=== PATIENT | female | born 1945 | race Caucasian/White ===

== ENCOUNTER 2019-04-04 02:26 | Inpatient (IN) | payer MEDICARE, OTHER, SELFPAY ==
[2019-04-04] VITALS (12 sets, daily range): BP systolic 114–198; BP diastolic 59–116; PULSE 65–83; RESP 18–20; TEMP 36.6–36.9; O2SAT 94–98; BMI 29.0
--- NOTE | 2019-04-04 02:32 | ED_ITS ---
Entered by Jeana Ware, acting as scribe for Gareth Messina DO HPI - Abdominal Pain General: Chief Complaint: Abdominal Pain Stated Complaint: abdomen pain Time Seen by Provider: 04/04/19 02:30 Source: patient Mode of arrival: wheelchair Limitations: no limitations History of Present Illness: HPI narrative: 74 yo f came to the er with spouse for abd pain. Onset was 4 hours ago. Pt states that whole abd along with epigastic. Pt states that she has a colostomy. Pt states that she has not had much output out of the colostomy. Pt states that she has had some nausea MD elicited complaint: abdominal pain Onset (ago): hour(s) (4 hours ago) Location: Epigastric, LUQ, RUQ, RLQ and LLQ Associated Symptoms: Reports nausea and vomiting; Denies chills, dysuria, fever(s), hematochezia, hematuria and melena Review of Systems Const: Denies: fever or chills Eyes: Denies: change in vision or blurry vision ENMT: Denies: painful swallowing, swelling of lips/tongue, bleeding gums, d ental pain, Change in hearing, nose bleeds, post nasal drip or facial/sinus pain Card: Denies: chest pain, palpitations, irregular heart rhythm, edema, swelling of feet/ankles, shortness of breath on exertion or shortness of breath when lying down Resp: Denies: shortness of breath, productive cough, non-productive cough or wheezing GI: Reports: nausea and vomiting; Denies: blood in stool or black tarry stool : Denies: painful urination or blood in urine Musc: Denies: neck pain, back pain, redness or joint warmth Skin/Breast: Denies: rash, itching or redness Neuro: Denies: headache, dizziness, vertigo, confusion or seizure-like activity Psych: Denies: anxiety, visual hallucinations or auditory hallucinations PFSH ED PFSH: Statuses (acute, chronic, etc) shown below reflect problem list status as previously entered and may not be historically accurate Medical History (Updated 04/04/19 @ 05:49 by Armando Downey MD) Colonic diverticular abscess (Acute) Coronary disease (Acute) Diabetes (Acute) GERD (gastroesophageal reflux disease) (Acute) Gout (Acute) Hypertension (Acute) Migraine (Acute) Myocardial infarction (Acute) Necrotizing fasciitis (Acute) Osteoarthritis (Acute) Pericarditis (Acute) Scleroderma (Acute) Surgical History (Updated 04/04/19 @ 05:49 by Armando Downey MD) H/O colectomy (Acute) S/P dilatation of esophageal stricture (Acute) S/P ANH-BSO (Acute) Family History (Updated 04/04/19 @ 05:50 by Armando Downey MD) Mother Congestive heart failure Social History (Updated 04/04/19 @ 05:51 by Armando Downey MD) Smoking and tobacco status: former smoker Alcohol intake: never Substance/Drug Use: never Physical Exam Const: GENERAL APPEARANCE: well developed ORIENTATION/CONSCIOUSNESS: Yes oriented to person, Yes oriented to place and Yes oriented to time HENMT: COMMON NORMALS: normocephalic, external ears normal and external nose normal HEAD & SCALP: normocephalic; no scalp tenderness FACE & SINUS: normal facial exam NOSE: external nose normal and no nasal discharge EXTERNAL EAR: Yes external ears normal Eye: COMMON NORMALS: PERRL, EOMs intact bilaterally and conjunctivae normal EYELID: eyelids normal CONJUNCTIVA: Yes conjunctivae normal PUPIL: Yes PERRL Neck/C-Spine: COMMON NORMALS: full ROM GENERAL: No tracheal deviation Chest: COMMONS NORMALS: inspection of chest normal CHEST: No tenderness Resp: COMMON NORMALS: clear to auscultation bilaterally EFFORT & INSPECTION: No tachypneic, No respiratory distress, No retractions, No uses accessory muscles and No tracheal deviation AUSCULTATION: clear to auscultation bilaterally, no rhonchi, no wheezes and lung sounds not diminished Cardio: COMMON NORMALS: regular rate and regular rhythm RATE: regular rate RHYTHM: regular rhythm HEART SOUNDS: no murmurs PERIPHERAL PULSES: radial pulses present GI: INSPECTION: Yes abdominal distension AUSCULTATION: No hyperactive bowel sounds and No hypoactive bowel sounds PALPATION: Yes tender, Yes guarding and No rigid PERCUSSION: no dullness to percussion and no tympanic to percussion : COMMON NORMALS: Yes no CVA tenderness BLADDER/KIDNEY EXAM: Yes no CVA tenderness Back/Pelvis: COMMON NORMALS: no CVA tenderness Neuro: SENSORIUM/ORIENTATION: Yes oriented to person, Yes oriented to place and Yes oriented to time Psych: COMMON NORMALS: mental status grossly normal Skin: COMMON NORMALS: no rashes or lesions noted GENERAL SKIN EXAM: no rashes or lesions noted Course ED course: 74-year-old female presents with significant belly pain, vomiting. She has a mild leukocytosis. Onset was sudden. She has a history of abdominal problems with diverticulitis requiring hemicolectomy and colostomy. No blood in the output. CT reveals multiple fluid-filled loops of small bowel with decompressed small bowel loops seen distally which could mean early obstruction. An NG tube was placed. She required multiple doses of pain and nausea medication in the ER. She will be admitted Vital Signs: Vital signs: Vital Signs Temperature 98.1 F 04/04/19 02:32 Pulse Rate 83 04/04/19 02:32 Respiratory Rate 18 04/04/19 06:10 Blood Pressure 196/78 04/04/19 06:10 Pulse Oximetry 98 04/04/19 06:10 MDM - Abdominal Pain Lab Data: Labs: Lab Results 04/04/19 04/04/19 Range/Units 02:49 02:49 WBC 10.6 H (4.0-10.0) 10^3/ uL RBC 5.44 H (4.1-5.3) 10^6/u L Hgb 16.6 H (11.5-15.3) g/dL Hct 49.4 H (37.0-47.0) % MCV 90.8 (81-99) fL MCH 30.5 (28.0-34.0) pg MCHC 33.6 (30.0-36.0) g/dL RDW 11.5 L (12.1-15.1) % Plt Count 255 (130-400) 10^3/c mm MPV 10.7 H (7.4-10.4) fL Neut % (Auto) 60.4 % Lymph % (Auto) 28.8 % Twiggs % (Auto) 7.3 % Eos % (Auto) 2.5 % Baso % (Auto) 0.5 % Neut # (Auto) 6.4 (1.8-7.7) 10^3/u L Lymph # (Auto) 3.1 (0.8-4.8) 10^3/u L Twiggs # (Auto) 0.8 (0.2-0.9) 10^3/u L Eos # (Auto) 0.3 (0.0-0.8) 10^3/u L Baso # (Auto) 0.1 (0.0-0.1) 10^3/u L Nucleated RBC % (a uto) 0 % Nucleated RBCs # 0.0 /100WBC Sodium 142 (136-145) mmol/L Potassium 3.7 (3.5-5.1) mmol/L Chloride 98 (98-107) mmol/L Carbon Dioxide 28 (22-29) mmol/L Anion Gap 19.7 H (5-19) BUN 16 (8-23) mg/dL Creatinine 0.9 (0.5-0.9) mg/dL Glucose 206 H (74-106) mg/dL Calcium 11.0 H (8.5-10.5) mg/dL Total Bilirubin 0.8 (0.15-1.2) mg/dL AST 19 (0-32) U/L ALT 13 (0-33) U/L Alkaline Phosphata se 75 (35-105) IU/L Total Protein 7.8 (6.6-8.7) g/dL Albumin 4.9 (3.5-5.2) g/dL Globulin 2.9 (1.3-4.6) g/dL Lipase 27 (13-60) U/L Imaging Data ^: CT Abd/Pel: Radiologist's impression: [place] [address] CT Scan Report Signed Patient: Ninoska Duffy #: [id number] : 7At#:[id number] Age/Sex: 74 / FADM Date: 04/04/19 Loc: ERRoom/Bed: Attending Dr: Ordering Provider/Ordering MD: Gareth Messina DO Date of Service: 04/04/19 Procedure(s): CT abdomen pelvis w con* [id number] Accession Number(s): [id number] Report Number: [id number] PROCEDURE INFORMATION: Exam: CT Abdomen And Pelvis With Contrast Exam date and time: 04/04/2019 4:05 AM Age: 74 years old Clinical indication: Nausea and vomiting; Abdominal pain; Acute; Prior surgery; Surgery date: 6+ months; Surgery type: Cholecystectomy, appendectomy, hysterectomy, colostomy, hernia repair. ; Additional info: Abd pain TECHNIQUE: Imaging protocol: Computed tomography of the abdomen and pelvis with intravenous contrast. Total DLP: 1127.95 mGy-cm Radiation optimization: All CT scans at this facility use at least one of these dose optimization techniques: automated exposure control; mA and/or kV adjustment per patient size (includes targeted exams where dose is matched to clinical indication); or iterative reconstruction. Contrast material: OMNI 300; Contrast volume: 95 ml; Contrast route: 20G; COMPARISON: CT abdomen pelvis w con* [id number] 01/20/2018 9:26 PM FINDINGS: Mediastinum: There is a small hiatal hernia present. Liver: Normal. No mass. Gallbladder and bile ducts: Status post cholecystectomy. There is intra and extrahepatic biliary dilatation, the common bile duct measuring 12.4 mm in its midportion tapering to normal caliber near the ampulla. Pancreas: Normal. No ductal dilation. Spleen: Calcifications are seen within the spleen compatible with calcified granulomas. Adrenals: Normal. No mass. Kidneys and ureters: There is a 4.2 mm hypoattenuation cystic lesions seen in the left kidney likely representing a simple cyst. Stomach and bowel: There is a colostomy seen in the left anterior flank. There are nondilated fluid-filled loops of small bowel seen within the abdomen, findings could represent ileus. Some desiccated bowel contents are seen within loops of small bowel in the lower abdomen possibly representing small bowel stasis and enteritis as well. There is several decompressed loops of small bowel seen distally. A partial small bowel obstruction cannot be entirely excluded. Appendix: No evidence of appendicitis. Intraperitoneal space: Unremarkable. No free air. No significant fluid collection. Vasculature: Unremarkable. No abdominal aortic aneurysm. Lymph nodes: Unremarkable. No enlarged lymph nodes. Bladder: Unremarkable as visualized. Reproductive: Unremarkable as visualized. Bones/joints: Unremarkable. No acute fracture. Soft tissues: Unremarkable. CT/CT abdomen pelvis w con* [id number] IMPRESSION: 1. There are nondilated fluid-filled loops of small bowel present within the abdomen, findings could represent ileus. Additionally, there are several loops of nondilated small bowel containing desiccated bowel contents, findings that may represent small bowel stasis. There are decompressed small bowel loops seen distally as well and a partial small bowel obstruction cannot be entirely excluded. 2. Tiny simple appearing left renal cyst measuring 4.2 mm. No further workup needed. 3. Small hiatal hernia 4. Stable colostomy seen in the left anterior flank. COMMENT: Consistent with the [employer]'s Incidental Findings Committee white paper (J Am Patricia Radiol 2018): Any incidental cystic renal lesion classified in this report as too small to characterize or simple appearing is likely a benign cyst. No follow-up imaging is recommended for these lesions per consensus recommendations based on imaging criteria. Radiation Dose CTDIVOL = (mGy): DLP = 1127.95 (mGy-cm) Dictated By:Jann Morrison MD Signed By:Jann Morrison MDSigned Date/Time:04/04/19500 DD/ 050 Discharge Plan Discharge Patient Disposition: Admitted As Inpatient Admit Provider: Armando Downey Clinical Impression: Small bowel obstruction Condition: Stable Referrals: Sharita Benjamin MD [Family Provider] - Discharge Date/Time: 04/04/19 06:35 Coding Level of Care Code ED Steward/Stewardess Deck for Chg Fwd The documentation recorded by the Chaz elise Stephanie Lyn, accurately reflects the service I personally performed and the decisions made by Siddharth prado Jeremy John, DO Apr 04, 2019 02:26
--- NOTE | 2019-04-04 02:45 | CTR_ITS ---
PROCEDURE INFORMATION: Exam: CT Abdomen And Pelvis With Contrast Exam date and time: 04/04/2019 4:05 AM Age: 74 years old Clinical indication: Nausea and vomiting; Abdominal pain; Acute; Prior surgery; Surgery date: 6+ months; Surgery type: Cholecystectomy, appendectomy, hysterectomy, colostomy, hernia repair. ; Additional info: Abd pain TECHNIQUE: Imaging protocol: Computed tomography of the abdomen and pelvis with intravenous contrast. Total DLP: 1127.95 mGy-cm Radiation optimization: All CT scans at this facility use at least one of these dose optimization techniques: automated exposure control; mA and/or kV adjustment per patient size (includes targeted exams where dose is matched to clinical indication); or iterative reconstruction. Contrast material: OMNI 300; Contrast volume: 95 ml; Contrast route: 20G; COMPARISON: CT abdomen pelvis w con* [id number] 01/20/2018 9:26 PM FINDINGS: Mediastinum: There is a small hiatal hernia present. Liver: Normal. No mass. Gallbladder and bile ducts: Status post cholecystectomy. There is intra and extrahepatic biliary dilatation, the common bile duct measuring 12.4 mm in its midportion tapering to normal caliber near the ampulla. Pancreas: Normal. No ductal dilation. Spleen: Calcifications are seen within the spleen compatible with calcified granulomas. Adrenals: Normal. No mass. Kidneys and ureters: There is a 4.2 mm hypoattenuation cystic lesions seen in the left kidney likely representing a simple cyst. Stomach and bowel: There is a colostomy seen in the left anterior flank. There are nondilated fluid-filled loops of small bowel seen within the abdomen, findings could represent ileus. Some desiccated bowel contents are seen within loops of small bowel in the lower abdomen possibly representing small bowel stasis and enteritis as well. There is several decompressed loops of small bowel seen distally. A partial small bowel obstruction cannot be entirely excluded. Appendix: No evidence of appendicitis. Intraperitoneal space: Unremarkable. No free air. No significant fluid collection. Vasculature: Unremarkable. No abdominal aortic aneurysm. Lymph nodes: Unremarkable. No enlarged lymph nodes. Bladder: Unremarkable as visualized. Reproductive: Unremarkable as visualized. Bones/joints: Unremarkable. No acute fracture. Soft tissues: Unremarkable. CT/CT abdomen pelvis w con* [id number] IMPRESSION: 1. There are nondilated fluid-filled loops of small bowel present within the abdomen, findings could represent ileus. Additionally, there are several loops of nondilated small bowel containing desiccated bowel contents, findings that may represent small bowel stasis. There are decompressed small bowel loops seen distally as well and a partial small bowel obstruction cannot be entirely excluded. 2. Tiny simple appearing left renal cyst measuring 4.2 mm. No further workup needed. 3. Small hiatal hernia 4. Stable colostomy seen in the left anterior flank. COMMENT: Consistent with the [employer]'s Incidental Findings Committee white paper (J Am Patricia Radiol 2018): Any incidental cystic renal lesion classified in this report as too small to characterize or simple appearing is likely a benign cyst. No follow-up imaging is recommended for these lesions per consensus recommendations based on imaging criteria. Radiation Dose CTDIVOL = (mGy): DLP = 1127.95 (mGy-cm)
[2019-04-04] MEDS: HYDROmorphone 1 mg/mL INJ 1 mL IVP ×3 (02:51→05:18)
[2019-04-04] MEDS: ondansetron 2 mg/ML SDV 2 mL 4 MG IVP ×2 (02:51→04:09)
[2019-04-04 02:52] LABS: Basophils # 0.1 10^3/uL (0.0-0.1); Basophils % 0.5 %; Eosinophils # 0.3 10^3/uL (0.0-0.8); Eosinophils % 2.5 %; Hematocrit 49.4 % (37.0-47.0); Hemoglobin 16.6 g/dL (11.5-15.3); Lymphocytes # 3.1 10^3/uL (0.8-4.8); Lymphocytes % 28.8 %; Mean Corpuscular HGB Conc 33.6 g/dL (30.0-36.0); Mean Corpuscular Hemoglobin 30.5 pg (28.0-34.0); Mean Corpuscular Volume 90.8 fL (81-99); Mean Platelet Volume 10.7 fL (7.4-10.4); Monocytes # 0.8 10^3/uL (0.2-0.9); Monocytes % 7.3 %; Neutrophils # 6.4 10^3/uL (1.8-7.7); Neutrophils % 60.4 %; Nucleated Red Blood Cells % 0 %; Platelet Count 255 10^3/cmm (130-400); Red Blood Count 5.44 10^6/uL (4.1-5.3); Red Cell Distribution Width 11.5 % (12.1-15.1); White Blood Count 10.6 10^3/uL (4.0-10.0)
[2019-04-04] MEDS: sodium chloride 0.9% 1,000 ML 999 ML IV (02:52)
[2019-04-04 03:11] LABS: Alanine Aminotransferase 13 U/L (0-33); Albumin Level 4.9 g/dL (3.5-5.2); Alkaline Phosphatase 75 IU/L (35-105); Anion Gap 19.7 (5-19); Aspartate Amino Transferase 19 U/L (0-32); Blood Urea Nitrogen 16 mg/dL (8-23); Carbon Dioxide 28 mmol/L (22-29); Chloride 98 mmol/L (98-107); Globulin 2.9 g/dL (1.3-4.6); Glucose 206 mg/dL (74-106); Lipase 27 U/L (13-60); Potassium 3.7 mmol/L (3.5-5.1); Sodium 142 mmol/L (136-145); Total Bilirubin 0.8 mg/dL (0.15-1.2); Total Protein 7.8 g/dL (6.6-8.7)
[2019-04-04] MEDS: iohexol 300 mg/mL 100 mL Btl IV (04:35)
[2019-04-04] MEDS: promethazine 25 mg/mL SDV 1 mL IM (05:10)
--- NOTE | 2019-04-04 05:42 | PM.HP ---
Providers/Chief Complaint Chief Complaint: abdomen pain History of Present Illness Anju Duffy is a 74 year old female who carries diagnosis of extensive abdominal surgeries, scleroderma, diverticular abscess status post colectomy (further complicated with necrotizing fasciitis) came in with chief complaint of abdominal pain nausea and vomiting. Patient is stating that for last 1 to 2 weeks she was experiencing epigastric discomfort, she took Tums which relieved her symptoms to some extent, she has been trying to drink a lot of fluid along with laxatives and stool softeners and tries to monitor output from her colostomy. Last night after she ate cereal around 6 PM she started having sudden onset of epigastric pain followed with nausea and vomiting x5. She also noticed that output from her colostomy bag is less liquidy in consistency and it is smaller in quantity (he normally empties 5-6 times a day). She denies any dysuria, chest pain, shortness of breath. Her last admission was also secondary to partial small obstruction and at that time lactulose flushed from colostomy and helped relieve her symptoms. Diagnostics in ER showed partial ileus with desiccated stool and small bowel. Currently patient has NG tube, no active symptoms of abdominal pain or vomiting She is hypertensive Review of Systems Const: Denies: fever, chills, body aches, change in appetite or change in weight Eyes: Denies: change in vision ENMT: Reports: throat pain Card: Denies: chest pain Resp: Denies: shortness of breath GI: Reports: abdominal pain, nausea, vomiting, cramping and change in stool character; Denies: vomiting blood, coffee grounds in vomit, difficulty swallowing or constipation : Denies: flank pain Musc: Denies: neck pain Skin/Breast: Denies: rash Neuro: Denies: headache Psych: Denies: anxiety Endo: Denies: excessive urination Juan Francisco/Lymph: Denies: easy bruising All/Imm: Denies: hives Medications/Allergies Allergies Allergy/AdvReac Type Severity Reaction Status Date / Time Latex, Natural Rubber Allergy ALGY-Rash Verified 04/04/19 02:39 PFSH Acute PFSH: Statuses (acute, chronic, etc) shown below reflect problem list status as previously entered and may not be historically accurate Medical History (Updated 04/04/19 @ 05:49 by Armando Downey MD) Colonic diverticular abscess (Acute) Coronary disease (Acute) Diabetes (Acute) GERD (gastroesophageal reflux disease) (Acute) Gout (Acute) Hypertension (Acute) Migraine (Acute) Myocardial infarction (Acute) Necrotizing fasciitis (Acute) Osteoarthritis (Acute) Pericarditis (Acute) Scleroderma (Acute) Surgical History (Updated 04/04/19 @ 05:49 by Armando Downey MD) H/O colectomy (Acute) S/P dilatation of esophageal stricture (Acute) S/P ANH-BSO (Acute) Family History (Updated 04/04/19 @ 05:50 by Armando Downey MD) Mother Congestive heart failure Social History (Updated 04/04/19 @ 05:51 by Armanod Downey MD) Smoking and tobacco status: former smoker Alcohol intake: never Substance/Drug Use: never Vitals/I&O/Wt Last Vital Signs Temp 98.1 F 04/04/19 02:32 Pulse 83 04/04/19 02:32 Resp 18 04/04/19 05:18 BP 155/73 04/04/19 05:18 Pulse Ox 98 04/04/19 03:38 Weight last 48 hrs Weight 72.121 kg Physical Exam Narrative: EXAM NARRATIVE: Elderly female lying flat in her bed without any active discomfort She has NG tube without any suction in ED Systolic blood pressure 170 millimeters mercury S1, S2 Lungs are clear to auscultation Abdomen, soft, nondistended, mild tenderness around epigastric region, colostomy bag is draining semisolid stool Fungal hyperemic reaction around colostomy site Lower extremity no signs of edema gangrene or ulcer Neurological nonfocal exam EOMI, PERRLA Data : 04/04/19 02:49 04/04/19 02:49 A&P Assessment and plan (1) Partial obstruction of colon: Partial small bowel obstruction Proximal partial obstruction with desiccated stool burden and small bowel without dilated loops distally N.p.o., NG to suction Reglan Considering extensive surgical history differentials would include desiccated stool burden causing proximal obstruction versus adhesions Consult general surgery Hypertensive: Needs medication reconciliation, for now I would use hydralazine IV if systolic blood pressure is below 180mmhg Avoid DVT prophylaxis with Lovenox in case patient goes for any intervention GI prophylaxis: Protonix 40 mg IV every day Fungal hyperemia around colostomy bag: Patient is using antifungal, she does not know the name will bring her medications in few hours She needs medication reconciliation in a.m. Full code Status: Acute Code(s): K56.600 - Partial intestinal obstruction, unspecified as to cause Attestations Medical Necessity Statement*: Anticipating her stay to cross more than 2 midnights because of partial small obstruction Time Spent in Patient Care: 50 Coding Level of Care Code Acute Classroom Monitor for Tad Fwtia Diagnoses Partial obstruction of colon K56.600
[2019-04-04] MEDS: cetacaine Spray 5 gm Can 1 SPRAY TOPICAL (05:59)
[2019-04-04] MEDS: morphine 4 mg/mL SDV 1 mL IVP (08:25)
[2019-04-04] MEDS: dextrose 5%-lactated ringers 1,000 ML 100 ML IV (10:10)
[2019-04-04] MEDS: metoclopramide 5 mg/mL SDV 2 mL IVP (10:20)
[2019-04-04] MEDS: nystatin cream 30 gm 1 APPLIC TOPICAL ×2 (10:21→17:47)
--- NOTE | 2019-04-04 12:53 | PM.PN ---
Subjective Subjective: Interval history: This morning patient states that she still has some abdominal pain, has not had a bowel movement, her colostomy output has decreased, no fevers, chills, nausea, vomiting, NG tube is in place, has orange/yellow output?, States that she feels a bit better, states that she has a dry mouth Vitals/I&O/Wt Last Vital Signs Temp 98.0 F 04/04/19 07:46 Pulse 65 04/04/19 07:46 Resp 20 H 04/04/19 08:25 BP 177/79 04/04/19 07:46 Pulse Ox 98 04/04/19 07:46 Weight last 48 hrs Weight 72.121 kg Physical Exam Const: COMMON NORMALS: no apparent distress and oriented x3 HENMT: COMMON NORMALS: normocephalic HEAD & SCALP: normocephalic Neck/C-Spine: COMMON NORMALS: no JVD Resp: COMMON NORMALS: normal respiratory effort, no retractions, no use of accessory muscles and clear to auscultation bilaterally AUSCULTATION: clear to auscultation bilaterally Cardio: COMMON NORMALS: no JVD, regular rate, regular rhythm, S1 normal heart sound and S2 normal heart sound RATE: regular rate RHYTHM: regular rhythm HEART SOUNDS: S1 normal and S2 normal GI: COMMON NORMALS: soft to palpation INSPECTION: Yes normal to inspection, Yes abdominal distension and Yes ostomy present AUSCULTATION: Yes hypoactive bowel sounds PALPATION: Yes soft and Yes tender Extremity: COMMON NORMALS: normal capillary refill, no clubbing, cyanosis or edema, no calf tenderness and no pedal edema Neuro: COMMON NORMALS: oriented x3 Psych: COMMON NORMALS: mental status grossly normal Data : 04/04/19 02:49 04/04/19 02:49 A&P Assessment and plan (1) Partial obstruction of colon: Partial small bowel obstruction secondary to adhesions from previous surgeries Colostomy in place NG tube in place Plan: -Continue IV hydration -Keep n.p.o. -Pain control nausea control -Monitor NG tube output, output seems yellow-orange? seems feculent. No recent antibiotic use, no recent illness. -Can try bowel stimulants Status: Acute Code(s): K56.600 - Partial intestinal obstruction, unspecified as to cause Attestations Medical Necessity Statement*: Patient requires continued hospitalization due to partial small bowel obstruction Coding Level of Care Code Acute Centerless Grinder Operator for Chg Fwd Diagnoses Partial obstruction of colon K56.600
--- NOTE | 2019-04-04 16:08 | PC.NURSE ---
pt ngt output is orange in appearance with sediment.
[2019-04-04] MEDS: fluconazole premix 200 MG/100 ML PREMIX 100 MG IV (17:46)
[2019-04-04] MEDS: SUMAtriptan 25 mg Tablet PO (20:35)
[2019-04-05] VITALS (8 sets, daily range): BP systolic 95–136; BP diastolic 59–72; PULSE 58–72; RESP 16–20; TEMP 36.3–37.1; O2SAT 93–99
[2019-04-05] MEDS: dextrose 5%-lactated ringers 1,000 ML 100 ML IV ×2 (00:45→11:00)
[2019-04-05 05:53] LABS: Basophils % 0.4 %; Eosinophils # 0.2 10^3/uL (0.0-0.8); Eosinophils % 2.5 %; Hematocrit 42.3 % (37.0-47.0); Hemoglobin 13.8 g/dL (11.5-15.3); Lymphocytes # 2.6 10^3/uL (0.8-4.8); Lymphocytes % 31.8 %; Mean Corpuscular HGB Conc 32.6 g/dL (30.0-36.0); Mean Corpuscular Hemoglobin 30.6 pg (28.0-34.0); Mean Corpuscular Volume 93.8 fL (81-99); Mean Platelet Volume 11.4 fL (7.4-10.4); Monocytes # 0.9 10^3/uL (0.2-0.9); Monocytes % 10.7 %; Neutrophils # 4.5 10^3/uL (1.8-7.7); Neutrophils % 54.2 %; Nucleated Red Blood Cells % 0 %; Platelet Count 203 10^3/cmm (130-400); Red Blood Count 4.51 10^6/uL (4.1-5.3); Red Cell Distribution Width 11.9 % (12.1-15.1); White Blood Count 8.3 10^3/uL (4.0-10.0)
[2019-04-05] MEDS: acetaminophen-codeine 120-12 mg/5 mL UDC 2.5 ML PO (06:07)
[2019-04-05 06:14] LABS: Alanine Aminotransferase 36 U/L (0-33); Albumin Level 3.9 g/dL (3.5-5.2); Alkaline Phosphatase 67 IU/L (35-105); Anion Gap 13.5 (5-19); Aspartate Amino Transferase 36 U/L (0-32); Blood Urea Nitrogen 11 mg/dL (8-23); Calcium 9.6 mg/dL (8.5-10.5); Carbon Dioxide 30 mmol/L (22-29); Chloride 101 mmol/L (98-107); Globulin 2.3 g/dL (1.3-4.6); Glucose 127 mg/dL (74-106); Potassium 3.5 mmol/L (3.5-5.1); Sodium 141 mmol/L (136-145); Total Bilirubin 1.6 mg/dL (0.15-1.2); Total Protein 6.2 g/dL (6.6-8.7)
[2019-04-05] MEDS: hydroCHLOROthiazide 25 mg Tablet 12.5 MG PO (09:07)
[2019-04-05] MEDS: BuSPIRONE 5 mg Tablet PO ×2 (09:07→17:07)
[2019-04-05] MEDS: fluconazole 100 mg Tablet 200 MG PO (09:09)
[2019-04-05] MEDS: magnesium oxide 400 mg tablet PO ×3 (09:10→21:07)
[2019-04-05] MEDS: carvedilol 25 mg Tablet PO ×2 (09:10→17:07)
[2019-04-05] MEDS: acetaminophen 325 mg Tablet 650 MG PO (09:18)
[2019-04-05] MEDS: ondansetron 2 mg/ML SDV 2 mL 4 MG IVP (09:19)
[2019-04-05] MEDS: nystatin cream 30 gm 1 APPLIC TOPICAL ×2 (09:22→17:08)
--- NOTE | 2019-04-05 11:04 | P.PN_ITS ---
Subjective Subjective: Interval history: This morning patient states that she is doing better, abdominal pain is very minimal, no fevers, no chills, she responded well to the milk of magnesia last night, had 350 cc out from the colostomy bag, her NG tube output for the last 24 hours is 650 cc, Vitals/I&O/Wt Last Vital Signs Temp 98.7 F 04/05/19 09:26 Pulse 67 04/05/19 09:26 Resp 18 04/05/19 09:26 BP 125/64 04/05/19 09:26 Pulse Ox 93 04/05/19 09:26 04/04/19 04/05/19 04/05/19 22:59 06:59 14:59 Intake Total 1000.000 / 0145.361 1944.000 / 1500.000 Output Total 800 / 800 650 / 1450 Balance 200.000 / 200.000 -650 / -691.232 7145.000 / 1500.000 Weight last 48 hrs Weight 72.121 kg Physical Exam Const: COMMON NORMALS: no apparent distress and oriented x3 HENMT: COMMON NORMALS: normocephalic HEAD & SCALP: normocephalic Neck/C-Spine: COMMON NORMALS: no JVD Resp: COMMON NORMALS: normal respiratory effort, no retractions, no use of accessory muscles and clear to auscultation bilaterally AUSCULTATION: clear to auscultation bilaterally Cardio: COMMON NORMALS: no JVD, regular rate, regular rhythm, S1 normal heart sound and S2 normal heart sound RATE: regular rate RHYTHM: regular rhythm HEART SOUNDS: S1 normal and S2 normal GI: COMMON NORMALS: normal to inspection, nondistended, normoactive bowel sounds and soft to palpation INSPECTION: Yes normal to inspection, Yes abdominal distension and Yes ostomy present PALPATION: Yes soft and Yes tender Extremity: COMMON NORMALS: normal capillary refill, no clubbing, cyanosis or edema, no calf tenderness and no pedal edema Neuro: COMMON NORMALS: oriented x3 Psych: COMMON NORMALS: mental status grossly normal Data : 04/05/19 05:00 04/05/19 05:00 A&P Assessment and plan (1) Partial obstruction of colon: Partial small bowel obstruction secondary to adhesions from previous surgeries Colostomy in place Remove NG tube, transition to clear liquid diet Plan: -Continue IV hydration -Liquid -Pain control nausea control -Can try bowel stimulants -We will start home hydrochlorothiazide, metoprolol, flucanazole, lisinopril, BuSpar, Ambien Status: Acute Code(s): K56.600 - Partial intestinal obstruction, unspecified as to cause Attestations Medical Necessity Statement*: She requires continued hospitalization due to partial small bowel obstruction Coding Level of Care Code Acute Interior Design Assistant for Chg Fwd Diagnoses Partial obstruction of colon K56.600
--- NOTE | 2019-04-05 12:00 | PC.NURSE ---
Spoke with Dr. Sewell about patient hx diagnosis of DM II, also spoke about patient having hard small bowel out of her colostomy. New orders obtained for accu checks achs, lactulose 20ml per stoma times one.
--- NOTE | 2019-04-05 12:27 | PC.CHAP ---
Pastoral Care Encounter/Spiritual Assessment Type of Contact [] Declined dye automation operator visit [] Patient/Family/Request visit [] Outpatient visit [] Follow-up visit [] Physician referral [] Code/Alert [] Routine visit [] Staff referral [] Actively dying [] Patient sleeping [] Family support [] [] Out of room [] Palliative care [] [] Receiving care in room [] Pre-surgical visit [] Trauma [] Long length of stay [] ICU visit [] Other: Relational/Emotional Strength [x] Patient feels connected with others/family/visitors/staff [] Distress [] Loneliness/isolation [] Abandonment Spirituality of Patient [x] Person of Martha [] Attends Latter Day of their Martha [x] Believes in Prayer [] Reads Bible or Yazidi materials [] There are Spiritual issues to be addressed Powerhouse Attendant Interventions [x] Prayer [x] Active listening [x] Non-anxious presence [x] Spiritual/emotional support [] Crisis/trauma care [] Spiritual counseling [] Bereavement support [] Provided bereavement packet [] Provided Bible/devotional materials [] Provided toy/stuffed animal, coloring book to patient or family member [x] Completed spiritual assessment [] Provided Communion [] Anointing/[place] [] Salvation [] Other: Impact on Illness or Injury [] Angry [] Fearful [] Anxious [] Often cries [] Exhaustion [] Unable to work [] Unable to attend mormonism [] Unable to walk/stand [] Unable to read [] Unable to drive [] Unable to eat/drink [] Unable to sleep [] Unable to be with family [] Other: Summary Powerhouse Attendant prayed with Patient. Time spent with patient 5 minutes.
[2019-04-05] MEDS: lactulose oral liq 20 gm/30 mL UDC PR (13:23)
[2019-04-05] MEDS: magnesium hydroxide 30 mL UDC XX ×2 (16:54→21:07)
[2019-04-05] MEDS: SUMAtriptan 25 mg Tablet PO (23:19)
[2019-04-06] MEDS: dextrose 5%-lactated ringers 1,000 ML 100 ML IV (02:40)
[2019-04-06 04:00] VITALS: BP 110/64; PULSE 58; RESP 24; TEMP 36.7; O2SAT 96
[2019-04-06 06:51] LABS: Glucose Point of Care 119 mg/dL (70-110)
[2019-04-06 07:49] VITALS: BP 111/66; PULSE 62; RESP 18; TEMP 36.9; O2SAT 95
[2019-04-06] MEDS: hydroCHLOROthiazide 25 mg Tablet 12.5 MG PO (08:20)
[2019-04-06] MEDS: magnesium oxide 400 mg tablet PO (08:20)
[2019-04-06] MEDS: fluconazole 100 mg Tablet 200 MG PO (08:20)
[2019-04-06] MEDS: carvedilol 25 mg Tablet PO (08:21)
[2019-04-06] MEDS: BuSPIRONE 5 mg Tablet PO (08:23)
[2019-04-06] MEDS: magnesium hydroxide 30 mL UDC XX (08:24)
[2019-04-06] MEDS: nystatin cream 30 gm 1 APPLIC TOPICAL (08:33)
[2019-04-06 10:03] LABS: Basophils % 0.5 %; Eosinophils # 0.4 10^3/uL (0.0-0.8); Eosinophils % 6.2 %; Hematocrit 40.8 % (37.0-47.0); Lymphocytes # 1.9 10^3/uL (0.8-4.8); Mean Corpuscular HGB Conc 31.9 g/dL (30.0-36.0); Mean Corpuscular Hemoglobin 31.3 pg (28.0-34.0); Mean Corpuscular Volume 98.1 fL (81-99); Mean Platelet Volume 11.6 fL (7.4-10.4); Monocytes # 0.7 10^3/uL (0.2-0.9); Monocytes % 11.2 %; Neutrophils # 3.2 10^3/uL (1.8-7.7); Neutrophils % 51.5 %; Nucleated Red Blood Cells % 0 %; Platelet Count 172 10^3/cmm (130-400); Red Blood Count 4.16 10^6/uL (4.1-5.3); Red Cell Distribution Width 11.5 % (12.1-15.1); White Blood Count 6.3 10^3/uL (4.0-10.0)
[2019-04-06 10:18] LABS: Alanine Aminotransferase 30 U/L (0-33); Albumin Level 3.4 g/dL (3.5-5.2); Alkaline Phosphatase 64 IU/L (35-105); Anion Gap 16.3 (5-19); Aspartate Amino Transferase 27 U/L (0-32); Blood Urea Nitrogen 6 mg/dL (8-23); Carbon Dioxide 24 mmol/L (22-29); Chloride 103 mmol/L (98-107); Globulin 2.4 g/dL (1.3-4.6); Glucose 140 mg/dL (74-106); Magnesium 1.6 mg/dL (1.7-2.3); Phosphorus 3.2 mg/dL (2.5-4.5); Potassium 3.3 mmol/L (3.5-5.1); Sodium 140 mmol/L (136-145); Total Bilirubin 0.9 mg/dL (0.15-1.2); Total Protein 5.8 g/dL (6.6-8.7)
[2019-04-06 10:58] LABS: Glucose Point of Care 123 mg/dL (70-110)
[2019-04-06 11:27] VITALS: BP 104/67; PULSE 62; RESP 18; TEMP 36.4; O2SAT 96
[2019-04-06 12:28] VITALS: BP 104/67; PULSE 62; RESP 18; TEMP 36.4; O2SAT 96
--- NOTE | 2019-04-06 20:01 | PM.DCS ---
Discharge Providers Date of Admission: 04/04/19 05:53 Date of Discharge: 04/06/19 Attending Provider at Admission: Armando Downey MD Attending Provider at Discharge: Gage Sewell MD Diagnoses at Discharge Discharge Diagnosis (1) Partial obstruction of colon: Status: Acute Reason for Visit Reason for Visit: Reason For Visit: abdomen pain Hospital Course Discharge Summary: This is a 74-year-old female with a past medical history of extensive abdominal surgeries, scleroderma, diverticular abscess status post colectomy (further complicated by necrotizing fasciitis) who presents to the emergency room for the chief complaint of abdominal pain, nausea, vomiting. Patient was admitted for partial small bowel obstruction secondary to adhesions from previous surgeries, she was kept n.p.o., had an NG tube placed, received IV hydration, IV electrolytes, she received laxatives through her colostomy. Patient clinically improved, had improved output through her colostomy, NG tube output reduced, and was removed, she is transition from a clear liquid to a general diet, and did well. Patient was discharged with instructions to drink plenty of electrolyte balance fluids, continue milk of molasses 4 times daily with stool softeners twice daily. In addition she was given MiraLAX and lactulose to be used if her colostomy output were to decrease, she would have recurrent abdominal pain. Patient was advised if she were to have abdominal pain, nausea, vomiting, fevers come back to emergency room. Patient is to follow-up with surgery in 1 month. Patient was also advised to follow-up with her primary care provider in 1 month. Physical Exam Const: COMMON NORMALS: no apparent distress and oriented x3 HENMT: COMMON NORMALS: normocephalic HEAD & SCALP: normocephalic Neck/C-Spine: COMMON NORMALS: no JVD Resp: COMMON NORMALS: normal respiratory effort, no retractions, no use of accessory muscles and clear to auscultation bilaterally AUSCULTATION: clear to auscultation bilaterally Cardio: COMMON NORMALS: no JVD, regular rate, regular rhythm, S1 normal heart sound and S2 normal heart sound RATE: regular rate RHYTHM: regular rhythm HEART SOUNDS: S1 normal and S2 normal GI: COMMON NORMALS: normal to inspection, nondistended, normoactive bowel sounds, soft to palpation and non-tender INSPECTION: Yes normal to inspection and Yes ostomy present AUSCULTATION: Yes normoactive bowel sounds PALPATION: Yes soft Extremity: COMMON NORMALS: normal capillary refill, no clubbing, cyanosis or edema, no calf tenderness and no pedal edema Neuro: COMMON NORMALS: oriented x3 Psych: COMMON NORMALS: mental status grossly normal Discharge Data Data Completed and Pending: Completed Studies During Hospitalization Category Date Time Status CT abdomen pelvis w con* [id number] Urge nt Cat Scan 04/04/19 02:45 Completed Pending at discharge Category Date Time Status Clostridium Diffi cile BY PCR Routin e Lab 04/04/19 13:09 Results Enteric Bacterial Panel by PCR Rout ine Lab 04/04/19 13:09 Results Enteric Parasite Panel by PCR Routi ne Lab 04/04/19 13:09 Results Immunochemical Fe jose OCB Routine Lab 04/04/19 13:09 Results Lactoferrin Routi ne Lab 04/04/19 13:09 Results Labs from last 24 hours 04/06/19 04/06/19 04/06/19 10:50 09:11 09:11 WBC 6.3 RBC 4.16 Hgb 13.0 Hct 40.8 MCV 98.1 MCH 31.3 MCHC 31.9 RDW 11.5 L Plt Count 172 MPV 11.6 H Neut % (Auto) 51.5 Lymph % (Auto) 30.0 [place] % (Auto) 11.2 Eos % (Auto) 6.2 Baso % (Auto) 0.5 Neut # (Auto) 3.2 Lymph # (Auto) 1.9 [place] # (Auto) 0.7 Eos # (Auto) 0.4 Baso # (Auto) 0.0 Nucleated RBC % (a uto) 0 Nucleated RBCs # 0.0 Sodium 140 Potassium 3.3 L Chloride 103 Carbon Dioxide 24 Anion Gap 16.3 BUN 6 L Creatinine 0.8 Glucose 140 H POC Glucose 123 Calcium 9.0 Phosphorus 3.2 Magnesium 1.6 L Total Bilirubin 0.9 AST 27 ALT 30 Alkaline Phosphata se 64 Total Protein 5.8 L Albumin 3.4 L Globulin 2.4 04/06/19 06:47 WBC RBC Hgb Hct MCV MCH MCHC RDW Plt Count MPV Neut % (Auto) Lymph % (Auto) [place] % (Auto) Eos % (Auto) Baso % (Auto) Neut # (Auto) Lymph # (Auto) [place] # (Auto) Eos # (Auto) Baso # (Auto) Nucleated RBC % (a uto) Nucleated RBCs # Sodium Potassium Chloride Carbon Dioxide Anion Gap BUN Creatinine Glucose POC Glucose 119 Calcium Phosphorus Magnesium Total Bilirubin AST ALT Alkaline Phosphata se Total Protein Albumin Globulin Vitals: Last Vital Signs Temp 97.5 F L 04/06/19 12:28 Pulse 62 04/06/19 12:28 Resp 18 04/06/19 12:28 BP 104/67 04/06/19 12:28 Pulse Ox 96 04/06/19 12:28 Discharge Plan Discharge Patient Disposition: Home, Self-Care Condition: Stable Prescriptions: New fluconazole 100 mg Tablet 200 mg PO DAILY 30 Days Qty: 1 RF: 0 buspirone 5 mg Tablet 5 mg PO BID 30 Days Qty: 60 RF: 0 carvedilol 25 mg Tablet 25 mg PO BID 30 Days Qty: 60 RF: 0 lisinopril 20 mg Tablet 20 mg PO BID 30 Days Qty: 60 RF: 0 magnesium oxide 400 mg (241.3 mg magnesium) Tablet 400 mg PO TID 30 Days Qty: 90 RF: 0 nystatin 100,000 unit/gram Cream 1 applic topical BID 30 Days Qty: 1 RF: 0 hydrochlorothiazide 25 mg Tablet 12.5 mg PO DAILY 30 Days Qty: 1 RF: 0 zolpidem 5 mg Tablet 5 mg PO BEDTIME PRN (Reason: Anxiety) 30 Days Qty: 1 RF: 0 Lanolin (HPA) 100 % Cream 1 applic topical PRN PRN (Reason: Dryness) 30 Days Qty: 1 RF: 0 Miralax 17 gram/dose powder 17 gm PO DAILY PRN (Reason: constipation) 30 Days Qty: 119 RF: 0 lactulose 20 gram/30 mL solution 20 gm PO DAILY PRN (Reason: constipation) 30 Days Qty: 1200 RF: 0 Milk of Magnesia 400 mg/5 mL Suspension 30 ml PO QID 30 Days Qty: 3600 RF: 0 Klor-Con M20 20 mEq tablet,ER particles/crystals 20 meq PO DAILY 30 Days Qty: 30 RF: 0 Discharge Orders: Discharge Order (Routine); Ordered 04/06/19 Ordered By: Gage Sewell Other Ambulatory Orders: Comprehensive Metabolic Panel (Routine) Timeframe: 1 Week Facility: [facility] - Location: Lab - Main Lab Ordered By: Gage Sewell Referrals: Sharita Benjamin MD [Family Provider] - (You have an appointment with Dr. Benjamin on Apr 10 at 230pm.) Amarjit Mnocada MD [Physician] - 1 month (You have an appointment on Apr 13 at 230pm) Gage Sewell MD [Hospitalist] - 1 month (Call urgent care and make an appointment with Dr. Sewell. [phone] to be seen within the next month.) Discharge Diet: GI Soft Discharge Activity: Resume usual activity Patient Instructions: Dehydration (DC), Soft Diet (GEN), Bowel Obstruction (DC) Activity Restrictions/Additional Instructions: -Please drink plenty of electrolyte balance fluids -Please use milk of magnesia 4 times daily, with home stool softener 2 times daily -If you do not have regular bowel movements through the colostomy, use MiraLAX once daily -If all above interventions fail, can try lactulose orally or through the colostomy -If you have recurrent abdominal pain, nausea, vomiting please come back to the emergency room -Please follow-up with general surgery in 1 month Discharge Date/Time: 04/06/19 12:30 Discharge Attestations Time Spent in Discharge Care*: less than 30 min Quality Metrics Clinical Quality Measures During this hospital stay, did patient experience: None Coding Level of Care Code Acute Shared Services Manager for Chg Fwd Diagnoses Partial obstruction of colon K56.600
== END 2019-04-06 12:30 | disposition home or self-care (01) | DRG 390 ==
LOC: ER 05:48 → MEDSURG 06:16
PROVIDERS: Physician Assistant; Admitting Provider Internal Medicine; Emergency Provider Emergency Medicine; Family Provider Family Medicine; Visit Provider Family Medicine
DX: K56.51 Intestinal adhesions [bands], with partial obstruction (principal); Z91.040 Latex allergy status; I10 Essential (primary) hypertension; K21.9 Gastro-esophageal reflux disease without esophagitis; I25.2 Old myocardial infarction; M19.90 Unspecified osteoarthritis, unspecified site; Z87.891 Personal history of nicotine dependence; Z93.3 Colostomy status; Z90.49 Acquired absence of other specified parts of digestive tract; Z79.899 Other long term (current) drug therapy
CPT/HCPCS: 12345; 36415; 36416; 45915; 74177; 80053; 82274; 82962; 83630; 83690; 83735; 84100; 85025; 87493; 87505; 96372; 96374; 96375; 99282; J1170; J1450; J2270; J2405; J2550; J2765; J7030; Q9967

== ENCOUNTER 2019-09-24 10:42 | Emergency (ER) | payer MEDICARE, OTHER, SELFPAY ==
[2019-09-24 11:24] VITALS: BP 194/86; PULSE 73; RESP 16; TEMP 36.7; O2SAT 99; BMI 29.2
[2019-09-24 12:51] VITALS: RESP 18
--- NOTE | 2019-09-24 13:27 | ED_ITS ---
HPI - Abdominal Pain General: Chief Complaint: Abdominal Pain Stated Complaint: ABD PAIN Time Seen by Provider: 09/24/19 12:25 History of Present Illness: HPI narrative: 74-year-old female in with concerns of decreased output in her ostomy. The patient's had this ostomy long-standing usually functions fine but she said several times now where it seemingly has gotten clogged backed up last time they gave her molasses enema that seemed to work to unclog this. She doesn't have any nausea or vomiting she'll intermittently have some abdominal pain. The patient denies any fever or chills she hasn't any dysuria. About 15 hours and she's had any output in her ostomy currently she has no abdominal pain she is not nauseated nor she vomiting she is just concerned about lack of output in her ostomy. Associated Symptoms: Reports change in bowel habits and constipation; Denies chills, excessive flatus, fever(s), nausea and vomiting Review of Systems General: Reports: 10 or more systems reviewed and unremarkable except in HPI and below Const: Denies: fever(s) or chills Eyes: Denies: change in vision ENMT: Denies: throat pain Card: Denies: chest pain Resp: Denies: dyspnea or productive cough GI: Reports: abdominal pain (Intermittent), constipation and change in bowel habits; Denies: nausea, vomiting or excessive flatus Musc: Denies: neck pain or back pain Skin/Breast: Denies: rash or pruritus PFSH ED PFSH: Medical History Colonic diverticular abscess Coronary disease Diabetes GERD (gastroesophageal reflux disease) Gout Hypertension Migraine Myocardial infarction Necrotizing fasciitis Osteoarthritis Pericarditis Scleroderma Surgical History H/O colectomy S/P dilatation of esophageal stricture S/P ANH-BSO Family History Mother Congestive heart failure Social History Smoking and tobacco status: former smoker Alcohol intake: never Physical Exam Const: COMMON NORMALS: no acute distress, average body habitus, patient oriented x3, no limitations, healthy appearing, alert and well nourished HENMT: COMMON NORMALS: normocephalic HEAD & SCALP: normocephalic Eye: COMMON NORMALS: Equal, round and reactive pupils present, EOMs intact bilaterally and conjunctivae normal CONJUNCTIVA: Yes conjunctivae normal PUPIL: Yes Equal, round and reactive pupils present Neck/C-Spine: COMMON NORMALS: full ROM, no lymphadenopathy, supple, no meningeal signs, no JVD, Thyroid normal and No carotid bruits THYROID: Thyroid normal Chest: COMMONS NORMALS: normal inspection of the chest and normal palpation of entire chest wall Resp: COMMON NORMALS: normal respiratory effort, No retractions, No use of accessory muscles, clear to auscultation bilaterally and percussion normal AUSCULTATION: clear to auscultation bilaterally PERCUSSION: percussion normal Cardio: COMMON NORMALS: no JVD GI: COMMON NORMALS: Normal to inspection, nondistended, normoactive bowel sounds present, Soft to palpation, non-tender, No hepatosplenomegaly present (Ostomy normal in appearance without stool in the bag. ), no masses and no bruits PALPATION: Yes Soft to palpation and Yes No hepatosplenomegaly present (Ostomy normal in appearance without stool in the bag. ) : COMMON NORMALS: Yes no CVA tenderness BLADDER/KIDNEY EXAM: Yes no CVA tenderness Back/Pelvis: COMMON NORMALS: no CVA tenderness Extremity: COMMON NORMALS: normal to inspection, full ROM, capillary refill normal, no joint enlargement, no clubbing, cyanosis or edema, no calf tenderness and no pedal edema Neuro: COMMON NORMALS: patient oriented x3 SENSORIUM/ORIENTATION: Yes alert MENINGEAL SIGNS: Yes no meningeal signs Skin: COMMON NORMALS: no rashes or lesions noted, no wounds, turgor normal, no jaundice, no petechiae and no mottling GENERAL SKIN EXAM: no rashes or lesions noted and turgor normal Course Vital Signs: Vital signs: Vital Signs Temperature 98.0 F 09/24/19 11:24 Pulse Rate 73 09/24/19 13:51 Respiratory Rate 18 09/24/19 14:00 Blood Pressure 138/73 09/24/19 13:51 Pulse Oximetry 98 09/24/19 13:51 MDM - Abdominal Pain MDM Narrative: Medical decision making narrative: 74-year-old female in with decreased output in her ostomy. Patient's had this previously and don't think she is totally obstructed but maybe has some harder stool just at the outlet of her ostomy. Check some routine labs may consider CT scan but at this point will check labs and we may consider an enema. Discharge Plan Discharge Prescriptions: No Action multivitamin Tablet 1 tab PO BEDTIME RF: 0 carvedilol 25 mg tablet 25 mg PO BID RF: 0 Senna-S 8.6-50 mg Tablet 4 tab-cap PO BEDTIME RF: 0 buspirone 10 mg tablet 5 mg PO BID RF: 0 docusate sodium 100 mg Capsule 100 mg PO BID RF: 0 Coding Level of Care Code ED Yarn Texture Machine Operator for Tad Fwd Exam Comprehensive
[2019-09-24 13:51] VITALS: BP 138/73; PULSE 73; RESP 18; O2SAT 98
[2019-09-24 14:00] VITALS: RESP 18
== END 2019-09-24 14:45 | disposition left against medical advice (07) ==
LOC: ER 12:57
PROVIDERS: Emergency Provider Family Medicine; PCP Family Medicine
DX: K94.09 Other complications of colostomy (principal); E11.9 Type 2 diabetes mellitus without complications; I10 Essential (primary) hypertension; I25.2 Old myocardial infarction; Z87.891 Personal history of nicotine dependence
CPT/HCPCS: 12345; 99281; 99282

== ENCOUNTER 2019-10-27 20:53 | Inpatient (IN) | payer MEDICARE, OTHER, SELFPAY ==
[2019-10-27 20:58] VITALS: BP 205/88; PULSE 82; RESP 18; TEMP 36.5; O2SAT 98; BMI 28.0
[2019-10-27 21:16] VITALS: BP 216/84; PULSE 69; RESP 20; O2SAT 97
--- NOTE | 2019-10-27 21:23 | CTR_ITS ---
PROCEDURE INFORMATION: Exam: CT Abdomen And Pelvis With Contrast Exam date and time: 10/27/2019 10:26 PM Age: 74 years old Clinical indication: Nausea; Abdominal pain; Prior surgery; Surgery type: Bowel, colostomy, gb, appy, hyst, hernia; Additional info: Abd pain TECHNIQUE: Imaging protocol: Computed tomography of the abdomen and pelvis with intravenous contrast. Radiation optimization: All CT scans at this facility use at least one of these dose optimization techniques: automated exposure control; mA and/or kV adjustment per patient size (includes targeted exams where dose is matched to clinical indication); or iterative reconstruction. Contrast material: OMNI 300; Contrast volume: 95 ml; Contrast route: INTRAVENOUS (IV); COMPARISON: CT abdomen pelvis w con* [id number] 04/04/2019 4:38 AM RADIATION DOSE METRICS: Total DLP (mGy-cm): 966.27 FINDINGS: Liver: There is no focal abnormality within the liver. Gallbladder and bile ducts: There has been a cholecystectomy. There is mild intrahepatic biliary tract dilatation. Common bile duct is mildly dilated measuring approximately 10 mm in diameter. This is related to the findings of cholecystectomy and not changed from previous. Pancreas: The pancreas is normal. Spleen: The spleen demonstrates punctate calcifications, consistent with remote granulomatous organism exposure. Adrenals: The adrenal glands are normal. Kidneys and ureters: There is a 5 mm simple cyst in the mid left kidney not changed from previous. The right kidney is normal. Stomach and bowel: Colostomy is again seen the left midline not changed from previous. There is moderate fluid dilatation of the stomach and there are nondilated distal small bowel loops as well as nondilated colon. There is also appears to be small bowel feces in loop of small bowel in the lower mid abdomen. The point of transition from dilated to nondilated bowel is not identified, however these findings are worrisome for distal small bowel obstruction. Appendix: Not identified Intraperitoneal space: There is no evidence of free intraperitoneal fluid. Vasculature: The aorta demonstrates mild atherosclerotic calcification. Lymph nodes: Unremarkable. No enlarged lymph nodes. Bladder: Unremarkable as visualized. Reproductive: There has been a hysterectomy. Bones/joints: The lumbar spine demonstrates moderate degenerative changes at multiple levels. Soft tissues: There are postsurgical changes in the anterior abdominal wall of looks to be hernia repair. CT/CT abdomen pelvis w con* [id number] IMPRESSION: Findings worrisome for small bowel obstruction. Radiation Dose CTDIVOL = (mGy): DLP = 966.27 (mGy-cm)
--- NOTE | 2019-10-27 21:28 | ED_ITS ---
HPI - Abdominal Pain General: Chief Complaint: Abdominal Pain Stated Complaint: high bp Time Seen by Provider: 10/27/19 21:20 Source: patient Mode of arrival: ambulatory Limitations: no limitations History of Present Illness: HPI narrative: 74-year-old female who has a history of colostomy and had multiple abdominal surgeries of multiple small bowel obstructions. Patient states that she started having abdominal pain again today and has been feeling nauseous. States pain is sharp in nature. She has had no vomiting but feels like she is in a vomit. She denies any worsening or improving factors. MD elicited complaint: abdominal pain Onset (ago): hour(s) Location: Diffuse Severity: moderate Quality: stabbing Radiation: none Migration to: no migration Exacerbating factors: nothing Relieving factors: nothing Associated Symptoms: Reports nausea; Denies chills, diarrhea, dysuria, fever(s) and vomiting Review of Systems Const: Denies: fever(s), chills, body aches or change in appetite Eyes: Denies: blurry vision or eye discomfort ENMT: Denies: throat pain or dental pain Card: Denies: chest pain Resp: Denies: dyspnea GI: Reports: abdominal pain and nausea; Denies: vomiting or diarrhea : Denies: dysuria Musc: Denies: neck pain or back pain Skin/Breast: Denies: rash Neuro: Denies: headache(s) Psych: Denies: depression Juan Francisco/Lymph: Denies: easy bruising All/Imm: Denies: urticaria PFSH ED PFSH: Medical History Colonic diverticular abscess Coronary disease Diabetes Diet controlled GERD (gastroesophageal reflux disease) Gout Hypertension Migraine Myocardial infarction Necrotizing fasciitis Osteoarthritis Pericarditis Scleroderma Surgical History H/O colectomy H/O hernia repair History of cholecystectomy S/P dilatation of esophageal stricture S/P ANH-BSO Family History Mother Congestive heart failure Social History Smoking and tobacco status: former smoker Alcohol intake: never Physical Exam Const: COMMON NORMALS: no acute distress, patient oriented x3 and healthy appearing HENMT: COMMON NORMALS: normocephalic and atraumatic HEAD & SCALP: normocephalic and atraumatic Eye: COMMON NORMALS: Equal, round and reactive pupils present and EOMs intact bilaterally PUPIL: Yes Equal, round and reactive pupils present Neck/C-Spine: COMMON NORMALS: full ROM and supple Chest: COMMONS NORMALS: normal inspection of the chest and normal palpation of entire chest wall Resp: COMMON NORMALS: normal respiratory effort, No retractions, No use of accessory muscles and clear to auscultation bilaterally AUSCULTATION: clear to auscultation bilaterally Cardio: COMMON NORMALS: regular rate, regular rhythm and No murmurs present (Cardio) RATE: regular rate RHYTHM: regular rhythm GI: COMMON NORMALS: Normal to inspection, nondistended, normoactive bowel sounds present, Soft to palpation and no masses PALPATION: Yes Soft to palpation OTHER: diffuse tenderness Extremity: COMMON NORMALS: normal to inspection and full ROM Neuro: COMMON NORMALS: patient oriented x3, moves all extremities and no focal motor deficits Psych: COMMON NORMALS: mental status grossly normal, Normal thought process present and cooperative THOUGHT PROCESS: Normal thought process present Skin: COMMON NORMALS: no rashes or lesions noted and no wounds GENERAL SKIN EXAM: no rashes or lesions noted Course Vital Signs: Vital signs: Vital Signs Temperature 97.7 F 10/27/19 20:58 Pulse Rate 98 10/27/19 23:14 Respiratory Rate 17 10/27/19 23:14 Blood Pressure 180/82 10/27/19 23:14 Pulse Oximetry 99 10/27/19 23:14 MDM - Abdominal Pain MDM Narrative: Medical decision making narrative: Patient presents with abdominal pain and CT shows a small bowel obstruction. She had an NG tube placed here. I spoke to the hospitalist and will admit. Surgery is also consulted as well. Lab Data: Labs: Lab Results 10/27/19 10/27/19 Range/Units 21:47 21:47 WBC 12.8 H (4.0-10.0) 10^3/ uL RBC 5.58 H (4.1-5.3) 10^6/u L Hgb 16.4 H (11.5-15.3) g/dL Hct 51.6 H (37.0-47.0) % MCV 92.5 (81-99) fL MCH 29.4 (28.0-34.0) pg MCHC 31.8 (30.0-36.0) g/dL RDW 12.6 (12.1-15.1) % Plt Count 204 (130-400) 10^3/c mm MPV 11.0 H (7.4-10.4) fL Neut % (Auto) 67.7 % Lymph % (Auto) 20.4 % Brule % (Auto) 7.0 % Eos % (Auto) 3.9 % Baso % (Auto) 0.5 % Neut # (Auto) 8.63 H (1.8-7.7) 10^3/u L Lymph # (Auto) 2.6 (0.8-4.8) 10^3/u L Brule # (Auto) 0.9 (0.2-0.9) 10^3/u L Eos # (Auto) 0.5 (0.0-0.8) 10^3/u L Baso # (Auto) 0.1 (0.0-0.1) 10^3/u L Nucleated RBC % (a uto) 0 % Nucleated RBCs # 0.0 /100WBC Sodium 142 (136-145) mmol/L Potassium 3.6 (3.5-5.1) mmol/L Chloride 103 (98-107) mmol/L Carbon Dioxide 26 (22-29) mmol/L Anion Gap 16.6 (5-19) BUN 16 (8-23) mg/dL Creatinine 0.9 (0.5-0.9) mg/dL GFR Calculation Not Reportable Glucose 113 (65-115) mg/dL Calculated Osmolal ity 291 (285-295) mOsm/k g Calcium 9.9 (8.5-10.5) mg/dL Total Bilirubin 0.9 (0.15-1.2) mg/dL AST 21 (0-32) U/L ALT 14 (0-33) U/L Alkaline Phosphata se 68 (35-105) IU/L Total Protein 7.0 (6.6-8.7) g/dL Albumin 4.4 (3.5-5.2) g/dL Globulin 2.6 (1.3-4.6) g/dL Lipase 30 (13-60) U/L Imaging Data ^: CT Abd/Pel: Radiologist's impression: [address] [place] [address] CT Scan Report Signed Patient: Anju Duffy Unit #: [id number] : 1945 Age/Sex: 74 / F ADM Date: 10/27/19 Loc: ER Room/Bed: Attending Dr: Ordering Provider/Ordering MD: Austen Martinez MD Date of Service: 10/27/19 Procedure(s): CT abdomen pelvis w con* [id number] Accession Number(s): [id number] Report Number: [id number] PROCEDURE INFORMATION: Exam: CT Abdomen And Pelvis With Contrast Exam date and time: 10/27/2019 10:26 PM Age: 74 years old Clinical indication: Nausea; Abdominal pain; Prior surgery; Surgery type: Bowel, colostomy, gb, appy, hyst, hernia; Additional info: Abd pain TECHNIQUE: Imaging protocol: Computed tomography of the abdomen and pelvis with intravenous contrast. Radiation optimization: All CT scans at this facility use at least one of these dose optimization techniques: automated exposure control; mA and/or kV adjustment per patient size (includes targeted exams where dose is matched to clinical indication); or iterative reconstruction. Contrast material: OMNI 300; Contrast volume: 95 ml; Contrast route: INTRAVENOUS (IV); COMPARISON: CT abdomen pelvis w con* [id number] 04/04/2019 4:38 AM RADIATION DOSE METRICS: Total DLP (mGy-cm): 966.27 FINDINGS: Liver: There is no focal abnormality within the liver. Gallbladder and bile ducts: There has been a cholecystectomy. There is mild intrahepatic biliary tract dilatation. Common bile duct is mildly dilated measuring approximately 10 mm in diameter. This is related to the findings of cholecystectomy and not changed from previous. Pancreas: The pancreas is normal. Spleen: The spleen demonstrates punctate calcifications, consistent with remote granulomatous organism exposure. Adrenals: The adrenal glands are normal. Kidneys and ureters: There is a 5 mm simple cyst in the mid left kidney not changed from previous. The right kidney is normal. Stomach and bowel: Colostomy is again seen the left midline not changed from previous. There is moderate fluid dilatation of the stomach and there are nondilated distal small bowel loops as well as nondilated colon. There is also appears to be small bowel feces in loop of small bowel in the lower mid abdomen. The point of transition from dilated to nondilated bowel is not identified, however these findings are worrisome for distal small bowel obstruction. Appendix: Not identified Intraperitoneal space: There is no evidence of free intraperitoneal fluid. Vasculature: The aorta demonstrates mild atherosclerotic calcification. Lymph nodes: Unremarkable. No enlarged lymph nodes. Bladder: Unremarkable as visualized. Reproductive: There has been a hysterectomy. Bones/joints: The lumbar spine demonstrates moderate degenerative changes at multiple levels. Soft tissues: There are postsurgical changes in the anterior abdominal wall of looks to be hernia repair. CT/CT abdomen pelvis w con* [id number] IMPRESSION: Findings worrisome for small bowel obstruction. Discharge Plan Discharge Patient Disposition: Admitted As Inpatient Admit Provider: Armando Downey Clinical Impression: Small bowel obstruction Condition: Stable Coding Level of Care Code ED Fitness Floor Attendant for Chg Fwd Exam Comprehensive
[2019-10-27 21:41] VITALS: RESP 16
[2019-10-27] MEDS: hyDRALAzine 20 mg/mL INJ 1 mL 10 MG IVP (21:41)
[2019-10-27] MEDS: ondansetron 2 mg/ML SDV 2 mL 4 MG IVP ×2 (21:41→22:08)
[2019-10-27] MEDS: morphine 4 mg/mL SDV 1 mL IVP (21:41)
[2019-10-27 21:54] LABS: Basophils # 0.1 10^3/uL (0.0-0.1); Basophils % 0.5 %; Eosinophils # 0.5 10^3/uL (0.0-0.8); Eosinophils % 3.9 %; Hematocrit 51.6 % (37.0-47.0); Hemoglobin 16.4 g/dL (11.5-15.3); Lymphocytes # 2.6 10^3/uL (0.8-4.8); Lymphocytes % 20.4 %; Mean Corpuscular HGB Conc 31.8 g/dL (30.0-36.0); Mean Corpuscular Hemoglobin 29.4 pg (28.0-34.0); Mean Corpuscular Volume 92.5 fL (81-99); Monocytes # 0.9 10^3/uL (0.2-0.9); Neutrophils # 8.63 10^3/uL (1.8-7.7); Neutrophils % 67.7 %; Nucleated Red Blood Cells % 0 %; Platelet Count 204 10^3/cmm (130-400); Red Blood Count 5.58 10^6/uL (4.1-5.3); Red Cell Distribution Width 12.6 % (12.1-15.1); White Blood Count 12.8 10^3/uL (4.0-10.0)
[2019-10-27 21:57] VITALS: BP 159/74; PULSE 77; RESP 16; O2SAT 97
[2019-10-27 22:09] VITALS: BP 153/72; PULSE 80; RESP 17; O2SAT 97
[2019-10-27 22:12] LABS: Alanine Aminotransferase 14 U/L (0-33); Albumin Level 4.4 g/dL (3.5-5.2); Alkaline Phosphatase 68 IU/L (35-105); Anion Gap 16.6 (5-19); Aspartate Amino Transferase 21 U/L (0-32); Blood Urea Nitrogen 16 mg/dL (8-23); Calcium 9.9 mg/dL (8.5-10.5); Carbon Dioxide 26 mmol/L (22-29); Chloride 103 mmol/L (98-107); Globulin 2.6 g/dL (1.3-4.6); Glucose 113 mg/dL (65-115); Lipase 30 U/L (13-60); Osmolality Calculated 291 mOsm/kg (285-295); Potassium 3.6 mmol/L (3.5-5.1); Sodium 142 mmol/L (136-145); Total Bilirubin 0.9 mg/dL (0.15-1.2)
[2019-10-27] MEDS: iohexol 300 mg/mL 100 mL Btl IV (22:37)
[2019-10-27 23:14] VITALS: BP 180/82; PULSE 98; RESP 17; O2SAT 99
[2019-10-27] MEDS: LORazepam 2 mg/mL INJ 1 mL 1 MG IVP (23:22)
--- NOTE | 2019-10-27 23:52 | P.HP_ITS ---
Providers/Chief Complaint Admitting Physician: Armando Downey MD Primary Care Provider: Sharita Benjamin MD Chief Complaint: high bp History of Present Illness Anju Duffy is a 74 year old female who has history of scleroderma, diverticular abscess status post colectomy, postoperative complication with necrotizing fasciitis, recurrent SBO, coming in today for chief complaint a bdominal pain. Patient is stating that she has had multiple abdominal surgeries since her 20s, she has had recurrent SBO episodes, her last episode was about 6 months ago. Today after her dinner she started experiencing abdominal discomfort and nausea which got worse over period of 2 to 3 hours hence decided to come to the ED for further evaluation, she did not experience any vomiting or high output from her colostomy bag. She is denying orthopnea, PND, chest pain, fever cough or dysuria. Diagnostics in the ER revealed distal SBO with proximal stool burden, at the time of my evaluation patient was feeling better and placement of NG tube to suction. Dr. Miller has been consulted. She had similar episode in March for which she was managed conservatively. Review of Systems Const: Reports: body aches and fatigue; Denies: fever(s) or chills Eyes: Denies: change in vision ENMT: Denies: throat pain Card: Denies: chest pain Resp: Denies: dyspnea GI: Reports: abdominal pain, nausea and constipation; Denies: vomiting or diarrhea : Denies: flank pain Musc: Denies: neck pain Skin/Breast: Denies: rash Neuro: Denies: headache(s) Psych: Reports: anxiety and depression Endo: Denies: polyuria Juan Francisco/Lymph: Denies: easy bruising All/Imm: Denies: urticaria Medications/Allergies Home Medications Medication Instructions Recorded Confirmed Last Taken Type carvedilol 25 mg PO BID 09/24/19 10/27/19 10/27/19 History docusate sodium 100 mg PO BID 09/24/19 10/27/19 10/27/19 History multivitamin 1 tab PO BEDTIME 09/24/19 10/27/19 10/26/19 History sennosides-docusate sodium 4 tab-cap PO BEDTIME 09/24/19 10/27/19 10/26/19 History [Senna-S] buspirone 5 mg tablet 5 mg PO BID PRN #90 tab 09/30/19 10/27/19 10/27/19 Rx hydrochlorothiazide 25 mg tablet 12.5 mg PO DAILY tab 09/30/19 10/27/19 Unknown History lisinopril 20 mg tablet 20 mg PO BID 09/30/19 10/27/19 10/27/19 History ondansetron HCl 4 mg tablet 4 mg PO Q12H PRN #60 tab 09/30/19 10/27/19 10/27/19 Rx sumatriptan succinate 100 mg tablet See Rx Instructions PO .COMPLEX 09/30/19 10/27/19 Unknown History magnesium 500 mg PO DAILY 10/27/19 10/27/19 10/27/19 History Allergies Allergy/AdvReac Type Severity Reaction Status Date / Time Latex, Natural Rubber Allergy ALGY-Rash Verified 09/30/19 14:40 PFSH Acute PFSH: Medical History Colonic diverticular abscess Coronary disease Diabetes Diet controlled GERD (gastroesophageal reflux disease) Gout Hypertension Migraine Myocardial infarction Necrotizing fasciitis Osteoarthritis Pericarditis Scleroderma Surgical History H/O colectomy H/O hernia repair History of cholecystectomy S/P dilatation of esophageal stricture S/P ANH-BSO Family History Mother Congestive heart failure Social History Smoking and tobacco status: former smoker Alcohol intake: never Vitals/I&O/Wt Last Vital Signs Temp 97.7 F 10/27/19 20:58 Pulse 98 10/27/19 23:14 Resp 17 10/27/19 23:14 BP 180/82 10/27/19 23:14 Pulse Ox 99 10/27/19 23:14 Weight last 48 hrs Weight 69.4 kg Physical Exam Narrative: EXAM NARRATIVE: Patient was sleeping when I entered the room On awakening patient was able to give me above-mentioned detail, she was very pleasant to communicate NG to suction with drainage of brown food particles, about 20-30 cc S1, S2 no tachycardia heart failure Abdomen shows colostomy bag with mild hyperemia around it, mild tenderness to de ep palpation around mid epigastric area, sluggish bowel sounds Lower extremity no edema gangrene ulcer EOMI, PERRLA No neurological deficit Lungs are clear to auscultation Patient seems a bit drowsy after opioids Data : 10/27/19 21:47 10/27/19 21:47 A&P Assessment and plan (1) Small bowel obstruction: Status: Acute (2) DM II (diabetes mellitus, type II), controlled: Status: Acute (3) Hypertension: Status: Chronic Additional A&P Information Recurrent small bowel obstruction Patient carries history of scleroderma, last SBO episode was in March which was managed conservatively, currently patient is doing well with NG to suction, potassium 3.6, I would obtain lactic acid, magnesium level Dr. Miller has been notified Clinically patient looks dehydrated which is evident with secondary polycythemia, mild stress leukocytosis, she is not septic I would hydrate her with IV fluids N.p.o. Analgesia Type 2 diabetes: Currently p.o. meds on hold We will start insulin once she starts eating I would avoid adding insulin regimen for now to avoid hypoglycemia Hypertension: P.o. medications on hold Patient is full code DVT prophylaxis: Lovenox N.p.o. Attestations Medical Necessity Statement*: Anticipating her stay to cross more than 2 midnights for recurrent SBO currently doing well on NG to suction regimen Time Spent in Patient Care: (>than 50% of time spent in counselling and/or direct pt care on unit) . 50mins Coding Level of Care Code Acute Telecommunications Linesworker for g Fwd Diagnoses Small bowel obstruction K56.609 DM II (diabetes mellitus, type II), controlled E11.9 Hypertension I10
[2019-10-28 00:09] VITALS: BP 129/74; PULSE 76; RESP 16; TEMP 36.6; O2SAT 96
[2019-10-28] MEDS: phenol oral Spray 177 mL 3 SPRAY MUCOUS MEM (01:38)
[2019-10-28] MEDS: sodium chloride 0.9% 1,000 ML 100 ML IV (02:07)
[2019-10-28] MEDS: dextrose 5%-sod chloride 0.45% 1,000 ML 75 ML IV (02:23)
[2019-10-28 04:00] VITALS: BP 137/74; PULSE 73; RESP 20; TEMP 36.7; O2SAT 97
[2019-10-28 05:01] LABS: Basophils # 0.1 10^3/uL (0.0-0.1); Basophils % 0.5 %; Eosinophils # 0.3 10^3/uL (0.0-0.8); Eosinophils % 3.1 %; Hematocrit 46.6 % (37.0-47.0); Hemoglobin 15.1 g/dL (11.5-15.3); Lymphocytes # 1.5 10^3/uL (0.8-4.8); Lymphocytes % 13.9 %; Mean Corpuscular HGB Conc 32.4 g/dL (30.0-36.0); Mean Corpuscular Hemoglobin 29.7 pg (28.0-34.0); Mean Corpuscular Volume 91.6 fL (81-99); Mean Platelet Volume 11.1 fL (7.4-10.4); Monocytes # 1.1 10^3/uL (0.2-0.9); Monocytes % 9.9 %; Neutrophils # 7.65 10^3/uL (1.8-7.7); Neutrophils % 72.2 %; Nucleated Red Blood Cells % 0 %; Platelet Count 194 10^3/cmm (130-400); Red Blood Count 5.09 10^6/uL (4.1-5.3); Red Cell Distribution Width 12.7 % (12.1-15.1); White Blood Count 10.6 10^3/uL (4.0-10.0)
[2019-10-28] MEDS: ondansetron 2 mg/ML SDV 2 mL 4 MG IVP (05:08)
[2019-10-28 05:22] LABS: Anion Gap 13.5 (5-19); Blood Urea Nitrogen 15 mg/dL (8-23); Calcium 8.7 mg/dL (8.5-10.5); Carbon Dioxide 26 mmol/L (22-29); Chloride 105 mmol/L (98-107); Glucose 151 mg/dL (65-115); Osmolality Calculated 291 mOsm/kg (285-295); Potassium 3.5 mmol/L (3.5-5.1); Sodium 141 mmol/L (136-145)
[2019-10-28 05:46] LABS: Magnesium 1.9 mg/dL (1.7-2.3); Phosphorus 4.1 mg/dL (2.5-4.5)
[2019-10-28 08:00] VITALS: BP 125/67; PULSE 71; RESP 18; TEMP 36.6; O2SAT 94
[2019-10-28] MEDS: enoxaparin 40 mg/0.4 mL Syringe SUBCUT (08:51)
[2019-10-28] MEDS: nystatin powder 15 gm Btl 1 APPLIC TOPICAL (08:51)
--- NOTE | 2019-10-28 09:27 | PM.CONSULT ---
Providers/Reason For Consult Consulting Physican/Specialty*: Loyd Miller MD Reason for Consult*: Bowel obstruction Attending Physician: Neto Moran MD Primary Care Provider: Sharita Benjamin MD History of Present Illness History of Present Illness Chief Complaint: Abdominal pain History of present illness: Ms Anju Duffy is a 74 year old female sense of surgical has history of scleroderma, diverticular abscess status post colectomy, postoperative complication with necrotizing fasciitis, recurrent SBO, presented to the emergency department with history of worsening abdominal pain. Overnight patient did receive appropriate IV fluid resuscitation and she does recall previous episodes of small bowel obstruction, patient is passing gas and having bowel movements and appears to have lots of corn seeds in her colostomy bag, patient denies any fevers chills nausea or vomiting. Patient previous episodes were treated conservatively and on morning rounds patient does feel better and NG fell out. Surgery was consulted for further evaluation potential intervention CT scan of the abdomen and pelvis showed FINDINGS: Liver: There is no focal abnormality within the liver. Gallbladder and bile ducts: There has been a cholecystectomy. There is mild intrahepatic biliary tract dilatation. Common bile duct is mildly dilated measuring approximately 10 mm in diameter. This is related to the findings of cholecystectomy and not changed from previous. Pancreas: The pancreas is normal. Spleen: The spleen demonstrates punctate calcifications, consistent with remote granulomatous organism exposure. Adrenals: The adrenal glands are normal. Kidneys and ureters: There is a 5 mm simple cyst in the mid left kidney not changed from previous. The right kidney is normal. Stomach and bowel: Colostomy is again seen the left midline not changed from previous. There is moderate fluid dilatation of the stomach and there are nondilated distal small bowel loops as well as nondilated colon. There is also appears to be small bowel feces in loop of small bowel in the lower mid abdomen. The point of transition from dilated to nondilated bowel is not identified, however these findings are worrisome for distal small bowel obstruction. Appendix: Not identified Intraperitoneal space: There is no evidence of free intraperitoneal fluid. Vasculature: The aorta demonstrates mild atherosclerotic calcification. Lymph nodes: Unremarkable. No enlarged lymph nodes. Bladder: Unremarkable as visualized. Reproductive: There has been a hysterectomy. Bones/joints: The lumbar spine demonstrates moderate degenerative changes at multiple levels. Soft tissues: There are postsurgical changes in the anterior abdominal wall of looks to be hernia repair. CT/CT abdomen pelvis w con* [id number] IMPRESSION: Findings worrisome for small bowel obstruction. Review of Systems General: Reports: 10 or more systems reviewed and unremarkable except in HPI and below Meds/Allergies Home Medications and Allergies Home Medications Medication Instructions Recorded Confirmed Last Taken Type carvedilol 25 mg PO BID 09/24/19 10/27/19 10/27/19 History docusate sodium 100 mg PO BID 09/24/19 10/27/19 10/27/19 History multivitamin 1 tab PO BEDTIME 09/24/19 10/27/19 10/26/19 History sennosides-docusate sodium 4 tab-cap PO BEDTIME 09/24/19 10/27/19 10/26/19 History [Senna-S] buspirone 5 mg tablet 5 mg PO BID PRN #90 tab 09/30/19 10/27/19 10/27/19 Rx hydrochlorothiazide 25 mg tablet 12.5 mg PO DAILY tab 09/30/19 10/27/19 Unknown History lisinopril 20 mg tablet 20 mg PO BID 09/30/19 10/27/19 10/27/19 History ondansetron HCl 4 mg tablet 4 mg PO Q12H PRN #60 tab 09/30/19 10/27/19 10/27/19 Rx sumatriptan succinate 100 mg tablet See Rx Instructions PO .COMPLEX 09/30/19 10/27/19 Unknown History magnesium 500 mg PO DAILY 10/27/19 10/27/19 10/27/19 History Allergies Allergy/AdvReac Type Severity Reaction Status Date / Time Latex, Natural Rubber Allergy ALGY-Rash Verified 09/30/19 14:40 Current Medications Current Medications Generic Name Dose Route Start Last Admin Trade Name Freq PRN Reason Stop Dose Admin Enoxaparin Sodium 40 mg 10/28/19 02:15 10/28/19 08:51 Lovenox SUBCUT 40 mg Q24H ROCIO Administration Dextrose/Sodium Chloride 1,000 mls @ 75 mls/hr 10/28/19 02:15 10/28/19 02:23 Dextrose 5%-Sod Chloride 0.45% IV 75 mls/hr .[id number] ROCIO Administration Nystatin 1 applic 10/28/19 09:00 10/28/19 08:51 Nystatin Powder TOPICAL 1 applic BID ROCIO Administration Ondansetron HCl 4 mg 10/28/19 02:11 10/28/19 05:08 Zofran IVP 4 mg Q6H PRN Administration NAUSEA AND VOMITING Phenol 3 spray 10/28/19 01:18 10/28/19 01:38 Phenaseptic MUCOUS MEM 1 dose Q2H PRN Administration SORE THROAT PFSH Acute PFSH: Medical History Colonic diverticular abscess Coronary disease Diabetes Diet controlled GERD (gastroesophageal reflux disease) Gout Hypertension Migraine Myocardial infarction Necrotizing fasciitis Osteoarthritis Pericarditis Scleroderma Surgical History H/O colectomy H/O hernia repair History of cholecystectomy S/P dilatation of esophageal stricture S/P ANH-BSO Family History Mother Congestive heart failure Social History Smoking and tobacco status: former smoker Alcohol intake: never Vitals/I&O/Wt Last Vital Signs Temp 97.8 F 10/28/19 08:00 Pulse 71 10/28/19 08:00 Resp 18 10/28/19 08:00 BP 125/67 10/28/19 08:00 Pulse Ox 94 10/28/19 08:00 10/27/19 10/28/19 10/28/19 22:59 06:59 14:59 Intake Total 28.333 / 28.333 Output Total 650 / 650 Balance -621.667 / -621.667 Weight last 48 hrs Weight 153 lb Physical Exam Narrative: EXAM NARRATIVE: Patient is conscious alert oriented X3 BMI 28 Head and neck examination PERRLA no masses no cervical lymphadenopathy no jaundice Cardiac examination audible S1-S2 no murmurs no gallops no arrhythmias Chest is clear bilateral,abscence of Rhonchi or wheezes,no surgical emphysema Abdomen nontender nondistended soft no organomegaly guarding or rigidity/no signs of peritonitis Ostomy in place with stool and gas Extremities no cyanosis no clubbing no edema A&P Assessment and plan (1) Small bowel obstruction: After thorough history physical examination and reviewing the chart and images with my personal interpretation I clear the patient got backed up with the quality of food that she ingested yesterday particularly corn, and she is responding to conservative measures. Once patient tolerates p.o. intake can be discharged and follow-up with surgery as needed No acute surgical intervention at this point, it was advised to avoid potential food that can constipate her and to have a food journal Assurance and education All questions have been answered and all concerns have been addressed to patient's satisfaction. Status: Resolved Consult Attestations Medical Necessity Statement: Per Hospitalist service Time Spent in Patient Care: (>than 50% of time spent in counselling and/or direct pt care on unit). Coding Level of Care Code Acute Seam Rubbing Machine Operator for Kennethg Kin Diagnoses Small bowel obstruction K56.609
[2019-10-28 10:56] VITALS: BP 132/55; PULSE 86; RESP 18; TEMP 36.7; O2SAT 96
--- NOTE | 2019-10-28 12:42 | PM.DCS ---
Discharge Providers Date of Admission: 10/27/19 23:13 Date of Discharge: October 28, 2019 Attending Provider at Admission: Armando Downey MD Attending Provider at Discharge: Neto Moran MD Primary Care Provider: Sharita Benjamin MD Diagnoses at Discharge Discharge Diagnosis (1) Small bowel obstruction: Status: Resolved Problem details: This is resolved. She is tolerating clear liquids with no abdominal symptoms. She has output out of her stoma. 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 She came in with abdominal pain. CT scan suggested small bowel obstruction without transition point. An NG was placed, and she was followed overnight. This morning she removed her NG tube, reporting she felt better. She was noted to have significant stool in her stoma. Her exam was normal. She reported she felt back to normal. Clear liquid diet was initiated, and tolerated well. It was thought she could discharge home. We discussed low residue foods. Surgical consult was also obtained which agreed with management. She will follow-up with her primary care provider. Physical Exam Narrative: EXAM NARRATIVE: General exam no apparent distress Cardiovascular regular in rhythm without murmur Lungs clear Abdomen is soft with positive bowel sounds. Stoma noted, pink and viable with stool in bag Extremities no cyanosis clubbing or edema Discharge Data Data Completed and Pending: Completed Studies During Hospitalization Category Date Time Status CT abdomen pelvis w con* [id number] Urge nt Cat Scan 10/27/19 21:23 Completed Labs from last 24 hours 10/28/19 10/28/19 10/28/19 04:46 04:46 04:46 WBC 10.6 H RBC 5.09 Hgb 15.1 Hct 46.6 MCV 91.6 MCH 29.7 MCHC 32.4 RDW 12.7 Plt Count 194 MPV 11.1 H Neut % (Auto) 72.2 Lymph % (Auto) 13.9 [place] % (Auto) 9.9 Eos % (Auto) 3.1 Baso % (Auto) 0.5 Neut # (Auto) 7.65 Lymph # (Auto) 1.5 [place] # (Auto) 1.1 H Eos # (Auto) 0.3 Baso # (Auto) 0.1 Nucleated RBC % (a uto) 0 Nucleated RBCs # 0.0 Sodium 141 Potassium 3.5 Chloride 105 Carbon Dioxide 26 Anion Gap 13.5 BUN 15 Creatinine 0.6 GFR Calculation Not Reportable Glucose 151 H Calculated Osmolal ity 291 Calcium 8.7 Phosphorus 4.1 Magnesium 1.9 Total Bilirubin AST ALT Alkaline Phosphata se Total Protein Albumin Globulin Lipase 10/27/19 10/27/19 21:47 21:47 WBC 12.8 H RBC 5.58 H Hgb 16.4 H Hct 51.6 H MCV 92.5 MCH 29.4 MCHC 31.8 RDW 12.6 Plt Count 204 MPV 11.0 H Neut % (Auto) 67.7 Lymph % (Auto) 20.4 [place] % (Auto) 7.0 Eos % (Auto) 3.9 Baso % (Auto) 0.5 Neut # (Auto) 8.63 H Lymph # (Auto) 2.6 [place] # (Auto) 0.9 Eos # (Auto) 0.5 Baso # (Auto) 0.1 Nucleated RBC % (a uto) 0 Nucleated RBCs # 0.0 Sodium 142 Potassium 3.6 Chloride 103 Carbon Dioxide 26 Anion Gap 16.6 BUN 16 Creatinine 0.9 GFR Calculation Not Reportable Glucose 113 Calculated Osmolal ity 291 Calcium 9.9 Phosphorus Magnesium Total Bilirubin 0.9 AST 21 ALT 14 Alkaline Phosphata se 68 Total Protein 7.0 Albumin 4.4 Globulin 2.6 Lipase 30 Vitals: Last Vital Signs Temp 98.0 F 10/28/19 10:56 Pulse 86 10/28/19 10:56 Resp 18 10/28/19 10:56 BP 132/55 10/28/19 10:56 Pulse Ox 96 10/28/19 10:56 Discharge Plan Discharge Patient Disposition: Home Condition: Stable Prescriptions: Continued lisinopril 20 mg tablet 20 mg PO BID RF: 0 hydrochlorothiazide 25 mg tablet 12.5 mg PO DAILY RF: 0 sumatriptan succinate 100 mg tablet See Rx Instructions PO .COMPLEX RF: 0 ondansetron HCl 4 mg tablet 4 mg PO Q12H PRN (Reason: nausea and vomiting) Qty: 60 RF: 0 magnesium 250 mg Tablet 500 mg PO DAILY RF: 0 multivitamin Tablet 1 tab PO BEDTIME RF: 0 carvedilol 25 mg tablet 25 mg PO BID RF: 0 sennosides-docusate sodium [Senna-S] 8.6-50 mg Tablet 4 tab-cap PO BEDTIME RF: 0 docusate sodium 100 mg Capsule 100 mg PO BID RF: 0 buspirone 5 mg tablet 5 mg PO BID PRN (Reason: anxiety) Qty: 90 RF: 0 Discharge Orders: Discharge Order (Routine); Ordered 10/28/19 Ordered By: Neto Moran Referrals: Krista Zhang DO [Physician] - 4-7 days Discharge Diet: As Directed Discharge Activity: Increase activity as tolerated Activity Restrictions/Additional Instructions: Resume your home medicines. Increase diet as instructed, soft mechanical Discharge Attestations Time Spent in Discharge Care*: greater than 30 min Quality Metrics Clinical Quality Measures During this hospital stay, did patient experience: None Coding Level of Care Code Acute Medical Recruiter for Tad Sanderson Diagnoses Small bowel obstruction K56.609
[2019-10-28 13:17] VITALS: BP 132/55; PULSE 86; RESP 18; TEMP 36.7; O2SAT 96
== END 2019-10-28 13:18 | disposition home or self-care (01) | DRG 390 ==
LOC: ER 23:15 → MEDSURG 23:36
PROVIDERS: Emergency Medicine; Admitting Provider Internal Medicine; PCP Family Medicine; Visit Provider Internal Medicine
DX: K56.609 Unspecified intestinal obstruction, unspecified as to partial versus complete obstruction (principal); I25.10 Atherosclerotic heart disease of native coronary artery without angina pectoris; K21.9 Gastro-esophageal reflux disease without esophagitis; E11.9 Type 2 diabetes mellitus without complications; I10 Essential (primary) hypertension; M19.90 Unspecified osteoarthritis, unspecified site; I25.2 Old myocardial infarction; Z93.3 Colostomy status; Z87.891 Personal history of nicotine dependence
CPT/HCPCS: 12345; 36415; 74177; 80048; 80053; 83690; 83735; 84100; 85025; 96375; 99283; J0360; J1650; J2060; J2270; J2405; J7030; J7799; Q9967

== ENCOUNTER → 2019-11-17 12:03 | Outpatient (BNVA) | payer MEDICARE, OTHER, SELFPAY | PROVIDERS: PCP Family Medicine; Visit Provider Family Medicine | DX: I10 Essential (primary) hypertension (principal); E11.9 Type 2 diabetes mellitus without complications; N64.4 Mastodynia; Z68.26 Body mass index [BMI] 26.0-26.9, adult; F17.211 Nicotine dependence, cigarettes, in remission | CPT/HCPCS: 80053; 80061; 82043; 83036; 85025; 87086 ==

== ENCOUNTER → 2019-12-03 10:04 | Outpatient (BNVA) | payer MEDICARE, OTHER, SELFPAY | PROVIDERS: PCP Family Medicine; Referring Provider Dermatology; Visit Provider Dermatology | DX: B35.4 Tinea corporis (principal) | CPT/HCPCS: 99203 ==

== ENCOUNTER 2020-01-11 14:42 | Outpatient (CLI) | payer MEDICARE, OTHER, SELFPAY ==
[2020-01-11 17:12] LABS: Hemoglobin 9.1 g/dL (11.5-15.3); Mean Corpuscular HGB Conc 31.4 g/dL (30.0-36.0); Mean Corpuscular Hemoglobin 28.3 pg (28.0-34.0); Mean Corpuscular Volume 90.3 fL (81-99); Mean Platelet Volume 10.7 fL (7.4-10.4); Platelet Count 564 10^3/cmm (130-400); Red Blood Count 3.21 10^6/uL (4.1-5.3); Red Cell Distribution Width 14.6 % (12.1-15.1); White Blood Count 16.9 10^3/uL (4.0-10.0)
[2020-01-11 17:50] LABS: Alanine Aminotransferase 17 U/L (0-33); Albumin Level 2.3 g/dL (3.5-5.2); Alkaline Phosphatase 244 IU/L (35-105); Anion Gap 15.1 (5-19); Aspartate Amino Transferase 21 U/L (0-32); Blood Urea Nitrogen 17 mg/dL (8-23); Calcium 8.4 mg/dL (8.5-10.5); Carbon Dioxide 26 mmol/L (22-29); Chloride 97 mmol/L (98-107); Globulin 3.8 g/dL (1.3-4.6); Glucose 84 mg/dL (65-115); Magnesium 1.8 mg/dL (1.7-2.3); Osmolality Calculated 279 mOsm/kg (285-295); Phosphorus 4.1 mg/dL (2.5-4.5); Potassium 4.1 mmol/L (3.5-5.1); Sodium 134 mmol/L (136-145); Total Bilirubin 1.3 mg/dL (0.15-1.2); Total Protein 6.1 g/dL (6.6-8.7)
[2020-01-11 19:30] LABS: Slide Review Slide Review Perform
[2020-01-11 19:33] LABS: Absolute Eosinophils 0.1 10^3/cmm (0.0-0.7); Absolute Segmented Neutrophil 12.8 10/cmm (1.6-7.1); Eosinophils 1 %; Lymphocytes 13 %; Monocytes Absolute 0.5 10^3/cmm (0.1-0.6); Segmented Neutrophils 76 %; Total Cells Counted 100 (0-100)
[2020-01-11 19:34] LABS: Absolute Neutrophil 12.8 10^3/cmm (1.4-6.5); Platelet Estimate Increased (Normal)
== END 2020-01-11 14:43 | disposition home or self-care (01) ==
LOC: LAB 14:45
PROVIDERS: PCP Family Medicine; Visit Provider Colon & Rectal Surgery
DX: K57.92 Diverticulitis of intestine, part unspecified, without perforation or abscess without bleeding (principal)
CPT/HCPCS: 80053; 83735; 84100; 85007; 85025

== ENCOUNTER 2020-01-12 17:52 | Emergency (ER) | payer MEDICARE, OTHER, SELFPAY ==
[2020-01-12 18:02] VITALS: BP 183/156; PULSE 98; RESP 18; TEMP 37; O2SAT 99; BMI 25.6
--- NOTE | 2020-01-12 18:15 | CTR_ITS ---
PROCEDURE INFORMATION: Exam: CT Abdomen And Pelvis Without Contrast Exam date and time: 01/12/2020 6:23 PM Age: 74 years old Clinical indication: Other: Feces leaking into body; Prior surgery; Surgery type: Gb, appy, bowel, hernia, colostomy, colostomy removal, drain; Additional info: Drain dislodged TECHNIQUE: Imaging protocol: Computed tomography of the abdomen and pelvis without contrast. Radiation optimization: All CT scans at this facility use at least one of these dose optimization techniques: automated exposure control; mA and/or kV adjustment per patient size (includes targeted exams where dose is matched to clinical indication); or iterative reconstruction. COMPARISON: CT abdomen pelvis w con* [id number] 10/27/2019 10:31 PM RADIATION DOSE METRICS: Total DLP (mGy-cm): 1032.46 FINDINGS: Tubes, catheters and devices: There is an anterior abdominal wall drainage catheter. Distal tip is in the subcutaneous fat. Lungs: The lung bases appear unremarkable. Liver: The liver is unremarkable in appearance. Gallbladder and bile ducts: The gallbladder is surgically absent. Pancreas: Unremarkable. No ductal dilation. Spleen: Calcified granulomas are noted in the spleen. Adrenal glands: The adrenal glands appear within normal limits. Kidneys and ureters: The kidneys are normal in morphology. No hydronephrosis. No solid mass. Stomach and bowel: No acute gastric abnormality demonstrated. Nondilated small bowel noted. No obstruction of the bowel. Postop changes of the colon. Appendix: No evidence of appendicitis. Intraperitoneal space: There is an air-fluid collection in the anterior peritoneal space, just deep to the surgical mesh at the umbilical level. The collection measures 8 cm transverse by 3 cm AP x 4 cm craniocaudal. Vasculature: The aorta is atherosclerotic. No aortic aneurysm. Lymph nodes: No enlarged lymph nodes. Urinary bladder: Small amount of air in the urinary bladder, likely related to recent catheterization. Reproductive: The uterus is not visualized, consistent with hysterectomy. Bones/joints: Degenerative spine changes are noted. No acute osseous abnormality. Soft tissues: Postop changes of the anterior abdominal wall. CT/CT abdomen pelvis wo con [id number] IMPRESSION: 1. There is an anterior abdominal wall drainage catheter. Distal tip is in the subcutaneous fat. Consider repositioning this catheter. 2. There is an air-fluid collection in the anterior peritoneal space, just deep to the surgical mesh at the umbilical level. The collection measures 8 cm transverse by 3 cm AP x 4 cm craniocaudal. This is consistent with a postop collection. Abscess not excluded. 3. Postop changes of the colon. Nondilated small bowel noted. No obstruction of the bowel. Radiation Dose CTDIVOL = (mGy): DLP = 1032.46 (mGy-cm)
--- NOTE | 2020-01-12 18:25 | ED_ITS ---
HPI - General Adult General: Chief complaint: Abdominal Pain Stated complaint: LEAKING FECES INTO BODY Time Seen by Provider: 01/12/20 18:03 Source: patient Mode of arrival: ambulatory Limitations: no limitations History of Present Illness: HPI narrative: 74-year-old female who presents here stating she has an abdominal drain that she popped a stitch on and had pulled out slightly. She has had multiple abdominal surgeries with adhesions. She had a surgery 20 days ago and has been admitted at [facility] for 16 days and has been home for 4 days. States she moved and popped a stitch on her drain pulled out with entry to. states that the bulb seems to fill with air now and has not been draining as much. She denies any pain or fevers. Associated symptoms: Deny chest pain, dyspnea, headache(s), nausea, rash or vomiting Review of Systems Const: Denies: fever(s), chills, body aches or change in appetite Eyes: Denies: blurry vision or eye discomfort ENMT: Denies: throat pain or dental pain Card: Denies: chest pain Resp: Denies: dyspnea GI: Denies: abdominal pain, nausea, vomiting or diarrhea : Denies: dysuria Musc: Denies: neck pain or back pain Skin/Breast: Denies: rash Neuro: Denies: headache(s) Psych: Denies: depression [place]/Lymph: Denies: easy bruising All/Imm: Denies: urticaria PFSH ED PFSH: Medical History Colonic diverticular abscess Coronary disease Diabetes Diet controlled GERD (gastroesophageal reflux disease) Gout Hypertension Migraine Myocardial infarction Necrotizing fasciitis Osteoarthritis Pericarditis Scleroderma Surgical History H/O colectomy H/O hernia repair History of cholecystectomy S/P dilatation of esophageal stricture S/P ANH-BSO Family History Mother Congestive heart failure Social History Smoking and tobacco status: former smoker Alcohol intake: never Physical Exam Const: COMMON NORMALS: no acute distress, patient oriented x3 and healthy appearing HENMT: COMMON NORMALS: normocephalic and atraumatic HEAD & SCALP: normocephalic and atraumatic Eye: COMMON NORMALS: Equal, round and reactive pupils present and EOMs intact bilaterally PUPIL: Yes Equal, round and reactive pupils present Neck/C-Spine: COMMON NORMALS: full ROM and supple Chest: COMMONS NORMALS: normal inspection of the chest and normal palpation of entire chest wall Resp: COMMON NORMALS: normal respiratory effort, No retractions, No use of accessory muscles and clear to auscultation bilaterally AUSCULTATION: clear to auscultation bilaterally Cardio: COMMON NORMALS: regular rate, regular rhythm and No murmurs present (Cardio) RATE: regular rate RHYTHM: regular rhythm GI: COMMON NORMALS: Soft to palpation, non-tender and no masses PALPATION: Yes Soft to palpation OTHER: Drain in place in the abdomen. Still is currently draining. The suture that was there has been pulled at this time. Extremity: COMMON NORMALS: normal to inspection and full ROM Neuro: COMMON NORMALS: patient oriented x3, moves all extremities and no focal motor deficits Psych: COMMON NORMALS: mental status grossly normal, Normal thought process present and cooperative THOUGHT PROCESS: Normal thought process present Skin: COMMON NORMALS: no rashes or lesions noted and no wounds GENERAL SKIN EXAM: no rashes or lesions noted Course Vital Signs: Vital signs: Vital Signs Temperature 98.6 F 01/12/20 18:02 Pulse Rate 98 01/12/20 18:02 Respiratory Rate 18 01/12/20 18:48 Blood Pressure 183/156 01/12/20 18:02 Pulse Oximetry 99 01/12/20 18:02 MDM - General Adult MDM Narrative: Medical decision making narrative: There presents here after movement of her surgical drain. I spoke to Dr. Del Rio who is on-call for Dr. Oliveira at [facility]. He knows this patient as well. I did go over CT findings with him and he informed me to tape the drain down as it is and she is to go there tomorrow to follow-up in Dr. Tirado's office and likely will have it repositioned by IR. Patient instructed to call first thing in the morning and is to follow-up tomorrow. She is return if worsening. She understands agrees to plan. Imaging Data^: CT Abd/Pel: Attestation: I personally reviewed and interpreted this imaging study as follows: Radiologist's impression: [facility] [address] [place] [address] CT Scan Report Signed Patient: Anju Duffy Unit #: [id number] : [id number] Age/Sex: 74 / F ADM Date: 01/12/20 Loc: ER Room/Bed: Attending Dr: Ordering Provider/Ordering MD: Austen Martinez MD Date of Service: 01/12/20 Procedure(s): CT abdomen pelvis wo con [id number] Accession Number(s): [id number] Report Number: [id number] PROCEDURE INFORMATION: Exam: CT Abdomen And Pelvis Without Contrast Exam date and time: 01/12/2020 6:23 PM Age: 74 years old Clinical indication: Other: Feces leaking into body; Prior surgery; Surgery type: Gb, appy, bowel, hernia, colostomy, colostomy removal, drain; Additional info: Drain dislodged TECHNIQUE: Imaging protocol: Computed tomography of the abdomen and pelvis without contrast. Radiation optimization: All CT scans at this facility use at least one of these dose optimization techniques: automated exposure control; mA and/or kV adjustment per patient size (includes targeted exams where dose is matched to clinical indication); or iterative reconstruction. COMPARISON: CT abdomen pelvis w con* [id number] 10/27/2019 10:31 PM RADIATION DOSE METRICS: Total DLP (mGy-cm): 1032.46 FINDINGS: Tubes, catheters and devices: There is an anterior abdominal wall drainage catheter. Distal tip is in the subcutaneous fat. Lungs: The lung bases appear unremarkable. Liver: The liver is unremarkable in appearance. Gallbladder and bile ducts: The gallbladder is surgically absent. Pancreas: Unremarkable. No ductal dilation. Spleen: Calcified granulomas are noted in the spleen. Adrenal glands: The adrenal glands appear within normal limits. Kidneys and ureters: The kidneys are normal in morphology. No hydronephrosis. No solid mass. Stomach and bowel: No acute gastric abnormality demonstrated. Nondilated small bowel noted. No obstruction of the bowel. Postop changes of the colon. Appendix: No evidence of appendicitis. Intraperitoneal space: There is an air-fluid collection in the anterior peritoneal space, just deep to the surgical mesh at the umbilical level. The collection measures 8 cm transverse by 3 cm AP x 4 cm craniocaudal. Vasculature: The aorta is atherosclerotic. No aortic aneurysm. Lymph nodes: No enlarged lymph nodes. Urinary bladder: Small amount of air in the urinary bladder, likely related to recent catheterization. Reproductive: The uterus is not visualized, consistent with hysterectomy. Bones/joints: Degenerative spine changes are noted. No acute osseous abnormality. Soft tissues: Postop changes of the anterior abdominal wall. CT/CT abdomen pelvis wo con [id number] IMPRESSION: 1. There is an anterior abdominal wall drainage catheter. Distal tip is in the subcutaneous fat. Consider repositioning this catheter. 2. There is an air-fluid collection in the anterior peritoneal space, just deep to the surgical mesh at the umbilical level. The collection measures 8 cm transverse by 3 cm AP x 4 cm craniocaudal. This is consistent with a postop collection. Abscess not excluded. 3. Postop changes of the colon. Nondilated small bowel noted. No obstruction of the bowel. Discharge Plan Discharge Patient Disposition: Home Clinical Impression: Drainage from surgical wound Condition: Stable Prescriptions: No Action lisinopril 20 mg tablet 20 mg PO BID RF: 0 sumatriptan succinate 100 mg tablet See Rx Instructions PO .COMPLEX PRN (Reason: Migraine Headache) RF: 0 ondansetron HCl 4 mg tablet 4 mg PO Q12H PRN (Reason: nausea and vomiting) Qty: 60 RF: 0 acetaminophen 325 mg Tablet 650 mg PO Q6H PRN (Reason: Pain) RF: 0 Aspirin Low Dose 81 mg Tablet,Delayed Release (Dr/Ec) 81 mg PO DAILY RF: 0 oxycodone 5 mg Tablet 5 mg PO Q6H PRN (Reason: Moderate Pain (Scale Score 5-6)) RF: 0 carvedilol 25 mg tablet 25 mg PO BID RF: 0 buspirone 5 mg tablet 5 mg PO BID PRN (Reason: anxiety) Qty: 90 RF: 0 Discharge Orders: Discharge Order (Routine); Ordered 01/12/20 Ordered By: Austen Martinez Referrals: Krista Zhang DO [Primary Care Provider] - Discharge Diet: Advance as tolerated Discharge Activity: Resume usual activity Patient Instructions: [facility] Care (ED) Coding Level of Care Code ED Deputy Program Manager for [facility] Fwd Exam Comprehensive
[2020-01-12 18:48] VITALS: RESP 18
[2020-01-12 19:53] VITALS: RESP 18
--- NOTE | 2020-01-12 20:00 | PC.NURSE ---
Offered to change abdominal dressing, refused and stated can change dressing at home
== END 2020-01-12 19:54 | disposition home or self-care (01) ==
PROVIDERS: Emergency Provider Emergency Medicine; PCP Family Medicine
DX: T81.89XA Other complications of procedures, not elsewhere classified, initial encounter (principal); Z79.82 Long term (current) use of aspirin; E11.9 Type 2 diabetes mellitus without complications; I10 Essential (primary) hypertension; I25.2 Old myocardial infarction; Z87.891 Personal history of nicotine dependence
CPT/HCPCS: 12345; 74176; 99281; 99282

== ENCOUNTER 2020-01-18 12:15 | Outpatient (CLI) | payer MEDICARE, OTHER, SELFPAY ==
[2020-01-18 12:36] LABS: Hematocrit 28.8 % (37.0-47.0); Hemoglobin 8.9 g/dL (11.5-15.3); Mean Corpuscular HGB Conc 30.9 g/dL (30.0-36.0); Mean Corpuscular Hemoglobin 28.1 pg (28.0-34.0); Mean Corpuscular Volume 90.9 fL (81-99); Mean Platelet Volume 10.5 fL (7.4-10.4); Platelet Count 554 10^3/cmm (130-400); Red Blood Count 3.17 10^6/uL (4.1-5.3); Red Cell Distribution Width 14.4 % (12.1-15.1); White Blood Count 8.3 10^3/uL (4.0-10.0)
[2020-01-18 12:48] LABS: Alanine Aminotransferase 17 U/L (0-33); Albumin Level 2.4 g/dL (3.5-5.2); Alkaline Phosphatase 208 IU/L (35-105); Anion Gap 13.2 (5-19); Aspartate Amino Transferase 16 U/L (0-32); Blood Urea Nitrogen 18 mg/dL (8-23); Calcium 8.1 mg/dL (8.5-10.5); Carbon Dioxide 27 mmol/L (22-29); Chloride 101 mmol/L (98-107); Globulin 3.4 g/dL (1.3-4.6); Glucose 150 mg/dL (65-115); Magnesium 1.9 mg/dL (1.7-2.3); Osmolality Calculated 289 mOsm/kg (285-295); Phosphorus 3.9 mg/dL (2.5-4.5); Potassium 4.2 mmol/L (3.5-5.1); Sodium 137 mmol/L (136-145); Total Bilirubin 0.6 mg/dL (0.15-1.2); Total Protein 5.8 g/dL (6.6-8.7)
[2020-01-18 13:41] LABS: Slide Review Slide Review Perform
[2020-01-18 13:53] LABS: Absolute Eosinophils 0.1 10^3/cmm (0.0-0.7); Absolute Segmented Neutrophil 4.5 10/cmm (1.6-7.1); Band Neutrophils Absolute 0.2 10^3/cmm (0.0-1.2); Eosinophils 2 %; Giant Platelets 1+; Lymphocytes 34 %; Monocytes Absolute 0.5 10^3/cmm (0.1-0.6); Segmented Neutrophils 54 %; Total Cells Counted 100 (0-100)
[2020-01-18 13:54] LABS: Absolute Neutrophil 4.7 10^3/cmm (1.4-6.5); Platelet Estimate Increased (Normal)
== END 2020-01-18 12:16 | disposition home or self-care (01) ==
LOC: LAB 12:19
PROVIDERS: PCP Family Medicine; Visit Provider Colon & Rectal Surgery
DX: K57.92 Diverticulitis of intestine, part unspecified, without perforation or abscess without bleeding (principal)
CPT/HCPCS: 80053; 83735; 84100; 85007; 85025

== ENCOUNTER 2020-01-23 12:13 | Emergency (ER) | payer MEDICARE, OTHER, SELFPAY ==
[2020-01-23] VITALS (8 sets, daily range): BP systolic 91–152; BP diastolic 46–74; PULSE 82–98; RESP 18–20; TEMP 37.1; O2SAT 94–100; BMI 25.6
--- NOTE | 2020-01-23 12:35 | ED_ITS ---
HPI - Wound/Laceration General: Chief Complaint: Wound/Laceration Stated Complaint: HOLE IN COLOSTOMY BAG Time Seen by Provider: 01/23/20 12:14 History of Present Illness: HPI narrative: This patient is a 74-year-old female who presents with abdominal pain and drainage from surgical sites. She has a complicated surgical history and was able to give the general details but asked that I wait for her to come to get any specifics of her history. The reason she is here today is that she noted drainage from a new spot on her abdomen. She says her surgical history became a problem about 2 years ago when she developed some sort of blockage of her intestine as a result of adherence to surgical hernia mesh. She required a colostomy due to removal of some intestine at that time. She developed some infectious complications that were successfully treated. About a year later she went back for a takedown of the colostomy and after that has had nothing but problems apparently. Her most recent surgeries have been done by Dr. Cazares at [facility] in [place]. She has several drains in her abdomen and actually has a colostomy bag over one area that is open and draining. It is not a colostomy however, according to the patient. One of the drains is to a BHARTI bulb and this is coming from roughly the left lower quadrant. There is another coming from the suprapubic area but apparently does not involve the bladder. That drain is attached to a large bag which is full of bilious appearing fluid. The new open area is to the right of the umbilicus and is a small hole but actively draining bubbling and greenish- brown fluid. She is having pain mostly in the left lower quadrant. When I took the dressing off and let the new hole drain is when her pain seem to get the worst. Review of records here shows that she was here 10 or 11 days ago after having a drain that became somewhat dislodged. It looks from that record like she only had 1 drain at that time and was supposed to follow-up with Dr. Cazares after that. When her arrives we will get more details of that. Onset (ago): day(s) (New area of drainage today) Location: abdomen Associated symptoms: Reports nausea; Denies chills, fever(s) or vomiting Review of Systems General: Reports: 10 or more systems reviewed and unremarkable except in HPI and below Const: Denies: fever(s), chills, fatigue or malaise Eyes: Denies: change in vision ENMT: Denies: odynophagia Card: Denies: chest pain or swelling of feet/ankles Resp: Denies: dyspnea, productive cough or non-productive cough GI: Reports: abdominal pain, nausea, early satiety (She is on full TPN for nutrition. She does take pills by mouth) and other (She has not had a bowel movement in several months she says. ); Denies: vomiting : Reports: urinary incontinence; Denies: flank pain or difficulty voiding Musc: Denies: neck pain or back pain Skin/Breast: Denies: rash Neuro: Denies: headache(s), numbness in extremities or weakness in extremities Juan Francisco/Lymph: Denies: easy bruising or easy bleeding PFSH ED PFSH: Medical History (Updated 01/23/20 @ 15:38 by Pari Hairston MD) Colonic diverticular abscess Coronary disease Diabetes Diet controlled GERD (gastroesophageal reflux disease) Gout Hypertension Migraine Myocardial infarction Necrotizing fasciitis Osteoarthritis Pericarditis Scleroderma Surgical History H/O colectomy H/O hernia repair History of cholecystectomy S/P dilatation of esophageal stricture S/P ANH-BSO Family History Mother Congestive heart failure Social History Smoking and tobacco status: former smoker Alcohol intake: never Physical Exam Const: COMMON NORMALS: no acute distress, patient oriented x3, no limitations and alert GENERAL APPEARANCE: cooperative and comfortable HENMT: HEAD & SCALP: normal to inspection FACE & SINUS: normal facial exam Eye: GENERAL EYE: appearance normal, both eyes and all related structures Neck/C-Spine: COMMON NORMALS: supple, no meningeal signs and no JVD Chest: COMMONS NORMALS: normal inspection of the chest Resp: COMMON NORMALS: normal respiratory effort, No use of accessory muscles and clear to auscultation bilaterally AUSCULTATION: clear to auscultation bilaterally Cardio: COMMON NORMALS: no JVD, regular rate, regular rhythm and No murmurs present (Cardio) RATE: regular rate RHYTHM: regular rhythm GI: PALPATION: Yes Tenderness to palpation present (GI) (Left lower quadrant) OTHER: See the description in the HPI as part of the abdominal exam. There are multiple surgical scars, multiple drains. There are areas of open drainage on the abdominal wall which I suspect represent fistulae. Back/Pelvis: COMMON NORMALS: thoracic and lumbar spine normal to inspection Extremity: COMMON NORMALS: normal to inspection Neuro: COMMON NORMALS: patient oriented x3, moves all extremities, no focal motor deficits and no sensory deficits noted SENSORIUM/ORIENTATION: Yes alert MENINGEAL SIGNS: Yes no meningeal signs Psych: COMMON NORMALS: mental status grossly normal, cooperative and normal affect Skin: COMMON NORMALS: no rashes or lesions noted and turgor normal GENERAL SKIN EXAM: no rashes or lesions noted and turgor normal Course ED course: I spoke with Dr. Machado about this patient. 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 As her exam is otherwise benign and her labs are otherwise benign we both feel that she is okay to go home. She can follow-up with Dr. Awad as an outpatient. The ER nurse was able to find a solution to the drainage. There was not enough room to put another ostomy bag over the new wound but she was able to adhere a pediatric urine collection bag over the area with some benzoin. She sent the patient home with some of the supplies as well. Vital Signs: Vital signs: Vital Signs Temperature 98.7 F 01/23/20 12:24 Pulse Rate 86 01/23/20 17:05 Respiratory Rate 18 01/23/20 16:31 Blood Pressure 124/56 01/23/20 17:18 Pulse Oximetry 98 01/23/20 17:05 MDM - Wound/Laceration Lab Data: Labs: Lab Results 01/23/20 01/23/20 01/23/20 Range/Units 13:25 13:25 13:25 WBC 11.3 H (4.0-10.0) 10^3/ uL RBC 3.96 L (4.1-5.3) 10^6/u L Hgb 11.3 L (11.5-15.3) g/dL Hct 36.3 L (37.0-47.0) % MCV 91.7 (81-99) fL MCH 28.5 (28.0-34.0) pg MCHC 31.1 (30.0-36.0) g/dL RDW 14.4 (12.1-15.1) % Plt Count 530 H (130-400) 10^3/c mm MPV 9.7 (7.4-10.4) fL Neut % (Auto) 58.5 % Lymph % (Auto) 26.1 % Madison % (Auto) 9.7 % Eos % (Auto) 3.4 % Baso % (Auto) 0.6 % Neut # (Auto) 6.60 (1.8-7.7) 10^3/u L Lymph # (Auto) 2.9 (0.8-4.8) 10^3/u L Madison # (Auto) 1.1 H (0.2-0.9) 10^3/u L Eos # (Auto) 0.4 (0.0-0.8) 10^3/u L Baso # (Auto) 0.1 (0.0-0.1) 10^3/u L Nucleated RBC % (a uto) 0 % Nucleated RBCs # 0.0 /100WBC Sodium 138 (136-145) mmol/L Potassium 4.2 (3.5-5.1) mmol/L Chloride 99 (98-107) mmol/L Carbon Dioxide 28 (22-29) mmol/L Anion Gap 15.2 (5-19) BUN 20 (8-23) mg/dL Creatinine 0.5 (0.5-0.9) mg/dL GFR Calculation Not Reportable Glucose 97 (65-115) mg/dL Calculated Osmolal ity 289 (285-295) mOsm/k g Lactic Acid 1.2 (0.5-2.2) mmol/L Calcium 9.0 (8.5-10.5) mg/dL Magnesium 1.9 (1.7-2.3) mg/dL Total Bilirubin 0.7 (0.15-1.2) mg/dL AST 19 (0-32) U/L ALT 21 (0-33) U/L Alkaline Phosphata se 234 H (35-105) IU/L Total Protein 6.6 (6.6-8.7) g/dL Albumin 3.0 L (3.5-5.2) g/dL Globulin 3.6 (1.3-4.6) g/dL Lipase 30 (13-60) U/L Discharge Plan Discharge Patient Disposition: Home Clinical Impression: Abdominal wall fistula Condition: Stable Prescriptions: No Action lisinopril 20 mg tablet 20 mg PO BID RF: 0 sumatriptan succinate 100 mg tablet See Rx Instructions PO .COMPLEX PRN (Reason: Migraine Headache) RF: 0 ondansetron HCl 4 mg tablet 4 mg PO Q12H PRN (Reason: nausea and vomiting) Qty: 60 RF: 0 acetaminophen 325 mg Tablet 650 mg PO Q6H PRN (Reason: Pain) RF: 0 aspirin [Aspirin Low Dose] 81 mg Tablet,Delayed Release (Dr/Ec) 81 mg PO DAILY RF: 0 oxycodone 5 mg Tablet 5 mg PO Q6H PRN (Reason: Moderate Pain (Scale Score 5-6)) RF: 0 carvedilol 25 mg tablet 25 mg PO BID RF: 0 buspirone 5 mg tablet 5 mg PO BID PRN (Reason: anxiety) Qty: 90 RF: 0 ertapenem 1 gram recon soln See Rx Instructions .ROUTE .COMPLEX RF: 0 TPN Electrolytes See Rx Instructions .ROUTE .COMPLEX RF: 0 Discharge Orders: Discharge Order (Routine); Ordered 01/23/20 Ordered By: Pari Hairston Referrals: Krista Zhang DO [Primary Care Provider] - Discharge Diet: Usual diet Discharge Activity: Resume usual activity Patient Instructions: [facility] Drain Care (ED) Activity Restrictions/Additional Instructions: Continue your IV antibiotics and TPN. Try to keep the ostomy bags over the draining areas if you can. If not then gauze dressings are fine but will need frequent changing. If you develop fever, worse pain, change in the fluid that is draining then please call your surgeon or return to the ER right away. If you call Dr. Cazares's office Saturday they should be able to schedule an appointment for you Saturday. Coding Level of Care Code ED Hand Filer Balance Wheel for Tad Fwtia Exam Comprehensive
[2020-01-23] MEDS: acetaminophen 500 mg Tablet 1000 MG PO (13:05)
[2020-01-23 13:41] LABS: Basophils # 0.1 10^3/uL (0.0-0.1); Basophils % 0.6 %; Eosinophils # 0.4 10^3/uL (0.0-0.8); Eosinophils % 3.4 %; Hematocrit 36.3 % (37.0-47.0); Hemoglobin 11.3 g/dL (11.5-15.3); Lymphocytes # 2.9 10^3/uL (0.8-4.8); Lymphocytes % 26.1 %; Mean Corpuscular HGB Conc 31.1 g/dL (30.0-36.0); Mean Corpuscular Hemoglobin 28.5 pg (28.0-34.0); Mean Corpuscular Volume 91.7 fL (81-99); Mean Platelet Volume 9.7 fL (7.4-10.4); Monocytes # 1.1 10^3/uL (0.2-0.9); Monocytes % 9.7 %; Neutrophils % 58.5 %; Nucleated Red Blood Cells % 0 %; Platelet Count 530 10^3/cmm (130-400); Red Blood Count 3.96 10^6/uL (4.1-5.3); Red Cell Distribution Width 14.4 % (12.1-15.1); White Blood Count 11.3 10^3/uL (4.0-10.0)
--- NOTE | 2020-01-23 13:45 | PC.NURSE ---
With movement there is noted large amount of green/brown drainage from wound/hole to the right abdomen.
[2020-01-23 14:13] LABS: Alanine Aminotransferase 21 U/L (0-33); Alkaline Phosphatase 234 IU/L (35-105); Anion Gap 15.2 (5-19); Aspartate Amino Transferase 19 U/L (0-32); Blood Urea Nitrogen 20 mg/dL (8-23); Carbon Dioxide 28 mmol/L (22-29); Chloride 99 mmol/L (98-107); Globulin 3.6 g/dL (1.3-4.6); Glucose 97 mg/dL (65-115); Lactic Sepsis W/Reflex 1.2 mmol/L (0.5-2.2); Lipase 30 U/L (13-60); Magnesium 1.9 mg/dL (1.7-2.3); Osmolality Calculated 289 mOsm/kg (285-295); Potassium 4.2 mmol/L (3.5-5.1); Sodium 138 mmol/L (136-145); Total Bilirubin 0.7 mg/dL (0.15-1.2); Total Protein 6.6 g/dL (6.6-8.7)
[2020-01-23] MEDS: oxyCODONE 5 mg IR Tab/Cap PO (16:31)
--- NOTE | 2020-01-23 17:00 | PC.NURSE ---
Pediatric urine collection bag used to catch drainage from wound/hole to the right abdomen while preparing pt for discharge. Pt sent home with collection bag in place to collect drainage. Pt sent home with extra supplies to change bag until appointment can be made on Saturday.
== END 2020-01-23 17:10 | disposition home or self-care (01) ==
PROVIDERS: Emergency Provider Emergency Medicine; PCP Family Medicine
DX: K63.2 Fistula of intestine (principal); Z79.82 Long term (current) use of aspirin; E11.9 Type 2 diabetes mellitus without complications; I10 Essential (primary) hypertension; I25.2 Old myocardial infarction; Z87.891 Personal history of nicotine dependence
CPT/HCPCS: 12345; 80053; 83605; 83690; 83735; 85025; 99282; 99283

== ENCOUNTER 2020-01-25 12:54 | Outpatient (RCR) | payer MEDICARE, OTHER, SELFPAY ==
[2020-01-25 13:08] LABS: Basophils # 0.1 10^3/uL (0.0-0.1); Basophils % 0.5 %; Eosinophils # 0.6 10^3/uL (0.0-0.8); Hematocrit 28.7 % (37.0-47.0); Hemoglobin 8.9 g/dL (11.5-15.3); Lymphocytes # 2.6 10^3/uL (0.8-4.8); Lymphocytes % 22.5 %; Mean Corpuscular Hemoglobin 28.3 pg (28.0-34.0); Mean Corpuscular Volume 91.4 fL (81-99); Mean Platelet Volume 10.6 fL (7.4-10.4); Monocytes # 0.9 10^3/uL (0.2-0.9); Monocytes % 7.8 %; Neutrophils # 7.29 10^3/uL (1.8-7.7); Neutrophils % 63.3 %; Nucleated Red Blood Cells % 0 %; Platelet Count 417 10^3/cmm (130-400); Red Blood Count 3.14 10^6/uL (4.1-5.3); Red Cell Distribution Width 14.7 % (12.1-15.1); White Blood Count 11.5 10^3/uL (4.0-10.0)
[2020-01-25 13:24] LABS: Alanine Aminotransferase 17 U/L (0-33); Albumin Level 2.6 g/dL (3.5-5.2); Alkaline Phosphatase 189 IU/L (35-105); Anion Gap 13.1 (5-19); Aspartate Amino Transferase 15 U/L (0-32); Blood Urea Nitrogen 20 mg/dL (8-23); Calcium 8.3 mg/dL (8.5-10.5); Carbon Dioxide 28 mmol/L (22-29); Chloride 101 mmol/L (98-107); Globulin 2.9 g/dL (1.3-4.6); Glucose 95 mg/dL (65-115); Magnesium 1.8 mg/dL (1.7-2.3); Osmolality Calculated 288 mOsm/kg (285-295); Phosphorus 4.3 mg/dL (2.5-4.5); Potassium 4.1 mmol/L (3.5-5.1); Sodium 138 mmol/L (136-145); Total Bilirubin 0.4 mg/dL (0.15-1.2); Total Protein 5.5 g/dL (6.6-8.7)
== END 2020-02-08 23:59 | disposition home or self-care (01) ==
LOC: LAB 12:54
PROVIDERS: PCP Family Medicine; Visit Provider Colon & Rectal Surgery
DX: K57.92 Diverticulitis of intestine, part unspecified, without perforation or abscess without bleeding (principal)
CPT/HCPCS: 80053; 83735; 84100; 85025

== ENCOUNTER 2020-02-01 13:28 | Outpatient (CLI) | payer MEDICARE, OTHER, SELFPAY ==
[2020-02-01 13:44] LABS: Basophils # 0.1 10^3/uL (0.0-0.1); Basophils % 0.7 %; Eosinophils # 0.3 10^3/uL (0.0-0.8); Hematocrit 30.8 % (37.0-47.0); Hemoglobin 9.5 g/dL (11.5-15.3); Lymphocytes # 2.7 10^3/uL (0.8-4.8); Lymphocytes % 24.5 %; Mean Corpuscular HGB Conc 30.8 g/dL (30.0-36.0); Mean Corpuscular Hemoglobin 27.9 pg (28.0-34.0); Mean Corpuscular Volume 90.3 fL (81-99); Mean Platelet Volume 10.9 fL (7.4-10.4); Monocytes # 1.1 10^3/uL (0.2-0.9); Monocytes % 10.1 %; Neutrophils # 6.58 10^3/uL (1.8-7.7); Neutrophils % 60.9 %; Nucleated Red Blood Cells % 0 %; Platelet Count 380 10^3/cmm (130-400); Red Blood Count 3.41 10^6/uL (4.1-5.3); Red Cell Distribution Width 14.4 % (12.1-15.1); White Blood Count 10.8 10^3/uL (4.0-10.0)
[2020-02-01 14:08] LABS: Alanine Aminotransferase 26 U/L (0-33); Alkaline Phosphatase 199 IU/L (35-105); Aspartate Amino Transferase 21 U/L (0-32); Blood Urea Nitrogen 17 mg/dL (8-23); Calcium 8.5 mg/dL (8.5-10.5); Carbon Dioxide 28 mmol/L (22-29); Chloride 102 mmol/L (98-107); Globulin 2.4 g/dL (1.3-4.6); Glucose 107 mg/dL (65-115); Magnesium 1.9 mg/dL (1.7-2.3); Osmolality Calculated 292 mOsm/kg (285-295); Sodium 140 mmol/L (136-145); Total Bilirubin 0.5 mg/dL (0.15-1.2); Total Protein 5.4 g/dL (6.6-8.7)
[2020-02-01 14:13] LABS: Anion Gap 14.2 (5-19); Potassium 4.2 mmol/L (3.5-5.1)
== END 2020-02-01 13:29 | disposition home or self-care (01) ==
LOC: LAB 13:31
PROVIDERS: PCP Family Medicine; Visit Provider Colon & Rectal Surgery
DX: K57.92 Diverticulitis of intestine, part unspecified, without perforation or abscess without bleeding (principal)
CPT/HCPCS: 80053; 83735; 84100; 85025

== ENCOUNTER 2020-02-08 14:07 | Outpatient (CLI) | payer MEDICARE, OTHER, SELFPAY ==
[2020-02-08 14:43] LABS: Basophils % 0.5 %; Eosinophils # 0.5 10^3/uL (0.0-0.8); Eosinophils % 5.5 %; Hematocrit 25.1 % (37.0-47.0); Hemoglobin 7.6 g/dL (11.5-15.3); Lymphocytes # 2.3 10^3/uL (0.8-4.8); Lymphocytes % 27.3 %; Mean Corpuscular HGB Conc 30.3 g/dL (30.0-36.0); Mean Corpuscular Hemoglobin 27.7 pg (28.0-34.0); Mean Corpuscular Volume 91.6 fL (81-99); Monocytes # 0.9 10^3/uL (0.2-0.9); Monocytes % 10.1 %; Neutrophils # 4.73 10^3/uL (1.8-7.7); Neutrophils % 55.9 %; Nucleated Red Blood Cells % 0 %; Platelet Count 270 10^3/cmm (130-400); Red Blood Count 2.74 10^6/uL (4.1-5.3); Red Cell Distribution Width 14.3 % (12.1-15.1); White Blood Count 8.4 10^3/uL (4.0-10.0)
[2020-02-08 15:01] LABS: Alanine Aminotransferase 12 U/L (0-33); Albumin Level 2.5 g/dL (3.5-5.2); Alkaline Phosphatase 135 IU/L (35-105); Blood Urea Nitrogen 17 mg/dL (8-23); Calcium 7.3 mg/dL (8.5-10.5); Carbon Dioxide 24 mmol/L (22-29); Chloride 108 mmol/L (98-107); Globulin 2.7 g/dL (1.3-4.6); Glucose 98 mg/dL (65-115); Magnesium 1.6 mg/dL (1.7-2.3); Osmolality Calculated 294 mOsm/kg (285-295); Phosphorus 3.4 mg/dL (2.5-4.5); Sodium 141 mmol/L (136-145); Total Bilirubin 0.4 mg/dL (0.15-1.2); Total Protein 5.2 g/dL (6.6-8.7)
[2020-02-08 15:03] LABS: Anion Gap 12.4 (5-19); Potassium 3.4 mmol/L (3.5-5.1)
[2020-02-08 15:04] LABS: Aspartate Amino Transferase 15 U/L (0-32)
== END 2020-02-08 14:08 | disposition home or self-care (01) ==
PROVIDERS: PCP Family Medicine; Visit Provider Colon & Rectal Surgery
DX: K57.92 Diverticulitis of intestine, part unspecified, without perforation or abscess without bleeding (principal)
CPT/HCPCS: 80053; 83735; 84100; 85025

== ENCOUNTER 2020-02-09 09:22 | Outpatient (CLI) | payer MEDICARE, OTHER, SELFPAY ==
[2020-02-09 09:38] LABS: Basophils # 0.1 10^3/uL (0.0-0.1); Basophils % 0.7 %; Eosinophils # 0.5 10^3/uL (0.0-0.8); Eosinophils % 6.6 %; Hematocrit 36.1 % (37.0-47.0); Lymphocytes # 1.8 10^3/uL (0.8-4.8); Lymphocytes % 23.3 %; Mean Corpuscular HGB Conc 30.5 g/dL (30.0-36.0); Mean Corpuscular Hemoglobin 27.7 pg (28.0-34.0); Mean Corpuscular Volume 90.9 fL (81-99); Mean Platelet Volume 11.7 fL (7.4-10.4); Monocytes # 0.9 10^3/uL (0.2-0.9); Monocytes % 11.3 %; Neutrophils # 4.37 10^3/uL (1.8-7.7); Neutrophils % 57.1 %; Nucleated Red Blood Cells % 0 %; Platelet Count 311 10^3/cmm (130-400); Red Blood Count 3.97 10^6/uL (4.1-5.3); White Blood Count 7.7 10^3/uL (4.0-10.0)
[2020-02-09 10:17] LABS: Alanine Aminotransferase 13 U/L (0-33); Albumin Level 3.1 g/dL (3.5-5.2); Alkaline Phosphatase 171 IU/L (35-105); Anion Gap 15.3 (5-19); Aspartate Amino Transferase 12 U/L (0-32); Blood Urea Nitrogen 19 mg/dL (8-23); Calcium 9.1 mg/dL (8.5-10.5); Carbon Dioxide 28 mmol/L (22-29); Chloride 100 mmol/L (98-107); Globulin 3.4 g/dL (1.3-4.6); Glucose 136 mg/dL (65-115); Osmolality Calculated 292 mOsm/kg (285-295); Phosphorus 4.3 mg/dL (2.5-4.5); Potassium 4.3 mmol/L (3.5-5.1); Sodium 139 mmol/L (136-145); Total Bilirubin 0.5 mg/dL (0.15-1.2); Total Protein 6.5 g/dL (6.6-8.7)
== END 2020-02-09 09:23 | disposition home or self-care (01) ==
PROVIDERS: PCP Family Medicine; Visit Provider Colon & Rectal Surgery
DX: K57.92 Diverticulitis of intestine, part unspecified, without perforation or abscess without bleeding (principal)
CPT/HCPCS: 80053; 83735; 84100; 85025

== ENCOUNTER 2020-02-15 12:57 | Outpatient (CLI) | payer MEDICARE, OTHER, SELFPAY ==
[2020-02-15 13:24] LABS: Basophils % 0.4 %; Eosinophils # 0.4 10^3/uL (0.0-0.8); Eosinophils % 4.2 %; Hematocrit 36.3 % (37.0-47.0); Hemoglobin 11.2 g/dL (11.5-15.3); Lymphocytes # 2.2 10^3/uL (0.8-4.8); Lymphocytes % 23.3 %; Mean Corpuscular HGB Conc 30.9 g/dL (30.0-36.0); Mean Corpuscular Hemoglobin 27.7 pg (28.0-34.0); Mean Corpuscular Volume 89.6 fL (81-99); Mean Platelet Volume 11.1 fL (7.4-10.4); Monocytes # 0.8 10^3/uL (0.2-0.9); Monocytes % 8.6 %; Neutrophils # 5.87 10^3/uL (1.8-7.7); Neutrophils % 62.8 %; Nucleated Red Blood Cells % 0 %; Platelet Count 300 10^3/cmm (130-400); Red Blood Count 4.05 10^6/uL (4.1-5.3); White Blood Count 9.4 10^3/uL (4.0-10.0)
[2020-02-15 13:41] LABS: Alanine Aminotransferase 33 U/L (0-33); Alkaline Phosphatase 189 IU/L (35-105); Aspartate Amino Transferase 25 U/L (0-32); Blood Urea Nitrogen 16 mg/dL (8-23); Calcium 9.2 mg/dL (8.5-10.5); Carbon Dioxide 30 mmol/L (22-29); Chloride 102 mmol/L (98-107); Globulin 3.5 g/dL (1.3-4.6); Glucose 141 mg/dL (65-115); Osmolality Calculated 294 mOsm/kg (285-295); Phosphorus 4.2 mg/dL (2.5-4.5); Sodium 140 mmol/L (136-145); Total Bilirubin 0.5 mg/dL (0.15-1.2); Total Protein 6.5 g/dL (6.6-8.7)
== END 2020-02-15 12:58 | disposition home or self-care (01) ==
LOC: LAB 13:01
PROVIDERS: PCP Family Medicine; Visit Provider Colon & Rectal Surgery
DX: K57.92 Diverticulitis of intestine, part unspecified, without perforation or abscess without bleeding (principal)
CPT/HCPCS: 80053; 83735; 84100; 85025

== ENCOUNTER 2020-02-22 12:51 | Outpatient (CLI) | payer MEDICARE, OTHER, SELFPAY ==
[2020-02-22 13:37] LABS: Alanine Aminotransferase 13 U/L (0-33); Albumin Level 3.6 g/dL (3.5-5.2); Alkaline Phosphatase 155 IU/L (35-105); Anion Gap 15.1 (5-19); Aspartate Amino Transferase 12 U/L (0-32); Blood Urea Nitrogen 16 mg/dL (8-23); Calcium 9.2 mg/dL (8.5-10.5); Carbon Dioxide 27 mmol/L (22-29); Chloride 101 mmol/L (98-107); Globulin 3.5 g/dL (1.3-4.6); Glucose 103 mg/dL (65-115); Magnesium 1.9 mg/dL (1.7-2.3); Osmolality Calculated 289 mOsm/kg (285-295); Potassium 4.1 mmol/L (3.5-5.1); Sodium 139 mmol/L (136-145); Total Bilirubin 0.6 mg/dL (0.15-1.2); Total Protein 7.1 g/dL (6.6-8.7)
[2020-02-22 13:38] LABS: Basophils # 0.1 10^3/uL (0.0-0.1); Basophils % 0.7 %; Eosinophils # 0.2 10^3/uL (0.0-0.8); Eosinophils % 2.5 %; Hematocrit 41.1 % (37.0-47.0); Hemoglobin 12.3 g/dL (11.5-15.3); Lymphocytes # 2.3 10^3/uL (0.8-4.8); Lymphocytes % 29.9 %; Mean Corpuscular HGB Conc 29.9 g/dL (30.0-36.0); Mean Corpuscular Hemoglobin 27.2 pg (28.0-34.0); Mean Corpuscular Volume 90.7 fL (81-99); Mean Platelet Volume 11.6 fL (7.4-10.4); Monocytes # 0.6 10^3/uL (0.2-0.9); Monocytes % 7.5 %; Nucleated Red Blood Cells % 0 %; Platelet Count 295 10^3/cmm (130-400); Red Blood Count 4.53 10^6/uL (4.1-5.3); Red Cell Distribution Width 13.8 % (12.1-15.1); White Blood Count 7.6 10^3/uL (4.0-10.0)
== END 2020-02-22 12:52 | disposition home or self-care (01) ==
PROVIDERS: PCP Family Medicine; Visit Provider Colon & Rectal Surgery
DX: K57.92 Diverticulitis of intestine, part unspecified, without perforation or abscess without bleeding (principal)
CPT/HCPCS: 80053; 83735; 84100; 85025

== ENCOUNTER 2020-02-29 12:51 | Outpatient (CLI) | payer MEDICARE, OTHER, SELFPAY ==
[2020-02-29 13:44] LABS: Basophils # 0.1 10^3/uL (0.0-0.1); Basophils % 0.6 %; Eosinophils # 0.4 10^3/uL (0.0-0.8); Eosinophils % 4.4 %; Hematocrit 39.8 % (37.0-47.0); Hemoglobin 12.3 g/dL (11.5-15.3); Lymphocytes # 2.1 10^3/uL (0.8-4.8); Lymphocytes % 26.4 %; Mean Corpuscular HGB Conc 30.9 g/dL (30.0-36.0); Mean Corpuscular Hemoglobin 27.2 pg (28.0-34.0); Mean Corpuscular Volume 88.1 fL (81-99); Mean Platelet Volume 11.9 fL (7.4-10.4); Monocytes # 0.6 10^3/uL (0.2-0.9); Monocytes % 7.1 %; Neutrophils # 4.92 10^3/uL (1.8-7.7); Neutrophils % 61.1 %; Nucleated Red Blood Cells % 0 %; Platelet Count 290 10^3/cmm (130-400); Red Blood Count 4.52 10^6/uL (4.1-5.3)
[2020-02-29 13:45] LABS: Alanine Aminotransferase 14 U/L (0-33); Albumin Level 3.3 g/dL (3.5-5.2); Alkaline Phosphatase 126 IU/L (35-105); Anion Gap 14.2 (5-19); Aspartate Amino Transferase 16 U/L (0-32); Blood Urea Nitrogen 20 mg/dL (8-23); Calcium 9.2 mg/dL (8.5-10.5); Carbon Dioxide 27 mmol/L (22-29); Chloride 103 mmol/L (98-107); Globulin 3.4 g/dL (1.3-4.6); Glucose 132 mg/dL (65-115); Osmolality Calculated 294 mOsm/kg (285-295); Phosphorus 3.6 mg/dL (2.5-4.5); Potassium 4.2 mmol/L (3.5-5.1); Sodium 140 mmol/L (136-145); Total Bilirubin 0.6 mg/dL (0.15-1.2); Total Protein 6.7 g/dL (6.6-8.7)
== END 2020-02-29 12:52 | disposition home or self-care (01) ==
LOC: LAB 12:54
PROVIDERS: PCP Family Medicine; Visit Provider Colon & Rectal Surgery
DX: K57.92 Diverticulitis of intestine, part unspecified, without perforation or abscess without bleeding (principal)
CPT/HCPCS: 80053; 83735; 84100; 85025

== ENCOUNTER 2020-03-14 12:20 | Outpatient (CLI) | payer MEDICARE, OTHER, SELFPAY ==
[2020-03-14 12:49] LABS: Basophils # 0.1 10^3/uL (0.0-0.1); Eosinophils # 0.5 10^3/uL (0.0-0.8); Eosinophils % 6.1 %; Hematocrit 43.9 % (37.0-47.0); Hemoglobin 13.4 g/dL (11.5-15.3); Lymphocytes # 2.7 10^3/uL (0.8-4.8); Lymphocytes % 34.2 %; Mean Corpuscular HGB Conc 30.5 g/dL (30.0-36.0); Mean Corpuscular Hemoglobin 26.9 pg (28.0-34.0); Mean Platelet Volume 12.6 fL (7.4-10.4); Monocytes # 0.6 10^3/uL (0.2-0.9); Monocytes % 8.1 %; Neutrophils # 3.86 10^3/uL (1.8-7.7); Nucleated Red Blood Cells % 0 %; Platelet Count 220 10^3/cmm (130-400); Red Blood Count 4.99 10^6/uL (4.1-5.3); Red Cell Distribution Width 14.9 % (12.1-15.1); White Blood Count 7.7 10^3/uL (4.0-10.0)
[2020-03-14 13:01] LABS: Alanine Aminotransferase 49 U/L (0-33); Albumin Level 3.7 g/dL (3.5-5.2); Alkaline Phosphatase 181 IU/L (35-105); Anion Gap 15.3 (5-19); Aspartate Amino Transferase 46 U/L (0-32); Blood Urea Nitrogen 22 mg/dL (8-23); Calcium 9.4 mg/dL (8.5-10.5); Carbon Dioxide 28 mmol/L (22-29); Chloride 100 mmol/L (98-107); Globulin 3.4 g/dL (1.3-4.6); Glucose 98 mg/dL (65-115); Magnesium 1.9 mg/dL (1.7-2.3); Osmolality Calculated 291 mOsm/kg (285-295); Phosphorus 4.2 mg/dL (2.5-4.5); Potassium 4.3 mmol/L (3.5-5.1); Sodium 139 mmol/L (136-145); Total Bilirubin 0.9 mg/dL (0.15-1.2); Total Protein 7.1 g/dL (6.6-8.7)
== END 2020-03-14 12:21 | disposition home or self-care (01) ==
LOC: LAB 12:23
PROVIDERS: PCP Family Medicine; Visit Provider Colon & Rectal Surgery
DX: K57.92 Diverticulitis of intestine, part unspecified, without perforation or abscess without bleeding (principal)
CPT/HCPCS: 80053; 83735; 84100; 85025

== ENCOUNTER 2020-03-21 14:06 | Outpatient (CLI) | payer MEDICARE, OTHER, SELFPAY ==
[2020-03-21 14:22] LABS: Basophils # 0.1 10^3/uL (0.0-0.1); Basophils % 0.8 %; Eosinophils # 0.3 10^3/uL (0.0-0.8); Hematocrit 41.1 % (37.0-47.0); Hemoglobin 12.6 g/dL (11.5-15.3); Lymphocytes # 2.2 10^3/uL (0.8-4.8); Lymphocytes % 33.2 %; Mean Corpuscular HGB Conc 30.7 g/dL (30.0-36.0); Mean Corpuscular Hemoglobin 27.5 pg (28.0-34.0); Mean Corpuscular Volume 89.7 fL (81-99); Mean Platelet Volume 12.7 fL (7.4-10.4); Monocytes # 0.6 10^3/uL (0.2-0.9); Monocytes % 9.1 %; Neutrophils % 52.4 %; Nucleated Red Blood Cells % 0 %; Platelet Count 166 10^3/cmm (130-400); Red Blood Count 4.58 10^6/uL (4.1-5.3); Red Cell Distribution Width 15.7 % (12.1-15.1); White Blood Count 6.5 10^3/uL (4.0-10.0)
[2020-03-21 14:46] LABS: Alanine Aminotransferase 114 U/L (0-33); Albumin Level 3.7 g/dL (3.5-5.2); Alkaline Phosphatase 333 IU/L (35-105); Anion Gap 10.7 (5-19); Aspartate Amino Transferase 89 U/L (0-32); Blood Urea Nitrogen 20 mg/dL (8-23); Calcium 9.5 mg/dL (8.5-10.5); Carbon Dioxide 29 mmol/L (22-29); Chloride 100 mmol/L (98-107); Globulin 3.2 g/dL (1.3-4.6); Glucose 105 mg/dL (65-115); Magnesium 1.9 mg/dL (1.7-2.3); Osmolality Calculated 285 mOsm/kg (285-295); Phosphorus 2.9 mg/dL (2.5-4.5); Potassium 3.7 mmol/L (3.5-5.1); Sodium 136 mmol/L (136-145); Total Bilirubin 1.9 mg/dL (0.15-1.2); Total Protein 6.9 g/dL (6.6-8.7)
== END 2020-03-21 14:07 | disposition home or self-care (01) ==
LOC: LAB 14:09
PROVIDERS: PCP Family Medicine; Visit Provider Colon & Rectal Surgery
DX: K57.92 Diverticulitis of intestine, part unspecified, without perforation or abscess without bleeding (principal)
CPT/HCPCS: 80053; 83735; 84100; 85025

== ENCOUNTER 2020-03-28 14:08 | Outpatient (CLI) | payer MEDICARE, OTHER, SELFPAY ==
[2020-03-28 14:35] LABS: Basophils % 0.6 %; Eosinophils # 0.3 10^3/uL (0.0-0.8); Eosinophils % 4.8 %; Hematocrit 40.6 % (37.0-47.0); Hemoglobin 12.5 g/dL (11.5-15.3); Lymphocytes # 2.2 10^3/uL (0.8-4.8); Lymphocytes % 33.5 %; Mean Corpuscular HGB Conc 30.8 g/dL (30.0-36.0); Mean Corpuscular Hemoglobin 27.2 pg (28.0-34.0); Mean Corpuscular Volume 88.3 fL (81-99); Mean Platelet Volume 13.4 fL (7.4-10.4); Monocytes # 0.5 10^3/uL (0.2-0.9); Monocytes % 8.1 %; Neutrophils # 3.54 10^3/uL (1.8-7.7); Neutrophils % 52.9 %; Nucleated Red Blood Cells % 0 %; Platelet Count 132 10^3/cmm (130-400); Red Cell Distribution Width 16.3 % (12.1-15.1); White Blood Count 6.7 10^3/uL (4.0-10.0)
[2020-03-28 15:11] LABS: Slide Review Slide Review Perform
[2020-03-28 15:16] LABS: Alanine Aminotransferase 101 U/L (0-33); Albumin Level 3.3 g/dL (3.5-5.2); Alkaline Phosphatase 420 IU/L (35-105); Aspartate Amino Transferase 87 U/L (0-32); Blood Urea Nitrogen 21 mg/dL (8-23); Calcium 9.4 mg/dL (8.5-10.5); Carbon Dioxide 23 mmol/L (22-29); Chloride 101 mmol/L (98-107); Globulin 3.4 g/dL (1.3-4.6); Glucose 98 mg/dL (65-115); Osmolality Calculated 287 mOsm/kg (285-295); Phosphorus 3.4 mg/dL (2.5-4.5); Sodium 137 mmol/L (136-145); Total Bilirubin 1.8 mg/dL (0.15-1.2); Total Protein 6.7 g/dL (6.6-8.7)
[2020-03-28 15:27] LABS: Anion Gap 17.3 (5-19); Potassium 4.3 mmol/L (3.5-5.1)
== END 2020-03-28 14:09 | disposition home or self-care (01) ==
PROVIDERS: PCP Family Medicine; Visit Provider Colon & Rectal Surgery
DX: K57.92 Diverticulitis of intestine, part unspecified, without perforation or abscess without bleeding (principal)
CPT/HCPCS: 80053; 83735; 84100; 85025

== ENCOUNTER 2020-04-04 15:31 | Outpatient (CLI) | payer MEDICARE, OTHER, SELFPAY ==
[2020-04-04 16:47] LABS: Basophils % 0.5 %; Eosinophils # 0.2 10^3/uL (0.0-0.8); Eosinophils % 2.7 %; Hematocrit 40.3 % (37.0-47.0); Hemoglobin 12.6 g/dL (11.5-15.3); Lymphocytes # 2.7 10^3/uL (0.8-4.8); Lymphocytes % 30.9 %; Mean Corpuscular HGB Conc 31.3 g/dL (30.0-36.0); Mean Corpuscular Hemoglobin 27.8 pg (28.0-34.0); Mean Corpuscular Volume 88.8 fL (81-99); Mean Platelet Volume 14.5 fL (7.4-10.4); Monocytes # 0.8 10^3/uL (0.2-0.9); Monocytes % 9.4 %; Neutrophils # 4.97 10^3/uL (1.8-7.7); Neutrophils % 56.2 %; Nucleated Red Blood Cells % 0 %; Platelet Count 192 10^3/cmm (130-400); Red Blood Count 4.54 10^6/uL (4.1-5.3); Red Cell Distribution Width 16.6 % (12.1-15.1); White Blood Count 8.8 10^3/uL (4.0-10.0)
[2020-04-04 17:21] LABS: Alanine Aminotransferase 82 U/L (0-33); Albumin Level 3.6 g/dL (3.5-5.2); Alkaline Phosphatase 449 IU/L (35-105); Anion Gap 15.9 (5-19); Aspartate Amino Transferase 54 U/L (0-32); Blood Urea Nitrogen 18 mg/dL (8-23); Carbon Dioxide 27 mmol/L (22-29); Chloride 101 mmol/L (98-107); Globulin 3.2 g/dL (1.3-4.6); Glucose 83 mg/dL (65-115); Magnesium 1.9 mg/dL (1.7-2.3); Osmolality Calculated 291 mOsm/kg (285-295); Phosphorus 4.1 mg/dL (2.5-4.5); Potassium 3.9 mmol/L (3.5-5.1); Sodium 140 mmol/L (136-145); Total Bilirubin 1.7 mg/dL (0.15-1.2); Total Protein 6.8 g/dL (6.6-8.7)
[2020-04-06 17:23] LABS: Calcium 9.6 mg/dL (8.5-10.5)
== END 2020-04-04 15:32 | disposition home or self-care (01) ==
PROVIDERS: PCP Family Medicine; Visit Provider Colon & Rectal Surgery
DX: K57.92 Diverticulitis of intestine, part unspecified, without perforation or abscess without bleeding (principal)
CPT/HCPCS: 80053; 83735; 84100; 85025

== ENCOUNTER 2020-04-11 11:22 | Outpatient (CLI) | payer MEDICARE, OTHER, SELFPAY ==
[2020-04-11 11:53] LABS: Basophils # 0.1 10^3/uL (0.0-0.1); Basophils % 1.1 %; Eosinophils # 0.4 10^3/uL (0.0-0.8); Eosinophils % 5.7 %; Hematocrit 43.1 % (37.0-47.0); Hemoglobin 13.2 g/dL (11.5-15.3); Lymphocytes # 2.3 10^3/uL (0.8-4.8); Lymphocytes % 38.3 %; Mean Corpuscular HGB Conc 30.6 g/dL (30.0-36.0); Mean Corpuscular Hemoglobin 27.4 pg (28.0-34.0); Mean Corpuscular Volume 89.4 fL (81-99); Mean Platelet Volume 12.9 fL (7.4-10.4); Monocytes # 0.6 10^3/uL (0.2-0.9); Monocytes % 9.7 %; Neutrophils # 2.72 10^3/uL (1.8-7.7); Neutrophils % 44.7 %; Nucleated Red Blood Cells % 0 %; Platelet Count 248 10^3/cmm (130-400); Red Blood Count 4.82 10^6/uL (4.1-5.3); Red Cell Distribution Width 16.3 % (12.1-15.1); White Blood Count 6.1 10^3/uL (4.0-10.0)
[2020-04-11 12:07] LABS: Alanine Aminotransferase 60 U/L (0-33); Albumin Level 3.8 g/dL (3.5-5.2); Alkaline Phosphatase 487 IU/L (35-105); Anion Gap 12.5 (5-19); Aspartate Amino Transferase 47 U/L (0-32); Blood Urea Nitrogen 19 mg/dL (8-23); Calcium 9.5 mg/dL (8.5-10.5); Carbon Dioxide 30 mmol/L (22-29); Chloride 102 mmol/L (98-107); Globulin 3.2 g/dL (1.3-4.6); Glucose 102 mg/dL (65-115); Magnesium 1.9 mg/dL (1.7-2.3); Osmolality Calculated 292 mOsm/kg (285-295); Potassium 4.5 mmol/L (3.5-5.1); Sodium 140 mmol/L (136-145); Total Bilirubin 0.7 mg/dL (0.15-1.2)
[2020-04-11 15:46] LABS: Phosphorus 4.5 mg/dL (2.5-4.5)
== END 2020-04-11 11:23 | disposition home or self-care (01) ==
PROVIDERS: PCP Family Medicine; Visit Provider Colon & Rectal Surgery
DX: K57.92 Diverticulitis of intestine, part unspecified, without perforation or abscess without bleeding (principal)
CPT/HCPCS: 80053; 83735; 84100; 85025

== ENCOUNTER 2020-04-18 11:09 | Outpatient (CLI) | payer MEDICARE, OTHER, SELFPAY ==
[2020-04-18 11:38] LABS: Basophils % 0.8 %; Eosinophils # 0.2 10^3/uL (0.0-0.8); Eosinophils % 4.4 %; Hematocrit 42.4 % (37.0-47.0); Hemoglobin 12.9 g/dL (11.5-15.3); Lymphocytes % 37.6 %; Mean Corpuscular HGB Conc 30.4 g/dL (30.0-36.0); Mean Corpuscular Hemoglobin 27.6 pg (28.0-34.0); Mean Corpuscular Volume 90.6 fL (81-99); Mean Platelet Volume 13.7 fL (7.4-10.4); Monocytes # 0.4 10^3/uL (0.2-0.9); Monocytes % 7.8 %; Neutrophils # 2.58 10^3/uL (1.8-7.7); Nucleated Red Blood Cells % 0 %; Platelet Count 154 10^3/cmm (130-400); Red Blood Count 4.68 10^6/uL (4.1-5.3); Red Cell Distribution Width 16.1 % (12.1-15.1); White Blood Count 5.3 10^3/uL (4.0-10.0)
[2020-04-18 11:45] LABS: Alanine Aminotransferase 57 U/L (0-33); Albumin Level 3.8 g/dL (3.5-5.2); Alkaline Phosphatase 432 IU/L (35-105); Anion Gap 11.9 (5-19); Aspartate Amino Transferase 51 U/L (0-32); Blood Urea Nitrogen 23 mg/dL (8-23); Calcium 9.3 mg/dL (8.5-10.5); Carbon Dioxide 29 mmol/L (22-29); Chloride 102 mmol/L (98-107); Globulin 3.1 g/dL (1.3-4.6); Glucose 86 mg/dL (65-115); Magnesium 1.9 mg/dL (1.7-2.3); Osmolality Calculated 289 mOsm/kg (285-295); Phosphorus 4.3 mg/dL (2.5-4.5); Potassium 4.9 mmol/L (3.5-5.1); Sodium 138 mmol/L (136-145); Total Bilirubin 0.9 mg/dL (0.15-1.2); Total Protein 6.9 g/dL (6.6-8.7)
== END 2020-04-18 11:10 | disposition home or self-care (01) ==
PROVIDERS: PCP Family Medicine; Visit Provider Colon & Rectal Surgery
DX: K57.92 Diverticulitis of intestine, part unspecified, without perforation or abscess without bleeding (principal)
CPT/HCPCS: 80053; 83735; 84100; 85025

== ENCOUNTER 2020-04-24 13:53 | Outpatient (CLI) | payer MEDICARE, OTHER, SELFPAY ==
[2020-04-24 14:29] LABS: Basophils % 0.7 %; Eosinophils # 0.2 10^3/uL (0.0-0.8); Eosinophils % 2.9 %; Hemoglobin 12.2 g/dL (11.5-15.3); Lymphocytes # 2.4 10^3/uL (0.8-4.8); Lymphocytes % 40.8 %; Mean Corpuscular HGB Conc 32.1 g/dL (30.0-36.0); Mean Corpuscular Hemoglobin 28.2 pg (28.0-34.0); Mean Platelet Volume 13.4 fL (7.4-10.4); Monocytes # 0.4 10^3/uL (0.2-0.9); Neutrophils # 2.89 10^3/uL (1.8-7.7); Neutrophils % 49.4 %; Nucleated Red Blood Cells % 0 %; Platelet Count 153 10^3/cmm (130-400); Red Blood Count 4.32 10^6/uL (4.1-5.3); White Blood Count 5.8 10^3/uL (4.0-10.0)
[2020-04-24 15:55] LABS: Alanine Aminotransferase 62 U/L (0-33); Albumin Level 3.6 g/dL (3.5-5.2); Alkaline Phosphatase 421 IU/L (35-105); Anion Gap 12.9 (5-19); Aspartate Amino Transferase 56 U/L (0-32); Blood Urea Nitrogen 18 mg/dL (8-23); Calcium 9.2 mg/dL (8.5-10.5); Carbon Dioxide 25 mmol/L (22-29); Chloride 101 mmol/L (98-107); Glucose 88 mg/dL (65-115); Magnesium 1.7 mg/dL (1.7-2.3); Osmolality Calculated 281 mOsm/kg (285-295); Phosphorus 3.4 mg/dL (2.5-4.5); Potassium 3.9 mmol/L (3.5-5.1); Sodium 135 mmol/L (136-145); Total Bilirubin 1.1 mg/dL (0.15-1.2); Total Protein 6.6 g/dL (6.6-8.7)
== END 2020-04-24 13:54 | disposition home or self-care (01) ==
LOC: LAB 14:05
PROVIDERS: PCP Family Medicine; Visit Provider Colon & Rectal Surgery
DX: K57.92 Diverticulitis of intestine, part unspecified, without perforation or abscess without bleeding (principal)
CPT/HCPCS: 80053; 83735; 84100; 85025

== ENCOUNTER 2020-05-02 12:47 | Outpatient (CLI) | payer MEDICARE, OTHER, SELFPAY ==
[2020-05-02 13:07] LABS: Basophils # 0.1 10^3/uL (0.0-0.1); Basophils % 0.8 %; Eosinophils # 0.2 10^3/uL (0.0-0.8); Eosinophils % 2.8 %; Hematocrit 39.7 % (37.0-47.0); Hemoglobin 12.3 g/dL (11.5-15.3); Lymphocytes # 2.2 10^3/uL (0.8-4.8); Lymphocytes % 35.8 %; Mean Corpuscular Volume 90.4 fL (81-99); Mean Platelet Volume 13.9 fL (7.4-10.4); Monocytes # 0.4 10^3/uL (0.2-0.9); Monocytes % 6.8 %; Neutrophils % 53.3 %; Nucleated Red Blood Cells % 0 %; Platelet Count 151 10^3/cmm (130-400); Red Blood Count 4.39 10^6/uL (4.1-5.3); Red Cell Distribution Width 16.3 % (12.1-15.1)
[2020-05-02 13:26] LABS: Alanine Aminotransferase 46 U/L (0-33); Albumin Level 3.4 g/dL (3.5-5.2); Alkaline Phosphatase 334 IU/L (35-105); Aspartate Amino Transferase 35 U/L (0-32); Blood Urea Nitrogen 19 mg/dL (8-23); Calcium 8.6 mg/dL (8.5-10.5); Carbon Dioxide 26 mmol/L (22-29); Chloride 104 mmol/L (98-107); Globulin 2.9 g/dL (1.3-4.6); Glucose 120 mg/dL (65-115); Magnesium 1.8 mg/dL (1.7-2.3); Osmolality Calculated 291 mOsm/kg (285-295); Phosphorus 3.5 mg/dL (2.5-4.5); Sodium 139 mmol/L (136-145); Total Bilirubin 0.6 mg/dL (0.15-1.2); Total Protein 6.3 g/dL (6.6-8.7)
[2020-05-06 11:07] LABS: Copper Level 94 mcg/dL (70-175); Zinc Level, Serum or Plasma 74 mcg/dL (60-130)
== END 2020-05-02 12:48 | disposition home or self-care (01) ==
PROVIDERS: PCP Family Medicine; Visit Provider Colon & Rectal Surgery
DX: K57.92 Diverticulitis of intestine, part unspecified, without perforation or abscess without bleeding (principal)
CPT/HCPCS: 80053; 82525; 83735; 84100; 84255; 84630; 85025

== ENCOUNTER 2020-05-09 12:53 | Outpatient (CLI) | payer MEDICARE, OTHER, SELFPAY ==
[2020-05-09 13:26] LABS: Basophils # 0.1 10^3/uL (0.0-0.1); Basophils % 0.7 %; Eosinophils # 0.3 10^3/uL (0.0-0.8); Eosinophils % 3.5 %; Hematocrit 42.3 % (37.0-47.0); Hemoglobin 13.1 g/dL (11.5-15.3); Lymphocytes # 2.4 10^3/uL (0.8-4.8); Lymphocytes % 32.4 %; Mean Corpuscular Hemoglobin 28.1 pg (28.0-34.0); Mean Corpuscular Volume 90.8 fL (81-99); Monocytes # 0.7 10^3/uL (0.2-0.9); Monocytes % 9.5 %; Neutrophils # 4.02 10^3/uL (1.8-7.7); Neutrophils % 53.5 %; Nucleated Red Blood Cells % 0 %; Platelet Count 173 10^3/cmm (130-400); Red Blood Count 4.66 10^6/uL (4.1-5.3); Red Cell Distribution Width 15.8 % (12.1-15.1); White Blood Count 7.5 10^3/uL (4.0-10.0)
[2020-05-09 13:54] LABS: Alanine Aminotransferase 77 U/L (0-33); Albumin Level 3.6 g/dL (3.5-5.2); Alkaline Phosphatase 386 IU/L (35-105); Anion Gap 15.3 (5-19); Aspartate Amino Transferase 79 U/L (0-32); Blood Urea Nitrogen 20 mg/dL (8-23); Calcium 9.3 mg/dL (8.5-10.5); Carbon Dioxide 24 mmol/L (22-29); Chloride 100 mmol/L (98-107); Glucose 112 mg/dL (65-115); Osmolality Calculated 283 mOsm/kg (285-295); Phosphorus 4.2 mg/dL (2.5-4.5); Potassium 4.3 mmol/L (3.5-5.1); Sodium 135 mmol/L (136-145); Total Bilirubin 0.9 mg/dL (0.15-1.2); Total Protein 6.6 g/dL (6.6-8.7)
== END 2020-05-09 12:54 | disposition home or self-care (01) ==
LOC: LAB 12:55
PROVIDERS: PCP Family Medicine; Visit Provider Colon & Rectal Surgery
DX: K57.92 Diverticulitis of intestine, part unspecified, without perforation or abscess without bleeding (principal)
CPT/HCPCS: 80053; 83735; 84100; 85025

== ENCOUNTER 2020-05-16 10:06 | Outpatient (CLI) | payer MEDICARE, OTHER, SELFPAY ==
[2020-05-16 10:19] LABS: Basophils # 0.1 10^3/uL (0.0-0.1); Basophils % 0.7 %; Eosinophils # 0.2 10^3/uL (0.0-0.8); Eosinophils % 3.4 %; Hematocrit 45.6 % (37.0-47.0); Hemoglobin 13.3 g/dL (11.5-15.3); Lymphocytes # 2.1 10^3/uL (0.8-4.8); Lymphocytes % 31.5 %; Mean Corpuscular HGB Conc 29.2 g/dL (30.0-36.0); Mean Corpuscular Hemoglobin 28.2 pg (28.0-34.0); Mean Corpuscular Volume 96.8 fL (81-99); Mean Platelet Volume 12.7 fL (7.4-10.4); Monocytes # 0.5 10^3/uL (0.2-0.9); Monocytes % 7.8 %; Neutrophils # 3.81 10^3/uL (1.8-7.7); Neutrophils % 56.2 %; Nucleated Red Blood Cells % 0 %; Platelet Count 85 10^3/cmm (130-400); Red Blood Count 4.71 10^6/uL (4.1-5.3); Red Cell Distribution Width 16.2 % (12.1-15.1); White Blood Count 6.8 10^3/uL (4.0-10.0)
[2020-05-16 10:43] LABS: Alanine Aminotransferase 63 U/L (0-33); Albumin Level 3.7 g/dL (3.5-5.2); Alkaline Phosphatase 367 IU/L (35-105); Anion Gap 14.9 (5-19); Aspartate Amino Transferase 49 U/L (0-32); Blood Urea Nitrogen 20 mg/dL (8-23); Calcium 9.3 mg/dL (8.5-10.5); Carbon Dioxide 26 mmol/L (22-29); Chloride 104 mmol/L (98-107); Glucose 97 mg/dL (65-115); Magnesium 1.8 mg/dL (1.7-2.3); Osmolality Calculated 293 mOsm/kg (285-295); Phosphorus 4.4 mg/dL (2.5-4.5); Potassium 4.9 mmol/L (3.5-5.1); Sodium 140 mmol/L (136-145); Total Bilirubin 0.6 mg/dL (0.15-1.2); Total Protein 6.7 g/dL (6.6-8.7)
== END 2020-05-16 10:07 | disposition home or self-care (01) ==
LOC: LAB 10:08
PROVIDERS: PCP Family Medicine; Visit Provider Colon & Rectal Surgery
DX: K57.92 Diverticulitis of intestine, part unspecified, without perforation or abscess without bleeding (principal)
CPT/HCPCS: 80053; 83735; 84100; 85025

== ENCOUNTER 2020-05-23 11:00 | Outpatient (CLI) | payer MEDICARE, OTHER, SELFPAY ==
[2020-05-23 11:26] LABS: Basophils # 0.1 10^3/uL (0.0-0.1); Basophils % 0.8 %; Eosinophils # 0.3 10^3/uL (0.0-0.8); Eosinophils % 4.5 %; Hematocrit 42.3 % (37.0-47.0); Hemoglobin 12.4 g/dL (11.5-15.3); Lymphocytes % 33.1 %; Mean Corpuscular HGB Conc 29.3 g/dL (30.0-36.0); Mean Corpuscular Hemoglobin 28.5 pg (28.0-34.0); Mean Corpuscular Volume 97.2 fL (81-99); Mean Platelet Volume 12.1 fL (7.4-10.4); Monocytes # 0.6 10^3/uL (0.2-0.9); Monocytes % 9.6 %; Neutrophils # 3.18 10^3/uL (1.8-7.7); Neutrophils % 51.5 %; Nucleated Red Blood Cells % 0 %; Red Blood Count 4.35 10^6/uL (4.1-5.3); Red Cell Distribution Width 16.3 % (12.1-15.1); White Blood Count 6.2 10^3/uL (4.0-10.0)
[2020-05-23 11:44] LABS: Alanine Aminotransferase 41 U/L (0-33); Albumin Level 3.6 g/dL (3.5-5.2); Alkaline Phosphatase 282 IU/L (35-105); Anion Gap 13.1 (5-19); Aspartate Amino Transferase 32 U/L (0-32); Blood Urea Nitrogen 21 mg/dL (8-23); Calcium 8.9 mg/dL (8.5-10.5); Carbon Dioxide 24 mmol/L (22-29); Chloride 102 mmol/L (98-107); Ferritin 68 ng/mL (15-150); Globulin 2.9 g/dL (1.3-4.6); Glucose 117 mg/dL (65-115); Iron 71 ug/dL (37-145); Magnesium 1.8 mg/dL (1.7-2.3); Osmolality Calculated 284 mOsm/kg (285-295); Phosphorus 4.6 mg/dL (2.5-4.5); Potassium 4.1 mmol/L (3.5-5.1); Sodium 135 mmol/L (136-145); Total Bilirubin 0.7 mg/dL (0.15-1.2); Total Iron Binding Capacity 373 mcg/dl; Total Protein 6.5 g/dL (6.6-8.7); Unsaturated Iron Binding 302 ug/dL (112-347)
[2020-05-26 10:30] LABS: Platelet Count 48 10^3/cmm (130-400)
== END 2020-05-23 11:01 | disposition home or self-care (01) ==
LOC: LAB 11:01
PROVIDERS: PCP Family Medicine; Visit Provider Colon & Rectal Surgery
DX: K57.92 Diverticulitis of intestine, part unspecified, without perforation or abscess without bleeding (principal)
CPT/HCPCS: 80053; 82728; 83540; 83550; 83735; 84100; 85025

== ENCOUNTER 2020-05-23 15:17 | Emergency (ER) | payer MEDICARE, OTHER, SELFPAY ==
[2020-05-23 15:17] VITALS: BP 156/68; PULSE 71; RESP 18; TEMP 37.1; O2SAT 99; BMI 27.8
[2020-05-23 17:09] LABS: Hematocrit 39.1 % (37.0-47.0); Hemoglobin 12.5 g/dL (11.5-15.3); Mean Corpuscular Hemoglobin 28.8 pg (28.0-34.0); Mean Corpuscular Volume 90.1 fL (81-99); Mean Platelet Volume 12.5 fL (7.4-10.4); Platelet Count 184 10^3/cmm (130-400); Red Blood Count 4.34 10^6/uL (4.1-5.3); Red Cell Distribution Width 15.9 % (12.1-15.1); White Blood Count 7.4 10^3/uL (4.0-10.0)
[2020-05-23 17:11] VITALS: O2SAT 98
[2020-05-23 17:20] LABS: Absolute Eosinophils 0.6 10^3/cmm (0.0-0.7); Absolute Segmented Neutrophil 3.5 10/cmm (1.6-7.1); Eosinophils 9 %; Lymphocytes 34 %; Monocytes Absolute 0.7 10^3/cmm (0.1-0.6); Segmented Neutrophils 47 %; Total Cells Counted 100 (0-100)
[2020-05-23 17:21] LABS: Absolute Neutrophil 3.5 10^3/cmm (1.4-6.5); Platelet Estimate Normal (Normal)
--- NOTE | 2020-05-23 17:24 | CTR_ITS ---
PROCEDURE INFORMATION: Exam: CT Abdomen And Pelvis With Contrast Exam date and time: 05/23/2020 5:33 PM Age: 75 years old Clinical indication: Abdominal pain; Localized; Left; Prior surgery; Surgery type: Appy, gb, drain, bowel, hernia, colsotomy TECHNIQUE: Imaging protocol: Computed tomography of the abdomen and pelvis with contrast. Radiation optimization: All CT scans at this facility use at least one of these dose optimization techniques: automated exposure control; mA and/or kV adjustment per patient size (includes targeted exams where dose is matched to clinical indication); or iterative reconstruction. Contrast material: OMNI 300; Contrast volume: 95 ml; Contrast route: INTRAVENOUS (IV); COMPARISON: CT abdomen pelvis wo con [id number] 01/12/2020 6:33 PM RADIATION DOSE METRICS: Total DLP (mGy-cm): 1297.66 FINDINGS: Tubes, catheters and devices: Percutaneous pigtail drainage catheter within the left lower quadrant. Liver: Normal. No mass. Gallbladder and bile ducts: Cholecystectomy. Mild ectasia of common bile duct stable from prior. Pancreas: Normal. No ductal dilation. Spleen: Granulomas in the spleen. No splenomegaly. Adrenal glands: Normal. No mass. Kidneys and ureters: Small left renal cortical cyst with simple CT features. No hydronephrosis. No perinephric inflammation. No calcified renal stones. Stomach and bowel: Stomach and duodenal sweep appear unremarkable. No evidence of small bowel obstruction. Negative for pneumoperitoneum. Small bowel anastomosis in the right lower abdomen with unremarkable appearance. Moderate fecal volume. No focal inflammatory wall thickening of bowel loops. Appendix: No evidence of appendicitis. Intraperitoneal space: Surgical clips across the anterior abdomen noted. Vasculature: Abdominopelvic vascular structures are patent. Large atherosclerotic plaque volume of the abdominal aorta. No aneurysm. Lymph nodes: Unremarkable. No enlarged lymph nodes. Urinary bladder: Unremarkable as visualized. Reproductive: Hysterectomy. Bones/joints: Bones are demineralized. No aggressive bone lesion. No acute fractures. Soft tissues: No abdominal wall fluid collection. Postoperative changes of the midline ventral abdominal wall noted. Lumbar paraspinal muscles are symmetric. Other findings: No intra-abdominal fluid collection. CT/CT abdomen pelvis w con* [id number] IMPRESSION: 1. Negative for acute abdominopelvic abnormality. 2. Left lower quadrant pigtail percutaneous drainage catheter is present with no residual focal intra-abdominal fluid collection identified. 3. Significant improvement from prior on 01/12/2020. COMMENTS: Consistent with the [employer]'s Incidental Findings Committee white paper (J Am Patricia Radiol 2018): Any incidental renal lesion less than 1 cm or classified as too small to characterize, or any incidental cystic renal lesion characterized as simple-appearing, is likely benign. No follow-up imaging is recommended for these lesions per consensus recommendations based on imaging criteria. Radiation Dose CTDIVOL = (mGy): DLP = 1297.66 (mGy-cm)
[2020-05-23 17:30] LABS: INR 0.96 (0.8-1.2)
[2020-05-23 17:34] LABS: Alanine Aminotransferase 40 U/L (0-33); Albumin Level 3.7 g/dL (3.5-5.2); Alkaline Phosphatase 297 IU/L (35-105); Anion Gap 10.9 (5-19); Aspartate Amino Transferase 30 U/L (0-32); Blood Urea Nitrogen 20 mg/dL (8-23); Carbon Dioxide 29 mmol/L (22-29); Chloride 100 mmol/L (98-107); Glucose 91 mg/dL (65-115); Osmolality Calculated 284 mOsm/kg (285-295); Potassium 3.9 mmol/L (3.5-5.1); Sodium 136 mmol/L (136-145); Total Bilirubin 0.6 mg/dL (0.15-1.2); Total Protein 6.7 g/dL (6.6-8.7)
[2020-05-23] MEDS: iohexol 300 mg/mL 100 mL Btl IV (18:11)
[2020-05-23 18:29] VITALS: BP 140/61; PULSE 68; RESP 14; O2SAT 100
[2020-05-23 19:00] VITALS: BP 126/63; PULSE 69; RESP 18; O2SAT 99
--- NOTE | 2020-05-23 19:59 | W.ED.RECABL ---
HPI - Recheck/Abnormal Lab/Rx General: Chief Complaint: Recheck/Abnormal Lab/Rx Stated Complaint: LOW PLATELET COUNT Time Seen by Provider: 05/23/20 16:34 History of Present Illness: HPI narrative: The patient is a 75-year-old female with extensive surgical history to her abdomen and drain on TPN for several months who comes to the ER complaining she was told to come here because of her low platelet count. She has her labs drawn weekly and today's platelet count came back at 48. She says this is all because this is the best she has felt in several months with her chronic medical problems as she is nearing being able to eat again on a regular basis. Her says the drain in her abdomen has been draining last the past 2 days and is wondering if it is clogged. He says he has been flushing both ends of it and it has been flushing and returning whenever he does that. 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 She has chronic abdominal pain by the site of her port but other than that she feels very well. Review of Systems General: Reports: 10 or more systems reviewed and unremarkable except in HPI and below Const: Denies: fatigue Eyes: Denies: change in vision, blurry vision or eye redness ENMT: Denies: throat pain, swelling of lips/tongue, ear or mastoid pain or nasal congestion Card: Denies: chest pain, palpitations, irregular heart rhythm, edema, dyspnea on exertion or orthopnea Resp: Denies: dyspnea, productive cough or non-productive cough GI: Reports: abdominal pain; Denies: diarrhea or GI cramping : Denies: flank pain, difficulty voiding, urinary frequency or urinary urgency Musc: Denies: neck pain, back pain, extremity pain, joint pain, joint redness, limited range of motion or muscle weakness Skin/Breast: Denies: rash, pruritus, erythema, skin pain or skin tenderness Neuro: Denies: headache(s), numbness in extremities, weakness in extremities, sensory changes, difficulty walking, dizziness, confusion or Slurred speech present Psych: Denies: anxiety or depression Endo: Denies: polyuria All/Imm: Denies: urticaria, throat swelling or tongue swelling PFS ED PFSH: Medical History (Updated 05/23/20 @ 19:58 by Varun Arnold MD) Colonic diverticular abscess Coronary disease Diabetes Diet controlled GERD (gastroesophageal reflux disease) Gout Hypertension Migraine Myocardial infarction Necrotizing fasciitis Osteoarthritis Pericarditis Scleroderma Surgical History H/O colectomy H/O hernia repair History of cholecystectomy S/P dilatation of esophageal stricture S/P ANH-BSO Family History Mother Congestive heart failure Social History Smoking and tobacco status: former smoker Alcohol intake: never Physical Exam Const: COMMON NORMALS: no acute distress, average body habitus, patient oriented x3, no limitations, healthy appearing, alert and well nourished GENERAL APPEARANCE: cooperative, comfortable, well kempt and well developed ORIENTATION/CONSCIOUSNESS: Yes awake, Yes oriented to person, Yes oriented to place and Yes oriented to time HENMT: COMMON NORMALS: normocephalic, external ears normal and Normal external nose present HEAD & SCALP: normal to inspection and normocephalic NOSE: Normal external nose present EXTERNAL EAR: Yes external ears normal MOUTH: Normal oral and palatal mucosa present THROAT: posterior oropharynx normal Eye: COMMON NORMALS: Equal, round and reactive pupils present and EOMs intact bilaterally GENERAL EYE: appearance normal, both eyes and all related structures PUPIL: Yes Equal, round and reactive pupils present Neck/C-Spine: COMMON NORMALS: full ROM, no lymphadenopathy, no meningeal signs and no JVD GENERAL: Yes normal visual inspection Lymph: LYMPHATIC: no lymphadenopathy noted Chest: COMMONS NORMALS: normal inspection of the chest and normal palpation of entire chest wall Resp: COMMON NORMALS: normal respiratory effort, No retractions, No use of accessory muscles, clear to auscultation bilaterally and percussion normal EFFORT & INSPECTION: Yes able to speak in complete sentences AUSCULTATION: clear to auscultation bilaterally PERCUSSION: percussion normal Cardio: COMMON NORMALS: no JVD, regular rate, regular rhythm, S1 normal heart sound present, S2 normal heart sound present and Peripheral pulses 2+ throughout RATE: regular rate RHYTHM: regular rhythm HEART SOUNDS: S1 normal heart sound present and S2 normal heart sound present PERIPHERAL PULSES: Peripheral pulses 2+ throughout GI: COMMON NORMALS: Soft to palpation, non-tender and no masses INSPECTION: Yes normal to inspection PALPATION: Yes Soft to palpation OTHER: Her belly is soft. She has multiple surgical scars which are healing appropriately aged months old. She has a port in her left mid abdomen draining clearish fluid. Mild associated tenderness to that area because it chronically hurts her. No cellulitis seen no drainage coming from any areas of her belly. The drainage from her port is clearish : COMMON NORMALS: Yes no CVA tenderness BLADDER/KIDNEY EXAM: Yes no CVA tenderness Back/Pelvis: COMMON NORMALS: no CVA tenderness, thoracic and lumbar spine normal to inspection, no thoracic nor lumbar tenderness and thoraco-lumbar ROM normal Extremity: COMMON NORMALS: normal to inspection, full ROM, capillary refill normal, no joint enlargement and no pedal edema GENERAL: Yes normal exam except as noted Neuro: COMMON NORMALS: patient oriented x3, CN's II-XII intact bilaterally, moves all extremities, no focal motor deficits, no sensory deficits noted and gait normal SENSORIUM/ORIENTATION: Yes alert, Yes oriented to person, Yes oriented to place and Yes oriented to time MENINGEAL SIGNS: Yes no meningeal signs Psych: COMMON NORMALS: mental status grossly normal, Normal thought process present, cooperative, normal affect and speech normal APPEARANCE: Yes well kempt ATTITUDE: Yes calm SPEECH: Yes normal speech THOUGHT PROCESS: Normal thought process present Skin: COMMON NORMALS: no rashes or lesions noted GENERAL SKIN EXAM: no rashes or lesions noted Course Vital Signs: Vital signs: Vital Signs Temperature 98.7 F 05/23/20 15:17 Pulse Rate 64 05/23/20 20:08 Respiratory Rate 16 05/23/20 20:08 Blood Pressure 133/71 05/23/20 20:08 Pulse Oximetry 96 05/23/20 20:08 MDM - Recheck/Abnormal Lab/Rx MDM Narrative: Medical decision making narrative: On recheck the patient's platelets were 184. Likely the previous sample platelets were clotted and giving a falsely lower number. The patient is stable for discharge. Recommended getting it rechecked in a week which she gets it rechecked every week because of her chronic medical conditions. Follow-up with primary care physician in a couple days. ER with worsening symptoms. Lab Data: Labs: Lab Results 05/23/20 05/23/20 05/23/20 Range/Units 17:00 17:00 17:00 WBC 7.4 (4.0-10.0) 10^3/ uL RBC 4.34 (4.1-5.3) 10^6/u L Hgb 12.5 (11.5-15.3) g/dL Hct 39.1 (37.0-47.0) % MCV 90.1 D (81-99) fL MCH 28.8 (28.0-34.0) pg MCHC 32.0 D (30.0-36.0) g/dL RDW 15.9 H (12.1-15.1) % Plt Count 184 (130-400) 10^3/c mm MPV 12.5 H (7.4-10.4) fL Total Counted 100 (0-100) Atypical Lymphs % 0.0 (0-5) % Absolute Neutrophi ls 3.5 (1.4-6.5) 10^3/c mm Segmented Neutroph ils 47 % Abs Segm Neuts (Ma n) 3.5 (1.6-7.1) 10/cmm Band Neutrophils 0.0 % Abs Band Neuts (Ma n) 0.0 (0.0-1.2) 10^3/c mm Lymphocytes (Manua l) 34 % Monocytes (Manual) 10.0 % Absolute Monocytes 0.7 H (0.1-0.6) 10^3/c mm Eosinophils (Manua l) 9 % Absolute Eosinophi ls 0.6 (0.0-0.7) 10^3/c mm Basophils (Manual) 0.0 % Absolute Basophils 0.0 (0.0-0.2) 10^3/c mm Platelet Estimate Normal (Normal) PT 13.10 (12.1-14.9) SECO NDS INR 0.96 (0.8-1.2) Sodium 136 (136-145) mmol/L Potassium 3.9 (3.5-5.1) mmol/L Chloride 100 (98-107) mmol/L Carbon Dioxide 29 (22-29) mmol/L Anion Gap 10.9 (5-19) BUN 20 (8-23) mg/dL Creatinine 0.7 (0.5-0.9) mg/dL GFR Calculation Not Reportable Glucose 91 (65-115) mg/dL Calculated Osmolal ity 284 L (285-295) mOsm/k g Calcium 9.0 (8.5-10.5) mg/dL Total Bilirubin 0.6 (0.15-1.2) mg/dL AST 30 (0-32) U/L ALT 40 H (0-33) U/L Alkaline Phosphata se 297 H (35-105) IU/L Total Protein 6.7 (6.6-8.7) g/dL Albumin 3.7 (3.5-5.2) g/dL Globulin 3.0 (1.3-4.6) g/dL Blood Type Rho(D) Type Antibody Screen 05/23/20 Range/Units 17:00 WBC (4.0-10.0) 10^3/ uL RBC (4.1-5.3) 10^6/u L Hgb (11.5-15.3) g/dL Hct (37.0-47.0) % MCV (81-99) fL MCH (28.0-34.0) pg MCHC (30.0-36.0) g/dL RDW (12.1-15.1) % Plt Count (130-400) 10^3/c mm MPV (7.4-10.4) fL Total Counted (0-100) Atypical Lymphs % (0-5) % Absolute Neutrophi ls (1.4-6.5) 10^3/c mm Segmented Neutroph ils % Abs Segm Neuts (Ma n) (1.6-7.1) 10/cmm Band Neutrophils % Abs Band Neuts (Ma n) (0.0-1.2) 10^3/c mm Lymphocytes (Manua l) % Monocytes (Manual) % Absolute Monocytes (0.1-0.6) 10^3/c mm Eosinophils (Manua l) % Absolute Eosinophi ls (0.0-0.7) 10^3/c mm Basophils (Manual) % Absolute Basophils (0.0-0.2) 10^3/c mm Platelet Estimate (Normal) PT (12.1-14.9) SECO NDS INR (0.8-1.2) Sodium (136-145) mmol/L Potassium (3.5-5.1) mmol/L Chloride (98-107) mmol/L Carbon Dioxide (22-29) mmol/L Anion Gap (5-19) BUN (8-23) mg/dL Creatinine (0.5-0.9) mg/dL GFR Calculation Glucose (65-115) mg/dL Calculated Osmolal ity (285-295) mOsm/k g Calcium (8.5-10.5) mg/dL Total Bilirubin (0.15-1.2) mg/dL AST (0-32) U/L ALT (0-33) U/L Alkaline Phosphata se (35-105) IU/L Total Protein (6.6-8.7) g/dL Albumin (3.5-5.2) g/dL Globulin (1.3-4.6) g/dL Blood Type O Positive Rho(D) Type Positive / 4+ Antibody Screen Negative Discharge Plan Discharge Patient Disposition: Home Clinical Impression: Abdominal pain Condition: Stable Prescriptions: No Action sumatriptan succinate 100 mg tablet See Rx Instructions PO .COMPLEX PRN (Reason: Migraine Headache) RF: 0 ondansetron HCl 4 mg tablet 4 mg PO Q12H PRN (Reason: nausea and vomiting) Qty: 60 RF: 0 aspirin [Aspirin Low Dose] 81 mg Tablet,Delayed Release (Dr/Ec) 81 mg PO DAILY@2199 RF: 0 oxycodone 5 mg Tablet 5 mg PO Q6H PRN (Reason: Moderate Pain (Scale Score 5-6)) RF: 0 carvedilol 25 mg tablet 12.5 mg PO BID@ RF: 0 TPN Electrolytes 35-20-5 mEq/20 mL Solution See Rx Instructions .ROUTE .COMPLEX RF: 0 buspirone 10 mg Tablet 5 mg PO BID PRN (Reason: Anxiety) RF: 0 lisinopril 20 mg tablet See Rx Instructions .ROUTE .COMPLEX PRN (Reason: Blood Pressure) RF: 0 Discharge Orders: Discharge ED (Routine); Ordered 05/23/20 Ordered By: Varun Arnold Referrals: Krista Zhang DO [Primary Care Provider] - Discharge Diet: Advance as tolerated Discharge Activity: Resume usual activity Patient Instructions: Abdominal Pain (ED), Opioid Safety Activity Restrictions/Additional Instructions: You came in because your platelet count was low however our lab here which is more accurate shows that your platelet count is normal. Please continue to follow-up with your outpatient providers as you normally have and get your blood rechecked weekly. Return to the ER with worsening symptoms otherwise follow-up with your surgeon and primary care doctor. Coding Level of Care Code ED Auxiliary Equipment Tender for Tad Sanderson
[2020-05-23 20:08] VITALS: BP 133/71; PULSE 64; RESP 16; O2SAT 96
== END 2020-05-23 20:06 | disposition home or self-care (01) ==
PROVIDERS: Nurse Practitioner Family; Emergency Provider Family Medicine; PCP Family Medicine
DX: R10.9 Unspecified abdominal pain (principal); Z79.82 Long term (current) use of aspirin; I25.10 Atherosclerotic heart disease of native coronary artery without angina pectoris; E11.9 Type 2 diabetes mellitus without complications; I10 Essential (primary) hypertension; I25.2 Old myocardial infarction; Z87.891 Personal history of nicotine dependence
CPT/HCPCS: 74177; 80053; 85007; 85027; 85610; 86850; 86900; 99283; Q9967

== ENCOUNTER 2020-05-30 11:21 | Outpatient (CLI) | payer MEDICARE, OTHER, SELFPAY ==
[2020-05-30 12:09] LABS: Basophils # 0.1 10^3/uL (0.0-0.1); Basophils % 0.8 %; Eosinophils # 0.3 10^3/uL (0.0-0.8); Eosinophils % 5.6 %; Hematocrit 43.2 % (37.0-47.0); Hemoglobin 13.8 g/dL (11.5-15.3); Lymphocytes # 2.2 10^3/uL (0.8-4.8); Lymphocytes % 36.8 %; Mean Corpuscular HGB Conc 31.9 g/dL (30.0-36.0); Mean Corpuscular Hemoglobin 29.1 pg (28.0-34.0); Mean Corpuscular Volume 90.9 fL (81-99); Mean Platelet Volume 12.8 fL (7.4-10.4); Monocytes # 0.6 10^3/uL (0.2-0.9); Monocytes % 9.5 %; Neutrophils # 2.86 10^3/uL (1.8-7.7); Neutrophils % 47.1 %; Nucleated Red Blood Cells % 0 %; Platelet Count 169 10^3/cmm (130-400); Red Blood Count 4.75 10^6/uL (4.1-5.3); Red Cell Distribution Width 15.2 % (12.1-15.1); White Blood Count 6.1 10^3/uL (4.0-10.0)
[2020-05-30 12:31] LABS: Alanine Aminotransferase 29 U/L (0-33); Alkaline Phosphatase 232 IU/L (35-105); Anion Gap 17.1 (5-19); Aspartate Amino Transferase 30 U/L (0-32); Blood Urea Nitrogen 21 mg/dL (8-23); Calcium 9.4 mg/dL (8.5-10.5); Carbon Dioxide 26 mmol/L (22-29); Chloride 103 mmol/L (98-107); Glucose 108 mg/dL (65-115); Magnesium 1.8 mg/dL (1.7-2.3); Osmolality Calculated 298 mOsm/kg (285-295); Phosphorus 4.3 mg/dL (2.5-4.5); Potassium 4.1 mmol/L (3.5-5.1); Sodium 142 mmol/L (136-145); Total Bilirubin 0.9 mg/dL (0.15-1.2)
== END 2020-05-30 11:22 | disposition home or self-care (01) ==
LOC: LAB 11:27
PROVIDERS: PCP Family Medicine; Visit Provider Colon & Rectal Surgery
DX: K57.92 Diverticulitis of intestine, part unspecified, without perforation or abscess without bleeding (principal)
CPT/HCPCS: 80053; 83735; 84100; 85025

== ENCOUNTER 2020-06-06 13:31 | Outpatient (CLI) | payer MEDICARE, OTHER, SELFPAY ==
[2020-06-06 13:46] LABS: Basophils % 0.7 %; Eosinophils # 0.2 10^3/uL (0.0-0.8); Eosinophils % 2.5 %; Hematocrit 41.3 % (37.0-47.0); Hemoglobin 13.3 g/dL (11.5-15.3); Lymphocytes # 1.7 10^3/uL (0.8-4.8); Lymphocytes % 27.7 %; Mean Corpuscular HGB Conc 32.2 g/dL (30.0-36.0); Mean Corpuscular Hemoglobin 29.4 pg (28.0-34.0); Mean Corpuscular Volume 91.2 fL (81-99); Mean Platelet Volume 12.6 fL (7.4-10.4); Monocytes # 0.3 10^3/uL (0.2-0.9); Monocytes % 5.2 %; Neutrophils # 3.79 10^3/uL (1.8-7.7); Neutrophils % 63.6 %; Nucleated Red Blood Cells % 0 %; Platelet Count 140 10^3/cmm (130-400); Red Blood Count 4.53 10^6/uL (4.1-5.3); Red Cell Distribution Width 14.6 % (12.1-15.1)
[2020-06-06 14:03] LABS: Alanine Aminotransferase 76 U/L (0-33); Albumin Level 3.9 g/dL (3.5-5.2); Alkaline Phosphatase 347 IU/L (35-105); Anion Gap 12.8 (5-19); Aspartate Amino Transferase 55 U/L (0-32); Blood Urea Nitrogen 19 mg/dL (8-23); Calcium 8.8 mg/dL (8.5-10.5); Carbon Dioxide 26 mmol/L (22-29); Chloride 100 mmol/L (98-107); Globulin 2.9 g/dL (1.3-4.6); Glucose 88 mg/dL (65-115); Magnesium 1.8 mg/dL (1.7-2.3); Osmolality Calculated 282 mOsm/kg (285-295); Phosphorus 3.7 mg/dL (2.5-4.5); Potassium 3.8 mmol/L (3.5-5.1); Sodium 135 mmol/L (136-145); Total Bilirubin 1.5 mg/dL (0.15-1.2); Total Protein 6.8 g/dL (6.6-8.7)
== END 2020-06-06 13:32 | disposition home or self-care (01) ==
LOC: LAB 13:34
PROVIDERS: PCP Family Medicine; Visit Provider Colon & Rectal Surgery
DX: K57.92 Diverticulitis of intestine, part unspecified, without perforation or abscess without bleeding (principal)
CPT/HCPCS: 80053; 83735; 84100; 85025

== ENCOUNTER 2020-06-13 12:47 | Outpatient (CLI) | payer MEDICARE, OTHER, SELFPAY ==
[2020-06-13 13:06] LABS: Basophils # 0.1 10^3/uL (0.0-0.1); Basophils % 0.7 %; Eosinophils # 0.2 10^3/uL (0.0-0.8); Eosinophils % 2.5 %; Hemoglobin 12.2 g/dL (11.5-15.3); Lymphocytes # 2.5 10^3/uL (0.8-4.8); Lymphocytes % 32.4 %; Mean Corpuscular HGB Conc 32.1 g/dL (30.0-36.0); Mean Corpuscular Volume 90.5 fL (81-99); Mean Platelet Volume 12.9 fL (7.4-10.4); Monocytes # 0.9 10^3/uL (0.2-0.9); Monocytes % 11.5 %; Neutrophils # 3.99 10^3/uL (1.8-7.7); Nucleated Red Blood Cells % 0 %; Platelet Count 170 10^3/cmm (130-400); Red Cell Distribution Width 14.6 % (12.1-15.1); White Blood Count 7.7 10^3/uL (4.0-10.0)
[2020-06-13 13:32] LABS: Alanine Aminotransferase 65 U/L (0-33); Albumin Level 3.3 g/dL (3.5-5.2); Alkaline Phosphatase 278 IU/L (35-105); Anion Gap 10.6 (5-19); Aspartate Amino Transferase 43 U/L (0-32); Blood Urea Nitrogen 18 mg/dL (8-23); Calcium 8.6 mg/dL (8.5-10.5); Carbon Dioxide 27 mmol/L (22-29); Chloride 105 mmol/L (98-107); Globulin 2.5 g/dL (1.3-4.6); Glucose 106 mg/dL (65-115); Magnesium 1.8 mg/dL (1.7-2.3); Osmolality Calculated 290 mOsm/kg (285-295); Phosphorus 3.5 mg/dL (2.5-4.5); Potassium 3.6 mmol/L (3.5-5.1); Sodium 139 mmol/L (136-145); Total Bilirubin 1.1 mg/dL (0.15-1.2); Total Protein 5.8 g/dL (6.6-8.7)
== END 2020-06-13 12:48 | disposition home or self-care (01) ==
PROVIDERS: PCP Family Medicine; Visit Provider Colon & Rectal Surgery
DX: K57.92 Diverticulitis of intestine, part unspecified, without perforation or abscess without bleeding (principal)
CPT/HCPCS: 80053; 83735; 84100; 85025

== ENCOUNTER 2020-06-20 13:40 | Outpatient (CLI) | payer MEDICARE, OTHER, SELFPAY ==
[2020-06-20 14:15] LABS: Basophils # 0.1 10^3/uL (0.0-0.1); Basophils % 0.7 %; Eosinophils # 0.1 10^3/uL (0.0-0.8); Eosinophils % 1.8 %; Hematocrit 41.8 % (37.0-47.0); Hemoglobin 13.2 g/dL (11.5-15.3); Lymphocytes # 2.3 10^3/uL (0.8-4.8); Lymphocytes % 30.7 %; Mean Corpuscular HGB Conc 31.6 g/dL (30.0-36.0); Mean Corpuscular Hemoglobin 28.9 pg (28.0-34.0); Mean Corpuscular Volume 91.5 fL (81-99); Mean Platelet Volume 12.5 fL (7.4-10.4); Monocytes # 0.9 10^3/uL (0.2-0.9); Neutrophils % 54.4 %; Nucleated Red Blood Cells % 0 %; Platelet Count 280 10^3/cmm (130-400); Red Blood Count 4.57 10^6/uL (4.1-5.3); White Blood Count 7.4 10^3/uL (4.0-10.0)
[2020-06-20 14:43] LABS: Alanine Aminotransferase 22 U/L (0-33); Albumin Level 3.8 g/dL (3.5-5.2); Alkaline Phosphatase 214 IU/L (35-105); Aspartate Amino Transferase 24 U/L (0-32); Blood Urea Nitrogen 19 mg/dL (8-23); Carbon Dioxide 24 mmol/L (22-29); Chloride 105 mmol/L (98-107); Globulin 2.8 g/dL (1.3-4.6); Glucose 96 mg/dL (65-115); Magnesium 2.1 mg/dL (1.7-2.3); Osmolality Calculated 292 mOsm/kg (285-295); Phosphorus 3.7 mg/dL (2.5-4.5); Sodium 140 mmol/L (136-145); Total Bilirubin 1.1 mg/dL (0.15-1.2); Total Protein 6.6 g/dL (6.6-8.7)
[2020-06-20 14:46] LABS: Anion Gap 15.2 (5-19); Potassium 4.2 mmol/L (3.5-5.1)
== END 2020-06-20 13:41 | disposition home or self-care (01) ==
LOC: LAB 13:47
PROVIDERS: PCP Family Medicine; Visit Provider Colon & Rectal Surgery
DX: K57.92 Diverticulitis of intestine, part unspecified, without perforation or abscess without bleeding (principal)
CPT/HCPCS: 80053; 83735; 84100; 85025

== ENCOUNTER 2020-06-27 13:23 | Outpatient (CLI) | payer MEDICARE, OTHER, SELFPAY ==
[2020-06-27 14:13] LABS: Basophils # 0.1 10^3/uL (0.0-0.1); Basophils % 0.9 %; Eosinophils # 0.2 10^3/uL (0.0-0.8); Eosinophils % 3.2 %; Hematocrit 41.6 % (37.0-47.0); Hemoglobin 13.2 g/dL (11.5-15.3); Lymphocytes # 2.1 10^3/uL (0.8-4.8); Mean Corpuscular HGB Conc 31.7 g/dL (30.0-36.0); Mean Corpuscular Hemoglobin 29.3 pg (28.0-34.0); Mean Corpuscular Volume 92.4 fL (81-99); Mean Platelet Volume 12.5 fL (7.4-10.4); Monocytes # 0.6 10^3/uL (0.2-0.9); Monocytes % 9.7 %; Neutrophils # 2.77 10^3/uL (1.8-7.7); Neutrophils % 48.8 %; Nucleated Red Blood Cells % 0 %; Platelet Count 221 10^3/cmm (130-400); Red Cell Distribution Width 13.6 % (12.1-15.1); White Blood Count 5.7 10^3/uL (4.0-10.0)
[2020-06-27 14:37] LABS: Alanine Aminotransferase 17 U/L (0-33); Albumin Level 3.5 g/dL (3.5-5.2); Alkaline Phosphatase 164 IU/L (35-105); Aspartate Amino Transferase 25 U/L (0-32); Blood Urea Nitrogen 16 mg/dL (8-23); Calcium 8.7 mg/dL (8.5-10.5); Carbon Dioxide 26 mmol/L (22-29); Chloride 105 mmol/L (98-107); Globulin 2.9 g/dL (1.3-4.6); Glucose 102 mg/dL (65-115); Magnesium 1.8 mg/dL (1.7-2.3); Osmolality Calculated 293 mOsm/kg (285-295); Phosphorus 3.3 mg/dL (2.5-4.5); Sodium 141 mmol/L (136-145); Total Bilirubin 0.8 mg/dL (0.15-1.2); Total Protein 6.4 g/dL (6.6-8.7)
== END 2020-06-27 13:24 | disposition home or self-care (01) ==
PROVIDERS: PCP Family Medicine; Visit Provider Colon & Rectal Surgery
DX: K57.92 Diverticulitis of intestine, part unspecified, without perforation or abscess without bleeding (principal)
CPT/HCPCS: 80053; 83735; 84100; 85025

== ENCOUNTER 2020-07-03 15:07 | Outpatient (CLI) | payer MEDICARE, OTHER, SELFPAY ==
[2020-07-03 16:40] LABS: Basophils % 0.6 %; Eosinophils # 0.4 10^3/uL (0.0-0.8); Eosinophils % 5.2 %; Hematocrit 42.7 % (37.0-47.0); Hemoglobin 13.2 g/dL (11.5-15.3); Lymphocytes # 2.7 10^3/uL (0.8-4.8); Lymphocytes % 38.1 %; Mean Corpuscular HGB Conc 30.9 g/dL (30.0-36.0); Mean Corpuscular Hemoglobin 29.3 pg (28.0-34.0); Mean Corpuscular Volume 94.7 fL (81-99); Mean Platelet Volume 12.5 fL (7.4-10.4); Monocytes # 0.7 10^3/uL (0.2-0.9); Monocytes % 9.3 %; Neutrophils # 3.31 10^3/uL (1.8-7.7); Neutrophils % 46.5 %; Nucleated Red Blood Cells % 0 %; Platelet Count 162 10^3/cmm (130-400); Red Blood Count 4.51 10^6/uL (4.1-5.3); Red Cell Distribution Width 13.5 % (12.1-15.1); White Blood Count 7.1 10^3/uL (4.0-10.0)
[2020-07-03 16:53] LABS: Alanine Aminotransferase 15 U/L (0-33); Albumin Level 3.5 g/dL (3.5-5.2); Alkaline Phosphatase 135 IU/L (35-105); Anion Gap 14.7 (5-19); Aspartate Amino Transferase 24 U/L (0-32); Blood Urea Nitrogen 21 mg/dL (8-23); Calcium 8.6 mg/dL (8.5-10.5); Carbon Dioxide 27 mmol/L (22-29); Chloride 105 mmol/L (98-107); Globulin 2.9 g/dL (1.3-4.6); Glucose 70 mg/dL (65-115); Magnesium 1.9 mg/dL (1.7-2.3); Osmolality Calculated 297 mOsm/kg (285-295); Phosphorus 3.5 mg/dL (2.5-4.5); Potassium 3.7 mmol/L (3.5-5.1); Sodium 143 mmol/L (136-145); Total Bilirubin 0.8 mg/dL (0.15-1.2); Total Protein 6.4 g/dL (6.6-8.7)
[2020-07-03 16:59] LABS: Estmated Average Glucose 108; Hemoglobin A1C 5.4 % (4.0-6.0)
== END 2020-07-03 15:08 | disposition home or self-care (01) ==
LOC: LAB 15:29
PROVIDERS: PCP Family Medicine; Visit Provider Colon & Rectal Surgery
DX: K57.92 Diverticulitis of intestine, part unspecified, without perforation or abscess without bleeding (principal); E11.9 Type 2 diabetes mellitus without complications
CPT/HCPCS: 80053; 83036; 83735; 84100; 85025

== ENCOUNTER 2020-07-11 12:42 | Outpatient (CLI) | payer MEDICARE, OTHER, SELFPAY ==
[2020-07-11 13:06] LABS: Basophils # 0.1 10^3/uL (0.0-0.1); Basophils % 0.7 %; Eosinophils # 0.3 10^3/uL (0.0-0.8); Hematocrit 41.7 % (37.0-47.0); Hemoglobin 13.3 g/dL (11.5-15.3); Mean Corpuscular HGB Conc 31.9 g/dL (30.0-36.0); Mean Corpuscular Hemoglobin 28.9 pg (28.0-34.0); Mean Corpuscular Volume 90.5 fL (81-99); Mean Platelet Volume 13.1 fL (7.4-10.4); Monocytes # 0.6 10^3/uL (0.2-0.9); Monocytes % 8.5 %; Neutrophils % 44.5 %; Nucleated Red Blood Cells % 0 %; Platelet Count 191 10^3/cmm (130-400); Red Blood Count 4.61 10^6/uL (4.1-5.3); Red Cell Distribution Width 13.3 % (12.1-15.1); White Blood Count 7.2 10^3/uL (4.0-10.0)
[2020-07-11 13:54] LABS: Alanine Aminotransferase 30 U/L (0-33); Albumin Level 3.8 g/dL (3.5-5.2); Alkaline Phosphatase 125 IU/L (35-105); Anion Gap 15.1 (5-19); Aspartate Amino Transferase 34 U/L (0-32); Blood Urea Nitrogen 21 mg/dL (8-23); Calcium 8.7 mg/dL (8.5-10.5); Carbon Dioxide 25 mmol/L (22-29); Chloride 103 mmol/L (98-107); Globulin 2.7 g/dL (1.3-4.6); Glucose 90 mg/dL (65-115); Magnesium 1.8 mg/dL (1.7-2.3); Osmolality Calculated 291 mOsm/kg (285-295); Phosphorus 4.1 mg/dL (2.5-4.5); Potassium 4.1 mmol/L (3.5-5.1); Sodium 139 mmol/L (136-145); Total Bilirubin 0.7 mg/dL (0.15-1.2); Total Protein 6.5 g/dL (6.6-8.7)
== END 2020-07-11 12:43 | disposition home or self-care (01) ==
PROVIDERS: PCP Family Medicine; Visit Provider Colon & Rectal Surgery
DX: K57.92 Diverticulitis of intestine, part unspecified, without perforation or abscess without bleeding (principal)
CPT/HCPCS: 80053; 83735; 84100; 85025

== ENCOUNTER 2020-07-13 13:05 | Outpatient (CLI) | payer MEDICARE, OTHER, SELFPAY ==
--- NOTE | 2020-07-13 13:00 | CT_ITS ---
WS: [id number] CT ABDOMEN AND PELVIS WITH CONTRAST HISTORY: DIVERTICULITIS, FISTULA TECHNIQUE: Imaging performed of the abdomen and pelvis with IV contrast. Single phase imaging of the abdomen. Coronal and sagittal reformats are submitted. All CT scans at [facility] use at least one of these dose optimization techniques: automated exposure control; mA and/or kV adjustment per patient size (includes targeted exams where dose is matched to clinical indication); or iterativ e reconstruction. IV CONTRAST: Omnipaque 300; 95 mL IV. Oral contrast: Yes. DLP: 1027.73 mGycm COMPARISON: 05/23/2020 and 01/12/2020 Lower thorax: Lung bases are clear. Heart is normal size. No hiatal hernia. Liver/biliary system: New pneumobilia is present. Moderate amount of pneumobilia and air extends thro ugh the common bile duct. There is now less common bile duct stent which appears patent. Gallbladder: Status post cholecystectomy. Pancreas: Pancreas is normal. There is a stent through the common bile duct. Spleen: Normal size spleen with several granulomata. Adrenal glands: Normal. Right kidney: Normal. Left kidney: Too small to characterize hypodensity. No obstruction. Aorta: Mild atherosclerosis with no aneurysm. Lymphadenopathy: None. Free fluid: None. GI tract: There is increased fluid and fecal material in the RIGHT colon, particularly the cecum. Dis ingris small bowel contains increased fluid and there is mild fecalization. No obstruction. Surgical sut ures are noted near the rectum. Prior appendectomy. Abdominal wall: There is a percutaneous drainage catheter entering to the LEFT abdominal wall. Cathet er is coiled in the anterior LEFT peritoneum but there is no associated drainable collection. Postsur gical changes are noted along the midline of the anterior abdominal wall. No complications or abscess . Pelvis: No free fluid or adenopathy within the pelvis. Prior hysterectomy. Bones: Moderate degenerative disc disease at L4-5. No osteoblastic or osteolytic bone disease. CT/CT abdomen pelvis w con* [id number] IMPRESSION: 1. Percutaneous drainage catheter enters the LEFT abdominal wall with no resid ual collection around the pigtail in the peritoneal space. 2. There is increased fecal material and fluid in the RIGHT colon and distal s mall bowel but no obstruction. 3. Interval placement of a CBD stent now with pneumobilia. No residual biliary 4. Prior cholecystectomy, appendectomy and hysterectomy.
[2020-07-13] MEDS: iohexol 300 mg/mL 50 mL Btl PO (13:53)
[2020-07-13] MEDS: iohexol 300 mg/mL 100 mL Btl IV (14:42)
== END 2020-07-13 13:06 | disposition home or self-care (01) ==
PROVIDERS: PCP Family Medicine; Visit Provider Surgery
DX: K57.92 Diverticulitis of intestine, part unspecified, without perforation or abscess without bleeding (principal); Z90.49 Acquired absence of other specified parts of digestive tract; Q42.8 Congenital absence, atresia and stenosis of other parts of large intestine; Z90.710 Acquired absence of both cervix and uterus
CPT/HCPCS: 74177; Q9967

== ENCOUNTER 2020-07-17 14:48 | Outpatient (CLI) | payer MEDICARE, OTHER, SELFPAY ==
[2020-07-17 16:20] LABS: Basophils # 0.1 10^3/uL (0.0-0.1); Basophils % 0.7 %; Eosinophils # 0.3 10^3/uL (0.0-0.8); Hemoglobin 13.8 g/dL (11.5-15.3); Lymphocytes # 2.7 10^3/uL (0.8-4.8); Lymphocytes % 37.2 %; Mean Corpuscular HGB Conc 32.1 g/dL (30.0-36.0); Mean Corpuscular Volume 90.3 fL (81-99); Mean Platelet Volume 12.9 fL (7.4-10.4); Monocytes # 0.7 10^3/uL (0.2-0.9); Monocytes % 9.2 %; Neutrophils # 3.53 10^3/uL (1.8-7.7); Neutrophils % 48.6 %; Nucleated Red Blood Cells % 0 %; Platelet Count 194 10^3/cmm (130-400); Red Blood Count 4.76 10^6/uL (4.1-5.3); Red Cell Distribution Width 13.5 % (12.1-15.1); White Blood Count 7.3 10^3/uL (4.0-10.0)
[2020-07-17 16:47] LABS: Alanine Aminotransferase 24 U/L (0-33); Albumin Level 3.7 g/dL (3.5-5.2); Alkaline Phosphatase 119 IU/L (35-105); Anion Gap 15.8 (5-19); Aspartate Amino Transferase 25 U/L (0-32); Blood Urea Nitrogen 18 mg/dL (8-23); Calcium 8.8 mg/dL (8.5-10.5); Carbon Dioxide 26 mmol/L (22-29); Chloride 102 mmol/L (98-107); Globulin 2.9 g/dL (1.3-4.6); Glucose 81 mg/dL (65-115); Magnesium 1.9 mg/dL (1.7-2.3); Osmolality Calculated 291 mOsm/kg (285-295); Phosphorus 3.7 mg/dL (2.5-4.5); Potassium 3.8 mmol/L (3.5-5.1); Sodium 140 mmol/L (136-145); Total Bilirubin 0.9 mg/dL (0.15-1.2); Total Protein 6.6 g/dL (6.6-8.7)
== END 2020-07-17 14:49 | disposition home or self-care (01) ==
LOC: LAB 15:07
PROVIDERS: PCP Family Medicine; Visit Provider Colon & Rectal Surgery
DX: K57.92 Diverticulitis of intestine, part unspecified, without perforation or abscess without bleeding (principal)
CPT/HCPCS: 80053; 83735; 84100; 85025

== ENCOUNTER 2020-08-01 12:40 | Outpatient (RCR) | payer MEDICARE, OTHER, SELFPAY ==
[2020-08-01 13:00] LABS: Basophils # 0.1 10^3/uL (0.0-0.1); Basophils % 0.7 %; Eosinophils # 0.3 10^3/uL (0.0-0.8); Eosinophils % 4.3 %; Hematocrit 42.4 % (37.0-47.0); Hemoglobin 13.5 g/dL (11.5-15.3); Lymphocytes # 2.7 10^3/uL (0.8-4.8); Lymphocytes % 38.2 %; Mean Corpuscular HGB Conc 31.8 g/dL (30.0-36.0); Mean Corpuscular Hemoglobin 28.9 pg (28.0-34.0); Mean Corpuscular Volume 90.8 fL (81-99); Monocytes # 0.6 10^3/uL (0.2-0.9); Monocytes % 7.9 %; Neutrophils # 3.44 10^3/uL (1.8-7.7); Neutrophils % 48.8 %; Nucleated Red Blood Cells % 0 %; Platelet Count 159 10^3/cmm (130-400); Red Blood Count 4.67 10^6/uL (4.1-5.3); Red Cell Distribution Width 13.7 % (12.1-15.1); White Blood Count 7.1 10^3/uL (4.0-10.0)
[2020-08-01 13:20] LABS: Alanine Aminotransferase 36 U/L (0-33); Albumin Level 3.9 g/dL (3.5-5.2); Alkaline Phosphatase 154 IU/L (35-105); Anion Gap 15.4 (5-19); Aspartate Amino Transferase 42 U/L (0-32); Blood Urea Nitrogen 19 mg/dL (8-23); Calcium 8.6 mg/dL (8.5-10.5); Carbon Dioxide 24 mmol/L (22-29); Chloride 108 mmol/L (98-107); Globulin 2.3 g/dL (1.3-4.6); Glucose 103 mg/dL (65-115); Magnesium 1.9 mg/dL (1.7-2.3); Osmolality Calculated 299 mOsm/kg (285-295); Phosphorus 4.1 mg/dL (2.5-4.5); Potassium 4.4 mmol/L (3.5-5.1); Sodium 143 mmol/L (136-145); Total Bilirubin 0.6 mg/dL (0.15-1.2); Total Protein 6.2 g/dL (6.6-8.7)
== END 2020-08-08 23:59 | disposition home or self-care (01) ==
LOC: LAB 12:40
PROVIDERS: PCP Family Medicine; Visit Provider Colon & Rectal Surgery
DX: K57.92 Diverticulitis of intestine, part unspecified, without perforation or abscess without bleeding (principal); K21.9 Gastro-esophageal reflux disease without esophagitis; E11.9 Type 2 diabetes mellitus without complications; I10 Essential (primary) hypertension; Z79.899 Other long term (current) drug therapy
CPT/HCPCS: 80053; 83735; 84100; 85025

== ENCOUNTER 2020-08-15 12:33 | Outpatient (CLI) | payer MEDICARE, OTHER, SELFPAY ==
[2020-08-15 13:09] LABS: Basophils # 0.1 10^3/uL (0.0-0.1); Basophils % 0.9 %; Eosinophils # 0.4 10^3/uL (0.0-0.8); Eosinophils % 5.7 %; Hematocrit 44.3 % (37.0-47.0); Lymphocytes # 2.8 10^3/uL (0.8-4.8); Lymphocytes % 40.8 %; Mean Corpuscular HGB Conc 31.6 g/dL (30.0-36.0); Mean Corpuscular Hemoglobin 28.6 pg (28.0-34.0); Mean Corpuscular Volume 90.6 fL (81-99); Mean Platelet Volume 12.5 fL (7.4-10.4); Monocytes # 0.6 10^3/uL (0.2-0.9); Monocytes % 8.9 %; Neutrophils % 43.6 %; Nucleated Red Blood Cells % 0 %; Platelet Count 185 10^3/cmm (130-400); Red Blood Count 4.89 10^6/uL (4.1-5.3); Red Cell Distribution Width 13.4 % (12.1-15.1); White Blood Count 6.9 10^3/uL (4.0-10.0)
[2020-08-15 13:24] LABS: Alanine Aminotransferase 37 U/L (0-33); Albumin Level 3.9 g/dL (3.5-5.2); Alkaline Phosphatase 140 IU/L (35-105); Anion Gap 15.2 (5-19); Aspartate Amino Transferase 53 U/L (0-32); Blood Urea Nitrogen 23 mg/dL (8-23); Calcium 8.9 mg/dL (8.5-10.5); Carbon Dioxide 27 mmol/L (22-29); Chloride 104 mmol/L (98-107); Globulin 2.9 g/dL (1.3-4.6); Glucose 96 mg/dL (65-115); Osmolality Calculated 298 mOsm/kg (285-295); Phosphorus 3.9 mg/dL (2.5-4.5); Potassium 4.2 mmol/L (3.5-5.1); Sodium 142 mmol/L (136-145); Total Bilirubin 0.9 mg/dL (0.15-1.2); Total Protein 6.8 g/dL (6.6-8.7)
== END 2020-08-15 12:34 | disposition home or self-care (01) ==
PROVIDERS: PCP Family Medicine; Visit Provider Colon & Rectal Surgery
DX: K57.92 Diverticulitis of intestine, part unspecified, without perforation or abscess without bleeding (principal)
CPT/HCPCS: 80053; 83735; 84100; 85025

== ENCOUNTER 2020-08-29 12:39 | Outpatient (CLI) | payer MEDICARE, OTHER, SELFPAY ==
[2020-08-29 12:59] LABS: Basophils # 0.1 10^3/uL (0.0-0.1); Basophils % 0.8 %; Eosinophils # 0.3 10^3/uL (0.0-0.8); Eosinophils % 4.4 %; Hemoglobin 12.9 g/dL (11.5-15.3); Lymphocytes # 2.7 10^3/uL (0.8-4.8); Lymphocytes % 42.4 %; Mean Corpuscular HGB Conc 32.3 g/dL (30.0-36.0); Mean Corpuscular Hemoglobin 29.2 pg (28.0-34.0); Mean Corpuscular Volume 90.5 fL (81-99); Mean Platelet Volume 13.1 fL (7.4-10.4); Monocytes # 0.6 10^3/uL (0.2-0.9); Neutrophils # 2.72 10^3/uL (1.8-7.7); Neutrophils % 43.2 %; Nucleated Red Blood Cells % 0 %; Platelet Count 161 10^3/cmm (130-400); Red Blood Count 4.42 10^6/uL (4.1-5.3); Red Cell Distribution Width 13.8 % (12.1-15.1); White Blood Count 6.3 10^3/uL (4.0-10.0)
[2020-08-29 13:27] LABS: Slide Review Slide Review Perform
[2020-08-29 13:55] LABS: Alanine Aminotransferase 50 U/L (0-33); Albumin Level 3.8 g/dL (3.5-5.2); Alkaline Phosphatase 219 IU/L (35-105); Anion Gap 14.9 (5-19); Aspartate Amino Transferase 32 U/L (0-32); Blood Urea Nitrogen 18 mg/dL (8-23); Carbon Dioxide 24 mmol/L (22-29); Chloride 107 mmol/L (98-107); Globulin 1.9 g/dL (1.3-4.6); Glucose 83 mg/dL (65-115); Magnesium 1.8 mg/dL (1.7-2.3); Osmolality Calculated 295 mOsm/kg (285-295); Phosphorus 3.6 mg/dL (2.5-4.5); Potassium 3.9 mmol/L (3.5-5.1); Sodium 142 mmol/L (136-145); Thyroid Stimulating Hormone 1.36 uIU/mL (0.27-4.20); Total Protein 5.7 g/dL (6.6-8.7)
[2020-08-29 13:56] LABS: Rapid Plasma Reagin Syphilis Nonreactive (Nonreactive)
[2020-08-29 14:30] LABS: Vitamin B12 994 pg/mL (232-1245)
== END 2020-08-29 12:40 | disposition home or self-care (01) ==
PROVIDERS: PCP Family Medicine; Visit Provider Colon & Rectal Surgery
DX: K57.92 Diverticulitis of intestine, part unspecified, without perforation or abscess without bleeding (principal)
CPT/HCPCS: 80053; 82248; 82607; 83735; 84100; 84443; 85025; 86592

== ENCOUNTER 2020-09-12 13:01 | Outpatient (CLI) | payer MEDICARE, OTHER, SELFPAY ==
[2020-09-12 13:43] LABS: Basophils # 0.1 10^3/uL (0.0-0.1); Basophils % 0.8 %; Eosinophils # 0.4 10^3/uL (0.0-0.8); Eosinophils % 5.6 %; Hematocrit 39.3 % (37.0-47.0); Hemoglobin 12.5 g/dL (11.5-15.3); Lymphocytes # 2.3 10^3/uL (0.8-4.8); Mean Corpuscular HGB Conc 31.8 g/dL (30.0-36.0); Mean Corpuscular Hemoglobin 29.1 pg (28.0-34.0); Mean Corpuscular Volume 91.6 fL (81-99); Mean Platelet Volume 12.3 fL (7.4-10.4); Monocytes # 0.6 10^3/uL (0.2-0.9); Neutrophils # 3.04 10^3/uL (1.8-7.7); Neutrophils % 48.3 %; Nucleated Red Blood Cells % 0 %; Platelet Count 172 10^3/cmm (130-400); Red Blood Count 4.29 10^6/uL (4.1-5.3); Red Cell Distribution Width 13.9 % (12.1-15.1); White Blood Count 6.3 10^3/uL (4.0-10.0)
[2020-09-12 14:04] LABS: Alanine Aminotransferase 32 U/L (0-33); Albumin Level 3.5 g/dL (3.5-5.2); Alkaline Phosphatase 172 IU/L (35-105); Anion Gap 11.7 (5-19); Aspartate Amino Transferase 29 U/L (0-32); Blood Urea Nitrogen 16 mg/dL (8-23); Calcium 9.1 mg/dL (8.5-10.5); Carbon Dioxide 26 mmol/L (22-29); Chloride 107 mmol/L (98-107); Globulin 2.4 g/dL (1.3-4.6); Glucose 81 mg/dL (65-115); Magnesium 1.6 mg/dL (1.7-2.3); Osmolality Calculated 292 mOsm/kg (285-295); Phosphorus 3.4 mg/dL (2.5-4.5); Potassium 3.7 mmol/L (3.5-5.1); Sodium 141 mmol/L (136-145); Total Bilirubin 0.6 mg/dL (0.15-1.2); Total Protein 5.9 g/dL (6.6-8.7)
== END 2020-09-12 13:02 | disposition home or self-care (01) ==
PROVIDERS: PCP Family Medicine; Visit Provider Surgery
DX: K57.92 Diverticulitis of intestine, part unspecified, without perforation or abscess without bleeding (principal)
CPT/HCPCS: 80053; 83735; 84100; 85025

== ENCOUNTER 2020-09-26 14:20 | Outpatient (CLI) | payer MEDICARE, OTHER, SELFPAY ==
[2020-09-26 15:04] LABS: Alanine Aminotransferase 33 U/L (0-33); Albumin Level 3.7 g/dL (3.5-5.2); Alkaline Phosphatase 196 IU/L (35-105); Anion Gap 14.7 (5-19); Aspartate Amino Transferase 37 U/L (0-32); Blood Urea Nitrogen 19 mg/dL (8-23); Calcium 8.7 mg/dL (8.5-10.5); Carbon Dioxide 26 mmol/L (22-29); Chloride 104 mmol/L (98-107); Globulin 2.8 g/dL (1.3-4.6); Glucose 72 mg/dL (65-115); Magnesium 1.8 mg/dL (1.7-2.3); Osmolality Calculated 293 mOsm/kg (285-295); Phosphorus 3.1 mg/dL (2.5-4.5); Potassium 3.7 mmol/L (3.5-5.1); Sodium 141 mmol/L (136-145); Total Bilirubin 0.6 mg/dL (0.15-1.2); Total Protein 6.5 g/dL (6.6-8.7)
[2020-09-26 15:07] LABS: Hematocrit 41.6 % (37.0-47.0); Hemoglobin 13.4 g/dL (11.5-15.3); Mean Corpuscular HGB Conc 32.2 g/dL (30.0-36.0); Mean Corpuscular Hemoglobin 29.3 pg (28.0-34.0); Mean Platelet Volume 12.2 fL (7.4-10.4); Platelet Count 159 10^3/cmm (130-400); Red Blood Count 4.57 10^6/uL (4.1-5.3); Red Cell Distribution Width 13.9 % (12.1-15.1); White Blood Count 6.3 10^3/uL (4.0-10.0)
[2020-09-26 15:17] LABS: Absolute Eosinophils 0.5 10^3/cmm (0.0-0.7); Absolute Neutrophil 2.5 10^3/cmm (1.4-6.5); Absolute Segmented Neutrophil 2.3 10/cmm (1.6-7.1); Band Neutrophils Absolute 0.2 10^3/cmm (0.0-1.2); Eosinophils 8 %; Giant Platelets Trace; Lymphocytes 36 %; Lymphocytes Absolute 2.3 10^3/cmm (1.2-3.4); Platelet Estimate Normal (Normal); Segmented Neutrophils 37 %; Total Cells Counted 100 (0-100)
== END 2020-09-26 14:21 | disposition home or self-care (01) ==
LOC: LAB 14:25
PROVIDERS: PCP Family Medicine; Visit Provider Surgery
DX: Z90.49 Acquired absence of other specified parts of digestive tract (principal); Z45.2 Encounter for adjustment and management of vascular access device
CPT/HCPCS: 80053; 83735; 84100; 85007; 85027

== ENCOUNTER 2020-10-10 10:40 | Outpatient (CLI) | payer MEDICARE, OTHER, SELFPAY ==
[2020-10-10 11:00] LABS: Basophils % 0.4 %; Eosinophils # 0.3 10^3/uL (0.0-0.8); Eosinophils % 3.5 %; Hematocrit 34.8 % (37.0-47.0); Hemoglobin 11.1 g/dL (11.5-15.3); Lymphocytes # 0.9 10^3/uL (0.8-4.8); Lymphocytes % 11.5 %; Mean Corpuscular HGB Conc 31.9 g/dL (30.0-36.0); Mean Corpuscular Hemoglobin 28.9 pg (28.0-34.0); Mean Corpuscular Volume 90.6 fL (81-99); Mean Platelet Volume 12.2 fL (7.4-10.4); Monocytes # 0.7 10^3/uL (0.2-0.9); Monocytes % 9.3 %; Neutrophils # 5.54 10^3/uL (1.8-7.7); Neutrophils % 74.8 %; Nucleated Red Blood Cells % 0 %; Platelet Count 146 10^3/cmm (130-400); Red Blood Count 3.84 10^6/uL (4.1-5.3); Red Cell Distribution Width 14.4 % (12.1-15.1); White Blood Count 7.4 10^3/uL (4.0-10.0)
[2020-10-10 11:18] LABS: Alanine Aminotransferase 82 U/L (0-33); Alkaline Phosphatase 480 IU/L (35-105); Anion Gap 12.4 (5-19); Aspartate Amino Transferase 50 U/L (0-32); Blood Urea Nitrogen 15 mg/dL (8-23); Carbon Dioxide 26 mmol/L (22-29); Chloride 103 mmol/L (98-107); Globulin 2.5 g/dL (1.3-4.6); Glucose 122 mg/dL (65-115); Magnesium 1.8 mg/dL (1.7-2.3); Osmolality Calculated 286 mOsm/kg (285-295); Phosphorus 3.7 mg/dL (2.5-4.5); Potassium 4.4 mmol/L (3.5-5.1); Sodium 137 mmol/L (136-145); Total Bilirubin 1.2 mg/dL (0.15-1.2); Total Protein 5.5 g/dL (6.6-8.7)
== END 2020-10-10 10:41 | disposition home or self-care (01) ==
PROVIDERS: PCP Family Medicine; Visit Provider Surgery
DX: K57.92 Diverticulitis of intestine, part unspecified, without perforation or abscess without bleeding (principal)
CPT/HCPCS: 80053; 83735; 84100; 85025

== ENCOUNTER 2020-10-11 17:14 | Emergency (ER) | payer MEDICARE, OTHER, SELFPAY ==
[2020-10-11 17:38] VITALS: BP 169/83; PULSE 77; RESP 24; TEMP 36.4; O2SAT 96; BMI 27.4
[2020-10-11 18:46] VITALS: BP 179/67; PULSE 85; RESP 20; O2SAT 97
--- NOTE | 2020-10-11 18:57 | ED_ITS ---
HPI - Neck Pain/Injury General: Chief Complaint: General Medical Stated Complaint: Pain in Uppper back/ neck, Cyst on neck Time Seen by Provider: 10/11/20 18:36 Source: patient and family () Mode of arrival: wheelchair Limitations: no limitations History of Present Illness: HPI Narrative: Patient is a nice 75-year-old female who presents to ED today along with her for complaints of severe neck pain. Patient tells me she has been diagnosed previously with a spinal cyst . She states several years ago she required some form of interventional radiology on the cyst that was performed by a neurosurgeon in [place]. states patient has had on and off problems with it since that time. She states over the past week pain has been unbearable. She saw Dr. Britt earlier this morning who prescribed morphine and muscle relaxers. Patient states she went home and took these and they did not help with her discomfort so was told to come to the ED. He is apparently trying to get her set up with an outpatient MRI for further evaluation. She is not complaining of numbness, tingling, loss of sensation, or weakness to her upper extremities. MD complaint: neck pain Onset (ago): day(s) Place: home Radiation: left lateral and occiput Severity: severe Severity scale (1-10): >10 Relieving factors: none Exacerbating factors: none Associated symptoms: Reports no associated symptoms; Denies headache(s) or nausea Review of Systems Const: Denies: fever(s), chills, body aches, fatigue or malaise Eyes: Denies: change in vision, blurry vision, photophobia, floaters or seeing flashes ENMT: Denies: throat pain, odynophagia, nasal discharge or nasal congestion Card: Denies: chest pain Resp: Denies: dyspnea GI: Denies: abdominal pain, nausea or vomiting Musc: Reports: neck pain; Denies: back pain, extremity pain, extremity swelling, joint pain or joint swelling Skin/Breast: Denies: rash Neuro: Denies: headache(s), numbness in extremities, weakness in extremities or sensory changes [facility] ED PFSH: Medical History (Updated 10/11/20 @ 21:11 by PILAR Villarreal) Colonic diverticular abscess Coronary disease Diabetes Diet controlled GERD (gastroesophageal reflux disease) Gout Hypertension Migraine Myocardial infarction Necrotizing fasciitis Osteoarthritis Pericarditis Scleroderma Surgical History H/O colectomy H/O hernia repair History of cholecystectomy S/P dilatation of esophageal stricture S/P ANH-BSO Family History Mother Congestive heart failure Social History Smoking and tobacco status: former smoker Alcohol intake: never Physical Exam Const: COMMON NORMALS: average body habitus, patient oriented x3, no limitations, healthy appearing, alert and well nourished GENERAL APPEARANCE: cooperative and in distress (appears very uncomfortable secondary to pain) ORIENTATION/CONSCIOUSNESS: Yes awake, Yes oriented to person, Yes oriented to place and Yes oriented to time HENMT: COMMON NORMALS: normocephalic and atraumatic HEAD & SCALP: normocephalic and atraumatic Neck/C-Spine: COMMON NORMALS: no lymphadenopathy NECK IMAGES: 1. severe pain Resp: COMMON NORMALS: normal respiratory effort and clear to auscultation bilaterally AUSCULTATION: clear to auscultation bilaterally Cardio: COMMON NORMALS: regular rate and regular rhythm RATE: regular rate RHYTHM: regular rhythm Extremity: NARRATIVE EXTREMITY EXAM: R UE PICC line appears clean Neuro: TRAMAINE COMA SCALE: document GCS findings Tramaine coma scale eye opening: Spontaneous Tramaine coma scale verbal response: Orientated Tramaine coma scale motor response: Obey commands Tramaine coma scale total score: 15 COMMON NORMALS: patient oriented x3, CN's II-XII intact bilaterally, moves all extremities, no focal motor deficits, no sensory deficits noted and gait normal SENSORIUM/ORIENTATION: Yes alert, Yes oriented to person, Yes oriented to place and Yes oriented to time Skin: COMMON NORMALS: no rashes or lesions noted GENERAL SKIN EXAM: no rashes or lesions noted Course Vital Signs: Vital signs: Vital Signs Temperature 97.5 F L 10/11/20 17:38 Pulse Rate 79 10/11/20 21:00 Respiratory Rate 18 10/11/20 21:00 Blood Pressure 137/56 10/11/20 21:00 Pulse Oximetry 93 10/11/20 21:00 MDM - Neck Pain/Injury MDM Narrative: Medical decision making narrative: Upon re-examination patient is resting comfortably asleep. When I wake her up she immediately begins complaining of 10/[address] scan does show a 6 mm lesion in the C4 vertebral body potentially a small hemangioma. Patient tells me her pain today is identi jose to pains she has had previously only worse. She has been prescribed oral morphine and flexeril by Dr. Britt. Recommend she follow-up with her neurosurgeon in [place] who performed the interventional procedure previously-states Dr. Britt was going to call there and try and get her an appo intment. Has been requesting additional pain medications along with the morphine as he does not feel this is working. I counseled patient on the risks of excessive narcotic use and potential side effects and adverse reactions including altered mental status, increased risk of falls, somnolence, co nstipation, etc. Recommended contact Dr. Britt tomorrow as he was the one the prescribed morphine to see if he feels like any additional pain medications are indicated. Will place patient on steroids. I do not feel patient needs emergent transfer or admission at this time-this would be extremely difficult given the current pandemic and bed situation across the [facility]. Of note patient was noted to have elevated liver enzymes. states patient has had multiple abdominal surgeries. She had some type of biliary stent placed 6 months ago and states it was removed one month ago. This was done by Dr. Del Rio in [place]. Most of these LFT elevations seem stable but her tbili is elevated at 1.5. She is status post cholecystectomy. Will have case management try to get her an appointment with Dr. Del Rio as soon as possible for re-evaluation in case stent needs to be replaced. She has no abdominal pain, jaundice, nausea/vomiting, or fevers at this time. Lab Data: Labs: Lab Results 10/11/20 10/11/20 Range/Units 19:32 19:32 WBC 9.7 (4.0-10.0) 10^3/ uL RBC 4.03 L (4.1-5.3) 10^6/u L Hgb 11.6 (11.5-15.3) g/dL Hct 36.6 L (37.0-47.0) % MCV 90.8 (81-99) fL MCH 28.8 (28.0-34.0) pg MCHC 31.7 (30.0-36.0) g/dL RDW 14.4 (12.1-15.1) % Plt Count 174 (130-400) 10^3/c mm MPV 11.6 H (7.4-10.4) fL Neut % (Auto) 68.0 % Lymph % (Auto) 15.3 % Ward % (Auto) 14.5 % Eos % (Auto) 1.4 % Baso % (Auto) 0.3 % Neut # (Auto) 6.57 (1.8-7.7) 10^3/u L Lymph # (Auto) 1.5 (0.8-4.8) 10^3/u L Ward # (Auto) 1.4 H (0.2-0.9) 10^3/u L Eos # (Auto) 0.1 (0.0-0.8) 10^3/u L Baso # (Auto) 0.0 (0.0-0.1) 10^3/u L Nucleated RBC % (a uto) 0 % Nucleated RBCs # 0.0 /100WBC Sodium 136 (136-145) mmol/L Potassium 4.3 (3.5-5.1) mmol/L Chloride 100 (98-107) mmol/L Carbon Dioxide 26 (22-29) mmol/L Anion Gap 14.3 (5-19) BUN 12 (8-23) mg/dL Creatinine 0.6 (0.5-0.9) mg/dL GFR Calculation Not Reportable Glucose 87 (65-115) mg/dL Calculated Osmolal ity 281 L (285-295) mOsm/k g Calcium 8.1 L (8.5-10.5) mg/dL Total Bilirubin 1.5 H (0.15-1.2) mg/dL AST 47 H (0-32) U/L ALT 76 H (0-33) U/L Alkaline Phosphata se 547 H (35-105) IU/L C-Reactive Protein 75.4 H (0.0-4.9) mg/L Total Protein 5.5 L (6.6-8.7) g/dL Albumin 3.1 L (3.5-5.2) g/dL Globulin 2.4 (1.3-4.6) g/dL Imaging Data^: CT cervical: Radiologist's impression: [facility] [place], [place] [address]FJ Scan ReportSigned Patient: Ninoska Duffy #: [id number]: 7Acct#:[id number]/Sex: 75 / FADM Date: 10/11/20Loc: ERRoom/Bed:Attending Dr: Ordering Provider/Ordering MD: Katerine Hart Date of Service: 10/11/20 Procedure(s): CT cervical spine w con [id number] Accession Number(s): [id number] Report Number: [id number] PROCEDURE INFORMATION: Exam: CT Cervical Spine With Contrast Exam date and time: 10/11/2020 6:57 PM Age: 75 years old Clinical indication: Neck pain; Additional info: HX of spinal cyst? Severe neck pain TECHNIQUE: Imaging protocol: Computed tomography images of the cervical spine with intravenous contrast. Radiation optimization: All CT scans at this facility use at least one of these dose optimization techniques: automated exposure control; mA and/or kV adjustment per patient size (includes targeted exams where dose is matched to clinical indication); or iterative reconstruction. Contrast material: OMNI 300; Contrast volume: 95 ml; Contrast route: INTRAVENOUS (IV); COMPARISON: CTA Neck [id number] 09/26/2018 8:16 AM RADIATION DOSE METRICS: Total DLP (mGy-cm): 405.35 FINDINGS: Bones/joints: No acute fracture. Well-circumscribed 6 mm lucent lesion in the C4 vertebral body, potentially a small hemangioma. No aggressive imaging features. Normal alignment. Discs/Spinal canal/Neural foramina: Moderate uncovertebral hypertrophy centered over the mid and lower cervical spine with corresponding mild to moderate bilateral facet arthropathy. Lungs: Lung apices are normal. Soft tissues: Unremarkable. CT/CT cervical spine w con [id number] IMPRESSION: 1. No acute osseous abnormalities of the cervical spine. 2. Degenerative changes of the cervical spine as described in the body of the report. Radiation Dose CTDIVOL = (mGy): DLP = 405.35 (mGy-cm) Dictated By:Chet Jones DOSigned By:Chet Jones DOSigned Date/ Time:10/11/201948DD/ 47 Discharge Plan Discharge Patient Disposition: Home Clinical Impression: Spinal hemangioma, Elevated LFTs Condition: Stable Prescriptions: New prednisone 10 mg tablet 60 mg PO DAILY 5 Days Qty: 30 RF: 0 No Action sumatriptan succinate 100 mg tablet See Rx Instructions PO .COMPLEX PRN (Reason: Migraine Headache) RF: 0 ondansetron HCl 4 mg tablet 4 mg PO Q12H PRN (Reason: nausea and vomiting) Qty: 60 RF: 0 aspirin [Aspirin Low Dose] 81 mg Tablet,Delayed Release (Dr/Ec) 81 mg PO DAILY@2199 RF: 0 oxycodone 5 mg Tablet 5 mg PO Q6H PRN (Reason: Moderate Pain (Scale Score 5-6)) RF: 0 carvedilol 25 mg tablet 12.5 mg PO BID@ RF: 0 TPN Electrolytes 35-20-5 mEq/20 mL Solution See Rx Instructions .ROUTE .COMPLEX RF: 0 buspirone 10 mg Tablet 5 mg PO BID PRN (Reason: Anxiety) RF: 0 lisinopril 20 mg tablet See Rx Instructions .ROUTE .COMPLEX PRN (Reason: Blood Pressure) RF: 0 Discharge Orders: Discharge ED (Routine); Ordered 10/11/20 Ordered By: Katerine Hart Referrals: Baldomero Britt MD [Primary Care Provider] - Patient Instructions: Opioid Safety Activity Restrictions/Additional Instructions: [facility] is committed to fighting the nationwide opiate epidemic. We are providing ALL patients with information regarding opiate safety. If you received opiate pain medication during your stay or if you received a prescription for opiate pain medication-please review this handout. If not, you may disregard. Thank you. As we discussed please contact Dr. Britt tomorrow for further instructions on pain management in addition to her morphine as well as the referral to her neurosurgeon in [place]. I have placed information with case management to get her set up with an appointment with her GI surgeon Dr. Del Rio. Coding Level of Care Code ED Delivery Room Supervisor for g Fwd Exam Detailed
[2020-10-11] MEDS: iohexol 300 mg/mL 100 mL Btl IV (19:13)
[2020-10-11 19:21] VITALS: BP 150/57; PULSE 87; RESP 18; O2SAT 94
[2020-10-11] MEDS: orphenadrine 30 mg/mL Inj 2 mL 60 MG IVP (19:31)
[2020-10-11] MEDS: dexamethasone 10 mg/mL INJ 6 MG IVP (19:31)
[2020-10-11] MEDS: HYDROmorphone 1 mg/mL INJ 1 mL IVP (19:31)
[2020-10-11 19:48] LABS: Basophils % 0.3 %; Eosinophils # 0.1 10^3/uL (0.0-0.8); Eosinophils % 1.4 %; Hematocrit 36.6 % (37.0-47.0); Hemoglobin 11.6 g/dL (11.5-15.3); Lymphocytes # 1.5 10^3/uL (0.8-4.8); Lymphocytes % 15.3 %; Mean Corpuscular HGB Conc 31.7 g/dL (30.0-36.0); Mean Corpuscular Hemoglobin 28.8 pg (28.0-34.0); Mean Corpuscular Volume 90.8 fL (81-99); Mean Platelet Volume 11.6 fL (7.4-10.4); Monocytes # 1.4 10^3/uL (0.2-0.9); Monocytes % 14.5 %; Neutrophils # 6.57 10^3/uL (1.8-7.7); Nucleated Red Blood Cells % 0 %; Platelet Count 174 10^3/cmm (130-400); Red Blood Count 4.03 10^6/uL (4.1-5.3); Red Cell Distribution Width 14.4 % (12.1-15.1); White Blood Count 9.7 10^3/uL (4.0-10.0)
[2020-10-11 20:09] LABS: Alanine Aminotransferase 76 U/L (0-33); Albumin Level 3.1 g/dL (3.5-5.2); Alkaline Phosphatase 547 IU/L (35-105); Anion Gap 14.3 (5-19); Aspartate Amino Transferase 47 U/L (0-32); Blood Urea Nitrogen 12 mg/dL (8-23); C Reactive Protein 75.4 mg/L (0.0-4.9); Calcium 8.1 mg/dL (8.5-10.5); Carbon Dioxide 26 mmol/L (22-29); Chloride 100 mmol/L (98-107); Globulin 2.4 g/dL (1.3-4.6); Glucose 87 mg/dL (65-115); Osmolality Calculated 281 mOsm/kg (285-295); Potassium 4.3 mmol/L (3.5-5.1); Sodium 136 mmol/L (136-145); Total Bilirubin 1.5 mg/dL (0.15-1.2); Total Protein 5.5 g/dL (6.6-8.7)
[2020-10-11 20:28] VITALS: BP 147/54; PULSE 73; RESP 18; O2SAT 93
[2020-10-11 21:00] VITALS: BP 137/56; PULSE 79; RESP 18; O2SAT 93
[2020-10-11] MEDS: ketorolac 30 mg/mL INJ IVP (21:03)
--- NOTE | 2020-10-12 12:41 | DCPLANNER ---
biofuels product manager had message to schedule a follow up appointment for patient with Dr. Stover, GI physician in [place]. biofuels product manager called the office of Dr. Del Rio, a follow up appointment was scheduled for Saturday October 31, 2020 at 2:[address] Del Rio. biofuels product manager called patient and gave patient the appointment information. biofuels product manager faxed patients information to the office of Dr. Del Rio.
--- NOTE | 2020-11-02 15:21 | DCPLANNER ---
Patient had a follow up appointment scheduled for 10.31.[address] Del Rio - appointment was cancelled.
== END 2020-10-11 22:33 | disposition home or self-care (01) ==
PROVIDERS: Emergency Provider Physician Assistant; PCP Family Medicine
DX: D18.09 Hemangioma of other sites (principal); R79.89 Other specified abnormal findings of blood chemistry; Z79.82 Long term (current) use of aspirin; I25.10 Atherosclerotic heart disease of native coronary artery without angina pectoris; E11.9 Type 2 diabetes mellitus without complications; I10 Essential (primary) hypertension; I25.2 Old myocardial infarction; Z87.891 Personal history of nicotine dependence
CPT/HCPCS: 72126; 80053; 85025; 86140; 96374; 96375; 99284; J1100; J1170; J1885; J2360; Q9967

== ENCOUNTER 2020-10-24 11:31 | Outpatient (CLI) | payer MEDICARE, OTHER, SELFPAY ==
[2020-10-24 11:57] LABS: Basophils % 0.2 %; Eosinophils # 0.1 10^3/uL (0.0-0.8); Eosinophils % 0.6 %; Hematocrit 39.8 % (37.0-47.0); Hemoglobin 12.6 g/dL (11.5-15.3); Lymphocytes % 16.2 %; Mean Corpuscular HGB Conc 31.7 g/dL (30.0-36.0); Mean Corpuscular Hemoglobin 28.4 pg (28.0-34.0); Mean Corpuscular Volume 89.8 fl (81-99); Mean Platelet Volume 10.3 fL (7.4-10.4); Monocytes # 0.9 10^3/uL (0.2-0.9); Monocytes % 7.4 %; Neutrophils # 9.27 10^3/uL (1.8-7.7); Neutrophils % 73.9 %; Nucleated Red Blood Cells % 0 %; Platelet Count 309 10^3/cmm (130-400); Red Blood Count 4.43 10^6/uL (4.1-5.3); Red Cell Distribution Width 14.2 % (12.1-15.1); White Blood Count 12.6 10^3/uL (4.0-10.0)
[2020-10-24 12:13] LABS: Alanine Aminotransferase 48 U/L (0-33); Albumin Level 2.7 g/dL (3.5-5.2); Alkaline Phosphatase 295 IU/L (35-105); Anion Gap 14.1 (5-19); Aspartate Amino Transferase 22 U/L (0-32); Blood Urea Nitrogen 24 mg/dL (8-23); Calcium 8.2 mg/dL (8.5-10.5); Carbon Dioxide 26 mmol/L (22-29); Chloride 102 mmol/L (98-107); Globulin 3.2 g/dL (1.3-4.6); Glucose 95 mg/dL (65-115); Magnesium 2.2 mg/dL (1.7-2.3); Osmolality Calculated 290 mOsm/kg (285-295); Phosphorus 2.7 mg/dL (2.5-4.5); Potassium 4.1 mmol/L (3.5-5.1); Sodium 138 mmol/L (136-145); Total Bilirubin 0.5 mg/dL (0.15-1.2); Total Protein 5.9 g/dL (6.6-8.7)
== END 2020-10-24 11:32 | disposition home or self-care (01) ==
PROVIDERS: PCP Family Medicine; Referring Provider Surgery; Visit Provider Family Medicine
DX: K57.92 Diverticulitis of intestine, part unspecified, without perforation or abscess without bleeding (principal)
CPT/HCPCS: 80053; 83735; 84100; 85025

== ENCOUNTER 2020-10-31 10:36 | Outpatient (CLI) | payer MEDICARE, OTHER, SELFPAY ==
[2020-10-31 11:41] LABS: Basophils % 0.5 %; Eosinophils # 0.1 10^3/uL (0.0-0.8); Eosinophils % 1.6 %; Hematocrit 45.8 % (37.0-47.0); Hemoglobin 14.4 g/dL (11.5-15.3); Lymphocytes % 11.8 %; Mean Corpuscular HGB Conc 31.4 g/dL (30.0-36.0); Mean Corpuscular Hemoglobin 28.1 pg (28.0-34.0); Mean Corpuscular Volume 89.5 fl (81-99); Mean Platelet Volume 10.7 fL (7.4-10.4); Monocytes # 0.6 10^3/uL (0.2-0.9); Monocytes % 6.8 %; Neutrophils # 6.45 10^3/uL (1.8-7.7); Neutrophils % 78.6 %; Nucleated Red Blood Cells % 0 %; Platelet Count 197 10^3/cmm (130-400); Red Blood Count 5.12 10^6/uL (4.1-5.3); Red Cell Distribution Width 14.1 % (12.1-15.1); White Blood Count 8.2 10^3/uL (4.0-10.0)
[2020-10-31 11:57] LABS: Alanine Aminotransferase 51 U/L (0-33); Albumin Level 2.8 g/dL (3.5-5.2); Alkaline Phosphatase 346 IU/L (35-105); Anion Gap 13.5 (5-19); Aspartate Amino Transferase 26 U/L (0-32); Blood Urea Nitrogen 20 mg/dL (8-23); Calcium 8.5 mg/dL (8.5-10.5); Carbon Dioxide 25 mmol/L (22-29); Chloride 105 mmol/L (98-107); Globulin 3.2 g/dL (1.3-4.6); Glucose 152 mg/dL (65-115); Magnesium 1.7 mg/dL (1.7-2.3); Osmolality Calculated 294 mOsm/kg (285-295); Phosphorus 3.4 mg/dL (2.5-4.5); Potassium 4.5 mmol/L (3.5-5.1); Sodium 139 mmol/L (136-145); Total Bilirubin 0.8 mg/dL (0.15-1.2)
== END 2020-10-31 10:37 | disposition home or self-care (01) ==
PROVIDERS: PCP Family Medicine; Visit Provider Surgery
DX: K57.92 Diverticulitis of intestine, part unspecified, without perforation or abscess without bleeding (principal)
CPT/HCPCS: 80053; 83735; 84100; 85025

== ENCOUNTER 2020-11-07 15:54 | Outpatient (CLI) | payer MEDICARE, OTHER, SELFPAY ==
--- NOTE | 2020-11-07 16:04 | MR_ITS ---
WS: [id number] MRI LUMBAR SPINE NONCONTRAST TECHNIQUE: Sagittal T1, T2 and STIR imaging. Axial T1 and T2 imaging. CLINICAL INFORMATION: LUMBAR SPONDYLOSIS COMPARISON: None. FINDINGS: Mild lumbar curve. No acute compression. No high-grade central canal stenosis. Mild disc bulging L3-L 4 and L4-L5. L1-L2: Mild annular bulging. Spinal canal and foramen are patent. Mild facet arthropathy. L2-L3: Mild annular bulging. Tiny left subarticular protrusion impinges the left subarticular recess and traversing left L3 nerve root. Mild central canal stenosis. Mild left and no significant right fo raminal narrowing. Moderate facet arthropathy. L3-L4: Mild disc bulging with slight effacement of ventral thecal sac. Narrowing of the right subarti cular recess. Mild right and no significant left foraminal narrowing. Moderate facet arthropathy. L4-L5: Disc desiccation with mild disc bulging. Narrowing of the subarticular recess bilaterally. Mod erate bilateral foraminal narrowing. This is worse in the right. Moderate facet arthropathy. L5-S1: Mild disc bulging with osteophytic ridging. Mild right and no significant left foraminal narro wing. Moderate facet arthropathy. Small bilateral renal cysts. MR/MR lumbar spine wo con* [id number] IMPRESSION: 1. Mild lumbar curve. No acute compression. No high-grade central canal stenos is. 2. Left pericentral protrusion L2-3 impinges the traversing left L3 nerve root in the subarticular recess. Small left foraminal protrusion contacts the exiti ng left L2 nerve root. 3. Mild annular bulging L3-4 impinges the traversing right L4 nerve root in th e subarticular recess. Mild right L3-4 foraminal narrowing. 4. Narrowing of the subarticular recess bilaterally L4-5 due to mild disc bulg ing with osteophytic ridging. Moderate bilateral foraminal narrowing right grea ter than left. 5. Moderate facet arthropathy L3-L5 worse L5-S1.
== END 2020-11-07 15:55 | disposition home or self-care (01) ==
PROVIDERS: PCP Family Medicine; Visit Provider Registered Nurse
DX: M47.812 Spondylosis without myelopathy or radiculopathy, cervical region (principal); M54.12 Radiculopathy, cervical region; M47.816 Spondylosis without myelopathy or radiculopathy, lumbar region; M51.26 Other intervertebral disc displacement, lumbar region
CPT/HCPCS: 72148

== ENCOUNTER 2020-11-10 09:52 | Outpatient (CLI) | payer MEDICARE, OTHER, SELFPAY ==
[2020-11-10 10:21] LABS: Hematocrit 30.3 % (37.0-47.0); Hemoglobin 9.5 g/dL (11.5-15.3); Mean Corpuscular HGB Conc 31.4 g/dL (30.0-36.0); Mean Corpuscular Volume 89.4 fl (81-99); Mean Platelet Volume 10.7 fL (7.4-10.4); Platelet Count 325 10^3/cmm (130-400); Red Blood Count 3.39 10^6/uL (4.1-5.3); Red Cell Distribution Width 13.4 % (12.1-15.1); White Blood Count 9.6 10^3/uL (4.0-10.0)
[2020-11-10 10:39] LABS: Alanine Aminotransferase 14 U/L (0-33); Albumin Level 2.9 g/dL (3.5-5.2); Alkaline Phosphatase 347 IU/L (35-105); Anion Gap 15.3 (5-19); Aspartate Amino Transferase 18 U/L (0-32); Blood Urea Nitrogen 17 mg/dL (8-23); C Reactive Protein 27.9 mg/L (0.0-4.9); Calcium 8.7 mg/dL (8.5-10.5); Carbon Dioxide 25 mmol/L (22-29); Chloride 97 mmol/L (98-107); Globulin 3.5 g/dL (1.3-4.6); Glucose 122 mg/dL (65-115); Osmolality Calculated 279 mOsm/kg (285-295); Potassium 4.3 mmol/L (3.5-5.1); Sodium 133 mmol/L (136-145); Total Bilirubin 0.6 mg/dL (0.15-1.2); Total Protein 6.4 g/dL (6.6-8.7)
[2020-11-10 13:06] LABS: Erythrocyte Sedimentation Rate 107 mm/hr (0-15)
[2020-11-10 15:16] LABS: Absolute Eosinophils 0.1 10^3/cmm (0.0-0.7); Absolute Segmented Neutrophil 6.4 10/cmm (1.6-7.1); Eosinophils 2 %; Lymphocytes 21 %; Lymphocytes Absolute 2.4 10^3/cmm (1.2-3.4); Monocytes Absolute 0.6 10^3/cmm (0.1-0.6); Platelet Estimate Normal (Normal); Segmented Neutrophils 67 %; Total Cells Counted 100 (0-100)
== END 2020-11-10 09:53 | disposition home or self-care (01) ==
LOC: LAB 09:56
PROVIDERS: PCP Family Medicine; Visit Provider Surgery
DX: K57.92 Diverticulitis of intestine, part unspecified, without perforation or abscess without bleeding (principal)
CPT/HCPCS: 80053; 85007; 85027; 85651; 86140

== ENCOUNTER 2020-12-01 10:53 | Outpatient (CLI) | payer MEDICARE, OTHER, SELFPAY ==
[2020-12-01 11:29] LABS: Basophils # 0.1 10^3/uL (0.0-0.1); Basophils % 0.7 %; Eosinophils # 0.3 10^3/uL (0.0-0.8); Eosinophils % 3.2 %; Hematocrit 37.4 % (37.0-47.0); Hemoglobin 11.7 g/dL (11.5-15.3); Lymphocytes # 2.2 10^3/uL (0.8-4.8); Lymphocytes % 20.7 %; Mean Corpuscular HGB Conc 31.3 g/dL (30.0-36.0); Mean Corpuscular Hemoglobin 27.7 pg (28.0-34.0); Mean Corpuscular Volume 88.4 fl (81-99); Mean Platelet Volume 10.3 fL (7.4-10.4); Monocytes # 1.2 10^3/uL (0.2-0.9); Monocytes % 11.5 %; Neutrophils # 6.62 10^3/uL (1.8-7.7); Neutrophils % 63.2 %; Nucleated Red Blood Cells % 0 %; Platelet Count 372 10^3/cmm (130-400); Red Blood Count 4.23 10^6/uL (4.1-5.3); Red Cell Distribution Width 14.6 % (12.1-15.1); White Blood Count 10.5 10^3/uL (4.0-10.0)
[2020-12-01 11:45] LABS: Alanine Aminotransferase 17 U/L (0-33); Albumin Level 3.3 g/dL (3.5-5.2); Alkaline Phosphatase 231 IU/L (35-105); Anion Gap 14.1 (5-19); Aspartate Amino Transferase 12 U/L (0-32); Blood Urea Nitrogen 11 mg/dL (8-23); C Reactive Protein 34.4 mg/L (0.0-4.9); Calcium 9.6 mg/dL (8.5-10.5); Carbon Dioxide 30 mmol/L (22-29); Chloride 97 mmol/L (98-107); Creatine Phosphokinase 17 U/L (26-192); Globulin 3.6 g/dL (1.3-4.6); Glucose 102 mg/dL (65-115); Osmolality Calculated 284 mOsm/kg (285-295); Potassium 4.1 mmol/L (3.5-5.1); Sodium 137 mmol/L (136-145); Total Bilirubin 0.5 mg/dL (0.15-1.2); Total Protein 6.9 g/dL (6.6-8.7)
== END 2020-12-01 10:54 | disposition home or self-care (01) ==
LOC: LAB 10:58
PROVIDERS: PCP Family Medicine; Visit Provider Family Medicine
DX: M46.20 Osteomyelitis of vertebra, site unspecified (principal)
CPT/HCPCS: 80053; 82550; 85025; 86140

== ENCOUNTER 2020-12-08 08:54 | Outpatient (CLI) | payer MEDICARE, OTHER, SELFPAY ==
[2020-12-08 09:17] LABS: Hematocrit 41.4 % (37.0-47.0); Hemoglobin 12.8 g/dL (11.5-15.3); Mean Corpuscular HGB Conc 30.9 g/dL (30.0-36.0); Mean Corpuscular Hemoglobin 26.9 pg (28.0-34.0); Mean Corpuscular Volume 87.2 fl (81-99); Mean Platelet Volume 9.8 fL (7.4-10.4); Platelet Count 237 10^3/cmm (130-400); Red Blood Count 4.75 10^6/uL (4.1-5.3); Red Cell Distribution Width 14.2 % (12.1-15.1); White Blood Count 7.1 10^3/uL (4.0-10.0)
[2020-12-08 09:44] LABS: Absolute Eosinophils 0.4 10^3/cmm (0.0-0.7); Absolute Neutrophil 5.1 10^3/cmm (1.4-6.5); Alanine Aminotransferase 8 U/L (0-33); Albumin Level 3.2 g/dL (3.5-5.2); Alkaline Phosphatase 152 IU/L (35-105); Anion Gap 14.7 (5-19); Aspartate Amino Transferase 11 U/L (0-32); Band Neutrophils Absolute 0.1 10^3/cmm (0.0-1.2); Blood Urea Nitrogen 10 mg/dL (8-23); C Reactive Protein 4.6 mg/L (0.0-4.9); Calcium 8.5 mg/dL (8.5-10.5); Carbon Dioxide 25 mmol/L (22-29); Chloride 103 mmol/L (98-107); Creatine Phosphokinase 19 U/L (26-192); Eosinophils 6 %; Globulin 3.1 g/dL (1.3-4.6); Glucose 122 mg/dL (65-115); Lymphocytes 18 %; Lymphocytes Absolute 1.3 10^3/cmm (1.2-3.4); Monocytes Absolute 0.3 10^3/cmm (0.1-0.6); Osmolality Calculated 288 mOsm/kg (285-295); Platelet Estimate Normal (Normal); Potassium 3.7 mmol/L (3.5-5.1); Segmented Neutrophils 70 %; Sodium 139 mmol/L (136-145); Total Bilirubin 0.3 mg/dL (0.15-1.2); Total Cells Counted 100 (0-100); Total Protein 6.3 g/dL (6.6-8.7)
== END 2020-12-08 08:55 | disposition home or self-care (01) ==
LOC: LAB 08:58
PROVIDERS: PCP Family Medicine; Visit Provider Family Medicine
DX: K57.92 Diverticulitis of intestine, part unspecified, without perforation or abscess without bleeding (principal)
CPT/HCPCS: 80053; 82550; 85007; 85027; 86140

== ENCOUNTER 2020-12-17 09:00 | Outpatient (RCR) | payer MEDICARE, OTHER, SELFPAY ==
[2020-12-15 09:30] VITALS: BP 108/49; PULSE 68; RESP 18; TEMP 36.8; O2SAT 98; BMI 25.7
[2020-12-15] MEDS: DAPTOmycin 500 MG in sodium chloride 0.9% (100 ml) 100 ML 100 MG IV (10:27)
[2020-12-15 10:35] LABS: Hemoglobin 13.3 g/dL (11.5-15.3); Mean Corpuscular HGB Conc 30.2 g/dL (30.0-36.0); Mean Corpuscular Hemoglobin 26.7 pg (28.0-34.0); Mean Corpuscular Volume 88.2 fl (81-99); Platelet Count 273 10^3/cmm (130-400); Red Blood Count 4.99 10^6/uL (4.1-5.3); Red Cell Distribution Width 14.4 % (12.1-15.1); White Blood Count 8.9 10^3/uL (4.0-10.0)
[2020-12-15 11:00] LABS: Alanine Aminotransferase 6 U/L (0-33); Albumin Level 3.5 g/dL (3.5-5.2); Alkaline Phosphatase 121 IU/L (35-105); Anion Gap 15.9 (5-19); Aspartate Amino Transferase 12 U/L (0-32); Blood Urea Nitrogen 12 mg/dL (8-23); C Reactive Protein 1.9 mg/L (0.0-4.9); Calcium 9.2 mg/dL (8.5-10.5); Carbon Dioxide 24 mmol/L (22-29); Chloride 102 mmol/L (98-107); Creatine Phosphokinase 31 U/L (26-192); Globulin 3.3 g/dL (1.3-4.6); Glucose 75 mg/dL (65-115); Osmolality Calculated 284 mOsm/kg (285-295); Potassium 3.9 mmol/L (3.5-5.1); Sodium 138 mmol/L (136-145); Total Bilirubin 0.4 mg/dL (0.15-1.2); Total Protein 6.8 g/dL (6.6-8.7)
[2020-12-15 11:18] LABS: Absolute Eosinophils 1.6 10^3/cmm (0.0-0.7); Absolute Segmented Neutrophil 3.7 10/cmm (1.6-7.1); Band Neutrophils Absolute 0.4 10^3/cmm (0.0-1.2); Eosinophils 18 %; Lymphocytes 28 %; Lymphocytes Absolute 2.8 10^3/cmm (1.2-3.4); Monocytes Absolute 0.4 10^3/cmm (0.1-0.6); Segmented Neutrophils 42 %; Total Cells Counted 100 (0-100)
[2020-12-15 11:20] LABS: Absolute Neutrophil 4.1 10^3/cmm (1.4-6.5); Platelet Estimate Normal (Normal)
[2020-12-16 08:55] VITALS: BP 134/50; PULSE 63; RESP 16; TEMP 36.4; O2SAT 99
[2020-12-16] MEDS: DAPTOmycin 500 MG in sodium chloride 0.9% (100 ml) 100 ML 100 MG IV (09:17)
[2020-12-17 09:10] VITALS: BP 135/70; PULSE 67; RESP 18; TEMP 36.3; O2SAT 97
[2020-12-17] MEDS: DAPTOmycin 500 MG in sodium chloride 0.9% (100 ml) 100 ML 100 MG IV (09:11)
== END 2020-12-17 14:40 | disposition home or self-care (01) ==
LOC: GILAB 09:00
PROVIDERS: PCP Family Medicine; Visit Provider Physician Assistant Medical
DX: M46.20 Osteomyelitis of vertebra, site unspecified (principal); R78.81 Bacteremia; B95.7 Other staphylococcus as the cause of diseases classified elsewhere
CPT/HCPCS: 36592; 80053; 82550; 85007; 85027; 86140; 96365; J0878

== ENCOUNTER 2020-12-17 14:45 | Inpatient (IN) | payer MEDICARE, OTHER, SELFPAY ==
[2020-12-17 14:52] VITALS: BP 190/108; PULSE 101; RESP 18; TEMP 36.5; O2SAT 100
--- NOTE | 2020-12-17 15:10 | XRR_ITS ---
PROCEDURE INFORMATION: Exam: XR Chest Exam date and time: 12/17/2020 3:10 PM Age: 75 years old Clinical indication: Pain; Chest pressure; Additional info: Chest pain TECHNIQUE: Imaging protocol: XR of the chest. Views: 1 view. COMPARISON: CT chest w con* [id number] 09/12/2018 8:44 AM FINDINGS: Tubes, catheters and devices: Left approach PICC line catheter with its tip in the proximal superior vena cava. Lungs: Unremarkable. No consolidation. Pleural spaces: Unremarkable. No pleural effusion. No pneumothorax. Heart/Mediastinum: Unremarkable. No cardiomegaly. Bones/joints: Unremarkable. XR/XR chest 1V portable [id number] IMPRESSION: No acute abnormality. Radiation Dose CTDIVOL = (mGy): DLP = (mGy-cm)
--- NOTE | 2020-12-17 15:10 | ECG_ITS ---
[facility] Test Date: 2020-12-17 Pat Name: Anju Duffy Department: Room: Gender: Female Analyst Sales: : 1945 Requested By: Cookie Foster Order Number: [id number] Lindsay MD: Ayush Johnson M.D. Measurements Intervals [place] Rate: 109 P: 92 [place]: 166 QRS: 3 QRSD: 125 T: 79 QT: 359 QTc: 484 Interpretive Statements SINUS TACHYCARDIA LEFT BUNDLE BRANCH BLOCK [120+ ms QRS DURATION, 80+ ms Q/S IN V1/V2, 85+ ms R IN I/aVL/V5/V6] Compared to ECG 03/14/2018 03:10:18 Left bundle-branch block now present Sinus rhythm no longer present Electronically Signed On 12-17-2020 21:26:41 CDT by Ayush Johnson M.D. [id number]
--- NOTE | 2020-12-17 15:10 | CTR_ITS ---
PROCEDURE INFORMATION: Exam: CT Abdomen And Pelvis With Contrast Exam date and time: 12/17/2020 3:10 PM Age: 75 years old Clinical indication: Abdominal pain; Epigastric; Prior surgery; Surgery date: 6+ months; Surgery type: Hyst, gb, hernia, colectomy; Patient HX: C/O severe upper abd/chest pain after antibiotic treatment for infection has a HX of recurrent sbo; Additional info: Abd infection TECHNIQUE: Imaging protocol: Computed tomography of the abdomen and pelvis with contrast. Radiation optimization: All CT scans at this facility use at least one of these dose optimization techniques: automated exposure control; mA and/or kV adjustment per patient size (includes targeted exams where dose is matched to clinical indication); or iterative reconstruction. Contrast material: OMNI 300; Contrast volume: 95 ml; Contrast route: INTRAVENOUS (IV); COMPARISON: CT abdomen pelvis w con* [id number] 07/13/2020 2:33 PM RADIATION DOSE METRICS: Total DLP (mGy-cm): 1209.02 FINDINGS: Liver: Normal. No mass. Gallbladder and bile ducts: Pneumobilia. Cholecystectomy clips. Pancreas: Normal. No ductal dilation. Spleen: Calcified granulomata of the spleen. Adrenal glands: Normal. No mass. Kidneys and ureters: Normal. No hydronephrosis. Stomach and bowel: Dilated small bowel loops. Few decompressed small bowel loops in the right lower quadrant. Appendix: No evidence of appendicitis. Intraperitoneal space: Unremarkable. No free air. No significant fluid collection. Vasculature: Atherosclerotic calcification of the abdominal aorta and bilateral iliac vessels. Lymph nodes: Unremarkable. No enlarged lymph nodes. Urinary bladder: Unremarkable as visualized. Reproductive: Unremarkable as visualized. Bones/joints: Unremarkable. No acute fracture. Soft tissues: Unremarkable. CT/CT abdomen pelvis w con* [id number] IMPRESSION: Small bowel is dilated with few decompressed small bowel loops in the right lower quadrant. Findings suggestive of small-bowel obstruction. Radiation Dose CTDIVOL = (mGy): DLP = 1209.02 (mGy-cm)
[2020-12-17 15:11] VITALS: BP 210/118; PULSE 110; RESP 19; TEMP 37.1; O2SAT 100
--- NOTE | 2020-12-17 15:30 | ED_ITS ---
HPI - General Adult General: Chief complaint: Chest Pain Stated complaint: CP, ABD PAIN, BP 218/124: INFUSION THIS AM Time Seen by Provider: 12/17/20 14:59 History of Present Illness: HPI narrative: Patient is a 75-year-old female with history of extensive abdominal surgery including diverticular abscess w/ prior colectomy, recurrent small bowel obstructions complicated by narcotizing infection, current MRSA bacteremia with L4 vertebral involvement on daily IV daptomycin via PICC presenting to the emergency room with acute onset of worsening abdominal pain x3-day now radiating towards the chest. Patient says that she has been having diffuse abdominal pain for the last 3 days now worsening today. Patient has not been able to pass gas today. The pain is 10 out of 10 in addition patient also reports radiating abdominal pain to the chest. She denies any shortness of breath, cough, runny nose sore throat, fever or chills. Patient denies any melena or hematochezia, no complaints at this time. No, patient underwent daptomycin infusion earlier today. Onset:3 days ago Duration:3 days Location:home Severity:severe Review of Systems Narrative: Constitutional: No fever, no chills. HEENT: No vision changes CV: +chest pain, no palpitations PULM: no cough, no dyspnea. GI: + diffuse abdominal pain, no N/V/D. : No dysuria MSKEL: No muscle pain SKIN: No new rashes, no lesions. NEURO: No headache, no focal weakness. HEME: No visible bruises PSYCH: Normal mood PFSH ED PFSH: Medical History (Updated 12/17/20 @ 20:25 by Cookie Foster MD) Adhesion of mesentery Colonic diverticular abscess Coronary disease Diabetes Diet controlled GERD (gastroesophageal reflux disease) Gout Hypertension Intermittent small bowel obstruction Migraine MRSA bacteremia Myocardial infarction Necrotizing fasciitis Osteoarthritis Pain of both breasts Pericarditis Scleroderma Surgical History H/O colectomy H/O hernia repair History of cholecystectomy S/P dilatation of esophageal stricture S/P ANH-BSO Family History Mother Congestive heart failure Social History Smoking and tobacco status: former smoker Alcohol intake: never Female Reproductive History: Date of last menstrual period: 06/02/20 Physical Exam Narrative: EXAM NARRATIVE: Head: Atraumatic Eyes: PERRL, conjunctiva without injection ENT: Mucous membrane moist NECK: Supple, ROM intact LUNGS: LCTAB, no crackles/rhonchi CV: RRR ABDOMEN: Soft, +diffuse tenderness to palpation. No guarding rebound, guarding, rigidity. No CVA tenderness to percussion. Neg Cisneros/Neg McBurney's point tenderness, no suprabupic tenderness to palpation. EXTREMITY: Normal ROM SKIN: No rash or erythema NEURO: Awake and alert, no focal motor deficits PSYCH: Normal mood and affect Course Vital Signs: Vital signs: Vital Signs Temperature 97.4 F L 12/17/20 18:37 Pulse Rate 114 H 12/17/20 18:37 Respiratory Rate 22 H 12/17/20 18:37 Blood Pressure 174/114 12/17/20 18:37 Pulse Oximetry 96 12/17/20 18:37 MDM - General Adult MDM Narrative: Medical decision making narrative: 75-year-old female with history of recurrent small bowel obstruction, prior diverticular abscess status post colectomy presented to emergency room with diffuse abdominal pain x3 days. Exam, patient is focal tenderness palpation diffusely. No guarding no rebound tenderness. CT is consistent with small bowel obstruction. I have discussed case with Dr. Moncada recommended medicine to admit and he will follow. S/p NG tube placement. Delta troponin of 240. Likely NSTEMI with SBO. S/p ASA on heparin. Disposition: Admission Lab Data: Labs: Lab Results 12/17/20 12/17/20 12/17/20 15:35 15:35 15:35 WBC 11.6 10^3/uL H 10 ^3/uL (4.0-10.0) RBC 5.63 10^6/uL H 10 ^6/uL (4.1-5.3) Hgb 14.7 g/dL g/dL (11.5-15.3) Hct 47.7 % H % (37.0-47.0) MCV 84.7 fl fl (81-99) MCH 26.1 pg L pg (28.0-34.0) MCHC 30.8 g/dL g/dL (30.0-36.0) RDW 13.9 % % (12.1-15.1) Plt Count 446 10^3/cmm H 10 ^3/cmm (130-400) MPV 9.5 fL fL (7.4-10.4) Neut % (Auto) 55.3 % % Lymph % (Auto) 26.7 % % Hock[place] % (Auto) 7.5 % % Eos % (Auto) 8.9 % % Baso % (Auto) 1.2 % % Neut # (Auto) 6.43 10^3/uL 10^3 /uL (1.8-7.7) Lymph # (Auto) 3.1 10^3/uL 10^3/ uL (0.8-4.8) Hockley # (Auto) 0.9 10^3/uL 10^3/ uL (0.2-0.9) Eos # (Auto) 1.0 10^3/uL H 10^ 3/uL (0.0-0.8) Baso # (Auto) 0.1 10^3/uL 10^3/ uL (0.0-0.1) Nucleated RBC % (a uto) 0 % % Nucleated RBCs # 0.0 /100WBC /100W BC PT 13.60 SECONDS SEC ONDS (12.1-14.9) INR 1.01 (0.8-1.2) APTT 34.7 SECONDS SECO NDS (23.9-36.7) Sodium 138 mmol/L mmol/L (136-145) Potassium 3.8 mmol/L mmol/L (3.5-5.1) Chloride 99 mmol/L mmol/L (98-107) Carbon Dioxide 25 mmol/L mmol/L (22-29) Anion Gap 17.8 (5-19) BUN 8 mg/dL mg/dL (8-23) Creatinine 0.6 mg/dL mg/dL (0.5-0.9) GFR Calculation Not Reportable Glucose 139 mg/dL H mg/dL (65-115) Calculated Osmolal ity 287 mOsm/kg mOsm/ kg (285-295) Lactate Calcium 9.8 mg/dL mg/dL (8.5-10.5) Phosphorus Magnesium Iron TIBC % Saturation Unsat Iron Binding Total Bilirubin 0.7 mg/dL mg/dL (0.15-1.2) AST 16 U/L U/L (0-32) ALT 8 U/L U/L (0-33) Alkaline Phosphata se 137 IU/L H IU/L (35-105) Troponin T Baselin e C-Reactive Protein Total Protein 6.8 g/dL g/dL (6.6-8.7) Albumin 4.0 g/dL g/dL (3.5-5.2) Globulin 2.8 g/dL g/dL (1.3-4.6) Lipase 17 U/L U/L (13-60) Procalcitonin TSH 12/17/20 12/17/20 12/17/20 15:35 15:35 15:35 WBC RBC Hgb Hct MCV MCH MCHC RDW Plt Count MPV Neut % (Auto) Lymph % (Auto) Hock[place] % (Auto) Eos % (Auto) Baso % (Auto) Neut # (Auto) Lymph # (Auto) [place]ock[place] # (Auto) Eos # (Auto) Baso # (Auto) Nucleated RBC % (a uto) Nucleated RBCs # PT INR APTT Sodium Potassium Chloride Carbon Dioxide Anion Gap BUN Creatinine GFR Calculation Glucose Calculated Osmolal ity Lactate 1.6 mmol/L mmol/L (0.5-2.2) Calcium Phosphorus Magnesium Iron 50 ug/dL ug/dL (37-145) TIBC 339 mcg/dl mcg/dl % Saturation 14.7 % L % (20-50) Unsat Iron Binding 289 ug/dL ug/dL (112-347) Total Bilirubin AST ALT Alkaline Phosphata se Troponin T Baselin e 26 ng/L H ng/L (0-10) C-Reactive Protein Total Protein Albumin Globulin Lipase Procalcitonin 0.05 ng/mL ng/mL (0-0.5) TSH 12/17/20 15:35 WBC RBC Hgb Hct MCV MCH MCHC RDW Plt Count MPV Neut % (Auto) Lymph % (Auto) [place] % (Auto) Eos % (Auto) Baso % (Auto) Neut # (Auto) Lymph # (Auto) [place] # (Auto) Eos # (Auto) Baso # (Auto) Nucleated RBC % (a uto) Nucleated RBCs # PT INR APTT Sodium Potassium Chloride Carbon Dioxide Anion Gap BUN Creatinine GFR Calculation Glucose Calculated Osmolal ity Lactate Calcium Phosphorus 2.8 mg/dL mg/dL (2.5-4.5) Magnesium 1.6 mg/dL L mg/dL (1.7-2.3) Iron TIBC % Saturation Unsat Iron Binding Total Bilirubin AST ALT Alkaline Phosphata se Troponin T Baselin e C-Reactive Protein 1.8 mg/L mg/L (0.0-4.9) Total Protein Albumin Globulin Lipase Procalcitonin TSH 2.24 uIU/mL uIU/m L (0.27-4.20) Imaging Data^: Other Imaging: Radiologist's impression: [employer] [place], [place] [address]HF Scan ReportSigned Patient: Ninoska Duffy #: [id number]: [id number]#:[id number]/Sex: 75 / FADM Date: 12/17/20Loc: [facility]/Bed:Attending Dr: Ordering Provider/Ordering MD: Cookie Foster MD Date of Service: 12/17/20 Procedure(s): CT abdomen pelvis w con* [id number] Accession Number(s): [id number] Report Number: [id number] PROCEDURE INFORMATION: Exam: CT Abdomen And Pelvis With Contrast Exam date and time: 12/17/2020 3:10 PM Age: 75 years old Clinical indication: Abdominal pain; Epigastric; Prior surgery; Surgery date: 6+ months; Surgery type: Hyst, gb, hernia, colectomy; Patient HX: C/O severe upper abd/chest pain after antibiotic treatment for infection has a HX of recurrent sbo; Additional info: Abd infection TECHNIQUE: Imaging protocol: Computed tomography of the abdomen and pelvis with contrast. Radiation optimization: All CT scans at this facility use at least one of these dose optimization techniques: automated exposure control; mA and/or kV adjustment per patient size (includes targeted exams where dose is matched to clinical indication); or iterative reconstruction. Contrast material: OMNI 300; Contrast volume: 95 ml; Contrast route: INTRAVENOUS (IV); COMPARISON: CT abdomen pelvis w con* [id number] 07/13/2020 2:33 PM RADIATION DOSE METRICS: Total DLP (mGy-cm): 1209.02 FINDINGS: Liver: Normal. No mass. Gallbladder and bile ducts: Pneumobilia. Cholecystectomy clips. Pancreas: Normal. No ductal dilation. Spleen: Calcified granulomata of the spleen. Adrenal glands: Normal. No mass. Kidneys and ureters: Normal. No hydronephrosis. Stomach and bowel: Dilated small bowel loops. Few decompressed small bowel loops in the right lower quadrant. Appendix: No evidence of appendicitis. Intraperitoneal space: Unremarkable. No free air. No significant fluid collection. Vasculature: Atherosclerotic calcification of the abdominal aorta and bilateral iliac vessels. Lymph nodes: Unremarkable. No enlarged lymph nodes. Urinary bladder: Unremarkable as visualized. Reproductive: Unremarkable as visualized. Bones/joints: Unremarkable. No acute fracture. Soft tissues: Unremarkable. CT/CT abdomen pelvis w con* [id number] IMPRESSION: Small bowel is dilated with few decompressed small bowel loops in the right lower quadrant. Findings suggestive of small-bowel obstruction. Radiation Dose CTDIVOL = (mGy): DLP = 1209.02 (mGy-cm) Dictated By:Denis Montoya MDSigned By:Denis Montoya MDSigned Date/Time:12/17/20 1617DD/ [address] [address]HT[address] ReportSigned Patient: Nionska Duffy #: [id number]: [id number]#:[id number]/Sex: 75 / FADM Date: 12/17/20Loc: [facility]/Bed:Attending Dr: Ordering Provider/Ordering MD: Cookie Foster MD Date of Service: 12/17/20 Procedure(s): XR chest 1V portable [id number] Accession Number(s): [id number] Report Number: [id number] PROCEDURE INFORMATION: Exam: XR Chest Exam date and time: 12/17/2020 3:10 PM Age: 75 years old Clinical indication: Pain; Chest pressure; Additional info: Chest pain TECHNIQUE: Imaging protocol: XR of the chest. Views: 1 view. COMPARISON: CT chest w con* [id number] 09/12/2018 8:44 AM FINDINGS: Tubes, catheters and devices: Left approach PICC line catheter with its tip in the proximal superior vena cava. Lungs: Unremarkable. No consolidation. Pleural spaces: Unremarkable. No pleural effusion. No pneumothorax. Heart/Mediastinum: Unremarkable. No cardiomegaly. Bones/joints: Unremarkable. XR/XR chest 1V portable [id number] IMPRESSION: No acute abnormality. Radiation Dose CTDIVOL = (mGy): DLP = (mGy-cm) Dictated By:Denis Montoya MDSigned By:Denis Montoya MDSigned Date/Time:12/17/20 1619DD/ 1510 Discharge Plan Discharge Patient Disposition: Admitted As Inpatient Admit Provider: Evans Aquino Clinical Impression: Small bowel obstruction, Abdominal pain, Nausea & vomiting, Chest pain, Non-ST elevation DC (NSTEMI) Condition: Stable Coding Level of Care Code ED Analysis Evaluator for Tad Sanderson
[2020-12-17] MEDS: ondansetron 2 mg/ML SDV 2 mL 4 MG IVP ×2 (15:40→20:43)
[2020-12-17] MEDS: sodium chloride 0.9% 500 ML IV (15:40)
[2020-12-17] MEDS: HYDROmorphone 1 mg/mL INJ 1 mL IVP (15:40)
[2020-12-17] MEDS: iohexol 300 mg/mL 100 mL Btl IV (15:49)
[2020-12-17 15:51] LABS: Basophils # 0.1 10^3/uL (0.0-0.1); Basophils % 1.2 %; Eosinophils % 8.9 %; Hematocrit 47.7 % (37.0-47.0); Hemoglobin 14.7 g/dL (11.5-15.3); Lymphocytes # 3.1 10^3/uL (0.8-4.8); Lymphocytes % 26.7 %; Mean Corpuscular HGB Conc 30.8 g/dL (30.0-36.0); Mean Corpuscular Hemoglobin 26.1 pg (28.0-34.0); Mean Corpuscular Volume 84.7 fl (81-99); Mean Platelet Volume 9.5 fL (7.4-10.4); Monocytes # 0.9 10^3/uL (0.2-0.9); Monocytes % 7.5 %; Neutrophils # 6.43 10^3/uL (1.8-7.7); Neutrophils % 55.3 %; Nucleated Red Blood Cells % 0 %; Platelet Count 446 10^3/cmm (130-400); Red Blood Count 5.63 10^6/uL (4.1-5.3); Red Cell Distribution Width 13.9 % (12.1-15.1); White Blood Count 11.6 10^3/uL (4.0-10.0)
[2020-12-17 16:11] LABS: INR 1.01 (0.8-1.2)
[2020-12-17 16:12] LABS: Partial Thromboplastin Time 34.7 SECONDS (23.9-36.7)
[2020-12-17 16:23] LABS: Lactate (Lactic Acid level) 1.6 mmol/L (0.5-2.2); Troponin(5th) Baseline 26 ng/L (0-10)
[2020-12-17 16:25] LABS: Alanine Aminotransferase 8 U/L (0-33); Alkaline Phosphatase 137 IU/L (35-105); Aspartate Amino Transferase 16 U/L (0-32); Blood Urea Nitrogen 8 mg/dL (8-23); Calcium 9.8 mg/dL (8.5-10.5); Carbon Dioxide 25 mmol/L (22-29); Chloride 99 mmol/L (98-107); Globulin 2.8 g/dL (1.3-4.6); Glucose 139 mg/dL (65-115); Lipase 17 U/L (13-60); Osmolality Calculated 287 mOsm/kg (285-295); Sodium 138 mmol/L (136-145); Total Bilirubin 0.7 mg/dL (0.15-1.2); Total Protein 6.8 g/dL (6.6-8.7)
[2020-12-17 16:32] LABS: Anion Gap 17.8 (5-19); Potassium 3.8 mmol/L (3.5-5.1)
--- NOTE | 2020-12-17 17:02 | XRR_ITS ---
PROCEDURE INFORMATION: Exam: XR Chest Exam date and time: 12/17/2020 5:02 PM Age: 75 years old Clinical indication: Device placement; Ng tube; Additional info: Ng tube placement TECHNIQUE: Imaging protocol: XR of the chest. Views: 1 view. COMPARISON: CR (CHEST, ) 12/17/2020 3:43 PM FINDINGS: Tubes, catheters and devices: Nasogastric tube with its tip in the stomach and side port at the level of the gastroesophageal junction. Advancement of the tube is recommended. Lungs: Unremarkable. No consolidation. Pleural spaces: Unremarkable. No pleural effusion. No pneumothorax. Heart/Mediastinum: Unremarkable. No cardiomegaly. Bones/joints: Unremarkable. XR/XR chest 1V portable [id number] IMPRESSION: Nasogastric tube with its side port at the level of the gastroesophageal junction. Advancement of the tube is recommended. Radiation Dose CTDIVOL = (mGy): DLP = (mGy-cm)
[2020-12-17 17:08] VITALS: BP 174/97; PULSE 107; RESP 24; TEMP 36.8; O2SAT 98
--- NOTE | 2020-12-17 17:10 | ECG_ITS ---
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 Measurements Intervals [place] Rate: 111 P: 41 SD: 166 QRS: -17 QRSD: 133 T: 94 QT: 366 QTc: 499 Interpretive Statements SINUS TACHYCARDIA WITH OCCASIONAL VENTRICULAR PREMATURE COMPLEXES LEFT BUNDLE BRANCH BLOCK [120+ ms QRS DURATION, 80+ ms Q/S IN V1/V2, 85+ ms R IN I/aVL/V5/V6] Compared to ECG 12/17/2020 15:08:28 Ventricular premature complex(es) now present Electronically Signed On 12-17-2020 21:33:40 CDT by Ayush Johnson M.D. [id number]
--- NOTE | 2020-12-17 17:14 | PC.NURSE ---
tried to call report call back in 15 minutes
--- NOTE | 2020-12-17 17:18 | P.HP_ITS ---
Providers/Chief Complaint Admitting Physician: Evans Aquino MD Primary Care Provider: Baldomero Britt MD Chief Complaint: CP, ABD PAIN, BP 218/124: INFUSION THIS AM History of Present Illness Anju Duffy is a 75 year old female with past medical history of extensive abdominal surgery, bowel obstruction, scleroderma, diverticular abscess s/p colectomy(which was further complicated by necrotizing fasciitis), adhesion lysis with reversal of colectomy last year with Dr. Oliveira at [facility], recent history of discitis, MRSA bacteremia on daptomycin since October 16 with plan to continue treatment for 3 months which is being followed by ID physician Dr. Brewer at [facility], CAD which is being followed up with Dr. Hoyt, type 2 diabetes mellitus. She was getting that her daptomycin infusion today when she had an episode of vomiting so was brought to the ER. In the ER patient states she has been having abdominal pain, nausea with occasional episode of vomiting for last 4 to 5 days with last bowel movement 3 days ago. She states she has had multiple bowel obstructions in the past and she thought she is getting 1 for last 3 days for which she has been taking aggressive bowel regimen at home without any help. She denies any nausea, vomiting, headache, fever, cough, swelling in any of the limbs, diarrhea, dysuria. States her lower limb radiculopathy has been getting better for last 1 month since starting of IV antibiotics. Blood work in the ER showed acute of 11.6, hemoglobin of 14.7, INR of 1, sodium of 138, creatinine of 0.6, lactate of 1.6, AST/ALT of 16/8, baseline troponin of [address] abdomen pelvis results as below. Review of Systems General: Reports: 10 or more systems reviewed and unremarkable except in HPI and below Const: Denies: fever(s), chills, body aches, change in appetite, change in weight, malaise, night sweats, diaphoresis, change in sleep pattern, daytime sleepiness or snoring Eyes: Denies: change in vision, blurry vision, photophobia, eye discomfort or eye discharge ENMT: Denies: throat pain, enlarged tonsils, hoarseness, mouth pain, oral sores, dry mouth, tinnitus, nasal congestion or post nasal drip Card: Denies: chest pain, palpitations, irregular heart rhythm, edema, swelli ng of feet/ankles, lightheadedness, syncope, pre-syncope, dyspnea on exertion, orthopnea, leg pain with exertion or acrocyanosis Resp: Denies: dyspnea, productive cough, non-productive cough, wheezing, stridor, pain on inspiration, change in phlegm color, hemoptysis or chest congestion GI: Denies: abdominal pain, nausea, vomiting, hematemesis, coffee ground emesis, dysphagia, heartburn, diarrhea, constipation, bloating, GI cramping, change in bowel habits, pain on defecation, hematochezia or melena : Denies: flank pain, dysuria, urinary frequency, urinary urgency, urinary hesitancy, nocturia or hematuria Musc: Denies: neck pain, back pain, extremity pain, joint pain, joint swelling, joint redness, joint stiffness or limited range of motion Neuro: Denies: headache(s), numbness in extremities, weakness in extremities, sensory changes, lack of coordination, difficulty walking, frequent falls, dizziness, vertigo, confusion, Slurred speech present, difficulty communicating thoughts or seizure-like activity Psych: Denies: anxiety, depression, mood swings, panic attacks, hopelessness or irritability Endo: Denies: polyuria, polydipsia, tired all the time, cold intolerance, excessive sweating, flushing or heat intolerance Juan Francisco/Lymph: Denies: easy bruising or easy bleeding All/Imm: Denies: tongue swelling, facial swelling or acute wheezing Medications/Allergies Home Medications Medication Instructions Recorded Confirmed Last Taken Type carvedilol 12.5 mg PO BID@09/24/19 12/17/20 12/17/20 History sumatriptan succinate 100 mg tablet See Rx Instructions PO .COMPLEX PRN 09/30/19 12/17/20 12/15/20 History ondansetron HCl 4 mg tablet 4 mg PO Q12H PRN #60 tab 11/04/19 12/17/20 12/15/20 Rx aspirin [Aspirin Low Dose] 81 mg PO DAILY@219901/12/20 12/17/20 12/16/20 History buspirone 5 mg PO BID PRN 05/23/20 12/17/20 12/17/20 History lisinopril 20 mg PO BID PRN 05/23/20 12/17/20 12/16/20 History docusate sodium [Colace] 50 mg PO BID 12/15/20 12/17/20 12/17/20 History hydrocodone-acetaminophen 1 tab PO Q8H PRN 12/15/20 12/17/20 12/16/20 History sennosides-docusate sodium [Senna 1 tab-cap PO BID 12/15/20 12/17/20 12/17/20 History Laxative-Stool Softener] daptomycin 500 mg IV DAILY MDD SEE PHARMACY 12/17/20 12/17/20 12/16/20 History COMMENT Allergies Allergy/AdvReac Type Severity Reaction Status Date / Time Latex, Natural Rubber Allergy ALGY-Rash Verified 05/23/20 16:55 PFSH Acute PFSH: Medical History (Updated 12/17/20 @ 17:29 by Evans Aquino MD) Adhesion of mesentery Colonic diverticular abscess Coronary disease Diabetes Diet controlled GERD (gastroesophageal reflux disease) Gout Hypertension Intermittent small bowel obstruction Migraine MRSA bacteremia Myocardial infarction Necrotizing fasciitis Osteoarthritis Pain of both breasts Pericarditis Scleroderma Surgical History H/O colectomy H/O hernia repair History of cholecystectomy S/P dilatation of esophageal stricture S/P ANH-BSO Family History Mother Congestive heart failure Social History Smoking and tobacco status: former smoker Alcohol intake: never Female Reproductive History: Date of last menstrual period: 06/02/20 Vitals/I&O/Wt Last Vital Signs Temp 98.2 F 12/17/20 17:08 Pulse 107 H 12/17/20 17:08 Resp 24 H 12/17/20 17:08 BP 174/97 12/17/20 17:08 Pulse Ox 98 12/17/20 17:08 Weight last 48 hrs Weight 63.503 kg Physical Exam Narrative: EXAM NARRATIVE: General: No acute distress, AO x3, NG tube in place, anxious, PICC line in left upper arm without any signs of cellulitis HEENT: PERRLA, pupils bilaterally equal and reactive Chest: Normal vesicular breath sounds, no added sounds, equal good air entry bilaterally CVS: S1-S2 regular, no murmurs, no tachycardia, no gallops, no rubs Abdomen: Soft, mild generalized tenderness, no organomegaly, sluggish bowel sounds Neuro: No focal deficits, no facial deformity, AO x3, power 5/5 in all limbs Data : 12/17/20 15:35 12/17/20 15:35 Micro: Microbiology 12/17/20 15:35 Blood Culture - Preliminary Blood SPECIMEN COLLECTED A&P Assessment and plan (1) Small bowel obstruction: Status: Acute (2) MRSA bacteremia: Status: Chronic (3) Discitis, unspecified, lumbar region: Status: Chronic (4) DM II (diabetes mellitus, type II), controlled: Status: Chronic Qualifiers: Diabetes mellitus fdc insulin use: without terminal makeup operator use Diabetes mellitus complication status: without complication Qualified Code(s): E11.9 - Type 2 diabetes mellitus without complications (5) GUILLAUME (generalized anxiety disorder): Status: Chronic (6) Hypertension: Status: Chronic Qualifiers: Hypertension type: essential hypertension Qualified Code(s): I10 - Essential (primary) hypertension Additional A&P Information 75-year-old female with past medical history of extensive bowel surgeries, and intermittent bowel obstruction present to the ER with nausea and vomiting along with abdominal pain found to have small bowel obstruction who is also been treated as an outpatient for lumbar discitis and MRSA bacteremia on IV daptomycin for last 1 month. Small bowel obstruction: NG tube placed. Surgery has been consulted. Bowel rest and conservative treatment. Early ambulation. N.p.o. except meds. Monitor electrolytes. IV fluids with D5 NS 20 mg of potassium at 50 cc/h. Zofran as needed. Protonix IV. Serial abdominal imaging. Discitis: MRSA bacteremia: Continue with IV daptomycin. Repeat CBC, CMP in a.m. Blood cultures. CT thoracolumbar spine with contrast tomorrow morning [address] scan with contrast. Check ESR, CRP. Type 2 diabetes mellitus: Insulin sliding scale low-dose protocol every 6 hours. Check HbA1c. Hypertension: Goal blood pressure less than 140/90 mmHg. Continue with home dose of Coreg. Hydralazine 5 mg IV every 6 hours as needed for systolic blood pressure of more than 160. Check iron panel, lipid panel, A1c, ESR, CRP, procalcitonin, TSH. CODE STATUS: Discussed with patient and at bedside. DNR/DNI. Protonix OPD prophylaxis. Heparin for DVT prophylaxis. We will request documentation from [facility] regarding prior abdominal surgery last year, ID notes regarding MRSA bacteremia and IV antibiotics. Attestations Medical Necessity Statement*: Admission for more than 2 midnights for manageme nt of small bowel obstruction in setting of extensive bowel surgeries, MRSA bacteremia in setting of lumbar discitis Time Spent in Patient Care: Greater than 35 minutes (>than 50% of time spent in counselling and/or direct pt care on unit) . Coding Level of Care Code Acute Terminal Makeup Operator for Chg Fwd Diagnoses Small bowel obstruction K56.609 MRSA bacteremia R78.81; B95.62 Discitis, unspecified, lumbar region M46.46 DM II (diabetes mellitus, type II), controlled E11.9 Diabetes mellitus terminal makeup operator insulin use: without terminal makeup operator use Diabetes mellitus complication status: without complication GUILLAUME (generalized anxiety disorder) F41.1 Hypertension I10 Hypertension type: essential hypertension
--- NOTE | 2020-12-17 18:05 | PC.NURSE ---
ng tube advanced 10 cm per
[2020-12-17 18:10] LABS: Iron 50 ug/dL (37-145); Percent Saturation 14.7 % (20-50); Total Iron Binding Capacity 339 mcg/dl; Unsaturated Iron Binding 289 ug/dL (112-347)
[2020-12-17 18:11] LABS: Troponin 5 2HR 259.2 ng/L (0-10)
[2020-12-17 18:12] LABS: Troponin 5 2HR Delta 233.2 ABS# (0-10)
[2020-12-17 18:15] LABS: C Reactive Protein 1.8 mg/L (0.0-4.9); Magnesium 1.6 mg/dL (1.7-2.3); Phosphorus 2.8 mg/dL (2.5-4.5); Thyroid Stimulating Hormone 2.24 uIU/mL (0.27-4.20)
[2020-12-17 18:16] LABS: Procalcitonin 0.05 ng/mL (0-0.5)
--- NOTE | 2020-12-17 18:16 | PC.NURSE ---
charge nurse of medsurg updated on 2 hour and 2 hour delta
[2020-12-17 18:37] VITALS: BP 174/114; PULSE 114; RESP 22; TEMP 36.3; O2SAT 96
[2020-12-17 20:00] VITALS: BP 174/114; PULSE 114; RESP 22; TEMP 36.3; O2SAT 96
--- NOTE | 2020-12-17 20:13 | PM.CONSULT ---
Providers/Reason For Consult Consulting Physician/Specialty*: Ayush Johnson MD/ Cardiology Reason for Consult*: NSTEMI Requesting Physician: Evans Aquino MD Attending Physician: Evans Aquino MD Primary Care Provider: Baldomero Britt MD History of Present Illness History of Present Illness Anju Duffy is a 75 year old female with past medical history of hypertension and multiple bowel obstructions and surgeries presented to the hospital with nausea, vomiting and constipation. Concern for bowel obstruction. Cardiology was consulted as patient has been having 2 to 3 days of on and off chest discomfort. Her initial troponin was 26 however trended up to 259 at 2 hours. She has been n.p.o. and has an NG tube for possibility of bowel obstruction. EKG has left bundle branch block on it. She is not having active chest pain at this time. No prior significant cardiac history. Review of Systems Narrative: CONSTITUTIONAL: No fever chills weight loss or gain or night sweats. [] HEENT: Normocephalic, atraumatic.[] RESPIRATORY: No cough, sputum, hemoptysis or wheezing.[] CARDIOVASCULAR: has on and off chest pain, no PND, orthopnea, lower extremity edema, presyncope or syncope. [] GI: no nausea vomiting diarrhea. [] STEWARD/STEWARDESS SECOND CLASS: No numbness, tingling, weakness or loss of function in any part of the body. [] MUSCULOSKELETAL: No knee or joint pain or rashes. [] Meds/Allergies Home Medications and Allergies Home Medications Medication Instructions Recorded Confirmed Last Taken Type carvedilol 12.5 mg PO BID@09/24/19 12/17/20 12/17/20 History sumatriptan succinate 100 mg tablet See Rx Instructions PO .COMPLEX PRN 09/30/19 12/17/20 12/15/20 History ondansetron HCl 4 mg tablet 4 mg PO Q12H PRN #60 tab 11/04/19 12/17/20 12/15/20 Rx aspirin [Aspirin Low Dose] 81 mg PO DAILY@219901/12/20 12/17/20 12/16/20 History buspirone 5 mg PO BID PRN 05/23/20 12/17/20 12/17/20 History lisinopril 20 mg PO BID PRN 0312/17/20 12/16/20 History docusate sodium [Colace] 50 mg PO BID 12/15/20 12/17/20 12/17/20 History hydrocodone-acetaminophen 1 tab PO Q8H PRN 12/15/20 12/17/20 12/16/20 History sennosides-docusate sodium [Senna 1 tab-cap PO BID 12/15/20 12/17/20 12/17/20 History Laxative-Stool Softener] daptomycin 500 mg IV DAILY MDD SEE PHARMACY 12/17/20 12/17/20 12/16/20 History COMMENT Allergies Allergy/AdvReac Type Severity Reaction Status Date / Time Latex, Natural Rubber Allergy ALGY-Rash Verified 05/23/20 16:55 PFSH Acute PFSH: Medical History Adhesion of mesentery Colonic diverticular abscess Coronary disease Diabetes Diet controlled GERD (gastroesophageal reflux disease) Gout Hypertension Intermittent small bowel obstruction Migraine MRSA bacteremia Myocardial infarction Necrotizing fasciitis Osteoarthritis Pain of both breasts Pericarditis Scleroderma Surgical History H/O colectomy H/O hernia repair History of cholecystectomy S/P dilatation of esophageal stricture S/P ANH-BSO Family History Mother Congestive heart failure Social History Smoking and tobacco status: former smoker Alcohol intake: never Female Reproductive History: Date of last menstrual period: 06/02/20 Vitals/I&O/Wt Last Vital Signs Temp 97.4 F L 12/17/20 18:37 Pulse 114 H 12/17/20 18:37 Resp 22 H 12/17/20 18:37 BP 174/114 12/17/20 18:37 Pulse Ox 96 12/17/20 18:37 Weight last 48 hrs Weight 140 lb Physical Exam Narrative: EXAM NARRATIVE: GENERAL: Patient is alert, awake and oriented x3. [] NECK: No jugular vein distension. [] HEENT: No cyanosis. No icterus. No pallor. [] HEART: Tachycardic, regular S1 and S2. Grade 2/6 systolic murmur, no rub or gallop. [] LUNGS: Clear to auscultate bilaterally. [] ABDOMEN: Soft CENTRAL NERVOUS SYSTEM: Grossly nonfocal. [] EXTREMITIES: Lower extremities with 1+ edema bilaterally. Pulses palpable in the lower extremities, both dorsalis pedis and posterior tibial. [] Data Micro: Micro: Microbiology 12/17/20 17:33 Blood Culture - Pr eliminary Blood SPECIMEN [facility] 12/17/20 15:35 Blood Culture - Pr eliminary Blood SPECIMEN [facility] A&P Assessment and plan (1) Non-ST elevation [place] (NSTEMI): Status: Acute (2) DM II (diabetes mellitus, type II), controlled: Status: Chronic Qualifiers: Diabetes mellitus dedicated intermodal truck driver insulin use: without dedicated intermodal truck driver use Diabetes mellitus complication status: without complication Qualified Code(s): E11.9 - Type 2 diabetes mellitus without complications (3) Hypertension: Status: Chronic Qualifiers: Hypertension type: essential hypertension Qualified Code(s): I10 - Essential (primary) hypertension (4) Small bowel obstruction: Status: Acute Patient has presented with small bowel obstruction. Getting conservative treatment at this time. She also has been having on and off chest pain for 2 to 3 days and her troponins have significantly gone up. Start aspirin and heparin drip. We will hold off on Plavix given there is a possibility of need for surgical intervention for bowel obstruction. Continue trending troponins. Order echocardiogram. If develops chest pain again, can be started on nitro. She will need invasive angiography however if PCI is done, it will complicate possible surgical intervention. Will have discussion with surgical team and follow on her progress regarding bowel obstruction, to determine best timing for angiography with possible percutaneous coronary intervention if needed. If echo shows significant reduction in LV systolic function/regional wall motion abnormalities and she continues having chest pain symptoms will need to proceed with coronary angiography. Thank you for involving us with care of this patient. We will continue to follow. Please call with questions. Coding Level of Care Code Acute Patternmaker Pressure Cast for Tad Sanderson Diagnoses Non-ST elevation [place] (NSTEMI) I21.4 DM II (diabetes mellitus, type II), controlled E11.9 Diabetes mellitus nursing home insulin use: without nursing home use Diabetes mellitus complication status: without complication Hypertension I10 Hypertension type: essential hypertension Small bowel obstruction K56.609
--- NOTE | 2020-12-17 21:10 | ECG_ITS ---
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 Measurements Intervals [place] Rate: 90 P: 72 AK: 192 QRS: -24 QRSD: 118 T: 62 QT: 411 QTc: 505 Interpretive Statements SINUS RHYTHM ANTEROSEPTAL MYOCARDIAL INFARCTION , age indeterminate [40+ ms Q WAVE IN V1-V4] Compared to ECG 12/17/2020 17:37:50 Myocardial infarct finding now present Sinus tachycardia no longer present Ventricular premature complex(es) no longer present Left bundle-branch block no longer present Electronically Signed On 12-18-2020 23:24:37 CDT by Ayush Johnson M.D. [id number]
[2020-12-17 21:40] LABS: Partial Thromboplastin Time 23.9 SECONDS (23.9-36.7)
[2020-12-17] MEDS: metoclopramide 5 mg/mL SDV 2 mL IVP (21:53)
--- NOTE | 2020-12-17 21:56 | PC.NURSE ---
Patient continues to c/o nausea with vomiting. Patient has NG tube in place to intermittent suction. Informed Dr Emerson and received telephone orders as documented. RBVO
[2020-12-17 22:00] VITALS: PULSE 95
[2020-12-17] MEDS: heparin drip 25,000 UNIT/500 ML PREMIX 20 UNIT IV (22:08)
[2020-12-17] MEDS: pantoprazole 40 mg SDV IVP (22:16)
[2020-12-17] MEDS: atorvastatin 40 mg Tablet 80 MG PO (22:19)
[2020-12-17] MEDS: D5-NS 0.45% + KCL 20 mEq 20 MEQ/1,000 ML BAG 50 MEQ IV (22:19)
[2020-12-17] MEDS: aspirin 325 mg EC Tablet PO (22:20)
[2020-12-17] MEDS: heparin 5,000 unit/mL INJ 1 mL IV (22:23)
[2020-12-17] MEDS: metoprolol tartrate 1 mg/1 mL SDV 5 mL 5 MG IVP (22:33)
[2020-12-17 22:55] LABS: Troponin 5 6HR 377.3 ng/L (0-10); Troponin 5 6HR Delta 351.3 ng/L (0-12)
[2020-12-18] VITALS (15 sets, daily range): BP systolic 93–153; BP diastolic 56–99; PULSE 86–104; RESP 17–26; TEMP 36.6–37.1; O2SAT 92–97
--- NOTE | 2020-12-18 | USCV_ITS ---
[facility] Age: 75 Gender: F : 1945 Exam Date: 12/18/2020 09:15 Ordering Phys: Evans Aquino MD Technologist: Rashida Chester Exam Location: [facility] [place] Indication: NSTEMI BP: 141 / 99 HR: 96 Rhythm: Sinus Technical Quality: Suboptimal MEASUREMENTS (Male / Female) Normal Values 2D ECHO LV Diastolic Diameter PLAX 4.3 cm 4.2 - 5.9 / 3.9 - 5.3 cm LV Systolic Diameter PLAX 3.1 cm LV Chamber Size 3.9 cm IVS Diastolic Thickness 1.0 cm 0.6 - 1.0 / 0.6 - 0.9 cm IVS Systolic Thickness 1.3 cm LVPW Diastolic Thickness 1.0 cm 0.6 - 1.0 / 0.6 - 0.9 cm LVPW Systolic Thickness 1.1 cm RV Chamber Size 2.3 cm LVOT Diameter 1.7 cm LV Ejection Fraction 2D Teich 51.9 % LV Ejection Fraction MOD 2C 46.2 % LV Ejection Fraction 2C AL 47.4 % LA Diameter 3.6 cm LA Width 2.8 cm LA Height 5.7 cm RA Width 2.4 cm RA Height 3.5 cm Aorta at Sinotubular Diameter 1.6 cm M-MODE LV Diastolic Diameter MM 5.5 cm 4.2 - 5.9 / 3.9 - 5.3 cm LV Systolic Diameter MM 4.5 cm LV Ejection Fraction MM Teich 37.6 % IVS Diastolic Thickness MM 1.5 cm 0.6 - 1.0 / 0.6 - 0.9 cm IVS Systolic Thickness MM 1.3 cm LVPW Diastolic Thickness MM 1.2 cm 0.6 - 1.0 / 0.6 - 0.9 cm LVPW Systolic Thickness MM 1.7 cm Aortic Annulus Diameter 2.8 cm LA Ao Ratio MM 1.5 DOPPLER AV Peak Velocity 108.0 cm/s LVOT Peak Velocity 73.0 cm/s AV Area Cont Eq vti 2.0 cm squared AV Area Cont Eq pk 1.6 cm squared MV Area PHT 8.1 cm squared MV E' Velocity 119.0 cm/s TR Peak Velocity 294.4 cm/s TR Peak Gradient 34.7 mmHg TR Mean Velocity 229.7 cm/s TR Mean Gradient 22.3 mmHg TR Velocity Time Integral 69.9 cm TV Peak E Velocity 66.0 cm/s Right Atrial Pressure 3.0 mmHg Pulmonary Artery Systolic Pressu 37.7 mmHg PV Peak Velocity 70.0 cm/s RV Acceleration Time 0.1 s RV Ejection Time 0.2 s RV AcT/ET 0.3 FINDINGS Left Ventricle Normal left ventricular size. LV systolic function is moderate to severely reduced with EF of 30-35%. There is moderate global hypokinesis with moderate to severe hypokinesis of the anterior wall. Diastolic function is indeterminate Right Ventricle The right ventricle is normal in size and function. Right Atrium The right atrium is normal in size. Left Atrium The left atrium is normal in size. Mitral Valve Moderate mitral annular calcification without significant stenosis or prolapse. There is mild mitral regurgitation. Aortic Valve Thickened without stenosis. There is no aortic regurgitation. Tricuspid Valve Structurally normal tricuspid valve without significant stenosis. Mild to moderate tricuspid regurgitation. RVSP is 35- 40mmHg. This is consistent with mild pulmonary hypertension Pulmonic Valve Structurally normal pulmonic valve without significant stenosis. There is no pulmonic regurgitation. Pericardium Normal pericardium without effusion. Aorta Normal ascending aorta dimension. CONCLUSIONS Limited quality echocardiogram because of poor ultrasonic windows. LV systolic function is moderate to severely reduced with EF of 30 to 35%. Above-mentioned regional wall motion maladies are seen. Mild mitral regurgitation. Mild to moderate tricuspid regurgitation. Mild pulmonary hypertension. Compared to prior echocardiogram from 01/14/2018 LV systolic function is now significantly reduced. Ayush Johnson MD (Electronically Signed) Final Date: 18 December 2020 11:40 S
[2020-12-18] MEDS: metoprolol tartrate 1 mg/1 mL SDV 5 mL 5 MG IVP ×5 (02:55→17:46)
[2020-12-18 06:00] LABS: Partial Thromboplastin Time 63.2 SECONDS (23.9-36.7)
[2020-12-18 06:28] LABS: Alanine Aminotransferase 10 U/L (0-33); Albumin Level 3.7 g/dL (3.5-5.2); Alkaline Phosphatase 134 IU/L (35-105); Aspartate Amino Transferase 40 U/L (0-32); Blood Urea Nitrogen 12 mg/dL (8-23); Calcium 9.1 mg/dL (8.5-10.5); Carbon Dioxide 20 mmol/L (22-29); Chloride 101 mmol/L (98-107); Cholesterol 191 mg/dL (0-200); Globulin 2.8 g/dL (1.3-4.6); Glucose 109 mg/dL (65-115); HDL Cholesterol 49 mg/dL (60-100); LDL Cholesterol Calculated 127 mg/dL (50-129); Magnesium 1.9 mg/dL (1.7-2.3); Osmolality Calculated 286 mOsm/kg (285-295); Phosphorus 4.3 mg/dL (2.5-4.5); Sodium 138 mmol/L (136-145); Total Bilirubin 0.7 mg/dL (0.15-1.2); Total Protein 6.5 g/dL (6.6-8.7); Triglycerides 75 mg/dL (0-150); VLDL Cholestrol Calculation 15 mg/dL (0-30)
[2020-12-18 06:56] LABS: Anion Gap 21.2 (5-19); Potassium 4.2 mmol/L (3.5-5.1)
[2020-12-18 07:21] LABS: Basophils # 0.1 10^3/uL (0.0-0.1); Basophils % 0.7 %; Eosinophils # 0.1 10^3/uL (0.0-0.8); Eosinophils % 0.6 %; Hematocrit 41.9 % (37.0-47.0); Hemoglobin 13.2 g/dL (11.5-15.3); Lymphocytes # 3.1 10^3/uL (0.8-4.8); Lymphocytes % 23.1 %; Mean Corpuscular HGB Conc 31.5 g/dL (30.0-36.0); Mean Corpuscular Hemoglobin 26.4 pg (28.0-34.0); Mean Corpuscular Volume 83.8 fl (81-99); Mean Platelet Volume 9.9 fL (7.4-10.4); Monocytes # 1.1 10^3/uL (0.2-0.9); Neutrophils # 8.96 10^3/uL (1.8-7.7); Neutrophils % 67.2 %; Nucleated Red Blood Cells % 0 %; Platelet Count 415 10^3/cmm (130-400); Red Cell Distribution Width 14.3 % (12.1-15.1); White Blood Count 13.4 10^3/uL (4.0-10.0)
--- NOTE | 2020-12-18 07:50 | XRR_ITS ---
PROCEDURE INFORMATION: Exam: XR Abdomen Exam date and time: 12/18/2020 7:50 AM Age: 75 years old Clinical indication: Condition or disease; Intestinal condition; Obstruction; Additional info: Sbo TECHNIQUE: Imaging protocol: XR of the abdomen. Views: 2 Views. Upright and supine views. COMPARISON: CT abdomen pelvis w con* [id number] 12/17/2020 3:45 PM FINDINGS: Tubes, catheters and devices: A nasogastric tube is present with the tip projecting on the stomach antrum. Multiple clips are present from old surgery. Gastrointestinal tract: Normal. No bowel dilation. Intraperitoneal space: Normal. No free air. Organs: Pneumobilia is seen consistent with prior sphincterotomy. Bones/joints: Degenerative changes are present in the spine with scattered sclerosis and osteophytes. XR/XR abdomen min 2V 42070 IMPRESSION: No acute abnormality. Radiation Dose CTDIVOL = (mGy): DLP = (mGy-cm)
[2020-12-18 07:57] LABS: Estmated Average Glucose 111; Hemoglobin A1C 5.5 % (4.0-6.0)
--- NOTE | 2020-12-18 08:46 | P.CONIM_ITS ---
Providers/Reason For Consult Consulting Physician/Specialty*: General Surgery Dr. Moncada Reason for Consult*: SBO Attending Physician: Evans Aquino MD Primary Care Provider: Baldomero Britt MD History of Present Illness History of Present Illness Anju Duffy is a 75 year old female who had previously developed a diverticular abscess for which she underwent sigmoid colectomy with colostomy and subsequent colostomy takedown. Patient's postop course was complicated by necrotizing fasciitis and she has had multiple hospitalizations for bowel obstruction in the past. Patient presented to the ER with chest pain and mild abdominal pain. Patient thought that she was getting constipated since she has not had a bowel movement in 4 days. She denies any nausea or vomiting. She is passing flatus. Review of Systems General: Reports: 10 or more systems reviewed and unremarkable except in HPI and below Meds/Allergies Home Medications and Allergies Home Medications Medication Instructions Recorded Confirmed Last Taken Type carvedilol 12.5 mg PO BID@08,2200 09/24/19 12/17/20 12/17/20 History sumatriptan succinate 100 mg tablet See Rx Instructions PO .COMPLEX PRN 09/30/19 12/17/20 12/15/20 History ondansetron HCl 4 mg tablet 4 mg PO Q12H PRN #60 tab 11/04/19 12/17/20 12/15/20 Rx aspirin [Aspirin Low Dose] 81 mg PO DAILY@2200 01/12/20 12/17/20 12/16/20 History buspirone 5 mg PO BID PRN 05/23/20 12/17/20 12/17/20 History lisinopril 20 mg PO BID PRN 05/23/20 12/17/20 12/16/20 History docusate sodium [Colace] 50 mg PO BID 12/15/20 12/17/20 12/17/20 History hydrocodone-acetaminophen 1 tab PO Q8H PRN 12/15/20 12/17/20 12/16/20 History sennosides-docusate sodium [Senna 1 tab-cap PO BID 12/15/20 12/17/20 12/17/20 History Laxative-Stool Softener] daptomycin 500 mg IV DAILY MDD SEE PHARMACY 12/17/20 12/17/20 12/16/20 History COMMENT Allergies Allergy/AdvReac Type Severity Reaction Status Date / Time Latex, Natural Rubber Allergy ALGY-Rash Verified 05/23/20 16:55 Current Medications Current Medications Generic Name Dose Route Start Last Admin Trade Name Garcíaq PRN Reason Stop Dose Admin Atorvastatin Calcium 80 mg 12/17/20 21:00 12/17/20 22:19 Atorvastatin 40 Mg Tablet PO 80 mg BEDTIME ROCIO Administration Heparin Sodium (Porcine) 0 unit 12/17/20 18:25 12/17/20 22:23 Heparin 5,000 Unit/Ml Inj 1 Ml IV 3,500 unit PRN PRN Administration Heparin weight-base protocol Protocol Potassium Chloride/Dextrose/Sod Cl 20 meq in 1,000 mls @ 50 mls/hr 12/17/20 17:49 12/17/20 22:19 D5-Ns 0.45% + Kcl 20 Meq IV 50 mls/hr .Q20H ROCIO Administration Heparin Sodium/Sodium Chloride 25,000 unit in 500 mls @ 0 mls/hr 12/17/20 18:30 12/17/20 22:08 Heparin Drip IV 15.75 unit/kg/hr .Q0M ROCIO 20 mls/hr Administration Protocol Per Protocol Metoclopramide HCl 5 mg 12/17/20 21:41 12/17/20 21:53 Metoclopramide 5 Mg/Ml Sdv 2 Ml IVP 5 mg Q6H PRN Administration NAUSEA AND VOMITING Metoprolol Tartrate 5 mg 12/17/20 22:00 12/18/20 06:07 Metoprolol Tartrate 1 Mg/1 Ml Sdv 5 Ml IVP 5 mg Q4H ROCIO Administration Pantoprazole Sodium 40 mg 12/17/20 18:00 12/17/20 22:16 Pantoprazole 40 Mg Sdv IVP 40 mg Q24H ROCIO Administration PFSH Acute PFSH: Medical History (Updated 12/17/20 @ 20:25 by Cookie Foster MD) Adhesion of mesentery Colonic diverticular abscess Coronary disease Diabetes Diet controlled GERD (gastroesophageal reflux disease) Gout Hypertension Intermittent small bowel obstruction Migraine MRSA bacteremia Myocardial infarction Necrotizing fasciitis Osteoarthritis Pain of both breasts Pericarditis Scleroderma Surgical History H/O colectomy H/O hernia repair History of cholecystectomy S/P dilatation of esophageal stricture S/P ANH-BSO Family History Mother Congestive heart failure Social History Smoking and tobacco status: former smoker Alcohol intake: never Female Reproductive History: Date of last menstrual period: 06/02/20 Vitals/I&O/Wt Last Vital Signs Temp 98.2 F 12/18/20 08:00 Pulse 97 12/18/20 08:00 Resp 17 12/18/20 08:00 BP 147/99 12/18/20 08:00 Pulse Ox 95 12/18/20 08:00 Weight last 48 hrs Weight 153 lb 8 oz Weight 154 lb Weight 140 lb Physical Exam Narrative: EXAM NARRATIVE: HEENT: Normocephalic, NG to LIS Eye: Sclera /conjunctiva normal Abdomen: Soft to palpation, well-healed midline laparotomy scar, mildly tender, mildly distended Neurological: Oriented to place person and time Skin: Intact, no lesions appreciated on gross exam Data Micro: Micro: Microbiology 12/17/20 17:33 Blood Culture - Pr eliminary Blood SPECIMEN [facility] 12/17/20 15:35 Blood Culture - Pr eliminary Blood SPECIMEN [facility] A&P Assessment and plan (1) Small bowel obstruction: 75-year-old female who had a complicated postop course after diverticular abscess requiring sigmoid colectomy with colostomy followed by takedown. She has had multiple abdominal surgeries but is unsure about the details. She had multiple hospitalizations for bowel obstruction. At present patient is hemodynamically stable with no evidence of peritonitis Continue NG to LIS Milk of molasses and tap water enema today 1 bottle magnesium citrate today Abdominal series in the morning Discussed with the patient that hopefully her bowel obstruction which is most likely secondary to adhesions should resolve in the next 48 to 72 hours with conservative measures, otherwise we might have to reexplore the abdomen. Status: Acute Consult Attestations Medical Necessity Statement: As per attending physician Coding Level of Care Code Acute Pharmacy Ancillary for Tad Sanderson Diagnoses Small bowel obstruction K56.609
[2020-12-18] MEDS: magnesium citrate Btl 296 mL 150 ML PO (09:49)
[2020-12-18] MEDS: aspirin 81 mg EC Tablet PO (09:50)
[2020-12-18 10:31] LABS: Add Urine Microscopic? YES; Bilirubin Urine 1+ (Negative); Blood Urine 2+ (Negative); Glucose Urine UA Norm (Normal); Ketones Urine 2+ (Negative); Leukocyte Esterase Urine Negative (Negative); Nitrate Urine Negative (Negative); Protein Urine Trace (Negative); Urine Appearance SL Hazy (CLEAR); Urine Color Yellow (Yellow); Urobilinogen Urine Norm (Negative); pH Urine 5 (5-7)
[2020-12-18 10:33] LABS: Bacteria Urine 2+ /hpf; Mucus Urine 2+ /hpf
[2020-12-18 10:34] LABS: Add Urine Culture? Yes
[2020-12-18] MEDS: DAPTOmycin 500 MG in sodium chloride 0.9% (100 ml) 100 ML 100 MG IV (10:58)
--- NOTE | 2020-12-18 11:30 | PC.NURSE ---
1000 cc twe given as ordered.return of clear fluid with small amt of hard,light brown stool noted.digital exam...no stool palpated in lower colon.
[2020-12-18] MEDS: morphine 4 mg/mL SDV 1 mL 1 MG IVP ×2 (12:15→15:30)
--- NOTE | 2020-12-18 12:43 | PM.PN ---
Subjective Subjective: Interval history: Patient had an episode of chest discomfort this morning. No active chest pain at this time. Her echocardiogram shows a moderate to severely reduced LV systolic function. Limited quality echocardiogram with regards to regional wall motion abnormality however anterior wall appears to be hypokinetic. Vitals/I&O/Wt Last Vital Signs Temp 97.8 F 12/18/20 11:52 Pulse 99 12/18/20 11:52 Resp 21 H 12/18/20 11:52 BP 153/87 12/18/20 11:52 Pulse Ox 96 12/18/20 11:52 Weight last 48 hrs Weight 153 lb 8 oz Weight 154 lb Weight 140 lb Physical Exam Narrative: EXAM NARRATIVE: GENERAL: Patient is alert, awake and oriented x3. [] NECK: No jugular vein distension. [] HEENT: No cyanosis. No icterus. No pallor. [] HEART: Tachycardic, regular S1 and S2. Grade 2/6 systolic murmur, no rub or gallop. [] LUNGS: Clear to auscultate bilaterally. [] ABDOMEN: Soft CENTRAL NERVOUS SYSTEM: Grossly nonfocal. [] EXTREMITIES: Lower extremities with 1+ edema bilaterally. Pulses palpable in the lower extremities, both dorsalis pedis and posterior tibial. 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 Getting conservative treatment at this time. She also has been having on and off chest pain for 2 to 3 days and her troponins have significantly gone up. 6-hour troponin went up to 377. On aspirin and heparin drip. Her echocardiogram shows moderate to severely reduced LV systolic function which is new for her. Limited quality echocardiogram. Cannot assess regional wall motion abilities accurately however LAD territory appears to be hypokinetic. Possibility of Takotsubo cardiomyopathy cannot be ruled out either. If develops chest pain again, can be started on nitro. We will tentatively schedule her for coronary angiography for tomorrow as has NSTEMI and LV systolic function has decreased. Will have a discussion with surgery team in the morning as well. They are hopeful bowel obstruction likely will resolve with conservative management. Thank you for involving us with care of this patient. We will continue to follow. Please call with questions. Attestations Medical Necessity Statement*: Care expected to cross 2 midnights. 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
[2020-12-18 13:32] LABS: Troponin T (5th) Once 289 ng/L (0-10)
[2020-12-18] MEDS: nitroglycerin drip 50 MG/250 ML PREMIX IV (13:50)
--- NOTE | 2020-12-18 13:57 | PM.PN ---
Subjective Subjective: Interval history: Yesterday post admission patient's troponin levels trended up with significant delta so was transferred over to CSU and started on a heparin drip with concerns of non-ST elevation AK. Patient has remained on NG tube with occasional episodes of nausea, 2 episodes of vomiting and occasional episodes of chest pain overnight. Blood pressures better controlled. NG tube in place. Denies any headache or dizziness. Vitals/I&O/Wt Last Vital Signs Temp 97.8 F 12/18/20 11:52 Pulse 99 12/18/20 11:52 Resp 21 H 12/18/20 11:52 BP 153/87 12/18/20 11:52 Pulse Ox 96 12/18/20 11:52 Weight last 48 hrs Weight 69.626 kg Weight 69.853 kg Weight 63.503 kg Physical Exam Narrative: EXAM NARRATIVE: General: No acute distress, AO x3, NG tube in place, anxious, PICC line in left upper arm without any signs of cellulitis HEENT: PERRLA, pupils bilaterally equal and reactive Chest: Normal vesicular breath sounds, no added sounds, equal good air entry bilaterally CVS: S1-S2 regular, no murmurs, no tachycardia, no gallops, no rubs Abdomen: Soft, mild generalized tenderness, no organomegaly, sluggish bowel sounds Neuro: No focal deficits, no facial deformity, AO x3, power 5/5 in all limbs Data : 12/18/20 07:00 12/18/20 05:10 Micro: Microbiology 12/17/20 17:33 Blood Culture - Preliminary Blood SPECIMEN COLLECTED 12/17/20 15:35 Blood Culture - Preliminary Blood SPECIMEN COLLECTED A&P Assessment and plan (1) Small bowel obstruction: Status: Acute (2) MRSA bacteremia: Status: Chronic (3) Discitis, unspecified, lumbar region: Status: Chronic (4) DM II (diabetes mellitus, type II), controlled: Status: Chronic Qualifiers: Diabetes mellitus termite control representative insulin use: without termite control representative use Diabetes mellitus complication status: without complication Qualified Code(s): E11.9 - Type 2 diabetes mellitus without complications (5) GUILLAUME (generalized anxiety disorder): Status: Chronic (6) Hypertension: Status: Chronic Qualifiers: Hypertension type: essential hypertension Qualified Code(s): I10 - Essential (primary) hypertension Additional A&P Information 75-year-old female with past medical history of extensive bowel surgeries, and intermittent bowel obstruction present to the ER with nausea and vomiting along with abdominal pain found to have small bowel obstruction who is also been treated as an outpatient for lumbar discitis and MRSA bacteremia on IV daptomycin for last 1 month. Non-ST elevation AK: Cardiology consulted. Possible early cardiac angiogram given on and off chest pain and low EF on echo. Echocardiogram results appreciated with EF of 30 to 35% with global LV hypokinesia with moderate to severe hypokinesis of anterior wall, mild to moderate TR with mild pulmonary hypertension. Continue with heparin drip. Can start patient on a nitro drip given frequent chest pains. Will titrate as per blood pressures. Appreciate A1c, lipid panel results. Aspirin, statin. IV metoprolol 5 mg every 4 hours as patient is n.p.o. Small bowel obstruction: NG tube placed. Appreciate surgery recommendations. Bowel rest and conservative treatment. Early ambulation. N.p.o. except meds. Monitor electrolytes. IV fluids with D5 NS 20 mg of potassium at 50 cc/h. Zofran as needed. Protonix IV. Serial abdominal imaging. Discitis: MRSA bacteremia: Continue with IV daptomycin. CRP normal. ESR pending. We will continue to follow blood cultures. For now hold off on lumbar CT scan as patient most likely will need angiogram to avoid excessive contrast exposure. Type 2 diabetes mellitus: Insulin sliding scale low-dose protocol every 6 hours. Hypertension: Goal blood pressure less than 140/90 mmHg. IV metoprolol 5 mg every 4 hours. Hydralazine 5 mg IV every 6 hours as needed for systolic blood pressure of more than 160. Check iron panel, lipid panel, A1c, ESR, CRP, procalcitonin, TSH. CODE STATUS: Discussed with patient and at bedside. DNR/DNI. Protonix OPD prophylaxis. Heparin for DVT prophylaxis. We will request documentation from [facility] regarding prior abdominal surgery last year, ID notes regarding MRSA bacteremia and IV antibiotics. Attestations Medical Necessity Statement*: Requires further hospitalization for management of non-ST elevation AK, small bowel obstruction, discitis and MRSA bacteremia Time Spent in Patient Care: Greater than 35 minutes (>than 50% of time spent in counselling and/or direct pt care on unit). Coding Level of Care Code Acute Watch Manufacturing Supervisor for [facility] Diagnoses Small bowel obstruction K56.609 MRSA bacteremia R78.81; B95.62 Discitis, unspecified, lumbar region M46.46 DM II (diabetes mellitus, type II), controlled E11.9 Diabetes mellitus termite control representative insulin use: without long-term use Diabetes mellitus complication status: without complication GUILLAUME (generalized anxiety disorder) F41.1 Hypertension I10 Hypertension type: essential hypertension
--- NOTE | 2020-12-18 15:28 | ECG_ITS ---
[facility] Test Date: 2020-12-18 Pat Name: Anju Duffy Department: Room: 103 Gender: Female Orthopedic Brace Maker: : 1945 Requested By: Ayush Johnson Order Number: [id number] Lindsay MD: Ayush Johnson M.D. Measurements Intervals [place] Rate: 98 P: 56 [place]: 161 QRS: -18 QRSD: 128 T: 97 QT: 367 QTc: 471 Interpretive Statements SINUS RHYTHM LEFT BUNDLE BRANCH BLOCK [120+ ms QRS DURATION, 80+ ms Q/S IN V1/V2, 85+ ms R IN I/aVL/V5/V6] Compared to ECG 12/18/2020 01:18:43 Left bundle-branch block now present Myocardial infarct finding no longer present Electronically Signed On 12-18-2020 23:17:45 CDT by Ayush Johnson M.D. [id number] f
[2020-12-18 15:57] LABS: Partial Thromboplastin Time 128.1 SECONDS (23.9-36.7)
--- NOTE | 2020-12-18 15:57 | XACV_ITS ---
Exam Room: [facility] Ht: 157 cm Wt: 69 kg BSA: 1.76 m2 Gender: Female : 1945 Any Known Allergies: Natural rubber and latex Exam Priority: Routine Procedure(s): Procedure Description: Diagnostic procedure Procedure Description: Left Heart Catheterization Procedure Description: Left ventriculography Procedure Description: Coronary Angiography Diagnostic Cath Status: Urgent Diagnostic Findings * INDICATION: NSTEMI. * Separate ostia of LAD and LCx. * No disease noted in the Left Main, Left Anterior Descending, Right, or Circumflex coronary arteries. * Coronary angiography shows right dominance. Conclusions 1. Symptoms and troponin elevation likely secondary to ramsey-pericarditis. 2. No disease noted in the Left Main, Left Anterior Descending, Right, or Circumflex coronary arteries. 3. Mild left ventricular systolic dysfunction. Ejection fraction of 40%. Recommendations * Aggressive risk factor modification. * Can start NSAIDs for chest discomfort. * Outpatient cardiology follow up in 1-2 weeks. Diagnostic RX Recommendation: medical therapy and/or counseling Ventriculography Ejection Fraction: 40.0 % Pressures Phase:Rest AO : 85 / 58 ( 71 ) @ 3:45:00 PM 120 / 65 ( 90 ) @ 3:55:00 PM 120 / 58 ( 86 ) @ 3:55:00 PM LV : 122 / 7 / 24 @ 3:54:00 PM 122 / 9 / 29 @ 3:55:00 PM 120 / 8 / 28 @ 3:55:00 PM Valves Phase:DefaultPhase AV : 2.0 @ 5:02:31 PM AV Mean Gradient: 0.0 @ 5:02:31 PM Clinical Evaluation EBL: 5mL-10mL Procedural Details Procedure Consent Obtained. Pre-Procedure Time Out. Identified patient by full name and date of as verbalized by the patient/guarantor. Does the consent match the physician's order: Yes. Accurate & Complete Informed Consent: Yes. Inpatient/Outpatient History & Physical on Chart: Yes. If H&P is completed, is and addenduem needed: No; If yes, is the addendum complete: N/A. Visualize and Verify Site with Patient/Guarantor: N/A. Relevant Radiology Images available: N/A. Pre-op teaching completed and patient verbalized understanding. The risks, benefits, and alternatives of sedation and/or procedure were discussed by physician. The patient agrees to continue. Procedure started. [facility] Clinical Fraility Score: 5: Mildly Frail. Vocational Training Instructor Indications: ACS > 24 hours. Chest Pain Symptom Assessment: Typical Angina Symptoms. Cardiovascular Instability: No, if yes, Persistant Ischemic Symptoms. Correct patient, site and procedure confirmed by cath team. Current diagnosis: NSTEMI. PERRLA. Strong, equal hand clinical informatics educator bilaterally. Lungs clear x 5 lobes. IV Site on Arrival: 20 gauge in the left hand. Pt has PICC line in left AC area. IV Fluids: 0.9% NaCl at KVO. 0 mL infused prior to sawyer cork slabs. Oxygen started at 2liters/min via nasal canula. Physician arrived. Equipment: 6F - Radial. Cardiac Cath Pack. ACIST Manifold Kit Model BT 2000. Heparinized Saline (2 units/mL), 1000 mL bag. right groin was prepped with chloroprep then draped in the usual sterile fashion. right radial was prepped with chloroprep then draped in the usual sterile fashion. Baseline sample Acquired. HR: 99 BPM. Physician scrubbed in. Immediate Pre-Procedure Time Out. Correct Patient: Yes; Correct Procedure: Yes; Correct Site: Yes; Correct Patient Position: Yes; Correct Supplies: Yes; Dried Flammable Prep: Yes; Blood Products Available: N/A;. Lidocaine 1% infiltrated to the right radial. Arterial access obtained. A 5 lao TIG catheter in over wire. Multiple views taken of left coronary artery. Catheter redirected to the RCA. Catheter redirected to the LCA. Multiple views taken of right coronary artery. Catheter removed over the exchange wire. A 5 lao Angled Pig catheter in over wire. EDP Sample taken: LV 122/7,24; HR: 97 BPM; SpO2: 97%. LV gram performed in LEONARD @ 10 mL/second for a total of 30 mL. EDP Sample taken: LV 122/9,29; HR: 95 BPM; SpO2: 97%. Pullback taken: LV 120/8,28; AO 120/65(90); Mean: 0mmHg, Peak to Peak: 2mmHg, SEP: 21sec/min; HR: 95 BPM; SpO2: 97%. Catheter removed over the exchange wire. Physician scrubbed out. A TR Band was successful obtaining hemostatsis at the Right Radial artery insertion site. TR band placed. Hemostasis obtained. Post Procedure: Pulses reassessed and unchanged. PERRLA. Strong, equal hand clinical informatics educator bilaterally. No VTE prophylaxis required. Post-op diagnosis: non obstructive CAD. Complications: none. Contrast type used: Omnipaque 300 mgI/mL, 500 mL bottle. Medication's Wasted: Lidocaine 1% = 18 mL. Medication's Wasted: Heparin = 1500 units. Total IV fluids: 26 mL. Estimated blood loss: 5mL-10mL. Procedure completed. Patient transferred by bed to 1st floor. Vital chart was stopped. Access Site Site: Right Radial artery Sheath Size: 6 Fr Hemostasis Method: TR Band Hemostasis Success: Successful Procedure Medications Start: 4:38 PM Stop: 4:38 PM Medication: Versed Amount: 1 mg Start: 4:40 PM Stop: 4:40 PM Medication: Versed Amount: 1 mg Start: 4:43 PM Stop: 4:43 PM Medication: Nitrogylcerin Amount: 200 mcg Route: I.A. Start: 4:46 PM Stop: 4:46 PM Medication: Heparin Amount: 2500 units Route: I.V. I, the attending physician, have reviewed and verified all procedure medications. Yes, all medications given per verbal order History/Risk Factors Hypertension: Yes Dyslipidemia: No Peripheral Arterial Disease (PAD): No Myocardial Infarction (PA): No Obesity: No Renal Disease: No Tobacco Use: Current/Recent(w/in 1 year) Prior Interventions PCI: No CABG: No Valve Surgery: No Report Signatures Finalized by Ayush Johnson MD on 01/02/2021 07:02 AM
--- NOTE | 2020-12-18 16:23 | P.HPUD_ITS ---
Surgery/Procedure H&P Update DATE OF PROCEDURE: December 18, 2020 DATE H&P PERFORMED: 12/17/20 H&P UPDATE INFORMATION: I have reviewed H&P completed within last 30 days, I have examined patient prior to procedure and Changes to prior documentation as noted here CHANGES TO PREVIOUS DOCUMENTATION: Initial plan was to perform coronary angiogram tomorrow. However, patient developed severe substernal chest pain. Given her drop in LVEF, troponin elevation and severe chest pain not relieved with nitro, we will proceed with supervisor dental laboratory activation and coronary angiogram with possible percutaneous coronary intervention. PREOP DIAGNOSIS: NSTEMI PRIMARY INDICATION FOR PROCEDURE: NSTEMI PLANNED PROCEDURE: Left heart cath with possible percutaneous coronary intervention PATIENT REASSESSED PRIOR TO SEDATION, WITH NO CHANGE NOTED: Yes PHYSICAL EXAM: alert, oriented x 3, clear to auscultation bilaterally and regular rate & rhythm AIRWAY EVAL/ANESTHESIA PLAN: ASA IV, Monitored Anesthesia, Local Anesthesia, Risks, benefits & alternatives of sedation and/or procedure discussed and Patient agrees to continue as planned
--- NOTE | 2020-12-18 17:15 | USR_ITS ---
PROCEDURE INFORMATION: Exam: US Duplex Lower Extremity Veins, Bilateral Exam date and time: 12/18/2020 5:15 PM Age: 75 years old Clinical indication: Swelling (edema) of limb; Lower extremity, bilateral; Additional info: R/O dvt TECHNIQUE: Imaging protocol: Real-time duplex ultrasound of the extremities with 2-D johnston scale, color Doppler flow and spectral waveform analysis with image documentation. Complete exam focused on the bilateral lower extremity veins. COMPARISON: MRI Knee w/o RIGHT* [id number] 12/14/2015 9:16 AM FINDINGS: Right deep veins: Unremarkable. The common femoral, femoral, proximal profunda femoral and popliteal veins are patent without thrombus. Normal Doppler waveforms. Normal compressibility and/or augmentation response. Right superficial veins: Saphenofemoral junction is patent without thrombus. Left deep veins: Unremarkable. The common femoral, femoral, proximal profunda femoral and popliteal veins are patent without thrombus. Normal Doppler waveforms. Normal compressibility and/or augmentation response. Left superficial veins: Saphenofemoral junction is patent without thrombus. Soft tissues: Unremarkable. US/CV venous duplex [facility] [id number] IMPRESSION: No evidence of deep vein thrombosis. Radiation Dose CTDIVOL = (mGy): DLP = (mGy-cm)
[2020-12-18] MEDS: ketorolac 30 mg/mL INJ 15 MG IVP (17:45)
[2020-12-18] MEDS: pantoprazole 40 mg SDV IVP (17:46)
--- NOTE | 2020-12-18 18:00 | XRR_ITS ---
PROCEDURE INFORMATION: Exam: XR Chest Exam date and time: 12/18/2020 6:00 PM Age: 75 years old Clinical indication: Pain; Chest pressure; Additional info: Chest pain, has ngt TECHNIQUE: Imaging protocol: XR of the chest. Views: 1 view. COMPARISON: CR (CHEST, ) 12/17/2020 5:10 PM FINDINGS: Tubes, catheters and devices: Enteric tube in the stomach. Left upper extremity PICC line terminates at the left innominate vein/SVC confluence stable in position from prior. Lungs: Emphysema. Hyperinflated lungs. Negative for focal airspace consolidation. Pleural spaces: Unremarkable. No pleural effusion. No pneumothorax. Heart/Mediastinum: Unremarkable. No cardiomegaly. Vasculature: Calcified plaques in the aortic arch. Bones/joints: Unremarkable. XR/XR chest 1V portable [id number] IMPRESSION: Enteric tube in the stomach. Radiation Dose CTDIVOL = (mGy): DLP = (mGy-cm)
[2020-12-18] MEDS: morphine 4 mg/mL SDV 1 mL 2 MG IVP (18:04)
--- NOTE | 2020-12-18 20:26 | PC.NURSE ---
at 1345 pt began c/o of increasing chest pain.vss.ekg obtained and dr cosby notified.pain continue to escalate to 10/10.ntg drip began at 1350 and titrated up with no relief obtained.mso4 given.dr cuenca came to assess pt and he ordered to take pt for angiogram.pt to ear mold laboratory technician at 1620 and returned to [facility] at 1715.report received.no intervention required.right wrist with tr band on and inflated.right hand warm to touch and with brisk capillary refill.no hematoma noted.palpable radial pulse noted distal to tr band.instructed pt in activity restrictions s/p radial artery procedure..and instructed pt to notify staff for any bleeding,numbness,brusing..or for any concerns at all.pt verb understanding of instructions.at approx 1720..pt's spouse reported that pt was again having severe chest pain.pt rated pain 10/10.dr cosby notified.he ordered pcxr.and mso4.dr cuenca assessed pt and ordered toradol and xanax.after approx 1/2 hour..pt reported that pain had relieved considerably.at frequent checks..pt was resting comfortably.
--- NOTE | 2020-12-18 22:42 | PC.NURSE ---
TR Band: removed 2ml of air Q15 starting at 1914. TR band removed at 2129. No bleeding/hematoma at this time. Patient tolerating removal of TR band well. VSS.
[2020-12-19] VITALS (9 sets, daily range): BP systolic 118–131; BP diastolic 66–81; PULSE 83–114; RESP 17–26; TEMP 36.7–37.1; O2SAT 92–98
[2020-12-19] MEDS: metoprolol tartrate 1 mg/1 mL SDV 5 mL 5 MG IVP ×4 (02:02→14:56)
[2020-12-19] MEDS: D5-NS 0.45% + KCL 20 mEq 20 MEQ/1,000 ML BAG 50 MEQ IV ×2 (04:27→09:53)
[2020-12-19] MEDS: ketorolac 30 mg/mL INJ 15 MG IVP ×2 (05:11→13:08)
--- NOTE | 2020-12-19 06:00 | XR_ITS ---
WS: [id number] XR abdomen min 2V [id number] REASON FOR EXAM: sbo FINDINGS: Nasogastric tube remains in place with a loop in the fundus and the tip in the mid body of the stomac h. No significant decompression of the small bowel loops compared to the previous day. Multiple small air-fluid levels persist. No free air. No retroperitoneal air. Air in the common bile duct and central intrahepatic bile ducts less prominent than on 12/18/2020. XR/XR abdomen min 2V [id number] IMPRESSION: Continued pattern of partial small bowel obstruction. Continued air in the bile ducts. Presumably this is secondary to sphincterotomy and exaggerated by small bowel obstruction.
[2020-12-19 06:27] LABS: Basophils # 0.1 10^3/uL (0.0-0.1); Basophils % 0.6 %; Eosinophils # 0.2 10^3/uL (0.0-0.8); Eosinophils % 2.4 %; Hematocrit 36.6 % (37.0-47.0); Hemoglobin 11.7 g/dL (11.5-15.3); Lymphocytes # 1.5 10^3/uL (0.8-4.8); Lymphocytes % 14.6 %; Mean Corpuscular Hemoglobin 26.5 pg (28.0-34.0); Mean Corpuscular Volume 82.8 fl (81-99); Monocytes # 1.6 10^3/uL (0.2-0.9); Monocytes % 15.2 %; Neutrophils # 6.77 10^3/uL (1.8-7.7); Neutrophils % 66.5 %; Nucleated Red Blood Cells % 0 %; Platelet Count 268 10^3/cmm (130-400); Red Blood Count 4.42 10^6/uL (4.1-5.3); Red Cell Distribution Width 14.4 % (12.1-15.1); White Blood Count 10.2 10^3/uL (4.0-10.0)
--- NOTE | 2020-12-19 06:27 | PC.NURSE ---
Shift Summary: Right radial site clean and dry, no signs of bleeding. Patient did complain of chest pain after walking the hallway, toradol given with relief. Xray this AM as ordered.
[2020-12-19 07:06] LABS: Alanine Aminotransferase 9 U/L (0-33); Alkaline Phosphatase 100 IU/L (35-105); Anion Gap 13.7 (5-19); Aspartate Amino Transferase 28 U/L (0-32); Blood Urea Nitrogen 9 mg/dL (8-23); Calcium 8.1 mg/dL (8.5-10.5); Carbon Dioxide 23 mmol/L (22-29); Chloride 104 mmol/L (98-107); Globulin 2.6 g/dL (1.3-4.6); Glucose 140 mg/dL (65-115); Osmolality Calculated 285 mOsm/kg (285-295); Potassium 3.7 mmol/L (3.5-5.1); Sodium 137 mmol/L (136-145); Total Protein 5.6 g/dL (6.6-8.7)
[2020-12-19 07:40] LABS: Troponin T (5th) Once 291 ng/L (0-10)
--- NOTE | 2020-12-19 08:08 | PM.PN ---
Subjective Subjective: Interval history: Patient underwent coronary angiogram yesterday urgently as she continued having chest pain with troponin elevation and decreasing LV systolic function. Coronary angiogram showed separate ostia of the LAD and left circumflex artery. No significant coronary artery disease was noted. Symptoms and troponin elevation with LV dysfunction likely secondary to ramsey-pericarditis. Vitals/I&O/Wt Last Vital Signs Temp 98.1 F 12/19/20 03:40 Pulse 92 12/19/20 07:23 Resp 19 H 12/19/20 07:23 BP 124/74 12/19/20 07:23 Pulse Ox 98 12/19/20 07:23 12/18/20 12/19/20 12/19/20 22:59 06:59 14:59 Intake Total 746.825 / 716.998 2580 / 1850.000 600 / 600 Output Total 200 / 200 300 / 500 Balance 546.825 / 550.000 800 / 1350.000 600 / 600 Weight last 48 hrs Weight 150 lb Weight 153 lb 8 oz Weight 154 lb Weight 140 lb Physical Exam Narrative: EXAM NARRATIVE: GENERAL: Patient is alert, awake and oriented x3. [] NECK: No jugular vein distension. [] HEENT: No cyanosis. No icterus. No pallor. [] HEART: Tachycardic, regular S1 and S2. Grade 2/6 systolic murmur, no rub or gallop. [] LUNGS: Clear to auscultate bilaterally. [] ABDOMEN: Soft CENTRAL NERVOUS SYSTEM: Grossly nonfocal. [] EXTREMITIES: Lower extremities with 1+ edema bilaterally. Pulses palpable in the lower extremities, both dorsalis pedis and posterior tibial. [] Data : 12/19/20 06:15 12/19/20 06:15 Micro: Microbiology 12/17/20 17:33 Blood Culture - Preliminary Blood NEGATIVE TO DATE 12/17/20 15:35 Blood Culture - Preliminary Blood NEGATIVE TO DATE A&P Assessment and plan (1) Non-ST elevation MT (NSTEMI): Status: Acute (2) DM II (diabetes mellitus, type II), controlled: Status: Chronic Qualifiers: Diabetes mellitus intermediate teacher insulin use: without intermediate teacher use Diabetes mellitus complication status: without complication Qualified Code(s): E11.9 - Type 2 diabetes mellitus without complications (3) Hypertension: Status: Chronic Qualifiers: Hypertension type: essential hypertension Qualified Code(s): I10 - Essential (primary) hypertension (4) Small bowel obstruction: Status: Acute (5) Congestive heart failure: Status: Acute (6) Myopericarditis: Status: Acute Patient has presented with small bowel obstruction. Getting conservative treatment at this time. She also has been having on and off chest pain for 2 to 3 days and her troponins have significantly gone up. 6-hour troponin went up to 377. Echocardiogram was a limited quality and showed moderate to severely reduced LV systolic function. Given her continued chest pain symptoms, along with elevated troponins and LV dysfunction,, she was taken to cardiac Field Artillery Senior Sergeant for urgent coronary angiogram yesterday. It revealed nonobstructive coronary artery disease and mildly reduced LV systolic function. Her symptoms likely are secondary to myopericarditis. As she is still n.p.o., we started Toradol for pain relief. Nitro and heparin drip stopped. Thank you for involving us with care of this patient. We will continue to follow. Please call with questions. Attestations Medical Necessity Statement*: Care expected to cross 2 midnights. Coding Level of Care Code Acute Animal Care Supervisor for [facility] Diagnoses Non-ST elevation MT (NSTEMI) I21.4 DM II (diabetes mellitus, type II), controlled E11.9 Diabetes mellitus care home insulin use: without intermediate teacher use Diabetes mellitus complication status: without complication Hypertension I10 Hypertension type: essential hypertension Small bowel obstruction K56.609 Congestive heart failure I50.9 Myopericarditis I31.9
[2020-12-19] MEDS: heparin 5,000 unit/mL INJ 1 mL 5000 UNIT SUBCUT ×2 (08:17→20:28)
--- NOTE | 2020-12-19 09:41 | P.PN_ITS ---
Subjective Subjective: Interval history: Patient had a large loose bowel movement today, abdominal pain is minimal, continues to have chest pain, had a cardiac cath yesterday Vitals/I&O/Wt Last Vital Signs Temp 98.0 F 12/19/20 08:00 Pulse 92 12/19/20 07:23 Resp 19 H 12/19/20 07:23 BP 124/74 12/19/20 07:23 Pulse Ox 98 12/19/20 07:23 12/18/20 12/19/20 12/19/20 22:59 06:59 14:59 Intake Total 746.825 / 7797.130 6222 / 1850.000 600 / 600 Output Total 200 / 500 300 / 500 Balance 546.825 / 1350.000 800 / 1350.000 600 / 600 Weight last 48 hrs Weight 150 lb Weight 153 lb 8 oz Weight 154 lb Weight 140 lb Physical Exam Narrative: EXAM NARRATIVE: Abdomen: Soft, not distended, minimally tender Data : 12/19/20 06:15 12/19/20 06:15 Micro: Microbiology 12/18/20 08:35 Urine Culture - Preliminary Urine,Clean Catch 12/17/20 17:33 Blood Culture - Preliminary Blood NEGATIVE TO DATE 12/17/20 15:35 Blood Culture - Preliminary Blood NEGATIVE TO DATE A&P Assessment and plan (1) Small bowel obstruction: 75-year-old female with multiple abdominal surgeries who has now developed small bowel obstruction. No evidence of peritonitis. Abdominal x-ray shows partial small bowel obstruction Clamp NG tube Start clear liquid diet 1 bottle of magnesium citrate We will also start her on senna S and lactulose twice daily for bowel regimen If patient tolerates clear liquid diet will try to remove the NG tube later today. Status: Acute Attestations Medical Necessity Statement*: As per primary Coding Level of Care Code Acute Bilingual Medical Receptionist for [facility] Diagnoses Small bowel obstruction K56.609
[2020-12-19] MEDS: aspirin 81 mg EC Tablet PO (09:50)
[2020-12-19] MEDS: magnesium citrate Btl 296 mL PO (09:50)
[2020-12-19] MEDS: lactulose oral liq 20 gm/30 mL UDC 10 GM PO ×2 (09:52→09:59)
[2020-12-19] MEDS: DAPTOmycin 500 MG in sodium chloride 0.9% (100 ml) 100 ML 100 MG IV (09:55)
[2020-12-19] MEDS: ondansetron 2 mg/ML SDV 2 mL 8 MG IVP ×2 (10:16→13:05)
[2020-12-19] MEDS: morphine 4 mg/mL SDV 1 mL 1 MG IVP ×2 (10:16→20:56)
--- NOTE | 2020-12-19 17:07 | PM.PN ---
Subjective Subjective: Interval history: Patient was seen and examined this morning. Continues to complain of chest pain with inspiration. Continue complaint of nausea. Having frequent pauses on telemetry Medications: Reviewed: Yes Vitals/I&O/Wt Last Vital Signs Temp 98.7 F 12/19/20 12:00 Pulse 101 H 12/19/20 16:41 Resp 17 12/19/20 16:41 BP 118/72 12/19/20 16:41 Pulse Ox 97 12/19/20 16:41 12/19/20 12/19/20 12/19/20 06:59 14:59 22:59 Intake Total 1100 / 2164.706 8141.667 / 1178.667 Output Total 300 / 500 Balance 800 / 0491.082 4349.667 / 1178.667 Weight last 48 hrs Weight 68.039 kg Weight 69.626 kg Weight 69.853 kg Physical Exam Const: COMMON NORMALS: patient oriented x3 HENMT: COMMON NORMALS: normocephalic and atraumatic HEAD & SCALP: normocephalic and atraumatic Resp: COMMON NORMALS: clear to auscultation bilaterally EFFORT & INSPECTION: Yes symmetric chest movement AUSCULTATION: clear to auscultation bilaterally Cardio: COMMON NORMALS: regular rate, regular rhythm, S1 normal heart sound present, S2 normal heart sound present, No gallops present (Cardio), No murmurs present (Cardio), No rub (Cardio) and Peripheral pulses 2+ throughout RATE: regular rate RHYTHM: regular rhythm HEART SOUNDS: S1 normal heart sound present and S2 normal heart sound present PERIPHERAL PULSES: Peripheral pulses 2+ throughout GI: COMMON NORMALS: Normal to inspection, nondistended, normoactive bowel sounds present, Soft to palpation, non-tender, No hepatosplenomegaly present and no masses AUSCULTATION: Yes normoactive bowel sounds PALPATION: Yes Soft to palpation and Yes No hepatosplenomegaly present RECTAL EXAM: deferred Extremity: COMMON NORMALS: no clubbing, cyanosis or edema and no pedal edema Neuro: COMMON NORMALS: patient oriented x3 Data : 12/19/20 06:15 12/19/20 06:15 Micro: Microbiology 12/18/20 08:35 Urine Culture - Preliminary Urine,Clean Catch 12/17/20 17:33 Blood Culture - Preliminary Blood NEGATIVE TO DATE 12/17/20 15:35 Blood Culture - Preliminary Blood NEGATIVE TO DATE A&P Assessment and plan (1) Small bowel obstruction: Status: Acute (2) MRSA bacteremia: Status: Chronic (3) Discitis, unspecified, lumbar region: Status: Chronic (4) DM II (diabetes mellitus, type II), controlled: Status: Chronic Qualifiers: Diabetes mellitus custodial insulin use: without exterminator helper use Diabetes mellitus complication status: without complication Qualified Code(s): E11.9 - Type 2 diabetes mellitus without complications (5) GUILLAUME (generalized anxiety disorder): Status: Chronic (6) Hypertension: Status: Chronic Qualifiers: Hypertension type: essential hypertension Qualified Code(s): I10 - Essential (primary) hypertension Additional A&P Information 75-year-old female with past medical history of extensive bowel surgeries, and intermittent bowel obstruction present to the ER with nausea and vomiting along with abdominal pain found to have small bowel obstruction who is also been treated as an outpatient for lumbar discitis and MRSA bacteremia on IV daptomycin for last 1 month. Non-ST elevation ND type II: Likely secondary to myopericarditis. S/p coronary angiogram: With nonocclusive coronary artery disease. Echocardiogram : EF of 30 to 35% with global LV hypokinesia with moderate to severe hypokinesis of anterior wall, mild to moderate TR with mild pulmonary hypertension. Initially she was on heparin drip, as well as nitro drip.Which has been discontinued. Continue aspirin, statin. IV metoprolol 5 mg every 4 hours has been stopped as the patient is having frequent significant pauses up to 5 seconds, with symptoms. Continue Toradol 15 mg IV every 6 as needed. Appreciate cardiology consult. Multiple frequent pauses: Maximum upto 5 seconds. Complains of lightheadedness during those episode. Denies any chest pain, shortness of breath. Hold I.V metoprolol. Continue to monitor on telemetry. Small bowel obstruction: NG tube placed. Appreciate surgery recommendations. Bowel rest and conservative treatment. Early ambulation. Initially n.p.o. except meds. Currently on clear liquids Monitor electrolytes. IV fluids with D5 NS 20 mg of potassium at 50 cc/h. Zofran as needed. Protonix IV. Serial abdominal imaging. Discitis: MRSA bacteremia: Continue with IV daptomycin. Blood culture:NTD CRP normal. ESR Patient will continue to follow with his ID physician as an outpatient. Will consider CT spine. Type 2 diabetes mellitus: Insulin sliding scale low-dose protocol every 6 hours. Hypertension: Hydralazine 5 mg IV every 6 hours as needed. Check iron panel, lipid panel, A1c, ESR, CRP, procalcitonin, TSH. CODE STATUS: Discussed with patient and at bedside. DNR/DNI. Protonix OPD prophylaxis. Heparin for DVT prophylaxis. We will request documentation from [facility] regarding prior abdominal surgery last year, ID notes regarding MRSA bacteremia and IV antibiotics. Attestations Medical Necessity Statement*: Patient needs to be in hospital for management of chest pain. 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
[2020-12-19] MEDS: pantoprazole 40 mg SDV IVP (17:38)
[2020-12-19] MEDS: sennosides-docusate Tablet 1 TAB PO (17:38)
--- NOTE | 2020-12-19 19:06 | PC.NURSE ---
NG tube removed. Pt tolerated well. Pt had no c/o pain or discomfort at the present time. No needs voiced. Call light in reach.
--- NOTE | 2020-12-19 22:39 | PC.NURSE ---
Dr. Downey notified of patient stating that she does not want to be a full code.
[2020-12-20] VITALS: BP 126/74; PULSE 115; RESP 24; O2SAT 95
[2020-12-20 04:00] VITALS: BP 129/77; PULSE 95; RESP 16; O2SAT 95
[2020-12-20 04:56] VITALS: PULSE 90; BMI 27.4
--- NOTE | 2020-12-20 07:34 | PM.PN ---
Subjective Subjective: Interval history: patient doing well, tolerating full liquid, had liquid BM Vitals/I&O/Wt Last Vital Signs Temp 98.3 F 12/19/20 19:14 Pulse 90 12/20/20 04:56 Resp 16 12/20/20 04:00 BP 129/77 12/20/20 04:00 Pulse Ox 95 12/20/20 04:00 12/19/20 12/20/20 12/20/20 22:59 06:59 14:59 Intake Total 60 / 1238.667 Balance 60 / 1238.667 Weight last 48 hrs Weight 150 lb Weight 150 lb Physical Exam Narrative: EXAM NARRATIVE: Abdomen: soft, NT, ND Data : 12/19/20 06:15 12/19/20 06:15 Micro: Microbiology 12/18/20 08:35 Urine Culture - Preliminary Urine,Clean Catch A&P Assessment and plan (1) Small bowel obstruction: 75-year-old female with multiple abdominal surgeries who has now developed small bowel obstruction. No evidence of peritonitis. tolerating full liquids, advance to GI soft later today OK to d/.c home from GI standpoint on aggressive bowel regimen. Informed the patient's discharge will be decided by Dr. Layne and Dr. Johnson F/u PRN Status: Acute Attestations Medical Necessity Statement*: as per primary Coding Level of Care Code Acute Rheostat Assembler for [facility] Fwd Diagnoses Small bowel obstruction K56.609
[2020-12-20] MEDS: heparin 5,000 unit/mL INJ 1 mL 5000 UNIT SUBCUT (08:15)
[2020-12-20] MEDS: aspirin 81 mg EC Tablet PO (08:15)
[2020-12-20] MEDS: sennosides-docusate Tablet 1 TAB PO (08:15)
[2020-12-20 08:55] VITALS: BP 137/77; PULSE 87; RESP 25; TEMP 36.8; O2SAT 98
[2020-12-20 08:59] LABS: Erythrocyte Sedimentation Rate 2 mm/hr (0-15)
[2020-12-20 09:17] LABS: Basophils # 0.1 10^3/uL (0.0-0.1); Eosinophils # 0.5 10^3/uL (0.0-0.8); Eosinophils % 5.8 %; Hematocrit 41.6 % (37.0-47.0); Lymphocytes # 1.6 10^3/uL (0.8-4.8); Lymphocytes % 20.3 %; Mean Corpuscular HGB Conc 31.3 g/dL (30.0-36.0); Mean Corpuscular Hemoglobin 26.3 pg (28.0-34.0); Mean Platelet Volume 10.9 fL (7.4-10.4); Monocytes # 0.7 10^3/uL (0.2-0.9); Monocytes % 9.6 %; Neutrophils # 4.85 10^3/uL (1.8-7.7); Neutrophils % 62.9 %; Nucleated Red Blood Cells % 0 %; Platelet Count 272 10^3/cmm (130-400); Red Blood Count 4.95 10^6/uL (4.1-5.3); Red Cell Distribution Width 14.5 % (12.1-15.1); White Blood Count 7.7 10^3/uL (4.0-10.0)
[2020-12-20] MEDS: DAPTOmycin 500 MG in sodium chloride 0.9% (100 ml) 100 ML 100 MG IV (09:19)
[2020-12-20 09:25] LABS: Blood Urea Nitrogen 7 mg/dL (8-23); Calcium 8.3 mg/dL (8.5-10.5); Carbon Dioxide 23 mmol/L (22-29); Chloride 105 mmol/L (98-107); Glucose 148 mg/dL (65-115); Magnesium 1.9 mg/dL (1.7-2.3); Osmolality Calculated 287 mOsm/kg (285-295); Sodium 138 mmol/L (136-145)
[2020-12-20 09:28] LABS: Anion Gap 13.6 (5-19); Potassium 3.6 mmol/L (3.5-5.1)
--- NOTE | 2020-12-20 09:43 | PC.SOCIAL ---
IMM Update Pg. 2 of IMM updated and reviewed with patient, who verbalized understanding. Copy provided.
--- NOTE | 2020-12-20 09:55 | P.PN_ITS ---
Subjective Subjective: Interval history: Patient states she feels better. She has been able to walk down the halls. Denies any pleuritic chest pain. Medications: Reviewed: Yes Vitals/I&O/Wt Last Vital Signs Temp 98.3 F 12/20/20 08:55 Pulse 87 12/20/20 08:55 Resp 25 H 12/20/20 08:55 BP 137/77 12/20/20 08:55 Pulse Ox 98 12/20/20 08:55 12/19/20 12/20/20 12/20/20 22:59 06:59 14:59 Intake Total 60 / 1238.667 400 / 400 Balance 60 / 1238.667 400 / 400 Weight last 48 hrs Weight 150 lb Weight 150 lb Physical Exam Narrative: EXAM NARRATIVE: GENERAL: Averagely built and averagely nourished in no acute distress HEENT: No pallor or icterus. NECK: central trachea,No JVD CARDIOVASCULAR SYSTEM: S1-S2 regular. No murmur or gallops. RESPIRATORY SYSTEM: Chest clear to auscultation. No wheezes rhonchi or rubs heard. ABDOMEN: Soft, nontender and nondistended. EXTREMITIES: No cyanosis or clubbing. [No edema]. No signs of chronic venous insufficiency. AIR EXPORT OPERATIONS AGENT: Patient is alert oriented ?3. No focal neurological deficits. Data : 12/20/20 08:32 12/20/20 08:32 Micro: Microbiology 12/18/20 08:35 Urine Culture - Final Urine,Clean Catch Attestation for Other Data: I personally reviewed and interpreted the following: Other data: Transthoracic echocardiogram 18 December 2020 CONCLUSIONS Limited quality echocardiogram because of poor ultrasonic windows. LV systolic function is moderate to severely reduced with EF of 30 to 35%. There is moderate global hypokinesis with moderate to severe hypokinesis of the anterior wall. Mild mitral regurgitation. Mild to moderate tricuspid regurgitation. Mild pulmonary hypertension. Compared to prior echocardiogram from 01/14/2018 LV systolic function is now significantly reduced. A&P Assessment and plan (1) Non-ST elevation VA (NSTEMI): Status: Acute (2) Congestive heart failure: Status: Acute (3) Myopericarditis: Status: Acute (4) Hypertension: Status: Chronic Qualifiers: Hypertension type: essential hypertension Qualified Code(s): I10 - Essential (primary) hypertension (5) Small bowel obstruction: Status: Acute (6) DM II (diabetes mellitus, type II), controlled: Status: Chronic Qualifiers: Diabetes mellitus complication status: without complication Diabetes mellitus residential insulin use: without residential use Qualified Code(s): E11.9 - Type 2 diabetes mellitus without complications Multiple pauses 2.5 to greater than 5 seconds on telemetry noted yesterday. This happened after she received metoprolol 5 mg IV x1. Last episode at 6 PM yesterday evening. No episodes overnight or this morning. Patient is insisting on going home today. Continue to hold off on Coreg (home med) on discharge. History of MRSA bacteremia and lumbar discitis: Leukocytosis has resolved. No fever or chills. Blood cultures x2 since 12/17/20 have been negative. Currently on daptomycin till 16 January. She is being followed by ID at [facility]. Patient has presented with small bowel obstruction. Getting conservative treatment at this time. She also has been having on and off chest pain for 2 to 3 days and her troponins have significantly gone up. 6-hour troponin went up to 377. Echocardiogram was TDS and showed moderate to severely reduced LV systolic function. Given her continued chest pain symptoms, along with elevated troponins and LV dysfunction,, she was taken to cardiac Research And Evaluation Analyst for urgent coronary angiogram. It revealed nonobstructive coronary artery disease. - Her symptoms could be secondary to myopericarditis. Takotsubo cardiomyopathy cannot be completely ruled out -Start on low-dose lisinopril on discharge with plan to uptitrate as an outpatient. May need to start on low-dose diuretic after the blood work. -May use NSAIDs as needed as an outpatient. f/u BMP, ESR, CRP in 1 week -f/u in echo limited with and w/o contrast in 4-6 weeks Thank you for involving us with care of this patient. We will continue to follow. Please call with questions. Attestations Medical Necessity Statement*: As per primary team Time Spent in Patient Care: 16 - 35 minutes (>than 50% of time spent in counselling and/or direct pt care on unit) . 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
--- NOTE | 2020-12-20 12:59 | P.DS_ITS ---
Discharge Providers Date of Admission: 12/17/20 16:21 Date of Discharge: December 20, 2020 Attending Provider at Admission: Evans Aquino MD Attending Provider at Discharge: Adiel Layne MD Primary Care Provider: Baldomero Britt MD Diagnoses at Discharge Discharge Diagnosis (1) Non-ST elevation MO (NSTEMI): Status: Acute (2) DM II (diabetes mellitus, type II), controlled: Status: Chronic Qualifiers: Diabetes mellitus complication status: without complication Diabetes mellitus [place] [facility] insulin use: without [place] [facility] use Qualified Code(s): E11.9 - Type 2 diabetes mellitus without complications (3) Hypertension: Status: Chronic Qualifiers: Hypertension type: essential hypertension Qualified Code(s): I10 - Essential (primary) hypertension (4) Small bowel obstruction: Status: Acute (5) Congestive heart failure: Status: Acute (6) Myopericarditis: Status: Acute Reason for Visit 2 Reason for Visit: CP, ABD PAIN, BP 218/124: INFUSION THIS AM Hospital Course Hospital Course HPI Done by Dr. 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 Oliveira at [facility], recent history of discitis, MRSA bacteremia on daptomycin since October 16 with plan to continue treatment for 3 months which is being followed by ID physician Dr. Brewer at [facility], CAD which is being followed up with Dr. Hoyt, type 2 diabetes mellitus. She was getting that her daptomycin infusion today when she had an episode of vomiting so was brought to the ER. In the ER patient states she has been having abdominal pain, nausea with occasional episode of vomiting for last 4 to 5 days with last bowel movement 3 days ago. She states she has had multiple bowel obstructions in the past and she thought she is getting 1 for last 3 days for which she has been taking aggressive bowel regimen at home without any help. She denies any nausea, vomiting, headache, fever, cough, swelling in any of the limbs, diarrhea, dysuria. States her lower limb radiculopathy has been getting better for last 1 month since starting of IV antibiotics. Blood work in the ER showed acute of 11.6, hemoglobin of 14.7, INR of 1, sodium of 138, creatinine of 0.6, lactate of 1.6, AST/ALT of 16/8, baseline troponin of [address] abdomen pelvis :Small bowel is dilated with few decompressed small bowel loops in the right lower quadrant. Findings suggestive of small-bowel o bstruction. During the hospital stay she was managed for NSTEMI type II likely secondary to myopericarditis, cannot conclusively rule out possible TCT, based on the 2D echo findings. She underwent cardiac cath: Which showed non occlusive coronary artery disease. 2D echo: EF of 30 to 35% with global LV hypokinesia with moderate to severe hypokinesis of anterior wall, mild to moderate TR with mild pulmonary hypertension. Initially she was managed as per ACS protocol she was kept on heparin drip as well as nitro drip which was later discontinued, she was also kept on aspirin statin and beta-blockers. Beta-eduardo was discontinued on discharge as she was having multiple significant pauses on telemetry. Maximum upto 5 seconds with lightheadedness, but no chest pain shortness of breath.She was discharged on event monitor for 2 weeks. For possible myopericarditis she was kept on Toradol during the hospital stay as needed, she is being discharged on ibuprofen as needed. Cardiology was on board. She will continue to follow cardiology as an outpatient. For small bowel obstruction she was managed conservatively NG tube was placed. Initially she was n.p.o. once she started passing stool and flatus, and abdominal pain resolved with no nausea and vomiting she was started on clear liquid diet at the time of discharge she was tolerating GI soft diet well. For her discitis and MRSA bacteremia She has been asked to continue with her daptomycin regimen which is ending on 16 of January. She will continue to follow with her ID physician in [place]. Blood cultures during the hospital stay has been negative, she remained afebrile and hemodynamically stable during the hospital stay, limited 2D echo done during the hospital stay: Failed to comment on possible endocarditis, but clinical suspicion for endocarditis was low hence no SHAHZAD was pursued. Given her soft blood pressure lisinopril dose has been decreased to 5 mg p.o. twice daily as compared to 20 mg p.o. twice daily. Patient responded well to the above medical management and is being discharged in stable condition. She will continue to follow-up with cardiology as an outpatient in a week time with repeat CBC ESR and CRP. Physical Exam Const: COMMON NORMALS: patient oriented x3 HENMT: COMMON NORMALS: normocephalic and atraumatic HEAD & SCALP: normocephalic and atraumatic Resp: COMMON NORMALS: clear to auscultation bilaterally EFFORT & INSPECTION: Yes symmetric chest movement AUSCULTATION: clear to auscultation bilaterally Cardio: COMMON NORMALS: regular rate, regular rhythm, S1 normal heart sound present, S2 normal heart sound present, No gallops present (Cardio), No murmurs present (Cardio), No rub (Cardio) and Peripheral pulses 2+ throughout RATE: regular rate RHYTHM: regular rhythm HEART SOUNDS: S1 normal heart sound present and S2 normal heart sound present PERIPHERAL PULSES: Peripheral pulses 2+ throughout GI: COMMON NORMALS: Normal to inspection, nondistended, normoactive bowel sounds present, Soft to palpation, non-tender, No hepatosplenomegaly present and no masses AUSCULTATION: Yes normoactive bowel sounds PALPATION: Yes Soft to palpation and Yes No hepatosplenomegaly present RECTAL EXAM: deferred Extremity: COMMON NORMALS: no clubbing, cyanosis or edema and no pedal edema Neuro: COMMON NORMALS: patient oriented x3 Discharge Data Data Completed and Pending: Completed Studies During Hospitalization Category Date Time Status CT abdomen pelvis w con* [id number] Urge nt Cat Scan 12/17/20 15:10 Completed CXRP [XR chest 1V portable [id number]] S tat Exams 12/17/20 17:02 Completed XR abdomen min 2V [id number] Routine Exams 12/18/20 07:50 Completed XR abdomen min 2V [id number] Routine Exams 12/19/20 06:00 Completed XR chest 1V chel ble [id number] Stat Exams 12/18/20 18:00 Completed XR chest 1V chel ble [id number] Urgent Exams 12/17/20 15:10 [place] [id number] Routin e Ultrasound 12/18/20 17:15 Completed CV. echo complete * [id number] Routine Ultrasound 12/18/20 Completed Pending at discharge Category Date Time Status BOARD HANDLER request for service Routin e Exams 12/18/20 15:57 Taken Basic Metabolic P kaye AM LABS Lab 12/21/20 04:00 Ordered Basic Metabolic P kaye AM LABS Lab 12/22/20 04:00 Ordered Basic Metabolic P kaye AM LABS Lab 12/23/20 04:00 Ordered Blood Culture Sta t Lab 12/17/20 17:33 Results CRP High Sensitiv ity Cardiac Routin e Lab 12/20/20 12:47 Ordered Complete Blood Co unt w/Auto AM LABS Lab 12/21/20 04:00 Ordered Complete Blood Co unt w/Auto AM LABS Lab 12/22/20 04:00 Ordered Complete Blood Co unt w/Auto AM LABS Lab 12/23/20 04:00 Ordered Erythrocyte Sedim entation Rate AM L ABS Lab 12/20/20 04:31 Received Erythrocyte Sedim entation Rate Rout ine Lab 12/20/20 12:47 Ordered Labs from last 24 hours 12/20/20 12/20/20 12/20/20 08:32 08:32 08:32 WBC 7.7 RBC 4.95 Hgb 13.0 Hct 41.6 MCV 84.0 MCH 26.3 L MCHC 31.3 RDW 14.5 Plt Count 272 MPV 10.9 H Neut % (Auto) 62.9 Lymph % (Auto) 20.3 Sharp % (Auto) 9.6 Eos % (Auto) 5.8 Baso % (Auto) 1.0 Neut # (Auto) 4.85 Lymph # (Auto) 1.6 Sharp # (Auto) 0.7 Eos # (Auto) 0.5 Baso # (Auto) 0.1 Nucleated RBC % (a uto) 0 Nucleated RBCs # 0.0 ESR Sodium 138 Potassium 3.6 Chloride 105 Carbon Dioxide 23 Anion Gap 13.6 BUN 7 L Creatinine 0.5 GFR Calculation Not Reportable Glucose 148 H Calculated Osmolal ity 287 Calcium 8.3 L Magnesium 1.9 C-React Prot High Sens Pending 12/20/20 12/19/20 12/18/20 04:31 06:15 07:00 WBC RBC Hgb Hct MCV MCH MCHC RDW Plt Count MPV Neut % (Auto) Lymph % (Auto) Sharp % (Auto) Eos % (Auto) Baso % (Auto) Neut # (Auto) Lymph # (Auto) Sharp # (Auto) Eos # (Auto) Baso # (Auto) Nucleated RBC % (a uto) Nucleated RBCs # ESR Pending 2 Cancelled Sodium Potassium Chloride Carbon Dioxide Anion Gap BUN Creatinine GFR Calculation Glucose Calculated Osmolal ity Calcium Magnesium C-React Prot High Sens Vitals: Last Vital Signs Temp 98.3 F 12/20/20 08:55 Pulse 87 12/20/20 08:55 Resp 25 H 12/20/20 08:55 BP 137/77 12/20/20 08:55 Pulse Ox 98 12/20/20 08:55 Discharge Plan Discharge Patient Disposition: Home Condition: Stable Prescriptions: New lisinopril 5 mg tablet 5 mg PO BID Qty: 30 RF: 0 ibuprofen 200 mg tablet 200 mg PO Q8H PRN (Reason: chest pain) Qty: 7 RF: 0 lactulose 20 gram/30 mL Solution 10 g PO Q12H Qty: 1200 RF: 0 Continued sumatriptan succinate 100 mg tablet See Rx Instructions PO .COMPLEX PRN (Reason: Migraine Headache) RF: 0 ondansetron HCl 4 mg tablet 4 mg PO Q12H PRN (Reason: nausea and vomiting) Qty: 60 RF: 0 aspirin [Aspirin Low Dose] 81 mg Tablet,Delayed Release (Dr/Ec) 81 mg PO DAILY@2199 RF: 0 hydrocodone-acetaminophen 5-325 mg Tablet 1 tab PO Q8H PRN (Reason: Pain) RF: 0 docusate sodium 50 mg Capsule 50 mg PO BID RF: 0 buspirone 10 mg Tablet 5 mg PO BID PRN (Reason: Anxiety) RF: 0 daptomycin 500 mg Recon Soln 500 mg IV DAILY MDD SEE PHARMACY COMMENT RF: 0 Discontinued sennosides-docusate sodium [Senna Laxative-Stool Softener] 8.6-50 mg Tablet 1 tab-cap PO BID RF: 0 carvedilol 25 mg tablet 12.5 mg PO BID@ RF: 0 lisinopril 20 mg tablet 20 mg PO BID PRN (Reason: Blood Pressure) RF: 0 Discharge Orders: Discharge Order (Routine); Ordered 12/20/20 Ordered By: Adiel Layne Other Ambulatory Orders: Complete Blood Count w/Auto (Routine) Timeframe: 1 Week Location: Determined by Patient Ordered By: Adiel Layne C Reactive Protein (Routine) Timeframe: 1 Week Facility: [facility] - Location: Lab - Main Lab Ordered By: Adiel Layne Erythrocyte Sedimentation Rate (Routine) Timeframe: 1 Week Facility: [facility] - Location: Lab - Main Lab Ordered By: Adiel Layne Referrals: Baldomero Britt MD [Primary Care Provider] - 4-7 days (Please follow-up Dr. Britt on at 1:30P.M. If you have any questions or need to reschedule. Please call ) Jacey Tran MD [Physician] - 2 weeks (Please follow-up Dr. Tran on at 2:15P.M. If you have any questions or need to reschedule. Please call Upon discharge you have an appointment at [facility]. To have an Evenet Moniter placed. ) Discharge Diet: Regular Discharge Activity: Resume usual activity Patient Instructions: Lisinopril (By mouth), Ibuprofen (By mouth), Lactulose (By mouth), Heart Failure (DC), Chest Pain (DC), CHF Stoplight, Opioid Safety Discharge Attestations Time Spent in Discharge Care*: less than 30 min Specific Discharge Activities: educating patient, educating and/or supporting family/caregiver, discussing with pcp/other providers, discussing with residential case manager/social workers/dc planners, documenting/other paperwork and evaluating patient/reviewing data Status at Discharge: Cognitive status at discharge: cognitively intact , B ehavioral status at discharge: cooperative , Functional status at discharge: independent ambulation Overall status at discharge: patient is back to baseline Quality Metrics Clinical Quality Measures During this hospital stay, did patient experience: None Coding Level of Care Code Acute Chg FW DC note Diagnoses Non-ST elevation MO (NSTEMI) I21.4 DM II (diabetes mellitus, type II), controlled E11.9 Diabetes mellitus complication status: without complication Diabetes mellitus bed bug exterminator insulin use: without [place] [facility] use Hypertension I10 Hypertension type: essential hypertension Small bowel obstruction K56.609 Congestive heart failure I50.9 Myopericarditis I31.9
[2020-12-20 13:38] VITALS: BP 119/70; PULSE 75; RESP 18; O2SAT 95
[2020-12-20 14:40] VITALS: BP 119/70; PULSE 75; RESP 18; O2SAT 95
--- NOTE | 2020-12-20 14:43 | PC.NURSE ---
pt escorted to [facility] via wheelchair to be fitted for event monitor. Pt education provided to her and spouse.
[2020-12-21 12:43] LABS: Erythrocyte Sedimentation Rate 9 mm/hr (0-15)
--- NOTE | 2020-12-22 09:15 | PC.SOCIAL ---
discharge follow up call made, spoke with patient and patients . patients takes care of her medications. he is aware of the new medications, discontinued and continued home medications. patient was currently on her way to have her daily antibiotic infusion. patient is aware of follow up appointment dates and times. per patients patient will have follow up labs drawn when she sees her pcp on saturday. patient denies any questions or concerns at this time.
== END 2020-12-20 14:45 | disposition home or self-care (01) | DRG 281 ==
LOC: ER 16:13 → MEDSURG 16:59 → CSU 18:46 → MEDSURG 12-19 13:22 → CSU 12-19 13:26
PROVIDERS: Internal Medicine; Internal Medicine Cardiovascular Disease; Admitting Provider Student in an Organized Health Care Education/Training Program; Emergency Provider Emergency Medicine; PCP Family Medicine; Visit Provider Internal Medicine
PROC: B205YZZ Plain Radiography of Left Heart using Other Contrast (ICD-10-PCS; principal; 2020-12-18 16:15)
DX: I21.A1 Myocardial infarction type 2 (principal); K56.609 Unspecified intestinal obstruction, unspecified as to partial versus complete obstruction; I51.81 Takotsubo syndrome; I31.9 Disease of pericardium, unspecified; I25.10 Atherosclerotic heart disease of native coronary artery without angina pectoris; Z90.49 Acquired absence of other specified parts of digestive tract; B95.62 Methicillin resistant Staphylococcus aureus infection as the cause of diseases classified elsewhere; E11.9 Type 2 diabetes mellitus without complications; K21.9 Gastro-esophageal reflux disease without esophagitis; M10.9 Gout, unspecified; I10 Essential (primary) hypertension; I25.2 Old myocardial infarction; M19.90 Unspecified osteoarthritis, unspecified site; Z87.891 Personal history of nicotine dependence; F41.1 Generalized anxiety disorder; M46.46 Discitis, unspecified, lumbar region; Z79.891 Long term (current) use of opiate analgesic; Z79.82 Long term (current) use of aspirin; K59.00 Constipation, unspecified; Z66 Do not resuscitate
CPT/HCPCS: 36415; 36592; 71045; 74019; 74177; 80048; 80053; 80061; 81001; 82550; 83036; 83540; 83550; 83605; 83690; 83735; 84100; 84145; 84443; 84484; 85007; 85025; 85027; 85610; 85651; 85730; 86140; 86141; 87040; 87086; 93005; 93306; 93458; 93970; 94664; 96361; 96365; 96372; 96374; 96375; 97116; 97162; 99285; C1769; C1887; C1894; C9113; J0878; J1170; J1644; J1885; J2250; J2270; J2405; J2765; J3490; J7040; J7050; Q9967

== ENCOUNTER 2021-01-08 09:00 | Outpatient (RCR) | payer MEDICARE, OTHER, SELFPAY ==
[2020-12-21 09:17] VITALS: BP 128/75; PULSE 100; RESP 18; TEMP 36.1; O2SAT 99; BMI 25.6
[2020-12-21] MEDS: DAPTOmycin 500 MG in sodium chloride 0.9% (100 ml) 100 ML 100 MG IV (09:24)
[2020-12-22] MEDS: DAPTOmycin 500 MG in sodium chloride 0.9% (100 ml) 100 ML 100 MG IV (09:42)
[2020-12-22 09:49] LABS: Basophils # 0.1 10^3/uL (0.0-0.1); Basophils % 0.9 %; Eosinophils # 0.7 10^3/uL (0.0-0.8); Eosinophils % 7.9 %; Hematocrit 41.4 % (37.0-47.0); Hemoglobin 13.1 g/dL (11.5-15.3); Lymphocytes # 1.9 10^3/uL (0.8-4.8); Lymphocytes % 21.9 %; Mean Corpuscular HGB Conc 31.6 g/dL (30.0-36.0); Mean Corpuscular Hemoglobin 26.4 pg (28.0-34.0); Mean Corpuscular Volume 83.5 fl (81-99); Mean Platelet Volume 10.3 fL (7.4-10.4); Monocytes # 0.8 10^3/uL (0.2-0.9); Monocytes % 9.1 %; Neutrophils # 5.18 10^3/uL (1.8-7.7); Neutrophils % 59.9 %; Nucleated Red Blood Cells % 0 %; Platelet Count 338 10^3/cmm (130-400); Red Blood Count 4.96 10^6/uL (4.1-5.3); Red Cell Distribution Width 14.6 % (12.1-15.1); White Blood Count 8.7 10^3/uL (4.0-10.0)
[2020-12-22 10:28] LABS: Alanine Aminotransferase 9 U/L (0-33); Albumin Level 3.4 g/dL (3.5-5.2); Alkaline Phosphatase 104 IU/L (35-105); Anion Gap 13.7 (5-19); Aspartate Amino Transferase 14 U/L (0-32); Blood Urea Nitrogen 7 mg/dL (8-23); C Reactive Protein 14.2 mg/L (0.0-4.9); Calcium 8.8 mg/dL (8.5-10.5); Carbon Dioxide 27 mmol/L (22-29); Chloride 105 mmol/L (98-107); Creatine Phosphokinase 50 U/L (26-192); Globulin 3.1 g/dL (1.3-4.6); Glucose 126 mg/dL (65-115); Osmolality Calculated 294 mOsm/kg (285-295); Potassium 3.7 mmol/L (3.5-5.1); Sodium 142 mmol/L (136-145); Total Bilirubin 0.5 mg/dL (0.15-1.2); Total Protein 6.5 g/dL (6.6-8.7)
--- NOTE | 2020-12-22 13:47 | XR_ITS ---
WS: [id number] XR lumbar spine min 4V [id number] REASON FOR EXAM: M54.9 - Dorsalgia, unspecified FINDINGS: Mild rotatory scoliosis of the lumbar spine convex left. No significant lumbar vertebral body abnormality. Significant narrowing of the L4-L5 disc space with mild narrowing of the L3-L4 disc space. No significant listhesis. No significant vertebral body shift with flexion or extension. XR/XR lumbar spine min 4V [id number] IMPRESSION: Degenerative spondylosis of the lumbar spine as above.
[2020-12-23] MEDS: DAPTOmycin 500 MG in sodium chloride 0.9% (100 ml) 100 ML 100 MG IV (09:29)
[2020-12-23 09:33] VITALS: BP 104/77; PULSE 94; RESP 18; TEMP 36.1; O2SAT 100
[2020-12-24] MEDS: DAPTOmycin 500 MG in sodium chloride 0.9% (100 ml) 100 ML 100 MG IV (09:25)
[2020-12-24 10:44] VITALS: BP 91/64; PULSE 104; RESP 16; TEMP 36.1; O2SAT 97
[2020-12-25 09:10] VITALS: BP 122/68; PULSE 100; RESP 18; TEMP 36.4; O2SAT 99
[2020-12-25] MEDS: DAPTOmycin 500 MG in sodium chloride 0.9% (100 ml) 100 ML 100 MG IV (09:10)
[2020-12-26] MEDS: DAPTOmycin 500 MG in sodium chloride 0.9% (100 ml) 100 ML 100 MG IV (08:50)
[2020-12-26 08:53] VITALS: BP 90/69; PULSE 100; RESP 18; TEMP 36.2; O2SAT 99
[2020-12-27] MEDS: DAPTOmycin 500 MG in sodium chloride 0.9% (100 ml) 100 ML 100 MG IV (09:28)
[2020-12-27 09:29] VITALS: BP 97/61; PULSE 82; RESP 18; TEMP 36.1; O2SAT 97
[2020-12-28 08:54] VITALS: BP 129/73; PULSE 83; RESP 18; TEMP 36.5; O2SAT 98
[2020-12-28] MEDS: DAPTOmycin 500 MG in sodium chloride 0.9% (100 ml) 100 ML 100 MG IV (08:57)
[2020-12-29] MEDS: DAPTOmycin 500 MG in sodium chloride 0.9% (100 ml) 100 ML 100 MG IV (09:00)
[2020-12-29 09:08] VITALS: BP 97/86; PULSE 80; RESP 18; TEMP 36.2; O2SAT 98
[2020-12-29 09:09] LABS: Hematocrit 43.5 % (37.0-47.0); Mean Corpuscular HGB Conc 29.9 g/dL (30.0-36.0); Mean Corpuscular Hemoglobin 25.6 pg (28.0-34.0); Mean Corpuscular Volume 85.6 fl (81-99); Mean Platelet Volume 10.2 fL (7.4-10.4); Platelet Count 306 10^3/cmm (130-400); Red Blood Count 5.08 10^6/uL (4.1-5.3); Red Cell Distribution Width 14.6 % (12.1-15.1); White Blood Count 7.8 10^3/uL (4.0-10.0)
[2020-12-29 09:40] LABS: Alanine Aminotransferase 9 U/L (0-33); Albumin Level 3.8 g/dL (3.5-5.2); Alkaline Phosphatase 96 IU/L (35-105); Anion Gap 13.3 (5-19); Aspartate Amino Transferase 18 U/L (0-32); Blood Urea Nitrogen 9 mg/dL (8-23); C Reactive Protein 1.4 mg/L (0.0-4.9); Calcium 8.9 mg/dL (8.5-10.5); Carbon Dioxide 27 mmol/L (22-29); Chloride 101 mmol/L (98-107); Creatine Phosphokinase 37 U/L (26-192); Globulin 2.9 g/dL (1.3-4.6); Glucose 190 mg/dL (65-115); Osmolality Calculated 288 mOsm/kg (285-295); Potassium 4.3 mmol/L (3.5-5.1); Sodium 137 mmol/L (136-145); Total Bilirubin 0.4 mg/dL (0.15-1.2); Total Protein 6.7 g/dL (6.6-8.7)
--- NOTE | 2020-12-29 09:47 | PC.NURSE ---
Sorbaview dressing used
[2020-12-29 10:26] LABS: Absolute Eosinophils 0.7 10^3/cmm (0.0-0.7); Absolute Segmented Neutrophil 4.4 10/cmm (1.6-7.1); Band Neutrophils Absolute 0.2 10^3/cmm (0.0-1.2); Eosinophils 9 %; Lymphocytes 31 %; Monocytes Absolute 0.1 10^3/cmm (0.1-0.6); Segmented Neutrophils 57 %; Total Cells Counted 100 (0-100)
[2020-12-29 10:27] LABS: Absolute Neutrophil 4.6 10^3/cmm (1.4-6.5); Lymphocytes Absolute 2.4 10^3/cmm (1.2-3.4); Platelet Estimate Normal (Normal)
[2020-12-30 08:50] VITALS: BP 112/51; PULSE 76; RESP 18; TEMP 36.2; O2SAT 100
[2020-12-30] MEDS: DAPTOmycin 500 MG in sodium chloride 0.9% (100 ml) 100 ML 100 MG IV (08:58)
[2020-12-31 08:54] VITALS: BP 119/59; PULSE 75; RESP 18; TEMP 36.5; O2SAT 94
[2020-12-31] MEDS: DAPTOmycin 500 MG in sodium chloride 0.9% (100 ml) 100 ML 100 MG IV (08:54)
[2021-01-01 12:56] VITALS: BP 161/75; PULSE 76; RESP 18; TEMP 36.6; O2SAT 99
[2021-01-01] MEDS: DAPTOmycin 500 MG in sodium chloride 0.9% (100 ml) 100 ML 100 MG IV (13:00)
[2021-01-02 07:56] VITALS: BP 123/59; PULSE 77; RESP 18; TEMP 36.3; O2SAT 97
[2021-01-02] MEDS: DAPTOmycin 500 MG in sodium chloride 0.9% (100 ml) 100 ML 100 MG IV (08:02)
[2021-01-03 08:58] VITALS: BP 128/63; PULSE 77; RESP 18; TEMP 36.3; O2SAT 97
[2021-01-03] MEDS: DAPTOmycin 500 MG in sodium chloride 0.9% (100 ml) 100 ML 100 MG IV (09:22)
[2021-01-04] MEDS: DAPTOmycin 500 MG in sodium chloride 0.9% (100 ml) 100 ML 100 MG IV (09:08)
[2021-01-04 09:09] VITALS: BP 120/54; PULSE 80; RESP 18; TEMP 36.1; O2SAT 98
[2021-01-05 08:50] VITALS: BP 127/76; PULSE 86; RESP 18; TEMP 36.2; O2SAT 97
[2021-01-05] MEDS: DAPTOmycin 500 MG in sodium chloride 0.9% (100 ml) 100 ML 100 MG IV (09:15)
[2021-01-05 09:18] LABS: Hematocrit 42.8 % (37.0-47.0); Hemoglobin 13.2 g/dL (11.5-15.3); Mean Corpuscular HGB Conc 30.8 g/dL (30.0-36.0); Mean Corpuscular Hemoglobin 26.1 pg (28.0-34.0); Mean Corpuscular Volume 84.8 fl (81-99); Mean Platelet Volume 10.3 fL (7.4-10.4); Platelet Count 271 10^3/cmm (130-400); Red Blood Count 5.05 10^6/uL (4.1-5.3); Red Cell Distribution Width 14.9 % (12.1-15.1); White Blood Count 8.6 10^3/uL (4.0-10.0)
[2021-01-05 09:54] LABS: Absolute Eosinophils 0.3 10^3/cmm (0.0-0.7); Absolute Neutrophil 5.4 10^3/cmm (1.4-6.5); Absolute Segmented Neutrophil 5.2 10/cmm (1.6-7.1); Band Neutrophils Absolute 0.3 10^3/cmm (0.0-1.2); Eosinophils 4 %; Lymphocytes 27 %; Lymphocytes Absolute 2.4 10^3/cmm (1.2-3.4); Monocytes Absolute 0.4 10^3/cmm (0.1-0.6); Platelet Estimate Normal (Normal); Segmented Neutrophils 60 %; Total Cells Counted 100 (0-100)
[2021-01-05 09:58] LABS: Alanine Aminotransferase 11 U/L (0-33); Albumin Level 3.9 g/dL (3.5-5.2); Alkaline Phosphatase 98 IU/L (35-105); Anion Gap 13.9 (5-19); Aspartate Amino Transferase 14 U/L (0-32); Blood Urea Nitrogen 11 mg/dL (8-23); C Reactive Protein 0.9 mg/L (0.0-4.9); Calcium 9.2 mg/dL (8.5-10.5); Carbon Dioxide 26 mmol/L (22-29); Chloride 104 mmol/L (98-107); Creatine Phosphokinase 46 U/L (26-192); Globulin 2.6 g/dL (1.3-4.6); Glucose 132 mg/dL (65-115); Osmolality Calculated 291 mOsm/kg (285-295); Potassium 3.9 mmol/L (3.5-5.1); Sodium 140 mmol/L (136-145); Total Bilirubin 0.5 mg/dL (0.15-1.2); Total Protein 6.5 g/dL (6.6-8.7)
[2021-01-06] MEDS: DAPTOmycin 500 MG in sodium chloride 0.9% (100 ml) 100 ML 100 MG IV (09:22)
[2021-01-06 09:27] VITALS: BP 152/82; PULSE 84; RESP 18; TEMP 36.1; O2SAT 100
[2021-01-07 08:55] VITALS: BP 116/52; PULSE 80; RESP 18; TEMP 36.6; O2SAT 98
[2021-01-07] MEDS: DAPTOmycin 500 MG in sodium chloride 0.9% (100 ml) 100 ML 100 MG IV (09:20)
[2021-01-07 10:25] VITALS: BP 116/54; PULSE 78; RESP 18; TEMP 36.6; O2SAT 99
[2021-01-08 09:00] VITALS: BP 140/63; PULSE 80; RESP 18; TEMP 36.6; O2SAT 99
[2021-01-08] MEDS: DAPTOmycin 500 MG in sodium chloride 0.9% (100 ml) 100 ML 100 MG IV (09:04)
== END 2021-01-08 23:59 | disposition home or self-care (01) ==
LOC: GILAB 09:00
PROVIDERS: PCP Family Medicine; Visit Provider Physician Assistant Medical
DX: M46.20 Osteomyelitis of vertebra, site unspecified (principal); R78.81 Bacteremia; B95.7 Other staphylococcus as the cause of diseases classified elsewhere
CPT/HCPCS: 36592; 72110; 80053; 82550; 85007; 85025; 85027; 86140; 96365; J0878

== ENCOUNTER 2021-01-16 08:56 | Outpatient (RCR) | payer MEDICARE, OTHER, SELFPAY ==
[2021-01-09] MEDS: DAPTOmycin 500 MG in sodium chloride 0.9% (100 ml) 100 ML 100 MG IV (08:55)
[2021-01-09 09:03] VITALS: BP 120/73; PULSE 83; RESP 18; TEMP 36.7; O2SAT 99
[2021-01-10] MEDS: DAPTOmycin 500 MG in sodium chloride 0.9% (100 ml) 100 ML 100 MG IV (08:52)
[2021-01-10 08:54] VITALS: BP 143/72; PULSE 78; RESP 18; TEMP 36.4; O2SAT 97
[2021-01-11] MEDS: DAPTOmycin 500 MG in sodium chloride 0.9% (100 ml) 100 ML 100 MG IV (09:00)
[2021-01-11 09:02] VITALS: BP 120/57; PULSE 77; RESP 18; TEMP 36.1; O2SAT 97
[2021-01-12] MEDS: DAPTOmycin 500 MG in sodium chloride 0.9% (100 ml) 100 ML 150 MG IV (08:54)
[2021-01-12 08:58] VITALS: BP 121/54; PULSE 84; RESP 18; TEMP 36.3; O2SAT 99
--- NOTE | 2021-01-12 09:20 | PC.NURSE ---
PICC dressing changed to left upper extremity per protocol. Labs drawn and faxed as requested.
[2021-01-12 09:25] LABS: Basophils # 0.1 10^3/uL (0.0-0.1); Basophils % 1.3 %; Eosinophils # 0.4 10^3/uL (0.0-0.8); Eosinophils % 4.9 %; Hematocrit 43.9 % (37.0-47.0); Hemoglobin 13.4 g/dL (11.5-15.3); Lymphocytes # 2.2 10^3/uL (0.8-4.8); Lymphocytes % 27.3 %; Mean Corpuscular HGB Conc 30.5 g/dL (30.0-36.0); Mean Corpuscular Hemoglobin 26.1 pg (28.0-34.0); Mean Corpuscular Volume 85.6 fl (81-99); Mean Platelet Volume 10.5 fL (7.4-10.4); Monocytes # 0.7 10^3/uL (0.2-0.9); Monocytes % 8.6 %; Neutrophils # 4.58 10^3/uL (1.8-7.7); Neutrophils % 57.3 %; Nucleated Red Blood Cells % 0 %; Platelet Count 268 10^3/cmm (130-400); Red Blood Count 5.13 10^6/uL (4.1-5.3); Red Cell Distribution Width 15.4 % (12.1-15.1)
[2021-01-12 09:35] LABS: Alanine Aminotransferase 11 U/L (0-33); Albumin Level 3.8 g/dL (3.5-5.2); Alkaline Phosphatase 97 IU/L (35-105); Anion Gap 16.3 (5-19); Aspartate Amino Transferase 18 U/L (0-32); Blood Urea Nitrogen 12 mg/dL (8-23); C Reactive Protein 0.7 mg/L (0.0-4.9); Calcium 9.1 mg/dL (8.5-10.5); Carbon Dioxide 25 mmol/L (22-29); Chloride 104 mmol/L (98-107); Creatine Phosphokinase 48 U/L (26-192); Globulin 2.5 g/dL (1.3-4.6); Glucose 117 mg/dL (65-115); Osmolality Calculated 293 mOsm/kg (285-295); Potassium 4.3 mmol/L (3.5-5.1); Sodium 141 mmol/L (136-145); Total Bilirubin 0.6 mg/dL (0.15-1.2); Total Protein 6.3 g/dL (6.6-8.7)
[2021-01-13 08:40] VITALS: BP 127/62; PULSE 76; RESP 18; TEMP 36.1; O2SAT 99
[2021-01-13] MEDS: DAPTOmycin 500 MG in sodium chloride 0.9% (100 ml) 100 ML 100 MG IV (09:13)
[2021-01-14] MEDS: DAPTOmycin 500 MG in sodium chloride 0.9% (100 ml) 100 ML 100 MG IV (06:55)
[2021-01-14 07:04] VITALS: BP 141/73; PULSE 83; RESP 18; TEMP 36.4; O2SAT 99
[2021-01-15 08:45] VITALS: BP 144/68; PULSE 78; RESP 18; TEMP 36.9; O2SAT 98
[2021-01-15] MEDS: DAPTOmycin 500 MG in sodium chloride 0.9% (100 ml) 100 ML 100 MG IV (08:50)
[2021-01-16 09:00] VITALS: BP 135/59; PULSE 76; RESP 18; TEMP 36.1; O2SAT 99
[2021-01-16] MEDS: DAPTOmycin 500 MG in sodium chloride 0.9% (100 ml) 100 ML 100 MG IV (09:01)
--- NOTE | 2021-01-16 10:15 | PC.NURSE ---
PICC line to left upper arm dc'd as ordered following last antibiotic infusion. Catheter intact upon removal. Site clear. Pressure held for approx 5 min. Pt educated on signs and symptoms of infection. Instructed to return to ER for SOB or chest pain.
== END 2021-02-07 23:59 | disposition home or self-care (01) ==
LOC: GILAB 08:56
PROVIDERS: PCP Family Medicine; Visit Provider Physician Assistant Medical
DX: R78.81 Bacteremia (principal); B95.7 Other staphylococcus as the cause of diseases classified elsewhere; M46.24 Osteomyelitis of vertebra, thoracic region; M46.26 Osteomyelitis of vertebra, lumbar region
CPT/HCPCS: 80053; 82550; 85025; 86140; 96365; J0878

== ENCOUNTER 2021-01-19 18:25 | Inpatient (IN) | payer MEDICARE, OTHER, SELFPAY ==
[2021-01-19] VITALS (20 sets, daily range): BP systolic 159–213; BP diastolic 86–115; PULSE 80–88; RESP 16–29; TEMP 36.6; O2SAT 90–100; BMI 25.7
--- NOTE | 2021-01-19 18:29 | ECG_ITS ---
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 Measurements Intervals [place] Rate: 102 P: 86 [place]: 162 QRS: 63 QRSD: 74 T: 136 QT: 333 QTc: 435 Interpretive Statements SINUS TACHYCARDIA NONSPECIFIC T-WAVE ABNORMALITY Compared to ECG 12/18/2020 15:17:51 T-wave abnormality now present Sinus rhythm no longer present Left bundle-branch block no longer present Electronically Signed On 01-19-2021 22:47:55 CANVAS GOODS MAKER by Gerri Sal M.D. [id number] f
--- NOTE | 2021-01-19 19:34 | XRR_ITS ---
PROCEDURE INFORMATION: Exam: XR Chest Exam date and time: 01/19/2021 7:34 PM Age: 75 years old Clinical indication: Chest pressure; Patient HX: Chest pain; Additional info: Cp TECHNIQUE: Imaging protocol: XR of the chest. Views: 1 view. COMPARISON: CR (CHEST, ) 12/18/2020 5:57 PM FINDINGS: Lungs: Unremarkable. No consolidation. Pleural spaces: Unremarkable. No pleural effusion. No pneumothorax. Heart/Mediastinum: Unremarkable. No cardiomegaly. Bones/joints: Unremarkable. XR/XR chest 1V portable [id number] IMPRESSION: No acute findings. Radiation Dose CTDIVOL = (mGy): DLP = (mGy-cm)
--- NOTE | 2021-01-19 19:34 | ECG_ITS ---
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 Measurements Intervals [place] Rate: 86 P: 26 [place]: 154 QRS: 17 QRSD: 89 T: 108 QT: 421 QTc: 504 Interpretive Statements SINUS RHYTHM POSSIBLE INFERIOR MYOCARDIAL INFARCTION , PROBABLY OLD [30 ms Q WAVE IN II/aVF] Normal T wave, suggestive of septal hypertrophy Compared to ECG 01/19/2021 18:44:47 Myocardial infarct finding now present Sinus tachycardia no longer present Electronically Signed On 01-19-2021 22:52:17 POWER GENERATION EQUIPMENT REPAIRER by Gerri Sal M.D. [id number] f
--- NOTE | 2021-01-19 20:27 | CTR_ITS ---
PROCEDURE INFORMATION: Exam: CT Abdomen And Pelvis With Contrast Exam date and time: 01/19/2021 8:27 PM Age: 75 years old Clinical indication: Abdominal pain; Prior surgery; Surgery type: Appy, gb, hernia, bowel, colostomy; Patient HX: HX of bowel obstruction; Additional info: Abd pain TECHNIQUE: Imaging protocol: Computed tomography of the abdomen and pelvis with contrast. Radiation optimization: All CT scans at this facility use at least one of these dose optimization techniques: automated exposure control; mA and/or kV adjustment per patient size (includes targeted exams where dose is matched to clinical indication); or iterative reconstruction. Contrast material: OMNI 350; Contrast volume: 95 ml; Contrast route: INTRAVENOUS (IV); COMPARISON: CT abdomen pelvis w con* [id number] 12/17/2020 3:45 PM RADIATION DOSE METRICS: Total DLP (mGy-cm): 1288.78 FINDINGS: Liver: Redemonstrated pneumobilia, likely secondary to a sphincterotomy. No mass. Gallbladder and bile ducts: Cholecystectomy. Pancreas: Normal. No ductal dilation. Spleen: Punctate calcified granulomas. No splenomegaly. Adrenal glands: Normal. No mass. Kidneys and ureters: Subcentimeter cysts noted in both kidneys. No hydronephrosis. Stomach and bowel: Sequela of prior bowel resection. Dilated loops of small bowel in the lower abdomen and pelvis measuring up to 3.5 cm in transverse dimension. Appendix: No evidence of appendicitis. Intraperitoneal space: No free air. No significant fluid collection. Vasculature: No abdominal aortic aneurysm. Lymph nodes: Unremarkable. No enlarged lymph nodes. Urinary bladder: Unremarkable as visualized. Reproductive: Hysterectomy. Bones/joints: No acute fracture. Soft tissues: Unremarkable. CT/CT abdomen pelvis w con* [id number] IMPRESSION: Dilated loops of small bowel within the lower abdomen and pelvis suspicious for bowel obstruction. COMMENTS: Consistent with the [place] [employer]'s Incidental Findings Committee white paper (J Am Patricia Radiol 2018): Any incidental renal lesion less than 1 cm or classified as too small to characterize, or any incidental cystic renal lesion characterized as simple-appearing, is likely benign. No follow-up imaging is recommended for these lesions per consensus recommendations based on imaging criteria. Radiation Dose CTDIVOL = (mGy): DLP = 1288.78 (mGy-cm)
--- NOTE | 2021-01-19 20:33 | W.ED.ABDPA2 ---
HPI - Abdominal Pain General: Chief Complaint: Abdominal Pain Stated Complaint: Sob, pressure under breasts Time Seen by Provider: 01/19/21 20:24 Source: patient Mode of arrival: ambulatory Limitations: no limitations History of Present Illness: HPI narrative: 75-year-old female who states she has had multiple bowel obstructions and surgeries in the past states that throughout the day she had increasing abdominal pain is currently in severe pain she rates a 10 out of 10 states this feels like her previous bowel obstruction she had nausea no vomiting she is had a bowel movement today. Pain is worse with movement improved with rest. Associated Symptoms: Reports nausea; Denies chills, dysuria and fever(s) Related Data: Date of Last Menstrual Period: 06/02/20 Review of Systems Const: Denies: fever(s), chills, body aches or change in appetite Eyes: Denies: blurry vision or eye discomfort ENMT: Denies: throat pain or dental pain Card: Denies: chest pain Resp: Denies: dyspnea GI: Reports: abdominal pain and nausea : Denies: dysuria Musc: Denies: neck pain or back pain Skin/Breast: Denies: rash Neuro: Denies: headache(s) Psych: Denies: depression [place]/Lymph: Denies: easy bruising All/Imm: Denies: urticaria PFSH ED PFSH: Medical History Abdominal pain Adhesion of mesentery Atrial fibrillation Chest pain Colonic diverticular abscess Congestive heart failure Coronary disease Diabetes Diet controlled Discitis, unspecified, lumbar region DM II (diabetes mellitus, type II), controlled GUILLAUME (generalized anxiety disorder) GERD (gastroesophageal reflux disease) Gout Hypertension Intermittent small bowel obstruction Migraine MRSA bacteremia Myocardial infarction Myopericarditis Nausea & vomiting Necrotizing fasciitis Non-ST elevation IA (NSTEMI) Osteoarthritis Pain of both breasts Pericarditis Scleroderma Small bowel obstruction Surgical History H/O colectomy H/O hernia repair History of cholecystectomy S/P dilatation of esophageal stricture S/P ANH-BSO Family History Mother Congestive heart failure Social History Smoking and tobacco status: former smoker Alcohol intake: never Female Reproductive History: Date of last menstrual period: 06/02/20 Physical Exam Const: COMMON NORMALS: no acute distress, patient oriented x3 and healthy appearing HENMT: COMMON NORMALS: normocephalic and atraumatic HEAD & SCALP: normocephalic and atraumatic Eye: COMMON NORMALS: Equal, round and reactive pupils present and EOMs intact bilaterally PUPIL: Yes Equal, round and reactive pupils present Neck/C-Spine: COMMON NORMALS: full ROM and supple Chest: COMMONS NORMALS: normal inspection of the chest and normal palpation of entire chest wall Resp: COMMON NORMALS: normal respiratory effort, No retractions, No use of accessory muscles and clear to auscultation bilaterally AUSCULTATION: clear to auscultation bilaterally Cardio: COMMON NORMALS: regular rate, regular rhythm and No murmurs present (Cardio) RATE: regular rate RHYTHM: regular rhythm GI: COMMON NORMALS: Normal to inspection, nondistended, normoactive bowel sounds present, Soft to palpation and no masses PALPATION: Yes Soft to palpation OTHER: diffuse tenderness Extremity: COMMON NORMALS: normal to inspection and full ROM Neuro: COMMON NORMALS: patient oriented x3, moves all extremities and no focal motor deficits Psych: COMMON NORMALS: mental status grossly normal, Normal thought process present and cooperative THOUGHT PROCESS: Normal thought process present Skin: COMMON NORMALS: no rashes or lesions noted and no wounds GENERAL SKIN EXAM: no rashes or lesions noted Course Vital Signs: Vital signs: Vital Signs Temperature 97.9 F 01/19/21 20:16 Pulse Rate 87 01/19/21 20:16 Respiratory Rate 20 H 01/19/21 20:16 Blood Pressure 192/109 01/19/21 20:16 Pulse Oximetry 100 01/19/21 20:16 MDM - Abdominal Pain MDM Narrative: Medical decision making narrative: Patient presents here with small bowel obstruction pain is much improved here NG tube start I spoke to hospitalist surgeon patient is admitted this time. Lab Data: Labs: Lab Results 01/19/21 01/19/21 01/19/21 20:56 20:56 20:56 WBC 14.1 10^3/uL H 10 ^3/uL (4.0-10.0) RBC 6.00 10^6/uL H 10 ^6/uL (4.1-5.3) Hgb 15.7 g/dL H g/dL (11.5-15.3) Hct 48.7 % H % (37.0-47.0) MCV 81.2 fl fl (81-99) MCH 26.2 pg L pg (28.0-34.0) MCHC 32.2 g/dL g/dL (30.0-36.0) RDW 15.9 % H % (12.1-15.1) Plt Count 299 10^3/cmm 10^3 /cmm (130-400) MPV 10.8 fL H fL (7.4-10.4) Neut % (Auto) 63.3 % % Lymph % (Auto) 26.0 % % [place] % (Auto) 7.4 % % Eos % (Auto) 2.4 % % Baso % (Auto) 0.5 % % Neut # (Auto) 8.90 10^3/uL H 10 ^3/uL (1.8-7.7) Lymph # (Auto) 3.7 10^3/uL 10^3/ uL (0.8-4.8) [place] # (Auto) 1.0 10^3/uL H 10^ 3/uL (0.2-0.9) Eos # (Auto) 0.3 10^3/uL 10^3/ uL (0.0-0.8) Baso # (Auto) 0.1 10^3/uL 10^3/ uL (0.0-0.1) Nucleated RBC % (a uto) 0 % % Nucleated RBCs # 0.0 /100WBC /100W BC PT INR Sodium 139 mmol/L mmol/L (136-145) Potassium 3.7 mmol/L mmol/L (3.5-5.1) Chloride 100 mmol/L mmol/L (98-107) Carbon Dioxide 23 mmol/L mmol/L (22-29) Anion Gap 19.7 H (5-19) BUN 14 mg/dL mg/dL (8-23) Creatinine 0.8 mg/dL mg/dL (0.5-0.9) GFR Calculation Not Reportable Glucose 124 mg/dL H mg/dL (65-115) Calculated Osmolal ity 290 mOsm/kg mOsm/ kg (285-295) Lactate Calcium 10.0 mg/dL mg/dL (8.5-10.5) Total Bilirubin 0.9 mg/dL mg/dL (0.15-1.2) AST 20 U/L U/L (0-32) ALT 14 U/L U/L (0-33) Alkaline Phosphata se 117 IU/L H IU/L (35-105) Troponin T Baselin e 28 ng/L H ng/L (0-10) Total Protein 7.7 g/dL g/dL (6.6-8.7) Albumin 4.4 g/dL g/dL (3.5-5.2) Globulin 3.3 g/dL g/dL (1.3-4.6) 01/19/21 01/19/21 20:56 20:56 WBC RBC Hgb Hct MCV MCH MCHC RDW Plt Count MPV Neut % (Auto) Lymph % (Auto) [place] % (Auto) Eos % (Auto) Baso % (Auto) Neut # (Auto) Lymph # (Auto) [place] # (Auto) Eos # (Auto) Baso # (Auto) Nucleated RBC % (a uto) Nucleated RBCs # PT 15.10 SECONDS H S ECONDS (12.1-14.9) INR 1.16 (0.8-1.2) Sodium Potassium Chloride Carbon Dioxide Anion Gap BUN Creatinine GFR Calculation Glucose Calculated Osmolal ity Lactate 1.5 mmol/L mmol/L (0.5-2.2) Calcium Total Bilirubin AST ALT Alkaline Phosphata se Troponin T Baselin e Total Protein Albumin Globulin Imaging Data ^: CT Abd/Pel: Attestation: I personally reviewed and interpreted this imaging study as follows: Radiologist's impression: [address] [address] [address] Scan Report Signed Patient: Anju Duffy Unit #: [id number] : 1945 Age/Sex: 75 / F ADM Date: 01/19/21 Loc: ER Room/Bed: Attending Dr: Ordering Provider/Ordering MD: Austen Martinez MD Date of Service: 01/19/21 Procedure(s): CT abdomen pelvis w con* [id number] Accession Number(s): [id number] Report Number: [id number] PROCEDURE INFORMATION: Exam: CT Abdomen And Pelvis With Contrast Exam date and time: 01/19/2021 8:27 PM Age: 75 years old Clinical indication: Abdominal pain; Prior surgery; Surgery type: Appy, gb, hernia, bowel, colostomy; Patient HX: HX of bowel obstruction; Additional info: Abd pain TECHNIQUE: Imaging protocol: Computed tomography of the abdomen and pelvis with contrast. Radiation optimization: All CT scans at this facility use at least one of these dose optimization techniques: automated exposure control; mA and/or kV adjustment per patient size (includes targeted exams where dose is matched to clinical indication); or iterative reconstruction. Contrast material: OMNI 350; Contrast volume: 95 ml; Contrast route: INTRAVENOUS (IV); COMPARISON: CT abdomen pelvis w con* [id number] 12/17/2020 3:45 PM RADIATION DOSE METRICS: Total DLP (mGy-cm): 1288.78 FINDINGS: Liver: Redemonstrated pneumobilia, likely secondary to a sphincterotomy. No mass. Gallbladder and bile ducts: Cholecystectomy. Pancreas: Normal. No ductal dilation. Spleen: Punctate calcified granulomas. No splenomegaly. Adrenal glands: Normal. No mass. Kidneys and ureters: Subcentimeter cysts noted in both kidneys. No hydronephrosis. Stomach and bowel: Sequela of prior bowel resection. Dilated loops of small bowel in the lower abdomen and pelvis measuring up to 3.5 cm in transverse dimension. Appendix: No evidence of appendicitis. Intraperitoneal space: No free air. No significant fluid collection. Vasculature: No abdominal aortic aneurysm. Lymph nodes: Unremarkable. No enlarged lymph nodes. Urinary bladder: Unremarkable as visualized. Reproductive: Hysterectomy. Bones/joints: No acute fracture. Soft tissues: Unremarkable. CT/CT abdomen pelvis w con* [id number] IMPRESSION: Dilated loops of small bowel within the lower abdomen and pelvis suspicious for bowel obstruction. COMMENTS: Consistent with the [place] [employer]'s Incidental Findings Committee white paper (J Am Patricia Radiol 2018): Any incidental renal lesion less than 1 cm or classified as too small to characterize, or any incidental cystic renal lesion characterized as simple-appearing, is likely benign. No follow-up imaging is recommended for these lesions per consensus recommendations based on imaging criteria. Radiation Dose CTDIVOL = (mGy): DLP = 1288.78 (mGy-cm) Dictated By: Chet Jones DO Signed By: Chet Jones DO Signed Date/Time: 01/19/212138 DD/ 26 Discharge Plan Discharge Patient Disposition: Admitted As Inpatient Clinical Impression: Small bowel obstruction Condition: Stable Coding Level of Care Code ED Nuclear Control Operator for Chg Fwd Exam Comprehensive
[2021-01-19 21:05] LABS: Basophils # 0.1 10^3/uL (0.0-0.1); Basophils % 0.5 %; Eosinophils # 0.3 10^3/uL (0.0-0.8); Eosinophils % 2.4 %; Hematocrit 48.7 % (37.0-47.0); Hemoglobin 15.7 g/dL (11.5-15.3); Lymphocytes # 3.7 10^3/uL (0.8-4.8); Mean Corpuscular HGB Conc 32.2 g/dL (30.0-36.0); Mean Corpuscular Hemoglobin 26.2 pg (28.0-34.0); Mean Corpuscular Volume 81.2 fl (81-99); Mean Platelet Volume 10.8 fL (7.4-10.4); Monocytes % 7.4 %; Neutrophils % 63.3 %; Nucleated Red Blood Cells % 0 %; Platelet Count 299 10^3/cmm (130-400); Red Cell Distribution Width 15.9 % (12.1-15.1); White Blood Count 14.1 10^3/uL (4.0-10.0)
[2021-01-19] MEDS: HYDROmorphone 1 mg/mL INJ 1 mL IVP (21:17)
[2021-01-19] MEDS: ondansetron 2 mg/ML SDV 2 mL 4 MG IVP (21:17)
[2021-01-19 21:20] LABS: INR 1.16 (0.8-1.2)
[2021-01-19] MEDS: iohexol 350 mg/mL 100 mL Btl IV (21:25)
[2021-01-19 21:31] LABS: Lactate (Lactic Acid level) 1.5 mmol/L (0.5-2.2)
[2021-01-19 21:32] LABS: Alanine Aminotransferase 14 U/L (0-33); Albumin Level 4.4 g/dL (3.5-5.2); Alkaline Phosphatase 117 IU/L (35-105); Anion Gap 19.7 (5-19); Aspartate Amino Transferase 20 U/L (0-32); Blood Urea Nitrogen 14 mg/dL (8-23); Carbon Dioxide 23 mmol/L (22-29); Chloride 100 mmol/L (98-107); Globulin 3.3 g/dL (1.3-4.6); Glucose 124 mg/dL (65-115); Osmolality Calculated 290 mOsm/kg (285-295); Potassium 3.7 mmol/L (3.5-5.1); Sodium 139 mmol/L (136-145); Total Bilirubin 0.9 mg/dL (0.15-1.2); Total Protein 7.7 g/dL (6.6-8.7)
[2021-01-19 21:33] LABS: Troponin(5th) Baseline 28 ng/L (0-10)
--- NOTE | 2021-01-19 21:34 | ECG_ITS ---
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 Measurements Intervals [place] Rate: 85 P: 39 [place]: 168 QRS: 32 QRSD: 81 T: 108 QT: 420 QTc: 501 Interpretive Statements SINUS RHYTHM MARKED T-WAVE ABNORMALITY, CONSIDER ANTERIOR ISCHEMIA [-0.5+ mV T-WAVE IN V3/V4] Compared to ECG 01/19/2021 22:37:19 T-wave abnormality now present Possible ischemia now present Myocardial infarct finding no longer present Electronically Signed On 01-20-2021 19:53:03 OPERATIONAL RISK ANALYST by Ayush Johnson M.D. [id number] f
[2021-01-19] MEDS: LORazepam 2 mg/mL INJ 1 mL 1 MG IVP (21:45)
--- NOTE | 2021-01-19 22:10 | XRR_ITS ---
PROCEDURE INFORMATION: Exam: XR Chest Exam date and time: 01/19/2021 10:10 PM Age: 75 years old Clinical indication: Device placement; Ng tube; Additional info: Ng tube placement TECHNIQUE: Imaging protocol: XR of the chest. Views: 1 view. COMPARISON: CR (CHEST, ) 01/19/2021 8:33 PM FINDINGS: Tubes, catheters and devices: Interval placement of NG tube which terminates in the stomach. Lungs: No consolidation. Pleural spaces: No pleural effusion. No pneumothorax. Heart/Mediastinum: No cardiomegaly. Bones/joints: Unremarkable. XR/XR chest 1V portable [id number] IMPRESSION: NG tube in proper positioning within the stomach. Radiation Dose CTDIVOL = (mGy): DLP = (mGy-cm)
--- NOTE | 2021-01-19 22:38 | P.HP_ITS ---
Providers/Chief Complaint Primary Care Provider: Baldomero Britt MD Chief Complaint: Sob, pressure under breasts History of Present Illness Anju Duffy is a 75 year old female with past medical history of prior abdominal surgeries and prior 5 episodes of small bowel obstruction requiring 2 surgeries in the past who is presenting to emergency room with complaints of abdominal pain and vomiting. This started earlier this afternoon. She suspects that it was due to her eating uncooked cauliflower. Currently she feels better. She reports having bowel movements earlier today. No diarrhea or constipation. No rectal blood. She denies fever or chills. Denies chest pain, shortness of breath, cough, palpitations. CT of the abdomen revealed small bowel obstruction. Review of Systems General: Reports: 10 or more systems reviewed and unremarkable except in HPI and below Medications/Allergies Home Medications Medication Instructions Recorded Confirmed Last Taken Type sumatriptan succinate 100 mg tablet See Rx Instructions PO .COMPLEX PRN 09/30/19 01/11/21 01/10/21 History ondansetron HCl 4 mg tablet 4 mg PO Q12H PRN #60 tab 11/04/19 01/11/21 01/10/21 Rx buspirone 5 mg PO BID PRN 05/23/20 01/11/21 01/10/21 History docusate sodium 50 mg PO BID 12/15/20 01/11/21 01/10/21 History daptomycin 500 mg IV DAILY MDD SEE PHARMACY 12/17/20 01/11/21 01/10/21 History COMMENT lisinopril 5 mg tablet 5 mg PO BID #180 tab 01/05/21 01/11/21 01/10/21 Rx apixaban 5 mg tablet 5 mg PO BID 90 Days #180 tab 01/09/21 01/11/21 01/10/21 Rx lactulose 20 gram/30 mL oral 15 g PO Q12H 30 Days #1500 ml 01/17/21 Unknown Rx solution carvedilol 12.5 mg tablet 12.5 mg PO BID #180 tab 01/19/21 Unknown Rx Allergies Allergy/AdvReac Type Severity Reaction Status Date / Time Latex, Natural Rubber Allergy ALGY-Rash Verified 01/09/21 12:56 PFSH Acute PFSH: Medical History Abdominal pain Adhesion of mesentery Atrial fibrillation Chest pain Colonic diverticular abscess Congestive heart failure Coronary disease Diabetes Diet controlled Discitis, unspecified, lumbar region DM II (diabetes mellitus, type II), controlled GUILLAUME (generalized anxiety disorder) GERD (gastroesophageal reflux disease) Gout Hypertension Intermittent small bowel obstruction Migraine MRSA bacteremia Myocardial infarction Myopericarditis Nausea & vomiting Necrotizing fasciitis Non-ST elevation [place] (NSTEMI) Osteoarthritis Pain of both breasts Pericarditis Scleroderma Small bowel obstruction Surgical History H/O colectomy H/O hernia repair History of cholecystectomy S/P dilatation of esophageal stricture S/P ANH-BSO Family History Mother Congestive heart failure Social History Smoking and tobacco status: former smoker Alcohol intake: never Female Reproductive History: Date of last menstrual period: 06/02/20 Vitals/I&O/Wt Last Vital Signs Temp 97.9 F 01/19/21 20:16 Pulse 87 01/19/21 20:16 Resp 20 H 01/19/21 20:16 BP 174/106 01/19/21 22:30 Pulse Ox 91 01/19/21 22:30 Weight last 48 hrs Weight 63.957 kg Physical Exam Narrative: EXAM NARRATIVE: Awake alert oriented. No acute distress. Mood and affect are appropriate. Responses are adequate. Skin is warm and dry. Dry mucous membranes Eyes PERRL, extraocular muscles are intact Neck supple. No JVD Lungs are clear to auscultation bilaterally. No wheeze or crackles Heart S1, S2, regular Abdomen is soft, mildly tender, no rebound, bowel sounds are present. Distended. Extremities. Bilateral lower extremity edema. No cyanosis no calf tenderness bilaterally Neuro examination is nonfocal. Normal speech. Data : 01/19/21 20:56 01/19/21 20:56 Other Labs: Laboratory Results WBC 14.1 10^3/uL (4.0-10.0) H 01/19/21 20:56 RBC 6.00 10^6/uL (4.1-5.3) H 01/19/21 20:56 Hgb 15.7 g/dL (11.5-15.3) H 01/19/21 20:56 Hct 48.7 % (37.0-47.0) H 01/19/21 20:56 MCV 81.2 fl (81-99) 01/19/21 20:56 MCH 26.2 pg (28.0-34.0) L 01/19/21 20:56 MCHC 32.2 g/dL (30.0-36.0) 01/19/21 20:56 RDW 15.9 % (12.1-15.1) H 01/19/21 20:56 Plt Count 299 10^3/cmm (130-400) 01/19/21 20:56 MPV 10.8 fL (7.4-10.4) H 01/19/21 20:56 Neut % (Auto) 63.3 % 01/19/21 20:56 Lymph % (Auto) 26.0 % 01/19/21 20:56 Teller % (Auto) 7.4 % 01/19/21 20:56 Eos % (Auto) 2.4 % 01/19/21 20:56 Baso % (Auto) 0.5 % 01/19/21 20:56 Neut # (Auto) 8.90 10^3/uL (1.8-7.7) H 01/19/21 20:56 Lymph # (Auto) 3.7 10^3/uL (0.8-4.8) 01/19/21 20:56 Teller # (Auto) 1.0 10^3/uL (0.2-0.9) H 01/19/21 20:56 Eos # (Auto) 0.3 10^3/uL (0.0-0.8) 01/19/21 20:56 Baso # (Auto) 0.1 10^3/uL (0.0-0.1) 01/19/21 20:56 Nucleated RBC % (auto) 0 % 01/19/21 20:56 Nucleated RBCs # 0.0 /100WBC 01/19/21 20:56 PT 15.10 SECONDS (12.1-14.9) H 01/19/21 20:56 INR 1.16 (0.8-1.2) 01/19/21 20:56 Sodium 139 mmol/L (136-145) 01/19/21 20:56 Potassium 3.7 mmol/L (3.5-5.1) 01/19/21 20:56 Chloride 100 mmol/L (98-107) 01/19/21 20:56 Carbon Dioxide 23 mmol/L (22-29) 01/19/21 20:56 Anion Gap 19.7 (5-19) H 01/19/21 20:56 BUN 14 mg/dL (8-23) 01/19/21 20:56 Creatinine 0.8 mg/dL (0.5-0.9) 01/19/21 20:56 GFR Calculation Not Reportable 01/19/21 20:56 Glucose 124 mg/dL (65-115) H 01/19/21 20:56 Calculated Osmolality 290 mOsm/kg (285-295) 01/19/21 20:56 Lactate 1.5 mmol/L (0.5-2.2) 01/19/21 20:56 Calcium 10.0 mg/dL (8.5-10.5) 01/19/21 20:56 Total Bilirubin 0.9 mg/dL (0.15-1.2) 01/19/21 20:56 AST 20 U/L (0-32) 01/19/21 20:56 ALT 14 U/L (0-33) 01/19/21 20:56 Alkaline Phosphatase 117 IU/L (35-105) H 01/19/21 20:56 Troponin T Baseline 28 ng/L (0-10) H 01/19/21 20:56 Total Protein 7.7 g/dL (6.6-8.7) 01/19/21 20:56 Albumin 4.4 g/dL (3.5-5.2) 01/19/21 20:56 Globulin 3.3 g/dL (1.3-4.6) 01/19/21 20:56 Impressions Abdomen/Pelvis CT 01/19/21 20:27 IMPRESSION: Dilated loops of small bowel within the lower abdomen and pelvis suspicious for bowel obstruction. COMMENTS: Consistent with the [place] [employer]'s Incidental Findings Committee white paper (J Am Patricia Radiol 2018): Any incidental renal lesion less than 1 cm or classified as too small to characterize, or any incidental cystic renal lesion characterized as simple-appearing, is likely benign. No follow-up imaging is recommended for these lesions per consensus recommendations based on imaging criteria. Radiation Dose CTDIVOL = (mGy): DLP = 1288.78 (mGy-cm) Chest X-Ray 01/19/21 22:10 IMPRESSION: NG tube in proper positioning within the stomach. Radiation Dose CTDIVOL = (mGy): DLP = (mGy-cm) A&P Assessment and plan (1) Small bowel obstruction: Status: Acute (2) Congestive heart failure: Status: Acute (3) Atrial fibrillation: Status: Acute Qualifiers: Atrial fibrillation type: paroxysmal Qualified Code(s): I48.0 - Paroxysmal atrial fibrillation (4) Hypertension: Status: Acute Qualifiers: Hypertension type: essential hypertension Qualified Code(s): I10 - Essential (primary) hypertension (5) Diabetes: Status: Acute (6) GERD (gastroesophageal reflux disease): Status: Acute Qualifiers: Esophagitis presence: esophagitis presence not specified Qualified Code(s): K21.9 - Gastro-esophageal reflux disease without esophagitis Additional A&P Information 75 year old female with past medical history of prior abdominal surgeries and prior 5 episodes of small bowel obstruction requiring 2 surgeries in the past who is presenting to emergency room with complaints of abdominal pain and vo miting. Recurrent small bowel obstruction. NG tube is placed. We will continue bowel rest, IV fluids. Will monitor and replace electrolytes as needed. Pain medications as needed. GI prophylaxis. Famotidine IV. CHF. Currently stable. Will need to be careful with IV fluids. We will continue close monitoring. Hypertension, uncontrolled. Will order as needed labetalol and as needed hydral azine. History of A. fib. Currently in sinus. Will order IV metoprolol since she cannot take her p.o. medication. DVT prophylaxis. We will start her on Lovenox. She cannot take her apixaban now CODE STATUS. She wants to be full code. The plan of care was discussed with the patient and her . They verbalized understanding and agreement. Attestations Medical Necessity Statement*: On my assessment of patient's condition, diagnosis and plan of care it is expected that the patient will spend more than 2 midnights in the hospital. Coding Level of Care Code Acute Central Supply Manager for [facility] Diagnoses Small bowel obstruction K56.609 Congestive heart failure I50.9 Atrial fibrillation I48.0 Atrial fibrillation type: paroxysmal Hypertension I10 Hypertension type: essential hypertension Diabetes E11.9 GERD (gastroesophageal reflux disease) K21.9 Esophagitis presence: esophagitis presence not specified
[2021-01-19] MEDS: metoprolol tartrate 1 mg/1 mL SDV 5 mL 2.5 MG IVP (23:03)
[2021-01-19 23:30] LABS: Troponin 5 2HR 45.62 ng/L (0-10)
[2021-01-19 23:37] LABS: Troponin 5 2HR Delta 17.62 ABS# (0-10)
[2021-01-19] MEDS: labetalol 5 mg/mL SDV 20mL 10 MG IVP (23:50)
[2021-01-20] VITALS (91 sets, daily range): BP systolic 143–229; BP diastolic 77–134; PULSE 76–101; RESP 15–29; TEMP 36.9; O2SAT 86–99
[2021-01-20] MEDS: famotidine 20 mg/2 mL INJ IVP ×3 (00:47→23:28)
[2021-01-20] MEDS: lactated ringers 1,000 ML 75 ML IV ×3 (00:47→18:31)
--- NOTE | 2021-01-20 01:34 | ECG_ITS ---
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 Measurements Intervals [place] Rate: 79 P: 13 CA: 162 QRS: 51 QRSD: 86 T: 102 QT: 417 QTc: 481 Interpretive Statements SINUS RHYTHM ST DEVIATION AND MARKED T-WAVE ABNORMALITY, CONSIDER ANTERIOR ISCHEMIA [-0.5+ mV T-WAVE IN V3/V4] Compared to ECG 01/19/2021 22:44:27 No significant changes Electronically Signed On 01-20-2021 19:52:35 PRECISION LENS TECHNICIAN by Ayush Johnson M.D. [id number]
[2021-01-20] MEDS: labetalol 5 mg/mL SDV 20mL 20 MG IVP (01:36)
[2021-01-20] MEDS: morphine 4 mg/mL SDV 1 mL 2 MG IVP ×5 (01:51→19:04)
[2021-01-20] MEDS: ondansetron 2 mg/ML SDV 2 mL 4 MG IVP ×2 (01:51→11:34)
--- NOTE | 2021-01-20 03:03 | PC.NURSE ---
Pt. resting quietly. Pt. blood pressure 160/82 after pain and nausea medication given.
[2021-01-20 03:26] LABS: Basophils # 0.1 10^3/uL (0.0-0.1); Basophils % 0.4 %; Eosinophils # 0.1 10^3/uL (0.0-0.8); Eosinophils % 0.5 %; Hemoglobin 14.6 g/dL (11.5-15.3); Lymphocytes # 1.5 10^3/uL (0.8-4.8); Lymphocytes % 13.4 %; Mean Corpuscular HGB Conc 31.7 g/dL (30.0-36.0); Mean Corpuscular Hemoglobin 26.4 pg (28.0-34.0); Mean Corpuscular Volume 83.3 fl (81-99); Mean Platelet Volume 10.5 fL (7.4-10.4); Monocytes # 0.8 10^3/uL (0.2-0.9); Monocytes % 6.7 %; Neutrophils # 8.79 10^3/uL (1.8-7.7); Neutrophils % 78.6 %; Nucleated Red Blood Cells % 0 %; Platelet Count 242 10^3/cmm (130-400); Red Blood Count 5.52 10^6/uL (4.1-5.3); Red Cell Distribution Width 15.9 % (12.1-15.1); White Blood Count 11.2 10^3/uL (4.0-10.0)
[2021-01-20 03:47] LABS: Troponin 5 6HR 60.67 ng/L (0-10)
[2021-01-20 03:49] LABS: Blood Urea Nitrogen 12 mg/dL (8-23); Calcium 9.5 mg/dL (8.5-10.5); Carbon Dioxide 24 mmol/L (22-29); Chloride 102 mmol/L (98-107); Glucose 175 mg/dL (65-115); Magnesium 1.7 mg/dL (1.7-2.3); Osmolality Calculated 292 mOsm/kg (285-295); Phosphorus 3.8 mg/dL (2.5-4.5); Sodium 139 mmol/L (136-145)
[2021-01-20 03:58] LABS: Troponin 5 6HR Delta 32.67 ng/L (0-12)
[2021-01-20] MEDS: enoxaparin 80 mg/0.8 mL Syringe 60 MG SUBCUT (04:35)
--- NOTE | 2021-01-20 04:49 | PC.NURSE ---
Pt. states that she is having left jaw and ear pain . Pt. has NG tube in place but is unsure of what is causing the pain.
[2021-01-20] MEDS: nitroglycerin 0.4 mg sublingual Tablet SUBLINGUAL ×2 (05:06→10:11)
--- NOTE | 2021-01-20 05:20 | PC.NURSE ---
Spoke with hospitalist about patient left jaw and ear pain. I asked to give morphine. He agreed and also states to use sublingual nitro due to the patients ekg changes. Pt. states that the nitro hurt her throat worse and gave her a headache.
[2021-01-20] MEDS: phenol oral Spray 177 mL 3 SPRAY MUCOUS MEM (05:30)
--- NOTE | 2021-01-20 05:37 | PC.NURSE ---
Spoke with Hospitalist, He ordered chloraseptic spray to help numb the patients throat and cancelled the nitro due to it causing burning in the throat and a headache.
[2021-01-20] MEDS: metoprolol tartrate 1 mg/1 mL SDV 5 mL 2.5 MG IVP ×4 (05:49→23:28)
[2021-01-20] MEDS: aspirin 300 mg Supp PR (05:55)
--- NOTE | 2021-01-20 06:26 | PC.NURSE ---
Pt. given aspirin early per dr. Cook. Pt. having ekg changes.
--- NOTE | 2021-01-20 08:38 | P.CONIM_ITS ---
Providers/Reason For Consult Consulting Physician/Specialty*: Ayush Johnson MD/Cardiology Reason for Consult*: Troponin elevation Requesting Physician: Dr Albert Attending Physician: Dr Albert Primary Care Provider: Baldomero Britt MD History of Present Illness History of Present Illness Anju Duffy is a 75 year old female with past medical history of nonischemic cardiomyopathy has presented with abdominal pain and vomiting. She was found to have small bowel obstructions. She had multiple small bowel obstructions in the past. She has atrial fibrillation and is on Eliquis. Cardiology was consulted as she had increasing troponins and had T wave inversions in anteroseptal leads. She denies active chest pain. Says that when she was anxious in the hospital had brief chest pain episode. She had coronary angiogram last month that did not reveal any significant CAD. Review of Systems Narrative: CONSTITUTIONAL: No fever chills weight loss or gain or night sweats. [] HEENT: Normocephalic, atraumatic.[] RESPIRATORY: No cough, sputum, hemoptysis or wheezing.[] CARDIOVASCULAR: No active chest pain GI: no nausea vomiting diarrhea. [] SECONDARY SCHOOL PRINCIPAL: No numbness, tingling, weakness or loss of function in any part of the body. [] MUSCULOSKELETAL: No knee or joint pain or rashes. [] Meds/Allergies Home Medications and Allergies Home Medications Medication Instructions Recorded Confirmed Last Taken Type sumatriptan succinate 100 mg tablet See Rx Instructions PO .COMPLEX PRN 09/30/19 01/20/21 01/10/21 History ondansetron HCl 4 mg tablet 4 mg PO Q12H PRN #60 tab 11/04/19 01/20/21 01/10/21 Rx buspirone 5 mg PO BID PRN 05/23/20 01/20/21 01/10/21 History lisinopril 5 mg tablet 5 mg PO BID #180 tab 01/05/21 01/20/21 01/10/21 Rx apixaban 5 mg tablet 5 mg PO BID 90 Days #180 tab 01/09/21 01/20/21 01/10/21 Rx lactulose 20 gram/30 mL oral 15 g PO Q12H 30 Days #1500 ml 01/17/21 01/20/21 Unknown Rx solution carvedilol 12.5 mg tablet 12.5 mg PO BID #180 tab 01/19/21 01/20/21 Unknown Rx docusate sodium 100 mg PO BID 01/20/21 01/20/21 Unknown History Allergies Allergy/AdvReac Type Severity Reaction Status Date / Time Latex, Natural Rubber Allergy ALGY-Rash Verified 01/09/21 12:56 Current Medications Current Medications Generic Name Dose Route Start Last Admin Trade Name Freq PRN Reason Stop Dose Admin Enoxaparin Sodium 60 mg 01/20/21 04:30 01/20/21 04:35 Enoxaparin 80 Mg/0.8 Ml Syringe SUBCUT 60 mg Q12H ROCIO Administration Famotidine 20 mg 01/20/21 00:16 01/20/21 00:47 Famotidine 20 Mg/2 Ml Inj IVP 20 mg Q12H ROCIO Administration Lactated Ringer's 1,000 mls @ 75 mls/hr 01/20/21 00:16 01/20/21 00:47 Lactated Ringers IV 75 mls/hr .[id number] ROCIO Administration Metoprolol Tartrate 2.5 mg 01/19/21 22:45 01/20/21 05:49 Metoprolol Tartrate 1 Mg/1 Ml Sdv 5 Ml IVP 2.5 mg Q6H ROCIO Administration Morphine Sulfate 2 mg 01/20/21 00:16 01/20/21 05:15 Morphine 4 Mg/Ml Sdv 1 Ml IVP 2 mg Q4H PRN Administration SEVERE PAIN Nitroglycerin 0.4 mg 01/20/21 04:53 01/20/21 05:06 Nitroglycerin 0.4 Mg Sublingual Tablet SUBLINGUAL 1 tab Q5M PRN Administration CHEST PAIN Ondansetron HCl 4 mg 01/20/21 00:16 01/20/21 01:51 Ondansetron 2 Mg/Ml Sdv 2 Ml IVP 4 mg Q6H PRN Administration vomiting, or N/V if npo PFSH Acute PFSH: Medical History Abdominal pain Adhesion of mesentery Atrial fibrillation Chest pain Colonic diverticular abscess Congestive heart failure Coronary disease Diabetes Diet controlled Discitis, unspecified, lumbar region DM II (diabetes mellitus, type II), controlled GUILLAUME (generalized anxiety disorder) GERD (gastroesophageal reflux disease) Gout Hypertension Intermittent small bowel obstruction Migraine MRSA bacteremia Myocardial infarction Myopericarditis Nausea & vomiting Necrotizing fasciitis Non-ST elevation [place] (NSTEMI) Osteoarthritis Pain of both breasts Pericarditis Scleroderma Small bowel obstruction Surgical History H/O colectomy H/O hernia repair History of cholecystectomy S/P dilatation of esophageal stricture S/P ANH-BSO Family History Mother Congestive heart failure Social History Smoking and tobacco status: former smoker Alcohol intake: never Female Reproductive History: Date of last menstrual period: 06/02/20 Vitals/I&O/Wt Last Vital Signs Temp 97.9 F 01/19/21 20:16 Pulse 86 01/20/21 04:35 Resp 20 H 01/20/21 05:15 BP 167/80 01/20/21 06:30 Pulse Ox 94 01/20/21 06:30 Weight last 48 hrs Weight 141 lb Physical Exam Narrative: EXAM NARRATIVE: GENERAL: Patient is alert, awake and oriented x3. [] NECK: No jugular vein distension. [] HEENT: No cyanosis. No icterus. No pallor. [] HEART: Tachycardic, regular S1 and S2. Grade 2/6 systolic murmur, no rub or gallop. [] LUNGS: Clear to auscultate bilaterally. [] ABDOMEN: Soft CENTRAL NERVOUS SYSTEM: Grossly nonfocal. [] EXTREMITIES: Lower extremities with 1+ edema bilaterally. Pulses palpable in the lower extremities, both dorsalis pedis and posterior tibial. [] A&P Assessment and plan (1) Non-ST elevation [place] (NSTEMI): (2) DM II (diabetes mellitus, type II), controlled: Qualifiers: Diabetes mellitus senior care insulin use: without senior care use Diabetes mellitus complication status: without complication Qualified Code(s): E11.9 - Type 2 diabetes mellitus without complications (3) Hypertension: Status: Acute Qualifiers: Hypertension type: essential hypertension Qualified Code(s): I10 - Essential (primary) hypertension (4) Small bowel obstruction: (5) Congestive heart failure: Status: Acute (6) Myopericarditis: Patient has again developed a small bowel obstruction. Her troponins have increased and had EKG changes. However she had a coronary angiogram last month that did not show any significant CAD. Medical management at this time. Can switch to Lovenox. Stop Eliquis. No plans for coronary angiogram again Can repeat limited echocardiogram to reassess LV systolic function. Thank you for involving us with care of this patient. We will continue to follow. Please call with questions. 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
--- NOTE | 2021-01-20 09:10 | PC.NURSE ---
Pt resting in room at this time with lights dimmed. Resp even and unlabored.
--- NOTE | 2021-01-20 10:37 | PC.NURSE ---
Dr. Layne called and notified of pts left sided jaw pain and HTN. EKG completed. Verbal order given for sublingual nitro. Pt's pain improves with nitro and HTN decreases.
[2021-01-20] MEDS: hyDRALAzine 20 mg/mL INJ 1 mL 10 MG IVP (13:12)
--- NOTE | 2021-01-20 13:46 | PC.NURSE ---
Pneumatic compression not available in the ER.
--- NOTE | 2021-01-20 14:20 | USCV_ITS ---
Anju Duffy Age: 75 Gender: F : 1945 Exam Date: 01/20/2021 14:47 Ordering Phys: Adiel Layne MD Technologist: Alexia Giordano [place] [facility] [place]: LV FUNCTION ASSESMENT BP: 137 / 74 HR: 90 Rhythm: Sinus Technical Quality: Adequate MEASUREMENTS (Male / Female) Normal Values 2D ECHO LV Diastolic Diameter PLAX 3.6 cm 4.2 - 5.9 / 3.9 - 5.3 cm LV Systolic Diameter PLAX 2.6 cm IVS Diastolic Thickness 1.1 cm 0.6 - 1.0 / 0.6 - 0.9 cm IVS Systolic Thickness 1.6 cm LVPW Diastolic Thickness 1.1 cm 0.6 - 1.0 / 0.6 - 0.9 cm LVPW Systolic Thickness 1.7 cm LVOT Diameter 2.0 cm LV Ejection Fraction 2D Teich 52.3 % LV Ejection Fraction MOD 2C 64.7 % LV Ejection Fraction 2C AL 67.0 % LA Diameter 2.9 cm LA Width 2.5 cm LA Height 4.5 cm RA Width 2.4 cm RA Height 3.9 cm Aorta at Sinotubular Diameter 2.0 cm M-MODE Aortic Annulus Diameter 2.6 cm LA Ao Ratio MM 1.4 DOPPLER Right Atrial Pressure 3.0 mmHg FINDINGS Left Ventricle Normal left ventricular size, systolic function and wall thickness, with no regional wall motion abnormalities. Left ventricular ejection fraction is estimated at 65 %. Right Ventricle Normal right ventricular size and systolic function. Right Atrium Normal right atrial size. Left Atrium Moderately increased left atrial size. Mitral Valve Structurally normal mitral valve. Aortic Valve Mildly thickened and calcified trileaflet aortic valve. Tricuspid Valve Structurally normal tricuspid valve. Pulmonic Valve Pulmonic valve not well visualized. Pericardium No pericardial effusion. Aorta Aorta not well visualized. CONCLUSIONS 1. Normal left ventricular size, systolic function and wall thickness, with no regional wall motion abnormalities. Left ventricular ejection fraction is estimated at 65 %. 2. Normal right ventricular size and systolic function. 3. Moderately increased left atrial size. 4. When compared to previous echocardiogram dated 12/18/20, left ventricular systolic function seems to have improved. Jacey Tran MD (Electronically Signed) Final Date: 20 January 2021 21:58 S
--- NOTE | 2021-01-20 14:22 | PM.PN ---
Subjective Subjective: Interval history: Patient was seen and examined this morning, continues to complain of nausea, vomiting, she is also complaining of left jaw pain. Medications: Reviewed: Yes Vitals/I&O/Wt Last Vital Signs Temp 97.9 F 01/19/21 20:16 Pulse 85 01/20/21 13:17 Resp 18 01/20/21 13:17 BP 161/79 01/20/21 13:17 Pulse Ox 97 01/20/21 13:17 01/19/21 01/20/21 01/20/21 22:59 06:59 14:59 Intake Total 931.25 / 931.25 Balance 931.25 / 931.25 Weight last 48 hrs Weight 63.957 kg Physical Exam Const: COMMON NORMALS: patient oriented x3 HENMT: COMMON NORMALS: normocephalic and atraumatic HEAD & SCALP: normocephalic and atraumatic Chest: CHEST: Yes Symmetrical chest wall rise Resp: COMMON NORMALS: clear to auscultation bilaterally EFFORT & INSPECTION: Yes symmetric chest movement AUSCULTATION: clear to auscultation bilaterally Cardio: COMMON NORMALS: regular rate, regular rhythm, S1 normal heart sound present, S2 normal heart sound present, No gallops present (Cardio), No murmurs present (Cardio), No rub (Cardio) and Peripheral pulses 2+ throughout RATE: regular rate RHYTHM: regular rhythm HEART SOUNDS: S1 normal heart sound present and S2 normal heart sound present PERIPHERAL PULSES: Peripheral pulses 2+ throughout GI: RECTAL EXAM: deferred OTHER: epigastric and left upper quadrant abdominal tenderness. No guarding no rigidity no rebound tenderness, normoactive bowel sounds Extremity: COMMON NORMALS: no clubbing, cyanosis or edema and no pedal edema Neuro: COMMON NORMALS: patient oriented x3 Data : 01/20/21 03:17 01/20/21 03:17 A&P Assessment and plan (1) Small bowel obstruction: NG tube to low intermittent suction. N.p.o. IV hydration Continue pain medication Zofran as needed Appreciate surgery input Status: Acute (2) Atrial fibrillation: History of atrial fib: Currently in sinus rhythm. Continue Lovenox therapeutic for anticoagulation.We will switch to to Eliquis on discharge. Metoprolol tartrate as needed Status: Acute Qualifiers: Atrial fibrillation type: paroxysmal Qualified Code(s): I48.0 - Paroxysmal atrial fibrillation (3) Congestive heart failure: HFrEF : Currently compensated Monitor intake output Daily weight K>4, MG>2 Status: Acute (4) Elevated troponin: Likely type II AK: Patient recently had cardiac cath:Which showed nonocclusive coronary artery disease. We will do a limited 2D echo to assess the LV function. S/L nitro as needed. Morphine as needed Status: Acute (5) Hypertension: Continue hydralazine and labetalol as needed Status: Acute Qualifiers: Hypertension type: essential hypertension Qualified Code(s): I10 - Essential (primary) hypertension (6) Diabetes: Status: Acute (7) GERD (gastroesophageal reflux disease): Status: Acute Qualifiers: Esophagitis presence: esophagitis presence not specified Qualified Code(s): K21.9 - Gastro-esophageal reflux disease without esophagitis Additional A&P Information 75 year old female with past medical history of prior abdominal surgeries and prior 5 episodes of small bowel obstruction requiring 2 surgeries in the past who is presenting to emergency room with complaints of abdominal pain and vomiting. Recurrent small bowel obstruction. NG tube is placed. We will continue bowel rest, IV fluids. Will monitor and replace electrolytes as needed. Pain medications as needed. GI prophylaxis. Famotidine IV. CHF. Currently stable. Will need to be careful with IV fluids. We will continue close monitoring. Hypertension, uncontrolled. Will order as needed labetalol and as needed hydralazine. History of A. fib. Currently in sinus. Will order IV metoprolol since she cannot take her p.o. medication. DVT prophylaxis. We will start her on Lovenox. She cannot take her apixaban now CODE STATUS. full code. The plan of care was discussed with the patient and her . They verbalized understanding and agreement. Attestations Medical Necessity Statement*: Patient is in hospital for management of above defined problems. Coding Level of Care Code Acute Hardware Installation Coordinator for [facility] Diagnoses Small bowel obstruction K56.609 Atrial fibrillation I48.0 Atrial fibrillation type: paroxysmal Congestive heart failure I50.9 Elevated troponin R77.8 Hypertension I10 Hypertension type: essential hypertension Diabetes E11.9 GERD (gastroesophageal reflux disease) K21.9 Esophagitis presence: esophagitis presence not specified
--- NOTE | 2021-01-20 15:54 | PM.CONSULT ---
Providers/Reason For Consult Consulting Physician/Specialty*: Loyd Miller MD Reason for Consult*: Bowel obstruction Requesting Physician: Dr Hughes Attending Physician: Filippo Albert Primary Care Provider: Baldomero Britt MD History of Present Illness History of Present Illness Chief Complaint: My tummy hurts History of present illness: Ms.Sara Duffy is a 75 year old female patient gives prior abdominal surgeries with recurrent episodes of bowel obstruction and she undergone couple of surgeries in the past. Apparently the patient presented to the emergency department complaining of abdominal pain and vomiting. Started yesterday afternoon. Patient had bowel movements earlier yesterday. No change in bowel habits and no evidence of bleeding per rectum. And no evidence of presence of constitutional symptoms. Further work-up in the emergency department was done and showed CT scan of the abdomen and pelvis showed Dilated loops of small bowel within the lower abdomen and pelvis suspicious for bowel obstruction. Blood work WC count of 14.1, sodium 139 potassium 3.7, serum creatinine 0.8. Patient was admitted to the hospitalist service and general surgery was consulted for further evaluation and potential management. General surgery was consulted for further evaluation and management Review of Systems General: Reports: 10 or more systems reviewed and unremarkable except in HPI and below Meds/Allergies Home Medications and Allergies Home Medications Medication Instructions Recorded Confirmed Last Taken Type sumatriptan succinate 100 mg tablet See Rx Instructions PO .COMPLEX PRN 09/30/19 01/20/21 01/10/21 History ondansetron HCl 4 mg tablet 4 mg PO Q12H PRN #60 tab 11/04/19 01/20/21 01/10/21 Rx buspirone 5 mg PO BID PRN 05/23/20 01/20/21 01/10/21 History lisinopril 5 mg tablet 5 mg PO BID #180 tab 01/05/21 01/20/21 01/10/21 Rx apixaban 5 mg tablet 5 mg PO BID 90 Days #180 tab 01/09/21 01/20/21 01/10/21 Rx lactulose 20 gram/30 mL oral 15 g PO Q12H 30 Days #1500 ml 01/17/21 01/20/21 Unknown Rx solution carvedilol 12.5 mg tablet 12.5 mg PO BID #180 tab 01/19/21 01/20/21 Unknown Rx docusate sodium 100 mg PO BID 01/20/21 01/20/21 Unknown History Allergies Allergy/AdvReac Type Severity Reaction Status Date / Time Latex, Natural Rubber Allergy ALGY-Rash Verified 01/20/21 15:59 Current Medications Current Medications Generic Name Dose Route Start Last Admin Trade Name Freq PRN Reason Stop Dose Admin Aspirin 300 mg 01/20/21 09:00 01/20/21 08:52 Aspirin 300 Mg Supp NH Not Given DAILY ROCIO Famotidine 20 mg 01/20/21 00:16 01/20/21 11:34 Famotidine 20 Mg/2 Ml Inj IVP 20 mg Q12H ROCIO Administration Hydralazine HCl 10 mg 01/20/21 00:16 01/20/21 13:12 Hydralazine 20 Mg/Ml Inj 1 Ml IVP 10 mg Q4H PRN Administration SBP above 160 Lactated Ringer's 1,000 mls @ 75 mls/hr 01/20/21 00:16 01/20/21 13:12 Lactated Ringers IV 75 mls/hr .[id number] ROCIO Administration Metoprolol Tartrate 2.5 mg 01/19/21 22:45 01/20/21 09:46 Metoprolol Tartrate 1 Mg/1 Ml Sdv 5 Ml IVP 2.5 mg Q6H ROCIO Administration Morphine Sulfate 2 mg 01/20/21 00:16 01/20/21 13:11 Morphine 4 Mg/Ml Sdv 1 Ml IVP 2 mg Q4H PRN Administration SEVERE PAIN Nitroglycerin 0.4 mg 01/20/21 04:53 01/20/21 10:11 Nitroglycerin 0.4 Mg Sublingual Tablet SUBLINGUAL 1 tab Q5M PRN Administration CHEST PAIN Ondansetron HCl 4 mg 01/20/21 00:16 01/20/21 11:34 Ondansetron 2 Mg/Ml Sdv 2 Ml IVP 4 mg Q6H PRN Administration vomiting, or N/V if npo PFSH Acute PFSH: Medical History Abdominal pain Adhesion of mesentery Atrial fibrillation Chest pain Colonic diverticular abscess Congestive heart failure Coronary disease Diabetes Diet controlled Discitis, unspecified, lumbar region DM II (diabetes mellitus, type II), controlled GUILLAUME (generalized anxiety disorder) GERD (gastroesophageal reflux disease) Gout Hypertension Intermittent small bowel obstruction Migraine MRSA bacteremia Myocardial infarction Myopericarditis Nausea & vomiting Necrotizing fasciitis Non-ST elevation [place] (NSTEMI) Osteoarthritis Pain of both breasts Pericarditis Scleroderma Small bowel obstruction Surgical History H/O colectomy H/O hernia repair History of cholecystectomy S/P dilatation of esophageal stricture S/P ANH-BSO Family History Mother Congestive heart failure Social History Smoking and tobacco status: former smoker Alcohol intake: never Female Reproductive History: Date of last menstrual period: 06/02/20 Vitals/I&O/Wt Last Vital Signs Temp 97.9 F 01/19/21 20:16 Pulse 85 01/20/21 13:17 Resp 18 01/20/21 13:17 BP 161/79 01/20/21 13:17 Pulse Ox 97 01/20/21 13:17 01/20/21 01/20/21 01/20/21 06:59 14:59 22:59 Intake Total 931.25 / 931.25 Balance 931.25 / 931.25 Weight last 48 hrs Weight 141 lb Physical Exam Narrative: EXAM NARRATIVE: Patient is conscious alert oriented X3 BMI 26 Head and neck examination PERRLA no masses no cervical lymphadenopathy no jaundice NG tube in place with gastric contents in the canister about 200 mL(patient's spouse reports that she had a full canister emptied when she came to the ER) Cardiac examination audible S1-S2 no murmurs no gallops no arrhythmias Chest is clear bilateral,abscence of Rhonchi or wheezes,no surgical emphysema Abdomen tender particularly on the left lower side nondistended soft no organomegaly guarding or rigidity/no signs of peritonitis A&P Assessment and plan (1) Small bowel obstruction: After thorough history physical exam and reviewing the CT scan images with my personal interpretation, I do believe that the patient likely have a bout a partial small bowel obstruction due to adhesive component yet the patient does have a large burden of stool in her bowels and I think that adds to her condition. Patient is not totally obstructed as she has been passing gas and having bowel movement I would recommend to continue NG to low intermittent wall suction IV fluid resuscitation Strict I's and O's Flush NG tube every 8 hours with 50 mL of saline Encourage ambulation Continue conservative measures for now Repeated physical examination Thank you for consulting general surgery to participate taking care Ms. Duffy Status: Acute Consult Attestations Medical Necessity Statement: Per admitting service Time Spent in Patient Care: (>than 50% of time spent in counselling and/or direct pt care on unit). Coding Level of Care Code Acute Oil Well Services Superintendent for [facility] F[facility] Diagnoses Small bowel obstruction K56.609
[2021-01-20] MEDS: enoxaparin 60 mg/0.6 mL Syringe SUBCUT (18:30)
[2021-01-21] VITALS (56 sets, daily range): BP systolic 111–179; BP diastolic 55–97; PULSE 67–100; RESP 16–18; TEMP 36.7–37.6; O2SAT 91–100
--- NOTE | 2021-01-21 03:33 | XRR_ITS ---
PROCEDURE INFORMATION: Exam: XR Chest Exam date and time: 01/21/2021 3:33 AM Age: 75 years old Clinical indication: Device placement; Ng tube; Patient HX: Check for ng placement. ; Additional info: Nasogastric tube placement TECHNIQUE: Imaging protocol: XR of the chest. Views: 1 view. COMPARISON: CR XR chest 1V portable [id number] 01/19/2021 10:16 PM FINDINGS: Tubes, catheters and devices: NG tube terminates in the stomach. Lungs: No consolidation. Pleural spaces: Unremarkable. No pleural effusion. No pneumothorax. Heart/Mediastinum: No cardiomegaly. Bones/joints: No acute fracture. XR/XR chest 1V portable [id number] IMPRESSION: Stable appearance of the lungs. Radiation Dose CTDIVOL = (mGy): DLP = (mGy-cm)
[2021-01-21] MEDS: morphine 4 mg/mL SDV 1 mL 2 MG IVP ×2 (03:37→21:49)
[2021-01-21] MEDS: ondansetron 2 mg/ML SDV 2 mL 4 MG IVP ×3 (03:37→12:48)
[2021-01-21] MEDS: enoxaparin 60 mg/0.6 mL Syringe SUBCUT ×2 (04:53→16:25)
[2021-01-21] MEDS: acetaminophen 1,000 MG/100 ML PIGGYBACK 400 MG IV (04:53)
[2021-01-21] MEDS: metoprolol tartrate 1 mg/1 mL SDV 5 mL 2.5 MG IVP ×4 (05:05→21:48)
[2021-01-21 05:28] LABS: Basophils % 0.4 %; Eosinophils # 0.1 10^3/uL (0.0-0.8); Eosinophils % 0.6 %; Hematocrit 46.7 % (37.0-47.0); Hemoglobin 14.5 g/dL (11.5-15.3); Lymphocytes # 1.6 10^3/uL (0.8-4.8); Lymphocytes % 14.7 %; Mean Corpuscular Volume 83.7 fl (81-99); Mean Platelet Volume 11.4 fL (7.4-10.4); Monocytes # 1.2 10^3/uL (0.2-0.9); Monocytes % 10.8 %; Neutrophils # 7.82 10^3/uL (1.8-7.7); Neutrophils % 72.9 %; Nucleated Red Blood Cells % 0 %; Platelet Count 227 10^3/cmm (130-400); Red Blood Count 5.58 10^6/uL (4.1-5.3); Red Cell Distribution Width 16.3 % (12.1-15.1); White Blood Count 10.7 10^3/uL (4.0-10.0)
[2021-01-21 05:47] LABS: Alanine Aminotransferase 12 U/L (0-33); Albumin Level 3.5 g/dL (3.5-5.2); Alkaline Phosphatase 99 IU/L (35-105); Aspartate Amino Transferase 21 U/L (0-32); Blood Urea Nitrogen 10 mg/dL (8-23); Calcium 8.9 mg/dL (8.5-10.5); Carbon Dioxide 23 mmol/L (22-29); Chloride 100 mmol/L (98-107); Globulin 2.9 g/dL (1.3-4.6); Glucose 108 mg/dL (65-115); Osmolality Calculated 284 mOsm/kg (285-295); Sodium 137 mmol/L (136-145); Total Bilirubin 1.9 mg/dL (0.15-1.2); Total Protein 6.4 g/dL (6.6-8.7)
[2021-01-21 05:49] LABS: Anion Gap 17.7 (5-19); Potassium 3.7 mmol/L (3.5-5.1)
[2021-01-21] MEDS: lactulose oral liq 20 gm/30 mL UDC 30 GM PO (07:49)
[2021-01-21] MEDS: aspirin 300 mg Supp PR (10:05)
[2021-01-21] MEDS: famotidine 20 mg/2 mL INJ IVP (11:10)
--- NOTE | 2021-01-21 14:04 | P.PN_ITS ---
Subjective Subjective: Interval history: She denies any shortness of breath. Mild chest discomfort yesterday which has since resolved. Medications: Reviewed: Yes Vitals/I&O/Wt Last Vital Signs Temp 98.1 F 01/21/21 08:00 Pulse 67 01/21/21 11:09 Resp 18 01/21/21 08:00 BP 179/91 01/21/21 11:09 Pulse Ox 94 01/21/21 08:00 01/20/21 01/21/21 01/21/21 22:59 06:59 14:59 Intake Total 398.75 / 1330.00 100 / 1430.00 1000 / 1000 Output Total 1575 / 1575 Balance 398.75 / 1330.00 100 / 1430.00 -575 / -575 Weight last 48 hrs Weight 141 lb Physical Exam Narrative: EXAM NARRATIVE: GENERAL: Averagely built and averagely nourished in no acute distress HEENT:Pupils equal round reactive to light. NECK: No JVD CARDIOVASCULAR SYSTEM: S1-S2 regular. No murmur rubs or gallops. RESPIRATORY SYSTEM: Chest clear to auscultation anteriorly. No wheezes rhonchi or rubs heard. EXTREMITIES: No cyanosis. No edema. No signs of chronic venous insufficiency. STEAM ROOM ATTENDANT: Patient is alert oriented ?3. No focal neurological deficits. Data : 01/21/21 04:29 01/21/21 04:29 A&P Assessment and plan (1) Non-ST elevation [place] (NSTEMI): (2) DM II (diabetes mellitus, type II), controlled: Qualifiers: Diabetes mellitus complication status: without complication Diabetes mellitus terminal supervisor insulin use: without terminal supervisor use Qualified Code(s): E11.9 - Type 2 diabetes mellitus without complications (3) Hypertension: Status: Acute Qualifiers: Hypertension type: essential hypertension Qualified Code(s): I10 - Essential (primary) hypertension (4) Small bowel obstruction: (5) Congestive heart failure: Status: Acute (6) Myopericarditis: Paroxysmal atrial fibrillation Patient has again developed a small bowel obstruction. Her troponins have increased and had EKG changes. However she had a coronary angiogram last month that did not show any significant CAD.She was diagnosed with Takotsubo vs myopaericarditis. Medical management at this time. No plans for coronary angiogram again Echocardiogram with normal LV function and no regional wall motion abnormality. -May resume patient back on Eliquis on discharge. Thank you for involving us with care of this patient. We will continue to follow. Please call with questions. Attestations Medical Necessity Statement*: As per primary team Time Spent in Patient Care: 16 - 35 minutes Coding Level of Care Code Acute Cracking And Fanning Machine Operator for g Fwd Diagnoses Non-ST elevation [place] (NSTEMI) I21.4 DM II (diabetes mellitus, type II), controlled E11.9 Diabetes mellitus complication status: without complication Diabetes mellitus mcfp insulin use: without terminal supervisor use Hypertension I10 Hypertension type: essential hypertension Small bowel obstruction K56.609 Congestive heart failure I50.9 Myopericarditis I31.9
[2021-01-21] MEDS: glycerin adult supp 1 EACH PR (15:50)
--- NOTE | 2021-01-21 15:51 | PC.NURSE ---
Pt passing gas while this nurse is in the room.
--- NOTE | 2021-01-21 16:02 | P.PN_ITS ---
Subjective Subjective: Interval history: Patient did encounter diffuse abdominal pain overnight. NG is functioning with dark enteric contents. No bowel movements or passage of gas. Medications: Reviewed: Yes Vitals/I&O/Wt Last Vital Signs Temp 98.1 F 01/21/21 08:00 Pulse 100 01/21/21 15:12 Resp 16 01/21/21 15:12 BP 173/84 01/21/21 15:12 Pulse Ox 95 01/21/21 15:12 01/21/21 01/21/21 01/21/21 06:59 14:59 22:59 Intake Total 100 / 1430.00 1000 / 1000 Output Total 1575 / 1575 Balance 100 / 1430.00 -575 / -575 Weight last 48 hrs Weight 141 lb Physical Exam Narrative: EXAM NARRATIVE: Patient is conscious alert oriented X3 BMI 26 Head and neck examination PERRLA no masses no cervical lymphadenopathy no jaundice NG in place and functioning Abdomen mildly and diffusely tender nondistended soft no organomegaly guarding or rigidity/no signs of peritonitis Data : 01/21/21 04:29 01/21/21 04:29 A&P Assessment and plan (1) Small bowel obstruction: Continue NG to low intermittent wall suction Flush NG with 50 mL of saline every 8 hours to maintain patency Repeated physical examination Correction of electrolytes Recommend glycerin suppository Likely will consider milk and molasses enema at some point Thank you for consulting general surgery to participate taking care Ms. Duffy Status: Acute Attestations Medical Necessity Statement*: Per admitting service Time Spent in Patient Care: (>than 50% of time spent in counselling and/or direct pt care on unit) . 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
--- NOTE | 2021-01-21 16:53 | P.PN_ITS ---
Subjective Subjective: Interval history: Patient was seen and examined this morning, continues to complain of nausea, vomiting. NG tube to low intermittent suction. 2D echo done during the hospital stay showed normal LVEF. Denies any chest pain. Medications: Reviewed: Yes Vitals/I&O/Wt Last Vital Signs Temp 98.1 F 01/21/21 08:00 Pulse 100 01/21/21 15:12 Resp 16 01/21/21 15:12 BP 173/84 01/21/21 15:12 Pulse Ox 95 01/21/21 15:12 01/21/21 01/21/21 01/21/21 06:59 14:59 22:59 Intake Total 100 / 1430.00 1000 / 1000 Output Total 1575 / 1575 Balance 100 / 1430.00 -575 / -575 Weight last 48 hrs Weight 63.957 kg Physical Exam Const: COMMON NORMALS: patient oriented x3 HENMT: COMMON NORMALS: normocephalic and atraumatic HEAD & SCALP: normocephalic and atraumatic Chest: CHEST: Yes Symmetrical chest wall rise Resp: COMMON NORMALS: clear to auscultation bilaterally EFFORT & INSPEC TION: Yes symmetric chest movement AUSCULTATION: clear to auscultation bilaterally Cardio: COMMON NORMALS: regular rate, regular rhythm, S1 normal heart sound present, S2 normal heart sound present, No gallops present (Cardio), No murmurs present (Cardio), No rub (Cardio) and Peripheral pulses 2+ throughout RATE: regular rate RHYTHM: regular rhythm HEART SOUNDS: S1 normal heart sound present and S2 normal heart sound present PERIPHERAL PULSES: Peripheral pulses 2+ throughout GI: RECTAL EXAM: deferred OTHER: epigastric and left upper quadrant abdominal tenderness. No guarding no rigidity no rebound tenderness, normoactive bowel sounds Extremity: COMMON NORMALS: no clubbing, cyanosis or edema and no pedal edema Neuro: COMMON NORMALS: patient oriented x3 Data : 01/21/21 04:29 01/21/21 04:29 A&P Assessment and plan (1) Small bowel obstruction: NG tube to low intermittent suction. N.p.o. IV hydration Continue pain medication Zofran as needed Appreciate surgery input Status: Acute (2) Atrial fibrillation: History of atrial fib: Currently in sinus rhythm. Continue Lovenox therapeutic for anticoagulation.We will switch to to Eliquis on discharge. Metoprolol tartrate as needed Status: Acute Qualifiers: Atrial fibrillation type: paroxysmal Qualified Code(s): I48.0 - Paroxysmal atrial fibrillation (3) Congestive heart failure: HFrEF : Currently compensated Monitor intake output Daily weight K>4, MG>2 Status: Acute (4) Elevated troponin: Likely type II [place]: Patient recently had cardiac cath:Which showed nonocclusive coronary artery disease. Repeat limited 2D echo to assess the LV function. Shows normalization of LV function. S/L nitro as needed. Morphine as needed Status: Acute (5) Hypertension: Continue hydralazine and labetalol as needed Status: Acute Qualifiers: Hypertension type: essential hypertension Qualified Code(s): I10 - Essential (primary) hypertension (6) Diabetes: Status: Acute (7) GERD (gastroesophageal reflux disease): Status: Acute Qualifiers: Esophagitis presence: esophagitis presence not specified Qualified Code(s): K21.9 - Gastro-esophageal reflux disease without esophagitis Additional A&P Information 75 year old female with past medical history of prior abdominal surgeries and prior 5 episodes of small bowel obstruction requiring 2 surgeries in the past who is presenting to emergency room with complaints of abdominal pain and vomiting. Recurrent small bowel obstruction. NG tube is placed. We will continue bowel rest, IV fluids. Will monitor and replace electrolytes as needed. Pain medications as needed. GI prophylaxis. Famotidine IV. CHF. Currently stable. Will need to be careful with IV fluids. We will continue close monitoring. Hypertension, uncontrolled. Will order as needed labetalol and as needed hydralazine. History of A. fib. Currently in sinus. Will order IV metoprolol since she cannot take her p.o. medication. DVT prophylaxis. We will start her on Lovenox. She cannot take her apixaban now CODE STATUS. full code. The plan of care was discussed with the patient and her . They verbalized understanding and agreement. Attestations Medical Necessity Statement*: Patient is to be in hospital for management of small bowel obstruction. Coding Level of Care Code Acute High Pressure Boiler Operator for [facility] Fwd Exam Detailed Diagnoses Small bowel obstruction K56.609 Atrial fibrillation I48.0 Atrial fibrillation type: paroxysmal Congestive heart failure I50.9 Elevated troponin R77.8 Hypertension I10 Hypertension type: essential hypertension Diabetes E11.9 GERD (gastroesophageal reflux disease) K21.9 Esophagitis presence: esophagitis presence not specified
[2021-01-21] MEDS: lidocaine 2% viscous 15 mL UDC 5 ML MUCOUS MEM (19:39)
[2021-01-21] MEDS: lactated ringers 1,000 ML 75 ML IV (21:41)
[2021-01-21] MEDS: scopolamine 1.5 Patch 1 PATCH TRANSDERMA (21:41)
[2021-01-22] VITALS (7 sets, daily range): BP systolic 116–189; BP diastolic 67–99; PULSE 88–101; RESP 16–18; TEMP 36.6–36.9; O2SAT 95–98
[2021-01-22] MEDS: famotidine 20 mg/2 mL INJ IVP ×3 (00:56→23:46)
[2021-01-22] MEDS: hyDRALAzine 20 mg/mL INJ 1 mL 10 MG IVP ×2 (00:56→09:03)
[2021-01-22] MEDS: lidocaine 2% viscous 15 mL UDC 5 ML MUCOUS MEM (02:04)
[2021-01-22] MEDS: enoxaparin 60 mg/0.6 mL Syringe SUBCUT ×2 (04:46→15:37)
[2021-01-22] MEDS: metoprolol tartrate 1 mg/1 mL SDV 5 mL 2.5 MG IVP ×4 (04:53→23:10)
--- NOTE | 2021-01-22 05:36 | PC.NURSE ---
patient turned light on and c/o upset stomach, stated I have been c/o upset stomach ever since I got here and no would do anything about it , patient reminded that she had not c/o upset stomach all this shift. zofran to be administered
[2021-01-22 05:50] LABS: Basophils % 0.4 %; Eosinophils # 0.1 10^3/uL (0.0-0.8); Eosinophils % 0.5 %; Hematocrit 43.7 % (37.0-47.0); Hemoglobin 13.9 g/dL (11.5-15.3); Lymphocytes # 1.8 10^3/uL (0.8-4.8); Lymphocytes % 16.5 %; Mean Corpuscular HGB Conc 31.8 g/dL (30.0-36.0); Mean Corpuscular Hemoglobin 26.3 pg (28.0-34.0); Mean Corpuscular Volume 82.8 fl (81-99); Mean Platelet Volume 12.2 fL (7.4-10.4); Monocytes # 1.4 10^3/uL (0.2-0.9); Neutrophils # 7.38 10^3/uL (1.8-7.7); Neutrophils % 69.2 %; Nucleated Red Blood Cells % 0 %; Platelet Count 213 10^3/cmm (130-400); Red Blood Count 5.28 10^6/uL (4.1-5.3); Red Cell Distribution Width 16.1 % (12.1-15.1); White Blood Count 10.7 10^3/uL (4.0-10.0)
[2021-01-22] MEDS: ondansetron 2 mg/ML SDV 2 mL 4 MG IVP ×2 (06:03→15:40)
[2021-01-22 06:16] LABS: Alanine Aminotransferase 10 U/L (0-33); Albumin Level 3.3 g/dL (3.5-5.2); Alkaline Phosphatase 99 IU/L (35-105); Aspartate Amino Transferase 16 U/L (0-32); Blood Urea Nitrogen 11 mg/dL (8-23); Calcium 8.1 mg/dL (8.5-10.5); Carbon Dioxide 25 mmol/L (22-29); Chloride 99 mmol/L (98-107); Globulin 2.8 g/dL (1.3-4.6); Glucose 100 mg/dL (65-115); Osmolality Calculated 287 mOsm/kg (285-295); Sodium 139 mmol/L (136-145); Total Bilirubin 1.5 mg/dL (0.15-1.2); Total Protein 6.1 g/dL (6.6-8.7)
--- NOTE | 2021-01-22 08:27 | PC.NURSE ---
Rounding with Dr. Sandoval, discussed patient plan of care with patient and spouse, verbalized understanding. Patient encouraged to ambulate, Dr. Sandoval will obtain x-ray imaging today.
--- NOTE | 2021-01-22 08:40 | PC.NURSE ---
NG tube clamped per Dr. De Anda orders resume suction in 2 hours per physician.
[2021-01-22] MEDS: aspirin 300 mg Supp PR (09:02)
[2021-01-22] MEDS: promethazine 25 mg/mL SDV 1 mL 12.5 MG IM (09:03)
[2021-01-22] MEDS: lactated ringers 1,000 ML 75 ML IV ×2 (09:15→22:43)
--- NOTE | 2021-01-22 09:57 | XRR_ITS ---
PROCEDURE INFORMATION: Exam: XR Abdomen Exam date and time: 01/22/2021 9:57 AM Age: 75 years old Clinical indication: Abdominal pain; Additional info: History of recurrent bowel obstruction/abdominal pain, erect and supine TECHNIQUE: Imaging protocol: XR of the abdomen. Views: 2 Views. Upright and supine views. COMPARISON: CT abdomen pelvis w con* [id number] 01/19/2021 9:21 PM FINDINGS: Tubes, catheters and devices: The feeding tube enters the stomach with the tip in the upper gastric body. Right anterior abdominal/upper pelvic wall mesh repair redemonstrated. Gastrointestinal tract: Improved/resolved prior small bowel distension. Intraperitoneal space: No pneumoperitoneum. No evidence of ascites. Organs: The gallbladder is likely surgically absent, with metallic clips overlying the gallbladder fossa. Mild intrahepatic pneumobilia. Bones/joints: Bilateral lower lumbar facet primary osteoarthritis. XR/XR abdomen min 2V [id number] IMPRESSION: 1. Prior cholecystectomy. 2. Mild intrahepatic pneumobilia. 3. Improved/resolved prior small bowel distension/partial obstruction. Radiation Dose CTDIVOL = (mGy): DLP = (mGy-cm)
--- NOTE | 2021-01-22 10:45 | PC.NURSE ---
Resumed low int. suction to NG tube after X-ray obtained, placement confirmed.
--- NOTE | 2021-01-22 12:13 | PM.PN ---
Subjective Subjective: Interval history: Patient was seen and examined this morning, continues to complain of nausea, vomiting. NG tube to low intermittent suction. She is passing flatus , no stool . . Medications: Reviewed: Yes Vitals/I&O/Wt Last Vital Signs Temp 98.4 F 01/22/21 07:08 Pulse 98 01/22/21 07:08 Resp 18 01/22/21 07:08 BP 162/67 01/22/21 07:08 Pulse Ox 96 01/22/21 07:08 01/21/21 01/22/21 01/22/21 22:59 06:59 14:59 Intake Total 867.5 / 867.5 Output Total 300 / 1875 500 / 2375 Balance -300 / -875 -500 / -1375 867.5 / 867.5 Physical Exam Const: COMMON NORMALS: patient oriented x3 HENMT: COMMON NORMALS: normocephalic and atraumatic HEAD & SCALP: normocephalic and atraumatic Chest: CHEST: Yes Symmetrical chest wall rise Resp: COMMON NORMALS: clear to auscultation bilaterally EFFORT & INSPECTION: Yes symmetric chest movement AUSCULTATION: clear to auscultation bilaterally Cardio: COMMON NORMALS: regular rate, regular rhythm, S1 normal heart sound present, S2 normal heart sound present, No gallops present (Cardio), No murmurs present (Cardio), No rub (Cardio) and Peripheral pulses 2+ throughout RATE: regular rate RHYTHM: regular rhythm HEART SOUNDS: S1 normal heart sound present and S2 normal heart sound present PERIPHERAL PULSES: Peripheral pulses 2+ throughout GI: RECTAL EXAM: deferred OTHER: epigastric and left upper quadrant abdominal tenderness. No guarding no rigidity no rebound tenderness, normoactive bowel sounds Extremity: COMMON NORMALS: no clubbing, cyanosis or edema and no pedal edema Neuro: COMMON NORMALS: patient oriented x3 Data : 01/22/21 05:10 01/22/21 05:10 A&P Assessment and plan (1) Small bowel obstruction: NG tube to low intermittent suction. N.p.o. IV hydration Continue pain medication Zofran as needed Appreciate surgery input Status: Acute (2) Atrial fibrillation: History of atrial fib: Currently in sinus rhythm. Continue Lovenox therapeutic for anticoagulation.We will switch to to Eliquis on discharge. Metoprolol tartrate as needed Status: Acute Qualifiers: Atrial fibrillation type: paroxysmal Qualified Code(s): I48.0 - Paroxysmal atrial fibrillation (3) Congestive heart failure: HFrEF : Currently compensated Monitor intake output Daily weight K>4, MG>2 Status: Acute (4) Elevated troponin: Likely type II [place]: Patient recently had cardiac cath:Which showed nonocclusive coronary artery disease. Repeat limited 2D echo to assess the LV function. Shows normalization of LV function. S/L nitro as needed. Morphine as needed Status: Acute (5) Hypertension: Continue hydralazine and labetalol as needed Status: Acute Qualifiers: Hypertension type: essential hypertension Qualified Code(s): I10 - Essential (primary) hypertension (6) Diabetes: Status: Acute (7) GERD (gastroesophageal reflux disease): Status: Acute Qualifiers: Esophagitis presence: esophagitis presence not specified Qualified Code(s): K21.9 - Gastro-esophageal reflux disease without esophagitis Additional A&P Information 75 year old female with past medical history of prior abdominal surgeries and prior 5 episodes of small bowel obstruction requiring 2 surgeries in the past who is presenting to emergency room with complaints of abdominal pain and vomiting. Recurrent small bowel obstruction. NG tube is placed. We will continue bowel rest, IV fluids. Will monitor and replace electrolytes as needed. Pain medications as needed. GI prophylaxis. Famotidine IV. CHF. Currently stable. Will need to be careful with IV fluids. We will continue close monitoring. Hypertension, uncontrolled. Will order as needed labetalol and as needed hydralazine. History of A. fib. Currently in sinus. Will order IV metoprolol since she cannot take her p.o. medication. DVT prophylaxis. We will start her on Lovenox. She cannot take her apixaban now CODE STATUS. full code. The plan of care was discussed with the patient and her . They verbalized understanding and agreement. Attestations Medical Necessity Statement*: Patient is in hospital for management small bowel obstruction. Coding Level of Care Code Acute Environmental Epidemiologist for [facility] Fwd Exam Detailed Diagnoses Small bowel obstruction K56.609 Atrial fibrillation I48.0 Atrial fibrillation type: paroxysmal Congestive heart failure I50.9 Elevated troponin R77.8 Hypertension I10 Hypertension type: essential hypertension Diabetes E11.9 GERD (gastroesophageal reflux disease) K21.9 Esophagitis presence: esophagitis presence not specified
[2021-01-22] MEDS: LORazepam 2 mg/mL INJ 1 mL IVP (15:39)
--- NOTE | 2021-01-22 16:20 | PM.PN ---
Subjective Subjective: Interval history: Patient seems to be very anxious today and restless, she continues to pass gas. Responded some to the milk and molasses enema. Medications: Reviewed: Yes Vitals/I&O/Wt Last Vital Signs Temp 98.4 F 01/22/21 16:00 Pulse 100 01/22/21 16:00 Resp 17 01/22/21 16:00 BP 161/68 01/22/21 16:00 Pulse Ox 97 01/22/21 16:00 01/22/21 01/22/21 01/22/21 06:59 14:59 22:59 Intake Total 867.5 / 867.5 Output Total 500 / 2375 300 / 300 950 / 1250 Balance -500 / -1375 567.5 / 567.5 -950 / -382.5 Physical Exam Narrative: EXAM NARRATIVE: Patient is conscious alert oriented X3 BMI 26 Head and neck examination PERRLA no masses no cervical lymphadenopathy no jaundice NG in place and functioning well. Reported 900 mL overnight Abdomen much less tender nondistended soft no organomegaly guarding or rigidity/no signs of peritonitis Data : 01/22/21 05:10 01/22/21 05:10 A&P Assessment and plan (1) Small bowel obstruction: We will clamp NG tube for 2 hours and check residuals afterwards. If less than 200 mL and matching the findings on the KUB that did not show bowel obstruction. We will plan to DC NG tube and start the patient on clear liquid diet. My personal interpretation of the KUB that showed stool burden in the colon no evidence of bowel obstruction and NG tube in appropriate position. Likely will consider milk and molasses enema at some point Thank you for consulting general surgery to participate taking care Ms. Duffy Status: Acute Attestations Medical Necessity Statement*: Per admitting service Time Spent in Patient Care: 16 - 35 minutes (>than 50% of time spent in counselling and/or direct pt care on unit). Coding Level of Care Code Acute Air Valve Repairer for Tad Sanderson Diagnoses Small bowel obstruction K56.609
--- NOTE | 2021-01-22 16:22 | PC.NURSE ---
Rounded with Dr. De Anda new orders received to remove NG tube, continue to monitor. SEE orders for further details.
[2021-01-23] VITALS: BP 112/54; PULSE 75; RESP 16; TEMP 36.4; O2SAT 97
--- NOTE | 2021-01-23 01:09 | PC.NURSE ---
patient alert and oriented x3 with confusions and hallucinations present, patient had been up and awake, patient thinks she is at home, wanting to check the pantry, sit at her office desk, repeatedly had to be reminded that she is in a hospital and not at home, patient received lorazepam from previous shift.
[2021-01-23] MEDS: enoxaparin 60 mg/0.6 mL Syringe SUBCUT ×2 (03:42→17:34)
[2021-01-23 04:00] VITALS: BP 140/87; PULSE 108; RESP 17; TEMP 36.9; O2SAT 97
[2021-01-23] MEDS: metoprolol tartrate 1 mg/1 mL SDV 5 mL 2.5 MG IVP ×4 (04:22→21:51)
--- NOTE | 2021-01-23 06:37 | PC.NURSE ---
patient been awake all night, ambulated x4 throughout the shift, confusion increased, hallucination present the past 2 hours, patient seeing ants, and dogs in room. discussed with dr. De Anda, nurse directed to discuss with lorazepam with hospitalist.
[2021-01-23 07:26] VITALS: BP 110/55; PULSE 93; RESP 16; TEMP 36.4; O2SAT 96
[2021-01-23 09:13] LABS: Basophils % 0.4 %; Eosinophils # 0.3 10^3/uL (0.0-0.8); Hematocrit 43.5 % (37.0-47.0); Hemoglobin 13.8 g/dL (11.5-15.3); Lymphocytes # 2.7 10^3/uL (0.8-4.8); Lymphocytes % 30.3 %; Mean Corpuscular HGB Conc 31.7 g/dL (30.0-36.0); Mean Corpuscular Hemoglobin 26.2 pg (28.0-34.0); Mean Corpuscular Volume 82.5 fl (81-99); Mean Platelet Volume 11.4 fL (7.4-10.4); Monocytes # 0.8 10^3/uL (0.2-0.9); Monocytes % 9.3 %; Neutrophils # 5.12 10^3/uL (1.8-7.7); Neutrophils % 56.7 %; Nucleated Red Blood Cells % 0 %; Platelet Count 233 10^3/cmm (130-400); Red Blood Count 5.27 10^6/uL (4.1-5.3); Red Cell Distribution Width 16.2 % (12.1-15.1)
[2021-01-23 09:31] LABS: Alanine Aminotransferase 13 U/L (0-33); Albumin Level 3.7 g/dL (3.5-5.2); Alkaline Phosphatase 105 IU/L (35-105); Anion Gap 16.1 (5-19); Aspartate Amino Transferase 23 U/L (0-32); Blood Urea Nitrogen 13 mg/dL (8-23); Calcium 8.5 mg/dL (8.5-10.5); Carbon Dioxide 25 mmol/L (22-29); Chloride 101 mmol/L (98-107); Globulin 3.2 g/dL (1.3-4.6); Glucose 152 mg/dL (65-115); Osmolality Calculated 291 mOsm/kg (285-295); Potassium 3.1 mmol/L (3.5-5.1); Sodium 139 mmol/L (136-145); Total Bilirubin 1.2 mg/dL (0.15-1.2); Total Protein 6.9 g/dL (6.6-8.7)
[2021-01-23 11:14] VITALS: BP 146/73; PULSE 101; RESP 16; TEMP 36.5; O2SAT 97
[2021-01-23] MEDS: famotidine 20 mg/2 mL INJ IVP (11:30)
[2021-01-23] MEDS: potassium chloride ER 20 mEq Tablet 40 MEQ PO (11:30)
[2021-01-23] MEDS: aspirin 325 mg Tablet PO (11:30)
--- NOTE | 2021-01-23 11:31 | XR_ITS ---
WS: [id number] Exam: XR chest 1V portable [id number] Date/Time of Exam: 01/23/2021 11:31 AM Reason For Exam: sob Comparison 01/21/2021. The lungs are clear and fully expanded. Normal cardiomediastinal structures and bony elements. XR/XR chest 1V portable [id number] IMPRESSION: 1. No acute cardiopulmonary finding. No change. 2. Previously noted NG tube is been removed.
[2021-01-23 11:38] LABS: Procalcitonin 0.13 ng/mL (0-0.5); Thyroid Stimulating Hormone 2.56 uIU/mL (0.27-4.20)
[2021-01-23 11:49] LABS: C Reactive Protein 40.8 mg/L (0.0-4.9)
[2021-01-23 12:08] LABS: Add Urine Microscopic? YES; Bilirubin Urine Neg (Negative); Blood Urine 2+ (Negative); Glucose Urine UA Norm (Normal); Ketones Urine Negative (Negative); Leukocyte Esterase Urine Negative (Negative); Nitrate Urine Negative (Negative); Protein Urine Neg (Negative); RBC Urine 0-4 /hpf (0-2); Urine Appearance Clear (CLEAR); Urine Color Yellow (Yellow); Urobilinogen Urine Norm (Negative); WBC Urine 0-4 /hpf (0-5); pH Urine 7 (5-7)
[2021-01-23 12:09] LABS: Add Urine Culture? No; Squamous Epithelial Cell Urine 0-4 /hpf (0-5)
--- NOTE | 2021-01-23 13:34 | PC.SOCIAL ---
IMM updated, initialed and dated and copy given to patient
[2021-01-23 15:27] VITALS: BP 128/83; PULSE 90; RESP 16; TEMP 36.4; O2SAT 98
--- NOTE | 2021-01-23 16:38 | PM.PN ---
Subjective Subjective: Interval history: Patient overall feels well tolerating p.o. intake and passing gas Medications: Reviewed: Yes Vitals/I&O/Wt Last Vital Signs Temp 97.5 F L 01/23/21 15:27 Pulse 90 01/23/21 15:27 Resp 16 01/23/21 15:27 BP 128/83 01/23/21 15:27 Pulse Ox 98 01/23/21 15:27 01/23/21 01/23/21 01/23/21 06:59 14:59 22:59 Intake Total 480 / 480 Balance 480 / 480 Physical Exam Narrative: EXAM NARRATIVE: Patient is conscious alert oriented X3 BMI 26 Head and neck examination PERRLA no masses no cervical lymphadenopathy no jaundice Abdomen non tender nondistended soft no organomegaly guarding or rigidity/no signs of peritonitis Data : 01/23/21 08:34 01/23/21 08:34 A&P Assessment and plan (1) Small bowel obstruction: Advance diet as tolerated Can be discharged from surgical standpoint of view once medically appropriate Thank you for consulting general surgery to participate taking care Ms. Duffy Status: Acute Attestations Medical Necessity Statement*: Per admitting service Time Spent in Patient Care: (>than 50% of time spent in counselling and/or direct pt care on unit). Coding Level of Care Code Acute Sales Floor Associate for Tad Sanderson Diagnoses Small bowel obstruction K56.609
[2021-01-23 20:00] VITALS: BP 122/72; PULSE 108; RESP 17; TEMP 36.5; O2SAT 97
[2021-01-23] MEDS: lactated ringers 1,000 ML 75 ML IV (21:51)
--- NOTE | 2021-01-23 22:16 | P.PN_ITS ---
Subjective Subjective: Interval history: Patient was seen this morning, she had episodes of confusion overnight, received Ativan, this morning she is alert to person, to place, but does become drowsy, she does follow commands squeezes my fingers, could visible her toes, can answer questions appropriate, but at other times her responses are inappropriate and she acts confused, her is at bedside, tells me that this happened whenever she gets Ativan, but just a few minutes before I entered the room he tells me that she was talking with her neighbor, and had a appropriate conversation. Currently she denies any abdominal pain, no nausea, no vomiting, is passing gas, she is not sure if she had a bowel movement Vitals/I&O/Wt Last Vital Signs Temp 97.7 F 01/23/21 20:00 Pulse 108 H 01/23/21 20:00 Resp 17 01/23/21 20:00 BP 122/72 01/23/21 20:00 Pulse Ox 97 01/23/21 20:00 01/23/21 01/23/21 01/23/21 06:59 14:59 22:59 Intake Total 1480 / 1480 Balance 1480 / 1480 Physical Exam Const: COMMON NORMALS: no acute distress ORIENTATION/CONSCIOUSNESS: Yes awake, Yes oriented to person and Yes confused; not oriented to place and not oriented to time Resp: COMMON NORMALS: normal respiratory effort, No retractions, No use of accessory muscles and clear to auscultation bilaterally AUSCULTATION: clear to auscultation bilaterally Cardio: COMMON NORMALS: regular rate, regular rhythm, S1 normal heart sound present and S2 normal heart sound present RATE: regular rate RHYTHM: regular rhythm HEART SOUNDS: S1 normal heart sound present and S2 normal heart sound present GI: COMMON NORMALS: Normal to inspection, nondistended, normoactive bowel sounds present, Soft to palpation and non-tender PALPATION: Yes Soft to palpation Extremity: COMMON NORMALS: no pedal edema Neuro: SENSORIUM/ORIENTATION: Yes oriented to person, No oriented to place and No oriented to time Data : 01/23/21 08:34 01/23/21 08:34 A&P Assessment and plan (1) Small bowel obstruction: NG tube has been discontinued Currently on full liquid diet Continue pain medication Zofran as needed Appreciate surgery input Status: Acute (2) Atrial fibrillation: History of atrial fib: Currently in sinus rhythm. Continue Lovenox therapeutic for anticoagulation.We will switch to to Eliquis on discharge. Metoprolol tartrate as needed Status: Acute Qualifiers: Atrial fibrillation type: paroxysmal Qualified Code(s): I48.0 - Paroxysmal atrial fibrillation (3) Congestive heart failure: HFrEF : Currently compensated Monitor intake output Daily weight K>4, MG>2 Status: Acute (4) Elevated troponin: Likely type II NE: Patient recently had cardiac cath:Which showed nonocclu sive coronary artery disease. Repeat limited 2D echo to assess the LV function. Shows normalization of LV function. S/L nitro as needed. Morphine as needed Status: Acute (5) Hypertension: Continue hydralazine and labetalol as needed Status: Acute Qualifiers: Hypertension type: essential hypertension Qualified Code(s): I10 - Essential (primary) hypertension (6) Diabetes: Status: Acute (7) GERD (gastroesophageal reflux disease): Status: Acute Qualifiers: Esophagitis presence: esophagitis presence not specified Qualified Code(s): K21.9 - Gastro-esophageal reflux disease without esophagitis Additional A&P Information 75 year old female with past medical history of prior abdominal surgeries and prior 5 episodes of small bowel obstruction requiring 2 surgeries in the past who is presenting to emergency room with complaints of abdominal pain and vomiting. altered mental status, does report a history of dementia, UA unremarkable for UTI, chest x-ray no focal pneumonia, no fevers overnight, no other focal signs of infection, no calf pain, no hemoptysis, does not require any oxygen, -Likely secondary to Ativan -We will hold Ativan -Monitor mentation -Hopefully can discharge in the next 24 hours as mentation improves GI prophylaxis. Famotidine IV. CHF. Currently stable. Will need to be careful with IV fluids. We will continue close monitoring. Hypertension, uncontrolled. Will order as needed labetalol and as needed hydralazine. History of A. fib. Currently in sinus. Will order IV metoprolol since she cannot take her p.o. medication. DVT prophylaxis. We will start her on Lovenox. She cannot take her apixaban now CODE STATUS. full code. The plan of care was discussed with the patient and her . They verbalized understanding and agreement. Attestations Medical Necessity Statement*: Patient requires hospitalization due to small bowel obstruction, altered mental status Coding Level of Care Code Acute Dredge Boat Engineer for Chg Fwd Diagnoses Small bowel obstruction K56.609 Atrial fibrillation I48.0 Atrial fibrillation type: paroxysmal Congestive heart failure I50.9 Elevated troponin R77.8 Hypertension I10 Hypertension type: essential hypertension Diabetes E11.9 GERD (gastroesophageal reflux disease) K21.9 Esophagitis presence: esophagitis presence not specified
[2021-01-24] VITALS: BP 122/72; PULSE 100; RESP 18; TEMP 36.6; O2SAT 97
[2021-01-24] MEDS: famotidine 20 mg/2 mL INJ IVP ×2 (00:51→12:18)
--- NOTE | 2021-01-24 02:00 | PC.NURSE ---
Hallucinations/Confusion: Pt still hallucinating. A&OX3, knows she is in the hospital and is asking to go home. Thinks her dog and cat . At the beginning of the shift she thought her was in the basement and now she is sobbing saying that he . Took telegraphic typewriter mechanic in her room and said her was lying in the bed. Multiple attempts to reorient patient unsuccessful.
[2021-01-24] MEDS: OLANZapine 5 mg ODT PO (03:04)
[2021-01-24 04:00] VITALS: BP 173/74; PULSE 93; RESP 17; TEMP 36.4; O2SAT 98
[2021-01-24] MEDS: enoxaparin 60 mg/0.6 mL Syringe SUBCUT ×2 (04:53→17:55)
[2021-01-24] MEDS: metoprolol tartrate 1 mg/1 mL SDV 5 mL 2.5 MG IVP ×3 (04:54→17:55)
[2021-01-24 07:04] LABS: Basophils # 0.1 10^3/uL (0.0-0.1); Basophils % 0.7 %; Eosinophils # 0.5 10^3/uL (0.0-0.8); Eosinophils % 6.2 %; Hemoglobin 13.5 g/dL (11.5-15.3); Lymphocytes # 2.9 10^3/uL (0.8-4.8); Lymphocytes % 39.8 %; Mean Corpuscular Hemoglobin 26.7 pg (28.0-34.0); Mean Corpuscular Volume 89.1 fl (81-99); Mean Platelet Volume 11.3 fL (7.4-10.4); Monocytes # 0.7 10^3/uL (0.2-0.9); Monocytes % 10.1 %; Neutrophils # 3.14 10^3/uL (1.8-7.7); Neutrophils % 42.9 %; Nucleated Red Blood Cells % 0 %; Platelet Count 202 10^3/cmm (130-400); Red Blood Count 5.05 10^6/uL (4.1-5.3); White Blood Count 7.3 10^3/uL (4.0-10.0)
[2021-01-24 07:17] VITALS: BP 151/66; PULSE 93; RESP 17; TEMP 36.7; O2SAT 97
[2021-01-24 07:26] LABS: Alanine Aminotransferase 21 U/L (0-33); Albumin Level 3.7 g/dL (3.5-5.2); Alkaline Phosphatase 109 IU/L (35-105); Aspartate Amino Transferase 34 U/L (0-32); Blood Urea Nitrogen 14 mg/dL (8-23); Calcium 8.6 mg/dL (8.5-10.5); Carbon Dioxide 22 mmol/L (22-29); Chloride 101 mmol/L (98-107); Globulin 3.1 g/dL (1.3-4.6); Glucose 138 mg/dL (65-115); Magnesium 1.7 mg/dL (1.7-2.3); Osmolality Calculated 291 mOsm/kg (285-295); Phosphorus 2.9 mg/dL (2.5-4.5); Sodium 139 mmol/L (136-145); Total Bilirubin 0.4 mg/dL (0.15-1.2); Total Protein 6.8 g/dL (6.6-8.7)
[2021-01-24 07:27] LABS: Anion Gap 19.6 (5-19); Potassium 3.6 mmol/L (3.5-5.1)
[2021-01-24 11:08] LABS: C Reactive Protein 19.7 mg/L (0.0-4.9)
[2021-01-24 11:14] LABS: Procalcitonin 0.09 ng/mL (0-0.5)
[2021-01-24 11:33] VITALS: BP 139/77; PULSE 96; RESP 17; TEMP 36.4; O2SAT 99
--- NOTE | 2021-01-24 11:50 | CT_ITS ---
WS: [id number] CT HEAD TECHNIQUE: Noncontrast CT of the head obtained from the skullbase to the vertex. CLINICAL INFORMATION: ams COMPARISON: 2018 DLP: 1659.[address] scans at [facility] use at least one of these dose optimization techniques: automated e xposure control; mA and/or kV adjustment per patient size (includes targeted exams where dose is matc hed to clinical indication); or iterative reconstruction. FINDINGS: Some images degraded by patient motion and beam hardening artifact. No evidence of intracranial hemorrhage or mass effect. Ventricular system and basal cisterns are bustillos nt. Mild small vessel changes with mild parenchymal volume loss. No extra-axial fluid collections. No evidence of mass or mass effect. Normal johnston-white differentiation. Paranasal sinuses and mastoid air cells are well aerated. .Normal visualized soft tissues. CT/CT head wo con* [id number] IMPRESSION: 1. No evidence of intracranial hemorrhage or mass effect. 2. Mild small vessel changes. Mild parenchymal volume loss. 3. No acute intracranial findings.
[2021-01-24] MEDS: BuSPIRONE 10 mg Tablet 5 MG PO ×2 (14:42→17:56)
[2021-01-24 16:00] VITALS: BP 155/72; PULSE 99; RESP 17; TEMP 36.6; O2SAT 97
--- NOTE | 2021-01-24 17:40 | W.PM.PSYCONS ---
Providers/Reason for Consult Consulting Physican/Specialty*: Chirag John MD. Psychiatry. Reason for Consult*: Altered mental status. Attending Physician: Gage Sewell MD Primary Care Provider: Baldomero Britt MD Psych Consult HPI History of Present Illness Anju Duffy is a 75 year old female who was seen in the emergency department with the following report: Chief Complaint: Abdominal Pain Stated Complaint: Sob, pressure under breasts Time Seen by Provider: 01/19/21 20:24 Source: patient Mode of arrival: ambulatory Limitations: no limitations History of Present Illness: HPI narrative: 75-year-old female who states she has had multiple bowel obstructions and surgeries in the past states that throughout the day she had increasing abdominal pain is currently in severe pain she rates a 10 out of 10 states this feels like her previous bowel obstruction she had nausea no vomiting she is had a bowel movement today. Pain is worse with movement improved with rest. Associated Symptoms: Reports nausea; Denies chills, dysuria and fever(s) Related Data: Date of Last Menstrual Period: 06/02/20. He was admitted to the [facility] department of treatment of those issues. A psychiatric consult was requested secondary to altered mental status. Patient was in bed with her in the room who was the primary historian but in general her answers I do not know and marked with confusion. He reports that she has had significant difficulties secondary to multiple surgeries and significant postsurgical sequela including multiple obstructions. She presents again with a bowel obstruction. He reports that on admission she had and that the reason why she was somewhat loopy. He reports that she got better each day and then last night there was another incident where she got a medication which turned out to be a different medication but seem to have a similar response. He reports that after that she was being the way that she was being now. What he meant by that was that she was confused at times about where she was. At times during our conversation she would get up and walk out of the area reporting that she went to the kitchen to get something to drink. A couple times she looked at the containers sitting to the side of the sitter and got confused as to whether they were dogs and called the dogs over. They acknowledge that she struck but that this represented a change. We did discuss the difference between dementia and delirium. They denied any contributory history or noteworthy history that denies any long history of psychiatric illness. Meds Current Medications: Current Medications Generic Name Dose Route Start Last Admin Trade Name Freq PRN Reason Stop Dose Admin Buspirone HCl 5 mg 01/24/21 12:45 01/24/21 17:56 Buspirone 10 Mg Tablet PO 5 mg BID ROCIO Administration Lidocaine HCl 5 ml 01/21/21 16:33 01/22/21 02:04 Lidocaine 2% Vis cous 15 Ml Udc MUCOUS MEM 5 ml Q6H PRN Administration SORE THROAT Nitroglycerin 0.4 mg 01/20/21 04:53 01/20/21 10:11 Nitroglycerin 0. 4 Mg Sublingual Ta blet SUBLINGUAL 1 tab Q5M PRN Administration CHEST PAIN Ondansetron HCl 4 mg 01/20/21 00:16 01/22/21 15:40 Ondansetron 2 Mg /Ml Sdv 2 Ml IVP 4 mg Q6H PRN Administration vomiting, or N/V if npo Scopolamine 1 patch 01/21/21 20:00 01/25/21 01:24 Scopolamine 1.5 Patch TRANSDERMA Not Given Q3D ROCIO PFSH NPU PFSH: Medical History Abdominal pain Adhesion of mesentery Atrial fibrillation Chest pain Colonic diverticular abscess Congestive heart failure Coronary disease Diabetes Diet controlled Discitis, unspecified, lumbar region DM II (diabetes mellitus, type II), controlled GUILLAUME (generalized anxiety disorder) GERD (gastroesophageal reflux disease) Gout Hypertension Intermittent small bowel obstruction Migraine MRSA bacteremia Myocardial infarction Myopericarditis Nausea & vomiting Necrotizing fasciitis Non-ST elevation NE (NSTEMI) Osteoarthritis Pain of both breasts Pericarditis Scleroderma Small bowel obstruction Surgical History H/O colectomy H/O hernia repair History of cholecystectomy S/P dilatation of esophageal stricture S/P ANH-BSO Family History Mother Congestive heart failure Social History Smoking and tobacco status: former smoker Alcohol intake: never Mental Status Exam MSE Comments: There is a well-nourished well-developed elderly white female with adequate grooming and eye contact. No abnormal movements. Cooperative with exam in no acute distress. Speech was normal rate and volume. Mood described as good affect affect mostly organized. Thought content: Patient denied suicidal or homicidal ideation, there were no delusions reported or noted, she did have periods of confusion where she believes she was at home or had illusionary content, she denied auditory or visual hallucinations but again did have some illusions. Attention and concentration were mostly intact and memory was unreliable. She was alert and oriented to person and place. Insight and judgment were limited, impulse control was fair. Vitals/I&O/Wt Last Vital Signs Temp 97.8 F 01/24/21 16:00 Pulse 99 01/24/21 16:00 Resp 17 01/24/21 16:00 BP 155/72 01/24/21 16:00 Pulse Ox 97 01/24/21 16:00 01/24/21 14:59 Intake Total 1355 / 1355 Balance 1355 / 1355 Data NPU Micro: Micro: Microbiology 01/24/21 13:28 Blood Culture - Pr eliminary Blood [facility]IMEN [facility] 01/24/21 13:32 Blood Culture - Pr eliminary Blood SPECIMEN [facility] Microbiology 01/24/21 13:28 Blood Blood Culture - Preliminary SPECIMEN COLLECTED 01/24/21 13:32 Blood Blood Culture - Preliminary SPECIMEN COLLECTED A&P Assessment and plan (1) Congestive heart failure: Status: Acute (2) Atrial fibrillation: Status: Acute Qualifiers: Atrial fibrillation type: paroxysmal Qualified Code(s): I48.0 - Paroxysmal atrial fibrillation (3) Hypertension: Status: Acute Qualifiers: Hypertension type: essential hypertension Qualified Code(s): I10 - Essential (primary) hypertension (4) Diabetes: Status: Acute (5) Low back pain at multiple sites: Status: Acute (6) Discitis of lumbar region: Status: Acute (7) Sinus pause: Status: Acute (8) Protein-energy malnutrition: Status: Acute (9) GERD (gastroesophageal reflux disease): Status: Acute Qualifiers: Esophagitis presence: esophagitis presence not specified Qualified Code(s): K21.9 - Gastro-esophageal reflux disease without esophagitis (10) Chronic nausea: Status: Chronic Additional A&P Information This is a 75-year-old male with a long history of multiple medical comorbidities including frequent surgeries with difficult recoveries with recent altered mental status. 1. Continue current medication. 2. Presentation and her behaviors are consistent with delirium superimposed on dementia. 3. Agree with treatment team that if she shows improvement tomorrow that discharge be reasonable possible with her going home with no changes but just avoiding any new medications that could have iatrogenic impact. 4. Please contact if additional evaluation desired. Attestations NPU Medical Necessity Statement*: N/A. Please see primary team note for medical necessity. Coding Level of Care Code Acute Administrative Asst for [facility] Fwd Diagnoses Congestive heart failure I50.9 Atrial fibrillation I48.0 Atrial fibrillation type: paroxysmal Hypertension I10 Hypertension type: essential hypertension Diabetes E11.9 Low back pain at multiple sites M54.50 Discitis of lumbar region M46.46 Sinus pause I45.5 Protein-energy malnutrition E46 GERD (gastroesophageal reflux disease) K21.9 Esophagitis presence: esophagitis presence not specified Chronic nausea R11.0
--- NOTE | 2021-01-24 17:56 | P.PN_ITS ---
Subjective Subjective: Interval history: Patient was seen this morning, with -According to nursing staff, patient had episodes of increased agitation, confusion overnight, was seeing things are not there, such as as an bugs on her bed, she was talking to her family numbers that were not there, -This morning she was agitated, she wanted to leave the hospital, she was wandering the hallways of the hospital -She was able to be calmed down, and she sat in the nurses supervisors room -I was able to interview patient and in the room -Patient is alert to person, to place, to time -She tells me that she is a bit upset about being here in the hospital, she understands that she has dementia, that her dementia is worsening, and she actually does understand that she is seeing things that are not there, that her dementia related, -She has a lot of knowledge about her dementia, she understands that it is worsening -During my examination, she did get up, and she thought the shadows from a candy bowl were a little turtles, but she soon realized that it was just a shadow, and she realized that it was a hallucination, and was able to sit back down -During my examination, patient and her were having an argument about marital problems, she said that they were possibly proceeding with divorces earlier on, and discussions about division of assets, however they decided to s chacorta together -She tells me that she is very happy with her , she tells me that he has 1 in 1 million, but sometimes he does too much -Her is concerned with her current behaviors, he feels that he cannot take care of her if she is like this at home -I advised patient that she has been here in the hospital for the last 4 days, with white hi, not a lot of indicators of time, people wearing facemasks, with this ongoing down sooner, likely her confusion agitation is related to sundowning, related to her dementia -Overnight she did receive Zyprexa and the night before she received Ativan and this seemed to make her agitation worse which is quite difficult -And I would recommend against using Zyprexa or any Ativan the next time as it does not seem to improve her hallucinations, simply talking to her and talking her down seems to help -When I also learned from the is is at has had recurrent bowel obstruction multiple surgeries unfortunately she also had bowel perforation after lysis of adhesions, resulting in her requiring multiple abdominal drains, and TPN, she was eventually seen at [facility], and had most of the drains removed, she also had bacteremia resulting in discitis, and she was on antibiotics for 9 weeks, she just finished antibiotics, she had her PICC line removed, she is followed up with infectious disease and they says that there is no evidence of her having recurrent infection, and eventually came off TPN, and was clinically doing better, was back at home, when on they ate out and she had some cauliflower and corn and that seemed to agitate her symptoms and she came in with her bowel obstruction -I advised family that her urinalysis is negative for UTI, chest x-ray no focal pneumonia, her blood work is within normal limits, she is afebrile, normotensive, her bowel suction has seemed to resolve -What I can glean from my discussion is is that they care and love each other, and they try to their best to help 1 another, but given her progressing dementia and the acute worsening while she is here in the hospital this has put a strain in the relationship, and has brought out previous marital issues -Her does tell me that she has had episodes of confusion at home, and the BuSpar did help to some degree Vitals/I&O/Wt Last Vital Signs Temp 97.8 F 01/24/21 16:00 Pulse 99 01/24/21 16:00 Resp 17 01/24/21 16:00 BP 155/72 01/24/21 16:00 Pulse Ox 97 01/24/21 16:00 01/24/21 01/24/21 01/24/21 06:59 14:59 22:59 Intake Total 318.75 / 1798.75 1355 / 1355 Balance 318.75 / 1798.75 1355 / 1355 Physical Exam Const: COMMON NORMALS: no acute distress and patient oriented x3 Resp: COMMON NORMALS: normal respiratory effort, No retractions, No use of accessory muscles and clear to auscultation bilaterally AUSCULTATION: clear to auscultation bilaterally Cardio: COMMON NORMALS: regular rate, regular rhythm, S1 normal heart sound present and S2 normal heart sound present RATE: regular rate RHYTHM: regular rhythm HEART SOUNDS: S1 normal heart sound present and S2 normal heart sound present GI: COMMON NORMALS: Normal to inspection, nondistended, normoactive bowel sounds present, Soft to palpation, non-tender and No hepatosplenomegaly present PALPATION: Yes Soft to palpation and Yes No hepatosplenomegaly present Extremity: COMMON NORMALS: no pedal edema Neuro: COMMON NORMALS: patient oriented x3 Psych: COMMON NORMALS: mental status grossly normal Data : 01/24/21 06:54 01/24/21 06:54 Micro: Microbiology 01/24/21 13:28 Blood Culture - Preliminary Blood SPECIMEN COLLECTED 01/24/21 13:32 Blood Culture - Preliminary Blood SPECIMEN COLLECTED A&P Assessment and plan (1) Small bowel obstruction: NG tube has been discontinued Currently on full liquid diet Continue pain medication Zofran as needed Appreciate surgery input Status: Acute (2) Atrial fibrillation: History of atrial fib: Currently in sinus rhythm. Continue Lovenox therapeutic for anticoagulation.We will switch to to Eliquis on discharge. Metoprolol tartrate as needed Status: Acute Qualifiers: Atrial fibrillation type: paroxysmal Qualified Code(s): I48.0 - Parox ysmal atrial fibrillation (3) Congestive heart failure: HFrEF : Currently compensated Monitor intake output Daily weight K>4, MG>2 Status: Acute (4) Elevated troponin: Likely type II NM: Patient recently had cardiac cath:Which showed nonocclusive coronary artery disease. Repeat limited 2D echo to assess the LV function. Shows normalization of LV function. S/L nitro as needed. Morphine as needed Status: Acute (5) Hypertension: Continue hydralazine and labetalol as needed Status: Acute Qualifiers: Hypertension type: essential hypertension Qualified Code(s): I10 - Essential (primary) hypertension (6) Diabetes: Status: Acute (7) GERD (gastroesophageal reflux disease): Status: Acute Qualifiers: Esophagitis presence: esophagitis presence not specified Qualified Code(s): K21.9 - Gastro-esophageal reflux disease without esophagitis Additional A&P Information 75 year old female with past medical history of prior abdominal surgeries and prior 5 episodes of small bowel obstruction requiring 2 surgeries in the past who is presenting to emergency room with complaints of abdominal pain and vomiting. altered mental status, does report a history of dementia, UA unremarkable for UTI, chest x-ray no focal pneumonia, no fevers overnight, no other focal signs of infection, no calf pain, no hemoptysis, does not require any oxygen, CT of the head unremarkable -Likely secondary to Ativan, Zyprexa, and underlying dementia -Would hold off on any antipsychotic medications, Haldol if absolutely necessary -Monitor mentation -Have consulted Dr. John, appreciate input -Continue home BuSpar -Hopefully can discharge in the next 24 hours as mentation improves History of discitis, status post PICC line, 6 weeks of antibiotics, History of bowel obstruction status post bowel perforation, status post multiple abdominal drains, and TPN, drains removed, came off TPN GI prophylaxis. Famotidine IV. CHF. Currently stable. Hypertension, uncontrolled. Will order as needed labetalol and as needed hydralazine. History of A. fib. Currently in sinus. Continue home medication DVT prophylaxis. Switch to Eliquis CODE STATUS. full code. The plan of care was discussed with the patient and her . They verbalized understanding and agreement. Attestations Medical Necessity Statement*: Patient requires hospitalization due to altered mental status secondary to dementia, small bowel obstruction Coding Level of Care Code Acute Lathe Operator Contact Lens for Chg Fwd Diagnoses Small bowel obstruction K56.609 Atrial fibrillation I48.0 Atrial fibrillation type: paroxysmal Congestive heart failure I50.9 Elevated troponin R77.8 Hypertension I10 Hypertension type: essential hypertension Diabetes E11.9 GERD (gastroesophageal reflux disease) K21.9 Esophagitis presence: esophagitis presence not specified
[2021-01-24 20:00] VITALS: BP 154/76; PULSE 106; RESP 18; TEMP 36.7; O2SAT 99
[2021-01-25] VITALS: BP 166/83; PULSE 116; RESP 17; TEMP 36.6; O2SAT 98
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
[2021-01-25 10:17] LABS: Basophils % 0.7 %; Eosinophils # 0.4 10^3/uL (0.0-0.8); Eosinophils % 6.6 %; Hematocrit 40.4 % (37.0-47.0); Hemoglobin 12.9 g/dL (11.5-15.3); Lymphocytes # 2.7 10^3/uL (0.8-4.8); Lymphocytes % 43.9 %; Mean Corpuscular HGB Conc 31.9 g/dL (30.0-36.0); Mean Corpuscular Hemoglobin 26.5 pg (28.0-34.0); Mean Corpuscular Volume 83.1 fl (81-99); Mean Platelet Volume 11.3 fL (7.4-10.4); Monocytes # 0.6 10^3/uL (0.2-0.9); Monocytes % 10.6 %; Neutrophils # 2.29 10^3/uL (1.8-7.7); Neutrophils % 37.9 %; Nucleated Red Blood Cells % 0 %; Platelet Count 184 10^3/cmm (130-400); Red Blood Count 4.86 10^6/uL (4.1-5.3); Red Cell Distribution Width 16.1 % (12.1-15.1)
[2021-01-25 11:02] LABS: Alanine Aminotransferase 19 U/L (0-33); Albumin Level 3.3 g/dL (3.5-5.2); Alkaline Phosphatase 95 IU/L (35-105); Blood Urea Nitrogen 10 mg/dL (8-23); Calcium 8.4 mg/dL (8.5-10.5); Carbon Dioxide 20 mmol/L (22-29); Globulin 2.7 g/dL (1.3-4.6); Glucose 98 mg/dL (65-115); Magnesium 1.8 mg/dL (1.7-2.3); Phosphorus 3.9 mg/dL (2.5-4.5); Total Bilirubin 0.7 mg/dL (0.15-1.2)
[2021-01-25 11:07] LABS: Aspartate Amino Transferase 30 U/L (0-32)
--- NOTE | 2021-01-25 11:21 | USCV_ITS ---
Anju Duffy Age: 75 Gender: F : 1945 Exam Date: 01/25/2021 13:00 Ordering Phys: Gage Sewell MD Technologist: CARLOS [place]am Location[place] [facility] [place]: AMS Risk Factors: Previous Vascular Surgery: Right Brachial BP: / Left Brachial BP: / Right Left Velocity (cm/s) Spectral Plaque Velocity (cm/s) Spectral Plaque Syst/Diast Broadening Syst/Diast Broadening 93.00/ 13.50 Prox CCA 79.40 / 14.30 93.90/ 16.10 Mid CCA 110.30/ 28.70 104.90/21.00 Distal CCA 89.30 / 18.70 57.30/ 9.40 Prox ICA 67.60 / 21.80 94.00/ 13.70 Mid ICA 64.00 / 19.10 72.60/ 17.10 Distal ICA 79.80 / 23.20 88.50 ECA 108.10 1.00 ICA/CCA 0.58 Antegrade Vertebral Antegrade 52.10/ 10.30 cm/s 24.40/ 6.40 cm/s Tri Subclavian Tri 145.5 205.1 0 0 CONCLUSIONS Right ICA stenosis <50%. Mild atheromatous plaque right carotid bulb/ICA. Left ICA stenosis <50%. Mild atheromatous plaque left carotid bulb/ICA. Normal antegrade Doppler flow noted in the right vertebral artery. Normal antegrade Doppler flow noted in the left vertebral artery. Chandler Pride MD (Electronically Signed) Final Date: 25 January 2021 14:50 S
[2021-01-25] MEDS: lisinopril 5 mg Tablet PO (11:23)
[2021-01-25] MEDS: apixaban 5 mg Tablet PO (11:23)
[2021-01-25] MEDS: carvedilol 12.5 mg Tablet PO (11:23)
[2021-01-25] MEDS: docusate sodium 100 mg Capsule PO (11:23)
[2021-01-25] MEDS: BuSPIRONE 10 mg Tablet 5 MG PO (11:23)
--- NOTE | 2021-01-25 11:46 | PC.SOCIAL ---
IMM Update pg 2 of IMM updated and reviewed w/ patient. Copy provided.
--- NOTE | 2021-01-25 11:54 | P.DS_ITS ---
Discharge Providers Date of Admission: 01/20/21 00:01 Date of Discharge: January 25, 2021 Attending Provider at Admission: Filippo Albert Attending Provider at Discharge: Gage Sewell MD Primary Care Provider: Baldomero Britt MD Diagnoses at Discharge Discharge Diagnosis (1) Small bowel obstruction: Status: Acute (2) Atrial fibrillation: Status: Acute Qualifiers: Atrial fibrillation type: paroxysmal Qualified Code(s): I48.0 - Pa roxysmal atrial fibrillation (3) Congestive heart failure: Status: Acute (4) Elevated troponin: Status: Acute (5) Hypertension: Status: Acute Qualifiers: Hypertension type: essential hypertension Qualified Code(s): I10 - Essential (primary) hypertension (6) Diabetes: Status: Acute Permanent problem details: Diet controlled (7) GERD (gastroesophageal reflux disease): Status: Acute Qualifiers: Esophagitis presence: esophagitis presence not specified Qualified Code(s): K21.9 - Gastro-esophageal reflux disease without esophagitis Reason for Visit Reason for Visit: Sob, pressure under breasts Hospital Course Hospital Course 75 year old female with past medical history of prior abdominal surgeries and prior 5 episodes of small bowel obstruction requiring 2 surgeries in the past who is presenting to emergency room with complaints of abdominal pain and vomiting. altered mental status, does report a history of dementia, UA unremarkable for UTI, chest x-ray no focal pneumonia, no fevers overnight, no other focal signs of infection, no calf pain, no hemoptysis, does not require any oxygen, CT of the head unremarkable -Likely secondary to Ativan, Zyprexa, and underlying dementia -Would hold off on any antipsychotic medications, Haldol if absolutely necessary -Monitor mentation -Have consulted Dr. John -Continue home BuSpar -Recommend patient follow-up with neurology, for dementia evaluation, MRI History of discitis, status post PICC line, 6 weeks of antibiotics, History of bowel obstruction status post bowel perforation, status post multiple abdominal drains, and TPN, drains removed, came off TPN -recurrent SBO during this hospitalization -general surgery consulted -patient was medically managed, with bowel rest, clinically improved, had adequate bowel movements -discharged on home bowel regimen CHF. Currently stable. Hypertension,controlled. History of A. fib. Currently in sinus. Continue home medication Physical Exam Const: COMMON NORMALS: no acute distress and patient oriented x3 Resp: COMMON NORMALS: normal respiratory effort, No retractions, No use of accessory muscles and clear to auscultation bilaterally AUSCULTATION: clear to auscultation bilaterally Cardio: COMMON NORMALS: regular rate, regular rhythm, S1 normal heart sound present and S2 normal heart sound present RATE: regular rate RHYTHM: regular rhythm HEART SOUNDS: S1 normal heart sound present and S2 normal heart sound present GI: COMMON NORMALS: Normal to inspection, nondistended, normoactive bowel sounds present, Soft to palpation and non-tender PALPATION: Yes Soft to palpation Extremity: COMMON NORMALS: no pedal edema Neuro: COMMON NORMALS: patient oriented x3 Psych: COMMON NORMALS: mental status grossly normal Discharge Data Data Completed and Pending: Completed Studies During Hospitalization Category Date Time Status CT abdomen pelvis w con* [id number] Urge nt Cat Scan 01/19/21 20:[address] head wo con* 7 0450 Routine Cat Scan 01/24/21 11:50 Completed XR abdomen min 2V [id number] Urgent Exams 01/22/21 09:57 Completed XR chest 1V chel ble [id number] Routine Exams 01/23/21 11:31 Completed XR chest 1V chel ble [id number] Stat Exams 01/19/21 19:34 Completed XR chest 1V chel ble [id number] Stat Exams 01/21/21 03:33 Completed XR chest 1V chel ble [id number] Urgent Exams 01/19/21 22:10 Completed CV. echo limited [id number] Routine Ultrasound 01/20/21 14:20 Completed Pending at discharge Category Date Time Status Blood Culture Sta t Lab 01/24/21 13:28 Results Complete Blood Co unt w/Auto AM LABS Lab 01/26/21 04:00 Ordered Comprehensive Met abolic Panel AM LA BS Lab 01/25/21 09:54 Results Comprehensive Met abolic Panel AM LA BS Lab 01/26/21 04:00 Ordered Erythrocyte Sedim entation Rate Rout ine Lab 01/24/21 13:28 Received Magnesium AM LABS Lab 01/25/21 09:54 Results Magnesium AM LABS Lab 01/26/21 04:00 Ordered Phosphorus AM LAB S Lab 01/25/21 09:54 Results Phosphorus AM LAB S Lab 01/26/21 04:00 Ordered CV carotid duplex BI* [id number] Stat Ultrasound 01/25/21 11:21 Ordered Labs from last 24 hours 01/25/21 01/25/2101/24/21 09:54 09:54 13:28 WBC 6.0 RBC 4.86 Hgb 12.9 Hct 40.4 MCV 83.1 D MCH 26.5 L MCHC 31.9 D RDW 16.1 H Plt Count 184 MPV 11.3 H Neut % (Auto) 37.9 Lymph % (Auto) 43.9 [place] % (Auto) 10.6 Eos % (Auto) 6.6 Baso % (Auto) 0.7 Neut # (Auto) 2.29 Lymph # (Auto) 2.7 [place] # (Auto) 0.6 Eos # (Auto) 0.4 Baso # (Auto) 0.0 Nucleated RBC % (a uto) 0 Nucleated RBCs # 0.0 ESR Pending Sodium Pending Potassium Pending Chloride Pending Carbon Dioxide 20 L Anion Gap Pending BUN 10 Creatinine 0.4 L GFR Calculation Not Reportable Glucose 98 Calculated Osmolal ity Pending Calcium 8.4 L Phosphorus 3.9 Magnesium 1.8 Total Bilirubin 0.7 AST 30 ALT 19 Alkaline Phosphata se 95 Total Protein 6.0 L Albumin 3.3 L Globulin 2.7 Vitals: Last Vital Signs Temp 97.9 F 01/25/21 00:00 Pulse 116 H 01/25/21 00:00 Resp 17 01/25/21 00:00 BP 166/83 01/25/21 00:00 Pulse Ox 98 01/25/21 00:00 Discharge Plan Discharge Patient Disposition: Home Condition: Stable Prescriptions: Continued lisinopril 5 mg tablet 5 mg PO BID Qty: 180 RF: 2 ondansetron HCl 4 mg tablet 4 mg PO Q12H PRN (Reason: nausea and vomiting) Qty: 60 RF: 0 Eliquis 5 mg tablet 5 mg PO BID 90 Days Qty: 180 RF: 1 carvedilol 12.5 mg tablet 12.5 mg PO BID Qty: 180 RF: 3 buspirone 10 mg Tablet 5 mg PO BID RF: 0 docusate sodium 100 mg Capsule 100 mg PO BID RF: 0 Changed lactulose 20 gram/30 mL solution 15 g PO Q12H PRN (Reason: Acid Reflux) 30 Days Qty: 1500 RF: 2 Discontinued sumatriptan succinate 100 mg tablet See Rx Instructions PO .COMPLEX PRN (Reason: Migraine Headache) RF: 0 Discharge Orders: Discharge Order (Routine); Ordered 01/25/21 Ordered By: Gage Sewell Referrals: Tamara Ybarra MD [Physician] - 03/01/21 12:00 pm (dementia ) Baldomero Britt MD [Primary Care Provider] - 02/01/21 11:30 am Discharge Diet: Regular Discharge Activity: Resume usual activity Patient Instructions: Buspirone (By mouth), Opioid Safety Activity Restrictions/Additional Instructions: -follow up with primary care physician in 2 weeks -folow up with neurology in 4-6 weeks, consider MRI - Discharge Attestations Time Spent in Discharge Care*: less than 30 min Status at Discharge: Cognitive status at discharge: cognitively intact , Behavioral status at discharge: cooperative , Quality Metrics Clinical Quality Measures During this hospital stay, did patient experience: None Coding Level of Care Code Acute [facility] [place] note Diagnoses Small bowel obstruction K56.609 Atrial fibrillation I48.0 Atrial fibrillation type: paroxysmal Congestive heart failure I50.9 Elevated troponin R77.8 Hypertension I10 Hypertension type: essential hypertension Diabetes E11.9 GERD (gastroesophageal reflux disease) K21.9 Esophagitis presence: esophagitis presence not specified
[2021-01-25 12:00] VITALS: BP 112/66; PULSE 100; RESP 17; TEMP 36.5; O2SAT 94
[2021-01-25 12:28] LABS: Anion Gap 19.1 (5-19); Chloride 104 mmol/L (98-107); Osmolality Calculated 287 mOsm/kg (285-295); Potassium 4.1 mmol/L (3.5-5.1); Sodium 139 mmol/L (136-145)
[2021-01-25 16:10] VITALS: BP 112/66; PULSE 100; RESP 17; TEMP 36.5; O2SAT 94
[2021-01-27 14:05] LABS: Erythrocyte Sedimentation Rate 6 mm/hr (0-15)
== END 2021-01-25 16:10 | disposition home or self-care (01) | DRG 388 ==
LOC: ER 21:52 → MEDSURG 01-20 15:20
PROVIDERS: Internal Medicine; Admitting Provider Internal Medicine; Emergency Provider Emergency Medicine; PCP Family Medicine; Visit Provider Family Medicine
DX: K56.51 Intestinal adhesions [bands], with partial obstruction (principal); I21.A1 Myocardial infarction type 2; I50.22 Chronic systolic (congestive) heart failure; I42.8 Other cardiomyopathies; I31.9 Disease of pericardium, unspecified; I48.0 Paroxysmal atrial fibrillation; I11.0 Hypertensive heart disease with heart failure; I25.10 Atherosclerotic heart disease of native coronary artery without angina pectoris; E11.9 Type 2 diabetes mellitus without complications; F41.1 Generalized anxiety disorder; K21.9 Gastro-esophageal reflux disease without esophagitis; M10.9 Gout, unspecified; Z86.14 Personal history of Methicillin resistant Staphylococcus aureus infection; M19.90 Unspecified osteoarthritis, unspecified site; Z90.49 Acquired absence of other specified parts of digestive tract; Z87.891 Personal history of nicotine dependence; Z79.01 Long term (current) use of anticoagulants; F03.90 Unspecified dementia, unspecified severity, without behavioral disturbance, psychotic disturbance, mood disturbance, and anxiety
CPT/HCPCS: 36415; 70450; 71045; 74019; 74177; 80048; 80053; 81001; 83605; 83735; 84100; 84145; 84443; 84484; 85025; 85610; 85651; 86140; 87040; 93005; 93308; 93880; 96372; 99285; J0360; J1170; J1650; J2060; J2270; J2405; J2550; J3490; Q9967

== ENCOUNTER 2021-01-30 11:33 | Outpatient (CLI) | payer MEDICARE, OTHER, SELFPAY ==
[2021-01-30 12:05] LABS: Basophils # 0.1 10^3/uL (0.0-0.1); Basophils % 0.6 %; Eosinophils # 0.2 10^3/uL (0.0-0.8); Eosinophils % 2.2 %; Hematocrit 44.2 % (37.0-47.0); Hemoglobin 13.7 g/dL (11.5-15.3); Lymphocytes % 23.1 %; Mean Corpuscular Hemoglobin 26.7 pg (28.0-34.0); Mean Platelet Volume 11.2 fL (7.4-10.4); Monocytes # 0.7 10^3/uL (0.2-0.9); Monocytes % 8.1 %; Neutrophils # 5.61 10^3/uL (1.8-7.7); Neutrophils % 65.5 %; Nucleated Red Blood Cells % 0 %; Platelet Count 284 10^3/cmm (130-400); Red Blood Count 5.14 10^6/uL (4.1-5.3); Red Cell Distribution Width 16.4 % (12.1-15.1); White Blood Count 8.6 10^3/uL (4.0-10.0)
[2021-01-30 12:45] LABS: C Reactive Protein 1.4 mg/L (0.0-4.9)
[2021-02-06 12:13] LABS: Erythrocyte Sedimentation Rate 2 mm/hr (0-15)
== END 2021-01-30 11:34 | disposition home or self-care (01) ==
PROVIDERS: Internal Medicine; PCP Family Medicine; Visit Provider Physician Assistant Medical
DX: M46.20 Osteomyelitis of vertebra, site unspecified (principal); R78.81 Bacteremia
CPT/HCPCS: 85025; 85651; 86140

== ENCOUNTER → 2021-02-16 15:02 | Outpatient (BNVA) | payer MEDICARE, OTHER, SELFPAY | PROVIDERS: PCP Family Medicine; Visit Provider Orthopaedic Surgery | DX: M46.46 Discitis, unspecified, lumbar region (principal); M54.50 Low back pain, unspecified; M85.88 Other specified disorders of bone density and structure, other site | CPT/HCPCS: 72100 ==

== ENCOUNTER 2021-02-26 23:03 | Emergency (ER) | payer MEDICARE, OTHER, SELFPAY ==
[2021-02-26 23:40] VITALS: BP 161/81; PULSE 64; RESP 18; TEMP 36.6; O2SAT 99; BMI 25.6
--- NOTE | 2021-02-27 02:09 | W.ED.HA ---
HPI - Headache General: Chief Complaint: Headache Stated Complaint: Headache\ Blood Pressure 180\ Time Seen by Provider: 02/27/21 01:46 History of Present Illness: HPI Narrative: Patient is a 76-year-old female comes to the ED with headache. Patient has a past medical history of heart failure, A. fib, hypertension and migraines. Patient is currently on a blood thinner apixaban. Headache started approximately 3 days ago and has been gradual in its progression. Today she says her headache is a 10 out of 10 and is the worst headache she has ever had. She states that is different than her past migraines. She took some sumatriptan yesterday and it did not improve headache. She says the headache feels like pain directly behind her eyes bilaterally and in her face just below her eyes. She describes it to is like a pressure in her sinuses. Patient said she did have a cold and had some nasal congestion and drainage started about a week ago and it improved and then this headache started after that. This morning patient took some Tylenol to help with headache. Denies any neurological symptoms such as numbness tingling or weakness to face or extremities, vision changes. Patient just started a new medication Isosorbide mononitrate approximately 3 days before onset of headache. Denies any chest pain, shortness of breath, bladder or bowel symptoms, abdominal pain, nausea/vomiting. Denies any recent falls, dizziness or head trauma. Associated symptoms: Deny chest pain, fever(s), nausea, rash or vomiting Review of Systems Const: Denies: fever(s), chills or fatigue Eyes: Denies: change in vision or eye discomfort ENMT: Reports: sinus pain; Denies: throat pain, odynophagia, nasal discharge or nasal congestion Card: Denies: chest pain, palpitations, edema, swelling of feet/ankles, dyspnea on exertion or orthopnea Resp: Denies: dyspnea, productive cough or non-productive cough GI: Denies: abdominal pain, nausea, vomiting, diarrhea, constipation or hematochezia : Denies: flank pain, dysuria or hematuria Musc: Denies: neck pain, back pain or extremity swelling Skin/Breast: Denies: rash or new lesions Neuro: Reports: headache(s); Denies: numbness in extremities, weakness in extremities, difficulty walking, frequent falls, dizziness or vertigo PFS ED PFSH: Medical History Abdominal pain Adhesion of mesentery Atrial fibrillation Chest pain Colonic diverticular abscess Congestive heart failure Coronary disease Diabetes Diet controlled Discitis, unspecified, lumbar region DM II (diabetes mellitus, type II), controlled GUILLAUME (generalized anxiety disorder) GERD (gastroesophageal reflux disease) Gout Hypertension Intermittent small bowel obstruction Migraine MRSA bacteremia Myocardial infarction Myopericarditis Nausea & vomiting Necrotizing fasciitis Non-ST elevation [place] (NSTEMI) Osteoarthritis Pain of both breasts Pericarditis Scleroderma Small bowel obstruction Surgical History H/O colectomy H/O hernia repair History of cholecystectomy S/P dilatation of esophageal stricture S/P ANH-BSO Family History Mother Congestive heart failure Social History Alcohol intake: never Female Reproductive History: Date of last menstrual period: 06/02/20 Physical Exam Const: COMMON NORMALS: no acute distress, patient oriented x3, healthy appearing and alert GENERAL APPEARANCE: cooperative and comfortable HENMT: COMMON NORMALS: normocephalic HEAD & SCALP: normocephalic; no Santiago's sign and no raccoon eyes FACE & SINUS: Facial tenderness on exam of face and sinuses bilaterally forehead and maxilla MOUTH: Normal oral and palatal mucosa present THROAT: posterior oropharynx normal and uvula midline Eye: COMMON NORMALS: Equal, round and reactive pupils present, EOMs intact bilaterally and conjunctivae normal CONJUNCTIVA: Yes conjunctivae normal PUPIL: Yes Equal, round and reactive pupils present Neck/C-Spine: COMMON NORMALS: supple GENERAL: Yes normal visual inspection Resp: COMMON NORMALS: normal respiratory effort, No retractions, No use of accessory muscles and clear to auscultation bilaterally AUSCULTATION: clear to auscultation bilaterally Cardio: COMMON NORMALS: regular rate, regular rhythm, S1 normal heart sound present, S2 normal heart sound present, No gallops present (Cardio), No clicks present (Cardio), No murmurs present (Cardio) and Peripheral pulses 2+ throughout RATE: regular rate RHYTHM: regular rhythm HEART SOUNDS: S1 normal heart sound present and S2 normal heart sound present PERIPHERAL PULSES: Peripheral pulses 2+ throughout GI: COMMON NORMALS: Normal to inspection, nondistended, normoactive bowel sounds present, Soft to palpation, non-tender and no masses PALPATION: Yes Soft to palpation : COMMON NORMALS: Yes no CVA tenderness BLADDER/KIDNEY EXAM: Yes no CVA tenderness Back/Pelvis: COMMON NORMALS: no CVA tenderness Extremity: COMMON NORMALS: normal to inspection Neuro: COMMON NORMALS: patient oriented x3, CN's II-XII intact bilaterally, moves all extremities, no focal motor deficits and no sensory deficits noted SENSORIUM/ORIENTATION: Yes alert SENSORY EXAM: Yes extremities (intact) MOTOR EXAM: 5/5 motor strength present throughout Skin: GENERAL SKIN EXAM: dry skin Course Reevaluation(s): Reevaluation #1: Patient stated that headache is a proved after getting hydrocodone. She feels like headache is manageable now and would like to be discharged home. Time: 03:11 Vital Signs: Vital signs: Vital Signs Temperature 97.8 F 02/26/21 23:40 Pulse Rate 64 02/26/21 23:40 Respiratory Rate 18 02/26/21 23:40 Blood Pressure 161/81 02/26/21 23:40 Pulse Oximetry 99 02/26/21 23:40 MDM - Headache MDM Narrative: Medical decision making narrative: Patient is a 76-year-old female comes to the ED with headache. Headache started 3 days ago and is located behind the eyes bilaterally. She has a history of migraines and says it is not like any of her past migraines. She also feels a pressure in pain in her sinuses bilaterally. She has been dealing with nasal drainage and congestion and a cold for over a week prior to the onset of headache. Vital stable. Exam of patient showed bilateral frontal and maxillary sinus tenderness to palpation. The rest of exam was benign and no neuro deficits noted. CT of head was done and it showed no acute findings. Patient likely has sinus headache and sinusitis she was given a dose of hydrocodone here in the ED to help with headache. She says her headache is better controlled after treatment here and she is comfortable discharging home. She was sent with a prescription for Augmentin and prednisone. Return ED precautions given. Follow-up with PCP in 7-10 days reevaluation. Patient understood and agree with plan. Imaging Data^: CT Head: Attestation: I personally reviewed and interpreted this imaging study as follows: Radiologist's impression: [place] [id number] [facility], [place] [address]IC Scan ReportSigned Patient: Ninoska Duffy #: [id number]: 1945cct#:[id number]/Sex: 76 / FADM Date: 02/26/21Loc: ERRoom/Bed:Attending Dr: Ordering Provider/Ordering MD: Pietro Grewal Date of Service: 02/27/21 Procedure(s): CT head wo con* [id number] Accession Number(s): [id number] Report Number: [id number] PROCEDURE INFORMATION: Exam: CT Head Without Contrast Exam date and time: 02/27/2021 2:08 AM Age: 76 years old Clinical indication: Pain; Headache; Additional info: Worst headache she has ever had TECHNIQUE: Imaging protocol: Computed tomography of the head without contrast. Radiation optimization: All CT scans at this facility use at least one of these dose optimization techniques: automated exposure control; mA and/or kV adjustment per patient size (includes targeted exams where dose is matched to clinical indication); or iterative reconstruction. COMPARISON: 1. CT head wo con* [id number] 2021-01-24 15:[address] head wo con* [id number] 2018-03-05 20:51 RADIATION DOSE METRICS: Total DLP (mGy-cm): 763.12 FINDINGS: Brain: Diffuse mild cerebral age related volume loss. Mild patchy low attenuation in the white matter compatible with mild chronic small vessel ischemic disease. No midline shift, mass, fluid collection, or evidence of hemorrhage. Cerebral ventricles: Ventricular enlargement proportional to volume loss. Paranasal sinuses: Visualized sinuses are unremarkable. No fluid levels. Mastoid air cells: Visualized mastoid air cells are well aerated. Bones/joints: Unremarkable. No acute fracture. Soft tissues: Unremarkable. CT/CT head wo con* [id number] IMPRESSION: Mild involutional changes, no acute intracranial abnormality. Dictated By:Anjel Vazquez MDSigned By:Anjel Vazquez MDSigned Date/Time:02/27/21 [id number]/ 0208 Discharge Plan Discharge Patient Disposition: Home Clinical Impression: Sinus headache Sinusitis Qualifiers: Sinusitis location: maxillary Chronicity: acute Recurrence: non-recurrent Qualified Code(s): J01.00 - Acute maxillary sinusitis, unspecified Condition: Stable Prescriptions: New amoxicillin-pot clavulanate 500-125 mg tablet 1 tab PO BID 7 Days Qty: 14 RF: 0 prednisone 20 mg tablet 20 mg PO BID 3 Days Qty: 6 RF: 0 No Action carvedilol 12.5 mg tablet 12.5 mg PO DIRECTED RF: 0 ondansetron HCl 4 mg tablet 4 mg PO Q12H PRN (Reason: nausea and vomiting) Qty: 60 RF: 0 Eliquis 5 mg tablet 5 mg PO BID 90 Days Qty: 180 RF: 1 lisinopril 5 mg tablet 5 mg PO DAILY Qty: 180 RF: 2 isosorbide mononitrate 30 mg tablet extended release 24 hr 30 mg PO DAILY Qty: 90 RF: 3 buspirone 10 mg Tablet 5 mg PO BID RF: 0 docusate sodium 100 mg Capsule 100 mg PO BID RF: 0 lactulose 20 gram/30 mL solution 15 g PO Q12H PRN (Reason: Acid Reflux) 30 Days Qty: 1500 RF: 2 Discharge Orders: Discharge ED (Routine); Ordered 02/27/21 Ordered By: Pietro Grewal Referrals: Baldomero Britt MD [Primary Care Provider] - Discharge Diet: Regular Discharge Activity: Increase activity as tolerated Patient Instructions: Sinusitis (ED) Activity Restrictions/Additional Instructions: Follow-up with medical provider as directed in the next 7 to 10 days reevaluation. Take medications as prescribed. Return to the ER or your medical provider if condition worsens. Please read and understand discharge instructions. Thank you for choosing [facility] for your healthcare needs today. Please realize this is an emergency room and that we are providing you with a medical screening exam and this may not be complete and all inclusive of all the testing and or work up that you may need to determine your ailment or severity of your illness. It is very important that you follow up as instructed or that you return to the Emergency Department should you have concerns or if your condition changes or worsens in any way. Coding Level of Care Code ED Vmware Consultant for Tad Fwtia Exam Comprehensive
[2021-02-27] MEDS: dexamethasone 10 mg/mL INJ IM (02:52)
[2021-02-27] MEDS: HYDROcodone-acetaminophen 5-325 mg Tablet 1 TAB PO (02:52)
[2021-02-27] MEDS: amoxicillin-clav 500-125 mg Tablet 1 TAB PO (03:43)
[2021-02-27 03:58] VITALS: BP 191/101
[2021-02-27 04:07] VITALS: BP 198/96
[2021-02-27] MEDS: cloNIDine 0.1 mg Tablet PO (04:07)
[2021-02-27 04:45] VITALS: BP 182/90
== END 2021-02-27 04:47 | disposition home or self-care (01) ==
PROVIDERS: Emergency Provider Physician Assistant; PCP Family Medicine
DX: J01.00 Acute maxillary sinusitis, unspecified (principal); R51.9 Headache, unspecified; I11.0 Hypertensive heart disease with heart failure
CPT/HCPCS: 70450; 96372; 99283; J1100

== ENCOUNTER 2021-02-27 10:09 | Outpatient (CLI) | payer MEDICARE, OTHER, SELFPAY ==
--- NOTE | 2021-02-27 10:16 | MR_ITS ---
WS: [id number] MRI LUMBAR SPINE WITH CONTRAST TECHNIQUE: Sagittal T1, T2 and STIR imaging. Axial T1 and T2 imaging. Post gadolinium imaging was obt ained. CLINICAL INFORMATION: M54.50 - Low back pain, unspecified. Reported history of low back infection. COMPARISON: MRI November 07, 2020 FINDINGS: Mild lumbar curve. No acute compression. Disc desiccation worse at L3-L4 and L4-L5. Small amount of e preston in the endplates L3-L4 L4-L5 with small amount of endplate enhancement likely degenerative. Low- grade discitis is an additional less likely consideration. This is similar in appearance to October. Small amount of T2 signal abnormality and enhancement in the disc spaces at these levels. L1-L2: Mild disc bulging. Mild facet arthropathy. Spinal canal and foramen are patent. L2-L3: Mild disc bulging with slight effacement of ventral thecal sac. Slight impingement on the left subarticular recess and traversing left L3 nerve root. Moderate facet arthropathy. Mild left foramin al narrowing. Moderate facet arthropathy. L3-L4: Mild disc bulging with osteophytic ridging. Slight effacement of ventral thecal sac. Mild righ t and no significant left foraminal narrowing. Mild facet arthropathy. L4-L5: Mild disc bulging with osteophytic ridging. Slight narrowing of the subarticular recess bilate rally. Mild left greater than right foraminal narrowing. L5-S1: Mild disc bulge with endplate ridging. Slight effacement of ventral thecal sac. Foramen are pa tent. Moderate facet arthropathy. Small bilateral renal cysts.. MR/MR lumbar spine wo/w con [id number] IMPRESSION: 1. Mild lumbar curve. No acute compression. No high-grade central canal stenos is. 2. Disc desiccation with mild endplate edema at L3-L4 L4-L5. Slight disc space and endplate enhancement likely degenerative. Treated or residual low-grade di scitis is an additional although less likely consideration. Recommend correlati on with history of infection. 3. No paravertebral abscess. 4. Moderate facet arthropathy L3-L5. 5. Otherwise no significant changes from previous. 6. Mild left L2-3, right L3-4, and left L4-5 foraminal narrowing.
== END 2021-02-27 10:10 | disposition home or self-care (01) ==
PROVIDERS: PCP Family Medicine; Visit Provider Orthopaedic Surgery
DX: M46.46 Discitis, unspecified, lumbar region (principal); G95.19 Other vascular myelopathies; M47.816 Spondylosis without myelopathy or radiculopathy, lumbar region
CPT/HCPCS: 72158; A9577

== ENCOUNTER → 2021-03-16 09:04 | Outpatient (BNVA) | payer MEDICARE, OTHER, SELFPAY | PROVIDERS: PCP Family Medicine; Visit Provider Orthopaedic Surgery | DX: M54.2 Cervicalgia (principal); M47.893 Other spondylosis, cervicothoracic region | CPT/HCPCS: 72050 ==

== ENCOUNTER 2021-03-20 22:16 | Inpatient (IN) | payer MEDICARE, OTHER, SELFPAY ==
[2021-03-20 22:23] VITALS: BP 215/84; PULSE 89; RESP 18; TEMP 36.7; O2SAT 97; BMI 26.6
[2021-03-20 23:15] LABS: Basophils # 0.1 10^3/uL (0.0-0.1); Basophils % 0.5 %; Eosinophils # 0.4 10^3/uL (0.0-0.8); Eosinophils % 3.8 %; Hematocrit 44.4 % (37.0-47.0); Hemoglobin 14.6 g/dL (11.5-15.3); Lymphocytes # 2.1 10^3/uL (0.8-4.8); Lymphocytes % 21.6 %; Mean Corpuscular HGB Conc 32.9 g/dL (30.0-36.0); Mean Corpuscular Hemoglobin 27.9 pg (28.0-34.0); Mean Corpuscular Volume 84.7 fl (81-99); Mean Platelet Volume 10.5 fL (7.4-10.4); Monocytes # 0.8 10^3/uL (0.2-0.9); Monocytes % 8.5 %; Neutrophils # 6.36 10^3/uL (1.8-7.7); Neutrophils % 65.3 %; Nucleated Red Blood Cells % 0 %; Platelet Count 222 10^3/cmm (130-400); Red Blood Count 5.24 10^6/uL (4.1-5.3); Red Cell Distribution Width 16.5 % (12.1-15.1); White Blood Count 9.7 10^3/uL (4.0-10.0)
[2021-03-20 23:36] LABS: Alanine Aminotransferase 10 U/L (0-33); Albumin Level 4.4 g/dL (3.5-5.2); Alkaline Phosphatase 125 IU/L (35-105); Anion Gap 17.6 (5-19); Aspartate Amino Transferase 18 U/L (0-32); Blood Urea Nitrogen 10 mg/dL (8-23); Calcium 9.4 mg/dL (8.5-10.5); Carbon Dioxide 25 mmol/L (22-29); Chloride 101 mmol/L (98-107); Globulin 2.2 g/dL (1.3-4.6); Glucose 102 mg/dL (65-115); Lipase 22 U/L (13-60); Osmolality Calculated 289 mOsm/kg (285-295); Potassium 3.6 mmol/L (3.5-5.1); Sodium 140 mmol/L (136-145); Total Bilirubin 0.8 mg/dL (0.15-1.2); Total Protein 6.6 g/dL (6.6-8.7)
[2021-03-21] VITALS (39 sets, daily range): BP systolic 120–177; BP diastolic 57–95; PULSE 81–89; RESP 14–20; TEMP 36.6; O2SAT 91–99; BMI 26.8
--- NOTE | 2021-03-21 01:22 | ED_ITS ---
HPI - Abdominal Pain General: Chief Complaint: Abdominal Pain Stated Complaint: Poss Bowel Blockage Time Seen by Provider: 03/21/21 01:22 History of Present Illness: HPI narrative: Ms. Duffy is a 76-year-old lady with history of hypertension, hyperlipidemia, atrial fibrillation on anticoagulation, diabetes who presents emergency department due to abdominal pain. She has extensive history of multiple abdominal surgeries with complications and has recurrent episodes of small bowel obstruction. Approximately 5 hours prior to arrival she had subacute onset of generalized abdominal pain which is severe in intensity and aching in quality. She has associated nausea and vomiting. She has not had a bowel movement since onset of symptoms and is unsure of when she passed gas last. No other sign systemic illness. No other specific change in health, exacerbating, or alleviating factors. Related Data: Date of Last Menstrual Period: 06/02/20 Review of Systems General: Reports: 10 or more systems reviewed and unremarkable except in HPI and below PFSH ED PFSH: Medical History Atrial fibrillation Chronic nausea Colonic diverticular abscess Congestive heart failure Coronary disease Discitis, unspecified, lumbar region DM II (diabetes mellitus, type II), controlled GUILLUAME (generalized anxiety disorder) GERD (gastroesophageal reflux disease) Gout Hypertension Lumbar stenosis with neurogenic claudication Migraine MRSA bacteremia Myopericarditis Necrotizing fasciitis Non-ST elevation [place] (NSTEMI) Osteoarthritis Pain of both breasts Pericarditis Scleroderma Small bowel obstruction Surgical History H/O colectomy H/O hernia repair History of cholecystectomy S/P dilatation of esophageal stricture S/P ANH-BSO Family History Mother Congestive heart failure Social History Alcohol intake: never Female Reproductive History: Date of last menstrual period: 06/02/20 Physical Exam Const: COMMON NORMALS: alert GENERAL APPEARANCE: cooperative, well developed and in distress (Pain) HENMT: COMMON NORMALS: normocephalic and atraumatic HEAD & SCALP: normocephalic and atraumatic OTHER: Dry mucous membranes Eye: COMMON NORMALS: conjunctivae normal CONJUNCTIVA: Yes conjunctivae normal SCLERA: sclerae normal Neck/C-Spine: COMMON NORMALS: supple GENERAL: Yes trachea midline Resp: COMMON NORMALS: normal respiratory effort EFFORT & INSPECTION: Yes able to speak in complete sentences Cardio: COMMON NORMALS: regular rate and regular rhythm RATE: regular rate RHYTHM: regular rhythm GI: PALPATION: Yes Tenderness to palpation present (GI), Yes Guarding due to palpation present (GI) and No Rigid due to palpation Extremity: GENERAL: Yes normal exam except as noted and No edema Neuro: COMMON NORMALS: moves all extremities SENSORIUM/ORIENTATION: Yes alert and No Orientation impaired Psych: COMMON NORMALS: mental status grossly normal and Normal thought process present THOUGHT PROCESS: Normal thought process present Course ED course: - Patient was seen and evaluated by me at bedside - Patient placed on cardiac monitors, IV access obtained - Initial evaluation notable for discomfort due to pain as noted above -Symptom treatment ordered - Labs notable for no leukocytosis, no acute electrolyte derangement. - Imaging notable for small bowel obstruction with multiple small bowel loops dilated. - Upon serial reexamination after treatment the patient was mildly improved with symptom treatment though repeated treatments required - Based on patient history, evaluation, labs, and imaging as interpreted the most likely cause of the patient's condition is small bowel obstruction. -Discussed with Dr. Moncada of general surgery. Patient to be admitted to medicine service. NG tube ordered. - The results of ED evaluation were discussed with the patient including plan for admission due to requirement for level of care not available if discharged to prevent significant worsening/deterioration. -Hospitalist service contacted and agreed admit the patient. - Patient was admitted without further deterioration or significant events. Note: Click bubbles or prepopulated lutz in note writing are used for assistance with data collection and billing and are inherently more limited than narrative and other text portions of this note. Please use narrative for additional clinical history and defer to narrative/free test for any case of contradictory information. If information appears in only free text or click bubble it should be considered present or absent as reported. Please contact note check writer salesperson for clarifications of clinical information or contradictory information. MDM is a brief summary, contradictory or erroneous seeming information should be clarified and full note should be reviewed. Vital Signs: Vital signs: Vital Signs Temperature 98.2 F 03/23/21 12:00 Pulse Rate 80 03/23/21 12:00 Respiratory Rate 18 03/23/21 12:00 Blood Pressure 122/72 03/23/21 12:00 Pulse Oximetry 98 03/23/21 12:00 MDM - Abdominal Pain MDM Narrative: Medical decision making narrative: 76-year-old lady with extensive past surgical history and multiple bowel obstructions presenting with abdominal pain. Found to have small bowel obstruction. Admitted for further definitive management and evaluation by surgery service. Medical Records: Attestation: I reviewed the patient's medical records. Lab Data: Attestation: I reviewed the patient's lab results. Labs: Lab Results 03/20/21 03/20/21 03/20/21 23:05 23:05 23:05 WBC 9.7 10^3/uL 10^3/ uL (4.0-10.0) RBC 5.24 10^6/uL 10^6 /uL (4.1-5.3) Hgb 14.6 g/dL g/dL (11.5-15.3) Hct 44.4 % % (37.0-47.0) MCV 84.7 fl fl (81-99) MCH 27.9 pg L pg (28.0-34.0) MCHC 32.9 g/dL g/dL (30.0-36.0) RDW 16.5 % H % (12.1-15.1) Plt Count 222 10^3/cmm 10^3 /cmm (130-400) MPV 10.5 fL H fL (7.4-10.4) Neut % (Auto) 65.3 % % Lymph % (Auto) 21.6 % % Barren % (Auto) 8.5 % % Eos % (Auto) 3.8 % % Baso % (Auto) 0.5 % % Neut # (Auto) 6.36 10^3/uL 10^3 /uL (1.8-7.7) Lymph # (Auto) 2.1 10^3/uL 10^3/ uL (0.8-4.8) Barren # (Auto) 0.8 10^3/uL 10^3/ uL (0.2-0.9) Eos # (Auto) 0.4 10^3/uL 10^3/ uL (0.0-0.8) Baso # (Auto) 0.1 10^3/uL 10^3/ uL (0.0-0.1) Nucleated RBC % (a uto) 0 % % Nucleated RBCs # 0.0 /100WBC /100W BC Sodium 140 mmol/L mmol/L (136-145) Potassium 3.6 mmol/L mmol/L (3.5-5.1) Chloride 101 mmol/L mmol/L (98-107) Carbon Dioxide 25 mmol/L mmol/L (22-29) Anion Gap 17.6 (5-19) BUN 10 mg/dL mg/dL (8-23) Creatinine 0.6 mg/dL mg/dL (0.5-0.9) GFR Calculation Not Reportable Glucose 102 mg/dL mg/dL (65-115) Calculated Osmolal ity 289 mOsm/kg mOsm/ kg (285-295) Lactic Acid 0.9 mmol/L mmol/L (0.5-2.2) Calcium 9.4 mg/dL mg/dL (8.5-10.5) Total Bilirubin 0.8 mg/dL mg/dL (0.15-1.2) AST 18 U/L U/L (0-32) ALT 10 U/L U/L (0-33) Alkaline Phosphata se 125 IU/L H IU/L (35-105) Troponin T Baselin e Troponin T 120 Min [place] Troponin T Total Protein 6.6 g/dL g/dL (6.6-8.7) Albumin 4.4 g/dL g/dL (3.5-5.2) Globulin 2.2 g/dL g/dL (1.3-4.6) Lipase 22 U/L U/L (13-60) 03/20/21 03/21/21 23:05 01:35 WBC RBC Hgb Hct MCV MCH MCHC RDW Plt Count MPV Neut % (Auto) Lymph % (Auto) Barren % (Auto) Eos % (Auto) Baso % (Auto) Neut # (Auto) Lymph # (Auto) Barren # (Auto) Eos # (Auto) Baso # (Auto) Nucleated RBC % (a uto) Nucleated RBCs # Sodium Potassium Chloride Carbon Dioxide Anion Gap BUN Creatinine GFR Calculation Glucose Calculated Osmolal ity Lactic Acid Calcium Total Bilirubin AST ALT Alkaline Phosphata se Troponin T Baselin e 10 ng/L ng/L (0-10) Troponin T 120 Min [place] 10.68 ng/L H ng/L (0-10) Delta Troponin T 0.68 ABS# ABS# (0-10) Total Protein Albumin Globulin Lipase EKG Data ^: EKG 1: Attestation: I personally reviewed and interpreted this EKG as follows: EKG interpretation date: 03/21/21 EKG interpretation time: 02:03 Interpretation: Twelve-lead EKG shows a regular rhythm at a rate of 99. NJ interval 156, QRS duration 81, QTc 399. Normal axis. Interpretation: Sinus rhythm. Nonspecific ST segment abnormalities. EKG 2: Attestation: I personally reviewed and interpreted this EKG as follows: EKG interpretation date: 03/21/21 EKG interpretation time: 03:46 Interpretation: Twelve-lead EKG shows a regular rhythm at a rate of 89. NJ interval 190, QRS duration 82, QTc 417. Normal axis. Interpretation: Sinus rhythm. Nonspecific ST segment abnormalities. Discharge Plan Discharge Patient Disposition: Admitted As Inpatient Admit Provider: Armando Downey Clinical Impression: Small bowel obstruction Condition: Stable Discharge Diet: Full LIquid Discharge Activity: Increase activity as tolerated Coding Level of Care Code ED Security Test Engineer for Chg Kin
--- NOTE | 2021-03-21 01:31 | CTR_ITS ---
PROCEDURE INFORMATION: Exam: CT Abdomen And Pelvis With Contrast Exam date and time: 03/21/2021 1:31 AM Age: 76 years old Clinical indication: Abdominal pain; Generalized; Prior surgery; Surgery date: 6+ months; Surgery type: Hernia, partial bowel removed, appy, gb, hyst. ; Additional info: Pain, ? bowel obstruction TECHNIQUE: Imaging protocol: Computed tomography of the abdomen and pelvis with contrast. Radiation optimization: All CT scans at this facility use at least one of these dose optimization techniques: automated exposure control; mA and/or kV adjustment per patient size (includes targeted exams where dose is matched to clinical indication); or iterative reconstruction. Contrast material: OMNI 300; Contrast volume: 95 ml; Contrast route: INTRAVENOUS (IV); COMPARISON: CT abdomen pelvis w con* [id number] 01/19/2021 9:21 PM RADIATION DOSE METRICS: Total DLP (mGy-cm): 1230.64 FINDINGS: Liver: Normal. No mass. Gallbladder and bile ducts: Stable cholecystectomy. Stable left pneumobilia which can be normal following cholecystectomy. Continued dilatation of the intra-and extrahepatic biliary tree which can be normal following cholecystectomy. Pancreas: Normal. No ductal dilation. Spleen: Normal. No splenomegaly. Adrenal glands: Normal. No mass. Kidneys and ureters: Multiple left renal hypodensities with the largest measuring < 1.0 cm, too small to further characterize. Right renal hypodensity measuring < 1.0 cm , too small to further characterize. Stomach and bowel: Anastomosis in the rectum most consistent with previous partial resection. Right bowel anastomosis consistent with previous partial bowel resection. Dilated loops of small bowel in the right lower quadrant the region of small bowel anastomosis up the 3.9 cm. Additional dilated loops of small bowel measuring up to 3.6 cm in diameter consistent with small-bowel obstruction. Appendix: No evidence of appendicitis. Intraperitoneal space: Unremarkable. No free air. No significant fluid collection. Vasculature: Calcification of the abdominal aorta and/or iliac arteries consistent with atherosclerotic vessel disease. Calcification of the abdominal aorta and/or iliac arteries consistent with atherosclerotic vessel disease. Calcification of the abdominal aorta and/or iliac arteries consistent with atherosclerotic vessel disease. Lymph nodes: Unremarkable. No enlarged lymph nodes. Urinary bladder: Unremarkable as visualized. Reproductive: Unremarkable as visualized. Bones/joints: Moderate to severe multilevel spine degenerative changes including degenerative disc disease, spondylosis and facet degenerative changes. Soft tissues: Unremarkable. Other findings: Possible transition point in the right lower quadrant with possible stricture, axial series 2, images 47-53. CT/CT abdomen pelvis w con* [id number] IMPRESSION: 1. Stable left pneumobilia which can be normal following cholecystectomy. 2. Continued dilatation of the intra-and extrahepatic biliary tree which can be normal following cholecystectomy. 3. Anastomosis in the rectum most consistent with previous partial resection. 4. Right bowel anastomosis consistent with previous partial bowel resection. 5. Dilated loops of small bowel in the right lower quadrant the region of small bowel anastomosis up the 3.9 cm. 6. Additional dilated loops of small bowel measuring up to 3.6 cm in diameter consistent with small-bowel obstruction. 7. Possible transition point in the right lower quadrant with possible stricture, axial series 2, images 47-53.
--- NOTE | 2021-03-21 01:31 | ECG_ITS ---
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 Measurements Intervals [place] Rate: 99 P: 65 IL: 156 QRS: 61 QRSD: 81 T: 81 QT: 343 QTc: 440 Interpretive Statements SINUS RHYTHM Compared to ECG 01/20/2021 04:25:11 T-wave abnormality no longer present Possible ischemia no longer present Electronically Signed On 03-22-2021 19:52:30 [place] by Gerri Sal M.D. [email or web address]/store/OM/[id number]
[2021-03-21 01:51] LABS: Troponin(5th) Baseline 10 ng/L (0-10)
[2021-03-21] MEDS: ondansetron 2 mg/ML SDV 2 mL 4 MG IVP ×3 (01:51→08:42)
[2021-03-21] MEDS: morphine 4 mg/mL SDV 1 mL IVP ×4 (01:51→12:42)
[2021-03-21 01:54] LABS: Lactic Sepsis W/Reflex 0.9 mmol/L (0.5-2.2)
[2021-03-21 02:01] LABS: Troponin 5 2HR 10.68 ng/L (0-10); Troponin 5 2HR Delta 0.68 ABS# (0-10)
[2021-03-21] MEDS: iohexol 300 mg/mL 100 mL Btl IV (02:23)
--- NOTE | 2021-03-21 03:31 | ECG_ITS ---
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 Measurements Intervals [place] Rate: 89 P: 86 DC: 190 QRS: 59 QRSD: 82 T: 76 QT: 370 QTc: 453 Interpretive Statements SINUS RHYTHM Compared to ECG 03/21/2021 01:56:51 No significant changes Electronically Signed On 03-22-2021 20:00:13 [employer] by Gerri Sal M.D. [email or web address].[employer]/store/[id number]
[2021-03-21] MEDS: lidocaine 2% Urojet 20 mL TOPICAL (05:12)
[2021-03-21 05:33] LABS: Add Urine Culture? Yes; Add Urine Microscopic? YES; Bacteria Urine 2+ /hpf; Bilirubin Urine Neg (Negative); Blood Urine 2+ (Negative); Glucose Urine UA Norm (Normal); Ketones Urine 1+ (Negative); Leukocyte Esterase Urine Negative (Negative); Nitrate Urine Positive (Negative); Protein Urine Neg (Negative); RBC Urine 0-4 /hpf (0-2); Squamous Epithelial Cell Urine RARE /hpf (0-5); Sulfosalicylic Acid Urine Negative (Negative); Urine Appearance Hazy (CLEAR); Urine Color Yellow (Yellow); Urobilinogen Urine Norm (Negative); WBC Urine RARE /hpf (0-5); pH Urine 8 (5-7)
--- NOTE | 2021-03-21 07:31 | ECG_ITS ---
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 Measurements Intervals [place] Rate: 77 P: 34 IA: 167 QRS: 19 QRSD: 82 T: 69 QT: 399 QTc: 452 Interpretive Statements SINUS RHYTHM Compared to ECG 03/21/2021 03:36:03 No significant changes Electronically Signed On 03-22-2021 20:00:58 [employer] by Gerri Sal M.D. [email or web address].[email or web address]/[id number]
--- NOTE | 2021-03-21 12:53 | PC.NURSE ---
PT HAS C/O RIGHT EAR AND THROAT PAIN FROM INSERTION OF NG TUBE. PT STATED HER PAIN IS A 9/10. PT GIVEN 4 MG OF MORPHINE. RN ASKED DOCTOR KELLY FOR A CHLOROSEPTIC SPRAY FOR PATIENTS PAIN. PT ALSO ASKING FOR HER ER DOCTOR TO SPEAK WITH DR. KIM SO THAT SHE CAN BE TRANSFERRED TO [facility] FOR SURGERY OF HER SMALL BOWEL OBSTRUCTION. DOCTOR KELLY MADE AWARE.
--- NOTE | 2021-03-21 14:08 | P.HP_ITS ---
Providers/Chief Complaint Chief Complaint: Valve Blockage History of Present Illness Anju Duffy is a 74 year old female who has history of scleroderma, diverticular abscess status post colectomy, postoperative complication with necrotizing fasciitis, recurrent SBO(prior 5 episodes of small bowel obstruction requiring 2 surgeries in the past), coming in today for chief complaint abdom inal pain. Patient stating that she has been on liquid diet for quite some time but yesterday she wanted to eat beans. She tried different kind of beans. Just 30 minutes after eating beans she started experiencing abdominal pain, she was exercising and nausea however did not experience emesis last night this morning she started throwing up that prompted her visit to the ER. In the ER lactic acid is normal, no leukocytosis, she is afebrile, patient is stating that her last bowel movement was 2 to 3 days ago, she has NG tube when I evaluated her, container has 500 mL bilious content Abdomen soft tender in left lower quadrant patient is stating that her pain started around her umbilical area shooting from left to right lower quadrant CT/CT abdomen pelvis w con* [id number] IMPRESSION: 1. Stable left pneumobilia which can be normal following cholecystectomy. 2. Continued dilatation of the intra-and extrahepatic biliary tree which can be normal following cholecystectomy. 3. Anastomosis in the rectum most consistent with previous partial resection. 4. Right bowel anastomosis consistent with previous partial bowel resection. 5. Dilated loops of small bowel in the right lower quadrant the region of small bowel anastomosis up the 3.9 cm. 6. Additional dilated loops of small bowel measuring up to 3.6 cm in diameter consistent with small-bowel obstruction. 7. Possible transition point in the right lower quadrant with possible stricture Review of Systems Const: Reports: body aches Eyes: Denies: change in vision ENMT: Denies: throat pain Card: Denies: chest pain Resp: Denies: dyspnea GI: Reports: abdominal pain, nausea and vomiting : Denies: flank pain Musc: Denies: neck pain Skin/Breast: Denies: rash Neuro: Denies: headache(s) Psych: Denies: anxiety Endo: Denies: polyuria Juan Francisco/Lymph: Denies: easy bruising All/Imm: Denies: urticaria Medications/Allergies Home Medications Medication Instructions Recorded Confirmed Last Taken Type apixaban 5 mg tablet 5 mg PO BID 90 Days #180 tab 01/09/21 03/21/21 01/10/21 Rx docusate sodium 100 mg PO BID 01/20/21 03/21/21 Unknown History carvedilol 12.5 mg tablet See Rx Instructions .ROUTE 02/06/21 03/21/21 Unknown History .COMPLEX tab amlodipine 2.5 mg PO QAM 03/21/21 03/21/21 Unknown History buspirone 7.5 mg PO BID 03/21/21 03/21/21 Unknown History lactulose 22.5 ml PO Q12H 03/21/21 03/21/21 Unknown History lisinopril 5 mg PO QAM 03/21/21 03/21/21 Unknown History ondansetron HCl 8 mg PO TID PRN 03/21/21 03/21/21 Unknown History sumatriptan succinate 100 mg PO . DIRECTED PRN 03/21/21 03/21/21 Unknown History Allergies Allergy/AdvReac Type Severity Reaction Status Date / Time Latex, Natural Rubber Allergy ALGY-Rash Verified 03/21/21 08:33 olanzapine [From Zyprexa] Allergy hallucinati Verified 03/21/21 08:33 ons/agitate d lorazepam [From Ativan] AdvReac hallucination, Verified 03/21/21 08:33 agitated PFSH Acute PFSH: Medical History Abdominal pain Adhesion of mesentery Atrial fibrillation Chest pain Colonic diverticular abscess Congestive heart failure Coronary disease Diabetes Diet controlled Discitis, unspecified, lumbar region DM II (diabetes mellitus, type II), controlled GUILLAUME (generalized anxiety disorder) GERD (gastroesophageal reflux disease) Gout Hypertension Intermittent small bowel obstruction Migraine MRSA bacteremia Myocardial infarction Myopericarditis Nausea & vomiting Necrotizing fasciitis Non-ST elevation MT (NSTEMI) Osteoarthritis Pain of both breasts Pericarditis Scleroderma Small bowel obstruction Surgical History H/O colectomy H/O hernia repair History of cholecystectomy S/P dilatation of esophageal stricture S/P ANH-BSO Family History Mother Congestive heart failure Social History Alcohol intake: never Female Reproductive History: Date of last menstrual period: 06/02/20 Vitals/I&O/Wt Last Vital Signs Temp 98.1 F 03/20/21 22:23 Pulse 81 03/21/21 09:32 Resp 20 H 03/21/21 12:42 BP 127/66 03/21/21 12:45 Pulse Ox 99 03/21/21 12:45 Weight last 48 hrs Weight 66.224 kg Physical Exam Narrative: EXAM NARRATIVE: Very pleasant elderly female Appears euvolemic NG tube in place draining bilious content, 500 mL in the container Bowel sounds present Tender left lower quadrant, no active signs of rigidity guarding or peritonitis Awake alert oriented x3 PERRLA Nonfocal neuro exam S1, S2 Saturating well on room air She had 1 episode of emesis during my evaluation Data : 03/20/21 23:05 03/20/21 23:05 A&P Assessment and plan (1) Small bowel obstruction: Status: Acute (2) Lumbar stenosis with neurogenic claudication: Status: Acute (3) GERD (gastroesophageal reflux disease): Status: Acute Qualifiers: Esophagitis presence: esophagitis presence not specified Qualified Code(s): K21.9 - Gastro-esophageal reflux disease without esophagitis (4) Chronic nausea: Status: Chronic (5) Diabetes: Status: Acute Additional A&P Information Recurrent small bowel obstruction NG tube to suction, 500 mL noted in the container No active signs of guarding, rigidity or peritonitis Lactic acid is normal, no leukocytosis, she is afebrile Conservative management for now Dr. Moncaad has been notified and consulted Varinderan for nausea I would use morphine for her analgesia She does have active bowel sounds N.p.o. Hold her p.o. meds She does have history of A. fib and sinus pauses with use of high doses of AV tal blocking agent, would use IV AV tal blocking agent for now. Use Holter Eliquis in case she would require any intervention DVT prophylaxis: SCDs Goals of care patient is stating that she has a living will, she wants a trial of CPR or intubation but does not want to stay on mechanical ventilator for prolonged period of time Attestations Medical Necessity Statement*: More than 2 midnights anticipated Time Spent in Patient Care: Greater than 35 minutes Coding Level of Care Code Acute Home Health Nurse for Chg Fwd Diagnoses Small bowel obstruction K56.609 Lumbar stenosis with neurogenic claudication M48.062 GERD (gastroesophageal reflux disease) K21.9 Esophagitis presence: esophagitis presence not specified Chronic nausea R11.0 Diabetes E11.9
[2021-03-21] MEDS: morphine 4 mg/mL SDV 1 mL 2 MG IVP (16:00)
[2021-03-21] MEDS: diphenhydrAMINE 50 mg/mL SDV 1mL 25 MG IVP (16:00)
--- NOTE | 2021-03-21 16:34 | PC.NURSE ---
report given to Ana on [employer]
--- NOTE | 2021-03-21 16:36 | PC.NURSE ---
report given to Ana on [employer]
--- NOTE | 2021-03-21 17:04 | PM.CONSULT ---
Providers/Reason For Consult Consulting Physician/Specialty*: General Surgery Dr. Moncada Reason for Consult*: Small bowel obstruction Attending Physician: Armando Downey MD History of Present Illness History of Present Illness Anju Duffy is a 75 year old female who had previously developed a diverticular abscess for which she underwent sigmoid colectomy with colostomy and subsequent colostomy takedown. Patient's postop course was complicated by necrotizing fasciitis and she has had multiple hospitalizations for bowel obstruction in the past. She has also had 2 laparotomies for bowel obstruction Patient presented to the emergency room with complaints of abdominal pain and nausea yesterday followed by vomiting earlier today. Patient states that she usually watches her diet but yesterday she had some beans subsequent to which her symptoms started. She is not passing flatus and her last BM was yesterday. Patient denies any fevers chills or urinary symptoms. Patient is an NG tube in place and denies any nausea or vomiting. Review of Systems General: Reports: 10 or more systems reviewed and unremarkable except in HPI and below Meds/Allergies Home Medications and Allergies Home Medications Medication Instructions Recorded Confirmed Last Taken Type apixaban 5 mg tablet 5 mg PO BID 90 Days #180 tab 01/09/21 03/21/21 01/10/21 Rx docusate sodium 100 mg PO BID 01/20/21 03/21/21 Unknown History carvedilol 12.5 mg tablet See Rx Instructions .ROUTE 02/06/21 03/21/21 Unknown History .COMPLEX tab amlodipine 2.5 mg PO QAM 03/21/21 03/21/21 Unknown History buspirone 7.5 mg PO BID 03/21/21 03/21/21 Unknown History lactulose 22.5 ml PO Q12H 03/21/21 03/21/21 Unknown History lisinopril 5 mg PO QAM 03/21/21 03/21/21 Unknown History ondansetron HCl 8 mg PO TID PRN 03/21/21 03/21/21 Unknown History sumatriptan succinate 100 mg PO . DIRECTED PRN 03/21/21 03/21/21 Unknown History amoxicillin-pot clavulanate 1 tab PO BID #10 tab 03/23/21 Unknown Rx [Augmentin] ondansetron HCl [Zofran] 4 mg PO Q6H PRN #14 tab 03/23/21 Unknown Rx Allergies Allergy/AdvReac Type Severity Reaction Status Date / Time Latex, Natural Rubber Allergy ALGY-Rash Verified 03/21/21 08:33 olanzapine [From Zyprexa] Allergy hallucinati Verified 03/21/21 08:33 ons/agitate d lorazepam [From Ativan] AdvReac hallucination, Verified 03/21/21 08:33 agitated PFSH Acute PFSH: Medical History (Updated 03/24/21 @ 16:23 by Amarjit Moncada MD) Atrial fibrillation Chronic nausea Colonic diverticular abscess Congestive heart failure Coronary disease Discitis, unspecified, lumbar region DM II (diabetes mellitus, type II), controlled GUILLAUME (generalized anxiety disorder) GERD (gastroesophageal reflux disease) Gout Hypertension Lumbar stenosis with neurogenic claudication Migraine MRSA bacteremia Myopericarditis Necrotizing fasciitis Non-ST elevation [place] (NSTEMI) Osteoarthritis Pain of both breasts Pericarditis Scleroderma Small bowel obstruction Surgical History H/O colectomy H/O hernia repair History of cholecystectomy S/P dilatation of esophageal stricture S/P ANH-BSO Family History Mother Congestive heart failure Social History Alcohol intake: never Female Reproductive History: Date of last menstrual period: 06/02/20 Vitals/I&O/Wt Last Vital Signs Temp 98.1 F 03/20/21 22:23 Pulse 85 03/21/21 14:18 Resp 14 03/21/21 16:00 BP 133/82 03/21/21 16:30 Pulse Ox 93 03/21/21 16:30 Weight last 48 hrs Weight 146 lb Physical Exam Narrative: EXAM NARRATIVE: HEENT: Normocephalic Eye: Sclera /conjunctiva normal Abdomen: Soft to palpation, mildly tender on the left side, no guarding or rigidity, nondistended Neurological: Oriented to place person and time Skin: Intact, no lesions appreciated on gross exam A&P Assessment and plan (1) Small bowel obstruction: 76-year-old female with history of multiple laparotomies after complication from diverticulitis who now presents again with small bowel obstruction. Patient is hemodynamically stable with no evidence of peritonitis. 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
--- NOTE | 2021-03-21 23:39 | PC.NURSE ---
Transfer of patient care received from Akosua LAZAR. Patient in bed/resting. No s/s of pain or discomfort. NG Kain jha to LIS. No needs noted at this time.
[2021-03-22] VITALS (8 sets, daily range): BP systolic 122–155; BP diastolic 63–81; PULSE 73–88; RESP 16–18; TEMP 36.7–37.2; O2SAT 93–98
--- NOTE | 2021-03-22 | FL_ITS ---
WS: [id number] SMALL BOWEL FOLLOW THROUGH 02/27/2022. HISTORY: CT scan demonstrates chronically dilated small bowel loops which appears to be related to a narrowing in the distal ileum in the right lower quadrant adjacent to multiple surgical clips. PROCEDURE: 200 mL of thin barium with Gastrografin was administered through the nasogastric tube with the patient in the right lateral decubitus position. FINDINGS: An image of the abdomen obtained 30 minutes after the contrast was administered through the nasogastric tube, demonstrates the contrast has reached the multiple dilated loops of small bowel within the pelvis. Additional serial radiographs will be obtained to determine passage of contrast from the small bowel into the colon. Dictated By: Vazquez Cam Jr, MD Signed By: Vazquez Cam Jr, MD Signed Date/Time: 03/22/21 1514 DD/ 1508 MTDD
[2021-03-22 05:06] LABS: Basophils % 0.6 %; Eosinophils # 0.2 10^3/uL (0.0-0.8); Eosinophils % 3.3 %; Hematocrit 41.7 % (37.0-47.0); Lymphocytes # 2.1 10^3/uL (0.8-4.8); Lymphocytes % 29.2 %; Mean Corpuscular HGB Conc 31.2 g/dL (30.0-36.0); Mean Corpuscular Hemoglobin 27.3 pg (28.0-34.0); Mean Corpuscular Volume 87.4 fl (81-99); Mean Platelet Volume 10.8 fL (7.4-10.4); Monocytes # 0.9 10^3/uL (0.2-0.9); Monocytes % 12.2 %; Neutrophils # 3.92 10^3/uL (1.8-7.7); Neutrophils % 54.6 %; Nucleated Red Blood Cells % 0 %; Platelet Count 187 10^3/cmm (130-400); Red Blood Count 4.77 10^6/uL (4.1-5.3); Red Cell Distribution Width 16.6 % (12.1-15.1); White Blood Count 7.2 10^3/uL (4.0-10.0)
[2021-03-22 05:24] LABS: Blood Urea Nitrogen 14 mg/dL (8-23); Calcium 8.5 mg/dL (8.5-10.5); Carbon Dioxide 23 mmol/L (22-29); Chloride 105 mmol/L (98-107); Glucose 81 mg/dL (65-115); Magnesium 1.7 mg/dL (1.7-2.3); Osmolality Calculated 292 mOsm/kg (285-295); Sodium 141 mmol/L (136-145)
[2021-03-22 05:27] LABS: Lactate (Lactic Acid level) 0.7 mmol/L (0.5-2.2)
[2021-03-22 05:28] LABS: Anion Gap 16.8 (5-19); Potassium 3.8 mmol/L (3.5-5.1)
--- NOTE | 2021-03-22 06:00 | XRR_ITS ---
PROCEDURE INFORMATION: Exam: XR Abdomen Exam date and time: 03/22/2021 6:00 AM Age: 76 years old Clinical indication: Condition or disease; Intestinal condition; Obstruction; Additional info: Sbo TECHNIQUE: Imaging protocol: XR of the abdomen. Views: 2 Views. Upright and supine views. COMPARISON: CT abdomen pelvis w con* [id number] 03/21/2021 2:23 AM FINDINGS: Tubes, catheters and devices: A nasogastric tube is present with the tip projecting in the stomach. Gastrointestinal tract: Normal. No bowel dilation. Intraperitoneal space: Normal. No free air. Bones/joints: Unremarkable for age. XR/XR abdomen min 2V [id number] IMPRESSION: There is no significant bowel dilatation.
--- NOTE | 2021-03-22 11:14 | PC.CHAP ---
Pastoral Care Encounter/Spiritual Assessment Type of Contact [] Declined stripper latex visit [] Patient/Family/Request visit [] Outpatient visit [] Follow-up visit [] Physician referral [] Code/Alert [x] Routine visit [] Staff referral [] Actively dying [] Patient sleeping [] Family support [] [] Out of room [] Palliative care [] [] Receiving care in room [] Pre-surgical visit [] Trauma [] Long length of stay [] ICU visit [] Other: Relational/Emotional Strength [x] Patient feels connected with others/family/visitors/staff [] Distress [] Loneliness/isolation [] Abandonment Spirituality of Patient [x] Person of Martha [] Attends Faith of their Martha [x] Believes in Prayer [] Reads Bible or Quaker materials [] There are Spiritual issues to be addressed 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 Interventions [x] Prayer x] Active listening [x] Non-anxious presence x[] Spiritual/emotional support [] Crisis/trauma care [] Spiritual counseling [] Bereavement support [] Provided bereavement packet [] Provided Bible/devotional materials [] Provided toy/stuffed animal, coloring book to patient or family member [] Provided Communion [] Anointing/[place] [] Salvation [] Completed spiritual assessment [] Other: Impact on Illness or Injury [] Angry [] Fearful [] Anxious [] Often cries [] Exhaustion [] Unable to work [] Unable to attend restoration [] Unable to walk/stand [] Unable to read [] Unable to drive [] Unable to eat/drink [] Unable to sleep [] Unable to be with family [] Patient intubated [] Other: Summary Time spent with patient 15 min
--- NOTE | 2021-03-22 11:55 | FL_ITS ---
WS: [id number] SMALL BOWEL FOLLOW THROUGH 02/27/2022. HISTORY: CT scan demonstrates chronically dilated small bowel loops which appears to be related to a narrowing in the distal ileum in the right lower quadrant adjacent to multiple surgical clips. PROCEDURE: 200 mL of thin barium with Gastrografin was administered through the nasogastric tube with the patien t in the right lateral decubitus position. FINDINGS: An image of the abdomen obtained 30 minutes after the contrast was administered through the nasogastr ic tube, demonstrates the contrast has reached the multiple dilated loops of small bowel within the p fátima. Additional serial radiographs will be obtained to determine passage of contrast from the small bowel into the colon.
--- NOTE | 2021-03-22 11:56 | PM.PN ---
Subjective Subjective: Interval history: Passing flatus, no vomiting since yesterday, overnight nothing was collected in the container, patient endorsing slightly feeling better Will get upper GI series Patient is anxious to have her NG tube removed which I am planning to after consulting with Dr. Moncada and upper GI series follow-up Vitals/I&O/Wt Last Vital Signs Temp 98.5 F 03/22/21 08:00 Pulse 85 03/22/21 08:00 Resp 16 03/22/21 08:00 BP 122/63 03/22/21 08:00 Pulse Ox 94 03/22/21 08:00 03/21/21 03/22/21 03/22/21 22:59 06:59 14:59 Output Total 410 / 410 Balance -410 / -410 Weight last 48 hrs Weight 66.497 kg Weight 66.224 kg Physical Exam Narrative: EXAM NARRATIVE: In distress because of NG tube which is hurting her throat Otherwise no active emesis NG container did not collect anything overnight Abdomen soft bowel sounds sluggish Tenderness in left lower quadrant EOMI, PERRLA Nonfocal exam S1, S2 Clinically looks dehydrated Data : 03/22/21 04:55 03/22/21 04:55 Micro: Microbiology 03/21/21 04:48 Urine Culture - Preliminary Urine,Clean Catch Gram Negative Rods A&P Assessment and plan (1) Small bowel obstruction: Status: Acute (2) Lumbar stenosis with neurogenic claudication: Status: Acute Additional A&P Information Small bowel obstruction Passing flatus, abdominal pain slightly better No white count, Hemodynamically stable Will get upper GI series We will follow-up with GI series and Dr. Moncada before removing NG Continue opioids Further recommendations to be made after the imaging, UTI with gram-negative komal, will add ceftriaxone, abdominal x-ray did not show significant bowel dilation most likely her NG tube will be removed today and her diet will be advanced Attestations Medical Necessity Statement*: Anticipating discharge in next 24 hours Time Spent in Patient Care: less than 15 minutes Coding Level of Care Code Acute Underwriting Intern for Chg Fwd Diagnoses Small bowel obstruction K56.609 Lumbar stenosis with neurogenic claudication M48.062
[2021-03-22 12:30] LABS: Glucose Point of Care 112 mg/dL (70-110)
[2021-03-22] MEDS: pantoprazole 40 mg SDV IVP (15:12)
[2021-03-22] MEDS: cefTRIAXone 1,000 MG in sodium chloride 0.9% (plus) 50 ML 100 MG IV (15:12)
--- NOTE | 2021-03-22 16:23 | PM.PN ---
Subjective Subjective: Interval history: patient has been passing flatus, no BM, denies any nausea or vomiting, NG tube fell out Vitals/I&O/Wt Last Vital Signs Temp 99.0 F 03/22/21 12:00 Pulse 83 03/22/21 12:00 Resp 18 03/22/21 12:00 BP 136/75 03/22/21 12:00 Pulse Ox 96 03/22/21 12:00 03/22/21 03/22/21 03/22/21 06:59 14:59 22:59 Intake Total 50 / 50 Output Total 410 / 410 Balance -410 / -410 50 / 50 Weight last 48 hrs Weight 146 lb 9.6 oz Weight 146 lb Physical Exam Narrative: EXAM NARRATIVE: Abdomen: Soft, nondistended, press tender long goods but better than likely last night Data : 03/22/21 04:55 03/22/21 04:55 Micro: Microbiology 03/21/21 04:48 Urine Culture - Preliminary Urine,Clean Catch Gram Negative Rods A&P Assessment and plan (1) Small bowel obstruction: 76-year-old female with history of multiple laparotomies who presents with small bowel obstruction. Patient is currently hemodynamically stable. 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
[2021-03-22] MEDS: magnesium citrate Btl 296 mL PO (17:17)
[2021-03-23 04:00] VITALS: BP 148/78; PULSE 76; RESP 18; TEMP 36.7; O2SAT 95
[2021-03-23 06:22] LABS: Basophils % 0.6 %; Eosinophils # 0.3 10^3/uL (0.0-0.8); Eosinophils % 4.6 %; Hematocrit 41.5 % (37.0-47.0); Hemoglobin 12.5 g/dL (11.5-15.3); Lymphocytes # 2.1 10^3/uL (0.8-4.8); Lymphocytes % 33.6 %; Mean Corpuscular HGB Conc 30.1 g/dL (30.0-36.0); Mean Corpuscular Hemoglobin 27.4 pg (28.0-34.0); Mean Corpuscular Volume 90.8 fl (81-99); Mean Platelet Volume 10.9 fL (7.4-10.4); Monocytes # 0.7 10^3/uL (0.2-0.9); Monocytes % 11.1 %; Neutrophils # 3.15 10^3/uL (1.8-7.7); Neutrophils % 49.8 %; Nucleated Red Blood Cells % 0 %; Platelet Count 183 10^3/cmm (130-400); Red Blood Count 4.57 10^6/uL (4.1-5.3); Red Cell Distribution Width 15.9 % (12.1-15.1); White Blood Count 6.3 10^3/uL (4.0-10.0)
[2021-03-23 06:53] LABS: Anion Gap 18.7 (5-19); Blood Urea Nitrogen 13 mg/dL (8-23); Calcium 8.2 mg/dL (8.5-10.5); Carbon Dioxide 21 mmol/L (22-29); Chloride 105 mmol/L (98-107); Glucose 71 mg/dL (65-115); Osmolality Calculated 291 mOsm/kg (285-295); Potassium 3.7 mmol/L (3.5-5.1); Sodium 141 mmol/L (136-145)
[2021-03-23 08:00] VITALS: BP 133/75; PULSE 78; RESP 18; TEMP 36.7; O2SAT 98
[2021-03-23] MEDS: pantoprazole 40 mg SDV IVP (08:27)
[2021-03-23] MEDS: ondansetron 2 mg/ML SDV 2 mL 4 MG IVP (08:27)
--- NOTE | 2021-03-23 11:08 | PM.DCS ---
Discharge Providers Date of Admission: 03/21/21 04:35 Date of Discharge: March 23, 2021 Attending Provider at Admission: Armando Downey MD Attending Provider at Discharge: Armando Downey MD Diagnoses at Discharge Discharge Diagnosis (1) Small bowel obstruction: Status: Acute Reason for Visit Reason for Visit: Valve Blockage Hospital Course Hospital Course 76-year-old female who was admitted for management of small bowel obstruction. She has history of recurrent bowel obstruction, at home keeps herself on for liquid diet. She was managed conservatively with placement of NG tube, in the ER 500 cc of bilious content was obtained however after that there was no content suctioned in the container and next 18 hours, NG tube was clamped, she was given clear liquid diet, upper GI series was done which showed passage of contrast into the colon up to the rectum. She was given mag citrate, she had 2-3 bowel movement, was able to pass flatus, still complaining of left lower quadrant pain 2-3/10 intensity, no active emesis. She is tolerating her full liquid diet, she will be discharged on 03/23. Of note, urine culture returned positive for Klebsiella however she had no symptoms. She will be discharged on Augmentin. Physical Exam Narrative: EXAM NARRATIVE: Patient saturating well on room air NG tube has been removed Abdomen soft no signs of peritonitis however slight tenderness on deep palpation to left lower quadrant Bowel sounds present S1, S2 afebrile Looks euvolemic Very pleasant and cooperative Discharge Data Data Completed and Pending: Completed Studies During Hospitalization Category Date Time Status CT abdomen pelvis w con* [id number] Urge nt Cat Scan 03/21/21 01:31 Completed [place] upper GI small bowel series Stat Exams 03/22/21 11:55 Completed XR abdomen min 2V [id number] Routine Exams 03/22/21 06:00 Completed Labs from last 24 hours 03/23/21 03/23/21 03/21/21 05:40 05:40 17:05 WBC 6.3 RBC 4.57 Hgb 12.5 Hct 41.5 MCV 90.8 MCH 27.4 L MCHC 30.1 RDW 15.9 H Plt Count 183 MPV 10.9 H Neut % (Auto) 49.8 Lymph % (Auto) 33.6 [place] % (Auto) 11.1 Eos % (Auto) 4.6 Baso % (Auto) 0.6 Neut # (Auto) 3.15 Lymph # (Auto) 2.1 [place] # (Auto) 0.7 Eos # (Auto) 0.3 Baso # (Auto) 0.0 Nucleated RBC % (a uto) 0 Nucleated RBCs # 0.0 Sodium 141 Potassium 3.7 Chloride 105 Carbon Dioxide 21 L Anion Gap 18.7 BUN 13 Creatinine 0.4 L GFR Calculation Not Reportable Glucose 71 POC Glucose 112 H Calculated Osmolal ity 291 Calcium 8.2 L Vitals: Last Vital Signs Temp 98.0 F 03/23/21 08:00 Pulse 78 03/23/21 08:00 Resp 18 03/23/21 08:00 BP 133/75 03/23/21 08:00 Pulse Ox 98 03/23/21 08:00 Discharge Plan Discharge Patient Disposition: Home Condition: Stable Prescriptions: New lactulose 10 gram packet 10 g PO DAILY Qty: 1 RF: 0 Augmentin 875-125 mg tablet 1 tab PO BID Qty: 10 RF: 0 Zofran 4 mg tablet 4 mg PO PRN Qty: 14 RF: 0 Continued carvedilol 12.5 mg tablet See Rx Instructions .ROUTE .COMPLEX RF: 0 Eliquis 5 mg tablet 5 mg PO BID 90 Days Qty: 180 RF: 1 docusate sodium 100 mg Capsule 100 mg PO BID RF: 0 sumatriptan succinate 100 mg tablet 100 mg PO . DIRECTED PRN (Reason: Migraine Headache) RF: 0 ondansetron HCl 8 mg tablet 8 mg PO TID PRN (Reason: Nausea And Vomiting) RF: 0 buspirone 7.5 mg tablet 7.5 mg PO BID RF: 0 lactulose 10 gram/15 mL solution 22.5 ml PO Q12H RF: 0 amlodipine 2.5 mg tablet 2.5 mg PO QAM RF: 0 lisinopril 5 mg tablet 5 mg PO QAM RF: 0 Discharge Orders: Discharge Order (Routine); Ordered 03/23/21 Ordered By: Armando Downey Discharge Diet: Full LIquid Discharge Activity: Increase activity as tolerated Patient Instructions: Opioid Safety Discharge Attestations Time Spent in Discharge Care*: less than 30 min Status at Discharge: Cognitive status at discharge: cognitively intact, Behavioral status at discharge: cooperative, Quality Metrics Clinical Quality Measures During this hospital stay, did patient experience: None Coding Level of Care Code Acute Chg FW DC note Diagnoses Small bowel obstruction K56.609
[2021-03-23 12:00] VITALS: BP 122/72; PULSE 80; RESP 18; TEMP 36.8; O2SAT 98
== END 2021-03-23 13:30 | disposition home or self-care (01) | DRG 389 ==
LOC: ER 03-21 12:54 → MEDSURG 03-21 16:00
PROVIDERS: Emergency Medicine; Nurse Practitioner Family; Admitting Provider Internal Medicine; Emergency Provider Family Medicine; Visit Provider Internal Medicine
DX: K56.609 Unspecified intestinal obstruction, unspecified as to partial versus complete obstruction (principal); N39.0 Urinary tract infection, site not specified; B96.1 Klebsiella pneumoniae [K. pneumoniae] as the cause of diseases classified elsewhere; I11.0 Hypertensive heart disease with heart failure; I50.9 Heart failure, unspecified; E78.5 Hyperlipidemia, unspecified; I48.91 Unspecified atrial fibrillation; E11.9 Type 2 diabetes mellitus without complications; K21.9 Gastro-esophageal reflux disease without esophagitis; I25.2 Old myocardial infarction; I25.10 Atherosclerotic heart disease of native coronary artery without angina pectoris; Z79.01 Long term (current) use of anticoagulants; Z86.14 Personal history of Methicillin resistant Staphylococcus aureus infection; Z90.49 Acquired absence of other specified parts of digestive tract
CPT/HCPCS: 36415; 36416; 74019; 74177; 74240; 74248; 74250; 80048; 80053; 81001; 82962; 83605; 83690; 83735; 84484; 85025; 87077; 87086; 87186; 93005; 96374; 96375; 99285; C9113; J0696; J1200; J2270; J2405; Q9967

== ENCOUNTER → 2021-03-27 08:43 | Outpatient (BNVA) | payer MEDICARE, OTHER, SELFPAY | PROVIDERS: PCP Family Medicine; Referring Provider Orthopaedic Surgery; Visit Provider Anesthesiology Pain Medicine | DX: G89.29 Other chronic pain (principal); M47.816 Spondylosis without myelopathy or radiculopathy, lumbar region; M54.16 Radiculopathy, lumbar region; M54.2 Cervicalgia; M79.604 Pain in right leg; M79.605 Pain in left leg; Z87.891 Personal history of nicotine dependence | CPT/HCPCS: 99205 ==

== ENCOUNTER 2021-03-29 12:24 | Outpatient (CLI) | payer MEDICARE, OTHER, SELFPAY ==
--- NOTE | 2021-03-29 12:45 | USCV_ITS ---
[facility] Age: 76 Gender: F : 1945 Exam Date: 03/29/2021 12:42 Ordering Phys: Jacey Tran MD ([email or web address]) Technologist: RUTHY [place]am [place] [facility] [place] [facility] [place] Indication: HEART FAILURE BP: / HR: 78 Rhythm: Sinus Technical Quality: Adequate MEASUREMENTS (Male / Female) Normal Values 2D ECHO LV Diastolic Diameter PLAX 2.4 cm 4.2 - 5.9 / 3.9 - 5.3 cm LV Systolic Diameter PLAX 2.2 cm LV Chamber Size 2.9 cm IVS Diastolic Thickness 1.5 cm 0.6 - 1.0 / 0.6 - 0.9 cm IVS Systolic Thickness 1.2 cm LVPW Diastolic Thickness 1.5 cm 0.6 - 1.0 / 0.6 - 0.9 cm LVPW Systolic Thickness 1.6 cm RV Chamber Size 2.4 cm LVOT Diameter 2.1 cm LV Ejection Fraction 2D Teich 6.5 % LV Ejection Fraction MOD 2C 44.0 % LV Ejection Fraction 2C AL 44.0 % LA Diameter 3.6 cm LA Width 3.8 cm LA Height 2.9 cm RA Width 4.0 cm RA Height 3.4 cm Aorta at Sinotubular Diameter 2.7 cm M-MODE Aortic Annulus Diameter 2.9 cm LA Ao Ratio MM 1.4 MV E Point Septal Separation 0.4 cm DOPPLER AV Peak Velocity 178.0 cm/s LVOT Peak Velocity 104.0 cm/s AV Area Cont Eq vti 2.1 cm squared AV Area Cont Eq pk 2.0 cm squared MV Area PHT 2.8 cm squared Mitral E to A Ratio 0.8 MV E' Velocity 52.5 cm/s Mitral E to MV E' Ratio 14.2 Mitral E to LV E' Lateral Ratio 12.2 Mitral E to LV E' Septal Ratio 17.3 TR Peak Velocity 218.3 cm/s TR Peak Gradient 19.1 mmHg TR Mean Velocity 162.4 cm/s TR Mean Gradient 12.5 mmHg TR Velocity Time Integral 68.2 cm TV Peak E Velocity 48.0 cm/s Right Atrial Pressure 3.0 mmHg Pulmonary Artery Systolic Pressu 22.1 mmHg PV Peak Velocity 76.0 cm/s RV Acceleration Time 0.1 s RV Ejection Time 0.3 s RV AcT/ET 0.3 FINDINGS Left Ventricle Normal left ventricular size, systolic function and wall thickness, with no regional wall motion abnormalities. Left ventricular ejection fraction is estimated at 60 %. Grade II diastolic dysfunction, moderately elevated filling pressures. Right Ventricle Normal right ventricular size and systolic function. Right ventricular systolic pressure 31 mmHg. Right Atrium Normal right atrial size. Right atrial pressure estimated at 3 mmHg. Left Atrium Upper normal left atrial size. Mitral Valve Moderate mitral annular calcification. No mitral valve stenosis. Trace mitral valve regurgitation. Aortic Valve Aortic valve not well visualized. No aortic valve stenosis. No aortic valve regurgitation. Tricuspid Valve Structurally normal tricuspid valve. Trace to mild tricuspid valve regurgitation. Pulmonic Valve Pulmonic valve not well visualized. No pulmonary valve stenosis. Pericardium No pericardial effusion. Aorta Normal-sized aortic root. Normal size inferior vena cava with greater than 50% respiratory variation. CONCLUSIONS 1. Normal left ventricular size, systolic function and wall thickness, with no regional wall motion abnormalities. Left ventricular ejection fraction is estimated at 60 %. Grade II diastolic dysfunction, moderately elevated filling pressures. 2. Normal right ventricular size and systolic function. 3. Pulmonary artery pressure estimated at 31 mmHg. 4. There may not have been any significant change when compared to previous echocardiogram dated 01/20/2021. Jacey Tran MD (Electronically Signed) Final Date: 29 March 2021 16:23 S
== END 2021-03-29 12:25 | disposition home or self-care (01) ==
LOC: RAD 12:28
PROVIDERS: PCP Family Medicine; Visit Provider Internal Medicine Cardiovascular Disease
DX: I50.9 Heart failure, unspecified (principal)
CPT/HCPCS: 93306

== ENCOUNTER 2021-04-04 06:00 | Outpatient (RCR) | payer MEDICARE, OTHER, SELFPAY | END 2021-04-10 23:59 | disposition home or self-care (01) | LOC: SPT 06:00 | PROVIDERS: PCP Family Medicine; Referring Provider Anesthesiology Pain Medicine; Visit Provider Anesthesiology Pain Medicine | DX: M54.50 Low back pain, unspecified (principal); G89.29 Other chronic pain | CPT/HCPCS: 97161 ==

== ENCOUNTER 2021-04-11 06:00 | Outpatient (RCR) | payer MEDICARE, OTHER, SELFPAY | END 2021-05-08 23:59 | disposition home or self-care (01) | LOC: SPT 06:00 | PROVIDERS: PCP Family Medicine; Referring Provider Anesthesiology Pain Medicine; Visit Provider Anesthesiology Pain Medicine | DX: M54.50 Low back pain, unspecified (principal); G89.29 Other chronic pain | CPT/HCPCS: 97110 ==

== ENCOUNTER 2021-04-27 14:04 | Outpatient (CLI) | payer MEDICARE, OTHER, SELFPAY ==
--- NOTE | 2021-04-27 14:30 | MR_ITS ---
WS: [id number] MRI CERVICAL SPINE NONCONTRAST TECHNIQUE: Sagittal T1, T2 and STIR imaging. Axial T2, gradient, and fiesta imaging. CLINICAL INFORMATION: M54.2 - Cervicalgia COMPARISON: CT cervical October 11, 2020 FINDINGS: Straightening of the normal cervical lordosis. Cord signal is normal. C2-C3: Mild LEFT and no significant RIGHT foraminal narrowing. Mild LEFT facet arthropathy. Spinal ca nal is patent. C3-C4: Disc osteophytic ridging eccentric to the LEFT. Moderate LEFT and no central RIGHT foraminal n arrowing. Moderate LEFT facet arthropathy. Spinal canal is patent. C4-C5: Disc osteophyte complex endplate ridging. Moderate LEFT and mild RIGHT foraminal narrowing. Mo derate facet arthropathy worse in the LEFT. C5-C6: Disc osteophytic ridging. Spinal canal is patent. Moderate LEFT and mild RIGHT bony foraminal narrowing. Moderate facet arthropathy. C6-C7: Slight anterolisthesis C6 on C7. Moderate facet arthropathy. Spinal canal and foramen are bustillos nt. C7-T1: Normal. Visualized brain stem structures: Normal. Prevertebral soft tissues: Normal. MR/MR cervical spin wo con* [id number] IMPRESSION: 1. Straightening of the normal cervical lordosis. Cord signal is normal. 2. Disc osteophytic ridging with moderate bony foraminal narrowing LEFT C3-C4, LEFT C4-C5, LEFT C5-C6. 3. Asymmetric moderate facet arthropathy at LEFT C3-C4, LEFT C4-C5, and LEFT C 5-C6. 4. Mild RIGHT bony foraminal narrowing RIGHT C4-C5 and RIGHT C5-C6. 5. No significant central canal stenosis. 6. Slight anterolisthesis C6 on C7.
== END 2021-04-27 14:05 | disposition home or self-care (01) ==
LOC: RAD 14:10
PROVIDERS: PCP Family Medicine; Visit Provider Orthopaedic Surgery
DX: M25.78 Osteophyte, vertebrae (principal); M47.812 Spondylosis without myelopathy or radiculopathy, cervical region
CPT/HCPCS: 72141

== ENCOUNTER 2021-05-02 15:30 | Outpatient (CLI) | payer MEDICARE, OTHER, SELFPAY ==
[2021-05-02 16:14] LABS: Erythrocyte Sedimentation Rate 6 mm/hr (0-15)
== END 2021-05-02 15:31 | disposition home or self-care (01) ==
LOC: LAB 15:33
PROVIDERS: PCP Family Medicine; Visit Provider Orthopaedic Surgery
DX: G89.29 Other chronic pain (principal); M54.16 Radiculopathy, lumbar region
CPT/HCPCS: 36415; 85651; 86140

== ENCOUNTER 2021-05-16 16:23 | Outpatient (CLI) | payer MEDICARE, OTHER, SELFPAY ==
--- NOTE | 2021-05-16 16:15 | MR_ITS ---
WS: [id number] MRI LUMBAR SPINE NONCONTRAST TECHNIQUE: Sagittal T1, T2 and STIR imaging. Axial T1 and T2 imaging. CLINICAL INFORMATION: M46.46 - Discitis, unspecified, lumbar region COMPARISON: MRI 02/27/2021 and 10/3020 FINDINGS: Mild lumbar curve. No acute compression. No high-grade central canal stenosis. Disc space narrowing w orse at L3-L4 and L4-L5. Endplate edema L3-L4 L4-L5 previously described has improved with mild degen erative endplate edema at these levels. No evidence of paravertebral inflammation or epidural abscess . L1-L2: Mild annular bulging. Slight narrowing of the RIGHT subarticular recess. Mild facet arthropath y. Spinal canal is patent. Mild RIGHT foraminal narrowing. L2-L3: Mild annular bulging with narrowing of the LEFT subarticular recess. Slight impingement rosalba sing LEFT L3 nerve root. Small LEFT foraminal protrusion with mild LEFT foraminal narrowing. Moderate facet arthropathy. L3-L4: Mild disc bulging with slight narrowing of the RIGHT subarticular recess. Mild RIGHT foraminal narrowing. LEFT foramen is patent. Moderate facet arthropathy. L4-L5: Mild disc bulging with osteophytic ridging. Moderate facet arthropathy. Mild LEFT greater than RIGHT foraminal narrowing. L5-S1: Mild disc bulging with slight effacement of ventral thecal sac. Advanced facet arthropathy. Mi ld LEFT foraminal narrowing. RIGHT foramen is patent. Visualized pelvic bony structures: Normal. Paravertebral soft tissues: Normal. Small bilateral renal cysts. MR/MR lumbar spine wo con* [id number] IMPRESSION: 1. Mild lumbar curve. No acute compression. No high-grade central canal stenos is. 2. Degenerative disc disease worse at L3-L4 and L4-L5. Previously described en dplate edema has improved. This is degenerative in etiology. No evidence of dis citis today. 3. No paravertebral inflammatory changes. Normal signal within the disc spaces . 4. No other significant changes compared to previous.
== END 2021-05-16 16:24 | disposition home or self-care (01) ==
LOC: RAD 16:37
PROVIDERS: PCP Family Medicine; Visit Provider Orthopaedic Surgery
DX: M46.46 Discitis, unspecified, lumbar region (principal)
CPT/HCPCS: 72148

== ENCOUNTER → 2021-05-17 09:07 | Outpatient (BNVA) | payer MEDICARE, OTHER, SELFPAY | PROVIDERS: PCP Family Medicine; Visit Provider Anesthesiology Pain Medicine | DX: G89.29 Other chronic pain (principal); M51.17 Intervertebral disc disorders with radiculopathy, lumbosacral region; M47.816 Spondylosis without myelopathy or radiculopathy, lumbar region; M47.812 Spondylosis without myelopathy or radiculopathy, cervical region; M50.90 Cervical disc disorder, unspecified, unspecified cervical region; Z79.891 Long term (current) use of opiate analgesic; Z87.891 Personal history of nicotine dependence | CPT/HCPCS: 99214; 99215 ==

== ENCOUNTER → 2021-06-05 13:30 | Outpatient (BNVA) | payer MEDICARE, OTHER, SELFPAY | PROVIDERS: PCP Family Medicine; Visit Provider Anesthesiology Pain Medicine | DX: G89.29 Other chronic pain (principal); M54.12 Radiculopathy, cervical region; Z87.891 Personal history of nicotine dependence | CPT/HCPCS: 62321; J1100 ==

== ENCOUNTER → 2021-06-07 15:41 | Outpatient (BNVA) | payer MEDICARE, OTHER, SELFPAY | PROVIDERS: PCP Family Medicine; Visit Provider Orthopaedic Surgery | DX: Z01.818 Encounter for other preprocedural examination (principal) | CPT/HCPCS: 87635 ==

== ENCOUNTER 2021-06-12 10:02 | Day surgery (SDC) | payer MEDICARE, OTHER, SELFPAY ==
[2021-06-07 13:53] VITALS: BMI 25.6
--- NOTE | 2021-06-07 13:57 | ECG_ITS ---
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 Measurements Intervals [place] Rate: 65 P: 91 MT: 172 QRS: 62 QRSD: 86 T: 77 QT: 383 QTc: 401 Interpretive Statements SINUS RHYTHM Compared to ECG 03/21/2021 10:15:07 No significant changes Electronically Signed On 06-07-2021 17:18:33 CDT by Franck Pal M.D. [id number]
[2021-06-07 16:55] LABS: Basophils # 0.1 10^3/uL (0.0-0.1); Basophils % 0.9 %; Eosinophils # 0.3 10^3/uL (0.0-0.8); Eosinophils % 3.2 %; Hematocrit 45.9 % (37.0-47.0); Hemoglobin 14.7 g/dL (11.5-15.3); Lymphocytes # 2.8 10^3/uL (0.8-4.8); Lymphocytes % 31.7 %; Mean Corpuscular Hemoglobin 29.2 pg (28.0-34.0); Mean Corpuscular Volume 91.3 fl (81-99); Mean Platelet Volume 11.9 fL (7.4-10.4); Monocytes # 0.9 10^3/uL (0.2-0.9); Monocytes % 9.8 %; Neutrophils # 4.69 10^3/uL (1.8-7.7); Neutrophils % 54.2 %; Nucleated Red Blood Cells % 0 %; Platelet Count 221 10^3/cmm (130-400); Red Blood Count 5.03 10^6/uL (4.1-5.3); Red Cell Distribution Width 13.6 % (12.1-15.1); White Blood Count 8.7 10^3/uL (4.0-10.0)
--- NOTE | 2021-06-07 17:06 | ANES.PREANE2 ---
Pre-Anesthetic Assessment Height/Weight: Height 1.57 m Weight 63.503 kg Preop Diagnosis: Lumbar stenosis w/ neurogenic claudication Operation Date: 06/12/21 10:00 Proposed Procedures p Lumbar Spine Decompression L4/5 35687/M48.062(Not Applicable) - Terry Roberts, DO Was Beta Navjot taken within 24 hours: Yes Was Clonidine taken within 24 hours: N/A Social No alcohol and No tobacco Exam alert, oriented x 3, clear to auscultation bilaterally and regular rate & rhythm Airway Submandibular: within normal limits Cervical ROM: Other (Limited ROM) Mallampati: Class II Comments: Comments: Missing teeth Pulmonary None reported CV/HEM Atrial Fibrillation (Paroxysmal ), Coronary Artery Disease, Congestive Heart Failure and Myocardial Infarction (NSTEMI) Hx of pericardidits TTE 03/2021 CONCLUSIONS ?1. Normal left ventricular size, systolic function and wall ?thickness, with no regional wall motion abnormalities. Left ?ventricular ejection fraction is estimated at 60 %. Grade II ?diastolic dysfunction, moderately elevated filling pressures. ?2. Normal right ventricular size and systolic function. ?3. Pulmonary artery pressure estimated at 31 mmHg. ?4. There may not have been any significant change when compared ?to previous echocardiogram dated 01/20/2021. 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, and hx of ostomy now reversed Chronic constipation Musc/skel Osteoarthritis/DJD GOUT Discitis Lumbar stenosis w/ neurogenic claudication Hx of Necrotizing fasciitis Hx of scleroderma in chart, patient denies Neuropsych Anxiety and Headache Anesthetic Plan ASA status: 3 Anesthesia: Anesthesia Evaluation and General Other: We discussed risk and benefits of general anesthesia including PONV, sore throat (sometimes severe), corneal abrasion, positioning and peripheral nerve injuries, life threatening allergic reaction, post operative ICU admission requiring prolonged intubation, stroke, heart attack, , and rare incidences of recall. Patient consents to proceed with general anesthesia. Risk of > 500 ml blood loss (7ml/kg in children): No Medications/Allergies Home Medications Medication Instructions Recorded Confirmed Last Taken Type apixaban 5 mg tablet (Eliquis) 5 mg PO BID 90 Days #180 tab 01/09/21 06/07/21 01/10/21 Rx docusate sodium 100 mg capsule 100 mg PO BID 01/20/21 06/07/21 Unknown History carvedilol 12.5 mg tablet See Rx Instructions .ROUTE 02/06/21 06/07/21 Unknown History .COMPLEX tab amlodipine 2.5 mg tablet 2.5 mg PO QAM 03/21/21 06/07/21 Unknown History buspirone 7.5 mg tablet 5 mg PO BID 03/21/21 06/07/21 Unknown History lactulose 10 gram/15 mL oral 22.5 ml PO Q12H 03/21/21 06/07/21 Unknown History solution lisinopril 5 mg tablet 5 mg PO QAM 03/21/21 06/07/21 Unknown History ondansetron HCl 8 mg tablet 8 mg PO TID PRN 03/21/21 06/07/21 Unknown History gabapentin 100 mg capsule 100 mg PO BID #60 cap 05/17/21 06/07/21 Unknown Rx Prevagen 1 cap PO DAILY 06/07/21 06/07/21 Unknown History Allergies Allergy/AdvReac Type Severity Reaction Status Date / Time Latex, Natural Rubber Allergy ALGY-Rash Verified 06/05/21 13:35 olanzapine [From Zyprexa] Allergy hallucinati Verified 06/05/21 13:35 ons/agitate d lorazepam [From Ativan] AdvReac hallucination, Verified 06/05/21 13:35 agitated [facility] Anesthesia Medical History Atrial fibrillation Chronic nausea Colonic diverticular abscess Congestive heart failure Coronary disease Discitis, unspecified, lumbar region DM II (diabetes mellitus, type II), controlled GUILLAUME (generalized anxiety disorder) GERD (gastroesophageal reflux disease) Gout Hypertension Lumbar stenosis with neurogenic claudication Migraine MRSA bacteremia Myopericarditis Necrotizing fasciitis Non-ST elevation ID (NSTEMI) Osteoarthritis Pain of both breasts Pericarditis Scleroderma Small bowel obstruction Surgical History H/O colectomy H/O hernia repair History of cholecystectomy S/P dilatation of esophageal stricture S/P ANH-BSO Family History Mother Congestive heart failure Social History (Reviewed 06/07/21 @ 17:07 by SUNITHA Lowry Smoking and tobacco status: former smoker Alcohol intake: never Female Reproductive History Date of last menstrual period: 06/02/20 Data Anesthesia : 06/07/21 14:22 Short CBC 06/07/21 Range/Units 14:22 WBC 8.7 (4.0-10.0) 10^3/uL Hgb 14.7 (11.5-15.3) g/dL Hct 45.9 (37.0-47.0) % MCV 91.3 (81-99) fl Plt Count 221 (130-400) 10^3/cmm Neut % (Auto) 54.2 % Neut # (Auto) 4.69 (1.8-7.7) 10^3/uL Cardiac Studies: Echocardiogram 03/29/21 Echocardiogram Limited Views 01/20/21 Cardiac Event Monitor 12/20/20
[2021-06-12] VITALS (11 sets, daily range): BP systolic 145–218; BP diastolic 63–106; PULSE 57–87; RESP 12–18; TEMP 36.3–36.6; O2SAT 96–100
--- NOTE | 2021-06-12 | SCC_ITS ---
Procedure done: 1. Bilateral L4/5 laminectomy with partial facetectomies 8.5 seconds of fluoroscopic guidance, for a cumulative dose of 2.02 mGy, was provided to Dr. Roberts by the radiology department. C-arm images of the lumbar spine were saved for the patient's permanent record. [facility]
--- NOTE | 2021-06-12 10:23 | P.ANESUD_ITS ---
Pre-Anesthetic Update Pre-Anesthetic Assessment: Date of Surgery/Procedure: 06/12/21 Preop Julissa gnosis: Lumbar stenosis w/neurogenic Claudication Proposed Procedure: Operation Date: 06/12/21 11:40 Proposed Procedures p Lumbar Spine Decompression L4/5 83857/M48.062(Not Applicable) - Terry Roberts, DO Any changes to Pre-Anesthetic Assessment?: No Last Intake: Intake Last Liquid Date 06/11/21 Last Liquid Time 18:00 Last Solid Date 06/11/21 Last Solid Time 18:00 Vitals: Temperature 97.7 F 06/12/21 10:14 Temperature Source Temporal Artery S can 06/12/21 10:14 Pulse Rate 66 06/12/21 10:14 Respiratory Rate 16 06/12/21 10:14 Blood Pressure 174/80 06/12/21 10:14 Blood Pressure Jade n 111 06/12/21 10:14 Pulse Oximetry 99 06/12/21 10:14 Oxygen Delivery Me thod 06/12/21 10:17 Exam: Pre-Anes Outpt Exam: alert, oriented x 3, clear to auscultation bilaterally and regular rate & rhythm Cardiac Studies: Echocardiogram 03/29/21 Echocardiogram Limited Views 01/20/21 Cardiac Event Monitor 12/20/20
[2021-06-12] MEDS: sodium chloride 0.9% 1,000 ML 30 ML IV (10:25)
--- NOTE | 2021-06-12 11:19 | W.PM.OPSUD ---
Surgery/Procedure H&P Update DATE OF PROCEDURE: June 12, 2021 DATE H&P PERFORMED: 05/30/21 H&P UPDATE INFORMATION: I have reviewed H&P completed within last 30 days, I have examined patient prior to procedure and No changes to prior documentation PREOP DIAGNOSIS: Lumbar stenosis w/neurogenic Claudication PLANNED PROCEDURE: Operation Date: 06/12/21 11:40 Proposed Procedures p Lumbar Spine Decompression L4/5 81161/M48.062(Not Applicable) - Terry Roberts DO
--- NOTE | 2021-06-12 12:59 | PM.OP ---
Operative Report Date of procedure: June 12, 2021 Pre-op diagnosis: Preop Diagnosis Lumbar stenosis w/neurogenic Claudication Post-op diagnosis: same Procedure done: 1. Bilateral L4/5 laminectomy with partial facetectomies Surgeon: Terry Roberts Police Detention Attendant: Itz Jeffers Police Detention Attendant: The surgical instrument repair specialist, Itz Jeffers, JUDITH was needed for his expertise under the microscope. He was important and necessary throughout the procedure to complete in a safe and timely manner. He assisted with patient positioning prepping and draping tissue retraction suctioning of the operative field protection of the dural sac and tissue closure Estimated blood loss (mL): 10 Procedure: 1. Bilateral L4/5 laminectomy with partial facetectomies Patient is brought to the operative suite. After undergoing anesthesia they are placed in the prone position. All areas of impingement are well padded. Patient is then prepped and draped in the normal sterile fashion. A skin incision is made over the L4/5 level. This is confirmed under c-arm guidance. A series of dilators are passed and the tubular retractor is docked on the L4 lamina. A bovie is used to clear the soft tissue off the lamina and the L 4/5 facet joint. A high speed jeromy is then used to perform the laminectomy and take down the medial aspect of the L 4/5 facet joint. A kerrison rongeure was then used to take down the remaining lamina and smooth the edged of the laminectomy up to the point where the ligamentum flavum attaches. Attention was then brought to the medial aspect of the facet joint. The remaining medial aspect of the superior and inferior aspect of the facet joint were taken down with the kerrison from the pedicle of L4 to L 5. The facet joint had significant hypertrophy. Attention was then brought to the Ligamentum Flavum. The ligament was taken down from the lamina of L4 to L5 and out medially to the remaining facet joint. The ligament was thick. The dura was then exposed. The dura was in good repair. The L4 nerve was then traced with a curette out the L4/5 foramen and found to be adequately decompressed. The L5 nerve was traced with a curette around the L5 pedicle. The lateral recess was opened with a kerrison helping to further decompress the L5 nerve. The tubular retractor was then tilted to the contralateral side. The bovie was used to take down the soft tissue on the spinous process. The high speed jeromy was used to take down the spinous process and then the contralateral lamina of L4. The kerrison rongeur was used to take down the remaining lamina to the point where the ligamentum flavum attached and the ligamentum flavum was taken down from L4 to L5. The kerrison rongeur was then used to reach across and take down the medial aspect of the contralateral L4/5 facet joint.The currete was used to trace the contralateral L4 nerve out the L4/5 foramen to make sure it was decompressed adequatesly and the L5 was traced around the L5 pedicle. The lateral recess was opened further with the kerrison to ensure the L5 is adequately decompressed. Wound is then irrigated copiously with saline and surgiflo is used to stop any bleeding. The tubular retractor is removed and the wound is closed with vicryl and monocryl suture. Glue is then used to protect the wound. A sterile dressing is then placed. Patient was then placed in the supine position and transferred to the PACU in stable condition.
[2021-06-12] MEDS: ondansetron 2 mg/ML SDV 2 mL 4 MG IVP (13:10)
[2021-06-12] MEDS: metoclopramide 5 mg/mL SDV 2 mL 10 MG (13:20)
--- NOTE | 2021-06-12 13:30 | SUR.PHASEI ---
13:10 RECEIVED PATIENT FROM OR STAFF. AIRWAY PATENT.NSR ON MONITOR. MEDICATED FOR PAIN AND ELEVATED BP BY GLOVE STITCHER
--- NOTE | 2021-06-12 13:32 | SUR.PHASEI ---
13:15 MEDICATED FOR NAUSEA. VENTILATING WELL.
--- NOTE | 2021-06-12 13:33 | XR_ITS ---
WS: [id number] INTRAOPERATIVE TECHNIQUE: 2 Spot fluoroscopic images for intraoperative purposes. FLUOROSCOPY TIME: 8.5 seconds CLINICAL INFORMATION: OR PICS COMPARISON: None. FINDINGS: Localization marker projected over the LEFT L4-L5 interspace. XR/XR lumbar spine 1V port [id number] IMPRESSION: Images obtained for intraoperative purposes.
--- NOTE | 2021-06-12 13:34 | SUR.PHASEI ---
RE MEDICATED FOR NAUSEA.
[2021-06-12] MEDS: HYDROcodone-acetaminophen 5-325 mg Tablet 1 TAB PO (14:07)
--- NOTE | 2021-06-12 16:02 | ANE.PACU2 ---
Inpatient post-anesthesia follow up: Airway intact: Yes Vital signs: Temperature 97.5 F Pulse Rate 68 Respiratory Rate 16 Blood Pressure 174/70 Pulse Oximetry 98 Oxygen Delivery Me thod Room Air Oxygen Flow Rate 6 Fraction of Inspir ed Oxygen Hydration adequate: Yes Nausea and vomiting: No Pain level: 3 Mental status: Baseline
== END 2021-06-12 14:20 | disposition home or self-care (01) ==
PROVIDERS: Anesthesiology; PCP Family Medicine; Visit Provider Orthopaedic Surgery
PROC: (CPT 63005; principal; 2021-06-12 11:30)
DX: M48.062 Spinal stenosis, lumbar region with neurogenic claudication (principal); I48.0 Paroxysmal atrial fibrillation; I25.10 Atherosclerotic heart disease of native coronary artery without angina pectoris; I50.9 Heart failure, unspecified; I25.2 Old myocardial infarction
CPT/HCPCS: 63047; 72020; 76000; 85025; 93005; J0690; J1100; J2405; J2710; J2765; J3010; J3490; J7030

== ENCOUNTER 2021-06-14 03:29 | Emergency (ER) | payer MEDICARE, OTHER, SELFPAY ==
[2021-06-14 03:31] VITALS: BP 136/75; PULSE 80; RESP 19; TEMP 37.1; O2SAT 94; BMI 25.6
--- NOTE | 2021-06-14 03:41 | XRR_ITS ---
PROCEDURE INFORMATION: Exam: XR Abdomen Exam date and time: 06/14/2021 3:49 AM Age: 76 years old Clinical indication: Constipation; Prior surgery; Surgery type: Lumbar. Colectomy. Hernia repair. Gb. ; Patient HX: Recent lumbar surgery. On post op pain medication. Has been constipated for the last two days with no bm. TECHNIQUE: Imaging protocol: XR of the abdomen. Views: Frontal supine view of the abdomen. 1 View. COMPARISON: CR XR abdomen min 2V [id number] 03/22/2021 5:46 AM FINDINGS: Gastrointestinal tract: Nonobstructive bowel gas pattern with moderate colonic stool burden. Intraperitoneal space: Surgical clips in the right quadrant and left hemiabdomen. Bones/joints: Unremarkable. Soft tissues: Tissue tacks are seen in the ventral abdominal wall. XR/XR KUB [id number] IMPRESSION: Nonobstructive bowel gas pattern with moderate colonic stool burden.
--- NOTE | 2021-06-14 03:45 | ED_ITS ---
HPI - Abdominal Pain General: Chief Complaint: Abdominal Pain Stated Complaint: bowl restriction Time Seen by Provider: 06/14/21 03:30 Source: patient Mode of arrival: ambulatory Limitations: no limitations History of Present Illness: 76-year-old female who states she has had multiple small bowel obstruction in the past multiple surgeries on her abdomen. She states that she recently had a back surgery earlier this week and can get by obstruction in the past with anesthesia or previous surgeries. She states that she been taking hydrocodone and has not had a bowel movement last 2 days she been having increasing abdominal pain as well. She denies any vomiting or diarrhea she is concerned she may have a bowel obstruction. Associated Symptoms: Reports constipation; Denies chills, dysuria and fever(s) Related Data: Date of Last Menstrual Period: 06/02/20 Review of Systems Const: Denies: fever(s), chills, body aches or change in appetite Eyes: Denies: blurry vision or eye discomfort ENMT: Denies: throat pain or dental pain Card: Denies: chest pain Resp: Denies: dyspnea GI: Reports: abdominal pain and constipation : Denies: dysuria Musc: Denies: neck pain or back pain Skin/Breast: Denies: rash Neuro: Denies: headache(s) Psych: Denies: depression Juan Francisco/Lymph: Denies: easy bruising All/Imm: Denies: urticaria PFSH ED PFSH: Medical History Atrial fibrillation Chronic nausea Colonic diverticular abscess Congestive heart failure Coronary disease Discitis, unspecified, lumbar region DM II (diabetes mellitus, type II), controlled GUILLAUME (generalized anxiety disorder) GERD (gastroesophageal reflux disease) Gout Hypertension Lumbar stenosis with neurogenic claudication Migraine MRSA bacteremia Myopericarditis Necrotizing fasciitis Non-ST elevation [place] (NSTEMI) Osteoarthritis Pain of both breasts Pericarditis Scleroderma Small bowel obstruction Surgical History H/O colectomy H/O hernia repair History of cholecystectomy S/P dilatation of esophageal stricture S/P ANH-BSO Family History Mother Congestive heart failure Social History Smoking and tobacco status: former smoker Alcohol intake: never Female Reproductive History: Date of last menstrual period: 06/02/20 Physical Exam Const: COMMON NORMALS: no acute distress, patient oriented x3 and healthy appearing HENMT: COMMON NORMALS: normocephalic and atraumatic HEAD & SCALP: normocephalic and atraumatic Eye: COMMON NORMALS: Equal, round and reactive pupils present and EOMs intact bilaterally PUPIL: Yes Equal, round and reactive pupils present Neck/C-Spine: COMMON NORMALS: full ROM and supple Chest: COMMONS NORMALS: normal inspection of the chest and normal palpation of entire chest wall Resp: COMMON NORMALS: normal respiratory effort, No retractions, No use of accessory muscles and clear to auscultation bilaterally AUSCULTATION: clear to auscultation bilaterally Cardio: COMMON NORMALS: regular rate, regular rhythm and No murmurs present (Cardio) RATE: regular rate RHYTHM: regular rhythm GI: COMMON NORMALS: Normal to inspection, nondistended, normoactive bowel sounds present, Soft to palpation, non-tender and no masses PALPATION: Yes Soft to palpation Extremity: COMMON NORMALS: normal to inspection and full ROM Neuro: COMMON NORMALS: patient oriented x3, moves all extremities and no focal motor deficits Psych: COMMON NORMALS: mental status grossly normal, Normal thought process present and cooperative THOUGHT PROCESS: Normal thought process present Skin: COMMON NORMALS: no rashes or lesions noted and no wounds GENERAL SKIN EXAM: no rashes or lesions noted Course Vital Signs: Vital signs: Vital Signs Temperature 98.7 F 06/14/21 03:31 Pulse Rate 83 06/14/21 05:15 Respiratory Rate 16 06/14/21 05:15 Blood Pressure 155/69 06/14/21 05:15 Pulse Oximetry 95 06/14/21 05:15 MDM - Abdominal Pain Medical Decision Making Patient presents here with abdominal pain likely from constipation from her hydrocodone she has no signs of bowel obstruction she feels improved here she is to take lactulose along with MiraLAX follow-up with PCP and return if worsening she understands agrees to plan. Lab Data : 06/14/21 04:14 06/14/21 04:14 Labs/Radiology: Radiology Impressions KUB X-Ray 06/14/21 03:41 IMPRESSION: Nonobstructive bowel gas pattern with moderate colonic stool burden. Abdomen/Pelvis CT 06/14/21 03:57 IMPRESSION: 1. No acute findings. 2. Moderate colonic stool burden. COMMENTS: Consistent with the [employer]'s Incidental Findings Committee white paper (J Am Patricia Radiol 2018): Any incidental renal lesion less than 1 cm or classified as too small to characterize, or any incidental cystic renal lesion characterized as simple-appearing, is likely benign. No follow-up imaging is recommended for these lesions per consensus recommendations based on imaging criteria. Laboratory Results WBC 11.6 10^3/uL (4.0-10.0) H 06/14/21 04:14 RBC 4.54 10^6/uL (4.1-5.3) 06/14/21 04:14 Hgb 13.5 g/dL (11.5-15.3) 06/14/21 04:14 Hct 41.3 % (37.0-47.0) 06/14/21 04:14 MCV 91.0 fl (81-99) 06/14/21 04:14 MCH 29.7 pg (28.0-34.0) 06/14/21 04:14 MCHC 32.7 g/dL (30.0-36.0) 06/14/21 04:14 RDW 13.6 % (12.1-15.1) 06/14/21 04:14 Plt Count 176 10^3/cmm (130-400) 06/14/21 04:14 MPV 10.9 fL (7.4-10.4) H 06/14/21 04:14 Neut % (Auto) 66.2 % 06/14/21 04:14 Lymph % (Auto) 19.2 % 06/14/21 04:14 [place] % (Auto) 11.9 % 06/14/21 04:14 Eos % (Auto) 2.1 % 06/14/21 04:14 Baso % (Auto) 0.3 % 06/14/21 04:14 Neut # (Auto) 7.72 10^3/uL (1.8-7.7) H 06/14/21 04:14 Lymph # (Auto) 2.2 10^3/uL (0.8-4.8) 06/14/21 04:14 [place] # (Auto) 1.4 10^3/uL (0.2-0.9) H 06/14/21 04:14 Eos # (Auto) 0.2 10^3/uL (0.0-0.8) 06/14/21 04:14 Baso # (Auto) 0.0 10^3/uL (0.0-0.1) 06/14/21 04:14 Nucleated RBC % (auto) 0 % 06/14/21 04:14 Nucleated RBCs # 0.0 /100WBC 06/14/21 04:14 Sodium 140 mmol/L (136-145) 06/14/21 04:14 Potassium 3.7 mmol/L (3.5-5.1) 06/14/21 04:14 Chloride 105 mmol/L (98-107) 06/14/21 04:14 Carbon Dioxide 26 mmol/L (22-29) 06/14/21 04:14 Anion Gap 12.7 (5-19) 06/14/21 04:14 BUN 12 mg/dL (8-23) 06/14/21 04:14 Creatinine 0.7 mg/dL (0.5-0.9) 06/14/21 04:14 GFR Calculation Not Reportable 06/14/21 04:14 Glucose 105 mg/dL (65-115) 06/14/21 04:14 Calculated Osmolality 290 mOsm/kg (285-295) 06/14/21 04:14 Calcium 9.3 mg/dL (8.5-10.5) 06/14/21 04:14 Total Bilirubin 0.9 mg/dL (0.15-1.2) 06/14/21 04:14 AST 35 U/L (0-32) H 06/14/21 04:14 ALT 59 U/L (0-33) H 06/14/21 04:14 Alkaline Phosphatase 174 IU/L (35-105) H 06/14/21 04:14 Total Protein 5.8 g/dL (6.6-8.7) L 06/14/21 04:14 Albumin 3.9 g/dL (3.5-5.2) 06/14/21 04:14 Globulin 1.9 g/dL (1.3-4.6) 06/14/21 04:14 Lipase 13 U/L (13-60) 06/14/21 04:14 Urine Color Yellow (Yellow) 06/14/21 05:13 Urine Appearance Clear (CLEAR) 06/14/21 05:13 Urine pH 5 (5-7) 06/14/21 05:13 Ur Specific [place] 1.015 (1.005-1.030) 06/14/21 05:13 Urine Protein Neg (Negative) 06/14/21 05:13 Urine Glucose (UA) Norm (Normal) 06/14/21 05:13 Urine Ketones Negative (Negative) 06/14/21 05:13 Urine Blood 2+ (Negative) H 06/14/21 05:13 Urine Nitrate Negative (Negative) 06/14/21 05:13 Urine Bilirubin Neg (Negative) 06/14/21 05:13 Urine Urobilinogen Norm mg/dL (Negative) 06/14/21 05:13 Ur Leukocyte Esterase Negative (Negative) 06/14/21 05:13 Urine RBC 5-10 /hpf (0-2) H 06/14/21 05:13 Urine WBC 0-4 /hpf (0-5) H 06/14/21 05:13 Ur Squamous Epith Cells 0-4 /hpf (0-5) H 06/14/21 05:13 Amorphous Sediment Not Reportable 06/14/21 05:13 Urine Bacteria None /hpf (NONE) 06/14/21 05:13 Urine Mucus 1+ /hpf 06/14/21 05:13 Discharge Plan Discharge Patient Disposition: Home Clinical Impression: Constipation Qualifiers: Constipation type: unspecified constipation type Qualified Code(s): K59.00 - Constipation, unspecified Condition: Stable Prescriptions: New Miralax 17 gram/dose powder 17 g PO DAILY PRN (Reason: constipation) Qty: 119 0RF No Action carvedilol 12.5 mg tablet See Rx Instructions .ROUTE .COMPLEX 0RF Rx Instructions: take 12.5mg qam and 6.25mg qpm gabapentin 100 mg capsule 100 mg PO BID Qty: 60 0RF Eliquis 5 mg tablet 5 mg PO BID 90 Days Qty: 180 1RF Rx Instructions: 340 B docusate sodium 100 mg Capsule 100 mg PO BID 0RF ondansetron HCl 8 mg tablet 8 mg PO TID PRN (Reason: Nausea And Vomiting) 0RF buspirone 7.5 mg tablet 5 mg PO BID 0RF lactulose 10 gram/15 mL solution 22.5 ml PO Q12H 0RF amlodipine 2.5 mg tablet 2.5 mg PO QAM 0RF lisinopril 5 mg tablet 5 mg PO QAM 0RF Prevagen 1 cap PO DAILY 0RF hydrocodone-acetaminophen 5-325 mg tablet 1 - 2 tab PO .Q4-6H Qty: 40 0RF Discharge Orders: Discharge ED (Routine); Ordered 06/14/21 Ordered By: Austen Martinez Referrals: Baldomero Britt MD [Primary Care Provider] - 1-3 days Discharge Diet: Advance as tolerated Discharge Activity: Resume usual activity Patient Instructions: Constipation (ED) Coding Level of Care Code ED Electronic Console Display Operator for Chg Fwd Exam Comprehensive
--- NOTE | 2021-06-14 03:57 | CTR_ITS ---
PROCEDURE INFORMATION: Exam: CT Abdomen And Pelvis With Contrast Exam date and time: 06/14/2021 5:01 AM Age: 76 years old Clinical indication: Constipation and nausea; Prior surgery; Surgery type: Lumbar. Colectomy. Hernia repair. Gb. ; Patient HX: Recent lumbar surgery. On post op pain medications. States no bm for two days. History of sbo. ; Additional info: Abd pain TECHNIQUE: Imaging protocol: Computed tomography of the abdomen and pelvis with contrast. Radiation optimization: All CT scans at this facility use at least one of these dose optimization techniques: automated exposure control; mA and/or kV adjustment per patient size (includes targeted exams where dose is matched to clinical indication); or iterative reconstruction. Contrast material: OMNI 300; Contrast volume: 95 ml; Contrast route: INTRAVENOUS (IV); COMPARISON: CT abdomen pelvis w con* [id number] 03/21/2021 2:23 AM RADIATION DOSE METRICS: Total DLP (mGy-cm): 1242.58 FINDINGS: Liver: Normal. No mass. Gallbladder and bile ducts: Cholecystectomy. Prominence of the common bile duct with smooth tapering to the ampulla appears similar to prior and likely relates to the post cholecystectomy state. Pancreas: Incidental note of pancreas divisum. Spleen: Calcified splenic granulomas. Adrenal glands: Normal. No mass. Kidneys and ureters: Subcentimeter low-density lesions in the kidneys are too small to characterize, though statistically benign. No hydronephrosis. Stomach and bowel: Surgical changes are seen in the small bowel and rectum. No bowel obstruction. Moderate colonic stool burden. Appendix: No evidence of appendicitis. Intraperitoneal space: Unremarkable. No free air. No significant fluid collection. Vasculature: Heavy burden of atherosclerotic plaque in the abdominal aorta and branch vessels. No aneurysm. Lymph nodes: Unremarkable. No enlarged lymph nodes. Urinary bladder: Unremarkable as visualized. Reproductive: Hysterectomy. Bones/joints: Osteopenia. Soft tissues: Tissue tacks seen in the ventral abdominal wall. CT/CT abdomen pelvis w con* [id number] IMPRESSION: 1. No acute findings. 2. Moderate colonic stool burden. COMMENTS: Consistent with the [employer]'s Incidental Findings Committee white paper (J Am Patricia Radiol 2018): Any incidental renal lesion less than 1 cm or classified as too small to characterize, or any incidental cystic renal lesion characterized as simple-appearing, is likely benign. No follow-up imaging is recommended for these lesions per consensus recommendations based on imaging criteria.
[2021-06-14 04:00] VITALS: BP 113/97; PULSE 90; RESP 16; O2SAT 94
[2021-06-14 04:25] LABS: Basophils % 0.3 %; Eosinophils # 0.2 10^3/uL (0.0-0.8); Eosinophils % 2.1 %; Hematocrit 41.3 % (37.0-47.0); Hemoglobin 13.5 g/dL (11.5-15.3); Lymphocytes # 2.2 10^3/uL (0.8-4.8); Lymphocytes % 19.2 %; Mean Corpuscular HGB Conc 32.7 g/dL (30.0-36.0); Mean Corpuscular Hemoglobin 29.7 pg (28.0-34.0); Mean Platelet Volume 10.9 fL (7.4-10.4); Monocytes # 1.4 10^3/uL (0.2-0.9); Monocytes % 11.9 %; Neutrophils # 7.72 10^3/uL (1.8-7.7); Neutrophils % 66.2 %; Nucleated Red Blood Cells % 0 %; Platelet Count 176 10^3/cmm (130-400); Red Blood Count 4.54 10^6/uL (4.1-5.3); Red Cell Distribution Width 13.6 % (12.1-15.1); White Blood Count 11.6 10^3/uL (4.0-10.0)
[2021-06-14 04:47] LABS: Alanine Aminotransferase 59 U/L (0-33); Albumin Level 3.9 g/dL (3.5-5.2); Alkaline Phosphatase 174 IU/L (35-105); Anion Gap 12.7 (5-19); Aspartate Amino Transferase 35 U/L (0-32); Blood Urea Nitrogen 12 mg/dL (8-23); Calcium 9.3 mg/dL (8.5-10.5); Carbon Dioxide 26 mmol/L (22-29); Chloride 105 mmol/L (98-107); Creatinine Clr Calc Pharmacy 54.0169; Globulin 1.9 g/dL (1.3-4.6); Glucose 105 mg/dL (65-115); Lipase 13 U/L (13-60); Osmolality Calculated 290 mOsm/kg (285-295); Potassium 3.7 mmol/L (3.5-5.1); Sodium 140 mmol/L (136-145); Total Bilirubin 0.9 mg/dL (0.15-1.2); Total Protein 5.8 g/dL (6.6-8.7)
[2021-06-14] MEDS: iohexol 300 mg/mL 100 mL Btl IV (04:59)
[2021-06-14 05:15] VITALS: BP 155/69; PULSE 83; RESP 16; O2SAT 95
[2021-06-14 05:31] LABS: Bilirubin Urine Neg (Negative); Blood Urine 2+ (Negative); Glucose Urine UA Norm (Normal); Ketones Urine Negative (Negative); Nitrate Urine Negative (Negative); Protein Urine Neg (Negative); Specific Gravity, Urine 1.015 (1.005-1.030); Urine Appearance Clear (CLEAR); Urine Color Yellow (Yellow); pH Urine 5 (5-7)
[2021-06-14 05:32] LABS: Add Urine Microscopic? YES; Leukocyte Esterase Urine Negative (Negative); Mucus Urine 1+ /hpf; Squamous Epithelial Cell Urine 0-4 /hpf (0-5); Urobilinogen Urine Norm (Negative); WBC Urine 0-4 /hpf (0-5)
[2021-06-14 05:33] LABS: Add Urine Culture? No
[2021-06-14 05:43] VITALS: BP 155/69; PULSE 83; RESP 16; O2SAT 95
== END 2021-06-14 05:41 | disposition home or self-care (01) ==
PROVIDERS: Emergency Provider Emergency Medicine; PCP Family Medicine
DX: K59.00 Constipation, unspecified (principal); Z79.01 Long term (current) use of anticoagulants; Z79.891 Long term (current) use of opiate analgesic; Z98.890 Other specified postprocedural states
CPT/HCPCS: 74018; 74177; 80053; 81001; 83690; 85025; 99284; Q9967

== ENCOUNTER → 2021-06-29 10:28 | Outpatient (BNVA) | payer MEDICARE, OTHER, SELFPAY | PROVIDERS: PCP Family Medicine; Visit Provider Orthopaedic Surgery | DX: M48.062 Spinal stenosis, lumbar region with neurogenic claudication (principal) | CPT/HCPCS: 99024 ==

== ENCOUNTER → 2021-07-27 10:03 | Outpatient (BNVA) | payer MEDICARE, OTHER, SELFPAY | PROVIDERS: PCP Family Medicine; Visit Provider Orthopaedic Surgery | DX: Z47.89 Encounter for other orthopedic aftercare (principal); Z98.890 Other specified postprocedural states | CPT/HCPCS: 99024 ==

== ENCOUNTER → 2021-08-01 10:50 | Outpatient (BNVA) | payer MEDICARE, OTHER, SELFPAY | PROVIDERS: PCP Family Medicine; Visit Provider Internal Medicine Cardiovascular Disease | DX: I48.0 Paroxysmal atrial fibrillation (principal); I11.0 Hypertensive heart disease with heart failure; I50.9 Heart failure, unspecified; I45.5 Other specified heart block | CPT/HCPCS: 99214 ==

== ENCOUNTER → 2021-09-07 09:33 | Outpatient (BNVA) | payer MEDICARE, OTHER, SELFPAY | PROVIDERS: PCP Family Medicine; Visit Provider Orthopaedic Surgery | DX: Z47.89 Encounter for other orthopedic aftercare (principal); Z98.890 Other specified postprocedural states | CPT/HCPCS: 99024 ==

== ENCOUNTER 2021-10-09 06:00 | Outpatient (RCR) | payer MEDICARE, OTHER, SELFPAY | END 2021-10-19 23:59 | disposition home or self-care (01) | LOC: SPT 06:00 | PROVIDERS: PCP Family Medicine; Referring Provider Family Medicine; Visit Provider Family Medicine | DX: H81.10 Benign paroxysmal vertigo, unspecified ear (principal) | CPT/HCPCS: 95992; 97162 ==

== ENCOUNTER 2021-11-09 21:19 | Emergency (ER) | payer MEDICARE, OTHER, SELFPAY ==
[2021-11-09 21:24] VITALS: BP 209/110; PULSE 88; RESP 16; TEMP 36.6; O2SAT 98
--- NOTE | 2021-11-09 21:32 | CTR_ITS ---
PROCEDURE INFORMATION: Exam: CT Abdomen And Pelvis Without Contrast Exam date and time: 11/09/2021 9:44 PM Age: 76 years old Clinical indication: Abdominal pain; Generalized; Prior surgery; Surgery type: Gb. Hernia repair. Appy. Colectomy. Colostomy reversal. Patient HX: C/O severe abd pain. History of chronic sbo. TECHNIQUE: Imaging protocol: Computed tomography of the abdomen and pelvis without contrast. Radiation optimization: All CT scans at this facility use at least one of these dose optimization techniques: automated exposure control; mA and/or kV adjustment per patient size (includes targeted exams where dose is matched to clinical indication); or iterative reconstruction. COMPARISON: CT abdomen pelvis w con* [id number] 06/14/2021 5:01 AM RADIATION DOSE METRICS: Total DLP (mGy-cm): 518.99 FINDINGS: Liver: Normal. No mass. Gallbladder and bile ducts: Moderate pneumobilia seen within the liver and within the common bile duct. Status post cholecystectomy. Pancreas: Normal. No ductal dilation. Spleen: Normal. No splenomegaly. Adrenal glands: Normal. No mass. Kidneys and ureters: Normal. No hydronephrosis. Stomach and bowel: Status post partial colectomy. There are nondilated fluid-filled small bowel loops present similar to that seen previously on 06/14/2021. Moderate stool is present within the colon. Appendix: Status post appendectomy. Intraperitoneal space: Unremarkable. No free air. No significant fluid collection. Vasculature: Moderate calcifications seen within the thoracic and abdominal aorta, iliac arteries and femoral arteries bilaterally. Lymph nodes: Unremarkable. No enlarged lymph nodes. Urinary bladder: Unremarkable as visualized. Reproductive: Unremarkable as visualized. Bones/joints: Unremarkable. No acute fracture. Soft tissues: Unremarkable. CT/CT abdomen pelvis con [id number] IMPRESSION: 1. The patient is status post cholecystectomy and there is moderate pneumobilia seen within the liver and common bile duct. 2. Nondilated fluid-filled small bowel loops are again seen similar to that present on 06/14/2021. 3. Moderate stool present within the colon.
--- NOTE | 2021-11-09 21:43 | W.ED.ABDPA2 ---
HPI - Abdominal Pain General: Chief Complaint: Abdominal Pain Stated Complaint: ABD Pain Time Seen by Provider: 11/09/21 21:20 Source: patient Mode of arrival: ambulatory Limitations: no limitations History of Present Illness: 76-year-old female who has history of multiple small bowel obstructions in the past states that today at 6 she started having some left lower quadrant abdominal pain she is felt nauseous states pain is sharp in nature rates it a 9 out of 10 denies any fever denies any worsening improving factors denies any radiation of her pain. Associated Symptoms: Reports nausea; Denies chills, dysuria and fever(s) Related Data: Date of Last Menstrual Period: 06/02/20 Review of Systems Const: Denies: fever(s), chills, body aches or change in appetite Eyes: Denies: blurry vision or eye discomfort ENMT: Denies: throat pain or dental pain Card: Denies: chest pain Resp: Denies: dyspnea GI: Reports: abdominal pain and nausea : Denies: dysuria Musc: Denies: neck pain or back pain Skin/Breast: Denies: rash Neuro: Denies: headache(s) Psych: Denies: depression Juan Francisco/Lymph: Denies: easy bruising All/Imm: Denies: urticaria PFSH ED PFSH: Medical History Atrial fibrillation Chronic nausea Colonic diverticular abscess Congestive heart failure Coronary disease Discitis, unspecified, lumbar region DM II (diabetes mellitus, type II), controlled GUILLAUME (generalized anxiety disorder) GERD (gastroesophageal reflux disease) Gout Hypertension Lumbar stenosis with neurogenic claudication Migraine MRSA bacteremia Myopericarditis Necrotizing fasciitis Non-ST elevation [place] (NSTEMI) Osteoarthritis Pain of both breasts Pericarditis Scleroderma Small bowel obstruction Surgical History H/O colectomy H/O hernia repair History of cholecystectomy S/P dilatation of esophageal stricture S/P ANH-BSO Family History Mother Congestive heart failure Social History Smoking and tobacco status: former smoker Alcohol intake: never Female Reproductive History: Date of last menstrual period: 06/02/20 Physical Exam Const: COMMON NORMALS: patient oriented x3 HENMT: COMMON NORMALS: normocephalic and atraumatic HEAD & SCALP: normocephalic and atraumatic Eye: COMMON NORMALS: Equal, round and reactive pupils present and EOMs intact bilaterally PUPIL: Yes Equal, round and reactive pupils present Neck/C-Spine: COMMON NORMALS: full ROM and supple Chest: COMMONS NORMALS: normal inspection of the chest and normal palpation of entire chest wall Resp: COMMON NORMALS: normal respiratory effort, No retractions, No use of accessory muscles and clear to auscultation bilaterally AUSCULTATION: clear to auscultation bilaterally Cardio: COMMON NORMALS: regular rate, regular rhythm and No murmurs present (Cardio) RATE: regular rate RHYTHM: regular rhythm GI: COMMON NORMALS: Normal to inspection, nondistended, normoactive bowel sounds present, Soft to palpation and no masses PALPATION: Yes Soft to palpation and Yes Tenderness to palpation present (GI) Details: LLQ Extremity: COMMON NORMALS: normal to inspection and full ROM Neuro: COMMON NORMALS: patient oriented x3, moves all extremities and no focal motor deficits Psych: COMMON NORMALS: mental status grossly normal, Normal thought process present and cooperative THOUGHT PROCESS: Normal thought process present Skin: COMMON NORMALS: no rashes or lesions noted and no wounds GENERAL SKIN EXAM: no rashes or lesions noted Course Vital Signs: Vital signs: Vital Signs Temperature 97.8 F 11/09/21 21:24 Pulse Rate 79 11/09/21 23:32 Respiratory Rate 16 11/09/21 23:32 Blood Pressure 147/106 11/09/21 23:32 Pulse Oximetry 96 11/09/21 23:32 Oxygen Delivery Me thod 11/09/21 21:24 MDM - Abdominal Pain Medical Decision Making Patient presents here with abdominal pain is since resolved CT showed no acute findings possibly gastritis her blood work here is normal her exam at discharge is benign she is stable for discharge we will start on Protonix she is to follow-up PCP and return if worsening Lab Data : 11/09/21 21:50 11/09/21 21:50 Labs/Radiology: Radiology Impressions Abdomen/Pelvis CT 11/09/21 21:51 IMPRESSION: 1. Nondilated fluid-filled small bowel loops are again seen, findings that could represent ileus. 2. There is gastric wall thickening and edema seen in the mid to distal stomach, finding that could represent gastritis. 3. Bilateral benign renal cysts, largest present on the left measuring 8 mm. No further workup needed. 4. Pneumobilia again seen. COMMENTS: Consistent with the [employer]'s Incidental Findings Committee white paper (J Am Patricia Radiol 2018): Any incidental renal lesion less than 1 cm or classified as too small to characterize, or any incidental cystic renal lesion characterized as simple-appearing, is likely benign. No follow-up imaging is recommended for these lesions per consensus recommendations based on imaging criteria. Laboratory Results WBC 9.1 10^3/uL (4.0-10.0) 11/09/21 21:50 RBC 5.28 10^6/uL (4.1-5.3) 11/09/21 21:50 Hgb 16.0 g/dL (11.5-15.3) H 11/09/21 21:50 Hct 47.2 % (37.0-47.0) H 11/09/21 21:50 MCV 89.4 fl (81-99) 11/09/21 21:50 MCH 30.3 pg (28.0-34.0) 11/09/21 21:50 MCHC 33.9 g/dL (30.0-36.0) 11/09/21 21:50 RDW 12.5 % (12.1-15.1) 11/09/21 21:50 Plt Count 198 10^3/cmm (130-400) 11/09/21 21:50 MPV 11.3 fL (7.4-10.4) H 11/09/21 21:50 Neut % (Auto) 69.3 % 11/09/21 21:50 Lymph % (Auto) 17.6 % 11/09/21 21:50 [place] % (Auto) 8.8 % 11/09/21 21:50 Eos % (Auto) 3.1 % 11/09/21 21:50 Baso % (Auto) 0.8 % 11/09/21 21:50 Neut # (Auto) 6.31 10^3/uL (1.8-7.7) 11/09/21 21:50 Lymph # (Auto) 1.6 10^3/uL (0.8-4.8) 11/09/21 21:50 [place] # (Auto) 0.8 10^3/uL (0.2-0.9) 11/09/21 21:50 Eos # (Auto) 0.3 10^3/uL (0.0-0.8) 11/09/21 21:50 Baso # (Auto) 0.1 10^3/uL (0.0-0.1) 11/09/21 21:50 Nucleated RBC % (auto) 0 % 11/09/21 21:50 Nucleated RBCs # 0.0 /100WBC 11/09/21 21:50 Sodium 139 mmol/L (136-145) 11/09/21 21:50 Potassium 3.8 mmol/L (3.5-5.1) 11/09/21 21:50 Chloride 103 mmol/L (98-107) 11/09/21 21:50 Carbon Dioxide 23 mmol/L (22-29) 11/09/21 21:50 Anion Gap 16.8 (5-19) 11/09/21 21:50 BUN 8 mg/dL (8-23) 11/09/21 21:50 Creatinine 0.5 mg/dL (0.5-0.9) 11/09/21 21:50 GFR Calculation Not Reportable 11/09/21 21:50 Glucose 180 mg/dL (65-115) H 11/09/21 21:50 Calculated Osmolality 291 mOsm/kg (285-295) 11/09/21 21:50 Lactate 1.7 mmol/L (0.5-2.2) 11/09/21 21:50 Calcium 9.1 mg/dL (8.5-10.5) 11/09/21 21:50 Total Bilirubin 0.8 mg/dL (0.15-1.2) 11/09/21 21:50 AST 16 U/L (0-32) 11/09/21 21:50 ALT 11 U/L (0-33) 11/09/21 21:50 Alkaline Phosphatase 80 U/L (35-105) 11/09/21 21:50 Total Protein 6.3 g/dL (6.6-8.7) L 11/09/21 21:50 Albumin 3.9 g/dL (3.5-5.2) 11/09/21 21:50 Globulin 2.4 g/dL (1.3-4.6) 11/09/21 21:50 Lipase 26 U/L (13-60) 11/09/21 21:50 Urine Color Colorless (Yellow) 11/09/21 21:50 Urine Appearance Clear (CLEAR) 11/09/21 21:50 Urine pH 8 (5-7) H 11/09/21 21:50 Ur Specific [place] 1.010 (1.005-1.030) 11/09/21 21:50 Urine Protein Neg (Negative) 11/09/21 21:50 Urine Glucose (UA) Norm (Normal) 11/09/21 21:50 Urine Ketones Negative (Negative) 11/09/21 21:50 Urine Blood 2+ (Negative) H 11/09/21 21:50 Urine Nitrate Negative (Negative) 11/09/21 21:50 Urine Bilirubin Neg (Negative) 11/09/21 21:50 Prot Sulfosalicylic Acd Negative (Negative) 11/09/21 21:50 Urine Urobilinogen Norm mg/dL (Negative) 11/09/21 21:50 Ur Leukocyte Esterase Negative (Negative) 11/09/21 21:50 Urine RBC 15-25 /hpf (0-2) H 11/09/21 21:50 Urine WBC None /hpf (0-5) 11/09/21 21:50 Ur Squamous Epith Cells 0-4 /hpf (0-5) H 11/09/21 21:50 Ur Renal Epithelial Cell 0 /hpf 11/09/21 21:50 Amorphous Sediment 1+ /hpf 11/09/21 21:50 Urine Bacteria None /hpf (NONE) 11/09/21 21:50 Discharge Plan Discharge Patient Disposition: Home Clinical Impression: Abdominal pain Condition: Stable Prescriptions: New Protonix 40 mg tablet,delayed release (DR/EC) 40 mg PO DAILY Qty: 60 0RF ondansetron 4 mg tablet,disintegrating 4 mg PO Q6H PRN (Reason: nausea and vomiting) Qty: 14 0RF No Action Eliquis 5 mg tablet 5 mg PO BID 90 Days Qty: 180 2RF Rx Instructions: 340 B carvedilol 12.5 mg tablet See Rx Instructions .ROUTE .COMPLEX Rx Instructions: take 12.5mg qam and 6.25mg qpm oxycodone 5 mg tablet 5 mg PO Q4H PRN (Reason: pain) 7 Days Qty: 40 0RF amlodipine 2.5 mg tablet 2.5 mg PO QAM Qty: 90 1RF ondansetron HCl 8 mg tablet 8 mg PO TID PRN (Reason: Nausea And Vomiting) buspirone 7.5 mg tablet 5 mg PO BID lisinopril 5 mg tablet 5 mg PO QAM Prevagen 1 cap PO DAILY Miralax 17 gram/dose powder 17 g PO DAILY PRN (Reason: constipation) Qty: 119 0RF Discharge Orders: Discharge ED (Routine); Ordered 11/09/21 Ordered By: Austen Martinez Referrals: Baldomero Britt MD [Primary Care Provider] - 1-3 days Discharge Diet: Advance as tolerated Discharge Activity: Resume usual activity Patient Instructions: Abdominal Pain (ED) Coding Level of Care Code ED Lab Rn for Kennethg Fwd Exam Comprehensive
--- NOTE | 2021-11-09 21:51 | CTR_ITS ---
PROCEDURE INFORMATION: Exam: CT Abdomen And Pelvis With Contrast Exam date and time: 11/09/2021 9:59 PM Age: 76 years old Clinical indication: Abdominal pain; Generalized; Prior surgery; Surgery type: Gb. Appy. Hernia repair. Colectomy. Colostomy reversal. Patient HX: C/O severe abd pain. History of chronic sbo. TECHNIQUE: Imaging protocol: Computed tomography of the abdomen and pelvis with contrast. Radiation optimization: All CT scans at this facility use at least one of these dose optimization techniques: automated exposure control; mA and/or kV adjustment per patient size (includes targeted exams where dose is matched to clinical indication); or iterative reconstruction. Contrast material: OMNI 350; Contrast volume: 80 ml; Contrast route: INTRAVENOUS (IV); COMPARISON: CT abdomen pelvis wo con [id number] 11/09/2021 9:44 PM RADIATION DOSE METRICS: Total DLP (mGy-cm): 508.87 FINDINGS: Liver: Normal. No mass. Pneumobilia again seen. Gallbladder and bile ducts: Status post cholecystectomy. Pneumobilia again seen.. Pancreas: Normal. No ductal dilation. Spleen: Punctate calcifications are seen in the spleen compatible calcified granulomas. Adrenal glands: Normal. No mass. Kidneys and ureters: 8 mm hypoattenuation cyst is seen in the posterior aspect the left kidney. A 7 mm hypoattenuation cystic mass seen posterior aspect of the right kidney. Stomach and bowel: There is bowel wall thickening and some edema seen within the mid and distal stomach, findings that could represent gastritis. Status post partial colectomy. Nondilated fluid-filled small bowel loops present, findings that could represent ileus. Moderate stool is again seen within the colon. Appendix: No evidence of appendicitis. Intraperitoneal space: Unremarkable. No free air. No significant fluid collection. Vasculature: Unremarkable. No abdominal aortic aneurysm. Lymph nodes: Unremarkable. No enlarged lymph nodes. Urinary bladder: Unremarkable as visualized. Reproductive: Status post hysterectomy. Bones/joints: Status post left laminectomy at L5. Soft tissues: Unremarkable. CT/CT abdomen pelvis w con* [id number] IMPRESSION: 1. Nondilated fluid-filled small bowel loops are again seen, findings that could represent ileus. 2. There is gastric wall thickening and edema seen in the mid to distal stomach, finding that could represent gastritis. 3. Bilateral benign renal cysts, largest present on the left measuring 8 mm. No further workup needed. 4. Pneumobilia again seen. COMMENTS: Consistent with the [employer]'s Incidental Findings Committee white paper (J Am Patricia Radiol 2018): Any incidental renal lesion less than 1 cm or classified as too small to characterize, or any incidental cystic renal lesion characterized as simple-appearing, is likely benign. No follow-up imaging is recommended for these lesions per consensus recommendations based on imaging criteria.
[2021-11-09] MEDS: iohexol 350 mg/mL 100 mL Btl IV (22:01)
[2021-11-09 22:50] VITALS: BP 147/106; PULSE 79; RESP 16; O2SAT 96
[2021-11-09] MEDS: sodium chloride 0.9% 500 ML IV (22:51)
[2021-11-09] MEDS: ondansetron 2 mg/ML SDV 2 mL 4 MG IVP (22:51)
[2021-11-09] MEDS: HYDROmorphone 1 mg/mL INJ 1 mL 0.5 MG IVP (22:51)
[2021-11-09 23:01] LABS: Basophils # 0.1 10^3/uL (0.0-0.1); Basophils % 0.8 %; Eosinophils # 0.3 10^3/uL (0.0-0.8); Eosinophils % 3.1 %; Hematocrit 47.2 % (37.0-47.0); Lymphocytes # 1.6 10^3/uL (0.8-4.8); Lymphocytes % 17.6 %; Mean Corpuscular HGB Conc 33.9 g/dL (30.0-36.0); Mean Corpuscular Hemoglobin 30.3 pg (28.0-34.0); Mean Corpuscular Volume 89.4 fl (81-99); Mean Platelet Volume 11.3 fL (7.4-10.4); Monocytes # 0.8 10^3/uL (0.2-0.9); Monocytes % 8.8 %; Neutrophils # 6.31 10^3/uL (1.8-7.7); Neutrophils % 69.3 %; Nucleated Red Blood Cells % 0 %; Platelet Count 198 10^3/cmm (130-400); Red Blood Count 5.28 10^6/uL (4.1-5.3); Red Cell Distribution Width 12.5 % (12.1-15.1); White Blood Count 9.1 10^3/uL (4.0-10.0)
[2021-11-09 23:07] LABS: Lactate (Lactic Acid level) 1.7 mmol/L (0.5-2.2)
[2021-11-09 23:12] LABS: Alanine Aminotransferase 11 U/L (0-33); Albumin Level 3.9 g/dL (3.5-5.2); Alkaline Phosphatase 80 U/L (35-105); Anion Gap 16.8 (5-19); Aspartate Amino Transferase 16 U/L (0-32); Blood Urea Nitrogen 8 mg/dL (8-23); Calcium 9.1 mg/dL (8.5-10.5); Carbon Dioxide 23 mmol/L (22-29); Chloride 103 mmol/L (98-107); Globulin 2.4 g/dL (1.3-4.6); Glucose 180 mg/dL (65-115); Lipase 26 U/L (13-60); Osmolality Calculated 291 mOsm/kg (285-295); Potassium 3.8 mmol/L (3.5-5.1); Sodium 139 mmol/L (136-145); Total Bilirubin 0.8 mg/dL (0.15-1.2); Total Protein 6.3 g/dL (6.6-8.7)
[2021-11-09 23:14] LABS: Add Urine Microscopic? YES; Bilirubin Urine Neg (Negative); Blood Urine 2+ (Negative); Glucose Urine UA Norm (Normal); Ketones Urine Negative (Negative); Leukocyte Esterase Urine Negative (Negative); Nitrate Urine Negative (Negative); Protein Urine Neg (Negative); RBC Urine 15-25 /hpf (0-2); Sulfosalicylic Acid Urine Negative (Negative); Urine Appearance Clear (CLEAR); Urine Color Colorless (Yellow); Urobilinogen Urine Norm (Negative); pH Urine 8 (5-7)
[2021-11-09 23:15] LABS: Add Urine Culture? No; Amorphous Sediment Urine 1+ /hpf; Renal Epithelial Cells Urine 0 /hpf; Squamous Epithelial Cell Urine 0-4 /hpf (0-5)
[2021-11-09 23:32] VITALS: BP 147/106; PULSE 79; RESP 16; O2SAT 96
== END 2021-11-09 23:48 | disposition home or self-care (01) ==
PROVIDERS: Emergency Provider Emergency Medicine; PCP Family Medicine
DX: R10.9 Unspecified abdominal pain (principal); Z79.01 Long term (current) use of anticoagulants; Z87.891 Personal history of nicotine dependence; I11.0 Hypertensive heart disease with heart failure; I50.9 Heart failure, unspecified; I25.10 Atherosclerotic heart disease of native coronary artery without angina pectoris; E11.9 Type 2 diabetes mellitus without complications; I25.2 Old myocardial infarction
CPT/HCPCS: 74176; 74177; 80053; 81001; 83605; 83690; 85025; 96374; 96375; 99285; J1170; J2405; J7040; Q9967

== ENCOUNTER 2021-11-10 11:43 | Emergency (ER) | payer MEDICARE, OTHER, SELFPAY ==
[2021-11-10 11:53] VITALS: BP 138/80; PULSE 93; RESP 16; TEMP 37.1; O2SAT 96
--- NOTE | 2021-11-10 12:17 | XR_ITS ---
WS: [id number] Exam: XR acute abdomen series [id number] Date/Time of Exam: 11/10/2021 12:31 PM Reason For Exam: abd pain AP portable chest. The lungs are clear and fully expanded. Normal cardiomediastinal silhouette. No pl eural effusions. Bony structures are intact. Flat and erect abdomen. No bowel obstruction or free air. Moderate amount retained stool in the right colon. Postoperative changes of the abdomen. Radiographic contrast in the urinary bladder from recen t abdominal pelvic CT scan. Degenerative changes of the lumbar spine. XR/XR acute abdomen series [id number] IMPRESSION: 1. No acute cardiopulmonary process. 2. No acute abdominal finding.
--- NOTE | 2021-11-10 12:20 | ECG_ITS ---
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 Measurements Intervals [place] Rate: 96 P: 51 [place]: 195 QRS: 40 QRSD: 121 T: 91 QT: 389 QTc: 492 Interpretive Statements SINUS RHYTHM POSSIBLE LEFT VENTRICULAR HYPERTROPHY [VOLTAGE CRITERIA PLUS LAE OR QRS WIDENING] POSSIBLE ANTEROSEPTAL MYOCARDIAL INFARCTION , OF INDETERMINATE AGE [30 ms Q WAVE IN V1-V4] Compared to ECG 06/07/2021 14:22:12 Myocardial infarct finding now present Electronically Signed On 11-10-2021 15:40:42 CDT by Gerri Sal M.D. [id number]
[2021-11-10] MEDS: sodium chloride 0.9% 1,000 ML 999 ML IV (12:36)
[2021-11-10] MEDS: ondansetron 2 mg/ML SDV 2 mL 4 MG IVP ×2 (12:36→13:12)
[2021-11-10 12:37] VITALS: BP 146/82; PULSE 83; RESP 18; O2SAT 97
--- NOTE | 2021-11-10 12:43 | ED_ITS ---
HPI - Nausea/Vomiting/Diarrhea General: Chief complaint: Nausea/Vomiting/Diarrhea Stated complaint: Abd pains, N/V Time Seen by Provider: 11/10/21 12:02 Source: patient Mode of arrival: ambulatory History of Present Illness: 76-year-old female with chronic abdominal problems presents emergency room planing abdominal pain. She was seen yesterday at CT with and without none both and they were unremarkable her labs were unremarkable as well she has morphine at home she is chronic abdominal pain she has had several bowel obstructions that were precipitated evidently by previous episode of diverticulitis with perforation sounds like she had some abscess formation and required some drains she subsequently had other abdominal procedures including append ectomy cholecystectomy and hysterectomy. She has been having regular bowel movements denies any hematochezia melena hematemesis cough cramps no dysuria urgency or frequency. MD elicited complaint: nausea and abdominal pain Onset (ago): day(s) Associated nausea: Yes Associated abdominal pain: Yes Radiation: diffuse Severity: moderate Quality: cramping Exacerbating factors: none Relieving factors: none Associated symtoms: Reports bloating, anorexia and nausea; Denies altered mental status, anxiety, change in vision, chest pain, cough, diaphoresis, decreased urine output, dizziness, dysuria, epistaxis, fatigue, fecal incontinence, fevers/chills, headache(s), malaise, myalgias, numbness, palpitations, rash, short of breath, syncope, tenesmus, tinnitus or weakness Review of Systems Const: Denies: fever(s), chills, fatigue, malaise or diaphoresis Eyes: Denies: change in vision ENMT: Denies: tinnitus or epistaxis Card: Denies: chest pain, palpitations or syncope Resp: Denies: dyspnea, productive cough or non-productive cough GI: Reports: abdominal pain, nausea and bloating; Denies: vomiting, diarrhea or fecal incontinence : Denies: flank pain, difficulty voiding, dysuria, urinary frequency or urinary urgency Musc: Denies: neck pain or back pain Skin/Breast: Denies: rash or pruritus Neuro: Denies: headache(s) or dizziness Psych: Denies: anxiety PFSH ED PFSH: Medical History Atrial fibrillation Chronic nausea Colonic diverticular abscess Congestive heart failure Coronary disease Discitis, unspecified, lumbar region DM II (diabetes mellitus, type II), controlled GUILLAUME (generalized anxiety disorder) GERD (gastroesophageal reflux disease) Gout Hypertension Lumbar stenosis with neurogenic claudication Migraine MRSA bacteremia Myopericarditis Necrotizing fasciitis Non-ST elevation PR (NSTEMI) Osteoarthritis Pain of both breasts Pericarditis Scleroderma Small bowel obstruction Surgical History H/O colectomy H/O hernia repair History of cholecystectomy S/P dilatation of esophageal stricture S/P ANH-BSO Family History Mother Congestive heart failure Social History Smoking and tobacco status: former smoker Alcohol intake: never Female Reproductive History: Date of last menstrual period: 06/02/20 Physical Exam Const: COMMON NORMALS: no acute distress EXAM LIMITATIONS: no altered mental status GENERAL APPEARANCE: cooperative and comfortable ORIENTATION/CONSCIOUSNESS: Yes awake, Yes oriented to person, Yes oriented to p lace and Yes oriented to time HENMT: COMMON NORMALS: normocephalic, atraumatic, hearing grossly normal bilaterally, external ears normal, EAC's normal, TM's normal bilaterally, Normal nasal mucous membranes and turbinates present, moist oral mucous membranes and oropharynx normal HEAD & SCALP: normocephalic and atraumatic NOSE: Normal nasal mucous membranes and turbinates present EXTERNAL EAR: Yes external ears normal EXTERNAL AUDITORY CANAL: EAC's normal TYMPANIC MEMBRANE: TM's normal bilaterally Eye: COMMON NORMALS: Equal, round and reactive pupils present, EOMs intact bilaterally, conjunctivae normal and no scleral icterus CONJUNCTIVA: Yes conjunctivae normal PUPIL: Yes Equal, round and reactive pupils present Neck/C-Spine: COMMON NORMALS: full ROM, no lymphadenopathy, supple and no JVD Lymph: LYMPHATIC: no lymphadenopathy noted and no lymphedema noted Resp: COMMON NORMALS: normal respiratory effort, No retractions, No use of accessory muscles and clear to auscultation bilaterally AUSCULTATION: clear to auscultation bilaterally Cardio: COMMON NORMALS: no JVD, regular rate, regular rhythm and No murmurs present (Cardio) RATE: regular rate RHYTHM: regular rhythm GI: COMMON NORMALS: No hepatosplenomegaly present AUSCULTATION: Yes normoactive bowel sounds PALPATION: Yes Tenderness to palpation present (GI) (Diffuse), No Guarding due to palpation present (GI) and Yes No hepatos plenomegaly present Extremity: COMMON NORMALS: normal to inspection, capillary refill normal, no clubbing, cyanosis or edema, no calf tenderness and no pedal edema Neuro: SENSORIUM/ORIENTATION: Yes oriented to person, Yes oriented to place and Yes oriented to time Skin: COMMON NORMALS: no rashes or lesions noted GENERAL SKIN EXAM: no rashes or lesions noted Course 2 Vital Signs: Vital signs: Vital Signs Temperature 98.8 F 11/10/21 11:53 Pulse Rate 68 11/10/21 14:16 Respiratory Rate 16 11/10/21 14:16 Blood Pressure 127/70 11/10/21 14:16 Pulse Oximetry 95 11/10/21 14:16 Oxygen Delivery Me thod 11/10/21 13:00 MDM - Nausea/Vomiting/Diarrhea Medical Decision Making Symptoms much improved. She is resting comfortably after pain medications. Reviewed CT scan yesterday as well as abdominal films done today. Discussed the CTs done yesterday with Dr. Arndt. She has had pneumobilia in the past this been a somewhat chronic condition there is no evidence is anything acute going on in that regard. I think it is mostly constipation we will have her increase her MiraLAX to twice daily follow-up with primary care doctor. Incidental finding of hematuria cover the antibiotics till cultures resulted. Medical Records I reviewed the patient's medical records. Lab Data I reviewed the patient's lab results. : 11/10/21 12:39 11/10/21 12:39 Radiology Impressions Chest/Abdomen X-ray 11/10/21 12:17 IMPRESSION: 1. No acute cardiopulmonary process. 2. No acute abdominal finding. Laboratory Results WBC 10.3 10^3/uL (4.0-10.0) H 11/10/21 12:39 RBC 5.70 10^6/uL (4.1-5.3) H 11/10/21 12:39 Hgb 17.1 g/dL (11.5-15.3) H 11/10/21 12:39 Hct 51.4 % (37.0-47.0) H 11/10/21 12:39 MCV 90.2 fl (81-99) 11/10/21 12:39 MCH 30.0 pg (28.0-34.0) 11/10/21 12:39 MCHC 33.3 g/dL (30.0-36.0) 11/10/21 12:39 RDW 12.8 % (12.1-15.1) 11/10/21 12:39 Plt Count 222 10^3/cmm (130-400) 11/10/21 12:39 MPV 10.5 fL (7.4-10.4) H 11/10/21 12:39 Neut % (Auto) 75.5 % 11/10/21 12:39 Lymph % (Auto) 13.8 % 11/10/21 12:39 [place] % (Auto) 9.3 % 11/10/21 12:39 Eos % (Auto) 0.8 % 11/10/21 12:39 Baso % (Auto) 0.3 % 11/10/21 12:39 Neut # (Auto) 7.75 10^3/uL (1.8-7.7) H 11/10/21 12:39 Lymph # (Auto) 1.4 10^3/uL (0.8-4.8) 11/10/21 12:39 [place] # (Auto) 1.0 10^3/uL (0.2-0.9) H 11/10/21 12:39 Eos # (Auto) 0.1 10^3/uL (0.0-0.8) 11/10/21 12:39 Baso # (Auto) 0.0 10^3/uL (0.0-0.1) 11/10/21 12:39 Nucleated RBC % (auto) 0 % 11/10/21 12:39 Nucleated RBCs # 0.0 /100WBC 11/10/21 12:39 Sodium 143 mmol/L (136-145) 11/10/21 12:39 Potassium 4.9 mmol/L (3.5-5.1) 11/10/21 12:39 Chloride 106 mmol/L (98-107) 11/10/21 12:39 Carbon Dioxide 24 mmol/L (22-29) 11/10/21 12:39 Anion Gap 17.9 (5-19) 11/10/21 12:39 BUN 10 mg/dL (8-23) 11/10/21 12:39 Creatinine 0.6 mg/dL (0.5-0.9) 11/10/21 12:39 GFR Calculation Not Reportable 11/10/21 12:39 Glucose 147 mg/dL (65-115) H 11/10/21 12:39 Calculated Osmolality 298 mOsm/kg (285-295) H 11/10/21 12:39 Calcium 9.2 mg/dL (8.5-10.5) 11/10/21 12:39 Total Bilirubin 1.4 mg/dL (0.15-1.2) H 11/10/21 12:39 AST 29 U/L (0-32) 11/10/21 12:39 ALT 23 U/L (0-33) 11/10/21 12:39 Alkaline Phosphatase 95 U/L (35-105) 11/10/21 12:39 Total Protein 6.6 g/dL (6.6-8.7) 11/10/21 12:39 Albumin 4.3 g/dL (3.5-5.2) 11/10/21 12:39 Globulin 2.3 g/dL (1.3-4.6) 11/10/21 12:39 Lipase 18 U/L (13-60) 11/10/21 12:39 Urine Color Yellow (Yellow) 11/10/21 13:50 Urine Appearance Clear (CLEAR) 11/10/21 13:50 Urine pH 6 (5-7) 11/10/21 13:50 Ur Specific [place] 1.015 (1.005-1.030) 11/10/21 13:50 Urine Protein 1+ (Negative) H 11/10/21 13:50 Urine Glucose (UA) Norm (Normal) 11/10/21 13:50 Urine Ketones 1+ (Negative) H 11/10/21 13:50 Urine Blood 3+ (Negative) H 11/10/21 13:50 Urine Nitrate Negative (Negative) 11/10/21 13:50 Urine Bilirubin Neg (Negative) 11/10/21 13:50 Urine Urobilinogen Norm mg/dL (Negative) 11/10/21 13:50 Ur Leukocyte Esterase Negative (Negative) 11/10/21 13:50 Urine RBC 25-40 /hpf (0-2) H 11/10/21 13:50 Urine WBC 0-4 /hpf (0-5) H 11/10/21 13:50 Ur Squamous Epith Cells 0-4 /hpf (0-5) H 11/10/21 13:50 Amorphous Sediment Not Reportable 11/10/21 13:50 Urine Bacteria None /hpf (NONE) 11/10/21 13:50 Discharge Plan Discharge Patient Disposition: Home Clinical Impression: Constipated, Cystitis Condition: Stable Prescriptions: New Macrobid 100 mg capsule 100 mg PO BID 7 Days Qty: 14 0RF Rx Instructions: must administer with a meal/food No Action Eliquis 5 mg tablet 5 mg PO BID 90 Days Qty: 180 2RF Rx Instructions: 340 B carvedilol 12.5 mg tablet See Rx Instructions .ROUTE .COMPLEX Rx Instructions: take 12.5mg qam and 6.25mg qpm amlodipine 2.5 mg tablet 2.5 mg PO QAM Qty: 90 1RF ondansetron HCl 8 mg tablet 8 mg PO TID PRN (Reason: Nausea And Vomiting) Prevagen 1 cap PO DAILY polyethylene glycol 3350 [Miralax] 17 gram/dose powder 17 g PO DAILY PRN (Reason: constipation) Qty: 119 0RF pantoprazole [Protonix] 40 mg tablet,delayed release (DR/EC) 40 mg PO DAILY Qty: 60 0RF buspirone 5 mg tablet 5 mg PO TID Discharge Orders: Discharge ED (Routine); Ordered 11/10/21 Ordered By: Bhargav Mendoza Referrals: Baldomero Britt MD [Primary Care Provider] - Discharge Diet: Usual diet Discharge Activity: Increase activity as tolerated Coding Level of Care Code ED Primary Care Nurse Practitioner for Chg Fwd Exam Comprehensive
[2021-11-10 12:46] LABS: Basophils % 0.3 %; Eosinophils # 0.1 10^3/uL (0.0-0.8); Eosinophils % 0.8 %; Hematocrit 51.4 % (37.0-47.0); Hemoglobin 17.1 g/dL (11.5-15.3); Lymphocytes # 1.4 10^3/uL (0.8-4.8); Lymphocytes % 13.8 %; Mean Corpuscular HGB Conc 33.3 g/dL (30.0-36.0); Mean Corpuscular Volume 90.2 fl (81-99); Mean Platelet Volume 10.5 fL (7.4-10.4); Monocytes % 9.3 %; Neutrophils # 7.75 10^3/uL (1.8-7.7); Neutrophils % 75.5 %; Nucleated Red Blood Cells % 0 %; Platelet Count 222 10^3/cmm (130-400); Red Cell Distribution Width 12.8 % (12.1-15.1); White Blood Count 10.3 10^3/uL (4.0-10.0)
[2021-11-10 13:00] VITALS: BP 153/90; PULSE 80; RESP 18; O2SAT 99
[2021-11-10 13:08] LABS: Alanine Aminotransferase 23 U/L (0-33); Albumin Level 4.3 g/dL (3.5-5.2); Alkaline Phosphatase 95 U/L (35-105); Anion Gap 17.9 (5-19); Aspartate Amino Transferase 29 U/L (0-32); Blood Urea Nitrogen 10 mg/dL (8-23); Calcium 9.2 mg/dL (8.5-10.5); Carbon Dioxide 24 mmol/L (22-29); Chloride 106 mmol/L (98-107); Globulin 2.3 g/dL (1.3-4.6); Glucose 147 mg/dL (65-115); Osmolality Calculated 298 mOsm/kg (285-295); Potassium 4.9 mmol/L (3.5-5.1); Sodium 143 mmol/L (136-145); Total Bilirubin 1.4 mg/dL (0.15-1.2); Total Protein 6.6 g/dL (6.6-8.7)
[2021-11-10 13:13] VITALS: RESP 18
[2021-11-10] MEDS: morphine 4 mg/mL SDV 1 mL IVP (13:13)
[2021-11-10 13:45] LABS: Lipase 18 U/L (13-60)
[2021-11-10 14:03] LABS: Add Urine Microscopic? YES; Bilirubin Urine Neg (Negative); Blood Urine 3+ (Negative); Glucose Urine UA Norm (Normal); Ketones Urine 1+ (Negative); Leukocyte Esterase Urine Negative (Negative); Nitrate Urine Negative (Negative); Protein Urine 1+ (Negative); Specific Gravity, Urine 1.015 (1.005-1.030); Urine Appearance Clear (CLEAR); Urine Color Yellow (Yellow); Urobilinogen Urine Norm (Negative); pH Urine 6 (5-7)
[2021-11-10 14:04] LABS: Add Urine Culture? Yes; RBC Urine 25-40 /hpf (0-2); Squamous Epithelial Cell Urine 0-4 /hpf (0-5); WBC Urine 0-4 /hpf (0-5)
[2021-11-10 14:16] VITALS: BP 127/70; PULSE 68; RESP 16; O2SAT 95
== END 2021-11-10 14:37 | disposition home or self-care (01) ==
PROVIDERS: Emergency Provider Family Medicine; PCP Family Medicine
DX: K59.00 Constipation, unspecified (principal); N30.90 Cystitis, unspecified without hematuria; Z79.01 Long term (current) use of anticoagulants; I11.0 Hypertensive heart disease with heart failure; I50.9 Heart failure, unspecified; I25.10 Atherosclerotic heart disease of native coronary artery without angina pectoris; E11.9 Type 2 diabetes mellitus without complications; I10 Essential (primary) hypertension; I25.2 Old myocardial infarction; Z87.891 Personal history of nicotine dependence
CPT/HCPCS: 74022; 80053; 81001; 83690; 85025; 87086; 93005; 96361; 96374; 96375; 96376; 99285; J2270; J2405; J7030

== ENCOUNTER 2021-11-11 11:26 | Emergency (ER) | payer MEDICARE, SELFPAY ==
[2021-11-11 11:29] VITALS: BP 141/88; PULSE 98; RESP 16; TEMP 36.4; O2SAT 94
--- NOTE | 2021-11-11 11:57 | XRR_ITS ---
PROCEDURE INFORMATION: Exam: XR Abdomen Exam date and time: 11/11/2021 12:12 PM Age: 76 years old Clinical indication: Abdominal pain; Prior surgery; Surgery date: 6+ months; Surgery type: Scar tissue removal, bowel reconstruction, hyst, gb, appy TECHNIQUE: Imaging protocol: Radiologic exam of the abdomen. Views: 2 Views. Upright and supine views. COMPARISON: CR XR acute abdomen series [id number] 11/10/2021 12:43 PM FINDINGS: Heart/Mediastinum: Chest: The heart great vessels appear normal. The lungs are expanded and clear. No additional findings seen Gastrointestinal tract: Normal. No bowel dilation. There are multiple scattered metallic ring densities in the GI tract. Evidence of cholecystectomy is seen. Intraperitoneal space: Normal. No free air. Bones/joints: Unremarkable for age. XR/XR acute abdomen series [id number] IMPRESSION: 1. No acute GI abnormality 2. Negative chest examination 3. Scattered small metallic densities seen in the GI tract
[2021-11-11 12:35] VITALS: BP 141/92; PULSE 90; RESP 12; O2SAT 92
[2021-11-11 12:36] LABS: Basophils % 0.3 %; Eosinophils # 0.1 10^3/uL (0.0-0.8); Hematocrit 52.2 % (37.0-47.0); Hemoglobin 17.3 g/dL (11.5-15.3); Lymphocytes # 1.4 10^3/uL (0.8-4.8); Lymphocytes % 18.3 %; Mean Corpuscular HGB Conc 33.1 g/dL (30.0-36.0); Mean Corpuscular Hemoglobin 29.9 pg (28.0-34.0); Mean Corpuscular Volume 90.2 fl (81-99); Mean Platelet Volume 10.6 fL (7.4-10.4); Monocytes # 1.2 10^3/uL (0.2-0.9); Monocytes % 16.7 %; Neutrophils # 4.67 10^3/uL (1.8-7.7); Neutrophils % 63.4 %; Nucleated Red Blood Cells % 0 %; Platelet Count 222 10^3/cmm (130-400); Red Blood Count 5.79 10^6/uL (4.1-5.3); Red Cell Distribution Width 12.9 % (12.1-15.1); White Blood Count 7.4 10^3/uL (4.0-10.0)
[2021-11-11 12:51] LABS: Alanine Aminotransferase 35 U/L (0-33); Albumin Level 3.9 g/dL (3.5-5.2); Alkaline Phosphatase 96 U/L (35-105); Blood Urea Nitrogen 13 mg/dL (8-23); Calcium 9.4 mg/dL (8.5-10.5); Carbon Dioxide 24 mmol/L (22-29); Chloride 100 mmol/L (98-107); Globulin 2.7 g/dL (1.3-4.6); Glucose 160 mg/dL (65-115); Lipase 14 U/L (13-60); Osmolality Calculated 284 mOsm/kg (285-295); Sodium 135 mmol/L (136-145); Total Bilirubin 1.9 mg/dL (0.15-1.2); Total Protein 6.6 g/dL (6.6-8.7)
[2021-11-11 12:53] LABS: Anion Gap 15.6 (5-19); Aspartate Amino Transferase 39 U/L (0-32); Potassium 4.6 mmol/L (3.5-5.1)
--- NOTE | 2021-11-11 12:57 | W.ED.ABDPA2 ---
HPI - Abdominal Pain General: Chief Complaint: Abdominal Pain Stated Complaint: Abd pain Time Seen by Provider: 11/11/21 11:51 Source: patient Mode of arrival: ambulatory Limitations: no limitations History of Present Illness: 76 female presents emergency room complaining of abdominal pain with nausea and vomiting. Symptoms progressively worsened. Patient has had repeated bowel obstructions in the past she is concerned she may have another. She is on Eliquis she denies any recent hematochezia melena hematemesis or coffee-ground emesis. MD elicited complaint: abdominal pain Associated Symptoms: Denies bloating, chills, coffee ground emesis, constipation, diarrhea, dysuria, fever(s), hematochezia, hematuria, hematemesis, melena, nausea and vomiting Related Data: Date of Last Menstrual Period: 06/02/20 Review of Systems Const: Denies: fever(s), chills, body aches, change in appetite, fatigue or malaise ENMT: Denies: throat pain, ear or mastoid pain, nasal discharge or nasal congestion Card: Denies: chest pain, edema, dyspnea on exertion or orthopnea Resp: Denies: dyspnea, productive cough or non-productive cough GI: Denies: abdominal pain, nausea, vomiting, hematemesis, coffee ground emesis, diarrhea, constipation, bloating, hematochezia or melena : Denies: flank pain, difficulty voiding, dysuria, urinary frequency, urinary urgency or hematuria Skin/Breast: Denies: rash or pruritus PFSH ED PFSH: Medical History Atrial fibrillation Chronic nausea Colonic diverticular abscess Congestive heart failure Coronary disease Discitis, unspecified, lumbar region DM II (diabetes mellitus, type II), controlled GUILLAUME (generalized anxiety disorder) GERD (gastroesophageal reflux disease) Gout Hypertension Lumbar stenosis with neurogenic claudication Migraine MRSA bacteremia Myopericarditis Necrotizing fasciitis Non-ST elevation [place] (NSTEMI) Osteoarthritis Pain of both breasts Pericarditis Scleroderma Small bowel obstruction Surgical History H/O colectomy H/O hernia repair History of delivery History of cholecystectomy History of neck surgery S/P dilatation of esophageal stricture S/P ANH-BSO Family History Mother Congestive heart failure Social History Smoking and tobacco status: former smoker Alcohol intake: never Lives independently: No Household members: spouse Marital status: Female Reproductive History: Date of last menstrual period: 06/02/20 Physical Exam Const: COMMON NORMALS: no acute distress GENERAL APPEARANCE: cooperative and comfortable ORIENTATION/CONSCIOUSNESS: Yes awake, Yes oriented to person, Yes oriented to place and Yes oriented to time HENMT: COMMON NORMALS: normocephalic, atraumatic and hearing grossly normal bilaterally HEAD & SCALP: normocephalic and atraumatic Resp: COMMON NORMALS: normal respiratory effort, No retractions, No use of accessory muscles and clear to auscultation bilaterally AUSCULTATION: clear to auscultation bilaterally Cardio: COMMON NORMALS: regular rate, regular rhythm and No murmurs present (Cardio) RATE: regular rate RHYTHM: regular rhythm GI: COMMON NORMALS: Normal to inspection, nondistended, normoactive bowel sounds present and No hepatosplenomegaly present AUSCULTATION: Yes normoactive bowel sounds PALPATION: Yes Tenderness to palpation present (GI), No Guarding due to palpation present (GI) and Yes No hepatosplenomegaly present Extremity: COMMON NORMALS: normal to inspection, capillary refill normal, no clubbing, cyanosis or edema, no calf tenderness and no pedal edema Neuro: SENSORIUM/ORIENTATION: Yes oriented to person, Yes oriented to place and Yes oriented to time Skin: COMMON NORMALS: no rashes or lesions noted GENERAL SKIN EXAM: no rashes or lesions noted Course Vital Signs: Vital signs: Vital Signs Temperature 97.5 F L 11/11/21 11:29 Pulse Rate 66 11/11/21 15:44 Respiratory Rate 21 H 11/11/21 15:44 Blood Pressure 148/78 11/11/21 15:44 Pulse Oximetry 95 11/11/21 15:44 Oxygen Delivery Me thod 11/11/21 12:35 MDM - Abdominal Pain Medical Decision Making Flat and upright of the abdomen no sign of bowel obstruction. He was seen yesterday chest some mild hematuria but she has no symptoms at all. She does have slight elevation in her T bili. Which she has had in the past I suspect it is from volume contraction. She has previously had a cholecystectomy. Discharge patient home follow-up with her primary care. Return to the ER if she has further problems no sign of bowel obstruction at this time. Medical Records I reviewed the patient's medical records. Lab Data I reviewed the patient's lab results. : 11/11/21 12:29 11/11/21 12:29 Labs/Radiology: Radiology Impressions Chest/Abdomen X-ray 11/11/21 11:57 IMPRESSION: 1. No acute GI abnormality 2. Negative chest examination 3. Scattered small metallic densities seen in the GI tract Laboratory Results WBC 7.4 10^3/uL (4.0-10.0) 11/11/21 12:29 RBC 5.79 10^6/uL (4.1-5.3) H 11/11/21 12:29 Hgb 17.3 g/dL (11.5-15.3) H 11/11/21 12:29 Hct 52.2 % (37.0-47.0) H 11/11/21 12:29 MCV 90.2 fl (81-99) 11/11/21 12:29 MCH 29.9 pg (28.0-34.0) 11/11/21 12:29 MCHC 33.1 g/dL (30.0-36.0) 11/11/21 12:29 RDW 12.9 % (12.1-15.1) 11/11/21 12:29 Plt Count 222 10^3/cmm (130-400) 11/11/21 12:29 MPV 10.6 fL (7.4-10.4) H 11/11/21 12:29 Neut % (Auto) 63.4 % 11/11/21 12:29 Lymph % (Auto) 18.3 % 11/11/21 12:29 [place] % (Auto) 16.7 % 11/11/21 12:29 Eos % (Auto) 1.0 % 11/11/21 12:29 Baso % (Auto) 0.3 % 11/11/21 12:29 Neut # (Auto) 4.67 10^3/uL (1.8-7.7) 11/11/21 12:29 Lymph # (Auto) 1.4 10^3/uL (0.8-4.8) 11/11/21 12:29 [place] # (Auto) 1.2 10^3/uL (0.2-0.9) H 11/11/21 12:29 Eos # (Auto) 0.1 10^3/uL (0.0-0.8) 11/11/21 12:29 Baso # (Auto) 0.0 10^3/uL (0.0-0.1) 11/11/21 12:29 Nucleated RBC % (auto) 0 % 11/11/21 12: Nucleated RBCs # 0.0 /100WBC 11/11/21 12:29 Sodium 135 mmol/L (136-145) L 11/11/21 12:29 Potassium 4.6 mmol/L (3.5-5.1) 11/11/21 12: Chloride 100 mmol/L (98-107) 11/11/21 12: Carbon Dioxide 24 mmol/L (22-29) 11/11/21 12:29 Anion Gap 15.6 (5-19) 11/11/21 12:29 BUN 13 mg/dL (8-23) 11/11/21 12:29 Creatinine 0.6 mg/dL (0.5-0.9) 11/11/21 12:29 GFR Calculation Not Reportable 11/11/21 12: Glucose 160 mg/dL (65-115) H 11/11/21 12:29 Calculated Osmolality 284 mOsm/kg (285-295) L 11/11/21 12: Calcium 9.4 mg/dL (8.5-10.5) 11/11/21 12:29 Total Bilirubin 1.9 mg/dL (0.15-1.2) H 11/11/21 12:29 AST 39 U/L (0-32) H 11/11/21 12:29 ALT 35 U/L (0-33) H 11/11/21 12:29 Alkaline Phosphatase 96 U/L (35-105) 11/11/21 12:29 Total Protein 6.6 g/dL (6.6-8.7) 11/11/21 12:29 Albumin 3.9 g/dL (3.5-5.2) 11/11/21 12: Globulin 2.7 g/dL (1.3-4.6) 11/11/21 12:29 Lipase 14 U/L (13-60) 11/11/21 12:29 Discharge Plan Discharge Patient Disposition: Home Clinical Impression: Constipated, Abdominal pain Condition: Stable Prescriptions: New magnesium hydroxide [Milk of Magnesia] 400 mg/5 mL suspension 1,200 mg PO QID PRN (Reason: constipation) Qty: 355 0RF Changed polyethylene glycol 3350 [Miralax] 17 gram/dose powder 17 g PO BID Qty: 119 0RF No Action Eliquis 5 mg tablet 5 mg PO BID 90 Days Qty: 180 2RF Rx Instructions: 340 B carvedilol 12.5 mg tablet See Rx Instructions .ROUTE .COMPLEX Rx Instructions: take 12.5mg qam and 6.25mg qpm amlodipine 2.5 mg tablet 2.5 mg PO QAM Qty: 90 1RF Hold Instructions: Resume on 11/20/21. ondansetron HCl 8 mg tablet 8 mg PO TID PRN (Reason: Nausea And Vomiting) Prevagen 1 cap PO DAILY pantoprazole [Protonix] 40 mg tablet,delayed release (DR/EC) 40 mg PO DAILY Qty: 60 0RF buspirone 5 mg tablet 5 mg PO TID PRN (Reason: Anxiety) Discharge Orders: Discharge ED (Routine); Ordered 11/11/21 Ordered By: Bhargav Mendoza Referrals: Baldomero Britt MD [Primary Care Provider] - Discharge Diet: Usual diet Discharge Activity: Increase activity as tolerated Patient Instructions: Abdominal Pain (ED), Opioid Safety Activity Restrictions/Additional Instructions: Increase MiraLAX to twice daily. Use milk of magnesia every 4-6 hours as needed until desired results achieved at home. Follow-up with your primary care doctor. Coding Level of Care Code ED [employer] Counter Person for Tad Sanderson
[2021-11-11 15:44] VITALS: BP 148/78; PULSE 66; RESP 21; O2SAT 95
== END 2021-11-11 15:46 | disposition home or self-care (01) ==
PROVIDERS: Emergency Provider Family Medicine; PCP Family Medicine
DX: K59.00 Constipation, unspecified (principal); Z79.01 Long term (current) use of anticoagulants; I11.0 Hypertensive heart disease with heart failure; I50.9 Heart failure, unspecified; I25.10 Atherosclerotic heart disease of native coronary artery without angina pectoris; E11.9 Type 2 diabetes mellitus without complications; I25.2 Old myocardial infarction
CPT/HCPCS: 74022; 80053; 83690; 85025; 99284

== ENCOUNTER 2021-11-12 10:04 | Inpatient (IN) | payer MEDICARE, OTHER, SELFPAY ==
[2021-11-12] VITALS (7 sets, daily range): BP systolic 108–188; BP diastolic 41–96; PULSE 83–92; RESP 12–18; TEMP 36.1–36.4; O2SAT 92–96; BMI 25.2
[2021-11-12 12:43] LABS: Basophils % 0.3 %; Hematocrit 52.4 % (37.0-47.0); Hemoglobin 17.5 g/dL (11.5-15.3); Lymphocytes # 1.1 10^3/uL (0.8-4.8); Lymphocytes % 17.1 %; Mean Corpuscular HGB Conc 33.4 g/dL (30.0-36.0); Mean Corpuscular Hemoglobin 29.8 pg (28.0-34.0); Mean Corpuscular Volume 89.3 fl (81-99); Mean Platelet Volume 11.1 fL (7.4-10.4); Monocytes # 0.9 10^3/uL (0.2-0.9); Monocytes % 13.1 %; Neutrophils # 4.54 10^3/uL (1.8-7.7); Neutrophils % 69.2 %; Nucleated Red Blood Cells % 0 %; Platelet Count 231 10^3/cmm (130-400); Red Blood Count 5.87 10^6/uL (4.1-5.3); Red Cell Distribution Width 12.7 % (12.1-15.1); White Blood Count 6.6 10^3/uL (4.0-10.0)
[2021-11-12 13:00] LABS: Alanine Aminotransferase 35 U/L (0-33); Albumin Level 4.4 g/dL (3.5-5.2); Alkaline Phosphatase 111 U/L (35-105); Aspartate Amino Transferase 29 U/L (0-32); Blood Urea Nitrogen 25 mg/dL (8-23); Calcium 9.8 mg/dL (8.5-10.5); Carbon Dioxide 35 mmol/L (22-29); Chloride 88 mmol/L (98-107); Globulin 2.9 g/dL (1.3-4.6); Glucose 186 mg/dL (65-115); Lipase 53 U/L (13-60); Osmolality Calculated 297 mOsm/kg (285-295); Sodium 139 mmol/L (136-145); Total Bilirubin 1.9 mg/dL (0.15-1.2); Total Protein 7.3 g/dL (6.6-8.7)
--- NOTE | 2021-11-12 14:08 | ED_ITS ---
HPI - Abdominal Pain General: Chief Complaint: ER Hold Stated Complaint: Abd pain Time Seen by Provider: 11/12/21 14:08 History of Present Illness: Ms. Duffy is a 76-year-old lady with history of multiple abdominal surgeries who presents to the emergency department due to continued abdominal pain and constipation with worsening symptoms including recurrent nausea and vomiting. She has been seen in the emergency department the past few days for similar however reports worsening symptoms despite treatment. She describes inability to tolerate milk of magnesia without vomiting. Additionally she has vomited up her other medication including chronic pain medication. Density symptoms is moderate to severe. Course has worsened. No other specific changes in health, exacerbating, or alleviating factors identified. Onset (ago): day(s) Location: Diffuse Severity: severe Exacerbating factors: eating and vomiting Associated Symptoms: Reports constipation, GI cramping, nausea and vomiting Related Data: Date of Last Menstrual Period: 06/02/20 Review of Systems General: Reports: 10 or more systems reviewed and unremarkable except in HPI and below GI: Reports: nausea, vomiting, constipation and GI cramping PFS ED PFSH: Medical History Atrial fibrillation Chronic nausea Colonic diverticular abscess Congestive heart failure Coronary disease Discitis, unspecified, lumbar region DM II (diabetes mellitus, type II), controlled GUILLAUME (generalized anxiety disorder) GERD (gastroesophageal reflux disease) Gout Hypertension Lumbar stenosis with neurogenic claudication Migraine MRSA bacteremia Myopericarditis Necrotizing fasciitis Non-ST elevation [place] (NSTEMI) Osteoarthritis Pain of both breasts Pericarditis Scleroderma Small bowel obstruction Surgical History H/O colectomy H/O hernia repair History of delivery History of cholecystectomy History of neck surgery S/P dilatation of esophageal stricture S/P ANH-BSO Family History Mother Congestive heart failure Social History Smoking and tobacco status: former smoker Alcohol intake: never Lives independently: No Household members: spouse Marital status: Female Reproductive History: Date of last menstrual period: 06/02/20 Physical Exam Const: COMMON NORMALS: alert GENERAL APPEARANCE: cooperative and well developed HENMT: COMMON NORMALS: normocephalic and atraumatic HEAD & SCALP: normocephalic and atraumatic THROAT: posterior oropharynx normal Eye: COMMON NORMALS: conjunctivae normal CONJUNCTIVA: Yes conjunctivae normal SCLERA: sclerae normal Neck/C-Spine: COMMON NORMALS: supple GENERAL: Yes trachea midline Resp: COMMON NORMALS: normal respiratory effort and clear to auscultation bilaterally EFFORT & INSPECTION: Yes able to speak in complete sentences AUSCULTATION: clear to auscultation bilaterally Cardio: COMMON NORMALS: regular rate and regular rhythm RATE: regular rate RHYTHM: regular rhythm GI: COMMON NORMALS: Soft to palpation PALPATION: Yes Soft to palpation, Yes Tenderness to palpation present (GI), Yes Guarding due to palpation present (GI) and No Rigid due to palpation Extremity: GENERAL: Yes normal exam except as noted and No edema Neuro: COMMON NORMALS: moves all extremities SENSORIUM/ORIENTATION: Yes alert and No Orientation impaired Psych: COMMON NORMALS: mental status grossly normal and Normal thought process present THOUGHT PROCESS: Normal thought process present Course ED course: - Patient was seen and evaluated by me at bedside - Patient placed on cardiac monitors, IV access obtained - Initial evaluation notable for exam as above. - Labs personally interpreted by me - Fluids, antiemetic given - Labs notable for no leukocytosis, hemoconcentration. Metabolic panel with evidence of dehydration and HUNG. Bilirubin elevated because of uncertain etiology. No UTI. - Imaging notable for progression of findings consistent with worsening gas tritis or bowel obstruction without obvious transition point - Upon serial reexamination after treatment the patient was mildly improved with regards to nausea and vomiting - Based on patient history, evaluation, and testing as interpreted the most likely cause of the patient's condition is obstruction with inability to tolerate p.o. intake and dehydration - The results of ED evaluation were discussed with the patient including plan for admission due to requirement for level of care not available if discharged to prevent significant worsening/deterioration. - Admitting service was contacted and Dr Aranda with the hospitalist service agreed to admit the patient - Patient was admitted without further deterioration or significant events. Note: Click bubbles or prepopulated lutz in note writing are used for assistance with data collection and billing and are inherently more limited than narrative and other text portions of this note. Please use narrative for additional clinical history and defer to narrative/free test for any case of contradictory information. If information appears in only free text or click bubble it should be considered present or absent as reported. Please contact note typewriter assembly and parts inspector for clarifications of clinical information or contradictory information. MDM is a brief summary, contradictory or erroneous seeming information should be clarified and full note should be reviewed. Vital Signs: Vital signs: Vital Signs Temperature 98.2 F 11/13/21 17:25 Pulse Rate 74 11/13/21 17:25 Respiratory Rate 18 11/13/21 17:25 Blood Pressure 132/64 11/13/21 17:25 Pulse Oximetry 94 11/13/21 17:25 Oxygen Delivery Me thod 11/13/21 16:00 MDM - Abdominal Pain Medical Decision Making 76-year-old lady with multiple recent presentations for GI symptoms presenting for continued symptoms. Patient now with evidence of bowel obstruction. Unable to tolerate p.o. intake. Admitted for further management. Medical Records I reviewed the patient's medical records. Lab Data I reviewed the patient's lab results. : 11/13/21 04:40 11/13/21 04:40 Labs/Radiology: Radiology Impressions Abdomen/Pelvis CT 11/12/21 14:36 IMPRESSION: 1. Stable rectal anastomosis most consistent with previous partial resection. 2. Stable midline bowel anastomosis consistent with previous partial bowel resection. 3. Increased mild to moderate right hydronephrosis without obvious ureteral stone. 4. Interval appearance of dilated loops of small bowel up to 4.8 cm in diameter with enlarged stomach suggesting possible bowel obstruction versus gastritis. No obvious transition point is identified. Laboratory Results WBC 6.6 10^3/uL (4.0-10.0) 11/12/21 12:17 RBC 5.87 10^6/uL (4.1-5.3) H 11/12/21 12:17 Hgb 17.5 g/dL (11.5-15.3) H 11/12/21 12:17 Hct 52.4 % (37.0-47.0) H 11/12/21 12:17 MCV 89.3 fl (81-99) 11/12/21 12:17 MCH 29.8 pg (28.0-34.0) 11/12/21 12:17 MCHC 33.4 g/dL (30.0-36.0) 11/12/21 12:17 RDW 12.7 % (12.1-15.1) 11/12/21 12:17 Plt Count 231 10^3/cmm (130-400) 11/12/21 12:17 MPV 11.1 fL (7.4-10.4) H 11/12/21 12:17 Neut % (Auto) 69.2 % 11/12/21 12:17 Lymph % (Auto) 17.1 % 11/12/21 12:17 Boundary % (Auto) 13.1 % 11/12/21 12:17 Eos % (Auto) 0.0 % 11/12/21 12:17 Baso % (Auto) 0.3 % 11/12/21 12:17 Neut # (Auto) 4.54 10^3/uL (1.8-7.7) 11/12/21 12:17 Lymph # (Auto) 1.1 10^3/uL (0.8-4.8) 11/12/21 12:17 Boundary # (Auto) 0.9 10^3/uL (0.2-0.9) 11/12/21 12:17 Eos # (Auto) 0.0 10^3/uL (0.0-0.8) 11/12/21 12:17 Baso # (Auto) 0.0 10^3/uL (0.0-0.1) 11/12/21 12:17 Nucleated RBC % (auto) 0 % 11/12/21 12:17 Nucleated RBCs # 0.0 /100WBC 11/12/21 12:17 Sodium 139 mmol/L (136-145) 11/12/21 12:17 Potassium 4.0 mmol/L (3.5-5.1) 11/12/21 12:17 Chloride 88 mmol/L (98-107) L 11/12/21 12:17 Carbon Dioxide 35 mmol/L (22-29) H 11/12/21 12:17 Anion Gap 20.0 (5-19) H 11/12/21 12:17 BUN 25 mg/dL (8-23) H 11/12/21 12:17 Creatinine 1.0 mg/dL (0.5-0.9) H 11/12/21 12:17 GFR Calculation Not Reportable 11/12/21 12:17 Glucose 186 mg/dL (65-115) H 11/12/21 12:17 Calculated Osmolality 297 mOsm/kg (285-295) H 11/12/21 12:17 Calcium 9.8 mg/dL (8.5-10.5) 11/12/21 12:17 Total Bilirubin 1.9 mg/dL (0.15-1.2) H 11/12/21 12:17 AST 29 U/L (0-32) 11/12/21 12:17 ALT 35 U/L (0-33) H 11/12/21 12:17 Alkaline Phosphatase 111 U/L (35-105) H 11/12/21 12:17 Total Protein 7.3 g/dL (6.6-8.7) 11/12/21 12:17 Albumin 4.4 g/dL (3.5-5.2) 11/12/21 12:17 Globulin 2.9 g/dL (1.3-4.6) 11/12/21 12:17 Lipase 53 U/L (13-60) 11/12/21 12:17 Urine Color Yellow (Yellow) 11/12/21 09:55 Urine Appearance Clear (CLEAR) 11/12/21 09:55 Urine pH 9 (5-7) H 11/12/21 09:55 Ur Specific [place] 1.015 (1.005-1.030) 11/12/21 09:55 Urine Protein Neg (Negative) 11/12/21 09:55 Urine Glucose (UA) Norm (Normal) 11/12/21 09:55 Urine Ketones 1+ (Negative) H 11/12/21 09:55 Urine Blood 3+ (Negative) H 11/12/21 09:55 Urine Nitrate Negative (Negative) 11/12/21 09:55 Urine Bilirubin Neg (Negative) 11/12/21 09:55 Prot Sulfosalicylic Acd Negative (Negative) 11/12/21 09:55 Urine Urobilinogen 4 mg/dL (Negative) H 11/12/21 09:55 Ur Leukocyte Esterase Negative (Negative) 11/12/21 09:55 Urine RBC 15-25 /hpf (0-2) H 11/12/21 09:55 Urine WBC 10-15 /hpf (0-5) H 11/12/21 09:55 Ur Squamous Epith Cells 5-10 /hpf (0-5) H 11/12/21 09:55 Triple Phos Crystals 0-4 /hpf H 11/12/21 09:55 Amorphous Sediment Not Reportable 11/12/21 09:55 Urine Bacteria 2+ /hpf (NONE) H 11/12/21 09:55 Fine Granular Casts 0-4 /lpf H 11/12/21 09:55 Discharge Plan Discharge Patient Disposition: Admitted As Inpatient Admit Provider: Hank Aranda Clinical Impression: Small bowel obstruction, Dehydration, HUNG (acute kidney injury) Condition: Stable Discharge Diet: Advance as tolerated and Clear Liquid Discharge Activity: Resume usual activity and Increase activity as tolerated Coding Level of Care Code ED Human Resources Advisor for Chg Fwd Exam Comprehensive
--- NOTE | 2021-11-12 14:36 | CTR_ITS ---
PROCEDURE INFORMATION: Exam: CT Abdomen And Pelvis With Contrast Exam date and time: 11/12/2021 4:26 PM Age: 76 years old Clinical indication: Nausea and vomiting; Abdominal pain; Generalized; Prior surgery; Surgery date: 6+ months; Surgery type: Hernia, gb, appy, colon; Additional info: Diffuse abd pain, recurrent n/v TECHNIQUE: Imaging protocol: Computed tomography of the abdomen and pelvis with contrast. Radiation optimization: All CT scans at this facility use at least one of these dose optimization techniques: automated exposure control; mA and/or kV adjustment per patient size (includes targeted exams where dose is matched to clinical indication); or iterative reconstruction. Contrast material: OMNI 350; Contrast volume: 80 ml; Contrast route: INTRAVENOUS (IV); COMPARISON: CT abdomen pelvis w con* [id number] 11/09/2021 9:59 PM RADIATION DOSE METRICS: Total DLP (mGy-cm): 525.47 FINDINGS: Heart: Moderate calcification in the mitral valve and/or mitral valve annulus. Liver: Normal. No mass. Gallbladder and bile ducts: Stable cholecystectomy. Stable left pneumobilia which can be normal following cholecystectomy. Pancreas: Normal. No ductal dilation. Spleen: Calcified splenic granulomas. Adrenal glands: Normal. No mass. Kidneys and ureters: Increased mild to moderate right hydronephrosis without obvious ureteral stone. Stomach and bowel: Stable rectal anastomosis most consistent with previous partial resection. Stable midline bowel anastomosis consistent with previous partial bowel resection. Interval appearance of dilated loops of small bowel up to 4.8 cm in diameter with enlarged stomach suggesting possible bowel obstruction versus gastritis. No obvious transition point is identified. Appendix: No evidence of appendicitis. Intraperitoneal space: Unremarkable. No free air. No significant fluid collection. Vasculature: Calcification of the abdominal aorta and/or iliac arteries consistent with atherosclerotic vessel disease. Lymph nodes: Unremarkable. No enlarged lymph nodes. Urinary bladder: Unremarkable as visualized. Reproductive: Unremarkable as visualized. Bones/joints: Unremarkable. No acute fracture. Soft tissues: Unremarkable. CT/CT abdomen pelvis w con* [id number] IMPRESSION: 1. Stable rectal anastomosis most consistent with previous partial resection. 2. Stable midline bowel anastomosis consistent with previous partial bowel resection. 3. Increased mild to moderate right hydronephrosis without obvious ureteral stone. 4. Interval appearance of dilated loops of small bowel up to 4.8 cm in diameter with enlarged stomach suggesting possible bowel obstruction versus gastritis. No obvious transition point is identified.
[2021-11-12] MEDS: ondansetron 2 mg/ML SDV 2 mL 4 MG IVP (15:06)
[2021-11-12] MEDS: haloperidol inj 5 mg/mL INJ 1 mL 2 MG IVP (15:06)
[2021-11-12] MEDS: lactated ringers 1,000 ML 999 ML IV (15:06)
[2021-11-12] MEDS: dicyclomine 10 mg Capsule PO (15:22)
[2021-11-12] MEDS: iohexol 350 mg/mL 100 mL Btl IV (16:28)
--- NOTE | 2021-11-12 17:46 | P.CONIM_ITS ---
Providers/Reason For Consult Consulting Physician/Specialty*: Loyd Miller MD Reason for Consult*: Bowel obstruction Requesting Physician: Primary Care Provider: Baldomero Britt MD History of Present Illness History of Present Illness Ms. Anju Duffy is a pleasant 76 year old female with extensive surgical history and recurrent episodes of bowel obstruction, with frequent hospitalizations. Patient presented to the ER with abdominal pain being dull and constipation and recurrent nausea and vomiting. Patient was seen and evaluated in the emergency department few days ago yet she does report developing worsening symptoms. Sequently came to the ER for further evaluation reports that the pain is being diffuse and severe its worse with eating and vomiting and she does give history of constipation and GI cramping. Patient undergone further evaluation in the ER and blood work did show WBC count of 6.6, hemoglobin 17.5, platelet count 231, sodium 139, potassium 4.0, creatinine 1.[address] of the abdomen pelvis that showed 1. Stable rectal anastomosis most consistent with previous partial resection. 2. Stable midline bowel anastomosis consistent with previous partial bowel resection. 3. Increased mild to moderate right hydronephrosis without obvious ureteral stone. 4. Interval appearance of dilated loops of small bowel up to 4.8 cm in diameter with enlarged stomach suggesting possible bowel obstruction versus gastritis. No obvious transition point is identified. ? General surgery was consulted for further evaluation and potential management. Patient was seen and evaluated in the emergency department room #7 Review of Systems General: Reports: 10 or more systems reviewed and unremarkable except in HPI and below Medications/Allergies Home Medications Medication Instructions Recorded Confirmed Last Taken Type carvedilol 12.5 mg tablet See Rx Instructions .Route .COMPLEX 02/06/21 11/12/21 11/11/21 History ondansetron HCl 8 mg tablet 8 mg PO TID PRN Nausea And Vomiting 03/21/21 0 11/12/21 11/09/21 History Prevagen 1 cap PO DAILY 06/07/21 11/12/21 11/11/21 History apixaban 5 mg tablet (Eliquis) 5 mg PO BID 90 days #180 tabs 08/01/21 11/12/21 11/11/21 Rx amlodipine 2.5 mg tablet 2.5 mg PO QAM #90 tabs 09/25/21 11/12/21 11/11/21 Rx pantoprazole 40 mg tablet,delayed 40 mg PO DAILY #60 tabs 11/09/21 11/12/21 11/11/21 Rx release (Protonix) buspirone 5 mg tablet 5 mg PO TID PRN Anxiety 11/10/21 11/12/21 11/09/21 History nitrofurantoin 100 mg PO BID 7 days #14 caps 11/10/21 11/12/21 11/11/21 Rx monohydrate/macrocrystals 100 mg capsule (Macrobid) magnesium hydroxide 400 mg/5 mL 1,200 mg (15 mL) PO QID PRN 11/11/21 11/12/21 11/11/21 Rx oral suspension (Milk of Magnesia) constipation #355 mL polyethylene glycol 3350 17 17 g PO BID #119 grams 11/11/21 11/12/21 11/11/21 Rx gram/dose oral powder (Miralax) Allergies Allergy/AdvReac Type Severity Reaction Status Date / Time Latex, Natural Rubber Allergy ALGY-Rash Verified 11/12/21 18:33 olanzapine [From Zyprexa] Allergy hallucinati Verified 11/12/21 18:33 ons/agitate d lorazepam [From Ativan] AdvReac hallucination, Verified 11/12/21 18:33 agitated PFSH Acute PFSH: Medical History Atrial fibrillation Chronic nausea Colonic diverticular abscess Congestive heart failure Coronary disease Discitis, unspecified, lumbar region DM II (diabetes mellitus, type II), controlled GUILLAUME (generalized anxiety disorder) GERD (gastroesophageal reflux disease) Gout Hypertension Lumbar stenosis with neurogenic claudication Migraine MRSA bacteremia Myopericarditis Necrotizing fasciitis Non-ST elevation [place] (NSTEMI) Osteoarthritis Pain of both breasts Pericarditis Scleroderma Small bowel obstruction Surgical History H/O colectomy H/O hernia repair History of cholecystectomy S/P dilatation of esophageal stricture S/P ANH-BSO Family History Mother Congestive heart failure Social History Smoking and tobacco status: former smoker Alcohol intake: never Female Reproductive History: Date of last menstrual period: 06/02/20 Vitals/I&O/Wt Last Vital Signs Temp 97.1 F L 11/12/21 12:30 Pulse 85 11/12/21 17:08 Resp 14 11/12/21 17:08 BP 147/75 11/12/21 17:08 Pulse Ox 94 11/12/21 17:08 O2 Del Method 11/12/21 17:08 Weight last 48 hrs Weight 138 lb Physical Exam Narrative: Patient is conscious alert oriented X3 Mild to moderate distress BMI 25.2 Head and neck examination PERRLA no masses no cervical lymphadenopathy no jaundice Cardiac examination audible S1-S2 no murmurs no gallops no arrhythmias Chest is clear bilateral,abscence of Rhonchi or wheezes,no surgical emphysema Abdomen nontender except mostly at the left lower abdomen ,nondistended soft no organomegaly guarding or rigidity/no signs of peritonitis. Multiple scar tissue. Extremities no cyanosis no clubbing no edema Data : 11/12/21 12:17 11/12/21 12:17 A&P Assessment and plan (1) Constipated: After history taking physical examination and reviewing the chart, with my presented potation of the CT of the abdomen pelvis, actually the patient has a chronic baseline constipation with extensive scar tissues led to the clinical picture with recurrent episodes of nausea and vomiting. From surgical standpoint of view would recommend to place NG to low intermittent suction IV fluid resuscitation Repeated physical examination Assurance and education All questions have been answered and all concerns have been addressed to patient's satisfaction. Status: Acute Consult Attestations Medical Necessity Statement: Per admitting service Coding Level of Care Code Acute Senior Product Development Engineer for Tad Sanderson Diagnoses Constipated K59.00
--- NOTE | 2021-11-12 20:10 | PM.HP ---
Providers/Chief Complaint Admitting Physician: Hank Aranda Primary Care Provider: Baldomero Britt MD Chief Complaint: Abd pain History of Present Illness Very pleasant 76-year-old lady with multiple past abdominal surgeries, past episodes of bowel obstruction, reports overall has been doing better up until 4 days ago when her symptoms of recurrent nausea, vomiting, poor oral intake started. Reports last bowel movement was 5-7 days ago. Prior to that was taking MiraLAX with her coffee. Passing minimal flatus. With poor oral intake. Says prior to that was improving in terms of her function, was getting up up to an hour a day, and was planning to visit her siblings but now had to cancel her plans. She has been having abdominal pain associated with her symptoms around left side abdomen as well as left upper and epigastric discomfort. In ER NG tube was placed, so far appears to have filled about 2-1/2 suction canister is full. Reports she is feeling somewhat better. CT abdomen pelvis in ER shows stable rectal anastomosis most consistent with previous partial resection, stable midline bowel anastomosis consistent with prior partial bowel resection, increased mild to moderate right hydronephrosis without obvious ureteral stone. Interval appearance of dilated loops of small bowel up to 4.8 cm in diameter with a large stomach suggesting possible bowel obstruction versus gastritis. No obvious transition point. She is afebrile, without leukocytosis. Carbon oxide 35, anion gap 20, BUN 25, creatinine 1. Glucose 186. T bili 1.9, AST 29, ALT 35, alk phos 111. Lipase 53. UA currently not performed, but was obtained on 11/10 which showed 1+ ketones, 3+ blood, 25-40 RBC, 0-4 WBC, 0-4 SEC. Terms of CODE STATUS, states she has a signed DNR. Would not want cardiopulmonary resuscitation in case of cardiac arrest, but would want mechanical ventilatory support in cases of transient respiratory failure. Review of Systems Const: Denies: fever(s), chills, body aches or malaise Eyes: Denies: change in vision, eye discomfort or eye redness ENMT: Denies: throat pain, oral sores or ear or mastoid pain Card: Denies: chest pain, edema, pre-syncope or dyspnea on exertion Resp: Denies: dyspnea, productive cough, change in phlegm color or hemoptysis GI: Reports: abdominal pain, nausea, vomiting, constipation and bloating; Denies: diarrhea, hematochezia or melena : Denies: flank pain, urinary frequency or hematuria Musc: Denies: back pain, joint swelling or joint redness Skin/Breast: Denies: rash or new lesions Neuro: Denies: headache(s), numbness in extremities, weakness in extremities, dizziness, confusion or seizure-like activity Endo: Denies: polyuria or polydipsia [place]/Lymph: Denies: easy bleeding or tender lymph nodes All/Imm: Denies: urticaria or tongue swelling Medications/Allergies Home Medications Medication Instructions Recorded Confirmed Last Taken Type carvedilol 12.5 mg tablet See Rx Instructions .Route .COMPLEX 02/06/21 11/12/21 11/11/21 History ondansetron HCl 8 mg tablet 8 mg PO TID PRN Nausea And Vomiting 03/21/21 11/12/21 11/09/21 History Prevagen 1 cap PO DAILY 06/07/21 11/12/21 11/11/21 History apixaban 5 mg tablet (Eliquis) 5 mg PO BID 90 days #180 tabs 08/01/21 11/12/21 11/11/21 Rx amlodipine 2.5 mg tablet 2.5 mg PO QAM #90 tabs 09/25/21 11/12/21 11/11/21 Rx pantoprazole 40 mg tablet,delayed 40 mg PO DAILY #60 tabs 11/09/21 11/12/21 11/11/21 Rx release (Protonix) buspirone 5 mg tablet 5 mg PO TID PRN Anxiety 11/10/21 11/12/21 11/09/21 History nitrofurantoin 100 mg PO BID 7 days #14 caps 11/10/21 11/12/21 11/11/21 Rx monohydrate/macrocrystals 100 mg capsule (Macrobid) magnesium hydroxide 400 mg/5 mL 1,200 mg (15 mL) PO QID PRN 11/11/21 11/12/21 11/11/21 Rx oral suspension (Milk of Magnesia) constipation #355 mL polyethylene glycol 3350 17 17 g PO BID #119 grams 11/11/21 11/12/21 11/11/21 Rx gram/dose oral powder (Miralax) Allergies Allergy/AdvReac Type Severity Reaction Status Date / Time Latex, Natural Rubber Allergy ALGY-Rash Verified 11/12/21 18:33 olanzapine [From Zyprexa] Allergy hallucinati Verified 11/12/21 18:33 ons/agitate d lorazepam [From Ativan] AdvReac hallucination, Verified 11/12/21 18:33 agitated PFSH Acute PFSH: Medical History Atrial fibrillation Chronic nausea Colonic diverticular abscess Congestive heart failure Coronary disease Discitis, unspecified, lumbar region DM II (diabetes mellitus, type II), controlled GUILLAUME (generalized anxiety disorder) GERD (gastroesophageal reflux disease) Gout Hypertension Lumbar stenosis with neurogenic claudication Migraine MRSA bacteremia Myopericarditis Necrotizing fasciitis Non-ST elevation HI (NSTEMI) Osteoarthritis Pain of both breasts Pericarditis Scleroderma Small bowel obstruction Surgical History H/O colectomy H/O hernia repair History of delivery History of cholecystectomy History of neck surgery S/P dilatation of esophageal stricture S/P ANH-BSO Family History Mother Congestive heart failure Social History Smoking and tobacco status: former smoker Alcohol intake: never Lives independently: No Household members: spouse Marital status: Female Reproductive History: Date of last menstrual period: 06/02/20 Vitals/I&O/Wt Last Vital Signs Temp 97.1 F L 11/12/21 12:30 Pulse 85 11/12/21 17:08 Resp 14 11/12/21 17:08 BP 147/75 11/12/21 17:08 Pulse Ox 94 11/12/21 17:08 O2 Del Method 11/12/21 17:08 Weight last 48 hrs Weight 62.596 kg Physical Exam Const: COMMON NORMALS: patient oriented x3 and alert GENERAL APPEARANCE: cooperative ORIENTATION/CONSCIOUSNESS: Yes awake HENMT: COMMON NORMALS: oropharynx normal Neck/C-Spine: COMMON NORMALS: no JVD Resp: COMMON NORMALS: normal respiratory effort and clear to auscultation bilaterally AUSCULTATION: clear to auscultation bilaterally Cardio: COMMON NORMALS: no JVD, regular rhythm, S1 normal heart sound present, S2 normal heart sound present and No murmurs present (Cardio) RHYTHM: regular rhythm HEART SOUNDS: S1 normal heart sound present and S2 normal heart sound present GI: COMMON NORMALS: Soft to palpation INSPECTION: Yes abdominal distension AUSCULTATION: Yes Hypoactive bowel sounds present PALPATION: Yes Soft to palpation and Yes Tenderness to palpation present (GI) Details: LLQ Extremity: COMMON NORMALS: no joint enlargement GENERAL: Yes edema (Trace) Neuro: COMMON NORMALS: patient oriented x3 and moves all extremities SENSORIUM/ORIENTATION: Yes alert Skin: COMMON NORMALS: no rashes or lesions noted GENERAL SKIN EXAM: no rashes or lesions noted Data : 11/12/21 12:17 11/12/21 12:17 A&P Assessment and plan (1) Partial bowel obstruction: Assessed by surgery. NGT placed. So far decompression of large volume of green appearing GI secretions. States symptomatically she is improving with NGT decompression. Bowel rest. Gentle IV hydration given history of CHF. Status: Acute (2) Hyperbilirubinemia: History of cholecystectomy, some noted chronic left pneumobilia, not unexpected, she has no right upper quadrant pain or discomfort. Unclear cause of some hyperbilirubinemia, alk phos elevation. Possibly some cholestasis with poor oral intake, partial bowel obstruction. Gentle IV fluid resuscitation as above. We will follow-up liver parameters. Symptoms. Currently without signs of sepsis or infection. Status: Acute (3) Hydronephrosis, right: Unclear cause of hydronephrosis. No visualized stone. She has had no flank pain, no CVA tenderness on exam. Noted microscopic hematuria. Unclear if had a stone previously which may be passed or other cause of hydronephrosis. Will need additional follow-up. Currently renal function minimally if at all affected. No signs of infection. Monitor for any change in symptoms. Status: Acute (4) Microscopic hematuria: Will need additional follow-up. UA 9/2 with microscopic hematuria. Denies any urinary symptoms. Urine culture 9/2 mixed urogenital brian on day 1. Follow-up. Status: Acute Plan Recurrent constipation Multiple past abdominal surgeries A. fib, usually on anticoagulation with Eliquis. Currently unable to take. With partial bowel obstruction. For now position to prophylactic dose Lovenox until her clinical situation is more clear. IV BB until able to resume oral intake. CAD Myopericarditis HFpEF DM2 GERD HTN scleroderma GUILLAUME Discitis lumbar spine Gout Lumbar spinal stenosis Migraine headaches Other past problems noted Attestations Medical Necessity Statement*: Admission of over 2 midnights is anticipated for management of a bowel obstruction in a lady with recurrent history of bowel obstruction, history of multiple abdominal surgeries, additional incidental findings with hyperbilirubinemia, possible cholestasis, as well as additional incidental new finding of hydronephrosis on the right, microscopic hematuria, and lady with multiple comorbidities as above. Coding Level of Care Code Acute Studio Control Operator for [facility] Fwd Diagnoses Partial bowel obstruction K56.600 Hyperbilirubinemia E80.6 Hydronephrosis, right N13.30 Microscopic hematuria R31.29
[2021-11-12 21:26] LABS: Glucose Point of Care 151 mg/dL (70-110)
[2021-11-12] MEDS: pantoprazole 40 mg SDV IVP (21:41)
[2021-11-12] MEDS: metoprolol tartrate 1 mg/1 mL SDV 5 mL 5 MG IVP (21:42)
[2021-11-12] MEDS: lactated ringers 1,000 ML 75 ML IV (21:45)
[2021-11-12] MEDS: enoxaparin 40 mg/0.4 mL Syringe SUBCUT (21:45)
[2021-11-13] VITALS: BP 124/70; PULSE 85; RESP 17; TEMP 36.5; O2SAT 95
[2021-11-13 04:00] VITALS: BP 120/65; PULSE 94; RESP 16; TEMP 36.4; O2SAT 92
[2021-11-13 05:16] LABS: Glucose Point of Care 95 mg/dL (70-110)
[2021-11-13 05:25] LABS: Basophils % 0.2 %; Eosinophils % 0.2 %; Hematocrit 44.1 % (37.0-47.0); Hemoglobin 14.2 g/dL (11.5-15.3); Lymphocytes % 23.1 %; Mean Corpuscular HGB Conc 32.2 g/dL (30.0-36.0); Mean Corpuscular Hemoglobin 29.9 pg (28.0-34.0); Mean Corpuscular Volume 92.8 fl (81-99); Mean Platelet Volume 11.5 fL (7.4-10.4); Monocytes # 1.6 10^3/uL (0.2-0.9); Monocytes % 17.8 %; Neutrophils # 5.14 10^3/uL (1.8-7.7); Neutrophils % 58.6 %; Nucleated Red Blood Cells % 0 %; Platelet Count 176 10^3/cmm (130-400); Red Blood Count 4.75 10^6/uL (4.1-5.3); Red Cell Distribution Width 12.9 % (12.1-15.1); White Blood Count 8.8 10^3/uL (4.0-10.0)
[2021-11-13] MEDS: metoprolol tartrate 1 mg/1 mL SDV 5 mL 5 MG IVP ×4 (05:30→13:57)
[2021-11-13 05:46] LABS: Alanine Aminotransferase 23 U/L (0-33); Albumin Level 3.3 g/dL (3.5-5.2); Alkaline Phosphatase 81 U/L (35-105); Anion Gap 12.1 (5-19); Aspartate Amino Transferase 23 U/L (0-32); Blood Urea Nitrogen 24 mg/dL (8-23); Calcium 8.6 mg/dL (8.5-10.5); Carbon Dioxide 36 mmol/L (22-29); Chloride 94 mmol/L (98-107); Globulin 2.1 g/dL (1.3-4.6); Glucose 95 mg/dL (65-115); Magnesium 2.2 mg/dL (1.7-2.3); Osmolality Calculated 292 mOsm/kg (285-295); Potassium 3.1 mmol/L (3.5-5.1); Sodium 139 mmol/L (136-145); Total Bilirubin 1.5 mg/dL (0.15-1.2); Total Protein 5.4 g/dL (6.6-8.7)
[2021-11-13 08:00] VITALS: BP 110/58; PULSE 72; RESP 17; TEMP 36.9; O2SAT 91
--- NOTE | 2021-11-13 08:37 | P.PN_ITS ---
Subjective Subjective: Patient reports that he feels a whole lot better and passing gas and had 2 bowel movements. Medications: Reviewed: Yes Vitals/I&O/Wt Last Vital Signs Temp 97.6 F 11/13/21 04:00 Pulse 94 11/13/21 04:00 Resp 16 11/13/21 04:00 BP 120/65 11/13/21 04:00 Pulse Ox 92 11/13/21 04:00 O2 Del Method 11/12/21 22:34 Weight last 48 hrs Weight 140 lb 14.4 oz Weight 138 lb Physical Exam Narrative: Patient is conscious alert oriented X3 No apparent distress BMI 26 Head and neck examination PERRLA no masses no cervical lymphadenopathy no jaundice NG in place Abdomen nontender nondistended soft no organomegaly guarding or rigidity/no signs of peritonitis Data : 11/13/21 04:40 11/13/21 04:40 A&P Assessment and plan (1) Constipated: We will plan to clamp NG tube for 2 hours and check residuals thereafter by hooking it back to suction, if less than 200 mL will DC NG tube and start the patient on clear liquid. With that regard the patient continues to do well she can be discharged home today from surgical standpoint of view providing patient is appropriate from hospitalist service. Assurance and education All questions have been answered and all concerns have been addressed to patient's satisfaction. Status: Acute Attestations Medical Necessity Statement*: Per admitting service Coding Level of Care Code Acute Geospatial Intelligence Analyst for [facility] Fwd Diagnoses Constipated K59.00
[2021-11-13] MEDS: lidocaine 1% 5 ML in potassium chloride premix 100 ML 25 ML IV (09:27)
[2021-11-13 10:35] LABS: Bilirubin Urine Neg (Negative); Blood Urine 3+ (Negative); Glucose Urine UA Norm (Normal); Ketones Urine 1+ (Negative); Nitrate Urine Negative (Negative); Protein Urine Neg (Negative); Specific Gravity, Urine 1.015 (1.005-1.030); Urine Appearance Clear (CLEAR); Urine Color Yellow (Yellow); pH Urine 9 (5-7)
[2021-11-13 10:36] LABS: Add Urine Microscopic? YES; Bacteria Urine 2+ /hpf; Leukocyte Esterase Urine Negative (Negative); RBC Urine 15-25 /hpf (0-2); Sulfosalicylic Acid Urine Negative (Negative); Urobilinogen Urine 4 mg/dL (Negative)
[2021-11-13 10:37] LABS: Add Urine Culture? Yes; Fine Granular Casts Urine 0-4 /lpf; Triple Phosphate Crystal Urine 0-4 /hpf
--- NOTE | 2021-11-13 10:56 | PC.CHAP ---
Pastoral Care Encounter/Spiritual Assessment Type of Contact [] Declined community health representative visit [] Patient/Family/Request visit [] Outpatient visit [] Follow-up visit [] Physician referral [] Code/Alert [x] Routine visit [] Staff referral [] Actively dying [] Patient sleeping [] Family support [] [] Out of room [] Palliative care [] [] Receiving care in room [] Pre-surgical visit [] Trauma [] Long length of stay [] ICU visit [] Other: Relational/Emotional Strength [x] Patient feels connected with others/family/visitors/staff [] Distress [] Loneliness/isolation [] Abandonment Spirituality of Patient [x] Person of Martha [] Attends Sabianism of their Martha [x] Believes in Prayer [x] Reads Bible or Yazidi materials [] There are Spiritual issues to be addressed Protection Agent Interventions [x] Prayer [x] Active listening x[x] Non-anxious presence [x] Spiritual/emotional support [] Crisis/trauma care [] Spiritual counseling [] Bereavement support [] Provided bereavement packet [] Provided Bible/devotional materials [] Provided toy/stuffed animal, coloring book to patient or family member [] Provided Communion [] Anointing/[place] [] Salvation [x] Completed spiritual assessment [] Other: Impact on Illness or Injury [] Angry [] Fearful [] Anxious [] Often cries [] Exhaustion [] Unable to work [] Unable to attend religion [] Unable to walk/stand [] Unable to read [] Unable to drive [] Unable to eat/drink [] Unable to sleep [] Unable to be with family [] Patient intubated [] Other: Summary Time spent with patient 10 min
[2021-11-13] MEDS: lactated ringers 1,000 ML 75 ML IV (11:42)
[2021-11-13 12:00] VITALS: BP 122/65; PULSE 72; RESP 16; TEMP 36.7; O2SAT 92
--- NOTE | 2021-11-13 14:32 | PC.NURSE ---
physician notified of 10mL residual after clamping ngtube for 2 hours as ordered. ng tube removed as ordered. cld tolerated for lunch. 100% and 480mL. Pain reported in right lower quadrant of 2-3. Pain reported in left lower quadrant of 1. Denies n/v or cramping.
[2021-11-13 16:00] VITALS: BP 132/64; PULSE 74; RESP 16; TEMP 36.8; O2SAT 94
--- NOTE | 2021-11-13 16:15 | PM.DCS ---
Discharge Providers Date of Admission: 11/12/21 17:55 Date of Discharge: November 13, 2021 Attending Provider at Admission: Hank Aranda Attending Provider at Discharge: Hank Aranda Primary Care Provider: Baldomero Britt MD Diagnoses at Discharge Discharge Diagnosis (1) Constipated: Status: Acute Reason for Visit Reason for Visit: Abd pain Brief History: Very pleasant 76-year-old lady with multiple past abdominal surgeries, past episodes of bowel obstruction, reports overall has been doing better up until 4 days ago when her symptoms of recurrent nausea, vomiting, poor oral intake started.? Reports last bowel movement was 5-7 days ago.? Prior to that was taking MiraLAX with her coffee.? Passing minimal flatus.? With poor oral intake.? Says prior to that was improving in terms of her function, was getting up up to an hour a day, and was planning to visit her siblings but now had to cancel her plans. She has been having abdominal pain associated with her symptoms around left side abdomen as well as left upper and epigastric discomfort.? In ER NG tube was placed, so far appears to have filled about 2-1/2 suction canister is full.? Reports she is feeling somewhat better.? CT abdomen pelvis in ER shows stable rectal anastomosis most consistent with previous partial resection, stable midline bowel anastomosis consistent with prior partial bowel resection, increased mild to moderate right hydronephrosis without obvious ureteral stone.? Interval appearance of dilated loops of small bowel up to 4.8 cm in diameter with a large stomach suggesting possible bowel obstruction versus gastritis.? No obvious transition point. She is afebrile, without leukocytosis.? Carbon oxide 35, anion gap 20, BUN 25, creatinine 1.? Glucose 186.? T bili 1.9, AST 29, ALT 35, alk phos 111.? Lipase 53.? UA currently not performed, but was obtained on 11/10 which showed 1+ ketones, 3+ blood, 25-40 RBC, 0-4 WBC, 0-4 SEC. Terms of CODE STATUS, states she has a signed DNR.? Would not want cardiopulmonary resuscitation in case of cardiac arrest, but would want mechanical ventilatory support in cases of transient respiratory failure. Hospital Course Hospital Course Overnight she continued to improve. She subsequently had 2 bowel movements. Overall feeling much better. NG tube was clamped, with low residual NG tube was removed. She was started on clear liquids and able to resume medications and discharged home from surgical standpoint. With gentle fluid resuscitation alk phos abnormality resolved. T bili improved down to 1.5. Increase suspected due to partial bowel obstruction, possibly some cholestasis with poor oral intake. Please reassess hepatobiliary parameters. CT abdomen pelvis as noted with seen moderate right-sided hydronephrosis without ureteral stone. Etiology unclear. Noted recently microscopic hematuria on several UA for which was started on nitrofurantoin. Hydronephrosis would be unusual but possibly from the partial bowel obstruction as well. Please follow-up renal function. She is asked to follow-up with urology regarding hydronephrosis and microscopic hematuria. Physical Exam Const: COMMON NORMALS: patient oriented x3 and alert GENERAL APPEARANCE: cooperative ORIENTATION/CONSCIOUSNESS: Yes awake OTHER: She is feeling much better and she is in good spirits. Pleasant, conversant. HENMT: COMMON NORMALS: oropharynx normal Neck/C-Spine: COMMON NORMALS: no JVD Resp: COMMON NORMALS: normal respiratory effort and clear to auscultation bilaterally AUSCULTATION: clear to auscultation bilaterally Cardio: COMMON NORMALS: no JVD, regular rhythm, S1 normal heart sound present, S2 normal heart sound present and No murmurs present (Cardio) RHYTHM: regular rhythm HEART SOUNDS: S1 normal heart sound present and S2 normal heart sound present GI: COMMON NORMALS: Soft to palpation and non-tender INSPECTION: Yes normal to inspection AUSCULTATION: Yes Hypoactive bowel sounds present PALPATION: Yes Soft to palpation Extremity: COMMON NORMALS: no joint enlargement and no pedal edema Neuro: COMMON NORMALS: patient oriented x3 and moves all extremities SENSORIUM/ORIENTATION: Yes alert Skin: COMMON NORMALS: no rashes or lesions noted GENERAL SKIN EXAM: no rashes or lesions noted Discharge Data Studies Completed and Pending Completed Studies During Hospitalization Category Date Time Status CT abdomen pelvis w con* [id number] Stat Cat Scan 11/12/21 14:36 Completed Pending at discharge Category Date Time Status Complete Blood Count w/Auto AM LABS Lab 11/14/21 04:00 Ordered Complete Blood Count w/Auto AM LABS Lab 11/15/21 04:00 Ordered Comprehensive Metabolic Panel AM LABS Lab 11/14/21 04:00 Ordered Comprehensive Metabolic Panel AM LABS Lab 11/15/21 04:00 Ordered Urine Culture Stat Lab 11/12/21 09:55 Received Radiology Impressions Abdomen/Pelvis CT 11/12/21 14:36 IMPRESSION: 1. Stable rectal anastomosis most consistent with previous partial resection. 2. Stable midline bowel anastomosis consistent with previous partial bowel resection. 3. Increased mild to moderate right hydronephrosis without obvious ureteral stone. 4. Interval appearance of dilated loops of small bowel up to 4.8 cm in diameter with enlarged stomach suggesting possible bowel obstruction versus gastritis. No obvious transition point is identified. Laboratory Results WBC 8.8 10^3/uL (4.0-10.0) 11/13/21 04:40 RBC 4.75 10^6/uL (4.1-5.3) 11/13/21 04:40 Hgb 14.2 g/dL (11.5-15.3) 11/13/21 04:40 Hct 44.1 % (37.0-47.0) 11/13/21 04:40 MCV 92.8 fl (81-99) 11/13/21 04:40 MCH 29.9 pg (28.0-34.0) 11/13/21 04:40 MCHC 32.2 g/dL (30.0-36.0) 11/13/21 04:40 RDW 12.9 % (12.1-15.1) 11/13/21 04:40 Plt Count 176 10^3/cmm (130-400) 11/13/21 04:40 MPV 11.5 fL (7.4-10.4) H 11/13/21 04:40 Neut % (Auto) 58.6 % 11/13/21 04:40 Lymph % (Auto) 23.1 % 11/13/21 04:40 [place] % (Auto) 17.8 % 11/13/21 04:40 Eos % (Auto) 0.2 % 11/13/21 04:40 Baso % (Auto) 0.2 % 11/13/21 04:40 Neut # (Auto) 5.14 10^3/uL (1.8-7.7) 11/13/21 04:40 Lymph # (Auto) 2.0 10^3/uL (0.8-4.8) 11/13/21 04:40 [place] # (Auto) 1.6 10^3/uL (0.2-0.9) H 11/13/21 04:40 Eos # (Auto) 0.0 10^3/uL (0.0-0.8) 11/13/21 04:40 Baso # (Auto) 0.0 10^3/uL (0.0-0.1) 11/13/21 04:40 Nucleated RBC % (auto) 0 % 11/13/21 04:40 Nucleated RBCs # 0.0 /100WBC 11/13/21 04:40 Sodium 139 mmol/L (136-145) 11/13/21 04:40 Potassium 3.1 mmol/L (3.5-5.1) L 11/13/21 04:40 Chloride 94 mmol/L (98-107) L 11/13/21 04:40 Carbon Dioxide 36 mmol/L (22-29) H 11/13/21 04:40 Anion Gap 12.1 (5-19) 11/13/21 04:40 BUN 24 mg/dL (8-23) H 11/13/21 04:40 Creatinine 0.7 mg/dL (0.5-0.9) 11/13/21 04:40 GFR Calculation Not Reportable 11/13/21 04:40 Glucose 95 mg/dL (65-115) 11/13/21 04:40 POC Glucose 95 mg/dL (70-110) 11/13/21 05:13 Calculated Osmolality 292 mOsm/kg (285-295) 11/13/21 04:40 Calcium 8.6 mg/dL (8.5-10.5) 11/13/21 04:40 Magnesium 2.2 mg/dL (1.7-2.3) 11/13/21 04:40 Total Bilirubin 1.5 mg/dL (0.15-1.2) H 11/13/21 04:40 AST 23 U/L (0-32) 11/13/21 04:40 ALT 23 U/L (0-33) 11/13/21 04:40 Alkaline Phosphatase 81 U/L (35-105) 11/13/21 04:40 Total Protein 5.4 g/dL (6.6-8.7) L D 11/13/21 04:40 Albumin 3.3 g/dL (3.5-5.2) L 11/13/21 04:40 Globulin 2.1 g/dL (1.3-4.6) 11/13/21 04:40 Lipase 53 U/L (13-60) 11/12/21 12:17 Urine Color Yellow (Yellow) 11/12/21 09:55 Urine Appearance Clear (CLEAR) 11/12/21 09:55 Urine pH 9 (5-7) H 11/12/21 09:55 Ur Specific [place] 1.015 (1.005-1.030) 11/12/21 09:55 Urine Protein Neg (Negative) 11/12/21 09:55 Urine Glucose (UA) Norm (Normal) 11/12/21 09:55 Urine Ketones 1+ (Negative) H 11/12/21 09:55 Urine Blood 3+ (Negative) H 11/12/21 09:55 Urine Nitrate Negative (Negative) 11/12/21 09:55 Urine Bilirubin Neg (Negative) 11/12/21 09:55 Prot Sulfosalicylic Acd Negative (Negative) 11/12/21 09:55 Urine Urobilinogen 4 mg/dL (Negative) H 11/12/21 09:55 Ur Leukocyte Esterase Negative (Negative) 11/12/21 09:55 Urine RBC 15-25 /hpf (0-2) H 11/12/21 09:55 Urine WBC 10-15 /hpf (0-5) H 11/12/21 09:55 Ur Squamous Epith Cells 5-10 /hpf (0-5) H 11/12/21 09:55 Triple Phos Crystals 0-4 /hpf H 11/12/21 09:55 Amorphous Sediment Not Reportable 11/12/21 09:55 Urine Bacteria 2+ /hpf (NONE) H 11/12/21 09:55 Fine Granular Casts 0-4 /lpf H 11/12/21 09:55 Vitals Last Vital Signs Temp 98.0 F 11/13/21 12:00 Pulse 72 11/13/21 12:00 Resp 16 11/13/21 12:00 BP 122/65 11/13/21 12:00 Pulse Ox 92 11/13/21 12:00 O2 Del Method 11/13/21 12:00 Discharge Plan Discharge Patient Disposition: Home Condition: Stable Prescriptions: Continued Eliquis 5 mg tablet 5 mg PO BID 90 Days Qty: 180 2RF Rx Instructions: 340 B carvedilol 12.5 mg tablet See Rx Instructions .ROUTE .COMPLEX Rx Instructions: take 12.5mg qam and 6.25mg qpm ondansetron HCl 8 mg tablet 8 mg PO TID PRN (Reason: Nausea And Vomiting) Prevagen 1 cap PO DAILY pantoprazole [Protonix] 40 mg tablet,delayed release (DR/EC) 40 mg PO DAILY Qty: 60 0RF buspirone 5 mg tablet 5 mg PO TID PRN (Reason: Anxiety) nitrofurantoin monohyd/m-cryst [Macrobid] 100 mg capsule 100 mg PO BID 7 Days Qty: 14 0RF Rx Instructions: must administer with a meal/food magnesium hydroxide [Milk of Magnesia] 400 mg/5 mL suspension 1,200 mg PO QID PRN (Reason: constipation) Qty: 355 0RF polyethylene glycol 3350 [Miralax] 17 gram/dose powder 17 g PO BID Qty: 119 0RF Held amlodipine 2.5 mg tablet 2.5 mg PO QAM Qty: 90 1RF Hold Instructions: Resume on 11/20/21. Discharge Orders: Discharge Order (Routine); Ordered 11/13/21 Ordered By: Hank Aranda Referrals: Baldomero Britt MD [Primary Care Provider] - 4-7 days (Partial bowel obstruction, hyperbilirubinemia, incidental hydronephrosis, microscopic hematuria) Austen Farnsworth MD [Physician] - 1 week (Hydronephrosis, microscopic hematuria) Discharge Diet: Advance as tolerated and Clear Liquid Discharge Activity: Resume usual activity and Increase activity as tolerated Patient Instructions: Hydronephrosis (GEN), Bowel Obstruction (GEN) Activity Restrictions/Additional Instructions: Please follow-up with your primary doctor for reassessment after [place] of partial bowel obstruction. Please have your primary doctor also reassess your bilirubin level which was noted to be mildly elevated, suspect likely secondary to bowel obstruction. Please also follow-up with your primary doctor and urology for reassessment of incidentally seen right side hydronephrosis, as well as recently noted microscopic hematuria. Please monitor blood pressures at home 2-3 times daily, write down values to bring to your appointment. Hold carvedilol if blood pressures are lower than 110/50. For now hold amlodipine. Discharge Attestations Time Spent in Discharge Care*: greater than 30 min Status at Discharge: Cognitive status at discharge: cognitively intact, Behavioral status at discharge: cooperative, Quality Metrics Clinical Quality Measures [ No reported AMI, CVA or VTE this stay] Coding Level of Care Code Acute Kennethg JOSE ROBERTO KOCH note Diagnoses Constipated K59.00
[2021-11-13 17:25] VITALS: BP 132/64; PULSE 74; RESP 18; TEMP 36.8; O2SAT 94
== END 2021-11-13 17:29 | disposition home or self-care (01) | DRG 389 ==
LOC: ER 17:54 → ER IP 18:28 → MEDSURG 19:33
PROVIDERS: Registered Nurse; Admitting Provider Internal Medicine; Emergency Provider Emergency Medicine; PCP Family Medicine; Visit Provider Internal Medicine
DX: K56.600 Partial intestinal obstruction, unspecified as to cause (principal); N13.30 Unspecified hydronephrosis; K59.00 Constipation, unspecified; I48.91 Unspecified atrial fibrillation; I11.0 Hypertensive heart disease with heart failure; I50.9 Heart failure, unspecified; I25.10 Atherosclerotic heart disease of native coronary artery without angina pectoris; E11.9 Type 2 diabetes mellitus without complications; F41.1 Generalized anxiety disorder; K21.9 Gastro-esophageal reflux disease without esophagitis; M10.9 Gout, unspecified; Z86.14 Personal history of Methicillin resistant Staphylococcus aureus infection; I25.2 Old myocardial infarction; M19.90 Unspecified osteoarthritis, unspecified site; Z90.49 Acquired absence of other specified parts of digestive tract; Z87.891 Personal history of nicotine dependence; Z66 Do not resuscitate; Z79.01 Long term (current) use of anticoagulants; R31.29 Other microscopic hematuria
CPT/HCPCS: 36415; 36416; 74022; 74176; 74177; 80053; 81001; 82962; 83605; 83690; 83735; 85025; 87086; 93005; 96361; 96372; 96374; 96375; 96376; 99284; 99285; C9113; J1170; J1630; J1650; J2270; J2405; J3480; J3490; J7030; J7040; Q9967

== ENCOUNTER → 2022-02-12 13:15 | Outpatient (BNVA) | payer MEDICARE, OTHER, SELFPAY | PROVIDERS: PCP Family Medicine; Visit Provider Nurse Practitioner Family | DX: R07.9 Chest pain, unspecified (principal); I48.0 Paroxysmal atrial fibrillation; I11.0 Hypertensive heart disease with heart failure; I50.9 Heart failure, unspecified; Z87.891 Personal history of nicotine dependence | CPT/HCPCS: 93005; 99214 ==

== ENCOUNTER 2022-03-21 09:37 | Outpatient (CLI) | payer MEDICARE, OTHER, SELFPAY ==
--- NOTE | 2022-03-21 | ECG_ITS ---
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 Interpretive Statements NAME OF STUDY: EXERCISE SESTAMIBI STRESS TEST INDICATION: Chest Pain, PROCEDURE: The baseline electrocardiogram showed normal sinus rhythm with normal ST-Ts. Poor R wave progression. Nonspecific IVCD. At the baseline, the patient's blood pressure was 130/68 mm Hg with a heart rate of 68. The patient exercised for 7 minutes and 43 seconds on a standard Alexi protocol. Patient attained a maximum heart rate of 127 beats per minute(87% of the maximum predicted heart rate) with a blood pressure at the peak exercise of mm Hg. The EKG at the peak exercise revealed an [address] depression in leads II, III, aVF, V5 and V6. Patient did not have any chest pain or any significant arrhythmis with the exercise Sestamibi was injected 1 minute prior to the peak exercise During the recovery phase, there were no new changes. EKG reported back to the baseline Blood pressure at the end of the recovery phase was 213/81 mm Hg with a heart rate of 90 per minute. CONCLUSION: 1. Abnormal EKG response to [treadmill exercise suggesting inferolateral wall ischemia 2. No exercise-induced chest pain or cardiac arrhythmia. Patient was mainly complaining of shortness of breath with exercise 3. Fair exercise tolerance, attained a maximum of 10.2 METs 4. Sestamibi/Sestamibi perfusion results pending; see separate report. 5. The Mg treadmill score was -9(moderate). Electronically Signed On 03-23-2022 11:52:00 EDUCATION PROFESSIONAL by Gerri Sal M.D. [id number]
[2022-03-21 10:43] VITALS: BMI 25.6
--- NOTE | 2022-03-21 10:46 | NMCV_ITS ---
NM ramsey perf SPECT r/s* [id number] Anju Duffy Age: 77 Gender: F : 1945 Exam Date: 03/21/2022 11:26 Ordering Phys: Ewa Stewart Technologist: UBALDO Barnes Exam Location: [facility] Indications: CHEST PAIN STRESS TEST [facility] IMAGE PROTOCOL Rest/Stress 1 Exercise Day Radiopharmaceutical Dose (mCi) Administration Site Administered by Rest: Tc-99m 10.6 IV UBALDO Farmer Sestamibi Stress:Tc-99m 32.1 IV UBALDO Farmer Sestamibi Rest: 21-Mar-2022 60 Discovery 630 Stress: 21-Mar-2022 15 Discovery 630 Radiopharmaceutical was injected at 85 % maximum heart rate. Supine position only as patient was unable to lay prone. SPECT RESULTS Technical Quality: Excellent Raw Data Analysis: Normal Image Corrections: No attenuation or motion correction applied Summed Stress Score: 0 Summed Rest Score: 3 Summed Difference Score: 0 PERFUSION FINDINGS Fairly uniform myocardial tracer uptake with no significant perfusion abnormalities. Decreased tracer uptake was noted in the inferior wall region with the rest images most likely from attenuation FUNCTIONAL RESULTS (calculated via Gated SPECT) Stress Image LV EF (%): 86 Stress EDV (mL):58 TID: 0.77 Stress ESV (mL):8 FUNCTIONAL FINDINGS: Segmental wall motion analysis revealing no gross wall motion abnormalities IMPRESSIONS 1. Myocardial perfusion imaging revealing fairly uniform myocardial tracer uptake with no significant perfusion abnormalities. 2. Normal LV ejection fraction of 86%. 3. LV wall motion analysis revealing no gross wall motion abnormalities. 4. Normal LV volume Low probability for coronary ischemia, based on the above findings Dr Gerri Sal MD [facility] (Electronically Signed) Final Date: 21 March 2022 21:11 S
--- NOTE | 2022-03-21 10:46 | PC.NURSE ---
upon arrival to [facility], nurse asked about medications. pt had held her carvedilol but not her amlodipine. she had taken her 2.5 mg amlodipine this am. resting HR was 66. nurse called to get approval to continue. dr approved the test. will proceed as usual.
[2022-03-21 12:39] VITALS: BP 146/83; PULSE 88
== END 2022-03-21 09:38 | disposition home or self-care (01) ==
LOC: CDL 09:42
PROVIDERS: PCP Family Medicine; Visit Provider Nurse Practitioner Family
DX: R07.9 Chest pain, unspecified (principal)
CPT/HCPCS: 36415; 78452; 93017; A9500

== ENCOUNTER → 2022-05-01 14:42 | Outpatient (BNVA) | payer MEDICARE, OTHER, SELFPAY | PROVIDERS: PCP Family Medicine; Visit Provider Nurse Practitioner Family | DX: I48.0 Paroxysmal atrial fibrillation (principal); I11.0 Hypertensive heart disease with heart failure; I50.9 Heart failure, unspecified; Z79.01 Long term (current) use of anticoagulants; Z87.891 Personal history of nicotine dependence | CPT/HCPCS: 99214 ==

== ENCOUNTER 2022-06-24 21:18 | Inpatient (IN) | payer MEDICARE, OTHER, SELFPAY ==
[2022-06-24 21:19] VITALS: BP 218/99; PULSE 87; RESP 22; TEMP 36.5; O2SAT 98; BMI 25.7
--- NOTE | 2022-06-24 21:52 | CTR_ITS ---
PROCEDURE INFORMATION: Exam: CT Abdomen And Pelvis With Contrast Exam date and time: 06/24/2022 11:24 PM Age: 77 years old Clinical indication: Abdominal pain; Generalized; Prior surgery; Surgery date: 6+ months; Surgery type: Colectomy, hernia repair, ; Additional info: Abd pain, vomiting HX of sbo TECHNIQUE: Imaging protocol: Computed tomography of the abdomen and pelvis with contrast. Radiation optimization: All CT scans at this facility use at least one of these dose optimization techniques: automated exposure control; mA and/or kV adjustment per patient size (includes targeted exams where dose is matched to clinical indication); or iterative reconstruction. Contrast material: OMNI 350; Contrast volume: 75 ml; Contrast route: INTRAVENOUS (IV); REPORTING DATA: Count of CT and Cardiac NM exams in prior 12 months: This patient has received 4 known CTs and 0 known cardiac nuclear medicine studies in the 12 months prior to the current study. COMPARISON: CT abdomen pelvis w con* [id number] 11/12/2021 4:26 PM RADIATION DOSE METRICS: Total DLP (mGy-cm): 465.27 FINDINGS: Tubes, catheters and devices: A nasogastric tube is placed with its tip in the proximal stomach. New status post cholecystectomy. Liver: Normal. No mass. Gallbladder and bile ducts: Bile duct is prominent measuring 11.8 mm in its midportion. There is mild pneumobilia again seen within the left hepatic lobe common bile duct. This is similar to present 11/12/2021. There is a slight decrease in the intrahepatic biliary dilatation compared with 11/12/2021. Pancreas: Normal. No ductal dilation. Spleen: Calcifications are seen in the spleen compatible with calcified granulomas. Adrenal glands: Normal. No mass. Kidneys and ureters: There are stable bilateral small renal cysts. Largest is seen in the posterior aspect of the left kidney measuring 9 mm. Stomach and bowel: Patient appears to be status post a left hemicolectomy and reanastomosis of small bowel proximally and distally. There are dilated fluid-filled loops of small bowel seen within the lower abdomen and pelvis, findings that could represent a partial small bowel obstruction today. This appears less prominent compared with 11/12/2021. Again, no transition is identified. Appendix: No evidence of appendicitis. Intraperitoneal space: Unremarkable. No free air. No significant fluid collection. Vasculature: Calcifications are seen in the thoracic and abdominal aorta, iliac arteries and femoral arteries bilaterally and at the origins of renal arteries. Lymph nodes: Unremarkable. No enlarged lymph nodes. Urinary bladder: Unremarkable as visualized. Reproductive: Status post hysterectomy. Bones/joints: Unremarkable. No acute fracture. Soft tissues: Unremarkable. CT/CT abdomen pelvis w con* [id number] IMPRESSION: 1. Status post left hemicolectomy. Anastomoses are seen in the proximally and at the rectal anastomosis. There is dilatation of small bowel seen in the lower abdomen and pelvis suggesting a partial small bowel obstruction. This appears less prominent today compared with 11/13/2019 2 hours. Again, no definite transition is identified. 2. Stable bilateral renal cysts, the largest seen left measuring 9 mm. No further workup needed. 3. Prominent common bile duct. There is pneumobilia again seen within the left hepatic lobe and common bile duct similar to that present on 11/12/2021.
[2022-06-24 22:00] VITALS: BP 167/75; PULSE 74; O2SAT 100
[2022-06-24] MEDS: sodium chloride 0.9% 1,000 ML 999 ML IV (22:32)
[2022-06-24] MEDS: HYDROmorphone 1 mg/mL INJ 1 mL IVP (22:33)
[2022-06-24] MEDS: ondansetron 2 mg/ML SDV 2 mL 4 MG IVP (22:33)
[2022-06-24 22:39] LABS: Urine Appearance Clear (CLEAR); Urine Color Colorless (Yellow)
[2022-06-24 22:40] LABS: Add Urine Microscopic? YES; Bilirubin Urine Neg (Negative); Blood Urine 2+ (Negative); Glucose Urine UA Norm (Normal); Ketones Urine 1+ (Negative); Leukocyte Esterase Urine Negative (Negative); Nitrate Urine Negative (Negative); Protein Urine Neg (Negative); Specific Gravity, Urine 1.015 (1.005-1.030); Sulfosalicylic Acid Urine Negative (Negative); Urobilinogen Urine Norm (Negative); pH Urine 9 (5-7)
[2022-06-24 22:41] LABS: RBC Urine 25-40 /hpf (0-2)
[2022-06-24 22:42] LABS: Add Urine Culture? Yes; Bacteria Urine TRACE /hpf; Squamous Epithelial Cell Urine 0-4 /hpf (0-5); WBC Urine 0-4 /hpf (0-5)
[2022-06-24 22:47] LABS: Basophils # 0.1 10^3/uL (0.0-0.1); Basophils % 0.6 %; Eosinophils # 0.3 10^3/uL (0.0-0.8); Eosinophils % 2.4 %; Hematocrit 49.2 % (37.0-47.0); Hemoglobin 16.4 g/dL (11.5-15.3); Lymphocytes # 2.7 10^3/uL (0.8-4.8); Lymphocytes % 19.8 %; Mean Corpuscular HGB Conc 33.3 g/dL (30.0-36.0); Mean Corpuscular Hemoglobin 29.9 pg (28.0-34.0); Mean Corpuscular Volume 89.6 fl (81-99); Mean Platelet Volume 10.7 fL (7.4-10.4); Monocytes % 7.6 %; Neutrophils # 9.21 10^3/uL (1.8-7.7); Neutrophils % 68.9 %; Nucleated Red Blood Cells % 0 %; Platelet Count 215 10^3/cmm (130-400); Red Blood Count 5.49 10^6/uL (4.1-5.3); Red Cell Distribution Width 12.1 % (12.1-15.1); White Blood Count 13.4 10^3/uL (4.0-10.0)
[2022-06-24] MEDS: cetacaine Spray 20 gm Can 1 SPRAY TOPICAL (22:50)
--- NOTE | 2022-06-24 22:59 | XRR_ITS ---
PROCEDURE INFORMATION: Exam: XR Chest Exam date and time: 06/24/2022 11:33 PM Age: 77 years old Clinical indication: Device placement; Ng tube; Prior surgery; Surgery date: 6+ months; Surgery type: Colectomy, hernia repair, ; Additional info: Ng tube placement TECHNIQUE: Imaging protocol: Radiologic exam of the chest. Views: 1 view. COMPARISON: CR XR chest 1V portable [id number] 01/23/2021 12:01 PM FINDINGS: Tubes, catheters and devices: A nasogastric tube is placed with its tip in the proximal stomach. Proximal side port is at the gastroesophageal junction. New there is a background centrilobular emphysema and pulmonary fibrosis. Mild bilateral bronchiectasis seen. Lungs: See Tubes, catheters and devices finding. Pleural spaces: Unremarkable. No pleural effusion. No pneumothorax. Heart/Mediastinum: Unremarkable. No cardiomegaly. Bones/joints: Unremarkable. XR/XR chest 1V portable [id number] IMPRESSION: 1. Nasogastric tube tip in proximal stomach with the proximal side port at the gastroesophageal junction. 2. Background centrilobular emphysema, pulmonary fibrosis and bronchiectasis.
[2022-06-24 23:00] LABS: INR 1.19 (0.8-1.2)
[2022-06-24 23:01] LABS: Partial Thromboplastin Time 36.6 SECONDS (23.9-36.7)
--- NOTE | 2022-06-24 23:04 | W.ED.ABDPA2 ---
HPI - Abdominal Pain General: Chief Complaint: Abdominal Pain Stated Complaint: abdomen pain Time Seen by Provider: 06/24/22 21:33 Source: patient History of Present Illness: 77-year-old female with a history of recurrent small bowel obstruction. She has had multiple abdominal surgeries, for partial colectomy and adhesiolysis. She had onset of belly pain earlier in the evening. She has vomited multiple times. Pain is diffuse, but left-sided greater than right-sided. She says because of her history, she eats mostly liquid/ground of food. No fever. No diarrhea. No blood. MD elicited complaint: abdominal pain Pertinent past history: other Onset (ago): hour(s) Pain Consistency: intermittent Location: Diffuse and LLQ Quality: stabbing Radiation: none Migration to: no migration Relieving factors: nothing Associated Symptoms: Reports nausea, poor appetite and vomiting; Denies dysuria, fever(s) and hematochezia Review of Systems Const: Denies: fever(s) Card: Denies: chest pain or palpitations Resp: Denies: dyspnea, productive cough or non-productive cough GI: Reports: abdominal pain, nausea and vomiting; Denies: hematochezia : Denies: dysuria PFSH ED PFSH: Medical History Atrial fibrillation Chronic nausea Colonic diverticular abscess Congestive heart failure Coronary disease Discitis, unspecified, lumbar region DM II (diabetes mellitus, type II), controlled GUILLAUME (generalized anxiety disorder) GERD (gastroesophageal reflux disease) Gout Hypertension Lumbar stenosis with neurogenic claudication Migraine MRSA bacteremia Myopericarditis Necrotizing fasciitis Non-ST elevation [place] (NSTEMI) Osteoarthritis Pain of both breasts Pericarditis Scleroderma Small bowel obstruction Surgical History H/O colectomy H/O hernia repair History of delivery History of cholecystectomy History of neck surgery S/P dilatation of esophageal stricture S/P ANH-BSO Family History Mother Congestive heart failure Social History Smoking and tobacco status: former smoker Alcohol intake: never Lives independently: No Household members: spouse Marital status: Physical Exam Const: GENERAL APPEARANCE: cooperative and ill appearing HENMT: COMMON NORMALS: normocephalic, atraumatic and Normal external nose present HEAD & SCALP: normocephalic and atraumatic NOSE: Normal external nose present and Normal nares present Eye: COMMON NORMALS: Equal, round and reactive pupils present and EOMs intact bilaterally PUPIL: Yes Equal, round and reactive pupils present Neck/C-Spine: GENERAL: Yes trachea midline Chest: CHEST: Yes Symmetrical chest wall rise Resp: COMMON NORMALS: normal respiratory effort, No use of accessory muscles and clear to auscultation bilaterally AUSCULTATION: clear to auscultation bilaterally Cardio: COMMON NORMALS: regular rate and regular rhythm RATE: regular rate RHYTHM: regular rhythm GI: INSPECTION: Yes abdominal distension AUSCULTATION: Yes Hypoactive bowel sounds present PALPATION: Yes Tenderness to palpation present (GI) and Yes Guarding due to palpation present (GI) Course Vital Signs: Vital signs: Vital Signs Temperature 97.7 F 06/24/22 21:19 Pulse Rate 74 06/24/22 22:00 Respiratory Rate 20 H 06/25/22 01:50 Blood Pressure 167/75 06/24/22 22:00 Pulse Oximetry 100 06/25/22 01:50 Oxygen Delivery Me thod Room Air 06/24/22 22:00 MDM - Abdominal Pain Medical Decision Making White blood cell count is 13.4. Blood pressure is greatly improved with pain control. Potassium is 3.3. CRP is not elevated. Nasogastric tube is placed with good return and relief of discomfort to some degree. As tip is in the proximal stomach, we will advance. CT shows partial small bowel obstruction with no definite transition point. With the patient having to have NG tube for relief of pressure and discomfort, will require admission. Spoke with hospitalist. She agrees and will see the patient in the emergency department. Lab Data 06/24/22 22:25 06/24/22 22:25 Labs/Radiology: Radiology Impressions Abdomen/Pelvis CT 06/24/22 21:52 IMPRESSION: 1. Status post left hemicolectomy. Anastomoses are seen in the proximally and at the rectal anastomosis. There is dilatation of small bowel seen in the lower abdomen and pelvis suggesting a partial small bowel obstruction. This appears less prominent today compared with 11/13/2019 2 hours. Again, no definite transition is identified. 2. Stable bilateral renal cysts, the largest seen left measuring 9 mm. No further workup needed. 3. Prominent common bile duct. There is pneumobilia again seen within the left hepatic lobe and common bile duct similar to that present on 11/12/2021. Chest X-Ray 06/24/22 22:59 IMPRESSION: 1. Nasogastric tube tip in proximal stomach with the proximal side port at the gastroesophageal junction. 2. Background centrilobular emphysema, pulmonary fibrosis and bronchiectasis. Laboratory Results WBC 13.4 10^3/uL (4.0-10.0) H 06/24/22 22:25 RBC 5.49 10^6/uL (4.1-5.3) H 06/24/22 22:25 Hgb 16.4 g/dL (11.5-15.3) H 06/24/22 22:25 Hct 49.2 % (37.0-47.0) H 06/24/22 22:25 MCV 89.6 fl (81-99) 06/24/22 22:25 MCH 29.9 pg (28.0-34.0) 06/24/22 22:25 MCHC 33.3 g/dL (30.0-36.0) 06/24/22 22:25 RDW 12.1 % (12.1-15.1) 06/24/22 22:25 Plt Count 215 10^3/cmm (130-400) 06/24/22 22:25 MPV 10.7 fL (7.4-10.4) H 06/24/22 22:25 Neut % (Auto) 68.9 % 06/24/22 22:25 Lymph % (Auto) 19.8 % 06/24/22 22:25 Clinch % (Auto) 7.6 % 06/24/22 22:25 Eos % (Auto) 2.4 % 06/24/22 22:25 Baso % (Auto) 0.6 % 06/24/22 22:25 Neut # (Auto) 9.21 10^3/uL (1.8-7.7) H 06/24/22 22:25 Lymph # (Auto) 2.7 10^3/uL (0.8-4.8) 06/24/22 22:25 Clinch # (Auto) 1.0 10^3/uL (0.2-0.9) H 06/24/22 22:25 Eos # (Auto) 0.3 10^3/uL (0.0-0.8) 06/24/22 22:25 Baso # (Auto) 0.1 10^3/uL (0.0-0.1) 06/24/22 22:25 Nucleated RBC % (auto) 0 % 06/24/22 22:25 Nucleated RBCs # 0.0 /100WBC 06/24/22 22:25 PT 15.50 SECONDS (12.1-14.9) H 06/24/22 22:25 INR 1.19 (0.8-1.2) 06/24/22 22:25 APTT 36.6 SECONDS (23.9-36.7) 06/24/22 22:25 Sodium 140 mmol/L (136-145) 06/24/22 22:25 Potassium 3.3 mmol/L (3.5-5.1) L 06/24/22 22:25 Chloride 100 mmol/L (98-107) 06/24/22 22:25 Carbon Dioxide 23 mmol/L (22-29) 06/24/22 22:25 Anion Gap 20.3 (5-19) H 06/24/22 22:25 BUN 14 mg/dL (8-23) 06/24/22 22:25 Creatinine 0.7 mg/dL (0.5-0.9) 06/24/22 22:25 GFR Calculation Not Reportable 06/24/22 22:25 Glucose 126 mg/dL (65-115) H 06/24/22 22:25 Calculated Osmolality 292 mOsm/kg (285-295) 06/24/22 22:25 Lactate 2.1 mmol/L (0.5-2.2) 06/24/22 22:25 Calcium 9.6 mg/dL (8.5-10.5) 06/24/22 22:25 Total Bilirubin 1.1 mg/dL (0.15-1.2) 06/24/22 22:25 AST 20 U/L (0-32) 06/24/22 22:25 ALT 14 U/L (0-33) 06/24/22 22:25 Alkaline Phosphatase 76 U/L (35-105) 06/24/22 22:25 C-Reactive Protein 3.0 mg/L (0.0-4.9) 06/24/22 22:25 Total Protein 7.2 g/dL (6.6-8.7) 06/24/22 22:25 Albumin 4.4 g/dL (3.5-5.2) 06/24/22 22:25 Globulin 2.8 g/dL (1.3-4.6) 06/24/22 22:25 Lipase 27 U/L (13-60) 06/24/22 22:25 Urine Color Colorless (Yellow) 06/24/22 21:59 Urine Appearance Clear (CLEAR) 06/24/22 21:59 Urine pH 9 (5-7) H 06/24/22 21:59 Ur Specific [place] 1.015 (1.005-1.030) 06/24/22 21:59 Urine Protein Neg (Negative) 06/24/22 21:59 Urine Glucose (UA) Norm (Normal) 06/24/22 21:59 Urine Ketones 1+ (Negative) H 06/24/22 21:59 Urine Blood 2+ (Negative) H 06/24/22 21:59 Urine Nitrate Negative (Negative) 06/24/22 21:59 Urine Bilirubin Neg (Negative) 06/24/22 21:59 Prot Sulfosalicylic Acd Negative (Negative) 06/24/22 21:59 Urine Urobilinogen Norm mg/dL (Negative) 06/24/22 21:59 Ur Leukocyte Esterase Negative (Negative) 06/24/22 21:59 Urine RBC 25-40 /hpf (0-2) H 06/24/22 21:59 Urine WBC 0-4 /hpf (0-5) H 06/24/22 21:59 Ur Squamous Epith Cells 0-4 /hpf (0-5) H 06/24/22 21:59 Amorphous Sediment Not Reportable 06/24/22 21:59 Urine Bacteria Trace /hpf (NONE) 06/24/22 21:59 Discharge Plan Discharge Admit Provider: Ela Mckeon Condition: Stable Coding Level of Care Code 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
[2022-06-24 23:07] LABS: Alanine Aminotransferase 14 U/L (0-33); Albumin Level 4.4 g/dL (3.5-5.2); Alkaline Phosphatase 76 U/L (35-105); Anion Gap 20.3 (5-19); Aspartate Amino Transferase 20 U/L (0-32); Blood Urea Nitrogen 14 mg/dL (8-23); Calcium 9.6 mg/dL (8.5-10.5); Carbon Dioxide 23 mmol/L (22-29); Chloride 100 mmol/L (98-107); Globulin 2.8 g/dL (1.3-4.6); Glucose 126 mg/dL (65-115); Lipase 27 U/L (13-60); Osmolality Calculated 292 mOsm/kg (285-295); Potassium 3.3 mmol/L (3.5-5.1); Sodium 140 mmol/L (136-145); Total Bilirubin 1.1 mg/dL (0.15-1.2); Total Protein 7.2 g/dL (6.6-8.7)
[2022-06-24 23:08] LABS: Lactate (Lactic Acid level) 2.1 mmol/L (0.5-2.2)
[2022-06-24] MEDS: iohexol 350 mg/mL 500 mL Btl (per mL) IV (23:27)
[2022-06-25] VITALS (11 sets, daily range): BP systolic 119–181; BP diastolic 61–89; PULSE 64–81; RESP 16–20; TEMP 36.4–37.2; O2SAT 95–100
[2022-06-25] MEDS: morphine 4 mg/mL SDV 1 mL IM (01:50)
--- NOTE | 2022-06-25 02:29 | P.HP_ITS ---
Providers/Chief Complaint Admitting Physician: Ela Mckeon MD Primary Care Provider: Baldomero Britt MD Chief Complaint: abdomen pain History of Present Illness Anju Duffy is a 77 year old female with PMH of multiple past abdominal surgeries, past episodes of bowel obstruction, reports overall has been doing better up until 4 days ago when her symptoms of recurrent nausea, vomiting, poor oral intake started.?Says she is usually constipated and on a liquid diet and did not eat anything wrong. She is on a severely restricted diet. Says she takes stool softners on a regular basis. She has had multiple bowel obstructions in the past and therefore knew that this was another one of those. She has not been vomiting but induced vomiting by herself to relieve the abdominal pressure she was feeling. Otherwise denies chest pain or shortness of breath but does have abdominal pain. Denies diarrhea. ER course: Abdomen/Pelvis CT? 06/24/22 21:52 IMPRESSION: 1. ? Status post left hemicolectomy. Anastomoses are seen in the proximally and at the rectal anastomosis. There is dilatation of small bowel seen in the lower abdomen and pelvis suggesting a partial small bowel obstruction. This appears less prominent today compared with 11/13/2019 2 hours. Again, no definite transition is identified. 2. ? Stable bilateral renal cysts, the largest seen left measuring 9 mm. No further workup needed. 3. ? Prominent common bile duct. There is pneumobilia again seen within the left hepatic lobe and common bile duct similar to that present on 11/12/2021. ? Chest X-Ray? 06/24/22 22:59 IMPRESSION: 1. ? Nasogastric tube tip in proximal stomach with the proximal side port at the gastroesophageal junction. 2. ? Background centrilobular emphysema, pulmonary fibrosis and bronchiectasis. WBC 13.4, HB 16.4, sodium 140, potassium 3.3, AG 20.3, creatinine 0.7 UA 25-40 rbc, 2+ blood Medications/Allergies Home Medications Medication Instructions Recorded Confirmed Last Taken Type ondansetron HCl 8 mg tablet 8 mg PO TID PRN Nausea And Vomiting 03/21/21 05/01/22 11/09/21 History Prevagen 1 cap PO DAILY 06/07/21 05/01/22 11/11/21 History buspirone 5 mg tablet 5 mg PO TID PRN Anxiety 11/10/21 05/01/22 11/09/21 History magnesium hydroxide 400 mg/5 mL 1,200 mg (15 mL) PO QID PRN 11/11/21 05/01/22 11/11/21 Rx oral suspension (Milk of Magnesia) constipation #355 mL amlodipine 2.5 mg tablet 2.5 mg PO QAM #90 tabs 02/08/22 05/01/22 Unknown Rx carvedilol 12.5 mg tablet See Rx Instructions PO BID 05/01/22 05/01/22 Unknown History apixaban 5 mg tablet (Eliquis) 5 mg PO BID #180 tabs 05/03/22 Unknown Rx Allergies Allergy/AdvReac Type Severity Reaction Status Date / Time Latex, Natural Rubber Allergy ALGY-Rash Verified 05/01/22 15:08 olanzapine [From Zyprexa] Allergy hallucinati Verified 05/01/22 15:08 ons/agitate d lorazepam [From Ativan] AdvReac hallucination, Verified 05/01/22 15:08 agitated PFSH Acute PFSH: Medical History Atrial fibrillation Chronic nausea Colonic diverticular abscess Congestive heart failure Coronary disease Discitis, unspecified, lumbar region DM II (diabetes mellitus, type II), controlled GUILLAUME (generalized anxiety disorder) GERD (gastroesophageal reflux disease) Gout Hypertension Lumbar stenosis with neurogenic claudication Migraine MRSA bacteremia Myopericarditis Necrotizing fasciitis Non-ST elevation [place] (NSTEMI) Osteoarthritis Pain of both breasts Pericarditis Scleroderma Small bowel obstruction Surgical History H/O colectomy H/O hernia repair History of delivery History of cholecystectomy History of neck surgery S/P dilatation of esophageal stricture S/P ANH-BSO Family History Mother Congestive heart failure Social History Smoking and tobacco status: former smoker Alcohol intake: never Lives independently: No Household members: spouse Marital status: Vitals/I&O/Wt Last Vital Signs Temp 97.7 F 06/24/22 21:19 Pulse 74 06/24/22 22:00 Resp 20 H 06/25/22 01:50 BP 167/75 06/24/22 22:00 Pulse Ox 100 06/25/22 01:50 O2 Del Method Room Air 06/24/22 22:00 06/24/22 06/24/22 06/25/22 14:59 22:59 06:59 Intake Total 500 / 500 Balance 500 / 500 Weight last 48 hrs Weight 63.957 kg Physical Exam Narrative: Elderly female sitting up in bed appearing comfortable at this time, getting US guided IV placed NG tube draining yellowish material, no blood normal s1, s2, no murmers distended abdomen, mildly tender to palpation all 4 quadrants, no apparent guarding no edema b/l LE Data 06/24/22 22:25 06/24/22 22:25 A&P Assessment and plan (1) Small bowel obstruction: (2) Dehydration: (3) Atrial fibrillation: Qualifiers: Atrial fibrillation type: paroxysmal Qualified Code(s): I48.0 - Paroxysmal atrial fibrillation (4) Hypertension: Qualifiers: Hypertension type: essential hypertension Qualified Code(s): I10 - Essential (primary) hypertension (5) Protein-energy malnutrition: Plan #Partial SBO #Hx of multiple abd surgeries and adhesiolysis #HTN #Afib, on chronic AC #Protein calorie malnutrition - Place NG tube to LIWS - Manage conservatively - NPO - NS @ 75 cc/hr - Will need to confirm home meds in AM - Hold eliquis incase of need of surgical procedure - Hydralazine 5 IV q4h prn systolic bp> 180 - Morphine 2-4 mg IV q4H pRN - Consider gen surg consult - Recheck labs in AM, monitor for electrolyte loss and replete as needed Full Code SCDS, Attestations Medical Necessity Statement*: > 2 midnight stay for management of SBO Other Coding Information Focused coding review requested Diagnoses Small bowel obstruction K56.609 Dehydration E86.0 Atrial fibrillation I48.0 Atrial fibrillation type: paroxysmal Hypertension I10 Hypertension type: essential hypertension Protein-energy malnutrition E46
--- NOTE | 2022-06-25 03:44 | PC.NURSE ---
Patient refusing a gown at this time.
--- NOTE | 2022-06-25 03:48 | PC.NURSE ---
Addendum entered by Marley Kee RN 06/25/22 06:12: Med rec completed with via telephone. Original Note: Unable to compete med rec at this time. Patient states her takes care of all that. Home medication list will need to be obtained via or pharmacy in AM.
[2022-06-25] MEDS: morphine 4 mg/mL SDV 1 mL 2 MG IVP ×2 (03:52→07:13)
[2022-06-25] MEDS: ondansetron 2 mg/ML SDV 2 mL 4 MG IVP ×2 (03:52→09:15)
[2022-06-25] MEDS: sodium chloride 0.9% 1,000 ML 75 ML IV ×2 (03:52→17:20)
[2022-06-25 05:40] LABS: Procalcitonin 0.04 ng/mL (0-0.5)
[2022-06-25] MEDS: bisacodyl 10 mg Supp PR (09:15)
--- NOTE | 2022-06-25 10:23 | PC.CHAP ---
Pastoral Care Encounter/Spiritual Assessment Type of Contact [] Declined healthcare or medical visit [] Patient/Family/Request visit [] Outpatient visit [] Follow-up visit [] Physician referral [] Code/Alert [x] Routine visit [] Staff referral [] Actively dying [] Patient sleeping [] Family support [] [] Out of room [] Palliative care [] [] Receiving care in room [] Pre-surgical visit [] Trauma [] Long length of stay [] ICU visit [] Other: Relational/Emotional Strength [] Patient feels connected with others/family/visitors/staff [] Distress [] Loneliness/isolation [] Abandonment Spirituality of Patient [] Person of Martha [] Attends Protestant of their Martha [] Believes in Prayer [] Reads Bible or Quaker materials [] There are Spiritual issues to be addressed Communications Executive Interventions [x] Prayer [] Active listening [] Non-anxious presence [] Spiritual/emotional support [] Crisis/trauma care [] Spiritual counseling [] Bereavement support [] Provided bereavement packet [] Provided Bible/devotional materials [] Provided toy/stuffed animal, coloring book to patient or family member [] Provided Communion [] Anointing/[place] [] Salvation [] Completed spiritual assessment [] Other: Impact on Illness or Injury [] Angry [] Fearful [] Anxious [] Often cries [] Exhaustion [] Unable to work [] Unable to attend zoroastrianism [] Unable to walk/stand [] Unable to read [] Unable to drive [] Unable to eat/drink [] Unable to sleep [] Unable to be with family [] Patient intubated [] Other: Summary Time spent with patient 5 min
--- NOTE | 2022-06-25 11:30 | P.PN_ITS ---
Subjective Subjective: nAju reports she feels better than she did last night, likely secondary to the NG. She has not had any bowel movement in the hospital yet. She has not passed any gas. She does report one small soft bowel movement at home prior to coming in. Abdominal discomfort is still present, but better. History and physical reviewed in detail. Medications: Reviewed: Yes Vitals/I&O/Wt Last Vital Signs Temp 98.0 F 06/25/22 07:57 Pulse 71 06/25/22 07:57 Resp 16 06/25/22 07:57 BP 121/67 06/25/22 07:57 Pulse Ox 95 06/25/22 07:57 O2 Del Method Room Air 06/25/22 07:57 06/24/22 06/25/22 06/25/22 22:59 06:59 14:59 Intake Total 1000 / 1000 Output Total 700 / 700 Balance 300 / 300 Weight last 48 hrs Weight 65.181 kg Weight 63.957 kg Physical Exam Narrative: General exam is no distress Neck is supple Cardiovascular regular rate and rhythm without murmur Lungs clear Abdomen is soft, hypoactive bowel sounds, slight generalized tenderness Extremities no cyanosis clubbing or edema Skin without rash Data 06/24/22 22:25 06/24/22 22:25 A&P Assessment and plan (1) Small bowel obstruction: Patient presents with vomiting and abdominal pain consistent with partial small bowel obstruction. CT suggested this as well although no definite transition point was noted. Pneumobilia was seen within the left hepatic lobe and common bile duct, similar to that. Surgery consultation Dulcolax suppository Continue NG to low intermittent suction Continue hydration Discussed with nursing to have her up in the chair, ambulating today. Morphine as needed for pain. (2) Atrial fibrillation: Patient with history of atrial fibrillation Continue carvedilol Hold apixaban in case surgical procedure is needed. Changed to Lovenox. Qualifiers: Atrial fibrillation type: paroxysmal Qualified Code(s): I48.0 - Paroxysmal atrial fibrillation (3) DM II (diabetes mellitus, type II), controlled: Sliding scale insulin Qualifiers: Diabetes mellitus terminal worker insulin use: without penitentiary use Diabetes mellitus complication status: without complication Qualified Code(s): E11.9 - Type 2 diabetes mellitus without complications (4) Dehydration: Continue hydration. Check BMP daily on saline (5) Congestive heart failure: No evidence of heart failure currently. Appears compensated. Last echo demonstrates preserved EF. Nuclear stress test in March essentially normal. Plan Other medical problems as noted in past medical history Lovenox for DVT prophylaxis Attestations Medical Necessity Statement*: Needs continued hospitalization until improvement regarding small bowel obstruction. Coding Level of Care Code Acute Code for [facility] Fwd Diagnoses Small bowel obstruction K56.609 Atrial fibrillation I48.0 Atrial fibrillation type: paroxysmal DM II (diabetes mellitus, type II), controlled E11.9 Diabetes mellitus terminal worker insulin use: without terminal worker use Diabetes mellitus complication status: without complication Dehydration E86.0 Congestive heart failure I50.9
[2022-06-25] MEDS: enoxaparin 80 mg/0.8 mL Syringe 70 MG SUBCUT (14:35)
--- NOTE | 2022-06-25 15:04 | PM.CONSULT ---
Providers/Reason For Consult Consulting Physician/Specialty*: Dr. Jose Juan Carbone, DO/General surgery Reason for Consult*: Small bowel obstruction Attending Physician: Neto Moran MD Primary Care Provider: Baldomero Britt MD History of Present Illness History of Present Illness Anju Duffy is a 77 year old female, with a history of left hemicolectomy and multiple small bowel obstructions, who presents to the hospital with 1 day history of left lower quadrant abdominal pain and nausea. She made herself vomit once to relieve the pressure but denies any hematemesis. She reports that she has not had a bowel movement since last night. She has not passed flatus in at least a day. Her abdominal pain is sharp and constant. Palpation makes pain worse. Nothing makes pain better. The pain does not radiate. Review of Systems General: Reports: 10 or more systems reviewed and unremarkable except in HPI and below Medications/Allergies Home Medications Medication Instructions Recorded Confirmed Last Taken Type ondansetron HCl 8 mg tablet 8 mg PO TID PRN Nausea And Vomiting 03/21/21 06/25/22 11/09/21 History Prevagen 1 cap PO DAILY 06/07/21 06/25/22 1 Day Ago History ~06/24/22 buspirone 5 mg tablet 5 mg PO TID PRN Anxiety 11/10/21 06/25/22 11/09/21 History magnesium hydroxide 400 mg/5 mL 1,200 mg (15 mL) PO QID PRN 11/11/21 06/25/22 11/11/21 Rx oral suspension (Milk of Magnesia) constipation #355 mL carvedilol 12.5 mg tablet See Rx Instructions PO BID 05/01/22 06/25/22 1 Day Ago History ~06/24/22 apixaban 5 mg tablet (Eliquis) 5 mg PO BID #180 tabs 05/03/22 06/25/22 1 Day Ago Rx ~06/24/22 amlodipine 2.5 mg tablet 2.5 mg PO DAILY 06/25/22 06/25/22 1 Day Ago History ~06/24/22 Allergies Allergy/AdvReac Type Severity Reaction Status Date / Time Latex, Natural Rubber Allergy ALGY-Rash Verified 05/01/22 15:08 olanzapine [From Zyprexa] Allergy hallucinati Verified 05/01/22 15:08 ons/agitate d lorazepam [From Ativan] AdvReac hallucination, Verified 05/01/22 15:08 agitated Current Medications Generic Name Dose Route Start Last Admin Trade Name Freq PRN Reason Stop Dose Admin Enoxaparin Sodium 70 mg 06/25/22 12:00 06/25/22 14:35 Enoxaparin 80 Mg/0.8 Ml Syringe SUBCUT 70 mg Q12H ROCIO Administration Sodium Chloride 1,000 mls @ 75 mls/hr 06/25/22 03:00 06/25/22 03:52 Sodium Chloride 0.9% IV 75 mls/hr .[id number] ROCIO Administration Morphine Sulfate 2 mg 06/25/22 02:46 06/25/22 07:13 Morphine 4 Mg/Ml Sdv 1 Ml IVP 2 mg Q4H PRN Administration SEVERE PAIN Ondansetron HCl 4 mg 06/25/22 02:46 06/25/22 09:15 Ondansetron 2 Mg/Ml Sdv 2 Ml IVP 4 mg Q8H PRN Administration vomiting, or N/V if npo PFSH Acute PFSH: Medical History Atrial fibrillation Chronic nausea Colonic diverticular abscess Congestive heart failure Coronary disease Discitis, unspecified, lumbar region DM II (diabetes mellitus, type II), controlled GUILLAUME (generalized anxiety disorder) GERD (gastroesophageal reflux disease) Gout Hypertension Lumbar stenosis with neurogenic claudication Migraine MRSA bacteremia Myopericarditis Necrotizing fasciitis Non-ST elevation MA (NSTEMI) Osteoarthritis Pain of both breasts Pericarditis Scleroderma Small bowel obstruction Surgical History H/O colectomy H/O hernia repair History of delivery History of cholecystectomy History of neck surgery S/P dilatation of esophageal stricture S/P AHN-BSO Family History Mother Congestive heart failure Social History Smoking and tobacco status: former smoker Alcohol intake: never Lives independently: No Household members: spouse Marital status: Vitals/I&O/Wt Last Vital Signs Temp 97.8 F 06/25/22 11:59 Pulse 64 06/25/22 11:59 Resp 18 06/25/22 11:59 BP 122/70 06/25/22 11:59 Pulse Ox 98 06/25/22 11:59 O2 Del Method Room Air 06/25/22 11:59 06/25/22 06/25/22 06/25/22 06:59 14:59 22:59 Intake Total 1000 / 1000 Output Total 700 / 700 Balance 300 / 300 Weight last 48 hrs Weight 143 lb 11.2 oz Weight 141 lb Physical Exam Narrative: General : Patient is well developed , no acute distress, oriented x3 Head : Normal cephalic, a-traumatic. Ears : Pinnae and external canal are normal. Hearing is normal. Eyes : PERRLA, Sclera and injection are normal. No conjunctival discharge. Nose : Mucous membranes are without erythema. Throat : buccal mucosa is normal, gums are without significant recession or hypertrophy. Lungs : Equal chest rise bilaterally, no use of accessory muscles, trachea is midline. Cor : Rate and rhythm are normal. Abdomen : Soft, ND, left lower quadrant tenderness, no g/r/m Extremities : No edema, no cyanosis or clubbing, dorsalis pedis pulses are present bilaterally, non-tender to palpation of calves. Upper extremities are normal bilaterally. Back : non-tender to palpation, no CVA tenderness. Neuro : CN II - XII intact, Upper and lower extremities have equal and full strength Data 06/24/22 22:25 06/24/22 22:25 A&P Assessment and plan (1) Small bowel obstruction: Plan Conservative management for now with NGT to LIWS and IV fluids If she does not open up in the next few days, we will have to consider diagnostic laparoscopy versus exploratory laparotomy Medical management per hospitalist Coding Level of Care Code Acute Code for Chg Fwd Diagnoses Small bowel obstruction K56.609
[2022-06-25] MEDS: carvedilol 6.25 mg Tablet PO (17:20)
--- NOTE | 2022-06-25 22:55 | ECG_ITS ---
[facility] Test Date: 2022-06-25 Pat Name: Anju Duffy Department: Room: 259 Gender: Female Disaster Director: : 1945 Requested By: Gage Sewell Order Number: [id number] Lindsay MD: Ayush Johnson M.D. Measurements Intervals [place] Rate: 76 P: 21 DC: 180 QRS: 59 QRSD: 86 T: 50 QT: 415 QTc: 467 Interpretive Statements SINUS RHYTHM Compared to ECG 11/10/2021 12:20:30 Myocardial infarct finding no longer present Electronically Signed On 06-26-2022 14:49:48 CDT by Ayush Johnson M.D. [id number]
[2022-06-26] VITALS (12 sets, daily range): BP systolic 131–169; BP diastolic 71–93; PULSE 60–83; RESP 14–20; TEMP 36.6–37.2; O2SAT 94–98
[2022-06-26] MEDS: enoxaparin 80 mg/0.8 mL Syringe 70 MG SUBCUT ×3 (00:50→23:05)
[2022-06-26] MEDS: morphine 4 mg/mL SDV 1 mL 2 MG IVP (01:26)
[2022-06-26 05:58] LABS: Basophils % 0.3 %; Eosinophils # 0.2 10^3/uL (0.0-0.8); Eosinophils % 1.7 %; Hematocrit 44.6 % (37.0-47.0); Hemoglobin 14.6 g/dL (11.5-15.3); Lymphocytes # 2.5 10^3/uL (0.8-4.8); Lymphocytes % 27.8 %; Mean Corpuscular HGB Conc 32.7 g/dL (30.0-36.0); Mean Corpuscular Volume 91.8 fl (81-99); Mean Platelet Volume 10.8 fL (7.4-10.4); Monocytes # 0.8 10^3/uL (0.2-0.9); Monocytes % 9.3 %; Neutrophils # 5.43 10^3/uL (1.8-7.7); Neutrophils % 60.7 %; Nucleated Red Blood Cells % 0 %; Platelet Count 167 10^3/cmm (130-400); Red Blood Count 4.86 10^6/uL (4.1-5.3); Red Cell Distribution Width 12.3 % (12.1-15.1)
[2022-06-26] MEDS: HYDROmorphone 1 mg/mL INJ 1 mL 0.5 MG IVP (06:07)
[2022-06-26 06:13] LABS: Anion Gap 14.5 (5-19); Blood Urea Nitrogen 11 mg/dL (8-23); Calcium 8.6 mg/dL (8.5-10.5); Carbon Dioxide 24 mmol/L (22-29); Chloride 104 mmol/L (98-107); Creatinine Clr Calc Pharmacy 53.8423; Glucose 88 mg/dL (65-115); Magnesium 1.9 mg/dL (1.7-2.3); Osmolality Calculated 287 mOsm/kg (285-295); Potassium 3.5 mmol/L (3.5-5.1); Sodium 139 mmol/L (136-145)
[2022-06-26] MEDS: carvedilol 12.5 mg Tablet PO (08:58)
[2022-06-26] MEDS: SUMAtriptan 25 mg Tablet 50 MG PO (08:58)
[2022-06-26] MEDS: sodium chloride 0.9% 1,000 ML 75 ML IV ×2 (08:58→21:57)
[2022-06-26] MEDS: phenol oral Spray 177 mL 3 SPRAY MUCOUS MEM (11:48)
--- NOTE | 2022-06-26 13:06 | P.PN_ITS ---
Subjective Subjective: Patient reports she feels better. Abdominal discomfort much less. Little bit on the left where bruises from Lovenox. No vomiting. Reports she had some soft bowel movement yesterday. She denies passing any air overnight. Medications: Reviewed: Yes Vitals/I&O/Wt Last Vital Signs Temp 98.5 F 06/26/22 08:00 Pulse 75 06/26/22 08:00 Resp 17 06/26/22 08:00 BP 167/74 06/26/22 08:00 Pulse Ox 95 06/26/22 08:00 O2 Del Method Room Air 06/26/22 04:19 06/25/22 06/26/22 06/26/22 22:59 06:59 14:59 Intake Total 1020 / 1020 999 / 2019 Balance 1020 / 1020 999 / 2019 Weight last 48 hrs Weight 65.181 kg Weight 63.957 kg Physical Exam Narrative: General exam is no distress Neck is supple Cardiovascular regular rate and rhythm without murmur Lungs clear Abdomen is soft, hypoactive bowel sounds, slight generalized tenderness Extremities no cyanosis clubbing or edema Skin without rash Data 06/26/22 05:34 06/26/22 05:34 Micro: Microbiology 06/24/22 21:59 Urine Culture - Final Urine,Clean Catch A&P Assessment and plan (1) Small bowel obstruction: Patient presents with vomiting and abdominal pain consistent with partial small bowel obstruction. CT suggested this as well although no definite transition point was noted. Pneumobilia was seen within the left hepatic lobe and common bile duct, similar to that. Surgery consultation appreciated Dulcolax suppository Continue NG to low intermittent suction Continue hydration Discussed with nursing to have her up in the chair, ambulating Morphine as needed for pain. Will defer to surgery whether NG could be clamped today. Repeat CBC and BMP tomorrow. At this point no evidence of infection, and no need for antibiotics. (2) Atrial fibrillation: Patient with history of atrial fibrillation Continue carvedilol Hold apixaban in case surgical procedure is needed. Changed to Lovenox. Qualifiers: Atrial fibrillation type: paroxysmal Qualified Code(s): I48.0 - Paroxysmal atrial fibrillation (3) DM II (diabetes mellitus, type II), controlled: Sliding scale insulin Qualifiers: Diabetes mellitus retirement insulin use: without technician terminal and repeater use Diabetes mellitus complication status: without complication Qualified Code(s): E11.9 - Type 2 diabetes mellitus without complications (4) Dehydration: Continue hydration. Check BMP daily on saline (5) Congestive heart failure: No evidence of heart failure currently. Appears compensated. Last echo demonstrates preserved EF. Nuclear stress test in March essentially normal. Plan Other medical problems as noted in past medical history Lovenox for DVT prophylaxis Attestations Medical Necessity Statement*: Needs continued hospitalization for conservative management of bowel obstruction which has not yet resolved. Coding Level of Care Code 94108 Moderate MDM includes number and complexity of problems actively addressed during encounter and amount and/or complexity of data reviewed/ordered as docume nted Diagnoses Small bowel obstruction K56.609 Atrial fibrillation I48.0 Atrial fibrillation type: paroxysmal DM II (diabetes mellitus, type II), controlled E11.9 Diabetes mellitus retirement insulin use: without technician terminal and repeater use Diabetes mellitus complication status: without complication Dehydration E86.0 Congestive heart failure I50.9 Time Spent (min) 21
[2022-06-26] MEDS: carvedilol 6.25 mg Tablet PO (17:43)
--- NOTE | 2022-06-26 17:57 | PM.PN ---
Subjective Subjective: She told the nurse earlier today that she was passing flatus, but the patient does not remember any more. She denies any nausea or vomiting but still has significant left lower quadrant abdominal pain Vitals/I&O/Wt Last Vital Signs Temp 97.8 F 06/26/22 16:00 Pulse 74 06/26/22 16:00 Resp 14 06/26/22 16:00 BP 146/74 06/26/22 16:00 Pulse Ox 95 06/26/22 16:00 O2 Del Method Room Air 06/26/22 04:19 06/26/22 06/26/22 06/26/22 06:59 14:59 22:59 Intake Total 999 Balance 999 Weight last 48 hrs Weight 143 lb 11.2 oz Weight 141 lb Physical Exam Narrative: General: No acute distress Abdomen: Soft, mild left-sided distention, tender to palpation left lower quadrant, no guarding rebound or masses Data 06/26/22 05:34 06/26/22 05:34 Micro: Microbiology 06/24/22 21:59 Urine Culture - Final Urine,Clean Catch A&P Assessment and plan (1) Small bowel obstruction: Plan Conservative management for now with NGT to LIWS and IV fluids She may have sips of clears while on suction until there is more definitive flatus or bowel movement If she does not open up in the next few days, we will have to consider diagnostic laparoscopy versus exploratory laparotomy Medical management per hospitalist Attestations Medical Necessity Statement*: Per primary Coding Level of Care Code Acute Code for Chg Fwd Diagnoses Small bowel obstruction K56.609
[2022-06-26] MEDS: acetaminophen 325 mg Tablet 650 MG PO (23:05)
[2022-06-27 03:48] VITALS: BP 153/85; PULSE 57; RESP 20; TEMP 36.4; O2SAT 93
[2022-06-27 05:51] LABS: Basophils % 0.4 %; Eosinophils # 0.2 10^3/uL (0.0-0.8); Eosinophils % 2.8 %; Hematocrit 41.2 % (37.0-47.0); Hemoglobin 12.9 g/dL (11.5-15.3); Lymphocytes # 2.3 10^3/uL (0.8-4.8); Lymphocytes % 34.4 %; Mean Corpuscular HGB Conc 31.3 g/dL (30.0-36.0); Mean Corpuscular Hemoglobin 30.3 pg (28.0-34.0); Mean Corpuscular Volume 96.7 fl (81-99); Mean Platelet Volume 10.6 fL (7.4-10.4); Monocytes # 0.7 10^3/uL (0.2-0.9); Monocytes % 10.5 %; Neutrophils # 3.49 10^3/uL (1.8-7.7); Neutrophils % 51.6 %; Nucleated Red Blood Cells % 0 %; Platelet Count 143 10^3/cmm (130-400); Red Blood Count 4.26 10^6/uL (4.1-5.3); Red Cell Distribution Width 12.1 % (12.1-15.1); White Blood Count 6.8 10^3/uL (4.0-10.0)
[2022-06-27 06:00] VITALS: PULSE 59
[2022-06-27 06:20] LABS: Albumin Level 3.2 g/dL (3.5-5.2); Alkaline Phosphatase 54 U/L (35-105); Blood Urea Nitrogen 10 mg/dL (8-23); Calcium 8.1 mg/dL (8.5-10.5); Carbon Dioxide 20 mmol/L (22-29); Chloride 106 mmol/L (98-107); Globulin 2.1 g/dL (1.3-4.6); Glucose 79 mg/dL (65-115); Magnesium 1.8 mg/dL (1.7-2.3); Osmolality Calculated 286 mOsm/kg (285-295); Sodium 139 mmol/L (136-145); Total Bilirubin 1.6 mg/dL (0.15-1.2); Total Protein 5.3 g/dL (6.6-8.7)
[2022-06-27 06:23] LABS: Creatinine Clr Calc Pharmacy 53.8423
[2022-06-27 06:25] LABS: Alanine Aminotransferase 15 U/L (0-33); Anion Gap 16.7 (5-19); Aspartate Amino Transferase 22 U/L (0-32); Potassium 3.7 mmol/L (3.5-5.1)
[2022-06-27 07:33] VITALS: BP 135/57; PULSE 63; RESP 16; TEMP 36.6; O2SAT 93
[2022-06-27] MEDS: carvedilol 12.5 mg Tablet PO (08:27)
[2022-06-27 11:26] VITALS: BP 121/68; PULSE 65; RESP 12; TEMP 36.8; O2SAT 96
[2022-06-27] MEDS: sodium chloride 0.9% 1,000 ML 75 ML IV (11:43)
[2022-06-27] MEDS: enoxaparin 80 mg/0.8 mL Syringe 70 MG SUBCUT (11:43)
[2022-06-27 15:15] VITALS: BP 121/60; PULSE 65; RESP 12; TEMP 36.6; O2SAT 97
--- NOTE | 2022-06-27 15:20 | P.DS_ITS ---
Discharge Providers Date of Admission: 06/25/22 02:01 Date of Discharge: June 27, 2022 Attending Provider at Admission: Ela Mckeon MD Attending Provider at Discharge: Neto Moran MD Primary Care Provider: Baldomero Britt MD Diagnoses at Discharge Discharge Diagnosis (1) Small bowel obstruction: Status: Acute Reason for Visit Reason for Visit: abdomen pain Hospital Course Hospital Course Patient presented to the hospital with vomiting and abdominal pain. CT scan demonstrated partial small bowel obstruction, which the patient had had in the past. There was no definite transition point. She has had multiple surgeries in the past, history of bowel injury with persistent bowel leak. An NG was placed for decompression. Low intermittent suction was used until patient was starting to have flatus. NG was then removed and she was started on clear liquid diet that was advanced to full liquid diet tolerated before discharge. Surgery help to manage the partial small bowel obstruction. At discharge the patient was tolerating diet well without any significant abdominal discomfort. Her and her were given the opportunity to ask questions, and agreed with the plan. She will follow-up with her primary care provider within the next 5 to 6 days. She is interested in resuming MiraLAX which may have worked better in the past to prevent obstipation. She will also touch base with her surgeon at [facility] who she has seen in the past for complicated abdominal issues/surgeries and recurrent partial small bowel obstructions. Physical Exam Narrative: General exam is no distress Neck is supple Cardiovascular regular rate and rhythm, no murmur Lungs clear Abdomen is soft, nontender. Bowel sounds noted Extremities no cyanosis clubbing edema Discharge Data Studies Completed and Pending Completed Studies During Hospitalization Category Date Time Status CT abdomen pelvis w con* [id number] Stat Cat Scan 06/24/22 21:52 Completed CXRP [XR chest 1V portable [id number]] Stat Exams 06/24/22 22:59 Completed Radiology Impressions Abdomen/Pelvis CT 06/24/22 21:52 IMPRESSION: 1. Status post left hemicolectomy. Anastomoses are seen in the proximally and at the rectal anastomosis. There is dilatation of small bowel seen in the lower abdomen and pelvis suggesting a partial small bowel obstruction. This appears less prominent today compared with 11/13/2019 2 hours. Again, no definite transition is identified. 2. Stable bilateral renal cysts, the largest seen left measuring 9 mm. No further workup needed. 3. Prominent common bile duct. There is pneumobilia again seen within the left hepatic lobe and common bile duct similar to that present on 11/12/2021. Chest X-Ray 06/24/22 22:59 IMPRESSION: 1. Nasogastric tube tip in proximal stomach with the proximal side port at the gastroesophageal junction. 2. Background centrilobular emphysema, pulmonary fibrosis and bronchiectasis. Laboratory Results WBC 6.8 10^3/uL (4.0-10.0) 06/27/22 05:23 RBC 4.26 10^6/uL (4.1-5.3) 06/27/22 05:23 Hgb 12.9 g/dL (11.5-15.3) 06/27/22 05:23 Hct 41.2 % (37.0-47.0) 06/27/22 05: MCV 96.7 fl (81-99) D 06/27/22 05:23 MCH 30.3 pg (28.0-34.0) 06/27/22 05: MCHC 31.3 g/dL (30.0-36.0) 06/27/22 05:23 RDW 12.1 % (12.1-15.1) 06/27/22 05:23 Plt Count 143 10^3/cmm (130-400) 06/27/22 05:23 MPV 10.6 fL (7.4-10.4) H 06/27/22 05:23 Neut % (Auto) 51.6 % 06/27/22 05:23 Lymph % (Auto) 34.4 % 06/27/22 05:23 [place] % (Auto) 10.5 % 06/27/22 05:23 Eos % (Auto) 2.8 % 06/27/22 05:23 Baso % (Auto) 0.4 % 06/27/22 05:23 Neut # (Auto) 3.49 10^3/uL (1.8-7.7) 06/27/22 05:23 Lymph # (Auto) 2.3 10^3/uL (0.8-4.8) 06/27/22 05:23 [place]eves # (Auto) 0.7 10^3/uL (0.2-0.9) 06/27/22 05:23 Eos # (Auto) 0.2 10^3/uL (0.0-0.8) 06/27/22 05:23 Baso # (Auto) 0.0 10^3/uL (0.0-0.1) 06/27/22 05:23 Nucleated RBC % (auto) 0 % 06/27/22 05:23 Nucleated RBCs # 0.0 /100WBC 06/27/22 05:23 PT 15.50 SECONDS (12.1-14.9) H 06/24/22 22:25 INR 1.19 (0.8-1.2) 06/24/22 22:25 APTT 36.6 SECONDS (23.9-36.7) 06/24/22 22:25 Sodium 139 mmol/L (136-145) 06/27/22 05:23 Potassium 3.7 mmol/L (3.5-5.1) 06/27/22 05:23 Chloride 106 mmol/L (98-107) 06/27/22 05:23 Carbon Dioxide 20 mmol/L (22-29) L 06/27/22 05:23 Anion Gap 16.7 (5-19) 06/27/22 05:23 BUN 10 mg/dL (8-23) 06/27/22 05:23 Creatinine 0.3 mg/dL (0.5-0.9) L 06/27/22 05:23 GFR Calculation Not Reportable 06/27/22 05:23 Glucose 79 mg/dL (65-115) 06/27/22 05:23 Calculated Osmolality 286 mOsm/kg (285-295) 06/27/22 05:23 Lactate 1.0 mmol/L (0.5-2.2) 06/25/22 06:05 Calcium 8.1 mg/dL (8.5-10.5) L 06/27/22 05:23 Magnesium 1.8 mg/dL (1.7-2.3) 06/27/22 05:23 Total Bilirubin 1.6 mg/dL (0.15-1.2) H 06/27/22 05:23 AST 22 U/L (0-32) 06/27/22 05:23 ALT 15 U/L (0-33) 06/27/22 05:23 Alkaline Phosphatase 54 U/L (35-105) 06/27/22 05:23 C-Reactive Protein 3.0 mg/L (0.0-4.9) 06/24/22 22:25 Total Protein 5.3 g/dL (6.6-8.7) L 06/27/22 05:23 Albumin 3.2 g/dL (3.5-5.2) L 06/27/22 05:23 Globulin 2.1 g/dL (1.3-4.6) 06/27/22 05:23 Lipase 27 U/L (13-60) 06/24/22 22:25 Procalcitonin 0.04 ng/mL (0-0.5) 06/25/22 05:11 Urine Color Colorless (Yellow) 06/24/22 21:59 Urine Appearance Clear (CLEAR) 06/24/22 21:59 Urine pH 9 (5-7) H 06/24/22 21:59 Ur Specific [place] 1.015 (1.005-1.030) 06/24/22 21:59 Urine Protein Neg (Negative) 06/24/22 21:59 Urine Glucose (UA) Norm (Normal) 06/24/22 21:59 Urine Ketones 1+ (Negative) H 06/24/22 21:59 Urine Blood 2+ (Negative) H 06/24/22 21:59 Urine Nitrate Negative (Negative) 06/24/22 21:59 Urine Bilirubin Neg (Negative) 06/24/22 21:59 Prot Sulfosalicylic Acd Negative (Negative) 06/24/22 21:59 Urine Urobilinogen Norm mg/dL (Negative) 06/24/22 21:59 Ur Leukocyte Esterase Negative (Negative) 06/24/22 21:59 Urine RBC 25-40 /hpf (0-2) H 06/24/22 21:59 Urine WBC 0-4 /hpf (0-5) H 06/24/22 21:59 Ur Squamous Epith Cells 0-4 /hpf (0-5) H 06/24/22 21:59 Amorphous Sediment Not Reportable 06/24/22 21:59 Urine Bacteria Trace /hpf (NONE) 06/24/22 21:59 Vitals Last Vital Signs Temp 98 F 06/27/22 15:15 Pulse 65 06/27/22 15:15 Resp 12 06/27/22 15:15 BP 121/60 06/27/22 15:15 Pulse Ox 97 04/19/23 15:15 O2 Del Method Room Air 06/27/22 15:15 Discharge Plan Discharge Patient Disposition: Home Condition: Stable Prescriptions: New polyethylene glycol 3350 [Miralax] 17 gram/dose powder 4 g PO BID Qty: 238 0RF Continued carvedilol 12.5 mg tablet See Rx Instructions PO BID Rx Instructions: 12.5mg in AM, 6.25mg in the PM orally twice a day; Eliquis 5 mg tablet 5 mg PO BID Qty: 180 3RF ondansetron HCl 8 mg tablet 8 mg PO TID PRN (Reason: Nausea And Vomiting) Prevagen 1 cap PO DAILY buspirone 5 mg tablet 5 mg PO TID PRN (Reason: Anxiety) magnesium hydroxide [Milk of Magnesia] 400 mg/5 mL suspension 1,200 mg PO QID PRN (Reason: constipation) Qty: 355 0RF amlodipine 2.5 mg tablet 2.5 mg PO DAILY Discharge Orders: Discharge Order (Routine); Ordered 06/27/22 Ordered By: Neto Moran Referrals: Baldomero Britt MD [Primary Care Provider] - 07/05/22 9:00 am (Please fax a d/c summary when completed ) Discharge Diet: Full LIquid Discharge Activity: Increase activity as tolerated Patient Instructions: Opioid Safety Activity Restrictions/Additional Instructions: Take all medicine as prescribed Initiate MiraLAX twice daily Encourage fluids Full liquid diet on discharge, add foods slowly back as tolerated, pur?ed consistency initially. Low residue. Patient's Health Concerns: Vomiting Assessment: Partial small bowel obstruction Plan of Treatment: Treated conservatively with resolution Discharge Attestations Time Spent in Discharge Care*: greater than 30 min Status at Discharge: Cognitive status at discharge: cognitively intact , Behavioral status at discharge: cooperative , Quality Metrics Clinical Quality Measures [ No reported AMI, CVA or VTE this stay] Coding Level of Care Code 79323 Diagnoses Small bowel obstruction K56.609 Time Spent (min) 40
[2022-06-27 16:42] VITALS: BP 121/60; PULSE 65; RESP 12; TEMP 36.6; O2SAT 97
--- NOTE | 2022-06-27 17:40 | PM.PN ---
Subjective Subjective: Patient seen and examined. Tolerating clear liquid diets. She has had a bowel movement. Vitals/I&O/Wt Last Vital Signs Temp 98 F 06/27/22 16:42 Pulse 65 06/27/22 16:42 Resp 12 06/27/22 16:42 BP 121/60 06/27/22 16:42 Pulse Ox 97 06/27/22 16:42 O2 Del Method Room Air 06/27/22 15:15 06/27/22 06/27/22 06/27/22 06:59 14:59 22:59 Intake Total 100 / 1553.75 1000 / 1000 Output Total 200 / 750 Balance -100 / 803.75 1000 / 1000 Physical Exam Narrative: General: No acute distress Abdomen: Soft, mild left-sided distention, tender to palpation left lower quadrant, no guarding rebound or masses Data 06/27/22 05:23 06/27/22 05:23 A&P Assessment and plan (1) Small bowel obstruction: Plan Full liquid diet Surgically stable for discharge on full liquid diet Medical management per hospitalist Attestations Medical Necessity Statement*: Per primary Coding Level of Care Code Acute Code for Chg Fwd Diagnoses Small bowel obstruction K56.609
== END 2022-06-27 16:45 | disposition home or self-care (01) | DRG 389 ==
LOC: ER 06-25 01:57 → MEDSURG 06-25 02:01
PROVIDERS: Admitting Provider Internal Medicine; Emergency Provider Emergency Medicine; PCP Family Medicine; Visit Provider Internal Medicine
DX: K56.600 Partial intestinal obstruction, unspecified as to cause (principal); E46 Unspecified protein-calorie malnutrition; I50.32 Chronic diastolic (congestive) heart failure; Z79.01 Long term (current) use of anticoagulants; E86.0 Dehydration; I48.0 Paroxysmal atrial fibrillation; I11.0 Hypertensive heart disease with heart failure; Z68.26 Body mass index [BMI] 26.0-26.9, adult; E11.9 Type 2 diabetes mellitus without complications; Z90.49 Acquired absence of other specified parts of digestive tract; I25.10 Atherosclerotic heart disease of native coronary artery without angina pectoris; F41.1 Generalized anxiety disorder; K21.9 Gastro-esophageal reflux disease without esophagitis; M10.9 Gout, unspecified; Z86.14 Personal history of Methicillin resistant Staphylococcus aureus infection; I25.2 Old myocardial infarction; Z87.891 Personal history of nicotine dependence
CPT/HCPCS: 36415; 71045; 74177; 80048; 80053; 81001; 83605; 83690; 83735; 84145; 85025; 85610; 85730; 86140; 87086; 93005; 96361; 96372; 96374; 96375; 96376; 97110; 97161; 99285; J1170; J1650; J2270; J2405; J7030; Q9967

== ENCOUNTER 2022-07-13 20:25 | Emergency (ER) | payer MEDICARE, OTHER, SELFPAY ==
[2022-07-13 20:35] VITALS: BP 226/118; PULSE 102; RESP 26; TEMP 36.3; O2SAT 100; BMI 25.6
--- NOTE | 2022-07-13 21:09 | XRR_ITS ---
PROCEDURE INFORMATION: Exam: XR Abdomen Exam date and time: 07/13/2022 10:08 PM Age: 77 years old Clinical indication: Abdominal pain; Generalized; Additional info: Epigastric pain, reports HX of sbo and feels its the same TECHNIQUE: Imaging protocol: Radiologic exam of the abdomen. Views: Frontal supine view of the abdomen. 1 View. COMPARISON: CT abdomen pelvis w con* [id number] 06/24/2022 11:24 PM FINDINGS: Lungs: The lung bases are clear. Gastrointestinal tract: Scattered stool in the proximal and transverse colon. No small bowel dilatation or obstruction. Intraperitoneal space: Clips in the abdomen. Mesh anchors in the central abdomen. No visible pneumoperitoneum. Bones/joints: Curvature and degenerative changes of the spine. XR/XR KUB [id number] IMPRESSION: Nonspecific nonobstructive bowel gas pattern.
[2022-07-13 22:36] VITALS: BP 173/88; PULSE 84; RESP 16; O2SAT 100
[2022-07-13] MEDS: HYDROmorphone 1 mg/mL INJ 1 mL IVP (23:50)
--- NOTE | 2022-07-13 23:50 | PC.NURSE ---
Several attempts made to start peripheral I.V. on patient . Pt. jumps and screams when trying to start I.V. Pt. set up and states that she needs to stand up or vomit when I.V. catheter in arm, causing all prepared materials to fall into the floor. 22ga. I.v. started in hand , in order to give pain medication and nausea medication.
[2022-07-13] MEDS: sodium chloride 0.9% 500 ML IV (23:51)
[2022-07-13 23:58] VITALS: BP 204/110; PULSE 80; RESP 16; O2SAT 100
[2022-07-14] VITALS: BP 191/105; PULSE 89; RESP 16; O2SAT 96
--- NOTE | 2022-07-14 00:09 | ED_ITS ---
HPI - Abdominal Pain General: Chief Complaint: Abdominal Pain Stated Complaint: abd pain Time Seen by Provider: 07/13/22 22:19 Source: patient Mode of arrival: ambulatory Limitations: no limitations History of Present Illness: Patient presents emergency department today for evaluation treatment of cont inued abdominal pain. Patient has been seen multiple times for abdominal pains with the most recent being just a couple weeks ago. Patient was seen 1 week ago and diagnosed with a small bowel obstruction for which she was inpatient for several days. Patient states that she never stopped having pain-even from her discharge though she had some mild improvement. She states last day or so it is gotten severely worse and continues to hurt in the same 3 areas-her left mid abdomen, epigastric region, and right mid abdomen. She indicates the left side hurts worse than the right. Patient has been incredibly nauseated but has not been able to vomit. She has been attempting to make herself vomit by placing her fingers in her posterior pharynx. Patient began vomiting this evening while in the waiting room and continues to vomit in her exam room. Patient denies any fevers. Patient has a history of multiple abdominal surgeries and adhesions resulting in small bowel obstruction. Patient has had colon resection due to this. Review of Systems General: Reports: 10 or more systems reviewed and unremarkable except in HPI and below PFSH ED PFSH: Medical History Atrial fibrillation Chronic nausea Colonic diverticular abscess Congestive heart failure Coronary disease Discitis, unspecified, lumbar region DM II (diabetes mellitus, type II), controlled GUILLAUME (generalized anxiety disorder) GERD (gastroesophageal reflux disease) Gout Hypertension Lumbar stenosis with neurogenic claudication Migraine MRSA bacteremia Myopericarditis Necrotizing fasciitis Non-ST elevation AR (NSTEMI) Osteoarthritis Pain of both breasts Pericarditis Scleroderma Small bowel obstruction Surgical History H/O colectomy H/O hernia repair History of delivery History of cholecystectomy History of neck surgery S/P dilatation of esophageal stricture S/P ANH-BSO Family History Mother Congestive heart failure Social History Smoking and tobacco status: former smoker Alcohol intake: never Substance/Drug Use: never Lives independently: No Household members: spouse Marital status: Physical Exam Const: COMMON NORMALS: no acute distress, patient oriented x3 and alert HENMT: COMMON NORMALS: normocephalic, atraumatic, hearing grossly normal bilaterally and moist oral mucous membranes HEAD & SCALP: normocephalic and atraumatic Eye: COMMON NORMALS: Equal, round and reactive pupils present, EOMs intact bilaterally and conjunctivae normal CONJUNCTIVA: Yes conjunctivae normal PUPIL: Yes Equal, round and reactive pupils present Neck/C-Spine: COMMON NORMALS: full ROM and no JVD Lymph: LYMPHATIC: no lymphadenopathy noted Resp: COMMON NORMALS: normal respiratory effort, No retractions, No use of accessory muscles and clear to auscultation bilaterally AUSCULTATION: clear to auscultation bilaterally Cardio: COMMON NORMALS: no JVD, regular rate and regular rhythm RATE: regular rate RHYTHM: regular rhythm GI: OTHER: Bowel sounds are extremely difficult to hear as patient is literally pushing my hands away from her abdomen while trying to auscultate. Patient has large scarring over the abdomen and still has bruising on her abdomen from what appears to be Lovenox injections. Patient cannot tolerate palpation on her abdomen, but, when I am able to palpate feels soft. : COMMON NORMALS: Yes no CVA tenderness BLADDER/KIDNEY EXAM: Yes no CVA tenderness Back/Pelvis: COMMON NORMALS: no CVA tenderness, no thoracic nor lumbar tenderness and thoraco-lumbar ROM normal Extremity: COMMON NORMALS: normal to inspection, full ROM and capillary refill normal Neuro: COMMON NORMALS: patient oriented x3 SENSORIUM/ORIENTATION: Yes alert Psych: COMMON NORMALS: mental status grossly normal, Normal thought process present, cooperative, normal affect and activity/motor behavior normal THOUGHT PROCESS: Normal thought process present Skin: COMMON NORMALS: no rashes or lesions noted and no wounds GENERAL SKIN EXAM: no rashes or lesions noted Course Vital Signs: Vital signs: Vital Signs Temperature 97.4 F L 07/13/22 20:35 Pulse Rate 89 07/14/22 00:00 Respiratory Rate 16 07/14/22 00:00 Blood Pressure 191/105 07/14/22 00:00 Pulse Oximetry 96 07/14/22 00:00 Oxygen Delivery Me thod Room Air 07/13/22 22:36 MDM - Abdominal Pain Medical Decision Making Patient presented to the emergency department for recurrent chronic abdominal pain. Patient does have a history of small bowel obstruction and was recently hospitalized for such. Patient had abdominal pain and vomiting here in the ER. However, patient seemed to have significant improvement after receiving Dilaudid. In fact, patient was requesting to go home. However, explained to the patient that we had not performed an examination to fully evaluate the potential of a return for small bowel obstruction and is not recommended that she go home given the significance of a positive finding for small bowel obstruction. Patient still wanted to leave and an AMA form was provided to her. Patient states that she cannot have an AMA because her insurance will not pay for her evaluation. Explained to her I am not sure the financial end of her insurance but, medically no that she did not have a complete evaluation through the ER. Patient states that she has no pain. I requested she do a p.o. faisal llenge and would be more comfortable discharging her if she was able to tolerate fluids without vomiting. However, patient did not want to try p.o. challenge because she was afraid it would make her stomach hurt again. Patient asked to stay in the emergency room for 12 to 24 hours so she could call and talk to her about their insurance policy (he is currently out of town). Explained her that we are not able to board patients in the emergency department for such reasons and after speaking with Dr. Messina, patient's option was to proceed on with evaluation, attempted p.o. challenge for discharge, or to leave AMA. Patient finally requested to have something p.o. and tolerated both ice chips and water without vomiting. Patient was discharged home with pain resolved and tolerating p.o. intake. Return precautions given-especially with her recent history. Differential Diagnosis Likely abdominal pain, constipation, diverticulitis, gastroenteritis and small bowel obstruction Lab Data 07/13/22 23:49 07/13/22 23:49 Labs/Radiology: Radiology Impressions KUB X-Ray 07/13/22 21:09 IMPRESSION: Nonspecific nonobstructive bowel gas pattern. Laboratory Results WBC 18.1 10^3/uL (4.0-10.0) H 07/13/22 23:49 RBC 6.35 10^6/uL (4.1-5.3) H 07/13/22 23:49 Hgb 18.9 g/dL (11.5-15.3) H 07/13/22 23:49 Hct 56.8 % (37.0-47.0) H 07/13/22 23:49 MCV 89.4 fl (81-99) 07/13/22 23:49 MCH 29.8 pg (28.0-34.0) 07/13/22 23:49 MCHC 33.3 g/dL (30.0-36.0) 07/13/22 23:49 RDW 12.2 % (12.1-15.1) 07/13/22 23:49 Plt Count 308 10^3/cmm (130-400) 07/13/22 23: MPV 10.7 fL (7.4-10.4) H 07/13/22 23:49 Neut % (Auto) 67.6 % 07/13/22 23:49 Lymph % (Auto) 20.0 % 07/13/22 23:49 [place] % (Auto) 9.2 % 07/13/22 23:49 Eos % (Auto) 1.3 % 07/13/22 23:49 Baso % (Auto) 0.6 % 07/13/22 23:49 Neut # (Auto) 12.28 10^3/uL (1.8-7.7) H 07/13/22 23:49 Lymph # (Auto) 3.6 10^3/uL (0.8-4.8) 07/13/22 23:49 [place] # (Auto) 1.7 10^3/uL (0.2-0.9) H 07/13/22 23:49 Eos # (Auto) 0.2 10^3/uL (0.0-0.8) 07/13/22 23:49 Baso # (Auto) 0.1 10^3/uL (0.0-0.1) 07/13/22 23:49 Nucleated RBC % (auto) 0 % 07/13/22 23: Nucleated RBCs # 0.0 /100WBC 07/13/22 23:49 Sodium 139 mmol/L (136-145) 07/13/22 23:49 Potassium 4.1 mmol/L (3.5-5.1) 07/13/22 23:49 Chloride 100 mmol/L (98-107) 07/13/22 23:49 Carbon Dioxide 21 mmol/L (22-29) L 07/13/22 23:49 Anion Gap 22.1 (5-19) H 07/13/22 23:49 BUN 13 mg/dL (8-23) 07/13/22 23:49 Creatinine 0.7 mg/dL (0.5-0.9) 07/13/22 23:49 GFR Calculation Not Reportable 07/13/22 23:49 Glucose 157 mg/dL (65-115) H 07/13/22 23:49 Calculated Osmolality 291 mOsm/kg (285-295) 07/13/22 23:49 Calcium 10.2 mg/dL (8.5-10.5) 07/13/22 23:49 Total Bilirubin 1.4 mg/dL (0.15-1.2) H 07/13/22 23:49 AST 34 U/L (0-32) H 07/13/22 23:49 ALT 20 U/L (0-33) 07/13/22 23:49 Alkaline Phosphatase 104 U/L (35-105) 07/13/22 23:49 Total Protein 7.4 g/dL (6.6-8.7) 07/13/22 23:49 Albumin 4.8 g/dL (3.5-5.2) 07/13/22 23:49 Globulin 2.6 g/dL (1.3-4.6) 07/13/22 23:49 Discharge Plan Discharge Patient Disposition: Home Clinical Impression: Abdominal pain, Vomiting, Hx SBO Condition: Stable Prescriptions: No Action Eliquis 5 mg tablet 5 mg PO BID Qty: 180 3RF carvedilol 6.25 mg tablet 6.25 mg PO .QPM Qty: 90 1RF carvedilol 12.5 mg tablet 12.5 mg PO QAM Qty: 90 1RF ondansetron HCl 8 mg tablet 8 mg PO TID PRN (Reason: Nausea And Vomiting) Prevagen 1 cap PO DAILY buspirone 5 mg tablet 5 mg PO TID PRN (Reason: Anxiety) magnesium hydroxide [Milk of Magnesia] 400 mg/5 mL suspension 1,200 mg PO QID PRN (Reason: constipation) Qty: 355 0RF amlodipine 2.5 mg tablet 2.5 mg PO DAILY Miralax 17 gram/dose powder 4 g PO BID Qty: 238 0RF Discharge Orders: Discharge ED (Routine); Ordered 07/14/22 Ordered By: Bessy Ortez Referrals: Baldomero Britt MD [Primary Care Provider] - Discharge Diet: As Directed Discharge Activity: Increase activity as tolerated Patient Instructions: Bowel Obstruction (ED), Opioid Safety, Pain Management Activity Restrictions/Additional Instructions: Given that your pain was able to be controlled here in the emergency department and you tolerated oral intake without any vomiting we are comfortable allowing you to discharge home. However, we recommend reevaluation through the emergency department for any acute worsening of your abdominal pain, continued vomiting, new onset of fever for concerns of return of your small bowel obstruction. Coding Level of Care Code ED L[employer] Generating Machine Tender for Tad Sanderson
[2022-07-14 00:31] LABS: Basophils # 0.1 10^3/uL (0.0-0.1); Basophils % 0.6 %; Eosinophils # 0.2 10^3/uL (0.0-0.8); Eosinophils % 1.3 %; Hematocrit 56.8 % (37.0-47.0); Hemoglobin 18.9 g/dL (11.5-15.3); Lymphocytes # 3.6 10^3/uL (0.8-4.8); Mean Corpuscular HGB Conc 33.3 g/dL (30.0-36.0); Mean Corpuscular Hemoglobin 29.8 pg (28.0-34.0); Mean Corpuscular Volume 89.4 fl (81-99); Mean Platelet Volume 10.7 fL (7.4-10.4); Monocytes # 1.7 10^3/uL (0.2-0.9); Monocytes % 9.2 %; Neutrophils # 12.28 10^3/uL (1.8-7.7); Neutrophils % 67.6 %; Nucleated Red Blood Cells % 0 %; Platelet Count 308 10^3/cmm (130-400); Red Blood Count 6.35 10^6/uL (4.1-5.3); Red Cell Distribution Width 12.2 % (12.1-15.1); White Blood Count 18.1 10^3/uL (4.0-10.0)
[2022-07-14 00:37] LABS: Alanine Aminotransferase 20 U/L (0-33); Albumin Level 4.8 g/dL (3.5-5.2); Alkaline Phosphatase 104 U/L (35-105); Aspartate Amino Transferase 34 U/L (0-32); Blood Urea Nitrogen 13 mg/dL (8-23); Calcium 10.2 mg/dL (8.5-10.5); Carbon Dioxide 21 mmol/L (22-29); Chloride 100 mmol/L (98-107); Globulin 2.6 g/dL (1.3-4.6); Glucose 157 mg/dL (65-115); Osmolality Calculated 291 mOsm/kg (285-295); Sodium 139 mmol/L (136-145); Total Bilirubin 1.4 mg/dL (0.15-1.2); Total Protein 7.4 g/dL (6.6-8.7)
[2022-07-14 00:43] LABS: Anion Gap 22.1 (5-19); Potassium 4.1 mmol/L (3.5-5.1)
[2022-07-14 02:35] VITALS: BP 191/105; PULSE 89; RESP 16; TEMP 36.3; O2SAT 96
== END 2022-07-14 02:36 | disposition home or self-care (01) ==
PROVIDERS: Emergency Provider Physician Assistant; PCP Family Medicine
DX: R10.9 Unspecified abdominal pain (principal); R11.11 Vomiting without nausea; Z79.01 Long term (current) use of anticoagulants; Z87.891 Personal history of nicotine dependence; I11.0 Hypertensive heart disease with heart failure; I50.9 Heart failure, unspecified; I25.10 Atherosclerotic heart disease of native coronary artery without angina pectoris; E11.9 Type 2 diabetes mellitus without complications; I25.2 Old myocardial infarction
CPT/HCPCS: 74018; 80053; 85025; 96374; 99285; J1170; J7040

== ENCOUNTER 2022-07-16 10:40 | Inpatient (IN) | payer MEDICARE, OTHER, SELFPAY ==
[2022-07-16] VITALS (8 sets, daily range): BP systolic 112–152; BP diastolic 50–76; PULSE 58–75; RESP 14–21; TEMP 36.7–37.3; O2SAT 92–100; BMI 25.2
[2022-07-16 11:58] LABS: Basophils # 0.1 10^3/uL (0.0-0.1); Basophils % 0.7 %; Eosinophils # 0.3 10^3/uL (0.0-0.8); Eosinophils % 2.7 %; Hematocrit 49.4 % (37.0-47.0); Hemoglobin 16.2 g/dL (11.5-15.3); Lymphocytes # 2.4 10^3/uL (0.8-4.8); Lymphocytes % 24.2 %; Mean Corpuscular HGB Conc 32.8 g/dL (30.0-36.0); Mean Corpuscular Hemoglobin 30.6 pg (28.0-34.0); Mean Corpuscular Volume 93.4 fl (81-99); Mean Platelet Volume 10.4 fL (7.4-10.4); Monocytes # 0.9 10^3/uL (0.2-0.9); Monocytes % 8.7 %; Neutrophils # 6.19 10^3/uL (1.8-7.7); Neutrophils % 63.2 %; Nucleated Red Blood Cells % 0 %; Platelet Count 225 10^3/cmm (130-400); Red Blood Count 5.29 10^6/uL (4.1-5.3); Red Cell Distribution Width 12.6 % (12.1-15.1); White Blood Count 9.8 10^3/uL (4.0-10.0)
[2022-07-16 12:19] LABS: Alanine Aminotransferase 20 U/L (0-33); Albumin Level 4.4 g/dL (3.5-5.2); Alkaline Phosphatase 82 U/L (35-105); Anion Gap 15.7 (5-19); Aspartate Amino Transferase 23 U/L (0-32); Blood Urea Nitrogen 15 mg/dL (8-23); Calcium 9.7 mg/dL (8.5-10.5); Carbon Dioxide 26 mmol/L (22-29); Chloride 100 mmol/L (98-107); Creatinine Clr Calc Pharmacy 52.8505; Globulin 2.6 g/dL (1.3-4.6); Glucose 96 mg/dL (65-115); Lactic Sepsis W/Reflex 1.5 mmol/L (0.5-2.2); Lipase 22 U/L (13-60); Osmolality Calculated 287 mOsm/kg (285-295); Potassium 3.7 mmol/L (3.5-5.1); Sodium 138 mmol/L (136-145); Total Bilirubin 1.2 mg/dL (0.15-1.2)
--- NOTE | 2022-07-16 13:00 | XRR_ITS ---
PROCEDURE INFORMATION: Exam: XR Abdomen Exam date and time: 07/16/2022 1:10 PM Age: 77 years old Clinical indication: Abdominal pain; Generalized; Prior surgery; Surgery date: 6+ months; Surgery type: Gb hernia appy colostomy; Additional info: Abd pain TECHNIQUE: Imaging protocol: Radiologic exam of the abdomen. Views: 2 Views. Upright and supine views. COMPARISON: CR (ABDOMEN, ) 07/13/2022 10:08 PM FINDINGS: Gastrointestinal tract: Normal. No bowel dilation. Intraperitoneal space: Normal. No free air. Bones/joints: Unremarkable for age. XR/XR acute abdomen series [id number] IMPRESSION: No acute findings.
--- NOTE | 2022-07-16 13:31 | CT_ITS ---
WS: [id number] CT ABDOMEN PELVIS TECHNIQUE: Noncontrast CT of the abdomen and pelvis with coronal and sagittal reformatted images. CLINICAL INFORMATION: Abdominal pain COMPARISON: None. DLP: 464.[address] scans at [facility] use at least one of these dose optimization techniques: automated e xposure control; mA and/or kV adjustment per patient size (includes targeted exams where dose is matc hed to clinical indication); or iterative reconstruction. FINDINGS: Dilated fluid-filled loops of small bowel in the lower abdomen and pelvis with air-fluid le vels. Largest small bowel loops measure up to 3.2 cm. Air-fluid level in the stomach. Postoperative c hanges rectosigmoid. No evidence of bowel anastomosis in the RIGHT lower quadrant. Findings suspiciou s for partial or developing small bowel obstruction. Persistent air within the colon. Mild fecal rete ntion in the transverse colon. No free air. Prior cholecystectomy. Lung bases are well aerated. Prior hysterectomy. Prior appendectomy. Pneumobil ia. This is present on the prior examination of July 13, 2020. Previously described biliary stent appe ars to have been removed. Adrenal glands are normal. No hydronephrosis in either kidney. Splenic granulomas. Noncontrast pancre as is normal. Moderate aortic calcification. Normal caliber abdominal aorta. Urine distended bladder. CT/CT abdomen pelvis wo con [id number] IMPRESSION: 1. Fluid-filled slightly dilated loops of small bowel in the lower abdomen and pelvis suspicious for partial or developing small bowel obstruction. 2. Distal ileal small bowel loops appear decompressed. Persistent air in the c olon which is relatively decompressed. 3. Prior postoperative changes involving the rectosigmoid. Evidence of bowel a nastomosis in the RIGHT lower quadrant. 4. Prior ventral abdominal wall mesh hernia repair. No recurrent hernia. 5. Air-fluid level in the stomach with mild to moderate distention. 6. Urine distended bladder. 7. Cholecystectomy with pneumobilia. Pneumobilia is present on the prior CT in 2020. 8. Prior appendectomy and hysterectomy. Notified Bhargav Mendoza DO at 07/16/2022 3:05 PM.
--- NOTE | 2022-07-16 13:41 | W.ED.ABDPA2 ---
HPI - Abdominal Pain General: Chief Complaint: Abdominal Pain Stated Complaint: abd pain Time Seen by Provider: 07/16/22 12:59 Source: patient Mode of arrival: ambulatory History of Present Illness: 77-year-old female presents to the emergency complaining of abdominal pain. Said multiple previous abdominal surgeries she is concerned she may have bowel obstruction. She has been nauseous that she has self-induced vomiting a couple times she not had any feculent vomitus. She has had normal bowel movements intermittently the last several days denies hematochezia melena hematemesis cough tenderness denies any dysuria urgency or frequency. Complains of exquisite abdominal discomfort at this time. No chest pain no shortness of breath MD elicited complaint: abdominal pain Onset (ago): day(s) Severity: moderate Quality: cramping Exacerbating factors: nothing Relieving factors: nothing Associated Symptoms: Denies anorexia, belching, bloating, change in bowel habits, change in stool character, chills, coffee ground emesis, constipation, GI cramping, diarrhea, dyspepsia, dysuria, excessive flatus, fever(s), heartburn, hematochezia, hematuria, hematemesis, fecal incontinence, loose stools, melena, nausea, poor appetite, syncope and vomiting Review of Systems Const: Denies: fever(s) or chills Card: Denies: syncope Resp: Denies: dyspnea, productive cough or non-productive cough GI: Denies: abdominal pain, nausea, vomiting, hematemesis, coffee ground emesis, heartburn, diarrhea, constipation, bloating, GI cramping, belching, excessive flatus, fecal incontinence, change in bowel habits, change in stool character, hematochezia or melena : Denies: dysuria, urinary frequency, urinary urgency or hematuria Skin/Breast: Denies: rash or pruritus PFS ED PFSH: Medical History Atrial fibrillation Chronic nausea Colonic diverticular abscess Congestive heart failure Coronary disease Discitis, unspecified, lumbar region DM II (diabetes mellitus, type II), controlled GUILLAUME (generalized anxiety disorder) GERD (gastroesophageal reflux disease) Gout Hypertension Lumbar stenosis with neurogenic claudication Migraine MRSA bacteremia Myopericarditis Necrotizing fasciitis Non-ST elevation [place] (NSTEMI) Osteoarthritis Pain of both breasts Pericarditis Scleroderma Small bowel obstruction Surgical History H/O colectomy H/O hernia repair History of delivery History of cholecystectomy History of neck surgery S/P dilatation of esophageal stricture S/P ANH-BSO Family History Mother Congestive heart failure Social History Smoking and tobacco status: former smoker Alcohol intake: never Substance/Drug Use: never Lives independently: No Household members: spouse Marital status: Physical Exam Const: GENERAL APPEARANCE: cooperative and comfortable ORIENTATION/CONSCIOUSNESS: Yes awake, Yes oriented to person, Yes oriented to place and Yes oriented to time HENMT: COMMON NORMALS: normocephalic, atraumatic and hearing grossly normal bilaterally HEAD & SCALP: normocephalic and atraumatic Resp: COMMON NORMALS: normal respiratory effort, No retractions, No use of accessory muscles and clear to auscultation bilaterally AUSCULTATION: clear to auscultation bilaterally Cardio: COMMON NORMALS: regular rate, regular rhythm and No murmurs present (Cardio) RATE: regular rate RHYTHM: regular rhythm GI: COMMON NORMALS: No hepatosplenomegaly present AUSCULTATION: Yes normoactive bowel sounds PALPATION: Yes Tenderness to palpation present (GI) (Diffuse tenderness), No Guarding due to palpation present (GI) and Yes No hepatosplenomegaly present Extremity: COMMON NORMALS: normal to inspection, capillary refill normal, no clubbing, cyanosis or edema, no calf tenderness and no pedal edema Neuro: SENSORIUM/ORIENTATION: Yes oriented to person, Yes oriented to place and Yes oriented to time Skin: COMMON NORMALS: no rashes or lesions noted GENERAL SKIN EXAM: no rashes or lesions noted Course Vital Signs: Vital signs: Vital Signs Temperature 98.1 F 07/17/22 04:15 Pulse Rate 68 07/17/22 04:15 Respiratory Rate 16 07/17/22 04:15 Blood Pressure 134/73 07/17/22 04:15 Pulse Oximetry 96 07/17/22 04:15 Oxygen Delivery Me thod Room Air 07/17/22 04:15 Oxygen Flow Rate 4 07/16/22 16:21 MDM - Abdominal Pain Medical Decision Making Abdomen disproportionately tender to exam. High-pitched bowel sounds are present. There is some tympany as well. CT shows partial bowel obstruction with early changes she has had almost identical presentation last month. Discussed Dr. Carbone. There is no evidence of free air perforation or infection at this time there is a questionable internal hernia with a transition point. We will admit start on NG to intermittent suction hold n.p.o. admit to hospitalist discussed with hospitalist as well as Dr. Carbone orders are written. Reviewed findings with the patient and family. Medical Records I reviewed the patient's medical records. Lab Data I reviewed the patient's lab results. 07/17/22 04:39 07/17/22 04:39 Labs/Radiology: Radiology Impressions Chest/Abdomen X-ray 07/16/22 13:00 IMPRESSION: No acute findings. Abdomen/Pelvis CT 07/16/22 13:31 IMPRESSION: 1. Fluid-filled slightly dilated loops of small bowel in the lower abdomen and pelvis suspicious for partial or developing small bowel obstruction. 2. Distal ileal small bowel loops appear decompressed. Persistent air in the colon which is relatively decompressed. 3. Prior postoperative changes involving the rectosigmoid. Evidence of bowel anastomosis in the RIGHT lower quadrant. 4. Prior ventral abdominal wall mesh hernia repair. No recurrent hernia. 5. Air-fluid level in the stomach with mild to moderate distention. 6. Urine distended bladder. 7. Cholecystectomy with pneumobilia. Pneumobilia is present on the prior CT in 2020. 8. Prior appendectomy and hysterectomy. Notified Bhargav Mendoza DO at 07/16/2022 3:05 PM. Chest X-Ray 07/16/22 18:17 IMPRESSION: Enteric tube tip below the diaphragm over the gastric bubble. Laboratory Results WBC 9.8 10^3/uL (4.0-10.0) 07/16/22 11:45 RBC 5.29 10^6/uL (4.1-5.3) 07/16/22 11:45 Hgb 16.2 g/dL (11.5-15.3) H 07/16/22 11:45 Hct 49.4 % (37.0-47.0) H 07/16/22 11:45 MCV 93.4 fl (81-99) 07/16/22 11:45 MCH 30.6 pg (28.0-34.0) 07/16/22 11:45 MCHC 32.8 g/dL (30.0-36.0) 07/16/22 11:45 RDW 12.6 % (12.1-15.1) 07/16/22 11:45 Plt Count 225 10^3/cmm (130-400) 07/16/22 11:45 MPV 10.4 fL (7.4-10.4) 07/16/22 11:45 Neut % (Auto) 63.2 % 07/16/22 11:45 Lymph % (Auto) 24.2 % 07/16/22 11:45 [place] % (Auto) 8.7 % 07/16/22 11:45 Eos % (Auto) 2.7 % 07/16/22 11:45 Baso % (Auto) 0.7 % 07/16/22 11:45 Neut # (Auto) 6.19 10^3/uL (1.8-7.7) 07/16/22 11:45 Lymph # (Auto) 2.4 10^3/uL (0.8-4.8) 07/16/22 11:45 [place] # (Auto) 0.9 10^3/uL (0.2-0.9) 07/16/22 11:45 Eos # (Auto) 0.3 10^3/uL (0.0-0.8) 07/16/22 11:45 Baso # (Auto) 0.1 10^3/uL (0.0-0.1) 07/16/22 11:45 Nucleated RBC % (auto) 0 % 07/16/22 11:45 Nucleated RBCs # 0.0 /100WBC 07/16/22 11:45 Sodium 138 mmol/L (136-145) 07/16/22 11:45 Potassium 3.7 mmol/L (3.5-5.1) 07/16/22 11:45 Chloride 100 mmol/L (98-107) 07/16/22 11:45 Carbon Dioxide 26 mmol/L (22-29) 07/16/22 11:45 Anion Gap 15.7 (5-19) 07/16/22 11:45 BUN 15 mg/dL (8-23) 07/16/22 11:45 Creatinine 0.7 mg/dL (0.5-0.9) 07/16/22 11:45 GFR Calculation Not Reportable 07/16/22 11:45 Glucose 96 mg/dL (65-115) 07/16/22 11:45 Calculated Osmolality 287 mOsm/kg (285-295) 07/16/22 11:45 Lactic Acid 1.5 mmol/L (0.5-2.2) 07/16/22 11:45 Calcium 9.7 mg/dL (8.5-10.5) 07/16/22 11:45 Total Bilirubin 1.2 mg/dL (0.15-1.2) 07/16/22 11:45 AST 23 U/L (0-32) 07/16/22 11:45 ALT 20 U/L (0-33) 07/16/22 11:45 Alkaline Phosphatase 82 U/L (35-105) 07/16/22 11:45 Total Protein 7.0 g/dL (6.6-8.7) 07/16/22 11:45 Albumin 4.4 g/dL (3.5-5.2) 07/16/22 11:45 Globulin 2.6 g/dL (1.3-4.6) 07/16/22 11:45 Lipase 22 U/L (13-60) 07/16/22 11:45 Urine Color Yellow (Yellow) 07/16/22 13:20 Urine Appearance Hazy (CLEAR) A 07/16/22 13:20 Urine pH 8 (5-7) H 07/16/22 13:20 Ur Specific [place] 1.010 (1.005-1.030) 07/16/22 13:20 Urine Protein Neg (Negative) 07/16/22 13:20 Urine Glucose (UA) Norm (Normal) 07/16/22 13:20 Urine Ketones Negative (Negative) 07/16/22 13:20 Urine Blood 2+ (Negative) H 07/16/22 13:20 Urine Nitrate Negative (Negative) 07/16/22 13:20 Urine Bilirubin Neg (Negative) 07/16/22 13:20 Prot Sulfosalicylic Acd Negative (Negative) 07/16/22 13:20 Urine Urobilinogen 1 mg/dL (Negative) H 07/16/22 13:20 Ur Leukocyte Esterase Negative (Negative) 07/16/22 13:20 Urine RBC 5-10 /hpf (0-2) H 07/16/22 13:20 Urine WBC 0-4 /hpf (0-5) H 07/16/22 13:20 Ur Squamous Epith Cells 0-4 /hpf (0-5) H 07/16/22 13:20 Amorphous Sediment 1+ /hpf 07/16/22 13:20 Urine Bacteria 1+ /hpf (NONE) H 07/16/22 13:20 Urine Mucus Trace /hpf 07/16/22 13:20 Discharge Plan Discharge Patient Disposition: Admitted As Inpatient Admit Provider: Armando Downey Clinical Impression: Small bowel obstruction, DM II (diabetes mellitus, type II), controlled, Hypertension, Atrial fibrillation Condition: Stable Coding Level of Care Code ED Assembler D[employer] Ring for Tad Sanderson
[2022-07-16 14:04] LABS: Bilirubin Urine Neg (Negative); Blood Urine 2+ (Negative); Glucose Urine UA Norm (Normal); Ketones Urine Negative (Negative); Leukocyte Esterase Urine Negative (Negative); Nitrate Urine Negative (Negative); Protein Urine Neg (Negative); Sulfosalicylic Acid Urine Negative (Negative); Urine Appearance Hazy (CLEAR); Urine Color Yellow (Yellow); Urobilinogen Urine 1 mg/dL (Negative); pH Urine 8 (5-7)
[2022-07-16 14:05] LABS: Add Urine Microscopic? YES
[2022-07-16 14:06] LABS: Add Urine Culture? No; Amorphous Sediment Urine 1+ /hpf; Bacteria Urine 1+ /hpf; Mucus Urine TRACE /hpf; Squamous Epithelial Cell Urine 0-4 /hpf (0-5); WBC Urine 0-4 /hpf (0-5)
[2022-07-16] MEDS: morphine 4 mg/mL SDV 1 mL IVP (16:38)
--- NOTE | 2022-07-16 16:55 | PM.HP ---
Providers/Chief Complaint Primary Care Provider: Baldomero Britt MD Chief Complaint: abd pain History of Present Illness Anju Duffy is a 77 year old female with history of recurrent bowel obstruction, most recently seen in the ER for her symptoms however she left because she had an emergency at home presented back with chief complaint abdominal discomfort, bloating and nausea. Patient has not experienced any vomiting patient is stating that she is still experiencing bowel movement, she is passing flatus. She noticed that her symptoms were similar when she had NG tube placed last time that prompted her visit to the ER. Imaging showed partial SBO. NG tube has been inserted, no return noticed, abdomen is soft she just had received morphine Patient is DNR/DNI Review of Systems Const: Denies: fever(s) Eyes: Denies: change in vision ENMT: Denies: throat pain Card: Denies: chest pain Resp: Denies: dyspnea GI: Reports: abdominal pain and nausea : Denies: flank pain Musc: Denies: neck pain Skin/Breast: Denies: rash Neuro: Denies: headache(s) Psych: Reports: anxiety Endo: Denies: polyuria [place]/Lymph: Denies: easy bruising All/Imm: Denies: urticaria Medications/Allergies Home Medications Medication Instructions Recorded Confirmed Last Taken Type ondansetron HCl 8 mg tablet 8 mg PO TID PRN Nausea And Vomiting 03/21/21 07/16/22 11/09/21 History Prevagen 1 cap PO DAILY 06/07/21 07/16/22 07/16/22 History buspirone 5 mg tablet 5 mg PO TID PRN Anxiety 11/10/21 07/16/22 11/09/21 History magnesium hydroxide 400 mg/5 mL 1,200 mg (15 mL) PO QID PRN 11/11/21 07/16/22 11/11/21 Rx oral suspension (Milk of Magnesia) constipation #355 mL apixaban 5 mg tablet (Eliquis) 5 mg PO BID #180 tabs 05/03/22 07/16/22 07/16/22 Rx amlodipine 2.5 mg tablet 2.5 mg PO DAILY 06/25/22 07/16/22 07/16/22 History polyethylene glycol 3350 17 4 g PO BID #238 grams 06/27/22 07/16/22 07/16/22 Rx gram/dose oral powder (Miralax) carvedilol 12.5 mg tablet 12.5 mg PO QAM #90 tabs 07/06/22 07/16/22 07/16/22 Rx carvedilol 6.25 mg tablet 6.25 mg PO QPM 07/16/22 07/16/22 07/15/22 History Allergies Allergy/AdvReac Type Severity Reaction Status Date / Time Latex, Natural Rubber Allergy ALGY-Rash Verified 07/16/22 14:19 olanzapine [From Zyprexa] Allergy hallucinati Verified 07/16/22 14:19 ons/agitate d lorazepam [From Ativan] AdvReac hallucination, Verified 07/16/22 14:19 agitated PFSH Acute PFSH: Medical History Atrial fibrillation Chronic nausea Colonic diverticular abscess Congestive heart failure Coronary disease Discitis, unspecified, lumbar region DM II (diabetes mellitus, type II), controlled GUILLAUME (generalized anxiety disorder) GERD (gastroesophageal reflux disease) Gout Hypertension Lumbar stenosis with neurogenic claudication Migraine MRSA bacteremia Myopericarditis Necrotizing fasciitis Non-ST elevation [place] (NSTEMI) Osteoarthritis Pain of both breasts Pericarditis Scleroderma Small bowel obstruction Surgical History H/O colectomy H/O hernia repair History of delivery History of cholecystectomy History of neck surgery S/P dilatation of esophageal stricture S/P ANH-BSO Family History Mother Congestive heart failure Social History Smoking and tobacco status: former smoker Alcohol intake: never Substance/Drug Use: never Lives independently: No Household members: spouse Marital status: Vitals/I&O/Wt Last Vital Signs Temp 98.0 F 07/16/22 11:17 Pulse 60 07/16/22 16:21 Resp 21 H 07/16/22 16:21 BP 112/50 07/16/22 15:10 Pulse Ox 98 07/16/22 16:21 O2 Del Method Nasal Cannula 07/16/22 16:21 O2 Flow Rate 4 07/16/22 16:21 Weight last 48 hrs Weight 62.596 kg Physical Exam Narrative: Patient sitting comfortably in her bed NG to suction Mild no bile content noticed Abdomen soft Bowel sound present Nonfocal neuro exam S1, S2 Currently on room air No active distress Data 07/16/22 11:45 07/16/22 11:45 A&P Assessment and plan (1) Abdominal pain: (2) Hx SBO: (3) DM II (diabetes mellitus, type II), controlled: Qualifiers: Diabetes mellitus intermediate insulin use: without channeling machine operator use Diabetes mellitus complication status: without complication Qualified Code(s): E11.9 - Type 2 diabetes mellitus without complications (4) Atrial fibrillation: Qualifiers: Atrial fibrillation type: paroxysmal Qualified Code(s): I48.0 - Paroxysmal atrial fibrillation (5) Hypertension: Qualifiers: Hypertension type: essential hypertension Qualified Code(s): I10 - Essential (primary) hypertension (6) Protein-energy malnutrition: Plan lPartial bowel obstruction Passing flatus Passing flatus Abdomensoft regular bowel movement NG to low intermittent Conservative management in case of tachycardia we can use IV labetalol A-fib without any RVR Hold p.o. medications for now Monitor blood pressure and heart rate N.p.o. DNR/DNI goals of care discussed with the patient Protein energy malnourishment we will request Ensure/boost when she starts eating Attestations Medical Necessity Statement*: Less than 2 midnights anticipated Diagnoses Abdominal pain R10.9 Hx SBO Z87.19 DM II (diabetes mellitus, type II), controlled E11.9 Diabetes mellitus channeling machine operator insulin use: without channeling machine operator use Diabetes mellitus complication status: without complication Atrial fibrillation I48.0 Atrial fibrillation type: paroxysmal Hypertension I10 Hypertension type: essential hypertension Protein-energy malnutrition E46
--- NOTE | 2022-07-16 17:28 | XRR_ITS ---
PROCEDURE INFORMATION: Exam: XR Chest Exam date and time: 07/16/2022 5:34 PM Age: 77 years old Clinical indication: Device placement; Ng tube; Additional info: Ng tube placement TECHNIQUE: Imaging protocol: Radiologic exam of the chest. Views: 1 view. COMPARISON: CR (CHEST, ) 06/24/2022 11:33 PM FINDINGS: Lungs: Unremarkable. No consolidation. Pleural spaces: Unremarkable. No pleural effusion. No pneumothorax. Heart/Mediastinum: Unremarkable. No cardiomegaly. Bones/joints: Unremarkable. NG tube is in the distal esophagus the distal side hole is 10 cm from the EG junction. This tube should be advanced at least 15 cm XR/XR chest 1V portable [id number] IMPRESSION: No acute findings. NG tube is in the distal esophagus
[2022-07-16] MEDS: dextrose 5%-sod chloride 0.9% 1,000 ML 100 ML IV (18:16)
--- NOTE | 2022-07-16 18:17 | XRR_ITS ---
PROCEDURE INFORMATION: Exam: XR Chest Exam date and time: 07/16/2022 6:22 PM Age: 77 years old Clinical indication: Device placement; Ng tube; Additional info: Ng placement TECHNIQUE: Imaging protocol: Radiologic exam of the chest. Views: 1 view. COMPARISON: CR (CHEST, ) 07/16/2022 5:34 PM FINDINGS: Tubes, catheters and devices: Enteric tube tip below the diaphragm over the gastric bubble. Lungs: Unremarkable. No consolidation. Pleural spaces: Unremarkable. No pleural effusion. No pneumothorax. Heart/Mediastinum: Unremarkable. No cardiomegaly. Bones/joints: Unremarkable. XR/XR chest 1V portable [id number] IMPRESSION: Enteric tube tip below the diaphragm over the gastric bubble.
[2022-07-16] MEDS: morphine 4 mg/mL SDV 1 mL 2 MG IVP (21:47)
[2022-07-17] VITALS (9 sets, daily range): BP systolic 112–144; BP diastolic 65–84; PULSE 60–80; RESP 15–18; TEMP 36.5–37; O2SAT 93–97; BMI 25.2
[2022-07-17 05:09] LABS: Basophils % 0.4 %; Eosinophils # 0.2 10^3/uL (0.0-0.8); Hematocrit 44.3 % (37.0-47.0); Hemoglobin 14.3 g/dL (11.5-15.3); Lymphocytes # 2.1 10^3/uL (0.8-4.8); Lymphocytes % 27.3 %; Mean Corpuscular HGB Conc 32.3 g/dL (30.0-36.0); Mean Corpuscular Hemoglobin 30.2 pg (28.0-34.0); Mean Corpuscular Volume 93.7 fl (81-99); Mean Platelet Volume 10.4 fL (7.4-10.4); Monocytes # 0.9 10^3/uL (0.2-0.9); Monocytes % 11.8 %; Neutrophils # 4.36 10^3/uL (1.8-7.7); Neutrophils % 57.2 %; Nucleated Red Blood Cells % 0 %; Platelet Count 196 10^3/cmm (130-400); Red Blood Count 4.73 10^6/uL (4.1-5.3); Red Cell Distribution Width 12.4 % (12.1-15.1); White Blood Count 7.6 10^3/uL (4.0-10.0)
[2022-07-17 05:29] LABS: Anion Gap 15.1 (5-19); Blood Urea Nitrogen 12 mg/dL (8-23); Calcium 8.6 mg/dL (8.5-10.5); Carbon Dioxide 24 mmol/L (22-29); Chloride 105 mmol/L (98-107); Creatinine Clr Calc Pharmacy 52.8505; Glucose 92 mg/dL (65-115); Osmolality Calculated 289 mOsm/kg (285-295); Potassium 4.1 mmol/L (3.5-5.1); Sodium 140 mmol/L (136-145)
[2022-07-17] MEDS: dextrose 5%-sod chloride 0.9% 1,000 ML 100 ML IV ×2 (05:50→16:42)
--- NOTE | 2022-07-17 08:18 | P.PN_ITS ---
Subjective Subjective: This morning patient is stating that she was experiencing nausea NGT to low intermittent suction with 400 mL bile content Patient wanted to walk, I have notified the nurse to clamp to for about 30 minutes and let her walk Patient is endorsing passing flatus every day her last bowel movement was 3 days ago Vitals/I&O/Wt Last Vital Signs Temp 98.2 F 07/17/22 07:28 Pulse 80 07/17/22 07:28 Resp 15 07/17/22 07:28 BP 124/72 07/17/22 07:28 Pulse Ox 95 07/17/22 07:28 O2 Del Method Room Air 07/17/22 07:28 O2 Flow Rate 4 07/16/22 16:21 07/16/22 07/17/22 07/17/22 22:59 06:59 14:59 Intake Total 1000 / 1000 Output Total 375 / 375 Balance 625 / 625 Weight last 48 hrs Weight 62.596 kg Weight 62.596 kg Physical Exam Narrative: Abdomen soft Dehydrated Bowel sounds sluggish No signs of peritonitis Pleasant and cooperative Bile 400 mL in the container S1, S2 Currently on room air No active discomfort Data 07/17/22 04:39 07/17/22 04:39 A&P Assessment and plan (1) Small bowel obstruction: (2) Abdominal pain: (3) Hx SBO: (4) DM II (diabetes mellitus, type II), controlled: (5) Low back pain at multiple sites: (6) Protein-energy malnutrition: Plan Partial SBO Patient passing flatus Bowel movement was 3 days ago Bowel continent for an mL, continue NG tube to suction If there is no output by evening we might be able to clamp her tube and watch f or worsening of symptoms We might be able to clamp tube later today versus tomorrow and remove NG tube by tomorrow Conservative management to be continued Continue D5 half-normal saline fluid resuscitation Patient carries history of diabetes She has history of A-fib apixaban on hold, I do not think we will need any surgical intervention, I will go ahead start her on therapeutic Lovenox for now heart rate has been low 90s DNR/DNI N.p.o. Attestations Medical Necessity Statement*: Continue medical management Diagnoses Small bowel obstruction K56.609 Abdominal pain R10.9 Hx SBO Z87.19 DM II (diabetes mellitus, type II), controlled E11.9 Low back pain at multiple sites M54.50 Protein-energy malnutrition E46
[2022-07-17] MEDS: enoxaparin 60 mg/0.6 mL Syringe SUBCUT ×2 (09:41→21:48)
--- NOTE | 2022-07-17 11:03 | PC.CHAP ---
Pastoral Care Encounter/Spiritual Assessment Type of Contact [] Declined chargeback specialist visit [] Patient/Family/Request visit [] Outpatient visit [] Follow-up visit [] Physician referral [] Code/Alert [x] Routine visit [] Staff referral [] Actively dying [] Patient sleeping [x] Family support [] [] Out of room [] Palliative care [] [] Receiving care in room [] Pre-surgical visit [] Trauma [] Long length of stay [] ICU visit [] Other: Relational/Emotional Strength [x] Patient feels connected with others/family/visitors/staff [] Distress [] Loneliness/isolation [] Abandonment Spirituality of Patient [x] Person of Martha [] Attends Congregation of their Martha [x] Believes in Prayer [] Reads Bible or Presybeterian materials [] There are Spiritual issues to be addressed Counter Tacker Interventions [x] Prayer [x] Active listening [] Non-anxious presence [x] Spiritual/emotional support [] Crisis/trauma care [] Spiritual counseling [] Bereavement support [] Provided bereavement packet [] Provided Bible/devotional materials [] Provided toy/stuffed animal, coloring book to patient or family member [] Provided Communion [] Anointing/[place] [] Salvation [x] Completed spiritual assessment [] Other: Impact on Illness or Injury [] Angry [] Fearful [] Anxious [] Often cries [] Exhaustion [] Unable to work [] Unable to attend religious [] Unable to walk/stand [] Unable to read [] Unable to drive [] Unable to eat/drink [] Unable to sleep [] Unable to be with family [] Patient intubated [] Other: Summary Time spent with patient 10 min
--- NOTE | 2022-07-17 15:35 | CTR_ITS ---
PROCEDURE INFORMATION: Exam: CTA Abdomen and Pelvis With Contrast Exam date and time: 07/17/2022 5:28 PM Age: 77 years old Clinical indication: Abdominal pain; Acute; Prior surgery; Surgery date: 6+ months; Surgery type: Gb appy hyst colostomy; Additional info: Mesenteric ischemia? TECHNIQUE: Imaging protocol: Computed tomographic angiography of the abdomen and pelvis with contrast. Sagittal and coronal reformatted images were created and reviewed. 3D rendering (Not supervised by radiologist): MIP and/or 3D reconstructed images were created by the technologist. Radiation optimization: All CT scans at this facility use at least one of these dose optimization techniques: automated exposure control; mA and/or kV adjustment per patient size (includes targeted exams where dose is matched to clinical indication); or iterative reconstruction. Contrast material: OMNI 350; Contrast volume: 100 ml; Contrast route: INTRAVENOUS (IV); REPORTING DATA: Count of CT and Cardiac NM exams in prior 12 months: This patient has received 6 known CTs and 0 known cardiac nuclear medicine studies in the 12 months prior to the current study. COMPARISON: CT abdomen pelvis wo con [id number] 07/16/2022 2:09 PM RADIATION DOSE METRICS: Total DLP (mGy-cm): 346 FINDINGS: Lungs: Visualized lungs are clear. Pleural spaces: No pleural effusion. Heart: Visualized portions of the heart are unremarkable. Aorta: Moderate calcified and noncalcified plaque. No occlusion, thrombosis, stenosis, extravasation, dissection, or aneurysm. Celiac trunk and mesenteric arteries: Mild calcified plaque at the origins of the celiac artery and SMA. No occlusion, thrombosis, stenosis, extravasation, dissection, or aneurysm. Renal arteries: Mild to moderate calcified plaque at the origins of the right and left renal arteries. No occlusion, thrombosis, stenosis, extravasation, dissection, or aneurysm. Right iliac arteries: Mild calcified plaque. No occlusion, thrombosis, stenosis, extravasation, dissection, or aneurysm. Left iliac arteries: Mild calcified plaque. No occlusion, thrombosis, stenosis, extravasation, dissection, or aneurysm. Liver: The liver is unremarkable. Gallbladder and bile ducts: Stable findings consistent with a previous cholecystectomy. Stable dilatation of the biliary ducts, not unexpected in a patient who has had a prior cholecystectomy. Stable intrahepatic and extrahepatic pneumobilia. Pancreas: The pancreas is unremarkable. No pancreatic ductal dilatation. Spleen: Multiple calcified granulomas in the spleen are stable. Adrenal glands: The right and left adrenal glands are unremarkable. Kidneys and ureters: Simple cyst in the right kidney measuring 1.2 cm. Simple cyst in the left kidney measuring 1.2 cm. Multiple subcentimeter hypodense foci in the left kidney that are too small to characterize, however likely represent small cysts. The distal right and left ureters are obscured by adjacent bowel loops and soft tissue structures. The visualized portions of the ureters are unremarkable. Stomach and bowel: Ingested contents in the stomach. Fluid within the small bowel and colon without evidence of bowel wall thickening. No evidence for gastrointestinal bleed. Appendix: Appendix not definitely visualized. No inflammatory changes in the pericecal region however. Intraperitoneal space: No free intraperitoneal air. No ascites. No loculated fluid collections to suggest an abscess. Lymph nodes: No lymphadenopathy. Urinary bladder: The bladder is incompletely filled, which can limit evaluation. No focal abnormality in the bladder however. Reproductive: Unremarkable as visualized. Bones/joints: Bones are diffusely osteopenic. Degenerative changes in the spine, sacroiliac joints, and hips. Soft tissues: No acute abnormality in the extra-abdominal soft tissues. CT/CT angio abdomen pelvis [id number] IMPRESSION: 1. Fluid within the small bowel and colon without evidence of bowel wall thickening. This may reflect viral gastroenteritis in the appropriate clinical situation. 2. No evidence for gastrointestinal bleed. Nuclear medicine imaging with tagged red blood cell scan may be obtained for further evaluation if clinical concern for gastrointestinal bleed persists. 3. Eeqx-ju-uxpetgsr atherosclerotic disease. No occlusion, thrombosis, stenosis, extravasation, dissection, or aneurysm. 4. Incidental/nonacute findings are listed in the report.
[2022-07-17] MEDS: iohexol 350 mg/mL 500 mL Btl (per mL) IV (17:41)
--- NOTE | 2022-07-17 18:03 | PM.CONSULT ---
Providers/Reason For Consult Consulting Physician/Specialty*: Dr. Jose Juan Carbone, DO/General surgery Reason for Consult*: Partial small bowel obstruction Attending Physician: Armando Downey MD Primary Care Provider: Baldomero Britt MD History of Present Illness History of Present Illness Anju Duffy is a 77 year old female with a history of bowel obstructions that were relieved with conservative management that presented with similar symptoms of bowel obstruction. She reports that she still passing flatus and having bowel movements, especially since the NG tube was placed last night. She denies any current nausea or vomiting. Denies current abdominal pain. Review of Systems General: Reports: 10 or more systems reviewed and unremarkable except in HPI and below Medications/Allergies Home Medications Medication Instructions Recorded Confirmed Last Taken Type ondansetron HCl 8 mg tablet 8 mg PO TID PRN Nausea And Vomiting 03/21/21 07/16/22 11/09/21 History Prevagen 1 cap PO DAILY 06/07/21 07/16/22 07/16/22 History buspirone 5 mg tablet 5 mg PO TID PRN Anxiety 11/10/21 07/16/22 11/09/21 History magnesium hydroxide 400 mg/5 mL 1,200 mg (15 mL) PO QID PRN 11/11/21 07/16/22 11/11/21 Rx oral suspension (Milk of Magnesia) constipation #355 mL apixaban 5 mg tablet (Eliquis) 5 mg PO BID #180 tabs 05/03/22 07/16/22 07/16/22 Rx amlodipine 2.5 mg tablet 2.5 mg PO DAILY 06/25/22 07/16/22 07/16/22 History polyethylene glycol 3350 17 4 g PO BID #238 grams 06/27/22 07/16/22 07/16/22 Rx gram/dose oral powder (Miralax) carvedilol 12.5 mg tablet 12.5 mg PO QAM #90 tabs 07/06/22 07/16/22 07/16/22 Rx carvedilol 6.25 mg tablet 6.25 mg PO QPM 07/16/22 07/16/22 07/15/22 History Allergies Allergy/AdvReac Type Severity Reaction Status Date / Time Latex, Natural Rubber Allergy ALGY-Rash Verified 07/16/22 14:19 olanzapine [From Zyprexa] Allergy hallucinati Verified 07/16/22 14:19 ons/agitate d lorazepam [From Ativan] AdvReac hallucination, Verified 07/16/22 14:19 agitated Current Medications Generic Name Dose Route Start Last Admin Trade Name Freq PRN Reason Stop Dose Admin Enoxaparin Sodium 60 mg 07/17/22 09:00 07/17/22 09:41 Enoxaparin 60 Mg/0.6 Ml Syringe SUBCUT 60 mg Q12H ROCIO Administration Dextrose/Sodium Chloride 1,000 mls @ 100 mls/hr 07/16/22 17:25 07/17/22 16:42 Dextrose 5%-Sod Chloride 0.9% IV 100 mls/hr .Q10H ROCIO Administration Morphine Sulfate 2 mg 07/16/22 17:25 07/16/22 21:47 Morphine 4 Mg/Ml Sdv 1 Ml IVP 2 mg Q6H PRN Administration abd pain PFSH Acute PFSH: Medical History Atrial fibrillation Chronic nausea Colonic diverticular abscess Congestive heart failure Coronary disease Discitis, unspecified, lumbar region DM II (diabetes mellitus, type II), controlled GUILLAUME (generalized anxiety disorder) GERD (gastroesophageal reflux disease) Gout Hx SBO Hypertension Low back pain at multiple sites Lumbar stenosis with neurogenic claudication Migraine MRSA bacteremia Myopericarditis Necrotizing fasciitis Non-ST elevation VA (NSTEMI) Osteoarthritis Pain of both breasts Pericarditis Protein-energy malnutrition Scleroderma Small bowel obstruction Surgical History H/O colectomy H/O hernia repair History of delivery History of cholecystectomy History of neck surgery S/P dilatation of esophageal stricture S/P ANH-BSO Family History Mother Congestive heart failure Social History Smoking and tobacco status: former smoker Alcohol intake: never Substance/Drug Use: never Lives independently: No Household members: spouse Marital status: Vitals/I&O/Wt Last Vital Signs Temp 98.2 F 07/17/22 15:56 Pulse 64 07/17/22 15:56 Resp 18 07/17/22 15:56 BP 112/70 07/17/22 15:56 Pulse Ox 95 07/17/22 15:56 O2 Del Method Room Air 07/17/22 15:56 O2 Flow Rate 4 07/16/22 16:21 07/17/22 07/17/22 07/17/22 06:59 14:59 22:59 Intake Total 1000 / 1000 1000 / 1000 Output Total 375 / 375 Balance 625 / 625 1000 / 1000 Weight last 48 hrs Weight 138 lb Weight 138 lb Physical Exam Narrative: General : Patient is well developed , no acute distress, oriented x3 Head : Normal cephalic, a-traumatic. Ears : Pinnae and external canal are normal. Hearing is normal. Eyes : PERRLA, Sclera and injection are normal. No conjunctival discharge. Nose : Mucous membranes are without erythema. Throat : buccal mucosa is normal, gums are without significant recession or hypertrophy. Lungs : Equal chest rise bilaterally, no use of accessory muscles, trachea is midline. Cor : Rate and rhythm are normal. Abdomen : Soft, ND, NT, no g/r/m Extremities : No edema, no cyanosis or clubbing, dorsalis pedis pulses are present bilaterally, non-tender to palpation of calves. Upper extremities are normal bilaterally. Back : non-tender to palpation, no CVA tenderness. Neuro : CN II - XII intact, Upper and lower extremities have equal and full strength Data 07/17/22 04:39 07/18/22 04:33 A&P Assessment and plan (1) Partial small bowel obstruction: Plan NG tube removed Clear liquid diet Conservative management for now. No acute surgical invention. Medical management per hospitalist Coding Level of Care Code 31001 Diagnoses Partial small bowel obstruction K56.600
[2022-07-18] MEDS: dextrose 5%-sod chloride 0.9% 1,000 ML 100 ML IV (01:51)
[2022-07-18 04:00] VITALS: BP 162/77; PULSE 61; RESP 16; TEMP 36.7; O2SAT 96
[2022-07-18 05:04] LABS: Blood Urea Nitrogen 6 mg/dL (8-23); Calcium 8.4 mg/dL (8.5-10.5); Carbon Dioxide 23 mmol/L (22-29); Chloride 108 mmol/L (98-107); Creatinine Clr Calc Pharmacy 52.8505; Glucose 124 mg/dL (65-115); Osmolality Calculated 289 mOsm/kg (285-295); Sodium 140 mmol/L (136-145)
[2022-07-18 05:07] LABS: Anion Gap 12.6 (5-19); Potassium 3.6 mmol/L (3.5-5.1)
[2022-07-18] MEDS: acetaminophen 325 mg Tablet 650 MG PO (05:52)
--- NOTE | 2022-07-18 07:00 | XRR_ITS ---
PROCEDURE INFORMATION: Exam: XR Abdomen Exam date and time: 07/18/2022 5:41 AM Age: 77 years old Clinical indication: Other: F/u sbo TECHNIQUE: Imaging protocol: Radiologic exam of the abdomen. Views: Frontal supine view of the abdomen. 1 View. COMPARISON: CT abdomen pelvis con [id number] 07/16/2022 2:09 PM FINDINGS: Gastrointestinal tract: bowel gas pattern is nonspecific. Air filled large bowel including distal rectal gas. Moderate amount stool throughout the large bowel. Bones/joints: Unremarkable. XR/XR KUB portable [id number] IMPRESSION: 1. Bowel gas pattern is nonspecific. Air filled large bowel including distal rectal gas. 2. Moderate amount stool throughout the large bowel.
[2022-07-18 07:30] VITALS: BP 110/70; PULSE 66; RESP 14; TEMP 36.7; O2SAT 97
[2022-07-18 08:00] VITALS: PULSE 65; RESP 16; O2SAT 95
--- NOTE | 2022-07-18 09:42 | P.DS_ITS ---
Discharge Providers Date of Admission: 07/17/22 09:44 Date of Discharge: July 18, 2022 Attending Provider at Admission: Armando Downey MD Attending Provider at Discharge: Armando Downey MD Primary Care Provider: Baldomero Britt MD Diagnoses at Discharge Discharge Diagnosis (1) Small bowel obstruction: Status: Acute (2) Abdominal pain: Status: Acute (3) Hx SBO: Status: Acute (4) DM II (diabetes mellitus, type II), controlled: Status: Acute (5) Low back pain at multiple sites: Status: Acute (6) Protein-energy malnutrition: Status: Acute Reason for Visit Reason for Visit: abd pain Hospital Course Hospital Course 77-year-old female who carries history of short-term memory loss, recurrent abdominal surgeries in the past has seen surgeon at [facility], as per the after left hemicolectomy patient developed fistula which was repaired with a tube but that tube had to be removed because of excruciating pain however fistula has repaired, she recently had CTE abdomen at [facility], her surgery was done at [facility], no further surgical interventions were recommended by the surgeon there. Patient at home uses liquid pur?ed diet. She watches what she eats tries to walk on daily basis and leading a healthy [place] le. This time she presented with worsening of nausea and abdominal bloating, imaging revealed distended small bowel loops NG tube was placed about 500 mm was obtained in next 24 hours, NG tube was removed by Dr. Carbone patient tolerated diet, she has had 2 bowel movements during hospitalization, she is passing flatus, abdominal exam is benign. CT abdomen did not show any sign of mesenteric ischemia. At the time of discharge patient is tolerating diet, passing flatus, had a bowel movement. Hemodynamically stable. Considering her significant amount of abdominal surgery in the past she is at high risk of recurrent obstructions. was very anxious and concerned that if something needs to be done to prevent recurrent obstructions in the future. That was the reason for Dr. Carbone's consultation kindly review his note for further details. Physical Exam Narrative: Patient is awake and alert Tolerating diet Abdomen soft Bowel sound present Euvolemic at the bedside Currently on room air Pleasant and cooperative Discharge Data Studies Completed and Pending Completed Studies During Hospitalization Category Date Time Status CT abdomen pelvis con [id number] Stat Cat Scan 07/16/22 13:31 Completed CTA abdomen pelvis [CT angio abdomen pelvis [id number]] Cat Scan 07/17/22 15:35 Completed Routine XR KUB portable [id number] Routine Exams 07/18/22 07:00 Completed XR acute abdomen series [id number] Stat Exams 07/16/22 13:00 Completed XR chest 1V portable [id number] Routine Exams 07/16/22 18:17 Completed XR chest 1V portable [id number] Stat Exams 07/16/22 17:28 Completed Radiology Impressions Chest/Abdomen X-ray 07/16/22 13:00 IMPRESSION: No acute findings. Abdomen/Pelvis CT 07/16/22 13:31 IMPRESSION: 1. Fluid-filled slightly dilated loops of small bowel in the lower abdomen and pelvis suspicious for partial or developing small bowel obstruction. 2. Distal ileal small bowel loops appear decompressed. Persistent air in the colon which is relatively decompressed. 3. Prior postoperative changes involving the rectosigmoid. Evidence of bowel anastomosis in the RIGHT lower quadrant. 4. Prior ventral abdominal wall mesh hernia repair. No recurrent hernia. 5. Air-fluid level in the stomach with mild to moderate distention. 6. Urine distended bladder. 7. Cholecystectomy with pneumobilia. Pneumobilia is present on the prior CT in 2020. 8. Prior appendectomy and hysterectomy. Notified Bhargav Mendoza DO at 07/16/2022 3:05 PM. Chest X-Ray 07/16/22 18:17 IMPRESSION: Enteric tube tip below the diaphragm over the gastric bubble. Abdomen/Pelvis CTA 07/17/22 15:35 IMPRESSION: 1. Fluid within the small bowel and colon without evidence of bowel wall thickening. This may reflect viral gastroenteritis in the appropriate clinical situation. 2. No evidence for gastrointestinal bleed. Nuclear medicine imaging with tagged red blood cell scan may be obtained for further evaluation if clinical concern for gastrointestinal bleed persists. 3. Fssb-nb-hhtuoxjz atherosclerotic disease. No occlusion, thrombosis, stenosis, extravasation, dissection, or aneurysm. 4. Incidental/nonacute findings are listed in the report. KUB X-Ray 07/18/22 07:00 IMPRESSION: 1. Bowel gas pattern is nonspecific. Air filled large bowel including distal rectal gas. 2. Moderate amount stool throughout the large bowel. Laboratory Results WBC 7.6 10^3/uL (4.0-10.0) 07/17/22 04:39 RBC 4.73 10^6/uL (4.1-5.3) 07/17/22 04:39 Hgb 14.3 g/dL (11.5-15.3) 07/17/22 04:39 Hct 44.3 % (37.0-47.0) 07/17/22 04:39 MCV 93.7 fl (81-99) 07/17/22 04:39 MCH 30.2 pg (28.0-34.0) 07/17/22 04:39 MCHC 32.3 g/dL (30.0-36.0) 07/17/22 04:39 RDW 12.4 % (12.1-15.1) 07/17/22 04:39 Plt Count 196 10^3/cmm (130-400) 07/17/22 04:39 MPV 10.4 fL (7.4-10.4) 07/17/22 04:39 Neut % (Auto) 57.2 % 07/17/22 04:39 Lymph % (Auto) 27.3 % 07/17/22 04:39 Anderson % (Auto) 11.8 % 07/17/22 04:39 Eos % (Auto) 3.0 % 07/17/22 04:39 Baso % (Auto) 0.4 % 07/17/22 04:39 Neut # (Auto) 4.36 10^3/uL (1.8-7.7) 07/17/22 04:39 Lymph # (Auto) 2.1 10^3/uL (0.8-4.8) 07/17/22 04:39 Anderson # (Auto) 0.9 10^3/uL (0.2-0.9) 07/17/22 04:39 Eos # (Auto) 0.2 10^3/uL (0.0-0.8) 07/17/22 04:39 Baso # (Auto) 0.0 10^3/uL (0.0-0.1) 07/17/22 04:39 Nucleated RBC % (auto) 0 % 07/17/22 04:39 Nucleated RBCs # 0.0 /100WBC 07/17/22 04:39 Sodium 140 mmol/L (136-145) 07/18/22 04:33 Potassium 3.6 mmol/L (3.5-5.1) 07/18/22 04:33 Chloride 108 mmol/L (98-107) H 07/18/22 04:33 Carbon Dioxide 23 mmol/L (22-29) 07/18/22 04:33 Anion Gap 12.6 (5-19) 07/18/22 04:33 BUN 6 mg/dL (8-23) L 07/18/22 04:33 Creatinine 0.5 mg/dL (0.5-0.9) 07/18/22 04:33 GFR Calculation Not Reportable 07/18/22 04:33 Glucose 124 mg/dL (65-115) H 07/18/22 04:33 Calculated Osmolality 289 mOsm/kg (285-295) 07/18/22 04:33 Lactic Acid 1.5 mmol/L (0.5-2.2) 07/16/22 11:45 Calcium 8.4 mg/dL (8.5-10.5) L 07/18/22 04:33 Magnesium 2.0 mg/dL (1.7-2.3) 07/17/22 04:39 Total Bilirubin 1.2 mg/dL (0.15-1.2) 07/16/22 11:45 AST 23 U/L (0-32) 07/16/22 11:45 ALT 20 U/L (0-33) 07/16/22 11:45 Alkaline Phosphatase 82 U/L (35-105) 07/16/22 11:45 Total Protein 7.0 g/dL (6.6-8.7) 07/16/22 11:45 Albumin 4.4 g/dL (3.5-5.2) 07/16/22 11:45 Globulin 2.6 g/dL (1.3-4.6) 07/16/22 11:45 Lipase 22 U/L (13-60) 07/16/22 11:45 Urine Color Yellow (Yellow) 07/16/22 13:20 Urine Appearance Hazy (CLEAR) A 07/16/22 13:20 Urine pH 8 (5-7) H 07/16/22 13:20 Ur Specific [place] 1.010 (1.005-1.030) 07/16/22 13:20 Urine Protein Neg (Negative) 07/16/22 13:20 Urine Glucose (UA) Norm (Normal) 07/16/22 13:20 Urine Ketones Negative (Negative) 07/16/22 13:20 Urine Blood 2+ (Negative) H 07/16/22 13:20 Urine Nitrate Negative (Negative) 07/16/22 13:20 Urine Bilirubin Neg (Negative) 07/16/22 13:20 Prot Sulfosalicylic Acd Negative (Negative) 07/16/22 13:20 Urine Urobilinogen 1 mg/dL (Negative) H 07/16/22 13:20 Ur Leukocyte Esterase Negative (Negative) 07/16/22 13:20 Urine RBC 5-10 /hpf (0-2) H 07/16/22 13:20 Urine WBC 0-4 /hpf (0-5) H 07/16/22 13:20 Ur Squamous Epith Cells 0-4 /hpf (0-5) H 07/16/22 13:20 Amorphous Sediment 1+ /hpf 07/16/22 13:20 Urine Bacteria 1+ /hpf (NONE) H 07/16/22 13:20 Urine Mucus Trace /hpf 07/16/22 13:20 Vitals Last Vital Signs Temp 98.1 F 07/18/22 07:30 Pulse 66 07/18/22 07:30 Resp 14 07/18/22 07:30 BP 110/70 07/18/22 07:30 Pulse Ox 97 07/18/22 07:30 O2 Del Method Room Air 07/18/22 07:30 O2 Flow Rate 4 07/17/22 20:00 Discharge Plan Discharge Patient Disposition: Home Condition: Stable Prescriptions: Continued Eliquis 5 mg tablet 5 mg PO BID Qty: 180 3RF carvedilol 12.5 mg tablet 12.5 mg PO QAM Qty: 90 1RF ondansetron HCl 8 mg tablet 8 mg PO TID PRN (Reason: Nausea And Vomiting) Prevagen 1 cap PO DAILY carvedilol 6.25 mg tablet 6.25 mg PO QPM buspirone 5 mg tablet 5 mg PO TID PRN (Reason: Anxiety) magnesium hydroxide [Milk of Magnesia] 400 mg/5 mL suspension 1,200 mg PO QID PRN (Reason: constipation) Qty: 355 0RF amlodipine 2.5 mg tablet 2.5 mg PO DAILY polyethylene glycol 3350 [Miralax] 17 gram/dose powder 4 g PO BID Qty: 238 0RF Discharge Orders: Discharge Order (Routine); Ordered 07/18/22 Ordered By: Armando Downey Referrals: Baldomero Britt MD [Primary Care Provider] - 07/23/22 1:30 pm Discharge Diet: GI Soft Patient Instructions: Opioid Safety Discharge Attestations Time Spent in Discharge Care*: greater than 30 min Status at Discharge: Cognitive status at discharge: cognitively intact , Behavioral status at discharge: cooperative , Quality Metrics Clinical Quality Measures [ No reported AMI, CVA or VTE this stay] Coding Level of Care Code Acute Code for Chg Fwd Diagnoses Small bowel obstruction K56.609 Abdominal pain R10.9 Hx SBO Z87.19 DM II (diabetes mellitus, type II), controlled E11.9 Low back pain at multiple sites M54.50 Protein-energy malnutrition E46
[2022-07-18 15:43] VITALS: PULSE 65; RESP 16; O2SAT 95
== END 2022-07-18 14:45 | disposition home or self-care (01) | DRG 389 ==
LOC: ER 15:49 → MEDSURG 18:45
PROVIDERS: Physician Assistant; Admitting Provider Internal Medicine; Emergency Provider Family Medicine; PCP Family Medicine; Visit Provider Internal Medicine
DX: K56.600 Partial intestinal obstruction, unspecified as to cause (principal); E46 Unspecified protein-calorie malnutrition; Z90.49 Acquired absence of other specified parts of digestive tract; Z79.01 Long term (current) use of anticoagulants; I48.0 Paroxysmal atrial fibrillation; I50.9 Heart failure, unspecified; I11.0 Hypertensive heart disease with heart failure; E11.9 Type 2 diabetes mellitus without complications; F41.1 Generalized anxiety disorder; K21.9 Gastro-esophageal reflux disease without esophagitis; M48.062 Spinal stenosis, lumbar region with neurogenic claudication; Z86.14 Personal history of Methicillin resistant Staphylococcus aureus infection; I25.2 Old myocardial infarction; Z87.891 Personal history of nicotine dependence; Z66 Do not resuscitate; Z68.25 Body mass index [BMI] 25.0-25.9, adult; M54.50 Low back pain, unspecified; E86.0 Dehydration
CPT/HCPCS: 36415; 71045; 74018; 74022; 74174; 74176; 80048; 80053; 81001; 83605; 83690; 83735; 85025; 96372; 96374; 99285; G0378; J1650; J2270; J7042; Q9967

== ENCOUNTER 2022-11-11 02:19 | Inpatient (IN) | payer MEDICARE, OTHER, SELFPAY ==
[2022-11-11] VITALS (9 sets, daily range): BP systolic 106–192; BP diastolic 54–99; PULSE 63–95; RESP 16–20; TEMP 36.3–37.1; O2SAT 92–98; BMI 29.2
--- NOTE | 2022-11-11 02:22 | CTR_ITS ---
PROCEDURE INFORMATION: Exam: CT Abdomen And Pelvis With Contrast Exam date and time: 11/11/2022 2:53 AM Age: 77 years old Clinical indication: Abdominal pain; Generalized; Prior surgery; Surgery date: 6+ months; Surgery type: Gb. Hernia repair. Colectomy. Hysterectomy. Patient HX: C/O diffuse abd pain. History of recurrent sbo. TECHNIQUE: Imaging protocol: Computed tomography of the abdomen and pelvis with contrast. Radiation optimization: All CT scans at this facility use at least one of these dose optimization techniques: automated exposure control; mA and/or kV adjustment per patient size (includes targeted exams where dose is matched to clinical indication); or iterative reconstruction. Contrast material: OMNI 350; Contrast volume: 100 ml; Contrast route: INTRAVENOUS (IV); REPORTING DATA: Count of CT and Cardiac NM exams in prior 12 months: This patient has received 5 known CTs and 0 known cardiac nuclear medicine studies in the 12 months prior to the current study. COMPARISON: CT abdomen pelvis wo con [id number] 07/16/2022 2:09 PM RADIATION DOSE METRICS: Total DLP (mGy-cm): 458.78 FINDINGS: Liver: Normal. No mass. Gallbladder and bile ducts: Status post cholecystectomy. Pancreas: Normal. No ductal dilation. Spleen: Normal. No splenomegaly. Adrenal glands: Normal. No mass. Kidneys and ureters: Normal. No hydronephrosis. Stomach and bowel: There are multiple dilated small loops containing fluid and air fluid levels compatible with a small-bowel obstruction. The transition is indeterminate. Appendix: The appendix is visualized in the current examination and may be surgically removed. Intraperitoneal space: Unremarkable. No free air. No significant fluid collection. Vasculature: Unremarkable. No abdominal aortic aneurysm. Lymph nodes: Unremarkable. No enlarged lymph nodes. Urinary bladder: Unremarkable as visualized. Reproductive: Status post hysterectomy Bones/joints: Unremarkable. No acute fracture. Soft tissues: Unremarkable. CT/CT abdomen pelvis w con* [id number] IMPRESSION: Dilated small bowel loops containing fluid and air fluid levels compatible with a recurrence small-bowel obstruction. The transition is indeterminate.
--- NOTE | 2022-11-11 02:22 | W.ED.ABDPA2 ---
HPI - Abdominal Pain General: Chief Complaint: Abdominal Pain Stated Complaint: Abd Pain Time Seen by Provider: 11/11/22 02:21 Source: patient and EMS Mode of arrival: EMS Limitations: no limitations History of Present Illness: 77-year-old female who states she been having abdominal pain throughout the day. States pain is diffuse and sharp rates it a 7 out of 10 currently she has had a history of multiple abdominal surgeries in the past along with bowel obstructions. She states this feels like a bowel obstruction she states she had nausea no vomiting did have a bowel movement early this morning denies any fevers denies any worsening proving factors. Associated Symptoms: Reports nausea; Denies chills, diarrhea, dysuria, fever(s) and vomiting Review of Systems Const: Denies: fever(s) or chills ENMT: Denies: throat pain or dental pain Card: Denies: chest pain Resp: Denies: dyspnea GI: Reports: abdominal pain and nausea; Denies: vomiting or diarrhea : Denies: dysuria Musc: Denies: neck pain or back pain Skin/Breast: Denies: rash Neuro: Denies: headache(s) PFSH ED PFSH: Medical History Atrial fibrillation Chronic nausea Colonic diverticular abscess Congestive heart failure Coronary disease Discitis, unspecified, lumbar region DM II (diabetes mellitus, type II), controlled GUILLAUME (generalized anxiety disorder) GERD (gastroesophageal reflux disease) Gout Hx SBO Hypertension Low back pain at multiple sites Lumbar stenosis with neurogenic claudication Migraine MRSA bacteremia Myopericarditis Necrotizing fasciitis Non-ST elevation ND (NSTEMI) Osteoarthritis Pain of both breasts Pericarditis Protein-energy malnutrition Scleroderma Small bowel obstruction Surgical History H/O colectomy H/O hernia repair History of delivery History of cholecystectomy History of neck surgery S/P dilatation of esophageal stricture S/P ANH-BSO Family History Mother Congestive heart failure Social History Smoking and tobacco status: former smoker Alcohol intake: never Substance/Drug Use: never Lives independently: No Household members: spouse Marital status: Physical Exam Const: COMMON NORMALS: no acute distress, patient oriented x3 and healthy appearing HENMT: COMMON NORMALS: normocephalic and atraumatic HEAD & SCALP: normocephalic and atraumatic Neck/C-Spine: COMMON NORMALS: full ROM and supple Chest: COMMONS NORMALS: normal inspection of the chest and normal palpation of entire chest wall Resp: COMMON NORMALS: normal respiratory effort, No retractions, No use of accessory muscles and clear to auscultation bilaterally AUSCULTATION: clear to auscultation bilaterally Cardio: COMMON NORMALS: regular rate, regular rhythm and No murmurs present (Cardio) RATE: regular rate RHYTHM: regular rhythm GI: COMMON NORMALS: Normal to inspection, nondistended, normoactive bowel sounds present and no masses OTHER: diffuse tenderness with multiple abdominal scars Extremity: COMMON NORMALS: normal to inspection and full ROM Neuro: COMMON NORMALS: patient oriented x3, moves all extremities and no focal motor deficits Psych: COMMON NORMALS: mental status grossly normal, Normal thought process present and cooperative THOUGHT PROCESS: Normal thought process present Skin: COMMON NORMALS: no rashes or lesions noted and no wounds GENERAL SKIN EXAM: no rashes or lesions noted Course Vital Signs: Vital signs: Vital Signs Temperature 98.8 F 11/11/22 02:20 Pulse Rate 71 11/11/22 03:06 Respiratory Rate 18 11/11/22 03:06 Blood Pressure 138/54 11/11/22 03:06 Pulse Oximetry 98 11/11/22 03:06 Oxygen Delivery Me thod Room Air 11/11/22 03:06 MDM - Abdominal Pain Medical Decision Making Patient presents with abdominal pain obstruction will admit at this time we will place a G-tube spoke to the hospitalist. Lab Data 11/11/22 02:40 11/11/22 02:40 Labs/Radiology: Radiology Impressions Abdomen/Pelvis CT 11/11/22 02:22 IMPRESSION: Dilated small bowel loops containing fluid and air fluid levels compatible with a recurrence small-bowel obstruction. The transition is indeterminate. Laboratory Results WBC 8.57 10^3/uL (3.29-11.43) 11/11/22 02:40 RBC 4.95 10^6/uL (3.85-5.65) 11/11/22 02:40 Hgb 15.00 g/dL (11.27-16.99) 11/11/22 02:40 Hct 44.7 % (36-47) 11/11/22 02:40 MCV 90.3 fl (85-98) 11/11/22 02:40 MCH 30.3 pg (27-33) 11/11/22 02:40 MCHC 33.6 g/dL (30-55) 11/11/22 02:40 RDW 12.9 % (12.1-15.1) 11/11/22 02:40 Plt Count 193 10^3/cmm (157-399) 11/11/22 02:40 MPV 10.8 fL (7.4-10.4) H 11/11/22 02:40 Neut % (Auto) 67.4 % 11/11/22 02:40 Lymph % (Auto) 21.2 % 11/11/22 02:40 [place] % (Auto) 7.1 % 11/11/22 02:40 Eos % (Auto) 3.4 % 11/11/22 02:40 Baso % (Auto) 0.5 % 11/11/22 02:40 Neut # (Auto) 5.78 10^3/uL (1.8-7.7) 11/11/22 02:40 Lymph # (Auto) 1.8 10^3/uL (0.8-4.8) 11/11/22 02:40 [place] # (Auto) 0.6 10^3/uL (0.2-0.9) 11/11/22 02:40 Eos # (Auto) 0.3 10^3/uL (0.0-0.8) 11/11/22 02:40 Baso # (Auto) 0.0 10^3/uL (0.0-0.1) 11/11/22 02:40 Nucleated RBC % (auto) 0 % 11/11/22 02:40 Nucleated RBCs # 0.0 /100WBC 11/11/22 02:40 Sodium 144 mmol/L (136-145) 11/11/22 02:40 Potassium 3.5 mmol/L (3.5-5.1) 11/11/22 02:40 Chloride 104 mmol/L (98-107) 11/11/22 02:40 Carbon Dioxide 31 mmol/L (22-29) H 11/11/22 02:40 Anion Gap 12.5 (5-19) 11/11/22 02:40 BUN 15 mg/dL (8-23) 11/11/22 02:40 Creatinine 0.6 mg/dL (0.5-0.9) 11/11/22 02:40 GFR Calculation Not Reportable 11/11/22 02:40 Glucose 138 mg/dL (65-115) H 11/11/22 02:40 Calculated Osmolality 301 mOsm/kg (285-295) H 11/11/22 02:40 Lactic Acid 1.8 mmol/L (0.5-2.2) 11/11/22 02:40 Calcium 9.5 mg/dL (8.5-10.5) 11/11/22 02:40 Total Bilirubin 0.8 mg/dL (0.15-1.2) 11/11/22 02:40 AST 34 U/L (0-32) H 11/11/22 02:40 ALT 29 U/L (0-33) 11/11/22 02:40 Alkaline Phosphatase 85 U/L (35-105) 11/11/22 02:40 Total Protein 6.7 g/dL (6.6-8.7) 11/11/22 02:40 Albumin 4.4 g/dL (3.5-5.2) 11/11/22 02:40 Globulin 2.3 g/dL (1.3-4.6) 11/11/22 02:40 Lipase 33 U/L (13-60) 11/11/22 02:40 Urine Color Colorless (Yellow) 11/11/22 02:52 Urine Appearance Clear (CLEAR) 11/11/22 02:52 Urine pH 8 (5-7) H 11/11/22 02:52 Ur Specific [place] 1.015 (1.005-1.030) 11/11/22 02:52 Urine Protein Neg (Negative) 11/11/22 02:52 Urine Glucose (UA) Norm (Normal) 11/11/22 02:52 Urine Ketones Negative (Negative) 11/11/22 02:52 Urine Blood 2+ (Negative) H 11/11/22 02:52 Urine Nitrate Negative (Negative) 11/11/22 02:52 Urine Bilirubin Neg (Negative) 11/11/22 02:52 Urine Urobilinogen Neg mg/dL (Negative) 11/11/22 02:52 Ur Leukocyte Esterase Negative (Negative) 11/11/22 02:52 Urine RBC 5-10 /hpf (0-2) H 11/11/22 02:52 Urine WBC Rare /hpf (0-5) 11/11/22 02:52 Ur Squamous Epith Cells 0-4 /hpf (0-5) H 11/11/22 02:52 Amorphous Sediment Not Reportable 11/11/22 02:52 Urine Bacteria None /hpf (NONE) 11/11/22 02:52 Discharge Plan Discharge Patient Disposition: Admitted As Inpatient Clinical Impression: Partial small bowel obstruction Condition: Stable Prescriptions: No Action Eliquis 5 mg tablet 5 mg PO BID Qty: 180 3RF carvedilol 12.5 mg tablet 12.5 mg PO QAM Qty: 90 1RF amlodipine 2.5 mg tablet 2.5 mg PO DAILY Qty: 90 1RF ondansetron HCl 8 mg tablet 8 mg PO TID PRN (Reason: Nausea And Vomiting) Prevagen 1 cap PO DAILY carvedilol 6.25 mg tablet 6.25 mg PO QPM buspirone 5 mg tablet 5 mg PO TID PRN (Reason: Anxiety) magnesium hydroxide [Milk of Magnesia] 400 mg/5 mL suspension 1,200 mg PO QID PRN (Reason: constipation) Qty: 355 0RF polyethylene glycol 3350 [Miralax] 17 gram/dose powder 4 g PO BID Qty: 238 0RF Referrals: Baldomero Britt MD [Primary Care Provider] - Coding Level of Care Code ED Telecom Analyst for g Kin
[2022-11-11 02:49] LABS: Basophils % 0.5 %; Eosinophils # 0.3 10^3/uL (0.0-0.8); Eosinophils % 3.4 %; Hematocrit 44.7 % (36-47); Lymphocytes # 1.8 10^3/uL (0.8-4.8); Lymphocytes % 21.2 %; Mean Corpuscular HGB Conc 33.6 g/dL (30-55); Mean Corpuscular Hemoglobin 30.3 pg (27-33); Mean Corpuscular Volume 90.3 fl (85-98); Mean Platelet Volume 10.8 fL (7.4-10.4); Monocytes # 0.6 10^3/uL (0.2-0.9); Monocytes % 7.1 %; Neutrophils # 5.78 10^3/uL (1.8-7.7); Neutrophils % 67.4 %; Nucleated Red Blood Cells % 0 %; Platelet Count 193 10^3/cmm (157-399); Red Blood Count 4.95 10^6/uL (3.85-5.65); Red Cell Distribution Width 12.9 % (12.1-15.1); White Blood Count 8.57 10^3/uL (3.29-11.43)
[2022-11-11] MEDS: iohexol 350 mg/mL 500 mL Btl (per mL) IV (02:54)
[2022-11-11] MEDS: sodium chloride 0.9% 1,000 ML 999 ML IV (03:01)
[2022-11-11] MEDS: ondansetron 2 mg/ML SDV 2 mL 4 MG IVP (03:03)
[2022-11-11 03:05] LABS: Add Urine Microscopic? YES; Bilirubin Urine Neg (Negative); Blood Urine 2+ (Negative); Glucose Urine UA Norm (Normal); Ketones Urine Negative (Negative); Leukocyte Esterase Urine Negative (Negative); Nitrate Urine Negative (Negative); Protein Urine Neg (Negative); Specific Gravity, Urine 1.015 (1.005-1.030); Urine Appearance Clear (CLEAR); Urine Color Colorless (Yellow); Urobilinogen Urine Neg (Negative); pH Urine 8 (5-7)
[2022-11-11 03:06] LABS: Add Urine Culture? No; Squamous Epithelial Cell Urine 0-4 /hpf (0-5); WBC Urine RARE /hpf (0-5)
[2022-11-11 03:11] LABS: Alanine Aminotransferase 29 U/L (0-33); Albumin Level 4.4 g/dL (3.5-5.2); Alkaline Phosphatase 85 U/L (35-105); Anion Gap 12.5 (5-19); Aspartate Amino Transferase 34 U/L (0-32); Blood Urea Nitrogen 15 mg/dL (8-23); Calcium 9.5 mg/dL (8.5-10.5); Carbon Dioxide 31 mmol/L (22-29); Chloride 104 mmol/L (98-107); Creatinine Clr Calc Pharmacy 56.6792; Globulin 2.3 g/dL (1.3-4.6); Glucose 138 mg/dL (65-115); Lactic Sepsis W/Reflex 1.8 mmol/L (0.5-2.2); Lipase 33 U/L (13-60); Osmolality Calculated 301 mOsm/kg (285-295); Potassium 3.5 mmol/L (3.5-5.1); Sodium 144 mmol/L (136-145); Total Bilirubin 0.8 mg/dL (0.15-1.2); Total Protein 6.7 g/dL (6.6-8.7)
[2022-11-11] MEDS: diphenhydrAMINE 50 mg/mL SDV 1mL 25 MG IVP (04:06)
[2022-11-11] MEDS: metoclopramide 5 mg/mL SDV 2 mL IVP (04:06)
--- NOTE | 2022-11-11 04:52 | XRR_ITS ---
PROCEDURE INFORMATION: Exam: XR Chest Exam date and time: 11/11/2022 4:56 AM Age: 77 years old Clinical indication: Device placement; Ng tube; Prior surgery; Surgery date: 6+ months; Surgery type: Gb; Patient HX: Check S/P ng placement; Additional info: Ng tube placement TECHNIQUE: Imaging protocol: Radiologic exam of the chest. Views: 1 view. COMPARISON: CR XR chest 1V portable [id number] 07/16/2022 6:22 PM FINDINGS: Tubes, catheters and devices: A nasogastric tube is placed with its tip in the proximal stomach. Proximal side port is at the gastroesophageal junction. Lungs: There is a background of emphysema and pulmonary fibrosis. Pleural spaces: Unremarkable. No pleural effusion. No pneumothorax. Heart/Mediastinum: Unremarkable. No cardiomegaly. Bones/joints: Unremarkable. XR/XR chest 1V portable [id number] IMPRESSION: Nasogastric tube tip in proximal stomach with the proximal side port at the level of the gastroesophageal junction.
[2022-11-11] MEDS: cetacaine Spray 5 gm Can 1 SPRAY XX (04:58)
[2022-11-11] MEDS: ondansetron 2 mg/ML SDV 2 mL 8 MG IVP ×2 (05:39→06:08)
--- NOTE | 2022-11-11 05:44 | P.HP_ITS ---
Providers/Chief Complaint Admitting Physician: Alan Soto DO Primary Care Provider: Baldomero Britt MD Chief Complaint: Abd Pain History of Present Illness Anju Duffy is a 77 year old female with recurrent small bowel obstruction due to multiple surgeries stemming from a hernia repair approximately 6 years ago. She presents with sudden onset abdominal pain followed by vomiting. In the emergency room she is found to have small bowel obstruction. Was placed and she is admitted to the hospital for supportive care.She is seen on the floor and actively vomiting despite NG tube. Patient provides history of mesh placement approximately 6 years ago followed by repeated small bowel obstructions due to bowel adhering to the mesh. At 1 point patient had an ostomy. This was revised. Over the course of several years patient has lost over 100 pounds. She has a very limited diet at this point which she supplements with Ensure +4-5 times a day. She remains very active walking 3 to 4 miles a day with her . Review of Systems Const: Denies: fever(s) or chills Eyes: Denies: change in vision ENMT: Denies: throat pain or nasal congestion Card: Denies: chest pain or palpitations Resp: Denies: dyspnea or productive cough GI: Reports: abdominal pain, nausea and vomiting; Denies: change in stool character : Denies: dysuria Musc: Denies: back pain or extremity pain Skin/Breast: Denies: rash or lesions Neuro: Denies: headache(s) or dizziness Psych: Denies: anxiety or depression [place]/Lymph: Denies: easy bruising or easy bleeding Medications/Allergies Home Medications Medication Instructions Recorded Confirmed Last Taken Type ondansetron HCl 8 mg tablet 8 mg PO TID PRN Nausea And Vomiting 03/21/21 07/16/22 11/09/21 History Prevagen 1 cap PO DAILY 06/07/21 07/16/22 07/16/22 History buspirone 5 mg tablet 5 mg PO TID PRN Anxiety 11/10/21 07/16/22 11/09/21 History magnesium hydroxide 400 mg/5 mL 1,200 mg (15 mL) PO QID PRN 11/11/21 07/16/22 11/11/21 Rx oral suspension (Milk of Magnesia) constipation #355 mL apixaban 5 mg tablet (Eliquis) 5 mg PO BID #180 tabs 05/03/22 07/16/22 07/16/22 Rx polyethylene glycol 3350 17 4 g PO BID #238 grams 06/27/22 07/16/22 07/16/22 Rx gram/dose oral powder (Miralax) carvedilol 12.5 mg tablet 12.5 mg PO QAM #90 tabs 07/06/22 07/16/22 07/16/22 Rx carvedilol 6.25 mg tablet 6.25 mg PO QPM 07/16/22 07/16/22 07/15/22 History amlodipine 2.5 mg tablet 2.5 mg PO DAILY #90 tabs 09/17/22 Unknown Rx Allergies Allergy/AdvReac Type Severity Reaction Status Date / Time Latex, Natural Rubber Allergy ALGY-Rash Verified 07/16/22 14:19 olanzapine [From Zyprexa] Allergy hallucinati Verified 07/16/22 14:19 ons/agitate d lorazepam [From Ativan] AdvReac hallucination, Verified 07/16/22 14:19 agitated PFSH Acute PFSH: Medical History (Updated 11/11/22 @ 05:56 by Alan Soto DO) Atrial fibrillation Chronic nausea Colonic diverticular abscess Congestive heart failure Coronary disease Discitis, unspecified, lumbar region DM II (diabetes mellitus, type II), controlled GUILLAUME (generalized anxiety disorder) GERD (gastroesophageal reflux disease) Gout Hx SBO Hypertension Low back pain at multiple sites Lumbar stenosis with neurogenic claudication Migraine MRSA bacteremia Myopericarditis Necrotizing fasciitis Non-ST elevation [place] (NSTEMI) Osteoarthritis Pain of both breasts Pericarditis Protein-energy malnutrition Scleroderma Small bowel obstruction Surgical History H/O colectomy H/O hernia repair History of delivery History of cholecystectomy History of neck surgery S/P dilatation of esophageal stricture S/P ANH-BSO Family History Mother Congestive heart failure Social History Smoking and tobacco status: former smoker Alcohol intake: never Substance/Drug Use: never Lives independently: No Household members: spouse Marital status: Vitals/I&O/Wt Last Vital Signs Temp 98.8 F 11/11/22 02:20 Pulse 82 11/11/22 05:03 Resp 20 H 11/11/22 05:03 BP 153/99 11/11/22 05:03 Pulse Ox 98 11/11/22 05:03 O2 Del Method Room Air 11/11/22 05:03 Weight last 48 hrs Weight 72.575 kg Physical Exam Narrative: 77-year-old female frail appearing, in moderate distress due to abdominal pain and vomiting. Neurologic: Patient is alert and oriented x3 and is nonfocal HEENT: Head is normocephalic and atraumatic pupils equal round reactive to light and accommodation extraocular muscles are intact. Patient is wearing glasses. Nasopharyngeal mucosa moist and pink the tube is in place in the right nare neck is supple no JVD carotid bruits or lymphadenopathy Chest: Rises symmetrically with inspiration Heart: Regular normal S1-S2 without murmurs clicks gallops or rubs Lungs: Clear to auscultation without wheezes rales or rhonchi Abdomen: Soft occasional bowel sounds present plus the NG tube to suction. Diffusely tender. Nondistended Extremities: No clubbing cyanosis or edema Lymph: No lymphadenopathy palpable Psych: Normal mood and affect Skin: Warm and dry to touch no lesions or rashes noted Data 11/11/22 02:40 11/11/22 02:40 CT Abd/Pel: Radiologist's impression: small bowel obstruction CXR: Radiologist's impression: IMPRESSION: Nasogastric tube tip in proximal stomach with the proximal side port at the level of the gastroesophageal junction. A&P Assessment and plan (1) Small bowel obstruction: Admit for conservative management. NG tube. IV fluids. Correction of electrolytes. Nausea and pain control. (2) Hypertension: N.p.o. for now. Can consider metoprolol 5 mg IV every 6 hours scheduled if blood pressure continues to be elevated. (3) Hx SBO: Long history of multiple surgeries starting approximately 6 years ago with a hernia repair with mesh. She has had 6-8 major surgery since then. At what po int she was on TPN for 15 months. But she reports that she has been doing quite well for few months. Please note her last admission to our hospital was in July 2022. Attestations Medical Necessity Statement*: For concernAdmission for small bowel obstruction. Care is expected to cross 2 midnights of management of small bowel obstruction Coding Level of Care Code Acute Code for Chg Fwd Diagnoses Small bowel obstruction K56.609 Hypertension I10 Hx SBO Z87.19
[2022-11-11] MEDS: morphine 4 mg/mL SDV 1 mL IVP (06:08)
[2022-11-11 06:16] LABS: Magnesium 2.3 mg/dL (1.7-2.3)
--- NOTE | 2022-11-11 06:17 | PC.NURSE ---
Dr. Soto notified that patient had a total of 20 mg of Zofran and 5 of Reglan and is still having dry heaving. NG hooked to suction and having output. PRN Compazine ordered.
[2022-11-11] MEDS: famotidine 20 mg/2 mL INJ IVP ×2 (06:21→17:22)
--- NOTE | 2022-11-11 06:35 | PC.NURSE ---
Home medications verified via verbally with patient.
[2022-11-11] MEDS: sodium chloride 0.9% 1,000 ML 150 ML IV (07:16)
[2022-11-11] MEDS: heparin 5,000 unit/mL INJ 1 mL 5000 UNIT SUBCUT ×2 (07:17→17:22)
[2022-11-11] MEDS: dextrose 5%-ns 0.45% + KCl 40 1,000 ML 75 MEQ IV ×2 (07:24→21:23)
--- NOTE | 2022-11-11 16:21 | XRR_ITS ---
PROCEDURE INFORMATION: Exam: XR Chest Exam date and time: 11/11/2022 4:53 PM Age: 77 years old Clinical indication: Device placement; Ng tube; Additional info: Ng placement TECHNIQUE: Imaging protocol: Radiologic exam of the chest. Views: 1 view. COMPARISON: CR (CHEST, ) 11/11/2022 4:56 AM FINDINGS: Tubes, catheters and devices: Enteric tube tip seen in the region of the neck, repositioning advised. Lungs: Unremarkable. No consolidation. Pleural spaces: Unremarkable. No pleural effusion. No pneumothorax. Heart/Mediastinum: Unremarkable. No cardiomegaly. Bones/joints: Unremarkable. XR/XR chest 1V portable [id number] IMPRESSION: Enteric tube tip seen in the region of the neck, repositioning advised.
--- NOTE | 2022-11-11 16:46 | P.EN_ITS ---
Event Note Event Note: Patient admitted this morning by help desk engineer. Chart reviewed. Agree with plan of care.
--- NOTE | 2022-11-11 16:46 | W.PM.EVENTAC ---
Event Note Event Note: Patient admitted this morning by national secretary. Chart reviewed. Agree with plan of care.
[2022-11-12] VITALS: BP 145/74; PULSE 68; RESP 18; TEMP 36.4; O2SAT 94
[2022-11-12 04:00] VITALS: BP 139/63; PULSE 71; RESP 17; TEMP 36.4; O2SAT 95
[2022-11-12 05:00] LABS: Basophils % 0.3 %; Eosinophils # 0.2 10^3/uL (0.0-0.8); Eosinophils % 1.3 %; Hematocrit 41.2 % (36-47); Lymphocytes # 2.6 10^3/uL (0.8-4.8); Mean Corpuscular HGB Conc 31.3 g/dL (30-55); Mean Corpuscular Hemoglobin 30.9 pg (27-33); Mean Corpuscular Volume 98.8 fl (85-98); Mean Platelet Volume 10.9 fL (7.4-10.4); Monocytes # 0.9 10^3/uL (0.2-0.9); Monocytes % 8.1 %; Neutrophils # 7.85 10^3/uL (1.8-7.7); Nucleated Red Blood Cells % 0 %; Platelet Count 165 10^3/cmm (157-399); Red Blood Count 4.17 10^6/uL (3.85-5.65); Red Cell Distribution Width 13.4 % (12.1-15.1); White Blood Count 11.57 10^3/uL (3.29-11.43)
[2022-11-12 05:16] LABS: Albumin Level 3.6 g/dL (3.5-5.2); Anion Gap 11.5 (5-19); Blood Urea Nitrogen 15 mg/dL (8-23); Calcium 8.3 mg/dL (8.5-10.5); Carbon Dioxide 24 mmol/L (22-29); Chloride 110 mmol/L (98-107); Creatinine Clr Calc Pharmacy 56.6792; Glucose 95 mg/dL (65-115); Magnesium 2.2 mg/dL (1.7-2.3); Phosphorus 2.8 mg/dL (2.5-4.5); Potassium 4.5 mmol/L (3.5-5.1); Sodium 141 mmol/L (136-145)
[2022-11-12] MEDS: heparin 5,000 unit/mL INJ 1 mL 5000 UNIT SUBCUT (06:07)
[2022-11-12] MEDS: famotidine 20 mg/2 mL INJ IVP (06:42)
[2022-11-12 07:45] VITALS: BP 121/63; PULSE 65; RESP 16; TEMP 36.4; O2SAT 95
[2022-11-12] MEDS: ketorolac 30 mg/mL INJ IVP (09:37)
[2022-11-12] MEDS: dextrose 5%-ns 0.45% + KCl 40 1,000 ML 75 MEQ IV (10:25)
[2022-11-12 11:04] LABS: Iron 86 ug/dL (37-145); Percent Saturation 33.4 % (20-50); Total Iron Binding Capacity 257 mcg/dl; Unsaturated Iron Binding 171 ug/dL (112-347)
[2022-11-12 11:18] LABS: Estmated Average Glucose 108; Hemoglobin A1C 5.4 % (4.0-6.0)
[2022-11-12 11:21] LABS: Vitamin B12 321 pg/mL (232-1245)
[2022-11-12 11:33] LABS: Thyroid Stimulating Hormone 0.85 uIU/mL (0.27-4.20)
--- NOTE | 2022-11-12 11:33 | XRR_ITS ---
PROCEDURE INFORMATION: Exam: XR Complete Acute Abdomen Series Including Chest Exam date and time: 11/12/2022 11:53 AM Age: 77 years old Clinical indication: Other: Sbo; Prior surgery; Surgery date: 6+ months; Surgery type: Gb TECHNIQUE: Imaging protocol: Radiologic exam. Complete acute abdomen series, including 2 or more views of the abdomen and a single view chest. COMPARISON: CT abdomen pelvis w con* [id number] 11/11/2022 2:53 AM FINDINGS: Lungs: No consolidation. Pleural spaces: Normal. No pleural effusions. No pneumothorax. Heart/Mediastinum: Normal. No cardiomegaly. Gastrointestinal tract: No air-filled dilated bowel loops or evidence of bowel thickening. Intraperitoneal space: No evidence of free air. Vasculature: Aortic arch calcification. Bones/joints: Mild degenerative changes along the spine and shoulders. Soft tissues: Multiple abdominal surgical clips and mesh plugs. XR/XR acute abdomen series [id number] IMPRESSION: No acute findings.
[2022-11-12 12:00] VITALS: BP 154/77; PULSE 65; RESP 17; TEMP 36.6; O2SAT 97
[2022-11-12] MEDS: dextrose 5%-sod chloride 0.45% 1,000 ML 50 ML IV (12:07)
[2022-11-12] MEDS: cyanocobalamin 1,000 mcg/mL SDV 1000 MCG IM (12:14)
[2022-11-12] MEDS: ondansetron 2 mg/ML SDV 2 mL 8 MG IVP (12:14)
[2022-11-12] MEDS: enoxaparin 80 mg/0.8 mL Syringe 70 MG SUBCUT (12:14)
--- NOTE | 2022-11-12 12:20 | PM.DCS ---
Discharge Providers Date of Admission: 11/11/22 04:20 Date of Discharge: November 12, 2022 Attending Provider at Admission: Aaln Soto DO Attending Provider at Discharge: Evans Aquino MD Primary Care Provider: Baldomero Britt MD Diagnoses at Discharge Discharge Diagnosis (1) Small bowel obstruction: Status: Acute (2) Hypertension: Status: Acute (3) Hx SBO: Status: Acute Reason for Visit Reason for Visit: Abd Pain Brief History: History as per HPI: Anju Duffy is a 77 year old female with recurrent small bowel obstruction due to multiple surgeries stemming from a hernia repair approximately 6 years ago.? She presents with sudden onset abdominal pain followed by vomiting.? In the emergency room she is found to have small bowel obstruction.? Was placed and she is admitted to the hospital for supportive care.She is seen on the floor and actively vomiting despite NG tube. Patient provides history of mesh placement approximately 6 years ago followed by repeated small bowel obstructions due to bowel adhering to the mesh.? At 1 point patient had an ostomy.? This was revised.? Over the course of several years patient has lost over 100 pounds.? She has a very limited diet at this point which she supplements with Ensure +4-5 times a day.? She remains very active walking 3 to 4 miles a day with her . Hospital Course Hospital Course Patient was admitted to the hospital further evaluation and management of recurrent small bowel obstruction. She was treated conservatively with NG tube placement and n.p.o. Her diet was gradually advanced. She tolerated clear liquid well and repeat abdominal x-ray showed resolution of small bowel obstruction. Patient hospitalization was otherwise unremarkable. Goals of care discussions were done in detail with the patient. Patient stated given her baseline health, multiple health issues, baseline functional capacity she does not want to be resuscitated in case of an adverse event. She has been discharged in hemodynamically stable condition on clear liquid diet with adequate advised to advance to full liquid and brat diet gradually within next 2 weeks. She is advised to take multiple small meals. Discharge note discussed in detail with patient and patient's spouse at bedside. Physical Exam Narrative: 77-year-old female frail appearing, in moderate distress due to abdominal pain and vomiting. Neurologic: Patient is alert and oriented x3 and is nonfocal HEENT: Head is normocephalic and atraumatic pupils equal round reactive to light and accommodation extraocular muscles are intact. Patient is wearing glasses. Nasopharyngeal mucosa moist and pink the tube is in place in the right nare neck is supple no JVD carotid bruits or lymphadenopathy Chest: Rises symmetrically with inspiration Heart: Regular normal S1-S2 without murmurs clicks gallops or rubs Lungs: Clear to auscultation without wheezes rales or rhonchi Abdomen: Soft occasional bowel sounds present plus the NG tube to suction. Diffusely tender. Nondistended Extremities: No clubbing cyanosis or edema Lymph: No lymphadenopathy palpable Psych: Normal mood and affect Skin: Warm and dry to touch no lesions or rashes noted Discharge Data Studies Completed and Pending Completed Studies During Hospitalization Category Date Time Status CT abdomen pelvis w con* [id number] Stat Cat Scan 11/11/22 02:22 Completed XR acute abdomen series [id number] Routine Exams 11/12/22 11:33 Completed XR chest 1V portable [id number] Stat Exams 11/11/22 04:52 Completed XR chest 1V portable [id number] Stat Exams 11/11/22 16:21 Completed Pending at discharge Category Date Time Status Complete Blood Count w/Auto AM LABS Lab 11/13/22 04:00 Ordered Comprehensive Metabolic Panel AM LABS Lab 11/13/22 04:00 Ordered Folate Level AM LABS Lab 11/13/22 04:00 Ordered Lipid Profile w/VLDL Routine Lab 11/13/22 04:00 Ordered Radiology Impressions Abdomen/Pelvis CT 11/11/22 02:22 IMPRESSION: Dilated small bowel loops containing fluid and air fluid levels compatible with a recurrence small-bowel obstruction. The transition is indeterminate. Chest X-Ray 11/11/22 16:21 IMPRESSION: Enteric tube tip seen in the region of the neck, repositioning advised. ADDENDUM: 11/11/22 181 THIS REPORT CONTAINS FINDINGS THAT MAY BE CRITICAL TO PATIENT CARE. Dr Nicholas has seen report and has no questions at 6:10 PM CDT on 11/11/2022. Chest/Abdomen X-ray 11/12/22 11:33 IMPRESSION: No acute findings. Laboratory Results WBC 11.57 10^3/uL (3.29-11.43) H 11/12/22 04:08 RBC 4.17 10^6/uL (3.85-5.65) 11/12/22 04:08 Hgb 12.90 g/dL (11.27-16.99) 11/12/22 04:08 Hct 41.2 % (36-47) 11/12/22 04:08 MCV 98.8 fl (85-98) H 11/12/22 04:08 MCH 30.9 pg (27-33) 11/12/22 04:08 MCHC 31.3 g/dL (30-55) D 11/12/22 04:08 RDW 13.4 % (12.1-15.1) 11/12/22 04:08 Plt Count 165 10^3/cmm (157-399) 11/12/22 04:08 MPV 10.9 fL (7.4-10.4) H 11/12/22 04:08 Neut % (Auto) 68.0 % 11/12/22 04:08 Lymph % (Auto) 22.0 % 11/12/22 04:08 [place] % (Auto) 8.1 % 11/12/22 04:08 Eos % (Auto) 1.3 % 11/12/22 04:08 Baso % (Auto) 0.3 % 11/12/22 04:08 Neut # (Auto) 7.85 10^3/uL (1.8-7.7) H 11/12/22 04:08 Lymph # (Auto) 2.6 10^3/uL (0.8-4.8) 11/12/22 04:08 [place] # (Auto) 0.9 10^3/uL (0.2-0.9) 11/12/22 04:08 Eos # (Auto) 0.2 10^3/uL (0.0-0.8) 11/12/22 04:08 Baso # (Auto) 0.0 10^3/uL (0.0-0.1) 11/12/22 04:08 Nucleated RBC % (auto) 0 % 11/12/22 04:08 Nucleated RBCs # 0.0 /100WBC 11/12/22 04:08 Sodium 141 mmol/L (136-145) 11/12/22 04:08 Potassium 4.5 mmol/L (3.5-5.1) 11/12/22 04:08 Chloride 110 mmol/L (98-107) H 11/12/22 04:08 Carbon Dioxide 24 mmol/L (22-29) 11/12/22 04:08 Anion Gap 11.5 (5-19) 11/12/22 04:08 BUN 15 mg/dL (8-23) 11/12/22 04:08 Creatinine 0.5 mg/dL (0.5-0.9) 11/12/22 04:08 GFR Calculation Not Reportable 11/12/22 04:08 Glucose 95 mg/dL (65-115) 11/12/22 04:08 Estimat Average Glucose 108 11/12/22 04:08 Hemoglobin A1c 5.4 % (4.0-6.0) 11/12/22 04:08 Calculated Osmolality 301 mOsm/kg (285-295) H 11/11/22 02:40 Lactic Acid 1.8 mmol/L (0.5-2.2) 11/11/22 02:40 Calcium 8.3 mg/dL (8.5-10.5) L 11/12/22 04:08 Phosphorus 2.8 mg/dL (2.5-4.5) 11/12/22 04:08 Magnesium 2.2 mg/dL (1.7-2.3) 11/12/22 04:08 Iron 86 ug/dL (37-145) 11/12/22 04:08 TIBC 257 mcg/dl 11/12/22 04:08 % Saturation 33.4 % (20-50) 11/12/22 04:08 Unsat Iron Binding 171 ug/dL (112-347) 11/12/22 04:08 Total Bilirubin 0.8 mg/dL (0.15-1.2) 11/11/22 02:40 AST 34 U/L (0-32) H 11/11/22 02:40 ALT 29 U/L (0-33) 11/11/22 02:40 Alkaline Phosphatase 85 U/L (35-105) 11/11/22 02:40 Total Protein 6.7 g/dL (6.6-8.7) 11/11/22 02:40 Albumin 3.6 g/dL (3.5-5.2) 11/12/22 04:08 Globulin 2.3 g/dL (1.3-4.6) 11/11/22 02:40 Lipase 33 U/L (13-60) 11/11/22 02:40 Vitamin B12 321 pg/mL (232-1245) 11/12/22 04:08 TSH 0.85 uIU/mL (0.27-4.20) 11/12/22 04:08 Urine Color Colorless (Yellow) 11/11/22 02:52 Urine Appearance Clear (CLEAR) 11/11/22 02:52 Urine pH 8 (5-7) H 11/11/22 02:52 Ur Specific [place] 1.015 (1.005-1.030) 11/11/22 02:52 Urine Protein Neg (Negative) 11/11/22 02:52 Urine Glucose (UA) Norm (Normal) 11/11/22 02:52 Urine Ketones Negative (Negative) 11/11/22 02:52 Urine Blood 2+ (Negative) H 11/11/22 02:52 Urine Nitrate Negative (Negative) 11/11/22 02:52 Urine Bilirubin Neg (Negative) 11/11/22 02:52 Urine Urobilinogen Neg mg/dL (Negative) 11/11/22 02:52 Ur Leukocyte Esterase Negative (Negative) 11/11/22 02:52 Urine RBC 5-10 /hpf (0-2) H 11/11/22 02:52 Urine WBC Rare /hpf (0-5) 11/11/22 02:52 Ur Squamous Epith Cells 0-4 /hpf (0-5) H 11/11/22 02:52 Amorphous Sediment Not Reportable 11/11/22 02:52 Urine Bacteria None /hpf (NONE) 11/11/22 02:52 Vitals Last Vital Signs Temp 97.8 F 11/12/22 12:00 Pulse 65 11/12/22 12:00 Resp 17 11/12/22 12:00 BP 154/77 11/12/22 12:00 Pulse Ox 97 11/12/22 12:00 O2 Del Method Room Air 11/12/22 12:00 Discharge Plan Discharge Patient Disposition: Home Condition: Stable Prescriptions: New Vitamin B-12 1,000 mcg Tablet 500 mcg PO DAILY Qty: 30 0RF Continued Eliquis 5 mg tablet 5 mg PO BID Qty: 180 3RF carvedilol 12.5 mg tablet 12.5 mg PO QAM Qty: 90 1RF amlodipine 2.5 mg tablet 2.5 mg PO DAILY Qty: 90 1RF ondansetron HCl 8 mg tablet 8 mg PO TID PRN (Reason: Nausea And Vomiting) Prevagen 1 cap PO DAILY carvedilol 6.25 mg tablet 6.25 mg PO QPM buspirone 5 mg tablet 5 mg PO TID PRN (Reason: Anxiety) magnesium hydroxide [Milk of Magnesia] 400 mg/5 mL suspension 1,200 mg PO QID PRN (Reason: constipation) Qty: 355 0RF Miralax 17 gram/dose powder 4 g PO DAILY Discharge Orders: Discharge Order (Routine); Ordered 11/12/22 Ordered By: Evans Aquino Referrals: Baldomero Britt MD [Primary Care Provider] - 2 weeks (We have notified your physician's clinic of the need for a follow-up appointment to be scheduled. If you have not heard from them within the next 2 business days, please call them directly. You may also reach out to our it consulting manager at [phone] and she can assist you.) Discharge Diet: Advance as tolerated and Full LIquid Patient Instructions: Bowel Obstruction, Vitamin B-12 (By mouth), Complete Blenderized Diet (DC), Colectomy Diet (GEN), Opioid Safety Activity Restrictions/Additional Instructions: Continue taking full liquid diet for next 7 days and then advance gradually. Take multiple small diet. Continue ambulating as before. Follow-up with a primary care provider within next 1 week. Discharge Attestations Time Spent in Discharge Care*: greater than 30 min Status at Discharge: Cognitive status at discharge: cognitively intact, Behavioral status at discharge: cooperative, Quality Metrics Clinical Quality Measures [ No reported AMI, CVA or VTE this stay] Coding Level of Care Code 36441 Total time (in minutes) for Discharge: 50 Diagnoses Small bowel obstruction K56.609 Hypertension I10 Hx SBO Z87.19
[2022-11-12 15:27] VITALS: BP 154/77; PULSE 65; RESP 17; TEMP 36.6; O2SAT 97
== END 2022-11-12 15:25 | disposition home or self-care (01) | DRG 390 ==
LOC: ER 03:52 → MEDSURG 04:20
PROVIDERS: Internal Medicine; Admitting Provider Internal Medicine; Emergency Provider Emergency Medicine; PCP Family Medicine; Visit Provider Student in an Organized Health Care Education/Training Program
DX: K56.50 Intestinal adhesions [bands], unspecified as to partial versus complete obstruction (principal); Z79.01 Long term (current) use of anticoagulants; I48.91 Unspecified atrial fibrillation; I50.9 Heart failure, unspecified; E11.9 Type 2 diabetes mellitus without complications; I11.0 Hypertensive heart disease with heart failure; I25.10 Atherosclerotic heart disease of native coronary artery without angina pectoris; F41.1 Generalized anxiety disorder; K21.9 Gastro-esophageal reflux disease without esophagitis; M10.9 Gout, unspecified; Z86.14 Personal history of Methicillin resistant Staphylococcus aureus infection; I25.2 Old myocardial infarction; Z90.49 Acquired absence of other specified parts of digestive tract; Z87.891 Personal history of nicotine dependence
CPT/HCPCS: 36415; 71045; 74022; 74177; 80053; 80069; 81001; 82607; 83036; 83540; 83550; 83605; 83690; 83735; 84443; 85025; 96372; 96374; 96375; 99285; J1200; J1644; J1650; J1885; J2270; J2405; J2765; J3420; J3490; J7030; J7799; Q9967

== ENCOUNTER → 2022-12-11 15:29 | Outpatient (BNVA) | payer MEDICARE, OTHER, SELFPAY | PROVIDERS: PCP Family Medicine; Visit Provider Internal Medicine Cardiovascular Disease | DX: I48.0 Paroxysmal atrial fibrillation (principal); I45.5 Other specified heart block; I11.0 Hypertensive heart disease with heart failure; I50.20 Unspecified systolic (congestive) heart failure; Z87.891 Personal history of nicotine dependence | CPT/HCPCS: 99214 ==

== ENCOUNTER 2022-12-13 19:59 | Inpatient (IN) | payer MEDICARE, OTHER, SELFPAY ==
[2022-12-13 20:16] VITALS: BP 173/94; PULSE 69; RESP 16; TEMP 36.6; O2SAT 98
--- NOTE | 2022-12-13 20:40 | CTR_ITS ---
PROCEDURE INFORMATION: Exam: CT Abdomen And Pelvis Without Contrast Exam date and time: 12/13/2022 11:46 PM Age: 77 years old Clinical indication: Other: PT HX sbo; Patient HX: PT vomitting excessively HX sbo; Additional info: RT sided abd pain, HX of recurrent sbo TECHNIQUE: Imaging protocol: Computed tomography of the abdomen and pelvis without contrast. Radiation optimization: All CT scans at this facility use at least one of these dose optimization techniques: automated exposure control; mA and/or kV adjustment per patient size (includes targeted exams where dose is matched to clinical indication); or iterative reconstruction. REPORTING DATA: Count of CT and Cardiac NM exams in prior 12 months: This patient has received 5 known CTs and 0 known cardiac nuclear medicine studies in the 12 months prior to the current study. COMPARISON: CT abdomen pelvis w con* [id number] 11/11/2022 2:53 AM RADIATION DOSE METRICS: Total DLP (mGy-cm): 460.84 FINDINGS: Lungs: Punctate calcifications in the spleen are suggestive of previous granulomatous process. Liver: Normal. No mass. Gallbladder and bile ducts: Cholecystectomy clips, dilated common bile duct measuring 1.2 cm, dilated common hepatic duct measuring 1.9 cm in diameter, and pneumobilia are unchanged. Pancreas: Normal. No ductal dilation. Spleen: Normal. No splenomegaly. Adrenal glands: Normal. No mass. Kidneys and ureters: There is a 1.2 cm simple appearing cyst in the upper pole of the left kidney, which does not need imaging follow-up. There is a 9 mm simple appearing cyst in the midportion of the right kidney, which does not need imaging follow-up. Stomach and bowel: Dilated small bowel loops are again seen with multiple air/fluid levels a different levels, suggestive of distal small bowel obstruction, less likely ileus. Appendix: No evidence of appendicitis. Intraperitoneal space: Unremarkable. No free air. No significant fluid collection. Vasculature: There are atherosclerotic calcifications in the abdominal aorta. Lymph nodes: Unremarkable. No enlarged lymph nodes. Urinary bladder: Unremarkable as visualized. Reproductive: The uterus is surgically absent. Bones/joints: Unremarkable. No acute fracture. Soft tissues: Unremarkable. CT/CT abdomen pelvis wo con [id number] IMPRESSION: 1. Dilated small bowel loops are again seen with multiple air/fluid levels a different levels, suggestive of distal small bowel obstruction, less likely ileus. 2. Cholecystectomy clips, dilated common bile duct measuring 1.2 cm, dilated common hepatic duct measuring 1.9 cm in diameter, and pneumobilia are unchanged. COMMENTS: Consistent with the [place] [employer]'s Incidental Findings Committee white paper (J Am Patricia Radiol 2018): Any incidental renal lesion less than 1 cm or classified as too small to characterize, or any incidental cystic renal lesion characterized as simple-appearing, is likely benign. No follow-up imaging is recommended for these lesions per consensus recommendations based on imaging criteria.
--- NOTE | 2022-12-13 20:40 | W.ED.ABDPA2 ---
HPI - Abdominal Pain General: Chief Complaint: Abdominal Pain Stated Complaint: abdomen pain Time Seen by Provider: 12/13/22 20:13 Source: patient and family Mode of arrival: wheelchair Limitations: no limitations History of Present Illness: Patient presents to the emergency department today accompanied by her for evaluation treatment of generalized and right-sided abdominal pains. Patient has a long history of recurrent small bowel obstruction secondary to multiple abdominal surgeries in the past. Patient has a specialist that she is seen at [facility] but most recently was admitted here to the hospitalist for small bowel obstruction approximately 1 month ago. Patient thought she was doing a little bit better after her discharge last month. They had her on a brat diet. She still had flareups of pain every once in a while but, thought overall she was doing better. Approximately 2 to 3 days ago she noticed increase in difficulties and was not able to go the bathroom. She states she took milk of magnesia and was able to get cleaned out . However, today-this evening, patient had sudden generalized and right-sided abdominal pains which she states feels very much like her recurrence of small bowel obstruction. She has been somewhat nauseated but no vomiting. Last bowel movement was over 48 hours ago. She did take some pain medication prior to arrival which gave her brief relief of her discomfort but, indicates pain is beginning to return. Review of Systems General: Reports: 10 or more systems reviewed and unremarkable except in HPI and below PFSH ED PFSH: Medical History Atrial fibrillation Chronic nausea Colonic diverticular abscess Congestive heart failure Coronary disease Discitis, unspecified, lumbar region DM II (diabetes mellitus, type II), controlled GUILLAUME (generalized anxiety disorder) GERD (gastroesophageal reflux disease) Gout Hx SBO Hypertension Low back pain at multiple sites Lumbar stenosis with neurogenic claudication Migraine MRSA bacteremia Myopericarditis Necrotizing fasciitis Non-ST elevation MD (NSTEMI) Osteoarthritis Pain of both breasts Pericarditis Protein-energy malnutrition Scleroderma Small bowel obstruction Surgical History H/O colectomy H/O hernia repair History of delivery History of cholecystectomy History of neck surgery S/P dilatation of esophageal stricture S/P ANH-BSO Family History Mother Congestive heart failure Social History Smoking and tobacco status: former smoker Alcohol intake: never Substance/Drug Use: never Lives independently: No Household members: spouse Marital status: Physical Exam Const: COMMON NORMALS: patient oriented x3 and alert OTHER: Patient is pleasant and social but obviously in discomfort as she grimaces regularly during her exam HENMT: COMMON NORMALS: normocephalic, atraumatic, hearing grossly normal bilaterally and moist oral mucous membranes HEAD & SCALP: normocephalic and atraumatic Eye: COMMON NORMALS: Equal, round and reactive pupils present, EOMs intact bilaterally and conjunctivae normal CONJUNCTIVA: Yes conjunctivae normal PUPIL: Yes Equal, round and reactive pupils present Neck/C-Spine: COMMON NORMALS: full ROM and no JVD Lymph: LYMPHATIC: no lymphadenopathy noted Resp: COMMON NORMALS: normal respiratory effort, No retractions, No use of accessory muscles and clear to auscultation bilaterally AUSCULTATION: clear to auscultation bilaterally Cardio: COMMON NORMALS: no JVD, regular rate and regular rhythm RATE: regular rate RHYTHM: regular rhythm GI: OTHER: Absent bowel sounds. Abdomen is soft but patient is extremely tender on palpation throughout the abdomen. : COMMON NORMALS: Yes no CVA tenderness BLADDER/KIDNEY EXAM: Yes no CVA tenderness Back/Pelvis: COMMON NORMALS: no CVA tenderness, no thoracic nor lumbar tenderness and thoraco-lumbar ROM normal Extremity: COMMON NORMALS: normal to inspection, full ROM and capillary refill normal Neuro: COMMON NORMALS: patient oriented x3 SENSORIUM/ORIENTATION: Yes alert Psych: COMMON NORMALS: mental status grossly normal, Normal thought process present, cooperative, normal affect and activity/motor behavior normal THOUGHT PROCESS: Normal thought process present Skin: COMMON NORMALS: no rashes or lesions noted and no wounds GENERAL SKIN EXAM: no rashes or lesions noted Course Vital Signs: Vital signs: Vital Signs Temperature 97.8 F 12/13/22 20:16 Pulse Rate 86 12/14/22 00:46 Respiratory Rate 17 12/14/22 00:25 Blood Pressure 116/87 12/14/22 00:46 Pulse Oximetry 93 12/14/22 00:46 Oxygen Delivery Me thod Room Air 12/14/22 00:46 MDM - Abdominal Pain Medical Decision Making Patient has remained with stable vital signs here in the emergency department. She did begin vomiting while here and attempts at nausea and vomiting control were difficult. We tried Reglan, Zofran, and Haldol. We eventually administered IM Phenergan at the recommendation of hospitalist services. There were multiple attempts at IV access as patient was a difficult stick. We went up having to do the CT examination without contrast due to lack of access in the IV. Still, CT examination was able to confirm small bowel obstruction. I reached out and spoke with Dr. Sewell with hospitalist services. Discussed NG tube and Lactic levels. I indicated labs were stable but due to other similar evaluations in the department, was mistaken about having gathered a lactic or procalcitonin on this patient specifically. We have obtained this lab evluation at this time. Dr Sewell was willing to take the admission but did request touching base with [facility] bogdan for consult. Was able to speak with Dr. Degroot who agreed to the consult once admitted. Patient was ordered an NG tube. They were visited at bedside by Dr. Sewell. We will defer further treatment and intervention for this patient to the hospitalist services at this time. Differential Diagnosis Likely abdominal pain and small bowel obstruction; Unlikely acute appendicitis, calculus of kidney, constipation, diverticulitis, gastroenteritis or pancreatitis Lab Data 12/13/22 20:53 12/13/22 20:53 Labs/Radiology: Radiology Impressions Abdomen/Pelvis CT 12/13/22 20:40 IMPRESSION: 1. Dilated small bowel loops are again seen with multiple air/fluid levels a different levels, suggestive of distal small bowel obstruction, less likely ileus. 2. Cholecystectomy clips, dilated common bile duct measuring 1.2 cm, dilated common hepatic duct measuring 1.9 cm in diameter, and pneumobilia are unchanged. COMMENTS: Consistent with the [place] [employer]'s Incidental Findings Committee white paper (J Am Patricia Radiol 2018): Any incidental renal lesion less than 1 cm or classified as too small to characterize, or any incidental cystic renal lesion characterized as simple-appearing, is likely benign. No follow-up imaging is recommended for these lesions per consensus recommendations based on imaging criteria. Laboratory Results WBC 6.81 10^3/uL (3.29-11.43) 12/13/22 20:53 RBC 4.78 10^6/uL (3.85-5.65) 12/13/22 20:53 Hgb 14.40 g/dL (11.27-16.99) 12/13/22 20:53 Hct 43.8 % (36-47) 12/13/22 20:53 MCV 91.6 fl (85-98) 12/13/22 20:53 MCH 30.1 pg (27-33) 12/13/22 20: MCHC 32.9 g/dL (30-55) 12/13/22 20:53 RDW 12.8 % (12.1-15.1) 12/13/22 20:53 Plt Count 183 10^3/cmm (157-399) 12/13/22 20:53 MPV 10.8 fL (7.4-10.4) H 12/13/22 20:53 Neut % (Auto) 44.1 % 12/13/22 20:53 Lymph % (Auto) 38.6 % 12/13/22 20:53 [place] % (Auto) 10.4 % 12/13/22 20:53 Eos % (Auto) 5.6 % 12/13/22 20:53 Baso % (Auto) 0.9 % 12/13/22 20:53 Neut # (Auto) 3.00 10^3/uL (1.8-7.7) 12/13/22 20:53 Lymph # (Auto) 2.6 10^3/uL (0.8-4.8) 12/13/22 20:53 [place] # (Auto) 0.7 10^3/uL (0.2-0.9) 12/13/22 20:53 Eos # (Auto) 0.4 10^3/uL (0.0-0.8) 12/13/22 20:53 Baso # (Auto) 0.1 10^3/uL (0.0-0.1) 12/13/22 20:53 Nucleated RBC % (auto) 0 % 12/13/22 20:53 Nucleated RBCs # 0.0 /100WBC 12/13/22 20:53 Sodium 140 mmol/L (136-145) 12/13/22 20:53 Potassium 4.1 mmol/L (3.5-5.1) 12/13/22 20:53 Chloride 104 mmol/L (98-107) 12/13/22 20:53 Carbon Dioxide 26 mmol/L (22-29) 12/13/22 20:53 Anion Gap 14.1 (5-19) 12/13/22 20:53 BUN 15 mg/dL (8-23) 12/13/22 20:53 Creatinine 0.7 mg/dL (0.5-0.9) 12/13/22 20:53 GFR Calculation Not Reportable 12/13/22 20:53 Glucose 112 mg/dL (65-115) 12/13/22 20:53 Calculated Osmolality 292 mOsm/kg (285-295) 12/13/22 20:53 Calcium 9.0 mg/dL (8.5-10.5) 12/13/22 20:53 Total Bilirubin 0.6 mg/dL (0.15-1.2) 12/13/22 20:53 AST 23 U/L (0-32) 12/13/22 20:53 ALT 17 U/L (0-33) 12/13/22 20:53 Alkaline Phosphatase 75 U/L (35-105) 12/13/22 20:53 Total Protein 6.3 g/dL (6.6-8.7) L 12/13/22 20:53 Albumin 4.3 g/dL (3.5-5.2) 12/13/22 20:53 Globulin 2.0 g/dL (1.3-4.6) 12/13/22 20:53 Lipase 102 U/L (13-60) H 12/13/22 20:53 Urine Color Yellow (Yellow) 12/13/22 21:48 Urine Appearance Clear (CLEAR) 12/13/22 21:48 Urine pH 8 (5-7) H 12/13/22 21:48 Ur Specific [place] 1.015 (1.005-1.030) 12/13/22 21:48 Urine Protein Neg (Negative) 12/13/22 21:48 Urine Glucose (UA) Norm (Normal) 12/13/22 21:48 Urine Ketones Negative (Negative) 12/13/22 21:48 Urine Blood 2+ (Negative) H 12/13/22 21:48 Urine Nitrate Negative (Negative) 12/13/22 21:48 Urine Bilirubin Neg (Negative) 12/13/22 21:48 Prot Sulfosalicylic Acd Negative (Negative) 12/13/22 21:48 Urine Urobilinogen Neg mg/dL (Negative) 12/13/22 21:48 Ur Leukocyte Esterase Negative (Negative) 12/13/22 21:48 Urine RBC 5-10 /hpf (0-2) H 12/13/22 21:48 Urine WBC 0-4 /hpf (0-5) H 12/13/22 21:48 Ur Squamous Epith Cells 0-4 /hpf (0-5) H 12/13/22 21:48 Amorphous Sediment 1+ /hpf 12/13/22 21:48 Urine Bacteria Trace /hpf (NONE) 12/13/22 21:48 Urine Mucus 1+ /hpf 12/13/22 21:48 All radiology interpretation(s) finalized by discharge Discharge Plan Discharge Patient Disposition: Admitted As Inpatient Clinical Impression: Small bowel obstruction Condition: Stable Coding Level of Care Code ED Projector Booth Operator for Tad Sanderson
[2022-12-13 20:59] LABS: Basophils # 0.1 10^3/uL (0.0-0.1); Basophils % 0.9 %; Eosinophils # 0.4 10^3/uL (0.0-0.8); Eosinophils % 5.6 %; Hematocrit 43.8 % (36-47); Lymphocytes # 2.6 10^3/uL (0.8-4.8); Lymphocytes % 38.6 %; Mean Corpuscular HGB Conc 32.9 g/dL (30-55); Mean Corpuscular Hemoglobin 30.1 pg (27-33); Mean Corpuscular Volume 91.6 fl (85-98); Mean Platelet Volume 10.8 fL (7.4-10.4); Monocytes # 0.7 10^3/uL (0.2-0.9); Monocytes % 10.4 %; Neutrophils % 44.1 %; Nucleated Red Blood Cells % 0 %; Platelet Count 183 10^3/cmm (157-399); Red Blood Count 4.78 10^6/uL (3.85-5.65); Red Cell Distribution Width 12.8 % (12.1-15.1); White Blood Count 6.81 10^3/uL (3.29-11.43)
[2022-12-13 21:16] LABS: Alanine Aminotransferase 17 U/L (0-33); Albumin Level 4.3 g/dL (3.5-5.2); Alkaline Phosphatase 75 U/L (35-105); Aspartate Amino Transferase 23 U/L (0-32); Blood Urea Nitrogen 15 mg/dL (8-23); Carbon Dioxide 26 mmol/L (22-29); Chloride 104 mmol/L (98-107); Glucose 112 mg/dL (65-115); Lipase 102 U/L (13-60); Osmolality Calculated 292 mOsm/kg (285-295); Sodium 140 mmol/L (136-145); Total Bilirubin 0.6 mg/dL (0.15-1.2); Total Protein 6.3 g/dL (6.6-8.7)
[2022-12-13 21:18] LABS: Anion Gap 14.1 (5-19); Potassium 4.1 mmol/L (3.5-5.1)
[2022-12-13 21:50] VITALS: RESP 18
[2022-12-13] MEDS: morphine 4 mg/mL SDV 1 mL IVP (21:50)
[2022-12-13] MEDS: metoclopramide 5 mg/mL SDV 2 mL 10 MG IVP (21:51)
[2022-12-13 22:16] LABS: Add Urine Microscopic? YES; Bilirubin Urine Neg (Negative); Blood Urine 2+ (Negative); Glucose Urine UA Norm (Normal); Ketones Urine Negative (Negative); Leukocyte Esterase Urine Negative (Negative); Nitrate Urine Negative (Negative); Protein Urine Neg (Negative); Specific Gravity, Urine 1.015 (1.005-1.030); Sulfosalicylic Acid Urine Negative (Negative); Urine Appearance Clear (CLEAR); Urine Color Yellow (Yellow); Urobilinogen Urine Neg (Negative); pH Urine 8 (5-7)
[2022-12-13 22:17] LABS: Add Urine Culture? No; Amorphous Sediment Urine 1+ /hpf; Bacteria Urine TRACE /hpf; Mucus Urine 1+ /hpf; Squamous Epithelial Cell Urine 0-4 /hpf (0-5); WBC Urine 0-4 /hpf (0-5)
[2022-12-13] MEDS: ondansetron 2 mg/ML SDV 2 mL 4 MG IVP (23:33)
[2022-12-14] VITALS (13 sets, daily range): BP systolic 116–188; BP diastolic 73–109; PULSE 69–96; RESP 15–18; TEMP 36.4–36.8; O2SAT 92–98
[2022-12-14] MEDS: morphine 4 mg/mL SDV 1 mL IVP (00:08)
[2022-12-14] MEDS: haloperidol inj 5 mg/mL INJ 1 mL IVP (00:08)
[2022-12-14] MEDS: promethazine 25 mg/mL SDV 1 mL IM (01:03)
--- NOTE | 2022-12-14 01:08 | P.HP_ITS ---
Providers/Chief Complaint Admitting Physician: Gage Sewell MD Primary Care Provider: Baldomero Britt MD Chief Complaint: abdomen pain History of Present Illness Anju Duffy is a 77 year old female with a past medical history of recurrent bowel obstructions, has had multiple abdominal surgeries, history of atrial fibrillation, history of type 2 diabetes mellitus, CAD, CHF, who presents [facility] due to nausea, vomiting, abdominal pain, lack of stooling for the last 24 hours. Currently patient sitting up to the side of the bed, she has had a couple episodes of emesis in the emergency room, she is received Haldol, Reglan, Zofran, but continues to have nauseous episodes, she is feeling quite unwell, I have asked nurse practitioner for patient to receive promethazine. Also asked for nursing staff to place NG tube, as patient is at high risk of aspiration. Patient tells me that she been on a brat diet, trying to reduce her risk of recurrent bowel obstructions, she regularly takes milk of magnesia to help keep her bowels regular, however this evening, she had episode of sudden abdominal pain, no fevers, no chills, denies aspiration, no shortness of breath Review of Systems Const: Denies: fever(s) Card: Denies: chest pain Resp: Denies: dyspnea GI: Reports: abdominal pain, nausea and vomiting; Denies: hematemesis or coffee ground emesis : Denies: flank pain Neuro: Denies: headache(s) Medications/Allergies Home Medications Medication Instructions Recorded Confirmed Last Taken Type ondansetron HCl 8 mg tablet 8 mg PO TID PRN Nausea And Vomiting 03/21/21 12/11/22 11/09/21 History Prevagen 1 cap PO DAILY 06/07/21 12/12/22 1 Day Ago History ~11/10/22 buspirone 5 mg tablet 5 mg PO TID PRN Anxiety 11/10/21 12/11/22 11/09/21 History magnesium hydroxide 400 mg/5 mL 1,200 mg (15 mL) PO QID PRN 11/11/21 12/11/22 11/11/21 Rx oral suspension (Milk of Magnesia) constipation #355 mL apixaban 5 mg tablet (Eliquis) 5 mg PO BID #180 tabs 05/03/22 12/11/22 1 Day Ago Rx ~11/10/22 carvedilol 12.5 mg tablet 12.5 mg PO QAM #90 tabs 07/06/22 12/11/22 1 Day Ago Rx ~11/10/22 carvedilol 6.25 mg tablet 6.25 mg PO QPM 07/16/22 12/11/22 1 Day Ago History ~11/10/22 amlodipine 2.5 mg tablet 2.5 mg PO DAILY #90 tabs 09/17/22 12/11/22 Unknown Rx polyethylene glycol 3350 17 4 g PO DAILY 11/11/22 12/11/22 1 Day Ago History gram/dose oral powder (Miralax) ~11/10/22 cyanocobalamin (vitamin B-12) 500 mcg PO DAILY #30 tabs 11/12/22 12/11/22 Unknown Rx 1,000 mcg tablet (Vitamin B-12) Allergies Allergy/AdvReac Type Severity Reaction Status Date / Time Latex, Natural Rubber Allergy ALGY-Rash Verified 12/11/22 14:17 olanzapine [From Zyprexa] Allergy hallucinati Verified 12/11/22 14:17 ons/agitate d lorazepam [From Ativan] AdvReac hallucination, Verified 12/11/22 14:17 agitated PFSH Acute PFSH: Medical History (Updated 12/14/22 @ 01:16 by Gage Sewell MD) Atrial fibrillation Chronic nausea Colonic diverticular abscess Congestive heart failure Coronary disease Discitis, unspecified, lumbar region DM II (diabetes mellitus, type II), controlled GUILLAUME (generalized anxiety disorder) GERD (gastroesophageal reflux disease) Gout Hx SBO Hypertension Low back pain at multiple sites Lumbar stenosis with neurogenic claudication Migraine MRSA bacteremia Myopericarditis Necrotizing fasciitis Non-ST elevation [place] (NSTEMI) Osteoarthritis Pain of both breasts Pericarditis Protein-energy malnutrition Scleroderma Small bowel obstruction Surgical History H/O colectomy H/O hernia repair History of delivery History of cholecystectomy History of neck surgery S/P dilatation of esophageal stricture S/P ANH-BSO Family History Mother Congestive heart failure Social History Smoking and tobacco status: former smoker Alcohol intake: never Substance/Drug Use: never Lives independently: No Household members: spouse Marital status: Vitals/I&O/Wt Last Vital Signs Temp 97.8 F 12/13/22 20:16 Pulse 96 12/14/22 01:04 Resp 18 12/14/22 01:04 BP 138/109 12/14/22 01:04 Pulse Ox 92 12/14/22 01:04 O2 Del Method Room Air 12/14/22 01:04 Physical Exam Const: COMMON NORMALS: no acute distress and patient oriented x3 HENMT: COMMON NORMALS: normocephalic HEAD & SCALP: normocephalic Eye: COMMON NORMALS: Equal, round and reactive pupils present and EOMs intact bilaterally Neck/C-Spine: COMMON NORMALS: no JVD Lymph: LYMPHATIC: no lymphadenopathy noted Resp: COMMON NORMALS: normal respiratory effort, No retractions, No use of accessory muscles and clear to auscultation bilaterally AUSCULTATION: clear to auscultation bilaterally Cardio: COMMON NORMALS: regular rate, regular rhythm, S1 normal heart sound present and S2 normal heart sound present RATE: regular rate RHYTHM: regular rhythm HEART SOUNDS: S1 normal heart sound present and S2 normal heart sound present GI: OTHER: Abdomen soft, distended, diminished bowel sounds in all 4 quadrants, no guarding, no rebound, no rigidity, does have diffuse tenderness in all 4 quadrants Extremity: COMMON NORMALS: no pedal edema Neuro: COMMON NORMALS: patient oriented x3, CN's II-XII intact bilaterally, moves all extremities and no focal motor deficits Psych: COMMON NORMALS: mental status grossly normal Data 12/13/22 20:53 12/13/22 20:53 A&P Assessment and plan (1) Small bowel obstruction: (2) Atrial fibrillation: Plan Distal small bowel obstruction CT scan 1. ? Dilated small bowel loops are again seen with multiple air/fluid levels a different levels, suggestive of distal small bowel obstruction, less likely ileus. Plan -We will get have to get her nausea under control, and she is a high risk of aspiration, morbidity mortality associated she is going to receive 25 mg IM promethazine -Reglan, Zofran, promethazine, Haldol for nausea -Dilaudid 1 mg IV push every 2 hours for pain -Serial abdominal exams -NG tube to place in the ER - I spoke to ER provider, recommended that surgery should be consulted, ER provider will call surgery for surgical consultation -Patient has a history of atrial fibrillation, started on heparin drip -Full code, patient was not able to make a decision about her CODE STATUS, she wants to think on it, I discussed with her that as she does not have a decision at this time about her CODE STATUS is the default will be full code, she is agreeable to this, however she does not want to remain on life support indefinitely -Heparin for DVT prophylaxis Attestations Medical Necessity Statement*: Patient requires hospitalization, inpatient, greater than 2 midnights for bowel obstruction Diagnoses Small bowel obstruction K56.609 Atrial fibrillation I48.91
[2022-12-14 01:17] LABS: Procalcitonin 0.03 ng/mL (0-0.5)
--- NOTE | 2022-12-14 01:17 | XRR_ITS ---
PROCEDURE INFORMATION: Exam: XR Chest Exam date and time: 12/14/2022 1:21 AM Age: 77 years old Clinical indication: Device placement; Ng tube; Additional info: Ng tube placement TECHNIQUE: Imaging protocol: Radiologic exam of the chest. Views: 1 view. COMPARISON: CR (ABDOMEN, ) 11/12/2022 11:53 AM FINDINGS: Tubes, catheters and devices: The tip and the side opening of the nasogastric tube projects over the stomach body. Lungs: Unremarkable. No consolidation. Pleural spaces: Unremarkable. No pleural effusion. No pneumothorax. Heart/Mediastinum: Cardiomediastinal silhouette is normal in size. Vasculature: There are atherosclerotic calcifications in the thoracic aorta. Bones/joints: Unremarkable. XR/XR chest 1V portable [id number] IMPRESSION: 1. Nasogastric tube is in good projection. 2. No acute abnormalities.
--- NOTE | 2022-12-14 01:34 | PC.NURSE ---
report called to glenn frankel.
[2022-12-14] MEDS: dextrose 5%-sod chloride 0.9% 1,000 ML 100 ML IV ×2 (02:21→17:38)
[2022-12-14] MEDS: pantoprazole 40 mg SDV IVP (02:27)
[2022-12-14 02:36] LABS: Platelet Count 203 10^3/cmm (157-399)
[2022-12-14 02:42] LABS: Partial Thromboplastin Time 33.2 SECONDS (23.9-36.7)
[2022-12-14 02:50] LABS: Lactic Sepsis W/Reflex 1.5 mmol/L (0.5-2.2)
[2022-12-14] MEDS: heparin drip 25,000 UNIT/500 ML PREMIX 18 UNIT IV (03:03)
[2022-12-14 09:40] LABS: Partial Thromboplastin Time 135.9 SECONDS (23.9-36.7)
--- NOTE | 2022-12-14 11:06 | PC.SOCIAL ---
IMM Update pg 2 of IMM updated and reviewed w/ patient and her . Copy dated, initiale and placed in chart and copy left @ bedside.
--- NOTE | 2022-12-14 11:26 | P.CONIM_ITS ---
Providers/Reason For Consult Consulting Physician/Specialty*: General surgery Reason for Consult*: Partial SBO Attending Physician: Evans Aquino MD Primary Care Provider: Baldomero Britt MD History of Present Illness History of Present Illness Anju Duffy is a 77 year old female with history of multiple intra-abdominal surgeries and who has had multiple episodes of a small bowel obstruction all treated with a conservative approach. Her last episode was about 1 month ago. She presented after not being able to have a bowel movement for the last 24 hours and developing abdominal pain and nausea. A CT scan done in the emergency department show evidence of partial small bowel obstruction with a possible transition point in the distal small bowel. NG tube was inserted had an output over 1 L of bilious material. On my examination patient denies passing gas recently last bowel movement was almost a week ago she ingested multiple laxatives to flush her system. Review of Systems Narrative: 10 point review of system was done and is negative otherwise noted in HPI Medications/Allergies Home Medications Medication Instructions Recorded Confirmed Last Taken Type ondansetron HCl 8 mg tablet 8 mg PO TID PRN Nausea And Vomiting 03/21/21 12/14/22 11/09/21 History Prevagen 1 cap PO DAILY 06/07/21 12/14/22 1 Day Ago History ~11/10/22 buspirone 5 mg tablet 5 mg PO TID PRN Anxiety 11/10/21 12/14/22 11/09/21 History magnesium hydroxide 400 mg/5 mL 1,200 mg (15 mL) PO QID PRN 11/11/21 12/14/22 11/11/21 Rx oral suspension (Milk of Magnesia) constipation #355 mL apixaban 5 mg tablet (Eliquis) 5 mg PO BID #180 tabs 05/03/22 12/14/22 1 Day Ago Rx ~11/10/22 carvedilol 12.5 mg tablet 12.5 mg PO QAM #90 tabs 07/06/22 12/14/22 1 Day Ago Rx ~11/10/22 carvedilol 6.25 mg tablet 6.25 mg PO QPM 07/16/22 12/14/22 1 Day Ago History ~11/10/22 amlodipine 2.5 mg tablet 2.5 mg PO DAILY #90 tabs 09/17/22 12/14/22 Unknown Rx polyethylene glycol 3350 17 4 g PO DAILY 11/11/22 12/14/22 1 Day Ago History gram/dose oral powder (Miralax) ~11/10/22 cyanocobalamin (vitamin B-12) 500 mcg PO DAILY #30 tabs 11/12/22 12/14/22 Unknown Rx 1,000 mcg tablet (Vitamin B-12) Allergies Allergy/AdvReac Type Severity Reaction Status Date / Time Latex, Natural Rubber Allergy ALGY-Rash Verified 12/11/22 14:17 olanzapine [From Zyprexa] Allergy hallucinati Verified 12/11/22 14:17 ons/agitate d lorazepam [From Ativan] AdvReac hallucination, Verified 12/11/22 14:17 agitated Current Medications Generic Name Dose Route Start Last Admin Trade Name Freq PRN Reason Stop Dose Admin Dextrose/Sodium Chloride 1,000 mls @ 100 mls/hr 12/14/22 01:45 12/14/22 02:21 Dextrose 5%-Sod Chloride 0.9% IV 100 mls/hr .Q10H ROCIO Administration Heparin Sodium/Sodium Chloride 25,000 unit in 500 mls @ 0 mls/hr 12/14/22 01:45 12/14/22 03:03 Heparin Drip IV 14.11 unit/kg/hr .Q0M ROCIO 18 mls/hr Administration Protocol Per Protocol Pantoprazole Sodium 40 mg 12/14/22 01:45 12/14/22 02:27 Pantoprazole 40 Mg Sdv IVP 40 mg Q12H ROCIO Administration PFSH Acute PFSH: Medical History (Updated 12/14/22 @ 01:16 by Gage Sewell MD) Atrial fibrillation Chronic nausea Colonic diverticular abscess Congestive heart failure Coronary disease Discitis, unspecified, lumbar region DM II (diabetes mellitus, type II), controlled GUILLAUME (generalized anxiety disorder) GERD (gastroesophageal reflux disease) Gout Hx SBO Hypertension Low back pain at multiple sites Lumbar stenosis with neurogenic claudication Migraine MRSA bacteremia Myopericarditis Necrotizing fasciitis Non-ST elevation [place] (NSTEMI) Osteoarthritis Pain of both breasts Pericarditis Protein-energy malnutrition Scleroderma Small bowel obstruction Surgical History H/O colectomy H/O hernia repair History of delivery History of cholecystectomy History of neck surgery S/P dilatation of esophageal stricture S/P ANH-BSO Family History Mother Congestive heart failure Social History Smoking and tobacco status: former smoker Alcohol intake: never Substance/Drug Use: never Lives independently: No Household members: spouse Marital status: Vitals/I&O/Wt Last Vital Signs Temp 97.8 F 12/14/22 08:34 Pulse 70 12/14/22 08:34 Resp 18 12/14/22 08:34 BP 131/77 12/14/22 08:34 Pulse Ox 96 12/14/22 08:34 O2 Del Method Room Air 12/14/22 08:34 FiO2 21 12/14/22 01:53 12/13/22 12/14/22 12/14/22 22:59 06:59 14:59 Output Total 450 / 450 Balance -450 / -450 Weight last 48 hrs Weight 140 lb Weight 140 lb 9.6 oz Physical Exam 2 Narrative: General : Patient is well developed , no acute distress, oriented x3 Head : Normal cephalic, a-traumatic. Nose : NG tube in place Lungs : Equal chest rise bilaterally, no use of accessory muscles, trachea is midline. CV : Rate and rhythm are normal. Abdomen : Soft, ND, NT, no g/r/m Extremities : No edema. Upper extremities are normal bilaterally. Back : non-tender to palpation, no CVA tenderness. Data 12/14/22 02:23 12/13/22 20:53 A&P Assessment and plan (1) Small bowel obstruction: Plan After complete history, physical examination and review of all available clinical data the following is my assessment. Patient with a partial small bowel obstruction that is recurrent, likely caused due to additions this patient has history of multiple previous abdominal surgeries. At this point I think it would be appropriate to proceed with 24 to 48 hours of decompression with NG tube, after that the patient can have a trial of p.o. diet. I may consider do a Gastrografin challenge tomorrow depending on patient clinical progress. -Continue NG tube to low intermittent wall suction -N.p.o. for now -No acute surgical intervention indicated, continue conservative management of SBO -Appreciate all other management per hospitalist team. Coding Level of Care Code Acute Code for Chg Fwd Diagnoses Small bowel obstruction K56.609
[2022-12-14 17:16] LABS: Partial Thromboplastin Time 114.2 SECONDS (23.9-36.7)
[2022-12-14] MEDS: labetalol 5 mg/mL SDV 20mL 10 MG IVP (23:39)
[2022-12-15] VITALS (9 sets, daily range): BP systolic 144–182; BP diastolic 69–102; PULSE 67–86; RESP 14–18; TEMP 36.8–37.1; O2SAT 95–97
[2022-12-15 00:38] LABS: Partial Thromboplastin Time 40.9 SECONDS (23.9-36.7)
[2022-12-15] MEDS: dextrose 5%-sod chloride 0.9% 1,000 ML 100 ML IV (04:18)
[2022-12-15] MEDS: labetalol 5 mg/mL SDV 20mL 10 MG IVP (04:21)
[2022-12-15 05:27] LABS: Basophils % 0.2 %; Eosinophils # 0.1 10^3/uL (0.0-0.8); Eosinophils % 0.5 %; Hematocrit 42.9 % (36-47); Lymphocytes # 2.3 10^3/uL (0.8-4.8); Lymphocytes % 18.1 %; Mean Corpuscular HGB Conc 32.2 g/dL (30-55); Mean Corpuscular Hemoglobin 29.9 pg (27-33); Mean Corpuscular Volume 93.1 fl (85-98); Mean Platelet Volume 10.8 fL (7.4-10.4); Monocytes % 7.7 %; Neutrophils # 9.38 10^3/uL (1.8-7.7); Nucleated Red Blood Cells % 0 %; Platelet Count 166 10^3/cmm (157-399); Red Blood Count 4.61 10^6/uL (3.85-5.65); Red Cell Distribution Width 12.9 % (12.1-15.1); White Blood Count 12.83 10^3/uL (3.29-11.43)
[2022-12-15 05:59] LABS: Alanine Aminotransferase 27 U/L (0-33); Albumin Level 3.5 g/dL (3.5-5.2); Alkaline Phosphatase 75 U/L (35-105); Anion Gap 12.6 (5-19); Aspartate Amino Transferase 26 U/L (0-32); Blood Urea Nitrogen 14 mg/dL (8-23); Calcium 8.3 mg/dL (8.5-10.5); Carbon Dioxide 24 mmol/L (22-29); Chloride 107 mmol/L (98-107); Globulin 1.7 g/dL (1.3-4.6); Glucose 132 mg/dL (65-115); Osmolality Calculated 292 mOsm/kg (285-295); Phosphorus 2.5 mg/dL (2.5-4.5); Potassium 3.6 mmol/L (3.5-5.1); Sodium 140 mmol/L (136-145); Total Bilirubin 1.2 mg/dL (0.15-1.2); Total Protein 5.2 g/dL (6.6-8.7)
[2022-12-15 07:27] LABS: Partial Thromboplastin Time 89.1 SECONDS (23.9-36.7)
[2022-12-15] MEDS: pantoprazole 40 mg SDV IVP (08:16)
--- NOTE | 2022-12-15 09:43 | PC.NURSE ---
Addendum entered by Shana Paredes RN 12/15/22 10:16: Dr Degroot gave 120ml of Gastrografin thru patients NG tube. Original Note: 0933 Dr Thapa, gave Gastrografin in patient NG tube. NG to stay clamped for 6hrs.
--- NOTE | 2022-12-15 09:54 | P.PN_ITS ---
Subjective Subjective: 77-year-old female with admitted with recurrent episodes of SBO. Patient is stable, has not had a bowel movement or passed gas yet. Output of the NG tube has been about 300 cc over the last 12 hours. At this point I think it would be appropriate to proceed with a Gastrografin trial, as a diagnostic and therapeutic measure. Gastrografin was administered this morning via the NG tube 100 cc of Gastrografin diluted in 50 cc of water. NG tube was clamped and an x- ray will be taken at 3:30 PM. Another x-ray will be ordered for the morning and we will assess progression with this. Vitals/I&O/Wt Last Vital Signs Temp 98.4 F 12/15/22 07:44 Pulse 86 12/15/22 07:44 Resp 18 12/15/22 07:44 BP 157/79 12/15/22 07:44 Pulse Ox 97 12/15/22 07:44 O2 Del Method Room Air 12/15/22 07:44 FiO2 21 12/14/22 01:53 12/14/22 12/15/22 12/15/22 22:59 06:59 14:59 Intake Total 266.1 / 1266.1 991.666 / 2257.766 214.75 / 214.75 Balance 266.1 / 816.1 991.666 / 1807.766 214.75 / 214.75 Weight last 48 hrs Weight 140 lb Weight 140 lb 9.6 oz Physical Exam GI: OTHER: Abdomen soft, nontender, nondistended at this moment. Data 12/15/22 04:49 12/15/22 04:49 A&P Assessment and plan (1) Small bowel obstruction: Plan Patient with recurrent small bowel obstruction, Gastrografin trial will be done today. X-ray scheduled for 3:30 PM additional x-ray will be ordered for the morning, in the interim patient will remain with NG tube clamped, I have encou raged the patient to ambulate. If patient is able to pass gas and have a bowel movement we will start clears and consider her small bowel obstruction resolving. Her abdominal exam remains benign, no evidence of distention, no abdominal pain. Attestations Medical Necessity Statement*: Patient will need 24 to 48 hours of hospital stay for small bowel obstruction. Coding Level of Care Code Acute Code for Chg Fwd Diagnoses Small bowel obstruction K56.609
--- NOTE | 2022-12-15 13:25 | XRR_ITS ---
PROCEDURE INFORMATION: Exam: XR Abdomen Exam date and time: 12/15/2022 1:49 PM Age: 77 years old Clinical indication: Abdominal tenderness and bloating and constipation; Prior surgery; Surgery date: 6+ months; Surgery type: PT states she has had several bowel/abdomen surgeries; Patient HX: Possible small bowel obstruction; Abdomen pain; Gastrograffin follow through; 100ml gastro given through ng @ 0935-5hr film per Dr request. TECHNIQUE: Imaging protocol: Radiologic exam of the abdomen. Views: Frontal supine view of the abdomen. 1 View. COMPARISON: CT abdomen pelvis con [id number] 12/13/2022 11:46 PM FINDINGS: Gastrointestinal tract: High-density luminal bowel contrast is seen throughout the colon/rectum and distal small bowel. No significant luminal distention to suggest mechanical obstruction. No obvious pneumatosis. No significant solid fecal material retention or impaction throughout the colon. Multiple metallic surgical retention sutures throughout the abdomen. Cholecystectomy clips. Bones/joints: No acute findings. Probable osteopenia. XR/XR abdomen 1V* [id number] IMPRESSION: Transit of luminal bowel contrast to the rectum with no obvious signs of obstruction.
--- NOTE | 2022-12-15 13:25 | PM.MISC ---
Miscellaneous Note Purpose of Documentation: Update in patient care Note: patient has had multiple bowel movements after contrast administration. -NG tube removed -Patient can be started on clears and advanced as tolerated -XR to be obtained now for docummentation -SBO likely resolved -If tolerating diet patient can be discharged
[2022-12-15 14:14] LABS: Partial Thromboplastin Time 59.3 SECONDS (23.9-36.7)
--- NOTE | 2022-12-15 14:55 | PM.PN ---
Subjective Subjective: Seen multiple times in the day. Today morning patient had an NG tube without any bowel movements for which she was given Gastrografin and NG tube was clamped. After Gastrografin patient had few bowel movements without any nausea or vomiting and relief in abdominal distention. When again seen NG tube has been removed as per surgical recommendation as patient is already having bowel movements and is on clear liquid trial. Patient states she is feeling a lot better. Denies any nausea, vomiting, headache. Vitals/I&O/Wt Last Vital Signs Temp 977.4 F H 12/15/22 12:25 Pulse 72 12/15/22 14:00 Resp 18 12/15/22 12:25 BP 165/69 12/15/22 12:25 Pulse Ox 97 12/15/22 12:25 O2 Del Method Room Air 12/15/22 12:25 FiO2 21 12/14/22 01:53 12/14/22 12/15/22 12/15/22 22:59 06:59 14:59 Intake Total 266.1 / 1266.1 991.666 / 2257.766 1214.75 / 1214.75 Balance 266.1 / 816.1 991.666 / 4864.871 7841.75 / 1214.75 Weight last 48 hrs Weight 63.503 kg Weight 63.775 kg Physical Exam Const: COMMON NORMALS: no acute distress and patient oriented x3 HENMT: COMMON NORMALS: normocephalic HEAD & SCALP: normocephalic Eye: COMMON NORMALS: Equal, round and reactive pupils present and EOMs intact bilaterally PUPIL: Yes Equal, round and reactive pupils present Neck/C-Spine: COMMON NORMALS: no JVD Lymph: LYMPHATIC: no lymphadenopathy noted Resp: COMMON NORMALS: normal respiratory effort, No retractions, No use of accessory muscles and clear to auscultation bilaterally AUSCULTATION: clear to auscultation bilaterally Cardio: COMMON NORMALS: no JVD, S1 normal heart sound present and S2 normal heart sound present RATE: Other (Irregularly irregular) RHYTHM: abnormal rhythm HEART SOUNDS: S1 normal heart sound present and S2 normal heart sound present GI: OTHER: Abdomen soft, distended, diminished bowel sounds in all 4 quadrants, no guarding, no rebound, no rigidity, does have diffuse tenderness in all 4 quadrants Extremity: COMMON NORMALS: no pedal edema Neuro: COMMON NORMALS: patient oriented x3, CN's II-XII intact bilaterally, moves all extremities and no focal motor deficits Psych: COMMON NORMALS: mental status grossly normal Data 12/15/22 04:49 12/15/22 04:49 A&P Assessment and plan (1) Small bowel obstruction: (2) Atrial fibrillation: Plan Distal small bowel obstruction: Appreciate surgical recommendations. Seems to be resolving. NG tube removed. On clear liquid trial. Monitor bowel movements. Bowel regimen. D5 NS at 50 cc an hour. Atrial fibrillation: For now continue with heparin drip. If patient is able to maintain oral intake we will switch to home dose of Eliquis. Hypertension: Goal blood pressure less than 140/90 mmHg. Restart home dose of amlodipine and carvedilol. Discharge plan: Plan to discharge in the next 24 hours if patient continues to tolerate oral diet. Full code Clear liquid diet Heparin drip will suffice as DVT prophylaxis. Attestations Medical Necessity Statement*: Requires further hospitalization for conservative treatment of small bowel obstruction in a patient with history of recurrent bowel obstructions secondary to multiple abdominal surgeries in the past, atrial fibrillation currently on heparin drip Diagnoses Small bowel obstruction K56.609 Atrial fibrillation I48.91
[2022-12-15] MEDS: dextrose 5%-sod chloride 0.9% 1,000 ML 50 ML IV (15:08)
[2022-12-15] MEDS: amlodipine 5 mg Tablet 2.5 MG PO (15:09)
[2022-12-15] MEDS: carvedilol 6.25 mg Tablet PO (17:33)
[2022-12-15] MEDS: acetaminophen 325 mg Tablet 650 MG PO (18:25)
[2022-12-15] MEDS: apixaban 5 mg Tablet PO (20:13)
[2022-12-15] MEDS: TRAMadol 50 mg Tablet PO (22:38)
[2022-12-16 03:53] VITALS: BP 171/79; PULSE 69; RESP 17; TEMP 36.3; O2SAT 97
[2022-12-16 04:59] LABS: Basophils % 0.4 %; Eosinophils # 0.2 10^3/uL (0.0-0.8); Eosinophils % 1.8 %; Hematocrit 41.2 % (36-47); Lymphocytes # 2.5 10^3/uL (0.8-4.8); Lymphocytes % 25.5 %; Mean Corpuscular HGB Conc 31.6 g/dL (30-55); Mean Corpuscular Hemoglobin 30.3 pg (27-33); Mean Platelet Volume 10.4 fL (7.4-10.4); Monocytes # 0.9 10^3/uL (0.2-0.9); Monocytes % 9.3 %; Neutrophils # 6.16 10^3/uL (1.8-7.7); Neutrophils % 62.7 %; Nucleated Red Blood Cells % 0 %; Platelet Count 155 10^3/cmm (157-399); Red Blood Count 4.29 10^6/uL (3.85-5.65); Red Cell Distribution Width 12.7 % (12.1-15.1); White Blood Count 9.84 10^3/uL (3.29-11.43)
[2022-12-16 05:20] LABS: Alanine Aminotransferase 22 U/L (0-33); Albumin Level 3.4 g/dL (3.5-5.2); Alkaline Phosphatase 69 U/L (35-105); Anion Gap 11.5 (5-19); Aspartate Amino Transferase 20 U/L (0-32); Blood Urea Nitrogen 7 mg/dL (8-23); Calcium 8.3 mg/dL (8.5-10.5); Carbon Dioxide 24 mmol/L (22-29); Chloride 108 mmol/L (98-107); Globulin 1.7 g/dL (1.3-4.6); Glucose 94 mg/dL (65-115); Osmolality Calculated 288 mOsm/kg (285-295); Potassium 3.5 mmol/L (3.5-5.1); Sodium 140 mmol/L (136-145); Total Bilirubin 1.2 mg/dL (0.15-1.2); Total Protein 5.1 g/dL (6.6-8.7)
[2022-12-16] MEDS: carvedilol 12.5 mg Tablet PO (05:25)
[2022-12-16] MEDS: acetaminophen 325 mg Tablet 650 MG PO (06:51)
[2022-12-16 07:59] VITALS: BP 121/59; PULSE 80; RESP 18; TEMP 36.8; O2SAT 92
[2022-12-16] MEDS: amlodipine 5 mg Tablet 2.5 MG PO (08:55)
[2022-12-16] MEDS: BuSPIRONE 10 mg Tablet 5 MG PO (08:56)
[2022-12-16] MEDS: pantoprazole 40 mg SDV IVP (08:56)
[2022-12-16] MEDS: apixaban 5 mg Tablet PO (08:56)
--- NOTE | 2022-12-16 10:30 | P.PN_ITS ---
Subjective Subjective: 77-year-old female, who was admitted for small bowel obstruction, conservative management done. Patient has had multiple bowel movements in the last 24 hours, has been tolerating diet. He is ambulating, no significant abdominal pain. Vitals/I&O/Wt Last Vital Signs Temp 98.2 F 12/16/22 07:59 Pulse 80 12/16/22 07:59 Resp 18 12/16/22 07:59 BP 121/59 12/16/22 07:59 Pulse Ox 92 12/16/22 07:59 O2 Del Method Room Air 12/16/22 07:59 FiO2 21 12/14/22 01:53 12/15/22 12/16/22 12/16/22 22:59 06:59 14:59 Intake Total 480 / 1713.90 360 / 360 Balance 480 / 1713.90 360 / 360 Physical Exam Narrative: General : Patient is well developed , no acute distress, oriented x3 Head : Normal cephalic, a-traumatic. Nose : Mucous membranes are without erythema. Lungs : Equal chest rise bilaterally, no use of accessory muscles, trachea is midline. CV : Rate and rhythm are normal. Abdomen : Soft, ND, NT, no g/r/m Extremities : No edema. Upper extremities are normal bilaterally. Back : non-tender to palpation, no CVA tenderness. Data 12/16/22 04:35 12/16/22 04:35 A&P Assessment and plan (1) Small bowel obstruction: Plan After a complete history physical examination and review of all available clinical data the following is my assessment. Patient has shown very good pr ogress after Gastrografin trial done yesterday. X-ray done after Gastrografin trial showed evidence of contrast all the way down in the rectum. Abdominal exam is benign, she is tolerating diet and having bowel movements. Patient is cleared for discharge from the general surgery standpoint. I have had extensive discussion to the patient regarding the possible etiology of her recurrent small bowel obstructions. I have informed that this likely due to adhesions caused by previous intra-abdominal surgeries after extensive discussion patient has decided that she would like to follow-up as outpatient with her primary surgeon in [place], to explore the possibility of additional intervention to relieve the additions in order to prevent future episodes of SBO. I agree with this plan, She can also follow-up in my office as needed. Attestations Medical Necessity Statement*: Patient is cleared for discharge from the general surgery standpoint. Coding Level of Care Code Acute Code for Chg Fwd Diagnoses Small bowel obstruction K56.609
[2022-12-16] MEDS: TRAMadol 50 mg Tablet PO (11:08)
--- NOTE | 2022-12-16 11:45 | P.DS_ITS ---
Discharge Providers Date of Admission: 12/14/22 01:02 Date of Discharge: December 16, 2022 Attending Provider at Admission: Gage Sewell MD Attending Provider at Discharge: Evans Aquino MD Primary Care Provider: Baldomero Britt MD Diagnoses at Discharge Discharge Diagnosis (1) Small bowel obstruction: Status: Acute Reason for Visit Reason for Visit: abdomen pain Brief History: As per HPI: Anju Duffy is a 77 year old female with a past medical history of recurrent bowel obstructions, has had multiple abdominal surgeries, history of atrial fibrillation, history of type 2 diabetes mellitus, CAD, CHF, who presents [facility] due to nausea, vomiting, abdominal pain, lack of stooling for the last 24 hours.? Currently patient sitting up to the side of the bed, she has had a couple episodes of emesis in the emergency room, she is received Haldol, Raegan n, Zofran, but continues to have nauseous episodes, she is feeling quite unwell, I have asked nurse practitioner for patient to receive promethazine.? Also asked for nursing staff to place NG tube, as patient is at high risk of aspiration.? Patient tells me that she been on a brat diet, trying to reduce her risk of recurrent bowel obstructions, she regularly takes milk of magnesia to help keep her bowels regular, however this evening, she had episode of sudden abdominal pain, no fevers, no chills, denies aspiration, no shortness of breath Hospital Course Hospital Course Patient was admitted for further evaluation and management of recurrent SBO. She was started on conservative treatment with IV hydration, NG tube placement and GI decompression. Surgery was consulted. Gradually patient improved and has been tolerating diet for the last 24 hours. Patient was counseled in detail about aggressive bowel regimen with possibility of need for milk of magnesia daily versus around half a bottle every couple of weeks. Patient verbalized understanding. Patient is also due to follow-up with her primary surgeon and in [place]. Her hospitalization was otherwise unremarkable. She has been discharged in hemodynamically stable condition on brat diet with advised to take multiple small meals. Physical Exam Const: COMMON NORMALS: no acute distress and patient oriented x3 HENMT: COMMON NORMALS: normocephalic HEAD & SCALP: normocephalic Eye: COMMON NORMALS: Equal, round and reactive pupils present and EOMs intact bilaterally PUPIL: Yes Equal, round and reactive pupils present Neck/C-Spine: COMMON NORMALS: no JVD Lymph: LYMPHATIC: no lymphadenopathy noted Resp: COMMON NORMALS: normal respiratory effort, No retractions, No use of accessory muscles and clear to auscultation bilaterally AUSCULTATION: clear to auscultation bilaterally Cardio: COMMON NORMALS: no JVD, S1 normal heart sound present and S2 normal heart sound present RATE: Other (Irregularly irregular) RHYTHM: abnormal rhythm HEART SOUNDS: S1 normal heart sound present and S2 normal heart sound present GI: OTHER: Abdomen soft, distended, diminished bowel sounds in all 4 quadrants, no guarding, no rebound, no rigidity, does have diffuse tenderness in all 4 quadrants Extremity: COMMON NORMALS: no pedal edema Neuro: COMMON NORMALS: patient oriented x3, CN's II-XII intact bilaterally, moves all extremities and no focal motor deficits Psych: COMMON NORMALS: mental status grossly normal Discharge Data Studies Completed and Pending Completed Studies During Hospitalization Category Date Time Status CT abdomen pelvis wo con [id number] Stat Cat Scan 12/13/22 20:40 Completed XR abdomen 1V* [id number] Stat Exams 12/15/22 13:25 Completed XR chest 1V portable [id number] Routine Exams 12/14/22 01:17 Completed Pending at discharge Category Date Time Status Platelet Count Q2D Lab 12/18/22 04:00 Ordered Radiology Impressions Abdomen/Pelvis CT 12/13/22 20:40 IMPRESSION: 1. Dilated small bowel loops are again seen with multiple air/fluid levels a different levels, suggestive of distal small bowel obstruction, less likely ileus. 2. Cholecystectomy clips, dilated common bile duct measuring 1.2 cm, dilated common hepatic duct measuring 1.9 cm in diameter, and pneumobilia are unchanged. COMMENTS: Consistent with the [employer]'s Incidental Findings Committee white paper (J Am Patricia Radiol 2018): Any incidental renal lesion less than 1 cm or classified as too small to characterize, or any incidental cystic renal lesion characterized as simple-appearing, is likely benign. No follow-up imaging is recommended for these lesions per consensus recommendations based on imaging criteria. Chest X-Ray 12/14/22 01:17 IMPRESSION: 1. Nasogastric tube is in good projection. 2. No acute abnormalities. Abdomen X-Ray 12/15/22 13:25 IMPRESSION: Transit of luminal bowel contrast to the rectum with no obvious signs of obstruction. Laboratory Results WBC 9.84 10^3/uL (3.29-11.43) 12/16/22 04:35 RBC 4.29 10^6/uL (3.85-5.65) 12/16/22 04:35 Hgb 13.00 g/dL (11.27-16.99) 12/16/22 04:35 Hct 41.2 % (36-47) 12/16/22 04:35 MCV 96.0 fl (85-98) 12/16/22 04:35 MCH 30.3 pg (27-33) 12/16/22 04:35 MCHC 31.6 g/dL (30-55) 12/16/22 04:35 RDW 12.7 % (12.1-15.1) 12/16/22 04:35 Plt Count 155 10^3/cmm (157-399) L 12/16/22 04:35 MPV 10.4 fL (7.4-10.4) 12/16/22 04:35 Neut % (Auto) 62.7 % 12/16/22 04:35 Lymph % (Auto) 25.5 % 12/16/22 04:35 [place] % (Auto) 9.3 % 12/16/22 04:35 Eos % (Auto) 1.8 % 12/16/22 04:35 Baso % (Auto) 0.4 % 12/16/22 04:35 Neut # (Auto) 6.16 10^3/uL (1.8-7.7) 12/16/22 04:35 Lymph # (Auto) 2.5 10^3/uL (0.8-4.8) 12/16/22 04:35 [place] # (Auto) 0.9 10^3/uL (0.2-0.9) 12/16/22 04:35 Eos # (Auto) 0.2 10^3/uL (0.0-0.8) 12/16/22 04:35 Baso # (Auto) 0.0 10^3/uL (0.0-0.1) 12/16/22 04:35 Nucleated RBC % (auto) 0 % 12/16/22 04:35 Nucleated RBCs # 0.0 /100WBC 12/16/22 04:35 APTT 59.3 SECONDS (23.9-36.7) H 12/15/22 13:56 Sodium 140 mmol/L (136-145) 12/16/22 04:35 Potassium 3.5 mmol/L (3.5-5.1) 12/16/22 04:35 Chloride 108 mmol/L (98-107) H 12/16/22 04:35 Carbon Dioxide 24 mmol/L (22-29) 12/16/22 04:35 Anion Gap 11.5 (5-19) 12/16/22 04:35 BUN 7 mg/dL (8-23) L 12/16/22 04:35 Creatinine 0.5 mg/dL (0.5-0.9) 12/16/22 04:35 GFR Calculation Not Reportable 12/16/22 04:35 Glucose 94 mg/dL (65-115) 12/16/22 04:35 Calculated Osmolality 288 mOsm/kg (285-295) 12/16/22 04:35 Lactic Acid 1.5 mmol/L (0.5-2.2) 12/14/22 02:23 Calcium 8.3 mg/dL (8.5-10.5) L 12/16/22 04:35 Phosphorus 2.5 mg/dL (2.5-4.5) 12/15/22 04:49 Magnesium 2.0 mg/dL (1.7-2.3) 12/15/22 04:49 Total Bilirubin 1.2 mg/dL (0.15-1.2) 12/16/22 04:35 AST 20 U/L (0-32) 12/16/22 04:35 ALT 22 U/L (0-33) 12/16/22 04:35 Alkaline Phosphatase 69 U/L (35-105) 12/16/22 04:35 Total Protein 5.1 g/dL (6.6-8.7) L 12/16/22 04:35 Albumin 3.4 g/dL (3.5-5.2) L 12/16/22 04:35 Globulin 1.7 g/dL (1.3-4.6) 12/16/22 04:35 Lipase 102 U/L (13-60) H 12/13/22 20:53 Procalcitonin 0.03 ng/mL (0-0.5) 12/13/22 20:53 Urine Color Yellow (Yellow) 12/13/22 21:48 Urine Appearance Clear (CLEAR) 12/13/22 21:48 Urine pH 8 (5-7) H 12/13/22 21:48 Ur Specific [place] 1.015 (1.005-1.030) 12/13/22 21:48 Urine Protein Neg (Negative) 12/13/22 21:48 Urine Glucose (UA) Norm (Normal) 12/13/22 21:48 Urine Ketones Negative (Negative) 12/13/22 21:48 Urine Blood 2+ (Negative) H 12/13/22 21:48 Urine Nitrate Negative (Negative) 12/13/22 21:48 Urine Bilirubin Neg (Negative) 12/13/22 21:48 Prot Sulfosalicylic Acd Negative (Negative) 12/13/22 21:48 Urine Urobilinogen Neg mg/dL (Negative) 12/13/22 21:48 Ur Leukocyte Esterase Negative (Negative) 12/13/22 21:48 Urine RBC 5-10 /hpf (0-2) H 12/13/22 21:48 Urine WBC 0-4 /hpf (0-5) H 12/13/22 21:48 Ur Squamous Epith Cells 0-4 /hpf (0-5) H 12/13/22 21:48 Amorphous Sediment 1+ /hpf 12/13/22 21:48 Urine Bacteria Trace /hpf (NONE) 12/13/22 21:48 Urine Mucus 1+ /hpf 12/13/22 21:48 Vitals Last Vital Signs Temp 98.2 F 12/16/22 07:59 Pulse 80 12/16/22 07:59 Resp 18 12/16/22 07:59 BP 121/59 12/16/22 07:59 Pulse Ox 92 12/16/22 07:59 O2 Del Method Room Air 12/16/22 07:59 FiO2 21 12/14/22 01:53 Discharge Plan Discharge Patient Disposition: Home Condition: Stable Prescriptions: Continued Eliquis 5 mg tablet 5 mg PO BID Qty: 180 3RF carvedilol 12.5 mg tablet 12.5 mg PO QAM Qty: 90 1RF amlodipine 2.5 mg tablet 2.5 mg PO DAILY Qty: 90 1RF ondansetron HCl 8 mg tablet 8 mg PO TID PRN (Reason: Nausea And Vomiting) Prevagen 1 cap PO DAILY carvedilol 6.25 mg tablet 6.25 mg PO QPM buspirone 5 mg tablet 5 mg PO TID PRN (Reason: Anxiety) magnesium hydroxide [Milk of Magnesia] 400 mg/5 mL suspension 1,200 mg PO QID PRN (Reason: constipation) Qty: 355 0RF polyethylene glycol 3350 [Miralax] 17 gram/dose powder 4 g PO DAILY cyanocobalamin (vitamin B-12) [Vitamin B-12] 1,000 mcg Tablet 500 mcg PO DAILY Qty: 30 0RF Discharge Orders: Discharge Order (Routine); Ordered 12/16/22 Ordered By: Evans Aquino Referrals: Baldomero Britt MD [Primary Care Provider] - (We have notified your physician's clinic of the need for a follow-up appointment to be scheduled. If you have not heard from them within the next 2 business days, please call them directly. You may also reach out to our yard manager at [phone] and she can assist you.) Patient Instructions: Bowel Obstruction (DC), Opioid Safety Discharge Attestations Time Spent in Discharge Care*: greater than 30 min Specific Discharge Activities: educating patient, educating and/or supporting family/caregiver, discussing with pcp/other providers, discussing with case monitor/social workers/dc planners, documenting/other paperwork and evaluating patient/reviewing data Status at Discharge: Cognitive status at discharge: cognitively intact , Behavioral status at discharge: cooperative , Functional status at discharge: independent ambulation , Overall status at discharge: patient is back to baseline Quality Metrics Clinical Quality Measures [ No reported AMI, CVA or VTE this stay] Coding Level of Care Code Acute Code for Chg Fwd Diagnoses Small bowel obstruction K56.609
[2022-12-16 12:00] VITALS: BP 133/62; PULSE 78; RESP 18; O2SAT 96
[2022-12-16 13:32] VITALS: BP 133/62; PULSE 78; RESP 18; O2SAT 96
== END 2022-12-16 13:33 | disposition home or self-care (01) | DRG 390 ==
LOC: ER 12-14 00:50 → MEDSURG 12-14 01:02
PROVIDERS: Admitting Provider Family Medicine; Emergency Provider Physician Assistant; PCP Family Medicine; Visit Provider Student in an Organized Health Care Education/Training Program
DX: K56.609 Unspecified intestinal obstruction, unspecified as to partial versus complete obstruction (principal); I48.91 Unspecified atrial fibrillation; E11.9 Type 2 diabetes mellitus without complications; I10 Essential (primary) hypertension; I25.10 Atherosclerotic heart disease of native coronary artery without angina pectoris; Z79.01 Long term (current) use of anticoagulants; F41.1 Generalized anxiety disorder; Z90.49 Acquired absence of other specified parts of digestive tract; Z86.14 Personal history of Methicillin resistant Staphylococcus aureus infection; I25.2 Old myocardial infarction; Z87.891 Personal history of nicotine dependence
CPT/HCPCS: 36415; 71045; 74018; 74176; 80053; 81001; 83605; 83690; 83735; 84100; 84145; 85025; 85049; 85730; 94664; 96372; 96374; 96375; 96376; 99214; 99285; C9113; J1630; J1644; J2270; J2405; J2550; J2765; J3490; J7042

== ENCOUNTER 2022-12-25 09:26 | Emergency (ER) | payer MEDICARE, OTHER, SELFPAY ==
[2022-12-25 09:32] VITALS: BP 194/92; PULSE 77; RESP 18; TEMP 36.8; O2SAT 99; BMI 25.6
--- NOTE | 2022-12-25 09:33 | W.ED.GIBLEED ---
HPI - GI Bleed General: Chief complaint: GI Bleed Stated complaint: rectal bleeding Time Seen by Provider: 12/25/22 09:27 Source: patient Mode of arrival: ambulatory History of Present Illness: 77-year-old female with a history of multiple bowel obstructions in the past she has had a partial colectomy with a colostomy that was subsequently reversed. She has a history of atrial fibrillation and is on apixaban. 3 days ago she started having blood with bowel movements no blood between bowel movements. She not had any lightheadedness dizziness denies any abdominal pain no dysuria urgency or frequency. No vomiting no melena. MD complaint: gross hematochezia Onset (ago): day(s) (3) Pain Consistency: intermittent Severity: mild Relieving factors: none Exacerbating factors: none Associated symptoms: Reports easy bruising; Denies abdominal pain, chills, fever(s), nausea, rash or vomiting Treatments Prior to Arrival: none Review of Systems Const: Denies: fever(s) or chills Card: Denies: chest pain Resp: Denies: dyspnea GI: Denies: abdominal pain, nausea or vomiting : Denies: dysuria, urinary frequency or urinary urgency Musc: Denies: neck pain or back pain Skin/Breast: Denies: rash Juan Francisco/Lymph: Reports: easy bruising PFSH ED PFSH: Medical History Atrial fibrillation Chronic nausea Colonic diverticular abscess Congestive heart failure Coronary disease Discitis, unspecified, lumbar region DM II (diabetes mellitus, type II), controlled GUILLAUME (generalized anxiety disorder) GERD (gastroesophageal reflux disease) Gout Hx SBO Hypertension Low back pain at multiple sites Lumbar stenosis with neurogenic claudication Migraine MRSA bacteremia Myopericarditis Necrotizing fasciitis Non-ST elevation IN (NSTEMI) Osteoarthritis Pain of both breasts Pericarditis Protein-energy malnutrition Scleroderma Small bowel obstruction Surgical History H/O colectomy H/O hernia repair History of delivery History of cholecystectomy History of neck surgery S/P dilatation of esophageal stricture S/P ANH-BSO Family History Mother Congestive heart failure Social History Smoking and tobacco/nicotine status: former use of tobacco/nicotine Alcohol intake: never Substance/Drug Use: never Lives independently: No Household members: spouse Marital status: Physical Exam Const: COMMON NORMALS: no acute distress GENERAL APPEARANCE: cooperative and comfortable ORIENTATION/CONSCIOUSNESS: Yes awake, Yes oriented to person, Yes oriented to place and Yes oriented to time HENMT: COMMON NORMALS: normocephalic, atraumatic and hearing grossly normal bilaterally HEAD & SCALP: normocephalic and atraumatic Resp: COMMON NORMALS: normal respiratory effort, No retractions, No use of accessory muscles and clear to auscultation bilaterally AUSCULTATION: clear to auscultation bilaterally Cardio: COMMON NORMALS: regular rate, regular rhythm and No murmurs present (Cardio) RATE: regular rate RHYTHM: regular rhythm GI: COMMON NORMALS: Soft to palpation and No hepatosplenomegaly present AUSCULTATION: Yes normoactive bowel sounds PALPATION: Yes Soft to palpation, No Tenderness to palpation present (GI), No Guarding due to palpation present (GI) and Yes No hepatosplenomegaly present OTHER: Visual exam of external rectal there is a rectal fissure at the 12 o'clock position no active bleeding. Extremity: COMMON NORMALS: normal to inspection, capillary refill normal, no clubbing, cyanosis or edema, no calf tenderness and no pedal edema Neuro: SENSORIUM/ORIENTATION: Yes oriented to person, Yes oriented to place and Yes oriented to time Skin: COMMON NORMALS: no rashes or lesions noted GENERAL SKIN EXAM: no rashes or lesions noted Course Vital Signs: Vital signs: Vital Signs Temperature 98.2 F 12/25/22 09:32 Pulse Rate 82 12/25/22 10:00 Respiratory Rate 16 12/25/22 11:27 Blood Pressure 194/92 12/25/22 10:00 Pulse Oximetry 100 12/25/22 10:00 Oxygen Delivery Me thod Room Air 12/25/22 10:00 MDM - GI Bleed Medical Decision Making No active rectal bleeding at this time she is getting blood with passing stool at the rectal fissure. We will have her use Anusol HC topically twice daily follow-up with primary care doctor Medical Records I reviewed the patient's medical records. Lab Data I reviewed the patient's lab results. 12/25/22 09:47 12/25/22 09:47 Laboratory Results WBC 7.65 10^3/uL (3.29-11.43) 12/25/22 09:47 RBC 5.12 10^6/uL (3.85-5.65) 12/25/22 09:47 Hgb 15.30 g/dL (11.27-16.99) 12/25/22 09:47 Hct 47.6 % (36-47) H 12/25/22 09:47 MCV 93.0 fl (85-98) 12/25/22 09:47 MCH 29.9 pg (27-33) 12/25/22 09:47 MCHC 32.1 g/dL (30-55) 12/25/22 09:47 RDW 12.4 % (12.1-15.1) 12/25/22 09:47 Plt Count 250 10^3/cmm (157-399) 12/25/22 09:47 MPV 11.2 fL (7.4-10.4) H 12/25/22 09:47 Neut % (Auto) 52.6 % 12/25/22 09:47 Lymph % (Auto) 32.8 % 12/25/22 09:47 [place] % (Auto) 8.6 % 12/25/22 09:47 Eos % (Auto) 4.4 % 12/25/22 09:47 Baso % (Auto) 0.9 % 12/25/22 09:47 Neut # (Auto) 4.02 10^3/uL (1.8-7.7) 12/25/22 09:47 Lymph # (Auto) 2.5 10^3/uL (0.8-4.8) 12/25/22 09:47 [place] # (Auto) 0.7 10^3/uL (0.2-0.9) 12/25/22 09:47 Eos # (Auto) 0.3 10^3/uL (0.0-0.8) 12/25/22 09:47 Baso # (Auto) 0.1 10^3/uL (0.0-0.1) 12/25/22 09:47 Nucleated RBC % (auto) 0 % 12/25/22 09:47 Nucleated RBCs # 0.0 /100WBC 12/25/22 09:47 Sodium 140 mmol/L (136-145) 12/25/22 09:47 Potassium 4.4 mmol/L (3.5-5.1) 12/25/22 09:47 Chloride 105 mmol/L (98-107) 12/25/22 09:47 Carbon Dioxide 23 mmol/L (22-29) 12/25/22 09:47 Anion Gap 16.4 (5-19) 12/25/22 09:47 BUN 14 mg/dL (8-23) 12/25/22 09:47 Creatinine 0.6 mg/dL (0.5-0.9) 12/25/22 09:47 GFR Calculation Not Reportable 12/25/22 09:47 Glucose 123 mg/dL (65-115) H 12/25/22 09:47 Calculated Osmolality 292 mOsm/kg (285-295) 12/25/22 09:47 Calcium 9.4 mg/dL (8.5-10.5) 12/25/22 09:47 Total Bilirubin 0.7 mg/dL (0.15-1.2) 12/25/22 09:47 AST 24 U/L (0-32) 12/25/22 09:47 ALT 12 U/L (0-33) 12/25/22 09:47 Alkaline Phosphatase 82 U/L (35-105) 12/25/22 09:47 Total Protein 7.0 g/dL (6.6-8.7) 12/25/22 09:47 Albumin 4.3 g/dL (3.5-5.2) 12/25/22 09:47 Globulin 2.7 g/dL (1.3-4.6) 12/25/22 09:47 No radiology studies performed this visit Discharge Plan Discharge Patient Disposition: Home Clinical Impression: Rectal fissure Condition: Stable Prescriptions: New Anusol-HC 2.5 % cream with perineal applicator 1 applic GA BID PRN (Reason: Bleeding/pain) Qty: 30 0RF Miralax 17 gram/dose powder 17 g PO DAILY Qty: 850 0RF No Action Eliquis 5 mg tablet 5 mg PO BID Qty: 180 3RF amlodipine 2.5 mg tablet 2.5 mg PO DAILY Qty: 90 1RF ondansetron HCl 8 mg tablet 8 mg PO TID PRN (Reason: Nausea And Vomiting) Prevagen 1 cap PO DAILY carvedilol 6.25 mg tablet 6.25 mg PO QPM buspirone 5 mg tablet 5 mg PO TID PRN (Reason: Anxiety) magnesium hydroxide [Milk of Magnesia] 400 mg/5 mL suspension 1,200 mg PO QID PRN (Reason: constipation) Qty: 355 0RF polyethylene glycol 3350 [Miralax] 17 gram/dose powder 4 g PO DAILY cyanocobalamin (vitamin B-12) [Vitamin B-12] 1,000 mcg Tablet 500 mcg PO DAILY Qty: 30 0RF Discharge Orders: Discharge ED (Routine); Ordered 12/25/22 Ordered By: Bhargav Mendoza Referrals: Baldomero Britt MD [Primary Care Provider] - Discharge Diet: Usual diet Patient Instructions: Opioid Safety, Pain Management Activity Restrictions/Additional Instructions: Follow-up with your doctor regarding the rectal fissure within the next 7 to 10 days sooner if you have further problems. Continue your Eliquis increase your MiraLAX to 17 g (1 capful) daily. Coding Level of Care Code ED Gas Or Water Meter Installer for Tad Sanderson
[2022-12-25 09:58] LABS: Basophils # 0.1 10^3/uL (0.0-0.1); Basophils % 0.9 %; Eosinophils # 0.3 10^3/uL (0.0-0.8); Eosinophils % 4.4 %; Hematocrit 47.6 % (36-47); Lymphocytes # 2.5 10^3/uL (0.8-4.8); Lymphocytes % 32.8 %; Mean Corpuscular HGB Conc 32.1 g/dL (30-55); Mean Corpuscular Hemoglobin 29.9 pg (27-33); Mean Platelet Volume 11.2 fL (7.4-10.4); Monocytes # 0.7 10^3/uL (0.2-0.9); Monocytes % 8.6 %; Neutrophils # 4.02 10^3/uL (1.8-7.7); Neutrophils % 52.6 %; Nucleated Red Blood Cells % 0 %; Platelet Count 250 10^3/cmm (157-399); Red Blood Count 5.12 10^6/uL (3.85-5.65); Red Cell Distribution Width 12.4 % (12.1-15.1); White Blood Count 7.65 10^3/uL (3.29-11.43)
[2022-12-25 10:00] VITALS: BP 194/92; PULSE 82; RESP 16; O2SAT 100
--- NOTE | 2022-12-25 10:07 | PC.PHAR ---
PT ASKED ME NOT TO CONTACT (WHO TAKES CARE OF HER MEDICATIONS) AT THIS TIME. HE IS IN [place] AND HE WILL TURN AROUND AND COME RIGHT BACK. I HAVE VERIFIED MEDS WITH YAIR AND WILL FOLLOW UP WITH . 12/25/22
--- NOTE | 2022-12-25 10:15 | PC.NURSE ---
pt changed into gown for rectal exam, Dr. Mendoza notified
[2022-12-25 10:24] LABS: Albumin Level 4.3 g/dL (3.5-5.2); Alkaline Phosphatase 82 U/L (35-105); Blood Urea Nitrogen 14 mg/dL (8-23); Calcium 9.4 mg/dL (8.5-10.5); Carbon Dioxide 23 mmol/L (22-29); Chloride 105 mmol/L (98-107); Globulin 2.7 g/dL (1.3-4.6); Glucose 123 mg/dL (65-115); Osmolality Calculated 292 mOsm/kg (285-295); Sodium 140 mmol/L (136-145); Total Bilirubin 0.7 mg/dL (0.15-1.2)
[2022-12-25 10:45] LABS: Alanine Aminotransferase 12 U/L (0-33); Anion Gap 16.4 (5-19); Aspartate Amino Transferase 24 U/L (0-32); Potassium 4.4 mmol/L (3.5-5.1)
[2022-12-25 11:27] VITALS: RESP 16
== END 2022-12-25 11:28 | disposition home or self-care (01) ==
PROVIDERS: Emergency Provider Family Medicine; PCP Family Medicine
DX: K60.2 Anal fissure, unspecified (principal); Z79.01 Long term (current) use of anticoagulants; Z87.891 Personal history of nicotine dependence; I11.0 Hypertensive heart disease with heart failure; I50.9 Heart failure, unspecified; I25.10 Atherosclerotic heart disease of native coronary artery without angina pectoris; E11.9 Type 2 diabetes mellitus without complications; I25.2 Old myocardial infarction
CPT/HCPCS: 80053; 85025; 99283

== ENCOUNTER 2023-02-03 21:11 | Emergency (ER) | payer MEDICARE, OTHER, SELFPAY ==
[2023-02-03 21:12] VITALS: BP 184/96; PULSE 81; RESP 20; TEMP 36.8; O2SAT 99; BMI 25.6
--- NOTE | 2023-02-03 21:14 | CTR_ITS ---
PROCEDURE INFORMATION: Exam: CT Abdomen And Pelvis With Contrast Exam date and time: 02/03/2023 11:06 PM Age: 77 years old Clinical indication: Nausea and vomiting; Abdominal pain; Generalized; Prior surgery; Surgery date: 6+ months; Surgery type: Gb. Hernia repair. Colectomy. Hysterectomy; Patient HX: Severe abd pain with n/v. History of recurrent sbo. TECHNIQUE: Imaging protocol: Computed tomography of the abdomen and pelvis with contrast. Radiation optimization: All CT scans at this facility use at least one of these dose optimization techniques: automated exposure control; mA and/or kV adjustment per patient size (includes targeted exams where dose is matched to clinical indication); or iterative reconstruction. Contrast material: OMNI 350; Contrast volume: 100 ml; Contrast route: INTRAVENOUS (IV); REPORTING DATA: Count of CT and Cardiac NM exams in prior 12 months: This patient has received 6 known CTs and 0 known cardiac nuclear medicine studies in the 12 months prior to the current study. COMPARISON: CT abdomen pelvis wo con [id number] 12/13/2022 11:46 PM RADIATION DOSE METRICS: Total DLP (mGy-cm): 1170.87 FINDINGS: Diaphragm: Small hiatal hernia. Liver: See Gallbladder and bile ducts finding. Gallbladder and bile ducts: Cholecystectomy. Unchanged pneumobilia and intrahepatic and extrahepatic bile duct dilation. There is abrupt cutoff of the distal common bile duct, which appears similar to 12/13/2022 exam, but slightly increased in conspicuity from 11/11/2022 exam. Pancreas: Unremarkable. No duct dilation. Spleen: Unremarkable. Adrenal glands: Unremarkable. Kidneys and ureters: Bilateral simple renal cysts and too small to characterize subcentimeter hypodensities. Otherwise unremarkable. Stomach and bowel: Surgical changes of partial bowel resection. Similar appearance of diffuse small bowel distention with few dilated loops with air-fluid levels. Moderate colonic stool burden. Appendix: No evidence of appendicitis. Intraperitoneal space: Unremarkable. No free air. No significant fluid collection. Vasculature: Atherosclerosis. No aortic aneurysm. Lymph nodes: No enlarged lymph nodes. Urinary bladder: Unremarkable as visualized. Reproductive: Hysterectomy. Bones/joints: No acute fracture. No aggressive osseous lesions. Soft tissues: Surgical changes in the ventral abdominal wall. CT/CT abdomen pelvis w con* [id number] IMPRESSION: 1. Redemonstrated diffuse small bowel distention with few dilated loops of distal small bowel with air-fluid levels, not significantly changed dating back to 11/11/2022 exam, and without discrete transition, could represent ileus and/or partial small bowel obstruction. 2. Similar surgical changes of prior cholecystectomy with pneumobilia and bile duct dilation. There is abrupt cutoff of the distal common bile duct, similar to 12/13/2022, slightly more prominent compared to 11/11/2022. Findings raise suspicion for stricture versus neoplasm. This could be further evaluated with nonemergent MRI/MRCP, as clinically indicated.
--- NOTE | 2023-02-03 21:14 | W.ED.ABDPA2 ---
Documented by User: Austen Martinez MD 02/04/23 04:10 HPI - Abdominal Pain General: Chief Complaint: Abdominal Pain Stated Complaint: ABD PAIN Time Seen by Provider: 02/03/23 21:12 Source: patient and EMS Mode of arrival: EMS Limitations: no limitations History of Present Illness: 77-year-old female is very well-known to the ER has history of multiple small bowel obstructions in the past. States today she been having abdominal pain along with vomiting and feels like her previous bowel obstruction she rates her pain a 6 out of 10 denies any worsening proving factors denies any fevers. Associated Symptoms: Reports nausea and vomiting; Denies chills, diarrhea, dysuria and fever(s) Review of Systems Const: Denies: fever(s), chills, body aches or change in appetite Eyes: Denies: blurry vision or eye discomfort ENMT: Denies: throat pain or dental pain Card: Denies: chest pain Resp: Denies: dyspnea GI: Reports: abdominal pain, nausea and vomiting; Denies: diarrhea : Denies: dysuria Musc: Denies: neck pain or back pain Skin/Breast: Denies: rash Neuro: Denies: headache(s) PFSH ED PFSH: Medical History Atrial fibrillation Chronic nausea Colonic diverticular abscess Congestive heart failure Coronary disease Discitis, unspecified, lumbar region DM II (diabetes mellitus, type II), controlled GUILLAUME (generalized anxiety disorder) GERD (gastroesophageal reflux disease) Gout Hx SBO Hypertension Low back pain at multiple sites Lumbar stenosis with neurogenic claudication Migraine MRSA bacteremia Myopericarditis Necrotizing fasciitis Non-ST elevation SC (NSTEMI) Osteoarthritis Pain of both breasts Pericarditis Protein-energy malnutrition Scleroderma Small bowel obstruction Surgical History H/O colectomy H/O hernia repair History of delivery History of cholecystectomy History of neck surgery S/P dilatation of esophageal stricture S/P ANH-BSO Family History Mother Congestive heart failure Social History Smoking and tobacco/nicotine status: former use of tobacco/nicotine Alcohol intake: never Substance/Drug Use: never Lives independently: No Household members: spouse Marital status: Physical Exam Const: COMMON NORMALS: patient oriented x3 HENMT: COMMON NORMALS: normocephalic and atraumatic HEAD & SCALP: normocephalic and atraumatic Eye: COMMON NORMALS: Equal, round and reactive pupils present and EOMs intact bilaterally PUPIL: Yes Equal, round and reactive pupils present Neck/C-Spine: COMMON NORMALS: full ROM and supple Chest: COMMONS NORMALS: normal inspection of the chest Resp: COMMON NORMALS: normal respiratory effort Cardio: COMMON NORMALS: regular rate, regular rhythm and No murmurs present (Cardio) RATE: regular rate RHYTHM: regular rhythm GI: COMMON NORMALS: Soft to palpation, non-tender and no masses PALPATION: Yes Soft to palpation OTHER: decreased bowel sounds Extremity: COMMON NORMALS: normal to inspection and full ROM Neuro: COMMON NORMALS: patient oriented x3, moves all extremities and no focal motor deficits Psych: COMMON NORMALS: mental status grossly normal, Normal thought process present and cooperative THOUGHT PROCESS: Normal thought process present Skin: COMMON NORMALS: no rashes or lesions noted and no wounds GENERAL SKIN EXAM: no rashes or lesions noted Course Vital Signs: Vital signs: Vital Signs Temperature 98.1 F 02/04/23 02:49 Pulse Rate 64 02/04/23 06:38 Respiratory Rate 12 02/04/23 06:38 Blood Pressure 109/60 02/04/23 06:38 Pulse Oximetry 98 02/04/23 06:38 Oxygen Delivery Me thod Nasal Cannula 02/04/23 05:49 Oxygen Flow Rate 2 02/04/23 05:49 MDM - Abdominal Pain Medical Decision Making Patient presents here with abdominal pain vomiting she is found to have a small bowel obstruction. Patient does have elevated lipase CT showed common bile duct dilatation with possible stricture or mass did speak to surgeon who recommended transfer spoke to [facility] who recommended transfer to [facility] have spoken to physician at [facility] patient is currently on the wait list there. Medical Records I reviewed the patient's medical records. Lab Data I reviewed the patient's lab results. 02/04/23 07:55 02/03/23 23:30 Labs/Radiology: Radiology Impressions Abdomen/Pelvis CT 02/03/23 21:14 IMPRESSION: 1. Redemonstrated diffuse small bowel distention with few dilated loops of distal small bowel with air-fluid levels, not significantly changed dating back to 11/11/2022 exam, and without discrete transition, could represent ileus and/or partial small bowel obstruction. 2. Similar surgical changes of prior cholecystectomy with pneumobilia and bile duct dilation. There is abrupt cutoff of the distal common bile duct, similar to 12/13/2022, slightly more prominent compared to 11/11/2022. Findings raise suspicion for stricture versus neoplasm. This could be further evaluated with nonemergent MRI/MRCP, as clinically indicated. Chest X-Ray 02/04/23 00:18 IMPRESSION: Nasogastric tube with side hole and tip in the stomach. Laboratory Results WBC 16.50 10^3/uL (3.29-11.43) H 02/04/23 07:55 RBC 5.23 10^6/uL (3.85-5.65) 02/04/23 07:55 Hgb 15.80 g/dL (11.27-16.99) 02/04/23 07:55 Hct 48.5 % (36-47) H 02/04/23 07:55 MCV 92.7 fl (85-98) 02/04/23 07:55 MCH 30.2 pg (27-33) 02/04/23 07:55 MCHC 32.6 g/dL (30-55) 02/04/23 07:55 RDW 12.6 % (12.1-15.1) 02/04/23 07:55 Plt Count 202 10^3/cmm (157-399) 02/04/23 07:55 MPV 10.5 fL (7.4-10.4) H 02/04/23 07:55 Neut % (Auto) 86.9 % 02/04/23 07:55 Lymph % (Auto) 5.1 % 02/04/23 07:55 Wolfe % (Auto) 7.3 % 02/04/23 07:55 Eos % (Auto) 0.1 % 02/04/23 07:55 Baso % (Auto) 0.2 % 02/04/23 07:55 Neut # (Auto) 14.35 10^3/uL (1.8-7.7) H 02/04/23 07:55 Lymph # (Auto) 0.8 10^3/uL (0.8-4.8) 02/04/23 07:55 Wolfe # (Auto) 1.2 10^3/uL (0.2-0.9) H 02/04/23 07:55 Eos # (Auto) 0.0 10^3/uL (0.0-0.8) 02/04/23 07:55 Baso # (Auto) 0.0 10^3/uL (0.0-0.1) 02/04/23 07:55 Nucleated RBC % (auto) 0 % 02/04/23 07:55 Nucleated RBCs # 0.0 /100WBC 02/04/23 07:55 PT 17.70 SECONDS (12.1-14.9) H 02/04/23 00:00 INR 1.41 (0.8-1.2) H 02/04/23 00:00 Sodium 137 mmol/L (136-145) 02/03/23 23:30 Potassium 4.3 mmol/L (3.5-5.1) 02/03/23 23:30 Chloride 103 mmol/L (98-107) 02/03/23 23:30 Carbon Dioxide 22 mmol/L (22-29) 02/03/23 23:30 Anion Gap 16.3 (5-19) 02/03/23 23:30 BUN 19 mg/dL (8-23) 02/03/23 23:30 Creatinine 0.5 mg/dL (0.5-0.9) 02/03/23 23:30 GFR Calculation Not Reportable 02/03/23 23:30 Glucose 147 mg/dL (65-115) H 02/03/23 23:30 Calculated Osmolality 289 mOsm/kg (285-295) 02/03/23 23:30 Calcium 8.7 mg/dL (8.5-10.5) 02/03/23 23:30 Total Bilirubin 1.0 mg/dL (0.15-1.2) 02/03/23 23:30 AST 48 U/L (0-32) H 02/03/23 23:30 ALT 28 U/L (0-33) 02/03/23 23:30 Alkaline Phosphatase 76 U/L (35-105) 02/03/23 23:30 Total Protein 6.2 g/dL (6.6-8.7) L 02/03/23 23:30 Albumin 4.0 g/dL (3.5-5.2) 02/03/23 23:30 Globulin 2.2 g/dL (1.3-4.6) 02/03/23 23:30 Lipase 1165 U/L (13-60) H 02/03/23 23:30 All radiology interpretation(s) finalized by discharge Discharge Plan Discharge Patient Disposition: Xfer Short-Term Hosp Clinical Impression: Small bowel obstruction, Pancreatitis, Common bile duct (CBD) obstruction Condition: Stable Prescriptions: No Action Eliquis 5 mg tablet 5 mg PO BID Qty: 180 3RF ondansetron HCl 8 mg tablet 8 mg PO TID PRN (Reason: Nausea And Vomiting) Prevagen 1 cap PO QAM carvedilol 6.25 mg tablet 6.25 mg PO BEDTIME hydrocortisone [Anusol-HC] 2.5 % cream with perineal applicator 1 applic ND BID PRN (Reason: Bleeding/pain) Qty: 30 0RF buspirone 5 mg tablet 5 mg PO TID PRN (Reason: Anxiety) magnesium hydroxide [Milk of Magnesia] 400 mg/5 mL suspension 1,200 mg PO QID PRN (Reason: constipation) Qty: 355 0RF sumatriptan succinate 100 mg Tablet 100 mg PO Q2H MDD 2 doses PRN (Reason: Migraine Headache) Rx Instructions: do not exceed 2 doses per 24 hrs amlodipine 2.5 mg tablet 2.5 mg PO QAM carvedilol 25 mg tablet 12.5 mg PO QAM Vitamin B-12 1,000 mcg tablet 500 mcg PO QAM Miralax 17 gram/dose powder 17 g PO QAM Referrals: Baldomero Britt MD [Primary Care Provider] - Coding Level of Care Code ED General Maintenance Engineer for Chg Fwd Documented by User: Bhargav Mendoza DO 02/04/23 08:36 HPI - Abdominal Pain General: Chief Complaint: Abdominal Pain Stated Complaint: ABD PAIN Time Seen by Provider: 02/03/23 21:12 PFSH ED PFSH: Medical History Atrial fibrillation Chronic nausea Colonic diverticular abscess Congestive heart failure Coronary disease Discitis, unspecified, lumbar region DM II (diabetes mellitus, type II), controlled GUILLAUME (generalized anxiety disorder) GERD (gastroesophageal reflux disease) Gout Hx SBO Hypertension Low back pain at multiple sites Lumbar stenosis with neurogenic claudication Migraine MRSA bacteremia Myopericarditis Necrotizing fasciitis Non-ST elevation SC (NSTEMI) Osteoarthritis Pain of both breasts Pericarditis Protein-energy malnutrition Scleroderma Small bowel obstruction Surgical History H/O colectomy H/O hernia repair History of delivery History of cholecystectomy History of neck surgery S/P dilatation of esophageal stricture S/P ANH-BSO Family History Mother Congestive heart failure Social History Smoking and tobacco/nicotine status: former use of tobacco/nicotine Alcohol intake: never Substance/Drug Use: never Lives independently: No Household members: spouse Marital status: Course Vital Signs: Vital signs: Vital Signs Temperature 98.1 F 02/04/23 02:49 Pulse Rate 64 02/04/23 06:38 Respiratory Rate 12 02/04/23 06:38 Blood Pressure 109/60 02/04/23 06:38 Pulse Oximetry 98 02/04/23 06:38 Oxygen Delivery Me thod Nasal Cannula 02/04/23 05:49 Oxygen Flow Rate 2 02/04/23 05:49 MDM - Abdominal Pain Medical Decision Making Patient presents here with abdominal pain vomiting she is found to have a small bowel obstruction. Patient does have elevated lipase CT showed common bile duct dilatation with possible stricture or mass did speak to surgeon who recommended transfer spoke to [facility] who recommended transfer to [facility] have spoken to physician at [facility] patient is currently on the wait list there. Assumed care at change of shift discussed case with Dr. Martinez and reviewed the chart. Repeat labs are this morning including cultures and lactate. Started on Zosyn prophylactically. [facility] is excepted the patient but does not have any bed availability. We contacted them again this morning they still do not have an potential timeframe for the availability of a bed. We called several other facilities. Last night they had called [facility] they had declined due to feeling patient needed a higher level of care. We were able to get [facility] to accept the patient Dr. Hope. Will transfer via ambulance. Lab Data 02/04/23 07:55 02/03/23 23:30 Labs/Radiology: Radiology Impressions Abdomen/Pelvis CT 02/03/23 21:14 IMPRESSION: 1. Redemonstrated diffuse small bowel distention with few dilated loops of distal small bowel with air-fluid levels, not significantly changed dating back to 11/11/2022 exam, and without discrete transition, could represent ileus and/or partial small bowel obstruction. 2. Similar surgical changes of prior cholecystectomy with pneumobilia and bile duct dilation. There is abrupt cutoff of the distal common bile duct, similar to 12/13/2022, slightly more prominent compared to 11/11/2022. Findings raise suspicion for stricture versus neoplasm. This could be further evaluated with nonemergent MRI/MRCP, as clinically indicated. Chest X-Ray 02/04/23 00:18 IMPRESSION: Nasogastric tube with side hole and tip in the stomach. Laboratory Results WBC 16.50 10^3/uL (3.29-11.43) H 02/04/23 07:55 RBC 5.23 10^6/uL (3.85-5.65) 02/04/23 07:55 Hgb 15.80 g/dL (11.27-16.99) 02/04/23 07:55 Hct 48.5 % (36-47) H 02/04/23 07:55 MCV 92.7 fl (85-98) 02/04/23 07:55 MCH 30.2 pg (27-33) 02/04/23 07:55 MCHC 32.6 g/dL (30-55) 02/04/23 07:55 RDW 12.6 % (12.1-15.1) 02/04/23 07:55 Plt Count 202 10^3/cmm (157-399) 02/04/23 07:55 MPV 10.5 fL (7.4-10.4) H 02/04/23 07:55 Neut % (Auto) 86.9 % 02/04/23 07:55 Lymph % (Auto) 5.1 % 02/04/23 07:55 Wolfe % (Auto) 7.3 % 02/04/23 07:55 Eos % (Auto) 0.1 % 02/04/23 07:55 Baso % (Auto) 0.2 % 02/04/23 07:55 Neut # (Auto) 14.35 10^3/uL (1.8-7.7) H 02/04/23 07:55 Lymph # (Auto) 0.8 10^3/uL (0.8-4.8) 02/04/23 07:55 Wolfe # (Auto) 1.2 10^3/uL (0.2-0.9) H 02/04/23 07:55 Eos # (Auto) 0.0 10^3/uL (0.0-0.8) 02/04/23 07:55 Baso # (Auto) 0.0 10^3/uL (0.0-0.1) 02/04/23 07:55 Nucleated RBC % (auto) 0 % 02/04/23 07:55 Nucleated RBCs # 0.0 /100WBC 02/04/23 07:55 PT 17.70 SECONDS (12.1-14.9) H 02/04/23 00:00 INR 1.41 (0.8-1.2) H 02/04/23 00:00 Sodium 137 mmol/L (136-145) 02/03/23 23:30 Potassium 4.3 mmol/L (3.5-5.1) 02/03/23 23:30 Chloride 103 mmol/L (98-107) 02/03/23 23:30 Carbon Dioxide 22 mmol/L (22-29) 02/03/23 23:30 Anion Gap 16.3 (5-19) 02/03/23 23:30 BUN 19 mg/dL (8-23) 02/03/23 23:30 Creatinine 0.5 mg/dL (0.5-0.9) 02/03/23 23:30 GFR Calculation Not Reportable 02/03/23 23:30 Glucose 147 mg/dL (65-115) H 02/03/23 23:30 Calculated Osmolality 289 mOsm/kg (285-295) 02/03/23 23:30 Calcium 8.7 mg/dL (8.5-10.5) 02/03/23 23:30 Total Bilirubin 1.0 mg/dL (0.15-1.2) 02/03/23 23:30 AST 48 U/L (0-32) H 02/03/23 23:30 ALT 28 U/L (0-33) 02/03/23 23:30 Alkaline Phosphatase 76 U/L (35-105) 02/03/23 23:30 Total Protein 6.2 g/dL (6.6-8.7) L 02/03/23 23:30 Albumin 4.0 g/dL (3.5-5.2) 02/03/23 23:30 Globulin 2.2 g/dL (1.3-4.6) 02/03/23 23:30 Lipase 1165 U/L (13-60) H 02/03/23 23:30 Discharge Plan Discharge Patient Disposition: Xfer Short-Term Hosp Clinical Impression: Small bowel obstruction, Pancreatitis, Common bile duct (CBD) obstruction Condition: Stable Prescriptions: No Action Eliquis 5 mg tablet 5 mg PO BID Qty: 180 3RF ondansetron HCl 8 mg tablet 8 mg PO TID PRN (Reason: Nausea And Vomiting) Prevagen 1 cap PO QAM carvedilol 6.25 mg tablet 6.25 mg PO BEDTIME hydrocortisone [Anusol-HC] 2.5 % cream with perineal applicator 1 applic ND BID PRN (Reason: Bleeding/pain) Qty: 30 0RF buspirone 5 mg tablet 5 mg PO TID PRN (Reason: Anxiety) magnesium hydroxide [Milk of Magnesia] 400 mg/5 mL suspension 1,200 mg PO QID PRN (Reason: constipation) Qty: 355 0RF sumatriptan succinate 100 mg Tablet 100 mg PO Q2H MDD 2 doses PRN (Reason: Migraine Headache) Rx Instructions: do not exceed 2 doses per 24 hrs amlodipine 2.5 mg tablet 2.5 mg PO QAM carvedilol 25 mg tablet 12.5 mg PO QAM Vitamin B-12 1,000 mcg tablet 500 mcg PO QAM Miralax 17 gram/dose powder 17 g PO QAM Referrals: Baldomero Britt MD [Primary Care Provider] - Coding Level of Care Code ED General Maintenance Engineer for Chg Kin
[2023-02-03 21:59] VITALS: BP 184/96; PULSE 108; RESP 15; O2SAT 99
[2023-02-03 22:12] VITALS: RESP 16; O2SAT 99
[2023-02-03] MEDS: morphine 4 mg/mL SDV 1 mL IM (22:12)
[2023-02-03] MEDS: ondansetron 2 mg/ML SDV 2 mL 4 MG IM (22:12)
[2023-02-03 22:27] VITALS: BP 181/79; PULSE 76; RESP 19; O2SAT 97
[2023-02-03] MEDS: sodium chloride 0.9% 1,000 ML 999 ML IV (22:27)
[2023-02-03 23:00] VITALS: BP 156/65; PULSE 80; O2SAT 97
[2023-02-03] MEDS: iohexol 350 mg/mL 500 mL Btl (per mL) IV (23:09)
[2023-02-03 23:36] LABS: Basophils # 0.1 10^3/uL (0.0-0.1); Basophils % 0.4 %; Eosinophils # 0.3 10^3/uL (0.0-0.8); Eosinophils % 1.8 %; Hematocrit 51.9 % (36-47); Lymphocytes % 6.8 %; Mean Corpuscular HGB Conc 31.2 g/dL (30-55); Mean Corpuscular Volume 96.1 fl (85-98); Mean Platelet Volume 10.8 fL (7.4-10.4); Monocytes # 0.8 10^3/uL (0.2-0.9); Monocytes % 5.9 %; Neutrophils # 11.83 10^3/uL (1.8-7.7); Neutrophils % 84.8 %; Nucleated Red Blood Cells % 0 %; Platelet Count 170 10^3/cmm (157-399); Red Cell Distribution Width 12.3 % (12.1-15.1); White Blood Count 13.95 10^3/uL (3.29-11.43)
[2023-02-03 23:59] LABS: Alkaline Phosphatase 76 U/L (35-105); Blood Urea Nitrogen 19 mg/dL (8-23); Calcium 8.7 mg/dL (8.5-10.5); Carbon Dioxide 22 mmol/L (22-29); Chloride 103 mmol/L (98-107); Globulin 2.2 g/dL (1.3-4.6); Osmolality Calculated 289 mOsm/kg (285-295); Sodium 137 mmol/L (136-145)
[2023-02-04] VITALS (10 sets, daily range): BP systolic 102–124; BP diastolic 56–98; PULSE 62–78; RESP 12–20; TEMP 36.7; O2SAT 96–100
[2023-02-04 00:06] LABS: Alanine Aminotransferase 28 U/L (0-33); Anion Gap 16.3 (5-19); Aspartate Amino Transferase 48 U/L (0-32); Lipase 1165 U/L (13-60); Potassium 4.3 mmol/L (3.5-5.1)
[2023-02-04 00:07] LABS: Glucose 147 mg/dL (65-115); Total Protein 6.2 g/dL (6.6-8.7)
--- NOTE | 2023-02-04 00:18 | XRR_ITS ---
PROCEDURE INFORMATION: Exam: XR Chest Exam date and time: 02/04/2023 12:33 AM Age: 77 years old Clinical indication: Device placement; Ng tube; Prior surgery; Surgery date: 6+ months; Surgery type: Gb; Patient HX: Check S/P ng placement; Additional info: Ng tube confirmstion TECHNIQUE: Imaging protocol: Radiologic exam of the chest. Views: 1 view. COMPARISON: CR XR chest 1V portable [id number] 12/14/2022 1:21 AM FINDINGS: Tubes, catheters and devices: Nasogastric tube with side hole and tip in the stomach. Lungs: No consolidation. Pleural spaces: No large pleural effusion. No pneumothorax. Heart/Mediastinum: Unremarkable cardiomediastinal silhouette. Bones/joints: No acute abnormality. XR/XR chest 1V portable [id number] IMPRESSION: Nasogastric tube with side hole and tip in the stomach.
[2023-02-04 00:19] LABS: INR 1.41 (0.8-1.2)
[2023-02-04] MEDS: HYDROmorphone 1 mg/mL INJ 1 mL IVP (00:32)
--- NOTE | 2023-02-04 00:42 | PC.NURSE ---
this nurse and Dr. Martinez spoke with pt and about transfer needs. pt and verbalized understanding of need for transfer d/t GI. No further questions.
[2023-02-04] MEDS: sodium chloride 0.9% 1,000 ML 125 ML IV (03:27)
--- NOTE | 2023-02-04 03:45 | PC.NURSE ---
updated pt and on transfer delay. pt and aware and had no further questions. went home and states he would be back around 0700 02/04/2023.
--- NOTE | 2023-02-04 04:37 | PC.NURSE ---
Addendum entered by Juliet Magana RN 02/04/23 04:43: Normal Saline currently infusing at 125 mL/hr Original Note: pt resting in bed on 2L NC, oxygen sat 99%, even and unlabored respirations. NG tube patent and draining, suction set on intermittent at this time. pt has call light in reach. no further updates on transfer at this time. HOB elevated and lights on at patients request. this nurse asked pt if she wanted to change into gown, pt denied. pt verbalized no further needs at this time.
[2023-02-04 08:09] LABS: Basophils % 0.2 %; Eosinophils % 0.1 %; Hematocrit 48.5 % (36-47); Lymphocytes # 0.8 10^3/uL (0.8-4.8); Lymphocytes % 5.1 %; Mean Corpuscular HGB Conc 32.6 g/dL (30-55); Mean Corpuscular Hemoglobin 30.2 pg (27-33); Mean Corpuscular Volume 92.7 fl (85-98); Mean Platelet Volume 10.5 fL (7.4-10.4); Monocytes # 1.2 10^3/uL (0.2-0.9); Monocytes % 7.3 %; Neutrophils # 14.35 10^3/uL (1.8-7.7); Neutrophils % 86.9 %; Nucleated Red Blood Cells % 0 %; Platelet Count 202 10^3/cmm (157-399); Red Blood Count 5.23 10^6/uL (3.85-5.65); Red Cell Distribution Width 12.6 % (12.1-15.1)
[2023-02-04] MEDS: piperacillin-tazobactam 3.375 GM in sodium chloride 0.9% (plus) 50 ML IV (08:12)
--- NOTE | 2023-02-04 08:36 | PC.PHAR ---
pts bill verified pts medications-states the pt takes coreg 12.5mg in the am (ext shows last filled 25mg take 12.5mg bid filled 09/29/22 90d/s) and 6.25mg hs (ext shows last filled 01/07/23 90d/s) notes are made in the pharmacy comments
[2023-02-04 08:39] LABS: Alanine Aminotransferase 121 U/L (0-33); Albumin Level 4.3 g/dL (3.5-5.2); Alkaline Phosphatase 100 U/L (35-105); Aspartate Amino Transferase 123 U/L (0-32); Blood Urea Nitrogen 19 mg/dL (8-23); Calcium 9.1 mg/dL (8.5-10.5); Carbon Dioxide 30 mmol/L (22-29); Chloride 105 mmol/L (98-107); Globulin 2.4 g/dL (1.3-4.6); Glucose 190 mg/dL (65-115); Lactic Sepsis W/Reflex 1.6 mmol/L (0.5-2.2); Lipase 145 U/L (13-60); Osmolality Calculated 301 mOsm/kg (285-295); Sodium 142 mmol/L (136-145); Total Bilirubin 1.3 mg/dL (0.15-1.2); Total Protein 6.7 g/dL (6.6-8.7)
--- NOTE | 2023-02-04 09:02 | PC.NURSE ---
THIS RN ASSUMED CARE AT THIS TIME
--- NOTE | 2023-02-04 10:38 | PC.NURSE ---
report given to medics for transport, care transferred.
== END 2023-02-04 10:38 | disposition short-term general hospital (02) ==
PROVIDERS: Emergency Medicine; Emergency Provider Family Medicine; PCP Family Medicine
DX: K56.609 Unspecified intestinal obstruction, unspecified as to partial versus complete obstruction (principal); K85.90 Acute pancreatitis without necrosis or infection, unspecified; K83.1 Obstruction of bile duct; Z79.01 Long term (current) use of anticoagulants; I11.0 Hypertensive heart disease with heart failure; I50.9 Heart failure, unspecified; I25.10 Atherosclerotic heart disease of native coronary artery without angina pectoris; E11.9 Type 2 diabetes mellitus without complications; I25.2 Old myocardial infarction; Z87.891 Personal history of nicotine dependence
CPT/HCPCS: 36415; 71045; 74177; 80053; 83605; 83690; 85025; 85610; 87040; 96365; 96372; 96375; 99285; J1170; J2270; J2405; J2543; J7030; Q9967

== ENCOUNTER 2023-02-19 00:24 | Emergency (ER) | payer MEDICARE, OTHER, SELFPAY ==
--- NOTE | 2023-02-19 00:28 | W.ED.ABDPA2 ---
HPI - Abdominal Pain General: Chief Complaint: Abdominal Pain Stated Complaint: abdomen pain Time Seen by Provider: 02/19/23 00:25 History of Present Illness: 77-year-old female presents emergency department complaints of abdominal pain. She states she was seen on 02/03/2023 and was found to have a ileus/small bowel obstruction for which she was treated at that time. She states she was transferred from here to [facility] in [facility] and was seen by GI doctor that stated that she needed a stent placed in her intestine just below her stomach. She states today her pain is a 6 out of 10 and feels very similar to her previous bowel obstructions. She states she did see her primary care provider on 02/09/2023 and was diagnosed with COVID. Associated Symptoms: Reports nausea Review of Systems General: Reports: 10 or more systems reviewed and unremarkable except in HPI and below GI: Reports: abdominal pain and nausea [facility] ED PFSH: Medical History Hx SBO Lumbar stenosis with neurogenic claudication Atrial fibrillation Low back pain at multiple sites Myopericarditis Protein-energy malnutrition Congestive heart failure Non-ST elevation [place] (NSTEMI) Discitis, unspecified, lumbar region MRSA bacteremia Small bowel obstruction Pain of both breasts DM II (diabetes mellitus, type II), controlled Chronic nausea GUILLAUME (generalized anxiety disorder) Colonic diverticular abscess Necrotizing fasciitis Coronary disease Osteoarthritis Gout Scleroderma Pericarditis Migraine Hypertension GERD (gastroesophageal reflux disease) Surgical History History of delivery History of neck surgery History of cholecystectomy H/O hernia repair H/O colectomy S/P dilatation of esophageal stricture S/P ANH-BSO Family History Mother Congestive heart failure Social History Smoking and tobacco/nicotine status: former use of tobacco/nicotine Alcohol intake: never Substance/Drug Use: never Lives independently: No Household members: spouse Marital status: Physical Exam Narrative: EXAM NARRATIVE: Constitutional: the patient appears well nourished and of normal development. Vital signs as documented. No acute distress at present. Alert and oriented-to person, place, time and situation. Head, eyes, ears, nose, mouth, throat: Normocephalic, atraumatic. Pupils-equal, round, reactive to light. No scleral icterus. Normal-appearing external ears. Normal appearing nasal turbinates, no drainage. No obvious oral lesions, posterior oropharynx without erythema or exudates. Neck: Supple, trachea is midline, no lymphadenopathy, no jugular venous distension, thyromegaly, or carotid bruits. Carotid upstrokes are brisk bilaterally. Lungs: clear to auscultation to all lung lutz. Symmetrical rise and fall of chest, no obvious signs of increased work of breathing at present. Cardiac: Regular rate and rhythm, positive S1, S2. No murmurs, rubs or gallops that I can appreciate Abdomen: Soft, non-tender to palpation, normal active bowel sounds to all quadrants. No palpable masses, no organomegaly and abdominal bruits. Extremities: 2+ pulses in the upper extremities that are equal bilaterally, 2+ pulses in the lower extremities that are equal bilaterally. Non-edematous. Moves all extremities well, sensation to all extremities are noted. Skin: Warm, dry, intact. Course Vital Signs: Vital signs: Vital Signs Temperature 97.5 F L 02/19/23 00:29 Pulse Rate 75 02/19/23 00:29 Respiratory Rate 16 02/19/23 00:29 Blood Pressure 182/97 02/19/23 00:29 Pulse Oximetry 95 02/19/23 00:29 MDM - Abdominal Pain Medical Decision Making Physical exam completed and documented, I will obtain laboratory evaluation to include a CBC, CMP, lipase, urinalysis, and a CT scan of the patient's abdomen pelvis to evaluate for possible differential diagnosis of bowel obstruction, incarcerated hernia, abdominal wall strain, abdominal wall hematoma, constipation. I will provide the patient IV access and IV fluid as well as a CT scan abdomen pelvis with contrast for evaluation for possible colitis, acute appendicitis, diverticulitis. Medical Records I reviewed the patient's medical records. Lab Data I reviewed the patient's lab results. 02/19/23 02:40 02/19/23 02:40 Labs/Radiology: Radiology Impressions Abdomen/Pelvis CT 02/19/23 00:30 IMPRESSION: No acute subdiaphragmatic pathology. Persistent prominent biliary system with gas in biliary system, the distension is greater than usually seen with surgery. Consider MRCP. COMMENTS: Consistent with the [employer]'s Incidental Findings Committee white paper (J Am Patricia Radiol 2018): Any incidental renal lesion less than 1 cm or classified as too small to characterize, or any incidental cystic renal lesion characterized as simple-appearing, is likely benign. No follow-up imaging is recommended for these lesions per consensus recommendations based on imaging criteria. Laboratory Results WBC 14.68 10^3/uL (3.29-11.43) H 02/19/23 02:40 RBC 5.19 10^6/uL (3.85-5.65) 02/19/23 02:40 Hgb 15.40 g/dL (11.27-16.99) 02/19/23 02:40 Hct 46.3 % (36-47) 02/19/23 02:40 MCV 89.2 fl (85-98) 02/19/23 02:40 MCH 29.7 pg (27-33) 02/19/23 02:40 MCHC 33.3 g/dL (30-55) 02/19/23 02:40 RDW 12.2 % (12.1-15.1) 02/19/23 02:40 Plt Count 260 10^3/cmm (157-399) 02/19/23 02:40 MPV 10.3 fL (7.4-10.4) 02/19/23 02:40 Neut % (Auto) 84.7 % 02/19/23 02:40 Lymph % (Auto) 5.3 % 02/19/23 02:40 Drew % (Auto) 8.0 % 02/19/23 02:40 Eos % (Auto) 1.0 % 02/19/23 02:40 Baso % (Auto) 0.2 % 02/19/23 02:40 Neut # (Auto) 12.43 10^3/uL (1.8-7.7) H 02/19/23 02:40 Lymph # (Auto) 0.8 10^3/uL (0.8-4.8) 02/19/23 02:40 Drew # (Auto) 1.2 10^3/uL (0.2-0.9) H 02/19/23 02:40 Eos # (Auto) 0.2 10^3/uL (0.0-0.8) 02/19/23 02:40 Baso # (Auto) 0.0 10^3/uL (0.0-0.1) 02/19/23 02:40 Nucleated RBC % (auto) 0 % 02/19/23 02:40 Nucleated RBCs # 0.0 /100WBC 02/19/23 02:40 Sodium 142 mmol/L (136-145) 02/19/23 02:40 Potassium 3.6 mmol/L (3.5-5.1) 02/19/23 02:40 Chloride 103 mmol/L (98-107) 02/19/23 02:40 Carbon Dioxide 25 mmol/L (22-29) 02/19/23 02:40 Anion Gap 17.6 (5-19) 02/19/23 02:40 BUN 17 mg/dL (8-23) 02/19/23 02:40 Creatinine 0.6 mg/dL (0.5-0.9) 02/19/23 02:40 GFR Calculation Not Reportable 02/19/23 02:40 Glucose 146 mg/dL (65-115) H 02/19/23 02:40 Calculated Osmolality 298 mOsm/kg (285-295) H 02/19/23 02:40 Calcium 9.3 mg/dL (8.5-10.5) 02/19/23 02:40 Total Bilirubin 1.1 mg/dL (0.15-1.2) 02/19/23 02:40 AST 57 U/L (0-32) H 02/19/23 02:40 ALT 35 U/L (0-33) H 02/19/23 02:40 Alkaline Phosphatase 85 U/L (35-105) 02/19/23 02:40 Total Protein 7.0 g/dL (6.6-8.7) 02/19/23 02:40 Albumin 4.3 g/dL (3.5-5.2) 02/19/23 02:40 Globulin 2.7 g/dL (1.3-4.6) 02/19/23 02:40 Lipase 168 U/L (13-60) H 02/19/23 02:40 All radiology interpretation(s) finalized by discharge Discharge Plan Discharge Patient Disposition: Home Clinical Impression: Abdominal pain Qualifiers: Abdominal location: generalized Qualified Code(s): R10.84 - Generalized abdominal pain Prescriptions: No Action molnupiravir 200 mg capsule 800 mg PO Q12H 5 Days Qty: 40 0RF Eliquis 5 mg tablet 5 mg PO BID Qty: 180 3RF ondansetron HCl 8 mg tablet 8 mg PO TID PRN (Reason: Nausea And Vomiting) Prevagen 1 cap PO QAM carvedilol 6.25 mg tablet 6.25 mg PO BEDTIME hydrocortisone [Anusol-HC] 2.5 % cream with perineal applicator 1 applic [place] BID PRN (Reason: Bleeding/pain) Qty: 30 0RF buspirone 5 mg tablet 5 mg PO TID PRN (Reason: Anxiety) magnesium hydroxide [Milk of Magnesia] 400 mg/5 mL suspension 1,200 mg PO QID PRN (Reason: constipation) Qty: 355 0RF sumatriptan succinate 100 mg Tablet 100 mg PO Q2H MDD 2 doses PRN (Reason: Migraine Headache) Rx Instructions: do not exceed 2 doses per 24 hrs amlodipine 2.5 mg tablet 2.5 mg PO QAM carvedilol 25 mg tablet 12.5 mg PO QAM Vitamin B-12 1,000 mcg tablet 500 mcg PO QAM Miralax 17 gram/dose powder 17 g PO QAM Discharge Orders: Discharge ED (Routine); Ordered 02/19/23 Ordered By: Yoshi Howard Referrals: Baldomero Britt MD [Primary Care Provider] - Discharge Diet: Advance as tolerated Discharge Activity: Resume usual activity Patient Instructions: Abdominal Pain (ED), Opioid Safety, Pain Management Activity Restrictions/Additional Instructions: Activity Restrictions/Additional Instructions: Thank you for choosing [facility] for your healthcare needs today. Please realize that you were seen in the Emergency Department and that we are providing you with an emergency medical screening exam and this may not be a complete and all inclusive of all the testing and or medical work-up that you may need to determine your ailment or severity of your illness. It is very important that you follow-up as instructed with your Primary care provider or Specialist for additional evaluation and to discuss your medical treatment plan. You may return to the Emergency Department should you have concerns or if your condition changes or worsens in any way. Coding Level of Care Code ED Video Game Tester for aTd Sanderson
[2023-02-19 00:29] VITALS: BP 182/97; PULSE 75; RESP 16; TEMP 36.4; O2SAT 95; BMI 25.2
--- NOTE | 2023-02-19 00:30 | CTR_ITS ---
PROCEDURE INFORMATION: Exam: CT Abdomen And Pelvis With Contrast Exam date and time: 02/19/2023 3:41 AM Age: 77 years old Clinical indication: Abdominal pain; Generalized; Patient HX: HX of bowel obstructions; Additional info: Abd pain TECHNIQUE: Imaging protocol: Computed tomography of the abdomen and pelvis with contrast. Radiation optimization: All CT scans at this facility use at least one of these dose optimization techniques: automated exposure control; mA and/or kV adjustment per patient size (includes targeted exams where dose is matched to clinical indication); or iterative reconstruction. Contrast material: OMNI 350; Contrast volume: 80 ml; Contrast route: INTRAVENOUS (IV); REPORTING DATA: Count of CT and Cardiac NM exams in prior 12 months: This patient has received 7 known CTs and 0 known cardiac nuclear medicine studies in the 12 months prior to the current study. COMPARISON: CT abdomen pelvis w con* [id number] 02/03/2023 11:06 PM RADIATION DOSE METRICS: Total DLP (mGy-cm): 412.73 FINDINGS: Liver: Normal. No mass. Gallbladder and bile ducts: Cholecystectomy. Gas within a dilated intra and extrahepatic biliary system presumably related to the prior surgery. Diameter of the common duct is up to 18 mm. This is large even post surgery and the possibility of obstruction exists. It should be noted that this is similar what was seen on 02/03/2023 and 12/13/2022 however. Pancreas: Normal. No ductal dilation. Spleen: Calcified splenic granulomata. Adrenal glands: Normal. No mass. Kidneys and ureters: Renal cysts. Stomach and bowel: Evidence of prior surgery to bowel in the low pelvis. No evidence of obstruction. There is mild dilatation of bowel near the pelvic surgical site but I doubt this represents obstruction. Appendix: No evidence of appendicitis. Intraperitoneal space: Vasculature: Unremarkable. No abdominal aortic aneurysm. Lymph nodes: Unremarkable. No enlarged lymph nodes. Urinary bladder: Unremarkable as visualized. Reproductive: Unremarkable as visualized. Bones/joints: Unremarkable. No acute fracture. Soft tissues: Unremarkable. CT/CT abdomen pelvis w con* [id number] IMPRESSION: No acute subdiaphragmatic pathology. Persistent prominent biliary system with gas in biliary system, the distension is greater than usually seen with surgery. Consider MRCP. COMMENTS: Consistent with the [employer]'s Incidental Findings Committee white paper (J Am Patricia Radiol 2018): Any incidental renal lesion less than 1 cm or classified as too small to characterize, or any incidental cystic renal lesion characterized as simple-appearing, is likely benign. No follow-up imaging is recommended for these lesions per consensus recommendations based on imaging criteria.
[2023-02-19 02:54] LABS: Basophils % 0.2 %; Eosinophils # 0.2 10^3/uL (0.0-0.8); Hematocrit 46.3 % (36-47); Lymphocytes # 0.8 10^3/uL (0.8-4.8); Lymphocytes % 5.3 %; Mean Corpuscular HGB Conc 33.3 g/dL (30-55); Mean Corpuscular Hemoglobin 29.7 pg (27-33); Mean Corpuscular Volume 89.2 fl (85-98); Mean Platelet Volume 10.3 fL (7.4-10.4); Monocytes # 1.2 10^3/uL (0.2-0.9); Neutrophils # 12.43 10^3/uL (1.8-7.7); Neutrophils % 84.7 %; Nucleated Red Blood Cells % 0 %; Platelet Count 260 10^3/cmm (157-399); Red Blood Count 5.19 10^6/uL (3.85-5.65); Red Cell Distribution Width 12.2 % (12.1-15.1); White Blood Count 14.68 10^3/uL (3.29-11.43)
[2023-02-19 03:18] LABS: Alanine Aminotransferase 35 U/L (0-33); Albumin Level 4.3 g/dL (3.5-5.2); Alkaline Phosphatase 85 U/L (35-105); Anion Gap 17.6 (5-19); Aspartate Amino Transferase 57 U/L (0-32); Blood Urea Nitrogen 17 mg/dL (8-23); Calcium 9.3 mg/dL (8.5-10.5); Carbon Dioxide 25 mmol/L (22-29); Chloride 103 mmol/L (98-107); Creatinine Clr Calc Pharmacy 52.8505; Globulin 2.7 g/dL (1.3-4.6); Glucose 146 mg/dL (65-115); Lipase 168 U/L (13-60); Osmolality Calculated 298 mOsm/kg (285-295); Potassium 3.6 mmol/L (3.5-5.1); Sodium 142 mmol/L (136-145); Total Bilirubin 1.1 mg/dL (0.15-1.2)
[2023-02-19] MEDS: iohexol 350 mg/mL 500 mL Btl (per mL) IV (03:56)
[2023-02-19 05:50] VITALS: BP 106/62; PULSE 74; RESP 16; O2SAT 93
[2023-02-19 06:42] VITALS: BP 106/62; PULSE 71; RESP 16; O2SAT 96
== END 2023-02-19 05:54 | disposition home or self-care (01) ==
PROVIDERS: Emergency Provider Internal Medicine; PCP Family Medicine
DX: R10.84 Generalized abdominal pain (principal); Z79.01 Long term (current) use of anticoagulants; Z87.891 Personal history of nicotine dependence; I11.0 Hypertensive heart disease with heart failure; I50.9 Heart failure, unspecified; I25.2 Old myocardial infarction; E11.9 Type 2 diabetes mellitus without complications
CPT/HCPCS: 74177; 80053; 83690; 85025; 99285; Q9967

== ENCOUNTER 2023-03-23 03:54 | Inpatient (IN) | payer MEDICARE, OTHER, SELFPAY ==
[2023-03-23] VITALS (13 sets, daily range): BP systolic 97–165; BP diastolic 49–82; PULSE 67–99; RESP 14–18; TEMP 36.6–37.2; O2SAT 92–100; BMI 23.8; BMI 25.0
--- NOTE | 2023-03-23 04:05 | CTR_ITS ---
PROCEDURE INFORMATION: Exam: CT Abdomen And Pelvis With Contrast Exam date and time: 03/23/2023 4:47 AM Age: 78 years old Clinical indication: Nausea and vomiting; Abdominal pain; Prior surgery; Surgery date: 6+ months; Surgery type: Gb. Hernia repair. Colectomy. Bowel resection. Hysterectomy. Patient HX: C/O abd pain with n/v. History of recurrent SBO and chronic pneumobilia. ; Additional info: Abd pain, HX of SBO TECHNIQUE: Imaging protocol: Computed tomography of the abdomen and pelvis with contrast. Radiation optimization: All CT scans at this facility use at least one of these dose optimization techniques: automated exposure control; mA and/or kV adjustment per patient size (includes targeted exams where dose is matched to clinical indication); or iterative reconstruction. Contrast material: OMNI 350; Contrast volume: 80 ml; Contrast route: INTRAVENOUS (IV); COMPARISON: CT abdomen pelvis w con* [id number] 02/19/2023 3:41 AM RADIATION DOSE METRICS: Total DLP (mGy-cm): 1002.63 FINDINGS: Liver: No obvious new abnormality of the liver. Gallbladder and bile ducts: Pneumobilia and chronic biliary duct dilation similar to 02/19/2023. Status post cholecystectomy. Pancreas: No acute abnormality or obvious pancreatic duct dilation. Spleen: Spleen normal size and containing multiple small granulomatous calcifications. Adrenal glands: No suspicious adrenal masses. Kidneys and ureters: Symmetric renal parenchymal enhancement. A few small renal cysts are present bilaterally. No hydronephrosis. Stomach and bowel: Distended fluid-filled duodenal bulb. Dilated small bowel in the pelvis measures up to 4.5 cm diameter. Distal small bowel is relatively collapsed. There is evidence of prior small bowel surgery. Appendix: The appendix is not identified, but there are no inflammatory changes in its expected region. Intraperitoneal space: No free intraperitoneal air, significant ascites, or localized fluid collections. Vasculature: Extensive aortic atherosclerotic calcification without aneurysmal dilation. Prominent aortic calcifications are noted at the origins of the celiac artery and SMA. Lymph nodes: No enlarged lymph nodes. Urinary bladder: No significant bladder wall thickening. Reproductive: Status post hysterectomy. Bones/joints: Severe chronic lower lumbar facet arthropathy multilevel chronic lumbar degenerative disc disease. No obvious acute osseous abnormality. Soft tissues: Unremarkable. CT/CT abdomen pelvis w con* [id number] IMPRESSION: 1. Slightly increased dilation of small bowel in the lower abdomen/pelvis favors at least partial small bowel obstruction, potentially related to adhesions and/or anastomotic stricture. 2. Chronic pneumobilia and biliary duct dilation similar to previous exam. Additional incidental and/or nonacute findings as reported above. COMMENTS: Consistent with the [employer]'s Incidental Findings Committee white paper (J Am Patricia Radiol 2018): Any incidental renal lesion less than 1 cm or classified as too small to characterize, or any incidental cystic renal lesion characterized as simple-appearing, is likely benign. No follow-up imaging is recommended for these lesions per consensus recommendations based on imaging criteria.
[2023-03-23] MEDS: haloperidol inj 5 mg/mL INJ 1 mL 2 MG IVP (04:41)
[2023-03-23] MEDS: ondansetron 2 mg/ML SDV 2 mL 4 MG IVP (04:41)
[2023-03-23] MEDS: sodium chloride 0.9% 1,000 ML 999 ML IV (04:41)
--- NOTE | 2023-03-23 04:42 | W.ED.ABDPA2 ---
HPI - Abdominal Pain General: Chief Complaint: Abdominal Pain Stated Complaint: believe bowl blockage Time Seen by Provider: 03/23/23 04:05 History of Present Illness: 78-year-old female well-known to the emergency department service. She has a history of intermittent small bowel obstruction. She presents with vomiting and abdominal pain this morning. Her notes this started around midnight. She has vomited at least 11 times. She had taken 2 capsules of morphine 30 mg for abdominal pain prior to this. On presentation in the room she is actively vomiting. No fever. No diarrhea. No blood. Associated Symptoms: Reports nausea and vomiting; Denies chills, diarrhea, fever(s) and hematochezia Review of Systems Const: Denies: fever(s), chills or body aches Eyes: Denies: change in vision Card: Denies: chest pain or palpitations Resp: Denies: dyspnea, productive cough, non-productive cough or wheezing GI: Reports: abdominal pain, nausea and vomiting; Denies: diarrhea or hematochezia : Denies: difficulty voiding Skin/Breast: Denies: rash Neuro: Denies: headache(s), weakness in extremities, dizziness or confusion PFS ED PFSH: Medical History Hx SBO Lumbar stenosis with neurogenic claudication Atrial fibrillation Low back pain at multiple sites Myopericarditis Protein-energy malnutrition Congestive heart failure Non-ST elevation [place] (NSTEMI) Discitis, unspecified, lumbar region MRSA bacteremia Small bowel obstruction Pain of both breasts DM II (diabetes mellitus, type II), controlled Chronic nausea GUILLAUME (generalized anxiety disorder) Colonic diverticular abscess Necrotizing fasciitis Coronary disease Osteoarthritis Gout Scleroderma Pericarditis Migraine Hypertension GERD (gastroesophageal reflux disease) Surgical History History of delivery History of neck surgery History of cholecystectomy H/O hernia repair H/O colectomy S/P dilatation of esophageal stricture S/P ANH-BSO Family History Mother Congestive heart failure Social History Smoking and tobacco/nicotine status: former use of tobacco/nicotine Alcohol intake: never Substance/Drug Use: never Lives independently: No Household members: spouse Marital status: Physical Exam Const: GENERAL APPEARANCE: cooperative, ill appearing and frail appearing HENMT: COMMON NORMALS: normocephalic, atraumatic and Normal external nose present HEAD & SCALP: normocephalic and atraumatic FACE & SINUS: normal facial exam and face symmetric NOSE: Normal external nose present Eye: COMMON NORMALS: Equal, round and reactive pupils present and EOMs intact bilaterally PUPIL: Yes Equal, round and reactive pupils present Neck/C-Spine: GENERAL: Yes trachea midline Chest: CHEST: Yes Symmetrical chest wall rise Resp: COMMON NORMALS: normal respiratory effort, No retractions, No use of accessory muscles and clear to auscultation bilaterally AUSCULTATION: clear to auscultation bilaterally Cardio: COMMON NORMALS: regular rate and regular rhythm RATE: regular rate RHYTHM: regular rhythm GI: COMMON NORMALS: Soft to palpation INSPECTION: Yes abdominal distension AUSCULTATION: Yes Hypoactive bowel sounds present PALPATION: Yes Soft to palpation and Yes Tenderness to palpation present (GI) (Diffusely) Extremity: COMMON NORMALS: no pedal edema Neuro: GRETCHEN COMA SCALE: document GCS findings [place] coma scale eye opening: Spontaneous [place] coma scale verbal response: Orientated [place] coma scale motor response: Obey commands [place] coma scale total score: 15 SENSORY EXAM: Yes extremities (intact) Psych: COMMON NORMALS: speech normal SPEECH: Yes normal speech Skin: COMMON NORMALS: no rashes or lesions noted GENERAL SKIN EXAM: no rashes or lesions noted Course Vital Signs: Vital signs: Vital Signs Temperature 97.9 F 03/23/23 20:00 Pulse Rate 78 03/23/23 20:00 Respiratory Rate 16 03/23/23 21:29 Blood Pressure 129/71 03/23/23 20:00 Pulse Oximetry 96 03/23/23 20:00 Oxygen Delivery Me thod Room Air 03/23/23 20:00 Oxygen Flow Rate 2 03/23/23 06:00 MDM - Abdominal Pain Medical Decision Making 78-year-old patient presenting with vomiting. Labs and CT are pending. She has received 2 mg of IV Haldol for nausea, Zofran for nausea, and IV fluid bolus. White blood cell count is 14, but CRP is only 3. Hemoglobin is 17.4. Bicarb is 21. She is given a fluid bolus here. Lipase is 3300. Liver enzymes, however, are normal. CT scan shows chronic pneumobilia and biliary duct dilatation similar to her previous exam. There is also slightly increased dilation of the small bowel in the lower abdomen pelvis with likely at least partial small bowel obstruction. NG tube was placed in the ER. Hospitalist consulted for admission. Lab Data 03/23/23 04:45 03/23/23 04:45 Labs/Radiology: Radiology Impressions Abdomen/Pelvis CT 03/23/23 04:05 IMPRESSION: 1. Slightly increased dilation of small bowel in the lower abdomen/pelvis favors at least partial small bowel obstruction, potentially related to adhesions and/or anastomotic stricture. 2. Chronic pneumobilia and biliary duct dilation similar to previous exam. Additional incidental and/or nonacute findings as reported above. COMMENTS: Consistent with the [employer]'s Incidental Findings Committee white paper (J Am Patricia Radiol 2018): Any incidental renal lesion less than 1 cm or classified as too small to characterize, or any incidental cystic renal lesion characterized as simple-appearing, is likely benign. No follow-up imaging is recommended for these lesions per consensus recommendations based on imaging criteria. Chest X-Ray 03/23/23 06:44 IMPRESSION: 1. Although tip of NG tube is within the stomach, the side port is in the distal esophagus. 2. No acute cardiopulmonary abnormality on single view chest radiograph. Laboratory Results WBC 13.94 10^3/uL (3.29-11.43) H 03/23/23 04:45 RBC 5.81 10^6/uL (3.85-5.65) H 03/23/23 04:45 Hgb 17.40 g/dL (11.27-16.99) H 03/23/23 04:45 Hct 51.4 % (36-47) H 03/23/23 04:45 MCV 88.5 fl (85-98) 03/23/23 04:45 MCH 29.9 pg (27-33) 03/23/23 04:45 MCHC 33.9 g/dL (30-55) 03/23/23 04:45 RDW 12.7 % (12.1-15.1) 03/23/23 04:45 Plt Count 234 10^3/cmm (157-399) 03/23/23 04:45 MPV 10.6 fL (7.4-10.4) H 03/23/23 04:45 Neut % (Auto) 87.4 % 03/23/23 04:45 Lymph % (Auto) 6.8 % 03/23/23 04:45 [place] % (Auto) 3.1 % 03/23/23 04:45 Eos % (Auto) 1.9 % 03/23/23 04:45 Baso % (Auto) 0.4 % 03/23/23 04:45 Neut # (Auto) 12.20 10^3/uL (1.8-7.7) H 03/23/23 04:45 Lymph # (Auto) 1.0 10^3/uL (0.8-4.8) 03/23/23 04:45 [place] # (Auto) 0.4 10^3/uL (0.2-0.9) 03/23/23 04:45 Eos # (Auto) 0.3 10^3/uL (0.0-0.8) 03/23/23 04:45 Baso # (Auto) 0.1 10^3/uL (0.0-0.1) 03/23/23 04:45 Nucleated RBC % (auto) 0 % 03/23/23 04:45 Nucleated RBCs # 0.0 /100WBC 03/23/23 04:45 PT 13.80 SECONDS (12.1-14.9) 03/23/23 04:43 INR 1.03 (0.8-1.2) 03/23/23 04:43 Sodium 135 mmol/L (136-145) L 03/23/23 04:45 Potassium 3.6 mmol/L (3.5-5.1) 03/23/23 04:45 Chloride 97 mmol/L (98-107) L 03/23/23 04:45 Carbon Dioxide 21 mmol/L (22-29) L 03/23/23 04:45 Anion Gap 20.6 (5-19) H 03/23/23 04:45 BUN 20 mg/dL (8-23) 03/23/23 04:45 Creatinine 0.9 mg/dL (0.5-0.9) 03/23/23 04:45 GFR Calculation Not Reportable 03/23/23 04:45 Glucose 214 mg/dL (65-115) H 03/23/23 04:45 Calculated Osmolality 289 mOsm/kg (285-295) 03/23/23 04:45 Calcium 10.3 mg/dL (8.5-10.5) 03/23/23 04:45 Total Bilirubin 1.2 mg/dL (0.15-1.2) 03/23/23 04:45 AST 30 U/L (0-32) 03/23/23 04:45 ALT 15 U/L (0-33) 03/23/23 04:45 Alkaline Phosphatase 84 U/L (35-105) 03/23/23 04:45 C-Reactive Protein 3.0 mg/L (0.0-4.9) 03/23/23 04:45 Total Protein 7.5 g/dL (6.6-8.7) 03/23/23 04:45 Albumin 4.4 g/dL (3.5-5.2) 03/23/23 04:45 Globulin 3.1 g/dL (1.3-4.6) 03/23/23 04:45 Triglycerides 164 mg/dL (0-150) H 03/23/23 04:43 Cholesterol 246 mg/dL (0-200) H 03/23/23 04:43 LDL Cholesterol, Calc 156 mg/dL (50-129) H 03/23/23 04:43 HDL Cholesterol 57 mg/dL (60-100) L 03/23/23 04:43 LDL/HDL Ratio 2.74 RATIO (0.00-3.22) 03/23/23 04:43 Cholesterol/HDL Ratio 4.32 mg/dL (0.0-4.40) 03/23/23 04:43 Lipase > 3363 U/L (13-60) H 03/23/23 04:45 All radiology interpretation(s) finalized by discharge Discharge Plan Discharge Patient Disposition: Admitted As Inpatient Admit Provider: Anna Emerson Clinical Impression: Small bowel obstruction, Acute pancreatitis Condition: Stable Coding Level of Care Code ED Commissioned Defence [employer] Officer for Tad Sanderson
[2023-03-23 04:51] LABS: Basophils # 0.1 10^3/uL (0.0-0.1); Basophils % 0.4 %; Eosinophils # 0.3 10^3/uL (0.0-0.8); Eosinophils % 1.9 %; Hematocrit 51.4 % (36-47); Lymphocytes % 6.8 %; Mean Corpuscular HGB Conc 33.9 g/dL (30-55); Mean Corpuscular Hemoglobin 29.9 pg (27-33); Mean Corpuscular Volume 88.5 fl (85-98); Mean Platelet Volume 10.6 fL (7.4-10.4); Monocytes # 0.4 10^3/uL (0.2-0.9); Monocytes % 3.1 %; Neutrophils % 87.4 %; Nucleated Red Blood Cells % 0 %; Platelet Count 234 10^3/cmm (157-399); Red Blood Count 5.81 10^6/uL (3.85-5.65); Red Cell Distribution Width 12.7 % (12.1-15.1); White Blood Count 13.94 10^3/uL (3.29-11.43)
[2023-03-23] MEDS: iohexol 350 mg/mL 500 mL Btl (per mL) IV (04:51)
--- NOTE | 2023-03-23 05:04 | PC.NURSE ---
Patients oxygen sats running at 87-88% on RA after haldol ivp. Pt placed on 2l nc and provider notified. Sats improved to mid 90s.
[2023-03-23 05:07] LABS: Alanine Aminotransferase 15 U/L (0-33); Albumin Level 4.4 g/dL (3.5-5.2); Alkaline Phosphatase 84 U/L (35-105); Anion Gap 20.6 (5-19); Aspartate Amino Transferase 30 U/L (0-32); Blood Urea Nitrogen 20 mg/dL (8-23); Calcium 10.3 mg/dL (8.5-10.5); Carbon Dioxide 21 mmol/L (22-29); Chloride 97 mmol/L (98-107); Globulin 3.1 g/dL (1.3-4.6); Glucose 214 mg/dL (65-115); Osmolality Calculated 289 mOsm/kg (285-295); Potassium 3.6 mmol/L (3.5-5.1); Sodium 135 mmol/L (136-145); Total Bilirubin 1.2 mg/dL (0.15-1.2); Total Protein 7.5 g/dL (6.6-8.7)
[2023-03-23 06:11] LABS: INR 1.03 (0.8-1.2)
[2023-03-23 06:19] LABS: Chol HDL Ratio 4.32 mg/dL (0.0-4.40); Cholesterol 246 mg/dL (0-200); HDL Cholesterol 57 mg/dL (60-100); LDL Cholesterol Calculated 156 mg/dL (50-129); LDL HDL Ratio 2.74 RATIO (0.00-3.22); Triglycerides 164 mg/dL (0-150)
--- NOTE | 2023-03-23 06:44 | XRR_ITS ---
PROCEDURE INFORMATION: Exam: XR Chest Exam date and time: 03/23/2023 7:01 AM Age: 78 years old Clinical indication: Device placement; Ng tube; Additional info: Ng tube placement TECHNIQUE: Imaging protocol: Radiologic exam of the chest. Views: 1 view. COMPARISON: CR XR chest 1V portable [id number] 02/04/2023 12:33 AM FINDINGS: Tubes, catheters and devices: NG tube terminates in the stomach the side port is in the distal esophagus. Lungs: No acute infiltrate identified. Pleural spaces: No significant pleural fluid. No pneumothorax detected. Heart/Mediastinum: Heart size within normal range. No pulmonary vascular congestion. Bones/joints: No obvious acute abnormality. XR/XR chest 1V portable [id number] IMPRESSION: 1. Although tip of NG tube is within the stomach, the side port is in the distal esophagus. 2. No acute cardiopulmonary abnormality on single view chest radiograph.
[2023-03-23] MEDS: cetacaine Spray 5 gm Can 1 SPRAY TOPICAL (06:55)
--- NOTE | 2023-03-23 09:52 | P.HP_ITS ---
Providers/Chief Complaint 2 Admitting Physician: Anna Emerson MD Primary Care Provider: Baldomero Britt MD Chief Complaint: believe bowl blockage History of Present Illness Anju Duffy is a 78 year old female with past medical history of recurrent small bowel obstruction due to multiple abdominal surgeries in the past, last admission in November 2022 for bowel obstruction, history of atrial fibrillation on anticoagulation with Eliquis, type 2 diabetes mellitus, CAD who presented to [facility] ER with abdominal pain nausea and vomiting which started 24 hours ago. Patient states he has been uptitrating her diet gradually since last discharge and has been doing well with last uptitration of the diet a week ago. Last bowel movement within last 24 hours. Now not passing flatus. Review of Systems 2 General: Reports: 10 or more systems reviewed and unremarkable except in HPI and below Const: Denies: fever(s), chills, body aches, change in appetite, change in weight, malaise, night sweats, diaphoresis, change in sleep pattern, daytime sleepiness or snoring Eyes: Denies: change in vision, blurry vision, photophobia, eye discomfort or eye discharge ENMT: Denies: throat pain, enlarged tonsils, hoarseness, mouth pain, oral sores, dry mouth, tinnitus, nasal congestion or post nasal drip Card: Denies: chest pain, palpitations, irregular heart rhythm, edema, swelling of feet/ankles, lightheadedness, syncope, pre-syncope, dyspnea on exertion, orthopnea, leg pain with exertion or acrocyanosis Resp: Denies: dyspnea, productive cough, non-productive cough, wheezing, stridor, pain on inspiration, change in phlegm color, hemoptysis or chest congestion GI: Denies: abdominal pain, nausea, vomiting, hematemesis, coffee ground emesis, dysphagia, heartburn, diarrhea, constipation, bloating, GI cramping, change in bowel habits, pain on defecation, hematochezia or melena : Denies: flank pain, dysuria, urinary frequency, urinary urgency, urinary hesitancy, nocturia or hematuria Musc: Denies: neck pain, back pain, extremity pain, joint pain, joint swelling, joint redness, joint stiffness or limited range of motion Neuro: Denies: headache(s), numbness in extremities, weakness in extremities, sensory changes, lack of coordination, difficulty walking, frequent falls, dizziness, vertigo, confusion, Slurred speech present, difficulty communicating thoughts or seizure-like activity Psych: Denies: anxiety, depression, mood swings, panic attacks, hopelessness or irritability Endo: Denies: polyuria, polydipsia, tired all the time, cold intolerance, excessive sweating, flushing or heat intolerance Juan Francisco/Lymph: Denies: easy bruising or easy bleeding All/Imm: Denies: tongue swelling, facial swelling or acute wheezing Medications/Allergies Home Medications Medication Instructions Recorded Confirmed Last Taken Type ondansetron HCl 8 mg tablet 8 mg PO TID PRN Nausea And Vomiting 03/21/21 03/23/23 11/09/21 History Prevagen 1 cap PO QAM 06/07/21 03/23/23 1 Day Ago History ~11/10/22 buspirone 5 mg tablet 5 mg PO TID PRN Anxiety 11/10/21 03/23/23 11/09/21 History magnesium hydroxide 400 mg/5 mL 1,200 mg (15 mL) PO QID PRN 11/11/21 03/23/23 11/11/21 Rx oral suspension (Milk of Magnesia) constipation #355 mL apixaban 5 mg tablet (Eliquis) 5 mg PO BID #180 tabs 05/03/22 03/23/23 12/25/22 Rx carvedilol 6.25 mg tablet 6.25 mg PO BEDTIME 07/16/22 03/23/23 12/24/22 History carvedilol 25 mg tablet 12.5 mg PO QAM 02/04/23 03/23/23 Unknown History cyanocobalamin (vitamin B-12) 500 mcg PO QAM 02/04/23 03/23/23 Unknown History 1,000 mcg tablet (Vitamin B-12) polyethylene glycol 3350 17 17 g PO QAM 02/04/23 03/23/23 Unknown History gram/dose oral powder (Miralax) sumatriptan succinate 100 mg tablet 100 mg PO Q2H PRN Migraine Headache 02/04/23 03/23/23 Unknown History amlodipine 2.5 mg tablet 2.5 mg PO DAILY 03/23/23 03/23/23 Unknown History Allergies Allergy/AdvReac Type Severity Reaction Status Date / Time Latex, Natural Rubber Allergy ALGY-Rash Verified 03/23/23 07:29 olanzapine [From Zyprexa] Allergy hallucinati Verified 03/23/23 07:29 ons/agitate d lorazepam [From Ativan] AdvReac hallucination, Verified 03/23/23 07:29 agitated PFSH Acute 2 PFSH: Medical History Hx SBO Lumbar stenosis with neurogenic claudication Atrial fibrillation Low back pain at multiple sites Myopericarditis Protein-energy malnutrition Congestive heart failure Non-ST elevation [place] (NSTEMI) Discitis, unspecified, lumbar region MRSA bacteremia Small bowel obstruction Pain of both breasts DM II (diabetes mellitus, type II), controlled Chronic nausea GUILLAUME (generalized anxiety disorder) Colonic diverticular abscess Necrotizing fasciitis Coronary disease Osteoarthritis Gout Scleroderma Pericarditis Migraine Hypertension GERD (gastroesophageal reflux disease) Surgical History History of delivery History of neck surgery History of cholecystectomy H/O hernia repair H/O colectomy S/P dilatation of esophageal stricture S/P ANH-BSO Family History Mother Congestive heart failure Social History Smoking and tobacco/nicotine status: former use of tobacco/nicotine Alcohol intake: never Substance/Drug Use: never Lives independently: No Household members: spouse Marital status: Vitals/I&O/Wt Last Vital Signs Temp 98.4 F 03/23/23 04:00 Pulse 72 03/23/23 07:00 Resp 18 03/23/23 06:00 BP 130/62 03/23/23 07:00 Pulse Ox 92 03/23/23 07:00 O2 Del Method Nasal Cannula 03/23/23 06:00 O2 Flow Rate 2 03/23/23 06:00 03/22/23 03/23/23 03/23/23 22:59 06:59 14:59 Intake Total 1000 / 1000 Balance 1000 / 1000 Weight last 48 hrs Weight 58.967 kg Physical Exam 2 Narrative: General no acute distress, AO x3, pleasant, NG tube in place HEENT: PERRLA, pupils bilaterally equal and reactive Chest: Normal vesicular breath sounds all over both lung lutz with occasional rhonchi CVS: S1-S2 irregularly irregular, no murmurs, no tachycardia, no gallops, no rubs Abdomen: Soft, nontender, no organomegaly, bowel sounds present, morbidly obese Neuro: No focal deficits, no facial deformity, AO x3, power 5/5 in all limbs Data 03/23/23 04:45 03/23/23 04:45 A&P Assessment and plan (1) Small bowel obstruction: Recurrent. Most likely in setting of multiple abdominal surgeries. Conservative treatment. Keep NPO. NG tube on intermittent low wall suction. IV hydration with NS at 50 cc/h Zofran as needed, IV Protonix Out of bed to chair. Serial abdominal imaging. (2) Acute pancreatitis: Appreciate lipase. CT abdomen pelvis does not show pancreatitis. Treatment would be same as above. Leukocytosis could be in setting of acute inflammation reaction for now we will start on IV Zosyn. Will de-escalate or stop antibiotics aggressively if patient remains hemodynamically stable in next. (3) Hypertension: Hold oral antihypertensives. Goal blood pressure less than 140/90 mmHg. Start on IV metoprolol 5 mg every 4 hours as needed for heart rate of more than 110 bpm. (4) Atrial fibrillation: IV metoprolol as above. Switch Eliquis to Lovenox 1 mg/kg body weight every 12 hourly (5) Congestive heart failure: Euvolemic. Monitor regularly. Plan CODE STATUS: Discussed in detail with the patient. She does not want any heroic measures including chest compressions or mechanical support. Wants DNR/DNI. States most likely her does not agree with the decision but she would want to be DNR/DNI N.p.o. Protonix for PUD prophylaxis Full dose Lovenox will suffice as DVT prophylaxis Attestations 2 Medical Necessity Statement*: Admission for more than 2 midnights for management of recurrent small bowel obstruction Diagnoses Small bowel obstruction K56.609 Acute pancreatitis K85.90 Essential hypertension I10 Paroxysmal atrial fibrillation I48.91 Congestive heart failure I50.9
[2023-03-23] MEDS: pantoprazole 40 mg SDV IVP (11:20)
[2023-03-23] MEDS: enoxaparin 100 mg/mL Syringe 60 MG SUBCUT ×2 (11:20→21:00)
[2023-03-23] MEDS: dextrose 5%-sod chloride 0.9% 1,000 ML 50 ML IV (11:20)
[2023-03-23] MEDS: piperacillin-tazobactam 3.375 GM in sodium chloride 0.9% (plus) 50 ML IV ×2 (15:57→23:50)
[2023-03-23] MEDS: BuSPIRONE 10 mg Tablet 5 MG PO (20:54)
[2023-03-23] MEDS: morphine 4 mg/mL SDV 1 mL 1 MG IVP (21:29)
[2023-03-24] VITALS (10 sets, daily range): BP systolic 108–163; BP diastolic 58–77; PULSE 67–93; RESP 16–18; TEMP 36.6–37.2; O2SAT 92–96; BMI 25.3
[2023-03-24 02:24] LABS: Urine Appearance Hazy (CLEAR); Urine Color Yellow (Yellow); pH Urine 5 (5-7)
[2023-03-24 02:25] LABS: Add Urine Microscopic? YES; Bilirubin Urine 1+ (Negative); Blood Urine 3+ (Negative); Glucose Urine UA Norm (Normal); Ketones Urine 1+ (Negative); Leukocyte Esterase Urine Negative (Negative); Nitrate Urine Positive (Negative); Protein Urine 1+ (Negative); Urobilinogen Urine 1 mg/dL (Negative)
[2023-03-24 02:26] LABS: Add Urine Culture? Yes; Amorphous Sediment Urine 1+ /hpf; Bacteria Urine 2+ /hpf; Hyaline Casts Urine 0-4 /lpf; Mucus Urine 1+ /hpf; RBC Urine 15-25 /hpf (0-2); WBC Urine 15-25 /hpf (0-5)
[2023-03-24 04:46] LABS: Basophils % 0.2 %; Eosinophils # 0.1 10^3/uL (0.0-0.8); Eosinophils % 0.6 %; Hematocrit 44.1 % (36-47); Lymphocytes # 1.8 10^3/uL (0.8-4.8); Lymphocytes % 14.5 %; Mean Corpuscular HGB Conc 32.4 g/dL (30-55); Mean Corpuscular Hemoglobin 30.1 pg (27-33); Mean Corpuscular Volume 92.8 fl (85-98); Mean Platelet Volume 10.7 fL (7.4-10.4); Monocytes % 8.2 %; Neutrophils # 9.43 10^3/uL (1.8-7.7); Neutrophils % 76.1 %; Nucleated Red Blood Cells % 0 %; Platelet Count 197 10^3/cmm (157-399); Red Blood Count 4.75 10^6/uL (3.85-5.65); Red Cell Distribution Width 13.2 % (12.1-15.1); White Blood Count 12.41 10^3/uL (3.29-11.43)
[2023-03-24 05:07] LABS: Magnesium 2.2 mg/dL (1.7-2.3)
[2023-03-24 05:09] LABS: Alanine Aminotransferase 19 U/L (0-33); Albumin Level 3.5 g/dL (3.5-5.2); Alkaline Phosphatase 63 U/L (35-105); Blood Urea Nitrogen 20 mg/dL (8-23); Calcium 8.6 mg/dL (8.5-10.5); Carbon Dioxide 24 mmol/L (22-29); Chloride 106 mmol/L (98-107); Globulin 2.4 g/dL (1.3-4.6); Glucose 134 mg/dL (65-115); Osmolality Calculated 293 mOsm/kg (285-295); Sodium 139 mmol/L (136-145); Total Bilirubin 1.6 mg/dL (0.15-1.2); Total Protein 5.9 g/dL (6.6-8.7)
[2023-03-24 05:14] LABS: Aspartate Amino Transferase 28 U/L (0-32)
[2023-03-24 05:23] LABS: Folate Level > 20.0 ng/mL (4.8-37.3)
[2023-03-24] MEDS: dextrose 5%-sod chloride 0.9% 1,000 ML 50 ML IV (06:20)
[2023-03-24] MEDS: piperacillin-tazobactam 3.375 GM in sodium chloride 0.9% (plus) 50 ML IV ×3 (06:20→22:38)
[2023-03-24] MEDS: pantoprazole 40 mg SDV IVP (10:41)
[2023-03-24] MEDS: enoxaparin 100 mg/mL Syringe 60 MG SUBCUT ×2 (10:43→22:38)
[2023-03-24] MEDS: phenol oral Spray 177 mL 3 SPRAY MUCOUS MEM ×2 (13:27→20:00)
[2023-03-24] MEDS: BuSPIRONE 10 mg Tablet 5 MG PO (19:50)
--- NOTE | 2023-03-24 20:02 | P.PN_ITS ---
Subjective 2 Subjective: Reports no events overnight. Has not had a bowel movement or passed gas. Denies pain at this time. Medications: Reviewed: Yes Vitals/I&O/Wt Last Vital Signs Temp 98 F 03/24/23 16:36 Pulse 72 03/24/23 16:36 Resp 18 03/24/23 16:36 BP 134/65 03/24/23 16:36 Pulse Ox 95 03/24/23 16:36 O2 Del Method Room Air 03/24/23 16:36 O2 Flow Rate 2 03/23/23 06:00 03/24/23 03/24/23 03/24/23 06:59 14:59 22:59 Intake Total 1000 / 1050 50 / 50 770 / 820 Output Total 200 / 200 Balance 800 / 850 50 / 50 770 / 820 Weight last 48 hrs Weight 138 lb 8 oz Weight 136 lb 11.2 oz Weight 130 lb Physical Exam 2 Narrative: General: Cooperative patient in no apparent distress. Well developed. NG tube in place. HEENT: Normocephalic, Atraumatic. External ears normal. Nasal passages patent without drainage. MMM. Heart: RRR. Resp: LCTA. No respiratory distress, no use of accessory muscles. Abd: Abdomen is mildly firm, tender to palpation throughout all quadrants. Bowel sounds present but infrequent. Extremities: No edema. Skin: No rash or lesions on exposed areas. Data 03/24/23 04:23 03/24/23 04:23 A&P Assessment and plan (1) Small bowel obstruction: (2) Acute pancreatitis: (3) Hypertension: (4) Atrial fibrillation: (5) Congestive heart failure: Plan 78-year-old female admitted for small bowel obstruction, elevated lipase with concern for pancreatitis. Continue close inpatient monitoring. Patient has multiple admissions in the past for small bowel obstruction. She has had several abdominal surgeries, likely contributing to her continued problems. Conservative treatment. Keep NPO for now. NG tube on intermittent low wall suction. IV hydration with NS at 50 cc/h Zofran as needed, IV Protonix Out of bed to chair. Serial abdominal imaging. Recommended that she contact her surgeon at [facility] and schedule a follow-up appointment with him to discuss her ongoing problems. Blood pressure is better controlled and stable. Continue amlodipine. Code Status: DNR IVF: D5NS at 50 DVT PPx: Lovenox GI PPx: Protonix ABx: Zosyn Diet: N.p.o. Discharge plan: Home Attestations 2 Medical Necessity Statement*: Admission for more than 2 midnights for management of recurrent small bowel obstruction Coding Level of Care Code Acute Code for Chg Fwd Moderate MDM includes number and complexity of problems actively addressed during encounter, amount and/or complexity of data reviewed/ordered and described risk of complication, morbidity or mortality of management as documented Diagnoses Small bowel obstruction K56.609 Acute pancreatitis K85.90 Essential hypertension I10 Paroxysmal atrial fibrillation I48.91 Congestive heart failure I50.9
[2023-03-25] VITALS (9 sets, daily range): BP systolic 127–192; BP diastolic 67–82; PULSE 61–86; RESP 16–18; TEMP 36.6–36.7; O2SAT 94–98; BMI 26.2
[2023-03-25] MEDS: dextrose 5%-sod chloride 0.9% 1,000 ML 50 ML IV (01:58)
[2023-03-25 06:09] LABS: Magnesium 1.9 mg/dL (1.7-2.3)
[2023-03-25] MEDS: piperacillin-tazobactam 3.375 GM in sodium chloride 0.9% (plus) 50 ML IV ×3 (06:22→23:01)
[2023-03-25] MEDS: pantoprazole 40 mg SDV IVP (10:35)
[2023-03-25] MEDS: enoxaparin 100 mg/mL Syringe 60 MG SUBCUT ×2 (10:45→23:00)
--- NOTE | 2023-03-25 12:21 | P.PN_ITS ---
Subjective 2 Subjective: seen this am mildy tender abdomen to palpation NG tube came out overnight as per staff nurse icu resource team not passing flatus yet, no BM abd tender Vitals/I&O/Wt Last Vital Signs Temp 98.0 F 03/25/23 11:46 Pulse 70 03/25/23 11:46 Resp 17 03/25/23 11:46 BP 166/70 03/25/23 11:46 Pulse Ox 96 03/25/23 11:46 O2 Del Method Room Air 03/25/23 11:46 O2 Flow Rate 2 03/23/23 06:00 03/24/23 03/25/23 03/25/23 22:59 06:59 14:59 Intake Total 770 / 820 1031.667 / 1851.667 Balance 770 / 820 1031.667 / 1851.667 Weight last 48 hrs Weight 64.864 kg Weight 62.823 kg Physical Exam 2 Narrative: General: Cooperative patient in no apparent distress. HEENT: Normocephalic, Atraumatic. Heart: RRR. Resp: LCTA. No respiratory distress, Abd: Abdomen is mildly firm, tender to palpation throughout all quadrants. Bowel sounds extremely hypoactive Extremities: No edema. Data 03/24/23 04:23 03/24/23 04:23 Micro: Microbiology 03/24/23 01:22 Urine Culture - Preliminary Urine,Clean Catch A&P Assessment and plan (1) Small bowel obstruction: (2) Acute pancreatitis: (3) Hypertension: (4) Atrial fibrillation: (5) Congestive heart failure: Plan 78-year-old female admitted for small bowel obstruction, elevated lipase with concern for pancreatitis. Continue close inpatient monitoring. Patient has multiple admissions in the past for small bowel obstruction. She has had several abdominal surgeries, likely contributing to her continued problems. Conservative treatment. Keep NPO for now. NG tube came out overnight. We will replace it at this time. ? Discussed with Dr. Carbone over the phone. General surgeon. He recommends to placed on normal saline 150 cc/h. Will consider repeating imaging after she has seen the surgeon. ? states that they have a surgeon Dr. Middleton at [facility] and would like him to perform the surgery if it was needed and would like to be transferred if need be. I told family that we should first get the opinion of general surgeon and see if we can possibly resolve this conservatively. If however she ends up needing surgery I would be more than happy to assist with transferring her to [facility]. Zofran as needed, IV Protonix Out of bed to chair. Check KUB. Blood pressure is better controlled and stable. Continue amlodipine. Code Status: DNR IVF: D5NS at 50 DVT PPx: Lovenox GI PPx: Protonix ABx: Zosyn Diet: N.p.o. Discharge plan: Home Attestations 2 Medical Necessity Statement*: Admission for more than 2 midnights for management of recurrent small bowel obstruction Diagnoses Small bowel obstruction K56.609 Acute pancreatitis K85.90 Essential hypertension I10 Paroxysmal atrial fibrillation I48.91 Congestive heart failure I50.9
--- NOTE | 2023-03-25 12:25 | XR_ITS ---
WS: [id number] Exam: XR KUB portable [id number] Date/Time of Exam: 03/25/2023 12:28 PM Reason For Exam: bowel obstruction Comparison 12/15/2022. No bowel obstruction or free air. No sign of organ enlargement. Signs of previous abdominal surgery. Moderate degenerative change and levoscoliosis of the lumbar spine. IMPRESSION: 1. No acute abdominal process.
[2023-03-25] MEDS: BuSPIRONE 10 mg Tablet 5 MG PO (13:13)
--- NOTE | 2023-03-25 14:13 | PC.SOCIAL ---
IMM Update pg 2 of IMM updated and reviewed w/ patient. Copy provided and copy dated, initialed and placed in chart.
--- NOTE | 2023-03-25 14:44 | XR_ITS ---
WS: [id number] Exam: XR abdomen 1V* [id number] Date/Time of Exam: 03/25/2023 2:48 PM Reason For Exam: NG Placement Comparison 03/25/2023. An NG tube has been placed and appears to end in the region of the stomach. No bowel obstruction or p neumoperitoneum. No sign of organ enlargement. Signs of previous abdominal surgery. Aortoiliac athero sclerosis. Degenerative change and mild thoracolumbar scoliosis. IMPRESSION: 1. NG tube appearing to end in the body of the stomach. 2. No acute abdominal process.
[2023-03-25] MEDS: sodium chloride 0.9% 1,000 ML 150 ML IV ×2 (15:10→22:08)
--- NOTE | 2023-03-25 15:18 | P.CONIM_ITS ---
Providers/Reason For Consult 2 Consulting Physician/Specialty*: Dr. Jose Juan Carbone, DO/General surgery Reason for Consult*: Small bowel obstruction Attending Physician: Ela Mckeon MD Primary Care Provider: Baldomero Britt MD History of Present Illness History of Present Illness Anju Duffy is a 78 year old female who presented to the hospital with abdominal pain nausea and vomiting. She reports that she was having profuse vomiting that eventually turned into coffee-ground emesis and then bright red hematemesis. Her nausea and vomiting has resolved but she reports that she has not passed flatus or had a bowel movement for few days. (Fortunately, she had a bowel movement right after I placed an NG tube after seeing her today). She reports that she has constant left lower quadrant abdominal pain that does not radiate. Palpation makes pain worse. Nothing makes pain better. She has had multiple small bowel obstructions, including 2 that were treated conservatively here in the last 12 months. Review of Systems 2 General: Reports: 10 or more systems reviewed and unremarkable except in HPI and below Medications/Allergies Home Medications Medication Instructions Recorded Confirmed Last Taken Type ondansetron HCl 8 mg tablet 8 mg PO TID PRN Nausea And Vomiting 03/21/21 03/23/23 11/09/21 History Prevagen 1 cap PO QAM 06/07/21 03/23/23 1 Day Ago History ~11/10/22 buspirone 5 mg tablet 5 mg PO TID PRN Anxiety 11/10/21 03/23/23 11/09/21 History magnesium hydroxide 400 mg/5 mL 1,200 mg (15 mL) PO QID PRN 11/11/21 03/23/23 11/11/21 Rx oral suspension (Milk of Magnesia) constipation #355 mL apixaban 5 mg tablet (Eliquis) 5 mg PO BID #180 tabs 05/03/22 03/23/23 12/25/22 Rx carvedilol 6.25 mg tablet 6.25 mg PO BEDTIME 07/16/22 03/23/23 12/24/22 History carvedilol 25 mg tablet 12.5 mg PO QAM 02/04/23 03/23/23 Unknown History cyanocobalamin (vitamin B-12) 500 mcg PO QAM 02/04/23 03/23/23 Unknown History 1,000 mcg tablet (Vitamin B-12) polyethylene glycol 3350 17 17 g PO QAM 02/04/23 03/23/23 Unknown History gram/dose oral powder (Miralax) sumatriptan succinate 100 mg tablet 100 mg PO Q2H PRN Migraine Headache 02/04/23 03/23/23 Unknown History amlodipine 2.5 mg tablet 2.5 mg PO DAILY 03/23/23 03/23/23 Unknown History Allergies Allergy/AdvReac Type Severity Reaction Status Date / Time Latex, Natural Rubber Allergy ALGY-Rash Verified 03/23/23 07:29 olanzapine [From Zyprexa] Allergy hallucinati Verified 03/23/23 07:29 ons/agitate d lorazepam [From Ativan] AdvReac hallucination, Verified 03/23/23 07:29 agitated Current Medications Generic Name Dose Route Start Last Admin Trade Name Freq PRN Reason Stop Dose Admin Buspirone HCl 5 mg 03/23/23 19:58 03/25/23 13:13 Buspirone 10 Mg Tablet PO 5 mg TID PRN Administration ANXIETY Enoxaparin Sodium 60 mg 03/23/23 10:00 03/25/23 10:45 Enoxaparin 100 Mg/Ml Syringe 1 mg/kg (60 mg) 60 mg SUBCUT Administration Q12H ROCIO Piperacillin Sod/Tazobactam 50 mls @ 12.5 mls/hr 03/23/23 14:00 03/25/23 06:22 Sod 3.375 gm/ Sodium Chloride IV 12.5 mls/hr Q8H ROCIO Administration Protocol Sodium Chloride 1,000 mls @ 150 mls/hr 03/25/23 12:30 03/25/23 15:10 Sodium Chloride 0.9% IV 150 mls/hr .Q6H40M ROCIO Administration Morphine Sulfate 1 mg 03/23/23 09:48 03/23/23 21:29 Morphine 4 Mg/Ml Sdv 1 Ml IVP 1 mg Q4H PRN Administration SEVERE PAIN Pantoprazole Sodium 40 mg 03/23/23 10:00 03/25/23 10:35 Pantoprazole 40 Mg Sdv IVP 40 mg Q24H ROCIO Administration Phenol 3 spray 03/24/23 13:22 03/24/23 20:00 Phenol Oral Rison 177 Ml MUCOUS MEM 3 spray Q2H PRN Administration SORE THROAT PFSH Acute 2 PFSH: Medical History Hx SBO Lumbar stenosis with neurogenic claudication Atrial fibrillation Low back pain at multiple sites Myopericarditis Protein-energy malnutrition Congestive heart failure Non-ST elevation [place] (NSTEMI) Discitis, unspecified, lumbar region MRSA bacteremia Small bowel obstruction Pain of both breasts DM II (diabetes mellitus, type II), controlled Chronic nausea GUILLAUME (generalized anxiety disorder) Colonic diverticular abscess Necrotizing fasciitis Coronary disease Osteoarthritis Gout Scleroderma Pericarditis Migraine Hypertension GERD (gastroesophageal reflux disease) Surgical History History of delivery History of neck surgery History of cholecystectomy H/O hernia repair H/O colectomy S/P dilatation of esophageal stricture S/P ANH-BSO Family History Mother Congestive heart failure Social History Smoking and tobacco/nicotine status: former use of tobacco/nicotine Alcohol intake: never Substance/Drug Use: never Lives independently: No Household members: spouse Marital status: Vitals/I&O/Wt Last Vital Signs Temp 98.0 F 03/25/23 11:46 Pulse 70 03/25/23 11:46 Resp 17 03/25/23 11:46 BP 166/70 03/25/23 11:46 Pulse Ox 96 03/25/23 11:46 O2 Del Method Room Air 03/25/23 11:46 O2 Flow Rate 2 03/23/23 06:00 03/25/23 03/25/23 03/25/23 06:59 14:59 22:59 Intake Total 1031.667 / 1851.667 Balance 1031.667 / 1851.667 Weight last 48 hrs Weight 143 lb Weight 138 lb 8 oz Physical Exam 2 Narrative: General : Patient is well developed , no acute distress, oriented x3 Head : Normal cephalic, a-traumatic. Ears : Pinnae and external canal are normal. Hearing is normal. Eyes : PERRLA, Sclera and injection are normal. No conjunctival discharge. Nose : Mucous membranes are without erythema. Throat : buccal mucosa is normal, gums are without significant recession or hypertrophy. Lungs : Equal chest rise bilaterally, no use of accessory muscles, trachea is midline. Cor : Rate and rhythm are normal. Abdomen : Soft, ND, tender to palpation left lower quadrant, no guarding or rebound Extremities : No edema, no cyanosis or clubbing, dorsalis pedis pulses are present bilaterally, non-tender to palpation of calves. Upper extremities are normal bilaterally. Back : non-tender to palpation, no CVA tenderness. Neuro : CN II - XII intact, Upper and lower extremities have equal and full strength Data 03/24/23 04:23 03/24/23 04:23 Micro: Microbiology 03/24/23 01:22 Urine Culture - Preliminary Urine,Clean Catch A&P Assessment and plan (1) Small bowel obstruction: Plan Technically now she has a partial small bowel obstruction since having a bowel movement after examining her today. NG tube to low intermittent suction IV fluids Aggressive electrolyte replacement Repeat CT abdomen and pelvis Conservative management for now, if she worsens or does not improve we will have to discuss diagnostic laparoscopy versus exploratory laparotomy Medical management per hospitalist Coding Level of Care Code 00026 Diagnoses Small bowel obstruction K56.609
--- NOTE | 2023-03-25 15:23 | CTR_ITS ---
PROCEDURE INFORMATION: Exam: CT Abdomen And Pelvis With Contrast Exam date and time: 03/25/2023 5:49 PM Age: 78 years old Clinical indication: Abdominal pain; Localized; Left lower quadrant (llq); Additional info: Psbo, llq tenderness TECHNIQUE: Imaging protocol: Computed tomography of the abdomen and pelvis with contrast. Radiation optimization: All CT scans at this facility use at least one of these dose optimization techniques: automated exposure control; mA and/or kV adjustment per patient size (includes targeted exams where dose is matched to clinical indication); or iterative reconstruction. Contrast material: OMNI 350; Contrast volume: 100 ml; Contrast route: INTRAVENOUS (IV); COMPARISON: CT abdomen pelvis w con* [id number] 03/23/2023 4:47 AM RADIATION DOSE METRICS: Total DLP (mGy-cm): 400 FINDINGS: Tubes, catheters and devices: Enteric tube tip in the stomach. Lungs: Minimal bibasilar atelectasis. Liver: Normal. No mass. Gallbladder and bile ducts: Pneumobilia, similar to prior exam. Cholecystectomy. Common bile duct is prominent likely related to prior cholecystectomy. Pancreas: Normal. No ductal dilation. Spleen: Normal. No splenomegaly. Adrenal glands: Normal. No mass. Kidneys and ureters: Bilateral renal cysts, negative for follow-up advised. Stomach and bowel: Umxg-py-mitwmksl constipation without bowel dilation to indicate obstruction. 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 Appendix: No evidence of appendicitis. Intraperitoneal space: Unremarkable. No free air. No significant fluid collection. Vasculature: Unremarkable. No abdominal aortic aneurysm. Lymph nodes: Unremarkable. No enlarged lymph nodes. Urinary bladder: Unremarkable as visualized. Reproductive: Unremarkable as visualized. Bones/joints: See Stomach and bowel finding. Soft tissues: Left lower inguinal region minimal subcutaneous emphysema may be related to an injection, please correlate clinically. CT/CT abdomen pelvis w con* [id number] IMPRESSION: 1. Negative for focal acute inflammatory process in the abdomen or pelvis. 2. Pneumobilia, similar to prior exam. 3. Minimal bibasilar atelectasis. 4. Enteric tube tip in the stomach. 5. Cholecystectomy. 6. Common bile duct is prominent likely related to prior cholecystectomy. 7. Bilateral renal cysts, negative for follow-up advised. 8. Jqot-ym-racjevtp constipation without bowel dilation to indicate obstruction. 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 9. Left lower inguinal region minimal subcutaneous emphysema may be related to an injection, please correlate clinically. COMMENTS: Consistent with the [employer]'s Incidental Findings Committee white paper (J Am Patricia Radiol 2018): Any incidental renal lesion less than 1 cm or classified as too small to characterize, or any incidental cystic renal lesion characterized as simple-appearing, is likely benign. No follow-up imaging is recommended for these lesions per consensus recommendations based on imaging criteria.
[2023-03-25] MEDS: iohexol 350 mg/mL 500 mL Btl (per mL) IV (17:52)
[2023-03-26] VITALS (10 sets, daily range): BP systolic 132–184; BP diastolic 57–94; PULSE 64–93; RESP 16–18; TEMP 36.4–37.1; O2SAT 95–98
[2023-03-26] MEDS: sodium chloride 0.9% 1,000 ML 150 ML IV ×3 (04:42→22:19)
[2023-03-26 06:03] LABS: Basophils % 0.5 %; Eosinophils # 0.2 10^3/uL (0.0-0.8); Eosinophils % 1.8 %; Hematocrit 47.2 % (36-47); Lymphocytes # 2.5 10^3/uL (0.8-4.8); Lymphocytes % 29.9 %; Mean Corpuscular HGB Conc 33.1 g/dL (30-55); Mean Corpuscular Hemoglobin 29.7 pg (27-33); Mean Corpuscular Volume 89.7 fl (85-98); Mean Platelet Volume 10.6 fL (7.4-10.4); Monocytes # 0.8 10^3/uL (0.2-0.9); Monocytes % 9.1 %; Neutrophils % 58.3 %; Nucleated Red Blood Cells % 0 %; Platelet Count 216 10^3/cmm (157-399); Red Blood Count 5.26 10^6/uL (3.85-5.65); Red Cell Distribution Width 12.6 % (12.1-15.1); White Blood Count 8.39 10^3/uL (3.29-11.43)
[2023-03-26] MEDS: ondansetron 2 mg/ML SDV 2 mL 4 MG IVP ×2 (06:20→12:40)
[2023-03-26] MEDS: piperacillin-tazobactam 3.375 GM in sodium chloride 0.9% (plus) 50 ML IV ×3 (06:21→22:17)
[2023-03-26 06:26] LABS: Anion Gap 16.2 (5-19); Blood Urea Nitrogen 5 mg/dL (8-23); Carbon Dioxide 23 mmol/L (22-29); Chloride 106 mmol/L (98-107); Glucose 90 mg/dL (65-115); Osmolality Calculated 291 mOsm/kg (285-295); Potassium 3.2 mmol/L (3.5-5.1); Sodium 142 mmol/L (136-145)
[2023-03-26 06:33] LABS: Magnesium 1.7 mg/dL (1.7-2.3)
[2023-03-26] MEDS: magnesium citrate Btl 296 mL PO (10:21)
[2023-03-26] MEDS: Fleet Enema 133 mL Enema PR (10:21)
[2023-03-26] MEDS: enoxaparin 100 mg/mL Syringe 60 MG SUBCUT ×2 (10:21→22:18)
[2023-03-26] MEDS: pantoprazole 40 mg SDV IVP (10:21)
--- NOTE | 2023-03-26 13:11 | P.PN_ITS ---
Subjective 2 Subjective: seen today had small bm overnight at bedside Vitals/I&O/Wt Last Vital Signs Temp 98.2 F 03/26/23 11:36 Pulse 81 03/26/23 11:36 Resp 17 03/26/23 11:36 BP 166/94 03/26/23 11:36 Pulse Ox 98 03/26/23 11:36 O2 Del Method Room Air 03/26/23 11:36 O2 Flow Rate 2 03/23/23 06:00 03/25/23 03/26/23 03/26/23 22:59 06:59 14:59 Intake Total 1050 / 1100 1035 / 2135 Output Total 500 / 500 Balance 1050 / 1100 535 / 1635 Weight last 48 hrs Weight 62.686 kg Weight 64.864 kg Physical Exam 2 Narrative: General: Cooperative patient in no apparent distress. HEENT: Normocephalic, Atraumatic. Heart: RRR. Resp: LCTA. No respiratory distress, Abd: Abdomen is mildly firm, tender to palpation throughout all quadrants. Bowel sounds extremely hypoactive Extremities: No edema. Data 03/26/23 05:27 03/26/23 05:27 Micro: Microbiology 03/24/23 01:22 Urine Culture - Final Urine,Clean Catch A&P Assessment and plan (1) Small bowel obstruction: (2) Acute pancreatitis: (3) Hypertension: (4) Atrial fibrillation: (5) Congestive heart failure: Plan 78-year-old female admitted for small bowel obstruction, elevated lipase with concern for pancreatitis. Continue close inpatient monitoring. Patient has multiple admissions in the past for small bowel obstruction. She has had several abdominal surgeries, likely contributing to her continued problems. Conservative treatment. Start clear liquid diet NG tube came out overnight. We will replace it at this time. ? Discussed with Dr. Carbone over the phone. - Appreciate gen surg recs. - will slowly advance diet. if able to tolerate, consider dc in AM. Zofran as needed, IV Protonix Out of bed to chair. Blood pressure is better controlled and stable. Continue amlodipine. - repeat CT results acknowledged Code Status: DNR DVT PPx: Lovenox GI PPx: Protonix ABx: Zosyn Diet: N.p.o. Discharge plan: Home Attestations 2 Medical Necessity Statement*: Admission for more than 2 midnights for management of recurrent small bowel obstruction Diagnoses Small bowel obstruction K56.609 Acute pancreatitis K85.90 Essential hypertension I10 Paroxysmal atrial fibrillation I48.91 Congestive heart failure I50.9
--- NOTE | 2023-03-26 15:15 | P.PN_ITS ---
Subjective 2 Subjective: Patient seen and examined. Pain improved but still present. She is now passing gas and had a bowel movement. Vitals/I&O/Wt Last Vital Signs Temp 98.2 F 03/26/23 11:36 Pulse 81 03/26/23 11:36 Resp 17 03/26/23 11:36 BP 166/94 03/26/23 11:36 Pulse Ox 98 03/26/23 11:36 O2 Del Method Room Air 03/26/23 11:36 O2 Flow Rate 2 03/23/23 06:00 03/26/23 03/26/23 03/26/23 06:59 14:59 22:59 Intake Total 1035 / 2135 1000 / 1000 Output Total 500 / 500 Balance 535 / 1635 1000 / 1000 Weight last 48 hrs Weight 138 lb 3.2 oz Weight 143 lb Physical Exam 2 Narrative: General: No acute distress, awake alert and oriented x 3 Abdomen: Soft, nondistended, mildly tender to palpation in the left lower quadrant, no guarding rebound or masses Data 03/26/23 05:27 03/26/23 05:27 Micro: Microbiology 03/24/23 01:22 Urine Culture - Final Urine,Clean Catch A&P Assessment and plan (1) Small bowel obstruction: resolved (2) Obstipation: Plan NG tube removed Clear liquid diet Magnesium citrate and fleets enema given Possible discharge home tomorrow Medical management per hospitalist Attestations 2 Medical Necessity Statement*: Per primary Coding Level of Care Code Acute Code for Chg Fwd Diagnoses Small bowel obstruction K56.609 Obstipation K59.00
[2023-03-26] MEDS: lanolin oint 7 gm 1 APPLIC TOPICAL (18:17)
[2023-03-27] VITALS (7 sets, daily range): BP systolic 143–148; BP diastolic 75–97; PULSE 55–79; RESP 15–18; TEMP 36.4–36.7; O2SAT 96–98
[2023-03-27 05:25] LABS: Basophils % 0.7 %; Eosinophils # 0.2 10^3/uL (0.0-0.8); Eosinophils % 3.5 %; Lymphocytes # 2.3 10^3/uL (0.8-4.8); Lymphocytes % 39.8 %; Mean Corpuscular HGB Conc 31.4 g/dL (30-55); Mean Corpuscular Hemoglobin 29.5 pg (27-33); Mean Platelet Volume 10.7 fL (7.4-10.4); Monocytes # 0.6 10^3/uL (0.2-0.9); Monocytes % 10.6 %; Neutrophils # 2.58 10^3/uL (1.8-7.7); Neutrophils % 45.1 %; Nucleated Red Blood Cells % 0 %; Platelet Count 169 10^3/cmm (157-399); Red Blood Count 4.47 10^6/uL (3.85-5.65); Red Cell Distribution Width 12.5 % (12.1-15.1); White Blood Count 5.73 10^3/uL (3.29-11.43)
[2023-03-27 05:45] LABS: Blood Urea Nitrogen 7 mg/dL (8-23); Calcium 8.6 mg/dL (8.5-10.5); Carbon Dioxide 19 mmol/L (22-29); Chloride 109 mmol/L (98-107); Glucose 86 mg/dL (65-115); Osmolality Calculated 287 mOsm/kg (285-295); Sodium 140 mmol/L (136-145)
[2023-03-27] MEDS: sodium chloride 0.9% 1,000 ML 150 ML IV (05:46)
[2023-03-27] MEDS: piperacillin-tazobactam 3.375 GM in sodium chloride 0.9% (plus) 50 ML IV (06:32)
[2023-03-27] MEDS: potassium chloride ER 20 mEq Tablet 40 MEQ PO (08:44)
--- NOTE | 2023-03-27 09:38 | P.PN_ITS ---
Subjective 2 Subjective: Patient seen and examined. She is tolerating a full liquid diet and having multiple bowel movements without nausea or vomiting. Vitals/I&O/Wt Last Vital Signs Temp 98.0 F 03/27/23 08:00 Pulse 79 03/27/23 09:29 Resp 18 03/27/23 09:29 BP 145/85 03/27/23 08:00 Pulse Ox 97 03/27/23 09:29 O2 Del Method Room Air 03/27/23 09:29 O2 Flow Rate 2 03/23/23 06:00 03/26/23 03/27/23 03/27/23 22:59 06:59 14:59 Intake Total 1410 / 2460 1050 / 3510 360 / 360 Balance 1410 / 2460 1050 / 3510 360 / 360 Weight last 48 hrs Weight 139 lb 11.2 oz Weight 138 lb 3.2 oz Physical Exam 2 Narrative: General: No acute distress, awake alert and oriented x 3 Abdomen: Soft, nontender, nondistended, no guarding rebound or masses Data 03/27/23 04:51 03/27/23 04:51 Micro: Microbiology 03/24/23 01:22 Urine Culture - Final Urine,Clean Catch A&P Assessment and plan (1) Small bowel obstruction: resolved (2) Obstipation: Plan Soft diet Surgically stable for discharge if tolerating soft diet No need to follow-up with me as an outpatient I recommended to the patient to keep magnesium citrate on hand if she feels constipated and to uptitrate her MiraLAX Medical management per hospitalist Attestations 2 Medical Necessity Statement*: Per primary Coding Level of Care Code 67607 Diagnoses Small bowel obstruction K56.609 Obstipation K59.00
[2023-03-27] MEDS: pantoprazole 40 mg SDV IVP (10:13)
[2023-03-27] MEDS: enoxaparin 100 mg/mL Syringe 60 MG SUBCUT (10:13)
--- NOTE | 2023-03-27 11:03 | PC.NURSE ---
Patient has some forgetfullness at times. She forgets to push the call light before getting up. Bed alarm has been on but patient shuts off herself. She is alert and oriented this am upon assessment.
--- NOTE | 2023-03-27 11:52 | PC.SOCIAL ---
IMM Update pg 2 of [facility] udpated and reviewed w/ patient. Copy provided and copy dated, initialed and placed in chart.
--- NOTE | 2023-03-27 13:48 | P.DS_ITS ---
Discharge Providers Date of Admission: 03/23/23 06:36 Date of Discharge: March 27, 2023 Attending Provider at Admission: Anna Emerson MD Attending Provider at Discharge: Ela Mckeon MD Primary Care Provider: Baldomero Britt MD Diagnoses at Discharge Discharge Diagnosis (1) Small bowel obstruction: Status: Acute (2) Obstipation: Status: Acute Reason for Visit Reason for Visit: believe bowl blockage Hospital Course Hospital Course Patient was admitted with this small bowel obstruction and managed conservatively. Surgery was also consulted. She is able to tolerate a diet and have bowel movements prior to discharge. Surgically ready for discharge. We will discharge her today. See progress notes for further details. Physical Exam Narrative: General: Cooperative patient in no apparent distress. HEENT: Normocephalic, Atraumatic. Heart: RRR. Resp: LCTA. No respiratory distress, Abd: Abdomen is soft nontender, bowel sounds present and normal. No guarding no rebound. Abdominal exam much improved compared to admission. Extremities: No edema. Discharge Data Studies Completed and Pending Completed Studies During Hospitalization Category Date Time Status CT abdomen pelvis w con* [id number] Routine Cat Scan 03/25/23 15:[address] abdomen pelvis w con* [id number] Stat Cat Scan 03/23/23 04:05 Completed XR KUB portable [id number] Stat Exams 03/25/23 12:25 Completed XR abdomen 1V* [id number] Stat Exams 03/25/23 14:44 Completed XR chest 1V portable [id number] Stat Exams 03/23/23 06:44 Completed Radiology Impressions Chest X-Ray 03/23/23 06:44 IMPRESSION: 1. Although tip of NG tube is within the stomach, the side port is in the distal esophagus. 2. No acute cardiopulmonary abnormality on single view chest radiograph. Abdomen/Pelvis CT 03/25/23 15:23 IMPRESSION: 1. Negative for focal acute inflammatory process in the abdomen or pelvis. 2. Pneumobilia, similar to prior exam. 3. Minimal bibasilar atelectasis. 4. Enteric tube tip in the stomach. 5. Cholecystectomy. 6. Common bile duct is prominent likely related to prior cholecystectomy. 7. Bilateral renal cysts, negative for follow-up advised. 8. Uzxo-xz-rjjbwqve constipation without bowel dilation to indicate obstruction. 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 9. Left lower inguinal region minimal subcutaneous emphysema may be related to an injection, please correlate clinically. COMMENTS: Consistent with the [employer]'s Incidental Findings Committee white paper (J Am Patricia Radiol 2018): Any incidental renal lesion less than 1 cm or classified as too small to characterize, or any incidental cystic renal lesion characterized as simple-appearing, is likely benign. No follow-up imaging is recommended for these lesions per consensus recommendations based on imaging criteria. Laboratory Results WBC 5.73 10^3/uL (3.29-11.43) 03/27/23 04:51 RBC 4.47 10^6/uL (3.85-5.65) 03/27/23 04:51 Hgb 13.20 g/dL (11.27-16.99) 03/27/23 04:51 Hct 42.0 % (36-47) 03/27/23 04:51 MCV 94.0 fl (85-98) 03/27/23 04:51 MCH 29.5 pg (27-33) 03/27/23 04:51 MCHC 31.4 g/dL (30-55) D 03/27/23 04:51 RDW 12.5 % (12.1-15.1) 03/27/23 04:51 Plt Count 169 10^3/cmm (157-399) 03/27/23 04:51 MPV 10.7 fL (7.4-10.4) H 03/27/23 04:51 Neut % (Auto) 45.1 % 03/27/23 04:51 Lymph % (Auto) 39.8 % 03/27/23 04:51 [place] % (Auto) 10.6 % 03/27/23 04:51 Eos % (Auto) 3.5 % 03/27/23 04:51 Baso % (Auto) 0.7 % 03/27/23 04:51 Neut # (Auto) 2.58 10^3/uL (1.8-7.7) 03/27/23 04:51 Lymph # (Auto) 2.3 10^3/uL (0.8-4.8) 03/27/23 04:51 [place] # (Auto) 0.6 10^3/uL (0.2-0.9) 03/27/23 04:51 Eos # (Auto) 0.2 10^3/uL (0.0-0.8) 03/27/23 04:51 Baso # (Auto) 0.0 10^3/uL (0.0-0.1) 03/27/23 04:51 Nucleated RBC % (auto) 0 % 03/27/23 04:51 Nucleated RBCs # 0.0 /100WBC 03/27/23 04:51 PT 13.80 SECONDS (12.1-14.9) 03/23/23 04:43 INR 1.03 (0.8-1.2) 03/23/23 04:43 Sodium 140 mmol/L (136-145) 03/27/23 04:51 Potassium 3.0 mmol/L (3.5-5.1) L 03/27/23 04:51 Chloride 109 mmol/L (98-107) H 03/27/23 04:51 Carbon Dioxide 19 mmol/L (22-29) L 03/27/23 04:51 Anion Gap 15.0 (5-19) 03/27/23 04:51 BUN 7 mg/dL (8-23) L 03/27/23 04:51 Creatinine 0.4 mg/dL (0.5-0.9) L 03/27/23 04:51 GFR Calculation Not Reportable 03/27/23 04:51 Glucose 86 mg/dL (65-115) 03/27/23 04:51 Calculated Osmolality 287 mOsm/kg (285-295) 03/27/23 04:51 Calcium 8.6 mg/dL (8.5-10.5) 03/27/23 04:51 Magnesium 1.7 mg/dL (1.7-2.3) 03/26/23 05:27 Total Bilirubin 1.6 mg/dL (0.15-1.2) H 03/24/23 04:23 AST 28 U/L (0-32) 03/24/23 04:23 ALT 19 U/L (0-33) 03/24/23 04:23 Alkaline Phosphatase 63 U/L (35-105) 03/24/23 04:23 C-Reactive Protein 3.0 mg/L (0.0-4.9) 03/23/23 04:45 Total Protein 5.9 g/dL (6.6-8.7) L D 03/24/23 04:23 Albumin 3.5 g/dL (3.5-5.2) 03/24/23 04:23 Globulin 2.4 g/dL (1.3-4.6) 03/24/23 04:23 Triglycerides 164 mg/dL (0-150) H 03/23/23 04:43 Cholesterol 246 mg/dL (0-200) H 03/23/23 04:43 LDL Cholesterol, Calc 156 mg/dL (50-129) H 03/23/23 04:43 HDL Cholesterol 57 mg/dL (60-100) L 03/23/23 04:43 LDL/HDL Ratio 2.74 RATIO (0.00-3.22) 03/23/23 04:43 Cholesterol/HDL Ratio 4.32 mg/dL (0.0-4.40) 03/23/23 04:43 Lipase > 3363 U/L (13-60) H 03/23/23 04:45 Folate > 20.0 ng/mL (4.8-37.3) 03/24/23 04:23 Urine Color Yellow (Yellow) 03/24/23 01:22 Urine Appearance Hazy (CLEAR) A 03/24/23 01:22 Urine pH 5 (5-7) 03/24/23 01:22 Ur Specific [place] 1.020 (1.005-1.030) 03/24/23 01:22 Urine Protein 1+ (Negative) H 03/24/23 01:22 Urine Glucose (UA) Norm (Normal) 03/24/23 01:22 Urine Ketones 1+ (Negative) H 03/24/23 01:22 Urine Blood 3+ (Negative) H 03/24/23 01:22 Urine Nitrate Positive (Negative) H 03/24/23 01:22 Urine Bilirubin 1+ (Negative) H 03/24/23 01:22 Urine Urobilinogen 1 mg/dL (Negative) H 03/24/23 01:22 Ur Leukocyte Esterase Negative (Negative) 03/24/23 01:22 Urine RBC 15-25 /hpf (0-2) H 03/24/23 01:22 Urine WBC 15-25 /hpf (0-5) H 03/24/23 01:22 Ur Squamous Epith Cells 5-10 /hpf (0-5) H 03/24/23 01:22 Amorphous Sediment 1+ /hpf 03/24/23 01:22 Urine Bacteria 2+ /hpf (NONE) H 03/24/23 01:22 Hyaline Casts 0-4 /lpf H 03/24/23 01:22 Urine Mucus 1+ /hpf 03/24/23 01:22 Vitals Last Vital Signs Temp 97.6 F 03/27/23 11:43 Pulse 73 03/27/23 11:43 Resp 15 03/27/23 11:43 BP 147/97 03/27/23 11:43 Pulse Ox 98 03/27/23 11:43 O2 Del Method Room Air 03/27/23 11:43 O2 Flow Rate 2 03/23/23 06:00 Discharge Plan Discharge Patient Disposition: Home Condition: Stable Prescriptions: Continued Eliquis 5 mg tablet 5 mg PO BID Qty: 180 3RF ondansetron HCl 8 mg tablet 8 mg PO TID PRN (Reason: Nausea And Vomiting) Prevagen 1 cap PO QAM carvedilol 6.25 mg tablet 6.25 mg PO BEDTIME amlodipine 2.5 mg tablet 2.5 mg PO DAILY buspirone 5 mg tablet 5 mg PO TID PRN (Reason: Anxiety) magnesium hydroxide [Milk of Magnesia] 400 mg/5 mL suspension 1,200 mg PO QID PRN (Reason: constipation) Qty: 355 0RF sumatriptan succinate 100 mg Tablet 100 mg PO Q2H MDD 2 doses PRN (Reason: Migraine Headache) Rx Instructions: do not exceed 2 doses per 24 hrs carvedilol 25 mg tablet 12.5 mg PO QAM cyanocobalamin (vitamin B-12) [Vitamin B-12] 1,000 mcg tablet 500 mcg PO QAM polyethylene glycol 3350 [Miralax] 17 gram/dose powder 17 g PO QAM Discharge Orders: Discharge Order (Routine); Ordered 03/27/23 Ordered By: Ela Mckeon Referrals: Baldomero Britt MD [Primary Care Provider] - 04/01/23 1:30 pm Discharge Diet: GI Soft Discharge Activity: Resume usual activity Patient Instructions: Pancreatitis (DC), Obstipation (DC), GI (Gastrointestinal) Soft Diet (DC) Discharge Attestations Time Spent in Discharge Care*: less than 30 min Status at Discharge: Cognitive status at discharge: cognitively intact , Behavioral status at discharge: cooperative , Quality Metrics Clinical Quality Measures [ No reported AMI, CVA or VTE this stay] Coding Level of Care Code Acute Code for Chg Fwd Diagnoses Small bowel obstruction K56.609 Obstipation K59.00
--- NOTE | 2023-03-27 15:24 | PC.NURSE ---
Discussed discharge instructions and follow up appointments. Medications did not change. Explained the GI Soft diet to patient extensively. Both verbalized understanding. Patient doesn't understand some things so explained as much as possible to her.
== END 2023-03-27 15:32 | disposition home or self-care (01) | DRG 388 ==
LOC: ER 06:32 → MEDSURG 06:51
PROVIDERS: Student in an Organized Health Care Education/Training Program; Admitting Provider Student in an Organized Health Care Education/Training Program; Emergency Provider Emergency Medicine; PCP Family Medicine; Visit Provider Internal Medicine
DX: K56.609 Unspecified intestinal obstruction, unspecified as to partial versus complete obstruction (principal); K85.90 Acute pancreatitis without necrosis or infection, unspecified; K59.00 Constipation, unspecified; I48.91 Unspecified atrial fibrillation; I25.10 Atherosclerotic heart disease of native coronary artery without angina pectoris; I11.0 Hypertensive heart disease with heart failure; I50.9 Heart failure, unspecified; Z66 Do not resuscitate; K21.9 Gastro-esophageal reflux disease without esophagitis; F41.9 Anxiety disorder, unspecified; Z87.891 Personal history of nicotine dependence
CPT/HCPCS: 36415; 71045; 74018; 74177; 80048; 80053; 80061; 81001; 82746; 83690; 83735; 85025; 85610; 86140; 87086; 94664; 96372; 96374; 96375; 99285; C9113; J1630; J1650; J2270; J2405; J2543; J7030; J7042; Q9967

== ENCOUNTER 2023-04-01 04:02 | Emergency (ER) | payer MEDICARE, OTHER, SELFPAY ==
[2023-04-01] VITALS (8 sets, daily range): BP systolic 127–179; BP diastolic 60–93; PULSE 62–83; RESP 16; TEMP 36.6; O2SAT 93–97; BMI 25.2
--- NOTE | 2023-04-01 04:05 | CTR_ITS ---
PROCEDURE INFORMATION: Exam: CT Abdomen And Pelvis With Contrast Exam date and time: 04/01/2023 4:40 AM Age: 78 years old Clinical indication: Nausea and vomiting; Abdominal pain; Prior surgery; Surgery date: 6+ months; Surgery type: Gb. Hernia repair. Colectomy. Bowel resection. Hysterectomy. Patient HX: C/O abd pain with n/v. History of recurrent sbo and chronic pneumobilia. TECHNIQUE: Imaging protocol: Computed tomography of the abdomen and pelvis with contrast. Radiation optimization: All CT scans at this facility use at least one of these dose optimization techniques: automated exposure control; mA and/or kV adjustment per patient size (includes targeted exams where dose is matched to clinical indication); or iterative reconstruction. Contrast material: OMNI 350; Contrast volume: 100 ml; Contrast route: INTRAVENOUS (IV); COMPARISON: CT abdomen pelvis w con* [id number] 03/25/2023 5:49 PM RADIATION DOSE METRICS: Total DLP (mGy-cm): 443.71 FINDINGS: Lungs: No consolidation. Pleural spaces: No pleural effusion. Liver: Fatty liver. Gallbladder and bile ducts: Status post cholecystectomy with biliary ductal dilation, increased. Pneumobilia. Pancreas: No ductal dilation. Spleen: There are splenic granulomas. Adrenal glands: Normal. No mass. Kidneys and ureters: Bilateral cortical renal hypodensities may represent cysts in can be confirmed with nonemergent renal ultrasound not previously performed. There is no hydronephrosis. Stomach and bowel: Status post surgical changes of multiple bowel loops. There is no bowel dilation. No high-grade bowel obstruction. Fluid noted in the proximal colon, correlate with history of diarrheal illness. Appendix: The appendix is not identified. There are no focal inflammatory changes in the right lower quadrant. Intraperitoneal space: No free air. Vasculature: No portal venous gas. Lymph nodes: No enlarged lymph nodes. Urinary bladder: Unremarkable as visualized. Reproductive: Status post hysterectomy. Bones/joints: Degenerative changes of the lumbar spine. Soft tissues: Previous hernia repair noted. CT/CT abdomen pelvis w con* [id number] IMPRESSION: 1. Status post cholecystectomy with redemonstration of biliary ductal dilation and pneumobilia, increased compared to recent study dated 03/25/2023. Correlation biliary markers and MRCP may be helpful. 2. Fluid noted in the proximal colon, correlate with history of diarrheal illness. 3. Other chronic/nonemergent findings, as above. 3. COMMENTS: Consistent with the [employer]'s Incidental Findings Committee white paper (J Am Patricia Radiol 2018): Any incidental renal lesion less than 1 cm or classified as too small to characterize, or any incidental cystic renal lesion characterized as simple-appearing, is likely benign. No follow-up imaging is recommended for these lesions per consensus recommendations based on imaging criteria.
--- NOTE | 2023-04-01 04:09 | ED_ITS ---
Documented by User: Austen Martinez MD 04/01/23 04:12 HPI - Abdominal Pain 2 General: Chief Complaint: Abdominal Pain Stated Complaint: ABD Pain\N Time Seen by Provider: 04/01/23 04:05 Source: patient Mode of arrival: ambulatory Limitations: no limitations History of Present Illness: 78-year-old female who is very well-know n to the ER she is had multiple bowel obstructions a past states she did have an abdominal pain with vomiting over the last 5 hours states the pain is diffuse rates it a 8 out of 10. Denies any diarrhea denies any worsening proving factors Associated Symptoms: Reports nausea and vomiting; Denies chills, diarrhea, dysuria and fever(s) Review of Systems 2 Const: Denies: fever(s), chills, body aches or change in appetite ENMT: Denies: throat pain or dental pain Card: Denies: chest pain Resp: Denies: dyspnea GI: Reports: abdominal pain, nausea and vomiting; Denies: diarrhea : Denies: dysuria Musc: Denies: neck pain or back pain Skin/Breast: Denies: rash Neuro: Denies: headache(s) PFSH ED 2 PFSH: Medical History Hx SBO Lumbar stenosis with neurogenic claudication Atrial fibrillation Low back pain at multiple sites Myopericarditis Protein-energy malnutrition Congestive heart failure Non-ST elevation MD (NSTEMI) Discitis, unspecified, lumbar region MRSA bacteremia Small bowel obstruction Pain of both breasts DM II (diabetes mellitus, type II), controlled Chronic nausea GUILLAUME (generalized anxiety disorder) Colonic diverticular abscess Necrotizing fasciitis Coronary disease Osteoarthritis Gout Scleroderma Pericarditis Migraine Hypertension GERD (gastroesophageal reflux disease) Surgical History History of delivery History of neck surgery History of cholecystectomy H/O hernia repair H/O colectomy S/P dilatation of esophageal stricture S/P ANH-BSO Family History Mother Congestive heart failure Social History Smoking and tobacco/nicotine status: former use of tobacco/nicotine Alcohol intake: never Substance/Drug Use: never Lives independently: No Household members: spouse Marital status: Physical Exam 2 Const: COMMON NORMALS: no acute distress, patient oriented x3 and healthy appearing HENMT: COMMON NORMALS: normocephalic and atraumatic HEAD & SCALP: n ormocephalic and atraumatic Neck/C-Spine: COMMON NORMALS: full ROM and supple Chest: COMMONS NORMALS: normal inspection of the chest Resp: COMMON NORMALS: normal respiratory effort, No retractions, No use of accessory muscles and clear to auscultation bilaterally AUSCULTATION: clear to auscultation bilaterally Cardio: COMMON NORMALS: regular rate, regular rhythm and No murmurs present (Cardio) RATE: regular rate RHYTHM: regular rhythm GI: COMMON NORMALS: Soft to palpation and no masses PALPATION: Yes Soft to palpation OTHER: Diffuse tenderness Extremity: COMMON NORMALS: normal to inspection and full ROM Neuro: COMMON NORMALS: patient oriented x3, moves all extremities and no focal motor deficits Psych: COMMON NORMALS: mental status grossly normal, Normal thought process present and cooperative THOUGHT PROCESS: Normal thought process present Skin: COMMON NORMALS: no rashes or lesions noted and no wounds GENERAL SKIN EXAM: no rashes or lesions noted Course 2 Vital Signs: Vital signs: Vital Signs Temperature 97.8 F 04/01/23 04:05 Pulse Rate 68 04/01/23 10:00 Respiratory Rate 16 04/01/23 06:42 Blood Pressure 127/60 04/01/23 06:42 Pulse Oximetry 93 04/01/23 10:00 Oxygen Delivery Me thod Room Air 04/01/23 04:05 MDM - Abdominal Pain Lab Data 04/01/23 04:32 04/01/23 04:32 Labs/Radiology: Radiology Impressions Abdomen/Pelvis CT 04/01/23 04:05 IMPRESSION: 1. Status post cholecystectomy with redemonstration of biliary ductal dilation and pneumobilia, increased compared to recent study dated 03/25/2023. Correlation biliary markers and MRCP may be helpful. 2. Fluid noted in the proximal colon, correlate with history of diarrheal illness. 3. Other chronic/nonemergent findings, as above. 3. COMMENTS: Consistent with the [employer]'s Incidental Findings Committee white paper (J Am Patricia Radiol 2018): Any incidental renal lesion less than 1 cm or classified as too small to characterize, or any incidental cystic renal lesion characterized as simple-appearing, is likely benign. No follow-up imaging is recommended for these lesions per consensus recommendations based on imaging criteria. Laboratory Results WBC 17.01 10^3/uL (3.29-11.43) H 04/01/23 04:32 RBC 5.41 10^6/uL (3.85-5.65) 04/01/23 04:32 Hgb 16.20 g/dL (11.27-16.99) 04/01/23 04:32 Hct 48.6 % (36-47) H 04/01/23 04:32 MCV 89.8 fl (85-98) 04/01/23 04:32 MCH 29.9 pg (27-33) 04/01/23 04:32 MCHC 33.3 g/dL (30-55) 04/01/23 04:32 RDW 13.2 % (12.1-15.1) 04/01/23 04:32 Plt Count 244 10^3/cmm (157-399) 04/01/23 04:32 MPV 10.5 fL (7.4-10.4) H 04/01/23 04:32 Neut % (Auto) 83.9 % 04/01/23 04:32 Lymph % (Auto) 9.3 % 04/01/23 04:32 [place] % (Auto) 4.1 % 04/01/23 04:32 Eos % (Auto) 1.8 % 04/01/23 04:32 Baso % (Auto) 0.4 % 04/01/23 04:32 Neut # (Auto) 14.28 10^3/uL (1.8-7.7) H 04/01/23 04:32 Lymph # (Auto) 1.6 10^3/uL (0.8-4.8) 04/01/23 04:32 [place] # (Auto) 0.7 10^3/uL (0.2-0.9) 04/01/23 04:32 Eos # (Auto) 0.3 10^3/uL (0.0-0.8) 04/01/23 04:32 Baso # (Auto) 0.1 10^3/uL (0.0-0.1) 04/01/23 04:32 Nucleated RBC % (auto) 0 % 04/01/23 04:32 Nucleated RBCs # 0.0 /100WBC 04/01/23 04:32 Sodium 139 mmol/L (136-145) 04/01/23 04:32 Potassium 3.4 mmol/L (3.5-5.1) L 04/01/23 04:32 Chloride 101 mmol/L (98-107) 04/01/23 04:32 Carbon Dioxide 25 mmol/L (22-29) 04/01/23 04:32 Anion Gap 16.4 (5-19) 04/01/23 04:32 BUN 11 mg/dL (8-23) 04/01/23 04:32 Creatinine 0.6 mg/dL (0.5-0.9) 04/01/23 04:32 GFR Calculation Not Reportable 04/01/23 04:32 Glucose 159 mg/dL (65-115) H 04/01/23 04:32 Calculated Osmolality 291 mOsm/kg (285-295) 04/01/23 04:32 Calcium 9.7 mg/dL (8.5-10.5) 04/01/23 04:32 Total Bilirubin 0.8 mg/dL (0.15-1.2) 04/01/23 04:32 AST 26 U/L (0-32) 04/01/23 04:32 ALT 25 U/L (0-33) 04/01/23 04:32 Alkaline Phosphatase 74 U/L (35-105) 04/01/23 04:32 Total Protein 7.0 g/dL (6.6-8.7) 04/01/23 04:32 Albumin 4.4 g/dL (3.5-5.2) 04/01/23 04:32 Globulin 2.6 g/dL (1.3-4.6) 04/01/23 04:32 Lipase 58 U/L (13-60) 04/01/23 04:32 Urine Color Yellow (Yellow) 04/01/23 05:00 Urine Appearance Sl hazy (CLEAR) A 04/01/23 05:00 Urine pH 6.5 (5-7) 04/01/23 05:00 Ur Specific [place] 1.010 (1.005-1.030) 04/01/23 05:00 Urine Protein Trace (Negative) 04/01/23 05:00 Urine Glucose (UA) Norm (Normal) 04/01/23 05:00 Urine Ketones Negative (Negative) 04/01/23 05:00 Urine Blood 2+ (Negative) H 04/01/23 05:00 Urine Nitrate Negative (Negative) 04/01/23 05:00 Urine Bilirubin Neg (Negative) 04/01/23 05:00 Urine Urobilinogen Norm mg/dL (Negative) 04/01/23 05:00 Ur Leukocyte Esterase Negative (Negative) 04/01/23 05:00 Urine RBC 0-4 /hpf (0-2) H 04/01/23 05:00 Urine WBC 5-10 /hpf (0-5) H 04/01/23 05:00 Ur Squamous Epith Cells 0-4 /hpf (0-5) H 04/01/23 05:00 Amorphous Sediment Not Reportable 04/01/23 05:00 Urine Bacteria 1+ /hpf (NONE) H 04/01/23 05:00 Discharge Plan Discharge Patient Disposition: Home Clinical Impression: Abdominal pain, Gastroenteritis Condition: Stable Prescriptions: New ondansetron HCl 4 mg tablet 4 mg PO Q6H PRN (Reason: nausea and vomiting) Qty: 20 0RF No Action Eliquis 5 mg tablet 5 mg PO BID Qty: 180 3RF ondansetron HCl 8 mg tablet 8 mg PO TID PRN (Reason: Nausea And Vomiting) Prevagen 1 cap PO QAM carvedilol 6.25 mg tablet 6.25 mg PO BEDTIME amlodipine 2.5 mg tablet 2.5 mg PO DAILY buspirone 5 mg tablet 5 mg PO TID PRN (Reason: Anxiety) magnesium hydroxide [Milk of Magnesia] 400 mg/5 mL suspension 1,200 mg PO QID PRN (Reason: constipation) Qty: 355 0RF sumatriptan succinate 100 mg Tablet 100 mg PO Q2H MDD 2 doses PRN (Reason: Migraine Headache) Rx Instructions: do not exceed 2 doses per 24 hrs carvedilol 25 mg tablet 12.5 mg PO QAM cyanocobalamin (vitamin B-12) [Vitamin B-12] 1,000 mcg tablet 500 mcg PO QAM polyethylene glycol 3350 [Miralax] 17 gram/dose powder 17 g PO QAM Discharge Orders: Discharge ED (Routine); Ordered 04/01/23 Ordered By: Bhargav Mendoza Referrals: Baldomero Britt MD [Primary Care Provider] - Discharge Diet: Clear Liquid Discharge Activity: Increase activity as tolerated Patient Instructions: Abdominal Pain (ED), Opioid Safety, Pain Management Activity Restrictions/Additional Instructions: Thank you for choosing [facility] for your healthcare needs today. Please realize this is an emergency room and that we are providing you with a medical screening exam and this may not be complete and all inclusive of all the testing and or work up that you may need to determine your ailment or severity of your illness. It is very important that you follow up as instructed or that you return to the Emergency Department should you have concerns or if your condition changes or worsens in any way. Clinical diet for next 24 to 48 hours and advance as tolerated. Sign Out Sign Out Data: Patient Sign Out occurred on 04/01/23 at 05:19. Patient's care was discussed, and care was transferred from Austen Martinez MD to Bhargav Mendoza DO. Coding Level of Care Code ED Hog Cutter for Chg Fwd Documented by User: Bhargav Mendoza DO 04/01/23 10:59 HPI - Abdominal Pain 2 General: Chief Complaint: Abdominal Pain Stated Complaint: ABD Pain\N Time Seen by Provider: 04/01/23 04:05 [facility] ED 2 [facility]: Medical History Hx SBO Lumbar stenosis with neurogenic claudication Atrial fibrillation Low back pain at multiple sites Myopericarditis Protein-energy malnutrition Congestive heart failure Non-ST elevation MD (NSTEMI) Discitis, unspecified, lumbar region MRSA bacteremia Small bowel obstruction Pain of both breasts DM II (diabetes mellitus, type II), controlled Chronic nausea GUILLAUME (generalized anxiety disorder) Colonic diverticular abscess Necrotizing fasciitis Coronary disease Osteoarthritis Gout Scleroderma Pericarditis Migraine Hypertension GERD (gastroesophageal reflux disease) Surgical History History of delivery History of neck surgery History of cholecystectomy H/O hernia repair H/O colectomy S/P dilatation of esophageal stricture S/P ANH-BSO Family History Mother Congestive heart failure Social History Smoking and tobacco/nicotine status: former use of tobacco/nicotine Alcohol intake: never Substance/Drug Use: never Lives independently: No Household members: spouse Marital status: Course 2 Vital Signs: Vital signs: Vital Signs Temperature 97.8 F 04/01/23 04:05 Pulse Rate 68 04/01/23 10:00 Respiratory Rate 16 04/01/23 06:42 Blood Pressure 127/60 04/01/23 06:42 Pulse Oximetry 93 04/01/23 10:00 Oxygen Delivery Me thod Room Air 04/01/23 04:05 MDM - Abdominal Pain Medical Decision Making Care assumed at change of shift from Dr. Martinez. MRCP showed persistent dilation of the common bile duct but no obstruction her liver functions and T. bili are normal today she is feeling somewhat better her white count is elevated think that may be related to her vomiting repeat exam her abdominal exam is benign. She has 5-10 white blood cells per high-power field in her urine but negative nitrates and leukocyte Estrace she is not having any symptoms at this time we will hold off on starting antibiotics because of her history of recurrent GI symptoms. Antibiotics can be started if culture is negative. Patient states she is feel better would like to go home encouraged clear liquid diet for 24 to 40 hours advance as tolerated antiemetics as needed Differential Diagnosis Likely abdominal pain, constipation, diverticulitis, gastroenteritis, pancreatitis and small bowel obstruction Medical Records I reviewed the patient's medical records. Lab Data I reviewed the patient's lab results. 04/01/23 04:32 04/01/23 04:32 Labs/Radiology: Radiology Impressions Abdomen/Pelvis CT 04/01/23 04:05 IMPRESSION: 1. Status post cholecystectomy with redemonstration of biliary ductal dilation and pneumobilia, increased compared to recent study dated 03/25/2023. Correlation biliary markers and MRCP may be helpful. 2. Fluid noted in the proximal colon, correlate with history of diarrheal illness. 3. Other chronic/nonemergent findings, as above. 3. COMMENTS: Consistent with the [place] [employer]'s Incidental Findings Committee white paper (J Am Patricia Radiol 2018): Any incidental renal lesion less than 1 cm or classified as too small to characterize, or any incidental cystic renal lesion characterized as simple-appearing, is likely benign. No follow-up imaging is recommended for these lesions per consensus recommendations based on imaging criteria. Laboratory Results WBC 17.01 10^3/uL (3.29-11.43) H 04/01/23 04:32 RBC 5.41 10^6/uL (3.85-5.65) 04/01/23 04:32 Hgb 16.20 g/dL (11.27-16.99) 04/01/23 04:32 Hct 48.6 % (36-47) H 04/01/23 04:32 MCV 89.8 fl (85-98) 04/01/23 04:32 MCH 29.9 pg (27-33) 04/01/23 04:32 MCHC 33.3 g/dL (30-55) 04/01/23 04:32 RDW 13.2 % (12.1-15.1) 04/01/23 04:32 Plt Count 244 10^3/cmm (157-399) 04/01/23 04:32 MPV 10.5 fL (7.4-10.4) H 04/01/23 04:32 Neut % (Auto) 83.9 % 04/01/23 04:32 Lymph % (Auto) 9.3 % 04/01/23 04:32 [place] % (Auto) 4.1 % 04/01/23 04:32 Eos % (Auto) 1.8 % 04/01/23 04:32 Baso % (Auto) 0.4 % 04/01/23 04:32 Neut # (Auto) 14.28 10^3/uL (1.8-7.7) H 04/01/23 04:32 Lymph # (Auto) 1.6 10^3/uL (0.8-4.8) 04/01/23 04:32 [place] # (Auto) 0.7 10^3/uL (0.2-0.9) 04/01/23 04:32 Eos # (Auto) 0.3 10^3/uL (0.0-0.8) 04/01/23 04:32 Baso # (Auto) 0.1 10^3/uL (0.0-0.1) 04/01/23 04:32 Nucleated RBC % (auto) 0 % 04/01/23 04:32 Nucleated RBCs # 0.0 /100WBC 04/01/23 04:32 Sodium 139 mmol/L (136-145) 04/01/23 04:32 Potassium 3.4 mmol/L (3.5-5.1) L 04/01/23 04:32 Chloride 101 mmol/L (98-107) 04/01/23 04:32 Carbon Dioxide 25 mmol/L (22-29) 04/01/23 04:32 Anion Gap 16.4 (5-19) 04/01/23 04:32 BUN 11 mg/dL (8-23) 04/01/23 04:32 Creatinine 0.6 mg/dL (0.5-0.9) 04/01/23 04:32 GFR Calculation Not Reportable 04/01/23 04:32 Glucose 159 mg/dL (65-115) H 04/01/23 04:32 Calculated Osmolality 291 mOsm/kg (285-295) 04/01/23 04:32 Calcium 9.7 mg/dL (8.5-10.5) 04/01/23 04:32 Total Bilirubin 0.8 mg/dL (0.15-1.2) 04/01/23 04:32 AST 26 U/L (0-32) 04/01/23 04:32 ALT 25 U/L (0-33) 04/01/23 04:32 Alkaline Phosphatase 74 U/L (35-105) 04/01/23 04:32 Total Protein 7.0 g/dL (6.6-8.7) 04/01/23 04:32 Albumin 4.4 g/dL (3.5-5.2) 04/01/23 04:32 Globulin 2.6 g/dL (1.3-4.6) 04/01/23 04:32 Lipase 58 U/L (13-60) 04/01/23 04:32 Urine Color Yellow (Yellow) 04/01/23 05:00 Urine Appearance Sl hazy (CLEAR) A 04/01/23 05:00 Urine pH 6.5 (5-7) 04/01/23 05:00 Ur Specific [place] 1.010 (1.005-1.030) 04/01/23 05:00 Urine Protein Trace (Negative) 04/01/23 05:00 Urine Glucose (UA) Norm (Normal) 04/01/23 05:00 Urine Ketones Negative (Negative) 04/01/23 05:00 Urine Blood 2+ (Negative) H 04/01/23 05:00 Urine Nitrate Negative (Negative) 04/01/23 05:00 Urine Bilirubin Neg (Negative) 04/01/23 05:00 Urine Urobilinogen Norm mg/dL (Negative) 04/01/23 05:00 Ur Leukocyte Esterase Negative (Negative) 04/01/23 05:00 Urine RBC 0-4 /hpf (0-2) H 04/01/23 05:00 Urine WBC 5-10 /hpf (0-5) H 04/01/23 05:00 Ur Squamous Epith Cells 0-4 /hpf (0-5) H 04/01/23 05:00 Amorphous Sediment Not Reportable 04/01/23 05:00 Urine Bacteria 1+ /hpf (NONE) H 04/01/23 05:00 All radiology interpretation(s) finalized by discharge Discharge Plan Discharge Patient Disposition: Home Clinical Impression: Abdominal pain, Gastroenteritis Condition: Stable Prescriptions: New ondansetron HCl 4 mg tablet 4 mg PO Q6H PRN (Reason: nausea and vomiting) Qty: 20 0RF No Action Eliquis 5 mg tablet 5 mg PO BID Qty: 180 3RF ondansetron HCl 8 mg tablet 8 mg PO TID PRN (Reason: Nausea And Vomiting) Prevagen 1 cap PO QAM carvedilol 6.25 mg tablet 6.25 mg PO BEDTIME amlodipine 2.5 mg tablet 2.5 mg PO DAILY buspirone 5 mg tablet 5 mg PO TID PRN (Reason: Anxiety) magnesium hydroxide [Milk of Magnesia] 400 mg/5 mL suspension 1,200 mg PO QID PRN (Reason: constipation) Qty: 355 0RF sumatriptan succinate 100 mg Tablet 100 mg PO Q2H MDD 2 doses PRN (Reason: Migraine Headache) Rx Instructions: do not exceed 2 doses per 24 hrs carvedilol 25 mg tablet 12.5 mg PO QAM cyanocobalamin (vitamin B-12) [Vitamin B-12] 1,000 mcg tablet 500 mcg PO QAM polyethylene glycol 3350 [Miralax] 17 gram/dose powder 17 g PO QAM Discharge Orders: Discharge ED (Routine); Ordered 04/01/23 Ordered By: Bhargav Mendoza Referrals: Baldomero Britt MD [Primary Care Provider] - Discharge Diet: Clear Liquid Discharge Activity: Increase activity as tolerated Patient Instructions: Abdominal Pain (ED), Opioid Safety, Pain Management Activity Restrictions/Additional Instructions: [facility] you [facility] today. Please realize this is an emergency room and that we are providing you with a medical screening exam and this may not be complete and all inclusive of all the testing and or work up that you may need to determine your ailment or severity of your illness. It is very important that you follow up as instructed or that you return to the Emergency Department should you have concerns or if your condition changes or worsens in any way. Clinical diet for next 24 to 48 hours and advance as tolerated. Sign Out Sign Out Data: Patient Sign Out occurred on 04/01/23 at 05:19. Patient's care was discussed, and care was transferred from Austen Martinez MD to Bhargav Mendoza DO. Coding Level of Care Code ED Hog Cutter for Tad Sanderson
[2023-04-01] MEDS: ondansetron 2 mg/ML SDV 2 mL 4 MG IVP (04:32)
[2023-04-01] MEDS: morphine 4 mg/mL SDV 1 mL IVP (04:33)
[2023-04-01] MEDS: sodium chloride 0.9% 1,000 ML 999 ML IV (04:33)
[2023-04-01] MEDS: iohexol 350 mg/mL 500 mL Btl (per mL) IV (04:42)
[2023-04-01 04:43] LABS: Basophils # 0.1 10^3/uL (0.0-0.1); Basophils % 0.4 %; Eosinophils # 0.3 10^3/uL (0.0-0.8); Eosinophils % 1.8 %; Hematocrit 48.6 % (36-47); Lymphocytes # 1.6 10^3/uL (0.8-4.8); Lymphocytes % 9.3 %; Mean Corpuscular HGB Conc 33.3 g/dL (30-55); Mean Corpuscular Hemoglobin 29.9 pg (27-33); Mean Corpuscular Volume 89.8 fl (85-98); Mean Platelet Volume 10.5 fL (7.4-10.4); Monocytes # 0.7 10^3/uL (0.2-0.9); Monocytes % 4.1 %; Neutrophils # 14.28 10^3/uL (1.8-7.7); Neutrophils % 83.9 %; Nucleated Red Blood Cells % 0 %; Platelet Count 244 10^3/cmm (157-399); Red Blood Count 5.41 10^6/uL (3.85-5.65); Red Cell Distribution Width 13.2 % (12.1-15.1); White Blood Count 17.01 10^3/uL (3.29-11.43)
[2023-04-01 04:55] LABS: Alanine Aminotransferase 25 U/L (0-33); Albumin Level 4.4 g/dL (3.5-5.2); Alkaline Phosphatase 74 U/L (35-105); Anion Gap 16.4 (5-19); Aspartate Amino Transferase 26 U/L (0-32); Blood Urea Nitrogen 11 mg/dL (8-23); Calcium 9.7 mg/dL (8.5-10.5); Carbon Dioxide 25 mmol/L (22-29); Chloride 101 mmol/L (98-107); Globulin 2.6 g/dL (1.3-4.6); Glucose 159 mg/dL (65-115); Lipase 58 U/L (13-60); Osmolality Calculated 291 mOsm/kg (285-295); Potassium 3.4 mmol/L (3.5-5.1); Sodium 139 mmol/L (136-145); Total Bilirubin 0.8 mg/dL (0.15-1.2)
--- NOTE | 2023-04-01 05:05 | MR_ITS ---
WS: [id number] MRCP (MAGNETIC RESONANCE CHOLANGIOPANCREATOGRAPHY) HISTORY: abdominal pain COMPARISON: CT 04/01/2023 and 03/25/2023, 12/13/2022 TECHNIQUE: Multiple sequences are performed to evaluate the intra and extrahepatic ducts. Status post cholecystectomy. Patient has known pneumobilia which has been present on prior studies. T here is pneumobilia which has been present on multiple prior examinations. The common bile duct is di lated throughout its course measuring up to 10 mm. There are no intraluminal filling defects identifi ed. There is mildly abrupt tapering of the CBD. Pancreatic duct is not dilated. No abnormality noted at the pancreatic head. There is also mild central biliary dilatation. Bilateral subcentimeter cortical renal cysts with the largest measuring 12 mm on the LEFT. No adrenal mass. No ascites. No adenopathy. No pleural effusion. IMPRESSION: 1. Prior cholecystectomy. 2. There is diffuse common bile duct dilatation measuring up to 10 mm along with pneumobilia. No int raluminal filling defect identified. There is rapid tapering towards the ampulla. There may be a sten osis. No mass or intraluminal stone identified. ERCP may be of benefit. The common bile duct dilatati on has not progressed since at least 12/13/2022. 3. No pancreatic duct dilatation. No abnormality at the pancreatic head. The common bile duct dilata tion may be physiologic. 4. Mild pneumobilia and mild central bile duct dilatation.
[2023-04-01 05:55] LABS: Add Urine Microscopic? YES; Bacteria Urine 1+ /hpf; Bilirubin Urine Neg (Negative); Blood Urine 2+ (Negative); Glucose Urine UA Norm (Normal); Ketones Urine Negative (Negative); Leukocyte Esterase Urine Negative (Negative); Nitrate Urine Negative (Negative); Protein Urine Trace (Negative); RBC Urine 0-4 /hpf (0-2); Squamous Epithelial Cell Urine 0-4 /hpf (0-5); Urine Appearance SL Hazy (CLEAR); Urine Color Yellow (Yellow); Urobilinogen Urine Norm (Negative); pH Urine 6.5 (5-7)
[2023-04-01] MEDS: piperacillin-tazobactam 3.375 GM in sodium chloride 0.9% (plus) 50 ML IV (06:00)
--- NOTE | 2023-04-01 07:06 | PC.NURSE ---
assumed care from laney LAZAR
== END 2023-04-01 11:02 | disposition home or self-care (01) ==
PROVIDERS: Emergency Medicine; Emergency Provider Family Medicine; PCP Family Medicine
DX: K52.9 Noninfective gastroenteritis and colitis, unspecified (principal); Z79.01 Long term (current) use of anticoagulants; Z87.891 Personal history of nicotine dependence; I11.0 Hypertensive heart disease with heart failure; I50.9 Heart failure, unspecified; I25.2 Old myocardial infarction; E11.9 Type 2 diabetes mellitus without complications; I25.10 Atherosclerotic heart disease of native coronary artery without angina pectoris
CPT/HCPCS: 74177; 74181; 80053; 81001; 83690; 85025; 96365; 96375; 99285; J2270; J2405; J2543; J7030; Q9967

== ENCOUNTER → 2023-06-14 07:57 | Outpatient (BNVA) | payer MEDICARE, OTHER, SELFPAY | PROVIDERS: PCP Family Medicine; Visit Provider Podiatrist Foot & Ankle Surgery | DX: M20.42 Other hammer toe(s) (acquired), left foot (principal); L84 Corns and callosities | CPT/HCPCS: 99203 ==

== ENCOUNTER → 2023-06-25 13:55 | Outpatient (BNVA) | payer MEDICARE, OTHER, SELFPAY | PROVIDERS: PCP Family Medicine; Visit Provider Internal Medicine Cardiovascular Disease | DX: I48.11 Longstanding persistent atrial fibrillation (principal); I11.0 Hypertensive heart disease with heart failure; I50.32 Chronic diastolic (congestive) heart failure; K59.09 Other constipation; Z87.891 Personal history of nicotine dependence; Z79.01 Long term (current) use of anticoagulants | CPT/HCPCS: 99214 ==

== ENCOUNTER → 2023-07-17 09:53 | Outpatient (BNVA) | payer MEDICARE, OTHER, SELFPAY | PROVIDERS: PCP Family Medicine; Visit Provider Psychiatry & Neurology Neurology | DX: R41.3 Other amnesia (principal); I48.91 Unspecified atrial fibrillation; Z79.01 Long term (current) use of anticoagulants; I11.0 Hypertensive heart disease with heart failure; I50.9 Heart failure, unspecified; R29.90 Unspecified symptoms and signs involving the nervous system; E55.9 Vitamin D deficiency, unspecified | CPT/HCPCS: 99203 ==

== ENCOUNTER 2023-07-19 06:33 | Outpatient (CLI) | payer MEDICARE, OTHER, SELFPAY ==
--- NOTE | 2023-07-19 06:45 | USCV_ITS ---
Anju Duffy Age: 78 Gender: F : 1945 Exam Date: 07/19/2023 06:44 Ordering Phys: Erasto Chan MD Technologist: MIRIAM Exam Location: [facility] [place] Indication: Memory Loss, HTN Risk Factors: Previous Vascular Surgery: Right Brachial BP: / Left Brachial BP: / Right Left Velocity (cm/s) Spectral Plaque Velocity (cm/s) Spectral Plaque Syst/Diast Broadening Syst/Diast Broadening 113.50/13.70 Prox CCA 73.40 / 16.80 83.00/ 16.10 Mid CCA 91.30 / 18.60 103.10/18.90 Distal CCA 114.40/ 23.90 80.10/ 17.40 Prox ICA 81.80 / 20.30 86.80/ 18.50 Mid ICA 70.30 / 20.10 80.40/ 17.20 Distal ICA 63.70 / 21.40 97.80 ECA 83.60 0.80 ICA/CCA 0.70 Antegrade Vertebral Antegrade 55.10/ 14.70 cm/s 39.60/ 11.10 cm/s Tri Subclavian Tri 180.9 107.8 0 0 FINDINGS Comparison:. 01/25/21 No significant elevation of systolic or diastolic velocities. Diffuse, mild bilateral scattered calcified plaque and intimal thickening throughout the common carotid arteries and extending through the bifurcation. Antegrade vertebral arteries. CONCLUSIONS Bilateral ICA stenosis less than 50%. Mild bilateral carotid atherosclerosis. Dr. Carla Arndt DO (Electronically Signed) Final Date: 19 Jul 2023 07:56 S
== END 2023-07-19 06:34 | disposition home or self-care (01) ==
LOC: RAD 06:34
PROVIDERS: PCP Family Medicine; Visit Provider Psychiatry & Neurology Neurology
DX: I11.0 Hypertensive heart disease with heart failure (principal); I48.11 Longstanding persistent atrial fibrillation; R41.3 Other amnesia; I50.32 Chronic diastolic (congestive) heart failure; I65.23 Occlusion and stenosis of bilateral carotid arteries
CPT/HCPCS: 93880

== ENCOUNTER 2023-08-02 10:33 | Emergency (ER) | payer MEDICARE, SELFPAY ==
[2023-08-02 10:42] VITALS: BP 188/99; PULSE 99; RESP 22; O2SAT 100
--- NOTE | 2023-08-02 10:57 | CT_ITS ---
WS: [id number] CT CERVICAL SPINE HISTORY: neck pain TECHNIQUE: Contiguous 2.0 mm axial imaging performed through the entire cervical spine. Sagittal and coronal reformats also performed. All CT scans at [facility] use at least one of these dose o ptimization techniques: automated exposure control; mA and/or kV adjustment per patient size (include s targeted exams where dose is matched to clinical indication); or iterative reconstruction. DLP: 161.87 mGy.cm COMPARISON: 10/11/2020 Posterior alignment is normal. Osteopenia. No fractures. Facet joints are narrowed. Bony fusion acros s the C3-4, C4-5 facet joints. C1 and C2 are aligned. The odontoid is intact. C2-C3: Moderate LEFT facet arthritis and foraminal narrowing. C3-C4: Osteophytic ridging greatest to the LEFT. Moderate to severe LEFT foraminal stenosis and facet arthritis. C4-C5: Osteophytic ridging with marked facet joint arthritis. Moderate foraminal stenosis. C5-C6: Marked osteophytic ridging, greatest on the LEFT. Severe LEFT and moderate RIGHT foraminal marilia nosis. C6-C7: Mild foraminal stenosis and facet arthritis. C7-T1: Normal. Lung apices are clear. Cervical carotid artery atherosclerotic plaque. CT/CT cervical spin wo con* [id number] IMPRESSION: 1. No acute cervical spine fracture. 2. Facet joint effusion at C3-4 and C4-5. 3. Advanced facet joint arthritis resulting in foraminal stenosis at multiple levels as above.
--- NOTE | 2023-08-02 11:00 | W.ED.NECK ---
HPI - Neck Pain/Injury General: Chief Complaint: Neck Pain/Injury Stated Complaint: left side shoulder pain, vomiting Time Seen by Provider: 08/02/23 10:54 History of Present Illness: 78-year-old female with a history of multiple abdominal surgeries, hypertension coronary artery disease congestive heart failure atrial fibrillation on Eliquis and chronic pain syndrome taking 30 mg of immediate release morphine who presents today with neck and shoulder pain. This been present for a few days. She took her morphine today but it made her nauseous. She went to her primary care provider who sent her to the emergency room because she had nothing she can do to help us from her . No focal motor deficits. She says she is starting to have some abdominal pain and she has a history of recurrent bowel obstructions. Review of Systems Narrative: Constitutional symptoms: Negative except as documented in HPI. Skin symptoms: Negative except as documented in HPI. Eye symptoms: Negative except as documented in HPI. ENMT symptoms: Negative except as documented in HPI. Respiratory symptoms: Negative except as documented in HPI. Cardiovascular symptoms: Negative except as documented in HPI. Gastrointestinal symptoms: Negative except as documented in HPI. Genitourinary symptoms: Negative except as documented in HPI. Musculoskeletal symptoms: Negative except as documented in HPI. Neurologic symptoms: Negative except as documented in HPI. Psychiatric symptoms: Negative except as documented in HPI. Endocrine symptoms: Negative except as documented in HPI. [facility] ED PFSH: Medical History Hx SBO Lumbar stenosis with neurogenic claudication Atrial fibrillation Low back pain at multiple sites Myopericarditis Protein-energy malnutrition Congestive heart failure Non-ST elevation HI (NSTEMI) Discitis, unspecified, lumbar region MRSA bacteremia Small bowel obstruction Pain of both breasts DM II (diabetes mellitus, type II), controlled Chronic nausea GUILLAUME (generalized anxiety disorder) Colonic diverticular abscess Necrotizing fasciitis Coronary disease Osteoarthritis Gout Scleroderma Pericarditis Migraine Hypertension GERD (gastroesophageal reflux disease) Surgical History History of delivery History of neck surgery History of cholecystectomy H/O hernia repair H/O colectomy S/P dilatation of esophageal stricture S/P ANH-BSO Family History Mother Congestive heart failure (CHF) Social History Smoking and tobacco/nicotine status: current every day tobacco/nicotine user Alcohol intake: never Substance/Drug Use: never Lives independently: No Household members: spouse Marital status: Physical Exam Narrative: EXAM NARRATIVE: General: Alert Skin: Warm, dry. Head: Normocephalic, atraumatic. Neck: Supple, trachea midline. Eye: Extraocular movements are intact. Ears, nose, mouth and throat: mucosa moist. Cardiovascular: Regular, Normal peripheral perfusion. Respiratory: Lungs are clear to auscultation, respirations are non-labored, breath sounds are equal, Symmetrical chest wall expansion. Gastrointestinal: Soft, Nontender, Non distended, Normal bowel sounds. Musculoskeletal: Normal ROM, no deformity. Neurological: Alert and oriented, No focal neurological deficit observed. Psychiatric: Cooperative, patient is tearful and complaining of pain Course Vital Signs: Vital signs: Vital Signs Pulse Rate 99 08/02/23 10:42 Respiratory Rate 18 08/02/23 13:57 Blood Pressure 188/99 08/02/23 10:42 Pulse Oximetry 100 08/02/23 10:42 Oxygen Delivery Me thod Room Air 08/02/23 10:42 MDM - Neck Pain/Injury Medical Decision Making Medical decision making: Differential diagnosis including but not limited to and based on the above HPI, review of systems and physical exam: CT of the C-spine was ordered secondary to pain. This seems more likely to be neuropathic type pain. Basic lab work was ordered. Also urinalysis says she has been having some nausea now. And an acute abdominal series because she is prone to having bowel obstructions. Orders placed to evaluate differential diagnosis based on the above differential, HPI and physical exam Lab Review: Laboratory results were reviewed and interpreted by myself the emergency room physician. White count of 16,000. This is regular for her. Her hemoglobin is 17.4. Mean and creatinine are 19 and 0.7. UA shows some reds and some bacteria but no white cells. I am going to treat with a dose of Rocephin as she seems to be somewhat immunocompromised with her medical state and age. CT head: No acute intracranial process. no intracranial hemorrhage, no evidence of infarct. no evidence of acute fracture.This was reviewed and interpreted by myself the ER physician. Prolonged length of stay secondary to urine not being obtained for almost 2 hours. Urine was reported about the 3-hour lucila I reviewed the patient's medical record. Reexamination: Patient says she still hurting but feels a little bit better. She is received Decadron, small dose of Toradol and 2 mg of Dilaudid while she is here along with fluids and Zofran. No altered mental status. No increased work of breathing. Discussed with about the morphine. She has not been taking that regularly it was from an old surgery. I feel that might be a little bit too strong for this and so we will try just some hydrocodone. She is aware that she needs to be careful about constipation with her history of bowel obstructions. Also aware she needs to keep an eye on her sugars with steroids. We can attempt steroids for anti-inflammatory purposes. Assessment and plan: Neck pain UTI -IV Decadron, IV Toradol 15 mg. 1 L normal saline bolus. 2 mg Dilaudid. IV Rocephin - Discharged home - Discussed plan with patient. Answered any questions. - Evaluation and treatment of this problem were appropriate in the emergency setting. Lab Data 08/02/23 11:55 08/02/23 11:55 Radiology Impressions Cervical Spine CT 08/02/23 10:57 IMPRESSION: 1. No acute cervical spine fracture. 2. Facet joint effusion at C3-4 and C4-5. 3. Advanced facet joint arthritis resulting in foraminal stenosis at multiple levels as above. Chest/Abdomen X-ray 08/02/23 11:29 IMPRESSION: No acute thoracic pathology. IMPRESSION: Globular fullness at the level of the pelvis. Could be related to a distended urinary bladder, fluid-filled bowel loops with fecal material, or other underlying pelvic pathology. Consider follow-up films or correlation with CT for clarification. Laboratory Results WBC 16.21 10^3/uL (3.29-11.43) H 08/02/23 11:55 RBC 5.82 10^6/uL (3.85-5.65) H 08/02/23 11:55 Hgb 17.40 g/dL (11.27-16.99) H 08/02/23 11:55 Hct 53.6 % (36-47) H 08/02/23 11:55 MCV 92.1 fl (85-98) 08/02/23 11:55 MCH 29.9 pg (27-33) 08/02/23 11:55 MCHC 32.5 g/dL (30-55) 08/02/23 11:55 RDW 12.7 % (12.1-15.1) 08/02/23 11:55 Plt Count 240 10^3/cmm (157-399) 08/02/23 11:55 MPV 10.5 fL (7.4-10.4) H 08/02/23 11:55 Neut % (Auto) 82.0 % 08/02/23 11:55 Lymph % (Auto) 8.0 % 08/02/23 11:55 [place] % (Auto) 8.0 % 08/02/23 11:55 Eos % (Auto) 0.9 % 08/02/23 11:55 Baso % (Auto) 0.4 % 08/02/23 11:55 Neut # (Auto) 13.28 10^3/uL (1.8-7.7) H 08/02/23 11:55 Lymph # (Auto) 1.3 10^3/uL (0.8-4.8) 08/02/23 11:55 [place] # (Auto) 1.3 10^3/uL (0.2-0.9) H 08/02/23 11:55 Eos # (Auto) 0.2 10^3/uL (0.0-0.8) 08/02/23 11:55 Baso # (Auto) 0.1 10^3/uL (0.0-0.1) 08/02/23 11:55 Nucleated RBC % (auto) 0 % 08/02/23 11:55 Nucleated RBCs # 0.0 /100WBC 08/02/23 11:55 Sodium 138 mmol/L (136-145) 08/02/23 11:55 Potassium 3.9 mmol/L (3.5-5.1) 08/02/23 11:55 Chloride 104 mmol/L (98-107) 08/02/23 11:55 Carbon Dioxide 22 mmol/L (22-29) 08/02/23 11:55 Anion Gap 15.9 (5-19) 08/02/23 11:55 BUN 19 mg/dL (8-23) 08/02/23 11:55 Creatinine 0.7 mg/dL (0.5-0.9) 08/02/23 11:55 GFR Calculation Not Reportable 08/02/23 11:55 Glucose 115 mg/dL (65-115) 08/02/23 11:55 Calculated Osmolality 289 mOsm/kg (285-295) 08/02/23 11:55 Calcium 9.6 mg/dL (8.5-10.5) 08/02/23 11:55 Total Bilirubin 0.8 mg/dL (0.15-1.2) 08/02/23 11:55 AST 27 U/L (0-32) 08/02/23 11:55 ALT 19 U/L (0-33) 08/02/23 11:55 Alkaline Phosphatase 75 U/L (35-105) 08/02/23 11:55 C-Reactive Protein 3.0 mg/L (0.0-4.9) 08/02/23 11:55 Total Protein 7.3 g/dL (6.6-8.7) 08/02/23 11:55 Albumin 4.2 g/dL (3.5-5.2) 08/02/23 11:55 Globulin 3.1 g/dL (1.3-4.6) 08/02/23 11:55 Lipase 41 U/L (13-60) 08/02/23 11:55 Urine Color Yellow (Yellow) 08/02/23 12:52 Urine Appearance Clear (CLEAR) 08/02/23 12:52 Urine pH 7 (5-7) 08/02/23 12:52 Ur Specific [place] 1.010 (1.005-1.030) 08/02/23 12:52 Urine Protein 1+ (Negative) H 08/02/23 12:52 Urine Glucose (UA) Norm (Normal) 08/02/23 12:52 Urine Ketones Negative (Negative) 08/02/23 12:52 Urine Blood 2+ (Negative) H 08/02/23 12:52 Urine Nitrate Negative (Negative) 08/02/23 12:52 Urine Bilirubin 1+ (Negative) H 08/02/23 12:52 Urine Urobilinogen 1 mg/dL (Negative) H 08/02/23 12:52 Ur Leukocyte Esterase Trace (Negative) H 08/02/23 12:52 Urine RBC 5-10 /hpf (0-2) H 08/02/23 12:52 Urine WBC None /hpf (0-5) 08/02/23 12:52 Ur Squamous Epith Cells 0-4 /hpf (0-5) H 08/02/23 12:52 Amorphous Sediment Not Reportable 08/02/23 12:52 Urine Bacteria 1+ /hpf (NONE) H 08/02/23 12:52 Hyaline Casts 0-4 /lpf H 08/02/23 12:52 All radiology interpretation(s) finalized by discharge Discharge Plan Discharge Patient Disposition: Home Clinical Impression: Neck pain, Acute UTI Condition: Stable Prescriptions: New cyclobenzaprine 10 mg tablet 10 mg PO Q8H Qty: 20 0RF hydrocodone-acetaminophen 5-325 mg tablet 1 tab PO Q6H PRN (Reason: pain) Qty: 20 0RF dexamethasone 6 mg tablet 6 mg PO DAILY 5 Days Qty: 5 0RF cephalexin 500 mg capsule 500 mg PO BID 5 Days Qty: 10 0RF No Action morphine 30 mg tablet 30 mg PO Q8H PRN (Reason: pain) 30 Days Qty: 30 0RF Eliquis 5 mg tablet 5 mg PO BID Qty: 180 3RF naproxen 500 mg tablet 500 mg PO BID ondansetron HCl 8 mg tablet 8 mg PO TID PRN (Reason: Nausea And Vomiting) Qty: 90 3RF promethazine 12.5 mg tablet 12.5 mg PO TID PRN (Reason: nausea and vomiting) Qty: 90 1RF sumatriptan succinate 100 mg tablet 100 mg PO Q2H MDD 2 doses PRN (Reason: Migraine Headache) Qty: 60 0RF Rx Instructions: do not exceed 2 doses per 24 hrs carvedilol 6.25 mg tablet 6.25 mg PO BEDTIME amlodipine 2.5 mg tablet 2.5 mg PO DAILY buspirone 5 mg tablet 5 mg PO TID PRN (Reason: Anxiety) magnesium hydroxide [Milk of Magnesia] 400 mg/5 mL suspension 1,200 mg PO QID PRN (Reason: constipation) Qty: 355 0RF carvedilol 25 mg tablet 12.5 mg PO QAM polyethylene glycol 3350 [Miralax] 17 gram/dose powder 17 g PO QAM Discharge Orders: Discharge ED (Routine); Ordered 08/02/23 Ordered By: Thelma Sanchez Referrals: Antwan Bernal DO [Primary Care Provider] - 4-7 days Discharge Diet: Usual diet Discharge Activity: Increase activity as tolerated Patient Instructions: Acute Neck Pain (ED), Opioid Safety, Pain Management Activity Restrictions/Additional Instructions: Thank you for choosing [facility] for your healthcare needs today. Please realize this is an emergency room and that we are providing you with a medical screening exam and this may not be complete and all inclusive of all the testing and or work up that you may need to determine your ailment or severity of your illness. You have been screened and evaluated and felt safe for discharge. Health conditions do change or evolve sometimes and as such it is important that you follow up with your Primary Doctor to be re checked, 3-5 days is a general good time frame for follow up. You are always welcome to return to the ED for re assessment if your symptoms are worsening or you have new concerns Coding Level of Care Code ED Rig Mechanic for Tad Sanderson
--- NOTE | 2023-08-02 11:29 | XRR_ITS ---
PROCEDURE INFORMATION: Exam: XR Chest Exam date and time: 08/02/2023 11:35 AM Age: 78 years old Clinical indication: Vomiting; Abdominal pain; Generalized; Prior surgery; Surgery date: 6+ months TECHNIQUE: Imaging protocol: Radiologic exam of the chest. Views: 1 view. COMPARISON: CR (CHEST, ) 11/11/2022 4:56 AM FINDINGS: Airway: The airways are patent. Lungs: No acute interstitial or airspace disease. Pleural spaces: No pleural effusions or pneumothorax. Heart/Mediastinum: Heart is of normal size and morphology. The mediastinal contour is normal. Vasculature: Calcified aortic knob. Bones/joints: No acute fracture, dislocation, or aggressive osseous lesion. 5 mm calcification in the left rotator cuff, compatible with rotator cuff calcific tendinopathy. Soft tissues: No significant soft tissue swelling. PROCEDURE INFORMATION: Exam: XR Abdomen Exam date and time: 08/02/2023 11:35 AM Age: 78 years old Clinical indication: Vomiting; Abdominal pain; Generalized; Prior surgery; Surgery date: 6+ months TECHNIQUE: Imaging protocol: Radiologic exam of the abdomen. Views: 2 Views. Upright and supine views. COMPARISON: MR MRCP [id number] 04/01/2023 8:38 AM FINDINGS: Gastrointestinal tract: There is excessive colonic stool content. Nonobstructive bowel gas pattern. Intraperitoneal space: Two metallic linear structures in the left lower quadrant measuring 1.1 cm, presumably surgical clips as well and stable from prior. Globular fullness at the level of the pelvis. There is no free intraperitoneal air. Bones/joints: No acute skeletal abnormality or aggressive osseous lesion. Soft tissues: Ventral abdominal wall clips project throughout the abdomen.Surgical clips are present in the right upper quadrant, consistent with previous cholecystectomy. XR/XR acute abdomen series [id number] IMPRESSION: No acute thoracic pathology. IMPRESSION: Globular fullness at the level of the pelvis. Could be related to a distended urinary bladder, fluid-filled bowel loops with fecal material, or other underlying pelvic pathology. Consider follow-up films or correlation with CT for clarification.
[2023-08-02 12:03] LABS: Basophils # 0.1 10^3/uL (0.0-0.1); Basophils % 0.4 %; Eosinophils # 0.2 10^3/uL (0.0-0.8); Eosinophils % 0.9 %; Hematocrit 53.6 % (36-47); Lymphocytes # 1.3 10^3/uL (0.8-4.8); Mean Corpuscular HGB Conc 32.5 g/dL (30-55); Mean Corpuscular Hemoglobin 29.9 pg (27-33); Mean Corpuscular Volume 92.1 fl (85-98); Mean Platelet Volume 10.5 fL (7.4-10.4); Monocytes # 1.3 10^3/uL (0.2-0.9); Neutrophils # 13.28 10^3/uL (1.8-7.7); Nucleated Red Blood Cells % 0 %; Platelet Count 240 10^3/cmm (157-399); Red Blood Count 5.82 10^6/uL (3.85-5.65); Red Cell Distribution Width 12.7 % (12.1-15.1); White Blood Count 16.21 10^3/uL (3.29-11.43)
[2023-08-02] MEDS: ketorolac 30 mg/mL INJ 15 MG IVP (12:20)
[2023-08-02] MEDS: ondansetron 2 mg/ML SDV 2 mL 8 MG IVP (12:21)
[2023-08-02] MEDS: dexamethasone 10 mg/mL INJ IVP (12:21)
[2023-08-02 12:23] LABS: Alanine Aminotransferase 19 U/L (0-33); Albumin Level 4.2 g/dL (3.5-5.2); Alkaline Phosphatase 75 U/L (35-105); Aspartate Amino Transferase 27 U/L (0-32); Blood Urea Nitrogen 19 mg/dL (8-23); Calcium 9.6 mg/dL (8.5-10.5); Carbon Dioxide 22 mmol/L (22-29); Chloride 104 mmol/L (98-107); Globulin 3.1 g/dL (1.3-4.6); Glucose 115 mg/dL (65-115); Lipase 41 U/L (13-60); Osmolality Calculated 289 mOsm/kg (285-295); Sodium 138 mmol/L (136-145); Total Bilirubin 0.8 mg/dL (0.15-1.2); Total Protein 7.3 g/dL (6.6-8.7)
[2023-08-02 12:40] LABS: Anion Gap 15.9 (5-19); Potassium 3.9 mmol/L (3.5-5.1)
[2023-08-02 13:28] LABS: Urine Color Yellow (Yellow)
[2023-08-02 13:29] LABS: Bilirubin Urine 1+ (Negative); Blood Urine 2+ (Negative); Glucose Urine UA Norm (Normal); Ketones Urine Negative (Negative); Leukocyte Esterase Urine Trace (Negative); Nitrate Urine Negative (Negative); Protein Urine 1+ (Negative); Urine Appearance Clear (CLEAR); Urobilinogen Urine 1 mg/dL (Negative); pH Urine 7 (5-7)
[2023-08-02 13:31] LABS: Add Urine Culture? No; Bacteria Urine 1+ /hpf; Hyaline Casts Urine 0-4 /lpf; Squamous Epithelial Cell Urine 0-4 /hpf (0-5)
[2023-08-02 13:57] VITALS: RESP 18
[2023-08-02] MEDS: HYDROmorphone 1 mg/mL INJ 1 mL 2 MG IVP (13:57)
[2023-08-02] MEDS: cefTRIAXone 1,000 MG in sodium chloride 0.9% (plus) 50 ML 100 MG IV (14:17)
[2023-08-02 14:31] VITALS: BP 161/89; PULSE 88; RESP 16; TEMP 36.8; O2SAT 98
== END 2023-08-02 14:33 | disposition home or self-care (01) ==
PROVIDERS: Emergency Provider Emergency Medicine; PCP Family Medicine
DX: M54.2 Cervicalgia (principal); N39.0 Urinary tract infection, site not specified; Z79.01 Long term (current) use of anticoagulants; Z72.0 Tobacco use; I25.2 Old myocardial infarction; E11.9 Type 2 diabetes mellitus without complications; I25.10 Atherosclerotic heart disease of native coronary artery without angina pectoris; I10 Essential (primary) hypertension
CPT/HCPCS: 36415; 72125; 74022; 80053; 81001; 83690; 85025; 86140; 96374; 96375; 99285; J0696; J1100; J1170; J1885; J2405

== ENCOUNTER 2023-08-08 08:28 | Outpatient (CLI) | payer MEDICARE, OTHER, SELFPAY ==
--- NOTE | 2023-08-08 08:45 | MR_ITS ---
WS: [id number] MRI BRAIN WITHOUT AND WITH CONTRAST, ATTENTION DIRECTED TO THE PITUITARY GLAND HISTORY: R41.3 - Other amnesia COMPARISON: None available. TECHNIQUE: Diffusion-weighted imaging, axial T2 sequence, and postcontrast images in 3 planes are per formed. High-resolution coronal and sagittal imaging performed through the pituitary region with and without intravenous gadolinium. No acute infarct. Minimal atrophy. There is no hemorrhage or mass effect. Mild small vessel ischemic disease. Ventricles are normal size. No inferior displacement of the cerebellar tonsils. There is a bulbous appearance of the pituitary gland. In the dorsum sellae the pituitary extends 6 mm superior-inferior. On the postcontrast imaging there is a nonenhancing mass just to the RIGHT of mid line measuring 6 x 4 x 4 mm. This is most consistent with a pituitary microadenoma. There is very sli ght deviation upon the infundibulum. No displacement of the optic chiasm. Normal appearance of the ca rotid arteries through the cavernous sinuses. No additional areas of abnormal enhancement throughout the brain. Dural sinuses are normal. Sinuses, mastoid air cells and calvarium are unremarkable. Orbits and globes are negative. Normal neha w voids. MR/MR pituitary wo/w con* [id number] IMPRESSION: 1. Pituitary microadenoma measuring 6 x 4 x 4 mm. There is very slight encroac hment upon the infundibulum. Optic chiasm is normal. 2. No additional intracranial masses or hemorrhage. No acute infarct. 3. Mild atrophy and mild small vessel ischemic disease.
[2023-08-08] MEDS: gadobenate dimeglumine 20 mL vial IV (09:45)
== END 2023-08-08 08:29 | disposition home or self-care (01) ==
LOC: RAD 08:28
PROVIDERS: PCP Family Medicine; Visit Provider Psychiatry & Neurology Neurology
DX: R41.3 Other amnesia (principal); R29.90 Unspecified symptoms and signs involving the nervous system; D35.2 Benign neoplasm of pituitary gland
CPT/HCPCS: 70553; A9577

== ENCOUNTER → 2023-08-21 08:53 | Outpatient (BNVA) | payer MEDICARE, OTHER, SELFPAY | PROVIDERS: PCP Family Medicine; Referring Provider Psychiatry & Neurology Neurology; Visit Provider Internal Medicine | DX: D35.2 Benign neoplasm of pituitary gland (principal); I10 Essential (primary) hypertension; R41.3 Other amnesia | CPT/HCPCS: 99204 ==

== ENCOUNTER 2023-09-16 08:03 | Outpatient (CLI) | payer MEDICARE, OTHER, SELFPAY ==
[2023-09-16 09:45] LABS: Basophils # 0.1 10^3/uL (0.0-0.1); Basophils % 0.9 %; Eosinophils # 0.3 10^3/uL (0.0-0.8); Eosinophils % 3.9 %; Hematocrit 47.5 % (36-47); Lymphocytes # 1.8 10^3/uL (0.8-4.8); Lymphocytes % 28.9 %; Mean Corpuscular HGB Conc 32.6 g/dL (30-55); Mean Corpuscular Hemoglobin 30.3 pg (27-33); Monocytes # 0.6 10^3/uL (0.2-0.9); Monocytes % 9.1 %; Neutrophils # 3.61 10^3/uL (1.8-7.7); Neutrophils % 56.7 %; Nucleated Red Blood Cells % 0 %; Platelet Count 194 10^3/cmm (157-399); Red Blood Count 5.11 10^6/uL (3.85-5.65); Red Cell Distribution Width 12.5 % (12.1-15.1); White Blood Count 6.37 10^3/uL (3.29-11.43)
[2023-09-16 10:17] LABS: Free T4 Free Thyroxine 1.14 ng/dL (0.82-1.77); Potassium 3.7 mmol/L (3.5-5.1)
[2023-09-16 10:22] LABS: Alanine Aminotransferase 13 U/L (0-33); Alkaline Phosphatase 70 U/L (35-105); Anion Gap 13.6 (5-19); Aspartate Amino Transferase 21 U/L (0-32); Blood Urea Nitrogen 12 mg/dL (8-23); Calcium 9.2 mg/dL (8.5-10.5); Carbon Dioxide 25 mmol/L (22-29); Chloride 105 mmol/L (98-107); Cortisol Random 12.76 ug/dL (2.47-19.5); Free T4 Free Thyroxine 1.14 ng/dL (0.82-1.77); Globulin 2.5 g/dL (1.3-4.6); Glucose 137 mg/dL (65-115); Osmolality Calculated 292 mOsm/kg (285-295); Potassium 3.6 mmol/L (3.5-5.1); Sodium 140 mmol/L (136-145); T3 Free 3.4 PG/ML (2.0-4.4); Thyroid Stimulating Hormone 2.33 uIU/mL (0.27-4.20); Total Bilirubin 0.8 mg/dL (0.15-1.2); Total Protein 6.5 g/dL (6.6-8.7)
[2023-09-16 10:40] LABS: Homocysteine 9.73 umol/l (0-15)
[2023-09-16 11:02] LABS: 25 Hydroxy Vitamin D 56 ng/mL (30-100); Prolactin 8.31 ng/mL (4.8-23.3); Vitamin B12 433 pg/mL (232-1245)
[2023-09-16 11:17] LABS: Folate Level > 20.0 ng/mL (4.8-37.3)
[2023-09-17 11:14] LABS: RPR w(Moniotor) w/REFL Titer NON-REACTIVE (NON-REACTIVE)
[2023-09-18 07:18] LABS: Thyroid Peroxidase Antobodies <1 IU/mL (<9)
[2023-09-19 10:25] LABS: IGF1 LC/MS 56 ng/mL (34-245); Z Score (Female) -1.1 SD (-2.0 - +2.0)
[2023-09-19 15:25] LABS: Methylmalonic Acid 216 nmol/L (69-390)
[2023-09-19 18:08] LABS: Adrenocorticotropic Hormone 8 pg/mL (6-50)
[2023-09-20 13:40] LABS: Vitamin B6 Plasma 17.5 ng/mL (2.1-21.7)
== END 2023-09-16 08:04 | disposition home or self-care (01) ==
PROVIDERS: Internal Medicine; PCP Family Medicine; Visit Provider Psychiatry & Neurology Neurology
DX: R41.3 Other amnesia (principal); D35.2 Benign neoplasm of pituitary gland; I10 Essential (primary) hypertension; E55.9 Vitamin D deficiency, unspecified; R29.90 Unspecified symptoms and signs involving the nervous system
CPT/HCPCS: 36415; 80053; 82024; 82306; 82533; 82607; 82746; 83090; 83921; 84132; 84146; 84207; 84305; 84425; 84439; 84443; 84481; 85025; 86376; 86592

== ENCOUNTER 2023-09-23 11:06 | Outpatient (CLI) | payer MEDICARE, OTHER, SELFPAY | END 2023-09-23 11:07 | disposition home or self-care (01) | LOC: LAB 11:07 | PROVIDERS: Psychiatry & Neurology Neurology; PCP Family Medicine; Visit Provider Internal Medicine | DX: R41.3 Other amnesia (principal); D35.2 Benign neoplasm of pituitary gland | CPT/HCPCS: 36415; 84425 ==

== ENCOUNTER → 2023-09-30 14:24 | Outpatient (BNVA) | payer MEDICARE, OTHER, SELFPAY | PROVIDERS: PCP Family Medicine; Visit Provider Psychiatry & Neurology Neurology | DX: R41.3 Other amnesia (principal); E55.9 Vitamin D deficiency, unspecified; D35.2 Benign neoplasm of pituitary gland; I11.0 Hypertensive heart disease with heart failure; I50.9 Heart failure, unspecified; I48.91 Unspecified atrial fibrillation; Z79.01 Long term (current) use of anticoagulants | CPT/HCPCS: 36415; 82542; 84425; 99212 ==

== ENCOUNTER 2023-10-05 02:08 | Inpatient (IN) | payer MEDICARE, OTHER, SELFPAY ==
[2023-10-05] VITALS (15 sets, daily range): BP systolic 121–218; BP diastolic 70–100; PULSE 69–80; RESP 16–22; TEMP 36.4–36.9; O2SAT 92–100; BMI 21.9; BMI 26.0
--- NOTE | 2023-10-05 02:23 | CTR_ITS ---
PROCEDURE INFORMATION: Exam: CT Abdomen And Pelvis With Contrast Exam date and time: 10/05/2023 3:10 AM Age: 78 years old Clinical indication: Abdominal pain; Generalized; Prior surgery; Surgery date: 6+ months; Surgery type: Gb. Hernia mesh. Small bowel resection. Partial colectomy. Hysterectomy. Patient HX: C/O sudden onset of severe abd pain with nausea. History of recurrent sbo. ; Additional info: Abd pain, HX of bowel obs TECHNIQUE: Imaging protocol: Computed tomography of the abdomen and pelvis with contrast. Radiation optimization: All CT scans at this facility use at least one of these dose optimization techniques: automated exposure control; mA and/or kV adjustment per patient size (includes targeted exams where dose is matched to clinical indication); or iterative reconstruction. Contrast material: OMNI 350; Contrast volume: 80 ml; Contrast route: INTRAVENOUS (IV); COMPARISON: MR MRCP [id number] 04/01/2023 8:38 AM RADIATION DOSE METRICS: Total DLP (mGy-cm): 440.41 FINDINGS: Lungs: Medial right lower lobe bronchiectasis with scarring and tree-in-bud nodularity as well as bronchial wall thickening. Heart: Base of heart is unremarkable as visualized. Liver: Normal. No mass. Gallbladder and biliary ducts: Status post cholecystectomy. Mild increase in volume of pneumobilia from prior comparison. Stable common biliary duct dilation. 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 Spleen: Splenic granulomas. Adrenal glands: Normal. No mass. Kidneys and ureters: See Urinary bladder finding. Stomach and bowel: Extensive postsurgical changes of the gastrointestinal. Stomach is dilated. Numerous loops of fluid and stool distended large and small bowel are apparent. Fecalized loops of small bowel reaching up to 3.7 cm in the pelvis. Collapsed loop of bowel appreciated in the right lower quadrant adjacent the right lower quadrant anastomotic suture chain. Lack of intraperitoneal fat limits the examination. Appendix: No evidence of appendicitis. Intraperitoneal space: Postsurgical change of the anterior abdominal. Vasculature: Atherosclerotic disease of the abdominal aorta. Similar-appearing stenosis of the celiac and superior mesenteric artery ostia with good distal reconstitution of the vasculature. Lymph nodes: Unremarkable. No enlarged lymph nodes. Urinary bladder: Stable bilateral renal hypodensities urinary bladder is dilated. Reproductive: Unremarkable as visualized. Bones/joints: Degenerative change of the visualized osseous structures. Soft tissues: Unremarkable. CT/CT abdomen pelvis w con* [id number] IMPRESSION: 1. Diffuse fluid and distended loops of large and small bowel, as well as, dilation of the stomach. Collapsed loop of bowel in the right lower quadrant adjacent the anastomotic suture chain, which may suggest transition point. Recommend surgical consultation. 2. Right lower lobe findings suggestive of infection/aspiration. Correlate clinically. 3. Additional stable findings as above.
[2023-10-05 02:43] LABS: Bilirubin Urine Neg (Negative); Blood Urine 3+ (Negative); Glucose Urine UA Norm (Normal); Ketones Urine Negative (Negative); Nitrate Urine Negative (Negative); Protein Urine Neg (Negative); Specific Gravity, Urine 1.015 (1.005-1.030); Urine Appearance Cloudy (CLEAR); Urine Color Yellow (Yellow); pH Urine 9 (5-7)
[2023-10-05 02:44] LABS: Add Urine Microscopic? YES; Bacteria Urine 1+ /hpf; Leukocyte Esterase Urine Negative (Negative); Urobilinogen Urine Neg (Negative); WBC Urine 0-4 /hpf (0-5)
[2023-10-05 02:52] LABS: Basophils % 0.6 %; Eosinophils # 0.2 10^3/uL (0.0-0.8); Eosinophils % 4.4 %; Hematocrit 51.6 % (36-47); Lymphocytes # 2.4 10^3/uL (0.8-4.8); Lymphocytes % 46.6 %; Mean Corpuscular HGB Conc 33.5 g/dL (30-55); Mean Corpuscular Hemoglobin 30.1 pg (27-33); Mean Corpuscular Volume 89.9 fl (85-98); Monocytes # 0.4 10^3/uL (0.2-0.9); Monocytes % 8.4 %; Neutrophils # 2.09 10^3/uL (1.8-7.7); Neutrophils % 39.8 %; Nucleated Red Blood Cells % 0 %; Platelet Count 188 10^3/cmm (157-399); Red Blood Count 5.74 10^6/uL (3.85-5.65); Red Cell Distribution Width 12.7 % (12.1-15.1); White Blood Count 5.24 10^3/uL (3.29-11.43)
[2023-10-05] MEDS: sodium chloride 0.9% 1,000 ML 999 ML IV (02:54)
[2023-10-05] MEDS: ondansetron 2 mg/ML SDV 2 mL 4 MG IVP ×3 (02:55→09:37)
[2023-10-05] MEDS: HYDROmorphone 1 mg/mL INJ 1 mL IVP ×2 (02:57→04:40)
[2023-10-05 03:09] LABS: Lactic Sepsis W/Reflex 1.7 mmol/L (0.5-2.2)
--- NOTE | 2023-10-05 03:11 | ED_ITS ---
HPI - Abdominal Pain 2 General: Chief Complaint: Abdominal Pain Stated Complaint: Possible Bowell Blockage Time Seen by Provider: 10/05/23 02:21 History of Present Illness: 78-year-old female well-known to the [facility] department service. She has a history of ongoing bowel problems, with several episodes of bowel obstruction in the past. She presents with generalized abdominal pain. No vomiting yet she says. She states that she had been doing well, with a regular regimen of stool softeners and laxatives, and physical activity. She notes that she has been weak, and not able to walk daily as she usually does because of flu symptoms that had lasted a few days. She believes this could be the cause of her abdominal pain. No fever. No blood in the stool. PFSH ED 2 PFSH: Medical History Hx SBO Lumbar stenosis with neurogenic claudication Atrial fibrillation Low back pain at multiple sites Myopericarditis Protein-energy malnutrition Congestive heart failure Non-ST elevation NM (NSTEMI) Discitis, unspecified, lumbar region MRSA bacteremia Small bowel obstruction Pain of both breasts DM II (diabetes mellitus, type II), controlled Chronic nausea GUILLAUME (generalized anxiety disorder) Colonic diverticular abscess Necrotizing fasciitis Coronary disease Osteoarthritis Gout Scleroderma Pericarditis Migraine Hypertension GERD (gastroesophageal reflux disease) Surgical History History of delivery History of neck surgery History of cholecystectomy H/O hernia repair H/O colectomy S/P dilatation of esophageal stricture S/P ANH-BSO Family History Mother Congestive heart failure (CHF) Social History Smoking and tobacco/nicotine status: never used tobacco/nicotine Alcohol intake: never Substance/Drug Use: never Lives independently: No Household members: spouse Marital status: Physical Exam 2 Const: GENERAL APPEARANCE: cooperative, ill appearing (Mildly) and frail appearing (Mildly) ORIENTATION/CONSCIOUSNESS: Yes awake HENMT: COMMON NORMALS: normocephalic, atraumatic and Normal external nose present HEAD & SCALP: normocephalic and atraumatic FACE & SINUS: normal facial exam and face symmetric NOSE: Normal external nose present Eye: COMMON NORMALS: Equal, round and reactive pupils present and EOMs intact bilaterally PUPIL: Yes Equal, round and reactive pupils present Neck/C-Spine: GENERAL: Yes trachea midline Chest: CHEST: Yes Symmetrical chest wall rise Resp: COMMON NORMALS: normal respiratory effort, No retractions, No use of accessory muscles and clear to auscultation bilaterally AUSCULTATION: clear to auscultation bilaterally Cardio: COMMON NORMALS: regular rate and regular rhythm RATE: regular rate RHYTHM: regular rhythm GI: COMMON NORMALS: Soft to palpation INSPECTION: No abdominal distension AUSCULTATION: Yes Hypoactive bowel sounds present PALPATION: Yes Soft to palpation, Yes Tenderness to palpation present (GI) (Generalized) and Yes Guarding due to palpation present (GI) Extremity: COMMON NORMALS: no pedal edema Neuro: TRAMAINE COMA SCALE: document GCS findings [place] coma scale eye opening: Spontaneous [place] coma scale verbal response: Orientated [place] coma scale motor response: Obey commands [place] coma scale total score: 15 S ENSORY EXAM: Yes extremities (intact) Psych: COMMON NORMALS: speech normal SPEECH: Yes normal speech Skin: COMMON NORMALS: no rashes or lesions noted GENERAL SKIN EXAM: no rashes or lesions noted Course 2 Vital Signs: Vital signs: Vital Signs Temperature 97.5 F L 10/05/23 15:43 Pulse Rate 71 10/05/23 15:43 Respiratory Rate 18 10/05/23 15:43 Blood Pressure 162/70 10/05/23 15:43 Pulse Oximetry 94 10/05/23 15:43 Oxygen Delivery Me thod Room Air 10/05/23 12:06 MDM - Abdominal Pain Medical Decision Making 78-year-old female with a history of frequent small bowel obstructions. She presents with generalized abdominal pain nausea and retching. Her hemoglobin is 17. White blood cell count is 5. BMP is not remarkable. CT shows diffuse fluid and distended loops of large and small bowel as well as dilatation of the stomach. There is collapse of bowel adjacent to anastomotic cyst suture chain in the right lower quadrant which could indicate a transition point. NG tube been placed in the ER. Hospitalist has been alerted, and will see the patient. Surgery will be consulted. Lab Data 10/05/23 02:48 10/05/23 02:48 Labs/Radiology: Radiology Impressions Abdomen/Pelvis CT 10/05/23 02:23 IMPRESSION: 1. Diffuse fluid and distended loops of large and small bowel, as well as, dilation of the stomach. Collapsed loop of bowel in the right lower quadrant adjacent the anastomotic suture chain, which may suggest transition point. Recommend surgical consultation. 2. Right lower lobe findings suggestive of infection/aspiration. Correlate clinically. 3. Additional stable findings as above. ADDENDUM: 10/05/23 0431 ADDENDUM: The above findings and impression were discussed with Dr. Gareth Messina on 10/05/2023 at 4:29 a.m. Chest X-Ray 10/05/23 09:49 IMPRESSION: The tip of the nasogastric tube is seen within the mid chest, possibly within the trachea. Recommend removal and replacement of the tube. Laboratory Results WBC 5.24 10^3/uL (3.29-11.43) 10/05/23 02:48 RBC 5.74 10^6/uL (3.85-5.65) H 10/05/23 02:48 Hgb 17.30 g/dL (11.27-16.99) H 10/05/23 02:48 Hct 51.6 % (36-47) H 10/05/23 02:48 MCV 89.9 fl (85-98) 10/05/23 02:48 MCH 30.1 pg (27-33) 10/05/23 02:48 MCHC 33.5 g/dL (30-55) 10/05/23 02:48 RDW 12.7 % (12.1-15.1) 10/05/23 02:48 Plt Count 188 10^3/cmm (157-399) 10/05/23 02:48 MPV 11.0 fL (7.4-10.4) H 10/05/23 02:48 Neut % (Auto) 39.8 % 10/05/23 02:48 Lymph % (Auto) 46.6 % 10/05/23 02:48 [place] % (Auto) 8.4 % 10/05/23 02:48 Eos % (Auto) 4.4 % 10/05/23 02:48 Baso % (Auto) 0.6 % 10/05/23 02:48 Neut # (Auto) 2.09 10^3/uL (1.8-7.7) 10/05/23 02:48 Lymph # (Auto) 2.4 10^3/uL (0.8-4.8) 10/05/23 02:48 [place] # (Auto) 0.4 10^3/uL (0.2-0.9) 10/05/23 02:48 Eos # (Auto) 0.2 10^3/uL (0.0-0.8) 10/05/23 02:48 Baso # (Auto) 0.0 10^3/uL (0.0-0.1) 10/05/23 02:48 Nucleated RBC % (auto) 0 % 10/05/23 02:48 Nucleated RBCs # 0.0 /100WBC 10/05/23 02:48 Sodium 142 mmol/L (136-145) 10/05/23 02:48 Potassium 4.0 mmol/L (3.5-5.1) 10/05/23 02:48 Chloride 102 mmol/L (98-107) 10/05/23 02:48 Carbon Dioxide 24 mmol/L (22-29) 10/05/23 02:48 Anion Gap 20.0 (5-19) H 10/05/23 02:48 BUN 12 mg/dL (8-23) 10/05/23 02:48 Creatinine 0.7 mg/dL (0.5-0.9) 10/05/23 02:48 GFR Calculation Not Reportable 10/05/23 02:48 Glucose 116 mg/dL (65-115) H 10/05/23 02:48 Calculated Osmolality 295 mOsm/kg (285-295) 10/05/23 02:48 Lactic Acid 1.7 mmol/L (0.5-2.2) 10/05/23 02:48 Calcium 9.7 mg/dL (8.5-10.5) 10/05/23 02:48 Total Bilirubin 0.5 mg/dL (0.15-1.2) 10/05/23 02:48 AST 40 U/L (0-32) H 10/05/23 02:48 ALT 34 U/L (0-33) H 10/05/23 02:48 Alkaline Phosphatase 148 U/L (35-105) H 10/05/23 02:48 C-Reactive Protein 5.6 mg/L (0.0-4.9) H 10/05/23 02:48 Total Protein 7.8 g/dL (6.6-8.7) 10/05/23 02:48 Albumin 4.3 g/dL (3.5-5.2) 10/05/23 02:48 Globulin 3.5 g/dL (1.3-4.6) 10/05/23 02:48 Lipase 64 U/L (13-60) H 10/05/23 02:48 Urine Color Yellow (Yellow) 10/05/23 02:25 Urine Appearance Cloudy (CLEAR) A 10/05/23 02:25 Urine pH 9 (5-7) H 10/05/23 02:25 Ur Specific [place] 1.015 (1.005-1.030) 10/05/23 02:25 Urine Protein Neg (Negative) 10/05/23 02:25 Urine Glucose (UA) Norm (Normal) 10/05/23 02:25 Urine Ketones Negative (Negative) 10/05/23 02:25 Urine Blood 3+ (Negative) H 10/05/23 02:25 Urine Nitrate Negative (Negative) 10/05/23 02:25 Urine Bilirubin Neg (Negative) 10/05/23 02:25 Urine Urobilinogen Neg mg/dL (Negative) 10/05/23 02:25 Ur Leukocyte Esterase Negative (Negative) 10/05/23 02:25 Urine RBC 5-10 /hpf (0-2) H 10/05/23 02:25 Urine WBC 0-4 /hpf (0-5) H 10/05/23 02:25 Ur Squamous Epith Cells 5-10 /hpf (0-5) H 10/05/23 02:25 Amorphous Sediment Not Reportable 10/05/23 02:25 Urine Bacteria 1+ /hpf (NONE) H 10/05/23 02:25 All radiology interpretation(s) finalized by discharge Discharge Plan Discharge Patient Disposition: Admitted As Inpatient Admit Provider: Armando Downey Clinical Impression: Nausea and vomiting, Bowel obstruction Condition: Stable Coding Level of Care Code ED [place] Attendant for Tad Sanderson
[2023-10-05 03:14] LABS: Alanine Aminotransferase 34 U/L (0-33); Albumin Level 4.3 g/dL (3.5-5.2); Alkaline Phosphatase 148 U/L (35-105); Aspartate Amino Transferase 40 U/L (0-32); Blood Urea Nitrogen 12 mg/dL (8-23); C Reactive Protein 5.6 mg/L (0.0-4.9); Calcium 9.7 mg/dL (8.5-10.5); Carbon Dioxide 24 mmol/L (22-29); Chloride 102 mmol/L (98-107); Creatinine Clr Calc Pharmacy 48.9528; Globulin 3.5 g/dL (1.3-4.6); Glucose 116 mg/dL (65-115); Lipase 64 U/L (13-60); Osmolality Calculated 295 mOsm/kg (285-295); Sodium 142 mmol/L (136-145); Total Bilirubin 0.5 mg/dL (0.15-1.2); Total Protein 7.8 g/dL (6.6-8.7)
[2023-10-05] MEDS: iohexol 350 mg/mL 500 mL Btl (per mL) IV (03:14)
[2023-10-05] MEDS: cetacaine Spray 20 gm Can 1 SPRAY TOPICAL (04:59)
--- NOTE | 2023-10-05 05:02 | P.HP_ITS ---
Providers/Chief Complaint 2 Primary Care Provider: Antwan Bernal DO Chief Complaint: Possible Bowell Blockage History of Present Illness Anju Duffy is a 78 year old female who gets recurrent incomplete SBO presented with chief complaint of not feeling well. Patient is stating that for last 4 days she has been feeling under the weather with generalized weakness and fatigue normally she is up on her feet and walk every day but because of her weakness and lethargy she was not able to do so. This was unusual for her. She has been feeling nauseous today around 1 AM she started experiencing abdominal pain that prompted her visit to the ER in the ER she has been diagnosed with SBO. NG tube has been placed. She is hemodynamically stable. No active complaints This concern for right lower lobe pneumonia as well there is no fever or leukocytosis. She is dehydrated. Patient is stating that she was suffering with runny nose and eyes for the last few days she attributed her symptoms to flu. Review of Systems 2 Eyes: Denies: change in vision ENMT: Denies: throat pain Card: Denies: chest pain Resp: Denies: dyspnea GI: Reports: abdominal pain and nausea : Denies: flank pain Musc: Denies: neck pain Medications/Allergies Home Medications Medication Instructions Recorded Confirmed Last Taken Type buspirone 5 mg tablet 5 mg PO TID PRN Anxiety 11/10/21 09/30/23 11/09/21 History magnesium hydroxide 400 mg/5 mL 1,200 mg (15 mL) PO QID PRN 11/11/21 09/30/23 11/11/21 Rx oral suspension (Milk of Magnesia) constipation #355 mL carvedilol 6.25 mg tablet 6.25 mg PO BEDTIME 07/16/22 09/30/23 12/24/22 History carvedilol 25 mg tablet 12.5 mg PO QAM 02/04/23 09/30/23 Unknown History polyethylene glycol 3350 17 17 g PO QAM 02/04/23 09/30/23 Unknown History gram/dose oral powder (Miralax) amlodipine 2.5 mg tablet 2.5 mg PO DAILY 03/23/23 09/30/23 Unknown History apixaban 5 mg tablet (Eliquis) 5 mg PO BID #180 tabs 04/02/23 09/30/23 Unknown Rx morphine 30 mg immediate release 30 mg PO Q8H PRN pain 30 days #30 04/02/23 09/30/23 Unknown Rx tablet tabs ondansetron HCl 8 mg tablet 8 mg PO TID PRN Nausea And 04/10/23 09/30/23 Unknown Rx Vomiting #90 tabs sumatriptan succinate 100 mg tablet 100 mg PO Q2H PRN Migraine 06/24/23 09/30/23 Unknown Rx Headache #60 tabs naproxen 500 mg tablet 500 mg PO BID 07/17/23 09/30/23 Unknown History cyclobenzaprine 10 mg tablet 10 mg PO Q8H #20 tabs 08/02/23 09/30/23 Unknown Rx hydrocodone 5 mg-acetaminophen 325 1 tab PO Q6H PRN pain #20 tabs 08/02/23 09/30/23 Unknown Rx mg tablet ondansetron 8 mg disintegrating 8 mg PO .q6 PRN nausea and 08/02/23 09/30/23 Unknown Rx tablet vomiting #14 tabs Allergies Allergy/AdvReac Type Severity Reaction Status Date / Time azithromycin Allergy ALGY-Anaphy Verified 08/21/23 08:08 laxis Latex, Natural Rubber Allergy ALGY-Rash Verified 08/21/23 08:08 olanzapine [From Zyprexa] Allergy hallucinati Verified 08/21/23 08:08 ons/agitate d lorazepam [From Ativan] AdvReac hallucination, Verified 08/21/23 08:08 agitated PFSH Acute 2 PFSH: Medical History Hx SBO Lumbar stenosis with neurogenic claudication Atrial fibrillation Low back pain at multiple sites Myopericarditis Protein-energy malnutrition Congestive heart failure Non-ST elevation [place] (NSTEMI) Discitis, unspecified, lumbar region MRSA bacteremia Small bowel obstruction Pain of both breasts DM II (diabetes mellitus, type II), controlled Chronic nausea GUILLAUME (generalized anxiety disorder) Colonic diverticular abscess Necrotizing fasciitis Coronary disease Osteoarthritis Gout Scleroderma Pericarditis Migraine Hypertension GERD (gastroesophageal reflux disease) Surgical History History of delivery History of neck surgery History of cholecystectomy H/O hernia repair H/O colectomy S/P dilatation of esophageal stricture S/P ANH-BSO Family History Mother Congestive heart failure (CHF) Social History Smoking and tobacco/nicotine status: never used tobacco/nicotine Alcohol intake: never Substance/Drug Use: never Lives independently: No Household members: spouse Marital status: Vitals/I&O/Wt Last Vital Signs Temp 98 F 10/05/23 02:29 Pulse 78 10/05/23 04:41 Resp 18 10/05/23 04:41 BP 174/81 10/05/23 04:41 Pulse Ox 98 10/05/23 04:41 O2 Del Method Room Air 10/05/23 04:41 10/04/23 10/04/23 10/05/23 14:59 22:59 06:59 Intake Total 1000 / 1000 Balance 1000 / 1000 Weight last 48 hrs Weight 54.431 kg Physical Exam 2 Narrative: Pleasant cooperative GCS 15 Dehydrated Bowel sound present NG tube in place Hemodynamic stable at the bedside Nonfocal neuroexam S1, S2 Data 10/05/23 02:48 10/05/23 02:48 A&P Assessment and plan (1) Atrial fibrillation: Qualifiers: Atrial fibrillation type: longstanding persistent Qualified Code(s): I 48.11 - Longstanding persistent atrial fibrillation (2) Nausea and vomiting: Qualifiers: Vomiting type: unspecified Qualified Code(s): R11.2 - Nausea with vomiting, unspecified (3) Bowel obstruction: Qualifiers: Intestinal obstruction type: fecal impaction Qualified Code(s): K56.41 - Fecal impaction (4) Chronic constipation: (5) Memory deficits: Plan SBO Conservative management Place NG tube N.p.o. Start IV fluids Patient clinically is dehydrated Right lower lobe pneumonia Start Zosyn Patient experiencing flu related symptoms which is unusual in this weather No fever or leukocytosis Her antibiotics could be de-escalated if she remains afebrile for next 24 to 48 hours History of CHF no acute exacerbation Continue IV fluid N.p.o. Full code DVT prophylaxis added Dr. Carbone consulted Attestations 2 Medical Necessity Statement*: More than 2 midnights anticipated Diagnoses Longstanding persistent atrial fibrillation I48.11 Atrial fibrillation type: longstanding persistent Nausea and vomiting, unspecified vomiting type R11.2 Vomiting type: unspecified Fecal impaction K56.41 Intestinal obstruction type: fecal impaction Chronic constipation K59.09 Memory deficits R41.3
--- NOTE | 2023-10-05 05:06 | XRR_ITS ---
PROCEDURE INFORMATION: Exam: XR Chest Exam date and time: 10/05/2023 5:08 AM Age: 78 years old Clinical indication: Device placement; Ng tube; Prior surgery; Surgery date: 6+ months; Surgery type: Gb; Patient HX: Check S/P ng placement TECHNIQUE: Imaging protocol: Radiologic exam of the chest. Views: 1 view. COMPARISON: CR XR chest 1V portable [id number] 03/23/2023 7:01 AM FINDINGS: Tubes, catheters and devices: Enteric tube traverses midline, catheter tip subdiaphragmatic within the left upper quadrant, side fenestration at the level of the gastroesophageal junction. Lungs: No acute finding. Pleural spaces: No acute finding. Heart/Mediastinum: No acute finding. Bones/joints: No acute finding. XR/XR chest 1V portable [id number] IMPRESSION: 1. Recommend advancement of the enteric tube as the side fenestration is at the level of the gastroesophageal junction. 2. No acute cardiopulmonary findings.
[2023-10-05] MEDS: dextrose 5%-sod chloride 0.9% 1,000 ML 75 ML IV ×2 (05:37→20:03)
[2023-10-05] MEDS: piperacillin-tazobactam 3.375 GM in sodium chloride 0.9% (plus) 50 ML IV ×3 (06:38→21:47)
[2023-10-05] MEDS: morphine 4 mg/mL SDV 1 mL 2 MG IVP ×2 (09:39→17:43)
--- NOTE | 2023-10-05 09:49 | XRR_ITS ---
PROCEDURE INFORMATION: Exam: XR Chest Exam date and time: 10/05/2023 11:09 AM Age: 78 years old Clinical indication: Device placement; Ng tube; Additional info: Advanced ng tube TECHNIQUE: Imaging protocol: Radiologic exam of the chest. Views: 1 view. COMPARISON: CR (CHEST, ) 10/05/2023 5:08 AM FINDINGS: Tubes, catheters and devices: There is a nasogastric tube with the distal tip terminating in the mid chest, possibly within the trachea. Recommend removal and replacement. Lungs: Unremarkable. No consolidation. Pleural spaces: Unremarkable. No pleural effusion. No pneumothorax. Heart/Mediastinum: Unremarkable. No cardiomegaly. Bones/joints: Unremarkable. XR/XR chest 1V portable [id number] IMPRESSION: The tip of the nasogastric tube is seen within the mid chest, possibly within the trachea. Recommend removal and replacement of the tube.
--- NOTE | 2023-10-05 09:51 | PC.NURSE ---
Addendum entered by Shonda Mckoy RN 10/05/23 13:13: Advanced tub per Dr. Carbone's request 4 more inches. Original Note: advanced NG tube as first chest x-ray stated to. Advanced tube 4 inches.
--- NOTE | 2023-10-05 10:19 | P.CONIM_ITS ---
Providers/Reason For Consult 2 Consulting Physician/Specialty*: Dr. Jose Juan Carbone, /General surgery Reason for Consult*: Small bowel obstruction Attending Physician: Anna Emerson MD Primary Care Provider: Antwan Bernal DO History of Present Illness History of Present Illness Anju Duffy is a 78 year old female, with history of recurrent bowel obstructions, right hemicolectomy, hernia repair, ANH/BSO and pancreatitis, who presented to the hospital with a 1 day history of abdominal pain nausea and vomiting. HPI and review of systems are limited secondary to patient's short- term memory loss. She reports that she is still passing flatus and having bowel movements. Her abdominal pain is diffuse and does not radiate. Palpation makes pain worse. Nothing makes pain better. CT of the abdomen pelvis shows a small bowel obstruction at the ileocolic anastomosis with stool throughout the colon Review of Systems 2 General: Reports: 10 or more systems reviewed and unremarkable except in HPI and below Medications/Allergies Home Medications Medication Instructions Recorded Confirmed Last Taken Type buspirone 5 mg tablet 5 mg PO TID PRN Anxiety 11/10/21 10/05/23 10/05/23 History magnesium hydroxide 400 mg/5 mL 1,200 mg (15 mL) PO QID PRN 11/11/21 09/30/23 11/11/21 Rx oral suspension (Milk of Magnesia) constipation #355 mL carvedilol 6.25 mg tablet (Coreg) 6.25 mg PO BEDTIME 07/16/22 10/05/23 10/05/23 History carvedilol 25 mg tablet 12.5 mg PO QAM 02/04/23 10/05/23 10/05/23 History polyethylene glycol 3350 17 17 g PO QAM 02/04/23 09/30/23 Unknown History gram/dose oral powder (Miralax) amlodipine 2.5 mg tablet (Norvasc) 2.5 mg PO DAILY 03/23/23 10/05/23 10/04/23 History apixaban 5 mg tablet (Eliquis) 5 mg PO BID #180 tabs 04/02/23 10/05/23 10/05/23 Rx morphine 30 mg immediate release 30 mg PO Q8H PRN pain 30 days #30 04/02/23 09/30/23 Unknown Rx tablet tabs ondansetron HCl 8 mg tablet 8 mg PO TID PRN Nausea And 04/10/23 09/30/23 Unknown Rx Vomiting #90 tabs sumatriptan succinate 100 mg tablet 100 mg PO Q2H PRN Migraine 06/24/23 09/30/23 Unknown Rx Headache #60 tabs naproxen 500 mg tablet 500 mg PO BID 07/17/23 09/30/23 Unknown History cyclobenzaprine 10 mg tablet 10 mg PO Q8H #20 tabs 08/02/23 09/30/23 Unknown Rx hydrocodone 5 mg-acetaminophen 325 1 tab PO Q6H PRN pain #20 tabs 08/02/23 09/30/23 Unknown Rx mg tablet ondansetron 8 mg disintegrating 8 mg PO .q6 PRN nausea and 08/02/23 09/30/23 Unknown Rx tablet vomiting #14 tabs Allergies Allergy/AdvReac Type Severity Reaction Status Date / Time azithromycin Allergy ALGY-Anaphy Verified 08/21/23 08:08 laxis Latex, Natural Rubber Allergy ALGY-Rash Verified 08/21/23 08:08 olanzapine [From Zyprexa] Allergy hallucinati Verified 08/21/23 08:08 ons/agitate d lorazepam [From Ativan] AdvReac hallucination, Verified 08/21/23 08:08 agitated Current Medications Generic Name Dose Route Start Last Admin Trade Name Freq PRN Reason Stop Dose Admin Dextrose/Sodium Chloride 1,000 mls @ 75 mls/hr 10/05/23 05:15 10/05/23 05:37 Dextrose 5%-Sod Chloride 0.9% IV 75 mls/hr .[id number] ROCIO Administration Piperacillin Sod/Tazobactam 50 mls @ 12.5 mls/hr 10/05/23 06:00 10/05/23 06:38 Sod 3.375 gm/ Sodium Chloride IV 12.5 mls/hr Q8H ROCIO Administration Morphine Sulfate 2 mg 10/05/23 06:14 10/05/23 09:39 Morphine 4 Mg/Ml Sdv 1 Ml IVP 2 mg Q4H PRN Administration SEVERE PAIN Ondansetron HCl 4 mg 10/05/23 05:02 10/05/23 09:37 Ondansetron 2 Mg/Ml Sdv 2 Ml IVP 4 mg Q6H PRN Administration NAUSEA AND VOMITING PFSH Acute 2 PFSH: Medical History Hx SBO Lumbar stenosis with neurogenic claudication Atrial fibrillation Low back pain at multiple sites Myopericarditis Protein-energy malnutrition Congestive heart failure Non-ST elevation [place] (NSTEMI) Discitis, unspecified, lumbar region MRSA bacteremia Small bowel obstruction Pain of both breasts DM II (diabetes mellitus, type II), controlled Chronic nausea GUILLAUME (generalized anxiety disorder) Colonic diverticular abscess Necrotizing fasciitis Coronary disease Osteoarthritis Gout Scleroderma Pericarditis Migraine Hypertension GERD (gastroesophageal reflux disease) Surgical History History of delivery History of neck surgery History of cholecystectomy H/O hernia repair H/O colectomy S/P dilatation of esophageal stricture S/P ANH-BSO Family History Mother Congestive heart failure (CHF) Social History Smoking and tobacco/nicotine status: never used tobacco/nicotine Alcohol intake: never Substance/Drug Use: never Lives independently: No Household members: spouse Marital status: Vitals/I&O/Wt Last Vital Signs Temp 97.6 F 10/05/23 08:52 Pulse 80 10/05/23 10:08 Resp 18 10/05/23 10:00 BP 147/75 10/05/23 08:52 Pulse Ox 96 10/05/23 10:00 O2 Del Method Room Air 10/05/23 10:00 10/04/23 10/05/23 10/05/23 22:59 06:59 14:59 Intake Total 1000 / 1000 Balance 1000 / 1000 Weight last 48 hrs Weight 142 lb 9.6 oz Weight 120 lb Physical Exam 2 Narrative: General : Patient is well developed , no acute distress, oriented x3 Head : Normal cephalic, a-traumatic. Ears : Pinnae and external canal are normal. Hearing is normal. Eyes : PERRLA, Sclera and injection are normal. No conjunctival discharge. Nose : Mucous membranes are without erythema. Throat : buccal mucosa is normal, gums are without significant recession or hypertrophy. Lungs : Equal chest rise bilaterally, no use of accessory muscles, trachea is midline. Cor : Rate and rhythm are normal. Abdomen : Soft, mild distention, diffusely tender, no g/r/m Extremities : No edema, no cyanosis or clubbing, dorsalis pedis pulses are present bilaterally, non-tender to palpation of calves. Upper extremities are normal bilaterally. Back : non-tender to palpation, no CVA tenderness. Neuro : CN II - XII intact, Upper and lower extremities have equal and full strength Data 10/05/23 02:48 10/05/23 02:48 A&P Assessment and plan (1) Partial small bowel obstruction: (2) Aspiration pneumonitis: (3) Chronic constipation: Plan N.p.o./NG tube to LIWS. NG tube will be advanced by RN another 4 inches IV fluids-gently in the setting of CHF Aggressive electrolyte replacement Fleets enema If she does not recover from the small bowel obstruction in the next few days we will have to consider diagnostic laparoscopy versus exploratory laparotomy Medical management per hospitalist Coding Level of Care Code 78389 Diagnoses Partial small bowel obstruction K56.600 Aspiration pneumonitis J69.0 Chronic constipation K59.09
--- NOTE | 2023-10-05 12:35 | ECG_ITS ---
[facility] Test Date: 2023-10-05 Pat Name: Anju Duffy Department: Room: 262 Gender: Female Training And Development Coordinator: : 1945 Requested By: Anna Emerson Order Number: [id number] Lindsay MD: Edilson Bauer M.D. Measurements Intervals [place] Rate: 84 P: 53 VT: 166 QRS: 52 QRSD: 84 T: 60 QT: 360 QTc: 427 Interpretive Statements SINUS RHYTHM Compared to ECG 06/25/2022 23:15:14 No significant changes Electronically Signed On 10-05-2023 17:03:22 CDT by Edilson Bauer M.D. [email or web address]
--- NOTE | 2023-10-05 13:00 | PC.NURSE ---
Patient's is at the desk stating that patient wants to leave and that we need to get a handle on it. Patient's stated that she thinks no one has been in the room. states that she need something for anxiety. Radiology says that the tube in the Trachea so it was removed. Dr. Emerson in the room speaking with patient and . Patient is refusing to have the NG tube replaced at this time. Patient is refusing the enema at this time as well.
[2023-10-05] MEDS: Fleet Enema 133 mL Enema PR (15:23)
--- NOTE | 2023-10-05 15:29 | PC.NURSE ---
Patient willing to allow the fleets enema at this time. Patient only able to hold it for 5 to 6 minutes. Only a small amount of stool passed. Patient states that she still feels nauseated.
--- NOTE | 2023-10-05 17:16 | PM.MISC ---
Miscellaneous Note Purpose of Documentation: Overnight labs and H&P reviewed. CT of the abdomen shows right lower lobe pneumonia, possible aspiration, per personal review very small area of patchy infiltration, no significant consolidation. Chest x-ray without gross infiltrates. Patient had nasogastric tube, per radiology read this morning, it appeared to be in the mid chest possibly the trachea. Patient did not have any respiratory distress therefore less likely to be tracheal NG placement, however for patient's safety, this tube was removed and a new 1 is being attempted to be placed. Patient is very tearful, anxious. She has been undergoing outpatient workup with Dr. Chan for her short-term memory loss. It is not clear to me if she has a formal diagnosis of dementia. She had a pituitary MRI in July which showed a pituitary microadenoma 6 x 4 x 4 mm with slight encroachment on the infundibulum. Mild atrophy and mild small vessel ischemic disease noted. Psychiatry assessment ordered for capacity assessment as patient wanting to leave AMA intermittently.Her states that she has had significant short-term memory issues. She states he she has had a cognitive decline and has been failing to perform simple tasks even after instructions at home. Reportedly patient does not do well with benzodiazepines, it makes her more agitated.. Previously when she had received Ativan she started to be hallucinated and was wandering aimlessly within the hospital corridors. On one of her admissions she was wandering the halls, walking into other patient's room, leaving her clothes and there closets etc. This was believed to be a reaction of benzodiazepines. Will use Haldol currently if needed for agitation. This documentation was created by [employer] coconut candy maker software. Every effort was made to ensure accuracy of coconut candy maker. Any obvious errors or omissions should be clarified with the author of the document.
--- NOTE | 2023-10-05 17:46 | XRR_ITS ---
PROCEDURE INFORMATION: Exam: XR Chest Exam date and time: 10/05/2023 6:02 PM Age: 78 years old Clinical indication: Device placement; Patient HX: Ng tube placement; Additional info: Ng placement TECHNIQUE: Imaging protocol: Radiologic exam of the chest. Views: 1 view. COMPARISON: CR (CHEST, ) 10/05/2023 11:09 AM FINDINGS: Tubes, catheters and devices: NG tube tip overlies the stomach. Lungs: Unremarkable. No consolidation. Pleural spaces: Unremarkable. No pleural effusion. No pneumothorax. Heart/Mediastinum: Unremarkable. No cardiomegaly. Bones/joints: Unremarkable. XR/XR chest 1V portable [id number] IMPRESSION: NG tube tip overlies the stomach.
[2023-10-05 23:52] LABS: Adenovirus Not Detected (NOT DETECT); Chlamydia Pneumoniae Not Detected (NOT DETECT); Coronavirus 229E,HKU1,NL63,OC4 Not Detected (NOT DETECT); Human Metapneumovirus Not Detected (NOT DETECT); Human Rhinovirus/Enterovirus Not Detected (NOT DETECT); Influenza A Not Detected (NOT DETECT); Influenza A H1 Not Detected (NOT DETECT); Influenza A H1-2009 Not Detected (NOT DETECT); Influenza A H3 Not Detected (NOT DETECT); Influenza B Not Detected (NOT DETECT); Mycoplasma Pneumoniae Not Detected (NOT DETECT); Parainfluenza Virus Type 1 Not Detected (NOT DETECT); Parainfluenza Virus Type 2 Not Detected (NOT DETECT); Parainfluenza Virus Type 3 Not Detected (NOT DETECT); Parainfluenza Virus Type 4 Not Detected (NOT DETECT); Respiratory Syncytial Virus A Not Detected (NOT DETECT); Respiratory Syncytial Virus B Not Detected (NOT DETECT); SARS-COV-2 Not Detected (NOT DETECT)
[2023-10-06] VITALS (7 sets, daily range): BP systolic 126–179; BP diastolic 67–93; PULSE 62–78; RESP 16–19; TEMP 36.4–36.8; O2SAT 92–94
--- NOTE | 2023-10-06 02:53 | XRR_ITS ---
PROCEDURE INFORMATION: Exam: XR Chest Exam date and time: 10/06/2023 3:01 AM Age: 78 years old Clinical indication: Prior surgery; Surgery date: 6+ months; Surgery type: Gb; Patient HX: New onset of bleeding from ng tube. TECHNIQUE: Imaging protocol: Radiologic exam of the chest. Views: 1 view. COMPARISON: CR (CHEST, ) 10/05/2023 6:02 PM FINDINGS: Tubes, catheters and devices: Enteric tube is unchanged in position side port terminating at the GE junction. Lungs: No consolidation. Pleural spaces: No sizable pleural effusion or pneumothorax. Heart/Mediastinum: No cardiomegaly. Bones/joints: Unremarkable. XR/XR chest 1V portable [id number] IMPRESSION: Enteric tube is unchanged in position with tip overlying the stomach but side port terminating at the GE junction. Consider advancement.
--- NOTE | 2023-10-06 03:29 | PC.NURSE ---
At 0200 scant amount of bright red blood was noiced in patients NG tube, notified charge nurse of condition and continued to monitored. At 0300, darker red blood was noticed in the NG and hospitalist Dr. Bernal was contacted and notified of the situation. Telephone order for a CBC and a chest xray to verify placement. Patient attempted to get up to use the restroom and pulled on the ng tube. NG was advanced back to the designated marker and xray arrived for a chest xray. Placement was good and and secured to the patient. Intermittent suction was continued with no complications at this moment in time.
[2023-10-06 03:58] LABS: Basophils % 0.1 %; Eosinophils # 0.1 10^3/uL (0.0-0.8); Eosinophils % 0.9 %; Hematocrit 48.2 % (36-47); Lymphocytes # 1.4 10^3/uL (0.8-4.8); Lymphocytes % 20.6 %; Mean Corpuscular HGB Conc 33.2 g/dL (30-55); Mean Corpuscular Hemoglobin 29.7 pg (27-33); Mean Corpuscular Volume 89.4 fl (85-98); Mean Platelet Volume 11.5 fL (7.4-10.4); Monocytes # 0.6 10^3/uL (0.2-0.9); Monocytes % 8.8 %; Neutrophils # 4.63 10^3/uL (1.8-7.7); Neutrophils % 69.3 %; Nucleated Red Blood Cells % 0 %; Platelet Count 171 10^3/cmm (157-399); Red Blood Count 5.39 10^6/uL (3.85-5.65); Red Cell Distribution Width 12.5 % (12.1-15.1); White Blood Count 6.69 10^3/uL (3.29-11.43)
[2023-10-06 04:21] LABS: Anion Gap 16.3 (5-19); Blood Urea Nitrogen 5 mg/dL (8-23); Calcium 8.8 mg/dL (8.5-10.5); Carbon Dioxide 25 mmol/L (22-29); Chloride 102 mmol/L (98-107); Creatinine Clr Calc Pharmacy 52.8254; Glucose 186 mg/dL (65-115); Magnesium 1.8 mg/dL (1.7-2.3); Osmolality Calculated 292 mOsm/kg (285-295); Potassium 3.3 mmol/L (3.5-5.1); Sodium 140 mmol/L (136-145)
[2023-10-06] MEDS: acetaminophen 500 mg Tablet PO ×2 (05:28→22:16)
[2023-10-06] MEDS: piperacillin-tazobactam 3.375 GM in sodium chloride 0.9% (plus) 50 ML IV ×3 (05:30→22:11)
[2023-10-06] MEDS: dextrose 5%-sod chloride 0.9% 1,000 ML 75 ML IV ×2 (08:42→22:11)
[2023-10-06] MEDS: morphine 4 mg/mL SDV 1 mL 2 MG IVP ×3 (10:48→20:09)
[2023-10-06] MEDS: hyDRALAzine 20 mg/mL INJ 1 mL 10 MG IVP (14:14)
--- NOTE | 2023-10-06 14:41 | XRR_ITS ---
PROCEDURE INFORMATION: Exam: XR Chest Exam date and time: 10/06/2023 3:13 PM Age: 78 years old Clinical indication: Patient HX: Bloody output from ng; Abdominal pain/distention; HX sbo; HX colon surg/resecftion x several, cholecystectomy TECHNIQUE: Imaging protocol: Radiologic exam of the chest. Views: 1 view. COMPARISON: CR (CHEST, ) 10/06/2023 3:01 AM FINDINGS: Tubes, catheters and devices: Distal G-tube is positioned in the left upper quadrant abdomen in the expected location of the stomach fundus. Lungs: Unremarkable. No consolidation. Pleural spaces: Unremarkable. No pleural effusion. No pneumothorax. Heart/Mediastinum: Unremarkable. No cardiomegaly. Vasculature: There is calcified plaque in the aortic knob. Bones/joints: There are degenerative changes in the thoracic spine and across the acromioclavicular joints. PROCEDURE INFORMATION: Exam: XR Abdomen Exam date and time: 10/06/2023 3:13 PM Age: 78 years old Clinical indication: Patient HX: Bloody output from ng; Abdominal pain/distention; HX sbo; HX colon surg/resecftion x several, cholecystectomy TECHNIQUE: Imaging protocol: Radiologic exam of the abdomen. Views: 2 Views. Upright and supine views. COMPARISON: CT abdomen pelvis w con* [id number] 10/05/2023 3:10 AM FINDINGS: Tubes, catheters and devices: Distal G-tube is positioned in the left upper quadrant abdomen in the expected location of the stomach fundus. Gastrointestinal tract: Normal. No bowel dilation. Intraperitoneal space: Normal. No free air. Organs: Clips are present in the right upper quadrant consistent with prior cholecystectomy. Vasculature: There is calcified plaque in the aortic knob. Bones/joints: Unremarkable for age. Other findings: There are surgical coils overlying the abdomen and pelvis. XR/XR acute abdomen series [id number] IMPRESSION: No evidence for acute cardiopulmonary disease IMPRESSION: No acute findings.Non acute findings as described above.
[2023-10-06 15:51] LABS: Hematocrit 53.5 % (36-47)
[2023-10-06] MEDS: pantoprazole 40 mg SDV IVP (15:58)
--- NOTE | 2023-10-06 17:06 | P.PN_ITS ---
Subjective 2 Subjective: Patient seen and examined. Acute abdominal series today showed no further small bowel obstruction, however patient is reporting severe lower abdominal pain. She denies any BM or flatus Vitals/I&O/Wt Last Vital Signs Temp 98.1 F 10/06/23 11:43 Pulse 70 10/06/23 11:43 Resp 17 10/06/23 11:43 BP 179/93 10/06/23 11:43 Pulse Ox 93 10/06/23 11:43 O2 Del Method Room Air 10/06/23 08:05 10/06/23 10/06/23 10/06/23 06:59 14:59 22:59 Intake Total 50 / 1150 998.75 / 998.75 Output Total 400 / 850 Balance -350 / 300 998.75 / 998.75 Weight last 48 hrs Weight 142 lb 7 oz Weight 142 lb 9.6 oz Weight 120 lb Physical Exam 2 Narrative: General: No acute distress, awake alert and oriented x 3 Abdomen: Soft, mildly distended, tender to palpation right lower quadrant and suprapubically, no guarding or rebound Data 10/06/23 15:40 10/06/23 03:13 A&P Assessment and plan (1) Partial small bowel obstruction: (2) Aspiration pneumonitis: (3) Chronic constipation: (4) Hypokalemia: Plan Acute abdominal series performed today does not show any further small bowel obstruction. Due to her ongoing abdominal pain, I will get a CT N.p.o./NG tube to LIWS. NG tube will be advanced by RN another [address] abdomen pelvis with IV and oral contrast IV fluids-gently in the setting of CHF Potassium replacement Aggressive electrolyte replacement If she does not recover from the small bowel obstruction in the next few days we will have to consider diagnostic laparoscopy versus exploratory laparotomy Medical management per hospitalist Attestations 2 Medical Necessity Statement*: Per primary Coding Level of Care Code 08580 Diagnoses Partial small bowel obstruction K56.600 Aspiration pneumonitis J69.0 Chronic constipation K59.09 Hypokalemia E87.6
--- NOTE | 2023-10-06 17:06 | CTR_ITS ---
PROCEDURE INFORMATION: Exam: CT Abdomen And Pelvis With Contrast Exam date and time: 10/06/2023 8:53 PM Age: 78 years old Clinical indication: Abdominal pain; Prior surgery; Surgery date: 6+ months; Surgery type: Gb. Hernia mesh. Small bowel resection. Partial colectomy. Hysterectomy. Patient HX: Continued abd pain with ng hematic output. History of recurrent sbo. TECHNIQUE: Imaging protocol: Computed tomography of the abdomen and pelvis with contrast. Radiation optimization: All CT scans at this facility use at least one of these dose optimization techniques: automated exposure control; mA and/or kV adjustment per patient size (includes targeted exams where dose is matched to clinical indication); or iterative reconstruction. Contrast material: OMNI 350; Contrast volume: 80 ml; Contrast route: INTRAVENOUS (IV); Other contrast: Oral, OMNI 350, 25ML CONTRAST IN 450ML WATER; COMPARISON: CT abdomen pelvis w con* [id number] 10/05/2023 3:10 AM RADIATION DOSE METRICS: Total DLP (mGy-cm): 403.95 FINDINGS: Lungs: Medial right lower lobe bronchiectasis with scarring and tree-in-bud nodularity as well as bronchial wall thickening. Liver: No mass. Gallbladder and biliary ducts: Status post cholecystectomy. Decreasing small volume pneumobilia. Persistent intrahepatic and extrahepatic biliary ductal dilation. The common bile duct measures up to 1.8 cm, similar compared to prior. 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 Spleen: Small granulomas in the spleen. Adrenal glands: Normal. No mass. Kidneys and ureters: Small bilateral simple renal cysts, no follow-up needed. Stomach and bowel: Postsurgical changes status post bowel resection with anastomotic sutures in the right lower quadrant. There is persistent dilation of small bowel loops with air-fluid levels proximal to the right lower quadrant anastomotic sutures, with a loop of bowel measuring up to 5.5 cm, similar compared to prior. Fecalization of stool within proximal bowel loops indicating slow transit. Appendix: No evidence of appendicitis. Intraperitoneal space: No pneumoperitoneum. No free fluid in the pelvis. Vasculature: Severe atherosclerotic calcifications. Lymph nodes: Unremarkable. No enlarged lymph nodes. Urinary bladder: Unremarkable as visualized. Reproductive: Unremarkable as visualized. Bones/joints: Moderate multilevel spondylosis. Soft tissues: Postsurgical changes status post mesh hernia repair. CT/CT abdomen pelvis w con* [id number] IMPRESSION: 1. Unchanged dilation of small bowel loops with air-fluid levels proximal to the right lower quadrant anastomotic sutures, with a loop of bowel measuring up to 5.5 cm. Fecalization of stool within proximal bowel loops indicating slow transit. No pneumoperitoneum. 2. Status post cholecystectomy. Decreasing small volume pneumobilia. Persistent intrahepatic and extrahepatic biliary ductal dilation. 3. Medial right lower lobe bronchiectasis with scarring and tree-in-bud nodularity as well as bronchial wall thickening. COMMENTS: Consistent with the [place] [employer]'s Incidental Findings Committee white paper (J Am Patricia Radiol 2018): Any incidental renal lesion less than 1 cm or classified as too small to characterize, or any incidental cystic renal lesion characterized as simple-appearing, is likely benign. No follow-up imaging is recommended for these lesions per consensus recommendations based on imaging criteria.
[2023-10-06] MEDS: potassium phosphate (mEq K) 40 MEQ in sodium chloride 0.9% (100 ml) 100 ML 27.27 MEQ IV (17:23)
[2023-10-06] MEDS: magnesium sulfate premix 2 GM/50 ML PIGGYBACK IV (17:30)
--- NOTE | 2023-10-06 17:49 | P.PN_ITS ---
Subjective 2 Subjective: Patient is much more cooperative today. She would did allow replacement of NG tube. NGT return noted to be blood-tinged today. H&H stable at 17.2. Medications: Reviewed: Yes Vitals/I&O/Wt Last Vital Signs Temp 98.1 F 10/06/23 11:43 Pulse 70 10/06/23 11:43 Resp 17 10/06/23 11:43 BP 179/93 10/06/23 11:43 Pulse Ox 93 10/06/23 11:43 O2 Del Method Room Air 10/06/23 08:05 10/06/23 10/06/23 10/06/23 06:59 14:59 22:59 Intake Total 50 / 1150 998.75 / 998.75 Output Total 400 / 850 Balance -350 / 300 998.75 / 998.75 Weight last 48 hrs Weight 64.609 kg Weight 64.682 kg Weight 54.431 kg Physical Exam 2 Narrative: General: No acute distress, AO x3 HEENT: PERRLA, pupils bilaterally equal and reactive, pallors not present Chest: Normal vesicular breath sounds, no added sounds, equal good air entry bilaterally CVS: S1-S2 regular, no murmurs, no tachycardia, no gallops, no rubs Abdomen: Soft, nontender, no organomegaly, bowel sounds present Neuro: No focal deficits, no facial deformity, AO x3, power 5/5 in all limbs Data 10/06/23 15:40 10/06/23 03:13 A&P Assessment and plan (1) Atrial fibrillation: Qualifiers: Atrial fibrillation type: longstanding persistent Qualified Code(s): I 48.11 - Longstanding persistent atrial fibrillation (2) Nausea and vomiting: Qualifiers: Vomiting type: unspecified Qualified Code(s): R11.2 - Nausea with vomiting, unspecified (3) Bowel obstruction: Qualifiers: Intestinal obstruction type: fecal impaction Qualified Code(s): K56.41 - Fecal impaction (4) Chronic constipation: (5) Memory deficits: Plan SBO Conservative management Place NG tube N.p.o. Start IV fluids Patient clinically is dehydrated Right lower lobe pneumonia Start Zosyn Patient experiencing flu related symptoms which is unusual in this weather No fever or leukocytosis Her antibiotics could be de-escalated if she remains afebrile for next 24 to 48 hours History of CHF no acute exacerbation Continue IV fluid N.p.o. Full code DVT prophylaxis added Dr. Carbone consulted 10/06/23: Allowed placement of NGT again. Added Protonix 40 mg IV every 12 hours due to blood-tinged discharge noted. Review of home medication shows that patient is chronically on Eliquis, would not start heparin drip for now given that noted to have blood-tinged discharge. Stat initial H&H with stable hemoglobin at 17.2 today. Recheck with a.m. labs. Potassium repleted this afternoon. No bowel movement yet. Did not hear back from psychiatry regarding capacity assessment yesterday. However today patient appears to be calm cooperative. States that she would want to be in the hospital. Defer capacity assessment for now, this may need to be reconsidered later in the course Attestations 2 Medical Necessity Statement*: Continue treatment for SBO Coding Level of Care Code Acute Code for Chg Fwd Diagnoses Longstanding persistent atrial fibrillation I48.11 Atrial fibrillation type: longstanding persistent Nausea and vomiting, unspecified vomiting type R11.2 Vomiting type: unspecified Fecal impaction K56.41 Intestinal obstruction type: fecal impaction Chronic constipation K59.09 Memory deficits R41.3
--- NOTE | 2023-10-06 18:20 | PC.NURSE ---
Patient vomited all of the contrast up after it was put into he NG tube. Dr. Carbone notified and he gave a verbal order to get the CT without it.
--- NOTE | 2023-10-06 19:08 | PC.NURSE ---
Upon initial assessment, pt has dark red noted in gastric contents. Verified placement of NG tube. Approx. 1 hour later gastric contents become a brighter red. Suction turned off. Notified both Dr. Emerson and Dr. Carbone. New orders given. NG tube displaced easily with movement, but replaced and verified. Advanced NG tube at end of shift approx. 5 inches per request. Verified placement with air. Taped NG tube multiple times to face to prevent displacement. Oral contrast given via NG tube as ordered. Pt immediately vomited contents and verbalized that she did not want to try again. Notified Dr. Carbone. Dr. Carbone states that he would like CT without contrast. Pt verbalizes that she is OK with that. Updated on plan of care and answered all questions.
[2023-10-06] MEDS: iohexol 350 mg/mL 500 mL Btl (per mL) IV (20:55)
[2023-10-06] MEDS: iohexol 350 mg/mL 500 mL Btl (per mL) PO (21:04)
--- NOTE | 2023-10-06 21:31 | PC.NURSE ---
Patient pulled out NG tube down at CT. Waiting for results from CT for possible reinsertion of NG tube.
[2023-10-06] MEDS: haloperidol inj 5 mg/mL INJ 1 mL 1 MG IVP (22:05)
--- NOTE | 2023-10-06 23:28 | XRR_ITS ---
PROCEDURE INFORMATION: Exam: XR Chest Exam date and time: 10/07/2023 12:32 AM Age: 78 years old Clinical indication: Device placement; Ng tube; Prior surgery; Surgery date: 6+ months; Surgery type: Gb; Patient HX: Check S/P ng placement; Additional info: Ng tube placement TECHNIQUE: Imaging protocol: Radiologic exam of the chest. Views: 1 view. COMPARISON: CR (ABDOMEN, ) 10/06/2023 3:13 PM FINDINGS: Tubes, catheters and devices: Enteric tube tip overlies the stomach. Lungs: No consolidation. Pleural spaces: Unremarkable. No pleural effusion. No pneumothorax. Heart/Mediastinum: Unremarkable. No cardiomegaly. Vasculature: Atherosclerotic calcifications. Bones/joints: Degenerative changes of the bilateral shoulders. Intraperitoneal space: Right upper quadrant clips. XR/XR chest 1V portable [id number] IMPRESSION: Enteric tube tip overlies the stomach. No acute pulmonary disease.
[2023-10-07] MEDS: potassium phosphate (mEq K) 40 MEQ in sodium chloride 0.9% (100 ml) 100 ML 27.27 MEQ IV (00:14)
[2023-10-07] MEDS: pantoprazole 40 mg SDV IVP ×2 (02:25→14:25)
[2023-10-07 03:58] VITALS: BP 149/79; PULSE 81; RESP 16; TEMP 36.9; O2SAT 94
[2023-10-07 04:22] LABS: Basophils % 0.3 %; Eosinophils # 0.1 10^3/uL (0.0-0.8); Eosinophils % 0.7 %; Hematocrit 46.3 % (36-47); Lymphocytes % 26.9 %; Mean Corpuscular HGB Conc 33.5 g/dL (30-55); Mean Corpuscular Hemoglobin 30.2 pg (27-33); Mean Corpuscular Volume 90.1 fl (85-98); Mean Platelet Volume 11.3 fL (7.4-10.4); Monocytes # 0.8 10^3/uL (0.2-0.9); Monocytes % 10.6 %; Neutrophils # 4.52 10^3/uL (1.8-7.7); Neutrophils % 61.2 %; Nucleated Red Blood Cells % 0 %; Platelet Count 179 10^3/cmm (157-399); Red Blood Count 5.14 10^6/uL (3.85-5.65); Red Cell Distribution Width 12.7 % (12.1-15.1); White Blood Count 7.37 10^3/uL (3.29-11.43)
[2023-10-07 04:40] LABS: Alanine Aminotransferase 86 U/L (0-33); Albumin Level 3.5 g/dL (3.5-5.2); Alkaline Phosphatase 157 U/L (35-105); Anion Gap 15.7 (5-19); Aspartate Amino Transferase 77 U/L (0-32); Blood Urea Nitrogen 6 mg/dL (8-23); Calcium 8.5 mg/dL (8.5-10.5); Carbon Dioxide 23 mmol/L (22-29); Chloride 105 mmol/L (98-107); Creatinine Clr Calc Pharmacy 52.9112; Globulin 2.9 g/dL (1.3-4.6); Glucose 125 mg/dL (65-115); Osmolality Calculated 289 mOsm/kg (285-295); Potassium 3.7 mmol/L (3.5-5.1); Sodium 140 mmol/L (136-145); Total Bilirubin 1.2 mg/dL (0.15-1.2); Total Protein 6.4 g/dL (6.6-8.7)
[2023-10-07] MEDS: piperacillin-tazobactam 3.375 GM in sodium chloride 0.9% (plus) 50 ML IV ×3 (05:43→21:42)
[2023-10-07 08:00] VITALS: BP 167/85; PULSE 75; RESP 18; TEMP 36.3; O2SAT 94
--- NOTE | 2023-10-07 10:01 | PC.CHAP ---
Pastoral Care Encounter/Spiritual Assessment Type of Contact [] Declined transition mgr rn visit [] Patient/Family/Request visit [] Outpatient visit [] Follow-up visit [] Physician referral [] Code/Alert [x] Routine visit [] Staff referral [] Actively dying [] Patient sleeping [x] Family support [] [] Out of room [] Palliative care [] [] Receiving care in room [] Pre-surgical visit [] Trauma [] Long length of stay [] ICU visit [] Other: Relational/Emotional Strength [] Patient feels connected with others/family/visitors/staff [] Distress [] Loneliness/isolation [] Abandonment Spirituality of Patient [x] Person of Martha [] Attends Anabaptist of their Martha [x] Believes in Prayer [] Reads Bible or Worship materials [] There are Spiritual issues to be addressed First Beater Interventions [x] Prayer [x] Active listening [] Non-anxious presence [] Spiritual/emotional support [] Crisis/trauma care [] Spiritual counseling [] Bereavement support [] Provided bereavement packet [] Provided Bible/devotional materials [] Provided toy/stuffed animal, coloring book to patient or family member [] Provided Communion [] Anointing/Minden [] Salvation [x] Completed spiritual assessment [] Other: Impact on Illness or Injury [] Angry [] Fearful [] Anxious [] Often cries [] Exhaustion [] Unable to work [] Unable to attend orthodox [] Unable to walk/stand [] Unable to read [] Unable to drive [] Unable to eat/drink [] Unable to sleep [] Unable to be with family [] Patient intubated [] Other: Summary Time spent with patient 10 min
--- NOTE | 2023-10-07 11:41 | P.PN_ITS ---
Subjective 2 Subjective: Patient is not endorsing any new complaints No passage of flatus yet is stating that she might not be able to recall events from yesterday Patient kept asking the same questions multiple times today Otherwise pleasant and cooperative I will request KUB to confirm NG tube placement, I do hear good bowel sounds on auscultation NG tube to low intermittent suction 400 mL in the container Vitals/I&O/Wt Last Vital Signs Temp 97.4 F L 10/07/23 08:00 Pulse 75 10/07/23 08:00 Resp 18 10/07/23 08:00 BP 167/85 10/07/23 08:00 Pulse Ox 94 10/07/23 08:00 O2 Del Method Room Air 10/07/23 08:58 10/06/23 10/07/23 10/07/23 22:59 06:59 14:59 Intake Total 1100 / 2098.75 764.5212 / 2863.2712 530 / 530 Output Total 1500 / 1500 50 / 1550 Balance -400 / 598.75 714.5212 / 1313.2712 530 / 530 Weight last 48 hrs Weight 64.909 kg Weight 64.609 kg Physical Exam 2 Narrative: Awake and alert NG tube to low intermittent suction Abdomen soft, no peritonitis signs Bowel sounds present Dehydrated Awake and alert No active focal deficit Hemodynamically stable at the bedside Data 10/07/23 02:52 10/07/23 02:52 A&P Assessment and plan (1) Hx SBO: (2) Chronic constipation: (3) Bowel obstruction: Qualifiers: Intestinal obstruction type: fecal impaction Qualified Code(s): K56.41 - Fecal impaction (4) Nausea and vomiting: Qualifiers: Vomiting type: unspecified Qualified Code(s): R11.2 - Nausea with vomiting, unspecified (5) Hypokalemia: (6) Memory deficits: (7) Short-term memory loss: Plan Patient is still not endorsing bowel movement or passage of flatus NG to low intermittent suction I will repeat KUB to confirm status of NG tube tip and SBO Abdomen soft with positive bowel sounds Hemodynamically stable No active complaints Abdomen nontender on palpation, Off Eliquis Will touch base with Dr. Carbone She has been afebrile We might feel to discontinue antibiotics by tomorrow if there is no plan for surgery DVT prophylaxis: SCDs Repeat labs tomorrow Full code Attestations 2 Medical Necessity Statement*: Continue medical management Diagnoses Hx SBO Z87.19 Chronic constipation K59.09 Fecal impaction K56.41 Intestinal obstruction type: fecal impaction Nausea and vomiting, unspecified vomiting type R11.2 Vomiting type: unspecified Hypokalemia E87.6 Memory deficits R41.3 Short-term memory loss R41.3
--- NOTE | 2023-10-07 11:43 | XRR_ITS ---
PROCEDURE INFORMATION: Exam: XR Abdomen Exam date and time: 10/07/2023 12:01 PM Age: 78 years old Clinical indication: Device placement; Gi device; Nasogastric tube; Prior surgery; Surgery date: 6+ months; Surgery type: Gb hernia sb resection hyst; Additional info: Ng sbo TECHNIQUE: Imaging protocol: Radiologic exam of the abdomen. Views: Frontal supine view of the abdomen. 1 View. COMPARISON: CT abdomen pelvis w con* [id number] 10/06/2023 8:53 PM FINDINGS: Gastrointestinal tract: Oral contrast present within loops of large bowel. Nonspecific gaseous distension of bowel in the lower abdomen. Intraperitoneal space: Multiple round dense objects project about the upper abdomen, possibly representing hernial mesh anchors. Bones/joints: No acute osseous findings. XR/XR KUB portable [id number] IMPRESSION: Nonspecific gaseous distension of bowel in the lower abdomen.
[2023-10-07 12:00] VITALS: BP 166/86; PULSE 98; RESP 18; TEMP 36.4; O2SAT 98
[2023-10-07] MEDS: dextrose 5%-sod chloride 0.9% 1,000 ML 75 ML IV (12:46)
--- NOTE | 2023-10-07 14:16 | PC.SOCIAL ---
IMM Updated Updated pt on IMM. No questions voiced. Provided pt a copy. Initialed, dated, & timed a copy & placed in chart.
[2023-10-07] MEDS: hyDRALAzine 20 mg/mL INJ 1 mL 10 MG IVP (15:29)
[2023-10-07 16:00] VITALS: BP 165/70; PULSE 85; RESP 18; TEMP 37.1; O2SAT 95
[2023-10-07] MEDS: morphine 4 mg/mL SDV 1 mL 2 MG IVP (16:26)
[2023-10-07 16:59] LABS: Methicillin-Resist S.aureu PCR NOT DETECTED (NOT DETECTED)
--- NOTE | 2023-10-07 17:36 | P.PN_ITS ---
Subjective 2 Subjective: Patient seen and examined. Still reporting abdominal pain and lack of flatus and bowel movement Vitals/I&O/Wt Last Vital Signs Temp 98.7 F 10/07/23 16:00 Pulse 85 10/07/23 16:00 Resp 18 10/07/23 16:00 BP 165/70 10/07/23 16:00 Pulse Ox 95 10/07/23 16:00 O2 Del Method Room Air 10/07/23 08:58 10/07/23 10/07/23 10/07/23 06:59 14:59 22:59 Intake Total 764.5212 / 2863.2712 1552.5 / 1552.5 Output Total 50 / 1550 650 / 650 Balance 714.5212 / 1313.2712 902.5 / 902.5 Weight last 48 hrs Weight 143 lb 1.6 oz Weight 142 lb 7 oz Physical Exam 2 Narrative: General: No acute distress, awake alert and oriented x 3 Abdomen: Soft, mildly distended, tender to palpation right lower quadrant and suprapubically, no guarding or rebound Data 10/07/23 02:52 10/07/23 02:52 A&P Assessment and plan (1) Partial small bowel obstruction: (2) Aspiration pneumonitis: (3) Chronic constipation: (4) Hypokalemia: Plan Continue n.p.o./NG tube. She is getting to the point where if she does not open up very soon she will need surgical intervention. I discussed this with the patient and her . They are very hesitant to proceed with surgery as she has had numerous abdominal surgeries in the past with complications. I am willing to try conservative management for another few days if necessary. IV fluids-gently in the setting of CHF TPN Aggressive electrolyte replacement Medical management per hospitalist Attestations 2 Medical Necessity Statement*: Per primary Coding Level of Care Code 92473 Diagnoses Partial small bowel obstruction K56.600 Aspiration pneumonitis J69.0 Chronic constipation K59.09 Hypokalemia E87.6
[2023-10-07 20:00] VITALS: BP 155/73; PULSE 72; RESP 15; TEMP 36.6; O2SAT 94
[2023-10-07] MEDS: acetaminophen 500 mg Tablet PO (21:41)
[2023-10-07 23:59] VITALS: BP 167/76; PULSE 76; RESP 18; TEMP 37.1; O2SAT 94
[2023-10-08] VITALS (7 sets, daily range): BP systolic 124–167; BP diastolic 56–78; PULSE 80–93; RESP 15–20; TEMP 36.5–36.9; O2SAT 95–96
[2023-10-08] MEDS: hyDRALAzine 20 mg/mL INJ 1 mL 10 MG IVP ×2 (00:34→05:27)
[2023-10-08] MEDS: dextrose 5%-sod chloride 0.9% 1,000 ML 75 ML IV ×2 (00:37→14:40)
[2023-10-08] MEDS: morphine 4 mg/mL SDV 1 mL 2 MG IVP (02:05)
[2023-10-08] MEDS: pantoprazole 40 mg SDV IVP ×2 (02:06→14:40)
[2023-10-08] MEDS: ondansetron 2 mg/ML SDV 2 mL 4 MG IVP (02:15)
[2023-10-08 04:55] LABS: Basophils % 0.4 %; Eosinophils # 0.1 10^3/uL (0.0-0.8); Eosinophils % 0.9 %; Hematocrit 46.5 % (36-47); Lymphocytes # 1.9 10^3/uL (0.8-4.8); Lymphocytes % 19.8 %; Mean Corpuscular Hemoglobin 29.6 pg (27-33); Mean Corpuscular Volume 92.4 fl (85-98); Mean Platelet Volume 10.7 fL (7.4-10.4); Monocytes # 0.9 10^3/uL (0.2-0.9); Monocytes % 8.8 %; Neutrophils # 6.79 10^3/uL (1.8-7.7); Neutrophils % 69.8 %; Platelet Count 216 10^3/cmm (157-399); Red Blood Count 5.03 10^6/uL (3.85-5.65); Red Cell Distribution Width 12.9 % (12.1-15.1); White Blood Count 9.74 10^3/uL (3.29-11.43)
[2023-10-08 04:56] LABS: Nucleated Red Blood Cells % 0 %
[2023-10-08 05:16] LABS: Blood Urea Nitrogen 7 mg/dL (8-23); Calcium 8.4 mg/dL (8.5-10.5); Carbon Dioxide 20 mmol/L (22-29); Chloride 110 mmol/L (98-107); Creatinine Clr Calc Pharmacy 52.9112; Glucose 151 mg/dL (65-115); Osmolality Calculated 293 mOsm/kg (285-295); Sodium 141 mmol/L (136-145)
[2023-10-08 05:26] LABS: Anion Gap 14.4 (5-19); Potassium 3.4 mmol/L (3.5-5.1)
[2023-10-08] MEDS: piperacillin-tazobactam 3.375 GM in sodium chloride 0.9% (plus) 50 ML IV ×2 (05:27→14:39)
[2023-10-08] MEDS: acetaminophen 500 mg Tablet PO (05:27)
[2023-10-08] MEDS: ketorolac 30 mg/mL INJ 15 MG IVP (07:47)
[2023-10-08] MEDS: lidocaine 1% 5 ML in potassium chloride premix 100 ML 26.25 ML IV (09:23)
--- NOTE | 2023-10-08 11:23 | P.PN_ITS ---
Subjective 2 Subjective: Patient stating that she passed flatus twice yesterday but she is not 100% sure Hemodynamically stable Her headache improved after getting Toradol at the bedside is upset that he was not able to catch Dr. Carbone when he came to see the patient has been stating that they have a sick dog and he wanted to go home to take care of the dog Starting PPN today Vitals/I&O/Wt Last Vital Signs Temp 97.7 F 10/08/23 07:18 Pulse 87 10/08/23 07:18 Resp 18 10/08/23 07:18 BP 167/75 10/08/23 07:18 Pulse Ox 96 10/08/23 07:18 O2 Del Method Room Air 10/08/23 08:28 10/07/23 10/08/23 10/08/23 22:59 06:59 14:59 Intake Total 290 / 1842.5 938.75 / 2781.25 50 / 50 Output Total 700 / 1350 Balance 290 / 1192.5 238.75 / 1431.25 50 / 50 Weight last 48 hrs Weight 66.224 kg Weight 64.909 kg Physical Exam 2 Narrative: Signs of dehydration present Awake and alert GCS 15 Nonfocal neuroexam Breath sounds sluggish as compared to yesterday Awake and alert Data 10/08/23 04:38 10/08/23 04:38 A&P Assessment and plan (1) Short-term memory loss: (2) Memory deficits: (3) Chronic constipation: (4) Hx SBO: (5) Bowel obstruction: Qualifiers: Intestinal obstruction type: fecal impaction Qualified Code(s): K56.41 - Fecal impaction (6) Nausea and vomiting: Qualifiers: Vomiting type: unspecified Qualified Code(s): R11.2 - Nausea with vomiting, unspecified Plan SBO Conservative management Patient has not experienced a bowel movement Endorsing passage of flatus but she is not sure She is forgetful Has cognitive impairment related to her age Continue IV fluids and antibiotics I might discontinue antibiotics by tomorrow Dr. Carbone has been notified about 's concerns I will continue D5 normal saline IV fluids: Headache improved with use of ketorolac Start PPN today for protein calorie malnourishment, appreciate dietary recommendations N.p.o. DVT prophylaxis: SCDs Attestations 2 Medical Necessity Statement*: Continue medical management Diagnoses Short-term memory loss R41.3 Memory deficits R41.3 Chronic constipation K59.09 Hx SBO Z87.19 Fecal impaction K56.41 Intestinal obstruction type: fecal impaction Nausea and vomiting, unspecified vomiting type R11.2 Vomiting type: unspecified
--- NOTE | 2023-10-08 11:38 | PC.NURSE ---
During 0700 rounds, pt states that she is going to take her NG tube out. redirects patient. After leaves, at 1130, this RN walks into room. NG tube is out, intact, and on the bed. Pt states, oh this must have fallen out in my sleep. Do NOT give me another one! Dr. Carbone notified. notified by Dr. Carbone.
--- NOTE | 2023-10-08 18:17 | PC.NURSE ---
During rounds, pt was adamant that she wanted to keep NG tube out. Plan of care changed, per Dr. Carbone and Dr. Downey, to clear liquid diet. Pt tolerates clear liquids well. Pt verbalizes that she feels much better. Walking hallways independently at this time.
--- NOTE | 2023-10-08 19:50 | P.NPUCON_ITS ---
Providers/Reason for Consult 2 Consulting Physican/Specialty*: Jadon Larose MD/Psychiatry Reason for Consult*: competency/informed consent/memory problems. Attending Physician: Armando Downey MD Primary Care Provider: Antwan Bernal DO Psych Consult HPI History of Present Illness Anju Duffy is a 78 year old female with history of multiple medical problems including several surgeries from small bowel obstructions. Consult was completed as there had been some question regarding the patient's ability to provide informed consent given the problems that she has with short-term memory. Patient was briefly evaluated. She reported having had difficulties with managing her previous surgeries but stated that if surgery was to be necessary that she would comply. She had reported that her decisions that were typically made were done with her and she acknowledged that she did have problems with remembering things and was upset that she had remained here. She had not recently engaged in any refusal over the past few days in regards to completion of procedures. She had reported that she did struggle with some completion of activities but reported that she had support from her . She had reported adequate sleep. She denied any depressed mood. She had reported no history of mental health treatment. She had also reported having some difficulties with word finding but reported that she had felt better over the past few days. She reported no history of mental health illness. She had reported no family history of dementia. She had reported no history of significant substance abuse. Previous medical history was reviewed by the sports book writer of this note. 78-year-old female with a history of atrial fibrillation treated with Eliquis, congestive heart failure, degenerative disc disease of the cervical and lumbar spine, and history of multiple abdominal surgeries secondary to bowel obstructions as well as history of staph sepsis requiring prolonged antibiotic treatment in [id number]. In view of the patient's reports of short-term memory difficulty she was referred for neurological assessment. During the patient initial clinic visit she was scheduled for head MRI with and without contrast with attention to the pituitary gland. 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 There was also reports of mild cortical atrophy with mild small vessel ischemic changes. Carotid duplex study was performed on 07/19/2023 and revealed mild scattered plaque in the common carotid arteries with extension into the bifurcation bilaterally measuring less than 50% stenosis. Antegrade flow was reported in the vertebral arteries bilaterally. Lab for B12, folate, vitamin B1, vitamin B6, methylmalonic acid, homocystine, vitamin D and thyroid profile were performed. This lab was ordered on 07/17/2023 and performed on 08/02/2023. This lab was unrevealing. Vitamin B1 was not performed until 09/16/2023. This level was 195. Normal equals 78-185). Patient was also evaluated by endocrinology and underwent labs for prolactin, cortisol, ACTH, RPR and thyroid peroxidase. These labs were reported to be unrevealing. The patient presented for reassessment accompanied by her . The results of her test were discussed. I recommended the patient be evaluated by a neurosurgeon but the patient elected to hold off until she has followed up with Dr. Avila to go over the endocrinology lab work. I informed them that the lab in the computer ordered by Dr. Avila was unremarkable. I encouraged them to keep their appointment with endocrinology. I again recommend the patient get a baseline neurosurgery evaluation for the microadenoma but the patient refused and wanted to hold off at this time and follow-up in a year with regards to the pituitary lesion. The had more question regarding the patient's memory loss. I informed him that the patient has displayed some mild cognitive impairment but at this point I cannot confirm or exclude dementia. I recommended the patient try another natural supplement for memory and consider undergoing more extensive neuropsychological testing for memory as well as considering PET scan and possibly lumbar puncture for CSF evaluation for dementia. I did recommend obtaining an APOE genotype today on her blood. The patient and the patient agree with this plan to obtain the blood for APOE genotype and follow-up in 6 months to reassess the patient's memory loss with repeat MMSE and consider additional formal neuropsychological testing for memory loss as well as PET scan as well as considering lumbar puncture under fluoroscopy for INSURANCE ACCOUNT MANAGER evaluation for dementia. Meds Home Medications and Allergies Home Medications Medication Instructions Recorded Confirmed Last Taken Type buspirone 5 mg tablet 5 mg PO TID PRN Anxiety 11/10/21 10/05/23 10/05/23 History magnesium hydroxide 400 mg/5 mL 1,200 mg (15 mL) PO QID PRN 11/11/21 10/07/23 11/11/21 Rx oral suspension (Milk of Magnesia) constipation #355 mL carvedilol 6.25 mg tablet (Coreg) 6.25 mg PO BEDTIME 05/08/23 07/27/24 07/27/24 History carvedilol 25 mg tablet 12.5 mg PO QAM 02/04/23 10/05/23 10/05/23 History amlodipine 2.5 mg tablet (Norvasc) 2.5 mg PO DAILY 03/23/23 10/05/23 10/04/23 History apixaban 5 mg tablet (Eliquis) 5 mg PO BID #180 tabs 04/02/23 10/05/23 10/05/23 Rx sumatriptan succinate 100 mg tablet 100 mg PO Q2H PRN Migraine 06/24/23 10/07/23 Unknown Rx Headache #60 tabs hydrocodone 5 mg-acetaminophen 325 1 tab PO Q6H PRN pain #20 tabs 08/02/23 10/07/23 Unknown Rx mg tablet ondansetron 8 mg disintegrating 8 mg PO .q6 PRN nausea and 08/02/23 10/07/23 Unknown Rx tablet vomiting #14 tabs Allergies Allergy/AdvReac Type Severity Reaction Status Date / Time azithromycin Allergy ALGY-Anaphy Verified 08/21/23 08:08 laxis Latex, Natural Rubber Allergy ALGY-Rash Verified 08/21/23 08:08 olanzapine [From Zyprexa] Allergy hallucinati Verified 08/21/23 08:08 ons/agitate d lorazepam [From Ativan] AdvReac hallucination, Verified 08/21/23 08:08 agitated Current Medications Current Medications Generic Name Dose Route Start Last Admin Trade Name Freq PRN Reason Stop Dose Admin Acetaminophen 500 mg 10/05/23 05:02 10/08/23 05:27 Acetaminophen 500 Mg Tablet PO 500 mg Q4H PRN Administration fever Haloperidol Lactate 1 mg 10/05/23 17:13 10/06/23 22:05 Haloperidol Inj 5 Mg/Ml Inj 1 Ml IVP 1 mg Q4H PRN Administration AGITATION Hydralazine HCl 10 mg 10/05/23 17:13 10/08/23 05:27 Hydralazine 20 Mg/Ml Inj 1 Ml IVP 10 mg Q4H PRN Administration SBP > 160 Dextrose/Sodium Chloride 1,000 mls @ 75 mls/hr 10/05/23 05:15 10/08/23 14:40 Dextrose 5%-Sod Chloride 0.9% IV 75 mls/hr .[id number] ROCIO Administration Piperacillin Sod/Tazobactam 50 mls @ 12.5 mls/hr 10/05/23 06:00 10/08/23 14:39 Sod 3.375 gm/ Sodium Chloride IV 12.5 mls/hr Q8H ROCIO Administration Morphine Sulfate 2 mg 10/05/23 06:14 10/08/23 02:05 Morphine 4 Mg/Ml Sdv 1 Ml IVP 2 mg Q4H PRN Administration SEVERE PAIN Ondansetron HCl 4 mg 10/05/23 05:02 10/08/23 02:15 Ondansetron 2 Mg/Ml Sdv 2 Ml IVP 4 mg Q6H PRN Administration NAUSEA AND VOMITING Pantoprazole Sodium 40 mg 10/06/23 14:30 10/08/23 14:40 Pantoprazole 40 Mg Sdv IVP 40 mg Q12H ROCIO Administration PFSH NPU 2 PFSH: Medical History Hx SBO Lumbar stenosis with neurogenic claudication Atrial fibrillation Low back pain at multiple sites Myopericarditis Protein-energy malnutrition Congestive heart failure Non-ST elevation AL (NSTEMI) Discitis, unspecified, lumbar region MRSA bacteremia Small bowel obstruction Pain of both breasts DM II (diabetes mellitus, type II), controlled Chronic nausea GUILLAUME (generalized anxiety disorder) Colonic diverticular abscess Necrotizing fasciitis Coronary disease Osteoarthritis Gout Scleroderma Pericarditis Migraine Hypertension GERD (gastroesophageal reflux disease) Surgical History History of delivery History of neck surgery History of cholecystectomy H/O hernia repair H/O colectomy S/P dilatation of esophageal stricture S/P ANH-BSO Family History Mother Congestive heart failure (CHF) Social History Smoking and tobacco/nicotine status: never used tobacco/nicotine Alcohol intake: never Substance/Drug Use: never Lives independently: No Household members: spouse Marital status: Mental Status Exam 2 MSE Comments: She is a pleasant white female who appeared her stated age. She was lying in bed and appeared in no acute distress. She was asked if she recognized the sports book writer of this note and appropriately did not. Her mood was described as okay. Her affect appeared euthymic. Her thought process was linear logical and goal- directed. Her thought content showed no evidence of active homicidal or suicidal ideation. Her speech was productive and normal in rate rhythm and prosody. She was alert and oriented to person place, month, year, but not date, or day of the week. She did appear to recognize the season. She was able to spell the word world forwards and backwards. She was able to recognize the current president but was unable to recall any past presidents beyond that. She was able to write a sentence correctly. Intersecting pentagons were not completed. She had registration of 3 words correctly but got 0 out of 3 words after 5 minutes. She had some ability to abstract including the understanding of some proverbs. Her insight was fair. Her impulse control appeared adequate. Her judgment appeared fair. She appeared to ask appropriate questions regarding her care and acknowledged that she had problems with memory and requested help with how she could make better decisions. 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 Recommendations for the patient included potentially having her family member around to help as the patient's problems with memory may eventually be signficant enough that she may be is unable to assess the risks and benefits particular treatment. This may need to be assessed on case by case basis. She appears less confused and does not appear to be refusing any treatment in last few days. Patient may benefit from having be power of assistant prosecuting attorney. Attestations NPU 2 Medical Necessity Statement*: NA Coding Level of Care Code Acute Code for Chg Fwd Diagnoses Age-related memory disorder R41.3
[2023-10-09] VITALS: BP 150/87; PULSE 80; RESP 17; TEMP 36.7; O2SAT 95
[2023-10-09] MEDS: piperacillin-tazobactam 3.375 GM in sodium chloride 0.9% (plus) 50 ML IV ×2 (00:19→10:34)
[2023-10-09] MEDS: pantoprazole 40 mg SDV IVP (03:06)
[2023-10-09 04:00] VITALS: BP 136/76; PULSE 77; RESP 18; TEMP 36.8; O2SAT 94
[2023-10-09 06:04] LABS: Basophils % 0.5 %; Eosinophils # 0.3 10^3/uL (0.0-0.8); Eosinophils % 3.6 %; Hematocrit 39.6 % (36-47); Lymphocytes # 2.6 10^3/uL (0.8-4.8); Lymphocytes % 34.3 %; Mean Corpuscular HGB Conc 33.3 g/dL (30-55); Mean Corpuscular Hemoglobin 30.4 pg (27-33); Mean Corpuscular Volume 91.2 fl (85-98); Mean Platelet Volume 10.6 fL (7.4-10.4); Monocytes # 0.9 10^3/uL (0.2-0.9); Monocytes % 11.6 %; Neutrophils # 3.78 10^3/uL (1.8-7.7); Neutrophils % 49.7 %; Nucleated Red Blood Cells % 0 %; Platelet Count 215 10^3/cmm (157-399); Red Blood Count 4.34 10^6/uL (3.85-5.65); Red Cell Distribution Width 12.7 % (12.1-15.1)
[2023-10-09 06:30] LABS: Anion Gap 14.4 (5-19); Blood Urea Nitrogen 10 mg/dL (8-23); Calcium 8.3 mg/dL (8.5-10.5); Carbon Dioxide 21 mmol/L (22-29); Chloride 111 mmol/L (98-107); Creatinine Clr Calc Pharmacy 52.9626; Glucose 111 mg/dL (65-115); Osmolality Calculated 296 mOsm/kg (285-295); Potassium 3.4 mmol/L (3.5-5.1); Sodium 143 mmol/L (136-145)
[2023-10-09 07:35] VITALS: BP 146/71; PULSE 73; RESP 16; TEMP 36.5; O2SAT 93
[2023-10-09 08:01] VITALS: PULSE 73; RESP 16; O2SAT 93
[2023-10-09] MEDS: dextrose 5%-sod chloride 0.9% 1,000 ML 75 ML IV (10:33)
[2023-10-09 11:21] VITALS: BP 146/70; PULSE 70; RESP 15; TEMP 36.7; O2SAT 94
--- NOTE | 2023-10-09 11:42 | P.DS_ITS ---
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: Status: Acute Reason for Visit Reason for Visit: Possible Bowell Blockage Hospital Course Hospital Course 78-year female with multiple abdominal surgeries such as sigmoid volvulus, diverticulitis, status post colectomy, she also suffer from necrotizing fasciitis at some point which cause more complications such as fistula de velopment, patient required multiple drains in the past, gets recurrent SBO which gets better with conservative management, presented to the hospital with chief complaint of nausea vomiting, she was diagnosed with SBO, she had a transition point as well, NG tube was placed which showed significant output, patient was kept n.p.o. for at least 3 days, PPN was started, NG tube came out and patient refused another attempt, patient was also wanting to go home, we were concerned about her decision making capacity, psych was consulted, patient has had multiple evaluations in the past which did not show any signs of dementia, patient seems to have senile memory deficit but does not suffer from dementia at this point. She is intellectually intact. She has short-term memory loss only. is very well aware of her condition and is a medical DPOA as well however at this point patient is able to make decisions for herself. Patient did well with clear liquids, will advance her diet to full liquids, she is passing flatus, had a small BM, patient is being discharged with stable hemodynamics. Patient is well aware about her body, she stays active at home, she was counseled on using liquid diet for now maybe try fruits or vegetable smoothies instead of solids for next few days. is in agreement. He is also looking into multivitamin supplementation. Dr. Carbone was consulted who followed along, he recommended surgical intervention in case patient had not improved for more than 72 hours however NG tube came out spontaneously and patient tolerated clear liquid diet. Physical Exam Narrative: Dehydration signs present Awake and alert Tolerating clear liquid now No active nausea vomiting Pleasant cooperative S1, S2 Currently on room air Discharge Data Studies Completed and Pending Completed Studies During Hospitalization Category Date Time Status CT abdomen pelvis w con* [id number] Routine Cat Scan 10/06/23 17:[address] abdomen pelvis w con* [id number] Stat Cat Scan 10/05/23 02:23 Completed CXRP [XR chest 1V portable [id number]] Routine Exams 10/06/23 23:28 Completed CXRP [XR chest 1V portable [id number]] Stat Exams 10/05/23 05:06 Completed XR KUB portable [id number] Routine Exams 10/07/23 11:43 Completed XR acute abdomen series [id number] Stat Exams 10/06/23 14:41 Completed XR chest 1V portable [id number] Routine Exams 10/05/23 09:49 Completed XR chest 1V portable [id number] Stat Exams 10/06/23 02:53 Completed XR chest 1V portable [id number] Urgent Exams 10/05/23 17:46 Completed Pending at discharge Category Date Time Status Sputum Culture and Gram Stain Routine Lab 10/05/23 10:54 Uncollected Radiology Impressions Chest/Abdomen X-ray 10/06/23 14:41 IMPRESSION: No evidence for acute cardiopulmonary disease IMPRESSION: No acute findings.Non acute findings as described above. Abdomen/Pelvis CT 10/06/23 17:06 IMPRESSION: 1. Unchanged dilation of small bowel loops with air-fluid levels proximal to the right lower quadrant anastomotic sutures, with a loop of bowel measuring up to 5.5 cm. Fecalization of stool within proximal bowel loops indicating slow transit. No pneumoperitoneum. 2. Status post cholecystectomy. Decreasing small volume pneumobilia. Persistent intrahepatic and extrahepatic biliary ductal dilation. 3. Medial right lower lobe bronchiectasis with scarring and tree-in-bud nodularity as well as bronchial wall thickening. COMMENTS: Consistent with the [employer]'s Incidental Findings Committee white paper (J Am Patricia Radiol 2018): Any incidental renal lesion less than 1 cm or classified as too small to characterize, or any incidental cystic renal lesion characterized as simple-appearing, is likely benign. No follow-up imaging is recommended for these lesions per consensus recommendations based on imaging criteria. Chest X-Ray 10/06/23 23:28 IMPRESSION: Enteric tube tip overlies the stomach. No acute pulmonary disease. KUB X-Ray 10/07/23 11:43 IMPRESSION: Nonspecific gaseous distension of bowel in the lower abdomen. Laboratory Results WBC 7.60 10^3/uL (3.29-11.43) 10/09/23 05:48 RBC 4.34 10^6/uL (3.85-5.65) 10/09/23 05:48 Hgb 13.20 g/dL (11.27-16.99) 10/09/23 05:48 Hct 39.6 % (36-47) 10/09/23 05:48 MCV 91.2 fl (85-98) 10/09/23 05:48 MCH 30.4 pg (27-33) 10/09/23 05:48 MCHC 33.3 g/dL (30-55) 10/09/23 05:48 RDW 12.7 % (12.1-15.1) 10/09/23 05:48 Plt Count 215 10^3/cmm (157-399) 10/09/23 05:48 MPV 10.6 fL (7.4-10.4) H 10/09/23 05:48 Neut % (Auto) 49.7 % 10/09/23 05:48 Lymph % (Auto) 34.3 % 10/09/23 05:48 [place] % (Auto) 11.6 % 10/09/23 05:48 Eos % (Auto) 3.6 % 10/09/23 05:48 Baso % (Auto) 0.5 % 10/09/23 05:48 Neut # (Auto) 3.78 10^3/uL (1.8-7.7) 10/09/23 05:48 Lymph # (Auto) 2.6 10^3/uL (0.8-4.8) 10/09/23 05:48 [place] # (Auto) 0.9 10^3/uL (0.2-0.9) 10/09/23 05:48 Eos # (Auto) 0.3 10^3/uL (0.0-0.8) 10/09/23 05:48 Baso # (Auto) 0.0 10^3/uL (0.0-0.1) 10/09/23 05:48 Nucleated RBC % (auto) 0 % 10/09/23 05:48 Nucleated RBCs # 0.0 /100WBC 10/09/23 05:48 Sodium 143 mmol/L (136-145) 10/09/23 05:48 Potassium 3.4 mmol/L (3.5-5.1) L 10/09/23 05:48 Chloride 111 mmol/L (98-107) H 10/09/23 05:48 Carbon Dioxide 21 mmol/L (22-29) L 10/09/23 05:48 Anion Gap 14.4 (5-19) 10/09/23 05:48 BUN 10 mg/dL (8-23) 10/09/23 05:48 Creatinine 0.6 mg/dL (0.5-0.9) 10/09/23 05:48 GFR Calculation Not Reportable 10/09/23 05:48 Glucose 111 mg/dL (65-115) 10/09/23 05:48 Calculated Osmolality 296 mOsm/kg (285-295) H 10/09/23 05:48 Lactic Acid 1.7 mmol/L (0.5-2.2) 10/05/23 02:48 Calcium 8.3 mg/dL (8.5-10.5) L 10/09/23 05:48 Magnesium 1.8 mg/dL (1.7-2.3) 10/06/23 03:13 Total Bilirubin 1.2 mg/dL (0.15-1.2) 10/07/23 02:52 AST 77 U/L (0-32) H 10/07/23 02:52 ALT 86 U/L (0-33) H 10/07/23 02:52 Alkaline Phosphatase 157 U/L (35-105) H 10/07/23 02:52 C-Reactive Protein 8.0 mg/L (0.0-4.9) H 10/06/23 03:13 Total Protein 6.4 g/dL (6.6-8.7) L 10/07/23 02:52 Albumin 3.5 g/dL (3.5-5.2) 10/07/23 02:52 Globulin 2.9 g/dL (1.3-4.6) 10/07/23 02:52 Lipase 64 U/L (13-60) H 10/05/23 02:48 Urine Color Yellow (Yellow) 10/05/23 02:25 Urine Appearance Cloudy (CLEAR) A 10/05/23 02:25 Urine pH 9 (5-7) H 10/05/23 02:25 Ur Specific Dawson 1.015 (1.005-1.030) 10/05/23 02:25 Urine Protein Neg (Negative) 10/05/23 02:25 Urine Glucose (UA) Norm (Normal) 10/05/23 02:25 Urine Ketones Negative (Negative) 10/05/23 02:25 Urine Blood 3+ (Negative) H 10/05/23 02:25 Urine Nitrate Negative (Negative) 10/05/23 02:25 Urine Bilirubin Neg (Negative) 10/05/23 02:25 Urine Urobilinogen Neg mg/dL (Negative) 10/05/23 02:25 Ur Leukocyte Esterase Negative (Negative) 10/05/23 02:25 Urine RBC 5-10 /hpf (0-2) H 10/05/23 02:25 Urine WBC 0-4 /hpf (0-5) H 10/05/23 02:25 Ur Squamous Epith Cells 5-10 /hpf (0-5) H 10/05/23 02:25 Amorphous Sediment Not Reportable 10/05/23 02:25 Urine Bacteria 1+ /hpf (NONE) H 10/05/23 02:25 Adenovirus (PCR) Not detected (NOT DETECT) 10/05/23 21:56 C. pneumoniae DNA (PCR) Not detected (NOT DETECT) 10/05/23 21:56 Coronavirus 229E (PCR) Not detected (NOT DETECT) 10/05/23 21:56 Human Metapneumovir PCR Not detected (NOT DETECT) 10/05/23 21:56 Influenza A (H1) PCR Not detected (NOT DETECT) 10/05/23 21:56 Influ A (H1/09) PCR Not detected (NOT DETECT) 10/05/23 21:56 Influenza A (H3) PCR Not detected (NOT DETECT) 10/05/23 21:56 Influenza Type A (PCR) Not detected (NOT DETECT) 10/05/23 21:56 Influenza Type B (PCR) Not detected (NOT DETECT) 10/05/23 21:56 M. pneumoniae (PCR) Not detected (NOT DETECT) 10/05/23 21:56 Parainfluenza 1 (PCR) Not detected (NOT DETECT) 10/05/23 21:56 Parainfluenza 2 (PCR) Not detected (NOT DETECT) 10/05/23 21:56 Parainfluenza 3 (PCR) Not detected (NOT DETECT) 10/05/23 21:56 Parainfluenza 4 (PCR) Not detected (NOT DETECT) 10/05/23 21:56 RSV Type A (PCR) Not detected (NOT DETECT) 10/05/23 21:56 RSV Type B (PCR) Not detected (NOT DETECT) 10/05/23 21:56 Entero/Rhino (PCR) Not detected (NOT DETECT) 10/05/23 21:56 SARS-CoV-2 (PCR) Not detected (NOT DETECT) 10/05/23 21:56 MRSA (PCR) Not detected (NOT DETECTED) 10/05/23 21:56 Vitals Last Vital Signs Temp 98.1 F 10/09/23 11:21 Pulse 70 10/09/23 11:21 Resp 15 10/09/23 11:21 BP 146/70 10/09/23 11:21 Pulse Ox 94 10/09/23 11:21 O2 Del Method Room Air 10/09/23 11:21 Discharge Plan Discharge Patient Disposition: Home Condition: Stable Prescriptions: New lactulose 10 gram/15 mL solution 10 g PO DAILY PRN (Reason: constipation) Qty: 473 0RF Continued Eliquis 5 mg tablet 5 mg PO BID Qty: 180 3RF sumatriptan succinate 100 mg tablet 100 mg PO Q2H MDD 2 doses PRN (Reason: Migraine Headache) Qty: 60 0RF Rx Instructions: do not exceed 2 doses per 24 hrs carvedilol [Coreg] 6.25 mg tablet 6.25 mg PO BEDTIME amlodipine [Norvasc] 2.5 mg tablet 2.5 mg PO DAILY buspirone 5 mg tablet 5 mg PO TID PRN (Reason: Anxiety) magnesium hydroxide [Milk of Magnesia] 400 mg/5 mL suspension 1,200 mg PO QID PRN (Reason: constipation) Qty: 355 0RF carvedilol 25 mg tablet 12.5 mg PO QAM hydrocodone-acetaminophen 5-325 mg tablet 1 tab PO Q6H PRN (Reason: pain) Qty: 20 0RF ondansetron 8 mg tablet,disintegrating 8 mg PO .q6 PRN (Reason: nausea and vomiting) Qty: 14 0RF Discharge Orders: Discharge Order (Routine); Ordered 10/09/23 Ordered By: Armando Downey Referrals: Antwan Bernal DO [Primary Care Provider] - (We have notified your physician's clinic of the need for a follow-up appointment to be scheduled. If you have not heard from them within the next 2 business days, please call them directly. ) Jose Juan Carbone DO [Physician] - 2 weeks (We have notified your physician's clinic of the need for a follow-up appointment to be scheduled. If you have not heard from them within the next 2 business days, please call them directly. ) Patient Instructions: Opioid Safety Discharge Attestations Time Spent in Discharge Care*: greater than 30 min Status at Discharge: Cognitive status at discharge: cognitively intact , Behavioral status at discharge: cooperative , Quality Metrics Clinical Quality Measures [ No reported AMI, CVA or VTE this stay] Coding Level of Care Code Acute Code for Chg Fwd Diagnoses Age-related memory disorder R41.3
[2023-10-09 14:51] VITALS: BP 146/70; PULSE 70; RESP 15; TEMP 36.7; O2SAT 94
== END 2023-10-09 13:15 | disposition home or self-care (01) | DRG 388 ==
LOC: ER 05:21 → MEDSURG 06:08
PROVIDERS: Student in an Organized Health Care Education/Training Program; Admitting Provider Internal Medicine; Emergency Provider Emergency Medicine; PCP Family Medicine; Visit Provider Internal Medicine
DX: K56.600 Partial intestinal obstruction, unspecified as to cause (principal); J69.0 Pneumonitis due to inhalation of food and vomit; I48.20 Chronic atrial fibrillation, unspecified; E46 Unspecified protein-calorie malnutrition; R41.3 Other amnesia; E86.0 Dehydration; K59.09 Other constipation; E87.6 Hypokalemia; Z79.01 Long term (current) use of anticoagulants; I50.9 Heart failure, unspecified; I11.0 Hypertensive heart disease with heart failure; F41.1 Generalized anxiety disorder
CPT/HCPCS: 36415; 71045; 74018; 74022; 74177; 80048; 80053; 81001; 83605; 83690; 83735; 85014; 85018; 85025; 86140; 87486; 87581; 87633; 87641; 93005; 94640; 96365; 96375; 96376; 99285; J0360; J1170; J1630; J1885; J2270; J2405; J2470; J2543; J3475; J3480; J7030; J7042; Q9967

== ENCOUNTER → 2023-12-02 14:57 | Outpatient (BNVA) | payer MEDICARE, OTHER, SELFPAY | PROVIDERS: PCP Family Medicine; Visit Provider Psychiatry & Neurology Neurology | DX: R41.3 Other amnesia (principal); I48.11 Longstanding persistent atrial fibrillation; I11.0 Hypertensive heart disease with heart failure; I50.32 Chronic diastolic (congestive) heart failure; R29.90 Unspecified symptoms and signs involving the nervous system; E55.9 Vitamin D deficiency, unspecified; D35.2 Benign neoplasm of pituitary gland | CPT/HCPCS: 99212; 99213 ==

== ENCOUNTER → 2023-12-13 10:38 | Outpatient (BNVA) | payer MEDICARE, OTHER, SELFPAY | PROVIDERS: PCP Family Medicine; Referring Provider Psychiatry & Neurology Neurology | DX: R41.3 Other amnesia (principal); R56.9 Unspecified convulsions; G93.40 Encephalopathy, unspecified; R41.0 Disorientation, unspecified | CPT/HCPCS: 95816; 95819 ==

== ENCOUNTER → 2024-01-20 13:23 | Outpatient (BNVA) | payer MEDICARE, OTHER, SELFPAY | PROVIDERS: PCP Family Medicine; Visit Provider Psychiatry & Neurology Neurology | DX: R41.3 Other amnesia (principal); I11.0 Hypertensive heart disease with heart failure; I48.11 Longstanding persistent atrial fibrillation; I50.32 Chronic diastolic (congestive) heart failure; R29.90 Unspecified symptoms and signs involving the nervous system; E55.9 Vitamin D deficiency, unspecified; M50.30 Other cervical disc degeneration, unspecified cervical region; M51.369 Other intervertebral disc degeneration, lumbar region without mention of lumbar back pain or lower extremity pain; M25.512 Pain in left shoulder; Z79.01 Long term (current) use of anticoagulants | CPT/HCPCS: 99212; 99213 ==

== ENCOUNTER 2024-01-31 17:51 | Emergency (ER) | payer MEDICARE, OTHER, SELFPAY ==
[2024-01-31 18:10] VITALS: BP 155/63; PULSE 79; RESP 16; O2SAT 95; BMI 20.1
[2024-01-31 18:17] VITALS: TEMP 36.7
--- NOTE | 2024-01-31 18:20 | ED_ITS ---
HPI - Nausea/Vomiting/Diarrhea 2 General: Chief complaint: Nausea/Vomiting/Diarrhea Stated complaint: vommiting, pain in her arms Time Seen by Provider: 01/31/24 18:04 Source: patient Mode of arrival: ambulatory Limitations: no limitations History of Present Illness: 78-year-old female who states that she h ad a tetanus RSV shot over a week ago she been having severe arm pain since that shot states that today she had taken some of her morphine IR for the pain states she has short-term memory loss is concerned she may have taken too much she had some nausea vomiting she has had history of bowel obstructions states she denies any abdominal pain. Patient denies any fevers. Associated nausea: Yes Associated symtoms: Reports nausea; Denies chest pain or headache(s) Related Data Home Medications Medication Instructions Recorded Confirmed carvedilol 6.25 mg tablet (Coreg) 6.25 mg PO BEDTIME 07/16/22 01/21/24 carvedilol 25 mg tablet 12.5 mg PO QAM 02/04/23 01/21/24 amlodipine 2.5 mg tablet (Norvasc) 2.5 mg PO DAILY 03/23/23 01/21/24 polyethylene glycol 3350 17 4 g PO DAILY 12/24/23 01/21/24 gram/dose oral powder (Miralax) Previous Rx's Medication Instructions Recorded apixaban 5 mg tablet (Eliquis) 5 mg PO BID #180 tabs 04/02/23 ondansetron 8 mg disintegrating 8 mg PO .q6 PRN nausea and 08/02/23 tablet vomiting #14 tabs buspirone 5 mg tablet 5 mg PO TID PRN Anxiety #270 tabs 12/24/23 lactulose 10 gram/15 mL (15 mL) 15 ml PO DAILY PRN constipation 12/24/23 oral solution #1,500 mL morphine 15 mg immediate release 15 mg PO TID PRN pain 90 days #10 12/24/23 tablet tabs potassium chloride 10 mEq 10 meq PO DAILY #90 tabs 12/24/23 tablet,extended release (Klor-Con) sertraline 50 mg tablet 50 mg PO DAILY #30 tabs 12/24/23 capsaicin 0.1 % topical cream 1 applic topical TID #56.6 grams 01/21/24 hydrocodone 5 mg-acetaminophen 325 1 tab PO Q6H PRN pain #14 tabs 01/31/24 mg tablet ondansetron 4 mg disintegrating 4 mg PO Q6H PRN nausea and 01/31/24 tablet vomiting #14 tabs Allergies Allergy/AdvReac Type Severity Reaction Status Date / Time azithromycin Allergy ALGY-Anaphy Verified 01/21/24 10:32 laxis Latex, Natural Rubber Allergy ALGY-Rash Verified 01/21/24 10:32 olanzapine [From Zyprexa] Allergy hallucinati Verified 01/21/24 10:32 ons/agitate d lorazepam [From Ativan] AdvReac hallucination, Verified 01/21/24 10:32 agitated Review of Systems 2 Const: Denies: fever(s), chills, body aches or change in appetite ENMT: Denies: throat pain or dental pain Card: Denies: chest pain Resp: Denies: dyspnea GI: Reports: nausea and vomiting; Denies: abdominal pain or diarrhea Musc: Reports: extremity pain; Denies: neck pain or back pain Skin/Breast: Denies: rash Neuro: Denies: headache(s) PFSH ED 2 PFSH: Medical History Pseudodementia Balance problem Depression, major Pain management contract signed Chronic abdominal pain uses morphine only if severe abd pain to keep her out of ER Hx MRSA infection hx of necrotizing fasciitis and hx of MRSA sepsis Hypokalemia Nicotine dependence, cigarettes, with unspecified nicotine-induced disorders Chronic constipation Hx SBO Atrial fibrillation 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 Roberts Hx of abdominal surgery has had total of 13 abd surgeries---most related to bowel obstructions due to adhesions and had complication of bowel laceration with surgery and had infection Hx of appendectomy History of delivery X 1 History of neck surgery History of cholecystectomy H/O hernia repair inguinal; hx of mesh H/O colectomy due to bowel obstruction from adhesions; S/P dilatation of esophageal stricture S/P ANH-BSO endometriosis; no cancer Family History Mother Congestive heart failure (CHF) Rheumatoid arthritis Social History Smoking and tobacco/nicotine status: current every day tobacco/nicotine user cigarettes Packs smoked per day: 0.75 Alcohol intake: never Substance/Drug Use: never Lives independently: No Household members: spouse Marital status: Number of children: 3 Highest education level completed: Bachelor's Degree Current occupational status: retired 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; 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 Physical Exam 2 Const: COMMON NORMALS: no acute distress, patient oriented x3 and healthy appearing HENMT: COMMON NORMALS: normocephalic and atraumatic HEAD & SCALP: n ormocephalic and atraumatic Neck/C-Spine: COMMON NORMALS: full ROM and supple Chest: COMMONS NORMALS: normal inspection of the chest Resp: COMMON NORMALS: normal respiratory effort, No retractions, No use of accessory muscles and clear to auscultation bilaterally AUSCULTATION: clear to auscultation bilaterally Cardio: COMMON NORMALS: regular rate, regular rhythm and No murmurs present (Cardio) RATE: regular rate RHYTHM: regular rhythm GI: COMMON NORMALS: Normal to inspection, nondistended, normoactive bowel sounds present, Soft to palpation, non-tender and no masses PALPATION: Yes Soft to palpation Extremity: COMMON NORMALS: normal to inspection and full ROM Neuro: COMMON NORMALS: patient oriented x3, moves all extremities and no focal motor deficits Psych: COMMON NORMALS: mental status grossly normal, Normal thought process present and cooperative THOUGHT PROCESS: Normal thought process present Skin: COMMON NORMALS: no rashes or lesions noted and no wounds GENERAL SKIN EXAM: no rashes or lesions noted Course 2 Vital Signs: Vital signs: Vital Signs Temperature 98.1 F 01/31/24 18:17 Pulse Rate 73 01/31/24 20:49 Respiratory Rate 16 01/31/24 20:49 Blood Pressure 137/62 01/31/24 20:49 Pulse Oximetry 95 01/31/24 20:49 Oxygen Delivery Me thod Room Air 01/31/24 20:49 MDM - Nausea/Vomiting/Diarrhea Medical Decision Making Patient presents for some vomiting after taking her morphine she also has some left arm pain from her previous tetanus and RSV shot. She has no abdominal pain repeat abdominal exam at discharge benign does have an elevated lipase recommend a CT she refuses she states she feels much improved would like to go home she is to do a liquid diet follow-up with her PCP return to ER if worsening she understands agrees to the plan Medical Records I reviewed the patient's medical records. Lab Data I reviewed the patient's lab results. 01/31/24 19:37 01/31/24 19:37 Laboratory Results WBC 13.95 10^3/uL (3.29-11.43) H 01/31/24 19:37 RBC 4.61 10^6/uL (3.85-5.65) 01/31/24 19:37 Hgb 13.90 g/dL (11.27-16.99) 01/31/24 19:37 Hct 42.7 % (36-47) 01/31/24 19:37 MCV 92.6 fl (85-98) 01/31/24 19:37 MCH 30.2 pg (27-33) 01/31/24 19:37 MCHC 32.6 g/dL (30-55) 01/31/24 19:37 RDW 12.8 % (12.1-15.1) 01/31/24 19:37 Plt Count 243 10^3/cmm (157-399) 01/31/24 19:37 MPV 10.3 fL (7.4-10.4) 01/31/24 19:37 Neut % (Auto) 86.7 % 01/31/24 19:37 Lymph % (Auto) 4.9 % 01/31/24 19:37 [place] % (Auto) 6.9 % 01/31/24 19:37 Eos % (Auto) 0.9 % 01/31/24 19:37 Baso % (Auto) 0.3 % 01/31/24 19:37 Neut # (Auto) 12.09 10^3/uL (1.8-7.7) H 01/31/24 19:37 Lymph # (Auto) 0.7 10^3/uL (0.8-4.8) L 01/31/24 19:37 [place] # (Auto) 1.0 10^3/uL (0.2-0.9) H 01/31/24 19:37 Eos # (Auto) 0.1 10^3/uL (0.0-0.8) 01/31/24 19:37 Baso # (Auto) 0.0 10^3/uL (0.0-0.1) 01/31/24 19:37 Nucleated RBC % (auto) 0 % 01/31/24 19:37 Nucleated RBCs # 0.0 /100WBC 01/31/24 19:37 Sodium 138 mmol/L (136-145) 01/31/24 19:37 Potassium 3.8 mmol/L (3.5-5.1) 01/31/24 19:37 Chloride 102 mmol/L (98-107) 01/31/24 19:37 Carbon Dioxide 25 mmol/L (22-29) 01/31/24 19:37 Anion Gap 14.8 (5-19) 01/31/24 19:37 BUN 15 mg/dL (8-23) 01/31/24 19:37 Creatinine 0.5 mg/dL (0.5-0.9) 01/31/24 19:37 GFR Calculation Not Reportable 01/31/24 19:37 Glucose 129 mg/dL (65-115) H 01/31/24 19:37 Calculated Osmolality 289 mOsm/kg (285-295) 01/31/24 19:37 Calcium 9.1 mg/dL (8.5-10.5) 01/31/24 19:37 Total Bilirubin 0.7 mg/dL (0.15-1.2) 01/31/24 19:37 AST 27 U/L (0-32) 01/31/24 19:37 ALT 17 U/L (0-33) 01/31/24 19:37 Alkaline Phosphatase 108 U/L (35-105) H 01/31/24 19:37 Total Protein 6.4 g/dL (6.6-8.7) L 01/31/24 19:37 Albumin 3.7 g/dL (3.5-5.2) 01/31/24 19:37 Globulin 2.7 g/dL (1.3-4.6) 01/31/24 19:37 Lipase 577 U/L (13-60) H 01/31/24 19:37 All radiology interpretation(s) finalized by discharge EKG Data EKG 1: I personally reviewed and interpreted this EKG as follows: EKG interpretation date: 01/31/24 EKG interpretation time: 18:36 Interpretation: nsr hr [address] elevation qrs 82 qtc 411 Discharge Plan Discharge Patient Disposition: Home Clinical Impression: Vomiting, Arm pain, left Condition: Stable Prescriptions: New hydrocodone-acetaminophen 5-325 mg tablet 1 tab PO Q6H PRN (Reason: pain) Qty: 14 0RF ondansetron 4 mg tablet,disintegrating 4 mg PO Q6H PRN (Reason: nausea and vomiting) Qty: 14 0RF No Action Eliquis 5 mg tablet 5 mg PO BID Qty: 180 3RF polyethylene glycol 3350 [Miralax] 17 gram/dose powder 4 g PO DAILY buspirone 5 mg tablet 5 mg PO TID PRN (Reason: Anxiety) Qty: 270 1RF morphine 15 mg tablet 15 mg PO TID PRN (Reason: pain) 90 Days Qty: 10 0RF lactulose 10 gram/15 mL (15 mL) solution 15 ml PO DAILY PRN (Reason: constipation) Qty: 1500 0RF sertraline 50 mg tablet 50 mg PO DAILY Qty: 30 1RF potassium chloride [Klor-Con 10] 10 mEq tablet extended release 10 meq PO DAILY Qty: 90 3RF capsaicin 0.1 % cream 1 applic topical TID Qty: 56.6 0RF Rx Instructions: do not wash area for at least 30 min after application carvedilol [Coreg] 6.25 mg tablet 6.25 mg PO BEDTIME amlodipine [Norvasc] 2.5 mg tablet 2.5 mg PO DAILY carvedilol 25 mg tablet 12.5 mg PO QAM ondansetron 8 mg tablet,disintegrating 8 mg PO .q6 PRN (Reason: nausea and vomiting) Qty: 14 0RF Discharge Orders: Discharge ED (Routine); Ordered 01/31/24 Ordered By: Austen Martinez Referrals: Anna Gomez MD [Primary Care Provider] - 4-7 days Discharge Diet: Advance as tolerated Discharge Activity: Resume usual activity Patient Instructions: Acute Nausea and Vomiting (ED), Opioid Safety Coding Level of Care Code ED Marketing Communications Specialist for Chg Fwtia
--- NOTE | 2024-01-31 18:22 | ECG_ITS ---
[facility] [place] [facility] Date: 2024-01-31 Pat Name: Anju Duffy Department: Room: Gender: Female Recruiting Specialist: : [id number] Requested By: Austen Martinez Order Number: [id number] Lindsay MD: Ayush Johnson M.D. Measurements Intervals [place] Rate: 71 P: 66 NV: 176 QRS: 75 QRSD: 82 T: 30 QT: 389 QTc: 423 Interpretive Statements SINUS RHYTHM Compared to ECG 10/05/2023 12:50:16 No significant changes Electronically Signed On 02-01-2024 10:20:13 TUFTING MACHINE OPERATOR by Ayush Johnson M.D. [id number]
[2024-01-31 19:12] VITALS: BP 121/56; PULSE 75; RESP 16; O2SAT 96
[2024-01-31 19:43] LABS: Basophils % 0.3 %; Eosinophils # 0.1 10^3/uL (0.0-0.8); Eosinophils % 0.9 %; Hematocrit 42.7 % (36-47); Lymphocytes # 0.7 10^3/uL (0.8-4.8); Lymphocytes % 4.9 %; Mean Corpuscular HGB Conc 32.6 g/dL (30-55); Mean Corpuscular Hemoglobin 30.2 pg (27-33); Mean Corpuscular Volume 92.6 fl (85-98); Mean Platelet Volume 10.3 fL (7.4-10.4); Monocytes % 6.9 %; Neutrophils # 12.09 10^3/uL (1.8-7.7); Neutrophils % 86.7 %; Nucleated Red Blood Cells % 0 %; Platelet Count 243 10^3/cmm (157-399); Red Blood Count 4.61 10^6/uL (3.85-5.65); Red Cell Distribution Width 12.8 % (12.1-15.1); White Blood Count 13.95 10^3/uL (3.29-11.43)
[2024-01-31 20:02] LABS: Alanine Aminotransferase 17 U/L (0-33); Albumin Level 3.7 g/dL (3.5-5.2); Alkaline Phosphatase 108 U/L (35-105); Anion Gap 14.8 (5-19); Aspartate Amino Transferase 27 U/L (0-32); Blood Urea Nitrogen 15 mg/dL (8-23); Calcium 9.1 mg/dL (8.5-10.5); Carbon Dioxide 25 mmol/L (22-29); Chloride 102 mmol/L (98-107); Creatinine Clr Calc Pharmacy 47.2392; Globulin 2.7 g/dL (1.3-4.6); Glucose 129 mg/dL (65-115); Osmolality Calculated 289 mOsm/kg (285-295); Potassium 3.8 mmol/L (3.5-5.1); Sodium 138 mmol/L (136-145); Total Bilirubin 0.7 mg/dL (0.15-1.2); Total Protein 6.4 g/dL (6.6-8.7)
[2024-01-31 20:11] LABS: Lipase 577 U/L (13-60)
[2024-01-31] MEDS: ketorolac 30 mg/mL INJ IM (20:44)
[2024-01-31] MEDS: ondansetron 2 mg/ML SDV 2 mL 4 MG IM (20:45)
[2024-01-31 20:49] VITALS: BP 137/62; PULSE 73; RESP 16; O2SAT 95
[2024-01-31 21:12] VITALS: BP 137/59; PULSE 68; RESP 12; O2SAT 94
== END 2024-01-31 21:14 | disposition home or self-care (01) ==
PROVIDERS: Emergency Provider Emergency Medicine; PCP Family Medicine
DX: R11.10 Vomiting, unspecified (principal); M79.602 Pain in left arm; Z79.01 Long term (current) use of anticoagulants; F17.210 Nicotine dependence, cigarettes, uncomplicated; I10 Essential (primary) hypertension
CPT/HCPCS: 80053; 83690; 85025; 93005; 96372; 99284; J1885; J2405

== ENCOUNTER 2024-02-12 17:22 | Outpatient (CLI) | payer MEDICARE, OTHER, SELFPAY ==
--- NOTE | 2024-02-12 18:00 | USR_ITS ---
PROCEDURE INFORMATION: Exam: US Left Limited Joint or Other Non-Vascular Extremity Structure Exam date and time: 02/12/2024 5:34 PM Age: 78 years old Clinical indication: Pain; Upper arm; Left; Additional info: Left upper arm pain after vaccine TECHNIQUE: Imaging protocol: US left limited joint or other nonvascular extremity structure. Real-time ultrasound with image documentation. Exam focused on the area of clinical interest. COMPARISON: CT abdomen pelvis w con* [id number] 10/06/2023 8:53 PM FINDINGS: Soft tissues: Unremarkable. No loculated collections. No masses. US/US soft tissue/extremity [id number] IMPRESSION: Unremarkable US.
== END 2024-02-12 17:23 | disposition home or self-care (01) ==
LOC: RAD 17:23
PROVIDERS: PCP Family Medicine; Visit Provider Family Medicine
DX: M79.622 Pain in left upper arm (principal)
CPT/HCPCS: 76882

== ENCOUNTER 2024-03-27 17:49 | Emergency (ER) | payer MEDICARE, OTHER, SELFPAY ==
[2024-03-27] VITALS (10 sets, daily range): BP systolic 130–186; BP diastolic 72–88; PULSE 63–81; RESP 16–17; TEMP 36.7; O2SAT 97–99; BMI 24.3
--- NOTE | 2024-03-27 18:24 | CTR_ITS ---
PROCEDURE INFORMATION: Exam: CT Head Without Contrast Exam date and time: 03/27/2024 9:29 PM Age: 79 years old Clinical indication: Injury or trauma; Blunt trauma (contusions or hematomas); Patient HX: Patient sustained a fall yesterday with headstrike. Hematoma to frontal with bilateral orbital contusions. Anticoagulated. ; Additional info: Fall, head trauma, is on blood thinners TECHNIQUE: Imaging protocol: Computed tomography of the head without contrast. Radiation optimization: All CT scans at this facility use at least one of these dose optimization techniques: automated exposure control; mA and/or kV adjustment per patient size (includes targeted exams where dose is matched to clinical indication); or iterative reconstruction. COMPARISON: CT head wo con* [id number] 02/27/2021 2:31 AM RADIATION DOSE METRICS: Total DLP (mGy-cm): 993.26 FINDINGS: Brain: Similar mild generalized cortical volume loss. No hemorrhage. Mild periventricular and subcortical white matter hypodensities likely represent chronic small vessel ischemic changes. No mass effect. Intracranial vascular calcifications. Cerebral ventricles: No ventriculomegaly. Paranasal sinuses: Visualized sinuses are unremarkable. No fluid levels. Mastoid air cells: Visualized mastoid air cells are well aerated. Bones: Hyperostosis frontalis. No acute fracture. Soft tissues: Frontal scalp contusion with small hematomas. Contusion extends into the supraorbital regions bilaterally. CT/CT head wo con* [id number] IMPRESSION: 1. No acute intracranial abnormality. 2. Frontal scalp contusion with areas of hematoma extending into the supraorbital soft tissues bilaterally.
--- NOTE | 2024-03-27 21:12 | XRR_ITS ---
PROCEDURE INFORMATION: Exam: XR Right Knee Exam date and time: 03/27/2024 9:19 PM Age: 79 years old Clinical indication: Right; Patient HX: RT knee pain post fall TECHNIQUE: Imaging protocol: Radiologic exam of the right knee. Views: 3 views. COMPARISON: No relevant prior studies available. FINDINGS: Bones/joints: No acute fracture or dislocation. Tricompartmental degenerative changes with marginal osteophytes and joint space narrowing, most pronounced in the medial compartment. Small superior patellar enthesophyte. Small joint effusion. Soft tissues: Soft tissue swelling along the anterior lower leg. Vasculature: Scattered vascular calcifications. XR/XR knee RT 3V* [id number] IMPRESSION: 1. No acute osseous findings. 2. Small joint effusion. 3. Mild soft tissue swelling anteriorly.
--- NOTE | 2024-03-27 21:14 | W.ED.HEATRA ---
HPI - Head Injury General: Chief complaint: Head Injury Stated complaint: fall Time Seen by Provider: 03/27/24 21:06 History of Present Illness: Patient fell yesterday while out walking her dogs landed on her face and right knee. Patient has swelling and hematomas on her superior forehead and ecchymosis down through her eyes that are almost swollen shut down into her cheeks. Patient says this only hurts minimally. Patient is on Eliquis. Patient did not lose consciousness. She also hurts in her right lateral knee. But she is able to bear weight. Patient did not lose consciousness. Related Data Home Medications Medication Instructions Recorded Confirmed polyethylene glycol 3350 17 4 g PO DAILY 12/24/23 03/02/24 gram/dose oral powder (Miralax) Previous Rx's Medication Instructions Recorded apixaban 5 mg tablet (Eliquis) 5 mg PO BID #180 tabs 04/02/23 lactulose 10 gram/15 mL (15 mL) 15 ml PO DAILY PRN constipation 12/24/23 oral solution #1,500 mL morphine 15 mg immediate release 15 mg PO TID PRN pain 90 days #10 12/24/23 tablet tabs potassium chloride 10 mEq 10 meq PO DAILY #90 tabs 12/24/23 tablet,extended release (Klor-Con) capsaicin 0.1 % topical cream 1 applic topical TID #56.6 grams 01/21/24 hydrocodone 5 mg-acetaminophen 325 1 tab PO Q6H PRN pain #14 tabs 01/31/24 mg tablet ondansetron 4 mg disintegrating 4 mg PO Q6H PRN nausea and 01/31/24 tablet vomiting #14 tabs tramadol 50 mg tablet 50 mg PO BID PRN pain #60 tabs 02/12/24 carvedilol 6.25 mg tablet (Coreg) 6.25 mg PO BEDTIME #90 tabs 02/25/24 buspirone 5 mg tablet 5 mg PO BID Anxiety #180 tabs 03/02/24 carvedilol 25 mg tablet 12.5 mg (1/2 x 25 mg) PO QAM #45 03/02/24 tabs sertraline 25 mg tablet 25 mg PO DAILY #90 tabs 03/02/24 amlodipine 2.5 mg tablet (Norvasc) 2.5 mg PO DAILY #90 tabs 03/16/24 Allergies Allergy/AdvReac Type Severity Reaction Status Date / Time azithromycin Allergy ALGY-Anaphy Verified 03/02/24 13:02 laxis Latex, Natural Rubber Allergy ALGY-Rash Verified 03/02/24 13:02 olanzapine [From Zyprexa] Allergy hallucinati Verified 03/02/24 13:02 ons/agitate d lorazepam [From Ativan] AdvReac hallucination, Verified 03/02/24 13:02 agitated Review of Systems General: Reports: 10 or more systems reviewed and unremarkable except in HPI and below PFSH ED PFSH: Medical History Left shoulder pain Left upper arm pain after immunization given fall 2023 at [facility] Balance problem Depression, major Pain management contract signed Chronic abdominal pain uses morphine only if severe abd pain to keep her out of ER Hx MRSA infection hx of necrotizing fasciitis and hx of MRSA sepsis Hypokalemia Nicotine dependence, cigarettes, with unspecified nicotine-induced disorders Chronic constipation Hx SBO Atrial fibrillation 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 Roberts Hx of abdominal surgery has had total of 13 abd surgeries---most related to bowel obstructions due to adhesions and had complication of bowel laceration with surgery and had infection Hx of appendectomy History of delivery X 1 History of neck surgery History of cholecystectomy H/O hernia repair inguinal; hx of mesh H/O colectomy due to bowel obstruction from adhesions; S/P dilatation of esophageal stricture S/P ANH-BSO endometriosis; no cancer Family History Mother Congestive heart failure (CHF) Rheumatoid arthritis Social History Smoking and tobacco/nicotine status: current every day tobacco/nicotine user cigarettes Packs smoked per day: 0.75 Alcohol intake: never Substance/Drug Use: never Lives independently: No Household members: spouse Marital status: Number of children: 3 Highest education level completed: Bachelor's Degree Current occupational status: retired 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 Eye: COMMON NORMALS: Equal, round and reactive pupils present, EOMs intact bilaterally, conjunctivae normal and no scleral icterus CONJUNCTIVA: Yes conjunctivae normal PUPIL: Yes Equal, round and reactive pupils present Neck/C-Spine: COMMON NORMALS: full ROM, no lymphadenopathy, supple, no meningeal signs, no JVD and Thyroid normal THYROID: Thyroid normal Chest: COMMONS NORMALS: normal inspection of the chest and normal palpation of entire chest wall Resp: COMMON NORMALS: normal respiratory effort, No retractions, No use of accessory muscles and clear to auscultation bilaterally AUSCULTATION: clear to auscultation bilaterally Cardio: COMMON NORMALS: no JVD, regular rate, regular rhythm, S1 normal heart sound present, S2 normal heart sound present, No gallops present (Cardio), No clicks present (Cardio), No murmurs present (Cardio) and No rub (Cardio) RATE: regular rate RHYTHM: regular rhythm HEART SOUNDS: S1 normal heart sound present and S2 normal heart sound present GI: COMMON NORMALS: Normal to inspection, nondistended, normoactive bowel sounds present, Soft to palpation, non-tender, No hepatosplenomegaly present and no masses PALPATION: Yes Soft to palpation and Yes No hepatosplenomegaly present Extremity: NARRATIVE EXTREMITY EXAM: Tenderness to palpation right lateral knee, mild swelling, no obvious deformity crepitus. Neuro: COMMON NORMALS: patient oriented x3 SENSORIUM/ORIENTATION: Yes alert MENINGEAL SIGNS: Yes no meningeal signs Course Vital Signs: Vital signs: Vital Signs Temperature 98.0 F 03/27/24 18:17 Pulse Rate 81 03/27/24 18:17 Respiratory Rate 17 03/27/24 18:17 Blood Pressure 130/88 03/27/24 22:00 Pulse Oximetry 97 03/27/24 22:15 Oxygen Delivery Me thod Room Air 03/27/24 18:17 MDM - Head Injury Medcial Decision Making X-ray right knee was negative for acute osseous findings as well as head CT negative for acute intracranial abnormality, positive for scalp hematoma and contusion. These results was discussed with the patient and . Patient be discharged home. Medical Records I reviewed the patient's medical records. Lab Data I reviewed the patient's lab results. Radiology Impressions Head CT 03/27/24 18:24 IMPRESSION: 1. No acute intracranial abnormality. 2. Frontal scalp contusion with areas of hematoma extending into the supraorbital soft tissues bilaterally. Knee X-Ray 03/27/24 21:12 IMPRESSION: 1. No acute osseous findings. 2. Small joint effusion. 3. Mild soft tissue swelling anteriorly. All radiology interpretation(s) finalized by discharge Discharge Plan Discharge Patient Disposition: Home Clinical Impression: Fall, Contusion of face Condition: Stable Prescriptions: No Action Eliquis 5 mg tablet 5 mg PO BID Qty: 180 3RF buspirone 5 mg tablet 5 mg PO BID Qty: 180 1RF carvedilol 25 mg tablet 12.5 mg PO QAM Qty: 45 3RF sertraline 25 mg tablet 25 mg PO DAILY Qty: 90 3RF polyethylene glycol 3350 [Miralax] 17 gram/dose powder 4 g PO DAILY morphine 15 mg tablet 15 mg PO TID PRN (Reason: pain) 90 Days Qty: 10 0RF lactulose 10 gram/15 mL (15 mL) solution 15 ml PO DAILY PRN (Reason: constipation) Qty: 1500 0RF potassium chloride [Klor-Con 10] 10 mEq tablet extended release 10 meq PO DAILY Qty: 90 3RF capsaicin 0.1 % cream 1 applic topical TID Qty: 56.6 0RF Rx Instructions: do not wash area for at least 30 min after application tramadol 50 mg tablet 50 mg PO BID PRN (Reason: pain) Qty: 60 0RF carvedilol [Coreg] 6.25 mg tablet 6.25 mg PO BEDTIME Qty: 90 0RF amlodipine [Norvasc] 2.5 mg tablet 2.5 mg PO DAILY Qty: 90 3RF hydrocodone-acetaminophen 5-325 mg tablet 1 tab PO Q6H PRN (Reason: pain) Qty: 14 0RF ondansetron 4 mg tablet,disintegrating 4 mg PO Q6H PRN (Reason: nausea and vomiting) Qty: 14 0RF Discharge Orders: Discharge ED (Routine); Ordered 03/27/24 Ordered By: Ab Weston Referrals: Anna Gomez MD [Primary Care Provider] - 1 week Patient Instructions: Black Eye (ED), Facial Contusion (ED) Activity Restrictions/Additional Instructions: Thank you for choosing [facility] for your healthcare needs today. Please realize that you were seen in the emergency department and that we are providing you with an emergency medical screening exam and this may not be a complete and all exclusive of all testing and/or medical workup we may need to determine your element or severity of your illness. It is very important that you follow-up as instructed with your primary care provider or specialist for the additional evaluation and to discuss your medical treatment plan. You may return to the emergency department should you have concerns or if your condition changes or worsens in any way. Coding Level of Care Code ED Commissary Worker for Tad Sanderson
[2024-03-27] MEDS: cloNIDine 0.1 mg Tablet PO (22:52)
== END 2024-03-27 23:07 | disposition home or self-care (01) ==
PROVIDERS: Emergency Provider Emergency Medicine; PCP Family Medicine
DX: S00.83XA Contusion of other part of head, initial encounter (principal); W19.XXXA Unspecified fall, initial encounter; F17.210 Nicotine dependence, cigarettes, uncomplicated; I10 Essential (primary) hypertension
CPT/HCPCS: 70450; 73562; 99284

== ENCOUNTER → 2024-06-09 15:30 | Outpatient (BNVA) | payer MEDICARE, OTHER, SELFPAY | PROVIDERS: PCP Family Medicine; Visit Provider Psychiatry & Neurology Neurology | DX: R41.3 Other amnesia (principal); I10 Essential (primary) hypertension; I48.11 Longstanding persistent atrial fibrillation; I50.32 Chronic diastolic (congestive) heart failure; R29.90 Unspecified symptoms and signs involving the nervous system; E55.9 Vitamin D deficiency, unspecified; R41.89 Other symptoms and signs involving cognitive functions and awareness | CPT/HCPCS: 0346U; 36415; 83520; 99212 ==

== ENCOUNTER 2024-06-23 11:25 | Outpatient (CLI) | payer MEDICARE, OTHER, SELFPAY ==
--- NOTE | 2024-06-23 11:45 | MR_ITS ---
WS: [id number] MRI of the head without and with gadolinium enhancement. Pituitary protocol utilized. INDICATION: Microadenoma TECHNIQUE: TECHNIQUE: Diffusion-weighted imaging, axial T2 sequence, and postcontrast images in 3 planes are performed. High-resolution coronal and sagittal imaging performed through the pituitary region with and without intravenous gadolinium. Dynamic pituitary imaging performed. FINDINGS: No evidence of restricted diffusion to suggest acute ischemia. Ventricular system and basilar cisterns are patent. No hemosiderin on the susceptibility weighted images. Mild small vessel changes. Normal posterior fossa. Normal vascular flow voids at the skull base. No extra-axial fluid collec tions. Tiny chronic lacunar infarct LEFT doll radiata. Mild mucosal thickening in the ethmoid air cells. Mastoid air cells are well aerated. Again seen is the hypoenhancing midline pituitary microadenoma measuring 6 x 4 mm in the dorsal pituitary. This is unchanged compared to previous. This slightly abuts the infundibulum. Normal optic chiasm. Additional tiny cyst in the anterior pituitary is unchanged. Overall enlargement of the pituitary with mild suprasellar extension unchanged. Recommend correlation with pituitary function studies. No evidence of progression. No other acute findings. MR/MR pituitary wo/w con* [id number] IMPRESSION: 1. Again seen is the hypoenhancing pituitary microadenoma measuring 6 x 4 mm u nchanged from previous with overall enlargement of the pituitary with mild supr asellar extension unchanged. Recommend correlation with pituitary function stud ies.. 2. Normal optic chiasm. 3. Mild small vessel changes with mild parenchymal volume loss. 4. No hemosiderin.
== END 2024-06-23 11:26 | disposition home or self-care (01) ==
PROVIDERS: PCP Family Medicine; Visit Provider Psychiatry & Neurology Neurology
DX: R41.89 Other symptoms and signs involving cognitive functions and awareness (principal); R41.3 Other amnesia; R93.0 Abnormal findings on diagnostic imaging of skull and head, not elsewhere classified
CPT/HCPCS: 70553

== ENCOUNTER → 2024-06-24 13:50 | Outpatient (BNVA) | payer MEDICARE, OTHER, SELFPAY | PROVIDERS: PCP Family Medicine; Visit Provider Internal Medicine Cardiovascular Disease | DX: I48.11 Longstanding persistent atrial fibrillation (principal); I11.0 Hypertensive heart disease with heart failure; I50.32 Chronic diastolic (congestive) heart failure; G30.9 Alzheimer's disease, unspecified; F02.80 Dementia in other diseases classified elsewhere, unspecified severity, without behavioral disturbance, psychotic disturbance, mood disturbance, and anxiety; F17.210 Nicotine dependence, cigarettes, uncomplicated | CPT/HCPCS: 99214 ==

== ENCOUNTER 2024-07-05 21:48 | Inpatient (IN) | payer MEDICARE, OTHER, SELFPAY ==
--- NOTE | 2024-07-05 22:09 | CTR_ITS ---
PROCEDURE INFORMATION: Exam: CT Abdomen And Pelvis Without Contrast Exam date and time: 07/06/2024 12:56 AM Age: 79 years old Clinical indication: Nausea and vomiting; Abdominal pain; Generalized; Prior surgery; Surgery date: 6+ months; Surgery type: Gb. Hernia repair. Small bowel resection. Partial colectomy. Hysterectomy. C/O diffuse abd pain with n/v. History of recurrent sbo. ; Additional info: HX of sbo TECHNIQUE: Imaging protocol: Computed tomography of the abdomen and pelvis without contrast. Radiation optimization: All CT scans at this facility use at least one of these dose optimization techniques: automated exposure control; mA and/or kV adjustment per patient size (includes targeted exams where dose is matched to clinical indication); or iterative reconstruction. COMPARISON: CT abdomen pelvis w con* [id number] 10/06/2023 8:53 PM RADIATION DOSE METRICS: Total DLP (mGy-cm): 383.6 FINDINGS: Lungs: Clear basilar lung parenchyma. Pleural spaces: No pleural fluid. Heart: Normal heart size. Liver: Homogeneous liver parenchyma. Dilated intrahepatic biliary tree with pneumobilia is similar to prior. Gallbladder and biliary ducts: Pneumobilia is similar to prior. Unchanged dilation of the extrahepatic common duct without visible filling defect. Prior cholecystectomy. Pancreas: No pancreatic edema or ductal dilation. No obvious pancreatic contour deformity. Spleen: Spleen is normal in size with several calcified granulomata. Adrenal glands: Normal configuration. Kidneys and ureters: Kidneys are symmetric without evidence obstruction. A left renal nodule measures 1.5 cm in diameter with attenuation coefficient of 23 Hounsfield units. Stomach and bowel: Postprandial stomach is distended with ingested material and gas. Proximal small bowel is normal in caliber, but bowel increases in diameter as it progresses distally without discrete transition point. There is a patent ileocolic anastomosis. Very large volume fecal debris noted throughout the colon. No bowel wall pneumatosis. Appendix: Appendix is surgically absent. Intraperitoneal space: No free air. No significant fluid collection. Vasculature: Dense aortoiliac calcific atherosclerosis without aneurysm. No portal venous gas. Lymph nodes: No enlarged lymph nodes. Urinary bladder: Unremarkable as visualized. Reproductive: Prior hysterectomy. No evidence of vaginal cuff or adnexal mass. Bones/joints: No acute fracture or destructive bony lesion. There is mild spinal degenerative change. Mild bilateral hip arthropathy noted. Soft tissues: Unremarkable. CT/CT abdomen pelvis wo con [id number] IMPRESSION: 1. Large volume fecal debris noted throughout colon. Air-fluid levels are noted in mildly dilated small bowel without transition point, potentially representing ileus secondary to constipation. Given patient's history of recurrent small bowel obstructions, it may be helpful to proceed with enteral Gastrografin administration. Alternatively, strategy could include colon evacuation. 2. Indeterminate left renal nodule has increased in size compared to the prior exam. Consider non emergent renal mass protocol CT or MR. COMMENTS: Consistent with the [employer]'s Incidental Findings Committee white paper (J Am Patricia Radiol 2018): Any incidental renal lesion less than 1 cm or classified as too small to characterize, or any incidental cystic renal lesion characterized as simple-appearing, is likely benign. No follow-up imaging is recommended for these lesions per consensus recommendations based on imaging criteria.
--- NOTE | 2024-07-05 22:38 | W.ED.ABDPA2 ---
Documented by User: PILAR Villarreal 07/06/24 02:47 HPI - Abdominal Pain General: Chief Complaint: Abdominal Pain Stated Complaint: V Possible Bowel Blockage Time Seen by Provider: 07/05/24 22:37 Source: patient and family Mode of arrival: wheelchair Limitations: no limitations History of Present Illness: Patient is a 79-year-old female presents to ED today with complaint of severe abdominal pain. She states she has a longstanding history of previous abdominal surgeries and subsequent bowel obstructions. She states that all started following a hernia mesh repair. Since then she has had multiple abdominal surgeries and lysis of adhesions. She has had multiple previous bowel obstructions. Has been states most of these have resolved with admission, conservative therapy, and NG tube. Patient states she is not having any vomiting. She does report passing stool and gas. MD elicited complaint: abdominal pain Pertinent past history: other (bowel obstruction, bowel resection) Onset (ago): hour(s) Pain Consistency: constant Location: Diffuse Severity: severe Quality: stabbing and sharp Radiation: none Migration to: no migration Exacerbating factors: nothing Relieving factors: nothing Associated Symptoms: Reports no associated symptoms and nausea; Denies chills, diarrhea, fever(s) and vomiting Related Data Home Medications ?Medication ?Instructions ?Recorded ?Confirmed polyethylene glycol 3350 17 4 g PO DAILY 12/24/23 07/01/24 gram/dose oral powder (Miralax) Previous Rx's ?Medication ?Instructions ?Recorded morphine 15 mg immediate release 15 mg PO TID PRN pain 90 days #10 12/24/23 tablet tabs potassium chloride 10 mEq 10 meq PO DAILY #90 tabs 12/24/23 tablet,extended release (Klor-Con) hydrocodone 5 mg-acetaminophen 325 1 tab PO Q6H PRN pain #14 tabs 01/31/24 mg tablet ondansetron 4 mg disintegrating 4 mg PO Q6H PRN nausea and 01/31/24 tablet vomiting #14 tabs buspirone 5 mg tablet 5 mg PO BID Anxiety #180 tabs 03/02/24 carvedilol 25 mg tablet 12.5 mg (1/2 x 25 mg) PO QAM #45 03/02/24 tabs amlodipine 2.5 mg tablet (Norvasc) 2.5 mg PO DAILY #90 tabs 03/16/24 apixaban 5 mg tablet (Eliquis) 5 mg PO BID #180 tabs 04/20/24 carvedilol 6.25 mg tablet (Coreg) 6.25 mg PO BEDTIME #90 tabs 05/24/24 Allergies Allergy/AdvReac Type Severity Reaction Status Date / Time azithromycin Allergy ALGY-Anaphy Verified 07/05/24 22:34 laxis Latex, Natural Rubber Allergy ALGY-Rash Verified 07/05/24 22:34 olanzapine (From Zyprexa) Allergy hallucinati Verified 07/05/24 22:34 ons/agitate d lorazepam (From Ativan) AdvReac hallucination, Verified 07/05/24 22:34 agitated Review of Systems Const: Denies: fever(s), chills, body aches, fatigue or malaise Card: Denies: chest pain Resp: Denies: dyspnea GI: Reports: abdominal pain and nausea; Denies: vomiting or diarrhea Musc: Denies: neck pain, back pain, extremity pain, extremity swelling or joint swelling Skin/Breast: Denies: rash Neuro: Denies: headache(s), numbness in extremities, weakness in extremities, sensory changes or dizziness [facility] ED PFSH: Medical History Left shoulder pain Left upper arm pain after immunization given fall 2023 at [facility] Balance problem Depression, major Pain management contract signed Chronic abdominal pain uses morphine only if severe abd pain to keep her out of ER Hx MRSA infection hx of necrotizing fasciitis and hx of MRSA sepsis Hypokalemia Nicotine dependence, cigarettes, with unspecified nicotine-induced disorders Chronic constipation Hx SBO Atrial fibrillation 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 Roberts Hx of abdominal surgery has had total of 13 abd surgeries---most related to bowel obstructions due to adhesions and had complication of bowel laceration with surgery and had infection Hx of appendectomy History of delivery X 1 History of neck surgery History of cholecystectomy H/O hernia repair inguinal; hx of mesh H/O colectomy due to bowel obstruction from adhesions; S/P dilatation of esophageal stricture S/P ANH-BSO endometriosis; no cancer Family History Mother Congestive heart failure (CHF) Rheumatoid arthritis Social History Smoking and tobacco/nicotine status: current every day tobacco/nicotine user cigarettes Packs smoked per day: 0.75 Alcohol intake: never Substance/Drug Use: never Lives independently: No Household members: spouse Marital status: Number of children: 3 Highest education level completed: Bachelor's Degree Current occupational status: retired 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; 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[employer] Physical Exam Const: COMMON NORMALS: average body habitus, patient oriented x3, no limitations, healthy appearing, alert and well nourished GENERAL APPEARANCE: cooperative and in distress (due to pain) OTHER: nauseous Resp: COMMON NORMALS: normal respiratory effort and clear to auscultation bilaterally AUSCULTATION: clear to auscultation bilaterally Cardio: COMMON NORMALS: regular rate and regular rhythm RATE: regular rate RHYTHM: regular rhythm GI: INSPECTION: Yes normal to inspection AUSCULTATION: Yes Absent bowel sounds PALPATION: Yes Tenderness to palpation present (GI) (diffuse) and Yes Guarding due to palpation present (GI) : COMMON NORMALS: Yes no CVA tenderness BLADDER/KIDNEY EXAM: Yes no CVA tenderness Back/Pelvis: COMMON NORMALS: no CVA tenderness Neuro: COMMON NORMALS: patient oriented x3 SENSORIUM/ORIENTATION: Yes alert Course Consultations: Consultation #1: Dr. Degroot-recommending NG tube, IV fluids, will consult patient Consultation #2: Dr. Nicholas-accepts hospitalization Vital Signs: Vital signs: Vital Signs Pulse Rate 87 07/06/24 01:40 Respiratory Rate 18 07/06/24 03:03 Blood Pressure 162/113 07/06/24 01:40 Pulse Oximetry 97 07/06/24 01:40 Oxygen Delivery Me thod Nasal Cannula 07/06/24 01:40 Oxygen Flow Rate 2 07/06/24 01:40 MDM - Abdominal Pain Medical Decision Making Patient here for severe diffuse abdominal pain. She was initially complaining of nausea but had not had any episodes of emesis however during her stay she has filled approximately 2 emesis bags. Bowel sounds are hypoactive/absent. CT scan showing large volume fecal debris without obvious transition point-etiologies could include ileus secondary to severe constipation however given her history of recurrent small bowel obstructions, radiologist stated it may be helpful to proceed with enteral gastrografin administration. Spoke with general surgeon Dr. Degroot who recommended treating patient for SBO given her symptoms and presentation. Recommending NG tube, fluids, admit to hospitalist and he will consult on patient in the morning. Spoke to Dr. Nicholas who will admit. Medical Records I reviewed the patient's medical records. Lab Data I reviewed the patient's lab results. 07/05/24 23:26 07/05/24 23:26 Labs/Radiology: Radiology Impressions Abdomen/Pelvis CT 07/05/24 22:09 IMPRESSION: 1. Large volume fecal debris noted throughout colon. Air-fluid levels are noted in mildly dilated small bowel without transition point, potentially representing ileus secondary to constipation. Given patient's history of recurrent small bowel obstructions, it may be helpful to proceed with enteral Gastrografin administration. Alternatively, strategy could include colon evacuation. 2. Indeterminate left renal nodule has increased in size compared to the prior exam. Consider non emergent renal mass protocol CT or MR. COMMENTS: Consistent with the [employer]'s Incidental Findings Committee white paper (J Am Patricia Radiol 2018): Any incidental renal lesion less than 1 cm or classified as too small to characterize, or any incidental cystic renal lesion characterized as simple-appearing, is likely benign. No follow-up imaging is recommended for these lesions per consensus recommendations based on imaging criteria. Laboratory Results WBC 10.18 10^3/uL (3.29-11.43) 07/05/24: RBC 5.38 10^6/uL (3.85-5.65) 07/05/24: Hgb 16.60 g/dL (11.27-16.99) 07/05/24: Hct 50.1 % (36-47) H 07/05/24: MCV 93.1 fl (85-98) 07/05/24: MCH 30.9 pg (27-33) 07/05/24: MCHC 33.1 g/dL (30-55) 07/05/24 23: RDW 13.1 % (12.1-15.1) 07/05/24 23: Plt Count 198 10^3/cmm (157-399) 07/05/24 23: MPV 10.8 fL (7.4-10.4) H 07/05/24 23:26 Neut % (Auto) 58.7 % 07/05/24 23:26 Lymph % (Auto) 28.2 % 07/05/24 23:26 [place] % (Auto) 9.1 % 07/05/24 23: Eos % (Auto) 2.9 % 07/05/24 23:26 Baso % (Auto) 0.7 % 07/05/24 23: Neut # (Auto) 5.97 10^3/uL (1.8-7.7) 07/05/24 23: Lymph # (Auto) 2.9 10^3/uL (0.8-4.8) 07/05/24 23: [place] # (Auto) 0.9 10^3/uL (0.2-0.9) 07/05/24 23: Eos # (Auto) 0.3 10^3/uL (0.0-0.8) 07/05/24 23: Baso # (Auto) 0.1 10^3/uL (0.0-0.1) 07/05/24 23: Nucleated RBC % (auto) 0 % 07/05/24 23: Nucleated RBCs # 0.0 /100WBC 07/05/24 23:26 Sodium 142 mmol/L (136-145) 07/05/24 23: Potassium 3.6 mmol/L (3.5-5.1) 07/05/24 23: Chloride 104 mmol/L (98-107) 07/05/24 23: Carbon Dioxide 25 mmol/L (22-29) 07/05/24 23: Anion Gap 16.6 (5-19) 07/05/24 23: BUN 11 mg/dL (8-23) 07/05/24 23: Creatinine 0.7 mg/dL (0.5-0.9) 07/05/24 23:26 GFR Calculation Not Reportable 07/05/24 23: Glucose 115 mg/dL (65-115) 07/05/24 23:26 Calculated Osmolality 294 mOsm/kg (285-295) 07/05/24 23:26 Calcium 10.3 mg/dL (8.5-10.5) 07/05/24 23:26 Total Bilirubin 0.8 mg/dL (0.15-1.2) 07/05/24 23:26 AST 26 U/L (0-32) 07/05/24 23:26 ALT 18 U/L (0-33) 07/05/24 23:26 Alkaline Phosphatase 86 U/L (35-105) 07/05/24 23:26 Total Protein 7.7 g/dL (6.6-8.7) 07/05/24 23:26 Albumin 4.8 g/dL (3.5-5.2) 07/05/24 23:26 Globulin 2.9 g/dL (1.3-4.6) 07/05/24 23:26 Lipase 33 U/L (13-60) 07/05/24 23:26 All radiology interpretation(s) finalized by discharge Discharge Plan Discharge Patient Disposition: Placed in Observation Admit Provider: Pietro Nicholas Clinical Impression: SBO (small bowel obstruction) Coding Level of Care Code ED System Programmer for Chg Fwd Documented by User: Gareth Messina DO 07/06/24 04:29 HPI - Abdominal Pain General: Chief Complaint: Abdominal Pain Stated Complaint: V Possible Bowel Blockage Time Seen by Provider: 07/05/24 22:37 Related Data Home Medications ?Medication ?Instructions ?Recorded ?Confirmed polyethylene glycol 3350 17 4 g PO DAILY 12/24/23 07/01/24 gram/dose oral powder (Miralax) Previous Rx's ?Medication ?Instructions ?Recorded morphine 15 mg immediate release 15 mg PO TID PRN pain 90 days #10 12/24/23 tablet tabs potassium chloride 10 mEq 10 meq PO DAILY #90 tabs 12/24/23 tablet,extended release (Klor-Con) hydrocodone 5 mg-acetaminophen 325 1 tab PO Q6H PRN pain #14 tabs 01/31/24 mg tablet ondansetron 4 mg disintegrating 4 mg PO Q6H PRN nausea and 01/31/24 tablet vomiting #14 tabs buspirone 5 mg tablet 5 mg PO BID Anxiety #180 tabs 03/02/24 carvedilol 25 mg tablet 12.5 mg (1/2 x 25 mg) PO QAM #45 03/02/24 tabs amlodipine 2.5 mg tablet (Norvasc) 2.5 mg PO DAILY #90 tabs 03/16/24 apixaban 5 mg tablet (Eliquis) 5 mg PO BID #180 tabs 04/20/24 carvedilol 6.25 mg tablet (Coreg) 6.25 mg PO BEDTIME #90 tabs 05/24/24 Allergies Allergy/AdvReac Type Severity Reaction Status Date / Time azithromycin Allergy ALGY-Anaphy Verified 07/05/24 22:34 laxis Latex, Natural Rubber Allergy ALGY-Rash Verified 07/05/24 22:34 olanzapine (From Zyprexa) Allergy hallucinati Verified 07/05/24 22:34 ons/agitate d lorazepam (From Ativan) AdvReac hallucination, Verified 07/05/24 22:34 agitated [facility] ED [facility]: Medical History Left shoulder pain Left upper arm pain after immunization given fall 2023 at [facility] Balance problem Depression, major Pain management contract signed Chronic abdominal pain uses morphine only if severe abd pain to keep her out of ER Hx MRSA infection hx of necrotizing fasciitis and hx of MRSA sepsis Hypokalemia Nicotine dependence, cigarettes, with unspecified nicotine-induced disorders Chronic constipation Hx SBO Atrial fibrillation 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 Roberts Hx of abdominal surgery has had total of 13 abd surgeries---most related to bowel obstructions due to adhesions and had complication of bowel laceration with surgery and had infection Hx of appendectomy History of delivery X 1 History of neck surgery History of cholecystectomy H/O hernia repair inguinal; hx of mesh H/O colectomy due to bowel obstruction from adhesions; S/P dilatation of esophageal stricture S/P ANH-BSO endometriosis; no cancer Family History Mother Congestive heart failure (CHF) Rheumatoid arthritis Social History Smoking and tobacco/nicotine status: current every day tobacco/nicotine user cigarettes Packs smoked per day: 0.75 Alcohol intake: never Substance/Drug Use: never Lives independently: No Household members: spouse Marital status: Number of children: 3 Highest education level completed: Bachelor's Degree Current occupational status: retired 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 She was initially complaining of nausea but had not had any episodes of emesis however during her stay she has filled approximately 2 emesis bags. Bowel sounds are hypoactive/absent. CT scan showing large volume fecal debris without obvious transition point-etiologies could include ileus secondary to severe constipation however given her history of recurrent small bowel obstructions, radiologist stated it may be helpful to proceed with enteral gastrografin administration. Spoke with general surgeon Dr. Degroot who recommended treating patient for SBO given her symptoms and presentation. Recommending NG tube, fluids, admit to hospitalist and he will consult on patient in the morning. Spoke to Dr. Nicholas who will admit. This patient was originally seen by Mrs. Hart?SEKOU Perez? I agree with her history, evaluation, and treatment. Lab Data 07/05/24 23:26 07/05/24 23:26 Labs/Radiology: Radiology Impressions Abdomen/Pelvis CT 07/05/24 22:09 IMPRESSION: 1. Large volume fecal debris noted throughout colon. Air-fluid levels are noted in mildly dilated small bowel without transition point, potentially representing ileus secondary to constipation. Given patient's history of recurrent small bowel obstructions, it may be helpful to proceed with enteral Gastrografin administration. Alternatively, strategy could include colon evacuation. 2. Indeterminate left renal nodule has increased in size compared to the prior exam. Consider non emergent renal mass protocol CT or MR. COMMENTS: Consistent with the [place] [employer]'s Incidental Findings Committee white paper (J Am Patricia Radiol 2018): Any incidental renal lesion less than 1 cm or classified as too small to characterize, or any incidental cystic renal lesion characterized as simple-appearing, is likely benign. No follow-up imaging is recommended for these lesions per consensus recommendations based on imaging criteria. Laboratory Results WBC 10.18 10^3/uL (3.29-11.43) 07/05/24 23: RBC 5.38 10^6/uL (3.85-5.65) 07/05/24 23: Hgb 16.60 g/dL (11.27-16.99) 07/05/24 23: Hct 50.1 % (36-47) H 07/05/24 23: MCV 93.1 fl (85-98) 07/05/24 23: MCH 30.9 pg (27-33) 07/05/24 23: MCHC 33.1 g/dL (30-55) 07/05/24 23: RDW 13.1 % (12.1-15.1) 07/05/24 23: Plt Count 198 10^3/cmm (157-399) 07/05/24 23: MPV 10.8 fL (7.4-10.4) H 07/05/24 23: Neut % (Auto) 58.7 % 07/05/24 23: Lymph % (Auto) 28.2 % 07/05/24 23: [place] % (Auto) 9.1 % 07/05/24: Eos % (Auto) 2.9 % 07/05/24 23: Baso % (Auto) 0.7 % 07/05/24: Neut # (Auto) 5.97 10^3/uL (1.8-7.7) 07/05/24: Lymph # (Auto) 2.9 10^3/uL (0.8-4.8) 07/05/24 23:26 [place] # (Auto) 0.9 10^3/uL (0.2-0.9) 07/05/24 23:26 Eos # (Auto) 0.3 10^3/uL (0.0-0.8) 07/05/24 23:26 Baso # (Auto) 0.1 10^3/uL (0.0-0.1) 07/05/24 23:26 Nucleated RBC % (auto) 0 % 07/05/24 23: Nucleated RBCs # 0.0 /100WBC 07/05/24 23:26 Sodium 142 mmol/L (136-145) 07/05/24 23: Potassium 3.6 mmol/L (3.5-5.1) 07/05/24 23: Chloride 104 mmol/L (98-107) 07/05/24 23:26 Carbon Dioxide 25 mmol/L (22-29) 07/05/24 23:26 Anion Gap 16.6 (5-19) 07/05/24 23:26 BUN 11 mg/dL (8-23) 07/05/24 23:26 Creatinine 0.7 mg/dL (0.5-0.9) 07/05/24 23:26 GFR Calculation Not Reportable 07/05/24 23: Glucose 115 mg/dL (65-115) 07/05/24 23:26 Calculated Osmolality 294 mOsm/kg (285-295) 07/05/24 23: Calcium 10.3 mg/dL (8.5-10.5) 07/05/24 23:26 Total Bilirubin 0.8 mg/dL (0.15-1.2) 07/05/24 23:26 AST 26 U/L (0-32) 07/05/24 23:26 ALT 18 U/L (0-33) 07/05/24 23:26 Alkaline Phosphatase 86 U/L (35-105) 07/05/24 23:26 Total Protein 7.7 g/dL (6.6-8.7) 07/05/24 23:26 Albumin 4.8 g/dL (3.5-5.2) 07/05/24 23:26 Globulin 2.9 g/dL (1.3-4.6) 07/05/24 23:26 Lipase 33 U/L (13-60) 07/05/24 23:26 Discharge Plan Discharge Patient Disposition: Placed in Observation Admit Provider: Pietro Nicholas Clinical Impression: SBO (small bowel obstruction) Coding Level of Care Code ED System Programmer for Tad Sanderson
[2024-07-05 23:49] LABS: Alanine Aminotransferase 18 U/L (0-33); Albumin Level 4.8 g/dL (3.5-5.2); Alkaline Phosphatase 86 U/L (35-105); Anion Gap 16.6 (5-19); Aspartate Amino Transferase 26 U/L (0-32); Blood Urea Nitrogen 11 mg/dL (8-23); Calcium 10.3 mg/dL (8.5-10.5); Carbon Dioxide 25 mmol/L (22-29); Chloride 104 mmol/L (98-107); Creatinine Clr Calc Pharmacy 50.0436; Globulin 2.9 g/dL (1.3-4.6); Glucose 115 mg/dL (65-115); Lipase 33 U/L (13-60); Osmolality Calculated 294 mOsm/kg (285-295); Potassium 3.6 mmol/L (3.5-5.1); Sodium 142 mmol/L (136-145); Total Bilirubin 0.8 mg/dL (0.15-1.2); Total Protein 7.7 g/dL (6.6-8.7)
[2024-07-05 23:50] LABS: Basophils # 0.1 10^3/uL (0.0-0.1); Basophils % 0.7 %; Eosinophils # 0.3 10^3/uL (0.0-0.8); Eosinophils % 2.9 %; Hematocrit 50.1 % (36-47); Lymphocytes # 2.9 10^3/uL (0.8-4.8); Lymphocytes % 28.2 %; Mean Corpuscular HGB Conc 33.1 g/dL (30-55); Mean Corpuscular Hemoglobin 30.9 pg (27-33); Mean Corpuscular Volume 93.1 fl (85-98); Mean Platelet Volume 10.8 fL (7.4-10.4); Monocytes # 0.9 10^3/uL (0.2-0.9); Monocytes % 9.1 %; Neutrophils # 5.97 10^3/uL (1.8-7.7); Neutrophils % 58.7 %; Nucleated Red Blood Cells % 0 %; Platelet Count 198 10^3/cmm (157-399); Red Blood Count 5.38 10^6/uL (3.85-5.65); Red Cell Distribution Width 13.1 % (12.1-15.1); White Blood Count 10.18 10^3/uL (3.29-11.43)
[2024-07-06] VITALS (14 sets, daily range): BP systolic 112–171; BP diastolic 58–113; PULSE 62–87; RESP 14–22; TEMP 36.6–37.2; O2SAT 93–98; BMI 27.8
[2024-07-06] MEDS: HYDROmorphone 0.5 MG/0.5 ML INJ 1 MG IVP (00:21)
[2024-07-06] MEDS: ondansetron 2 mg/ML SDV 2 mL 4 MG IVP ×2 (00:21→01:44)
--- NOTE | 2024-07-06 02:09 | P.HP_ITS ---
Providers/Chief Complaint 2 Primary Care Provider: Reggie Lyn MD Chief Complaint: V Possible Bowel Blockage History of Present Illness Anju Duffy is a 79 year old female with past medical history significant for complicated maddy surgical history including history of sigmoid volvulus, diverticulitis, colectomy, recurrent small bowel obstruction, fistulas, and multiple other comorbidities who presents to the emergency department with abdominal pain. She reports onset on Saturday. Describes pain as diffuse across all 4 quadrants. Endorses associated nausea and numerous episodes of emesis while in the emergency department. She rates her pain 10 out of 10 at its worst earlier today. Movement worsens pain. Denies alleviating or aggravating factors. Does report recent flatus and bowel movement. In the emergency department, patient was found to be hypertensive. Labs were largely unremarkable. CT of the abdomen and pelvis showed fecal debris in the colon, multiple air-fluid levels throughout small bowel without transition point concerning, and recommended Gastrografin. General surgery Dr. Degroot consulted by ED, recommending NG tube and will evaluate patient in the morning and decide on further imaging. is bedside and supportive. Review of Systems 2 Narrative: A complete review of systems was obtained and is negative except as stated in HPI. Medications/Allergies Home Medications ?Medication ?Instructions ?Recorded ?Confirmed ?Last Taken ?Type morphine 15 mg immediate release 15 mg PO TID PRN pain 90 days #10 12/24/23 07/01/24 Unknown Rx tablet tabs polyethylene glycol 3350 17 4 g PO DAILY 12/24/2306/10 Unknown History gram/dose oral powder (Miralax) potassium chloride 10 mEq 10 meq PO DAILY #90 tabs 07/01/24 Unknown Rx tablet,extended release (Klor-Con) hydrocodone 5 mg-acetaminophen 325 1 tab PO Q6H PRN pa in #14 tabs 01/31/24 07/01/24 Unknown Rx mg tablet ondansetron 4 mg disintegrating 4 mg PO Q6H PRN nausea and 01/31/24 07/01/24 Unknown Rx tablet vomiting #14 tabs buspirone 5 mg tablet 5 mg PO BID Anxiety #180 tab s 03/02/24 07/01/24 Unknown Rx carvedilol 25 mg tablet 12.5 mg (1/2 x 25 mg) PO QAM #45 03/02/24 07/01/24 Unknown Rx tabs amlodipine 2.5 mg tablet (Norvasc) 2.5 mg PO DAILY #90 tabs 03/16/24 07/01/24 Unknown Rx apixaban 5 mg tablet (Eliquis) 5 mg PO BID #180 tabs 0 04/20/24 07/01/24 Unknown Rx carvedilol 6.25 mg tablet (Coreg) 6.25 mg PO BEDTIME # 90 tabs 05/24/24 07/01/24 Unknown Rx Allergies Allergy/AdvReac Type Severity Reaction Status Date / Time azithromycin Allergy ALGY-Anaphy Verified 07/05/24 22:34 laxis Latex, Natural Rubber Allergy ALGY-Rash Verified 07/05/24 22:34 olanzapine (From Zyprexa) Allergy hallucinati Verified 07/05/24 22:34 ons/agitate d lorazepam (From Ativan) AdvReac hallucination, Verified 07/05/24 22:34 agitated PFSH Acute 2 PFSH: Medical History Left shoulder pain Left upper arm pain after immunization given fall 2023 at [facility] Balance problem Depression, major Pain management contract signed Chronic abdominal pain uses morphine only if severe abd pain to keep her out of ER Hx MRSA infection hx of necrotizing fasciitis and hx of MRSA sepsis Hypokalemia Nicotine dependence, cigarettes, with unspecified nicotine-induced disorders Chronic constipation Hx SBO Atrial fibrillation 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 Roberts Hx of abdominal surgery has had total of 13 abd surgeries---most related to bowel obstructions due to adhesions and had complication of bowel laceration with surgery and had infection Hx of appendectomy History of delivery X 1 History of neck surgery History of cholecystectomy H/O hernia repair inguinal; hx of mesh H/O colectomy due to bowel obstruction from adhesions; S/P dilatation of esophageal stricture S/P ANH-BSO endometriosis; no cancer Family History Mother Congestive heart failure (CHF) Rheumatoid arthritis Social History Smoking and tobacco/nicotine status: current every day tobacco/nicotine user cigarettes Packs smoked per day: 0.75 Alcohol intake: never Substance/Drug Use: never Lives independently: No Household members: spouse Marital status: Number of children: 3 Highest education level completed: Bachelor's Degree Current occupational status: retired 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 Appears fatigued. Head: Normocephalic. Atraumatic. EOM intact. Neck: No JVD. Cardiovascular: RRR. No gallops. No murmurs. Lungs: Clear to auscultation, no use of accessory muscles, no crackles or wheezes. Skin: No jaundice. No rashes. Abdomen: Hypoactive bowel sounds. Numerous surgical scars. Tender to palpation throughout 4 quadrants. Genito Urinary: Genital exam not performed since complaints not related. Rectal: Rectal exam not performed since no symptoms indicated blood loss. Extremities: No cyanosis or clubbing. Musculoskeletal: No swollen or erythematous joints. Neurological: Moves all 4 extremities. No myoclonus. Data 07/05/24 23:26 07/05/24 23:26 A&P Assessment and plan (1) GUILLAUME (generalized anxiety disorder): (2) Hypertension: Qualifiers: Hypertension type: primary hypertension Qualified Code(s): I10 - Essential (primary) hypertension (3) Atrial fibrillation: Qualifiers: Atrial fibrillation type: longstanding persistent Qualified Code(s): I 48.11 - Longstanding persistent atrial fibrillation (4) SBO (small bowel obstruction): (5) Alzheimer dementia: Plan Severe abdominal pain Suspected small bowel obstruction History of recurrent small bowel obstruction History of multiple complicated abdominal surgeries - N.p.o. for bowel rest - NG tube for bowel decompression - Start IV fluids - IV antiemetics as needed - IV analgesics as needed - General Surgery, Dr Degroot, has been consulted, appreciate recommendations History of paroxysmal atrial fibrillation - Hold apixaban in case she needs surgery - Start low-dose scheduled IV beta-eduardo - Telemetry monitoring Generalized anxiety disorder - BuSpar on hold for bowel rest Hypertension - IV hydralazine as needed - Ensure analgesia Alzheimer's dementia - At risk of delirium - Monitor mentation - Supportive care DVT ppx: Lovenox Code: AND PDMP PDMP Reviewed: Not Reviewed Attestations 2 Medical Necessity Statement*: Patient presents with severe abdominal pain, found to have suspected small bowel obstruction with a special hospitalization not to cross 2 midnights for medical management of small bowel obstruction and surgical eval. Coding Level of Care Code Acute Code for Chg Fwd Diagnoses GUILLAUME (generalized anxiety disorder) F41.1 Primary hypertension I10 Hypertension type: primary hypertension Longstanding persistent atrial fibrillation I48.11 Atrial fibrillation type: longstanding persistent SBO (small bowel obstruction) K56.609 Alzheimer dementia G30.9; F02.80
[2024-07-06] MEDS: ondansetron 2 mg/ML SDV 2 mL 4 MG IM (03:03)
[2024-07-06] MEDS: morphine 4 mg/mL SDV 1 mL IM (03:03)
--- NOTE | 2024-07-06 04:33 | XRR_ITS ---
PROCEDURE INFORMATION: Exam: XR Chest Exam date and time: 07/06/2024 4:32 AM Age: 79 years old Clinical indication: Device placement; Ng tube; Prior surgery; Surgery date: 6+ months; Surgery type: Gb; Check S/P ng placement TECHNIQUE: Imaging protocol: Radiologic exam of the chest. Views: 1 view. COMPARISON: CR XR chest 1V portable [id number] 10/07/2023 12:32 AM FINDINGS: Tubes, catheters and devices: Feeding tube is in satisfactory position. Lungs: Unremarkable. No consolidation. Pleural spaces: Unremarkable. No pleural effusion. No pneumothorax. Heart/Mediastinum: Stable cardiomediastinal silhouette. Bones/joints: Degenerative changes of the spine seen. Organs: Cholecystectomy clips project over the right upper quadrant. XR/XR chest 1V portable [id number] IMPRESSION: 1. No acute findings. 2. Feeding tube is in satisfactory position.
[2024-07-06] MEDS: cetacaine Spray 5 gm Can 1 SPRAY TOPICAL (05:08)
[2024-07-06] MEDS: sodium chloride 0.9% 1,000 ML 100 ML IV (05:08)
[2024-07-06] MEDS: enoxaparin 40 mg/0.4 mL Syringe SUBCUT (05:34)
[2024-07-06] MEDS: metoprolol tartrate 1 mg/1 mL SDV 5 mL 2.5 MG IVP ×3 (05:34→17:10)
[2024-07-06] MEDS: D5-NS 0.45% + KCL 20 mEq 20 MEQ/1,000 ML BAG 60 MEQ IV ×2 (05:35→20:12)
--- NOTE | 2024-07-06 08:41 | P.CONIM_ITS ---
Providers/Reason For Consult 2 Consulting Physician/Specialty*: General Surgery Reason for Consult*: Small bowel obstruction Attending Physician: Evans Aquino MD Primary Care Provider: Reggie Lyn MD History of Present Illness History of Present Illness Anju Duffy is a 79 year old female with history of multiple previous small bowel obstructions who presented to the hospital with acute abdominal pain nausea and vomiting. A CT scan of the abdomen and pelvis in the ER show mild lobulation of the bowel loops and significant stool burden consistent with a possible ileus versus early SBO. Patient reports she has had more than 13 abdominal surgeries and has had bowel resection and history of fistula in the past. Last SBO was about 6 months ago and resolved with conservative management Review of Systems 2 General: Reports: 10 or more systems reviewed and unremarkable except in HPI and below Medications/Allergies Home Medications ?Medication ?Instructions ?Recorded ?Confirmed ?Last Taken ?Type morphine 15 mg immediate release 15 mg PO TID PRN pain 90 days #10 12/24/23 07/06/24 Unknown Rx tablet tabs potassium chloride 10 mEq 10 meq PO DAILY #90 tabs 07/06/24 Unknown Rx tablet,extended release (Klor-Con) hydrocodone 5 mg-acetaminophen 325 1 tab PO Q6H PRN pa in #14 tabs 01/31/24 07/06/24 Unknown Rx mg tablet ondansetron 4 mg disintegrating 4 mg PO Q6H PRN nausea and 01/31/24 07/06/24 Unknown Rx tablet vomiting #14 tabs buspirone 5 mg tablet 5 mg PO BID Anxiety #180 tab s 03/02/24 07/06/24 Unknown Rx carvedilol 25 mg tablet 12.5 mg (1/2 x 25 mg) PO QAM #45 03/02/24 07/06/24 Unknown Rx tabs amlodipine 2.5 mg tablet (Norvasc) 2.5 mg PO DAILY #90 tabs 03/16/24 07/06/24 Unknown Rx apixaban 5 mg tablet (Eliquis) 5 mg PO BID #180 tabs 0 04/20/24 07/06/24 Unknown Rx carvedilol 6.25 mg tablet (Coreg) 6.25 mg PO BEDTIME # 90 tabs 05/24/24 07/06/24 Unknown Rx Allergies Allergy/AdvReac Type Severity Reaction Status Date / Time azithromycin Allergy ALGY-Anaphy Verified 07/05/24 22:34 laxis Latex, Natural Rubber Allergy ALGY-Rash Verified 07/05/24 22:34 olanzapine (From Zyprexa) Allergy hallucinati Verified 07/05/24 22:34 ons/agitate d lorazepam (From Ativan) AdvReac hallucination, Verified 07/05/24 22:34 agitated Current Medications Generic Name Dose Route Start Last Admin Trade Name Freq PRN Reason Stop Dose Admin Enoxaparin Sodium 40 mg 07/06/24 05:23 07/06/24 05:34 Enoxaparin 40 Mg/0.4 Ml Syringe SUBCUT 40 mg Q24H ROCIO Administration Sodium Chloride 1,000 mls @ 100 mls/hr 07/06/24 02:15 07/06/24 05:29 Sodium Chloride 0.9% IV Infused .Q10H ROCIO Infusion Potassium Chloride/Dextrose/Sod Cl 20 meq in 1,000 mls @ 60 mls/hr 07/06/24 05:23 07/06/24 05:35 D5-Ns 0.45% + Kcl 20 Meq IV 60 mls/hr .[id number] ROCIO Administration Metoprolol Tartrate 2.5 mg 07/06/24 05:23 07/06/24 05:34 Metoprolol Tartrate 1 Mg/1 Ml Sdv 5 Ml IVP 2.5 mg Q6H ROCIO Administration PFSH Acute 2 PFSH: Medical History Left shoulder pain Left upper arm pain after immunization given fall 2023 at [facility] Balance problem Depression, major Pain management contract signed Chronic abdominal pain uses morphine only if severe abd pain to keep her out of ER Hx MRSA infection hx of necrotizing fasciitis and hx of MRSA sepsis Hypokalemia Nicotine dependence, cigarettes, with unspecified nicotine-induced disorders Chronic constipation Hx SBO Atrial fibrillation 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 Roberts Hx of abdominal surgery has had total of 13 abd surgeries---most related to bowel obstructions due to adhesions and had complication of bowel laceration with surgery and had infection Hx of appendectomy History of delivery X 1 History of neck surgery History of cholecystectomy H/O hernia repair inguinal; hx of mesh H/O colectomy due to bowel obstruction from adhesions; S/P dilatation of esophageal stricture S/P ANH-BSO endometriosis; no cancer Family History Mother Congestive heart failure (CHF) Rheumatoid arthritis Social History Smoking and tobacco/nicotine status: current every day tobacco/nicotine user cigarettes Packs smoked per day: 0.75 Alcohol intake: never Substance/Drug Use: never Lives independently: No Household members: spouse Marital status: Number of children: 3 Highest education level completed: Bachelor's Degree Current occupational status: retired 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 Rectal examination is negative for stool impaction, rectal bowel appeared to be empty Data 07/05/24 23:26 07/05/24 23:26 A&P Assessment and plan (1) Chronic constipation: (2) Chronic abdominal pain: (3) SBO (small bowel obstruction): Plan After complete history physical examination and review of all available clinical data the following is my assessment. This is a 79-year-old female with history of multiple SBO's in the setting of extensive surgical history of multiple abdominal surgeries. Patient presents with similar symptoms, imaging is consistent with possibility of SBO. NG tube was placed and has been productive of about 500 cc to a liter of bilious/intestinal content. I think constipation plays a small role in the patient current episode of SBO but most likely is caused by intra-abdominal adhesions. The plan will be to decompress her abdomen for the next 24 to 48 hours and then proceed with a Gastrografin trial. I have explained to the patient in the case of a failed Gastrografin trial the next step will be to proceed with surgery, although in her clinical condition I think surgery is extremely high risk as with extensive surgical history with the risks of injury to the intra-abdominal structures, fistula formation and postoperative complications is extremely high. She is also frail and has an new diagnosis of Alzheimer disease which also increases her perioperative mortality. We will attempt to do conservative management as much as possible and only proceed to the OR if there is failure of resolution after several days of decompression and a failed Gastrografin trial. Patient shows understanding, she has also inquired about the possibility of going home without having any kind of intervention as she will not like to have surgery unless it is a life-threatening situation. I have explained to the patient that we should first do the conservative treatment and then we can discuss about potential management. In the case of SBO resolving with conservative management patient should be on twice a day MiraLAX daily to allow for better intestinal transit. - NG to low intermittent suction - Appreciate management by primary team - Hold anticoagulation in anticipation for possible surgical intervention - Pain control as needed, avoid opioids - Will plan for 24 to 48 hours of decompression before Gastrografin trial PDMP PDMP Reviewed: Not Reviewed Coding Level of Care Code Acute Code for Chg Fwd Diagnoses Chronic constipation K59.09 Chronic abdominal pain R10.9; G89.29 SBO (small bowel obstruction) K56.609
--- NOTE | 2024-07-06 09:21 | PC.NURSE ---
Pt is requesting to discharge. This nurse educated pt on the importance of staying in the hospital until medically cleared to go home. Dr. Kumar came to bedside and explained to pt that he would like for her to get an enema and possible gastrografin prior to d/c, however, pt is still stating that she needs to leave. Dr. Pierre also notified.
[2024-07-06] MEDS: morphine 4 mg/mL SDV 1 mL 2 MG IVP (12:07)
[2024-07-06 16:55] LABS: Glucose Point of Care 122 mg/dL (70-110)
[2024-07-06] MEDS: ketorolac 30 mg/mL INJ 15 MG IVP (20:07)
[2024-07-07] VITALS (10 sets, daily range): BP systolic 111–161; BP diastolic 65–78; PULSE 63–84; RESP 16–19; TEMP 36.5–37; O2SAT 93–96
[2024-07-07] MEDS: metoprolol tartrate 1 mg/1 mL SDV 5 mL 2.5 MG IVP ×5 (00:18→23:41)
[2024-07-07] MEDS: ketorolac 30 mg/mL INJ 15 MG IVP (01:54)
[2024-07-07] MEDS: enoxaparin 40 mg/0.4 mL Syringe SUBCUT (05:26)
[2024-07-07 05:59] LABS: Basophils % 0.4 %; Eosinophils # 0.1 10^3/uL (0.0-0.8); Eosinophils % 1.3 %; Hematocrit 42.8 % (36-47); Lymphocytes % 23.7 %; Mean Corpuscular Volume 93.9 fl (85-98); Mean Platelet Volume 10.8 fL (7.4-10.4); Neutrophils % 62.4 %; Nucleated Red Blood Cells % 0 %; Platelet Count 159 10^3/cmm (157-399); Red Blood Count 4.56 10^6/uL (3.85-5.65); Red Cell Distribution Width 13.3 % (12.1-15.1); White Blood Count 8.34 10^3/uL (3.29-11.43)
[2024-07-07 06:24] LABS: Alanine Aminotransferase 15 U/L (0-33); Albumin Level 3.5 g/dL (3.5-5.2); Alkaline Phosphatase 63 U/L (35-105); Aspartate Amino Transferase 18 U/L (0-32); Blood Urea Nitrogen 17 mg/dL (8-23); Calcium 8.6 mg/dL (8.5-10.5); Carbon Dioxide 26 mmol/L (22-29); Chloride 105 mmol/L (98-107); Creatinine Clr Calc Pharmacy 53.5857; Globulin 2.3 g/dL (1.3-4.6); Glucose 116 mg/dL (65-115); Magnesium 2.1 mg/dL (1.7-2.3); Osmolality Calculated 293 mOsm/kg (285-295); Phosphorus 2.9 mg/dL (2.5-4.5); Sodium 140 mmol/L (136-145); Total Bilirubin 1.4 mg/dL (0.15-1.2); Total Protein 5.8 g/dL (6.6-8.7)
--- NOTE | 2024-07-07 08:09 | P.PN_ITS ---
Subjective 2 Subjective: Hospital day 1, doing well, output from the NG tube was 500 cc overnight. Appears to be slightly bloody likely from NG tube trauma. Has been passing some gas no abdominal pain abdominal distention has improved Vitals/I&O/Wt Last Vital Signs Temp 98.1 F 07/07/24 04:17 Pulse 80 07/07/24 04:17 Resp 18 07/07/24 04:17 BP 156/78 07/07/24 04:17 Pulse Ox 93 07/07/24 04:17 O2 Del Method Room Air 07/07/24 00:20 O2 Flow Rate 1 07/06/24 02:30 07/06/24 07/07/24 07/07/24 22:59 06:59 14:59 Intake Total 877 / 877 Output Total 500 / 500 500 / 1000 Balance 377 / 377 -500 / -123 Weight last 48 hrs Weight 152 lb Weight 152 lb 3.2 oz Weight 131 lb Physical Exam 2 GI: OTHER: Abdomen is soft nontender, there is good bowel sounds. Data 07/07/24 05:19 07/07/24 05:19 A&P Assessment and plan (1) Hx SBO: (2) SBO (small bowel obstruction): Plan Patient appears to be improving, has been passing gas although has not had a bowel movement. Will do a Gastrografin trial today. I administer Gastrografin at 7 AM and we will obtain x-rays at noon, 6 PM and tomorrow. If patient is able to have a bowel movement today we will remove NG tube and allow her to have clear liquid diet. She will likely be advanced to full liquid in the inpatient setting and be discharged high-protein full liquid diet and aggressive bowel regimen to follow as outpatient where she can slowly advance to GI soft. In the case of failure Gastrografin trial will have to discussed with the patient possibility of continuation of conservative management for longer period of time versus the possibility of surgery although this is extremely high risk. PDMP PDMP Reviewed: Not Reviewed Attestations 2 Medical Necessity Statement*: Per medical team Coding Level of Care Code Acute Code for Chg Fwd Diagnoses Hx SBO Z87.19 SBO (small bowel obstruction) K56.609
[2024-07-07] MEDS: pantoprazole 40 mg SDV IVP ×2 (09:09→19:56)
--- NOTE | 2024-07-07 10:51 | XRR_ITS ---
PROCEDURE INFORMATION: Exam: XR Abdomen Exam date and time: 07/07/2024 11:42 AM Age: 79 years old Clinical indication: Abdominal pain; Generalized; Prior surgery; Surgery date: 1-6 months; Surgery type: Hernia sb resec hysto partial colec; Additional info: Follow up gastrografin, 4 hour f/u patient has already had a bm TECHNIQUE: Imaging protocol: Radiologic exam of the abdomen. Views: Frontal supine view of the abdomen. 1 View. COMPARISON: CT abdomen pelvis wo con [id number] 07/06/2024 12:56 AM FINDINGS: Tubes, catheters and devices: NG tube in the stomach. Gastrointestinal tract: Oral contrast is seen to the rectosigmoid level. There are few air distended small bowel loops in the left lower quadrant. Organs: There is pneumobilia. Cholecystectomy clips are seen. Bones/joints: Unremarkable. XR/XR abdomen 1V* [id number] IMPRESSION: Oral contrast seen to the level of rectosigmoid colon. There are few air distended small bowel loops in the left lower quadrant. Partial small bowel obstruction can not be totally excluded. Clinical correlation is advised.
--- NOTE | 2024-07-07 12:27 | P.PN_ITS ---
Subjective 2 Subjective: No acute vents overnight. Patient states she is feeling better. Denies any nausea, vomiting. Appreciate NG output of around 5 cc overnight. Passing flatus as per surgical notation. Was given Gastrografin earlier in the morning today. As per patient she is having diarrheal bowel movements currently. Vitals/I&O/Wt Last Vital Signs Temp 98.4 F 07/07/24 08:00 Pulse 74 07/07/24 08:00 Resp 16 07/07/24 08:00 BP 161/74 07/07/24 08:00 Pulse Ox 95 07/07/24 08:00 O2 Del Method Room Air 07/07/24 08:00 O2 Flow Rate 1 07/06/24 02:30 07/06/24 07/07/24 07/07/24 22:59 06:59 14:59 Intake Total 877 / 877 Output Total 500 / 500 500 / 1000 300 / 300 Balance 377 / 377 -500 / -123 -300 / -300 Weight last 48 hrs Weight 68.946 kg Weight 69.037 kg Weight 59.421 kg Physical Exam 2 Narrative: General: Patient is awake. Head: Normocephalic. Atraumatic. EOM intact. Neck: No JVD. Cardiovascular: RRR. No gallops. No murmurs. Lungs: Clear to auscultation, no use of accessory muscles, no crackles or wheezes. Skin: No jaundice. No rashes. Abdomen: Hypoactive bowel sounds. Numerous surgical scars. Tender to palpation throughout 4 quadrants. Genito Urinary: Genital exam not performed since complaints not related. Rectal: Rectal exam not performed since no symptoms indicated blood loss. Extremities: No cyanosis or clubbing. Musculoskeletal: No swollen or erythematous joints. Neurological: Moves all 4 extremities. No myoclonus. Data 07/07/24 05:19 07/07/24 05:19 A&P Assessment and plan (1) GUILLAUME (generalized anxiety disorder): (2) Hypertension: Qualifiers: Hypertension type: primary hypertension Qualified Code(s): I10 - Essential (primary) hypertension (3) Atrial fibrillation: Qualifiers: Atrial fibrillation type: longstanding persistent Qualified Code(s): I 48.11 - Longstanding persistent atrial fibrillation (4) SBO (small bowel obstruction): (5) Alzheimer dementia: Plan Severe abdominal pain Suspected small bowel obstruction History of recurrent small bowel obstruction History of multiple complicated abdominal surgeries Continue treatment for small bowel obstruction as per surgical team. G-tube management as per surgical team. Getting Gastrografin study today. Will follow and start diet accordingly. Zofran as needed. Protonix daily. Out of bed to chair. Morphine 2 mg every 4 hours as needed for pain control. Hold off on Toradol. Monitor electrolytes. History of paroxysmal atrial fibrillation - Hold apixaban in case she needs surgery Continue IV metoprolol 2.5 mg 6 hours. - Telemetry monitoring Generalized anxiety disorder - BuSpar on hold for bowel rest Hypertension: Goal blood pressure less than 140/90 mmHg. - IV hydralazine as needed - Ensure analgesia Alzheimer's dementia - At risk of delirium - Monitor mentation - Supportive care DVT ppx: Lovenox Code: AND PDMP PDMP Reviewed: Not Reviewed Attestations 2 Medical Necessity Statement*: Requested hospitalization for management of recurrent small bowel obstruction as conservative treatment is tried Diagnoses GUILLAUME (generalized anxiety disorder) F41.1 Primary hypertension I10 Hypertension type: primary hypertension Longstanding persistent atrial fibrillation I48.11 Atrial fibrillation type: longstanding persistent SBO (small bowel obstruction) K56.609 Alzheimer dementia G30.9; F02.80
[2024-07-07] MEDS: D5-NS 0.45% + KCL 20 mEq 20 MEQ/1,000 ML BAG 60 MEQ IV (12:35)
[2024-07-07] MEDS: morphine 4 mg/mL SDV 1 mL 2 MG IVP (14:32)
--- NOTE | 2024-07-07 15:39 | PM.MISC ---
Miscellaneous Note Purpose of Documentation: Update on patient care Note: Gastrografin trial was successful. After administration of Gastrografin patient had multiple bowel movements, x-ray of the abdomen showed evidence of the contrast at the level of the rectum. NG tube was discontinued patient initiated on clear liquid diet, she will be advanced to full liquid diet by tomorrow morning and after that she can be transition to the outpatient setting and full liquid diet for about a week and then she can transition back to her regular diet.
[2024-07-08] MEDS: enoxaparin 40 mg/0.4 mL Syringe SUBCUT (05:35)
[2024-07-08 06:00] VITALS: BP 124/68; PULSE 76; RESP 18; TEMP 36.8; O2SAT 94
[2024-07-08 06:03] LABS: Basophils % 0.4 %; Eosinophils # 0.2 10^3/uL (0.0-0.8); Eosinophils % 3.2 %; Hematocrit 40.6 % (36-47); Lymphocytes # 1.9 10^3/uL (0.8-4.8); Lymphocytes % 27.8 %; Mean Corpuscular HGB Conc 31.8 g/dL (30-55); Mean Corpuscular Hemoglobin 30.6 pg (27-33); Mean Corpuscular Volume 96.2 fl (85-98); Mean Platelet Volume 10.6 fL (7.4-10.4); Monocytes # 0.8 10^3/uL (0.2-0.9); Monocytes % 11.4 %; Neutrophils # 3.91 10^3/uL (1.8-7.7); Neutrophils % 57.1 %; Nucleated Red Blood Cells % 0 %; Platelet Count 150 10^3/cmm (157-399); Red Blood Count 4.22 10^6/uL (3.85-5.65); Red Cell Distribution Width 13.2 % (12.1-15.1); White Blood Count 6.86 10^3/uL (3.29-11.43)
[2024-07-08 06:30] LABS: Alanine Aminotransferase 14 U/L (0-33); Albumin Level 3.5 g/dL (3.5-5.2); Alkaline Phosphatase 61 U/L (35-105); Aspartate Amino Transferase 17 U/L (0-32); Blood Urea Nitrogen 10 mg/dL (8-23); Calcium 8.5 mg/dL (8.5-10.5); Carbon Dioxide 25 mmol/L (22-29); Chloride 104 mmol/L (98-107); Creatinine Clr Calc Pharmacy 53.5961; Globulin 2.2 g/dL (1.3-4.6); Glucose 106 mg/dL (65-115); Osmolality Calculated 285 mOsm/kg (285-295); Sodium 138 mmol/L (136-145); Total Bilirubin 1.1 mg/dL (0.15-1.2); Total Protein 5.7 g/dL (6.6-8.7)
[2024-07-08 07:47] VITALS: BP 125/65; PULSE 67; RESP 18; TEMP 36.7; O2SAT 94
--- NOTE | 2024-07-08 08:49 | P.PN_ITS ---
Subjective 2 Subjective: 79-year-old female with history of multi ple episodes of SBO due to extensive surgical history and history of chronic abdominal pain who presents with SBO. She has been doing well over the last 24 hours. Abdominal distention pain have improved, has been having several liquid bowel movements. Vitals/I&O/Wt Last Vital Signs Temp 98.0 F 07/08/24 07:47 Pulse 67 07/08/24 07:47 Resp 18 07/08/24 07:47 BP 125/65 07/08/24 07:47 Pulse Ox 94 07/08/24 07:47 O2 Del Method Room Air 07/08/24 07:47 O2 Flow Rate 1 07/06/24 02:30 07/07/24 07/08/24 07/08/24 22:59 06:59 14:59 Intake Total 480 / 1524 480 / 2004 240 / 240 Balance 480 / 1224 480 / 1704 240 / 240 Weight last 48 hrs Weight 152 lb 1 oz Weight 152 lb Physical Exam 2 GI: OTHER: Abdomen is soft, there is some mild tenderness in the Mid abdomen. Bowel sounds are good Data 07/08/24 05:50 07/08/24 05:50 A&P Assessment and plan (1) Chronic nausea: (2) Chronic abdominal pain: (3) SBO (small bowel obstruction): Plan Patient with history of chronic abdominal pain, extensive abdominal surgeries and multiple SBO's who presented with SBO. Gastrografin trial was done yesterday at and was positive, patient had multiple bowel movements. She was advanced to full liquid diet and is tolerating, she is allowed to transition to the outpatient setting and full liquid diet for the next week, after that she can slowly advance to a GI soft diet. She should receive MiraLAX twice a day for the next 30 days after that she can go back to once a day. Warning signs have been given. Patient shows understanding. PDMP PDMP Reviewed: Not Reviewed Attestations 2 Medical Necessity Statement*: Per medical Coding Level of Care Code Acute Code for Chg Fwd Diagnoses Chronic nausea R11.0 Chronic abdominal pain R10.9; G89.29 SBO (small bowel obstruction) K56.609
[2024-07-08] MEDS: pantoprazole 40 mg SDV IVP (09:12)
[2024-07-08] MEDS: D5-NS 0.45% + KCL 20 mEq 20 MEQ/1,000 ML BAG 60 MEQ IV (09:14)
[2024-07-08] MEDS: polyethylene glycol 3350 Pkt 17 gm PO (09:15)
[2024-07-08 09:18] VITALS: RESP 16
[2024-07-08] MEDS: morphine 4 mg/mL SDV 1 mL 2 MG IVP (09:18)
--- NOTE | 2024-07-08 10:12 | PM.DCS ---
Discharge Providers Date of Admission: 07/07/24 14:49 Date of Discharge: July 08, 2024 Attending Provider at Admission: Pietro Nicholas MD Attending Provider at Discharge: Evans Aquino MD Consults: Surgery: Dr. Elier Elam Primary Care Provider: Reggie Lyn MD Diagnoses at Discharge Discharge Diagnosis (1) Chronic nausea: Status: Chronic (2) Chronic abdominal pain: Status: Chronic Permanent problem details: uses morphine only if severe abd pain to keep her out of ER (3) SBO (small bowel obstruction): Status: Acute Reason for Visit Reason for Visit: V Possible Bowel Blockage Brief History: History as per HPI: Anju Duffy is a 79 year old female with past medical history significant for complicated maddy surgical history including history of sigmoid volvulus, diverticulitis, colectomy, recurrent small bowel obstruction, fistulas, and multiple other comorbidities who presents to the emergency department with abdominal pain. She reports onset on Saturday. Describes pain as diffuse across all 4 quadrants. Endorses associated nausea and numerous episodes of emesis while in the emergency department. She rates her pain 10 out of 10 at its worst earlier today. Movement worsens pain. Denies alleviating or aggravating factors. Does report recent flatus and bowel movement. In the emergency department, patient was found to be hypertensive. Labs were largely unremarkable. CT of the abdomen and pelvis showed fecal debris in the colon, multiple air-fluid levels throughout small bowel without transition point concerning, and recommended Gastrografin. General surgery Dr. Degroot consulted by ED, recommending NG tube and will evaluate patient in the morning and decide on further imaging. is bedside and supportive. Hospital Course Hospital Course Patient was admitted to the hospital for further evaluation and management of recurrent small bowel obstruction. Surgery was consulted and she was started on conservative treatment with bowel rest, NG tube placement. Patient responded well to the treatment and gradually started passing flatus after which Gastrografin study was done which showed improvement to resolution of small bowel obstruction. Patient currently is having multiple bowel movements and is able to tolerate full liquid diet. She has been discharged in hemodynamically stable condition on daily laxatives on full liquid diet for next 1 week with very gradual advancement to a regular diet for the next couple of weeks. Physical Exam Narrative: General: Patient is awake. Head: Normocephalic. Atraumatic. EOM intact. Neck: No JVD. Cardiovascular: RRR. No gallops. No murmurs. Lungs: Clear to auscultation, no use of accessory muscles, no crackles or wheezes. Skin: No jaundice. No rashes. Abdomen: Hypoactive bowel sounds. Numerous surgical scars. Tender to palpation throughout 4 quadrants. Genito Urinary: Genital exam not performed since complaints not related. Rectal: Rectal exam not performed since no symptoms indicated blood loss. Extremities: No cyanosis or clubbing. Musculoskeletal: No swollen or erythematous joints. Neurological: Moves all 4 extremities. No myoclonus. Discharge Data Studies Completed and Pending Completed Studies During Hospitalization Category Date Time Status CT abdomen pelvis wo con [id number] Stat Cat Scan 07/05/24 22:09 Completed XR abdomen 1V* [id number] Stat Exams 07/07/24 10:51 Completed XR chest 1V portable [id number] Stat Exams 07/06/24 04:33 Completed Radiology Impressions Abdomen/Pelvis CT 07/05/24 22:09 IMPRESSION: 1. Large volume fecal debris noted throughout colon. Air-fluid levels are noted in mildly dilated small bowel without transition point, potentially representing ileus secondary to constipation. Given patient's history of recurrent small bowel obstructions, it may be helpful to proceed with enteral Gastrografin administration. Alternatively, strategy could include colon evacuation. 2. Indeterminate left renal nodule has increased in size compared to the prior exam. Consider non emergent renal mass protocol CT or MR. COMMENTS: Consistent with the [employer]'s Incidental Findings Committee white paper (J Am Patricia Radiol 2018): Any incidental renal lesion less than 1 cm or classified as too small to characterize, or any incidental cystic renal lesion characterized as simple-appearing, is likely benign. No follow-up imaging is recommended for these lesions per consensus recommendations based on imaging criteria. Chest X-Ray 07/06/24 04:33 IMPRESSION: 1. No acute findings. 2. Feeding tube is in satisfactory position. Abdomen X-Ray 07/07/24 10:51 IMPRESSION: Oral contrast seen to the level of rectosigmoid colon. There are few air distended small bowel loops in the left lower quadrant. Partial small bowel obstruction can not be totally excluded. Clinical correlation is advised. Laboratory Results WBC 6.86 10^3/uL (3.29-11.43) 07/08/24 05:50 RBC 4.22 10^6/uL (3.85-5.65) 07/08/24 05:50 Hgb 12.90 g/dL (11.27-16.99) 07/08/24 05:50 Hct 40.6 % (36-47) 07/08/24 05:50 MCV 96.2 fl (85-98) 07/08/24 05:50 MCH 30.6 pg (27-33) 07/08/24 05:50 MCHC 31.8 g/dL (30-55) 07/08/24 05:50 RDW 13.2 % (12.1-15.1) 07/08/24 05:50 Plt Count 150 10^3/cmm (157-399) L 07/08/24 05:50 MPV 10.6 fL (7.4-10.4) H 07/08/24 05:50 Neut % (Auto) 57.1 % 07/08/24 05:50 Lymph % (Auto) 27.8 % 07/08/24 05:50 [place] % (Auto) 11.4 % 07/08/24 05:50 Eos % (Auto) 3.2 % 07/08/24 05:50 Baso % (Auto) 0.4 % 07/08/24 05:50 Neut # (Auto) 3.91 10^3/uL (1.8-7.7) 07/08/24 05:50 Lymph # (Auto) 1.9 10^3/uL (0.8-4.8) 07/08/24 05:50 [place] # (Auto) 0.8 10^3/uL (0.2-0.9) 07/08/24 05:50 Eos # (Auto) 0.2 10^3/uL (0.0-0.8) 07/08/24 05:50 Baso # (Auto) 0.0 10^3/uL (0.0-0.1) 07/08/24 05:50 Nucleated RBC % (auto) 0 % 07/08/24 05:50 Nucleated RBCs # 0.0 /100WBC 07/08/24 05:50 Sodium 138 mmol/L (136-145) 07/08/24 05:50 Potassium 4.0 mmol/L (3.5-5.1) 07/08/24 05:50 Chloride 104 mmol/L (98-107) 07/08/24 05:50 Carbon Dioxide 25 mmol/L (22-29) 07/08/24 05:50 Anion Gap 13.0 (5-19) 07/08/24 05:50 BUN 10 mg/dL (8-23) 07/08/24 05:50 Creatinine 0.5 mg/dL (0.5-0.9) 07/08/24 05:50 GFR Calculation Not Reportable 07/08/24 05:50 Glucose 106 mg/dL (65-115) 07/08/24 05:50 POC Glucose 122 mg/dL (70-110) H 07/06/24 16:41 Calculated Osmolality 285 mOsm/kg (285-295) 07/08/24 05:50 Calcium 8.5 mg/dL (8.5-10.5) 07/08/24 05:50 Phosphorus 2.9 mg/dL (2.5-4.5) 07/07/24 05:19 Magnesium 2.1 mg/dL (1.7-2.3) 07/07/24 05:19 Total Bilirubin 1.1 mg/dL (0.15-1.2) 07/08/24 05:50 AST 17 U/L (0-32) 07/08/24 05:50 ALT 14 U/L (0-33) 07/08/24 05:50 Alkaline Phosphatase 61 U/L (35-105) 07/08/24 05:50 Total Protein 5.7 g/dL (6.6-8.7) L 07/08/24 05:50 Albumin 3.5 g/dL (3.5-5.2) 07/08/24 05:50 Globulin 2.2 g/dL (1.3-4.6) 07/08/24 05:50 Lipase 33 U/L (13-60) 07/05/24 23:26 Vitals Last Vital Signs Temp 98.0 F 07/08/24 07:47 Pulse 67 07/08/24 07:47 Resp 16 07/08/24 09:18 BP 125/65 07/08/24 07:47 Pulse Ox 94 07/08/24 07:47 O2 Del Method Room Air 07/08/24 07:47 O2 Flow Rate 1 07/06/24 02:30 Discharge Plan Discharge Patient Disposition: Home Condition: Stable Prescriptions: New polyethylene glycol 3350 17 gram Powder In Packet 17 g PO BID 30 Days Qty: 30 0RF Continued buspirone 5 mg tablet 5 mg PO BID Qty: 180 1RF carvedilol 25 mg tablet 12.5 mg PO QAM Qty: 45 3RF morphine 15 mg tablet 15 mg PO TID PRN (Reason: pain) 90 Days Qty: 10 0RF Rx Instructions: Pt is no longer taking potassium chloride [Klor-Con 10] 10 mEq tablet extended release 10 meq PO DAILY Qty: 90 3RF amlodipine [Norvasc] 2.5 mg tablet 2.5 mg PO DAILY Qty: 90 3RF Eliquis 5 mg tablet 5 mg PO BID Qty: 180 3RF carvedilol [Coreg] 6.25 mg tablet 6.25 mg PO BEDTIME Qty: 90 0RF hydrocodone-acetaminophen 5-325 mg tablet 1 tab PO Q6H PRN (Reason: pain) Qty: 14 0RF Rx Instructions: pt is not longer taking ondansetron 4 mg tablet,disintegrating 4 mg PO Q6H PRN (Reason: nausea and vomiting) Qty: 14 0RF Discharge Orders: Discharge Order (Routine); Ordered 07/08/24 Ordered By: Evans Aquino Referrals: Anjel Degroot MD [Physician, General Surgery] - 07/22/24 1:00 pm Referral Note: 2 weeks Reggie Lyn MD [Primary Care Provider, [facility] - 07/16/24 11:30 am Discharge Diet: Full LIquid Discharge Activity: Resume usual activity Patient Instructions: Polyethylene Glycol 3350 (By mouth), Bowel Obstruction (GEN), Full Liquid Diet (DC), GI (Gastrointestinal) Soft Diet (DC), Opioid Safety Activity Restrictions/Additional Instructions: General Surgery instructions: Continue on full liquid diet for the next week, after that you can advance to a GI soft diet and you should stay in the GI soft diet in the long-term. Continue taking the MiraLAX twice a day for the next month, if you are having More than 3 liquid bowel movements you can switch to once a day. Return to the hospital you have severe nausea and vomit abdominal pain that is getting worse over time. Please avoid taking opiate medications for abdominal pain as this can cause an intestinal obstruction Discharge Attestations Time Spent in Discharge Care*: greater than 30 min Specific Discharge Activities: educating patient, educating and/or supporting family/caregiver, discussing with pcp/other providers, discussing with high risk case manager/social workers/dc planners, documenting/other paperwork and evaluating patient/reviewing data Status at Discharge: Cognitive status at discharge: mildly impaired cognition, Behavioral status at discharge: cooperative, Functional status at discharge: independent ambulation, Overall status at discharge: patient is back to baseline Quality Metrics Clinical Quality Measures [ No reported AMI, CVA or VTE this stay] Coding Level of Care Code 50988 Total time (in minutes) for Discharge: 60 Diagnoses Chronic nausea R11.0 Chronic abdominal pain R10.9; G89.29 SBO (small bowel obstruction) K56.609
--- NOTE | 2024-07-08 10:29 | PC.NURSE ---
Discharge Note Patient discharged to home via private care provider accompanied by . Discharge instructions reviewed with patient and/or senior sales representative. Mobile pharmacy medications and/or prescriptions provided. Belongings/home medications returned.
[2024-07-08 10:31] VITALS: BP 125/65; PULSE 67; RESP 18; TEMP 36.7; O2SAT 94
--- NOTE | 2024-07-08 11:17 | PC.NURSE ---
Discharge instructions provided to pt and her . NO questions or concerns voiced. To private vehicle via wheelchair with all belongings.
== END 2024-07-08 11:10 | disposition home or self-care (01) | DRG 389 ==
LOC: ER 07-06 02:59 → MEDSURG 07-06 03:10
PROVIDERS: Emergency Medicine; Admitting Provider Internal Medicine; Emergency Provider Physician Assistant; PCP Family Medicine; Visit Provider Student in an Organized Health Care Education/Training Program
DX: K56.609 Unspecified intestinal obstruction, unspecified as to partial versus complete obstruction (principal); I48.11 Longstanding persistent atrial fibrillation; G89.29 Other chronic pain; R10.9 Unspecified abdominal pain; I10 Essential (primary) hypertension; F32.9 Major depressive disorder, single episode, unspecified; F17.210 Nicotine dependence, cigarettes, uncomplicated; K59.09 Other constipation; F41.1 Generalized anxiety disorder; M19.90 Unspecified osteoarthritis, unspecified site; G30.9 Alzheimer's disease, unspecified; F02.80 Dementia in other diseases classified elsewhere, unspecified severity, without behavioral disturbance, psychotic disturbance, mood disturbance, and anxiety; Z79.891 Long term (current) use of opiate analgesic; Z79.01 Long term (current) use of anticoagulants; Z90.49 Acquired absence of other specified parts of digestive tract; Z86.14 Personal history of Methicillin resistant Staphylococcus aureus infection; Z98.1 Arthrodesis status
CPT/HCPCS: 36415; 36416; 71045; 74018; 74176; 80053; 82962; 83690; 83735; 84100; 85025; 96372; G0378; J1171; J1650; J1885; J2270; J2405; J2470; J3490; J7030; J9999; Q9963

== ENCOUNTER → 2024-07-20 13:55 | Outpatient (BNVA) | payer MEDICARE, OTHER, SELFPAY | PROVIDERS: PCP Family Medicine; Visit Provider Psychiatry & Neurology Neurology | DX: R41.3 Other amnesia (principal) | CPT/HCPCS: 99212 ==

== ENCOUNTER 2024-08-06 01:01 | Inpatient (IN) | payer MEDICARE, OTHER, SELFPAY ==
[2024-08-06] VITALS (16 sets, daily range): BP systolic 123–189; BP diastolic 51–94; PULSE 65–83; RESP 16–19; TEMP 36.6–36.8; O2SAT 92–99; BMI 23.3
--- NOTE | 2024-08-06 01:04 | XRR_ITS ---
PROCEDURE INFORMATION: Exam: XR Abdomen Exam date and time: 08/06/2024 2:21 AM Age: 79 years old Clinical indication: Vomiting; Additional info: Abdominal pain TECHNIQUE: Imaging protocol: Radiologic exam of the abdomen. Views: 2 Views. Upright and supine views. COMPARISON: CR XR abdomen 1V* [id number] 07/07/2024 11:42 AM FINDINGS: Lungs: Imaged lung lutz clear. Gastrointestinal tract: No identified transition point or obstruction. Intraperitoneal space: Normal. No free air. Organs: Previous cholecystectomy. Metallic coils projecting over the lower abdomen suggesting prior mesh hernia repair. Bones/joints: Unremarkable for age. XR/XR acute abdomen series [id number] IMPRESSION: No identified transition point or obstruction. No visualized acute pathology within the abdomen.
[2024-08-06 02:03] LABS: Basophils # 0.1 10^3/uL (0.0-0.1); Basophils % 0.4 %; Eosinophils # 0.4 10^3/uL (0.0-0.8); Eosinophils % 2.3 %; Hematocrit 51.3 % (36-47); Lymphocytes # 2.1 10^3/uL (0.8-4.8); Lymphocytes % 12.8 %; Mean Corpuscular HGB Conc 33.3 g/dL (30-55); Mean Corpuscular Hemoglobin 30.4 pg (27-33); Mean Corpuscular Volume 91.1 fl (85-98); Mean Platelet Volume 10.6 fL (7.4-10.4); Monocytes # 1.1 10^3/uL (0.2-0.9); Monocytes % 6.4 %; Neutrophils # 12.71 10^3/uL (1.8-7.7); Neutrophils % 77.8 %; Nucleated Red Blood Cells % 0 %; Platelet Count 212 10^3/cmm (157-399); Red Blood Count 5.63 10^6/uL (3.85-5.65); Red Cell Distribution Width 13.5 % (12.1-15.1); White Blood Count 16.35 10^3/uL (3.29-11.43)
[2024-08-06 02:18] LABS: Alanine Aminotransferase 31 U/L (0-33); Albumin Level 4.5 g/dL (3.5-5.2); Alkaline Phosphatase 88 U/L (35-105); Aspartate Amino Transferase 50 U/L (0-32); Blood Urea Nitrogen 17 mg/dL (8-23); Calcium 9.9 mg/dL (8.5-10.5); Carbon Dioxide 22 mmol/L (22-29); Chloride 102 mmol/L (98-107); Creatinine Clr Calc Pharmacy 49.5375; Glucose 174 mg/dL (65-115); Lipase 157 U/L (13-60); Osmolality Calculated 298 mOsm/kg (285-295); Sodium 141 mmol/L (136-145); Total Bilirubin 1.2 mg/dL (0.15-1.2); Total Protein 7.5 g/dL (6.6-8.7)
[2024-08-06 02:19] LABS: Lactic Sepsis W/Reflex 1.4 mmol/L (0.5-2.2)
--- NOTE | 2024-08-06 02:51 | CTR_ITS ---
PROCEDURE INFORMATION: Exam: CT Abdomen And Pelvis Without Contrast Exam date and time: 08/06/2024 5:01 AM Age: 79 years old Clinical indication: Vomiting; Abdominal pain; Generalized TECHNIQUE: Imaging protocol: Computed tomography of the abdomen and pelvis without contrast. Radiation optimization: All CT scans at this facility use at least one of these dose optimization techniques: automated exposure control; mA and/or kV adjustment per patient size (includes targeted exams where dose is matched to clinical indication); or iterative reconstruction. COMPARISON: CT abdomen pelvis con [id number] 07/06/2024 12:56 AM RADIATION DOSE METRICS: Total DLP (mGy-cm): 362.3 FINDINGS: Lungs: Lung bases are clear as visualized. Heart: Base of heart is unremarkable as visualized. Liver: Pneumobilia appear prominent intrahepatic and extrahepatic biliary ducts. Gallbladder and biliary ducts: Cholecystectomy. Pancreas: Normal. No ductal dilation. Spleen: Multiple calcified splenic granulomas. Adrenal glands: Normal. No mass. Kidneys and ureters: Stable hyperattenuating right upper renal pole lesion. Stable hypoattenuating cyst of the left kidney. Stomach and bowel: Heavy colonic stool burden. Fluid distended loops of pelvic small bowel with perhaps focal transition of the ileocolic anastomosis in the right lower quadrant. Appendix: Appendix is surgically absent. Intraperitoneal space: Unremarkable. No free air. No significant fluid collection. Vasculature: Severe atherosclerotic disease. Lymph nodes: Unremarkable. No enlarged lymph nodes. Urinary bladder: Unremarkable as visualized. Reproductive: Status post hysterectomy. Bones/joints: Diffuse degenerative change of the visualized osseous structures. At least partially demineralized bones. Soft tissues: Unremarkable. CT/CT abdomen pelvis con [id number] IMPRESSION: 1. Similar-appearing dilated fluid-filled loops of small bowel in the pelvis which demonstrate possible focal transition of the ileocolic anastomosis. No evidence for ischemia at this time. It is noted again that the patient has a large fecal burden, and this again may be ileus secondary to constipation. Correlate clinically for small bowel obstruction. 2. Similar appearance of the kidneys including an indeterminate left renal lesion, again nonemergent renal mass protocol CT/MRI is recommended.
--- NOTE | 2024-08-06 03:46 | W.ED.ABDPA2 ---
HPI - Abdominal Pain General: Chief Complaint: Abdominal Pain Stated Complaint: Vomiting Possible Blockage Time Seen by Provider: 08/06/24 03:16 History of Present Illness: 79-year-old female with a history of multiple small bowel obstructions who presents emergency room with abdominal pain, nausea and vomiting. She believes this is similar to previous episodes. She has not been able to keep anything down. He states she gets constipated and then she ends up with bowel obstruction. She is been admitted multiple times. No fevers. No altered mental status. Related Data Previous Rx's ?Medication ?Instructions ?Recorded morphine 15 mg immediate release 15 mg PO TID PRN pain 90 days #10 12/24/23 tablet tabs potassium chloride 10 mEq 10 meq PO DAILY #90 tabs 12/24/23 tablet,extended release (Klor-Con) ondansetron 4 mg disintegrating 4 mg PO Q6H PRN nausea and 01/31/24 tablet vomiting #14 tabs apixaban 5 mg tablet (Eliquis) 5 mg PO BID #180 tabs 04/20/24 carvedilol 6.25 mg tablet (Coreg) 6.25 mg PO BEDTIME #90 tabs 05/24/24 polyethylene glycol 3350 17 gram 17 g PO BID 30 days #30 ea 07/08/24 oral powder packet buspirone 10 mg tablet 10 mg PO BID Anxiety #60 tabs 08/04/24 Allergies Allergy/AdvReac Type Severity Reaction Status Date / Time azithromycin Allergy ALGY-Anaphy Verified 08/06/24 01:14 laxis Latex, Natural Rubber Allergy ALGY-Rash Verified 08/06/24 01:14 olanzapine (From Zyprexa) Allergy hallucinati Verified 08/06/24 01:14 ons/agitate d lorazepam (From Ativan) AdvReac hallucination, Verified 08/06/24 01:14 agitated Review of Systems Narrative: Constitutional symptoms: Negative except as documented in HPI. Skin symptoms: Negative except as documented in HPI. Eye symptoms: Negative except as documented in HPI. ENMT symptoms: Negative except as documented in HPI. Respiratory symptoms: Negative except as documented in HPI. Cardiovascular symptoms: Negative except as documented in HPI. Gastrointestinal symptoms: Negative except as documented in HPI. Genitourinary symptoms: Negative except as documented in HPI. Musculoskeletal symptoms: Negative except as documented in HPI. Neurologic symptoms: Negative except as documented in HPI. Psychiatric symptoms: Negative except as documented in HPI. Endocrine symptoms: Negative except as documented in HPI. PFSH ED PFSH: Medical History Left shoulder pain Left upper arm pain after immunization [facility] fall [facility] at [facility] Balance problem Depression, major Pain management contract signed Chronic abdominal pain uses morphine only if severe abd pain to keep her out of ER Hx MRSA infection hx of necrotizing fasciitis and hx of MRSA sepsis Hypokalemia Nicotine dependence, cigarettes, with unspecified nicotine-induced disorders Chronic constipation Hx SBO Atrial fibrillation 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 Roberts Hx of abdominal surgery has had total of 13 abd surgeries---most related to bowel obstructions due to adhesions and had complication of bowel laceration with surgery and had infection Hx of appendectomy History of delivery X 1 History of neck surgery History of cholecystectomy H/O hernia repair inguinal; hx of mesh H/O colectomy due to bowel obstruction from adhesions; S/P dilatation of esophageal stricture S/P ANH-BSO endometriosis; no cancer Family History Mother Congestive heart failure (CHF) Rheumatoid arthritis Social History Smoking and tobacco/nicotine status: current every day tobacco/nicotine user cigarettes Packs smoked per day: 0.75 Alcohol intake: never Substance/Drug Use: never Lives independently: No Household members: spouse Marital status: Number of children: 3 Highest education level completed: Bachelor's Degree Current occupational status: retired 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 Skin: Warm, dry. Head: Normocephalic, atraumatic. Neck: Supple, trachea midline. Eye: Extraocular movements are intact. Ears, nose, mouth and throat: Tacky oral mucosa Cardiovascular: Regular, Normal peripheral perfusion. Respiratory: Lungs are clear to auscultation, respirations are non-labored, breath sounds are equal, Symmetrical chest wall expansion. Gastrointestinal: Soft, diffuse abdominal tenderness, Non distended Musculoskeletal: Normal ROM, no deformity. Neurological: Alert and oriented, No focal neurological deficit observed. Psychiatric: Cooperative, appropriate mood & affect. Course Vital Signs: Vital signs: Vital Signs Temperature 98 F 08/06/24 01:10 Pulse Rate 72 08/06/24 04:30 Respiratory Rate 17 08/06/24 05:40 Blood Pressure 139/57 08/06/24 04:30 Pulse Oximetry 94 08/06/24 05:40 Oxygen Delivery Me thod Room Air 08/06/24 04:30 MDM - Abdominal Pain Medical Decision Making Medical decision making: Differential diagnosis for this patient with nausea and vomiting including but not limited to and based on the above HPI, review of systems and physical exam: Urinary tract infection. Appendicitis. Cholecystitis. Colitis. small bowel obstruction. crohn's flare. pancreatitis. gastritis. peptic ulcer. cyclic vomiting. Viral illness. Influenza. COVID. Orders placed to evaluate differential diagnosis based on the above differential, HPI and physical exam Lab Review: Laboratory results were reviewed and interpreted by myself the emergency room physician. Leukocytosis with white count of 16,000. Polycythemia with a hemoglobin of 17. No renal failure. Lipase is 157. AST and ALT are 50 and 31. I reviewed the patient's medical record. Reexamination: Patient has remained stable. Consultation: I spoke with Dr. Newton with general surgery who agrees to consultation. Consultation: There is I spoke with Dr. Mcnamara with the hospitalist service who agrees to admission. Assessment and plan: Small bowel obstruction -I discussed the patient with the hospitalist on-call who is admitting the patient. - Discussed findings and plan with patient. Answered any questions. - All laboratory values were reviewed and interpreted personally by myself, the ER physician - All imaging was reviewed and interpreted personally by myself, the ER physician. - Evaluation and treatment of this problem were appropriate in the emergency setting Lab Data 08/06/24 01:52 08/06/24 01:52 Labs/Radiology: Radiology Impressions Chest/Abdomen X-ray 08/06/24 01:04 IMPRESSION: No identified transition point or obstruction. No visualized acute pathology within the abdomen. Abdomen/Pelvis CT 08/06/24 02:51 IMPRESSION: 1. Similar-appearing dilated fluid-filled loops of small bowel in the pelvis which demonstrate possible focal transition of the ileocolic anastomosis. No evidence for ischemia at this time. It is noted again that the patient has a large fecal burden, and this again may be ileus secondary to constipation. Correlate clinically for small bowel obstruction. 2. Similar appearance of the kidneys including an indeterminate left renal lesion, again nonemergent renal mass protocol CT/MRI is recommended. Laboratory Results WBC 16.35 10^3/uL (3.29-11.43) H 08/06/24 01:52 RBC 5.63 10^6/uL (3.85-5.65) 08/06/24 01:52 Hgb 17.10 g/dL (11.27-16.99) H 08/06/24 01:52 Hct 51.3 % (36-47) H 08/06/24 01:52 MCV 91.1 fl (85-98) 08/06/24 01:52 MCH 30.4 pg (27-33) 08/06/24 01:52 MCHC 33.3 g/dL (30-55) 08/06/24 01:52 RDW 13.5 % (12.1-15.1) 08/06/24 01:52 Plt Count 212 10^3/cmm (157-399) 08/06/24 01:52 MPV 10.6 fL (7.4-10.4) H 08/06/24 01:52 Neut % (Auto) 77.8 % 08/06/24 01:52 Lymph % (Auto) 12.8 % 08/06/24 01:52 [place] % (Auto) 6.4 % 08/06/24 01:52 Eos % (Auto) 2.3 % 08/06/24 01:52 Baso % (Auto) 0.4 % 08/06/24 01:52 Neut # (Auto) 12.71 10^3/uL (1.8-7.7) H 08/06/24 01:52 Lymph # (Auto) 2.1 10^3/uL (0.8-4.8) 08/06/24 01:52 [place] # (Auto) 1.1 10^3/uL (0.2-0.9) H 08/06/24 01:52 Eos # (Auto) 0.4 10^3/uL (0.0-0.8) 08/06/24 01:52 Baso # (Auto) 0.1 10^3/uL (0.0-0.1) 08/06/24 01:52 Nucleated RBC % (auto) 0 % 08/06/24 01:52 Nucleated RBCs # 0.0 /100WBC 08/06/24 01:52 Sodium 141 mmol/L (136-145) 08/06/24 01:52 Potassium 4.0 mmol/L (3.5-5.1) 08/06/24 01:52 Chloride 102 mmol/L (98-107) 08/06/24 01:52 Carbon Dioxide 22 mmol/L (22-29) 08/06/24 01:52 Anion Gap 21.0 (5-19) H 08/06/24 01:52 BUN 17 mg/dL (8-23) 08/06/24 01:52 Creatinine 0.7 mg/dL (0.5-0.9) 08/06/24 01:52 GFR Calculation Not Reportable 08/06/24 01:52 Glucose 174 mg/dL (65-115) H 08/06/24 01:52 Calculated Osmolality 298 mOsm/kg (285-295) H 08/06/24 01:52 Lactic Acid 1.4 mmol/L (0.5-2.2) 08/06/24 01:52 Calcium 9.9 mg/dL (8.5-10.5) 08/06/24 01:52 Total Bilirubin 1.2 mg/dL (0.15-1.2) 08/06/24 01:52 AST 50 U/L (0-32) H 08/06/24 01:52 ALT 31 U/L (0-33) 08/06/24 01:52 Alkaline Phosphatase 88 U/L (35-105) 08/06/24 01:52 Total Protein 7.5 g/dL (6.6-8.7) 08/06/24 01:52 Albumin 4.5 g/dL (3.5-5.2) 08/06/24 01:52 Globulin 3.0 g/dL (1.3-4.6) 08/06/24 01:52 Lipase 157 U/L (13-60) H 08/06/24 01:52 All radiology interpretation(s) finalized by discharge Discharge Plan Discharge Patient Disposition: Admitted As Inpatient Clinical Impression: SBO (small bowel obstruction) Condition: Stable Coding Level of Care Code ED [employer] for Tad Sanderson
[2024-08-06] MEDS: ondansetron 2 mg/ML SDV 2 mL 8 MG IVP (05:40)
[2024-08-06] MEDS: morphine 4 mg/mL SDV 1 mL IVP (05:40)
[2024-08-06] MEDS: sodium chloride 0.9% 1,000 ML 999 ML IV (05:41)
[2024-08-06 06:18] LABS: Bilirubin Urine Negative (Negative); Blood Urine 2+ (Negative); Glucose Urine UA Negative (Normal); Ketones Urine Trace (Negative); Leukocyte Esterase Urine Trace (Negative); Nitrate Urine Negative (Negative); Protein Urine 1+ (Negative); Specific Gravity, Urine 1.018 (1.005-1.030); Urine Appearance Clear (CLEAR); Urine Color Yellow (Yellow); pH Urine 6.5 (5-7)
[2024-08-06 06:23] LABS: Bacteria Urine None Seen /hpf; Hyaline Casts Urine 2.46 /lpf; RBC Urine 21-50 /hpf (0-2); Squamous Epithelial Cell Urine 0-5 /hpf (0-5); WBC Urine 0-5 /hpf (0-5)
[2024-08-06 06:25] LABS: Add Urine Culture? Yes
[2024-08-06 06:32] LABS: Magnesium 1.9 mg/dL (1.7-2.3); Phosphorus 3.7 mg/dL (2.5-4.5)
--- NOTE | 2024-08-06 06:34 | PM.HP ---
Providers/Chief Complaint Admitting Physician: Chandler Mcnamara MD Primary Care Provider: Anna Gomez MD Chief Complaint: Vomiting Possible Blockage History of Present Illness Anju Duffy is a 79 year old female Developed nausea vomiting starting with nausea at 4 PM. 12 AM she vomited but no blood she denies abdominal pain she has had liquid stools soft and weight has been steady at 127-130. Notably she is not passing gas since 4 PM 08/05 and her last BM was yesterday before that. Patient is not a very good historian she has dementia and will refer to the fact that she has Alzheimer's so does not know. History is assisted by her Margarito Margarito thinks patient would benefit from half to 1 bottle of mag citrate once a week Review of Systems Narrative: Cardiovascular no chest pain GI positive for nausea vomiting soft liquid stools alternating with absence of stools but she denies abdominal pain Medications/Allergies Home Medications ?Medication ?Instructions ?Recorded ?Confirmed ?Last Taken ?Type morphine 15 mg immediate release 15 mg PO TID PRN pain 90 days #10 12/24/23 08/04/24 Unknown Rx tablet tabs potassium chloride 10 mEq 10 meq PO DAILY #90 tabs 12/24/23 08/04/24 Unknown Rx tablet,extended release (Klor-Con) ondansetron 4 mg disintegrating 4 mg PO Q6H PRN nausea and 01/31/24 08/04/24 Unknown Rx tablet vomiting #14 tabs apixaban 5 mg tablet (Eliquis) 5 mg PO BID #180 tabs 04/20/24 08/04/24 Unknown Rx carvedilol 6.25 mg tablet (Coreg) 6.25 mg PO BEDTIME #90 tabs 05/24/24 08/04/24 Unknown Rx polyethylene glycol 3350 17 gram 17 g PO BID 30 days #30 ea 07/08/24 08/04/24 Unknown Rx oral powder packet buspirone 10 mg tablet 10 mg PO BID Anxiety #60 tabs 08/04/24 08/04/24 Unknown Rx Allergies Allergy/AdvReac Type Severity Reaction Status Date / Time azithromycin Allergy ALGY-Anaphy Verified 08/06/24 01:14 laxis Latex, Natural Rubber Allergy ALGY-Rash Verified 08/06/24 01:14 olanzapine (From Zyprexa) Allergy hallucinati Verified 08/06/24 01:14 ons/agitate d lorazepam (From Ativan) AdvReac hallucination, Verified 08/06/24 01:14 agitated PFSH Acute PFSH: Medical History Left shoulder pain Left upper arm pain after immunization [facility] fall [facility] Balance problem Depression, major Pain management contract signed Chronic abdominal pain uses morphine only if severe abd pain to keep her out of ER Hx MRSA infection hx of necrotizing fasciitis and hx of MRSA sepsis Hypokalemia Nicotine dependence, cigarettes, with unspecified nicotine-induced disorders Chronic constipation Hx SBO Atrial fibrillation 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 Roberts Hx of abdominal surgery has had total of 13 abd surgeries---most related to bowel obstructions due to adhesions and had complication of bowel laceration with surgery and had infection Hx of appendectomy History of delivery X 1 History of neck surgery History of cholecystectomy H/O hernia repair inguinal; hx of mesh H/O colectomy due to bowel obstruction from adhesions; S/P dilatation of esophageal stricture S/P ANH-BSO endometriosis; no cancer Family History Mother Congestive heart failure (CHF) Rheumatoid arthritis Social History Smoking and tobacco/nicotine status: current every day tobacco/nicotine user cigarettes Packs smoked per day: 0.75 Alcohol intake: never Substance/Drug Use: never Lives independently: No Household members: spouse Marital status: Number of children: 3 Highest education level completed: Bachelor's Degree Current occupational status: retired 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; 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 Abdomen is soft but there is diffuse tenderness without rebound Calves no tenderness cords pretrip edema Skin warm and dry Mood and affect pleasant cooperative Data 08/06/24 01:52 08/06/24 01:52 A&P Assessment and plan (1) SBO (small bowel obstruction): Place NG tube to low intermittent wall suction limit narcotic pain meds. Start maintenance IV fluids with NS with 20 of KCl per liter at 100 cc an hour. Thyroid has been checked in a year and will be checked (2) Alzheimer dementia: Stable (3) Chronic constipation: Agree with Bill's plan to give 1/2-1 bottle of mag citrate once a week PDMP PDMP Reviewed: Not Reviewed Attestations Medical Necessity Statement*: Patient is admitted to the hospital for NG tube suction and bowel rest. I expect her hospitalization to cross 2 midnights Coding Level of Care Code 80142 Diagnoses SBO (small bowel obstruction) K56.609 Alzheimer dementia G30.9; F02.80 Chronic constipation K59.09 Time Spent (min) 35
--- NOTE | 2024-08-06 06:50 | XRR_ITS ---
PROCEDURE INFORMATION: Exam: XR Abdomen Exam date and time: 08/06/2024 6:53 AM Age: 79 years old Clinical indication: Device placement; Gi device; PT reporting abd pain with n/v that started around 1600. PT reports feeling unwell all day yesterday. Reports diarrhea today, family reports PT is in here about every 6 weeks with a bowel blockage; Additional info: Ng placement. TECHNIQUE: Imaging protocol: Radiologic exam of the abdomen. 1image(s) are provided. Views: Frontal supine view of the abdomen. 1 View. COMPARISON: 1. CT abdomen pelvis wo con [id number] 08/06/2024 5:01 AM 2. CR (ABDOMEN, ) 08/06/2024 2:21 AM 3. CR XR abdomen 1V* [id number] 07/07/2024 11:42 AM FINDINGS: Tubes, catheters and devices: The study is focus on the upper abdomen for gastric tube placement with the tip overlying the gastric body level. Lungs: No lobar consolidation is appreciated. Gastrointestinal tract: There is some scattered large and small bowel gas with no interval included abnormal dilatation currently appreciated. There is some moderate stool content present. Intraperitoneal space: No layering free air is appreciated. Organs: There are interventional changes of the abdomen present including right upper quadrant with suspected biliary ductal air similar overall. Bones/joints: No interval displaced fracture or dislocation is appreciated. Soft tissues: No radiopaque foreign body or subcutaneous emphysema is appreciated. No other significant interval changes are appreciated. XR/XR KUB portable [id number] IMPRESSION: The gastric tube tip overlies the gastric body level.
--- NOTE | 2024-08-06 08:30 | P.CONIM_ITS ---
Providers/Reason For Consult 2 Consulting Physician/Specialty*: General Surgery Reason for Consult*: SBO Attending Physician: Evans Aquino MD Primary Care Provider: Anna Gomez MD History of Present Illness History of Present Illness Anju Duffy is a 79 year old female With history of multiple episodes of a small bowel obstruction and extensive surgical history that includes around 13 different intra-abdominal surgeries. She presents with recurrent SBO characterized by abdominal pain distention nausea and vomiting. She does have Alzheimer's so does notRemember last time she had a bowel movement although CT scan shows evidence of constipation. Review of Systems 2 General: Reports: 10 or more systems reviewed and unremarkable except in HPI and below Medications/Allergies Home Medications ?Medication ?Instructions ?Recorded ?Confirmed ?Last Taken ?Type morphine 15 mg immediate release 15 mg PO TID PRN pain 90 days #10 12/24/23 08/04/24 Unknown Rx tablet tabs potassium chloride 10 mEq 10 meq PO DAILY #90 tabs 08/04/24 Unknown Rx tablet,extended release (Klor-Con) ondansetron 4 mg disintegrating 4 mg PO Q6H PRN nausea and 01/31/24 08/04/24 Unknown Rx tablet vomiting #14 tabs apixaban 5 mg tablet (Eliquis) 5 mg PO BID #180 tabs 0 04/20/24 08/04/24 Unknown Rx carvedilol 6.25 mg tablet (Coreg) 6.25 mg PO BEDTIME # 90 tabs 05/24/24 08/04/24 Unknown Rx polyethylene glycol 3350 17 gram 17 g PO BID 30 days # 30 ea 07/08/24 08/04/24 Unknown Rx oral powder packet buspirone 10 mg tablet 10 mg PO BID Anxiety #60 tab s 08/04/24 08/04/24 Unknown Rx Allergies Allergy/AdvReac Type Severity Reaction Status Date / Time azithromycin Allergy ALGY-Anaphy Verified 08/06/24 01:14 laxis Latex, Natural Rubber Allergy ALGY-Rash Verified 08/06/24 01:14 olanzapine (From Zyprexa) Allergy hallucinati Verified 08/06/24 01:14 ons/agitate d lorazepam (From Ativan) AdvReac hallucination, Verified 08/06/24 01:14 agitated PFSH Acute 2 PFSH: Medical History Left shoulder pain Left upper arm pain after immunization given fall [facility]23 at [facility] Balance problem Depression, major Pain management contract signed Chronic abdominal pain uses morphine only if severe abd pain to keep her out of ER Hx MRSA infection hx of necrotizing fasciitis and hx of MRSA sepsis Hypokalemia Nicotine dependence, cigarettes, with unspecified nicotine-induced disorders Chronic constipation Hx SBO Atrial fibrillation 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 Roberts Hx of abdominal surgery has had total of 13 abd surgeries---most related to bowel obstructions due to adhesions and had complication of bowel laceration with surgery and had infection Hx of appendectomy History of delivery X 1 History of neck surgery History of cholecystectomy H/O hernia repair inguinal; hx of mesh H/O colectomy due to bowel obstruction from adhesions; S/P dilatation of esophageal stricture S/P ANH-BSO endometriosis; no cancer Family History Mother Congestive heart failure (CHF) Rheumatoid arthritis Social History Smoking and tobacco/nicotine status: current every day tobacco/nicotine user cigarettes Packs smoked per day: 0.75 Alcohol intake: never Substance/Drug Use: never Lives independently: No Household members: spouse Marital status: Number of children: 3 Highest education level completed: Bachelor's Degree Current occupational status: retired 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 Data 08/06/24 01:52 08/06/24 01:52 A&P Assessment and plan (1) SBO (small bowel obstruction): (2) Chronic nausea: Plan Patient who is known to the general surgery service for multiple previous episodes of SBO in the setting of extensive Operative history, SBO appears to be combination of slow transit, probably mechanical limitation level of the ileocolic anastomosis as well as constipation. NG tube is putting out clear bilious fluid and abdominal exam is benign we will do decompression for 24 to 48 hours and then we will do a Gastrografin trial. I will reassess the patient later in the afternoon and I will proceed with a rectal examination to attempt fecal disimpaction. In the case the rectal vault is empty or the stool is not amenable to disimpaction may order an enema as I think she will benefit from adequate in the colon to allow SBO to resolve. We had extensive discussion once again regarding possibility of surgery if conservative therapy fails and she knows that this would have been a very high risk procedure due to extensive history of abdominal surgeries. Additional management per medical team I recommend optimal electrolyte replacement IV fluids and pain control as needed PDMP PDMP Reviewed: Not Reviewed Coding Level of Care Code Acute Code for Chg Fwd Diagnoses SBO (small bowel obstruction) K56.609 Chronic nausea R11.0
--- NOTE | 2024-08-06 08:47 | PC.NURSE ---
[address] AGUAYO NOTIFIED OF ORDERED MEDS AND WAS ASKED HOW MEDS NEEDED TO BE ADMINISTERED DUE TO NEW NG TUBE. VERBAL ORDERS OVER THE PHONE FROM DR. AGUAYO TO NOT ADMINISTER SCHEDULED MEDICATIONS.
[2024-08-06 10:06] LABS: Estmated Average Glucose 117; Hemoglobin A1C 5.7 % (4.0-6.0)
[2024-08-06 10:24] LABS: Procalcitonin 0.05 ng/mL (0-0.5); Thyroid Stimulating Hormone 15.37 uIU/mL (0.27-4.20); Vitamin B12 465 pg/mL (232-1245)
[2024-08-06 10:34] LABS: Iron 108 ug/dL (37-145); Percent Saturation 28.8 % (20-50); Total Iron Binding Capacity 374 mcg/dl; Unsaturated Iron Binding 266 ug/dL (112-347)
[2024-08-06] MEDS: sodium chlor 0.9% + KCl 20 mEq 20 MEQ/1,000 ML BAG 100 MEQ IV ×2 (11:02→20:30)
[2024-08-06] MEDS: pantoprazole 40 mg SDV IVP ×2 (11:02→20:29)
[2024-08-06] MEDS: heparin 5,000 unit/mL INJ 1 mL IVP (11:02)
[2024-08-06 11:08] LABS: Free T4 Free Thyroxine 1.28 ng/dL (0.82-1.77); T3 Free 4.4 PG/ML (2.0-4.4)
[2024-08-06] MEDS: heparin drip 25,000 UNIT/500 ML PREMIX 16 UNIT IV (11:08)
--- NOTE | 2024-08-06 12:48 | PM.MISC ---
Miscellaneous Note Purpose of Documentation: Update on patient care Note: Patient doing well no significant abdominal pain, I did a rectal exam the rectal vault contains only some soft stool. I will probably order an mineral oil enema later today to facilitate elimination of a stool in the colon before considering an upper GI follow-through in the next 24 to 48 hours
[2024-08-06 17:22] LABS: Partial Thromboplastin Time 109.7 SECONDS (23.9-36.7)
[2024-08-06] MEDS: morphine 4 mg/mL SDV 1 mL 2 MG IVP (20:29)
[2024-08-07] VITALS (8 sets, daily range): BP systolic 158–180; BP diastolic 70–94; PULSE 78–93; RESP 15–20; TEMP 36.6–37.1; O2SAT 94–97
[2024-08-07] MEDS: morphine 4 mg/mL SDV 1 mL 2 MG IVP ×3 (01:50→17:57)
[2024-08-07 03:07] LABS: Basophils % 0.4 %; Eosinophils # 0.1 10^3/uL (0.0-0.8); Eosinophils % 1.3 %; Hematocrit 44.7 % (36-47); Lymphocytes # 2.6 10^3/uL (0.8-4.8); Lymphocytes % 24.9 %; Mean Corpuscular HGB Conc 32.7 g/dL (30-55); Mean Corpuscular Hemoglobin 30.2 pg (27-33); Mean Corpuscular Volume 92.5 fl (85-98); Mean Platelet Volume 10.8 fL (7.4-10.4); Monocytes # 0.8 10^3/uL (0.2-0.9); Neutrophils # 6.68 10^3/uL (1.8-7.7); Neutrophils % 65.1 %; Nucleated Red Blood Cells % 0 %; Platelet Count 164 10^3/cmm (157-399); Red Blood Count 4.83 10^6/uL (3.85-5.65); Red Cell Distribution Width 13.2 % (12.1-15.1); White Blood Count 10.25 10^3/uL (3.29-11.43)
[2024-08-07 03:28] LABS: Chol HDL Ratio 2.74 mg/dL (0.0-4.40); Cholesterol 159 mg/dL (0-200); HDL Cholesterol 58 mg/dL (60-100); LDL Cholesterol Calculated 84 mg/dL (50-129); Magnesium 1.7 mg/dL (1.7-2.3); Triglycerides 83 mg/dL (0-150); VLDL Cholestrol Calculation 17 mg/dL (0-30)
[2024-08-07 03:29] LABS: Partial Thromboplastin Time 71.2 SECONDS (23.9-36.7)
[2024-08-07 03:38] LABS: Alanine Aminotransferase 31 U/L (0-33); Albumin Level 3.9 g/dL (3.5-5.2); Alkaline Phosphatase 71 U/L (35-105); Anion Gap 16.9 (5-19); Aspartate Amino Transferase 38 U/L (0-32); Blood Urea Nitrogen 11 mg/dL (8-23); Calcium 8.9 mg/dL (8.5-10.5); Carbon Dioxide 22 mmol/L (22-29); Chloride 105 mmol/L (98-107); Creatinine Clr Calc Pharmacy 49.5375; Globulin 2.4 g/dL (1.3-4.6); Glucose 94 mg/dL (65-115); Osmolality Calculated 289 mOsm/kg (285-295); Potassium 3.9 mmol/L (3.5-5.1); Sodium 140 mmol/L (136-145); Thyroid Stimulating Hormone 2.23 uIU/mL (0.27-4.20); Total Protein 6.3 g/dL (6.6-8.7)
[2024-08-07] MEDS: dextrose 5%-sod chloride 0.9% 1,000 ML 50 ML IV ×2 (05:03→23:39)
[2024-08-07 06:59] LABS: Folate Level > 20.0 ng/mL (4.8-37.3)
[2024-08-07] MEDS: pantoprazole 40 mg SDV IVP ×2 (08:12→21:28)
[2024-08-07] MEDS: phenol oral Spray 177 mL 3 SPRAY MUCOUS MEM (08:50)
[2024-08-07 09:04] LABS: Partial Thromboplastin Time 84.1 SECONDS (23.9-36.7)
--- NOTE | 2024-08-07 09:07 | PM.PN ---
Subjective Subjective: Patient doing okay this morning, has not had a bowel movement yet or passed gas, she refused her enema yesterday. Unfortunately NG tube has been disconnected from the wall suction overnight. Vitals/I&O/Wt Last Vital Signs Temp 97.9 F 08/07/24 07:24 Pulse 81 08/07/24 07:24 Resp 18 08/07/24 08:12 BP 158/85 08/07/24 07:24 Pulse Ox 94 08/07/24 07:24 O2 Del Method Room Air 08/07/24 07:24 08/06/24 08/07/24 08/07/24 22:59 06:59 14:59 Intake Total 1074.134 / 2074.134 1129.86 / 3203.994 Balance 1074.134 / 2074.134 1129.86 / 3203.994 Weight last 48 hrs Weight 133 lb 1.6 oz Weight 128 lb Weight 128 lb Physical Exam GI: OTHER: Abdomen is soft there are some tenderness in the lower abdomen there is abdomen is soft there are some tenderness in the lower abdomen there is some bowel sounds. Data 08/07/24 02:53 08/07/24 02:53 A&P Assessment and plan (1) SBO (small bowel obstruction): Plan 79-year-old female admitted with recurrent SBO. Currently stable, vital signs are normal, white count improved. Will decompress for additional 24 hours and then we will do a Gastrografin trial. PDMP PDMP Reviewed: Not Reviewed Attestations Medical Necessity Statement*: Per medical team Coding Level of Care Code Acute Code for [facility] Fwd Diagnoses SBO (small bowel obstruction) K56.609
--- NOTE | 2024-08-07 09:45 | PC.NURSE ---
Non admitted 930am dose of Heparin gtt in MAY as previous bag still has 3/4 of the bag full, per Alice in Pharmacy rather than re-time the medication.
[2024-08-07] MEDS: mineral oil ENEMA 133 mL PR (10:44)
--- NOTE | 2024-08-07 12:29 | PC.SOCIAL ---
IMM Updated Updated pt on IMM. No questions voiced. Provided pt a copy. Initialed, dated, & timed a copy & placed in chart.
--- NOTE | 2024-08-07 13:48 | P.PN_ITS ---
Subjective 2 Subjective: No acute events overnight. Overnight it seems patient's NG tube was not on intermittent suction. Seen with at bedside today. Patient seems to be emotional in hospital and seems to be frustrated today. Patient otherwise denies any complaints. Vitals/I&O/Wt Last Vital Signs Temp 98.8 F 08/07/24 11:36 Pulse 79 08/07/24 11:36 Resp 18 08/07/24 11:36 BP 172/84 08/07/24 11:36 Pulse Ox 96 08/07/24 11:36 O2 Del Method Room Air 08/07/24 11:36 08/06/24 08/07/24 08/07/24 22:59 06:59 14:59 Intake Total 1074.134 / 2074.134 1129.86 / 3203.994 89.992 / 89.992 Balance 1074.134 / 2074.134 1129.86 / 3203.994 89.992 / 89.992 Weight last 48 hrs Weight 60.373 kg Weight 58.06 kg Weight 58.06 kg Physical Exam 2 Narrative: General Well-developed well-nourished thin female in no acute cardiopulmonary stress, AO x 2 to 3, forgetful CV regular rate and rhythm Lungs clear to auscultation bilaterally Abdomen hyperactive moderately tympanitic bowel tones. Abdomen is soft but there is diffuse tenderness without rebound Calves no tenderness cords pretrip edema Skin warm and dry Mood and affect pleasant cooperative Data 08/07/24 02:53 08/07/24 02:53 Micro: Microbiology 08/06/24 06:06 Urine Culture - Preliminary Urine,Clean Catch A&P Assessment and plan (1) SBO (small bowel obstruction): Appreciate surgical recommendations. Conservative treatment. NG tube management as per surgical team. Enema as per surgical team. Continue with D5 NS at 50 cc/h. Protonix daily, Zofran as needed. Out of bed to chair. (2) Alzheimer dementia: Stable (3) Chronic constipation: Plan Hypertension: Goal blood pressure less than 140/90 mmHg. Takes Coreg at home. Continue with metoprolol 2.5 mg every 4 hours as needed for heart of more than 100 bpm. Add hydralazine 10 mg every 4 hours as needed for systolic of more than 160. Chronic anticoagulation: Takes for atrial fibrillation. Continue with heparin drip for now. Takes Eliquis at home. Full code N.p.o. Protonix for PUD prophylaxis Heparin was sufficient for DVT prophylaxis PDMP PDMP Reviewed: Not Reviewed Attestations 2 Medical Necessity Statement*: Requested hospitalization for management of recurrent SBO requiring conservative treatment. Diagnoses SBO (small bowel obstruction) K56.609 Alzheimer dementia G30.9; F02.80 Chronic constipation K59.09
[2024-08-07 15:51] LABS: Partial Thromboplastin Time 78.3 SECONDS (23.9-36.7)
[2024-08-07] MEDS: hyDRALAzine 20 mg/mL INJ 1 mL 10 MG IVP (17:56)
[2024-08-07] MEDS: ondansetron 2 mg/ML SDV 2 mL 4 MG IVP (19:23)
[2024-08-07] MEDS: heparin drip 25,000 UNIT/500 ML PREMIX 11 UNIT IV (21:27)
[2024-08-07 22:08] LABS: Partial Thromboplastin Time 62.3 SECONDS (23.9-36.7)
[2024-08-08] VITALS (8 sets, daily range): BP systolic 146–174; BP diastolic 59–80; PULSE 71–85; RESP 16–18; TEMP 36.6–37.3; O2SAT 92–96
[2024-08-08 04:21] LABS: Basophils % 0.3 %; Eosinophils # 0.1 10^3/uL (0.0-0.8); Eosinophils % 0.5 %; Hematocrit 48.6 % (36-47); Lymphocytes # 1.7 10^3/uL (0.8-4.8); Lymphocytes % 14.6 %; Mean Corpuscular HGB Conc 31.5 g/dL (30-55); Mean Corpuscular Hemoglobin 30.5 pg (27-33); Mean Corpuscular Volume 96.8 fl (85-98); Mean Platelet Volume 10.7 fL (7.4-10.4); Monocytes # 1.1 10^3/uL (0.2-0.9); Neutrophils # 8.37 10^3/uL (1.8-7.7); Neutrophils % 74.3 %; Nucleated Red Blood Cells % 0 %; Platelet Count 185 10^3/cmm (157-399); Red Blood Count 5.02 10^6/uL (3.85-5.65); White Blood Count 11.27 10^3/uL (3.29-11.43)
[2024-08-08] MEDS: hyDRALAzine 20 mg/mL INJ 1 mL 10 MG IVP ×2 (04:40→23:59)
[2024-08-08 04:47] LABS: Partial Thromboplastin Time 61.5 SECONDS (23.9-36.7)
[2024-08-08 04:58] LABS: Alanine Aminotransferase 28 U/L (0-33); Alkaline Phosphatase 78 U/L (35-105); Blood Urea Nitrogen 9 mg/dL (8-23); Calcium 8.9 mg/dL (8.5-10.5); Carbon Dioxide 24 mmol/L (22-29); Chloride 100 mmol/L (98-107); Creatinine Clr Calc Pharmacy 50.3976; Globulin 2.1 g/dL (1.3-4.6); Glucose 124 mg/dL (65-115); Osmolality Calculated 284 mOsm/kg (285-295); Sodium 137 mmol/L (136-145); Total Bilirubin 2.6 mg/dL (0.15-1.2); Total Protein 6.1 g/dL (6.6-8.7)
[2024-08-08 05:00] LABS: Anion Gap 16.9 (5-19); Aspartate Amino Transferase 33 U/L (0-32); Potassium 3.9 mmol/L (3.5-5.1)
[2024-08-08 05:57] LABS: Magnesium 1.7 mg/dL (1.7-2.3)
--- NOTE | 2024-08-08 06:19 | XRR_ITS ---
PROCEDURE INFORMATION: Exam: XR Abdomen Exam date and time: 08/08/2024 6:31 AM Age: 79 years old Clinical indication: Other: F/u sbo TECHNIQUE: Imaging protocol: Radiologic exam of the abdomen. Views: Frontal supine view of the abdomen. 1 View. COMPARISON: CR XR KUB portable [id number] 08/06/2024 6:53 AM FINDINGS: Gastrointestinal tract: Gastric tube terminates in the upper stomach. Moderate colonic fecal material suggesting constipation. No bowel dilation. Organs: Cholecystectomy. Bones/joints: Unremarkable. XR/XR KUB portable [id number] IMPRESSION: No acute findings.
[2024-08-08] MEDS: ondansetron 2 mg/ML SDV 2 mL 4 MG IVP ×2 (08:00→18:08)
--- NOTE | 2024-08-08 08:30 | P.PN_ITS ---
Subjective 2 Subjective: Passing some gas has not had a bowel movement. NG output has been minimal. An x-ray done this morning showed evidence of no obstruction but there is still a large fecal burden. Gastrografin trial will be done today. Vitals/I&O/Wt Last Vital Signs Temp 98.1 F 08/08/24 07:26 Pulse 85 08/08/24 07:26 Resp 18 08/08/24 07:26 BP 174/80 08/08/24 07:26 Pulse Ox 96 08/08/24 07:26 O2 Del Method Room Air 08/08/24 07:26 08/07/24 08/08/24 08/08/24 22:59 06:59 14:59 Intake Total 144.500 / 584.424 8275.233 / 1236.725 Balance 144.500 / 615.543 6571.233 / 1236.725 Weight last 48 hrs Weight 128 lb 3.2 oz Weight 133 lb 1.6 oz Weight 128 lb Physical Exam 2 GI: OTHER: There is a benign abdominal exam with good bowel sounds. Data 08/08/24 04:14 08/08/24 04:14 Micro: Microbiology 08/06/24 06:06 Urine Culture - Preliminary Urine,Clean Catch A&P Assessment and plan (1) Hx SBO: Plan Patient with history of multiple recurrent episodes of SBO. I think most likely she has a persistent ileus due to chronic constipation as imaging is suggestive of this and patient does have very good bowel sounds and a nondistended abdomen. Will do a Gastroview trial today with the hopes of facilitating passage of his stool. Before this patient has actually refuse enemas or other therapy to allow her to evacuate her large intestine. Depending on results of gastroenteritis will pattern of subsequent therapy. We have had extensive discussion with the patient and she knows in her clinical condition and surgical intervention will be the last resort as she has history of 13 previous abdominal surgeries which will make her a very high risk candidate for an additional laparotomy. Patient shows understanding first x-ray will be done around noon PDMP PDMP Reviewed: Not Reviewed Attestations 2 Medical Necessity Statement*: Per medical team Coding Level of Care Code Acute Code for Chg Fwd Diagnoses Hx SBO Z87.19
[2024-08-08] MEDS: morphine 4 mg/mL SDV 1 mL 2 MG IVP ×2 (09:28→18:08)
[2024-08-08] MEDS: pantoprazole 40 mg SDV IVP ×2 (09:31→21:01)
--- NOTE | 2024-08-08 10:56 | XRR_ITS ---
PROCEDURE INFORMATION: Exam: XR Abdomen Exam date and time: 08/08/2024 12:12 PM Age: 79 years old Clinical indication: Screening exam; Other: Gastro trial; Prior surgery; Surgery date: 6+ months; Surgery type: Abd; Additional info: 4hr post gastrograffin trial TECHNIQUE: Imaging protocol: Radiologic exam of the abdomen. Views: Frontal supine view of the abdomen. 1 View. COMPARISON: CR (ABDOMEN, ) 08/08/2024 6:31 AM FINDINGS: Tubes, catheters and devices: Nasogastric tube tip is in the stomach with the side port above the GE junction. Gastrointestinal tract: Dilute enteric contrast is seen throughout small bowel loops and of the colon. Organs: Cholecystectomy clips. Bones/joints: Unremarkable. Soft tissues: Prior ventral hernia repair with mesh. XR/XR KUB [id number] IMPRESSION: Enteric contrast throughout the small bowel and colon.
--- NOTE | 2024-08-08 11:08 | PC.CHAP ---
Pastoral Care Encounter/Spiritual Assessment Type of Contact [] Declined procurement officer visit [] Patient/Family/Request visit [] Outpatient visit [] Follow-up visit [] Physician referral [] Code/Alert [x] Routine visit [] Staff referral [] Actively dying [] Patient sleeping [] Family support [] [] Out of room [] Palliative care [] [] Receiving care in room [] Pre-surgical visit [] Trauma [] Long length of stay [] ICU visit [] Other: Relational/Emotional Strength [x] Patient feels connected with others/family/visitors/staff [] Distress [] Loneliness/isolation [] Abandonment Spirituality of Patient [x] Person of Martha [] Attends Religious of their Martha [] Believes in Prayer [] Reads Bible or Adventist materials [] There are Spiritual issues to be addressed Assistant Plant Controller Interventions [x] Prayer [] Active listening [] Non-anxious presence [] Spiritual/emotional support [] Crisis/trauma care [] Spiritual counseling [] Bereavement support [] Provided bereavement packet [] Provided Bible/devotional materials [] Provided toy/stuffed animal, coloring book to patient or family member [] Provided Communion [] Anointing/[place] [] Salvation [] Completed spiritual assessment [] Other: Impact on Illness or Injury [] Angry [] Fearful [] Anxious [] Often cries [] Exhaustion [] Unable to work [] Unable to attend anabaptism [] Unable to walk/stand [] Unable to read [] Unable to drive [] Unable to eat/drink [] Unable to sleep [] Unable to be with family [] Patient intubated [] Other: Summary Time spent with patient 40 min
[2024-08-08 11:15] LABS: Partial Thromboplastin Time 53.4 SECONDS (23.9-36.7)
--- NOTE | 2024-08-08 11:51 | PM.MISC ---
Miscellaneous Note Purpose of Documentation: Update on patient care Note: Has had multiple episodes of diarrhea after Gastrografin administration, has been ambulating no significant abdominal distention pain. Will obtain abdominal x-ray and after that we will plan to remove NG tube allow to advance to clears. We may consider to do magnesium citrate to completely evacuate the colon due to significant constipation.
--- NOTE | 2024-08-08 12:47 | PM.MISC ---
Miscellaneous Note Purpose of Documentation: Update on patient care Note: KUB shows evidence of contrast at the level of the colon, no distended bowel. I will remove the NG tube advance to clears I will allow the patient to have clears and I will probably give her a dose of mag citrate this afternoon with a compromise that she may become significantly nauseous from this which is expected.
--- NOTE | 2024-08-08 13:49 | P.PN_ITS ---
Subjective 2 Subjective: No acute events overnight. Patient has remained hemodynamically stable and afebrile. Received Gastrografin from surgical team today. Having diarrhea today morning. States feeling a lot better. Denies any nausea. Vitals/I&O/Wt Last Vital Signs Temp 97.8 F 08/08/24 11:41 Pulse 83 08/08/24 11:41 Resp 18 08/08/24 11:41 BP 147/71 08/08/24 11:41 Pulse Ox 92 08/08/24 11:41 O2 Del Method Room Air 08/08/24 11:41 08/07/24 08/08/24 08/08/24 22:59 06:59 14:59 Intake Total 144.500 / 052.184 5898.233 / 1236.725 73.517 / 73.517 Balance 144.500 / 530.954 3901.233 / 1236.725 73.517 / 73.517 Weight last 48 hrs Weight 58.151 kg Weight 60.373 kg Weight 58.06 kg Physical Exam 2 Narrative: General Well-developed well-nourished thin female in no acute cardiopulmonary stress, AO x 2 to 3, forgetful CV regular rate and rhythm Lungs clear to auscultation bilaterally Abdomen hyperactive moderately tympanitic bowel tones. Abdomen is soft but there is diffuse tenderness without rebound Calves no tenderness cords pretrip edema Skin warm and dry Mood and affect pleasant cooperative Data 08/08/24 04:14 08/08/24 04:14 Micro: Microbiology 08/06/24 06:06 Urine Culture - Final Urine,Clean Catch A&P Assessment and plan (1) SBO (small bowel obstruction): Appreciate surgical recommendations. Conservative treatment. NG tube management as per surgical team. Enema as per surgical team. Continue with D5 NS at 50 cc/h. Protonix daily, Zofran as needed. Out of bed to chair. (2) Alzheimer dementia: Stable (3) Chronic constipation: Plan Hypertension: Goal blood pressure less than 140/90 mmHg. Takes Coreg at home. Continue with metoprolol 2.5 mg every 4 hours as needed for heart of more than 100 bpm. Add hydralazine 10 mg every 4 hours as needed for systolic of more than 160. Chronic anticoagulation: Takes for atrial fibrillation. Continue with heparin drip for now. Takes Eliquis at home. Full code N.p.o. Protonix for PUD prophylaxis Heparin was sufficient for DVT prophylaxis Plan for the day: NG tube management, Gastrografin study, advancement of diet as per surgical team. For now continue with heparin drip. Once able to maintain orally can switch to Eliquis. Continue with IV fluid with D5 NS at 50 cc/h. This care discussed in detail with patient's at bedside. Blood pressure is well-controlled. For now continue with current management. PDMP PDMP Reviewed: Not Reviewed Attestations 2 Medical Necessity Statement*: Requires further hospitalization for management of recurrent bowel obstruction undergoing conservative treatment Diagnoses SBO (small bowel obstruction) K56.609 Alzheimer dementia G30.9; F02.80 Chronic constipation K59.09
--- NOTE | 2024-08-08 15:43 | ECG_ITS ---
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
[2024-08-08] MEDS: magnesium citrate Btl 296 mL PO (16:41)
[2024-08-08 18:05] LABS: Partial Thromboplastin Time 42.1 SECONDS (23.9-36.7)
[2024-08-08] MEDS: dextrose 5%-sod chloride 0.9% 1,000 ML 50 ML IV (19:15)
[2024-08-09] VITALS: BP 185/72; PULSE 76; RESP 18; TEMP 36.9; O2SAT 94
[2024-08-09 02:34] LABS: Partial Thromboplastin Time 76.8 SECONDS (23.9-36.7)
[2024-08-09 04:00] VITALS: BP 166/63; PULSE 80; RESP 16; TEMP 36.9; O2SAT 93
[2024-08-09 07:35] VITALS: BP 153/73; PULSE 71; RESP 18; TEMP 36.7; O2SAT 94
--- NOTE | 2024-08-09 07:58 | P.PN_ITS ---
Subjective 2 Subjective: Patient is doing very well over the last 24 hours tolerating diet has had multiple bowel movements. Drink half of the bottle of the mag citrate and plans to finish the bottle today. Vitals/I&O/Wt Last Vital Signs Temp 98.1 F 08/09/24 07:35 Pulse 71 08/09/24 07:35 Resp 18 08/09/24 07:35 BP 153/73 08/09/24 07:35 Pulse Ox 94 08/09/24 07:35 O2 Del Method Room Air 08/09/24 07:35 08/08/24 08/09/24 08/09/24 22:59 06:59 14:59 Intake Total 1032 / 1105.517 117.6 / 1223.117 Balance 1032 / 1105.517 117.6 / 1223.117 Weight last 48 hrs Weight 129 lb 3.2 oz Weight 128 lb 3.2 oz Physical Exam 2 GI: OTHER: Abdomen is soft nontender nondistended. Data 08/08/24 04:14 08/08/24 04:14 Micro: Microbiology 08/06/24 06:06 Urine Culture - Final Urine,Clean Catch A&P Assessment and plan (1) Chronic nausea: (2) Chronic abdominal pain: Plan Excellent progression over the last 24 hours, bowel obstruction/constipation has resolved. Patient is cleared for transition to the outpatient setting from the general surgery standpoint she should continue on a full liquid diet for the next 2 weeks and twice a day MiraLAX. Patient shows understanding agrees with the plan. All other management per medical team PDMP PDMP Reviewed: Not Reviewed Attestations 2 Medical Necessity Statement*: Per medical team Coding Level of Care Code Acute Code for Chg Fwd Diagnoses Chronic nausea R11.0 Chronic abdominal pain R10.9; G89.29
[2024-08-09] MEDS: pantoprazole 40 mg SDV IVP (08:25)
--- NOTE | 2024-08-09 08:34 | PM.DCS ---
Discharge Providers Date of Admission: 08/06/24 05:44 Date of Discharge: August 09, 2024 Attending Provider at Admission: Chandler Mcnamara MD Attending Provider at Discharge: Evans Aquino MD Consults: Surgery: Dr. Elier Elam Primary Care Provider: Anna Gomez MD Diagnoses at Discharge Discharge Diagnosis (1) Chronic nausea: Status: Chronic (2) Chronic abdominal pain: Status: Chronic Permanent problem details: uses morphine only if severe abd pain to keep her out of ER Reason for Visit Reason for Visit: Vomiting Possible Blockage Brief History: History as per HPI: Anju Duffy is a 79 year old female Developed nausea vomiting starting with nausea at 4 PM. 12 AM she vomited but no blood she denies abdominal pain she has had liquid stools soft and weight has been steady at 127-130. Notably she is not passing gas since 4 PM 08/05 and her last BM was yesterday before that. Patient is not a very good historian she has dementia and will refer to the fact that she has Alzheimer's so does not know. History is assisted by her Bill Bill thinks patient would benefit from half to 1 bottle of mag citrate once a week Hospital Course Hospital Course Patient was admitted to the hospital for management of recurrent bowel obstruction. Surgery was consulted and she was started on conservative treatment with bowel decompression. She responded well to the treatment and gradually her bowel functions resumed. She has been discharged in medically stable condition on oral full liquid diet for next 2 weeks with advised to follow-up with surgical team as an outpatient in 2 weeks. Physical Exam Narrative: General Well-developed well-nourished thin female in no acute cardiopulmonary stress, AO x 2 to 3, forgetful CV regular rate and rhythm Lungs clear to auscultation bilaterally Abdomen hyperactive moderately tympanitic bowel tones. Abdomen is soft but there is diffuse tenderness without rebound Calves no tenderness cords pretrip edema Skin warm and dry Mood and affect pleasant cooperative Discharge Data Studies Completed and Pending Completed Studies During Hospitalization Category Date Time Status CT abdomen pelvis wo con [id number] Stat Cat Scan 08/06/24 02:51 Completed XR KUB [id number] Urgent Exams 08/08/24 10:56 Completed XR KUB portable [id number] Routine Exams 08/06/24 06:50 Completed XR KUB portable [id number] Stat Exams 08/08/24 06:19 Completed XR acute abdomen series [id number] Stat Exams 08/06/24 01:04 Completed Pending at discharge Category Date Time Status Platelet Count Q2D Lab 08/10/24 04:00 Ordered Radiology Impressions Chest/Abdomen X-ray 08/06/24 01:04 IMPRESSION: No identified transition point or obstruction. No visualized acute pathology within the abdomen. Abdomen/Pelvis CT 08/06/24 02:51 IMPRESSION: 1. Similar-appearing dilated fluid-filled loops of small bowel in the pelvis which demonstrate possible focal transition of the ileocolic anastomosis. No evidence for ischemia at this time. It is noted again that the patient has a large fecal burden, and this again may be ileus secondary to constipation. Correlate clinically for small bowel obstruction. 2. Similar appearance of the kidneys including an indeterminate left renal lesion, again nonemergent renal mass protocol CT/MRI is recommended. KUB X-Ray 08/08/24 10:56 IMPRESSION: Enteric contrast throughout the small bowel and colon. Laboratory Results WBC 11.27 10^3/uL (3.29-11.43) 08/08/24 04:14 RBC 5.02 10^6/uL (3.85-5.65) 08/08/24 04:14 Hgb 15.30 g/dL (11.27-16.99) 08/08/24 04:14 Hct 48.6 % (36-47) H 08/08/24 04:14 MCV 96.8 fl (85-98) 08/08/24 04:14 MCH 30.5 pg (27-33) 08/08/24 04:14 MCHC 31.5 g/dL (30-55) 08/08/24 04:14 RDW 13.0 % (12.1-15.1) 08/08/24 04:14 Plt Count 185 10^3/cmm (157-399) 08/08/24 04:14 MPV 10.7 fL (7.4-10.4) H 08/08/24 04:14 Neut % (Auto) 74.3 % 08/08/24 04:14 Lymph % (Auto) 14.6 % 08/08/24 04:14 [place] % (Auto) 10.0 % 08/08/24 04:14 Eos % (Auto) 0.5 % 08/08/24 04:14 Baso % (Auto) 0.3 % 08/08/24 04:14 Neut # (Auto) 8.37 10^3/uL (1.8-7.7) H 08/08/24 04:14 Lymph # (Auto) 1.7 10^3/uL (0.8-4.8) 08/08/24 04:14 [place] # (Auto) 1.1 10^3/uL (0.2-0.9) H 08/08/24 04:14 Eos # (Auto) 0.1 10^3/uL (0.0-0.8) 08/08/24 04:14 Baso # (Auto) 0.0 10^3/uL (0.0-0.1) 08/08/24 04:14 Nucleated RBC % (auto) 0 % 08/08/24 04:14 Nucleated RBCs # 0.0 /100WBC 08/08/24 04:14 APTT 79.0 SECONDS (23.9-36.7) H 08/09/24 07:05 Sodium 137 mmol/L (136-145) 08/08/24 04:14 Potassium 3.9 mmol/L (3.5-5.1) 08/08/24 04:14 Chloride 100 mmol/L (98-107) 08/08/24 04:14 Carbon Dioxide 24 mmol/L (22-29) 08/08/24 04:14 Anion Gap 16.9 (5-19) 08/08/24 04:14 BUN 9 mg/dL (8-23) 08/08/24 04:14 Creatinine 0.4 mg/dL (0.5-0.9) L 08/08/24 04:14 GFR Calculation Not Reportable 08/08/24 04:14 Glucose 124 mg/dL (65-115) H 08/08/24 04:14 Estimat Average Glucose 117 08/06/24 01:52 Hemoglobin A1c 5.7 % (4.0-6.0) 08/06/24 01:52 Calculated Osmolality 284 mOsm/kg (285-295) L 08/08/24 04:14 Lactic Acid 1.4 mmol/L (0.5-2.2) 08/06/24 01:52 Calcium 8.9 mg/dL (8.5-10.5) 08/08/24 04:14 Phosphorus 3.7 mg/dL (2.5-4.5) 08/06/24 01:52 Magnesium 2.0 mg/dL (1.7-2.3) 08/09/24 01:06 Iron 108 ug/dL (37-145) 08/06/24 01:52 TIBC 374 mcg/dl 08/06/24 01:52 % Saturation 28.8 % (20-50) 08/06/24 01:52 Unsat Iron Binding 266 ug/dL (112-347) 08/06/24 01:52 Total Bilirubin 2.6 mg/dL (0.15-1.2) H 08/08/24 04:14 AST 33 U/L (0-32) H 08/08/24 04:14 ALT 28 U/L (0-33) 08/08/24 04:14 Alkaline Phosphatase 78 U/L (35-105) 08/08/24 04:14 Total Protein 6.1 g/dL (6.6-8.7) L 08/08/24 04:14 Albumin 4.0 g/dL (3.5-5.2) 08/08/24 04:14 Globulin 2.1 g/dL (1.3-4.6) 08/08/24 04:14 Triglycerides 83 mg/dL (0-150) 08/07/24 02:53 Cholesterol 159 mg/dL (0-200) 08/07/24 02:53 LDL Cholesterol, Calc 84 mg/dL (50-129) 08/07/24 02:53 Total VLDL Cholesterol 17 mg/dL (0-30) 08/07/24 02:53 HDL Cholesterol 58 mg/dL (60-100) L 08/07/24 02:53 Cholesterol/HDL Ratio 2.74 mg/dL (0.0-4.40) 08/07/24 02:53 Lipase 157 U/L (13-60) H 08/06/24 01:52 Vitamin B12 465 pg/mL (232-1245) 08/06/24 01:52 Folate > 20.0 ng/mL (4.8-37.3) 08/07/24 02:53 Procalcitonin 0.05 ng/mL (0-0.5) 08/06/24 01:52 TSH 2.23 uIU/mL (0.27-4.20) 08/07/24 02:53 Free T4 1.28 ng/dL (0.82-1.77) 08/06/24 01:52 Free T3 4.4 PG/ML (2.0-4.4) 08/06/24 01:52 Urine Color Yellow (Yellow) 08/06/24 06:06 Urine Appearance Clear (CLEAR) 08/06/24 06:06 Urine pH 6.5 (5-7) 08/06/24 06:06 Ur Specific [place] 1.018 (1.005-1.030) 08/06/24 06:06 Urine Protein 1+ (Negative) A 08/06/24 06:06 Urine Glucose (UA) Negative (Normal) 08/06/24 06:06 Urine Ketones Trace (Negative) 08/06/24 06:06 Urine Blood 2+ (Negative) A 08/06/24 06:06 Urine Nitrate Negative (Negative) 08/06/24 06:06 Urine Bilirubin Negative (Negative) 08/06/24 06:06 Urine Urobilinogen 1.0 mg/dL (Negative) 08/06/24 06:06 Ur Leukocyte Esterase Trace (Negative) A 08/06/24 06:06 Urine RBC 21-50 /hpf (0-2) H 08/06/24 06:06 Urine WBC 0-5 /hpf (0-5) 08/06/24 06:06 Ur Squamous Epith Cells 0-5 /hpf (0-5) 08/06/24 06:06 Amorphous Sediment Not Reportable 08/06/24 06:06 Urine Bacteria None seen /hpf (NONE) 08/06/24 06:06 Hyaline Casts 2.46 /lpf 08/06/24 06:06 Vitals Last Vital Signs Temp 98.1 F 08/09/24 07:35 Pulse 71 08/09/24 07:35 Resp 18 08/09/24 07:35 BP 153/73 08/09/24 07:35 Pulse Ox 94 08/09/24 07:35 O2 Del Method Room Air 08/09/24 07:35 Discharge Plan Discharge Patient Disposition: Home Condition: Stable Prescriptions: Continued morphine 15 mg tablet 15 mg PO TID PRN (Reason: pain) 90 Days Qty: 10 0RF potassium chloride [Klor-Con 10] 10 mEq tablet extended release 10 meq PO DAILY Qty: 90 3RF buspirone 10 mg tablet 10 mg PO BID Qty: 60 11RF Eliquis 5 mg tablet 5 mg PO BID Qty: 180 3RF carvedilol [Coreg] 6.25 mg tablet 6.25 mg PO BEDTIME Qty: 90 0RF polyethylene glycol 3350 17 gram Powder In Packet 17 g PO BID 30 Days Qty: 30 0RF carvedilol 25 mg tablet 12.5 mg PO QAM ondansetron HCl 8 mg tablet 8 mg PO TID PRN (Reason: Nausea And Vomiting) amlodipine 2.5 mg tablet 2.5 mg PO DAILY Discharge Orders: Discharge Order (Routine); Ordered 08/09/24 Ordered By: Evans Aquino Referrals: Anjel Degroot MD [Physician, General Surgery] - 2 weeks Referral Note: We have notified your physician's clinic of the need for a follow-up appointment to be scheduled. If you have not heard from them within the next 2 business days, please call them directly. Anna Gomez MD [Primary Care Provider, Family Practice] - 7-10 days Referral Note: We have notified your physician's clinic of the need for a follow-up appointment to be scheduled. If you have not heard from them within the next 2 business days, please call them directly. Discharge Diet: Full LIquid Discharge Activity: Resume usual activity and Increase activity as tolerated Patient Instructions: Alzheimer Disease (GEN), Bowel Obstruction (GEN), Full Liquid Diet (DC), Opioid Safety Activity Restrictions/Additional Instructions: General Surgery instructions: Please follow the full liquid diet for the next 2 weeks I will see you in the clinic before advancing. You need to have twice a day MiraLAX. Return to the hospital have severe abdominal pain getting worse over time nausea and vomiting. Discharge Attestations Time Spent in Discharge Care*: greater than 30 min Specific Discharge Activities: educating patient, educating and/or supporting family/caregiver, discussing with pcp/other providers, discussing with case resource manager/social workers/dc planners, documenting/other paperwork and evaluating patient/reviewing data Status at Discharge: Cognitive status at discharge: mildly impaired cognition, Behavioral status at discharge: cooperative, Functional status at discharge: independent ambulation, Overall status at discharge: patient is back to baseline Quality Metrics Clinical Quality Measures [ No reported AMI, CVA or VTE this stay] Coding Level of Care Code 49884 Total time (in minutes) for Discharge: 65 Diagnoses Chronic nausea R11.0 Chronic abdominal pain R10.9; G89.29
[2024-08-09 11:10] VITALS: BP 139/67; PULSE 70; RESP 18; TEMP 36.8; O2SAT 93
[2024-08-09 11:20] VITALS: BP 139/67; PULSE 70; O2SAT 93
== END 2024-08-09 11:21 | disposition home or self-care (01) | DRG 390 ==
LOC: ER 05:46 → ER IP 05:58 → MEDSURG 13:48
PROVIDERS: Surgery; Admitting Provider Internal Medicine; Emergency Provider Emergency Medicine; PCP Family Medicine; Visit Provider Student in an Organized Health Care Education/Training Program
DX: K56.609 Unspecified intestinal obstruction, unspecified as to partial versus complete obstruction (principal); G30.9 Alzheimer's disease, unspecified; F02.80 Dementia in other diseases classified elsewhere, unspecified severity, without behavioral disturbance, psychotic disturbance, mood disturbance, and anxiety; R10.9 Unspecified abdominal pain; G89.29 Other chronic pain; F17.210 Nicotine dependence, cigarettes, uncomplicated; I48.91 Unspecified atrial fibrillation; F41.1 Generalized anxiety disorder; M19.90 Unspecified osteoarthritis, unspecified site; K59.09 Other constipation; I10 Essential (primary) hypertension; Z90.49 Acquired absence of other specified parts of digestive tract; Z90.710 Acquired absence of both cervix and uterus; Z79.899 Other long term (current) drug therapy; Z79.01 Long term (current) use of anticoagulants; Z88.8 Allergy status to other drugs, medicaments and biological substances; Z88.1 Allergy status to other antibiotic agents; Z91.040 Latex allergy status
CPT/HCPCS: 36415; 74018; 74022; 74176; 80053; 80061; 81001; 82607; 82746; 83036; 83540; 83550; 83605; 83690; 83735; 84100; 84145; 84439; 84443; 84481; 85025; 85730; 87086; 93005; 96361; 96374; 96375; 99285; J0360; J1644; J2270; J2405; J2470; J3480; J7030; J7042; J9999; Q9963

== ENCOUNTER → 2024-10-20 13:11 | Outpatient (BNVA) | payer MEDICARE, OTHER, SELFPAY | PROVIDERS: PCP Family Medicine; Referring Provider Family Medicine; Visit Provider Psychiatry & Neurology Neurology | DX: R41.3 Other amnesia (principal) | CPT/HCPCS: 99212 ==

== ENCOUNTER 2024-11-13 09:15 | Outpatient (CLI) | payer MEDICARE, SELFPAY ==
--- NOTE | 2024-11-13 09:30 | MR_ITS ---
WS: [id number] MRI OF THE ABDOMEN WITHOUT GADOLINIUM ENHANCEMENT TECHNIQUE: Coronal T2 Fase BH, Axial T2 Fase BH, Axial T2 FS BH, Zxial 3D Reid BH, CLINICAL INFORMATION: renal mass COMPARISON: MRCP 2023. CT 08/06/2024 and additional CTs dating back to 2022 FINDINGS: Some images limited due to motion and respiratory artifact Prior CT showed increased attenuation RIGHT upper pole renal lesion. This corresponds to a cyst on today's study measuring 7 mm. Additional RIGHT lower pole renal cyst measuring 7 mm. Low-attenuation lesion LEFT kidney described on the prior CT also corresponds to a cyst today. This cyst measures 13 mm. Additional smaller cyst in the lower pole. No hydronephrosis in either kidney. Prior cholecystectomy. Visualized pancreas appears grossly normal considering motion artifact. No other suspicious findings. MR/MR abdomen wo con [id number] Impression: Some images limited by motion and respiratory artifact 1. Bilateral renal cysts described above. No suspicious renal lesions. 2. Hydronephrosis in either kidney. 3. Prior cholecystectomy.
== END 2024-11-13 09:16 | disposition home or self-care (01) ==
PROVIDERS: PCP Family Medicine; Visit Provider Family Medicine
DX: N28.89 Other specified disorders of kidney and ureter (principal); N28.1 Cyst of kidney, acquired; Z90.49 Acquired absence of other specified parts of digestive tract
CPT/HCPCS: 74181

== ENCOUNTER 2024-12-22 23:20 | Inpatient (IN) | payer MEDICARE, OTHER, SELFPAY ==
[2024-12-22 23:24] VITALS: BP 207/117; PULSE 85; RESP 17; TEMP 36.8; O2SAT 99; BMI 21.9
[2024-12-23] VITALS (125 sets, daily range): BP systolic 97–204; BP diastolic 39–134; PULSE 63–93; RESP 10–30; TEMP 36.6–37; O2SAT 87–100
[2024-12-23 00:32] LABS: Hematocrit 53.0 % (36-47); Hemoglobin 17.80 g/dL (11.27-16.99); Mean Corpuscular HGB Conc 33.6 g/dL (30-55); Mean Corpuscular Hemoglobin 30.0 pg (27-33); Mean Corpuscular Volume 89.2 fl (85-98); Nucleated Red Blood Cells % 0 %; Platelet Count 211 10^3/cmm (157-399); Red Blood Count 5.94 10^6/uL (3.85-5.65); White Blood Count 11.57 10^3/uL (3.29-11.43)
--- NOTE | 2024-12-23 00:42 | CTR_ITS ---
PROCEDURE INFORMATION: Exam: CT Abdomen And Pelvis With Contrast Exam date and time: 12/23/2024 1:17 AM Age: 79 years old Clinical indication: Abdominal pain; Prior surgery; Surgery date: 6+ months; Surgery type: 13 different surgeries on abdomen. Colectomy, 1x csection, cholecystectomy, appendectomy, genaro-bso (endometriosis), multiple surgeries for bowel obstructions; Additional info: Diffuse abd pain, n/v TECHNIQUE: Imaging protocol: Computed tomography of the abdomen and pelvis with contrast. Radiation optimization: All CT scans at this facility use at least one of these dose optimization techniques: automated exposure control; mA and/or kV adjustment per patient size (includes targeted exams where dose is matched to clinical indication); or iterative reconstruction. Contrast material: OMNI 350; Contrast volume: 100 ml; Contrast route: INTRAVENOUS (IV); COMPARISON: MR abdomen wo con [id number] 11/13/2024 9:41 AM , CT abdomen and pelvis dated 08/06/2024 RADIATION DOSE METRICS: Total DLP (mGy-cm): 380.63 FINDINGS: Liver: Normal. No mass. Gallbladder and biliary ducts: Stable pneumobilia with comparison the prior examination. The gallbladder is surgically absent. Stable bile duct dilatation involving the central and extrahepatic ducts. Smooth tapering to the level of the ampulla is noted. No clear biliary obstruction or stricture is noted. Pancreas: Normal. No ductal dilation. Spleen: Parenchymal calcifications are seen throughout the spleen, likely reflecting prior granulomatous changes. The spleen is otherwise normal. Adrenal glands: The bilateral adrenal glands are mildly thickened, which is nonspecific but can be seen in the setting of adenomatous hyperplasia. Kidneys and ureters: Simple bilateral renal cysts are present (Bosniak 1). No follow-up required. Stomach and bowel: Extensive postsurgical changes are seen throughout the abdomen. Correlate with patient's surgical history. Surgical anastomosis is seen in the right lower quadrant small bowel, consistent with prior resection. Dilatation of mid/distal small bowel with multiple air-fluid levels is noted. No bowel wall thickening. Suggestion of trace volume interloop fluid. No pneumatosis or portal venous gas. No discrete mechanical transition point can be identified within the limitations of the exam. Findings would be suggestive of transition at the ileocolic junction. A moderate colonic stool burden is noted. Fecalization of the distal small bowel. Appendix: No evidence of appendicitis. Intraperitoneal space: Unremarkable. No free air. No significant fluid collection. Vasculature: Mild atherosclerosis of the aorta and its major branching vessels is noted. Lymph nodes: Unremarkable. No enlarged lymph nodes. Urinary bladder: Unremarkable as visualized. Reproductive: The uterus is surgically absent. Bones/joints: Unremarkable. No acute fracture. Soft tissues: Soft tissue changes from midline laparotomy are noted. CT/CT abdomen pelvis w con* [id number] IMPRESSION: 1. Similar findings concerning for partial small bowel obstruction and/or ileus. No discrete mechanical transition point, suspicion for ileocolic anastomosis origin. Findings could be secondary to slow transit and/or constipation given moderate colonic stool burden and fecalization of the distal ileum. 2. Stable pneumobilia. Correlate with prior procedural history. 3. Intra and extrahepatic bile duct dilatation favored to represent reservoir effect in the post cholecystectomy state. Consider correlation with LFTs/bilirubin. Nonemergent follow-up MRCP can be obtained if clinically indicated. 4. Otherwise, no acute process in the abdomen or pelvis to explain the patient's symptoms. COMMENTS: Consistent with the [employer]'s Incidental Findings Committee white paper (J Am Patricia Radiol 2018): Any incidental renal lesion less than 1 cm or classified as too small to characterize, or any incidental cystic renal lesion characterized as simple-appearing, is likely benign. No follow-up imaging is recommended for these lesions per consensus recommendations based on imaging criteria.
--- NOTE | 2024-12-23 00:42 | ECG_ITS ---
[facility] Test Date: 2024-12-23 Pat Name: Anju Duffy Department: Room: Gender: Female Nuclear Monitoring Technician: : 1945 Requested By: Vanesa Richards Order Number: [id number] Lindsay MD: Ayush Johnson M.D. Measurements Intervals [place] Rate: 88 P: 89 NE: 181 QRS: -12 QRSD: 130 T: 99 QT: 418 QTc: 507 Interpretive Statements SINUS RHYTHM LEFT VENTRICULAR HYPERTROPHY AND ST-T CHANGE [VOLTAGE CRITERIA PLUS ST/T ABNORMALITY] Compared to ECG 08/08/2024 15:43:28 Left ventricular hypertrophy now present ST (T wave) deviation now present Electronically Signed On 12-23-2024 16:52:06 CDT by Ayush Johnson M.D. [id number]
[2024-12-23 00:54] LABS: Troponin(5th) Baseline 42 ng/L (0-10)
[2024-12-23] MEDS: ondansetron 2 mg/ML SDV 2 mL 4 MG IVP ×3 (00:55→08:29)
[2024-12-23] MEDS: acetaminophen 1,000 MG/100 ML PIGGYBACK 400 MG IV (00:55)
[2024-12-23 01:01] LABS: Alanine Aminotransferase 15 U/L (0-33); Albumin Level 4.7 g/dL (3.5-5.2); Alkaline Phosphatase 77 U/L (35-105); Anion Gap 21.2 (5-19); Aspartate Amino Transferase 26 U/L (0-32); Blood Urea Nitrogen 18 mg/dL (8-23); Calcium 9.9 mg/dL (8.5-10.5); Carbon Dioxide 22 mmol/L (22-29); Chloride 101 mmol/L (98-107); Creatinine Clr Calc Pharmacy 48.1879; Globulin 2.4 g/dL (1.3-4.6); Glucose 157 mg/dL (65-115); Lipase 32 U/L (13-60); NT Pro B Type Natriuretic Pept 258 pg/mL (0-450); Osmolality Calculated 295 mOsm/kg (285-295); Potassium 4.2 mmol/L (3.5-5.1); Sodium 140 mmol/L (136-145); Total Protein 7.1 g/dL (6.6-8.7)
--- NOTE | 2024-12-23 01:04 | W.ED.GENADLT ---
HPI - General Adult General: Chief complaint: Abdominal Pain Stated complaint: High BP, N/V Time Seen by Provider: 12/22/24 23:29 History of Present Illness: Patient is a 79-year-old female presenting with a chief complaint of acute abdominal pain, nausea, vomiting, pain with radiation to the retrosternal chest area since 19:30 this evening. Pain started after eating a large pretzel. Patient has a significant history for 13 abdominal surgeries including cholecystectomy, appendectomy, hernia repair, multiple bowel resections, diverticulitis. Due to this, she has frequent bowel obstructions. She has had a normal bowel movement today prior to onset of pain. Patient has not had a fever. She denies worsening shortness of breath though she does admit that she is a smoker and has chronic shortness of breath. She denies any urinary symptoms or leg swelling. Patient has a history of Alzheimer's dementia and is a poor historian. Her provides supplemental history of note, her was concerned and brought her to the emergency department due to noted elevated blood pressure at home of systolic over 200. Patient has not had any vision changes, headache, increased confusion from baseline, orthopnea, lower extremity edema, difficulty urinating. Related Data Home Medications ?Medication ?Instructions ?Recorded ?Confirmed ondansetron HCl 8 mg tablet 8 mg PO TID PRN Nausea And Vomiting 08/06/24 11/30/24 carvedilol 25 mg tablet 12.5 mg PO BID 10/29/24 11/30/24 memantine 5 mg tablet 5 mg PO BID 11/30/24 11/30/24 Previous Rx's ?Medication ?Instructions ?Recorded morphine 15 mg immediate release 15 mg PO TID PRN pain 90 days #10 12/24/23 tablet tabs Covid Vaccine #1 ea 11/16/24 buspirone 10 mg tablet See Rx Instructions .Route 11/20/24 .COMPLEX #360 tabs hydroxyzine HCl 10 mg tablet 10 mg PO .QHS PRN itching #30 tabs 11/30/24 potassium chloride 10 mEq 10 meq PO DAILY #90 tabs 12/19/24 tablet,extended release (Klor-Con) Allergies Allergy/AdvReac Type Severity Reaction Status Date / Time azithromycin Allergy ALGY-Anaphy Verified 10/20/24 13:16 laxis Latex, Natural Rubber Allergy ALGY-Rash Verified 10/20/24 13:16 olanzapine (From Zyprexa) Allergy hallucinati Verified 10/20/24 13:16 ons/agitate d lorazepam (From Ativan) AdvReac hallucination, Verified 10/20/24 13:16 agitated [facility] PFS: Medical History (Updated 12/23/24 @ 04:51 by Vanesa Richards MD) Left shoulder pain Left upper arm pain after immunization given fall 2023 at 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 Roberts Hx of abdominal surgery has had total of 13 abd surgeries---most related to bowel obstructions due to adhesions and had complication of bowel laceration with surgery and had infection Hx of appendectomy History of delivery X 1 History of neck surgery History of cholecystectomy H/O hernia repair inguinal; hx of mesh H/O colectomy due to bowel obstruction from adhesions; S/P dilatation of esophageal stricture S/P ANH-BSO endometriosis; no cancer Family History Mother Congestive heart failure (CHF) Rheumatoid arthritis Social History Smoking and tobacco/nicotine status: never used tobacco/nicotine Alcohol intake: never Substance/Drug Use: never Lives independently: No Household members: spouse Marital status: Number of children: 3 Highest education level completed: Bachelor's Degree Current occupational status: retired 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 Patient is able to answer some questions. She is actively vomiting on my exam. EOMI. No facial asymmetry. Speech is clear. Neck is supple, no meningeal signs. She has appropriate SpO2 on RA though she does have occasional expiratory wheezing. No crackles noted, no LE edema or asymmetry. Patient has diffuse abdominal pain. She has healed surgical scars from previous surgeries. Course Vital Signs: Vital signs: Vital Signs Temperature 98.3 F 12/22/24 23:24 Pulse Rate 80 12/23/24 04:00 Respiratory Rate 15 12/23/24 02:29 Blood Pressure 156/85 12/23/24 04:00 Pulse Oximetry 100 12/23/24 04:00 Oxygen Delivery Me thod Oxymask 12/23/24 04:00 Oxygen Flow Rate 3 12/23/24 04:00 [facility] - General Adult Medical Decision Making 79-year-old female presents with a chief complaint of abdominal pain, nausea, vomiting, radiation of pain to her chest since 19:30 this evening. Patient's symptoms feel similar to previous bowel obstruction. She has a history of multiple bowel obstructions due to adhesions from numerous abdominal surgeries. Differential diagnosis includes but is not limited to, small versus large bowel obstruction, volvulus, hiatal hernia, gastroparesis, gastroenteritis, urinary tract infection, pyelonephritis, kidney stone, pulmonary pathology such as pneumonia, hypertensive emergency, other. On exam, patient appears uncomfortable and is actively vomiting. Patient was evaluate CBC, CMP, lipase, troponin, BNP, UA and CT of the abdomen pelvis with IV contrast. She was treated with IV [place] of and Zofran. Patient has an elevated white blood cell count and appears to have increased H/H, likely due to hemoconcentration/dehydration. Patient continues to have adequate kidney function and liver function but anion gap is mildly elevated. Patient's troponin is elevated. EKG shows normal sinus rhythm with a heart rate of 88, left axis deviation, evidence of left ventricular hypertrophy. Concerning findings include inverted T wave in lead I and aVL. In conjunction w/elevated troponin, this is concerning for ACS. Repeat EKG shows that she no longer has TWI in I and aVL. SHe does not have ST elevation in 1 contiguous leads and in V2 elevation is 1.5mm. There are Q waves present in V1 and V2. She also has a significant delta troponin. CT imaging shows: CT abd/pelvis: IMPRESSION: 1. Similar findings concerning for partial small bowel obstruction and/or ileus. No discrete mechanical transition point, suspicion for ileocolic anastomosis origin. Findings could be secondary to slow transit and/or constipation given moderate colonic stool burden and fecalization of the distal ileum. 2. Stable pneumobilia. Correlate with prior procedural history. 3. Intra and extrahepatic bile duct dilatation favored to represent reservoir effect in the post cholecystectomy state. Consider correlation with LFTs/bilirubin. Nonemergent follow-up MRCP can be obtained if clinically indicated. 4. Otherwise, no acute process in the abdomen or pelvis to explain the patient's symptoms. During her stay, patient also required oxygen support; she had mild wheezing and was treated w/duoneb and has been placed on 2L NC. At this time, her presentation is consistent w/NSTEMI. She continues to have quite a bit of abdominal pain w/palpation but during several of my reassessments, she has denied current chest pain to me. She is feeling much better. I feel that she does not beet radiographer cardiac catheterization criteria emergently but may need a cath urgently. She was started on heparin and admitted. Discussed w/bindery machine tender sephora operations consultant, who will see patient in the morning. Lab Data 12/23/24 00:20 12/23/24 00:20 Radiology Impressions Abdomen/Pelvis CT 12/23/24 00:42 IMPRESSION: 1. Similar findings concerning for partial small bowel obstruction and/or ileus. No discrete mechanical transition point, suspicion for ileocolic anastomosis origin. Findings could be secondary to slow transit and/or constipation given moderate colonic stool burden and fecalization of the distal ileum. 2. Stable pneumobilia. Correlate with prior procedural history. 3. Intra and extrahepatic bile duct dilatation favored to represent reservoir effect in the post cholecystectomy state. Consider correlation with LFTs/bilirubin. Nonemergent follow-up MRCP can be obtained if clinically indicated. 4. Otherwise, no acute process in the abdomen or pelvis to explain the patient's symptoms. COMMENTS: Consistent with the [employer]'s Incidental Findings Committee white paper (J Am Patricia Radiol 2018): Any incidental renal lesion less than 1 cm or classified as too small to characterize, or any incidental cystic renal lesion characterized as simple-appearing, is likely benign. No follow-up imaging is recommended for these lesions per consensus recommendations based on imaging criteria. Laboratory Results WBC 11.57 10^3/uL (3.29-11.43) H 12/23/24 00:20 RBC 5.94 10^6/uL (3.85-5.65) H 12/23/24 00:20 Hgb 17.80 g/dL (11.27-16.99) H 12/23/24 00:20 Hct 53.0 % (36-47) H 12/23/24 00:20 MCV 89.2 fl (85-98) 12/23/24 00:20 MCH 30.0 pg (27-33) 12/23/24 00:20 MCHC 33.6 g/dL (30-55) 12/23/24 00:20 RDW 12.8 % (12.1-15.1) 12/23/24 00:20 Plt Count 211 10^3/cmm (157-399) 12/23/24 00:20 MPV 10.6 fL (7.4-10.4) H 12/23/24 00:20 Neut % (Auto) 72.4 % 12/23/24 00:20 Lymph % (Auto) 18.8 % 12/23/24 00:20 [place] % (Auto) 5.8 % 12/23/24 00:20 Eos % (Auto) 2.2 % 12/23/24 00:20 Baso % (Auto) 0.5 % 12/23/24 00:20 Neut # (Auto) 8.37 10^3/uL (1.8-7.7) H 12/23/24 00:20 Lymph # (Auto) 2.2 10^3/uL (0.8-4.8) 12/23/24 00:20 [place] # (Auto) 0.7 10^3/uL (0.2-0.9) 12/23/24 00:20 Eos # (Auto) 0.3 10^3/uL (0.0-0.8) 12/23/24 00:20 Baso # (Auto) 0.1 10^3/uL (0.0-0.1) 12/23/24 00:20 Nucleated RBC % (auto) 0 % 12/23/24 00:20 Nucleated RBCs # 0.0 /100WBC 12/23/24 00:20 Sodium 140 mmol/L (136-145) 12/23/24 00:20 Potassium 4.2 mmol/L (3.5-5.1) 12/23/24 00:20 Chloride 101 mmol/L (98-107) 12/23/24 00:20 Carbon Dioxide 22 mmol/L (22-29) 12/23/24 00:20 Anion Gap 21.2 (5-19) H 12/23/24 00:20 BUN 18 mg/dL (8-23) 12/23/24 00:20 Creatinine 0.7 mg/dL (0.5-0.9) 12/23/24 00:20 GFR Calculation Not Reportable 12/23/24 00:20 Glucose 157 mg/dL (65-115) H 12/23/24 00:20 Calculated Osmolality 295 mOsm/kg (285-295) 12/23/24 00:20 Calcium 9.9 mg/dL (8.5-10.5) 12/23/24 00:20 Total Bilirubin 0.9 mg/dL (0.15-1.2) 12/23/24 00:20 AST 26 U/L (0-32) 12/23/24 00:20 ALT 15 U/L (0-33) 12/23/24 00:20 Alkaline Phosphatase 77 U/L (35-105) 12/23/24 00:20 Troponin T Baseline Cancelled 12/23/24 02:23 Troponin T 120 Minute 132.2 ng/L (0-10) H 12/23/24 02:49 Delta Troponin T 90.2 ABS# (0-10) H* 12/23/24 02:49 NT-Pro-B Natriuret Pep 258 pg/mL (0-450) 12/23/24 00:20 Total Protein 7.1 g/dL (6.6-8.7) 12/23/24 00:20 Albumin 4.7 g/dL (3.5-5.2) 12/23/24 00:20 Globulin 2.4 g/dL (1.3-4.6) 12/23/24 00:20 Lipase 32 U/L (13-60) 12/23/24 00:20 All radiology interpretation(s) finalized by discharge Discharge Plan Discharge Patient Disposition: Admitted As Inpatient Clinical Impression: Acute non-ST elevation myocardial infarction (NSTEMI), Asthma exacerbation in COPD Partial bowel obstruction Qualifiers: Intestinal obstruction type: obstruction due to adhesions Qualified Code(s): K56.51 - Intestinal adhesions [bands], with partial obstruction Condition: Stable Coding Level of Care Code ED Manager [place] for Tad Sanderson
[2024-12-23] MEDS: iohexol 350 mg/mL 500 mL Btl (per mL) IV (01:33)
[2024-12-23] MEDS: morphine 4 mg/mL SDV 1 mL 2 MG IVP (02:29)
--- NOTE | 2024-12-23 02:57 | ECG_ITS ---
[facility]: [facility]23 Pat Name: Anju Duffy Department: Room: Gender: Female Bookie: : 1945 Requested By: Vanesa Richards Order Number: [id number] Lindsay MD: Ayush Johnson M.D. Measurements Intervals [place] Rate: 80 P: 33 HI: 185 QRS: 53 QRSD: 84 T: 53 QT: 400 QTc: 462 Interpretive Statements SINUS RHYTHM SEPTAL MYOCARDIAL INFARCTION , AGE INDETERMINATE Compared to ECG 12/23/2024 01:28:55 Myocardial infarct finding now present Left ventricular hypertrophy no longer present ST (T wave) deviation no longer present Electronically Signed On 12-23-2024 16:51:53 CDT by Ayush Johnson M.D. [id number] [id number]
[2024-12-23 03:22] LABS: Troponin 5 2HR 132.2 ng/L (0-10); Troponin 5 2HR Delta 90.2 ABS# (0-10)
--- NOTE | 2024-12-23 04:08 | ECG_ITS ---
[facility] Date: 2024-12-23 Pat Name: Anju Duffy Department: Room: Gender: Female Ophthalmic Medical Assistant: : 1945 Requested By: Vanesa Richards Order Number: [id number] Lindsay MD: Gerri Sal M.D. Measurements Intervals [place] Rate: 76 P: 15 PA: 197 QRS: 45 QRSD: 81 T: 37 QT: 398 QTc: 450 Interpretive Statements SINUS RHYTHM WITH MARKED SINUS ARRHYTHMIA SEPTAL MYOCARDIAL INFARCTION , PROBABLY RECENT [40+ ms Q WAVE IN V1/V2] ACUTE SC Compared to ECG 12/23/2024 02:57:03 No significant changes Electronically Signed On 12-29-2024 20:00:09 CDT by Gerri Sal M.D. [id number] [id number]
[2024-12-23] MEDS: heparin 5,000 unit/mL INJ 1 mL 3800 UNIT IVP (04:10)
[2024-12-23] MEDS: heparin drip 25,000 UNIT/500 ML PREMIX 13.06 UNIT IV (04:12)
[2024-12-23 05:11] LABS: Partial Thromboplastin Time > 250.0 SECONDS (23.9-36.7)
--- NOTE | 2024-12-23 05:30 | P.HP_ITS ---
Providers/Chief Complaint 2 Admitting Physician: Pankaj Resendez MD Primary Care Provider: Reggie Lyn MD Chief Complaint: High BP, N/V History of Present Illness As per the previous notes, the patient is poor historian considering she has Alzheimer's dementia but was able to provide some information, and further history taken from collateral/family member: Anju Duffy is a 79 year old female presenting with a chief complaint of acute abdominal pain, nausea, vomiting, pain with radiation to the retrosternal chest since evening. Pain started after eating a large pretzel. Patient has a significant history for 13 abdominal surgeries including cholecystectomy, appendectomy, hernia repair, multiple bowel resections, diverticulitis. Due to this, she has frequent bowel obstructions and has been managed often by the surgery team. She has had a normal bowel movement today prior to onset of pain and also passing gas. There was no reported fever or chills or any diarrhea. The patient reported having chest pain central in nature but no diaphoresis with it. There is no orthopnea or PND, and no shortness of breath associated with the chest pain or abdominal pain. She is an active smoker and currently smokes half pack a day more than 30-40 years. Her blood pressure was elevated in the ER however she was asymptomatic in terms of any visual changes or any headache or any change from the baseline apart from abdominal pain and chest pain. [place] showed significant rise and was started on heparin infusion and further admission as NSTEMI, EKG reviewed and did not show ST segment elevation. Nonspecific T wave inversion in anterior chest leads appreciated Review of Systems 2 General: Reports: 10 or more systems reviewed and unremarkable except in HPI and below and ROS unobtainable due to mental status Medications/Allergies Home Medications ?Medication ?Instructions ?Recorded ?Confirmed ?Last Taken ?Type morphine 15 mg immediate release 15 mg PO TID PRN pain 90 days #10 12/24/23 11/30/24 Unknown Rx tablet tabs ondansetron HCl 8 mg tablet 8 mg PO TID PRN Nausea And Vomiting 08/06/24 11/30/24 Unknown History carvedilol 25 mg tablet 12.5 mg PO BID 10/29/24/05/05 Unknown History Covid Vaccine #1 ea 11/16/24 11/30/24 Unkn own Rx buspirone 10 mg tablet See Rx Instructions .Route 0 11/20/24 11/30/24 Unknown Rx .COMPLEX #360 tabs hydroxyzine HCl 10 mg tablet 10 mg PO .QHS PRN itching #30 tabs 11/30/24 11/30/24 Unknown Rx memantine 5 mg tablet 5 mg PO BID 11/30/24 5 Unknown History potassium chloride 10 mEq 10 meq PO DAILY #90 tabs 02/02 Unknown Rx tablet,extended release (Klor-Con) Allergies Allergy/AdvReac Type Severity Reaction Status Date / Time azithromycin Allergy ALGY-Anaphy Verified 12/23/24 05:41 laxis Latex, Natural Rubber Allergy ALGY-Rash Verified 12/23/24 05:41 olanzapine (From Zyprexa) Allergy hallucinati Verified 12/23/24 05:41 ons/agitate d lorazepam (From Ativan) AdvReac hallucination, Verified 12/23/24 05:41 agitated PFSH Acute 2 PFSH: Medical History (Updated 12/23/24 @ 06:42 by Pankaj Resendez MD) Left shoulder pain Left upper arm pain after immunization given fall 2023 at [facility] Balance problem Depression, major Pain management contract signed Chronic abdominal pain uses morphine only if severe abd pain to keep her out of ER Hx MRSA infection hx of necrotizing fasciitis and hx of MRSA sepsis Hypokalemia Nicotine dependence, cigarettes, with unspecified nicotine-induced disorders Chronic constipation Hx SBO Atrial fibrillation 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 Roberts Hx of abdominal surgery has had total of 13 abd surgeries---most related to bowel obstructions due to adhesions and had complication of bowel laceration with surgery and had infection Hx of appendectomy History of delivery X 1 History of neck surgery History of cholecystectomy H/O hernia repair inguinal; hx of mesh H/O colectomy due to bowel obstruction from adhesions; S/P dilatation of esophageal stricture S/P ANH-BSO endometriosis; no cancer Family History Mother Congestive heart failure (CHF) Rheumatoid arthritis Social History Smoking and tobacco/nicotine status: never used tobacco/nicotine Alcohol intake: never Substance/Drug Use: never Lives independently: No Household members: spouse Marital status: Number of children: 3 Highest education level completed: Bachelor's Degree Current occupational status: retired 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; 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 Vitals/I&O/Wt Last Vital Signs Temp 98.3 F 12/22/24 23:24 Pulse 78 12/23/24 05:21 Resp 15 12/23/24 02:29 BP 148/74 12/23/24 05:21 Pulse Ox 92 12/23/24 05:21 O2 Del Method Room Air 12/23/24 05:21 O2 Flow Rate 3 12/23/24 04:00 12/22/24 12/22/24 12/23/24 14:59 22:59 06:59 Intake Total 100 / 100 Balance 100 / 100 Weight last 48 hrs Weight 54.431 kg Physical Exam 2 Narrative: General: Alert and oriented, lying comfortably without any distress HEENT: Normocephalic, atraumatic, grossly unremarkable exam Cardio: normal rate rhythm, normal S1-S2 without any murmurs, rubs, or gallops and JVD normal Respiratory: normal vascular breathing on auscultation without any wheezes, stridor, rhonchi GI: On inspection having multiple scars on abdomen, abdomen soft, tender and distended, mild rigidity also appreciated at the periumbilical region, normoactive bowel sounds present all 4 quadrants, Neuro: intact cranial nerves motor and sensory and cerebellar/coordination function without any focal neurological deficit Behavior: Appropriate and cooperative Extremities: Adequate palpable pulses, no edema or cyanosis observed. Data 12/23/24 00:20 12/23/24 00:20 A&P Assessment and plan 1. Acute non-ST elevation myocardial infarction (NSTEMI): - Patient given aspirin 324 mg once - Heparin infusion started and with continuous APTT monitoring -Continue aspirin 81 mg and high-dose statins - Echo - Telemetry monitoring - Cardiac consult - Monitor and correction of electrolytes accordingly - TSH around 8, sent for free T3 and T4 that further management based on the free T3-T4 results 2. Congestive heart failure: Patient has been seen cardiology and following for congestive heart failure/hypertension/atrial fibrillation. As per the documentation from the student affairs vice president on 06/24/24, managed with carvedilol 12.5 twice daily with 2.5 mg Considering patient actively smoking, repeat echo and to follow accordingly 3. Atrial fibrillation: Patient on carvedilol 12.5 mg twice daily, to resume after reconciliation and confirmation Telemetry Currently in sinus rhythm with sinus pauses Patient was documented in cardiology office note to be on apixaban 5 mg oral twice daily and is not mentioned in the home medications, to confirm further before initiating 4. Hyperlipidemia: Start 40 mg atorvastatin daily and to follow further cardio recs 5. Partial bowel obstruction: Patient had multiple scars of surgery on the abdomen Surgery on board consulted and followed the further plan 6. Alzheimer dementia: Currently at baseline Patient on memantine 5 mg twice daily, to reconcile and resume accordingly 7. Anxiety: Patient on buspirone 10 mg at home, to reconcile before giving 8. GUILLAUME (generalized anxiety disorder): As mentioned above 9. Cervical disc disease: Adequate analgesia to be given accordingly, Avoid overuse of opioids to avoid any bowel obstruction or constipation 10. Osteoarthritis: Stable, adequate analgesia continue PDMP PDMP Reviewed: Not Reviewed Attestations 2 Medical Necessity Statement*: [facility]'s hospital stay will require greater than 2 midnights for management of ACS/NSTEMI and partial subacute bowel obstruction Time Spent in Patient Care: 16 - 35 minutes (>than 50% of time sp ent in counselling and/or direct pt care on unit) . Other Attestations: Patient condition has been discussed at length with the patient/family, I have independently reviewed the chart labs imaging/diagnostics/EKG. the goals of care and code status with the patient/family/NOK/legal warehouse representative, and documented accordingly. The patient/family has been informed about the current condition and further plan of care. Agreed with the plan of care and understood without any language barrier. Every effort was made to ensure accuracy of computer hardware designer. Any obvious errors or omissions should be clarified with the author of the document. Coding Level of Care Code Acute Code for [facility] Fwd Diagnoses Acute non-ST elevation myocardial infarction (NSTEMI) I21.4 Congestive heart failure I50.9 Atrial fibrillation I48.91 Hyperlipidemia E78.5 Partial bowel obstruction K56.600 Alzheimer dementia G30.9; F02.80 Anxiety F41.9 GUILLAUME (generalized anxiety disorder) F41.1 Cervical disc disease M50.90 Osteoarthritis M19.90
--- NOTE | 2024-12-23 05:54 | PC.NURSE ---
PTS APTT WAS >250 PER PROVIDER HAIDER OLGUIN, PROVIDER WANTS HEPARIN DRIP PUT ON HOLD AND REDRAW PTT AT 0826
[2024-12-23 06:07] LABS: Cholesterol 236 mg/dL (0-200); HDL Cholesterol 57 mg/dL (60-100); NT Pro B Type Natriuretic Pept 257 pg/mL (0-450); Thyroid Stimulating Hormone 8.79 uIU/mL (0.27-4.20); Triglycerides 144 mg/dL (0-150)
[2024-12-23 06:21] LABS: Estmated Average Glucose 117; Hemoglobin A1C 5.7 % (4.0-6.0)
--- NOTE | 2024-12-23 06:32 | USCV_ITS ---
[facility] Age: 79 Gender: F : 1945 Exam Date: 12/23/2024 12:38 Ordering Phys: Evans Aquino MD Technologist: Exam Location: [facility] Indication: nstemi BP: 140 / 80 HR: 81 Rhythm: Sinus Technical Quality: Adequate MEASUREMENTS (Male / Female) Normal Values 2D ECHO LV Diastolic Diameter PLAX 4.2 cm 4.2 - 5.9 / 3.9 - 5.3 cm IVS Diastolic Thickness 1.0 cm 0.6 - 1.0 / 0.6 - 0.9 cm IVS Systolic Thickness 1.5 cm LVPW Diastolic Thickness 1.1 cm 0.6 - 1.0 / 0.6 - 0.9 cm LVPW Systolic Thickness 1.8 cm LVOT Diameter 2.0 cm LV Ejection Fraction 2D Teich 71.8 % LV Ejection Fraction MOD 4C 31.1 % LV Ejection Fraction MOD 2C 40.7 % LV Ejection Fraction 2C AL 43.2 % LA Diameter 3.1 cm RA Systolic Volume 4C AL 25.2 ml RA Systolic Volume 4C MOD 25.3 ml Aorta at Sinotubular Diameter 2.8 cm IVC Diameter 1.3 cm DOPPLER AV Peak Velocity 129.0 cm/s LVOT Peak Velocity 111.0 cm/s AV Area Cont Eq vti 3.5 cm squared AV Area Cont Eq pk 2.8 cm squared MV Peak Velocity 146.0 cm/s MV Area PHT 4.4 cm squared Mitral E to A Ratio 0.9 TV Peak Velocity 157.5 cm/s TR Peak Velocity 169.0 cm/s TR Peak Gradient 11.4 mmHg TV Peak E Velocity 82.0 cm/s PV Peak Velocity 91.0 cm/s FINDINGS Left Ventricle Mid anterospetal and mid inferoseptal akinesis with moderately reduced EF of 40%. Normal left ventricular wall thickness. Indeterminate left ventricular diastolic function due to severe mitral annular calcification. Right Ventricle Normal right ventricular size and systolic function. RVSP could not be calculated due to incomplete tricuspid regurgitation velocity profile. Right Atrium Normal right atrial size. Left Atrium Normal left atrial size. IA Septum Normal appearance of interatrial septum. Mitral Valve Severe mitral annular calcification. Mild mitral valve stenosis with a mean pressure gradient of 3 mmHg with a heart rate of 80 bpm. No mitral valve regurgitation Aortic Valve No aortic valve stenosis. No aortic valve regurgitation. Tricuspid Valve No tricuspid valve regurgitation. Pulmonic Valve No pulmonary valve stenosis. No pulmonary valve regurgitation. Pericardium No pericardial effusion. Aorta Normal size aortic root and proximal ascending aorta. IVC Normal inferior vena cava. CONCLUSIONS 1. Mid anterospetal and mid inferoseptal akinesis with moderately reduced EF of 40%. Indeterminate left ventricular diastolic function due to severe mitral annular calcification. 2. Normal right ventricular size and systolic function 3. Severe mitral annular calcification with mild mitral valve stenosis 4. Right ventricular systolic pressure could not be calculated due to lack of TR jet Fercho Rogers MD, FACC (Electronically Signed) Final Date: 23 December 2024 17:17 S
--- NOTE | 2024-12-23 06:45 | XR_ITS ---
WS: [id number] XR chest 1V portable [id number] REASON FOR EXAM: NG PLACMENT FINDINGS: Nasogastric tube with the tip in a position consistent with the fundus of the stomach. The chest is essentially unchanged compared to 07/06/2024. Mild tortuosity of the aortic arch and thoracic aorta with calcification of the aortic arch. Normal heart size. Calcified granulomatous disease bilaterally. No acute pulmonary parenchymal or pleural abnormality. Moderate degenerative spondylosis and compression deformities in the thoracic spine. XR/XR chest 1V portable [id number] IMPRESSION: Stable chest without acute abnormality with nasogastric tube placement as above .
--- NOTE | 2024-12-23 06:50 | PM.CONSULT ---
Providers/Reason For Consult Consulting Physician/Specialty*: General Surgery Reason for Consult*: SBO Primary Care Provider: Reggie Lyn MD History of Present Illness History of Present Illness Anju Duffy is a 79 year old female with multiple medical comorbidities including more than 10 abdominal surgeries and who has Alzheimer disease. Presented to the hospital with severely elevated blood pressure was found to have possible acute coronary syndrome, in addition to that patient has been vomiting and a CT scan showed evidence of partial SBO. Family member report patient ate a soft pretzel which is outside of here usual diet and after that she started having symptoms of abdominal pain nausea and vomiting Review of Systems General: Reports: 10 or more systems reviewed and unremarkable except in HPI and below Medications/Allergies Home Medications ?Medication ?Instructions ?Recorded ?Confirmed ?Last Taken ?Type morphine 15 mg immediate release 15 mg PO TID PRN pain 90 days #10 12/24/23 11/30/24 Unknown Rx tablet tabs ondansetron HCl 8 mg tablet 8 mg PO TID PRN Nausea And Vomiting 08/06/24 11/30/24 Unknown History carvedilol 25 mg tablet 12.5 mg PO BID 10/29/24 11/30/24 Unknown History Covid Vaccine #1 ea 11/16/24 11/30/24 Unknown Rx buspirone 10 mg tablet See Rx Instructions .Route 11/20/24 11/30/24 Unknown Rx .COMPLEX #360 tabs hydroxyzine HCl 10 mg tablet 10 mg PO .QHS PRN itching #30 tabs 11/30/24 11/30/24 Unknown Rx memantine 5 mg tablet 5 mg PO BID 11/30/24 11/30/24 Unknown History potassium chloride 10 mEq 10 meq PO DAILY #90 tabs 12/19/24 Unknown Rx tablet,extended release (Klor-Con) Allergies Allergy/AdvReac Type Severity Reaction Status Date / Time azithromycin Allergy ALGY-Anaphy Verified 12/23/24 05:41 laxis Latex, Natural Rubber Allergy ALGY-Rash Verified 12/23/24 05:41 olanzapine (From Zyprexa) Allergy hallucinati Verified 12/23/24 05:41 ons/agitate d lorazepam (From Ativan) AdvReac hallucination, Verified 12/23/24 05:41 agitated Current Medications Generic Name Dose Route Start Last Admin Trade Name Freq PRN Reason Stop Dose Admin Heparin Sodium/Sodium Chloride 25,000 unit in 500 mls @ 13.063 mls/hr 12/23/24 03:30 12/23/24 05:29 Heparin Drip IV 0 unit/kg/hr .Q24H ROCIO 0 mls/hr 12 UNIT/KG/HR Infusion PFSH Acute PFSH: Medical History (Updated 12/23/24 @ 06:42 by Pankaj Resendez MD) Left shoulder pain Left upper arm pain after immunization [facility] fall 2023 at [facility] Balance problem Depression, major Pain management contract signed Chronic abdominal pain uses morphine only if severe abd pain to keep her out of ER Hx MRSA infection hx of necrotizing fasciitis and hx of MRSA sepsis Hypokalemia Nicotine dependence, cigarettes, with unspecified nicotine-induced disorders Chronic constipation Hx SBO Atrial fibrillation 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 Roberts Hx of abdominal surgery has had total of 13 abd surgeries---most related to bowel obstructions due to adhesions and had complication of bowel laceration with surgery and had infection Hx of appendectomy History of delivery X 1 History of neck surgery History of cholecystectomy H/O hernia repair inguinal; hx of mesh H/O colectomy due to bowel obstruction from adhesions; S/P dilatation of esophageal stricture S/P ANH-BSO endometriosis; no cancer Family History Mother Congestive heart failure (CHF) Rheumatoid arthritis Social History Smoking and tobacco/nicotine status: never used tobacco/nicotine Alcohol intake: never Substance/Drug Use: never Lives independently: No Household members: spouse Marital status: Number of children: 3 Highest education level completed: Bachelor's Degree Current occupational status: retired 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 Data 12/23/24 00:20 12/23/24 00:20 A&P Assessment and plan 1. Hx SBO: 2. Chronic nausea: 3. Chronic abdominal pain: 4. SBO (small bowel obstruction): Plan: This is a 79-year-old female with history of multiple previous small bowel obstructions who had more than 10 surgeries. Presents again with a partial SBO and also acute coronary syndrome. She has been admitted to the medical service for management I was asked to provide my opinion regarding SBO. Patient is known to me in the past, she tends to have these episodes of partial small bowel obstruction. I will recommend that we start decompression with NG tube allow bowel rest for about 24 to 48 hours and after that we can do a Gastrografin trial. 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 Patient understanding the agreeable with conservative management. I will continue to follow along the medical team. NG tube has been requested to ER nurse. PDMP PDMP Reviewed: Not Reviewed Coding Level of Care Code Acute Code for [facility]g Fwd Diagnoses Hx SBO Z87.19 Chronic nausea R11.0 Chronic abdominal pain R10.9; G89.29 SBO (small bowel obstruction) K56.609
[2024-12-23] MEDS: pantoprazole 40 mg SDV IVP (06:54)
[2024-12-23 07:13] LABS: Free T4 Free Thyroxine 1.13 ng/dL (0.82-1.77)
[2024-12-23 07:19] LABS: Troponin 5 6HR 260.3 ng/L (0-10); Troponin 5 6HR Delta 218.3 ng/L (0-12)
[2024-12-23 07:42] LABS: Glucose Urine UA Negative (Normal); Nitrate Urine Negative (Negative)
[2024-12-23 07:45] LABS: Add Urine Microscopic? YES
[2024-12-23 07:49] LABS: Specific Gravity, Urine 1.071 (1.005-1.030)
[2024-12-23] MEDS: alum-mag-hydroxide-sime 30 mL UDC 15 ML PO ×2 (08:49→15:31)
[2024-12-23] MEDS: HYDROcodone-acetaminophen 5-325 mg Tablet 1 TAB PO ×2 (08:50→21:17)
[2024-12-23 08:54] LABS: Partial Thromboplastin Time 47.7 SECONDS (23.9-36.7)
[2024-12-23] MEDS: hyDRALAzine 20 mg/mL INJ 1 mL 10 MG IVP ×2 (09:16→15:39)
--- NOTE | 2024-12-23 10:47 | P.CONIM_ITS ---
<Statement entered by Fercho Rogers MD - 12/23/24 18:56> Patient was evaluated and cared for in conjunction with an advanced practice practitioner. I personally examined the patient and reviewed the chart and all pertinent data including imaging, telemetry, and laboratory results. I discussed the patient in detail with the advanced practice practitioner. Please see their note for complete consult note, testing results and agreed upon plan of care for the patient. Echo performed today shows segmental wall motion abnormality in the LAD distribution with akinesis in the mid anteroseptal and inferoseptal wall segments. EF 40%. Findings concerning for LAD stenosis. Spoke with and who agree benefits outweigh risk of LHC. Will discuss timing availability for LHC - tomorrow versus Saturday. Of note the patient has mild, not significant, dementia. Providers/Reason For Consult 2 Consulting Physician/Specialty*: Dr Rogers, cardiology Reason for Consult*: NSTEMI Requesting Physician: Evans Aquino MD Attending Physician: Evans Aquino MD Primary Care Provider: Reggie Lyn MD History of Present Illness History of Present Illness Anuj Duffy is a 79 year old female with past medical history of Alzheimer's disease, smoking, many previous abdominal surgeries including cholecystectomy, appendectomy, hernia repair, bowel resection. She presented to the emergency room early this morning with abdominal pain, nausea, chest and epigastric pain. Troponin series: 42?>132?>260. Normal renal function, TSH 8.79 with free T41.13, BNP 257, WBC 11.5, hemoglobin 17.8. EKG revealed sinus rhythm, second EKG obtained 256 shows Q wave in the septal leads. Medications/Allergies Home Medications ?Medication ?Instructions ?Recorded ?Confirmed ?Last Taken ?Type morphine 15 mg immediate release 15 mg PO TID PRN pain 90 days #10 12/24/23 12/23/24 12/22/24 Rx tablet tabs ondansetron HCl 8 mg tablet 8 mg PO TID PRN Nausea And Vomiting 08/06/24 12/23/24 Unknown History carvedilol 25 mg tablet 12.5 mg PO BID 10/29/2412/0912/22/24 History Covid Vaccine #1 ea 11/16/24 12/23/24 Unkn own Rx buspirone 10 mg tablet See Rx Instructions .Route 0 11/20/24 12/23/24 12/22/24 Rx .COMPLEX #360 tabs hydroxyzine HCl 10 mg tablet 10 mg PO .QHS PRN itching #30 tabs 11/30/24 12/23/24 Unknown Rx memantine 5 mg tablet 5 mg PO BID 11/30/2412/23/ 5 12/22/24 History potassium chloride 10 mEq 10 meq PO DAILY #90 tabs 02/0212/23/24 12/22/24 Rx tablet,extended release (Klor-Con) Prevagen 1 cap PO DAILY 12/23/2412/0912/22/24 History aspirin 325 mg tablet (Erickson 325 mg PO DAILY 12/23/24 12/23/24 12/22/24 History Aspirin) ibuprofen 200 mg tablet (Advil) 400 mg PO Q6H PRN Feve r Or Pain 12/23/24 12/23/24 Unknown History padgtgys-bid-yabcc ac 400 1 tab PO DAILY 12/23/2412/0912/22/24 History mcg-calcium carb 500 mg-vit K1 20 mcg tablet Allergies Allergy/AdvReac Type Severity Reaction Status Date / Time azithromycin Allergy ALGY-Anaphy Verified 12/23/24 05:41 laxis Latex, Natural Rubber Allergy ALGY-Rash Verified 12/23/24 05:41 olanzapine (From Zyprexa) Allergy hallucinati Verified 12/23/24 05:41 ons/agitate d lorazepam (From Ativan) AdvReac hallucination, Verified 12/23/24 05:41 agitated Current Medications Generic Name Dose Route Start Last Admin Trade Name Freq PRN Reason Stop Dose Admin Hydrocodone Bitart/Acetaminophen 1 tab 12/23/24 05:23 12/23/24 08:50 Hydrocodone-Acetaminophen 5-325 Mg Tablet PO 1 tab Q4H PRN Administration MODERATE TO SEVERE PAIN Al Hydrox/Mg Hydrox/Simethicone 15 ml 12/23/24 05:23 12/23/24 08:49 Gwin-Ksg-Snjsgbgwx-Lalitha 30 Ml Udc PO 15 ml Q6H PRN Administration INDIGESTION Aspirin 81 mg 12/23/24 09:00 12/23/24 08:55 Aspirin 81 Mg Ec Tablet PO 81 mg DAILY ROCIO Administration Heparin Sodium/Sodium Chloride 25,000 unit in 500 mls @ 13.063 mls/hr 12/23/24 03:30 12/23/24 09:13 Heparin Drip IV 5.97 unit/kg/hr .Q24H ROCIO 6.5 mls/hr 12 UNIT/KG/HR Infusion Ondansetron HCl 4 mg 12/23/24 05:23 12/23/24 08:29 Ondansetron 2 Mg/Ml Sdv 2 Ml IVP 4 mg Q8H PRN Administration vomiting, or N/V if npo Pantoprazole Sodium 40 mg 12/23/24 05:30 12/23/24 06:54 Pantoprazole 40 Mg Sdv IVP 40 mg Q24H ROCIO Administration PFSH Acute 2 PFSH: Medical History Left shoulder pain Left upper arm pain after immunization given fall 2023 at [facility] Balance problem Depression, major Pain management contract signed Chronic abdominal pain uses morphine only if severe abd pain to keep her out of ER Hx MRSA infection hx of necrotizing fasciitis and hx of MRSA sepsis Hypokalemia Nicotine dependence, cigarettes, with unspecified nicotine-induced disorders Chronic constipation Hx SBO Atrial fibrillation 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 Roberts Hx of abdominal surgery has had total of 13 abd surgeries---most related to bowel obstructions due to adhesions and had complication of bowel laceration with surgery and had infection Hx of appendectomy History of delivery X 1 History of neck surgery History of cholecystectomy H/O hernia repair inguinal; hx of mesh H/O colectomy due to bowel obstruction from adhesions; S/P dilatation of esophageal stricture S/P ANH-BSO endometriosis; no cancer Family History Mother Congestive heart failure (CHF) Rheumatoid arthritis Social History Smoking and tobacco/nicotine status: never used tobacco/nicotine Alcohol intake: never Substance/Drug Use: never Lives independently: No Household members: spouse Marital status: Number of children: 3 Highest education level completed: Bachelor's Degree Current occupational status: retired 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; 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[employer] Vitals/I&O/Wt Last Vital Signs Temp 98.3 F 12/23/24 09:00 Pulse 87 12/23/24 09:50 Resp 18 12/23/24 09:50 BP 155/93 12/23/24 09:50 Pulse Ox 95 12/23/24 09:50 O2 Del Method Room Air 12/23/24 09:40 O2 Flow Rate 3 12/23/24 04:00 12/22/24 12/23/24 12/23/24 22:59 06:59 14:59 Intake Total 116.76 / 116.76 0 / 0 Balance 116.76 / 116.76 0 / 0 Weight last 48 hrs Weight 121 lb 4.068 oz Weight 121 lb 4.068 oz Weight 120 lb Physical Exam 2 Const: COMMON NORMALS: no acute distress and patient oriented x3 GENERAL APPEARANCE: cooperative and comfortable ORIENTATION/CONSCIOUSNESS: Yes awake, Yes oriented to person, Yes oriented to place and Yes oriented to time Chest: COMMONS NORMALS: normal inspection of the chest and normal palpation of entire chest wall CHEST: Yes Symmetrical chest wall rise Resp: COMMON NORMALS: normal respiratory effort, No retractions, No use of accessory muscles and clear to auscultation bilaterally EFFORT & INSPECTION: Yes symmetric chest movement AUSCULTATION: clear to auscultation bilaterally Cardio: COMMON NORMALS: regular rate, regular rhythm, S1 normal heart sound present, S2 normal heart sound present, No gallops present (Cardio), No clicks present (Cardio), No murmurs present (Cardio) and No rub (Cardio) RATE: r egular rate RHYTHM: regular rhythm HEART SOUNDS: S1 normal heart sound present and S2 normal heart sound present PERIPHERAL PULSES: radial pulses present Extremity: COMMON NORMALS: no pedal edema Neuro: COMMON NORMALS: patient oriented x3 and moves all extremities S ENSORIUM/ORIENTATION: Yes oriented to person, Yes oriented to place and Yes oriented to time Data 12/23/24 00:20 12/23/24 00:20 A&P Assessment and plan 1. Acute non-ST elevation myocardial infarction (NSTEMI): 2. Hypertension: 3. SBO (small bowel obstruction): 4. Alzheimer dementia: Plan: NSTEMI with complaint of chest and epigastric pain combined with EKG changes concerning for significant coronary stenosis, recommending coronary angiogram. This has been discussed with the patient who is in agreement to proceed however her is DPOA, will contact him to discuss with patient and together to provide recommendations and determine the plan. Currently chest pain-free. Continue heparin infusion. Echocardiogram was being performed at the time of my exam, will be read later, preliminary finding of septal wall motion abnormality. PDMP PDMP Reviewed: Not Reviewed Coding Level of Care Code Acute Code for [facility] Fwd Diagnoses Acute non-ST elevation myocardial infarction (NSTEMI) I21.4 Hypertension I10 SBO (small bowel obstruction) K56.609 Alzheimer dementia G30.9; F02.80
[2024-12-23] MEDS: morphine 4 mg/mL SDV 1 mL 1 MG IVP ×2 (11:08→22:36)
[2024-12-23] MEDS: dextrose 5%-sod chloride 0.9% 1,000 ML 50 ML IV (11:39)
--- NOTE | 2024-12-23 12:43 | PC.NURSE ---
home phone: [phone]
[2024-12-23 15:47] LABS: Partial Thromboplastin Time 42.3 SECONDS (23.9-36.7)
[2024-12-23] MEDS: heparin drip 25,000 UNIT/500 ML PREMIX 8.5 UNIT IV (16:01)
--- NOTE | 2024-12-23 18:24 | PC.NURSE ---
Shift SUmmary: Uneventful shift. Titrated heparin per protocol. Mental status remains unchanged. Oriented to person, place, time and situation. Vrief periods of confusion and very mild agitation. Hypertension: Occaisonally hypertensive into the 180's systolic. Nausea and headache associated with hypertension. Treated effectively with one time orders of hydralazine. Heparin to be turned off at midnight for cath procedure tommorow. Transferred to CSU near end of shift
[2024-12-23 22:47] LABS: Partial Thromboplastin Time 55.3 SECONDS (23.9-36.7)
[2024-12-24] VITALS (7 sets, daily range): BP systolic 119–165; BP diastolic 58–87; PULSE 71–86; RESP 12–23; TEMP 36.5–37.4; O2SAT 94–98
[2024-12-24 03:35] LABS: Hematocrit 47.1 % (36-47); Hemoglobin 15.70 g/dL (11.27-16.99); Mean Corpuscular HGB Conc 33.3 g/dL (30-55); Mean Corpuscular Hemoglobin 30.3 pg (27-33); Mean Corpuscular Volume 90.9 fl (85-98); Nucleated Red Blood Cells % 0 %; Platelet Count 186 10^3/cmm (157-399); Red Blood Count 5.18 10^6/uL (3.85-5.65); White Blood Count 11.64 10^3/uL (3.29-11.43)
[2024-12-24 03:55] LABS: Alanine Aminotransferase 29 U/L (0-33); Albumin Level 3.7 g/dL (3.5-5.2); Alkaline Phosphatase 67 U/L (35-105); Anion Gap 15.8 (5-19); Aspartate Amino Transferase 41 U/L (0-32); Blood Urea Nitrogen 15 mg/dL (8-23); Calcium 8.6 mg/dL (8.5-10.5); Carbon Dioxide 23 mmol/L (22-29); Chloride 104 mmol/L (98-107); Creatinine Clr Calc Pharmacy 48.3995; Globulin 2.4 g/dL (1.3-4.6); Glucose 124 mg/dL (65-115); Osmolality Calculated 290 mOsm/kg (285-295); Potassium 3.8 mmol/L (3.5-5.1); Sodium 139 mmol/L (136-145); Total Protein 6.1 g/dL (6.6-8.7)
[2024-12-24] MEDS: pantoprazole 40 mg SDV IVP (04:50)
[2024-12-24] MEDS: morphine 4 mg/mL SDV 1 mL 1 MG IVP ×3 (06:17→20:45)
[2024-12-24] MEDS: dextrose 5%-sod chloride 0.9% 1,000 ML 50 ML IV (07:51)
--- NOTE | 2024-12-24 08:27 | P.PN_ITS ---
Subjective 2 Subjective: Improving from a surgical standpoint, has not passed gas but abdominal pain has improved. Vitals/I&O/Wt Last Vital Signs Temp 98.4 F 12/24/24 03:55 Pulse 74 12/24/24 03:55 Resp 16 12/24/24 06:17 BP 127/82 12/24/24 03:55 Pulse Ox 95 12/24/24 03:55 O2 Del Method Room Air 12/23/24 17:00 O2 Flow Rate 3 12/23/24 04:00 12/23/24 12/24/24 12/24/24 22:59 06:59 14:59 Intake Total 44.417 / 44.417 69.275 / 642.592 8575 / 1000 Output Total 400 / 400 150 / 550 Balance -355.583 / -355.583 -80.725 / -220.495 9676 / 1000 Weight last 48 hrs Weight 122 lb 5.705 oz Weight 121 lb 4.068 oz Weight 121 lb 4.068 oz Weight 120 lb Physical Exam 2 GI: OTHER: Benign abdominal exam the abdomen is soft minimally tender minimally distended. Data 12/24/24 03:21 12/24/24 03:21 A&P Assessment and plan 1. Hx SBO: Plan: Good progression from surgical standpoint, normal vital signs, improving abdominal pain, NG output appears to be bilious. Plan will be added another 24 hours of decompression after that I will try a Gastrografin trial. She shows understanding agrees with plan. PDMP PDMP Reviewed: Not Reviewed Attestations 2 Medical Necessity Statement*: per medical team Coding Level of Care Code Acute Code for [facility] Fwd Diagnoses Hx SBO Z87.19
--- NOTE | 2024-12-24 12:09 | P.PN_ITS ---
Subjective 2 Subjective: No acute events overnight. Patient denies any chest pain. Sitting up comfortably in bed. Has not passed flatus. Hemodynamically stable. Denies any nausea. NG tube in place Vitals/I&O/Wt Last Vital Signs Temp 98.1 F 12/24/24 08:00 Pulse 74 12/24/24 08:00 Resp 13 12/24/24 08:00 BP 119/65 12/24/24 08:00 Pulse Ox 96 12/24/24 08:00 O2 Del Method Room Air 12/23/24 17:00 O2 Flow Rate 3 12/23/24 04:00 12/23/24 12/24/24 12/24/24 22:59 06:59 14:59 Intake Total 44.417 / 44.417 69.275 / 249.491 9982 / 1000 Output Total 400 / 400 150 / 550 Balance -355.583 / -355.583 -80.725 / -415.933 0771 / 1000 Weight last 48 hrs Weight 55.5 kg Weight 55 kg Weight 55 kg Weight 54.431 kg Physical Exam 2 Narrative: General: Alert and oriented, lying comfortably without any distress HEENT: Normocephalic, atraumatic, grossly unremarkable exam Cardio: normal rate rhythm, normal S1-S2 without any murmurs, rubs, or gallops and JVD normal Respiratory: normal vascular breathing on auscultation without any wheezes, stridor, rhonchi GI: On inspection having multiple scars on abdomen, abdomen soft, tender and distended, mild rigidity also appreciated at the periumbilical region, normoactive bowel sounds present all 4 quadrants, Neuro: intact cranial nerves motor and sensory and cerebellar/coordination function without any focal neurological deficit Behavior: Appropriate and cooperative Extremities: Adequate palpable pulses, no edema or cyanosis observed. Data 12/24/24 03:21 12/24/24 03:21 Micro: Microbiology 12/23/24 07:35 Urine Culture - Preliminary Urine,Clean Catch A&P Assessment and plan 1. SBO (small bowel obstruction): Appreciate surgical recommendations. Conservative treatment. NG tube management as per surgical team. Enema as per surgical team. Continue with D5 NS at 50 cc/h. Protonix daily, Zofran as needed. Out of bed to chair. 2. Acute non-ST elevation myocardial infarction (NSTEMI): Cardiology on board. No active chest pain. Echocardiogram done and pending. Heparin drip withheld as per cardiology team. If remains withheld will plan to start on heparin subcu. Continue with aspirin, statin. Appreciate A1c, lipid panel. Possible plan for Lexiscan stress test in next 24 hours. 3. Chronic diastolic congestive heart failure: Patient has been seen cardiology and following for congestive heart failure/hypertension/atrial fibrillation. Currently euvolemic. 4. Longstanding persistent atrial fibrillation: Patient on carvedilol 12.5 mg twice daily, to resume after reconciliation and confirmation Telemetry Currently in sinus rhythm with sinus pauses Patient was documented in cardiology office note to be on apixaban 5 mg oral twice daily and is not mentioned in the home medications, to confirm further before initiating 5. Hyperlipidemia: Start 40 mg atorvastatin daily and to follow further cardio recs 6. Partial bowel obstruction: Patient had multiple scars of surgery on the abdomen Surgery on board consulted and followed the further plan 7. Alzheimer dementia: Currently at baseline Patient on memantine 5 mg twice daily, to reconcile and resume accordingly 8. Anxiety: Patient on buspirone 10 mg at home, to reconcile before giving 9. GUILLAUME (generalized anxiety disorder): As mentioned above 10. Cervical disc disease: Adequate analgesia to be given accordingly, Avoid overuse of opioids to avoid any bowel obstruction or constipation 11. Osteoarthritis: Stable, adequate analgesia continue 12. Chronic constipation: Plan: Plan for the day: Continue NG tube management and conservative treatment as per surgical team. Out of bed to chair. Possible plan for Gastrografin study in AM. Protonix daily, Zofran as needed. Denies any active chest pain. Continue with aspirin. Appreciate A1c, lipid panel. Echocardiogram results pending. Possible plan for Lexiscan stress test once SBO is cleared up. Continue with D5 NS at 50 cc/h. Electrolytes stable. Goal blood pressure less than 140/90 mmHg. Hold off on antihypertensive for now. IV hydralazine 10 mg every 4 hours as needed for a systolic of more than 160 mmHg. Full code Protonix for PUD prophylaxis NPO. Heparin for DVT prophylaxis PDMP PDMP Reviewed: Not Reviewed Attestations 2 Medical Necessity Statement*: Requires further hospitalization for management of recurrent bowel obstruction undergoing conservative treatment, non-ST elevation ND Diagnoses SBO (small bowel obstruction) K56.609 Acute non-ST elevation myocardial infarction (NSTEMI) I21.4 Chronic diastolic congestive heart failure I50.32 Heart failure chronicity: chronic Heart failure type: diastolic Longstanding persistent atrial fibrillation I48.11 Atrial fibrillation type: longstanding persistent Hyperlipidemia E78.5 Partial bowel obstruction K56.51 Intestinal obstruction type: obstruction due to adhesions Alzheimer dementia G30.9; F02.80 Anxiety F41.9 GUILLAUME (generalized anxiety disorder) F41.1 Cervical disc disease M50.90 Osteoarthritis M19.90 Chronic constipation K59.09
--- NOTE | 2024-12-24 12:11 | P.PN_ITS ---
<Statement entered by Fercho Rogers MD - 12/24/24 17:45> Patient was evaluated and cared for in conjunction with an advanced practice practitioner. I personally saw the patient and reviewed the chart and all pertinent data. I discussed the patient in detail with the advanced practice practitioner. Please see their note for complete assessment and agreed upon plan of care for the patient. Subjective 2 Subjective: Resting comfortably without chest pain. Discussed results of testing with her last night, recommendation of coronary angiogram. Discussed with Dr Simpson, quality inspector, due to SBO and the possibility of her not being able to take the Plavix appropriately at this time, will continue medical management, observing the bowel issue over the weekend. Vitals/I&O/Wt Last Vital Signs Temp 98.1 F 12/24/24 08:00 Pulse 74 12/24/24 08:00 Resp 13 12/24/24 08:00 BP 119/65 12/24/24 08:00 Pulse Ox 96 12/24/24 08:00 O2 Del Method Room Air 12/23/24 17:00 O2 Flow Rate 3 12/23/24 04:00 12/23/24 12/24/24 12/24/24 22:59 06:59 14:59 Intake Total 44.417 / 113.692 69.275 / 273.392 4262 / 1000 Output Total 400 / 550 150 / 550 Balance -355.583 / -436.308 -80.725 / -392.007 2522 / 1000 Weight last 48 hrs Weight 122 lb 5.705 oz Weight 121 lb 4.068 oz Weight 121 lb 4.068 oz Weight 120 lb Physical Exam 2 Const: COMMON NORMALS: no acute distress and patient oriented x3 GENERAL APPEARANCE: cooperative and comfortable ORIENTATION/CONSCIOUSNESS: Yes awake, Yes oriented to person, Yes oriented to place and Yes oriented to time Chest: COMMONS NORMALS: normal inspection of the chest and normal palpation of entire chest wall CHEST: Yes Symmetrical chest wall rise Resp: COMMON NORMALS: normal respiratory effort, No retractions, No use of accessory muscles and clear to auscultation bilaterally EFFORT & INSPECTION: Yes symmetric chest movement AUSCULTATION: clear to auscultation bilaterally Cardio: COMMON NORMALS: regular rate, regular rhythm, S1 normal heart sound present, S2 normal heart sound present, No gallops present (Cardio), No clicks present (Cardio), No murmurs present (Cardio) and No rub (Cardio) RATE: r egular rate RHYTHM: regular rhythm HEART SOUNDS: S1 normal heart sound present and S2 normal heart sound present PERIPHERAL PULSES: radial pulses present Extremity: COMMON NORMALS: no pedal edema Neuro: COMMON NORMALS: patient oriented x3 and moves all extremities S ENSORIUM/ORIENTATION: Yes oriented to person, Yes oriented to place and Yes oriented to time Data 12/24/24 03:21 12/24/24 03:21 Micro: Microbiology 12/23/24 07:35 Urine Culture - Preliminary Urine,Clean Catch A&P Assessment and plan 1. Acute non-ST elevation myocardial infarction (NSTEMI): 2. Nicotine dependence, cigarettes, with unspecified nicotine-induced disorders: 3. Hypertension: 4. Systolic CHF, acute: Plan: Medical management of NSTEMI for now, plan for [facility] on Saturday if her small bowel obstruction is resolved. Continue aspirin and statin. PDMP PDMP Reviewed: Not Reviewed Attestations 2 Medical Necessity Statement*: Ischemic workup Coding Level of Care Code Acute Code for [facility] Diagnoses Acute non-ST elevation myocardial infarction (NSTEMI) I21.4 Nicotine dependence, cigarettes, with unspecified nicotine-induced disorders F17.219 Hypertension I10 Systolic CHF, acute I50.21
[2024-12-24] MEDS: HYDROcodone-acetaminophen 5-325 mg Tablet 1 TAB PO (12:36)
[2024-12-24] MEDS: heparin 5,000 unit/mL INJ 1 mL 5000 UNIT SUBCUT ×2 (14:53→23:04)
[2024-12-24] MEDS: hyDRALAzine 20 mg/mL INJ 1 mL 10 MG IVP (20:49)
[2024-12-24] MEDS: ondansetron 2 mg/ML SDV 2 mL 4 MG IVP (23:04)
[2024-12-24] MEDS: haloperidol inj 5 mg/mL INJ 1 mL IVP (23:35)
[2024-12-25] VITALS (8 sets, daily range): BP systolic 126–165; BP diastolic 62–81; PULSE 61–102; RESP 15–22; TEMP 36.3–37.2; O2SAT 91–97; BMI 22.4
[2024-12-25 03:32] LABS: Hematocrit 45.7 % (36-47); Hemoglobin 15.20 g/dL (11.27-16.99); Mean Corpuscular HGB Conc 33.3 g/dL (30-55); Mean Corpuscular Hemoglobin 30.5 pg (27-33); Mean Corpuscular Volume 91.8 fl (85-98); Nucleated Red Blood Cells % 0 %; Platelet Count 179 10^3/cmm (157-399); Red Blood Count 4.98 10^6/uL (3.85-5.65); White Blood Count 12.09 10^3/uL (3.29-11.43)
[2024-12-25 03:57] LABS: Alanine Aminotransferase 25 U/L (0-33); Albumin Level 3.8 g/dL (3.5-5.2); Alkaline Phosphatase 71 U/L (35-105); Anion Gap 18.8 (5-19); Aspartate Amino Transferase 32 U/L (0-32); Blood Urea Nitrogen 14 mg/dL (8-23); Calcium 8.7 mg/dL (8.5-10.5); Carbon Dioxide 23 mmol/L (22-29); Chloride 102 mmol/L (98-107); Creatinine Clr Calc Pharmacy 48.5855; Globulin 2.4 g/dL (1.3-4.6); Glucose 110 mg/dL (65-115); Osmolality Calculated 291 mOsm/kg (285-295); Potassium 3.8 mmol/L (3.5-5.1); Sodium 140 mmol/L (136-145); Total Protein 6.2 g/dL (6.6-8.7)
[2024-12-25] MEDS: morphine 4 mg/mL SDV 1 mL 1 MG IVP (04:16)
[2024-12-25] MEDS: pantoprazole 40 mg SDV IVP (04:16)
[2024-12-25] MEDS: dextrose 5%-sod chloride 0.9% 1,000 ML 50 ML IV (04:17)
--- NOTE | 2024-12-25 07:59 | XR_ITS ---
WS: [id number] XR chest 1V portable [id number] REASON FOR EXAM: ng tube movement FINDINGS: Nasogastric tube tip is not visualized. It is well beyond the gastroesophageal junction overlying the left upper quadrant. In retrospect, there appears to have been early interstitial edema on the examination of 12/23/2024, which has completely resolved on this examination. XR/XR chest 1V portable [id number] IMPRESSION: Nasogastric tube well beyond the gastroesophageal junction. Probable interval resolution of early interstitial edema.
--- NOTE | 2024-12-25 08:02 | PC.NURSE ---
Bed alarm went off and nurse came into room to find patient trying to get up to use bedside commode. Nurse assisted patient to the bedside commode but at that time the ng tube was still attached to the tape on her nose. Patient was put back in bed and tape was still attached to the nose. Patient was pulling at it and nurse asked her to leave it alone. Dr Ocamop asked the nurse if we did bedside report this morning, to which the answer was yes, we did and at that time the patient was sleeping. NG tape still attached to nose.
--- NOTE | 2024-12-25 08:42 | PC.NURSE ---
suction stopped on patient per Dr Self. Chest xray to be completed at 1300. Per Dr Self, only restart suction if patient starts to throw up. Ambulate patient per doctor's orders.
--- NOTE | 2024-12-25 08:45 | P.PN_ITS ---
Subjective 2 Subjective: Patient feeling better this morning, unsure. She is passing gas but no bowel movements abdominal pain has improved she is now having pain in the throat from the NG tube. NG output has been low. Vitals/I&O/Wt Last Vital Signs Temp 97.3 F L 12/25/24 07:40 Pulse 77 12/25/24 07:40 Resp 22 H 12/25/24 07:40 BP 126/62 12/25/24 07:40 Pulse Ox 94 12/25/24 07:40 O2 Del Method Room Air 12/25/24 07:40 O2 Flow Rate 3 12/23/24 04:00 12/24/24 12/25/24 12/25/24 22:59 06:59 14:59 Intake Total 1000 / 2000 Output Total 200 / 200 300 / 300 Balance 800 / 1800 -300 / -300 Weight last 48 hrs Weight 122 lb 5.705 oz Weight 122 lb 5.705 oz Physical Exam 2 GI: OTHER: Benign abdominal exam the abdomen is softer minimally tender there is bowel sounds Data 12/25/24 03:16 12/25/24 03:16 Micro: Microbiology 12/23/24 07:35 Urine Culture - Final Urine,Clean Catch A&P Assessment and plan 1. SBO (small bowel obstruction): Plan: Patient is showing adequate progression, after an x-ray to verify adequate position of the NG tube since it was disconnected from the nose this morning and we have verified that this is in the correct position and we proceeded to administer 150 cc of Gastrografin mixed with water. We will obtain x-rays at 1 PM 5 PM and tomorrow morning I have encouraged the patient to ambulate and get out of bed I have explained to the nursing staff to please keep the NG tube clamped, only recent unclamp it will be if the patient has vomiting. Will continue to follow PDMP PDMP Reviewed: Not Reviewed Attestations 2 Medical Necessity Statement*: Per medical team Coding Level of Care Code Acute Code for Chg Fwd Diagnoses SBO (small bowel obstruction) K56.609
--- NOTE | 2024-12-25 11:27 | PC.SOCIAL ---
IMM Updated Updated pt on IMM. No questions voiced. Provided pt a copy. Initialed, dated, & timed a copy & placed in chart.
--- NOTE | 2024-12-25 11:39 | PM.MISC ---
Miscellaneous Note Purpose of Documentation: Update on patient care Note: Patient has had a bowel movement after administration of Gastrografin, no significant abdominal pain she did develop a [place] of nausea and pulled out her NG tube but no significant vomiting or any other concerning features she is in good spirits, started walking we will get an x-ray of the abdomen once we verify contrast is in the colon we can proceed to advance diet to a clear liquid diet
--- NOTE | 2024-12-25 11:40 | XRR_ITS ---
PROCEDURE INFORMATION: Exam: XR Abdomen Exam date and time: 12/25/2024 11:52 AM Age: 79 years old Clinical indication: Abdominal pain; Generalized; Additional info: F/u gastrografin, patient has had a bm after gastrografin administration TECHNIQUE: Imaging protocol: Radiologic exam of the abdomen. Views: Frontal supine view of the abdomen. 1 View. COMPARISON: CT abdomen pelvis w con* [id number] 12/23/2024 1:17 AM FINDINGS: Limitations: The inferior-most pelvis is excluded from the field of view. Gastrointestinal tract: Enteric contrast opacifies the small and large bowel to the level of the pelvis. No dilated small bowel loops. Bones/joints: Unremarkable. XR/XR abdomen 1V* [id number] IMPRESSION: Enteric contrast opacifies the small bowel and colon.
[2024-12-25] MEDS: heparin 5,000 unit/mL INJ 1 mL 5000 UNIT SUBCUT (11:51)
--- NOTE | 2024-12-25 12:47 | PM.MISC ---
Miscellaneous Note Purpose of Documentation: update on patient care Note: Xray shows gastrografin in colon. will advance to clears
--- NOTE | 2024-12-25 13:14 | P.PN_ITS ---
Subjective 2 Subjective: No acute events overnight. Patient has not had any nausea or vomiting. Not sure if she has passed flatus but no bowel movements. Getting Gastrografin study as per surgical team. Denies any chest pain. Blood pressure stable. Vitals/I&O/Wt Last Vital Signs Temp 98.9 F 12/25/24 11:55 Pulse 86 12/25/24 11:55 Resp 18 12/25/24 11:55 BP 129/64 12/25/24 11:55 Pulse Ox 91 12/25/24 11:55 O2 Del Method Room Air 12/25/24 11:55 O2 Flow Rate 3 12/23/24 04:00 12/24/24 12/25/24 12/25/24 22:59 06:59 14:59 Intake Total 1000 / 2000 Output Total 200 / 200 300 / 300 Balance 800 / 1800 -300 / -300 Weight last 48 hrs Weight 55.5 kg Weight 55.5 kg Physical Exam 2 Narrative: General: Alert and oriented, lying comfortably without any distress HEENT: Normocephalic, atraumatic, grossly unremarkable exam Cardio: normal rate rhythm, normal S1-S2 without any murmurs, rubs, or gallops and JVD normal Respiratory: normal vascular breathing on auscultation without any wheezes, stridor, rhonchi GI: On inspection having multiple scars on abdomen, abdomen soft, tender and distended, mild rigidity also appreciated at the periumbilical region, normoactive bowel sounds present all 4 quadrants, Neuro: intact cranial nerves motor and sensory and cerebellar/coordination function without any focal neurological deficit Behavior: Appropriate and cooperative Extremities: Adequate palpable pulses, no edema or cyanosis observed. Data 12/25/24 03:16 12/25/24 03:16 Micro: Microbiology 12/23/24 07:35 Urine Culture - Final Urine,Clean Catch A&P Assessment and plan 1. SBO (small bowel obstruction): Appreciate surgical recommendations. Conservative treatment. NG tube management as per surgical team. Enema as per surgical team. Continue with D5 NS at 50 cc/h. Protonix daily, Zofran as needed. Out of bed to chair. 2. Acute non-ST elevation myocardial infarction (NSTEMI): Cardiology on board. No active chest pain. Echocardiogram done and pending. Heparin drip withheld as per cardiology team. If remains withheld will plan to start on heparin subcu. Continue with aspirin, statin. Appreciate A1c, lipid panel. Possible plan for Lexiscan stress test in next 24 hours. 3. Chronic diastolic congestive heart failure: Patient has been seen cardiology and following for congestive heart failure/hypertension/atrial fibrillation. Currently euvolemic. 4. Longstanding persistent atrial fibrillation: Patient on carvedilol 12.5 mg twice daily, to resume after reconciliation and confirmation Telemetry Currently in sinus rhythm with sinus pauses Patient was documented in cardiology office note to be on apixaban 5 mg oral twice daily and is not mentioned in the home medications, to confirm further before initiating 5. Hyperlipidemia: Start 40 mg atorvastatin daily and to follow further cardio recs 6. Partial bowel obstruction: Patient had multiple scars of surgery on the abdomen Surgery on board consulted and followed the further plan 7. Alzheimer dementia: Currently at baseline Patient on memantine 5 mg twice daily, to reconcile and resume accordingly 8. Anxiety: Patient on buspirone 10 mg at home, to reconcile before giving 9. GUILLAUME (generalized anxiety disorder): As mentioned above 10. Cervical disc disease: Adequate analgesia to be given accordingly, Avoid overuse of opioids to avoid any bowel obstruction or constipation 11. Osteoarthritis: Stable, adequate analgesia continue 12. Chronic constipation: Plan: Plan for the day: Getting Gastrografin study today. Most likely NG tube will be removed later in the day. Advancement of diet and NG tube management as per surgical team. Denies any active chest pain. Plan for cardiac catheterization on Saturday if bowel obstruction resolves. Continue with aspirin, statin. D5 NS at 50 cc/h. Appreciate echocardiogram results. Patient is euvolemic. Watch for fluid overload. Echocardiogram showed EF of 40% with regional wall motion abnormality. Can add low-dose metoprolol 12.5 mg twice daily. Full code Protonix for PUD prophylaxis NPO. Heparin for DVT prophylaxis PDMP PDMP Reviewed: Not Reviewed Attestations 2 Medical Necessity Statement*: Requires further hospitalization for management of small bowel obstruction as she receives conservative treatment, [id number] [place] Diagnoses SBO (small bowel obstruction) K56.609 Acute non-ST elevation myocardial infarction (NSTEMI) I21.4 Chronic diastolic congestive heart failure I50.32 Heart failure type: diastolic Heart failure chronicity: chronic Longstanding persistent atrial fibrillation I48.11 Atrial fibrillation type: longstanding persistent Hyperlipidemia E78.5 Partial bowel obstruction K56.51 Intestinal obstruction type: obstruction due to adhesions Alzheimer dementia G30.9; F02.80 Anxiety F41.9 GUILLAUME (generalized anxiety disorder) F41.1 Cervical disc disease M50.90 Osteoarthritis M19.90 Chronic constipation K59.09
--- NOTE | 2024-12-25 16:23 | P.PN_ITS ---
Subjective 2 Subjective: NGT out. 3 BMs today. No CP to report. Denies SOB Vitals/I&O/Wt Last Vital Signs Temp 98.9 F 12/25/24 11:55 Pulse 86 12/25/24 11:55 Resp 18 12/25/24 11:55 BP 129/64 12/25/24 11:55 Pulse Ox 91 12/25/24 11:55 O2 Del Method Room Air 12/25/24 11:55 O2 Flow Rate 3 12/23/24 04:00 12/25/24 12/25/24 12/25/24 06:59 14:59 22:59 Intake Total 1000 / 2000 Output Total 200 / 200 300 / 300 Balance 800 / 1800 -300 / -300 Weight last 48 hrs Weight 122 lb 5.705 oz Weight 122 lb 5.705 oz Physical Exam 2 Narrative: General: In no acute distress. NGT out Neck: No jugular venous distention or carotid bruits Heart: Normal S1 and S2 with a regular rate and rhythm, no cardiac murmurs Lungs: Normal respiratory effort with no use of intercostal muscles, clear lungs sounds to auscultation Extremities: No lower extremity edema Neuro: Alert and oriented x 2 Abdomen with bowel sounds Data 12/25/24 03:16 12/25/24 03:16 Micro: Microbiology 12/23/24 07:35 Urine Culture - Final Urine,Clean Catch A&P Assessment and plan 1. Acute non-ST elevation myocardial infarction (NSTEMI): Akinesis of the mid anterior and inferior wall segments and reduced EF of 40% - new compared to prior echo Treated with IV heparin - now off Denies return of chest pain Continue aspirin and carvedilol If no plans for any invasive procedure from GI or surgical standpoint will start plavix over the weekend once taking PO 2. Cardiomyopathy: Regional WMA, and EF 40% LHC early next week, once tolerating PO and able to keep medication down continue carvedilol will add Entresto if BP allows 3. Hypertension: Controlled 4. SBO (small bowel obstruction): Improving PDMP PDMP Reviewed: Not Reviewed Attestations 2 Medical Necessity Statement*: will need atleast 2 more midnights of hospitalization for acute illness including SBO and NSTEMI Coding Level of Care Code 43822 Diagnoses Acute non-ST elevation myocardial infarction (NSTEMI) I21.4 Cardiomyopathy I42.9 Hypertension I10 SBO (small bowel obstruction) K55.203
[2024-12-25] MEDS: HYDROcodone-acetaminophen 5-325 mg Tablet 1 TAB PO (21:01)
[2024-12-26] VITALS (7 sets, daily range): BP systolic 135–168; BP diastolic 60–91; PULSE 60–77; RESP 16–20; TEMP 36.5–36.8; O2SAT 96–97
[2024-12-26] MEDS: heparin 5,000 unit/mL INJ 1 mL 5000 UNIT SUBCUT ×3 (00:42→23:56)
[2024-12-26] MEDS: pantoprazole 40 mg SDV IVP (04:47)
[2024-12-26 05:09] LABS: Hematocrit 41.9 % (36-47); Hemoglobin 13.90 g/dL (11.27-16.99); Mean Corpuscular HGB Conc 33.2 g/dL (30-55); Mean Corpuscular Hemoglobin 30.3 pg (27-33); Mean Corpuscular Volume 91.3 fl (85-98); Nucleated Red Blood Cells % 0 %; Platelet Count 165 10^3/cmm (157-399); Red Blood Count 4.59 10^6/uL (3.85-5.65); White Blood Count 7.30 10^3/uL (3.29-11.43)
[2024-12-26 05:44] LABS: Alanine Aminotransferase 25 U/L (0-33); Albumin Level 3.6 g/dL (3.5-5.2); Alkaline Phosphatase 68 U/L (35-105); Anion Gap 14.3 (5-19); Aspartate Amino Transferase 27 U/L (0-32); Blood Urea Nitrogen 15 mg/dL (8-23); Calcium 8.8 mg/dL (8.5-10.5); Carbon Dioxide 25 mmol/L (22-29); Chloride 102 mmol/L (98-107); Creatinine Clr Calc Pharmacy 48.5855; Globulin 2.1 g/dL (1.3-4.6); Glucose 92 mg/dL (65-115); Osmolality Calculated 286 mOsm/kg (285-295); Potassium 3.3 mmol/L (3.5-5.1); Sodium 138 mmol/L (136-145); Total Protein 5.7 g/dL (6.6-8.7)
--- NOTE | 2024-12-26 08:16 | P.PN_ITS ---
Subjective 2 Subjective: Doing well this morning, has had several bowel movements yesterday no abdominal pain tolerating liquids. Vitals/I&O/Wt Last Vital Signs Temp 98.1 F 12/26/24 07:51 Pulse 73 12/26/24 07:51 Resp 18 12/26/24 07:51 BP 135/60 12/26/24 07:51 Pulse Ox 97 12/26/24 07:51 O2 Del Method Room Air 12/26/24 07:51 O2 Flow Rate 3 12/23/24 04:00 12/25/24 12/26/24 12/26/24 22:59 06:59 14:59 Intake Total 240 / 240 300 / 540 Balance 240 / -60 300 / 240 Weight last 48 hrs Weight 120 lb 2.431 oz Weight 122 lb 5.705 oz Physical Exam 2 GI: OTHER: Benign abdominal exam Data 12/26/24 04:17 12/26/24 04:17 Micro: Microbiology 12/23/24 07:35 Urine Culture - Final Urine,Clean Catch A&P Assessment and plan 1. Hx SBO: 2. Partial bowel obstruction: Plan: Patient showing excellent progression from the surgical standpoint. As in previous episodes of partial SBO she will be allowed to transition home on a full liquid diet and aggressive bowel regiment with MiraLAX daily. She will advance to a GI soft diet at home. Warning signs have been given. She can follow-up with general surgery 2 weeks after discharge. No additional interventions anticipated from surgical standpoint and all other management per primary care is appreciated PDMP PDMP Reviewed: Not Reviewed Attestations 2 Medical Necessity Statement*: Per medical Coding Level of Care Code Acute Code for Chg Fwd Diagnoses Hx SBO Z87.19 Partial bowel obstruction K56.600
[2024-12-26] MEDS: polyethylene glycol 3350 Pkt 17 gm PO (10:04)
--- NOTE | 2024-12-26 11:50 | P.PN_ITS ---
Subjective 2 Subjective: Feeling well. Upper abdomen mildly tender. Thinks she is taking down liquids fine.Nurse says tolerating advance in diet to full liquids Vitals/I&O/Wt Last Vital Signs Temp 98.1 F 12/26/24 07:51 Pulse 73 12/26/24 07:51 Resp 18 12/26/24 07:51 BP 135/60 12/26/24 07:51 Pulse Ox 97 12/26/24 07:51 O2 Del Method Room Air 12/26/24 07:51 O2 Flow Rate 3 12/23/24 04:00 12/25/24 12/26/24 12/26/24 22:59 06:59 14:59 Intake Total 240 / 240 300 / 540 1360 / 1360 Balance 240 / -60 300 / 240 1360 / 1360 Weight last 48 hrs Weight 120 lb 2.431 oz Weight 122 lb 5.705 oz Physical Exam 2 Narrative: General: In no acute distress. NGT out Neck: No jugular venous distention or carotid bruits Heart: Normal S1 and S2 with a regular rate and rhythm, no cardiac murmurs Lungs: Normal respiratory effort with no use of intercostal muscles, clear lungs sounds to auscultation Extremities: No lower extremity edema Neuro: Alert and oriented x 2 Abdomen with bowel sounds Data 12/26/24 04:17 12/26/24 04:17 Micro: Microbiology 12/23/24 07:35 Urine Culture - Final Urine,Clean Catch A&P Assessment and plan 1. Acute non-ST elevation myocardial infarction (NSTEMI): Akinesis of the mid anterior and inferior wall segments and reduced EF of 40% - new compared to prior echo Treated with IV heparin - now off Denies return of chest pain Continue aspirin 81mg daily and metoprolol 12.5 mg bidl Partial bowel obstruction improving and tolerating liquid diet In anticipation of cardiac cath Saturday, start plavix 75mg daily 2. Cardiomyopathy: Regional WMA, and EF 40% [facility] saturday if continues to tolerate full liguid diet and tolerating medications continue metoprolol will add valsartan 40mg daily - not on formulary so will do losartan 25mg daily for now 3. Hypertension: Controlled 4. SBO (small bowel obstruction): h/o SBO Admitted with partial bowel obstruction - much improved PDMP PDMP Reviewed: Not Reviewed Attestations 2 Medical Necessity Statement*: needs 2 more midnights in hospital due to NSTEMI and partial bowel obstruction Coding Level of Care Code 27336 Diagnoses Acute non-ST elevation myocardial infarction (NSTEMI) I21.4 Cardiomyopathy I42.9 Hypertension I10 SBO (small bowel obstruction) K56.609
[2024-12-26] MEDS: LOSARTAN 25 MG TABLET PO (12:54)
--- NOTE | 2024-12-26 13:30 | P.PN_ITS ---
Subjective 2 Subjective: Patient feeling better without abdominal pain at rest. However has pain to palpation Patient denies chronic abdominal pain due to her history's of surgery and small bowel obstruction She is able to eat and had a bowel movement Vitals/I&O/Wt Last Vital Signs Temp 98.2 F 12/26/24 12:00 Pulse 69 12/26/24 12:00 Resp 20 H 12/26/24 12:00 BP 140/88 12/26/24 12:00 Pulse Ox 97 12/26/24 12:00 O2 Del Method Room Air 12/26/24 12:00 O2 Flow Rate 3 12/23/24 04:00 12/25/24 12/26/24 12/26/24 22:59 06:59 14:59 Intake Total 240 / 240 300 / 540 1600 / 1600 Balance 240 / -60 300 / 240 1600 / 1600 Weight last 48 hrs Weight 54.5 kg Weight 55.5 kg Physical Exam 2 Narrative: Alert and oriented no acute distress Heart regular normal S1-S2 without murmurs clicks gallops or rubs Lungs clear to auscultation without wheezes rales or rhonchi Abdomen soft minimal diffuse tenderness nondistended normal active bowel sounds Extremities no clubbing cyanosis or edema Data 12/26/24 04:17 12/26/24 04:17 Micro: Microbiology 12/23/24 07:35 Urine Culture - Final Urine,Clean Catch A&P Assessment and plan 1. SBO (small bowel obstruction): Appreciate surgical consultation. Conservative treatment and now resolved. 2. Acute non-ST elevation myocardial infarction (NSTEMI): Appreciate cardiology assistance No active chest pain. Echocardiogram shows regional wall motion abnormality and EF of 40%. [facility] on Saturday if she continues to tolerate full liquid diet and medications Patient is on metoprolol cardiology added losartan. And Plavix with anticipation of stent. 3. Chronic diastolic congestive heart failure: Patient has been seen cardiology and following for congestive heart failure/hypertension/atrial fibrillation. Currently euvolemic. 4. Longstanding persistent atrial fibrillation: Continue carvedilol 12.5 mg twice daily Currently in sinus rhythm with sinus pauses Patient was documented in cardiology office note to be on apixaban 5 mg oral twice daily and is not mentioned in the home medications, to confirm further before initiating 5. Hyperlipidemia: Start 40 mg atorvastatin daily and to follow further cardio recs 6. Partial bowel obstruction: Resolved 7. Alzheimer dementia: Currently at baseline Patient on memantine 5 mg twice daily 8. Anxiety: Patient on buspirone 10 mg at home 9. GUILLAUME (generalized anxiety disorder): As mentioned above 10. Cervical disc disease: Adequate analgesia to be given accordingly, Avoid overuse of opioids to avoid any bowel obstruction or constipation 11. Osteoarthritis: Stable, adequate analgesia continue 12. Chronic constipation: Plan: Advance diet as per general surgery recommendations. Continue current medications. Await [facility] on Saturday Full code Protonix for PUD prophylaxis NPO. Heparin for DVT prophylaxis PDMP PDMP Reviewed: Not Reviewed Attestations 2 Medical Necessity Statement*: Requires further hospitalization for management of small bowel obstruction with conservative treatment, and aggressive care for [id number] [place]. Coding Level of Care Code Acute Code for [facility] Fwd Diagnoses SBO (small bowel obstruction) K56.609 Acute non-ST elevation myocardial infarction (NSTEMI) I21.4 Chronic diastolic congestive heart failure I50.32 Heart failure chronicity: chronic Heart failure type: diastolic Longstanding persistent atrial fibrillation I48.11 Atrial fibrillation type: longstanding persistent Hyperlipidemia E78.5 Partial bowel obstruction K56.51 Intestinal obstruction type: obstruction due to adhesions Alzheimer dementia G30.9; F02.80 Anxiety F41.9 GUILLAUME (generalized anxiety disorder) F41.1 Cervical disc disease M50.90 Osteoarthritis M19.90 Chronic constipation K59.09
[2024-12-26] MEDS: dextrose 5%-sod chloride 0.9% 1,000 ML 50 ML IV (23:20)
[2024-12-27] VITALS (7 sets, daily range): BP systolic 121–164; BP diastolic 67–99; PULSE 58–84; RESP 18–22; TEMP 36.6–36.8; O2SAT 96–98
[2024-12-27] MEDS: polyethylene glycol 3350 Pkt 17 gm PO (05:40)
[2024-12-27] MEDS: pantoprazole 40 mg SDV IVP (05:41)
[2024-12-27] MEDS: LOSARTAN 25 MG TABLET PO (05:41)
--- NOTE | 2024-12-27 09:45 | P.PN_ITS ---
Subjective 2 Subjective: Excellent progression overnight he has continued to pass gas and have bowel movements no significant abdominal pain. Vitals/I&O/Wt Last Vital Signs Temp 97.8 F 12/27/24 07:47 Pulse 73 12/27/24 07:47 Resp 22 H 12/27/24 07:47 BP 121/84 12/27/24 07:47 Pulse Ox 98 12/27/24 07:47 O2 Del Method Room Air 12/27/24 07:47 O2 Flow Rate 3 12/23/24 04:00 12/26/24 12/27/24 12/27/24 22:59 06:59 14:59 Intake Total 240 / 1840 960 / 2800 240 / 240 Balance 240 / 1840 960 / 2800 240 / 240 Weight last 48 hrs Weight 120 lb 2 oz Weight 120 lb 2.431 oz Physical Exam 2 GI: OTHER: Benign abdominal exam abdomen soft minimal tender good bowel sounds. Data 12/26/24 04:17 12/26/24 04:17 A&P Assessment and plan 1. Hx SBO: 2. SBO (small bowel obstruction): Plan: Excellent progression, cleared to transition to the outpatient setting from surgical standpoint she can slowly advance to her regular diet at home. Continue on the daily MiraLAX regimen. Follow-up in 2 weeks in the general surgery clinic. All other management per primary team. PDMP PDMP Reviewed: Not Reviewed Attestations 2 Medical Necessity Statement*: Per medical team Coding Level of Care Code Acute Code for Chg Fwd Diagnoses Hx SBO Z87.19 SBO (small bowel obstruction) K56.609
[2024-12-27 09:50] LABS: Anion Gap 16.8 (5-19); Blood Urea Nitrogen 9 mg/dL (8-23); Calcium 8.7 mg/dL (8.5-10.5); Carbon Dioxide 23 mmol/L (22-29); Chloride 106 mmol/L (98-107); Creatinine Clr Calc Pharmacy 48.2091; Glucose 140 mg/dL (65-115); Magnesium 1.9 mg/dL (1.7-2.3); Osmolality Calculated 295 mOsm/kg (285-295); Potassium 3.8 mmol/L (3.5-5.1); Sodium 142 mmol/L (136-145)
--- NOTE | 2024-12-27 12:11 | PM.PN ---
Subjective Subjective: Seen with in the room. Patient reports that she is antsy. Has been shares that she is itching to go outside for smoke. Otherwise patient denies any chest pain shortness of breath nausea or vomiting. She is tolerating her diet she has had bowel movements. Vitals/I&O/Wt Last Vital Signs Temp 98.1 F 12/27/24 11:46 Pulse 70 12/27/24 11:46 Resp 20 H 12/27/24 11:46 BP 140/67 12/27/24 11:46 Pulse Ox 96 12/27/24 11:46 O2 Del Method Room Air 12/27/24 11:46 O2 Flow Rate 3 12/23/24 04:00 12/26/24 12/27/24 12/27/24 22:59 06:59 14:59 Intake Total 240 / 1840 960 / 2800 240 / 240 Balance 240 / 1840 960 / 2800 240 / 240 Weight last 48 hrs Weight 54.488 kg Weight 54.5 kg Physical Exam Narrative: Alert and oriented no acute distress Heart regular normal S1-S2 without murmurs clicks gallops or rubs Lungs clear to auscultation without wheezes rales or rhonchi Abdomen soft less tender today to palpation, nondistended, normal active bowel sounds Extremities no clubbing cyanosis or edema Data 12/26/24 04:17 12/27/24 09:03 A&P Assessment and plan 1. SBO (small bowel obstruction): Appreciate surgical consultation. Conservative treatment and now resolved. Increase diet to GI soft. 2. Acute non-ST elevation myocardial infarction (NSTEMI): Appreciate cardiology assistance No active chest pain. Echocardiogram shows regional wall motion abnormality and EF of 40%. [facility] on planned for tomorrow (Saturday) Patient is on metoprolol, cardiology added losartan and Plavix with anticipation of stent. 3. Chronic diastolic congestive heart failure: Patient follows with cardiology for congestive heart failure/hypertension/atrial fibrillation. Currently euvolemic. 4. Longstanding persistent atrial fibrillation: Continue carvedilol 12.5 mg twice daily Currently in sinus rhythm with sinus pauses Patient was documented in cardiology office note to be on apixaban 5 mg oral twice daily and is not mentioned in the home medications, to confirm further before initiating 5. Hyperlipidemia: Started on 40 mg atorvastatin daily 6. Partial bowel obstruction: Resolved 7. Alzheimer dementia: Currently at baseline Patient on memantine 5 mg twice daily 8. Anxiety: Patient on buspirone 10 mg at home 9. GUILLAUME (generalized anxiety disorder): As mentioned above 10. Cervical disc disease: Adequate analgesia to be given accordingly, Avoid overuse of opioids to avoid any bowel obstruction or constipation 11. Osteoarthritis: Stable, adequate analgesia continue 12. Chronic constipation: MiraLAX daily Plan: Advance diet to GI soft. Await [facility] on Saturday Full code PUD prophylaxis not indicated Heparin for DVT prophylaxis PDMP PDMP Reviewed: Not Reviewed Attestations Medical Necessity Statement*: Requires further hospitalization for management of small bowel obstruction with conservative treatment, and aggressive care for [id number] [place]. Coding Level of Care Code Acute Code for [facility] Fwd Diagnoses SBO (small bowel obstruction) K56.609 Acute non-ST elevation myocardial infarction (NSTEMI) I21.4 Chronic diastolic congestive heart failure I50.32 Heart failure chronicity: chronic Heart failure type: diastolic Longstanding persistent atrial fibrillation I48.11 Atrial fibrillation type: longstanding persistent Hyperlipidemia E78.5 Partial bowel obstruction K56.51 Intestinal obstruction type: obstruction due to adhesions Alzheimer dementia G30.9; F02.80 Anxiety F41.9 GUILLAUME (generalized anxiety disorder) F41.1 Cervical disc disease M50.90 Osteoarthritis M19.90 Chronic constipation K59.09
--- NOTE | 2024-12-27 12:33 | P.PN_ITS ---
Subjective 2 Subjective: walking in mayo feeling well Tolerating full liquid diet and creme of wheat Vitals/I&O/Wt Last Vital Signs Temp 98.1 F 12/27/24 11:46 Pulse 70 12/27/24 11:46 Resp 20 H 12/27/24 11:46 BP 140/67 12/27/24 11:46 Pulse Ox 96 12/27/24 11:46 O2 Del Method Room Air 12/27/24 11:46 O2 Flow Rate 3 12/23/24 04:00 12/26/24 12/27/24 12/27/24 22:59 06:59 14:59 Intake Total 240 / 1840 960 / 2800 240 / 240 Balance 240 / 1840 960 / 2800 240 / 240 Weight last 48 hrs Weight 120 lb 2 oz Weight 120 lb 2.431 oz Physical Exam 2 Narrative: General: In no acute distress. NGT out Neck: No jugular venous distention or carotid bruits Heart: Normal S1 and S2 with a regular rate and rhythm, no cardiac murmurs Lungs: Normal respiratory effort with no use of intercostal muscles, clear lungs sounds to auscultation Extremities: No lower extremity edema Neuro: Alert and oriented x 2 Abdomen with bowel sounds Data 12/26/24 04:17 12/27/24 09:03 A&P Assessment and plan 1. Acute non-ST elevation myocardial infarction (NSTEMI): Akinesis of the mid anterior and inferior wall segments and reduced EF of 40% - new compared to prior echo Treated with IV heparin - now off Denies return of chest pain Continue aspirin 81mg daily and metoprolol 12.5 mg bid tolerating full liquid diet Continue plavix 75 mg daily LHC in am 2. Cardiomyopathy: Regional WMA, and EF 40% LHC in am change metoprolol tartrate to metoprolol XL 25mg daily Change losartan to entresto 24/26mg bid 3. Hypertension: Uncontrolled Change losartan to Entresto 24/26mg bid 4. SBO (small bowel obstruction): h/o SBO Admitted with partial bowel obstruction - much improved and advancing diet without difficulty PDMP PDMP Reviewed: Not Reviewed Attestations 2 Medical Necessity Statement*: needs another midnight in the hospital for NSTEMI Coding Level of Care Code Acute Code for [facility] Fwd Diagnoses Acute non-ST elevation myocardial infarction (NSTEMI) I21.4 Cardiomyopathy I42.9 Hypertension I10 SBO (small bowel obstruction) K56.605
[2024-12-27] MEDS: heparin 5,000 unit/mL INJ 1 mL 5000 UNIT SUBCUT (13:03)
[2024-12-28] VITALS (27 sets, daily range): BP systolic 92–183; BP diastolic 53–117; PULSE 67–96; RESP 13–32; TEMP 36.4–36.7; O2SAT 96–98
[2024-12-28] MEDS: heparin 5,000 unit/mL INJ 1 mL 5000 UNIT SUBCUT (01:43)
[2024-12-28] MEDS: polyethylene glycol 3350 Pkt 17 gm PO (05:35)
[2024-12-28] MEDS: metoprolol succinate ER (24 HR) 25 mg Tablet PO (05:35)
[2024-12-28] MEDS: pantoprazole 40 mg SDV IVP (05:35)
--- NOTE | 2024-12-28 08:37 | XACV_ITS ---
Exam Room: [facility] Ht: 157 cm Wt: 71 kg BSA: 1.78 m2 Gender: Female : 1945 Any Known Allergies: Other Exam Priority: Routine Indication(s): - Non-ST elevation ND Procedure(s): Procedure Description: Diagnostic procedure Procedure Description: Left Heart Catheterization Procedure Description: Left ventriculography Procedure Description: Coronary Angiography Tatiana EDMONDSON; Diagnostic Cath Status: Urgent Diagnostic Findings * Left Main has no disease. * Circumflex has no disease. * Mid Left Anterior Descending to Distal Left Anterior Descending: luminal irregularities 20% stenosis, KEYONA: 3 flow. * Proximal Right Coronary Artery to Mid Right Coronary Artery: luminal irregularities 20% stenosis, KEYONA: 3 flow. * Coronary angiography shows right dominance. PCI Indication: NSTE - ACS Conclusions 1. There is luminal irregularities coronary artery disease with two vessel disease. 2. All hi are normal. 3. Normal left ventricular systolic function. Ejection fraction of 60%. Recommendations * Continue optimal medical management. Diagnostic RX Recommendation: medical therapy and/or counseling Ventriculography Ejection Fraction: 60.0 % Pressures Phase:Rest AO : 51 / 46 ( 47 ) @ 11:26:00 AM 2 / 0 ( 0 ) @ 11:27:00 AM 104 / 70 ( 86 ) @ 11:27:00 AM 131 / 97 ( 116 ) @ 11:30:00 AM 193 / 90 ( 132 ) @ 11:36:00 AM 193 / 89 ( 132 ) @ 11:36:00 AM LV : 170 / 0 / 4 @ 11:34:00 AM 175 / -10 / 11 @ 11:34:00 AM 192 / -4 / 3 @ 11:36:00 AM 183 / -8 / 4 @ 11:36:00 AM Valves Phase:DefaultPhase AV : 0.0 @ 10:44:29 AM AV Mean Gradient: 0.0 @ 10:44:29 AM 0.0 @ 10:44:29 AM Clinical Evaluation EBL: 5mL-10mL Procedural Details Procedure Consent Obtained. Admit Source: In Patient. Current Diagnosis : Chest Pain. Pre-Procedure Time Out. Identified patient by full name and date of as verbalized by the patient/guarantor. Does the consent match the physician's order: Yes. Accurate & Complete Informed Consent: Yes. Inpatient/Outpatient History & Physical on Chart: Yes. If H&P is completed, is and addenduem needed: No; If yes, is the addendum complete: N/A. Visualize and Verify Site with Patient/Guarantor: N/A. Relevant Radiology Images available: N/A. The risks, benefits, and alternatives of sedation and/or procedure were discussed by physician. The patient agrees to continue. Procedure started. [facility] Clinical Fraility Score: 3: Managing Well. 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 Chest Pain Symptom Assessment: Typical Angina Symptoms. Cardiovascular Instability: No. Correct patient, site and procedure confirmed by cath team. Current diagnosis: Worsening angina; NONSTEMI. PERRLA. Strong, equal hand microbiology soil scientist bilaterally. Lungs clear x 5 lobes. IV Fluids: 0.9% NaCl at KVO. 0 mL infused prior to labor law professor. Pre Procedural Pulses: bilateral posterior tibial was Doppled. Pre Procedural Pulses: bilateral dorsalis pedis was Doppled. Pre Procedural Pulses: bilateral radial was 3+. Oxygen started at 3liters/min via nasal canula. right groin was prepped with chloroprep then draped in the usual sterile fashion. right radial was prepped with chloroprep then draped in the usual sterile fashion. Physician notified. IV Site on Arrival: 20 gauge in the left anticubital. Baseline sample Acquired. HR: 72 BPM. Physician arrived. Physician scrubbed in. Immediate Pre-Procedure Time Out. Correct Patient: Yes; Correct Procedure: Yes; Correct Site: Yes; Correct Patient Position: Yes; Correct Supplies: Yes; Dried Flammable Prep: Yes; Blood Products Available: N/A;. Lidocaine 1% infiltrated to the right radial. Arterial access obtained. A 5 italian TIG catheter in over wire. Multiple views taken of left coronary artery. Catheter redirected to the RCA. Multiple views taken of right coronary artery. Catheter removed over the exchange wire. A 5 italian Angled Pig catheter in over wire. EDP Sample taken: LV 170/-1,4; HR: 79 BPM; SpO2: 96%. EDP Sample taken: LV 175/-11,11; HR: 85 BPM; SpO2: 97%. LV gram performed in LEONARD @ 10 mL/second for a total of 30 mL. Patient EF: Normal. EDP Sample taken: LV 192/-5,3; HR: 91 BPM; SpO2: 98%. Pullback taken: LV 183/-8,4; AO 193/90(132); Mean: 0mmHg, Peak to Peak: 0mmHg, SEP: 8sec/min; HR: 89 BPM; SpO2: 98%. Catheter removed over the wire. Physician review of films. Physician scrubbed out. Post-op diagnosis: Non obstructive CAD. Complications: None. A TR Band was successful obtaining hemostatsis at the Right Radial artery insertion site. TR band placed. Hemostasis obtained. Post Procedure: Pulses reassessed and unchanged. PERRLA. Strong, equal hand microbiology soil scientist bilaterally. No VTE prophylaxis required. Medication's Wasted: Lidocaine 1% = 18 ml , Versed = 1 mg , Nitro = 49.8 mg , Heparin = 1000 units , Fentanyl = 50 mcg. Total IV fluids: 20 mL. Fluoro: 2:06. Contrast type used: Omnipaque 300 mg/mL, 150 mL bottle. [id number]. Estimated blood loss: 5mL-10mL. Responsiveness - Normal response to verbal stimuli; alert and oriented, PERRLA. Airway - Unaffected, no intervention required; spontaneous ventilation. Circulation: W/N/L, pulses unchanged. Nausea/Vomiting: No. Procedure completed. Patient transferred by bed to 1st floor. Vital chart was stopped. Access Site Site: Right Radial artery Sheath Size: 6 Fr Hemostasis Method: TR Band Hemostasis Success: Successful Procedure Medications Start: 10:15 AM Stop: 10:15 AM Medication: Versed 1 mg and Fentanyl 25 mcg Amount: 1 Route: I.V. Start: 10:24 AM Stop: 10:24 AM Medication: Fentanyl Amount: 25 mcg Route: I.V. Start: 10:25 AM Stop: 10:25 AM Medication: Nitrogylcerin Amount: 200 mcg Route: I.A. Start: 10: AM Stop: : AM Medication: Heparin Amount: 5000 units Route: I.V. I, the attending physician, have reviewed and verified all procedure medications. Yes, all medications given per verbal order History/Risk Factors Hypertension: Yes Dyslipidemia: Yes Peripheral Arterial Disease (PAD): No Myocardial Infarction (ND): No Obesity: No Renal Disease: No Tobacco Use: Current/Recent(w/in 1 year) Prior Interventions PCI: No CABG: No Valve Surgery: No Report Signatures Finalized by Armando Simpson MD on 12/28/2024 10:52 AM
--- NOTE | 2024-12-28 10:12 | W.PM.OPSUD ---
Surgery/Procedure H&P Update DATE OF PROCEDURE: December 28, 2024 DATE H&P PERFORMED: 12/23/24 H&P UPDATE INFORMATION: I have reviewed H&P completed within last 30 days, I have examined patient prior to procedure and No changes to prior documentation PREOP DIAGNOSIS: [id number] AR, abnormal wall motion on the echo PLANNED PROCEDURE: Operation Date: 12/28/24 07:45 Proposed Procedures p Cardiac Catheterization(Not Applicable) - Armando Simpson MD PATIENT REASSESSED PRIOR TO SEDATION, WITH NO CHANGE NOTED: Yes PHYSICAL EXAM: alert, oriented x 3, clear to auscultation bilaterally, regular rate & rhythm and operative site marked AIRWAY EVAL/ANESTHESIA PLAN: ASA II, Risks, benefits & alternatives of sedation and/or procedure discussed and Patient agrees to continue as planned ADDITIONAL INFORMATION: Patient has been explained all risk-benefit and alternative for the procedure. She understand 2% risk of stroke major bleed. Patient understand 5% risk of minor bleeding oozing infection hematoma contrast-induced nephropathy urgent or emergent vascular or bypass surgery. Patient agrees to it and would like to proceed with it.
--- NOTE | 2024-12-28 10:41 | PC.SOCIAL ---
IMM Update pg 2 of IMM Updated and reviewed w/ patient. Copy provided and copy dated, initialed and placed in chart.
[2024-12-28] MEDS: hyDRALAzine 20 mg/mL INJ 1 mL 10 MG IVP (12:24)
--- NOTE | 2024-12-28 13:33 | P.PN_ITS ---
Subjective 2 Subjective: Feeling well. Denies CP Vitals/I&O/Wt Last Vital Signs Temp 98.1 F 12/28/24 11:44 Pulse 79 12/28/24 11:44 Resp 23 H 12/28/24 11:44 BP 157/83 12/28/24 11:44 Pulse Ox 97 12/28/24 11:44 O2 Del Method Room Air 12/28/24 07:31 O2 Flow Rate 3 12/23/24 04:00 12/27/24 12/28/24 12/28/24 22:59 06:59 14:59 Intake Total 1085 / 1565 Balance 1085 / 1565 Weight last 48 hrs Weight 156 lb 8.451 oz Weight 156 lb 8.451 oz Weight 120 lb 2 oz Physical Exam 2 Narrative: General: In no acute distress. NGT out Neck: No jugular venous distention or carotid bruits Heart: Normal S1 and S2 with a regular rate and rhythm, no cardiac murmurs Lungs: Normal respiratory effort with no use of intercostal muscles, clear lungs sounds to auscultation Extremities: No lower extremity edema Neuro: Alert and oriented x 2 Abdomen with bowel sounds Data 12/26/24 04:17 12/27/24 09:03 A&P Assessment and plan 1. Acute non-ST elevation myocardial infarction (NSTEMI): Akinesis of the mid anterior and inferior wall segments and reduced EF of 40% on echo this admission- new compared to prior echo Treated with IV heparin - now off Denies return of chest pain [facility] 12/28/24 with only luminal irregularities Likely had Stress induced cardiomyopahty in setting of partial small bowel obstruction Continue aspirin 81mg daily Change metoprolol back to home carvedilol 6.25mg bid tolerating full liquid diet Can stop plavix 2. Cardiomyopathy: Regional WMA, and EF 40% new this admission - now resolved Likely had Stress induced cardiomyopahty in setting of partial small bowel obstruction change metoprolol to carvedilol 6.25mg bid Continue entresto 24/26mg bid 3. Hypertension: uncontrolled chnage metoprolol to carvedilol 6.25mg bid Would use carvedilol and Entresto for BP control Can discharge off the imdur 4. SBO (small bowel obstruction): h/o SBO Admitted with partial bowel obstruction - much improved and advancing diet without difficulty Plan: can discharge home from cardiac standpoint FU in office in 2 - 3 weeks PDMP PDMP Reviewed: Not Reviewed Attestations 2 Medical Necessity Statement*: discharging Coding Level of Care Code 93684 Diagnoses Acute non-ST elevation myocardial infarction (NSTEMI) I21.4 Cardiomyopathy I42.9 Hypertension I10 SBO (small bowel obstruction) K56.609
--- NOTE | 2024-12-28 16:53 | P.DS_ITS ---
Discharge Providers Date of Admission: 12/23/24 07:27 Date of Discharge: December 28, 2024 Attending Provider at Admission: Pankaj Resendez MD Attending Provider at Discharge: Chandler Mcnamara MD Primary Care Provider: Reggie Lyn MD Diagnoses at Discharge Discharge Diagnosis 1. Acute non-ST elevation myocardial infarction (NSTEMI): 2. Cardiomyopathy: 3. Primary hypertension: 4. SBO (small bowel obstruction): Reason for Visit Reason for Visit: High BP, N/V Brief History: As per the previous notes, the patient is poor historian considering she has Alzheimer's dementia but was able to provide some information, and further history taken from collateral/family member: Anju Duffy is a 79 year old female presenting with a chief complaint of acute abdominal pain, nausea, vomiting, pain with radiation to the retrosternal chest since evening. Pain started after eating a large pretzel. Patient has a significant history for 13 abdominal surgeries including cholecystectomy, appendectomy, hernia repair, multiple bowel resections, diverticulitis. Due to this, she has frequent bowel obstructions and has been managed often by the surgery team. She has had a normal bowel movement today prior to onset of pain and also passing gas. There was no reported fever or chills or any diarrhea. The patient reported having chest pain central in nature but no diaphoresis with it. There is no orthopnea or PND, and no shortness of breath associated with the chest pain or abdominal pain. She is an active smoker and currently smokes half pack a day more than 30-40 years. Her blood pressure was elevated in the ER however she was asymptomatic in terms of any visual changes or any headache or any change from the baseline apart from abdominal pain and chest pain. Delta Trops showed significant rise and was started on heparin infusion and further admission as NSTEMI, EKG reviewed and did not show ST segment elevation. Nonspecific T wave inversion in anterior chest leads appreciated Hospital Course Hospital Course Patient with history of recurrent small bowel obstructions and constipation. She was seen by Dr. Degroot and reported eating soft pretzel which led to nausea vomiting. Patient had history of 10 abdominal surgeries and Alzheimer's disease admitted with partial small bowel obstruction as well as elevated blood pressure and possible acute coronary syndrome. She was followed with Gastrografin and cleared her small bowel obstruction advanced on her diet. Patient was seen by Dr. Rogers cardiology and had echo showing wall motion abnormality and low EF of 40% plus troponins were elevated. Patient went to Pediatric Nephrologist and found to have no significant disease just mild luminal irregularities despite smoking for 57 years at half pack a day average. Patient is discharged on medication adjusted to include Entresto and decreased her carvedilol. Imdur was discontinued Troponin baseline 42 tracey to 132 then 260 Physical Exam Narrative: General well-developed well-nourished thin female in no acute cardiopulmonary stress CV regular rate and rhythm Lungs clear to auscultation bilaterally Abdomen positive bowel tones soft nontender Calves no tenderness cords pretrip edema Right wrist no bleeding deflated compression devices in place. Discharge Data Studies Completed and Pending Completed Studies During Hospitalization Category Date Time Status CT abdomen pelvis w con* [id number] Stat Cat Scan 12/23/24 00:42 Completed LITHOGRAPHY CONTACT WORKER request for service Routine Exams 12/28/24 08:37 Completed XR abdomen 1V* [id number] Stat Exams 12/25/24 11:40 Completed XR chest 1V portable [id number] Stat Exams 12/23/24 06:45 Completed XR chest 1V portable [id number] Stat Exams 12/25/24 07:59 Completed CV. echo complete* [id number] Stat Ultrasound 12/23/24 06:32 Completed Radiology Impressions Abdomen/Pelvis CT 12/23/24 00:42 IMPRESSION: 1. Similar findings concerning for partial small bowel obstruction and/or ileus. No discrete mechanical transition point, suspicion for ileocolic anastomosis origin. Findings could be secondary to slow transit and/or constipation given moderate colonic stool burden and fecalization of the distal ileum. 2. Stable pneumobilia. Correlate with prior procedural history. 3. Intra and extrahepatic bile duct dilatation favored to represent reservoir effect in the post cholecystectomy state. Consider correlation with LFTs/bilirubin. Nonemergent follow-up MRCP can be obtained if clinically indicated. 4. Otherwise, no acute process in the abdomen or pelvis to explain the patient's symptoms. COMMENTS: Consistent with the [employer]'s Incidental Findings Committee white paper (J Am Patricia Radiol 2018): Any incidental renal lesion less than 1 cm or classified as too small to characterize, or any incidental cystic renal lesion characterized as simple-appearing, is likely benign. No follow-up imaging is recommended for these lesions per consensus recommendations based on imaging criteria. Chest X-Ray 12/25/24 07:59 IMPRESSION: Nasogastric tube well beyond the gastroesophageal junction. Probable interval resolution of early interstitial edema. Abdomen X-Ray 12/25/24 11:40 IMPRESSION: Enteric contrast opacifies the small bowel and colon. Laboratory Results WBC 7.30 10^3/uL (3.29-11.43) 12/26/24 04:17 RBC 4.59 10^6/uL (3.85-5.65) 12/26/24 04:17 Hgb 13.90 g/dL (11.27-16.99) 12/26/24 04:17 Hct 41.9 % (36-47) 12/26/24 04:17 MCV 91.3 fl (85-98) 12/26/24 04:17 MCH 30.3 pg (27-33) 12/26/24 04:17 MCHC 33.2 g/dL (30-55) 12/26/24 04:17 RDW 12.7 % (12.1-15.1) 12/26/24 04:17 Plt Count 165 10^3/cmm (157-399) 12/26/24 04:17 MPV 11.3 fL (7.4-10.4) H 12/26/24 04:17 Neut % (Auto) 55.9 % 12/26/24 04:17 Lymph % (Auto) 30.7 % 12/26/24 04:17 Edmunds % (Auto) 10.5 % 12/26/24 04:17 Eos % (Auto) 1.9 % 12/26/24 04:17 Baso % (Auto) 0.7 % 12/26/24 04:17 Neut # (Auto) 4.08 10^3/uL (1.8-7.7) 12/26/24 04:17 Lymph # (Auto) 2.2 10^3/uL (0.8-4.8) 12/26/24 04:17 Edmunds # (Auto) 0.8 10^3/uL (0.2-0.9) 12/26/24 04:17 Eos # (Auto) 0.1 10^3/uL (0.0-0.8) 12/26/24 04:17 Baso # (Auto) 0.1 10^3/uL (0.0-0.1) 12/26/24 04:17 Nucleated RBC % (auto) 0 % 12/26/24 04:17 Nucleated RBCs # 0.0 /100WBC 12/26/24 04:17 APTT 55.3 SECONDS (23.9-36.7) H 12/23/24 22:25 Sodium 142 mmol/L (136-145) 12/27/24 09:03 Potassium 3.8 mmol/L (3.5-5.1) 12/27/24 09:03 Chloride 106 mmol/L (98-107) 12/27/24 09:03 Carbon Dioxide 23 mmol/L (22-29) 12/27/24 09:03 Anion Gap 16.8 (5-19) 12/27/24 09:03 BUN 9 mg/dL (8-23) 12/27/24 09:03 Creatinine 0.5 mg/dL (0.5-0.9) 12/27/24 09:03 GFR Calculation Not Reportable 12/27/24 09:03 Glucose 140 mg/dL (65-115) H 12/27/24 09:03 POC Glucose 156 mg/dL (70-110) H 12/23/24 08:34 Estimat Average Glucose 117 12/23/24 00:20 Hemoglobin A1c 5.7 % (4.0-6.0) 12/23/24 00:20 Calculated Osmolality 295 mOsm/kg (285-295) 12/27/24 09:03 Calcium 8.7 mg/dL (8.5-10.5) 12/27/24 09:03 Phosphorus 2.5 mg/dL (2.5-4.5) 12/27/24 09:03 Magnesium 1.9 mg/dL (1.7-2.3) 12/27/24 09:03 Total Bilirubin 1.8 mg/dL (0.15-1.2) H 12/26/24 04:17 AST 27 U/L (0-32) 12/26/24 04:17 ALT 25 U/L (0-33) 12/26/24 04:17 Alkaline Phosphatase 68 U/L (35-105) 12/26/24 04:17 Troponin T Baseline Cancelled 12/23/24 02:23 Troponin T 120 Minute 132.2 ng/L (0-10) H 12/23/24 02:49 Delta Troponin T 90.2 ABS# (0-10) H* 12/23/24 02:49 Troponin T Hi Sens 6Hr 260.3 ng/L (0-10) H 12/23/24 06:51 Troponin T Hi Sens 6Hr Delta 218.3 ng/L (0-12) H* 12/23/24 06:51 NT-Pro-B Natriuret Pep 257 pg/mL (0-450) 12/23/24 00:20 NT-Pro-B Natriuret Pep 258 pg/mL (0-450) 12/23/24 00:20 Total Protein 5.7 g/dL (6.6-8.7) L 12/26/24 04:17 Albumin 3.6 g/dL (3.5-5.2) 12/26/24 04:17 Globulin 2.1 g/dL (1.3-4.6) 12/26/24 04:17 Triglycerides 144 mg/dL (0-150) 12/23/24 00:20 Cholesterol 236 mg/dL (0-200) H 12/23/24 00:20 LDL Cholesterol, Calc 150 mg/dL (50-129) H 12/23/24 00:20 HDL Cholesterol 57 mg/dL (60-100) L 12/23/24 00:20 LDL/HDL Ratio 2.63 RATIO (0.00-3.22) 12/23/24 00:20 Cholesterol/HDL Ratio 4.14 mg/dL (0.0-4.40) 12/23/24 00:20 Lipase 32 U/L (13-60) 12/23/24 00:20 TSH 8.79 uIU/mL (0.27-4.20) H 12/23/24 00:20 Free T4 1.13 ng/dL (0.82-1.77) 12/23/24 02:49 Free T3 3.2 PG/ML (2.0-4.4) 12/23/24 02:49 Urine Color Yellow (Yellow) 12/23/24 07:35 Urine Appearance Clear (CLEAR) 12/23/24 07:35 Urine pH 6.0 (5-7) 12/23/24 07:35 Ur Specific Nolan 1.071 (1.005-1.030) H 12/23/24 07:35 Urine Protein 1+ (Negative) A 12/23/24 07:35 Urine Glucose (UA) Negative (Normal) 12/23/24 07:35 Urine Ketones Negative (Negative) 12/23/24 07:35 Urine Blood 2+ (Negative) A 12/23/24 07:35 Urine Nitrate Negative (Negative) 12/23/24 07:35 Urine Bilirubin Negative (Negative) 12/23/24 07:35 Urine Urobilinogen 1.0 mg/dL (Negative) 12/23/24 07:35 Ur Leukocyte Esterase Negative (Negative) 12/23/24 07:35 Urine RBC 21-50 /hpf (0-2) H 12/23/24 07:35 Urine WBC 0-5 /hpf (0-5) 12/23/24 07:35 Ur Squamous Epith Cells 0-5 /hpf (0-5) 12/23/24 07:35 Amorphous Sediment Not Reportable 12/23/24 07:35 Urine Bacteria None seen /hpf (NONE) 12/23/24 07:35 Hyaline Casts 1.65 /lpf 12/23/24 07:35 Procedures Performed Selective left heart cath coronary angiogram on 12/28/2024 Vitals Last Vital Signs Temp 98.1 F 12/28/24 11:44 Pulse 96 12/28/24 16:03 Resp 19 H 12/28/24 16:03 BP 92/53 12/28/24 16:03 Pulse Ox 97 12/28/24 11:44 O2 Del Method Room Air 12/28/24 07:31 O2 Flow Rate 3 12/23/24 04:00 Discharge Plan Discharge Patient Disposition: Home Condition: Stable Prescriptions: New atorvastatin 40 mg Tablet 40 mg PO BEDTIME Qty: 30 0RF polyethylene glycol 3350 17 gram Powder In Packet 17 g PO DAILY Qty: 30 0RF Rx Instructions: Hold for loose stool sacubitril-valsartan [Entresto] 24-26 mg Tablet 1 tab PO BID Qty: 60 0RF nicotine 14 mg/24 hr Patch 24 Hour 1 patch transdermal DAILY PRN (Reason: nicotine withdrawal) Qty: 15 0RF nitroglycerin 0.4 mg Tablet, Sublingual 0.4 mg sublingual Q5M PRN (Reason: Chest Pain) Qty: 20 0RF carvedilol 6.25 mg tablet 6.25 mg PO BID Qty: 60 0RF Rx Instructions: must administer with a meal/food Continued memantine 5 mg tablet 5 mg PO BID hydroxyzine HCl 10 mg tablet 10 mg PO .QHS PRN (Reason: itching) Qty: 30 11RF morphine 15 mg tablet 15 mg PO TID PRN (Reason: pain) 90 Days Qty: 10 0RF (DME) Covid Vaccine See Rx Instructions .ROUTE .MEDSUPPLY Qty: 1 0RF Rx Instructions: As directed buspirone 10 mg tablet See Rx Instructions .ROUTE .COMPLEX Qty: 360 3RF Dose Instruction: TAKE 1 TABLET BY MOUTH TWICE DAILY FOR ANXIETY Rx Instructions: TAKE 2 TABLET BY MOUTH TWICE DAILY FOR ANXIETY PRN potassium chloride [Klor-Con 10] 10 mEq tablet extended release 10 meq PO DAILY Qty: 90 3RF ondansetron HCl 8 mg tablet 8 mg PO TID PRN (Reason: Nausea And Vomiting) aspirin [Erickson Aspirin] 325 mg Tablet 325 mg PO DAILY ibuprofen [Advil] 200 mg Tablet 400 mg PO Q6H PRN (Reason: Fever Or Pain) One-A-Day Women's 50 Plus 400 mcg-500 mg calcium-20 mcg Tablet 1 tab PO DAILY Prevagen 1 cap PO DAILY Discontinued carvedilol 25 mg tablet 12.5 mg PO BID Discharge Order = DC NOW: Discharge Order (Routine); Ordered 12/28/24 Ordered By: Chandler Mcnamara Referrals: Fercho Rogers MD [Physician, Cardiology] - 01/21/25 3:15 pm Reggie Lyn MD [Primary Care Provider, Family Practice] - 01/05/25 12:10 pm Discharge Diet: Cardiac Discharge Activity: Increase activity as tolerated Patient Instructions: How to Stop Smoking (GEN), Cigarette Smoking and Your Health (GEN), Opioid Safety, Post Angiogram Home Care Instructions, Patient Portal & Leann Instructions Activity Restrictions/Additional Instructions: Use your nicotine patch 14 mg daily. You should avoid smoking when using nicotine patch because it will be additive on the amount of nicotine that you are using Take meds as newly prescribed. If you have blood pressure less than 100 systolic we would consider giving half the carvedilol dose Discharge Attestations Time Spent in Discharge Care*: greater than 30 min Time Spent in Smoking Cessation: 3 to 10 minutes Patient counseled regarding the vascular consequences of smoking and her fortunately mild vascular disease as well as use of nicotine patch Status at Discharge: Cognitive status at discharge: mildly impaired cognition , Behavioral status at discharge: [facility] , Quality Metrics Clinical Quality Measures [ Acute Myocardial Infaction { Clinical Trial Participant: No; Contraindication to aspirin: None; Aspirin prescribed; Contraindication to statin: None; Statin prescribed; Contraindication to PCI: Intervention not indicated; Contraindication to Fibrinolytics: Drug treatment not indicated}] Coding Level of Care Code 83300 Diagnoses Acute non-ST elevation myocardial infarction (NSTEMI) I21.4 Cardiomyopathy I42.9 Primary hypertension I10 Hypertension type: primary hypertension SBO (small bowel obstruction) K56.609 Time Spent (min) 40
--- NOTE | 2024-12-28 19:11 | PC.NURSE ---
Discharge instructions provided to and patient. TR band removed per protocol, dressing applied. All belongings sent home with patient.
== END 2024-12-28 17:00 | disposition home or self-care (01) | DRG 287 ==
LOC: ER 12-23 06:56 → ICU 12-23 07:28 → CSU 12-23 17:34
PROVIDERS: Internal Medicine; Internal Medicine Cardiovascular Disease; Student in an Organized Health Care Education/Training Program; Admitting Provider Student in an Organized Health Care Education/Training Program; Emergency Provider Emergency Medicine; PCP Family Medicine; Visit Provider Internal Medicine
PROC: 4A023N7 Measurement of Cardiac Sampling and Pressure, Left Heart, Percutaneous Approach (ICD-10-PCS; principal; 2024-12-28 07:45)
DX: I51.81 Takotsubo syndrome (principal); F02.84 Dementia in other diseases classified elsewhere, unspecified severity, with anxiety; I42.9 Cardiomyopathy, unspecified; K56.600 Partial intestinal obstruction, unspecified as to cause; I50.20 Unspecified systolic (congestive) heart failure; I11.0 Hypertensive heart disease with heart failure; G30.9 Alzheimer's disease, unspecified; F17.200 Nicotine dependence, unspecified, uncomplicated; K59.00 Constipation, unspecified; I48.91 Unspecified atrial fibrillation; E78.5 Hyperlipidemia, unspecified; M50.90 Cervical disc disorder, unspecified, unspecified cervical region; R10.9 Unspecified abdominal pain; G89.29 Other chronic pain; Z90.49 Acquired absence of other specified parts of digestive tract; Z98.890 Other specified postprocedural states; Z79.82 Long term (current) use of aspirin; F32.9 Major depressive disorder, single episode, unspecified
CPT/HCPCS: 36415; 36416; 71045; 74018; 74177; 80048; 80053; 80061; 81001; 82962; 83036; 83690; 83735; 83880; 84100; 84439; 84443; 84481; 84484; 85025; 85730; 87086; 93005; 93306; 93458; 94640; 96365; 96366; 96372; 96375; 96376; 99152; 99153; 99285; C1769; C1887; C1894; J0131; J0360; J1630; J1644; J2250; J2270; J2405; J2470; J3010; J3490; J7042; J9999; Q9963; Q9967

== ENCOUNTER → 2025-01-21 15:07 | Outpatient (BNVA) | payer MEDICARE, OTHER, SELFPAY | PROVIDERS: PCP Family Medicine; Visit Provider Internal Medicine Cardiovascular Disease | DX: I51.81 Takotsubo syndrome (principal); E78.5 Hyperlipidemia, unspecified; I25.10 Atherosclerotic heart disease of native coronary artery without angina pectoris; I10 Essential (primary) hypertension; R07.89 Other chest pain; F17.210 Nicotine dependence, cigarettes, uncomplicated | CPT/HCPCS: 99214 ==

== ENCOUNTER 2025-03-01 01:44 | Inpatient (IN) | payer MEDICARE, OTHER, SELFPAY ==
--- OUTSIDE RECORDS SUMMARY | 2025-02-25 16:07 | XMS_ITS | Encounter Summary ---
Author Organization [facility] Address [address] [place] [address] Care Team Providers Care Molder Pipe Covering Name Role Phone Reggie Lny MD Primary Care Provider Reason for Visit * Reason Comments Dementia Encounter Details Date Type Department Care Team (Latest Contact Info) Description 02/25/2025 4:07 PM AUTOMOBILE BODY REPAIR CHIEF - 02/25/2025 11:59 PM AUTOMOBILE BODY REPAIR CHIEF Hospital Encounter [facility] Neurology [facility] [address] [place] [address] Rush Arndt MD [address] [place] [phone] Discharge Disposition: Home or Self Care Social History Tobacco Use Types Packs/Day Years Used Date Smoking Tobacco: Never Assessed Comments Unknown Sex and Gender Information Value Date Recorded Sex Assigned at Not on file Legal Sex Female 9:16 AM AUTOMOBILE BODY REPAIR CHIEF Gender Identity Not on file Sexual Orientation Not on file documented as of this encounter Last Filed Vital Signs Vital Sign Reading Time Taken Comments Blood Pressure 134/63 02/25/2025 4:12 PM AUTOMOBILE BODY REPAIR CHIEF Pulse 83 02/25/2025 4:12 PM AUTOMOBILE BODY REPAIR CHIEF Temperature 36.6 C (97.8 F) 02/25/2025 4:12 PM AUTOMOBILE BODY REPAIR CHIEF Respiratory Rate - - Oxygen Saturation - - Inhaled Oxygen Concentration - - Weight 57.9 kg (127 lb 9.6 oz) 02/25/2025 4:12 P M AUTOMOBILE BODY REPAIR CHIEF Height 154.9 cm (5' 1 ) 02/25/2025 4:12 PM AUTOMOBILE BODY REPAIR CHIEF Body Mass Index 24.11 02/25/2025 4:12 PM AUTOMOBILE BODY REPAIR CHIEF documented in this encounter Medications at Time of Discharge carvediloL (COREG) 12.5 mg tablet Take 12.5 mg by mouth 2 times daily with meals. ondansetron (ZOFRAN) 8 mg Tablet TAKE 1 TABLET BY MOUTH THREE TIMES DAILY NEEDED FOR NAUSEA OR VOMITING 08/19/2023 busPIRone (BUSPAR) 5 mg tablet Take 10 mg by mouth 2 times daily. morphine (MS IR) 30 mg tablet Take 30 mg by mouth every 8 hours as needed for Pain. polyethylene glycol 3350 (MIRALAX) 17 gram/dose Powder Take 17 Grams by mouth daily. Dissolve in 8 ounces of fluid and drink entire liquid magnesium hydroxide (MILK OF MAGNESIA) 311 mg Tablet, Chewable Take 1,200 mg by mouth 4 times daily. documented as of this encounter Progress Notes * Rush Arndt MD - 02/25/2025 4:15 PM CST Anju Duffy is a 80 y.o. 1945 female returning to clinic for a follow-up appointment. She has been followed up in the past for dementia. Last seen in nov. She was started on the memantine 5mg BID and is tolerating it ok. No major changes in her memory. No past medical history on file. No past surgical history on file. No family history on file. Allergies Allergen Reactions Azithromycin Anaphylaxis Latex Rash Lorazepam Hallucination agitation Olanzapine Other (See Comments) and Hallucination agitation No outpatient medications have been marked as taking for the 02/25/25 encounter (Hospital Encounter) with Rush Arndt MD. Review of systems: Constitutional: negative for fever, chills, weight gain or weight loss Cardiovascular: negative for palpitations, chest pain, dyspnea Respiratory: negative for cough, sputum, shortness of breath PE Vitals: 02/25/25 1612 BP: 134/63 BP Location: Left arm Patient Position (BP): Sitting Pulse: 83 Temp: 97.8 ??F (36.6 ??C) TempSrc: Temporal Weight: 57.9 kg (127 lb 9.6 oz) Height: 5' 1 (1.549 m) General appearance: NAD Neuro: A&O to person and CN: PERRL at 3 mm, EOMI Motor: Nl tone, Nl bulk, 5/5 strength throughout Gait:mildly slowed Assessment/Plan: ICD-10-CM ICD-9-CM 1. 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 to double up the 5mg and call when he needs the 10mg RV 6 mos No orders of the defined types were placed in this encounter. 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
[2025-03-01] VITALS (11 sets, daily range): BP systolic 113–221; BP diastolic 63–109; PULSE 80–104; RESP 15–18; TEMP 36.6–36.8; O2SAT 92–99; BMI 22.3; BMI 23.2
--- OUTSIDE RECORDS SUMMARY | 2025-03-01 01:56 | XMS_ITS | Encounter Summary ---
Author Organization [facility] Address [address] [place] [address] Care Team Providers Care Employee Adviser Name Role Phone Reggie Lyn MD Primary Care Provider [phone] Encounter Details Date Type Department Care Team (Late st Contact Info) Description 11/16/2020 Lab Requisition [facility] General Laboratory Services [address] [place] [phone] [facility], External Provider [address] [place] [address] Social History Tobacco Use Types Packs/Day Years Used Date Smoking Tobacco: Never Assessed Comments Unknown Sex and Gender Information Value Date Recorded Sex Assigned at Not on file 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 Gender Identity Not on file Sexual Orientation Not on file documented as of this encounter Plan of Treatment Upcoming Encounters Date Type Department Care Team (Late st Contact Info) Description 09/02/2025 3:30 PM CDT Appointment [facility] Neurology [facility] [place] [address] [place] [phone] Rush Arndt MD [address] [place] [phone] documented as of this encounter Procedures Procedure Name Priority Date/Time Associated Diagnosis Comments BLOOD CULTURE Routine 11/16/2020 2:41 PM CDT documented in this encounter Results * (ABNORMAL) BLOOD CULTURE (11/16/2020 2:41 PM CDT) BLOOD CULTURE COAGULASE NEGATIVE STAPHYLOCOCCUS SPECIES, NOT STAPHYLOCOCCUS LUGDUNENSIS(A) 11/21/2020 1:36 PM CDT [facility] Comment:This organism isolat ed from one culture only. Susceptibility testing is not routinely performed as this organism frequently represents skin contaminants in blood cultures. If testing is indicated, please contact Microbiology. Blood Collection / Unknown 11/16/2020 2:41 PM CDT 11/16/2020 7:18 PM CDT Narrative [facility] - 11/21/2020 1:36 PM CDT Positive blood culture called to Cassi Landrum [place] ([facility] Microbiology), by Georgette Carrion on 11/17/2020 at 5:15 PM with verbal readback. Specimen processed with suboptimal blood volume collected. us External Provider [facility] MICROBIOLOGY - GENERAL ORD ERABLES Edited Result - Final [facility] CLIA # [id number] [facility] [address] [place] [address] documented in this encounter Visit Diagnoses Not on filedocumented in this encounter Care Teams Employee Adviser Relationship Specialty Start Date End Date Reggie Lyn MD [address] [place] [phone] PCP - General 10/02/05 documented as of this encounter
--- OUTSIDE RECORDS SUMMARY | 2025-03-01 01:56 | XMS_ITS | Encounter Summary ---
Author Organization [facility] Address 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 Gender Identity Not on file Sexual Orientation Not on file documented as of this encounter Plan of Treatment Upcoming Encounters Date Type Department Care Team (Late st Contact Info) Description 09/02/2025 3:30 PM CDT Appointment [facility] Neurology [facility] [address] [place] [phone] Rush Arndt MD [address] [place] [phone] documented as of this encounter Visit Diagnoses Not on filedocumented in this encounter Care Teams Special Agent In Charge Relationship Specialty Start Date End Date Reggie Lyn MD [address] [place] [address] PCP - General 10/02/05 documented as of this encounter
--- OUTSIDE RECORDS SUMMARY | 2025-03-01 01:56 | XMS_ITS | Encounter Summary ---
Author Organization [employer] [facility] Address [address] [place] [address] Care Team Providers Care Anchor Tacker Name Role Phone Reggie Lyn MD Primary Care Provider [phone] Encounter Details Date Type Department Care Team (Late st Contact Info) Description 10/02/2005 Inpatient Historical [facility] IN BED Alla Ross MD [address] [id number] Unspecified Ventral Hernia with Obstruction (Primary Dx) Social History Tobacco Use Types Packs/Day Years Used Date Smoking Tobacco: Never Assessed Comments Unknown Sex and Gender Information Value Date Recorded Sex Assigned at Not on file Legal Sex Female 4:40 AM 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 Gender Identity Not on file Sexual Orientation Not on file documented as of this encounter Plan of Treatment Not on file documented as of this encounter Procedures Procedure Name Priority Date/Time Associated Diagnosis Comments CBC WITH DIFFERENTIAL Routine 10/03/2005 5:10 AM CDT BASIC METABOLIC PANEL Routine 10/03/2005 5:10 AM CDT documented in this encounter Results * (ABNORMAL) BASIC METABOLIC PANEL (10/03/2005 5:10 AM CDT) GLUCOSE 163(H) 70 - 110 mg/dL INTERFACE SYSTEM BUN 7 7 - 17 mg/dL INTERFACE SYSTEM CREATININE 0.5(L) 0.7 - 1.2 mg/dL INTERFACE SYSTEM SODIUM 140 136 - 145 mEq/L INTERFACE SYSTEM POTASSIUM 3.8 3.5 - 5.0 mEq/L INTERFACE SYSTEM CHLORIDE 104 95 - 110 mEq/L INTERFACE SYSTEM CO2 25 22 - 32 mmol/l INTERFACE SYSTEM ANION GAP 15 9 - 20 mEq/L INTERFACE SYSTEM OSMOLALITY, CALCULATED 289 275 - 295 mOsm/Kg INTERFACE SYSTEM CALCIUM 8.7 8.4 - 10.5 mg/dL INTERFACE SYSTEM 10/03/2005 5:10 AM CDT Alla Ross MD CHEMISTRY ORDERABLES Final R esult INTERFACE SYSTEM Refer to clinic/hospital department * (ABNORMAL) CBC WITH DIFFERENTIAL (10/03/2005 5:10 AM CDT) WBC 10.5 4.8 - 10.8 K/ul INTERFACE SYSTEM RBC 4.16(L) 4.20 - 5.40 Mil/ul INTERFACE SYSTEM HEMOGLOBIN 12.4 12.0 - 16.0 g/dL INTERFACE SYSTEM HEMATOCRIT 37.6 36.0 - 46.0 % INTERFACE SYSTEM MCV 90.4 84.0 - 103.0 Fl INTERFACE SYSTEM MCH 29.8 27.0 - 34.0 pg INTERFACE SYSTEM MCHC 33.0 30.0 - 35.0 g/dL INTERFACE SYSTEM RDW 12.7 11.0 - 14.5 % INTERFACE SYSTEM PLATELETS 239 140 - 440 K/ul INTERFACE SYSTEM MPV 10.4 8.9 - 12.8 Fl INTERFACE SYSTEM NEUTROPHILS 78.1(H) 42.2 - 75.2 % INTERFACE SYSTEM LYMPHOCYTES 9.3(L) 24.0 - 44.0 % INTERFACE SYSTEM MONOCYTES 12.4(H) 2.0 - 10.0 % INTERFACE SYSTEM EOSINOPHILS 0.1 0.0 - 7.0 % INTERFACE SYSTEM BASOPHILS 0.1 0.0 - 1.0 % INTERFACE SYSTEM NEUTROPHIL ABSOLUTE 8.2(H) 2.0 - 8.0 K/uL INTERFACE SYSTEM LYMPHOCYTE ABSOLUTE 1.0(L) 1.2 - 4.0 K/ul INTERFACE SYSTEM MONOCYTE ABSOLUTE 1.3(H) 0.1 - 0.6 K/ul INTERFACE SYSTEM EOSINOPHIL ABSOLUTE 0.0 0.0 - 0.7 K/ul INTERFACE SYSTEM BASOPHILS ABSOLUTE 0.0 0.0 - 0.2 K/ul INTERFACE SYSTEM 10/03/2005 5:10 AM CDT us M Andrew Ross MD HEMATOLOGY ORDERABLES Final Result INTERFACE SYSTEM Refer to clinic/hospital department documented in this encounter Visit Diagnoses Diagnosis Ventral hernia, unspecified, with obstruction- Primary documented in this encounter Care Teams Anchor Tacker Relationship Specialty Start Date End Date Reggie Lyn MD [address] [place] [address] PCP - General 10/02/05 documented as of this encounter
--- OUTSIDE RECORDS SUMMARY | 2025-03-01 01:56 | XMS_ITS | Clinical Summary ---
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
--- OUTSIDE RECORDS SUMMARY | 2025-03-01 01:56 | XMS_ITS | Encounter Summary ---
Author Organization [facility] Address [address] [place] [address] Care Team Providers Care Clarifier Operator Name Role Phone Reggie Lyn MD Primary Care Provider Encounter Details Date Type Department Care Team (Latest Contact Info) Description 10/18/2005 Outpatient Historical [facility] Gen Spec Surg [address] [place] [address] Alla Ross MD [address] [place] [address] Incisional Hernia with Obstruction (Primary Dx); Follow-Up Examination, Following Unspecified Surgery Social History Tobacco Use Types Packs/Day Years Used Date Smoking Tobacco: Never Assessed Comments Unknown Sex and Gender Information Value Date Recorded Sex Assigned at Not on file Legal Sex Female 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
--- OUTSIDE RECORDS SUMMARY | 2025-03-01 01:56 | XMS_ITS | Clinical Summary ---
Author Organization [facility] Address [address] [place] [address] Care Team Providers Care Inside Sales Lead Name Role Phone Reggie Lyn MD Primary Care Provider Allergies Active Allergy Reactions Criticality Noted Date Comments Azithromycin Anaphylaxis High 09/06/2023 Latex Rash Low 09/06/2023 Lorazepam Hallucination Low 09/06/2023 agitation Olanzapine Other (See Comments),Hallucination Low 0 09/06/2023 agitation Medications ondansetron (ZOFRAN) 8 mg Tablet TAKE 1 TABLET BY MOUTH THREE TIMES DAILY NEEDED FOR NAUSEA OR VOMITING Active busPIRone (BUSPAR) 5 mg tablet Take 10 mg by mouth 2 times daily. Active morphine (MS IR) 30 mg tablet Take 30 mg by mouth every 8 hours as needed for Pain. Active polyethylene glycol 3350 (MIRALAX) 17 gram/dose Powder Take 17 Grams by mouth daily. Dissolve in 8 ounces of fluid and drink entire liquid Active magnesium hydroxide (MILK OF MAGNESIA) 311 mg Tablet, Chewable Take 1,200 mg by mouth 4 times daily. Active carvediloL (COREG) 12.5 mg tablet Take 12.5 mg by mouth 2 times daily with meals. Active memantine (NAMENDA) 5 mg Tablet Take 1 Tablet (5 mg) by mouth 2 times daily. 180 Tablet 3 5 025 Discontinued Active Problems Problem Noted Date Diagnosed Date Moderate late onset Alzheimer's dementia with an xiety 11/12/2024 Encounters Date Type Department Care Team Description 02/25/2025 4:07 PM CASINO MANAGER - 02/25/2025 11:59 PM [facility] Hospital Encounter [facility] Neurology Clinic [place] [address] [place] [phone] Rush Arndt MD Discharge Disposition: Home or Self Care 02/23/2025 External Device Data STL ABSTRACTION Provider, Abstract 02/02/2025 External Device Data STL ABSTRACTION Provider, Abstract 01/12/2025 External Device Data STL ABSTRACTION Provider, Abstract 12/24/2024 Telephone [facility] Neurology [address] [place] [phone] Rush Arndt MD Med Refill from Last 3 Months Immunizations Immunization Administration Dates Next Due Influenza Seasonal Unspecified Formulation IM Social History Tobacco Use Types Packs/Day Years Used Date Smoking Tobacco: Never Assessed Comments Unknown Sex and Gender Information Value Date Recorded Sex Assigned at Not on file Legal Sex Female 9:16 AM CASINO MANAGER Gender Identity Not on file Sexual Orientation Not on file Last Filed Vital Signs Vital Sign Reading Time Taken Comments Blood Pressure 134/63 02/25/2025 4:12 PM CASINO MANAGER Pulse 83 02/25/2025 4:12 PM CASINO MANAGER Temperature 36.6 C (97.8 F) 02/25/2025 4:12 PM CASINO MANAGER Respiratory Rate 18 11/12/2024 2:29 PM CDT Oxygen Saturation 97% 11/12/2024 2:29 PM CDT Inhaled Oxygen Concentration - - Weight 57.9 kg (127 lb 9.6 oz) 02/25/2025 4:12 P M CASINO MANAGER Height 154.9 cm (5' 1 ) 02/25/2025 4:12 PM CASINO MANAGER Body Mass Index 24.11 02/25/2025 4:12 PM CASINO MANAGER Plan of Treatment Upcoming Encounters Date Type Department Care Team (Late st Contact Info) Description 09/02/2025 3:30 PM CDT Appointment [facility] Neurology [address] [place] [phone] Rush Arndt MD [address] [place] [phone] Health Maintenance Due Date Last Done Comments DTAP/TDAP/TD VACCINES (1 - Tdap) 1966 PNEUMOCOCCAL VACCINE 50+ YEA RS (1 of 1 - PCV) 1997 ZOSTER VACCINE (1 of 2) 1997 OSTEOPOROSIS SCREENING 02/22/2012 RSV VACCINE (60+ or ) (1 - 1-dose 75+ series) 2022 INFLUENZA VACCINE (#1) 2024 , 11/30/2021, 12/29/2020, Additional history exists COVID-19 Vaccine (2024-2 6 season) 2024 11/25/2023, 06/04/2023, 12/31/2022, Additional history exists Insurance MEDICARE PART A AND B [employer] SU[employer] GREGORIA RODRIGUEZ [id number] Care Teams Inside Sales Lead Relationship Specialty Start Date End Date Reggie Lyn MD [address] [place] [address] PCP - General 10/02/05
--- OUTSIDE RECORDS SUMMARY | 2025-03-01 01:56 | XMS_ITS | Encounter Summary ---
Author Organization [facility] Address [address] [place] [address] Care Team Providers Care Mobile Application Architect Name Role Phone Reggie Lyn MD Primary Care Provider Encounter Details Date Type Department Care Team (Late Contact Info) Description 11/18/2020 Lab Requisition [facility] General Laboratory Services [address] 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 Gender Identity Not on file Sexual Orientation Not on file documented as of this encounter Plan of Treatment Upcoming Encounters Date Type Department Care Team (Late st Contact Info) Description 09/02/2025 3:30 PM CDT Appointment [facility] Neurology Clinic [place] [address] [place] [phone] Rush Arndt MD [address] [place] [address] documented as of this encounter Procedures Procedure Name Priority Date/Time Associated Diagnosis Comments BLOOD CULTURE Routine 11/18/2020 1:39 PM CDT documented in this encounter Results * (ABNORMAL) BLOOD CULTURE (11/18/2020 1:39 PM CDT) BLOOD CULTURE STAPHYLOCOCCUS EPIDERMIDIS(A) VERONICA MCG/ML 11/22/2020 7:07 AM CDT [facility] Blood Collection / Unknown 11/18/2020 1:39 PM CDT 11/18/2020 7:31 PM CDT Narrative [facility] - 11/22/2020 7:07 AM CDT This isolate is a coagulase negative Staphylococcus species. Positive blood culture called to Rashida Stevens at [facility] by FORTUNATO PIKE on 11/19/2020 at 7:09 PM with verbal readback. Specimen processed with suboptimal blood volume collected. Organism Antibiotic Method Susceptibility Staphylococcus epidermidis CLINDAMYCIN VERONICA MCG/ML <=0.12 mcg/mL: Susceptible Staphylococcus epidermidis ERYTHROMYCIN VERONICA MCG/ML <=0.25 mcg/mL: Susceptible Staphylococcus epidermidis OXACILLIN (Nafcillin) VERONICA MCG/ML <=0.25 mcg/mL: Susceptible Comment:Oxacillin (N afcillin) susceptible Staphylococcus species are predictably susceptible to cefazolin, ceftriaxone, cephalexin, and amoxicillin-clavulanate Staphylococcus epidermidis VANCOMYCIN VERONICA MCG/ML 1 mcg/mL: Susceptible Staphylococcus epidermidis DOXYCYCLINE VERONICA MCG/ML <=0.5 mcg/mL: Susceptible Krista Mcdermott PA-C MICROBIOLOGY - GENERAL ORDE SHANNON Final Result [facility] CLIA # [id number] [facility] [address] [place], [place] [address] documented in this encounter Visit Diagnoses Not on filedocumented in this encounter Care Teams Mobile Application Architect Relationship Specialty Start Date End Date Reggie Lyn MD [facility] [place] [phone] PCP - General 10/02/05 documented as of this encounter
--- OUTSIDE RECORDS SUMMARY | 2025-03-01 01:56 | XMS_ITS | Encounter Summary ---
Author Organization [facility] Address [address] [place] [address] Care Team Providers Care Consulting Intern Name Role Phone Reggie Lyn MD Primary Care Provider [phone] Encounter Details Date Type Department Care Team (Late st Contact Info) Description 11/21/2020 Lab Requisition [facility] General Laboratory Services [address] [place] [phone] [facility], External Provider [address] [place] [address] Social History Tobacco Use Types Packs/Day Years Used Date Smoking Tobacco: Never Assessed Comments Unknown Sex and Gender Information Value Date Recorded Sex Assigned at Not on file 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 Gender Identity Not on file Sexual Orientation Not on file documented as of this encounter Plan of Treatment Upcoming Encounters Date Type Department Care Team (Late st Contact Info) Description 09/02/2025 3:30 PM CDT Appointment [facility] Neurology Clinic [place] [address] [place] [address] Rush Arndt MD [address] [place] [phone] documented as of this encounter Procedures Procedure Name Priority Date/Time Associated Diagnosis Comments BLOOD CULTURE Routine 11/21/2020 12:55 PM CDT documented in this encounter Results * BLOOD CULTURE (11/21/2020 12:55 PM CDT) BLOOD CULTURE No growth 11/26/2020 8:04 PM CDT [facility] Blood Collection / Unknown 11/21/2020 12:55 PM CDT 11/21/2020 7:24 PM CDT us External Provider [facility] MICROBIOLOGY - GENERAL ORD ERABLES Final Result [facility] CLIA # [id number] [facility] [address] documented in this encounter Visit Diagnoses Not on filedocumented in this encounter Care Teams Consulting Intern Relationship Specialty Start Date End Date Reggie Lyn MD [address] [place] [phone] PCP - General 10/02/05 documented as of this encounter
--- OUTSIDE RECORDS SUMMARY | 2025-03-01 01:56 | XMS_ITS | Encounter Summary ---
Author Organization [facility] Address [address] [place] [address] Care Team Providers Care Director Of Pharmacy Name Role Phone Reggie Lyn MD Primary Care Provider Encounter Details Date Type Department Care Team (Late st Contact Info) Description 11/12/2020 Lab Requisition [facility] [address] [place] [phone] [facility], External Provider [address] [place] [address] Social History Tobacco Use Types Packs/Day Years Used Date Smoking Tobacco: Never Assessed Comments Unknown Sex and Gender Information Value Date Recorded Sex Assigned at Not on file 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 Gender Identity Not on file Sexual Orientation Not on file documented as of this encounter Plan of Treatment Upcoming Encounters Date Type Department Care Team (Late st Contact Info) Description 09/02/2025 3:30 PM CDT Appointment [facility] [place] [address] [place] [phone] Rush Arndt MD [address] [place] [phone] documented as of this encounter Procedures Procedure Name Priority Date/Time Associated Diagnosis Comments BLOOD CULTURE Routine 11/12/2020 8:35 AM CDT documented in this encounter Results * (ABNORMAL) BLOOD CULTURE (11/12/2020 8:35 AM CDT) BLOOD CULTURE COAGULASE NEGATIVE STAPHYLOCOCCUS SPECIES, NOT STAPHYLOCOCCUS LUGDUNENSIS(A) 11/14/2020 7:17 AM CDT [facility] Comment:This organism isolat ed from one culture only. Susceptibility testing is not routinely performed as this organism frequently represents skin contaminants in blood cultures. If testing is indicated, please contact Microbiology. Blood Collection / Unknown 11/12/2020 8:35 AM CDT 11/12/2020 11:46 AM CDT Narrative [facility] - 11/14/2020 7:17 AM CDT Positive blood culture called to Ines Voss by Katerine Serrano on 11/13/2020 at 4:39 AM with verbal readback. External Provider [facility] MICROBIOLOGY - GENERAL ORD ERABLES Final Result [facility] CLIA # [id number] Formerly [facility] [address] documented in this encounter Visit Diagnoses Not on filedocumented in this encounter Care Teams Director Of Pharmacy Relationship Specialty Start Date End Date Reggie Lyn MD [address] [place] [address] PCP - General 10/02/05 documented as of this encounter
--- OUTSIDE RECORDS SUMMARY | 2025-03-01 01:57 | XMS_ITS | Patient Health Record ---
Author Organization [facility] Address [address] [place] [address] Care Team Providers Care Risk And Compliance Analytics Director Name Role Phone Krista Zhang Primary Care Provider Ralph Giordano [phone] Allergies Allergen (clinical drug ingredient) Drug/Non Drug Allergy documented on EMR Reaction Allergy Type Onset Date Status Latex Latex rash Allergy Active Reason For Referral No Information Medications Medication SIG (Take, Route, Frequency, Duration) Notes Start Date End Date Status Ondansetron HCl 4 MG Tablet 1 tablet Ora lly as needed; Duration: 30 Active busPIRone HCl 10 MG Tablet 1 tablet Oral ly Twice a day; Duration: 30 Active Multivitamin Adult - Tablet as directed Orally Active hydroCHLOROthiazide 25 MG Tablet 1 tablet in the morning Orally Once a day; Duration: 30 Active SUMAtriptan Succinate 100 MG Tablet 1/2 tablet Orally as needed; Duration: 30 Active Dulcolax 5 MG Tablet Delayed Release 1 tablet as needed Orally Once a day Active Magnesium 500 MG Tablet 2 tablets Orally twice a day; Duration: 30 day(s) Active Carvedilol 25 MG Tablet 1 tablet with fo od Orally Twice a day; Duration: 79 Active Social History Tobacco Use: Social History Observation Description Date Details (start date - stop date) Current Smoker NA - NA Social History Depression Screening Social Info Question Answer Notes PHQ-9 Little interest or pleasure in doing thin gs Not at all Feeling down, depressed, or hopeless Several day s Trouble falling or staying asleep, or sleeping t oo much Not at all Feeling tired or having little energy Not at all Poor appetite or overeating Not at all Feeling bad about yourself, or that you are a failure, or have let yourself or your family down Several days Trouble concentrating on thi ngs, such as reading the newspaper or watching television Not at all Moving or speaking so slowly that other people could have noticed. Or the opposite ? being so fidgety or restless that you have been moving around a lot more than usual Not at all Thoughts that you would be b daja off , or of hurting yourself in some way Not at all Total Score 2 Interpretation Minimal Depression Drugs/Alcohol: Social Info Question Answer Notes Alcohol Screen (Audit-C) Did you have a drink containing alcohol in the past year? No Points 0 Interpretation Negative Tobacco Use: Social Info Question Answer Notes xTobacco Use/Smoking Are you a current smoker How often do you smoke cigarettes? every day How many cigarettes a day do you smoke? 6-10 How soon after you wake up do you smoke your first cigarette? within 5 minutes Are you interested in quitting? Thinking about quitting Additional Details Category Social Info Options Details Miscellaneous: Marital status: Occupation: Retired Plan Of Treatment No Information Insurance Providers Payer Name Payer Address Payer Phone Subscriber Number Group Number Insured Name Patient Relationship to Insured Coverage Start Date Coverage End Date [place] [address] [place] [phone] [id number] Anju Duffy Self - patient is the insured [employer] [address] [address] [place] [address] [id number] Anju Duffy Self - patient is the insured Medical (General) History Medical History History ICD Code measles, mumps and chicken pox as a chil d pneumonia arthritis migraine headaches tuberculosis positive test diabetes abdominal hernia hypertension bronchitis Surgical History Surgery Date(Month/Year) abdominal hernia mesh abdominal 4 x4 infection removal Necrot izing fasciitis 2018 diverticulitis/bowel obstruction resecti on with stoma 2018 Hospitalization History Reason Date(Month/Year) diverticulitis bowel obstruction
--- NOTE | 2025-03-01 02:24 | CTR_ITS ---
PROCEDURE INFORMATION: Exam: CT Abdomen And Pelvis Without Contrast Exam date and time: 03/01/2025 2:52 AM Age: 80 years old Clinical indication: Nausea and vomiting; Abdominal pain; Generalized; Prior surgery; Surgery date: 6+ months; Surgery type: Gb. Hernia repair. Small bowel resection. Partial colectomy. Hysterectomy. C/O diffuse abd pain with n/v. Chronic history of recurrent sbo. ; Additional info: RO sbo TECHNIQUE: Imaging protocol: Computed tomography of the abdomen and pelvis without contrast. Radiation optimization: All CT scans at this facility use at least one of these dose optimization techniques: automated exposure control; mA and/or kV adjustment per patient size (includes targeted exams where dose is matched to clinical indication); or iterative reconstruction. COMPARISON: CT abdomen pelvis w con* [id number] 12/23/2024 1:17 AM RADIATION DOSE METRICS: Total DLP (mGy-cm): 712.86 FINDINGS: Liver: Normal. No mass. Gallbladder and biliary ducts: Pneumobilia. Dilated common bile duct measures 2.6 cm. Cholecystectomy clips. Pancreas: Normal. No ductal dilation. Spleen: Normal. No splenomegaly. Adrenal glands: Normal. No mass. Kidneys and ureters: No nephrolithiasis, hydronephrosis, or obstructive uropathy. Left renal cyst measures 1.5 cm. Stomach and bowel: Dilated small bowel measuring up to 4.5 cm, concerning for bowel obstruction. Obstruction is likely from adhesions adjacent to the anastomotic suture line in the right lower quadrant. Surgical evaluation recommended. Appendix: No evidence of appendicitis. Intraperitoneal space: Unremarkable. No free air. No significant fluid collection. Vasculature: Atherosclerotic changes of the aorta. Atherosclerotic changes of the aorta. Lymph nodes: Unremarkable. No enlarged lymph nodes. Urinary bladder: Unremarkable as visualized. Reproductive: Unremarkable as visualized. Bones/joints: Degenerative changes of the spine. Degenerative changes of the spine. Soft tissues: Unremarkable. CT/CT abdomen pelvis wo con [id number] IMPRESSION: 1. Dilated small bowel measuring up to 4.5 cm, concerning for bowel obstruction. Obstruction is likely from adhesions adjacent to the anastomotic suture line in the right lower quadrant. Surgical evaluation recommended. 2. Pneumobilia. Dilated common bile duct measures 2.6 cm. 3. Cholecystectomy clips. 4. No nephrolithiasis, hydronephrosis, or obstructive uropathy. COMMENTS: Consistent with the [place] [employer]'s Incidental Findings Committee white paper (J Am Patricia Radiol 2018): Any incidental renal lesion less than 1 cm or classified as too small to characterize, or any incidental cystic renal lesion characterized as simple-appearing, is likely benign. No follow-up imaging is recommended for these lesions per consensus recommendations based on imaging criteria.
--- NOTE | 2025-03-01 02:25 | ECG_ITS ---
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1945 Requested By: Shashank Ortega Order Number: [id number] Lindsay MD: СВЕТЛАНА OWENS Measurements Intervals [place] Rate: 78 P: 85 [place]: 193 QRS: 24 QRSD: 131 T: 115 QT: 446 QTc: 509 Interpretive Statements SINUS RHYTHM WITH OCCASIONAL SUPRAVENTRICULAR PREMATURE COMPLEXES LEFT BUNDLE BRANCH BLOCK [120+ ms QRS DURATION, 80+ ms Q/S IN V1/V2, 85+ ms R IN I/aVL/V5/V6] Compared to ECG 12/23/2024 04:15:20 Left bundle-branch block now present Sinus arrhythmia no longer present Myocardial infarct finding no longer present Electronically Signed On 03-02-2025 11:59:57 EMPLOYMENT SPECIALIST by СВЕТЛАНА OWENS [email or web address]
--- NOTE | 2025-03-01 02:25 | XRR_ITS ---
PROCEDURE INFORMATION: Exam: XR Chest Exam date and time: 03/01/2025 2:41 AM Age: 80 years old Clinical indication: Shortness of breath; Prior surgery; Surgery date: 6+ months; Surgery type: Gb; C/O SOB TECHNIQUE: Imaging protocol: Radiologic exam of the chest. Views: 1 view. COMPARISON: CR XR chest 1V portable [id number] 12/25/2024 8:07 AM FINDINGS: Lungs: Unremarkable. No consolidation. Pleural spaces: No focal consolidation, pleural effusion, or pneumothorax. Heart/Mediastinum: Unremarkable. No cardiomegaly. Bones/joints: Hydroxyapatite in the left rotator cuff. XR/XR chest 1V portable [id number] IMPRESSION: No focal consolidation, pleural effusion, or pneumothorax.
[2025-03-01] MEDS: morphine 4 mg/mL SDV 1 mL IVP (02:46)
[2025-03-01] MEDS: ondansetron 2 mg/ML SDV 2 mL 4 MG IM (02:46)
--- NOTE | 2025-03-01 02:46 | W.ED.ABDPA2 ---
HPI - Abdominal Pain General: Chief Complaint: Abdominal Pain Stated Complaint: believes bowl blockage Time Seen by Provider: 03/01/25 02:24 History of Present Illness: Patient is a 80-year-old female with past medical history of hypertension, dementia, CAD, extensive abdominal surgical history with recurrent SBO's who presents to the ED with nausea vomiting that started a few hours ago. History limited secondary to retching on exam. stated it started shortly after dinner, has not had this for a couple months. No recent fevers or flulike symptoms. Related Data Home Medications ?Medication ?Instructions ?Recorded ?Confirmed ondansetron HCl 8 mg tablet 8 mg PO TID PRN Nausea And Vomiting 08/06/24 01/21/25 memantine 5 mg tablet 5 mg PO BID 11/30/24 01/21/25 Prevagen 1 cap PO DAILY 12/23/24 01/21/25 aspirin 325 mg tablet (Erickson 325 mg PO DAILY 12/23/24 01/21/25 Aspirin) ibuprofen 200 mg tablet (Advil) 400 mg PO Q6H PRN Fever Or Pain 12/23/24 01/21/25 fxrvxrhx-dli-bhtov ac 400 1 tab PO DAILY 12/23/24 01/21/25 mcg-calcium carb 500 mg-vit K1 20 mcg tablet Previous Rx's ?Medication ?Instructions ?Recorded Covid Vaccine #1 ea 11/16/24 buspirone 10 mg tablet See Rx Instructions .Route 11/20/24 .COMPLEX #360 tabs potassium chloride 10 mEq 10 meq PO DAILY #90 tabs 12/19/24 tablet,extended release (Klor-Con) nicotine 14 mg/24 hr daily 1 patch transdermal DAILY PRN 12/28/24 transdermal patch nicotine withdrawal #15 ea polyethylene glycol 3350 17 gram 17 g PO DAILY #30 ea 12/28/24 oral powder packet morphine 15 mg immediate release 15 mg PO TID PRN pain 90 days #10 01/05/25 tablet tabs carvedilol 3.125 mg tablet See Rx Instructions .Route 01/12/25 .COMPLEX #180 tabs atorvastatin 40 mg tablet 40 mg PO BEDTIME #90 tabs 01/21/25 sacubitril 24 mg-valsartan 26 mg 1 tab PO BID #180 tabs 01/21/25 tablet (Entresto) hydroxyzine HCl 25 mg tablet 25 mg PO BID PRN itching #60 tabs 02/17/25 Allergies Allergy/AdvReac Type Severity Reaction Status Date / Time azithromycin Allergy ALGY-Anaphy Verified 01/21/25 15:31 laxis Latex, Natural Rubber Allergy ALGY-Rash Verified 01/21/25 15:31 olanzapine (From Zyprexa) Allergy hallucinati Verified 01/21/25 15:31 ons/agitate d lorazepam (From Ativan) AdvReac hallucination, Verified 01/21/25 15:31 agitated Review of Systems General: Reports: 10 or more systems reviewed and unremarkable except in HPI and below PFSH ED PFSH: Medical History Left shoulder pain Left upper arm pain after immunization [facility] fall [facility] Balance problem Depression, major Pain management contract signed Chronic abdominal pain uses morphine only if severe abd pain to keep her out of ER Hx MRSA infection hx of necrotizing fasciitis and hx of MRSA sepsis Hypokalemia Nicotine dependence, cigarettes, with unspecified nicotine-induced disorders Chronic constipation Hx SBO Atrial fibrillation 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 Roberts Hx of abdominal surgery has had total of 13 abd surgeries---most related to bowel obstructions due to adhesions and had complication of bowel laceration with surgery and had infection Hx of appendectomy History of delivery X 1 History of neck surgery History of cholecystectomy H/O hernia repair inguinal; hx of mesh H/O colectomy due to bowel obstruction from adhesions; S/P dilatation of esophageal stricture S/P ANH-BSO endometriosis; no cancer Family History Mother Congestive heart failure (CHF) Rheumatoid arthritis Social History Smoking and tobacco/nicotine status: current every day tobacco/nicotine user cigarettes Packs smoked per day: 0.75 Alcohol intake: never Substance/Drug Use: never Lives independently: No Household members: spouse Marital status: Number of children: 3 Highest education level completed: Bachelor's Degree Current occupational status: retired 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 Abdomen mildly distended, soft, very decreased bowel sounds, not peritonitic, no CVA tenderness. Sinus tachycardia, normotensive, no leg swelling, slightly delayed cap refill, 2+ pulses throughout. Breathing comfortably on room air, saturating well. Course Vital Signs: Vital signs: Vital Signs Temperature 98.1 F 03/01/25 02:11 Pulse Rate 87 03/01/25 05:44 Respiratory Rate 18 03/01/25 02:46 Blood Pressure 139/63 03/01/25 05:44 Pulse Oximetry 99 03/01/25 05:44 Oxygen Delivery Me thod Nasal Cannula 03/01/25 05:01 Oxygen Flow Rate 2 03/01/25 05:01 MDM - Abdominal Pain Medical Decision Making -ddx: SBO, constipation, ileus, hollow viscus injury, intra-abdominal abscess, cystitis, pyelonephritis, dehydration, electrolyte abnormality, gastritis - Patient with extensive intra-abdominal surgical history complicated by many recurrent SBO's seemingly presenting with same way today, actively retching on exam, will get CT Noncon, administer fluids, Zofran, pain medicine and reassess. - On CT scan patient with recurrent SBO, no evidence of intra-abdominal abscess, free air, concerns for pneumatosis. Patient felt better with above pain medications, shortly returned after some time and so given a second dose and NG tube placed with about 500 cc of bile returned. For medical management of her SBO she was admitted to the hospital. Troponin slightly elevated, with probable small amount of type II NSTEMI, demand from her SBO but do not believe to be true ACS, she has also had this previously. Admitted to the hospital in stable condition, patient and updated at bedside and agreeable with plan of care. Lab Data 03/01/25 02:53 03/01/25 02:53 Labs/Radiology: Radiology Impressions Abdomen/Pelvis CT 03/01/25 02:24 IMPRESSION: 1. Dilated small bowel measuring up to 4.5 cm, concerning for bowel obstruction. Obstruction is likely from adhesions adjacent to the anastomotic suture line in the right lower quadrant. Surgical evaluation recommended. 2. Pneumobilia. Dilated common bile duct measures 2.6 cm. 3. Cholecystectomy clips. 4. No nephrolithiasis, hydronephrosis, or obstructive uropathy. COMMENTS: Consistent with the [place] [employer]'s Incidental Findings Committee white paper (J Am Patricia Radiol 2018): Any incidental renal lesion less than 1 cm or classified as too small to characterize, or any incidental cystic renal lesion characterized as simple-appearing, is likely benign. No follow-up imaging is recommended for these lesions per consensus recommendations based on imaging criteria. Laboratory Results WBC 13.47 10^3/uL (3.29-11.43) H 03/01/25 02:53 RBC 5.68 10^6/uL (3.85-5.65) H 03/01/25 02:53 Hgb 17.30 g/dL (11.27-16.99) H 03/01/25 02:53 Hct 51.3 % (36-47) H 03/01/25 02:53 MCV 90.3 fl (85-98) 03/01/25 02:53 MCH 30.5 pg (27-33) 03/01/25 02:53 MCHC 33.7 g/dL (30-55) 03/01/25 02:53 RDW 12.8 % (12.1-15.1) 03/01/25 02:53 Plt Count 218 10^3/cmm (157-399) 03/01/25 02:53 MPV 10.5 fL (7.4-10.4) H 03/01/25 02:53 Neut % (Auto) 66.8 % 03/01/25 02:53 Lymph % (Auto) 26.9 % 03/01/25 02:53 Guthrie % (Auto) 4.2 % 03/01/25 02:53 Eos % (Auto) 1.3 % 03/01/25 02:53 Baso % (Auto) 0.4 % 03/01/25 02:53 Neut # (Auto) 9.02 10^3/uL (1.8-7.7) H 03/01/25 02:53 Lymph # (Auto) 3.6 10^3/uL (0.8-4.8) 03/01/25 02:53 Guthrie # (Auto) 0.6 10^3/uL (0.2-0.9) 03/01/25 02:53 Eos # (Auto) 0.2 10^3/uL (0.0-0.8) 03/01/25 02:53 Baso # (Auto) 0.1 10^3/uL (0.0-0.1) 03/01/25 02:53 Nucleated RBC % (auto) 0 % 03/01/25 02:53 Nucleated RBCs # 0.0 /100WBC 03/01/25 02:53 Sodium 141 mmol/L (136-145) 03/01/25 02:53 Potassium 4.2 mmol/L (3.5-5.1) 03/01/25 02:53 Chloride 101 mmol/L (98-107) 03/01/25 02:53 Carbon Dioxide 23 mmol/L (22-29) 03/01/25 02:53 Anion Gap 21.2 (5-19) H 03/01/25 02:53 BUN 16 mg/dL (8-23) 03/01/25 02:53 Creatinine 0.8 mg/dL (0.5-0.9) 03/01/25 02:53 GFR Calculation Not Reportable 03/01/25 02:53 Glucose 146 mg/dL (65-115) H 03/01/25 02:53 Calculated Osmolality 296 mOsm/kg (285-295) H 03/01/25 02:53 Lactic Acid 1.9 mmol/L (0.5-2.2) 03/01/25 02:53 Calcium 10.5 mg/dL (8.5-10.5) 03/01/25 02:53 Phosphorus 3.9 mg/dL (2.5-4.5) 03/01/25 02:53 Total Bilirubin 1.0 mg/dL (0.15-1.2) 03/01/25 02:53 AST 40 U/L (0-32) H 03/01/25 02:53 ALT 24 U/L (0-33) 03/01/25 02:53 Alkaline Phosphatase 79 U/L (35-105) 03/01/25 02:53 Troponin T Baseline 21 ng/L (0-10) H 03/01/25 02:53 Troponin T 60 Minute 60.79 ng/L (0-10) H 03/01/25 04:04 Delta Troponin T 39.79 ABS# (0-10) H* 03/01/25 04:04 C-Reactive Protein 3.0 mg/L (0.0-4.9) 03/01/25 02:53 NT-Pro-B Natriuret Pep 186 pg/mL (0-450) 03/01/25 02:53 Total Protein 7.1 g/dL (6.6-8.7) 03/01/25 02:53 Albumin 5.0 g/dL (3.5-5.2) 03/01/25 02:53 Globulin 2.1 g/dL (1.3-4.6) 03/01/25 02:53 Lipase 220 U/L (13-60) H 03/01/25 02:53 All radiology interpretation(s) finalized by discharge Discharge Plan Discharge Admit Provider: Chandler Mcnamara Condition: Stable Coding Level of Care Code ED Other Spatial Scientist for Tad Sanderson
[2025-03-01 03:01] LABS: Hematocrit 51.3 % (36-47); Hemoglobin 17.30 g/dL (11.27-16.99); Mean Corpuscular HGB Conc 33.7 g/dL (30-55); Mean Corpuscular Hemoglobin 30.5 pg (27-33); Mean Corpuscular Volume 90.3 fl (85-98); Nucleated Red Blood Cells % 0 %; Platelet Count 218 10^3/cmm (157-399); Red Blood Count 5.68 10^6/uL (3.85-5.65); White Blood Count 13.47 10^3/uL (3.29-11.43)
[2025-03-01 03:20] LABS: Troponin(5th) Baseline 21 ng/L (0-10)
[2025-03-01 03:24] LABS: Lactic Sepsis W/Reflex 1.9 mmol/L (0.5-2.2)
[2025-03-01 03:27] LABS: Alanine Aminotransferase 24 U/L (0-33); Albumin Level 5.0 g/dL (3.5-5.2); Alkaline Phosphatase 79 U/L (35-105); Anion Gap 21.2 (5-19); Aspartate Amino Transferase 40 U/L (0-32); Blood Urea Nitrogen 16 mg/dL (8-23); Calcium 10.5 mg/dL (8.5-10.5); Carbon Dioxide 23 mmol/L (22-29); Chloride 101 mmol/L (98-107); Globulin 2.1 g/dL (1.3-4.6); Glucose 146 mg/dL (65-115); Lipase 220 U/L (13-60); Osmolality Calculated 296 mOsm/kg (285-295); Potassium 4.2 mmol/L (3.5-5.1); Sodium 141 mmol/L (136-145); Total Protein 7.1 g/dL (6.6-8.7)
[2025-03-01 03:36] LABS: NT Pro B Type Natriuretic Pept 186 pg/mL (0-450)
[2025-03-01] MEDS: metoclopramide 5 mg/mL SDV 2 mL 10 MG IVP (04:04)
[2025-03-01] MEDS: HYDROmorphone 0.5 MG/0.5 ML INJ IVP (04:05)
--- NOTE | 2025-03-01 04:32 | XRR_ITS ---
PROCEDURE INFORMATION: Exam: XR Chest Exam date and time: 03/01/2025 4:39 AM Age: 80 years old Clinical indication: Device placement; Ng tube; Prior surgery; Surgery date: 6+ months; Surgery type: Gb; Check S/P ng placement; Additional info: Post ng TECHNIQUE: Imaging protocol: Radiologic exam of the chest. Views: 1 view. COMPARISON: CR (CHEST, ) 03/01/2025 2:41 AM FINDINGS: Tubes, catheters and devices: Gastric tube terminates in the stomach. Lungs: Unremarkable. No consolidation. Pleural spaces: Unremarkable. No pleural effusion. No pneumothorax. Heart/Mediastinum: Unremarkable. No cardiomegaly. Bones/joints: Unremarkable. XR/XR chest 1V portable [id number] IMPRESSION: No acute findings.
--- NOTE | 2025-03-01 06:33 | P.HP_ITS ---
Providers/Chief Complaint 2 Admitting Physician: Chandler Mcnamara MD Primary Care Provider: Reggie Lyn MD Chief Complaint: believes bowel blockage History of Present Illness Anju Duffy is a 80 year old female comes in with recurrent bowel obstruction. She is limited from Alzheimer's and thought the date was December 28 could not think of the year. When further questioned she did recall that it is nearing [place] and therefore February but still could not think of the year. Patient tells me that nausea vomiting start about 2 days ago she and her tried diet changes at home but then she stated that she baked some cookies. She is unclear on telling me whether the cookies made her bowel obstruction worse or if it she was baking cookies as a way to treat bowel obstruction. Patient says she has abdominal pain but also says she has been passing gas but no stool. She denies history of colon cancer but admits to bowel obstruction and surgery. She states it was a big problem for about 4 years. Review of old records indicate that patient has had multiple past abdominal surgeries including herniorrhaphy and possibly for diverticular abscess. CT findings of left hemicolectomy. She has had history of mesh placement has very limited diet and tries to stay active walking Review of Systems 2 Narrative: General No fevers chills Neuro patient admits to memory loss with Alzheimer's. GI positive for abdominal pain passing gas but not stool she had nausea vomiting starting 2 days ago. Had multiple bowel surgeries. Medications/Allergies Home Medications ?Medication ?Instructions ?Recorded ?Confirmed ?Last Taken ?Type ondansetron HCl 8 mg tablet 8 mg PO TID PRN Nausea And Vomiting 08/06/24 01/21/25 Unknown History Covid Vaccine #1 ea 11/16/24 01/21/25 Unkn own Rx buspirone 10 mg tablet See Rx Instructions .Route 0 11/20/24 01/21/25 12/22/24 Rx .COMPLEX #360 tabs memantine 5 mg tablet 5 mg PO BID 11/30/24 5 12/22/24 History potassium chloride 10 mEq 10 meq PO DAILY #90 tabs 02/0201/21/25 12/22/24 Rx tablet,extended release (Klor-Con) Prevagen 1 cap PO DAILY 12/23/2401/0912/22/24 History aspirin 325 mg tablet (Erickson 325 mg PO DAILY 12/23/24 01/21/25 12/22/24 History Aspirin) ibuprofen 200 mg tablet (Advil) 400 mg PO Q6H PRN Feve r Or Pain 12/23/24 01/21/25 Unknown History ysxrgqzg-riq-wiupe ac 400 1 tab PO DAILY 12/23/2401/0912/22/24 History mcg-calcium carb 500 mg-vit K1 20 mcg tablet nicotine 14 mg/24 hr daily 1 patch transdermal DAILY P RN 12/28/24 01/21/25 Unknown Rx transdermal patch nicotine withdrawal #15 ea polyethylene glycol 3350 17 gram 17 g PO DAILY #30 ea 12/28/24 01/21/25 Unknown Rx oral powder packet morphine 15 mg immediate release 15 mg PO TID PRN pain 90 days #10 01/05/25 01/21/25 Unknown Rx tablet tabs carvedilol 3.125 mg tablet See Rx Instructions .Route 01/12/25 01/21/25 Unknown Rx .COMPLEX #180 tabs atorvastatin 40 mg tablet 40 mg PO BEDTIME #90 tabs 01/21/25 Unknown Rx sacubitril 24 mg-valsartan 26 mg 1 tab PO BID #180 tab s 01/21/25 01/21/25 Unknown Rx tablet (Entresto) hydroxyzine HCl 25 mg tablet 25 mg PO BID PRN itching #60 tabs 02/17/25 Unknown Rx Allergies Allergy/AdvReac Type Severity Reaction Status Date / Time azithromycin Allergy ALGY-Anaphy Verified 01/21/25 15:31 laxis Latex, Natural Rubber Allergy ALGY-Rash Verified 01/21/25 15:31 olanzapine (From Zyprexa) Allergy hallucinati Verified 01/21/25 15:31 ons/agitate d lorazepam (From Ativan) AdvReac hallucination, Verified 01/21/25 15:31 agitated PFSH Acute 2 PFSH: Medical History (Updated 03/01/25 @ 06:46 by Chandler Mcnamara MD) Left shoulder pain Left upper arm pain after immunization given fall [address] 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 Roberts Hx of abdominal surgery has had total of 13 abd surgeries---most related to bowel obstructions due to adhesions and had complication of bowel laceration with surgery and had infection Hx of appendectomy History of delivery X 1 History of neck surgery History of cholecystectomy H/O hernia repair inguinal; hx of mesh H/O colectomy due to bowel obstruction from adhesions; S/P dilatation of esophageal stricture S/P ANH-BSO endometriosis; no cancer Family History Mother Congestive heart failure (CHF) Rheumatoid arthritis Social History (Updated 03/01/25 @ 06:44 by Chandler Mcnamara MD) Smoking and tobacco/nicotine status: current every day tobacco/nicotine user cigarettes Packs smoked per day: 0.75 Alcohol intake: never Substance/Drug Use: never Additional social history: Patient states she wants DO NOT RESUSCITATE as discussed with Chandler Mcnamara MD on 03/01/2025. 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 Upon awakening she is alert talkative very pleasant. She is repetitive on her stories and cannot remember specifics. She is aware of her memory loss. CV regular rate and rhythm Lungs clear to auscultation bilaterally Abdomen positive bowel tones soft diffuse tenderness no rebound tenderness Calves no tenderness cords pretibial edema Radial pulses 2+ and dorsal pedal pulses 2+ Oropharynx Mallampati 1 can see the NG tube in the posterior pharynx no exudate Mentation alert and oriented to person place but not date. She is a very poor historian Data 03/01/25 02:53 03/01/25 02:53 A&P Assessment and plan 1. Partial bowel obstruction: CT scan shows dilated bowel up to 4.5 cm with obstruction likely from adhesions adjacent to that anatomic suture line in the right lower abdomen. Patient has had multiple episodes of bowel obstruction in the past relieved by NG tube suction sometimes requiring Gastrografin test. She has not had surgery in at least 4 years 2. Chronic constipation: Continue with stool softeners MiraLAX or lactulose post resolution of her obstruction 3. Tobacco abuse: Patient smokes half pack per day and will be offered a nicotine patch PDMP PDMP Reviewed: Not Reviewed Attestations 2 Medical Necessity Statement*: Patient is admitted to the hospital with a bowel obstruction and expected to require greater than 2 midnights Coding Level of Care Code Acute Code for Chg Fwd Diagnoses Partial bowel obstruction K56.600 Chronic constipation K59.09 Tobacco abuse Z72.0 Time Spent (min) 57
[2025-03-01 07:21] LABS: Magnesium 1.8 mg/dL (1.7-2.3)
[2025-03-01 07:25] LABS: Glucose Urine UA Negative (Normal); Nitrate Urine Negative (Negative); Specific Gravity, Urine 1.014 (1.005-1.030)
[2025-03-01 07:27] LABS: Add Urine Microscopic? YES
[2025-03-01] MEDS: pantoprazole 40 mg SDV IVP (08:36)
[2025-03-01] MEDS: metoprolol tartrate 1 mg/1 mL SDV 5 mL 2.5 MG IVP (08:36)
--- NOTE | 2025-03-01 16:11 | P.PN_ITS ---
Subjective 2 Subjective: Anju Duffy is a 80 year old female comes in with recurrent bowel obstruction. She is limited from Alzheimer's and thought the date was December 28 could not think of the year. When further questioned she did recall that it is nearing [place] and therefore February but still could not think of the year. Patient tells me that nausea vomiting start about 2 days ago she and her tried diet changes at home but then she stated that she baked some cookies. She is unclear on telling me whether the cookies made her bowel obstruction worse or if it she was baking cookies as a way to treat bowel obstruction. Patient says she has abdominal pain but also says she has been passing gas but no stool. She denies history of colon cancer but admits to bowel obstruction and surgery. She states it was a big problem for about 4 years. Review of old records indicate that patient has had multiple past abdominal surgeries including herniorrhaphy and possibly for diverticular abscess. CT findings of left hemicolectomy. She has had history of mesh placement has very limited diet and tries to stay active walking Patient resting comfortably at time of checkup this afternoon. Bill at bedside, very supportive. Today, we talked extensively about her current status including her recurrent inpatient stays for small bowel obstruction. Patient and reports that she has lost weight throughout these surgeries and stays but maintains around 122 pounds. Years ago, she began having issues after surgeries for endometriosis and has since had multiple adhesions and resections as well as stoma and fistula complicated by diverticulitis, flesh eating bacteria, wound vacs, drains, staph infection, and bowel punctures secondary to her complex stomach wall/bowel/lining. They report that a bowel regimen with MiraLAX and mag citrate were suggested but because she spends 2 to 3 days in the bathroom after this she is reluctant to do it regularly. They request a dietitian that can help them with her caloric intake/metabolic needs and list out what they can/cannot have. They report they have by travel and air taken out vegetables from her diet and she can tolerate certain fishlike [place] along with soft starches like potatoes and spaghetti. Case management [place] is present at bedside was able to provide some resources for hospice at home. Family reports patient has a Medicare insurance health plan including a supplemental medigap F plan. Today's new plan is to pause NG to suction for 2 hours and see if she can tolerate mag citrate through a straw. She will also have a dietary consult ordered and Chloraseptic for her sore throat. Discharge planning for 03/02/2025. Vitals/I&O/Wt Last Vital Signs Temp 98.2 F 03/01/25 11:02 Pulse 81 03/01/25 11:02 Resp 15 03/01/25 11:02 BP 118/69 03/01/25 11:02 Pulse Ox 95 03/01/25 11:02 O2 Del Method Room Air 03/01/25 11:02 O2 Flow Rate 2 03/01/25 05:01 03/01/25 03/01/25 03/01/25 06:59 14:59 22:59 Output Total 400 / 400 Balance -400 / -400 Weight last 48 hrs Weight 57.652 kg Weight 55.338 kg Data 03/01/25 02:53 03/01/25 02:53 A&P PDMP PDMP Reviewed: Not Reviewed Attestations 2 Medical Necessity Statement*: Patient not expected to be inpatient for greater than 2 midnights. Patient expected to discharge tomorrow. Coding Level of Care Code Acute Code for Chg Fwd
[2025-03-01] MEDS: magnesium citrate Btl 296 mL PO (17:33)
[2025-03-01] MEDS: acetaminophen 1,000 MG/100 ML PIGGYBACK 400 MG IV (23:28)
[2025-03-02 02:00] VITALS: BP 129/89; PULSE 81; RESP 16; TEMP 36.8; O2SAT 94
[2025-03-02 04:57] VITALS: BP 168/78; PULSE 84; RESP 16; TEMP 36.9; O2SAT 97
[2025-03-02] MEDS: pantoprazole 40 mg SDV IVP (06:17)
[2025-03-02] MEDS: morphine 4 mg/mL SDV 1 mL 2 MG IVP (06:31)
[2025-03-02 06:33] LABS: Anion Gap 14.6 (5-19); Blood Urea Nitrogen 9 mg/dL (8-23); Calcium 8.8 mg/dL (8.5-10.5); Carbon Dioxide 26 mmol/L (22-29); Chloride 101 mmol/L (98-107); Glucose 113 mg/dL (65-115); Osmolality Calculated 285 mOsm/kg (285-295); Potassium 3.6 mmol/L (3.5-5.1); Sodium 138 mmol/L (136-145)
[2025-03-02 07:12] VITALS: BP 153/71; PULSE 75; RESP 18; TEMP 36.8; O2SAT 96
--- NOTE | 2025-03-02 08:00 | XR_ITS ---
WS: [id number] Portable AP upright chest, 03/02/2025 Clinical Data: Follow-up bowel obstruction Comparison: Portable chest, 03/01/2025 Findings: No nodules, masses or effusions are seen. The heart is normal. The pulmonary vascularity is not increased. No pneumonia or pneumothorax is seen. The oral gastric tube still ends in the fundus of the stomach. The aortic arch shows calcification. Monitor leads are on the chest wall. XR/XR chest 1V portable [id number] Impression: Atherosclerosis.
--- NOTE | 2025-03-02 10:31 | PM.DCS ---
Discharge Providers Date of Admission: 03/01/25 05:03 Date of Discharge: March 02, 2025 Attending Provider at Admission: Chandler Mcnamara MD Attending Provider at Discharge: ALLAN Ferris, ALLERGY PHYSICIAN Primary Care Provider: Reggie Lyn MD Diagnoses at Discharge Discharge Diagnosis 1. Partial bowel obstruction: Details from hospital stay: CT scan shows dilated bowel up to 4.5 cm with obstruction likely from adhesions adjacent to that anatomic suture line in the right lower abdomen. Patient has had multiple episodes of bowel obstruction in the past relieved by NG tube suction sometimes requiring Gastrografin test. She has not had surgery in at least 4 years Extensive family meeting on 03/01/2025 about readmission risks and dietary management to prevent subsequent SBO and complications Dietary consult outpatient planning for long-term success and readmission rate reductionCase management involved in helping patient set up [facility] at home consultation. 2. Chronic constipation: Details from hospital stay: Continue with stool softeners MiraLAX or lactulose post resolution of her obstruction Mag citrate yesterday Dietary consult outpatient planning 3. Tobacco abuse: Details from hospital stay: Patient smokes half pack per day Cessation education Nicotine patch offered Reason for Visit Reason for Visit: believes bowel blockage Hospital Course Hospital Course Anju Duffy is a 80 year old female comes in with recurrent bowel obstruction. She is limited from Alzheimer's and thought the date was December 28 could not think of the year. When further questioned she did recall that it is nearing [place] and therefore February but still could not think of the year. Patient tells me that nausea vomiting start about 2 days ago she and her tried diet changes at home but then she stated that she baked some cookies. She is unclear on telling me whether the cookies made her bowel obstruction worse or if it she was baking cookies as a way to treat bowel obstruction. Patient says she has abdominal pain but also says she has been passing gas but no stool. She denies history of colon cancer but admits to bowel obstruction and surgery. She states it was a big problem for about 4 years. Review of old records indicate that patient has had multiple past abdominal surgeries including herniorrhaphy and possibly for diverticular abscess. CT findings of left hemicolectomy. She has had history of mesh placement has very limited diet and tries to stay active walking Afternoon check-in 03/01/2025; patient resting comfortably at time of checkup this afternoon. Bill at bedside, very supportive. Today, we talked extensively about her current status including her recurrent inpatient stays for small bowel obstruction. Patient and reports that she has lost weight throughout these surgeries and stays but maintains around 122 pounds. Years ago, she began having issues after surgeries for endometriosis and has since had multiple adhesions and resections as well as stoma and fistula complicated by diverticulitis, flesh eating bacteria, wound vacs, drains, staph infection, and bowel punctures secondary to her complex stomach wall/bowel/lining. They report that a bowel regimen with MiraLAX and mag citrate were suggested but because she spends 2 to 3 days in the bathroom after this she is reluctant to do it regularly. They request a dietitian that can help them with her caloric intake/metabolic needs and list out what they can/cannot have. They report they have by travel and air taken out vegetables from her diet and she can tolerate certain fishlike [place] along with soft starches like potatoes and spaghetti. Case management [place] present at bedside was able to provide some resources for hospice at home. Family reports patient has a Medicare insurance health plan including a supplemental medigap F plan. Today's new plan is to pause NG to suction for 2 hours and see if she can tolerate mag citrate through a straw. She will also have a dietary consult ordered and Chloraseptic for her sore throat. Discharge planning for 03/02/2025. 03/02/25: Patient sitting up in bed but resting at time of interview.? NG tube present.? Dietary consult inpatient modified to be handled by outpatient hospice at home consult with [facility]. ?Case management very helpful in educating patient on readmission and transitions in care.? Patient discharging this morning to home with these new resources and support. Physical Exam Narrative: Alert, pleasant, poor memory and poor historian CV regular rate and rhythm Lungs clear to auscultation bilaterally Abdomen positive bowel tones soft diffuse tenderness no rebound tenderness Calves no tenderness cords pretibial edema Radial pulses 2+ and dorsal pedal pulses 2+ Discharge Data Studies Completed and Pending Completed Studies During Hospitalization Category Date Time Status CT abdomen pelvis wo con [id number] Stat Cat Scan 03/01/25 02:24 Completed CXRP [XR chest 1V portable [id number]] Stat Exams 03/01/25 02:25 Completed XR chest 1V portable [id number] Routine Exams 03/02/25 08:00 Completed XR chest 1V portable [id number] Stat Exams 03/01/25 04:32 Completed Pending at discharge Category Date Time Status Basic Metabolic Panel AM LABS Lab 03/03/25 04:00 Ordered Basic Metabolic Panel AM LABS Lab 03/04/25 04:00 Ordered Urine Culture Stat Lab 03/01/25 06:57 Results Radiology Impressions Abdomen/Pelvis CT 03/01/25 02:24 IMPRESSION: 1. Dilated small bowel measuring up to 4.5 cm, concerning for bowel obstruction. Obstruction is likely from adhesions adjacent to the anastomotic suture line in the right lower quadrant. Surgical evaluation recommended. 2. Pneumobilia. Dilated common bile duct measures 2.6 cm. 3. Cholecystectomy clips. 4. No nephrolithiasis, hydronephrosis, or obstructive uropathy. COMMENTS: Consistent with the [place] [employer]'s Incidental Findings Committee white paper (J Am Patricia Radiol 2018): Any incidental renal lesion less than 1 cm or classified as too small to characterize, or any incidental cystic renal lesion characterized as simple-appearing, is likely benign. No follow-up imaging is recommended for these lesions per consensus recommendations based on imaging criteria. Chest X-Ray 03/02/25 08:00 Impression: Atherosclerosis. Laboratory Results WBC 13.47 10^3/uL (3.29-11.43) H 03/01/25 02:53 RBC 5.68 10^6/uL (3.85-5.65) H 03/01/25 02:53 Hgb 17.30 g/dL (11.27-16.99) H 03/01/25 02:53 Hct 51.3 % (36-47) H 03/01/25 02:53 MCV 90.3 fl (85-98) 03/01/25 02:53 MCH 30.5 pg (27-33) 03/01/25 02:53 MCHC 33.7 g/dL (30-55) 03/01/25 02:53 RDW 12.8 % (12.1-15.1) 03/01/25 02:53 Plt Count 218 10^3/cmm (157-399) 03/01/25 02:53 MPV 10.5 fL (7.4-10.4) H 03/01/25 02:53 Neut % (Auto) 66.8 % 03/01/25 02:53 Lymph % (Auto) 26.9 % 03/01/25 02:53 [place] % (Auto) 4.2 % 03/01/25 02:53 Eos % (Auto) 1.3 % 03/01/25 02:53 Baso % (Auto) 0.4 % 03/01/25 02:53 Neut # (Auto) 9.02 10^3/uL (1.8-7.7) H 03/01/25 02:53 Lymph # (Auto) 3.6 10^3/uL (0.8-4.8) 03/01/25 02:53 [place] # (Auto) 0.6 10^3/uL (0.2-0.9) 03/01/25 02:53 Eos # (Auto) 0.2 10^3/uL (0.0-0.8) 03/01/25 02:53 Baso # (Auto) 0.1 10^3/uL (0.0-0.1) 03/01/25 02:53 Nucleated RBC % (auto) 0 % 03/01/25 02:53 Nucleated RBCs # 0.0 /100WBC 03/01/25 02:53 Sodium 138 mmol/L (136-145) 03/02/25 05:26 Potassium 3.6 mmol/L (3.5-5.1) 03/02/25 05:26 Chloride 101 mmol/L (98-107) 03/02/25 05:26 Carbon Dioxide 26 mmol/L (22-29) 03/02/25 05:26 Anion Gap 14.6 (5-19) 03/02/25 05:26 BUN 9 mg/dL (8-23) 03/02/25 05:26 Creatinine 0.5 mg/dL (0.5-0.9) 03/02/25 05:26 GFR Calculation Not Reportable 03/02/25 05:26 Glucose 113 mg/dL (65-115) 03/02/25 05:26 Calculated Osmolality 285 mOsm/kg (285-295) 03/02/25 05:26 Lactic Acid 1.9 mmol/L (0.5-2.2) 03/01/25 02:53 Calcium 8.8 mg/dL (8.5-10.5) 03/02/25 05:26 Phosphorus 3.9 mg/dL (2.5-4.5) 03/01/25 02:53 Magnesium 1.8 mg/dL (1.7-2.3) 03/01/25 04:04 Total Bilirubin 1.0 mg/dL (0.15-1.2) 03/01/25 02:53 AST 40 U/L (0-32) H 03/01/25 02:53 ALT 24 U/L (0-33) 03/01/25 02:53 Alkaline Phosphatase 79 U/L (35-105) 03/01/25 02:53 Troponin T Baseline 21 ng/L (0-10) H 03/01/25 02:53 Troponin T 60 Minute 60.79 ng/L (0-10) H 03/01/25 04:04 Delta Troponin T 39.79 ABS# (0-10) H* 03/01/25 04:04 C-Reactive Protein 3.0 mg/L (0.0-4.9) 03/01/25 02:53 NT-Pro-B Natriuret Pep 186 pg/mL (0-450) 03/01/25 02:53 Total Protein 7.1 g/dL (6.6-8.7) 03/01/25 02:53 Albumin 5.0 g/dL (3.5-5.2) 03/01/25 02:53 Globulin 2.1 g/dL (1.3-4.6) 03/01/25 02:53 Lipase 220 U/L (13-60) H 03/01/25 02:53 Urine Color Yellow (Yellow) 03/01/25 06:57 Urine Appearance Clear (CLEAR) 03/01/25 06:57 Urine pH 6.0 (5-7) 03/01/25 06:57 Ur Specific [place] 1.014 (1.005-1.030) 03/01/25 06:57 Urine Protein 1+ (Negative) A 03/01/25 06:57 Urine Glucose (UA) Negative (Normal) 03/01/25 06:57 Urine Ketones Negative (Negative) 03/01/25 06:57 Urine Blood 2+ (Negative) A 03/01/25 06:57 Urine Nitrate Negative (Negative) 03/01/25 06:57 Urine Bilirubin Negative (Negative) 03/01/25 06:57 Urine Urobilinogen 0.2 mg/dL (Negative) 03/01/25 06:57 Ur Leukocyte Esterase Negative (Negative) 03/01/25 06:57 Urine RBC 11-20 /hpf (0-2) H 03/01/25 06:57 Urine WBC 0-5 /hpf (0-5) 03/01/25 06:57 Ur Squamous Epith Cells 0-5 /hpf (0-5) 03/01/25 06:57 Amorphous Sediment Not Reportable 03/01/25 06:57 Urine Bacteria None seen /hpf (NONE) 03/01/25 06:57 Hyaline Casts 2.46 /lpf 03/01/25 06:57 Vitals Last Vital Signs Temp 98.2 F 03/02/25 07:12 Pulse 75 03/02/25 07:12 Resp 18 03/02/25 07:12 BP 153/71 03/02/25 07:12 Pulse Ox 96 03/02/25 07:12 O2 Del Method Room Air 03/02/25 07:12 O2 Flow Rate 2 03/01/25 05:01 Discharge Plan Discharge Patient Disposition: Home Condition: Stable Prescriptions: Continued memantine 5 mg tablet 5 mg PO BID morphine 15 mg tablet 15 mg PO TID PRN (Reason: pain) 90 Days Qty: 10 0RF atorvastatin 40 mg tablet 40 mg PO BEDTIME Qty: 90 3RF sacubitril-valsartan [Entresto] 24-26 mg tablet 1 tab PO BID Qty: 180 3RF (DME) Covid Vaccine See Rx Instructions .ROUTE .MEDSUPPLY Qty: 1 0RF Rx Instructions: As directed potassium chloride [Klor-Con 10] 10 mEq tablet extended release 10 meq PO DAILY Qty: 90 3RF hydroxyzine HCl 25 mg tablet 25 mg PO BID PRN (Reason: itching) Qty: 60 11RF nitroglycerin 0.4 mg tablet, sublingual See Rx Instructions .ROUTE .COMPLEX Rx Instructions: DISSOLVE ONE TABLET UNDER TONGUE NEEDED FOR CHEST PAIN EVERY 5 MINUTES. carvedilol 3.125 mg tablet 3.125 mg PO BID Rx Instructions: MUST TAKE WITH A MEAL/FOOD buspirone 10 mg tablet 20 mg PO BID PRN (Reason: Anxiety) aspirin [Erickson Aspirin] 325 mg Tablet 325 mg PO DAILY ibuprofen [Advil] 200 mg Tablet 400 mg PO Q6H PRN (Reason: Fever Or Pain) qq-mrv-llwos-calcium carb-K1 400 mcg-500 mg calcium-20 mcg Tablet 1 tab PO DAILY Prevagen 1 cap PO DAILY polyethylene glycol 3350 17 gram Powder In Packet 17 g PO DAILY Qty: 30 0RF Rx Instructions: Hold for loose stool nicotine 14 mg/24 hr Patch 24 Hour 1 patch transdermal DAILY PRN (Reason: nicotine withdrawal) Qty: 15 0RF Discharge Order = DC NOW: Discharge Order (Routine); Ordered 03/02/25 Ordered By: Goldie Rodriguez Referrals: Reggie Lyn MD [Primary Care Provider, Family Practice] - 4-7 days Discharge Diet: Advance as tolerated and GI Soft Discharge Activity: Resume usual activity Patient Instructions: Abdominal Pain (ED), Opioid Safety, Patient Portal & Leann Instructions Activity Restrictions/Additional Instructions: Follow-up with your primary care provider and with the [facility] ([facility] [place] resources discussed with case management during your stay. Dietary education was done and patient however more extensive information will be provided with the outpatient consult to [facility] if symptoms return or worsen please return to your nearest emergency department for further evaluation and treatment. Discharge Attestations Time Spent in Discharge Care*: greater than 30 min Status at Discharge: Cognitive status at discharge: mildly impaired cognition, Behavioral status at discharge: cooperative, Quality Metrics Clinical Quality Measures [ No reported AMI, CVA or VTE this stay] Coding Level of Care Code 53873 Diagnoses Partial bowel obstruction K56.51 Intestinal obstruction type: obstruction due to adhesions Chronic constipation K59.09 Tobacco abuse Z72.0
[2025-03-02 11:25] VITALS: BP 152/79; PULSE 86; RESP 18; TEMP 36.8; O2SAT 97
== END 2025-03-02 12:50 | disposition home or self-care (01) | DRG 389 ==
LOC: ER 05:18 → MEDSURG 05:22
PROVIDERS: Admitting Provider Internal Medicine; Emergency Provider Student in an Organized Health Care Education/Training Program; PCP Family Medicine; Visit Provider Clinical Nurse Specialist Acute Care
DX: K56.51 Intestinal adhesions [bands], with partial obstruction (principal); F02.83 Dementia in other diseases classified elsewhere, unspecified severity, with mood disturbance; K59.09 Other constipation; F17.210 Nicotine dependence, cigarettes, uncomplicated; G30.9 Alzheimer's disease, unspecified; I10 Essential (primary) hypertension; I25.10 Atherosclerotic heart disease of native coronary artery without angina pectoris; I48.91 Unspecified atrial fibrillation; Z66 Do not resuscitate; Z79.82 Long term (current) use of aspirin; Z90.49 Acquired absence of other specified parts of digestive tract; Z86.14 Personal history of Methicillin resistant Staphylococcus aureus infection
CPT/HCPCS: 36415; 71045; 74176; 80048; 80053; 81001; 83605; 83690; 83735; 83880; 84100; 84484; 85025; 86140; 87086; 93005; 96372; 96374; 96375; 99285; J0131; J1171; J1650; J1885; J2270; J2405; J2470; J2765; J3490; J7030; J7120; J9999